=== PATIENT | female | born 1985 | race Caucasian/White ===

== ENCOUNTER 2021-10-18 08:49 | Outpatient (CLI) | payer BC, SELFPAY ==
[2021-10-19 08:12] LABS: SARS PCR* Negative SARS-CoV-2 (Negative)
== END 2021-10-18 08:50 | disposition home or self-care (01) ==
LOC: FBOREF 08:49
PROVIDERS: PCP Family Medicine; Visit Provider Family Medicine
DX: Z20.822 Contact with and (suspected) exposure to COVID-19 (principal); R05.9 Cough, unspecified; R52 Pain, unspecified; R53.83 Other fatigue
CPT/HCPCS: 87635

== ENCOUNTER 2021-11-28 08:32 | Emergency (ER) | payer BC, SELFPAY ==
[2021-11-28 08:37] VITALS: BP 116/76; PULSE 97; RESP 18; TEMP 36.8; O2SAT 10; BMI 20.6
--- NOTE | 2021-11-28 08:40 | CRLHL7_ITS ---
For Patients: As a result of the Century Cures Act, medical imaging exams and procedure reports are released immediately into your electronic medical record. You may view this report before your referring provider. If you have questions, please contact your health care provider. Indication: Bleeding in the setting of a first-trimester Technique: Sonography was performed. The study was performed transabdominally. Comparison: None Findings: There is a single live intrauterine gestation. Based on a crown-rump length measurement of 7 millimeters, the mean gestational age is 6 weeks and 4 days. Estimated date of delivery is 07/20/2022. heart rate is 120 beats per minute which is normal for this gestational age. A yolk sac is noted measuring 2.6 millimeters. The gestational sac size is 2 centimeters average. There are 2 subchorionic hemorrhages. One measures 2.1 x 0.7 x 2.4 centimeters and another measures 1.0 x 0.7 x 1.8 centimeters. The right ovary measures 4.7 x 2.6 x 2.7 centimeters. The left ovary measures 4.2 x 3.2 x 3.1 centimeters per there is a corpus luteum cyst of in the right ovary measuring 2.4 x 2.7 x 2.6 centimeters. Impression: 1. There is a single living intrauterine at 6 weeks and 4 days with an ultrasound estimated date of delivery of 07/20/2022. 2. There are 2 subchorionic hemorrhages/implantation bleeds. One measures 2.1 x 0.7 x 2.4 centimeters and another measures 1.0 x 0.7 x 1.8 centimeters. 3. Corpus luteum cyst of in the right ovary measuring 2.4 x 2.7 x 2.6 centimeters Dictated by Tay Duke MD @ 11/28/2021 10:04:18 AM (Electronically Signed)
--- NOTE | 2021-11-28 08:43 | ED.GENADULT ---
HPI - General Adult General Time Seen by Provider: 08:44 Date Seen: 11/28/21 Chief complaint: Vaginal Bleeding Stated complaint: 7 Weeks /bleeding Time Seen by Provider: 11/28/21 08:39 Source: patient Mode of arrival: ambulatory Limitations: no limitations History of Present Illness HPI narrative: 36-year-old at 7+3 weeks by last menstrual period of October 07, 2021 who presents today with vaginal bleeding. Positive test 2 weeks ago, 1st visit scheduled for next week, no confirmed intrauterine at this point. Started having bleeding last night, less than a period and described as spotting, with more blood and clots when she sits. Some lower abdominal cramping as well. She also describes upper abdominal pain which is been going on for 2 weeks. This is been fairly constant, worse with eating and drinking. She has taken Tums and Pepto for this with no improvement. No fever chills, no vomiting, no vaginal discharge other than her bleeding, urinary symptoms. Related Data Home Medications Medication Instructions Recorded Confirmed adapalene 0.3 % topical gel with 1 applic topical QPM 09/20/21 11/28/21 pump (Differin) tizanidine 4 mg capsule 4 mg PO .QHS PRN 09/20/21 11/28/21 tramadol 50 mg tablet 50 mg PO Q6H PRN 09/20/21 11/28/21 tretinoin 0.025 % topical gel 1 applic topical .Bedtime 09/30/21 11/28/21 clindamycin phosphate 1 % topical 1 applic topical 10/18/21 11/16/21 solution vitamin 1 tab PO QDAY 10/18/21 11/28/21 no.76-iron,carbonyl 29 mg iron-folic acid 1 mg tablet (Prenatabs Rx) gabapentin 600 mg tablet 1,200 mg PO TID 11/16/21 11/28/21 Previous Rx's Medication Instructions Recorded bupropion HCl 150 mg 24 hr tablet, 150 mg PO QAM #30 tabs 10/18/21 extended release (Wellbutrin XL) bupropion HCl 300 mg 24 hr tablet, 300 mg PO QAM #30 tabs 10/18/21 extended release dextroamphetamine-amphetamine 15 15 mg PO QDAY #30 tabs 10/18/21 mg tablet (Adderall) duloxetine 60 mg capsule,delayed 60 mg PO QDAY #30 caps 10/18/21 release (Cymbalta) lisdexamfetamine 70 mg capsule 70 mg PO QAM #30 caps 10/18/21 (Vyvanse) lorazepam 1 mg tablet 1 mg PO BID PRN anxiety #60 tabs 10/18/21 folic acid 1 mg tablet 4 mg PO QDAY #120 tabs 11/16/21 sucralfate 1 gram tablet (Carafate) 1 g PO QID #60 tabs 11/28/21 Allergies Allergy/AdvReac Type Severity Reaction Status Date / Time morphine Allergy Unknown Verified 11/28/21 08:42 Review of Systems Status of ROS: Reports: 10 or more systems reviewed and unremarkable except as noted in History and below [employer] [facility] Medical History (Updated 11/28/21 @ 10:25 by James Gomez MD) ADHD, predominantly inattentive type Borderline personality disorder Chronic low back pain Generalized anxiety disorder (06/25/15) History of abnormal cervical Papanicolaou smear (2009) History of alcohol dependence 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) Rosacea Suicide attempt by multiple drug overdose (07/22/15) Surgical History (Updated 09/30/21 @ 13:00 by Gretta Sampson) History of 2 sections History of dilation and curettage (2003) History of lumbar discectomy (01/07/18) History of lumbar fusion (12/18/18) Status post epidural steroid injection Status post lumbar spinal fusion Family History (Updated 09/30/21 @ 13:03 by Gretta Sampson) Mother Breast cancer Type 2 diabetes mellitus Family/Other Colon cancer Other Clotting disorder Factor V deficiency Social History (Updated 10/18/21 @ 19:55 by Luis A Lewis MD) Narrative: Single, 2 kids, senior living, non-smoker, sober, former alcoholic Smoking Status: Never smoker Do you use any of these nicotine containing products: None Second hand tobacco smoke exposure: No How often do you have a drink containing alcohol: never How often do you have six or more drinks on one occasion: Never AUDIT-C Alcohol total score: 0 Non-prescribed substance use: denies use Little interest or pleasure in doing things: nearly every day Feeling down, depressed, or hopeless: more than half the days service: No Exam Narrative: Exam Narrative: General: Well-developed and well-nourished, no acute distress Head: Atraumatic and normocephalic Eyes: Pupils are equal reactive, extraocular motions intact, conjunctiva clear ENT: External nose and ears are normal, posterior pharynx without erythema or exudate Neck: No midline cervical tenderness, full spontaneous range of motion the neck, trachea midline, no adenopathy Heart: Regular rate and rhythm no murmurs or thrills Lungs: Clear to auscultation bilaterally without wheezes or crackles Abdomen: Epigastric and right upper quadrant tenderness, no pelvic or lower abdominal tenderness Musculoskeletal: No tenderness, deformity, or edema Neurologic: Awake, alert, and oriented x3, no gross focal neurologic deficits, cranial nerves intact as tested Psych: Mood and affect are appropriate Skin: No rashes Const: Vital Signs, click to edit/add: Vital Signs - 24 hr 11/28/21 08:37 11/28/21 09:17 Temperature 98.3 F Pulse Rate [Right Pulse Oximeter] 97 87 Respiratory Rate 18 Blood Pressure [Ri ght Upper Arm] 116/76 120/78 Pulse Oximetry 10 L 100 Oxygen Delivery Me thod Room Air Room Air Course Course Hospital Course: Patient seen and examined, prior records are reviewed. Differential diagnosis includes but not limited gastritis, cholelithiasis, cholecystitis, biliary colic, pancreatitis, miscarriage, subchorionic hemorrhage. Meds with 2 weeks of upper abdominal pain, worse with eating, and found to have epigastric and right upper quadrant tenderness on exam. This could represent gastritis, gastric ulcer, or biliary source. Labs and ultrasound ordered. Additionally, abdominal cramping and bleeding trimester. Patient is vitally stable with no lightheadedness or dyspnea to suggest severe anemia. Description of bleeding is spotting with passing of clots on the toilet. Labs and OB US ordered. Reevaluation(s) Reevaluation #1: Quantitative hCG is pending, CBCs reassuring. Per food science technician, intrauterine with cardiac motion, to areas of subchorionic hemorrhage noted. Right upper quadrant ultrasound is normal. Lipase and hepatic panel are normal. Patient will be discharged with expectant management instructions for threatened miscarriage, also be started on Carafate for GI complaints, follow-up with OB provider in 48 hours. Time: 09:49 Reevaluation #2: Spoke with blood bank, patient's blood type is A negative. Discussed care with Dr. Carreon advanced research programs director who agrees with plan for RhoGAM. Patient has a follow-up appointment in 1 week and she should keep that. Discussed risk of miscarriage, ongoing bleeding, and return to emergency department instructions. Patient is stable for discharge. Time: 10:18 Vital Signs Vital signs: Initial Vital Signs Temperature 98.3 F 11/28/21 08:37 Temperature Source Temporal Artery Scan 11/28/21 08:37 Pulse Rate 97 11/28/21 08:37 Respiratory Rate 18 11/28/21 08:37 Blood Pressure 116/76 11/28/21 08:37 Blood Pressure Mean 89 11/28/21 08:37 Blood Pressure Position Sitting 11/28/21 08:37 Pulse Oximetry 10 L 11/28/21 08:37 Oxygen Delivery Method 11/28/21 08:37 Vital Signs Temperature 98.3 F 11/28/21 08:37 Pulse Rate 97 11/28/21 08:37 Respiratory Rate 18 11/28/21 08:37 Blood Pressure 116/76 11/28/21 08:37 Pulse Oximetry 10 L 11/28/21 08:37 Oxygen Delivery Method 11/28/21 08:37 Temperature 98.3 F 11/28/21 08:37 Pulse Rate 87 11/28/21 09:17 Respiratory Rate 18 11/28/21 08:37 Blood Pressure 120/78 11/28/21 09:17 Pulse Oximetry 100 11/28/21 09:17 Oxygen Delivery Method 11/28/21 09:17 Medical Decision Making Medical Records Medical records reviewed: Yes I reviewed the patient's medical records Lab Data Lab results reviewed: Yes I reviewed the patient's lab results Labs: Lab Results 11/28/21 11/28/21 11/28/21 Range/Units 08:57 08:57 08:57 WBC 8.31 (4.50-11.00) K/uL RBC 4.21 (4.00-5.20) m/uL Hgb 12.6 (12.0-16.0) gm/dL Hct 36.7 (33.0-51.0) % MCV 87 (80-100) fL MCH 30 (26-34) pg MCHC 34 (32-36) gm/dL RDW Coeff of Tien 12.1 (11.5-15.5) % Plt Count 252 (140-440) K/uL Neut % (Auto) 74.1 H (42.0-72.0) % Lymph % (Auto) 19.4 L (20-44) % [place] % (Auto) 5.3 (0.0-11.0) % Eos % (Auto) 0.7 (0.0-7.0) % Baso % (Auto) 0.4 (0.0-3.0) % Neut # (Auto) 6.20 (1.7-7.0) K/uL Lymph # (Auto) 1.60 (0.90-2.90) K/uL [place] # (Auto) 0.40 (0.00-0.90) K/UL Eos # (Auto) 0.06 (0.00-0.50) K/uL Baso # (Auto) 0.03 (0.00-0.30) K/uL Abs Immat Gran (auto) 0.01 (0.00-0.30) K/uL Total Bilirubin (0.1-1.5) mg/dL Direct Bilirubin (0.0-0.5) mg/dL AST (12-35) U/L ALT (4-35) U/L Alkaline Phosphatase (40-150) U/L Total Protein (6.0-8.3) g/dL Albumin (3.3-5.0) g/dL Lipase (23-300) U/L HCG, Quant 12011.00 mIU/mL Blood Type A Negative 11/28/21 Range/Units 08:57 WBC (4.50-11.00) K/uL RBC (4.00-5.20) m/uL Hgb (12.0-16.0) gm/dL Hct (33.0-51.0) % MCV (80-100) fL MCH (26-34) pg MCHC (32-36) gm/dL RDW Coeff of Tien (11.5-15.5) % Plt Count (140-440) K/uL Neut % (Auto) (42.0-72.0) % Lymph % (Auto) (20-44) % [place] % (Auto) (0.0-11.0) % Eos % (Auto) (0.0-7.0) % Baso % (Auto) (0.0-3.0) % Neut # (Auto) (1.7-7.0) K/uL Lymph # (Auto) (0.90-2.90) K/uL [place] # (Auto) (0.00-0.90) K/UL Eos # (Auto) (0.00-0.50) K/uL Baso # (Auto) (0.00-0.30) K/uL Abs Immat Gran (auto) (0.00-0.30) K/uL Total Bilirubin 0.3 (0.1-1.5) mg/dL Direct Bilirubin 0.0 (0.0-0.5) mg/dL AST 21 (12-35) U/L ALT 15 (4-35) U/L Alkaline Phosphatase 46 (40-150) U/L Total Protein 7.1 (6.0-8.3) g/dL Albumin 4.6 (3.3-5.0) g/dL Lipase 42 (23-300) U/L HCG, Quant mIU/mL Blood Type Imaging Data US OB: Attestation: I have reviewed the pertinent imaging results. My impression: Intrauterine Radiologist's impression: 1. There is a single living intrauterine at 6 weeks and 4 days with an ultrasound estimated date of delivery of 07/20/2022. 2. There are 2 subchorionic hemorrhages/implantation bleeds. One measures 2.1 x 0.7 x 2.4 centimeters and another measures 1.0 x 0.7 x 1.8 centimeters. 3. Corpus luteum cyst of in the right ovary measuring 2.4 x 2.7 x 2.6 centimeters US - abdomen: Attestation: I have reviewed the pertinent imaging results. Radiologist's impression: Impression: Normal examination Discharge Plan Discharge Clinical Impression: Grand multiparity, Intrauterine , Subchorionic hematoma in first trimester, Gastritis Patient Disposition: Home, Self-Care Condition: Stable Instructions: Gastritis (DC), Subchorionic Hemorrhage (ED), at 7 to 10 Weeks (ED) Additional Instructions: Warm packs the abdomen as needed for discomfort. You are likely to continue have some bleeding. Keep your appointment on December 05 for follow-up. Activity Level: No Restrictions Discharge Diet: Regular Prescriptions: New sucralfate [Carafate] 1 gram tablet 1 g PO QID Qty: 60 0RF No Action Prenatabs Rx 29 mg iron- 1 mg tablet 1 tab PO QDAY clindamycin phosphate 1 % solution 1 applic topical lorazepam 1 mg tablet 1 mg PO BID PRN (Reason: anxiety) Qty: 60 0RF bupropion HCl 300 mg tablet extended release 24 hr 300 mg PO QAM Qty: 30 5RF Rx Instructions: Total dose 450 mg daily bupropion HCl [Wellbutrin XL] 150 mg tablet extended release 24 hr 150 mg PO QAM Qty: 30 5RF Rx Instructions: Total dose 450 mg daily Vyvanse 70 mg capsule 70 mg PO QAM Qty: 30 0RF dextroamphetamine-amphetamine [Adderall] 15 mg tablet 15 mg PO QDAY Qty: 30 0RF Rx Instructions: Take at 1 pm duloxetine [Cymbalta] 60 mg capsule,delayed release(DR/EC) 60 mg PO QDAY Qty: 30 5RF tretinoin 0.025 % gel 1 applic topical .Bedtime folic acid 1 mg tablet 4 mg PO QDAY Qty: 120 3RF adapalene [Differin] 0.3 % gel with pump 1 applic topical QPM tramadol 50 mg tablet 50 mg PO Q6H PRN Hold Instructions: PG tizanidine 4 mg capsule 4 mg PO .QHS PRN gabapentin 600 mg tablet 1,200 mg PO TID Rx Instructions: One in the AM, One every PM and One at bedtime Follow Up/Referrals: Luis A Lewis MD [Primary Care Provider] - Stand Alone Forms: [facility] Info Inst[facility]
--- NOTE | 2021-11-28 08:54 | CRLHL7_ITS ---
For Patients: As a result of the Century Cures Act, medical imaging exams and procedure reports are released immediately into your electronic medical record. You may view this report before your referring provider. If you have questions, please contact your health care provider. Indication: Epigastric pain Technique: Sonography of the abdomen was performed limited to the structures discussed below Comparison: No prior studies of this area available for comparison Findings: The liver is normal in size and echogenicity without focal mass. No biliary ductal dilatation. No perihepatic ascites. The gallbladder is normal in appearance. Wall thickness is 1 millimeter. No sonographic Caicedo`s sign. No pericholecystic fluid. No sludge or calculi. The common duct measures 2 millimeters which is normal The pancreas as visualized appears normal. The right kidney was normal in size and appearance measuring 0.6 x 4.2 x 4.9 centimeters. The proximal aorta appears normal Impression: Normal examination Dictated by Tay Duke MD @ 11/28/2021 10:06:17 AM (Electronically Signed)
[2021-11-28 09:02] LABS: Basophils Absolute Auto 0.03 K/uL (0.00-0.30); Basophils Percent Auto 0.4 % (0.0-3.0); Eosinophils Absolute Auto 0.06 K/uL (0.00-0.50); Eosinophils Percent Auto 0.7 % (0.0-7.0); Hematocrit 36.7 % (33.0-51.0); Hemoglobin* 12.6 gm/dL (12.0-16.0); Immature Granulocytes Abs Auto 0.01 K/uL (0.00-0.30); Lymphocytes Percent Auto 19.4 % (20-44); Mean Corpuscular HGB Conc 34 gm/dL (32-36); Mean Corpuscular Hemoglobin 30 pg (26-34); Mean Corpuscular Volume 87 fL (80-100); Monocytes Percent Auto 5.3 % (0.0-11.0); Neutrophils Percent Auto 74.1 % (42.0-72.0); Platelet Count* 252 K/uL (140-440); RDW Coefficient of Variation % 12.1 % (11.5-15.5); Red Blood Count 4.21 m/uL (4.00-5.20); White Blood Count* 8.31 K/uL (4.50-11.00)
[2021-11-28 09:04] LABS: Slide Review Reflex No
[2021-11-28] MEDS: LACTATED RINGERS 1000 ML 1,000 ML IV (09:12)
--- OUTSIDE RECORDS SUMMARY | 2021-11-28 09:13 | XMS_ITS | Encounter Summary ---
:[address] [facility] Address [address] [place] [address] Care Team Providers Name Role Phone Jana Granda M.D. Primary Care Provider Encounter Details Date Type Department Care Team Description 04/26/2020 Patient Self-Triage [facility] Symptom Width Stripper, Provider Social History Tobacco Use Types Packs/Day Years Used Date Smoking Tobacco: Never Smokeless Tobacco: Never Alcohol Use Standard Drinks/Week Comments Not Currently 3 (1 standard drink = 0.6 oz pure alcoho l) Last use several months ago Alcohol Habits Answer Date Recorded How often do you have a drink containing alcohol? Not asked 01/31/2019 How many drinks containing alcohol do you have on a typical Not asked 01/31/2019 day when you are drinking? How often do you have six or more drinks on one occasion? Ne aurelio 07/19/2018 Social Isolation Answer Date Recorded In a typical week, how many times do you talk on Once a week 11/27/2019 the phone with family, friends, or neighbors? How often do you get together with friends or Once a week 11/27/2019 relatives? How often do you attend sikhism or sikhism Never 01/31/2019 services? Do you belong to any clubs or organizations such as No 01/31/2019 sikhism groups, unions, fraternal or athletic groups, or school groups? How often do you attend meetings of the clubs or Never 01/31/2019 organizations you belong to? Are you now , , , , Living wi th partner 11/27/2019 never or living with a partner? Physical Activity Answer Date Recorded On average, how many days per week do you engage in moderate to 1 day 11/27/2019 strenuous exercise (like walking fast, running, jogging, dancing, swimming, biking, or other activities that cause a light or heavy sweat)? On average, how many minutes do you engage in exercise at th is 10 min 11/27/2019 level? Stress Answer Date Recorded Do you feel stress - tense, restless, nervous, or To some ex tent 11/27/2019 anxious, or unable to sleep at night because your mind is troubled all the time - these days? Financial Resource Strain Answer Date Recorded How hard is it for you to pay for the very basics like Somew hat hard 11/27/2019 food, housing, medical care, and heating? Intimate Partner Violence Answer Date Recorded Within the last year, have you been afraid of your partner o r No 11/27/2019 ex-partner? Within the last year, have you been humiliated or emotionall y No 11/27/2019 abused in other ways by your partner or ex-partner? Within the last year, have you been kicked, hit, slapped, or No 07/19/2018 otherwise physically hurt by your partner or ex-partner? Within the last year, have you been raped or forced to have any No 07/19/2018 kind of sexual activity by your partner or ex-partner? Food Insecurity Answer Date Recorded Within the past 12 months, you worried that your food would Never true 11/27/2019 run out before you got money to buy more. Within the past 12 months, the food you bought just didn't N ever true 11/27/2019 last and you didn't have money to get more. Transportation Needs Answer Date Recorded In the past 12 months, has lack of transportation kept you f rom No 11/27/2019 medical appointments or from getting medications? In the past 12 months, has lack of transportation kept you f rom No 11/27/2019 meetings, work, or getting things needed for daily living? Education Answer Date Recorded What is the highest level of school you have Some college, n o degree 07/19/2018 completed or the highest degree you have received? 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 PCP - General 03/25/[address] [place], [place] [address] [phone] documented as of this encounter
--- OUTSIDE RECORDS SUMMARY | 2021-11-28 09:13 | XMS_ITS | Encounter Summary ---
:1985 Author Organization [facility] Address [address] [place] [address] Care Team Providers Name Role Phone Marisel Ferrer M.D. Primary Care Provider [phone] Reason for Visit Reason Onset Date Comments Outpatient COVID-19 Testing 01/10/2020 Encounter Details Date Type Department Care Team Description 01/10/2020 External Outreach Department of Cor[facility] Mason Infect ion [facility] Internal Medicine in J, D.O. Respiratory (Primary [place], [place] [address] Dx) [address] [place] [phone] Social History Tobacco Use Types Packs/Day Years [...] 11/27/2019 relatives? How often do you attend congregational or oriental orthodox Never 01/31/2019 services? Do you belong to any clubs or organizations such as No 01/31/2019 congregational groups, unions, fraternal or athletic groups, or [...] to pay for the very basics like Ensight[place] hat hard 11/27/2019 food, housing, medical care, [...] at Date Recorded Female 01/11/2018 2:20 PM BRICK [facility] documented as of this encounter Progress Notes Maria R Sorenson R.N. - 01/10/2020 11:59 AM CST Encounter created for the drive-through COVID-19 testing. K [facility] documented in this encounter Plan of Treatment Not on filedocumented as of this encounter Procedures Procedure Name Priority Date/Time Associated Diagnosis Comme nts SARS CORONAVIRUS-2 Routine 01/10/2020 1:08 PM Infection Upper Results for this RNA, V [facility] Respiratory procedure are i n the results section. documented in this encounter Results SARS Coronavirus-2 RNA, V Symptomatic (01/10/2020 1:08 PM BRICK [facility]) [facility] gist Method Time Signature SARS-CoV-2 Swab, 01/11/2020 [facility] Specimen Nasopharynx 4:26 PM BR[facility] Source SARS CoV-2 Undetected Undetected 01/11/2020 [facility]TO RNA, TMA 4:26 PM [facility] Comment: SARS-CoV-2 RNA absent. This result does not rule out COVID-19 in the patient, as the sensitivity of the test depends o n the timing of the specimen collection and the quality of the specim en. Result should be correlated with patient's history and clinical presentat ion. ----ADDITIONAL INFORMATION---- This test is performed using the Aptima SARS-CoV-2 assay ([employer] which has received Emergency Use Authori zation (EUA) by the U.S. Food and Drug Administration. Fact sheets for this Emergency Use Autho rization (EUA) assay can be found at the following links: For Healthcare Providers: https://www.fd a.gov/media/352698/download For Patients: https://www.fda.gov/media/ 051320/download Specimen Anatomical Collection Method Collection Time Receive d Time (Source) Location / / Volume Laterality Varies 01/10/2020 1:08 PM 0 8:37 (Nasopharynx) [facility] AM BR[facility] Mason D.O. LAB MICROBIOLOGY - GENERAL O RDERABLES Performing Organization Address City/State/ZIP Code Phon e Number [facility] [address] [place] [id number] [place] [address] [address] documented in this encounter Visit Diagnoses Diagnosis Infection Upper Respiratory - Primary documented in this encounter Additional Health Concerns Infection Onset Date Last Indicated Resolved Time COVID19 Pending 01/10/2020 01/10/2020 01/11/2020 4:27 PM BRICK [facility] Assessment Noted Time PHQ-9 Depression Total Score: 16 12/09/2019 10:25 AM C DT documented as of this encounter Care Teams Clinical Education Coordinator Relationship Specialty Start Date End Date Marisel Ferrer M.D. PCP - General Family Medicine 07/11/18 03/24/[address] [id number] documented as of this encounter
--- OUTSIDE RECORDS SUMMARY | 2021-11-28 09:13 | XMS_ITS | Encounter Summary ---
:1985 Author Organization [facility] Address [address] [place] [address] Care Team Providers Name Role Phone Jana Granda M.D. Primary Care Provider Reason for Visit Reason Comments Med Refill Encounter Details Date Type Department Care Team Description 01/23/2021 Refill Department of Obstetrics and Joy Lee, Med Refill Gynecology in [place] [address] [address] [place] [address] [phone] Social History Tobacco Use Types Packs/Day Years [...] 11/27/2019 relatives? How often do you attend orthodox or anabaptist Never 01/31/2019 services? Do you belong to any clubs or organizations such as No 01/31/2019 orthodox groups, unions, fraternal or athletic groups, or school groups? How often do you attend meetings of the clubs or Never 01/31/2019 organizations you belong to? Are you now , , , , Living wi partner 11/27/2019 never or living with a partner? Physical Activity Answer Date Recorded On average, how many days per week do you engage in moderate to 1 day 11/27/2019 strenuous exercise (like walking fast, running, jogging, dancing, swimming, biking, or other activities that cause a light or heavy sweat)? On average, how many minutes do you engage in exercise at is 10 min 11/27/2019 level? Stress Answer Date Recorded Do you feel stress - tense, restless, nervous, or To some ex tent 11/27/2019 anxious, or unable to sleep at night because your mind is troubled all the time - these days? 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 PCP - General 03/25/[address] [place] [address] [place] [phone] documented as of this encounter
--- OUTSIDE RECORDS SUMMARY | 2021-11-28 09:13 | XMS_ITS | Clinical Summary ---
:1985 Author Organization [facility] Address [address] [place] [address] Care Team Providers Name Role Phone Jana Granda M.D. Primary Care Provider Source Comments Patient records contain information from all sites at [facility]. For routine questions regarding patient records, call [phone] during business hours, M-F 8:00 AM - 5:00 PM Central Time. Record requests for emergency care only can be directed to [phone] at any time.[facility] Allergies Active Allergy Reactions Severity Noted Date Comments Morphine Other (see comments), 04/17/2013 Facial swelling and Edema reddness Medications Medication Sig Dispensed Refills Start Date End Date Status FLUoxetine (PROzac) Take 1 capsule by 0 06/18/2017 Active 20 mg capsule mouth every AM after solid food gabapentin Take as directed if 90 capsule 1 01/16/2018 Active (NEURONTIN) 300 mg needed for nerve capsule pain. Start with 1 cap daily in evening. Each 3 days may increase dose if needed: to twice daily (noon and evening), then after 3 days to 3 times daily. Decrease dose, if needed, gradually every 3 days in the same manner. tiZANidine 1 tab up to three 0 03/20/2017 Active (ZANAFLEX) 2 mg times daily, use tablet mostly at night for muscle relaxer. May make you drowsy. traMADol (ULTRAM) 50 Take 50 mg by mouth 1 9 Active mg tablet every 6 (six) hours as needed. for pain Vyvanse 40 mg Take 40 mg by mouth 0 01/03/2019 Active capsule every morning. Take 1 tablet by 0 Act roseline vitamin-iron mouth daily. fumarate-FA 28 mg iron- 800 mcg per tablet gabapentin 1,800 mg 3 (three) 0 01/28/2019 Active (NEURONTIN) 300 mg times a day. capsule buPROPion XL 0 02/22/2019 Active (WELLBUTRIN XL) 300 mg 24 hr tablet clindamycin-benzoyl Apply topically 2 50 g 11 03/06/2019 Active peroxide (BENZACLIN) (two) times a day. 1-5 % gel Additional Information Patient not taking. Reported on 12/09/2019 Trinate 28 mg iron- 1 mg Take 1 tablet by mouth 90 tablet 3 Active tablet once daily Active Problems Patient Care Coordination Note Formatting of this note might be differe nt from the original. ALFREDO on file for: Spouse Abdias Villa ra Cell #: Problem Noted Date Examination Other Normal Second Tri jacquieter 12/09/2019 Overview: 1st trimester OB education via phone in the near future with the OB educator. Second and 3rd trimester education at 28 week visit. Gonorrhea and chlamydia and CBC already checked and normal. She will return for labs if COVID testing is negative. Nests supplies provided. She will need a Doppler at her 20 week visit. Infection Upper Respiratory 12/09/2019 Overview: Nasal congestion and postnasal drainage as well as sinus headache. Likely related to swelling of the mucous membranes due to or possible seasonal allergies. No cough, shortness of breath, feve r or sore throat. Will send for COVID te sting as we have seen cases of COVID positivity with only nasal/sinus symptoms. Threatened 11/27/2019 Unspecified Blood Type Rhesus Negative 02/25/2019 Overview: S/p rhogam early in . Plan RhoG AM at 28 weeks and in the period if the baby is Rh positive. Threatened 02/14/2019 Overview: No bleeding yesterday or today. US today shows a viable with appropriate growth. She is Rh negative and has received 2 doses of rhogam already with this . Pain Foot Left 01/31/2019 Overview: Was on Tramadol and Tizanidine until 01/2019 for this. Also stopped Neurontin. This is stable and unchanged. Attention Deficit With Hyperactivity Disorder 02/01/20 19 Overview: Was on Vyvanse and stopped that with the . Has noticed a difference. If she would like to get back on medication, I recommend Adderall if treatment is needed in . She will discuss this with her provider at [facility]. Insomnia 01/31/2019 Overview: She continues to struggle with sleep in . She has night sweats but wakes up very cold. Encouraged to discuss sleeping issues with her mental health provider. Nausea And Vomiting 01/31/2019 Overview: Started yesterday, manageable. Depression Major 05/07/2017 Overview: On Wellbutrin 300 mg SR daily. She stopp ed Prozac 20 mg daily. She has had no thoughts of harming herself or anyone else. She participated in DBT through [facility] in [place], but that stop ped with onset of COVID. She has a provi daren that she sees regularly through [facility]. She is scheduled to follow with her every other month, and she is able to adjust her meds. PHQ-9 score elevated at 16 today. Last Assessment & Plan: Considering this missed , we kam l follow her mood symptoms closely as she is at risk of exacerbation. Anxiety Generalized Disorder 06/25/2015 Overview: Wellbutrin 300 mg SR daily. She stopped prozac 20 mg daily. PHQ-9 score 16 and KEL 7 score 16 today. Plan close follow up of this with the provider she sees through [facility]. Pain Low Back Chronic 12/24/2014 Overview: S/p spinal fusion in December 2018. Back pain improved post surgery, but it has been worse during . She was seeing the physical therapist, symptoms had improved until , and they have w orsened since then. She stopped neuronin . Referral to [facility] sent. 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 ~ March 2016: S1 TF epidural steroid injection by Dr. Jacobsen. Borderline Personality Disorder 12/05/2011 Encounters Date Type Specialty Care Team Description 09/13/2021 Orders Only Jnaa Granda M.D. Screen ing Lipid from Last 3 Months Immunizations Name Administration Dates Next Due 4vHPV (discontinued) 06/21/2009, 12/23/2008, 09/05/2007 DT, Pediatric 03/29/2006 HepB Adult 12/18/2016 HepB, Unspecified 07/27/2006, 02/26/2006, 02/26/2006 Influenza, Seasonal, Injectable 10/27/2011, 01/30/2011, 01/12, 03/15/2007 Influenza, Unspecified 03/15/2007 MMR 05/25/1997 PPD Test 08/23/2020 Rho (D) Immune Globulin (IM only) 01/26/2012, 03/18/2010 Td (Adult), adsorbed 05/25/1997 Tdap 06/30/2011 Tuberculin Skin Test, Unspecified 07/24/2011 Family History Medical History Relation Name Comments Alcoholism NOS Father COPD Father Colon cancer Maternal Grandfather Tank Arthritis Maternal Grandmother Kasandra Heart disease Maternal Grandmother Kasandra Osteoporosis Maternal Grandmother Kasandra Psychiatric disorder Maternal Grandmother Kasandra Asthma Mother Selena Breast cancer Mother Selena Depression Mother Selena Diabetes Mother Selena Hyperlipidemia Mother Selena Hypertension Mother Selena Renal failure Mother Selena Seizures Mother Selena Healthy adult Sister Relation Name Status Comments Father Maternal Grandfather Tank Maternal Grandmother Kasandra Mother Selena Alive Sister Social History Tobacco Use Types Packs/Day Years [...] 11/27/2019 relatives? How often do you attend scientology or voodoo Never 01/31/2019 services? 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 Last Filed Vital Signs Vital Sign Reading Time Taken Comments Blood Pressure 100/60 12/09/2019 10:17 AM CDT Pulse 80 12/09/2019 10:17 AM CDT Temperature 37.1 ??C (98.8 ??F) 11/27/2019 9:34 AM CDT Respiratory Rate 20 12/09/2019 10:17 AM CDT Oxygen Saturation 98% 04/17/2018 1:25 PM LICENSED CLINICAL PSYCHOLOGIST Inhaled Oxygen Concentration - - Weight 55.4 kg (122 lb 3.9 oz) 01/14/2020 11:02 AM LICENSED CLINICAL PSYCHOLOGIST Height 162 cm (5' 3.78) 12/09/2019 10:17 AM CDT Body Mass Index 21.13 12/09/2019 10:17 AM CDT Plan of Treatment Health Maintenance Due Date Last Done Comments Hepatitis C Screening 1985 Lipid (Cholesterol) 12/26/2019 12/25/2014 Screening COVID-19 Vaccine (2 - 01/06/2021 12/16/2020 Pfizer series) Depression Screening 02/12/2021 (Annual PHQ-2) DTaP,Tdap,and Td Vaccines 06/29/2021 06/30/2011, 03/29/2006 , (4 - Td or Tdap) 05/25/1997 Influenza Vaccine (#1) 2021 10/27/2011, 01/30/2011, 01/24/2010, Additional history exists Cervical Cancer Screening 06/29/2022 06/29/2017, 12/24/2014 , 08/25/2009 HIV Screening Completed 08/14/2013 Hepatitis B Vaccines Completed 12/18/2016, 07/27/2006, 02/26/2006, Additional history exists Pneumococcal vaccine (0-64 Aged Out No lo nger eligible years) based on patient 's age to complete this topic Insurance Payer Benefit Plan Subscriber ID Effective Dates Phone Address Type / Group [facility] [id number] 2021-Presen [phone] [address] Medicaid HMO t 5 [place] [address] Care Teams Associate Professor Of Library Media Relationship Specialty Start Date End Date Jana Granda M.D. PCP - General 03/25/[address] [place], [place] [address], [place] [address]
--- OUTSIDE RECORDS SUMMARY | 2021-11-28 09:13 | XMS_ITS | Encounter Summary ---
:1985 Author Organization [facility] Address [address] [place] [address] Care Team Providers Name Role Phone Jana Granda M.D. Primary Care Provider Reason for Visit Reason Comments Med Refill Encounter Details Date Type Department Care Team Description 01/11/2021 Refill Department of Obstetrics and Joy Lee, Med Refill Gynecology in [place] [address] [address] [facility] [place] [address] [phone] Social History Tobacco Use Types Packs/Day Years [...] 11/27/2019 relatives? How often do you attend alevism or restoration Never 01/31/2019 services? 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 - 01/13/2021 10:57 AM ORDER BUILDER Patient has not been seen recently and likely does not still need to be on iron. We can reassess herblood count and iron levels if she feels like this is something that needs, but her anemia was related to and delivery. R BUILDER documented in this encounter Plan of Treatment Not on filedocumented as of this encounter Visit Diagnoses Not on filedocumented in this encounter Additional Health Concerns Assessment Noted Time PHQ-9 Depression Total Score: 16 12/09/2019 10:25 AM C DT documented as of this encounter Care Teams Retail Attendant Relationship Specialty Start Date End Date Jana Granda M.D. PCP - General 03/25/[address] [place] [address] [place] [phone] documented as of this encounter
--- OUTSIDE RECORDS SUMMARY | 2021-11-28 09:13 | XMS_ITS | Encounter Summary ---
:[address] [facility] Address [address] [place] [address] Care Team Providers Name Role Phone Jana Granda M.D. Primary Care Provider Reason for Visit Reason Onset Date Comments Testing For Upper Respiratory Virus Symptoms 11/12/2020 Encounter Details Date Type Department Care Team Description 11/12/2020 External Outreach Department of [facility] Corbin Mason Contact With And Medicine, Juan Alberto Julian D.O. (Suspected) Exposure Building, in [address] To COVID-19 (Primary [place], [place] Dx) [address] [facility] [address] [place], [place] [phone] [address] (Work) [phone] Social History Tobacco Use Types Packs/Day Years [...] 11/27/2019 relatives? How often do you attend confucianist or yazdanism Never 01/31/2019 services? 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 - 11/12/2020 3:12 PM CDT Encounter created for symptomatic infectious disease screening with possible COVID, Influenza, RSV, and/or Group A Strep testing. documented in this encounter Plan of Treatment Not on filedocumented as of this encounter Procedures Procedure Name Priority Date/Time Associated Diagnosis Comme nts SARS CORONAVIRUS-2 Routine 11/13/2020 12:25 PM Contact With An d Results for this RNA, V CDT (Suspected) Exposure procedu re are in To COVID-19 the results section. documented in this encounter Results SARS Coronavirus-2 RNA, V Symptomatic (11/13/2020 12:25 PM CDT) [facility] Method Time Signature SARS-CoV-2 Swab, 11/14/2020 [facility] Specimen Nasopharynx 8:49 AM CDT Source SARS CoV-2 Undetected Undetected 11/14/2020 MKTO RNA, TMA 8:49 AM CDT Comment: SARS-CoV-2 RNA absent. This result does not rule out COVID-19 in the patient, as the sensitivity of the test depends o n the timing of the specimen collection and the quality of the specim en. Result should be correlated with patient's history and clinical presentat ion. ----ADDITIONAL INFORMATION---- This molecular amplification test was pe rformed using the Aptima SARS-CoV-2 assay ([employer] on the Soapetss tem under emergency use authorization (EUA) by the U.S. Food and Drug Administ ration. Fact sheets for this EUA assay can be fo und at the following links: For Healthcare Providers: https://www.fd a.gov/media/556325/download For Patients: https://www.fda.gov/media/ 840155/download Specimen Anatomical Collection Method Collection Time Receive d Time (Source) Location / / Volume Laterality Varies 11/13/2020 12:25 11/14/2020 (Nasopharynx) PM CDT 12:04 AM CDT Corbni Mason D.O. LAB MICROBIOLOGY - GENERAL O ZAHIRA Performing Organization Address City/State/[facility] Code Phon e Number [facility]- [address] [place] [address] [facility] [place] [address] System in [address] documented in this encounter Visit Diagnoses Diagnosis Contact With And (Suspected) Exposure To COVID-19 - Primary documented in this encounter Additional Health Concerns Infection Onset Date Last Indicated Resolved Time COVID19 Pending 11/12/2020 11/13/2020 11/14/2020 8:49 AM CDT Assessment Noted Time PHQ-9 Depression Total Score: 16 12/09/2019 10:25 AM C DT documented as of this encounter Care Teams Sr. Director Product Management Relationship Specialty Start Date End Date Jana Granda M.D. PCP - General 03/25/[address] [place] [address] [place] [phone] documented as of this encounter
--- OUTSIDE RECORDS SUMMARY | 2021-11-28 09:13 | XMS_ITS | Encounter Summary ---
:1985 Author Organization [facility] Address [address] [place] [address] Care Team Providers Name Role Phone Jana Granda M.D. Primary Care Provider Encounter Details Date Type Department Care Team Description 11/13/2020 Admin Visit Department of Family Medicine, [address] [address] [facility] [phone] Social History Tobacco Use Types Packs/Day Years [...] 11/27/2019 relatives? How often do you attend religion or baptism Never 01/31/2019 services? 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 PCP - General 03/25/[address] [place] [address] [place] [phone] documented as of this encounter
--- OUTSIDE RECORDS SUMMARY | 2021-11-28 09:13 | XMS_ITS | Encounter Summary ---
:1985 Author Organization [facility] Address [address] [place] [address] Care Team Providers Name Role Phone Marisel Ferrer M.D. Primary Care Provider [phone] Reason for Visit Appointment Request (Routine) - Closed Specialty Diagnoses / Procedures Referred By Contact Refer red To Contact Obstetrics and Gynecology Referral ID Status Reason Start Date Expiration Date Visits Requ ested Visits Authorized [id number] Closed 01/14/2020 01/13/2021 1 1 Encounter Details Date Type Department Care Team Description 01/14/2020 Office Visit Department of Gurmeet Casiano T hreatened Obstetrics and [place] (Primary Dx) Gynecology in [address] [place], [place] [address] [facility] [place] [address] [place], [place] [phone] [address] (Work) [phone] Social History Tobacco Use Types Packs/Day Years [...] 11/27/2019 relatives? How often do you attend judaism or evangelical Never 01/31/2019 services? Do you belong to any clubs or organizations such as No 01/31/2019 judaism groups, unions, fraternal or athletic groups, or [...] at Date Recorded Female 01/11/2018 2:20 PM VICE PRESIDENT PRECISION MARKET INSIGHTS documented as of this encounter Progress Notes Gurmeet Casiano Jr., M.D. - 01/14/2020 11:00 AM CST SUBJECTIVE CHIEF COMPLAINT/REASON FOR VISIT OB check. HISTORY OF PRESENT ILLNESS Wendi Odonnell is a 34 y.o. female at 14w0d gestation by LMP of 10/08/2019 who presents to the clinic for an OB check. She is concerned because she has not really felt over the last 2 weeks, our RN visit today they were unable to hear heart tones. No bleeding but she is having some cramping. No fevers. There are no further concerns at this time. CURRENT MEDICATIONS Current Outpatient Medications Medication Sig Dispense Refill ??? buPROPion XL (WELLBUTRIN XL) 300 mg 24 hr tablet ??? clindamycin-benzoyl peroxide (BENZACLIN) 1-5 % gel Apply topically 2 (two) times a day. (Patientnot taking: Reported on 12/09/2019 ) 50 g 11 ??? FLUoxetine (PROzac) 20 mg capsule Take 1 capsule by mouth every AM after solid food ??? folic acid 1 mg tablet Take 4 tablets (4 mg total) by mouth daily. 90 tablet 3 ??? gabapentin (NEURONTIN) 300 mg capsule Take as directed if needed for nerve pain. Start with 1 cap daily in evening. Each 3 days may increase dose if needed: to twice daily (noon and evening), then after 3 days to 3 times daily. Decrease dose, if needed, gradually every 3 days in the same manner. 90 capsule 1 ??? gabapentin (NEURONTIN) 300 mg capsule 1,800 mg 3 (three) times a day. ??? vit27,calcium/iron/FA (multivitamin/mineral-) tablet Take 1 tablet by mouth daily. 90 tablet 3 ??? vitamin-iron fumarate-FA 28 mg iron- 800 mcg per tablet Take 1 tablet by mouth daily. ??? tiZANidine (ZANAFLEX) 2 mg tablet 1 tab up to three times daily, use mostly at night for muscle relaxer. May make you drowsy. ??? traMADol (ULTRAM) 50 mg tablet Take 50 mg by mouth every 6 (six) hours as needed. for pain 1 ??? Vyvanse 40 mg capsule Take 40 mg by mouth every morning. 0 No current facility-administered medications for this visit. ALLERGIES/CONTRAINDICATIONS Allergies Allergen Reactions ??? Morphine Other (see comments) and Edema Facial swelling and reddness REVIEW OF SYSTEMS Positive for above All other pertinent OB systems reviewed and negative except per HPI. OBJECTIVE VITAL SIGNS LMP 10/08/2019 PHYSICAL EXAMINATION General: Patient appears well groomed and well nourished. No acute distress. Oriented times three. Abdomen: Soft, nontender, gravid. Fundal height is 12 cm. heart tones are absent. Extremities: No lower extremity edema. DIAGNOSTICS Transabdominal ultrasound shows composite age of 12 weeks and 0 days. She should be 14 weeks. There is no heartbeat noted. Color Doppler confirms this. There is still normal fluid on the baby. There appears to be an anterior placenta with a possibly pretty significant clot behind it. ASSESSMENT / PLAN 1. Threatened Now inevitable. Offered patient consideration for surgical intervention. She would like to try induction with Cytotec. She did that last time but was a couple weeks earlier. She has already received RhoGAM with this . We discussed with her primary provider and probably bring her in early nextweek. She does a develops a fever or increasing bleeding she should report that to the clinic or to the come to the emergency room immediate. - US OB Limited PRESIDENT PRECISION MARKET INSIGHTS documented in this encounter Plan of Treatment Not on filedocumented as of this encounter Procedures Procedure Name Priority Date/Time Associated Comments Diagnosis US OB LIMITED RAD - Routine 01/14/2020 11:03 Results f or this (most inpatients AM VICE PRESIDENT PRECISION MARKET INSIGHTS Threatened procedure a re in and all the results outpatients) section. documented in this encounter Results US OB Limited (01/14/2020 11:03 AM VICE PRESIDENT PRECISION MARKET INSIGHTS) P athologist Signature CRL 16.9 mm Anatomical Region Laterality Modality Ultrasound OB RST LOS, Ultrasound ARZ LOS, Ultrasound FLA LO S, N/A Ultrasound Ultrasound ARZ LOS Specimen (Source) Anatomical Location Collection Method / Collectio n Time Received Time / Laterality Volume Narrative 01/14/2020 11:03 AM VICE PRESIDENT PRECISION MARKET INSIGHTS For ultrasound ??details see imbedded report in Q-reads. Size consistent with ??2 weeks less than dates, normal f luid. There is no cardiac activity, confirmed with color doppler. Gurmeet Casiano Jr., M.D. IMG OB US PROCEDURES documented in this encounter Visit Diagnoses Diagnosis Threatened (HCC) - Pr imary documented in this encounter Additional Health Concerns Assessment Noted Time PHQ-9 Depression Total Score: 16 12/09/2019 10:25 AM C DT documented as of this encounter Care Teams Extrusion Die Repairer Relationship Specialty Start Date End Date Marisel Ferrer M.D. PCP - General Family Medicine 07/11/18 03/24/20 [address] [place] [address] documented as of this encounter
--- OUTSIDE RECORDS SUMMARY | 2021-11-28 09:13 | XMS_ITS | Encounter Summary ---
:1985 Author Organization [facility] Address [address] [place] [address] Care Team Providers Name Role Phone Marisel Ferrer M.D. Primary Care Provider [phone] Encounter Details Date Type Department Care Team Description 01/14/2020 Silent Schedule Department of Obstetrics Jef Casiano Jr., and Gynecology in [place], [place] [address] [facility] [place] [address] [phone] (Wo rk) Social History Tobacco Use Types Packs/Day Years [...] 11/27/2019 relatives? How often do you attend evangelical or catholic Never 01/31/2019 services? Do you belong to any clubs or organizations such as No 01/31/2019 evangelical groups, unions, fraternal or athletic groups, or [...] at Date Recorded Female 01/11/2018 2:20 PM COMMUNITY ORGANIZATION WORKER documented as of this encounter Plan of Treatment Not on filedocumented as of this encounter Procedures Procedure Name Priority Date/Time Associated Comments Diagnosis US OB LIMITED RAD - Routine 01/14/2020 11:03 Results f or this (most inpatients AM COMMUNITY ORGANIZATION WORKER Threatened procedure a re in and all the results outpatients) section. documented in this encounter Results US OB Limited (01/14/2020 11:03 AM COMMUNITY ORGANIZATION WORKER) P athologist Signature CRL 16.9 mm Anatomical Region Laterality Modality Ultrasound OB RST LOS, Ultrasound ARZ LOS, Ultrasound FLA LO S, N/A Ultrasound Ultrasound ARZ LOS Specimen (Source) Anatomical Location Collection Method / Collectio n Time Received Time / Laterality Volume Narrative 01/14/2020 11:03 AM COMMUNITY ORGANIZATION WORKER For ultrasound ??details see imbedded report in Q-reads. Size consistent with ??2 weeks less than dates, normal f luid. There is no cardiac activity, confirmed with color doppler. Gurmeet Casiano Jr., M.D. IMG OB US PROCEDURES documented in this encounter Visit Diagnoses Not on filedocumented in this encounter Additional Health Concerns Assessment Noted Time PHQ-9 Depression Total Score: 16 12/09/2019 10:25 AM C DT documented as of this encounter Care Teams Iuss Analyst Relationship Specialty Start Date End Date Marisel Ferrer M.D. PCP - General Family Medicine 07/11/18 03/24/20 [address], [place] [address] documented as of this encounter
--- OUTSIDE RECORDS SUMMARY | 2021-11-28 09:13 | XMS_ITS | Encounter Summary ---
:1985 Author Organization [facility] Address [address] [place] [address] Care Team Providers Name Role Phone Jana Granda M.D. Primary Care Provider Encounter Details Date Type Department Care Team Description 11/13/2020 Hospital Encounter Department of Laboratory Chino Mason, Medicine, [facility], in [place], [address] [place], [place] [address] [facility] [address] [place] [address] [phone] Social History Tobacco Use Types Packs/Day Years [...] 11/27/2019 relatives? How often do you attend islam or buddhist Never 01/31/2019 services? Do you belong to any clubs or organizations such as No 01/31/2019 islam groups, unions, fraternal or athletic groups, or [...] at Date Recorded Female 01/11/2018 2:20 PM CASINO SHIFT MANAGER documented as of this encounter Medications at Time of Discharge Medication Sig Dispensed Refills Start Date End Date buPROPion XL 0 02/22/2019 (WELLBUTRIN XL) 300 mg 24 hr tablet clindamycin-benzoyl Apply topically 2 50 g 11 0 peroxide (BENZACLIN) (two) times a day. 1-5 % gel FLUoxetine (PROzac) 20 Take 1 capsule by 0 2017 mg capsule mouth every AM after solid food gabapentin (NEURONTIN) 1,800 mg 3 (three) 0 01/28 300 mg capsule times a day. vitamin-iron Take 1 tablet by mouth 0 fumarate-FA 28 mg iron- daily. 800 mcg per tablet tiZANidine (ZANAFLEX) 2 1 tab up to three 0 03/20 mg tablet times daily, use mostly at night for muscle relaxer. May make you drowsy. traMADol (ULTRAM) 50 mg Take 50 mg by mouth 1 01/2019 tablet every 6 (six) hours as needed. for pain Vyvanse 40 mg capsule Take 40 mg by mouth 0 01/03 every morning. Take 1 tablet by mouth 90 tablet 3 01/14/2020 vit27,calcium/iron/FA daily. (multivitamin/mineral-p renatal) tablet documented as of this encounter Plan of Treatment Not on filedocumented as of this encounter Visit Diagnoses Not on filedocumented in this encounter Additional Health Concerns Infection Onset Date Last Indicated Resolved Time COVID19 Pending 11/12/2020 11/13/2020 11/14/2020 8:49 AM CDT Assessment Noted Time PHQ-9 Depression Total Score: 16 12/09/2019 10:25 AM C DT documented as of this encounter Care Teams Safety Relief Valve Technician Relationship Specialty Start Date End Date Jana Granda M.D. PCP - General 03/25/[address] [place] [address] ANNY Garcia [phone] documented as of this encounter
--- OUTSIDE RECORDS SUMMARY | 2021-11-28 09:13 | XMS_ITS | Encounter Summary ---
:1985 Author Organization [facility] Address [address] [place] [address] Care Team Providers Name Role Phone Jana Granda M.D. Primary Care Provider Reason for Visit Reason Comments COVID Inquiry Encounter Details Date Type Department Care Team Description 11/12/2020 Clinical Communication Department of Jeniffer Cano COVID Inquiry [facility], [facility], [address] [address] [place], [place] [phone] [address] (Work) [phone] Social History Tobacco Use Types Packs/Day Years [...] 11/27/2019 relatives? How often do you attend synagogue or spiritism Never 01/31/2019 services? Do you belong to any clubs or organizations such as No 01/31/2019 synagogue groups, unions, fraternal or athletic groups, or [...] to pay for the very basics like [employer] hat hard 11/27/2019 food, housing, medical care, [...] at Date Recorded Female 01/11/2018 2:20 PM CELERY STRIPPER documented as of this encounter Miscellaneous Notes Telephone Encounter - Janel Alberto - 11/12/2020 12:16 PM CDT What is the purpose of the call?: Symptomatic (Calling PCP Office) Calling [place] PCP Office What region is the patient calling from? : [place] Have you tested positive for COVID-19 in the last 20 days? : No In the past 14 days are any of the following symptoms new to you and not related to an existing health condition?: New cough, New sore throat, New nausea, New chills, New headache, New myalgias (muscleaches) Because of symptoms, transfer patient to: : [place] COVID Nurse Line (End Screening) Symptom Onset Date of symptom onset: 11/09/20 Testing Recommendation Endpoint Is testing recommended? : Transferred to nursing call line Plan: Endpoint recommendation: Transferred to Nursing/COVID Line/Care Team *Reminder if sending patient for testing in [facility] or [facility], route encounter to the correct testing pool. documented in this encounter Plan of Treatment Not on filedocumented as of this encounter Visit Diagnoses Not on filedocumented in this encounter Additional Health Concerns Assessment Noted Time PHQ-9 Depression Total Score: 16 12/09/2019 10:25 AM C DT documented as of this encounter Care Teams Allergist/Pediatric Pulmonologist Relationship Specialty Start Date End Date Jana Granda M.D. PCP - General 03/25/[address] [place] [address] ANNY Garcia [phone] documented as of this encounter
--- OUTSIDE RECORDS SUMMARY | 2021-11-28 09:13 | XMS_ITS | Encounter Summary ---
:1985 Author Organization [facility] Address [address] [place] [address] Care Team Providers Name Role Phone Jana Granda M.D. Primary Care Provider Encounter Details Date Type Department Care Team Description 12/14/2020 Orders Only [facility] Anastasiya Pierce M.D. Screening Lipid [address] [facility] [address] (Wo rk) Social History Tobacco Use Types [...] 11/27/2019 relatives? How often do you attend zoroastrian or congregation Never 01/31/2019 services? Do you belong to any clubs or organizations such as No 01/31/2019 zoroastrian groups, unions, fraternal or athletic groups, or [...] at Date Recorded Female 01/11/2018 2:20 PM FACILITY MANAGER HISTOLOGY documented as of this encounter Plan of Treatment Not on filedocumented as of this encounter Visit Diagnoses Diagnosis Screening Lipid documented in this encounter Additional Health Concerns Assessment Noted Time PHQ-9 Depression Total Score: 16 12/09/2019 10:25 AM C DT documented as of this encounter Care Teams Sample Checker Relationship Specialty Start Date End Date Jana Granda M.D. PCP - General 03/25/[address] [place] [address] [place] [address] documented as of this encounter
--- OUTSIDE RECORDS SUMMARY | 2021-11-28 09:13 | XMS_ITS | Encounter Summary ---
:1985 Author Organization [facility] Address [address] [place] [address] Care Team Providers Name Role Phone Marisel Ferrer M.D. Primary Care Provider [phone] Reason for Visit Reason Comments Nurse Visit OB EDU Encounter Details Date Type Department Care Team Description 01/14/2020 Virtual Visit Department of Shayne Lee M.D. [address], [place] [address] Examination Obstetrics and Marylou Urena RTyler [address] [place] [address] Other Normal Gynecology in [address] [address] Social History Tobacco Use Types Packs/Day Years [...] 11/27/2019 relatives? How often do you attend yazidi or bahai Never 01/31/2019 services? Do you belong to any clubs or organizations such as No 01/31/2019 yazidi groups, unions, fraternal or athletic groups, or [...] at Date Recorded Female 01/11/2018 2:20 PM APPRAISAL TECHNICIAN documented as of this encounter Last Filed Vital Signs Vital Sign Reading Time Taken Comments Blood Pressure - - Pulse - - Temperature - - Respiratory Rate - - Oxygen Saturation - - Inhaled Oxygen Concentration - - Weight 55.4 kg (122 lb 3.9 oz) 01/14/2020 11:02 AM APPRAISAL TECHNICIAN Height - - Body Mass Index 21.13 12/09/2019 10:17 AM CDT documented in this encounter Progress Notes Marylou Urena R.N. - 01/14/2020 9:30 AM CST S: Patient states she is feeling well. She has had cramping, has not had nausea, has not had vomiting, has not had any vaginal bleeding. Her cramping has been consistent but tolerable at this time. Shealso stated that she does not feel anymore. She has no other concerns today. REVIEW OF SYSTEMS: General: No fever, chills, fatigue, unintentional weight loss, or weight gain HEENT: No sore throat, nasal congestion, changes in vision or changes in hearing Cardiovascular: No chest pain, irregular heartbeat or racing heart Respiratory: No shortness of breath, cough, or wheezing Gastrointestinal: No nausea, vomiting, diarrhea, constipation or abdominal pain Genitourinary: No leaking urine, pain with urination, burning with urination, irregular vaginal bleeding, heavy periods, painful periods, abnormal vaginal discharge or leaking gas or stool Skin: No rashes or skin lesions Breasts: No masses or lumps, positive for discharge from the nipples Neuro: No difficulty with memory, numbness, tingling, or falls Psych: No anxiety, depression or difficulty sleeping Endocrine: No excessive thirst, hair loss, intolerance of heat or cold A/P: 34 y.o. at 14w0d who was contacted via telephone for OB follow up and first trimester OB education. 1.) New OB labs were ordered today. We will contact her with results. 2.) Anticipated course of care, including indications for ultrasounds, were all discussed in detail. OB Nest schedule was reviewed in detail. 3.) Nutrition counseling was discussed in detail, including dietary precautions and caffeine intake.Recommended weight gain is 25-35 lbs. 4.) Sexual activity, exercise recommendations, dental care, travel precautions, seat belt use, and signs and symptoms of labor were all discussed in detail. 5.) MD identification of lead exposure was completed and no risks were identified. 6.) Depression screening was completed on 12/08 and her PHQ-9 score was 16. Good communication encouraged. She is following [facility] at this time. No mood concerns today. 7.) She reports that she does not feel anymore for the past week. She was offered to come in to see RN for heart tones for reassurance. She presented and heart tones could not be found via abdominal doppler. Please see encounter from Dr. Casiano today for additional details. 8.) multivitamins were sent to pharmacy today per patient request and per RN protocol. 1st Trimester education provided today using the ACOG list of recommended antepartum education topics and in accordance with [facility] guidelines. Patient states understanding to all topics presented. All questions answered during appointment. Written information regarding topics presented provided for patient to take home. Please see education tab for further details about topics addressed. AISAL TECHNICIAN documented in this encounter Plan of Treatment Not on filedocumented as of this encounter Visit Diagnoses Diagnosis Examination Other Normal Pregna ncy First Trimester (HCC) documented in this encounter Additional Health Concerns Assessment Noted Time PHQ-9 Depression Total Score: 16 12/09/2019 10:25 AM C DT documented as of this encounter Care Teams Coal Digger Relationship Specialty Start Date End Date Marisel Ferrer M.D. PCP - General Family Medicine 07/11/18 03/24/20 [address] [place] [phone] documented as of this encounter
--- OUTSIDE RECORDS SUMMARY | 2021-11-28 09:13 | XMS_ITS | Encounter Summary ---
:1985 Author Organization [facility] Address [address] [place] [address] Care Team Providers Name Role Phone Marisel Ferrer M.D. Primary Care Provider [phone] Reason for Visit Reason Comments COVID Inquiry Encounter Details Date Type Department Care Team Description 01/10/2020 Clinical Communication Central Appointment Line, Covid COVID Inquiry Office in [facility] [address] [place] [address] Social History Tobacco Use Types Packs/Day Years [...] 11/27/2019 relatives? How often do you attend shinto or rastafarian Never 01/31/2019 services? Do you belong to any clubs or organizations such as No 01/31/2019 shinto groups, unions, fraternal or athletic groups, or [...] at Date Recorded Female 01/11/2018 2:20 PM 1ST GRADE TEACHER documented as of this encounter Miscellaneous Notes Telephone Encounter - Polina Peralta - 01/10/2020 12:01 PM CST COVID DOS/PASS Screening What is the patient requesting?: COVID-19 Testing Only (End screening - follow local process) Plan: Endpoint recommendation: Testing indicated, sent patient to [facility] located at [address] [place] [address]. The entrance is on the north side of the building. You must call [phone] for an appointment time.Testing hours are Daily 9 am to 7 pm.When you arrive at the testing site: Remain in your vehicle and check-in by phone using the same appointment line number. and Please avoid using public transportationper CDC recommendation. If you do not have personal transportation please self-quarantine until a personal transportation option is available. *Reminder if sending patient for testing in T or [facility], an email notification is required. 1ST GRADE TEACHER documented in this encounter Plan of Treatment Not on filedocumented as of this encounter Visit Diagnoses Not on filedocumented in this encounter Additional Health Concerns Infection Onset Date Last Indicated Resolved Time COVID19 Pending 01/10/2020 01/10/2020 01/11/2020 4:27 PM 1ST GRADE TEACHER Assessment Noted Time PHQ-9 Depression Total Score: 16 12/09/2019 10:25 AM C DT documented as of this encounter Care Teams Special Education Tutor Relationship Specialty Start Date End Date Marisel Ferrer M.D. PCP - General Family Medicine 07/11/18 03/24/[address] [place] [phone] documented as of this encounter
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
--- OUTSIDE RECORDS SUMMARY | 2021-11-28 09:13 | XMS_ITS | Encounter Summary ---
:1985 Author Organization [facility] Address [address] [place] [address] Care Team Providers Name Role Phone Jana Granda M.D. Primary Care Provider Reason for Visit Reason Onset Date Comments Testing For Upper Respiratory Virus Symptoms 04/27/2020 Encounter Details Date Type Department Care Team Description 04/27/2020 External Outreach Department of [facility] Corbin Mason Contact With And Medicine, Juan Alberto Julian D.O. (Suspected) Exposure Building, in [address] [facility] (Primary [place], [place] Dx) [address] [facility] [address] [place], [place] [phone] (Work) [phone] Social History Tobacco Use Types Packs/Day Years [...] 11/27/2019 relatives? How often do you attend nondenominational or confucianism Never 01/31/2019 services? Do you belong to any clubs or organizations such as No 01/31/2019 nondenominational groups, unions, fraternal or athletic groups, or [...] to pay for the very basics like PenBoutiquew hat hard 11/27/2019 food, housing, medical care, [...] at Date Recorded Female 01/11/2018 2:20 PM GEOSCIENCE TECHNICIAN documented as of this encounter Progress Notes eJssica Diaz R.N. - 04/27/2020 8:20 AM CDT Encounter created for symptomatic infectious disease screening with possible COVID, Influenza, RSV, and/or Group A Strep testing. documented in this encounter Miscellaneous Notes Addendum Note - Don Everett R.N. - 04/27/2020 8:20 AM CDT Addended by: DON EVERETT on: 04/28/2020 07:45 AM Modules accepted: Orders documented in this encounter Plan of Treatment Not on filedocumented as of this encounter Visit Diagnoses Diagnosis Contact With And (Suspected) Exposure To COVID-19 - Primary documented in this encounter Additional Health Concerns Infection Onset Date Last Indicated Resolved Time COVID19 Pending 04/27/2020 04/27/2020 04/28/2020 7:45 AM CDT Assessment Noted Time PHQ-9 Depression Total Score: 16 12/09/2019 10:25 AM C DT documented as of this encounter Care Teams Nylon Winder Relationship Specialty Start Date End Date Jana Granda M.D. PCP - General 03/25/[address] [place] [address] [place] [phone] documented as of this encounter
--- OUTSIDE RECORDS SUMMARY | 2021-11-28 09:13 | XMS_ITS | Encounter Summary ---
:1985 Author Organization [facility] Address [address] [place] [address] Care Team Providers Name Role Phone Jana Granda M.D. Primary Care Provider Reason for Visit Reason Comments PPD Placement To be read at [place] Encounter Details Date Type Department Care Team Description 08/23/2020 Clinical Support [facility] Test Skin Occupational Meghann Higgins, Tuberculosis Medicine in L.P.N. (Primary Dx) [place], [place] [address] [place] [phone] Social History Tobacco Use Types Packs/Day Years [...] or more drinks on one occasion? Ne aurleio 07/19/2018 Social Isolation Answer Date Recorded In a typical week, how many times do you talk on Once a week 11/27/2019 the phone with family, friends, or neighbors? How often do you get together with friends or Once a week 11/27/2019 relatives? How often do you attend methodist or scientologist Never 01/31/2019 services? Do you belong to any clubs or organizations such as No 01/31/2019 methodist groups, unions, fraternal or athletic groups, or [...] to pay for the very basics like [employer] hat hard 11/27/2019 food, housing, medical care, [...] at Date Recorded Female 01/11/2018 2:20 PM CAPTAIN ASSISTANT documented as of this encounter Plan of Treatment Not on filedocumented as of this encounter Visit Diagnoses Diagnosis Test Skin Tuberculosis - Primary documented in this encounter Additional Health Concerns Assessment Noted Time PHQ-9 Depression Total Score: 16 12/09/2019 10:25 AM C DT documented as of this encounter Care Teams Call Person Relationship Specialty Start Date End Date Jana Granda M.D. PCP - General 03/25/[address] [place] [address] [place] [phone] documented as of this encounter
--- OUTSIDE RECORDS SUMMARY | 2021-11-28 09:13 | XMS_ITS | Encounter Summary ---
:1985 Author Organization [facility] Address [address] [place] [address] Care Team Providers Name Role Phone Jana Granda M.D. Primary Care Provider Encounter Details Date Type Department Care Team Description 09/13/2021 Orders Only [facility] Anastasiya Pierce M.D. Screening Lipid [address] [facility] [place] [address] (Wo rk) Social History Tobacco Use [...] 11/27/2019 relatives? How often do you attend yazidism or buddhism Never 01/31/2019 services? Do you belong to any clubs or organizations such as No 01/31/2019 yazidism groups, unions, fraternal or athletic groups, or [...] at Date Recorded Female 01/11/2018 2:20 PM SUPERVISOR SANDING documented as of this encounter Plan of Treatment Scheduled Orders Name Type Priority Associated Diagnoses Order S chedule Lipid Panel Lab Routine Screening Lipid Expected: , Expires: 03/12/2022 documented as of this encounter Visit Diagnoses Diagnosis Screening Lipid documented in this encounter Additional Health Concerns Assessment Noted Time PHQ-9 Depression Total Score: 16 12/09/2019 10:25 AM C DT documented as of this encounter Care Teams Pin Feather Machine Operator Relationship Specialty Start Date End Date Jana Granda M.D. PCP - General 03/25/[address] [place] [phone] documented as of this encounter
--- OUTSIDE RECORDS SUMMARY | 2021-11-28 09:13 | XMS_ITS | Encounter Summary ---
:1985 Author Organization [facility] Address [address] [place] [address] Care Team Providers Name Role Phone Jana Granda M.D. Primary Care Provider Reason for Visit Reason Comments COVGERMAN Nurse Line Encounter Details Date Type Department Care Team Description 11/12/2020 Clinical Communication Division of [facility] Nurse [facility] Internal Celeste Aguirre R.N., Medicine, [facility], in [address] [place] [phone] [place] [address] [place], [place] (Work) [phone] Social History Tobacco Use Types Packs/Day Years [...] 11/27/2019 relatives? How often do you attend mu-ism or roman catholic Never 01/31/2019 services? 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 WELDER documented as of this encounter Miscellaneous Notes Telephone Encounter - TenorioCeleste R.N., CCRN-K - 11/12/2020 12:25 PM CDT COVID-19 Nurse Line Screening ASSESSMENT Region Select appropriate region: : [place] Age Pathway Select approprite pathway: : Adult Have you had close contact* with a person who has a LABORATORY CONFIRMED case of COVID-19 in the past 14 days?: No (Continue Screening) In the last 48 hours, have you had a fever* OR symptoms that are unrelated to a preexisting illness?: New cough, New headache, New shortness of breath, New sore throat, New nausea, New muscle aches, New chills, New loss of smell Have you received a COVID-19 vaccine in the last 72 hours? : No vaccine received (Continue Screening) Do you have any of the following urgent symptoms?: No urgent symptoms noted (Continue Screening) Have you tested positive for COVID-19 in the last 45 days?: No (Continue Screening) Are ALL the following criteria met: age between 18 to 75 yrs, main symptom is a sore throat with duration of 24 hrs to 7 days, onset of sore throat not associated with new upper respiratory symptoms*? : No, COVID testing is recommended (End Screening) Symptom Onset Date of symptom onset: 11/09/20 Testing Recommendation Endpoint Is testing recommended? : Recommended to test PLAN Endpoint recommendation: Symptomatic testing indicated, advised to be swabbed for COVID-19 Only , sent to [facility] located at [address] [place] [address] ([facility]). An appointment is required for testing, please call [phone] Sunday-Sunday 7am to 6pm and Sunday & Sunday 9am to 4pm to schedule an appointment. Testing hours are 8am - 4:30pm daily. You can also schedule via your Patient Online Services account. and Please avoid using public transportation per CDC recommendation. If you donot have personal transportation please self-quarantine until a personal transportation option is available. Standard Care Points -Get a COVID -19 vaccine as soon as you can if not fully vaccinated. -Wash hands frequently with soap and water, use hand candy cutter hand if soap and water aren't available. -Wear a mask over your nose and mouth to help protect yourself and others if not fully vaccinated and having no symptoms -Stay 6 feet between yourself and others who don't live with you. -Avoid crowds and poorly ventilated indoor spaces. -Seek emergent care if any of the following occur Trouble breathing Bluish lips or face Persistent pain or pressure in the chest New confusion or inability to rouse. -Notify your regular care provider of any new or worsening symptoms. Symptomatic Carepoints: Stay home and separate yourself from others and stay in a specific sick room if able. Avoid sharing personal or household items. Rest. Hydrate. Take Acetaminophen/Ibuprofen asneeded to control fever and muscles aches. Use over the counter medications as needed for other symptoms. Gargle with 8 ounces of warm salt water several times a day for throat discomfort (1/4 tsp regular salt to 8 ounces or 1 cup warm water). Do not swallow the salt water. Throat lozenges will help keep the throat lubricated. Hard candy, lollipops, and throat lozenges are equally effective. Use a humidifier. If you have received a negative COVID-19 test result and continue to have new or worsening symptoms after 72 hours please call the COVID Nurse Line to assess if you need repeat testing or reach out to your Primary Care Provider for guidance. Education: Patient/caregiver able to teach back Patient agreeable to plan of care: Yes The following references were used: [facility] novel coronavirus (COVID- 19) resources Nursing judgement documented in this encounter Plan of Treatment Not on filedocumented as of this encounter Visit Diagnoses Not on filedocumented in this encounter Additional Health Concerns Assessment Noted Time PHQ-9 Depression Total Score: 16 12/09/2019 10:25 AM C DT documented as of this encounter Care Teams Stem Lead Former Relationship Specialty Start Date End Date Jana Granda M.D. PCP - General 03/25/[address] [place] [phone] documented as of this encounter
--- OUTSIDE RECORDS SUMMARY | 2021-11-28 09:13 | XMS_ITS | Encounter Summary ---
:1985 Author Organization [facility] Address [address] [place] [address] Care Team Providers Name Role Phone Jana Granda M.D. Primary Care Provider Reason for Referral Outpatient (Routine) - Closed Specialty Diagnoses / Procedures Referred By Contact Refer red To Contact Diagnoses Occupational Health Examination Ermelinda Garcia P.A.-Liliam [facility] Procedures OCC Drug screening [address] [place] [address] Referral ID Status Reason Start Date Expiration Date Visits Requ ested Visits Authorized [id number] Closed 08/23/2020 08/23/2021 1 1 Reason for Visit Reason Comments Drug Screen Appointment Request (Routine) - Closed Specialty Diagnoses / Procedures Referred By Contact Refer red To Contact Occupational Medicine Referral ID Status Reason Start Date Expiration Date Visits Requ ested Visits Authorized [id number] Closed 08/20/2020 08/20/2021 1 1 Encounter Details Date Type Department Care Team Description 08/23/2020 Clinical Support Department of [facility], Occupation al Health Occupational David Lara (Pr imary Medicine in L.P.N. Dx) [place], [place] [address] [place] [phone] Social History Tobacco Use Types Packs/Day Years [...] 11/27/2019 relatives? How often do you attend protestant or gnosticist Never 01/31/2019 services? Do you belong to any clubs or organizations such as No 01/31/2019 protestant groups, unions, fraternal or athletic groups, or [...] at Date Recorded Female 01/11/2018 2:20 PM PLANT ASSOCIATE documented as of this encounter Plan of Treatment Scheduled Orders Name Type Priority Associated Diagnoses Order S chedule OCC Drug screening Procedures Routine Occupational Health Or dered: 08/23/2020 Examination documented as of this encounter Visit Diagnoses Diagnosis Occupational Health Examination - Primar y documented in this encounter Additional Health Concerns Assessment Noted Time PHQ-9 Depression Total Score: 16 12/09/2019 10:25 AM C DT documented as of this encounter Care Teams Satellite Tv Technician Relationship Specialty Start Date End Date Jana Granda M.D. PCP - General 03/25/[address] [place] [address] [place] [phone] documented as of this encounter
--- OUTSIDE RECORDS SUMMARY | 2021-11-28 09:13 | XMS_ITS | Encounter Summary ---
:1985 Author Organization [facility] Address [address] [place] [address] Care Team Providers Name Role Phone Marisel Ferrer M.D. Primary Care Provider [phone] Encounter Details Date Type Department Care Team Description 12/10/2019 Admin Visit Department of Family Medicine, [address] [address] [facility] [phone] Social History Tobacco Use Types Packs/Day Years [...] 11/27/2019 relatives? How often do you attend restorationism or islam Never 01/31/2019 services? Do you belong to any clubs or organizations such as No 01/31/2019 restorationism groups, unions, fraternal or athletic groups, or [...] at Date Recorded Female 01/11/2018 2:20 PM FORTUNE TELLER documented as of this encounter Plan of Treatment Not on filedocumented as of this encounter Visit Diagnoses Not on filedocumented in this encounter Additional Health Concerns Infection Onset Date Last Indicated Resolved Time COVID19 Pending 12/10/2019 12/10/2019 12/11/2019 3:42 PM CDT Assessment Noted Time PHQ-9 Depression Total Score: 16 12/09/2019 10:25 AM C DT documented as of this encounter Care Teams Superintendent Building Relationship Specialty Start Date End Date Marisel Ferrer M.D. PCP - General Family Medicine 07/11/18 03/24/[address] [phone] documented as of this encounter
--- OUTSIDE RECORDS SUMMARY | 2021-11-28 09:13 | XMS_ITS | Encounter Summary ---
:1985 [facility] Address [address] [place] [address] Care Team Providers Name Role Phone Jana Granda M.D. Primary Care Provider Encounter Details Date Type Department Care Team Description 05/14/2020 Orders Only [facility] PCP [facility] ANNYT Jarvis Laguerre Jr., M.D. [address] [place] [address] Dr Solis MD [phone] (Wo rk) Social History Tobacco Use Types [...] 11/27/2019 relatives? How often do you attend sikh or restoration Never 01/31/2019 services? Do you belong to any clubs or organizations such as No 01/31/2019 sikh groups, unions, fraternal or athletic groups, or [...] at Date Recorded Female 01/11/2018 2:20 PM BUSINESS OFFICE SPECIALIST documented as of this encounter Plan of Treatment Not on filedocumented as of this encounter Visit Diagnoses Not on filedocumented in this encounter Additional Health Concerns Assessment Noted Time PHQ-9 Depression Total Score: 16 12/09/2019 10:25 AM C DT documented as of this encounter Care Teams Plant Manager Relationship Specialty Start Date End Date Jana Granda M.D. PCP - General 03/25/[address] [place] [address] [place] ANNY Evans [address] documented as of this encounter
--- OUTSIDE RECORDS SUMMARY | 2021-11-28 09:13 | XMS_ITS | Encounter Summary ---
:1985 Author Organization [facility] Address [address] [place] [address] Care Team Providers Name Role Phone Marisel Ferrer M.D. Primary Care Provider [phone] Encounter Details Date Type Department Care Team Description 01/10/2020 Admin Visit Department of Family Medicine, [address] [address] [facility] [phone] Social History Tobacco Use Types Packs/Day Years [...] 11/27/2019 relatives? How often do you attend quaker or orthodoxy Never 01/31/2019 services? Do you belong to any clubs or organizations such as No 01/31/2019 quaker groups, unions, fraternal or athletic groups, or [...] at Date Recorded Female 01/11/2018 2:20 PM MINERAL MIXER documented as of this encounter Plan of Treatment Not on filedocumented as of this encounter Visit Diagnoses Not on filedocumented in this encounter Additional Health Concerns Infection Onset Date Last Indicated Resolved Time COVID19 Pending 01/10/2020 01/10/2020 01/11/2020 4:27 PM MINERAL MIXER Assessment Noted Time PHQ-9 Depression Total Score: 16 12/09/2019 10:25 AM C DT documented as of this encounter Care Teams Steel Wheel Engraver Relationship Specialty Start Date End Date Marisel Ferrer M.D. PCP - General Family Medicine 07/11/18 03/24/[address] [address] documented as of this encounter
--- OUTSIDE RECORDS SUMMARY | 2021-11-28 09:13 | XMS_ITS | Encounter Summary ---
:1985 Author Organization [facility] Address [address] [place] [address] Care Team Providers Name Role Phone Marisel Ferrer M.D. Primary Care Provider [phone] Reason for Visit Reason Onset Date Comments Outpatient COVID-19 Testing 12/10/2019 Encounter Details Date Type Department Care Team Description 12/10/2019 External Outreach Department of Corbin Mason Infect ion [facility] Internal Medicine in J, D.O. Respiratory (Primary [place], [place] [address] Dx) [address] [place] [address] Social History Tobacco Use Types Packs/Day [...] How often do you attend protestant or sikh Never 01/31/2019 services? 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 - 12/10/2019 10:48 AM CDT Encounter created for the drive-through COVID-19 testing. Encounter created for the drive-through COVID-19 testing. documented in this encounter Plan of Treatment Not on filedocumented as of this encounter Procedures Procedure Name Priority Date/Time Associated Diagnosis Comme nts SARS CORONAVIRUS-2 Routine 12/10/2019 11:41 AM Infection Upper Results for this RNA, V CDT Respiratory procedure are i n the results section. documented in this encounter Results SARS Coronavirus-2 RNA, V Symptomatic (12/10/2019 11:41 AM CDT) [facility] Method Time Signature SARS-CoV-2 Swab, 12/11/2019 MKTO Specimen Nasopharynx 3:42 PM CDT Source SARS CoV-2 Undetected Undetected 12/11/2019 MKTO RNA, TMA 3:42 PM CDT Comment: SARS-CoV-2 RNA absent. This result does not rule out COVID-19 in the patient, as the sensitivity of the test depends o n the timing of the specimen collection and the quality of the specim en. Result should be correlated with patient's history and clinical presentat ion. ----ADDITIONAL INFORMATION---- This test is performed using the Aptima SARS-CoV-2 assay ([employer] which has received Emergency Use Authori zation (EUA) by the U.S. Food and Drug Administration. Fact sheets for this Emergency Use Autho rization (EUA) assay can be found at the following links: For Healthcare Providers: https://www.fd a.gov/media/122566/download For Patients: https://www.fda.gov/media/ 286520/download Specimen Anatomical Collection Method Collection Time Receive d Time (Source) Location / / Volume Laterality Varies 12/10/2019 11:41 12/10/2019 7:35 (Nasopharynx) AM CDT PM CDT Corbin Mason D.O. LAB MICROBIOLOGY - GENERAL O RDERABLES Performing Organization Address City/State/ZIP Code Phon e Number [facility]- [address] [place] [address] [place] [address] System [address] documented in this encounter Visit Diagnoses Diagnosis Infection Upper Respiratory - Primary documented in this encounter Additional Health Concerns Infection Onset Date Last Indicated Resolved Time COVID19 Pending 12/09/2019 12/09/2019 12/10/2019 10:54 AM CDT COVID19 Pending 12/10/2019 12/10/2019 12/11/2019 3:42 PM CDT Assessment Noted Time PHQ-9 Depression Total Score: 16 12/09/2019 10:25 AM C DT documented as of this encounter Care Teams Plate And Frame Filter Operator Relationship Specialty Start Date End Date Marisel Ferrer M.D. PCP - General Family Medicine 07/11/18 03/24/[address] [address] documented as of this encounter
[2021-11-28 09:14] LABS: Albumin* 4.6 g/dL (3.3-5.0)
--- OUTSIDE RECORDS SUMMARY | 2021-11-28 09:14 | XMS_ITS | Encounter Summary ---
:1985 Author Organization [facility] Address [address] [place] [address] Care Team Providers Name Role Phone Marisel Ferrer M.D. Primary Care Provider [phone] Reason for Visit Reason Comments Routine Visit 9 weeks Outpatient (Routine) - Closed Specialty Diagnoses / Procedures Referred By Contact Refer red To Contact Obstetrics and Diagnoses Examination Other Normal First Trimester (HCC) QIANA Lee [facility] Gynecology [place] [address] [place] [address] Referral ID Status Reason Start Date Expiration Date Visits Requ ested Visits Authorized [id number] Closed 01/31/2019 01/31/2020 1 1 Encounter Details Date Type Department Care Team Description 02/14/2019 Routine Department of Aravind Lee Other Normal First Trimester (Primary Dx); Obstetrics and [place] Depression Major; Gynecology in [address] Anxiety Genera lized Disorder; [place], [place] St Pain Foot Left; [address] [place], [place] Pain Low Back Chronic; [place] [address] Attention Deficit With Hyperactivity Dis order; [address] Insomnia; Nausea And Vomiting; [phone] Threat ened (Fax) Social History Tobacco Use Types Packs/Day Years [...] 11/27/2019 relatives? How often do you attend anabaptist or anglican Never 01/31/2019 services? Do you belong to any clubs or organizations such as No 01/31/2019 anabaptist groups, unions, fraternal or athletic groups, or [...] at Date Recorded Female 01/11/2018 2:20 PM DIRECTOR REGULATORY AGENCY documented as of this encounter Last Filed Vital Signs Vital Sign Reading Time Taken Comments Blood Pressure 118/66 02/14/2019 11:19 AM DIRECTOR REGULATORY AGENCY Pulse - - Temperature - - Respiratory Rate - - Oxygen Saturation - - Inhaled Oxygen Concentration - - Weight 52.2 kg (115 lb 1.3 oz) 02/14/2019 11:19 AM DIRECTOR REGULATORY AGENCY Height - - Body Mass Index 19.89 02/14/2019 10:39 AM DIRECTOR REGULATORY AGENCY documented in this encounter Progress Notes Joy Lee M.D. - 02/14/2019 11:45 AM CST SUBJECTIVE SYSTEMS REVIEW Constitutional: Positive for fatigue. Negative for fever, weight gain of more than 10 pounds and weight loss of more than 10 pounds. Skin: Negative for skin rash, change in mole or skin spot, breast lump and nipple discharge. Eyes: Negative for visual problems. ENT: Negative for difficulty hearing and sinus congestion. Respiratory: Negative for coughing up mucus (phlegm), dry cough, dyspnea and wheezing. Cardiovascular: Negative for chest pain, pressure or tightness and rapid or fluttering heart beat. Gastrointestinal: Positive for abdominal (belly) pain or cramping, nausea and vomiting. Negative forconstipation, diarrhea and heartburn. Genitourinary: Positive for abnormal vaginal bleeding. Negative for incontinence, difficulty urinating, pain with urination and menses change or abnormal. Musculoskeletal: Negative for arthralgias, back pain and pain or stiffness in the joints. Neurological: Positive for numbness or shooting pain in hands, arms, legs, or feet, headaches and weakness in arms or legs. Negative for loss of balance or tendency to fall easily. Psychiatric/Behavioral: Positive for little interest or pleasure in doing things over past two weeksand feeling nervous, anxious, or on edge in past two weeks. Negative for sleep disturbance and feeling down, depressed, or hopeless over past two weeks. The following systems were negative: Skin, Eyes, ENT, CV, Respiratory, Hematologic, Musculoskeletal OBJECTIVE Vitals: 02/14/19 1119 BP: 118/66 Weight: 52.2 kg PHYSICAL EXAM GEN: NAD Lower Extremities: NT, no edema ASSESSMENT / PLAN IMPRESSION/PLAN Wendi Odonnell is a 33 y.o. female at 9w0d by last menstrual period consistent with 5+6 weekultrasound who presents for OBFU. #1 Examination Other Normal First Trimester Assessment & Plan: New OB labs today. Plan OB education in 2 weeks. Orders: - Obstetrics and Gynecology office visit (clinic) - US OB Limited #2 Depression Major Overview: On Wellbutrin 300 mg SR daily. She stopped Prozac 20 mg daily. We will consider restarting this if her mood symptoms are not well managed with this. Her EPDS score was 22 two weeks ago, and is improveda little to 16 today. She has had no thoughts of harming herself or anyone else. Risks and benefits of SSRIs discussed for , risks of unmanaged mood symptoms in discussed.. She recently started DBT through [facility] in [place], and she believes that will help with her mood symptoms. She has had some situational things that she believes are contributing to mood symptoms. She has been in contact with her psychiatrist at [facility] in [place] who recommended against restarting the prozac. She has an appointment there on 02/24/2019. #3 Anxiety Generalized Disorder Overview: Wellbutrin 300 mg SR daily. Will consider restarting prozac 20 mg daily if symptoms not adequately managed with Wellbutrin alone. EPDS score 22 at last visit, improved to 16 today. KEL 7 score 16 at last visit, indicating mood symptoms that were not well managed. Plan close follow up of this, and she has an appointment with her psychiatrist scheduled on February 24. #4 Pain Foot Left Overview: Was on Tramadol and Tizanidine until 01/23/2019 for this. Currently on Neurontin 600 mg tid for thisand her pain has improved since she increased from 300 mg tid. Was on 1800 mg of Neurontin daily prior to . She is on folic acid supplementation, 4 mg daily. #5 Pain Low Back Chronic Overview: S/p spinal fusion in December. Back pain improved post surgery, foot pain worse. #6 Attention Deficit With Hyperactivity Disorder Overview: Was on Vyvanse and stopped that with the . Has noticed a difference. Would like to get backon medication. I recommend Adderall if treatment is needed in . She will discuss this with her Psychiatrist. #7 Insomnia Overview: Recommended Unisom as needed, and that is not helping. She reports that her sleep has actually been worse. Has been taking melatonin occasionally. Advised to avoid that in . #8 Nausea And Vomiting Overview: This is unchanged. Recommended Sea Bands and Nicole Capsules as needed but those did not help. She reports that this is manageable. #9 Threatened Overview: Viable fetus with appropriate growth. Likely retroplacental hematoma noted on US that is responsiblefor bleeding. Advised to contact us with increased bleeding. Advised to continue pelvic rest. Followup: 2 weeks for OB ed and in 1 month for New OB visit. CTOR REGULATORY AGENCY documented in this encounter Miscellaneous Notes Assessment & Plan Note - Joy Lee M.D. - 02/14/2019 12:56 PM DIRECTOR REGULATORY AGENCY Associated Problem(s): Examination Other Normal First Trimester (HCC) (Deleted) New OB labs today. Plan OB education in 2 weeks. CTOR REGULATORY AGENCY documented in this encounter Plan of Treatment Not on filedocumented as of this encounter Procedures Procedure Name Priority Date/Time Associated Comments Diagnosis US OB LIMITED RAD - Routine 02/14/2019 1:32 Examination Results fo r this (most inpatients PM DIRECTOR REGULATORY AGENCY Other procedure are in and all Normal the results outpatients) First Trimester section. documented in this encounter Results US OB Limited (02/14/2019 1:32 PM DIRECTOR REGULATORY AGENCY) P athologist Signature FHR 172 bpm CRL 19.5 mm Anatomical Region Laterality Modality Ultrasound OB RST LOS, Ultrasound ARZ LOS, Ultrasound FLA LO S, N/A Ultrasound Ultrasound ARZ LOS Specimen (Source) Anatomical Location Collection Method / Collectio n Time Received Time / Laterality Volume Narrative 02/14/2019 1:32 PM DIRECTOR REGULATORY AGENCY Single, living intrauterine with crown-rump length of 1.95 cm corresponding to an 8+4 weeks gestationa l age. ??Cardiac activity is present 172 beats per minute. ??Gestatio nal sac is fundal. ??Yolk sac is visualized. ??Underlying the placenta, t here is a heterogeneous area that is likely consistent with a retroplacent al hematoma. The report for this exam was documented during the exam and is located with the images in Qreads. Joy Lee M.D. IMG OB US PROCEDURES documented in this encounter Visit Diagnoses Diagnosis Examination Other Normal Pregna ncy First Trimester (HCC) - Primary Depression Major Anxiety Generalized Disorder Pain Foot Left Pain Low Back Chronic Attention Deficit With Hyperactivity Dis order Insomnia Nausea And Vomiting Threatened (HCC) documented in this encounter Additional Health Concerns Assessment Noted Time PHQ-9 Depression Total Score: 15 09/28/2017 3:51 PM CD T documented as of this encounter Care Teams Truck Dispatcher Relationship Specialty Start Date End Date Marisel Ferrer M.D. PCP - General Family Medicine 07/11/18 03/24/20 [address] [place] [address] documented as of this encounter
--- OUTSIDE RECORDS SUMMARY | 2021-11-28 09:14 | XMS_ITS | Encounter Summary ---
:1985 Author Organization [facility] Address [address] [place] [address] Care Team Providers Name Role Phone Marisel Ferrer M.D. Primary Care Provider [phone] Reason for Visit Reason Comments Med Refill Encounter Details Date Type Department Care Team Description 03/06/2019 Refill Department of Dermatology in Elsi Resendiz APRN, Med Refill [place], [place] C.N.P., M.S.N. [address] [place] [address] [place] [address] (Wo rk) Social History Tobacco Use Types [...] 11/27/2019 relatives? How often do you attend lutheran or anabaptist Never 01/31/2019 services? Do you belong to any clubs or organizations such as No 01/31/2019 lutheran groups, unions, fraternal or athletic groups, or [...] to pay for the very basics like [employer] hat hard 11/27/2019 food, housing, medical care, [...] at Date Recorded Female 01/11/2018 2:20 PM LEAK DETECTOR documented as of this encounter Miscellaneous Notes Telephone Encounter - Sol Barber R.N. - 03/06/2019 2:16 PM CST Please review DETECTOR Telephone Encounter - Laverne Malave - 03/06/2019 9:04 AM CST Med list states patient is using differently. DETECTOR documented in this encounter Plan of Treatment Not on filedocumented as of this encounter Visit Diagnoses Not on filedocumented in this encounter Additional Health Concerns Assessment Noted Time PHQ-9 Depression Total Score: 15 09/28/2017 3:51 PM CD T documented as of this encounter Care Teams Tool Crib Lead Relationship Specialty Start Date End Date Marisel Ferrer M.D. PCP - General Family Medicine 07/11/18 03/24/[address] [phone] documented as of this encounter
--- OUTSIDE RECORDS SUMMARY | 2021-11-28 09:14 | XMS_ITS | Encounter Summary ---
:1985 Author Organization [facility] Address [address] [place] [address] Care Team Providers Name Role Phone Marisel Ferrer M.D. Primary Care Provider [phone] Encounter Details Date Type Department Care Team Description 02/14/2019 Silent Schedule Department of Obstetrics [place], and Gynecology in [place], [place] [address] [phone] (Wo rk) Social History Tobacco Use Types [...] 11/27/2019 relatives? How often do you attend latter day or yarsani Never 01/31/2019 services? Do you belong to any clubs or organizations such as No 01/31/2019 latter day groups, unions, fraternal or athletic groups, or [...] at Date Recorded Female 01/11/2018 2:20 PM BEDSPRING ASSEMBLER documented as of this encounter Plan of Treatment Not on filedocumented as of this encounter Procedures Procedure Name Priority Date/Time Associated Comments Diagnosis US OB LIMITED RAD - Routine 02/14/2019 1:32 Examination Results fo r this (most inpatients PM BEDSPRING ASSEMBLER Other procedure are in and all Normal the results outpatients) First Trimester section. documented in this encounter Results US OB Limited (02/14/2019 1:32 PM BEDSPRING ASSEMBLER) P athologist Signature FHR 172 bpm CRL 19.5 mm Anatomical Region Laterality Modality Ultrasound OB RST LOS, Ultrasound ARZ LOS, Ultrasound FLA LO S, N/A Ultrasound Ultrasound ARZ LOS Specimen (Source) Anatomical Location Collection Method / Collectio n Time Received Time / Laterality Volume Narrative 02/14/2019 1:32 PM BEDSPRING ASSEMBLER Single, living intrauterine with crown-rump length of [...] the images in Qreads. Joy Lee M.D. IMBela OB US PROCEDURES documented in this encounter Visit Diagnoses Not on filedocumented in this encounter Additional Health Concerns Assessment Noted Time PHQ-9 Depression Total Score: 15 09/28/2017 3:51 PM CD T documented as of this encounter Care Teams Crutch Maker Relationship Specialty Start Date End Date Marisel Ferrer M.D. PCP - General Family Medicine 07/11/18 03/24/20 [address] [address] documented as of this encounter
--- OUTSIDE RECORDS SUMMARY | 2021-11-28 09:14 | XMS_ITS | Encounter Summary ---
:1985 Author Organization [facility] Address [address] [place] [address] Care Team Providers Name Role Phone Marisel Ferrer M.D. Primary Care Provider [phone] Encounter Details Date Type Department Care Team Description 11/14/2019 Hospital Encounter Department of [place], Pregnanc y Examination Laboratory Medicine [place] Test With Positive in [facility] [address] [place] [phone] Social History Tobacco Use Types Packs/Day Years [...] 11/27/2019 relatives? How often do you attend catholic or pentecostal Never 01/31/2019 services? Do you belong to any clubs or organizations such as No 01/31/2019 catholic groups, unions, fraternal or athletic groups, or [...] to pay for the very basics like [employer] hat hard 11/27/2019 food, housing, medical care, [...] at Date Recorded Female 01/11/2018 2:20 PM COMPUTER ASSISTANT documented as of this encounter Medications at Time of Discharge Medication Sig Dispensed Refills Start Date End Date buPROPion XL (WELLBUTRIN 0 02/22/2019 XL) 300 mg 24 hr tablet clindamycin-benzoyl Apply topically 2 50 g 11 0 peroxide (BENZACLIN) 1-5 (two) times a day. % gel FLUoxetine (PROzac) 20 mg Take 1 capsule by 0 08/2017 capsule mouth every AM after solid food gabapentin (NEURONTIN) 1,800 mg 3 (three) 0 01/28 300 mg capsule times a day. vitamin-iron Take 1 tablet by 0 fumarate-FA 28 mg iron- mouth daily. 800 mcg per tablet tiZANidine (ZANAFLEX) 2 1 tab up to three 0 03/20 mg tablet times daily, use mostly at night for muscle relaxer. May make you drowsy. traMADol (ULTRAM) 50 mg Take 50 mg by mouth 1 01/2019 tablet every 6 (six) hours as needed. for pain Vyvanse 40 mg capsule Take 40 mg by mouth 0 01/03 every morning. folic acid 1 mg Take 4 tablets (4 mg 90 tablet 3 01/31/2019 01/31/2020 tabletIndications: Pain total) by mouth Foot Left daily. acetaminophen (TYLENOL) Take 2 tablets 0 01/08/20 18 12/09/2019 500 mg tablet (1,000 mg total) by mouth 4 (four) times a day. buPROPion (WELLBUTRIN SR) Take 1 tablet by 0 05/0 08/201712/09/2019 200 mg 12 hr tablet mouth every AM documented as of this encounter Plan of Treatment Not on filedocumented as of this encounter Procedures Procedure Name Priority Date/Time Associated Diagnosis Comme nts HUMAN CHORIONIC Routine 11/14/2019 2:20 PM Result s for this GONADOTROPIN (HCG), CDT Examination Test proc edure are in NAS, With Positive Result the res ults section. documented in this encounter Results (ABNORMAL) hCG (Human Chorionic Gonadotropin), Quantitative, (11/14/2019 2:20 PM CDT) Analysis Performed At Patho logist Time Signature HCG, [address] (H) <5 IU/L 11/14/2019 [facility] Quantitative, 5:06 PM CDT , P Comment: Biotin has been identified by the madeline wheatley as a potential interfering substance. ??Higher concentr ations of biotin may be found in multivitamins, hair/nail supple ments, and workout supplements. ??If the result does not ma [facility] clinical observations, repeat testing after patient refrains fr om the use of supplements for at least 12 hours. Specimen Anatomical Collection Method Collection Time Receive d Time (Source) Location / / Volume Laterality Blood (Blood, 11/14/2019 2:20 PM 11/14/19 3:32 Venous) CDT PM CDT Joy Lee M.D. LAB BLOOD ADD-ON Performing Organization Address City/State/ZIP Code Phon e Number [facility] [address] [place] [address] [place] [address] System in [place] [address] [facility] documented in this encounter Visit Diagnoses Diagnosis Examination Test With Positive Result (HCC) documented in this encounter Additional Health Concerns Assessment Noted Time PHQ-9 Depression Total Score: 15 09/28/2017 3:51 PM CD T documented as of this encounter Care Teams Gas Station Clerk Relationship Specialty Start Date End Date Marisel Ferrer M.D. PCP - General Family Medicine 07/11/18 03/24/200 [place] [address] documented as of this encounter
--- OUTSIDE RECORDS SUMMARY | 2021-11-28 09:14 | XMS_ITS | Encounter Summary ---
:1985 Author Organization [facility] Address [address] [place] [address] Care Team Providers Name Role Phone Marisel Ferrer M.D. Primary Care Provider [phone] Reason for Referral Outpatient (Routine) - Closed Specialty Diagnoses / Procedures Referred By Contact Refer red To Contact Obstetrics and [facility] Gynecology [place] [address] [place] [phone] Referral ID Status Reason Start Date Expiration Date Visits Requ ested Visits Authorized [id number] Closed 11/11/2019 11/10/2020 1 1 Encounter Details Date Type Department Care Team Description 11/11/2019 Clinical Communication Department of Aurelia Lee and [place] Gynecology in [address] [place] [address] [address] [facility] [address] [address] [place], [place] [phone] (Work) [phone] Social History Tobacco Use Types Packs/Day Years [...] 11/27/2019 relatives? How often do you attend advent or latter day Never 01/31/2019 services? 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 - 11/13/2019 8:44 AM CDT Patient portal message sent with message from Dr. Lee. Telephone Encounter - Virgen [place] R.N. - 11/12/2019 8:34 AM CDT Left message to call back Telephone Encounter - Joy Lee M.D. - 11/12/2019 8:27 AM CDT She can continue the gabapentin at this point for management of her back pain. We will discuss continuing use when she comes in for confirmation. Please let her know. Telephone Encounter - Virgen [place] R.N. - 11/12/2019 8:20 AM CDT PLAN The following information was provided: Dr. Lee's message. Lab appointment scheduled. Dr. Lee: Wendi is taking the Gabapentin as she had back surgery on 01/07/2019/ She states that she has noticed an increased in her back pain with positive test Information/Education: patient/caller able to teach back The following references were used: provider Dr Lee Telephone Encounter - Virgen [place] R.N. - 11/12/2019 8:07 AM CDT Left message to call back Telephone Encounter - Joy Lee M.D. - 11/11/2019 7:13 PM CDT I would like her to come in for hormone levels tomorrow and again on Sunday. These have been ordered. I agree with recommendations provided for cramping and don't have any additional treatment recommendations for that. Please find out why she is on the gabapentin. It would be best not to use it in , but if she needs it for a certain reason, we could consider continuing it. I agree with her stopping the Vyvanse. She can continue the other medications that she is on and we will discuss continuation of use during the when I see her for her confirmation visit. Addendum Note - Adams Harmon R.N. - 11/11/2019 12:02 PM CDT Addended by: ADAMS HARMON on: 11/11/2019 12:02 PM Modules accepted: Orders Telephone Encounter - Adams Harmon R.N. - 11/11/2019 11:48 AM CDT SUBJECTIVE Wendi Odonnell is a 34 y.o. , Patient of Dr. Lee. Patient states that she took a positive test and our congratulations were given. CHIEF COMPLAINT/ REASON FOR CALL Positive test- Establish care ASSESSMENT Ask how feeling, symptoms or concerns- Last 3 days, feels like severe period cramping along with lower back pain. She was unable to walk much yesterday. Denies any VB. The cramping comes and goes 4 times a day and lasts about 5 minutes and is midline. Advised to try OTC Tylenol, warm bath, increase water intake and advised. LMP- 10/08/2019, 4+6 weeks today. Estimated date of delivery- 07/14/2020 vitamins- Yes, OTC Current medications- Gabapentin 600 mg PO BID, Vyvanse 40 mg PO daily (stopped 3 days ago), Prozac 20 mg PO daily, Wellbutrin 300 mg PO daily, Folic Acid 1 mg PO daily OK TO CONTINUE? What type of prior delivery- x 2 H/O / labor complications- Arrest of dilation with first, elective repeat for 2nd H/O miscarriages or abortions- 3 SAB Chronic health conditions (HTN, diabetes, thyroid, clotting)- Pain low back chronic, Depression and Anxiety, Have you or your partner traveled outside on [place] 6 months prior to this ?- Denies If so, where specifically have you or your partner traveled? Country? State?- NA PLAN New obstetrics packet mailed New obstetrics appointments made for confirmation for next available. Patient will contact us during business hours or present to ED if any bleeding/ cramping before scheduled appt. The following information was provided: Information/ Education: patient/caller able to teach back The following references were used: nursing clinical judgement Telephone Encounter - Natalia Sanchez - 11/11/2019 11:42 AM CDT Patient states she took 2 positive tests and has been having cramping. She wants to schedule an appt to see Dr. Lee. Please call her back at [phone] to advise. documented in this encounter Plan of Treatment Scheduled Referrals Name Type Priority Associated Order Schedule Diagnoses Obstetrics and Outpatient Referral Routine Expect ed: Gynecology office 11/11/2019 visit (clinic) (Approximate) , Expires: 11/10/2022 documented as of this encounter Visit Diagnoses Not on filedocumented in this encounter Additional Health Concerns Assessment Noted Time PHQ-9 Depression Total Score: 15 09/28/2017 3:51 PM CD T documented as of this encounter Care Teams Repair Operator Relationship Specialty Start Date End Date Marisel Ferrer M.D. PCP - General Family Medicine 07/11/18 03/24/[address] [address] documented as of this encounter
--- OUTSIDE RECORDS SUMMARY | 2021-11-28 09:14 | XMS_ITS | Encounter Summary ---
:1985 Author Organization [facility] Address [address] [place] [address] Care Team Providers Name Role Phone Marisel Ferrer M.D. Primary Care Provider [phone] Encounter Details Date Type Department Care Team Description 03/21/2019 Hospital Encounter Department of [place], Missed (HCC) Laboratory Medicine [place] in [address] [phone] Social History Tobacco Use Types Packs/Day Years [...] How often do you attend evangelical or jain Never 01/31/2019 services? 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 documented in this encounter Results (ABNORMAL) hCG (Human Chorionic Gonadotropin), Quantitative, (03/21/2019 11:47 AM PROCESS CHEESE COOKER) P athologist Signature HCG, 647 (H) <5 IU/L 03/21/2019 [place] Quantitative, 1:42 PM PROCESS CHEESE COOKER , P Comment: Biotin has been identified by the madeline wheatley as a potential interfering substance. ??Higher concentr ations of biotin may be found in multivitamins, hair/nail supple ments, and workout supplements. ??If the result does not ma tch clinical observations, repeat testing after patient refrains fr om the use of supplements for at least 12 hours. Specimen Anatomical Collection Method Collection Time Receive d Time (Source) Location / / Volume Laterality Blood (Blood, 03/21/2019 11:47 03/21/2019 1:04 Venous) AM PROCESS CHEESE COOKER PM PROCESS CHEESE COOKER Joy Lee M.D. LAB BLOOD ADD-ON Performing Organization Address City/State/ZIP Code Phon e Number [facility] [address] [place] [address] [place] [address] System in [place] [address] documented in this encounter Visit Diagnoses Diagnosis Missed (HCC) documented in this encounter Additional Health Concerns Assessment Noted Time PHQ-9 Depression Total Score: 15 09/28/2017 3:51 PM CD T documented as of this encounter Care Teams Centrifugal Spinner Relationship Specialty Start Date End Date Marisel Ferrer M.D. PCP - General Family Medicine 07/11/18 03/24/[address] [place] [address] documented as of this encounter
--- OUTSIDE RECORDS SUMMARY | 2021-11-28 09:14 | XMS_ITS | Encounter Summary ---
:1985 Author Organization [facility] Address [address] [place] [address] Care Team Providers Name Role Phone Marisel Ferrer M.D. Primary Care Provider [phone] Reason for Visit Appointment Request (Routine) - Closed Specialty Diagnoses / Procedures Referred By Contact Refer red To Contact Obstetrics and Gynecology Referral ID Status Reason Start Date Expiration Date Visits Requ ested Visits Authorized [id number] Closed 11/24/2019 11/23/2020 1 1 Encounter Details Date Type Department Care Team Description 11/27/2019 Office Visit Department of Gurmeet Casiano Other Normal First Trimester (Primary Dx); Obstetrics and [place] Vaginitis Vulvovaginitis; Gynecology in [address] Threat[address] [place], [place] [address] [facility] [address] [place], [place] [phone] [address] (Work) [phone] Social History Tobacco Use Types Packs/Day Years [...] 11/27/2019 relatives? How often do you attend baptist or zoroastrian Never 01/31/2019 services? Do you belong to any clubs or organizations such as No 01/31/2019 baptist groups, unions, fraternal or athletic groups, or [...] at Date Recorded Female 01/11/2018 2:20 PM END TRIMMER documented as of this encounter Last Filed Vital Signs Vital Sign Reading Time Taken Comments Blood Pressure 100/60 11/27/2019 9:34 AM CDT Pulse - - Temperature 37.1 ??C (98.8 ??F) 11/27/2019 9:34 AM CDT Respiratory Rate - - Oxygen Saturation - - Inhaled Oxygen Concentration - - Weight 51.9 kg (114 lb 6.7 oz) 11/27/2019 9:34 AM CDT Height - - Body Mass Index 19.78 02/14/2019 10:39 AM END TRIMMER documented in this encounter Progress Notes Gurmeet Casiano Jr., M.D. - 11/27/2019 9:45 AM CDT SUBJECTIVE CHIEF COMPLAINT/REASON FOR VISIT OB check. HISTORY OF PRESENT ILLNESS Wendi Odonnell is a 34 y.o. female at 7w1d gestation by LMP of 10/08/2019 who presents to theclinic for an OB check. She is seen in the urgent care yesterday had an ultrasound which was consistent with 7+ 3 days and a small corpus luteum on the left. She also had clue cells noted and was givenFlagyl but she has not taken any of that yet. However otherwise laboratory evaluation was normal shedid receive RhoGAM yesterday according to patient. Last night she did pass a clot and then her bleeding became stringy it is quite it down this morning. She is not sure whether she is still ornot. There are no further concerns at this time. CURRENT MEDICATIONS Current Outpatient Medications Medication Sig Dispense Refill ??? acetaminophen (TYLENOL) 500 mg tablet Take 2 tablets (1,000 mg total) by mouth 4 (four) times a day. ??? buPROPion (WELLBUTRIN SR) 200 mg 12 hr tablet Take 1 tablet by mouth every AM ??? buPROPion XL (WELLBUTRIN XL) 300 mg 24 hr tablet ??? clindamycin (CLEOCIN) 2 % vaginal cream Insert 1 applicator into the vagina at bedtime for 7 days. 40 g 0 ??? clindamycin-benzoyl peroxide (BENZACLIN) 1-5 % gel Apply topically 2 (two) times a day. 50 g 11 ??? FLUoxetine (PROzac) 20 [...] mg 3 (three) times a day. ??? vitamin-iron fumarate-FA 28 mg iron- 800 [...] and reddness REVIEW OF SYSTEMS Positive for some lower abdominal pain vaginal discharge and nausea. All other pertinent OB systems reviewed and negative except per HPI. OBJECTIVE VITAL SIGNS BP 100/60 Temp 37.1 ??C Wt 51.9 kg LMP 10/08/2019 BMI 19.78 kg/m?? PHYSICAL EXAMINATION General: Patient appears well groomed and well nourished. No acute distress. Oriented times three. Abdomen: Soft, nontender, DIAGNOSTICS Limited abdominal ultrasound shows a 7 and half week with positive cardiac activity. ASSESSMENT / PLAN 1. Examination Other Normal First Trimester Early warnings given she is on vitamins, has had a recent CBC TSH and vitamin-D. Will needfurther labs if she stays at her next visit. She is are scheduled for a follow-up ultrasound in [address] henrik butler - US OB Limited 2. Vaginitis Vulvovaginitis Will switch her to clindamycin vaginal cream. 3. Threatened No intercourse otherwise normal activities are fine. Prep miscarriage warnings given. - US OB Limited documented in this encounter Plan of Treatment Not on filedocumented as of this encounter Procedures Procedure Name Priority Date/Time Associated Comments Diagnosis US OB LIMITED RAD - Routine 11/27/2019 10:09 Examination Results f or this (most inpatients AM CDT Other procedure are in and all Normal the results outpatients) First Trimester section. Threatened documented in this encounter Results US OB Limited (11/27/2019 10:09 AM CDT) P athologist Signature CRL 13.5 mm Anatomical Region Laterality Modality Ultrasound OB RST LOS, Ultrasound ARZ LOS, Ultrasound FLA LO S, N/A Ultrasound Ultrasound ARZ LOS Specimen (Source) Anatomical Location Collection Method / Collectio n Time Received Time / Laterality Volume Narrative 11/27/2019 10:09 AM CDT For ultrasound ??details see imbedded report in Q-reads. Size consistent with dates, 7+ 5 days. ??Positive cardiac activity noted. Gurmeet Casiano Jr., M.D. IMG OB US PROCEDURES documented in this encounter Visit Diagnoses Diagnosis Examination Other Normal Pregna ncy First Trimester (HCC) - Primary Vaginitis Vulvovaginitis Threatened (HCC) documented in this encounter Additional Health Concerns Assessment Noted Time PHQ-9 Depression Total Score: 15 09/28/2017 3:51 PM CD T documented as of this encounter Care Teams Manager Video Games Relationship Specialty Start Date End Date Marisel Ferrer M.D. PCP - General Family Medicine 07/11/18 03/[address] [address] documented as of this encounter
--- OUTSIDE RECORDS SUMMARY | 2021-11-28 09:14 | XMS_ITS | Encounter Summary ---
:1985 Author Organization [facility] Address [address] [place] [address] Care Team Providers Name Role Phone Marisel Ferrer M.D. Primary Care Provider [phone] Encounter Details Date Type Department Care Team Description 03/06/2019 Ancillary Procedure Department of Obstetrics Andrea aldana, and Gynecology in [place], [place] [address] [phone] Social History Tobacco Use Types Packs/Day Years [...] How often do you attend zoroastrian or islam Never 01/31/2019 services? 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/2018 2:20 PM ADVERTISING REP documented as of this encounter Plan of Treatment Not on filedocumented as of this encounter Procedures Procedure Name Priority Date/Time Associated Comments Diagnosis US PELVIS RAD - Routine 03/06/2019 3:08 Missed Results for this TRANSVAGINAL (most inpatients PM ADVERTISING REP (HCC) procedure a re in and all the results outpatients) section. documented in this encounter Results US Pelvis Transvaginal (03/06/2019 3:08 PM ADVERTISING REP) Anatomical Region Laterality Modality Pelvis, Ultrasound RST LOS, Ultrasound ARZ LOS, Ultrasound F LA N/A Ultrasound LOS Specimen (Source) Anatomical Location Collection Method / Collectio n Time Received Time / Laterality Volume Narrative 03/06/2019 3:08 PM ADVERTISING REP Single, intrauterine with crown-rump length of 30.2 mm corresponding to 10+ 0 weeks gestational age. ??Cardiac activity is not visualized. ??Yolk sac is visualized. ?? The gestational sac is fundal. ?? Findings are consistent with missed abor tion. The report for this exam was documented during the exam and is located with the images in Qreads. Joy MEHAT US PROCEDURES documented in this encounter Visit Diagnoses Not on filedocumented in this encounter Additional Health Concerns Assessment Noted Time PHQ-9 Depression Total Score: 15 09/28/2017 3:51 PM CD T documented as of this encounter Care Teams [place] Relationship Specialty Start Date End Date Marisel Ferrer M.D. PCP - General Family Medicine 07/11/18 03/24/[address] [address] documented as of this encounter
--- OUTSIDE RECORDS SUMMARY | 2021-11-28 09:14 | XMS_ITS | Encounter Summary ---
:1985 Author Organization [facility] Address [address] [place] [address] Care Team Providers Name Role Phone Marisel Ferrer M.D. Primary Care Provider [phone] Encounter Details Date Type Department Care Team Description 11/14/2019 Clinical Communication Department of Jesus Obstetrics and [place] [place] Gynecology in [address] [address] [place] [address] Social History Tobacco Use Types Packs/Day Years [...] How often do you attend protestant or jain Never 01/31/2019 services? 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 Is the patient requesting a COVID test only or other appointments? Other Appointments 2. Have you tested positive for COVID-19 in the last 30 days or do you have a pending COVID-19 test because you had symptoms? no 3. In the last 14 days have you had close contact with a lab confirmed positive case of COVID-19 (close contact is defined as a household case of COVID or being within 6 feet of a COVID-19 patient for more than 5 minutes or having direct contact with infectious secretions, e.g., being coughed on)? no 4. In the past 14 days, are any of the following symptoms new to you and not related to an existing health condition? a. Fever greater than or equal to 37.8 C (100.0 F)? no b. New symptoms (Specifically: headache, cough, shortness of breath, respiratory distress, sore throat, diarrhea, nausea, vomiting, chills and repeated shaking with chills, myalgia's (muscle aches), loss of smell, or change or loss of taste sensation)? no 5. Are you having NEW trouble breathing, worsening breathing, or feeling as though you're going to collapse when you stand or sit up? no 6. Have you tested positive for COVID in the last 90 days? no Route reply to: Scheduling Contact Number: [phone] documented in this encounter Plan of Treatment Not on filedocumented as of this encounter Visit Diagnoses Not on filedocumented in this encounter Additional Health Concerns Assessment Noted Time PHQ-9 Depression Total Score: 15 09/28/2017 3:51 PM CD T documented as of this encounter Care Teams Furniture Servicer Relationship Specialty Start Date End Date Marisel Ferrer M.D. PCP - General Family Medicine 07/11/18 03/24/[address] [address] documented as of this encounter
--- OUTSIDE RECORDS SUMMARY | 2021-11-28 09:14 | XMS_ITS | Encounter Summary ---
:1985 Author Organization [facility] Address [address] [place] [address] Care Team Providers Name Role Phone Marisel Ferrer M.D. Primary Care Provider [phone] Encounter Details Date Type Department Care Team Description 11/27/2019 Silent Schedule Department of Obstetrics Jef Casiano Jr., and Gynecology in [place], [place] [address] [facility] [phone] (Wo rk) Social History Tobacco Use Types [...] 11/27/2019 relatives? How often do you attend rastafarian or orthodox Never 01/31/2019 services? Do you belong to any clubs or organizations such as No 01/31/2019 rastafarian groups, unions, fraternal or athletic groups, or [...] at Date Recorded Female 01/11/2018 2:20 PM DUMP OPERATOR documented as of this encounter Plan [...] documented as of this encounter Care Teams Data Center Manager Relationship Specialty Start Date End Date Marisel Ferrer M.D. PCP - General Family Medicine 07/11/18 03/24/20 [address] [place] [address] documented as of this encounter
--- OUTSIDE RECORDS SUMMARY | 2021-11-28 09:14 | XMS_ITS | Encounter Summary ---
:1985 Author Organization [facility] Address [address] [place] [address] Care Team Providers Name Role Phone Marisel Ferrer M.D. Primary Care Provider [phone] Reason for Visit Reason Onset Date Comments Outpatient COVID-19 Testing 12/09/2019 Encounter Details Date Type Department Care Team Description 12/09/2019 External Outreach Department of Corbin Mason Infect ion [facility] Internal Medicine in [place], D.O. Respiratory (Primary [place], [place] [address] Dx) [address] [place] [phone] Social History Tobacco Use Types Packs/Day [...] How often do you attend advent or scientologist Never 01/31/2019 services? Do you [...] to pay for the very basics like [employer] hat hard 11/27/2019 food, housing, medical care, [...] at Date Recorded Female 01/11/2018 2:20 PM DATA CENTER SOLUTIONS ARCHITECT documented as of this encounter Progress Notes Cynthia Pickering R.N. - 12/09/2019 12:17 PM CDT Encounter created for the drive-through COVID-19 testing. documented in this encounter Plan of Treatment Not on filedocumented as of this encounter Visit Diagnoses Diagnosis Infection Upper Respiratory - Primary documented in this encounter Additional Health Concerns Infection Onset Date Last Indicated Resolved Time COVID19 Pending 12/09/2019 12/09/2019 12/10/2019 10:54 AM CDT Assessment Noted Time PHQ-9 Depression Total Score: 16 12/09/2019 10:25 AM C DT documented as of this encounter Care Teams Production Hardener Relationship Specialty Start Date End Date Mraisel Ferrer M.D. PCP - General Family Medicine 07/11/18 03/24/20 [address] [address] documented as of this encounter
--- OUTSIDE RECORDS SUMMARY | 2021-11-28 09:14 | XMS_ITS | Encounter Summary ---
:1985 Author Organization [facility] Address [address] [place] [address] Care Team Providers Name Role Phone Marisel Ferrer M.D. Primary Care Provider [phone] Reason for Referral Specialty Diagnoses / Procedures Referred By Contact Refer red To Contact Joy Lee M.D. [facility] [address] [place] [address] Referral ID Status Reason Start Date Expiration Date Visits Requ ested Visits Authorized Scheduling Instructions Schedule for 1 hour - phone visit Reason for Visit Reason Comments Initial Visit confirmation of Outpatient (Routine) - Closed Specialty Diagnoses / Procedures Referred By Contact Refer july To Contact Obstetrics and QIANA Lee [facility] Regio n Gynecology [facility] [place] [address] [place] [address] Referral ID Status Reason Start Date Expiration Date Visits Requ ested Visits Authorized [id number] Closed 11/11/2019 11/10/2020 1 1 Encounter Details Date Type Department Care Team Description 12/09/2019 Routine Department of Aravind Lee Other Normal First Trimester (Primary Dx); Obstetrics and [place]lu [place] Depression Major; Gynecology in [address] Anxiety Genera lized Disorder; [place], [place] [address] Pain Foot Left; [address] [place] Pain Low Back Chronic; [facility] [place] [address] Attention Deficit With Hyperactivity Dis order; [address] Insomnia; Nausea And Vomiting; [phone] Threat ened ; (Fax) Unspecified Blo od Type Rhesus Negative; Infection Upper Respiratory Social History Tobacco Use Types Packs/Day Years [...] 11/27/2019 relatives? How often do you attend caodaism or anabaptism Never 01/31/2019 services? 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 - 12/09/2019 10:30 AM CDT SUBJECTIVE REASON FOR VISIT/CHIEF COMPLAINT New OB visit HISTORY OF PRESENT ILLNESS Wendi is a 34 y.o. at 8w6d by last menstrual period consistent with 6+0 week ultrasound who presents for new OB visit today. She had vaginal bleeding early in , but has had no bleedingyesterday or today. She continues to have some cramping. This comes and goes. She also has low back pain. She has known spine issues that contribute to this. She was seeing a physical therapist prior to [facility] and her symptoms had improved. She has not been seen in physical therapy since then, and her symptoms have worsened with the . The patient's allergies and current medications were reviewed and updated as appropriate. REVIEW OF SYSTEMS: Constitutional: Negative for fatigue, fever, weight gain of more than 10 [...] Gastrointestinal: Positive for abdominal (belly) pain or cramping. Negative for constipation, diarrhea, heartburn, nausea and vomiting. Genitourinary: Positive for abnormal vaginal bleeding. Negative for incontinence, difficulty urinating, pain with urination and menses change or abnormal. Musculoskeletal: Positive for back pain. Negative for arthralgias and pain or stiffness in the joints. Neurological: Negative for numbness or shooting pain in hands, arms, legs, or feet, loss of balance or tendency to fall easily and headaches. Psychiatric/Behavioral: Positive for feeling down, depressed, or hopeless over past two weeks and feeling nervous, anxious, or on edge in past two weeks. Negative for sleep disturbance. The following systems were negative: Constitutional, Skin, Eyes, ENT, CV, Respiratory, Hematologic The patient's Past Medical History, Past Surgical History, and Social History were reviewed and updated as appropriate. OB History Para Term AB Living 6 2 2 3 2 SAB TAB Ectopic Molar Multiple Live Births 3 2 # Outcome Date GA Lbr Stephen/2nd Weight Sex Delivery Anes PTL Lv 6 Current 5 2014 SA 4 Term 03/26/12 39w0d 3.005 kg M CS-LTranv [place] 3 2009 SA 2 Term 07/26/07 41w0d M CS-LTranv [place] 1 2004 Family History Problem Relation Age of Onset ??? Diabetes Mother ??? Hyperlipidemia Mother ??? Asthma Mother ??? Hypertension Mother ??? Depression Mother ??? Seizures Mother ??? Breast cancer Mother ??? Renal failure Mother ??? COPD Father ??? Alcoholism NOS Father ??? Healthy adult Sister ??? Colon cancer Maternal Grandfather ??? Arthritis Maternal Grandmother ??? Heart disease Maternal Grandmother ??? Osteoporosis Maternal Grandmother ??? Psychiatric disorder Maternal Grandmother She does not have a family history of congenital anomalies. The father of the baby does not have a family history of congenital anomalies. OBJECTIVE Vitals: 12/09/19 1017 BP: 100/60 Pulse: 80 Resp: 20 Height: 162 cm Weight: 54 kg GENERAL: Well nourished female in no acute distress. SKIN: No rashes or lesions HEAD: Normocephalic, atraumatic. EYES: Sclerae without injection or icterus. ENT: Tympanic membranes pearly white bilaterally with positive light reflex, but calcification and scaring noted bilaterally. Nasal turbinates are mildly erythematous and edematous. Posterior oropharynx with mild erythema, no exudates. Good dentition. LYMPH NODES: Neck supple. No cervical, supraclavicular or axillary lymphadenopathy. THYROID: No thyromegaly. BREASTS: Symmetric bilaterally. No lesions or dimpling of the skin noted. No dominant masses palpable. Nipples without inversion or drainage. HEART: Regular rate and rhythm. No murmurs, rubs or gallops. LUNGS: Breathing nonlabored. Chest clear to auscultation bilaterally. No wheezes or rales. ABDOMEN: Soft, nontender. Nondistended. Normoactive bowel sounds. No masses palpable. Fundus not palpable. RECTUM: No external hemorrhoids noted. GENITALIA: External genitalia without lesions or abnormalities. Normal pubic hair distribution. Urethral meatus normal in location and appearance without masses. Vaginal mucosa is pink and moist with asmall amount of thin clear discharge present. The cervix is nulliparous and without gross lesions or abnormalities. On bimanual examination, the uterus is enlarged and 8 weeks size, nontender, there are no adnexal masses or tenderness noted. SPINE: No spinal, paraspinal or CVA tenderness. EXTREMITIES: Lower extremities nontender. No edema. GAIT: Normal. MENTAL: Alert and oriented times three. Affect pleasant. Mood happy. NEUROLOGIC: Cranial nerves II through XII grossly intact. Reflexes 2+ at patellas. ASSESSMENT / PLAN 34 y.o. at 8w6d by last menstrual period consistent with 6+0 week ultrasound who presents for new OB visit today. care: #1 Examination Other Normal First Trimester Overview: 1st trimester OB education via phone in the near future with the OB educator. Second and 3rd trimester education at 28 week visit. Gonorrhea and chlamydia and CBC already checked and normal. She will return for labs if COVID testing is negative. Nests supplies provided. She will need a Doppler at her 20 week visit. Orders: - Obstetrics and Gynecology office visit (clinic) - US OB Limited - Antibody Screen, RBC (with reflex Antibody ID) - ABORh, RBC - Hepatitis B Surface Antigen - HIV-1/-2 Ag and Ab Scrn, Plasma - Rubella Antibodies, IgG - Syphilis Total Ab w/ Reflex, Serum - Bacterial Culture, Aerobic + Susc, Urine - 25-Hydroxyvitamin D2 and D3 - Obstetrics and Gynecology - OB education visit (clinic); Future; Expected date: 12/09/2019 - Obstetrics and Gynecology office visit (clinic); Standing - Obstetrics and Gynecology office visit (clinic); Future; Expected date: 02/17/2020 - OB Anatomy [place]; Future; Expected date: 02/17/2020 - DME Blood pressure monitor; A&D [id number] FAC upper arm blood pressure monitor - DME Medical Justification: Blood pressure monitor #2 Depression Major Overview: On Wellbutrin 300 mg SR daily. She stopped Prozac 20 mg daily. She has had no thoughts of harming herself or anyone else. She participated in DBT through [facility] in [place], but that stopped with onset of COVID. She has a provider that she sees regularly through [facility]. She is scheduledto follow with her every other month, and she is able to adjust her meds. PHQ-9 score elevated at 16today. #3 Anxiety Generalized Disorder Overview: Wellbutrin 300 mg SR daily. She stopped prozac 20 mg daily. PHQ-9 score 16 and KEL 7 score 16 today.Plan close follow up of this with the provider she sees through [facility]. #4 Pain Foot Left Overview: Was on Tramadol and Tizanidine until 01/23/2019 for this. Also stopped Neurontin. This is stable andunchanged. #5 Pain Low Back Chronic Overview: S/p spinal fusion in December 2018. Back pain improved post surgery, but it has been worse during . She was seeing the physical therapist, symptoms had improved until , and they have worsened since then. She stopped neuronin. Referral to [facility] sent. #6 Attention Deficit With Hyperactivity Disorder Overview: Was on Vyvanse and stopped that with the . Has noticed a difference. If she would like to get back on medication, I recommend Adderall if treatment is needed in . She will discuss this with her provider at [facility]. #7 Insomnia Overview: She continues to struggle with sleep in . She has night sweats but wakes up very cold. Encouraged to discuss sleeping issues with her mental health provider. #8 Nausea And Vomiting Overview: Started yesterday, manageable. #9 Threatened Overview: No bleeding yesterday or today. US today shows a viable with appropriate growth. She is Rhnegative and has received 2 doses of rhogam already with this . #10 Unspecified Blood Type Rhesus Negative Overview: S/p rhogam early in . Plan RhoGAM at 28 weeks and in the period if the baby is Rh positive. #11 Infection Upper Respiratory Overview: Nasal congestion and postnasal drainage as well as sinus headache. Likely related to swelling of themucous membranes due to or possible seasonal allergies. No cough, shortness of breath, fever or sore throat. Will send for COVID testing as we have seen cases of COVID positivity with only nasal/sinus symptoms. Follow-up: In the near future for OB ed and in 10 weeks for OBFU and Anatomy US. documented in this encounter Plan of Treatment Scheduled Referrals Name Type Priority Associated Diagnoses Order S chedule Obstetrics and Outpatient Referral Routine Examination Prenata l Expected: Gynecology - OB Other Normal 12/09/2019 education visit First (Approxim ate), (clinic) Trimester Expires: 12/08/2022 documented as of this encounter Procedures Procedure Name Priority Date/Time Associated Comments Diagnosis US OB LIMITED RAD - Routine 12/09/2019 1:41 Examination Results fo r this (most inpatients PM CDT Other procedure are in and all Normal the results outpatients) First Trimester section. documented in this encounter Results US OB Limited (12/09/2019 1:41 PM CDT) P athologist Signature FHR 184 bpm CRL 28.3 mm Anatomical Region Laterality Modality Ultrasound OB RST LOS, Ultrasound ARZ LOS, Ultrasound FLA LO S, N/A Ultrasound Ultrasound ARZ LOS Specimen (Source) Anatomical Location Collection Method / Collectio n Time Received Time / Laterality Volume Narrative 12/09/2019 1:41 PM CDT Single, living intrauterine with crown-rump length of 2.8 cm corresponding to 9+ 4 weeks gestational age. ??Yolk sac is visualized. ?? Gestational sac is fundal. ??Cardiac act ivity is present at 184 beats per minute. The report for this exam was documented during the exam and is located with the images in [employer]reads. Joy MEHTA OB US PROCEDURES documented in this encounter Visit Diagnoses Diagnosis Examination Other Normal Pregna ncy First Trimester (HCC) - Primary Depression Major Anxiety Generalized Disorder Pain Foot Left Pain Low Back Chronic Attention Deficit With Hyperactivity Dis order Insomnia Nausea And Vomiting Threatened (HCC) Unspecified Blood Type Rhesus Negative Infection Upper Respiratory documented in this encounter Additional Health Concerns Assessment Noted Time PHQ-9 Depression Total Score: 16 12/09/2019 10:25 AM C DT documented as of this encounter Care Teams Job Training Specialist Relationship Specialty Start Date End Date Marisel Ferrer M.D. PCP - General Family Medicine 07/11/18 03/24/20 [address] [place] [address] documented as of this encounter
--- OUTSIDE RECORDS SUMMARY | 2021-11-28 09:14 | XMS_ITS | Encounter Summary ---
:1985 Author Organization [facility] Address [address] [place] [address] Care Team Providers Name Role Phone Marisel Ferrer M.D. Primary Care Provider [phone] Encounter Details Date Type Department Care Team Description 11/11/2019 Orders Only Department of Madelineardebbie, Exam ination Obstetrics and Olu [place] Test With Positive Gynecology in 2199 Result (Primary Dx) [place], [place] [address] [address] [place], [place] [phone] [address] (Work) [phone] Social History Tobacco Use Types Packs/Day Years [...] 11/27/2019 relatives? How often do you attend sabianist or restoration Never 01/31/2019 services? 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 ??Higher concentr ations of biotin may be found in multivitamins, hair/nail supple ments, and workout supplements. ??If the result does not ma tc clinical observations, repeat testing after patient refrains fr om the use of supplements for at least 12 hours. Specimen Anatomical Collection Method Collection Time Receive d Time (Source) Location / / Volume Laterality Blood (Blood, 11/14/2019 2:20 PM 11/14/19 20 3:32 Venous) CDT PM CDT Joy Lee M.D. LAB BLOOD ADD-ON Performing Organization Address City/State/ZIP Code Phon e Number [facility]- [address] [place] [address] [place] [address] System in [place] [address] (ABNORMAL) hCG (Human Chorionic Gonadotropin), Quantitative, (11/12/2019 3:59 PM CDT) P athologist Signature HCG, 6269 (H) <5 IU/L 11/12/2019 [place] Quantitative, 6:50 PM CDT , P Comment: Biotin has been identified by the madeline wheatley as a potential interfering substance. ??Higher concentr ations of biotin may be found in multivitamins, hair/nail supple ments, and workout supplements. ??If the result does not ma tc clinical observations, repeat testing after patient refrains fr om the use of supplements for at least 12 hours. Specimen Anatomical Collection Method Collection Time Receive d Time (Source) Location / / Volume Laterality Blood (Blood, 11/12/2019 3:59 PM 11/12/19 20 6:13 Venous) CDT PM CDT Joy Lee M.D. LAB BLOOD ADD-ON Performing Organization Address City/State/ZIP Code Phon e Number [facility] [address] [place] [address] [place] [address] System in [place] [address] documented in this encounter Visit Diagnoses Diagnosis Examination Test With Positive Result (HCC) - Primary documented in this encounter Additional Health Concerns Assessment Noted Time PHQ-9 Depression Total Score: 15 09/28/2017 3:51 PM CD T documented as of this encounter Care Teams Track Repair Worker Relationship Specialty Start Date End Date Marisel Ferrer M.D. PCP - General Family Medicine 07/11/18 03/24/[address] [place] [address] documented as of this encounter
--- OUTSIDE RECORDS SUMMARY | 2021-11-28 09:14 | XMS_ITS | Encounter Summary ---
:1985 Author Organization [facility] Address [address] [place] [address] Care Team Providers Name Role Phone Marisel Ferrer M.D. Primary Care Provider [phone] Encounter Details Date Type Department Care Team Description 11/12/2019 Hospital Encounter Department of [place], Pregnanc y Examination Laboratory Medicine [place] Test With Positive in [facility] [address] [place] [id number] [phone] Social History Tobacco Use Types Packs/Day Years [...] 11/27/2019 relatives? How often do you attend anglican or judaism Never 01/31/2019 services? 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 documented in this encounter Results (ABNORMAL) hCG (Human Chorionic Gonadotropin), Quantitative, (11/12/2019 3:59 PM CDT) P athologist Signature HCG, 6269 (H) <5 IU/L 11/12/2019 [place] Quantitative, 6:50 PM CDT , P Comment: Biotin has been identified by the madeline wheatley as a potential interfering substance. ??Higher concentr ations of biotin may be found in multivitamins, hair/nail supple ments, and workout supplements. ??If the result does not ma [facility] clinical observations, repeat testing after patient refrains fr om the use of supplements for at least 12 hours. Specimen Anatomical Collection Method Collection Time Receive d Time (Source) Location / / Volume Laterality Blood (Blood, 11/12/2019 3:59 PM 11/12/19 20 6:13 Venous) CDT PM CDT Joy Lee M.D. LAB BLOOD ADD-ON Performing Organization Address City/State/ZIP Code Phon e Number [facility]- [address] [address] [place] [address] System in [place] [address] [facility] documented in this encounter Visit Diagnoses Diagnosis Examination Test With Positive Result (HCC) documented in this encounter Additional Health Concerns Assessment Noted Time PHQ-9 Depression Total Score: 15 09/28/2017 3:51 PM CD T documented as of this encounter Care Teams Corn Chip Maker Relationship Specialty Start Date End Date Marisel Ferrer M.D. PCP - General Family Medicine 07/11/18 03/24/[address], [place] [address] documented as of this encounter
--- OUTSIDE RECORDS SUMMARY | 2021-11-28 09:14 | XMS_ITS | Encounter Summary ---
:1985 Author Organization [facility] Address [address] [place] [address] Care Team Providers Name Role Phone Marisel Ferrer M.D. Primary Care Provider [phone] Encounter Details Date Type Department Care Team Description 02/03/2019 Clinical Communication Department of Jesus Obstetrics and [place] [place] Gynecology in [address] [address] [place] [address] Social History Tobacco Use Types Packs/Day [...] How often do you attend confucianist or mandaeism Never 01/31/2019 services? 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 - 02/04/2019 1:03 PM CST No, the lab places the order for antibody identification. PEEL OPERATOR Telephone Encounter - Joy Lee M.D. - 02/04/2019 12:55 PM LYE PEEL OPERATOR Noted. I agree with plan. Do I need to place the order? PEEL OPERATOR Telephone Encounter - Chika Napier - 02/03/2019 1:50 PM CST The order will be in for additional testing and will need to be completed after her 02/14/[address] Lee. PEEL OPERATOR Telephone Encounter - Alessandra De Anda - 02/03/2019 12:52 PM CST Reason for Communication: Scooter from [facility] [place] calling, is needing an additional antibody screen added and patient has upcoming appt on 02/14, wondering if it can be done at that time Current Can Nursing/Provider leave a detailed message: yes Did the patient refuse triage through Nurse line? (for symptom based concerns): Action Needed: Name of Medication (if relevant): PEEL OPERATOR documented in this encounter Plan of Treatment Not on filedocumented as of this encounter Visit Diagnoses Not on filedocumented in this encounter Additional Health Concerns Assessment Noted Time PHQ-9 Depression Total Score: 15 09/28/2017 3:51 PM CD T documented as of this encounter Care Teams Excelsior Machine Feeder Relationship Specialty Start Date End Date Marisel Ferrer M.D. PCP - General Family Medicine 07/11/18 03/24/[address] [phone] documented as of this encounter
--- OUTSIDE RECORDS SUMMARY | 2021-11-28 09:14 | XMS_ITS | Encounter Summary ---
:1985 Author Organization [facility] Address [address] [place] [address] Care Team Providers Name Role Phone Marisel Ferrer M.D. Primary Care Provider [phone] Reason for Referral Outpatient (Routine) - Closed Specialty Diagnoses / Procedures Referred By Contact Refer red To Contact Obstetrics and Diagnoses Missed (HCC) QIANA [facility] Gynecology [place] [address] [place] [address] Referral ID Status Reason Start Date Expiration Date Visits Requ ested Visits Authorized [id number] Closed 02/25/2019 02/25/2020 1 1 Scheduling Instructions Schedule 15 minute visit ARCHITECT Reason for Visit Reason Comments Routine Visit 10+4 weeks Patient Education OB ED Miscarriage Missed AB Encounter Details Date Type Department Care Team Description 02/25/2019 Routine Department of Aravind Lee Other Normal First Trimester (Primary Dx); Obstetrics and [place] Missed (HCC); Gynecology in [address] Unspecified Blood Type Rhesus Negative; [place], [place] Depression Major; [address] [id number] Anxiety Generalized Disorder [place], [place] [phone] (Work) [phone] Social History Tobacco Use Types Packs/Day Years [...] 11/27/2019 relatives? How often do you attend pentecostal or baptist Never 01/31/2019 services? Do you belong to any clubs or organizations such as No 01/31/2019 pentecostal groups, unions, fraternal or athletic groups, or [...] at Date Recorded Female 01/11/2018 2:20 PM AIX ARCHITECT documented as of this encounter Last Filed Vital Signs Vital Sign Reading Time Taken Comments Blood Pressure 126/70 02/25/2019 1:29 PM AIX ARCHITECT Pulse - - Temperature - - Respiratory Rate - - Oxygen Saturation - - Inhaled Oxygen Concentration - - Weight 53.9 kg (118 lb 15 oz) 02/25/2019 1:29 PM AIX ARCHITECT Height - - Body Mass Index 20.56 02/14/2019 10:39 AM AIX ARCHITECT documented in this encounter Progress Joy Cosme M.D. - 02/25/2019 1:00 PM CST SUBJECTIVE SYSTEMS REVIEW Constitutional: Negative for fatigue, fever, weight gain [...] tendency to fall easily and headaches. Psychiatric/Behavioral: Negative for sleep disturbance, feeling down, depressed, or hopeless over past two weeks and feeling nervous, anxious, or on edge in past two weeks. OBJECTIVE Vitals: 02/25/19 1329 BP: 126/70 Weight: 53.9 kg PHYSICAL EXAM GEN: NAD Abd: Soft, NT, ND Lower Extremities: NT, no edema ASSESSMENT / PLAN IMPRESSION/PLAN Wendi Odonnell is a 33 y.o. female at 10w4d by last menstrual period consistent with 5+6 week ultrasound who presents for OBFU and has US findings consistent with missed . #1 Examination Other Normal First Trimester - Obstetrics and Gynecology - OB education visit (clinic) #2 Missed (HCC) Overview: Likely retroplacental hematoma noted on US at the time of the last visit that was responsible for bleeding. Bleeding has increased and US today showed intrauterine with pole consistent with 10+ 1 weeks gestational age but no cardiac activity noted. These findings are consistent with missed . Options for management have been discussed including observation, medical management with Cytotec, and dilation and curettage. Risks and benefits of each have been discussed. She would like to proceed with observation. She is Rh negative and received RhoGAM in the ER. She will return in 1 week for follow- up. Bleeding precautions discussed. Since this is her 4th miscarriage, she will collect the products of conception we will send them for pathology and genetic testing. Orders: - US OB Limited - Obstetrics and Gynecology office visit (clinic); Future; Expected date: 03/04/2019 #3 Unspecified Blood Type Rhesus Negative Overview: S/p rhogam in the ED. #4 Depression Major Overview: On Wellbutrin 300 mg SR daily. She stopped Prozac 20 mg daily. We will consider restarting this if her mood symptoms are not well managed with this. Her EPDS score was 22 two weeks ago, and was improved a little to 16 on last check. She has had no thoughts of harming herself or anyone else. She recently started DBT through [facility] in [place], and she believes that will help with her mood symptoms. She has had some situational things that she believes are contributing to mood symptoms.She has been in contact with her psychiatrist at [facility] who recommended against restarting the prozac. She has an appointment there on 02/24/2019. Assessment & Plan: Considering this missed , we will follow her mood symptoms closely as she is at risk of exacerbation. #5 Anxiety Generalized Disorder Overview: Wellbutrin 300 mg SR daily. Will consider restarting prozac 20 mg daily if symptoms not adequately managed with Wellbutrin alone. EPDS score 22 earlier in , improved to 16 on last check. KEL 7score 16 on last check, indicating mood symptoms that were not well managed. Plan close follow up ofthis, and she has an appointment with her psychiatrist scheduled on February 24. Followup: 1 week. ARCHITECT documented in this encounter Miscellaneous Notes Assessment & Plan Note - Joy Lee M.D. - 02/25/2019 2:28 PM AIX ARCHITECT Associated Problem(s): Depression Major Considering this missed , we will follow her mood symptoms closely as she is at risk of exacerbation. ARCHITECT documented in this encounter Plan of Treatment Scheduled Referrals Name Type Priority Associated Order Schedule Diagnoses Obstetrics and Outpatient Referral Routine Missed Exp ected: Gynecology office ([facility]) 03/04/2019 visit (clinic) (Approximate) , Expires: 02/25/2022 documented as of this encounter Procedures Procedure Name Priority Date/Time Associated Comments Diagnosis US OB LIMITED RAD - Routine 02/25/2019 2:31 Missed Results for this (most inpatients PM AIX ARCHITECT ([facility]) procedure a re in and all the results outpatients) section. documented in this encounter Results US OB Limited (02/25/2019 2:31 PM AIX ARCHITECT) P athologist Signature CRL 32.3 mm Anatomical Region Laterality Modality Ultrasound OB RST LOS, Ultrasound ARZ LOS, Ultrasound FLA LO S, N/A Ultrasound Ultrasound ARZ LOS Specimen (Source) Anatomical Location Collection Method / Collectio n Time Received Time / Laterality Volume Narrative 02/25/2019 2:31 PM AIX ARCHITECT Nonviable intrauterine noted with crown-rump length of 3.23 cm corresponding to 10+1 weeks gestational age. ??No cardiac activity noted. ?? Yolk sac is visible. ??Gestational sac i s fundal. The report for this exam was documented during the exam and is located with the images in [employer]reads. Joy Lee M.D. IMBela OB US PROCEDURES documented in this encounter Visit Diagnoses Diagnosis Examination Other Normal Pregna ncy First Trimester (HCC) - Primary Missed (HCC) Unspecified Blood Type Rhesus Negative Depression Major Anxiety Generalized Disorder documented in this encounter Additional Health Concerns Assessment Noted Time PHQ-9 Depression Total Score: 15 09/28/2017 3:51 PM CD T documented as of this encounter Care Teams Fishery Biologist Relationship Specialty Start Date End Date Marisel Ferrer M.D. PCP - General Family Medicine 07/11/18 [address] [phone] documented as of this encounter
--- OUTSIDE RECORDS SUMMARY | 2021-11-28 09:14 | XMS_ITS | Encounter Summary ---
:1985 Author Organization [facility] Address [address] [place] [address] Care Team Providers Name Role Phone Marisel Ferrer M.D. Primary Care Provider [phone] Encounter Details Date Type Department Care Team Description 2019 E-Visit Express [facility] Online Emilee Lundberg RE : E-Visit Submission: Services in [place] rajinder Canela R.N. COVID-19 (Coronavirus) [address] [facility] [facility] [address] [facility] [place] [phone] Social History Tobacco Use Types Packs/Day Years [...] 11/27/2019 relatives? How often do you attend denominational or jainism Never 01/31/2019 services? Do you belong to any clubs or organizations such as No 01/31/2019 denominational groups, unions, fraternal or athletic groups, or [...] at Date Recorded Female 01/11/2018 2:20 PM ACREAGE REPORTER documented as of this encounter Plan of Treatment Not on filedocumented as of this encounter Visit Diagnoses Diagnosis Infection Upper Respiratory Viral - Prim joanna documented in this encounter Additional Health Concerns Assessment Noted Time PHQ-9 Depression Total Score: 15 09/28/2017 3:51 PM CD T documented as of this encounter Care Teams Tile Professional Relationship Specialty Start Date End Date Marisel Ferrer M.D. PCP - General Family Medicine 07/11/18 03/24/[address] [phone] documented as of this encounter
--- OUTSIDE RECORDS SUMMARY | 2021-11-28 09:14 | XMS_ITS | Encounter Summary ---
:1985 Author Organization [facility] Address [address] [place] [address] Care Team Providers Name Role Phone Marisel Ferrer M.D. Primary Care Provider Reason for Visit Reason Comments ADHD Outpatient (Routine) - Closed Specialty Diagnoses / Procedures Referred By Contact Refer red To Contact Family Medicine Diagnoses Attention Deficit With Hyperactivity Disorder Joy Lee [facility] ANNY Vo M.D. [address] [phone] Referral ID Status Reason Start Date Expiration Date Visits Requ ested Visits Authorized [id number] Closed 01/31/2019 01/31/2020 1 1 Encounter Details Date Type Department Care Team Description 02/14/2019 Office Visit Department of [facility] Anusha pierce Deficit With Medicine, Marisel Moreau, Hyperac tivity Disorder Clinic, in [place] [address] [place] [address] [place] [phone] Social History Tobacco Use Types Packs/Day Years [...] How often do you attend caodaism or congregation Never 01/31/2019 services? 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/2018 2:20 PM WAISTLINE JOINER LOCKSTITCH documented as of this encounter Last Filed Vital Signs Vital Sign Reading Time Taken Comments Blood Pressure 110/64 02/14/2019 10:39 AM WAISTLINE JOINER LOCKSTITCH Pulse 60 02/14/2019 10:39 AM WAISTLINE JOINER LOCKSTITCH Temperature 36.9 ??C (98.4 ??F) 02/14/2019 10:39 AM WAISTLINE JOINER LOCKSTITCH Respiratory Rate 18 02/14/2019 10:39 AM WAISTLINE JOINER LOCKSTITCH Oxygen Saturation - - Inhaled Oxygen Concentration - - Weight 52.2 kg (115 lb 1.3 02/14/2019 10:39 AM oz) WAISTLINE JOINER LOCKSTITCH Height 162 cm (5' 3.78) 02/14/2019 10:39 AM without sh oes WAISTLINE JOINER LOCKSTITCH Body Mass Index 19.89 02/14/2019 10:39 AM WAISTLINE JOINER LOCKSTITCH documented in this encounter Progress Notes Marisel Ferrer M.D. - 02/14/2019 10:45 AM CST SUBJECTIVE Chief Complaint Patient presents with ??? ADHD HISTORY OF PRESENT ILLNESS Wendi Odonnell is a 33 y.o. female In her first trimester of who presents to the clinic today for ADHD. She has a history of ADHD and was previously on Vyvanse. She has stopped this since becoming . She discussed this with Dr. Lee and Dr. Lee recommended that she consult her primary provider with the recommendation of using Adderall if treatment was deemed necessary. Wendi does have a psychiatrist, Marianna Escamilla, who was prescribing her Vyvanse. The patient denies any additional questions or concerns at this time. REVIEW OF SYSTEMS Please see HPI for pertinent positives, otherwise rest of ROS negative. CURRENT MEDICATIONS Current Outpatient Medications Medication Sig Dispense Refill ??? acetaminophen (TYLENOL) 500 mg tablet Take 2 tablets (1,000 mg total) by mouth 4 (four) times a day. ??? buPROPion (WELLBUTRIN SR) 200 mg 12 hr tablet Take 1 tablet by mouth every AM ??? clindamycin-benzoyl peroxide (BENZACLIN) 1-5 % gel Apply 1 application topically every morning. (Patient taking differently: Apply 1 application topically daily as needed. ) 50 g 3 ??? folic acid 1 mg tablet Take 4 tablets (4 mg total) by mouth daily. 90 tablet 3 ??? vitamin-iron fumarate-FA 28 mg iron- 800 mcg per tablet Take 1 tablet by mouth daily. ??? FLUoxetine (PROzac) 20 mg capsule Take 1 capsule by mouth every AM after solid food ??? gabapentin (NEURONTIN) 300 mg capsule Take [...] 1 ??? gabapentin (NEURONTIN) 300 mg capsule TAKE 2 CAPSULES BY MOUTH THREE TIMES DAILY NEEDED FOR PAIN ??? tiZANidine (ZANAFLEX) 2 mg tablet 1 [...] No current facility-administered medications for this visit. ALLERGIES / CONTRAINDICATIONS Allergies Allergen Reactions ??? Morphine Other (see comments) and Edema Facial swelling and reddness MEDICAL HISTORY Past Medical History: Diagnosis Date ??? Alcoholism Personal History ([facility]) [phone] ??? Borderline Personality Disorder ([facility]) 12/05/2011 ??? 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 Depression Major Recurrent Without Psychotic Features (HCC) ??? Generalized anxiety disorder 06/25/2015 ??? 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 ~ March 2016: S1 TF epidural steroid injection by Dr. Jacobsen. ??? Pain Low Back Chronic 12/24/2014 ??? Suicide Attempt Personal History overdose SURGICAL HISTORY Past Surgical History: Procedure Laterality Date ??? SECTION ??? SECTION 07/26/07 ??? DECOMPRESSION SPINE - POSTERIOR LUMBAR N/A 01/07/2018 Procedure: L5-S1 microdiskectomy nerve root decompression.; Surgeon: Matthias Mtz M.D.; Location: [facility] ??? DILATION AND CURETTAGE OF UTERUS N/A 07/28/2003 D&C - Dilatation and curettage ??? SPINAL FUSION 12/18/2018 L5 PREVENTIVE SERVICES: SOCIAL HISTORY Social History Tobacco Use ??? Smoking status: Never Smoker ??? Smokeless tobacco: Never Used Substance Use Topics ??? Alcohol use: Not Currently Alcohol/week: 3.0 standard drinks Types: 3 Glasses of wine per week Binge frequency: Never Comment: Last use several months ago ??? Drug use: Never OBJECTIVE VITAL SIGNS BP 110/64 Pulse 60 Temp 36.9 ??C (Temporal) Resp 18 Ht 162 cm Comment: without shoes Wt 52.2 kg LMP 12/13/2018 BMI 19.89 kg/m?? PHYSICAL EXAMINATION General: Patient is alert and oriented times three, in no acute distress, good hygiene and is dressed appropriately. ASSESSMENT / PLAN #1 Attention Deficit With Hyperactivity Disorder PLAN: She will schedule an appointment with Marianna Escamilla to discuss medication management and initiation of a different stimulant. #2 Follow up PLAN: The patient will contact the clinic with any new or worsening symptoms. This document serves as a record of services personally performed by Dr. Marisel Ferrer.It was created on their behalf by Suzy Coleman, a trained medical billing clerk. The creation of this record is based on the scribe's personal observations and the provider's statements to them. This documenthas been checked and approved by the attending provider. TLINE JOINER LOCKSTITCH documented in this encounter Plan of Treatment Not on filedocumented as of this encounter Visit Diagnoses Diagnosis Attention Deficit With Hyperactivity Dis order documented in this encounter Additional Health Concerns Assessment Noted Time PHQ-9 Depression Total Score: 15 09/28/2017 3:51 PM CD T documented as of this encounter Care Teams General Warehouse Worker Relationship Specialty Start Date End Date Marisel Ferrer M.D. PCP - General Family Medicine 07/11/18 03/24/[address] [phone] documented as of this encounter
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
--- OUTSIDE RECORDS SUMMARY | 2021-11-28 09:14 | XMS_ITS | Encounter Summary ---
:1985 Author Organization [facility] Address [address] [place] [address] Care Team Providers Name Role Phone Marisel Ferrer M.D. Primary Care Provider [phone] Encounter Details Date Type Department Care Team Description 01/31/2019 Hospital Encounter Department of Alona Lee Laboratory Medicine [place] Other Normal in [place], [address] Tr[address] [place], [place] [phone] Social History Tobacco Use Types Packs/Day Years [...] 11/27/2019 relatives? How often do you attend holiness or adventism Never 01/31/2019 services? Do you belong to any clubs or organizations such as No 01/31/2019 holiness groups, unions, fraternal or athletic groups, or [...] to pay for the very basics like [employer] hat hard 11/27/2019 food, housing, medical care, [...] at Date Recorded Female 01/11/2018 2:20 PM FATS AND OILS LOADER documented as of this encounter Medications at Time of Discharge Medication Sig Dispensed Refills Start Date End Date FLUoxetine (PROzac) 20 Take 1 capsule by [...] Left daily. acetaminophen (TYLENOL) Take 2 tablets (1,000 0 1 03/09/2017 12/09/2019 500 mg tablet mg total) by mouth 4 (four) times a day. buPROPion (WELLBUTRIN Take 1 tablet by 0 06/19/19 18 12/09/2019 SR) 200 mg 12 hr tablet mouth every AM clindamycin-benzoyl Apply 1 application 50 g 3 019 03/06/2019 peroxide (BENZACLIN) 1-5 topically every % gel morning. documented as of this encounter Plan of Treatment Not on filedocumented as of this encounter Procedures Procedure Name Priority Date/Time Associated Diagnosis Comme nts BACTERIAL CULTURE, Routine 01/31/2019 10:15 AM Examination Pre louise Results for this AEROBIC + SUSC, FATS AND OILS LOADER Other Normal procedure ar e in URINE First the results Trimester section. documented in this encounter Results (ABNORMAL) Bacterial Culture, Aerobic + Susc, Urine (01/31/2019 10:15 AM FATS AND OILS LOADER) Analysis Performed At Patho logist Time Signature Urine Culture Mixed 02/01/2019 MKTO sumeet. (A) 4:15 PM FATS AND OILS LOADER Specimen Anatomical Collection Method Collection Time Receive d Time (Source) Location / / Volume Laterality Urine (Urine, 01/31/2019 10:15 01/31/2019 7:01 Midstream) AM FATS AND OILS LOADER PM FATS AND OILS LOADER Comment: Specimen Source Site: Urine Joy Lee M.D. LAB MICROBIOLOGY - GENERAL O RDERABLES Performing Organization Address City/State/ZIP Code Phon e Number [facility]- [address] [place] [id number] [place] [address] [place] [address] System in [address] documented in this encounter Visit Diagnoses Diagnosis Examination Other Normal Pregna ncy First Trimester (HCC) documented in this encounter Additional Health Concerns Assessment Noted Time PHQ-9 Depression Total Score: 15 09/28/2017 3:51 PM CD T documented as of this encounter Care Teams Program Consultant Relationship Specialty Start Date End Date Marisel Ferrer M.D. PCP - General Family Medicine 07/11/18 03/24/[address] [place] [phone] documented as of this encounter
--- OUTSIDE RECORDS SUMMARY | 2021-11-28 09:14 | XMS_ITS | Encounter Summary ---
:1985 Author Organization [facility] Address [address] [place] [address] Care Team Providers Name Role Phone Marisel Ferrer M.D. Primary Care Provider [phone] Encounter Details Date Type Department Care Team Description 04/04/2019 Clinical Communication Department of Jesus Obstetrics and [place] Gynecology in [address] [place], [place] [address] [facility] [address] [place], [place] [phone] (Work) [phone] Social History Tobacco Use Types Packs/Day Years [...] 11/27/2019 relatives? How often do you attend moravian or mormon Never 01/31/2019 services? Do you belong to any clubs or organizations such as No 01/31/2019 moravian groups, unions, fraternal or athletic groups, or [...] at Date Recorded Female 01/11/2018 2:20 PM DOCUMENT REVIEW ATTORNEY documented as of this encounter Miscellaneous Notes Telephone Encounter - Virgen Harris R.N. - 04/07/2019 8:20 AM CST Name of person contacted: Patient Relationship to patient: Not applicable Call back number: n/a Process Description Writer: Not applicable Information provided: results/recommendations. Does not wish to schedule any further consults at this time. Advised to call back if she desires in the future military personnel specialist/patient received and understood education/information provided: Yes military personnel specialist/patient agreed to the Plan of Care: Yes MENT REVIEW ATTORNEY Telephone Encounter - Joy Lee M.D. - 04/04/2019 6:07 PM DOCUMENT REVIEW ATTORNEY Please let Wendi know that the genetic studies returned normal on the products of the . 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 If she would like to discuss the recurrent losses further, she should schedule an appointment MENT REVIEW ATTORNEY documented in this encounter Plan of Treatment Not on filedocumented as of this encounter Visit Diagnoses Not on filedocumented in this encounter Additional Health Concerns Assessment Noted Time PHQ-9 Depression Total Score: 15 09/28/2017 3:51 PM CD T documented as of this encounter Care Teams Distribution Operations Manager Relationship Specialty Start Date End Date Marisel Ferrer M.D. PCP - General Family Medicine 07/11/18 03/24/20 [address], [place] [address] documented as of this encounter
--- OUTSIDE RECORDS SUMMARY | 2021-11-28 09:14 | XMS_ITS | Encounter Summary ---
:1985 Author Organization [facility] Address [address] [place] [address] Care Team Providers Name Role Phone Marisel Ferrer M.D. Primary Care Provider [phone] Encounter Details Date Type Department Care Team Description 02/25/2019 Silent Schedule Department of Obstetrics [place], and Gynecology in [place], [place] [address] [phone] (Wo rk) Social History Tobacco Use Types [...] How often do you attend confucianist or jainism Never 01/31/2019 services? 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/2018 2:20 PM BLADDER CLEANER documented as of this encounter Plan of Treatment Not on filedocumented as of this encounter Procedures Procedure Name Priority Date/Time Associated Comments Diagnosis US OB LIMITED RAD - Routine 02/25/2019 2:31 Missed Results for this (most inpatients PM BLADDER CLEANER (HCC) procedure a re in and all the results outpatients) section. documented in this encounter Results US OB Limited (02/25/2019 2:31 PM BLADDER CLEANER) P athologist Signature CRL 32.3 mm Anatomical Region Laterality Modality Ultrasound OB RST LOS, Ultrasound ARZ LOS, Ultrasound FLA LO S, N/A Ultrasound Ultrasound ARZ LOS Specimen (Source) Anatomical Location Collection Method / Collectio n Time Received Time / Laterality Volume Narrative 02/25/2019 2:31 PM BLADDER CLEANER Nonviable intrauterine noted with crown-rump length of [...] documented as of this encounter Care Teams Blood Bank Assistant Relationship Specialty Start Date End Date Marisel Ferrer M.D. PCP - General Family Medicine 07/11/18 03/24/20 [address] [place] [phone] documented as of this encounter
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
--- OUTSIDE RECORDS SUMMARY | 2021-11-28 09:14 | XMS_ITS | Encounter Summary ---
:1985 Author Organization [facility] Address [address] [place] [address] Care Team Providers Name Role Phone Marisel Ferrer M.D. Primary Care Provider [phone] Reason for Visit Reason Onset Date Comments PA 03/06/2019 Encounter Details Date Type Department Care Team Description 03/06/2019 Clinical Communication Department of Marylou Urena PA Obstetrics and R.N. Gynecology in [address] [place], [place] [address] [facility] [address] [address] [place], [place] [phone] (Work) [phone] Social History Tobacco Use Types Packs/Day Years [...] 11/27/2019 relatives? How often do you attend scientologist or alevism Never 01/31/2019 services? Do you belong to any clubs or organizations such as No 01/31/2019 scientologist groups, unions, fraternal or athletic groups, or [...] at Date Recorded Female 01/11/2018 2:20 PM PUBLISHING DIRECTOR documented as of this encounter Miscellaneous Notes Telephone Encounter - Sofia Parada - 03/06/2019 3:17 PM CST PA for Suction dilation and curettage with Jesus at [facility] on 03/20/19 has been sent. ISHING DIRECTOR Telephone Encounter - Marylou Urena R.N. - 03/06/2019 1:53 PM CST [facility] Surgery Clinic Checklist Patient Contact Number: [phone] Surgeon: Dr. Lee Surgical Service: (_) Orthopedics (_) General surgery (_) Ophthalmology (_) Podiatry (_) ENT (_) Urology (X) OB / Gynecology (_) Other Date of Surgery: 03/20/2019 Place of Surgery: [facility] Procedure (as written on Consent): Suction dilation and curettage Right, Left, Bilateral, N/A: N/A Diagnosis (reason for surgery): Missed ICD-10: 71206 CPT:O02.1 Case Type: (_) Outpatient (_) AM Admit (_) Inpatient (X) One day surgery Pre-op MD: Dr. Lee Post-Op Appt:(time frame when to return): 2 weeks Surgery Brochure Given: (X) Yes (_) No (_) Mailed to Patient ISHING DIRECTOR documented in this encounter Plan of Treatment Not on filedocumented as of this encounter Visit Diagnoses Not on filedocumented in this encounter Additional Health Concerns Assessment Noted Time PHQ-9 Depression Total Score: 15 09/28/2017 3:51 PM CD T documented as of this encounter Care Teams Reading Tutor Relationship Specialty Start Date End Date Marisel Ferrer M.D. PCP - General Family Medicine 07/11/18 03/24/[address] [phone] documented as of this encounter
--- OUTSIDE RECORDS SUMMARY | 2021-11-28 09:14 | XMS_ITS | Encounter Summary ---
:1985 Author Organization [facility] Address [address] [place] [address] Care Team Providers Name Role Phone Marisel Ferrer M.D. Primary Care Provider [phone] Encounter Details Date Type Department Care Team Description 12/09/2019 Silent Schedule Department of Obstetrics [place], and Gynecology in [place], [place] [address] [phone] (Wo rk) Social History Tobacco Use Types [...] How often do you attend protestant or methodist Never 01/31/2019 services? Do you belong to [...] at Date Recorded Female 01/11/2018 2:20 PM SOCIAL WORKER MASTERS documented as of this encounter Plan of [...] documented as of this encounter Care Teams Cocoa Mill Operator Relationship Specialty Start Date End Date Marisel Ferrer M.D. PCP - General Family Medicine 07/11/18 03/24/20 [address], [place] [address] documented as of this encounter
--- OUTSIDE RECORDS SUMMARY | 2021-11-28 09:15 | XMS_ITS | Encounter Summary ---
:1985 Author Organization [facility] Address [address] [place] [address] Care Team Providers Name Role Phone Kandi Alberts APRN C.N.PGordon Primary Care Provider [phone] Reason for Referral Outpatient (Routine) - Closed Specialty Diagnoses / Procedures Referred By Contact Refer july To Contact Pain Medicine Diagnoses [facility] FL Lumbar Spine Transforaminal Epidural Injection Left ND INJ ANES FORAMEN EPI LUMB SNGL HC INJ ANES FORAMEN EPI LUMB SNGL ND INJ ANES FORAMEN EPI LUMB SNGL M.D. [address] [place] [phone] Referral ID Status Reason Start Date Expiration Date Visits Requ ested Visits Authorized [id number] Closed 03/27/2018 03/27/2019 1 1 ET TEST FIRE WORKER Reason for Visit Outpatient (Routine) - Closed Specialty Diagnoses / Procedures Referred By Contact Refer july To Contact Orthopedic Surgery Bridger Caldwell M .D. [facility] [address] [place] [address] Referral ID Status Reason Start Date Expiration Date Visits Requ ested Visits Authorized [id number] Closed 01/07/2018 01/07/2019 1 1 Encounter Details Date Type Department Care Team Description 03/27/2018 Office Visit Department of Bri Mtz Radijacksonlopat hy Lumbar Orthopedic Surgery fazal Higgins M.D. (Primary Dx) [place], [place] [address] [place] [address] [place] [phone] Social History Tobacco Use Types Packs/Day Years Used Date Smoking Tobacco: Never Smokeless Tobacco: Never Alcohol Use Standard Drinks/Week Comments Yes 3 (1 standard drink = 0.6 oz pure alcoho l) Alcohol Habits Answer Date Recorded How often [...] How often do you attend scientology or yarsani Never 01/31/2019 services? Do you belong to any clubs or organizations such as 01/31/2019 scientology groups, unions, fraternal or athletic [...] or getting things needed for daily living? Sex Assigned at Date Recorded Female 01/11/2018 2:20 PM ROCKET TEST FIRE WORKER documented as of this encounter Progress Notes Bri Mtz M.D. - 03/27/2018 2:30 PM CST SUBJECTIVE PATIENT: Wendi Odonnell DATE OF : 1985 SUBJECTIVE: Wendi Odonnell is a 32 y.o. female status post: L5-S1 Microdiskectomy on 01/07/18 Current status: Ms Odonnell returns. She is a challenging case. She had an ossified left L5-S1 disc protrusion producing significant left S1 neurologic compression, worse than was expected on preop MRI. Weperformed the posterior decompression/diskectomy on 07 January 2018. She had an excellent immediate response to surgery. She was quite happy. Unfortunately, shortly thereafter she began developing progressive and recurrent symptoms in her LLE. We have seen her now a couple times. The symptoms are notimproving on their own. For this reason we ordered labs today. They were normal. She has absolutely no evidence of infection. We also ordered MRI. The MRI shows no evidence of recurrent disc herniationor recurrent stenosis. Unfortunately, what is seen is that there is epidural fibrosis encasing the left S1 nerve root. At this point in time I am referring her to the pain management service. I am asking that they start with a left L5/S1 TF RITA. Hopefully this will arrest the scarring process. Hopefully this will also improve her symptoms. If we are unable to get relief with injection alone, she may be a candidate for spinal cord stimulator. There is no further spine surgical options for this case. She understands that this was a challenging situation. She knew that there was a chance that we wouldnot obtain a lasting benefit or even a benefit at all given the pattern of her disease and the chronicity. However, given the fact she had such an excellent early outcome, my hope is that if we are able to control the scar we may get the ship righted and her back to doing well. If were not able to do this, then a spinal cord stimulator with or without the assistance of PRC will be our best option. She is good with this plan. Level of satisfaction with her current outcome: She did well and now has recurrences. She appreciates the care, but we are both dissappointed in the outcome at this point. Preoperatively, her symptoms included: Back and left leg pain ?? Symptom Distribution: Back: 50% Le% Left leg 100% Postoperative Symptom Change: She reports that her: Back pain symptoms have stayed the same. Left lower extremity symptoms have stayed the same. She denies new radicular or neurological symptoms. Spine ROS: Symptom location and intensity: Back-NRS: Severe Impact: Severe. LLE-NRS: Severe Impact: Severe. Neurological Deficits: None reported. Denies weakness, altered sensation or problems with bowel/bladder/balance/manual dexterity. OBJECTIVE PHYSICAL EXAMINATION: Constitutional: Alert and Oriented x 3 Abdomen: Soft, Nontender Skin: Incision (Posterior Midline): clean, dry and intact. Well healed. No evidence of infection. Distal extremities are warm and well perfused. Motor: No new myotomal deficits noted compared to preoperative state. Lower Extremity: Left Right Iliopsoas: 5/5 5/5 Quadriceps: 5/5 5/5 Tibialis Ant: 5/ 5/5 EHL: / 5/5 Gastrocs: Give Way /5 Hamstrings: / 5/5 Sense: No new dermatomal deficits noted compared to preoperative state. EXCEPT her left S1 paresthesia has become more of a dysthesia. We have discussed desensitization therapy which she should start. Reflexes: Pat Ach RIGHT 2-3 1 LEFT 2-3 0 Straight Leg Raise: Right: No Left: No Gait: Ambulating without assistance. Antalgic with short stride on left. Assistive Device: None. IMAGING: XR LSP: 03/27/18 and MRI c Christiano LSP. X-rays unremarkable. There is no instability. MRI demonstrates that there is no clear recurrent disc herniation. There is a generous dorsal decompression that remainspatent. The left S1 nerve root moved into this decompressed area. The area directly ventral to the nerve root, has gadolinium enhancement consistent with scar at the protrusion/discectomy site. There is some encasement of the left S1 nerve root from this. ASSESSMENT / PLAN ASSESSMENT: 1. S/p: L5-S1 Microdiskectomy on 01/07/18 2. Epidural fibrosis - Left S1 PLAN: Referred for Left L5/1 TF-RITA and general pain management consult, as she may need SCS in the futureand/or PRC. Next Follow-up: 9 months post-op I personally spent over half of a total of at least 10 minutes face to face with the patient in counseling and discussion and/or coordination of care as described above. ET TEST FIRE WORKER documented in this encounter Plan of Treatment Not on filedocumented as of this encounter Results FL LUMBAR SPINE TRANSFORAMINAL EPIDURAL INJECTION LEFT (04/17/2018 1:22 PM ROCKET TEST FIRE WORKER) Specimen (Source) Anatomical Location Collection Method / Collectio n Time Received Time / Laterality Volume Narrative Donavan Pisano M.D. - 04/17/2018 1:10 PM ROCKET TEST FIRE WORKER Donavan Pisano M.D. ? 04/17/2018 ??1:30 PM FL Lumbar Spine Transforaminal Epidural Injection Left (L5-S1) Date/Time: 04/17/2018 1:10 PM Performed by: DONAVAN PISANO Authorized by: BRI MTZ Care team members present: ??Kirk Harding M.D. 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 Left L5 ??Needle or RF cannula: ??Spinal ??Needle size: ??22 G ??Needle length: ??5 in ??Patient position: prone ??Fluoroscopic guidance: Yes ?? Medication administered: ??Total volume of injectate (mL): ??2 ??Total steroid in injectate (mg): ??10 ??5 mL lidocaine 10 mg/mL (1 %) (Local) ??1 mL lidocaine 20 mg/mL (Injectate) ??10 mg dexamethasone 10 mg/mL (Injecta te) ??1 mL iohexol 300 mg iodine/mL Anesthetic/Sedation Details: ??Anesthesia method: ??Local infiltrati on ??Lidocaine 1%: 5 mL Procedure details: ??Transforaminal epidural injection - l umbar: After identifying the appropriate pedicle fluoroscopically wit h an oblique view. A spinal needle was then advanced under fluoroscopic cherelle dance to the posterior aspect of the neural foramen. Appropriate foramina l depth was determined with a lateral fluoroscopic view, and AP visual ization confirmed needle positioning at approximately the 6 o'rachna ck position relative to the pedicle. After negative aspiration, cont rast was injected using live fluoroscopy and digital subtraction aryan ography, confirming appropriate transforaminal spread without evidence o f intravascular or intrathecal uptake. A local anesthetic test dose con sisting of 1 mL of 2% lidocaine was injected through the needle. ??After an appropriate period of observation, a directed neurological exa m was performed which revealed no new neurologic deficits. Next, the injec flower was injected slowly and incrementally into the epidural space. ? ?Following the injection the needle was withdrawn flushed with lidocaine as it was fully extracted. The patient tolerated the procedure well and there were no apparent complications. After appropriate observa tion, the patient was dismissed in good condition under their own power. ? Comments: ?? Clear epidural and perineural spread . Patient reports no change in pain. Consent: ??Consent obtained: ??Written ??The benefits, risks and alternatives to the procedure and the potential need for sedation or anesthesia as well as the names, roles, and responsibilities of healthcare team memb ers performing significant interventional tasks were discussed with the patient and/or decision maker.: yes ?The benefits, risks and alternatives to the possible need for blood products were discussed with the patient and/or decision maker.: ??Consent for transfusion was obtained [place] protocol: ??All relevant documentation and testin g were reviewed and available. All required blood products, implants, devic es and/or special equipment were made available as applicable. The pre-pr ocedure verification was conducted, the correct site was marked i f required, and the procedural time out was conducted prior to performi ng the procedure and confirmed in a procedural pause.: yes ?? Pre-procedure details: ??Procedure purpose: ??Therapeutic ?Appropriate hand hygiene, gown, cap, mask, protective eyewear, sterile gloves, skin preparation, sterile drape, and strict aseptic technique were utilized as applicable for the procedure : yes ?Site preparation: ??Chlorhexidine Bri MEHTA FLUOROSCOPY PROCEDURES documented in this encounter Visit Diagnoses Diagnosis Radiculopathy Lumbar - Primary Radiculopathy Lumbar documented in this encounter Additional Health Concerns Assessment Noted Time PHQ-9 Depression Total Score: 15 09/28/2017 3:51 PM CD T documented as of this encounter Care Teams Mold Shop Supervisor Relationship Specialty Start Date End Date Kandi Alberts, TATY, C.N.P. PCP - General 07/27/16 07/10/[address] [phone] documented as of this encounter
--- OUTSIDE RECORDS SUMMARY | 2021-11-28 09:15 | XMS_ITS | Encounter Summary ---
:1985 Author Organization [facility] Address [address] [place] [address] Care Team Providers Name Role Phone Kandi Alberts APRN C.N.P. Primary Care Provider [phone] Encounter Details Date Type Department Care Team Description 03/01/2018 Orders Only Department of Aster Correa Abnormal La boratory Orthopedic Surgery in DAVID POSEY, M.S. Results (Primary Dx) [place], [place] [address] [facility] [address] [place] [phone] Social History Tobacco Use Types Packs/Day Years [...] 11/27/2019 relatives? How often do you attend jainism or congregation Never 01/31/2019 services? Do you belong to any clubs or organizations such as No 01/31/2019 jainism groups, unions, fraternal or athletic groups, or [...] at Date Recorded Female 01/11/2018 2:20 PM SQL PROGRAMMER documented as of this encounter Plan of Treatment Not on filedocumented as of this encounter Results CRP (C-Reactive Protein) (03/27/2018 1:16 PM SQL PROGRAMMER) P athologist Signature C-Reactive <3.0 <=8.0 mg/L 03/27/2018 [facility] Protein (CRP), 2:23 PM SQL PROGRAMMER LABORATORIES - [facility] Specimen Anatomical Collection Method Collection Time Receive d Time (Source) Location / / Volume Laterality Blood (Blood, 03/27/2018 1:16 PM 03/27/19 19 1:38 Venous) SQL PROGRAMMER PM SQL PROGRAMMER DAVID Joseph APRN, M.S. LAB BLOOD ADD-ON Performing Organization Address City/[facility] Code Phon e Number [facility] LABORATORIES - [address] [address] 05 [facility] Sedimentation Rate (03/27/2018 1:16 PM SQL PROGRAMMER) [employer] Method Time Signature Sedimentation 5 0 - 29 03/27/2018 [facility] Rate, B mm/1 h 3:59 PM SQL PROGRAMMER LABORATORIES - [facility] Specimen Anatomical Collection Method Collection Time Receive d Time (Source) Location / / Volume Laterality Blood (Blood, 03/27/2018 1:16 PM 03/27/19 19 1:37 Venous) SQL PROGRAMMER PM SQL PROGRAMMER DAVID Joseph APRN, M.S. LAB BLOOD ADD-ON Performing Organization Address City/State/[facility] Phon e Number [facility] LABORATORIES - [address] [address] 05 [facility] (ABNORMAL) CBC with Differential, Blood (03/27/2018 1:16 PM SQL PROGRAMMER) [facility] gist Method Time Signature Hemoglobin 12.8 11.6 - 03/27/2018 [facility] 15.0 g/dL 1:46 PM SQL PROGRAMMER LABORATORIES - [facility] Hematocrit 38.6 35.5 - 03/27/2018 [facility] 44.9 % 1:46 PM SQL PROGRAMMER LABORATORIES - [facility] Erythrocytes 4.45 3.92 - 03/27/2018 [facility] 5.13 1:46 PM SQL PROGRAMMER LABORATORIES - x10(12)/L [facility] MCV 86.7 78.2 - 03/27/2018 [facility] 97.9 fL 1:46 PM SQL PROGRAMMER LABORATORIES - [facility] RBC Distrib 12.1 (L) 12.2 - 03/27/2018 [facility] Width 16.1 % 1:46 PM SQL PROGRAMMER LABORATORIES - [facility] Platelet Count 222 157 - 371 03/27/2018 [facility] x10(9)/L 1:46 PM SQL PROGRAMMER LABORATORIES - [facility] Leukocytes 6.6 3.4 - 9.6 03/27/2018 [facility] x10(9)/L 1:46 PM SQL PROGRAMMER LABORATORIES - [facility] Neutrophils 4.16 1.56 - 03/27/2018 [facility] 6.45 1:46 PM SQL PROGRAMMER LABORATORIES - x10(9)/L [facility] Lymphocytes 1.92 0.95 - 03/27/2018 [facility] 3.07 1:46 PM SQL PROGRAMMER LABORATORIES - x10(9)/L [facility] Monocytes 0.39 0.26 - 03/27/2018 [facility] 0.81 1:46 PM SQL PROGRAMMER LABORATORIES - x10(9)/L [facility] Eosinophils 0.08 0.03 - 03/27/2018 [facility] 0.48 1:46 PM SQL PROGRAMMER LABORATORIES - x10(9)/L [facility] Basophils 0.03 0.01 - 03/27/2018 [facility] 0.08 1:46 PM SQL PROGRAMMER LABORATORIES - x10(9)/L [facility] Specimen Anatomical Collection Method Collection Time Receive d Time (Source) Location / / Volume Laterality Blood (Blood, 03/27/2018 1:16 PM 03/27/19 19 1:37 Venous) SQL PROGRAMMER PM SQL PROGRAMMER Aster Correa APRN, STORES CLERK, M.S. LAB BLOOD ADD-ON Performing Organization Address City/State/ZIP Code Phon e Number [facility] LABORATORIES - [address] [place], [place] [address] [facility] documented in this encounter Visit Diagnoses Diagnosis Abnormal Laboratory Results - Primary documented in this encounter Additional Health Concerns Assessment Noted Time PHQ-9 Depression Total Score: 15 09/28/2017 3:51 PM CD T documented as of this encounter Care Teams Airborne Electronics Analyst Relationship Specialty Start Date End Date Kandi Alberts APRN, C.N.P. PCP - General 07/27/16 07/10/[address] [phone] documented as of this encounter
--- OUTSIDE RECORDS SUMMARY | 2021-11-28 09:15 | XMS_ITS | Encounter Summary ---
:1985 Author Organization [facility] Address [address] [place] [address] Care Team Providers Name Role Phone Marisel Ferrer M.D. Primary Care Provider [phone] Encounter Details Date Type Department Care Team Description 01/31/2019 Silent Schedule Department of Obstetrics [place], and Gynecology in [place], [place] [address] [phone] (Wo rk) Social History Tobacco Use Types [...] 11/27/2019 relatives? How often do you attend jew or restorationist Never 01/31/2019 services? Do you belong to any clubs or organizations such as No 01/31/2019 jew groups, unions, fraternal or athletic groups, or [...] at Date Recorded Female 01/11/2018 2:20 PM AIDS NURSE documented as of this encounter Plan of Treatment Not on filedocumented as of this encounter Procedures Procedure Name Priority Date/Time Associated Comments Diagnosis US OB LIMITED RAD - Routine 01/31/2019 5:42 Examination Results fo r this (most inpatients PM AIDS NURSE Other procedure are in and all Normal the results outpatients) First Trimester section. documented in this encounter Results US OB Limited (01/31/2019 5:42 PM AIDS NURSE) P athologist Signature FHR 126 bpm CRL 7.1 mm Anatomical Region Laterality Modality Ultrasound OB RST LOS, Ultrasound ARZ LOS, Ultrasound FLA LO S, N/A Ultrasound Ultrasound ARZ LOS Specimen (Source) Anatomical Location Collection Method / Collectio n Time Received Time / Laterality Volume Narrative 01/31/2019 5:42 PM AIDS NURSE Single, living intrauterine with crown-rump length of 7.1 mm corresponding to 6+5 weeks gestational a ge. ??Cardiac activity is present 126 beats per minute. ??Gestational sac is fundal. ??The yolk sac is not visualized. ??Appropriate interval growt h since the last ultrasound. Joy Lee M.D. IMBela OB US PROCEDURES documented in this encounter Visit Diagnoses Not on filedocumented in this encounter Additional Health Concerns Assessment Noted Time PHQ-9 Depression Total Score: 15 09/28/2017 3:51 PM CD T documented as of this encounter Care Teams Principal Technical Writer Relationship Specialty Start Date End Date Marisel Ferrer M.D. PCP - General Family Medicine 07/11/18 03/24/20 [address] [place] [phone] documented as of this encounter
--- OUTSIDE RECORDS SUMMARY | 2021-11-28 09:15 | XMS_ITS | Encounter Summary ---
:1985 Author Organization [facility] Address [address] [place] [address] Care Team Providers Name Role Phone Marisel Ferrer M.D. Primary Care Provider [phone] Reason for Visit Reason Comments Other Would like STD. While on vac ation had a lot of burning when she was urinating. Now that gone. Skin flap on abdomen is red and has a odor. Concerns about body odor. Uses deorderants and n othing helps. Appointment Request (Routine) - Closed Specialty Diagnoses / Procedures Referred By Contact Refer red To Contact Family Medicine Referral ID Status Reason Start Date Expiration Date Visits Requ ested Visits Authorized [id number] Closed 07/25/2018 07/25/2019 1 1 Encounter Details Date Type Department Care Team Description 07/26/2018 Office Visit Department of Family Huang lambert For Venereal Medicine, Marisel Mcgregor, Disease (Primary Dx) Clinic, in [place] [address] [place] [phone] [phone] Social History Tobacco Use Types Packs/Day Years [...] 11/27/2019 relatives? How often do you attend druze or zoroastrian Never 01/31/2019 services? Do you belong to any clubs or organizations such as No 01/31/2019 druze groups, unions, fraternal or athletic groups, or [...] at Date Recorded Female 01/11/2018 2:20 PM HOSTAGE NEGOTIATOR documented as of this encounter Last Filed Vital Signs Vital Sign Reading Time Taken Comments Blood Pressure 113/69 07/26/2018 2:47 PM CDT Pulse 80 07/26/2018 2:47 PM CDT Temperature 36.6 ??C (97.9 ??F) 07/26/2018 2:47 PM CDT Respiratory Rate 16 07/26/2018 2:47 PM CDT Oxygen Saturation - - Inhaled Oxygen Concentration - - Weight 57.1 kg (125 lb 14.1 oz) 07/26/2018 2:47 PM CDT Height - - Body Mass Index 20.23 01/07/2018 6:00 AM HOSTAGE NEGOTIATOR documented in this encounter Progress Notes Marisel Ferrer M.D. - 07/26/2018 3:00 PM CDT Patient left without being seen. documented in this encounter Plan of Treatment Not on filedocumented as of this encounter Visit Diagnoses Diagnosis Screening For Venereal Disease - Primary documented in this encounter Additional Health Concerns Assessment Noted Time PHQ-9 Depression Total Score: 15 09/28/2017 3:51 PM CD T documented as of this encounter Care Teams Decorator Street And Building Relationship Specialty Start Date End Date Marisel Ferrer M.D. PCP - General Family Medicine 07/11/18 03/24/[address] [place] [address] documented as of this encounter
--- OUTSIDE RECORDS SUMMARY | 2021-11-28 09:15 | XMS_ITS | Encounter Summary ---
:1985 Author Organization [facility] Address [address] [place] [address] Care Team Providers Name Role Phone Marisel Ferrer M.D. Primary Care Provider [phone] Reason for Visit Reason Comments Initial Visit Outpatient (Routine) - Canceled Specialty Diagnoses / Procedures Referred By Contact Refer red To Contact Obstetrics and David Allison M.D. [facility] Gynecology [address] [place] [address] Referral ID Status Reason Start Date Expiration Date Visits V isits Requested Authorized [id number] Canceled 01/27/2019 01/27/2020 1 1 Encounter Details Date Type Department Care Team Description 01/29/2019 Routine Department of Gertrudis Carr Obstetrics jayda Mueller M.D. Examination T est Gynecology in With Positive Result [place], (Primary Dx) [address] [phone] Social History Tobacco Use Types Packs/Day Years [...] 11/27/2019 relatives? How often do you attend temple or mu-ism Never 01/31/2019 services? Do you belong to any clubs or organizations such as No 01/31/2019 temple groups, unions, fraternal or athletic groups, or [...] at Date Recorded Female 01/11/2018 2:20 PM HIV NURSE documented as of this encounter Last Filed Vital Signs Vital Sign Reading Time Taken Comments Blood Pressure 104/66 01/29/2019 8:42 AM HIV NURSE Pulse 72 01/29/2019 8:42 AM HIV NURSE Temperature - - Respiratory Rate 16 01/29/2019 8:42 AM HIV NURSE Oxygen Saturation - - Inhaled Oxygen Concentration - - Weight 53.4 kg (117 lb 13.4 oz) 01/29/2019 8:42 AM HIV NURSE Height 161.3 cm (5' 3.5) 01/29/2019 8:49 AM HIV NURSE Body Mass Index 20.55 01/29/2019 8:42 AM HIV NURSE documented in this encounter Progress Notes Gertrudis Carr M.D. - 01/29/2019 9:15 AM CST Did not see patient, she left office prior to being seen, advised to reschedule by staff. NURSE documented in this encounter Plan of Treatment Not on filedocumented as of this encounter Visit Diagnoses Diagnosis Examination Test With Positive Result (HCC) - Primary documented in this encounter Additional Health Concerns Assessment Noted Time PHQ-9 Depression Total Score: 15 09/28/2017 3:51 PM CD T documented as of this encounter Care Teams Debridging Machine Operator Relationship Specialty Start Date End Date Marisel Ferrer M.D. PCP - General Family Medicine 07/11/18 03/24/20 [address], [place] [address] documented as of this encounter
--- OUTSIDE RECORDS SUMMARY | 2021-11-28 09:15 | XMS_ITS | Encounter Summary ---
:1985 Author Organization [facility] Address [address] [place] [address] Care Team Providers Name Role Phone Marisel Ferrer M.D. Primary Care Provider [phone] Encounter Details Date Type Department Care Team Description 01/31/2019 Hospital Encounter Department of Alona Lee Laboratory Medicine [place] Other Normal in [place], [address] Trimester [address] [place], [place] [phone] [phone] Social History Tobacco Use Types Packs/Day Years [...] 11/27/2019 relatives? How often do you attend amish or zoroastrian Never 01/31/2019 services? Do you belong to any clubs or organizations such as No 01/31/2019 amish groups, unions, fraternal or athletic groups, or [...] to pay for the very basics like edo hat hard 11/27/2019 food, housing, medical care, [...] at Date Recorded Female 01/11/2018 2:20 PM WEB WEAVER documented as of this encounter Medications at [...] Name Priority Date/Time Associated Diagnosis Comme nts SYPHILIS TOTAL AB Routine 01/31/2019 10:19 AM Examination Pren atal Results for this W/ REFLEX S WEB WEAVER Other Normal procedure are i n First the results Trimester section. ABORH, RBC Routine 01/31/2019 10:19 AM Examination Results for this WEB WEAVER Other Normal procedure are i n First the results Trimester section. 25-HYDROXYVITAMIN Routine 01/31/2019 10:19 AM Examination Pren atal Results for this D2 AND D3, S WEB WEAVER Other Normal procedure are i n First the results Trimester section. RUBELLA ANTIBODIES, Routine 01/31/2019 10:19 AM Examination Pr enatal Results for this IGG WEB WEAVER Other Normal procedure are i n First the results Trimester section. HEPATITIS B SURFACE Routine 01/31/2019 10:19 AM Examination Pr enatal Results for this ANTIGEN WEB WEAVER Other Normal procedure are i n First the results Trimester section. CBC WITH Routine 01/31/2019 10:19 AM Examination Results for this DIFFERENTIAL, B WEB WEAVER Other Normal procedure ar e in First the results Trimester section. ANTIBODY SCREEN, B Routine 01/31/2019 10:19 AM Examination Pre louise Results for this WEB WEAVER Other Normal procedure are i n First the results Trimester section. documented in this encounter Results 25-Hydroxyvitamin D2 and D3 (01/31/2019 10:19 AM WEB WEAVER) athologist Signature 25-Hydroxy D2 <4.0 ng/mL 02/06/2019 SDSC 1:50 AM WEB WEAVER 25-Hydroxy D3 32 ng/mL 02/06/2019 SDSC 1:50 AM WEB WEAVER 25-Hydroxy D 32 ng/mL 02/06/2019 SDS Total 1:50 AM WEB WEAVER Comment: ----REFERENCE VALUE---- 25-HYDROXY D TOTAL (D2+D3) Optimum level s in the healthy population are 20-50, patients with bone disease may benefit from higher levels within this r hoa. ----ADDITIONAL INFORMATION---- This test was developed and its performa nce characteristics determined by [facility] in a manner consistent with CLIA requirements. This test has not been cleared or approved by the [place] L[place] d and Drug Administration. Specimen Anatomical Collection Method Collection Time Receive d Time (Source) Location / / Volume Laterality Blood (Blood, 01/31/2019 10:19 02/03/2019 7:56 Venous) AM WEB WEAVER AM WEB WEAVER Joy Lee M.D. LAB BLOOD ADD-ON Performing Organization Address City/State/ZIP Code Phon e Number [facility] [address] [place] [address] [facility] [place] [address] Laboratory Medicine and Pathology [address] [place] Syphilis Total Ab w/ Reflex, Serum (01/31/2019 10:19 AM WEB WEAVER) Patholo gist Method Time Signature Syphilis Nonreactive Nonreactive 02/02/2019 [facility] Total Ab w/ 12:03 PM WEB WEAVER Reflex Comment: No serologic evidence of infection with T. pallidum (syphilis). ??Repeat testing may be cons idered in patients with suspected acute or primary syphilis in 2-4 weeks. For additional information on interpreta tion of the syphilis reverse algorithm and resul ts, see: [email or web address] Specimen Anatomical Collection Method Collection Time Receive d Time (Source) Location / / Volume Laterality Blood (Blood, 01/31/2019 10:19 02/01/2019 2:44 Venous) AM WEB WEAVER PM WEB WEAVER Joy Lee M.D. LAB BLOOD ADD-ON Performing Organization Address [facility] Phon e Number [address] [phone] [facility] [place] [address] System in [address] Rubella Antibodies, IgG (01/31/2019 10:19 AM WEB WEAVER) P athologist Signature Rubella Ab, Positive 02/02/2019 [facility] IgG, S 12:03 PM WEB WEAVER Comment: Results suggest response to immunization or prior exposure to the virus. ----REFERENCE VALUE---- Vaccinated: Positive (>=1.0 AI) Unvaccinated: Negative (<=0.7 AI) Rubella IgG Antibody Index 2.7 02/02/2019 12 :03 PM WEB WEAVER [facility] Specimen Anatomical Collection Method Collection Time Receive d Time (Source) Location / / Volume Laterality Blood (Blood, 01/31/2019 10:19 02/01/2019 2:44 Venous) AM WEB WEAVER PM WEB WEAVER Joy Lee M.D. LAB MICROBIOLOGY - BLOOD ORD ERABLES Performing Organization Address City/[facility] Phon e Number [address] [phone] [place] [address] System in [address] Hepatitis B Surface Antigen (01/31/2019 10:19 AM WEB WEAVER) [facility] Squidbid Method Time Signature HBs Antigen, Nonreactive Nonreactive 01/31/2019 AUST S 4:48 PM WEB WEAVER Comment: Biotin has been identified by the madeline wheatley as a potential interfering substance. ??Higher concentr ations of biotin may be found in multivitamins, hair/nail supple ments, and workout supplements. ??If the result does not [facility] clinical observations, repeat testing after patient refrains fr om the use of supplements for at least 12 hours. Specimen Anatomical Collection Method Collection Time Receive d Time (Source) Location / / Volume Laterality Blood (Blood, 01/31/2019 10:19 01/31/2019 3:43 Venous) AM WEB WEAVER PM WEB WEAVER Joy Lee M.D. LAB MICROBIOLOGY - BLOOD ORD ERABLES Performing Organization Address City/State/ZIP Code Phon e Number [facility]- [address] [place], [place] [phone] [place] [address] LAB AUST [facility] [place], [place] [id number] [place] [address] (ABNORMAL) CBC with Differential, Blood (01/31/2019 10:19 AM WEB WEAVER) [facility] Squidbid Method Time Signature Hemoglobin 12.4 11.6 - 01/31/2019 FB60 15.0 g/dL 10:34 AM WEB WEAVER Hematocrit 38.4 35.5 - 01/31/2019 FB60 44.9 % 10:34 AM WEB WEAVER Erythrocytes 4.28 3.92 - 01/31/2019 FB60 5.13 10:34 AM WEB WEAVER x10(12)/L MCV 89.7 78.2 - 01/31/2019 FB60 97.9 fL 10:34 AM WEB WEAVER RBC Distrib Width 13.0 12.2 - 01/31/2019 FB60 16.1 % 10:34 AM WEB WEAVER Platelet Count 299 157 - 371 01/31/2019 FB60 x10(9)/L 10:34 AM WEB WEAVER Leukocytes 11.3 (H) 3.4 - 9.6 01/31/2019 FB60 x10(9)/L 10:34 AM WEB WEAVER Neutrophils 8.92 (H) 1.56 - 01/31/2019 FB60 6.45 10:34 AM WEB WEAVER x10(9)/L Lymphocytes 1.67 0.95 - 01/31/2019 FB60 3.07 10:34 AM WEB WEAVER x10(9)/L Monocytes 0.63 0.26 - 01/31/2019 FB60 0.81 10:34 AM WEB WEAVER x10(9)/L Eosinophils 0.07 0.03 - 01/31/2019 FB60 0.48 10:34 AM WEB WEAVER x10(9)/L Basophils 0.01 0.01 - 01/31/2019 FB60 0.08 10:34 AM WEB WEAVER x10(9)/L Specimen Anatomical Collection Method Collection Time Receive d Time (Source) Location / / Volume Laterality Blood (Blood, 01/31/2019 10:19 01/31/2019 Venous) AM WEB WEAVER 10:19 AM WEB WEAVER Joy Lee M.D. LAB BLOOD ADD-ON Performing Organization Address City/State/ZIP Code Phon e Number [address] [place] [address] [facility] [address] [place] [address] System in [address] ABORh, RBC (01/31/2019 10:19 AM WEB WEAVER) P athologist Signature ABO Group A 02/01/2019 10:45 AUST AM WEB WEAVER Rh Type NEG 02/01/2019 10:45 AUST AM WEB WEAVER Specimen Anatomical Collection Method Collection Time Receive d Time (Source) Location / / Volume Laterality Blood (Blood, 01/31/2019 10:19 01/31/2019 3:42 Venous) AM WEB WEAVER PM WEB WEAVER Joy Lee M.D. LAB BLOOD BANK TEST ORDERABL ES Performing Organization Address City/State/ZIP Code Phon e Number [facility]- [address] [place] [address] [facility] A[facility] [place], [place] [id number] [place] [address] (ABNORMAL) Antibody Screen, RBC (with reflex Antibody ID) (01/31/2019 10:19 AM WEB WEAVER) P athologist Signature Antibody POS (A) 02/01/2019 AUST Screen 10:45 AM WEB WEAVER Specimen Anatomical Collection Method Collection Time Receive d Time (Source) Location / / Volume Laterality Blood (Blood, 01/31/2019 10:19 01/31/2019 3:42 Venous) AM WEB WEAVER PM WEB WEAVER Joy Lee M.D. LAB BLOOD BANK TEST ORDERABL ES Performing Organization Address City/State/ZIP Code Phon e Number [facility]- [address] [place] [address] [place] [facility] [place] [address] [facility] [address] documented in this encounter Visit Diagnoses Diagnosis Examination Other Normal Pregna ncy First Trimester (HCC) documented in this encounter Additional Health Concerns Assessment Noted Time PHQ-9 Depression Total Score: 15 09/28/2017 3:51 PM CD T documented as of this encounter Care Teams Gas Pumping Station Operator Relationship Specialty Start Date End Date Marisel Ferrer M.D. PCP - General Family Medicine 07/11/18 [address], [place] [phone] documented as of this encounter
--- OUTSIDE RECORDS SUMMARY | 2021-11-28 09:15 | XMS_ITS | Encounter Summary ---
:1985 Author Organization [facility] Address [address] [place] [address] Care Team Providers Name Role Phone Kandi Alberts APRN C.N.P. Primary Care Provider [phone] Reason for Referral Outpatient (Routine) - Closed Specialty Diagnoses / Procedures Referred By Contact Refer red To Contact Pain Medicine Diagnoses [facility] [place] [facility]ine Transforaminal Epidural Injection Left NV INJ ANES FORAMEN EPI LUMB SNGL HC INJ ANES FORAMEN EPI LUMB SNGL NV INJ ANES FORAMEN EPI LUMB SNGL M.D. [address] [place] [address] Referral ID Status Reason Start Date Expiration Date Visits Requ ested Visits Authorized [id number] Closed 03/27/2018 03/27/2019 1 1 OMER SERVICE OFFICER Reason for Visit Outpatient (Routine) - Closed Specialty Diagnoses / Procedures Referred By Contact Refer red To Contact Pain Medicine Diagnoses Radiculopathy Lumbar Matthias [facility] Procedures FL Lumbar Spine Transforaminal Epidural Injection Left NV INJ ANES FORAMEN EPI LUMB SNGL HC INJ ANES FORAMEN EPI LUMB SNGL NV INJ ANES FORAMEN EPI LUMB SNGL M.D. [address] [place] [address] Referral ID Status Reason Start Date Expiration Date Visits Requ ested Visits Authorized [id number] Closed 03/27/2018 03/27/2019 1 1 Encounter Details Date Type Department Care Team Description 04/17/2018 Hospital Encounter Division of Pain [place], [place] ulopathy Lumbar Medicine in Matthias Hgigins M.D. [place], [place] [address] [facility] [address] [place] [phone] Social History Tobacco Use Types Packs/Day Years [...] 11/27/2019 relatives? How often do you attend voodoo or mandaen Never 01/31/2019 services? Do you belong to any clubs or organizations such as No 01/31/2019 voodoo groups, unions, fraternal or athletic groups, or [...] at Date Recorded Female 01/11/2018 2:20 PM CUSTOMER SERVICE OFFICER documented as of this encounter Last Filed Vital Signs Vital Sign Reading Time Taken Comments Blood Pressure 118/94 04/17/2018 1:25 PM CUSTOMER SERVICE OFFICER Pulse 100 04/17/2018 1:25 PM CUSTOMER SERVICE OFFICER Temperature 36.9 ??C (98.4 ??F) 04/17/2018 12:42 PM CUSTOMER SERVICE OFFICER Respiratory Rate - - Oxygen Saturation 98% 04/17/2018 1:25 PM CUSTOMER SERVICE OFFICER Inhaled Oxygen Concentration - - Weight - - Height - - Body Mass Index - - documented in this encounter Medications at Time of Discharge Medication Sig Dispensed Refills Start Date End Date FLUoxetine (PROzac) 20 Take 1 capsule by 0 2017 mg capsule mouth every AM after solid food gabapentin (NEURONTIN) Take as directed if 90 capsule 1 06/2017 300 mg capsule needed for nerve pain. Start with 1 cap daily in evening. Each 3 days may increase dose if needed: to twice daily (noon and evening), then after 3 days to 3 times daily. Decrease dose, if needed, gradually every 3 days in the same manner. tiZANidine (ZANAFLEX) 2 1 tab up to three 0 03/20 mg tablet times daily, use mostly at night for muscle relaxer. May make you drowsy. acetaminophen (TYLENOL) Take 2 tablets 0 01/08/20 18 12/09/2019 500 mg tablet (1,000 mg total) by mouth 4 (four) times a day. buPROPion (WELLBUTRIN Take 1 tablet by 0 06/19/19 18 12/09/2019 SR) 200 mg 12 hr tablet mouth every AM documented as of this encounter Procedure Notes Darwin Pisano M.D. - 04/17/2018 1:10 PM CSTAssociated Order(s): [place] LUMBAR SPINE TRANSFORAMINAL EPIDURAL INJECTION LEFT Pre-Procedure Diagnose(s): Radiculopathy Lumbar Post-Procedure Diagnose(s): Radiculopathy Lumbar FL Lumbar Spine Transforaminal Epidural Injection Left (L5-S1) Date/Time: 04/17/2018 1:10 PM Performed by: DARWIN PISANO Authorized by: MATTHIAS MTZ Care team members present: Kirk Harding M.D. 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 Procedure details: Pre-procedural pain: 9/10 Post-procedural pain: 9/10 Lumbar: Transforaminal epidural injection Transforaminal epidural injection: Left L5 Needle or RF cannula: Spinal Needle size: 22 G Needle length: 5 in Patient position: prone Fluoroscopic guidance: Yes Medication administered: Total volume of injectate (mL): 2 Total steroid in injectate (mg): 10 5 mL lidocaine 10 mg/mL (1 %) (Local) 1 mL lidocaine 20 mg/mL (Injectate) 10 mg dexamethasone 10 mg/mL (Injectate) 1 mL iohexol 300 mg iodine/mL Anesthetic/Sedation Details: Anesthesia method: Local infiltration Lidocaine 1%: 5 mL Procedure details: Transforaminal epidural injection - lumbar: After identifying the appropriate pedicle fluoroscopically with an oblique view. A spinal needle was then advanced under fluoroscopic guidance to the posterior aspect of the neural foramen. Appropriate foraminal depth was determined with a lateral fluoroscopic view, and AP visualization confirmed needle positioning at approximately the 6 o'clock position relative to the pedicle. After negative aspiration, contrast was injected using live fluoroscopy and digital subtraction angiography, confirming appropriate transforaminal spread without evidence of intravascular or intrathecal uptake. A local anesthetic test dose consisting of 1 mL of 2% lidocaine was injected through the needle. After an appropriate period of observation, a directed neurological examwas performed which revealed no new neurologic deficits. Next, the injectate was injected slowly andincrementally into the epidural space. Following the injection the needle was withdrawn flushed withlidocaine as it was fully extracted. The patient tolerated the procedure well and there were no apparent complications. After appropriate observation, the patient was dismissed in good condition under their own power. Comments: Clear epidural and perineural spread. Patient reports no change in pain. Consent: Consent obtained: Written The benefits, risks and alternatives to the procedure and the potential need for sedation or anesthesia as well as the names, roles, and responsibilities of healthcare team members performing significant interventional tasks were discussed with the patient and/or decision maker.: yes The benefits, risks and alternatives to the possible need for blood products were discussed with the patient and/or decision maker.: Consent for transfusion was obtained [place] protocol: All relevant documentation and testing were reviewed and available. All required blood products, implants, devices and/or special equipment were made available as applicable. The pre-procedure verification was conducted, the correct site was marked if required, and the procedural time out was conducted prior to performing the procedure and confirmed in a procedural pause.: yes Pre-procedure details: Procedure purpose: Therapeutic Appropriate hand hygiene, gown, cap, mask, protective eyewear, sterile gloves, skin preparation, sterile drape, and strict aseptic technique were utilized as applicable for the procedure: yes Site preparation: Chlorhexidine OMER SERVICE OFFICER documented in this encounter Plan of Treatment Not on filedocumented as of this encounter Procedures Procedure Name Priority Date/Time Associated Comments Diagnosis FL LUMBAR SPINE RAD - Routine 04/17/2018 1:22 Radiculopathy Results for TRANSFORAMINAL (most inpatients PM CUSTOMER SERVICE OFFICER Lumbar this proc edure EPIDURAL INJECTION and all are in th e LEFT outpatients) results section. documented in this encounter Results FL LUMBAR SPINE TRANSFORAMINAL EPIDURAL INJECTION LEFT (04/17/2018 1:22 PM CUSTOMER SERVICE OFFICER) Specimen (Source) Anatomical Location Collection Method / Collectio n Time Received Time / Laterality Volume Narrative Darwin Pisano M.D. - 04/17/2018 1:10 PM CUSTOMER SERVICE OFFICER Darwin Pisano M.D. ? 04/17/2018 ??1:30 PM FL Lumbar Spine Transforaminal Epidural Injection Left (L5-S1) Date/Time: 04/17/2018 1:10 PM Performed by: DARWIN PISANO Authorized by: MATTHIAS MTZ Care team members present: ??Kirk Harding [...] decision maker.: ??Consent for transfusion was obtained [place] protocol: ??All relevant documentation and testin g [...] the procedure : yes ?Site preparation: ??Chlorhexidine Matthias MEHTA FLUOROSCOPY PROCEDURES documented in this encounter Visit Diagnoses Diagnosis Radiculopathy Lumbar documented in this encounter Administered Medications Inactive Administered Medications - up to 3 most recent administrations Medication Order MAR Action Action Date Dose Rate Site dexamethasone injection 10 mg Given 04/17/2018 1:10 PM CUSTOMER SERVICE OFFICER 10 mg (DECADRON) 10 mg, injection, One-Time Injection, Starting on Sun04/17/18 at 1310, For 1 dose iohexol 300 mg iodine/mL solution 1 mL Given 04/17/2018 1:10 PM CUSTOMER SERVICE OFFICER 1 mL (OMNIPAQUE) 1 mL, injection, One-Time Injection, Starting on Sun04/17/18 at 1310, For 1 dose lidocaine 10 mg/mL (1 %) injection 5 mL Given 04/17/2018 1:10 PM CUSTOMER SERVICE OFFICER 5 mL (XYLOCAINE) 5 mL, injection, One-Time Injection, Starting on Sun04/17/18 at 1310, For 1 dose lidocaine 20 mg/mL injection 1 mL (XYLOC NEL) Given 04/17/2018 1:10 PM CUSTOMER SERVICE OFFICER 1 mL 1 mL, injection, One-Time Injection, Starting on Sun04/17/18 at 1310, For 1 dose documented in this encounter Additional Health Concerns Assessment Noted Time PHQ-9 Depression Total Score: 15 09/28/2017 3:51 PM CD T documented as of this encounter Care Teams Supervisor Real Estate Office Relationship Specialty Start Date End Date Kandi Alberts, TATY, C.N.P. PCP - General 07/27/16 07/10/18 [address], [place] [address] documented as of this encounter
--- OUTSIDE RECORDS SUMMARY | 2021-11-28 09:15 | XMS_ITS | Encounter Summary ---
:1985 Author Organization [facility] Address [address] [place] [address] Care Team Providers Name Role Phone Marisel Ferrer M.D. Primary Care Provider [phone] Encounter Details Date Type Department Care Team Description 09/11/2018 Orders Only [facility] Pharmacy - Anneliese Ferrer, [address] [facility] [address] [place] [address] [phone] [place] [address] (Wo rk) Social History Tobacco Use Types [...] 11/27/2019 relatives? How often do you attend jewish or sabianist Never 01/31/2019 services? Do you belong to any clubs or organizations such as No 01/31/2019 jewish groups, unions, fraternal or athletic groups, or [...] to pay for the very basics like [email or web address] hat hard 11/27/2019 food, housing, medical care, [...] at Date Recorded Female 01/11/2018 2:20 PM BAND SPLITTER documented as of this encounter Plan of Treatment Not on filedocumented as of this encounter Visit Diagnoses Not on filedocumented in this encounter Additional Health Concerns Assessment Noted Time PHQ-9 Depression Total Score: 15 09/28/2017 3:51 PM CD T documented as of this encounter Care Teams Energy Consultant Relationship Specialty Start Date End Date Marisel Ferrer M.D. PCP - General Family Medicine 07/11/18 03/24/[address] [address] documented as of this encounter
--- OUTSIDE RECORDS SUMMARY | 2021-11-28 09:15 | XMS_ITS | Encounter Summary ---
:1985 Author Organization [facility] Address [address] [place] [address] Care Team Providers Name Role Phone Kandi Alberts APRN C.N.PGordon Primary Care Provider [phone] Encounter Details Date Type Department Care Team Description 01/29/2018 Clinical Communication Hospital Outpatient Rola Diaz cruzito Procedure Center in Sonya Julian, CRR [address] [place], [place] [address] [place] [address] [address] [place] [address] [phone] Social History Tobacco Use Types Packs/Day Years [...] 11/27/2019 relatives? How often do you attend faith or rastafarian Never 01/31/2019 services? Do you belong to any clubs or organizations such as No 01/31/2019 faith groups, unions, fraternal or athletic groups, or [...] at Date Recorded Female 01/11/2018 2:20 PM PLASTIC INSTALLER documented as of this encounter Plan of Treatment Not on filedocumented as of this encounter Visit Diagnoses Not on filedocumented in this encounter Additional Health Concerns Assessment Noted Time PHQ-9 Depression Total Score: 15 09/28/2017 3:51 PM CD T documented as of this encounter Care Teams Pump House Technician Relationship Specialty Start Date End Date Kandi Alberts, TATY, C.N.P. PCP - General 07/27/16 07/10/[address] [address] documented as of this encounter
--- OUTSIDE RECORDS SUMMARY | 2021-11-28 09:15 | XMS_ITS | Encounter Summary ---
:1985 Author Organization [facility] Address [address] [place] [address] Care Team Providers Name Role Phone Marisel Ferrer M.D. Primary Care Provider Reason for Visit Reason Onset Date Comments Post Hospital Follow-up 12/20/2018 Encounter Details Date Type Department Care Team Description 12/20/2018 Clinical Communication Department of [facility] Follow[facility]up [place] Marisel Cabrera M.D. in [address] [place] [phone] Social History Tobacco Use Types Packs/Day Years [...] How often do you attend confucianist or shinto Never 01/31/2019 services? Do you belong to [...] to pay for the very basics like [employer] hat hard 11/27/2019 food, housing, medical care, [...] at Date Recorded Female 01/11/2018 2:20 PM ASSISTANT PROFESSOR OF ARCHAEOLOGY documented as of this encounter Miscellaneous Notes Telephone Encounter - Poornima Bennett R.N. - 12/20/2018 10:44 AM CST Noted. STANT PROFESSOR OF ARCHAEOLOGY Telephone Encounter - Smitha Monet - 12/20/2018 10:33 AM ASSISTANT PROFESSOR OF ARCHAEOLOGY Called and spoke with the patient. She lives an hour away and does not plan to follow up here. She has other follow up appointments scheduled already. STANT PROFESSOR OF ARCHAEOLOGY Telephone Encounter - Janel Alberto - 12/20/2018 8:36 AM CST Hospital: Gen Diagnosis: spine surgery Discharge date: 12/20/2018 When to be seen: Gen would like the patient seen on Sunday12/23/[address] for her [address] Dr Brush is out of the office. Comments: Please call the patient back to set up an appt STANT PROFESSOR OF ARCHAEOLOGY documented in this encounter Plan of Treatment Not on filedocumented as of this encounter Visit Diagnoses Not on filedocumented in this encounter Additional Health Concerns Assessment Noted Time PHQ-9 Depression Total Score: 15 09/28/2017 3:51 PM CD T documented as of this encounter Care Teams Field Artillery Operations Specialist Relationship Specialty Start Date End Date Marisel Ferrer M.D. PCP - General Family Medicine 07/11/18 03/24/[address] [address] documented as of this encounter
--- OUTSIDE RECORDS SUMMARY | 2021-11-28 09:15 | XMS_ITS | Encounter Summary ---
:1985 Author Organization [facility] Address [address] [place] [address] Care Team Providers Name Role Phone Kandi Alberts APRN C.N.P. Primary Care Provider [phone] Encounter Details Date Type Department Care Team Description 02/26/2018 Orders Only Hospital Outpatient Ginger Diaz, Procedure Center in [place], [place] [address] [facility] [address] [place] [address] [phone] (Wo rk) Social History Tobacco Use Types [...] How often do you attend moravian or nondenominational Never 01/31/2019 services? Do you belong to [...] at Date Recorded Female 01/11/2018 2:20 PM SAND MOLDER documented as of this encounter Plan of Treatment Not on filedocumented as of this encounter Visit Diagnoses Not on filedocumented in this encounter Additional Health Concerns Assessment Noted Time PHQ-9 Depression Total Score: 15 09/28/2017 3:51 PM CD T documented as of this encounter Care Teams Photolithographic Stripper Relationship Specialty Start Date End Date Kandi Alberts, TATY, C.N.P. PCP - General 07/27/16 07/10/[address] [address] documented as of this encounter
--- OUTSIDE RECORDS SUMMARY | 2021-11-28 09:15 | XMS_ITS | Encounter Summary ---
:1985 Author Organization [facility] Address [address] [place] [address] Care Team Providers Name Role Phone Kandi Alberts APRN C.N.PGordon Primary Care Provider [phone] Encounter Details Date Type Department Care Team Description 02/01/2018 Orders Only Hospital Outpatient Ginger Diaz Infect ion Postoperative Procedure Center in Sonya Julian, CRR N Subsequent (Primary Dx) [place], [place] [address] [facility] [address] [place] [address] [phone] Social History Tobacco Use Types Packs/Day Years [...] How often do you attend mu-ism or worship Never 01/31/2019 services? Do you belong to [...] at Date Recorded Female 01/11/2018 2:20 PM INTELLIGENT SYSTEMS ENGINEER documented as of this encounter Plan of Treatment Not on filedocumented as of this encounter Visit Diagnoses Diagnosis Infection Postoperative Subsequent - Rere melba documented in this encounter Additional Health Concerns Assessment Noted Time PHQ-9 Depression Total Score: 15 09/28/2017 3:51 PM CD T documented as of this encounter Care Teams Cardiology Consultants Relationship Specialty Start Date End Date Kandi Alberts, TATY, C.N.P. PCP - General 07/27/16 07/10/[address] [address] documented as of this encounter
--- OUTSIDE RECORDS SUMMARY | 2021-11-28 09:15 | XMS_ITS | Encounter Summary ---
:1985 Author Organization [facility] Address [address] [place] [address] Care Team Providers Name Role Phone Marisel Ferrer M.D. Primary Care Provider Reason for Visit Reason Onset Date Comments NOB 01/29/2019 Encounter Details Date Type Department Care Team Description 01/29/2019 Clinical Communication Department of [facility] Obstetrics and [place] [place] Gynecology in [address] [place], [place] [address] [facility] [place] [address] [place], [place] [phone] [address] (Work) [phone] Social History Tobacco Use Types Packs/Day Years [...] 11/27/2019 relatives? How often do you attend presybeterian or voodoo Never 01/31/2019 services? Do you belong to any clubs or organizations such as No 01/31/2019 presybeterian groups, unions, fraternal or athletic groups, or [...] to pay for the very basics like [employer] hat hard 11/27/2019 food, housing, medical care, [...] at Date Recorded Female 01/11/2018 2:20 PM ENGINEERING ADMINISTRATOR documented as of this encounter Miscellaneous Notes Telephone Encounter - Janel Alberto - 01/29/2019 1:20 PM CST Reason for Communication: patient called. She was in the ER with a threatened miscarriage. They saidthere was still a heartbeat. She is having cramping. She hasn't had a NOB consult or anything as of yet. She states that she had 2 positive home tests and that the 1st day of her last menstrual period was 12/13/18. She is wanting Dr Lee for her OB care. Current Can Nursing/Provider leave a detailed message: Did the patient refuse triage through Nurse line? (for symptom based concerns): Action Needed: wants call back Name of Medication (if relevant): na NEERING ADMINISTRATOR documented in this encounter Plan of Treatment Not on filedocumented as of this encounter Visit Diagnoses Not on filedocumented in this encounter Additional Health Concerns Assessment Noted Time PHQ-9 Depression Total Score: 15 09/28/2017 3:51 PM CD T documented as of this encounter Care Teams Screw Eye Assembler Relationship Specialty Start Date End Date Marisel Ferrer M.D. PCP - General Family Medicine 07/11/18 03/24/[address] [phone] documented as of this encounter
--- OUTSIDE RECORDS SUMMARY | 2021-11-28 09:15 | XMS_ITS | Encounter Summary ---
:1985 Author Organization [facility] Address [address] [place] [address] Care Team Providers Name Role Phone Kandi Alberts APRN, C.N.P. Primary Care Provider [phone] Encounter Details Date Type Department Care Team Description 03/27/2018 Hospital Encounter Department of [facility] Laboratory Laboratory Medicine TATY Romano, CHECK OUT CLERK, Results and Pathology, [facility] in [address] [place] [address] [place] [address] [place], [place] [phone] (Work) [phone] Social History Tobacco Use Types Packs/Day Years [...] 11/27/2019 relatives? How often do you attend spiritism or buddhist Never 01/31/2019 services? Do you belong to any clubs or organizations such as No 01/31/2019 spiritism groups, unions, fraternal or athletic groups, or [...] at Date Recorded Female 01/11/2018 2:20 PM SENIOR MEDICAL TRANSCRIPTIONIST documented as of this encounter Medications at [...] mg 12 hr tablet mouth every AM gabapentin (NEURONTIN) Take 300 mg by mouth 0 12/201604/17/2018 300 mg capsule at bedtime. norgestimate-ethinyl Take 1 tablet by 0 7 04/17/2018 estradiol (ORTHO-CYCLEN) mouth daily. 0.25- mg-35 mcg per tablet oxyCODONE (ROXICODONE) 5 Take 1 tablet (5 mg 25 tablet 0 04/17/2018 mg immediate release total) by mouth tabletIndications: every 4 (four) hours Prolonged Acute as needed for Pain/Traumatic Injury moderate pain or score 4-6 of 10 or severe pain or score 7-10 of 10 (if other analgesics fail) Indication: Prolonged Acute Pain/Traumatic Injury. You may take 2 tablets (10mg) for severe pain refractory to 5mg dose. sennosides-docusate Take 1 tablet by 0 01/07/2018 04/17/2018 sodium (SENOKOT-S) mouth 2 (two) times 8.6-50 mg per tablet a day. tiZANidine (ZANAFLEX) 2 1 tab up to three 0 03/2004/17/2018 mg tablet times daily, use mostly at night for muscle relaxer. May make you drowsy. documented as of this encounter Plan of Treatment Not on filedocumented as of this encounter Procedures Procedure Name Priority Date/Time Associated Comments Diagnosis SEDIMENTATION RATE, B Routine 03/27/2018 1:16 PM Abnormal Labo ratory Results for this SENIOR MEDICAL TRANSCRIPTIONIST Results procedure are i n the results section. CBC WITH DIFFERENTIAL, Routine 03/27/2018 1:16 PM Abnormal Lab oratory Results for this B SENIOR MEDICAL TRANSCRIPTIONIST Results procedure are i n the results section. C-REACTIVE PROTEIN Routine 03/27/2018 1:16 PM Abnormal Laborat ory Results for this (CRP), S/P SENIOR MEDICAL TRANSCRIPTIONIST Results procedure are i n the results section. documented in this encounter Results CRP (C-Reactive Protein) (03/27/2018 1:16 PM SENIOR MEDICAL TRANSCRIPTIONIST) P athologist Signature C-Reactive <3.0 <=8.0 mg/L 03/27/2018 [facility] Protein (CRP), 2:23 PM SENIOR MEDICAL TRANSCRIPTIONIST LABORATORIES - [facility] Specimen Anatomical Collection Method Collection Time Receive d Time (Source) Location / / Volume Laterality Blood (Blood, 03/27/2018 1:16 PM 03/27/19 19 1:38 Venous) SENIOR MEDICAL TRANSCRIPTIONIST PM SENIOR MEDICAL TRANSCRIPTIONIST DAVID Joseph APRN, M.S. LAB BLOOD ADD-ON Performing Organization Address City/[facility] Code Phon e Number [facility] LABORATORIES - [address] Sedimentation Rate (03/27/2018 1:16 PM SENIOR MEDICAL TRANSCRIPTIONIST) [facility] gist Method Time Signature Sedimentation 5 0 - 29 03/27/2018 [facility] Rate, B mm/1 h 3:59 PM SENIOR MEDICAL TRANSCRIPTIONIST LABORATORIES - [facility] Specimen Anatomical Collection Method Collection Time Receive d Time (Source) Location / / Volume Laterality Blood (Blood, 03/27/2018 1:16 PM 03/27/19 19 1:37 Venous) SENIOR MEDICAL TRANSCRIPTIONIST PM SENIOR MEDICAL TRANSCRIPTIONIST DAVID Joseph APRN, M.S. LAB BLOOD ADD-ON Performing Organization Address City/[facility] Phon e Number [facility] LABORATORIES - [address] [place] [id number] 05 [facility] (ABNORMAL) CBC with Differential, Blood (03/27/2018 1:16 PM SENIOR MEDICAL TRANSCRIPTIONIST) [facility] gist Method Time Signature Hemoglobin 12.8 11.6 - 03/27/2018 [facility] 15.0 g/dL 1:46 PM SENIOR MEDICAL TRANSCRIPTIONIST LABORATORIES - [facility] Hematocrit 38.6 35.5 - 03/27/2018 [facility] 44.9 % 1:46 PM SENIOR MEDICAL TRANSCRIPTIONIST LABORATORIES - [facility] Erythrocytes 4.45 3.92 - 03/27/2018 [facility] 5.13 1:46 PM SENIOR MEDICAL TRANSCRIPTIONIST LABORATORIES - x10(12)/L [facility] MCV 86.7 78.2 - 03/27/2018 [facility] 97.9 fL 1:46 PM SENIOR MEDICAL TRANSCRIPTIONIST LABORATORIES - [facility] RBC Distrib 12.1 (L) 12.2 - 03/27/2018 [facility] Width 16.1 % 1:46 PM SENIOR MEDICAL TRANSCRIPTIONIST LABORATORIES - [facility] Platelet Count 222 157 - 371 03/27/2018 [facility] x10(9)/L 1:46 PM SENIOR MEDICAL TRANSCRIPTIONIST LABORATORIES - [facility] Leukocytes 6.6 3.4 - 9.6 03/27/2018 [facility] x10(9)/L 1:46 PM SENIOR MEDICAL TRANSCRIPTIONIST LABORATORIES - [facility] Neutrophils 4.16 1.56 - 03/27/2018 [facility] 6.45 1:46 PM SENIOR MEDICAL TRANSCRIPTIONIST LABORATORIES - x10(9)/L [facility] Lymphocytes 1.92 0.95 - 03/27/2018 [facility] 3.07 1:46 PM SENIOR MEDICAL TRANSCRIPTIONIST LABORATORIES - x10(9)/L [facility] Monocytes 0.39 0.26 - 03/27/2018 [facility] 0.81 1:46 PM SENIOR MEDICAL TRANSCRIPTIONIST LABORATORIES - x10(9)/L [facility] Eosinophils 0.08 0.03 - 03/27/2018 [facility] 0.48 1:46 PM SENIOR MEDICAL TRANSCRIPTIONIST LABORATORIES - x10(9)/L [facility] Basophils 0.03 0.01 - 03/27/2018 [facility] 0.08 1:46 PM SENIOR MEDICAL TRANSCRIPTIONIST LABORATORIES - x10(9)/L [facility] Specimen Anatomical Collection Method Collection Time Receive d Time (Source) Location / / Volume Laterality Blood (Blood, 03/27/2018 1:16 PM 03/27/19 19 1:37 Venous) SENIOR MEDICAL TRANSCRIPTIONIST PM SENIOR MEDICAL TRANSCRIPTIONIST Aster Correa APRN, CHECK OUT CLERK, M.S. LAB BLOOD ADD-ON Performing Organization Address City/State/ZIP Code Phon e Number [facility] LABORATORIES - [address] [place] [id number] 05 [facility] documented in this encounter Visit Diagnoses Diagnosis Abnormal Laboratory Results documented in this encounter Additional Health Concerns Assessment Noted Time PHQ-9 Depression Total Score: 15 09/28/2017 3:51 PM CD T documented as of this encounter Care Teams Oxygen Plant Operator Relationship Specialty Start Date End Date Kandi Alberts APRN, C.N.P. PCP - General 07/27/16 07/10/[address] [address] documented as of this encounter
--- OUTSIDE RECORDS SUMMARY | 2021-11-28 09:15 | XMS_ITS | Encounter Summary ---
:1985 Author Organization [facility] Address [address] [place] [address] Care Team Providers Name Role Phone Kandi Alberts APRN C.NGordonPGordon Primary Care Provider [phone] Reason for Referral MRI/CAT/PET Scan (Routine) - Closed Specialty Diagnoses / Procedures Referred By Contact Refer red To Contact Radiology Diagnoses Radiculopathy Lumbar Matthias Mtz M.D. [place] [facility] Procedures MR Lumbar Spine without and with IV Contrast ID MRI LUMB SPINE WO/W CNTRST HC MRI LUMB SPINE WO/W CNTRST ID MRI LUMB SPINE WO/W CNTRST [address] [place] [address] Referral ID Status Reason Start Date Expiration Date Visits Requ ested Visits Authorized [id number] Closed 01/16/2018 01/16/2019 1 1 RENAL Reason for Visit MRI/CAT/PET Scan (Routine) - Closed Specialty Diagnoses / Procedures Referred By Contact Refer red To Contact Radiology Diagnoses Radiculopathy Lumbar Matthias Mtz M.D. [place] [facility] Procedures MR Lumbar Spine without and with IV Contrast ID MRI LUMB SPINE WO/W CNTRST HC MRI LUMB SPINE WO/W CNTRST ID MRI LUMB SPINE WO/W CNTRST [address] [place], [place] [address] Referral ID Status Reason Start Date Expiration Date Visits Requ ested Visits Authorized [id number] Closed 01/16/2018 01/16/2019 1 1 Encounter Details Date Type Department Care Team Description 01/23/2018 Hospital Encounter Department of Katy Mtzculo blanca Lumbar Radiology, Teresa Pillai, in [place], [facility] [address] [place], [place] [address] [facility] [address] [place], [place] [phone] (Work) [phone] Social History Tobacco Use Types Packs/Day Years [...] 11/27/2019 relatives? How often do you attend hindu or restoration Never 01/31/2019 services? Do you belong to any clubs or organizations such as No 01/31/2019 hindu groups, unions, fraternal or athletic groups, or [...] at Date Recorded Female 01/11/2018 2:20 PM RN RENAL documented as of this encounter Medications at [...] Name Priority Date/Time Associated Diagnosis Comme nts MR LUMBAR SPINE RAD - Routine 01/23/2018 2:59 Radiculopathy Lumbar Results for this WITHOUT AND WITH (most inpatients PM RN RENAL procedu re are in IV CONTRAST and all the results outpatients) section. documented in this encounter Results MR Lumbar Spine without and with IV Contrast (01/23/2018 2:59 PM RN RENAL) Anatomical Region Laterality Modality Lumbar Spine, Neuroradiology RST LOS, Neuroradiology N/A Magnetic Resonance ARZ LOS, Neuroradiology FLA LOS Specimen (Source) Anatomical Collection Method Collection Time Re ceived Time Location / / Volume Laterality 01/23/2018 5:46 PM RN RENAL Impressions 01/23/2018 6:00 PM RN RENAL IMPRESSION: 1. Interval left L5-S1 laminotomy. Enhan cing postoperative changes at least partially encase the traversing left S1 nerve root. Small amount of nonenhancing material in the ventral epidural space w hich is contiguous with the disc space could represent postoperative changes in the early postoperative setting or possibly a small amount of recurrent or residual disc material. 2. Stable small midline disc protrusion at L4-5. Narrative 01/23/2018 6:00 PM RN RENAL EXAM: MR LUMBAR SPINE WITHOUT AND WITH IV CONTRAST COMPARISON: 11/22/2017 MRI FINDINGS: 5 lumbar vertebrae. Normal lum bar alignment. Normal vertebral body heights. The conus is normal with tip at the L1 vertebral body level. The marrow signal is within normal limits. No mauricio cassidy masses. The aorta is normal in caliber. T11-12 through L3-4: Unremarkable. L4-L5: Mild disc degeneration. Small bro ad-based posterior midline disc protrusion and associated annular tear w ith mild effacement of the ventral thecal sac. Mild facet arthropathy. Mini mal central canal narrowing. Both foramen patent. No change. L5-S1: Moderate disc degeneration. Inter jeanine postop changes left laminotomy with partially enhancing postoperative change s along the left lateral and ventral lateral epidural space, partially encasi ng the traversing left S1 nerve root. There is a small amount of nonenhancing tissue in the ventral epidural space on the left contiguous with the disc space which is relatively hyperintense on the T2-weighted sequence, and in the early p ostoperative setting may represent postop changes or possibly a small amoun t of recurrent or residual disc material. Mild facet arthropathy. Centra l canal and foramen patent. Procedure Note Sawyer Moy M.D. - 01/23/2018Form atting of this note might be different from the original. EXAM: MR LUMBAR SPINE WITHOUT AND WITH I V CONTRAST COMPARISON: 11/22/2017 MRI FINDINGS: 5 lumbar vertebrae. Normal lum bar alignment. Normal vertebral body heights. The conus is normal with tip at the L1 vertebral body level. The marrow signal is within normal limits. No mauricio cassidy masses. The aorta is normal in caliber. T11-12 through L3-4: Unremarkable. L4-L5: Mild disc degeneration. Small bro ad-based posterior midline disc protrusion and associated annular tear w ith mild effacement of the ventral thecal sac. Mild facet arthropathy. Mini mal central canal narrowing. Both foramen patent. No change. L5-S1: Moderate disc degeneration. Inter jeanine postop changes left laminotomy with partially enhancing postoperative change s along the left lateral and ventral lateral epidural space, partially encasi ng the traversing left S1 nerve root. There is a small amount of nonenhancing tissue in the ventral epidural space on the left contiguous with the disc space which is relatively hyperintense on the T2-weighted sequence, and in the early p ostoperative setting may represent postop changes or possibly a small amoun t of recurrent or residual disc material. Mild facet arthropathy. Centra l canal and foramen patent. IMPRESSION: 1. Interval left L5-S1 laminotomy. Enhan cing postoperative changes at least partially encase the traversing left S1 nerve root. Small amount of nonenhancing material in the ventral epidural space w hich is contiguous with the disc space could represent postoperative changes in the early postoperative setting or possibly a small amount of recurrent or residual disc material. 2. Stable small midline disc protrusion at L4-5. Matthias MEHTA MRI PROCEDURES documented in this encounter Visit Diagnoses Diagnosis Radiculopathy Lumbar documented in this encounter Administered Medications Inactive Administered Medications - up to 3 most recent administrations Medication Order MAR Action Action Date Dose Rate Site gadobutrol injection 0.5-15 mL Given 01/23/2018 2:49 PM RN RENAL 6 mL (GADAVIST) 0.5-15 mL, intravenous, Once in imaging, contrast, Starting on Sun01/23/18 at 1318, For 1 dose, Imaging Protocol Orders, Dose per Radiant Medication Guidelines documented in this encounter Additional Health Concerns Assessment Noted Time PHQ-9 Depression Total Score: 15 09/28/2017 3:51 PM CD T documented as of this encounter Care Teams Residence Counselor Relationship Specialty Start Date End Date Kandi Alberts, TATY, C.N.P. PCP - General 07/27/16 07/10/[address] [address] documented as of this encounter
--- OUTSIDE RECORDS SUMMARY | 2021-11-28 09:15 | XMS_ITS | Encounter Summary ---
:1985 Author Organization [facility] Address [address] [place] [address] Care Team Providers Name Role Phone Kandi Alberts APRN C.NGordonPGordon Primary Care Provider [phone] Encounter Details Date Type Department Care Team Description 04/17/2018 Comprehensive Visit Division of Pain Rachel Yao Ra diculopathy Lumbar (Primary Dx); Medicine in J, PGordonARuizC., Pain Low Back C [facility] [address] [facility] [address] [place] [phone] Social History Tobacco Use Types Packs/Day Years [...] 11/27/2019 relatives? How often do you attend hoahaoism or methodist Never 01/31/2019 services? Do you belong to any clubs or organizations such as No 01/31/2019 hoahaoism groups, unions, fraternal or athletic groups, or [...] at Date Recorded Female 01/11/2018 2:20 PM DIVING BOARD ASSEMBLER documented as of this encounter Last Filed Vital Signs Vital Sign Reading Time Taken Comments Blood Pressure 128/81 04/17/2018 11:21 AM DIVING BOARD ASSEMBLER Pulse 102 04/17/2018 11:21 AM DIVING BOARD ASSEMBLER Temperature - - Respiratory Rate - - Oxygen Saturation - - Inhaled Oxygen Concentration - - Weight - - Height - - Body Mass Index - - documented in this encounter Progress Notes Rachel Yao P.A.-C., M.S. - 04/17/2018 11:30 AM CST SUBJECTIVE CHIEF COMPLAINT / REASON FOR VISIT Wendi Odonnell is a 32 y.o. female who was referred to Pain Medicine by Dr. Mtz for left lower extremity pain. Preprocedure evaluation only HISTORY OF PRESENT ILLNESS Ms. Odonnell is a pleasant 32-year-old female from [facility] presents today with her boyfriend. She has been referred by Dr. Mtz for consideration of an L5-S1 transforaminal epidural steroid injection. Ms. Odonnell localizes pain to the left lower back region. This pain radiates into the left posterior lateral thigh calf to lateral and bottom of the left foot. She describes his pain as a constant burningelectric pain. She also describes a ???hard?? pain affecting the left foot. This pain is worse withprolonged sitting and prolonged standing. Nothing improves his pain. He admits to numbness and tingling in the painful region. Ms. Odonnell admits to weakness affecting the left lower extremity. Patient denies any changes to bowel or bladder function. Patient denies any recent fevers, chills, infections or antibiotic use. Patient has no allergies to local anesthetic or to contrast. Patient does not take any blood thinning medications. She denies any chance of . She rates pain today as a 8/10. Current Outpatient Prescriptions Medication Sig Dispense Refill ??? acetaminophen (TYLENOL) 500 mg tablet Take 2 tablets (1,000 mg total) by mouth 4 (four) times a day. ??? buPROPion (WELLBUTRIN SR) 200 mg 12 hr tablet Take 1 tablet by mouth every AM ??? FLUoxetine (PROzac) 20 mg capsule Take 1 capsule by mouth every AM after solid food ??? gabapentin (NEURONTIN) 300 mg capsule Take 300 mg by mouth at bedtime. ??? gabapentin (NEURONTIN) 300 mg capsule Take as directed if needed for nerve pain. Start with 1 cap daily in evening. Each 3 days may increase dose if needed: to twice daily (noon and evening), then after 3 days to 3 times daily. Decrease dose, if needed, gradually every 3 days in the same manner. 90 capsule 1 No current facility-administered medications for this visit. Allergies: Morphine @SOCHXMED@ History Drug use: Unknown The following portions of the patient's history were reviewed and updated as appropriate: allergies,current medications, family history, medical history, social history, surgical history and problem list. All systems were reviewed and found to be negative except as noted. REVIEW OF SYSTEMS REVIEW OF SYSTEMS OBJECTIVE PHYSICAL EXAM Physical Exam General: Pleasant 32 year old female seated comfortably in exam room chair in no acute distress Skin: Skin is dry and intact across low back with no rashes, lesions, or erythema. Midline scar thatis well healed Eyes: Pupils are 3 mm bilateral Lungs: Nonlabored respiration Musculoskeletal: Palpation: Tenderness with palpation in the lumbar paraspinal musculature starting slightly below the level the iliac crest into the bilateral sacral region. No tenderness over the lumbar spinous processes. Range of motion: Lumbar flexion is moderately diminished to pain. Lumbar extension is intact. Gait: Slightly antalgic Neuro: Strength: Strength is normal symmetric in lower extremity muscle groups Mental: Oriented to person, place, and time. Appropriate mood and affect. Recent and remote memory are intact. ASSESSMENT / PLAN ASSESSMENT / PLAN #1 Radiculopathy Lumbar #2 Pain Low Back Chronic PLAN 1. Intervention: Ms. Odonnell is being referred today for consideration of a left L5-S1 transforaminal epidural steroid injection. She has no contraindications undergoing this procedure today. Risks and benefits were reviewed. She stated understanding and her questions and concerns were answered. She was instructed to allow 2 weeks for full benefit of the steroid medication. 2. Follow-up: Ms. Odonnell will follow up with Dr. Mtz following this procedure. PATIENT EDUCATION Ready to learn, no apparent learning barriers were identified; learning preferences included listening. Explained diagnosis and treatment plan; patient expressed understanding of the content. NG BOARD ASSEMBLER documented in this encounter Plan of Treatment Not on filedocumented as of this encounter Visit Diagnoses Diagnosis Radiculopathy Lumbar - Primary Pain Low Back Chronic documented in this encounter Additional Health Concerns Assessment Noted Time PHQ-9 Depression Total Score: 15 09/28/2017 3:51 PM CD T documented as of this encounter Care Teams Fiction And Nonfiction Writer Prose Relationship Specialty Start Date End Date Kandi Alberts, TATY, C.N.P. PCP - General 07/27/16 07/10/[address] [phone] documented as of this encounter
--- OUTSIDE RECORDS SUMMARY | 2021-11-28 09:15 | XMS_ITS | Encounter Summary ---
:[address] [facility] Address [address] [place] [address] Care Team Providers Name Role Phone Kandi Alberts APRN, C.N.P. Primary Care Provider [phone] Reason for Visit Reason Comments Lesion bumps under both eyes and ge tting worse Appointment Request (Routine) - Closed Specialty Diagnoses / Procedures Referred By Contact Refer red To Contact Family Medicine Referral ID Status Reason Start Date Expiration Date Visits Requ ested Visits Authorized [id number] Closed 05/16/2018 05/16/2019 1 Encounter Details Date Type Department Care Team Description 05/31/2018 Comprehensive Visit Department of Elsi Resendiz, [place] aged Skin (Primary Dx); Dermatology in [place], Rosacea; [place], [place] M.S.N. Acne [address] [place], [place] [address] [address] [place], [place] [phone] Social History Tobacco Use Types Packs/Day [...] 11/27/2019 relatives? How often do you attend taoism or oriental orthodox Never 01/31/2019 services? Do you belong to any clubs or organizations such as No 01/31/2019 taoism groups, unions, fraternal or athletic groups, or [...] at Date Recorded Female 01/11/2018 2:20 PM CLINICAL SYSTEMS ANALYST documented as of this encounter Progress Notes Elsi Resendiz APRN, C.N.P., M.S.N. - 05/31/2018 11:00 AM CDT SUBJECTIVE CHIEF COMPLAINT / REASON FOR VISIT Lesion (bumps under both eyes and getting worse). HISTORY OF PRESENT ILLNESS Wendi Odonnell is a 33 y.o. female who presents for evaluation of bumps on the lower eyelids and dilated pores on her face. She has a history of acne for many years, her symptoms recently improved after she started using chlorhexidine soap every other day. She has had the bumps on the lower eyelids for many years but these seem to be more prominent. She denies any itching or discomfort to the areas. Per nursing notes: Lesion Wendi Odonnell comes today for evaluation of a skin lesion/growth. She has a lesion on her bumps under eyes Wendi not had prior treatment. The following portions of the patient's history were reviewed and updated as appropriate: allergies,current medications, medical history and social history. REVIEW OF SYSTEMS Constitutional, integumentary, and allergic/immunologic review of systems is negative except as otherwise remarked above or below. OBJECTIVE PHYSICAL EXAM General: Well-appearing female in no acute distress. Well groomed and dressed and answers appropriately to questions. Skin: I have examined the face there is mild comedonal acne with minimal inflammatory papules over the cheeks and jawline. There is mild acne scarring over the bilateral cheeks. On the bilateral lower eyelids there are discrete white subdermal 1 mm papules with evidence of mild to moderate sun damagedskin. There is mild flushing of the bilateral cheeks with fine telangiectasias bilaterally. ASSESSMENT / PLAN #1 Sun Damaged Skin #2 Rosacea We discussed the importance of extensive photo protection to avoid worsening photo damage. We explained that the appearance of white bumps were related to thinning of the skin related as a result of progressive sun damage. Discussed sensitive skin care and avoidance of triggers. Due to chronic sun damage in order to reduce risk of skin cancer and flare of photo-sensitive dermatoses, we recommend use of broad-spectrum UVA/UVB 50 SPF or higher sunscreen daily to the skin and reapply when going outdoors at least every 2 hours. #3 Acne Patient's acne has already improved chlorhexidine, however advised that she discontinue the Hibiclens soap and use BenzaClin gel in the morning and tretinoin gel at bedtime. The tretinoin may graduallyhelp with some of the photo damage with continued use. Patient will follow up in 3 months for re-evaluation. PATIENT EDUCATION Ready to learn, no apparent learning barriers were identified; learning preferences include listening. Explained diagnosis and treatment plan; patient expressed understanding of the content. Total timespent patient 25 min of which approximately 15 min was spent in counseling. documented in this encounter Plan of Treatment Not on filedocumented as of this encounter Visit Diagnoses Diagnosis Sun [place]aged Skin - Primary Rosacea Acne documented in this encounter Additional Health Concerns Assessment Noted Time PHQ-9 Depression Total Score: 15 09/28/2017 3:51 PM CD T documented as of this encounter Care Teams Sheet Metal Installer Relationship Specialty Start Date End Date Kandi Alberts APRN, C.N.P. PCP - General 07/27/16 07/10/[address] [id number] documented as of this encounter
--- OUTSIDE RECORDS SUMMARY | 2021-11-28 09:15 | XMS_ITS | Encounter Summary ---
:1985 Author Organization [facility] Address [address] [place] [address] Care Team Providers Name Role Phone Kandi Alberts APRN C.N.P. Primary Care Provider [phone] Encounter Details Date Type Department Care Team Description 01/30/2018 Orders Only Hospital Outpatient Ginger Diaz, Procedure Center in [place], [place] [address] [facility] [address] [place] [phone] (Wo rk) Social History Tobacco Use Types [...] How often do you attend restorationism or church Never 01/31/2019 services? Do you belong to [...] at Date Recorded Female 01/11/2018 2:20 PM IMPORT EXPORT AGENT documented as of this encounter Plan of Treatment Not on filedocumented as of this encounter Visit Diagnoses Not on filedocumented in this encounter Additional Health Concerns Assessment Noted Time PHQ-9 Depression Total Score: 15 09/28/2017 3:51 PM CD T documented as of this encounter Care Teams Front Desk Auxiliary Relationship Specialty Start Date End Date Kandi Alberts, [place], C.N.P. PCP - General 07/27/16 07/10/[address] [id number] documented as of this encounter
--- OUTSIDE RECORDS SUMMARY | 2021-11-28 09:15 | XMS_ITS | Encounter Summary ---
:1985 Author Organization [facility] Address [address] [place] [address] Care Team Providers Name Role Phone Marisel Ferrer M.D. Primary Care Provider [phone] Reason for Referral Outpatient (Routine) - Closed Specialty Diagnoses / Procedures Referred By Contact Refer red To Contact Obstetrics and Diagnoses Examination Other Normal First Trimester (HCC) QIANA Lee [facility] Gynecology [place] [place] [address] [place] [address] Referral ID Status Reason Start Date Expiration Date Visits Requ ested Visits Authorized [id number] Closed 01/31/2019 01/31/2020 1 1 T ASSOCIATE Specialty Diagnoses / Procedures Referred By Contact Adamaris mcdowell To Contact Joy Lee M.D. [facility] [place] [facility] [address] [place] [address] Referral ID Status Reason Start Date Expiration Date Visits Requ ested Visits Authorized Scheduling Instructions Schedule for 1 hour T ASSOCIATE Outpatient (Routine) - Closed Specialty Diagnoses / Procedures Referred By Contact Adamaris mcdowell To Contact Family Medicine Diagnoses Attention Deficit With Hyperactivity Disorder Joy Lee [facility] [place] [facility] M.D. [address] [place] [address] Referral ID Status Reason Start Date Expiration Date Visits Requ ested Visits Authorized [id number] Closed 01/31/2019 01/31/2020 1 1 Scheduling Instructions Trudi T ASSOCIATE Reason for Visit Reason Comments Initial Visit Bad cramping Appointment Request (Routine) - Closed Specialty Diagnoses / Procedures Referred By Contact Refer red To Contact Obstetrics and Gynecology Referral ID Status Reason Start Date Expiration Date Visits Requ ested Visits Authorized [id number] Closed 01/30/2019 01/30/2020 Encounter Details Date Type Department Care Team Description 01/31/2019 Initial Department of Obstetrics DARREL Lee: 7w0d and Gynecology in [place], [place] [address] [phone] (Wo rk) Social History Tobacco Use Types [...] 11/27/2019 relatives? How often do you attend cheondoism or holiness Never 01/31/2019 services? Do you belong to any clubs or organizations such as No 01/31/2019 cheondoism groups, unions, fraternal or athletic groups, or [...] at Date Recorded Female 01/11/2018 2:20 PM GUEST ASSOCIATE documented as of this encounter Last Filed Vital Signs Vital Sign Reading Time Taken Comments Blood Pressure 110/62 01/31/2019 8:43 AM GUEST ASSOCIATE Pulse - - Temperature - - Respiratory Rate - - Oxygen Saturation - - Inhaled Oxygen Concentration - - Weight 53.3 kg (117 lb 8.1 oz) 01/31/2019 8:43 AM GUEST ASSOCIATE Height - - Body Mass Index 20.49 01/29/2019 8:49 AM GUEST ASSOCIATE documented in this encounter Progress Notes Joy Lee M.D. - 01/31/2019 8:45 AM CST SUBJECTIVE REASON FOR VISIT/CHIEF COMPLAINT confirmation HISTORY OF PRESENT ILLNESS LMP: 12/13/2018, was not on time, it was 1 week early, was normal amount and duration. She has had VBsince her LMP. She had a small amount 6 days ago and then another time since then. She had not had intercourse prior to the bleeding. Menses are predictable, approximately every 30 days. She has had varicella or the vaccination, has no history of TB, has no history of blood transfusions, has a history of herpes - cold sores, and has no history of complications from anesthesia. She has nausea, but no vomiting. She is having reflux symptoms. She is also having fairly painful cramping in her low abdomen on a daily basis. At first it was right in the middle, now she is feeling it more on the right. She is drinking OK at this time. She is struggling a little to eat normally, so she has been eating mostly crackers and cereal. The patient's allergies and current medications were [...] withurination and menses change or abnormal. Musculoskeletal: Negative for arthralgias, back pain and pain or stiffness in the joints. Neurological: Positive for numbness or shooting pain in hands, arms, legs, or feet and weakness in arms or legs. Negative for loss of balance or tendency to fall easily and headaches. Psychiatric/Behavioral: Positive for sleep disturbance, little interest or pleasure in doing things over past two weeks, feeling down, depressed, or hopeless over past two weeks and feeling nervous, anxious, or on edge in past two weeks. The following systems were negative: Constitutional, Skin, Eyes, ENT, CV, Respiratory, , Hematologic, Musculoskeletal The patient's Past Medical History, Past Surgical History, Social History, and Family History were reviewed and updated as appropriate. OBJECTIVE Vitals: 01/31/19 0843 BP: 110/62 Weight: 53.3 kg General: Well-nourished female in no acute distress Head: Normocephalic, atraumatic ENT: Vision and hearing grossly intact Chest: Breathing nonlabored Abdomen: Soft, nondistended, nontender Lower extremities: Nontender, no edema Neuro: Alert and oriented x3, normal gait Skin: No rashes or lesions ASSESSMENT / PLAN IMPRESSION/PLAN 33 y.o. at 7w0d by last menstrual period consistent with 5+6 week ultrasound who presents for confirmation today. care: The patient will return in 1 month for an OB visit with our OB educator and for her 1st trimester OB education. New OB labs were drawn today. Dating/viability: Ultrasound on 01/25/2019 showed a single living intrauterine at 6+0 weeks gestation which is consistent with dates by her last menstrual period. Therefore her BROWN will be 09/19/2019. US today shows a viable with appropriate growth of the pole. Patient was reassured regarding this. #1 Examination Other Normal First Trimester Assessment & Plan: New OB labs today. Plan OB education in 1 month. Orders: - US OB Limited - Antibody Screen, RBC (with reflex Antibody ID); Future; Expected date: 01/31/2019 - ABORh, RBC; Future; Expected date: 01/31/2019 - CBC with Differential, Blood; Future; Expected date: 01/31/2019 - Hepatitis B Surface Antigen; Future; Expected date: 01/31/2019 - Rubella Antibodies, IgG; Future; Expected date: 01/31/2019 - Syphilis Total Ab w/ Reflex, Serum; Future; Expected date: 01/31/2019 - Bacterial Culture, Aerobic + Susc, Urine; Future; Expected date: 01/31/2019 - 25-Hydroxyvitamin D2 and D3; Future; Expected date: 01/31/2019 - Obstetrics and Gynecology - OB education visit (clinic); Future; Expected date: 02/21/2019 - Obstetrics and Gynecology office visit (clinic); Future; Expected date: 03/14/2019 - Obstetrics and Gynecology office visit (clinic); Standing - Obstetrics and Gynecology office visit (clinic); Future; Expected date: 02/14/2019 #2 Depression Major Overview: On Wellbutrin 300 mg SR daily. She stopped Prozac 20 mg daily, and we will restart that today. Her EPDS score is 22 today. She has had no thoughts of harming herself or anyone else. Risks and benefits of SSRIs discussed for , risks of unmanaged mood symptoms in discussed today. She r ecently started DBT through [facility] in [place], and she believes that will help with her mood symptoms. #3 Anxiety Generalized Disorder Overview: Wellbutrin 300 mg SR daily. Will restart prozac 20 mg daily. EPDS score 22 today. KEL 7 score 16 today, indicating mood symptoms that are not well managed. Plan close follow up of this. #4 Pain Foot Left Overview: Was on Tramadol and Tizanidine until 01/23/2019 for this. Currently on Neurontin 300 mg tid for this. Was on 1800 mg of Neurontin daily prior to . Her pain is not well managed on the 300 mg tid, so we will increase to 600 mg tid and start folic acid supplementation, 4 mg daily. Orders: - folic acid 1 mg tablet; Take 4 tablets (4 mg total) by mouth daily., Starting Sun01/31/2019, Until Sun01/31/2020, Normal #5 Pain Low Back Chronic Overview: S/p spinal fusion in December. Back pain improved post surgery, foot pain worse. #6 Attention Deficit With Hyperactivity Disorder Overview: Was on Vyvanse and stopped that with the . Has noticed a difference. Would like to get backon medication. I recommend Adderall of treatment is needed in . She will see Dr. Mckeon discuss starting this. Orders: - Family Medicine - General (clinic); Future; Expected date: 01/31/2019 #7 Insomnia Overview: Recommended Unisom as needed. Has been taking melatonin occasionally. Advised to avoid that in . #8 Nausea And Vomiting Overview: Recommended Sea Bands and Nicole Capsules as needed. Follow-up: In 2 weeks for follow up in early and mood check, in 1 month with the OB educator and in 6 weeks with me for new OB visit. T ASSOCIATE documented in this encounter Miscellaneous Notes Assessment & Plan Note - Joy Lee M.D. - 01/31/2019 5:36 PM GUEST ASSOCIATE Associated Problem(s): Examination Other Normal First Trimester (HCC) (Deleted) New OB labs today. Plan OB education in 1 month. T ASSOCIATE documented in this encounter Plan of Treatment Scheduled Referrals Name Type Priority Associated Diagnoses Order S [facility] Family Medicine - Outpatient Referral Routine Attention Defici t With Expected: General (clinic) Hyperactivity Disorder 1 04/03/2018 (Approximate), Expires: 01/31/2022 Obstetrics and Outpatient Referral Routine Examination Prenata l Expected: Gynecology - OB Other Normal education visit First Trimester (Approxim ate), (clinic) Expires: 01/31/2022 Obstetrics and Outpatient Referral Routine Examination Prenata l Expected: Gynecology office Other Normal 02/14/2019 visit (clinic) First Trimester (Approxima te), Expires: 01/31/2022 documented as of this encounter Procedures Procedure Name Priority Date/Time Associated Comments Diagnosis US OB LIMITED RAD - Routine 01/31/2019 5:42 Examination Results fo r this (most inpatients PM GUEST ASSOCIATE Other procedure are in and all Normal the results outpatients) First Trimester section. documented in this encounter Results US OB Limited (01/31/2019 5:42 PM GUEST ASSOCIATE) athologist Signature FHR 126 bpm CRL 7.1 mm Anatomical Region Laterality Modality Ultrasound OB RST LOS, Ultrasound ARZ LOS, Ultrasound FLA LO S, N/A Ultrasound Ultrasound ARZ LOS Specimen (Source) Anatomical Location Collection Method / Collectio n Time Received Time / Laterality Volume Narrative 01/31/2019 5:42 PM GUEST ASSOCIATE Single, living intrauterine with crown-rump length of 7.1 mm corresponding to 6+5 weeks gestational a ge. ??Cardiac activity is present 126 beats per minute. ??Gestational sac is fundal. ??The yolk sac is not visualized. ??Appropriate interval growt h since the last ultrasound. Joy Lee M.D. IMG OB US PROCEDURES 25-Hydroxyvitamin D2 and D3 (01/31/2019 10:19 AM GUEST ASSOCIATE) athologist Signature 25-Hydroxy D2 <4.0 ng/mL 02/06/2019 SDSC 1:50 AM GUEST ASSOCIATE 25-Hydroxy D3 32 ng/mL 02/06/2019 SDSC 1:50 AM GUEST ASSOCIATE 25-Hydroxy D 32 ng/mL 02/06/2019 [facility] Total 1:50 AM GUEST ASSOCIATE Comment: ----REFERENCE VALUE---- 25-HYDROXY D TOTAL (D2+D3) Optimum level s in the healthy population are 20-50, patients with bone disease may benefit from higher levels within this r hoa. ----ADDITIONAL INFORMATION---- This test was developed and its performa nce characteristics determined by [facility] in a manner consistent with CLIA requirements. This test has not been cleared or approved by the [place] d and Drug Administration. Specimen Anatomical Collection Method Collection Time Receive d Time (Source) Location / / Volume Laterality Blood (Blood, 01/31/2019 10:19 02/03/2019 7:56 Venous) AM GUEST ASSOCIATE AM GUEST ASSOCIATE Joy Lee M.D. LAB BLOOD ADD-ON Performing Organization Address City/State/ZIP Code Phon e Number [facility] [address] [place] [address] [place] [address] CENTER [facility] [place] [address] Laboratory Medicine and Pathology [address] [place] Syphilis Total Ab w/ Reflex, Serum (01/31/2019 10:19 AM GUEST ASSOCIATE) Patholo gist Method Time Signature Syphilis Nonreactive Nonreactive 02/02/2019 [facility] Total Ab w/ 12:03 PM GUEST ASSOCIATE Reflex Comment: No serologic evidence of infection with T. pallidum (syphilis). ??Repeat testing may be cons idered in patients with suspected acute or primary syphilis in 2-4 weeks. For additional information on interpreta tion of the syphilis reverse algorithm and resul ts, see: [email or web address] df Specimen Anatomical Collection Method Collection Time Receive d Time (Source) Location / / Volume Laterality Blood (Blood, 01/31/2019 10:19 02/01/2019 2:44 Venous) AM GUEST ASSOCIATE PM GUEST ASSOCIATE Joy Lee M.D. LAB BLOOD ADD-ON Performing Organization Address [facility] Phon e Number [phone] [facility] [place] [address] System in [address] Rubella Antibodies, IgG (01/31/2019 10:19 AM GUEST ASSOCIATE) P athologist Signature Rubella Ab, Positive 02/02/2019 [facility] IgG, S 12:03 PM GUEST ASSOCIATE Comment: Results suggest response to immunization or prior exposure to the virus. ----REFERENCE VALUE---- Vaccinated: Positive (>=1.0 AI) Unvaccinated: Negative (<=0.7 AI) Rubella IgG Antibody Index 2.7 02/02/2019 12 :03 PM GUEST ASSOCIATE [facility] Specimen Anatomical Collection Method Collection Time Receive d Time (Source) Location / / Volume Laterality Blood (Blood, 01/31/2019 10:19 02/01/2019 2:44 Venous) AM GUEST ASSOCIATE PM GUEST ASSOCIATE Joy Lee M.D. LAB MICROBIOLOGY - BLOOD ORD ERABLES Performing Organization Address City/[facility] Phon e Number [phone] [place] [address] [address] Hepatitis B Surface Antigen (01/31/2019 10:19 AM GUEST ASSOCIATE) [facility] [employer] Method Time Signature HBs Antigen, Nonreactive Nonreactive 01/31/2019 AUST S 4:48 PM GUEST ASSOCIATE Comment: Biotin has been identified by the madeline wheatley as a potential interfering substance. ??Higher concentr ations of biotin may be found in multivitamins, hair/nail supple ments, and workout supplements. ??If the result does not ma [facility] clinical observations, repeat testing after patient refrains fr om the use of supplements for at least 12 hours. Specimen Anatomical Collection Method Collection Time Receive d Time (Source) Location / / Volume Laterality Blood (Blood, 01/31/2019 10:19 01/31/2019 3:43 Venous) AM GUEST ASSOCIATE PM GUEST ASSOCIATE Joy Lee M.D. LAB MICROBIOLOGY - BLOOD ORD ERABLES Performing Organization Address City/State/ZIP Code Phon e Number [facility]- [address] LAB AUST [facility] - [address] (ABNORMAL) CBC with Differential, Blood (01/31/2019 10:19 AM GUEST ASSOCIATE) [facility] Method Time Signature Hemoglobin 12.4 11.6 - 01/31/2019 FB60 15.0 g/dL 10:34 AM GUEST ASSOCIATE Hematocrit 38.4 35.5 - 01/31/2019 FB60 44.9 % 10:34 AM GUEST ASSOCIATE Erythrocytes 4.28 3.92 - 01/31/2019 FB60 5.13 10:34 AM GUEST ASSOCIATE x10(12)/L MCV 89.7 78.2 - 01/31/2019 FB60 97.9 fL 10:34 AM GUEST ASSOCIATE RBC Distrib Width 13.0 12.2 - 01/31/2019 FB60 16.1 % 10:34 AM GUEST ASSOCIATE Platelet Count 299 157 - 371 01/31/2019 FB60 x10(9)/L 10:34 AM GUEST ASSOCIATE Leukocytes 11.3 (H) 3.4 - 9.6 01/31/2019 FB60 x10(9)/L 10:34 AM GUEST ASSOCIATE Neutrophils 8.92 (H) 1.56 - 01/31/2019 FB60 6.45 10:34 AM GUEST ASSOCIATE x10(9)/L Lymphocytes 1.67 0.95 - 01/31/2019 FB60 3.07 10:34 AM GUEST ASSOCIATE x10(9)/L Monocytes 0.63 0.26 - 01/31/2019 FB60 0.81 10:34 AM GUEST ASSOCIATE x10(9)/L Eosinophils 0.07 0.03 - 01/31/2019 FB60 0.48 10:34 AM GUEST ASSOCIATE x10(9)/L Basophils 0.01 0.01 - 01/31/2019 FB60 0.08 10:34 AM GUEST ASSOCIATE x10(9)/L Specimen Anatomical Collection Method Collection Time Receive d Time (Source) Location / / Volume Laterality Blood (Blood, 01/31/2019 10:19 01/31/2019 Venous) AM GUEST ASSOCIATE 10:19 AM GUEST ASSOCIATE Joy Lee M.D. LAB BLOOD ADD-ON Performing Organization Address City/State/ZIP Code Phon e Number [address] [place] [address] [facility] [address] [place] [address] [address] ABORh, RBC (01/31/2019 10:19 AM GUEST ASSOCIATE) P athologist Signature ABO Group A 02/01/2019 10:45 AUST AM GUEST ASSOCIATE Rh Type NEG 02/01/2019 10:45 AUST AM GUEST ASSOCIATE Specimen Anatomical Collection Method Collection Time Receive d Time (Source) Location / / Volume Laterality Blood (Blood, 01/31/2019 10:19 01/31/2019 3:42 Venous) AM GUEST ASSOCIATE PM GUEST ASSOCIATE Joy Lee M.D. LAB BLOOD BANK TEST ORDERABL ES Performing Organization Address City/State/ZIP Code Phon e Number [facility]- [address] [place] [address] [facility] [place], [place] [address] [place] [address] (ABNORMAL) Antibody Screen, RBC (with reflex Antibody ID) (01/31/2019 10:19 AM GUEST ASSOCIATE) P athologist Signature Antibody POS (A) 02/01/2019 AUST Screen 10:45 AM GUEST ASSOCIATE Specimen Anatomical Collection Method Collection Time Receive d Time (Source) Location / / Volume Laterality Blood (Blood, 01/31/2019 10:19 01/31/2019 3:42 Venous) AM GUEST ASSOCIATE PM GUEST ASSOCIATE Joy Lee M.D. LAB BLOOD BANK TEST ORDERABL ES Performing Organization Address City/State/ZIP Code Phon e Number [facility]- [address] [place] [address] [facility] [place] [place] [address] [facility] [address] (ABNORMAL) Bacterial Culture, Aerobic + Susc, Urine (01/31/2019 10:15 AM GUEST ASSOCIATE) Analysis Performed At Patho logist Time Signature Urine Culture Mixed 02/01/2019 MKTO sumeet. (A) 4:15 PM GUEST ASSOCIATE Specimen Anatomical Collection Method Collection Time Receive d Time (Source) Location / / Volume Laterality Urine (Urine, 01/31/2019 10:15 01/31/2019 7:01 Midstream) AM GUEST ASSOCIATE PM GUEST ASSOCIATE Comment: Specimen Source Site: Urine Joy Lee M.D. LAB MICROBIOLOGY - GENERAL O RDERABLES Performing Organization Address City/[facility]/ZIP Code Phon e Number [facility]- [address] [place] [phone] [place] [address] [place] [address] [address] documented in this encounter Visit Diagnoses Diagnosis Examination Other Normal Pregna ncy First Trimester (HCC) - Primary Depression Major Anxiety Generalized Disorder Pain Foot Left Pain Low Back Chronic Attention Deficit With Hyperactivity Dis order Insomnia Nausea And Vomiting documented in this encounter Additional Health Concerns Assessment Noted Time PHQ-9 Depression Total Score: 15 09/28/2017 3:51 PM CD T documented as of this encounter Care Teams [employer] Supervisor Relationship Specialty Start Date End Date Marisle Ferrer M.D. PCP - General Family Medicine 07/11/18 03/24/20 [address] [place] [phone] documented as of this encounter
--- OUTSIDE RECORDS SUMMARY | 2021-11-28 09:15 | XMS_ITS | Encounter Summary ---
:1985 Author Organization [facility] Address [address] [place] [address] Care Team Providers Name Role Phone Kandi Alberts APRN C.N.PGordon Primary Care Provider [phone] Encounter Details Date Type Department Care Team Description 01/16/2018 Hospital Encounter Department of [place], Radiculo blanca Lumbar Laboratory Medicine Matthias Higgins M.D . and Pathology, [address] [place] [address] in [place], [place] [address] [place] [address] [place], [place] (Work) [phone] Social History Tobacco Use Types Packs/Day Years [...] How often do you attend holiness or muslim Never 01/31/2019 services? Do you belong to [...] at Date Recorded Female 01/11/2018 2:20 PM RUG HOOKER HAND documented as of this encounter Medications at [...] Name Priority Date/Time Associated Diagnosis Comme nts CBC WITH Routine 01/16/2018 1:27 Radiculopathy Lumbar Resu lts for this DIFFERENTIAL, B PM RUG HOOKER HAND procedure ar e in the results section. C-REACTIVE PROTEIN Routine 01/16/2018 1:27 Radiculopathy Lumba r Results for this (CRP), S/P PM RUG HOOKER HAND procedure are i n the results section. SEDIMENTATION RATE, B Routine 01/16/2018 1:26 Radiculopathy Kristin mbar Results for this PM RUG HOOKER HAND procedure are i n the results section. documented in this encounter Results CRP (C-Reactive Protein) (01/16/2018 1:27 PM RUG HOOKER HAND) P athologist Signature C-Reactive <3.0 <=8.0 mg/L 01/16/2018 [facility] Protein (CRP), 2:40 PM RUG HOOKER HAND [facility] - S [facility] Specimen Anatomical Collection Method Collection Time Receive d Time (Source) Location / / Volume Laterality Blood (Blood, 01/16/2018 1:27 PM 01/17/20 18 1:49 Venous) RUG HOOKER HAND PM RUG HOOKER HAND Matthias Mtz M.D. LAB BLOOD ADD-ON Performing Organization Address City/State/ZIP Code Phon e Number [facility] - 200 [place], [place] [address] [facility] (ABNORMAL) CBC with Differential, Blood (01/16/2018 1:27 PM RUG HOOKER HAND) [facility] gist Method Time Signature Hemoglobin 13.9 11.6 - 01/16/2018 [facility] 15.0 g/dL 1:57 PM RUG HOOKER HAND [facility] - [facility] Hematocrit 42.8 35.5 - 01/16/2018 [facility] 44.9 % 1:57 PM RUG [facility]OOK[facility] - [facility] Erythrocytes 4.84 3.92 - 01/16/2018 [facility] 5.13 1:57 PM [facility] - x10(12)/L [facility] MCV 88.4 78.2 - 01/16/2018 [facility] 97.9 fL 1:57 PM RUG [facility]OOK[facility] - [facility] RBC Distrib 11.8 (L) 12.2 - 01/16/2018 [facility] Width 16.1 % 1:57 PM RUG [facility]OOK[facility] - [facility] Platelet Count 308 157 - 371 01/16/2018 [facility] x10(9)/L 1:57 PM RUG [facility]OOK[facility] - [facility] Leukocytes 11.7 (H) 3.4 - 9.6 01/16/2018 [facility] x10(9)/L 1:57 PM RUG [facility]OOK[facility] - [facility] Neutrophils 7.59 (H) 1.56 - 01/16/2018 [facility] 6.45 1:57 PM [facility] - x10(9)/L [facility] Lymphocytes 3.08 (H) 0.95 - 01/16/2018 [facility] 3.07 1:57 PM [facility] - x10(9)/L [facility] Monocytes 0.81 0.26 - 01/16/2018 [facility] 0.81 1:57 PM [facility] - x10(9)/L [facility] Eosinophils 0.12 0.03 - 01/16/2018 [facility] 0.48 1:57 PM [facility] - x10(9)/L [facility] Basophils 0.05 0.01 - 01/16/2018 [facility] 0.08 1:57 PM [facility] - x10(9)/L [facility] Specimen Anatomical Collection Method Collection Time Receive d Time (Source) Location / / Volume Laterality Blood (Blood, 01/16/2018 1:27 PM 01/17/20 18 1:49 Venous) RUG HOOKER HAND PM RUG HOOKER HAND Matthias Mtz M.D. LAB BLOOD ADD-ON Performing Organization Address City/[facility]/ZIP Code Phon e Number [facility] - 200 [place], [place] [address] [facility] Sedimentation Rate (01/16/2018 1:26 PM RUG HOOKER HAND) [facility] gist Method Time Signature Sedimentation 6 0 - 29 01/16/2018 [facility] Rate, B mm/1 h 3:48 PM RUG [facility]OOKER [facility] - [facility] Specimen Anatomical Collection Method Collection Time Receive d Time (Source) Location / / Volume Laterality Blood (Blood, 01/16/2018 1:26 PM 01/17/20 18 1:49 Venous) RUG HOOKER HAND PM RUG HOOKER HAND Matthias Mtz M.D. LAB BLOOD ADD-ON Performing Organization Address City/[facility] Code Phon e Number [facility] - [address] [place], [place] [address] [facility] documented in this encounter Visit Diagnoses Diagnosis Radiculopathy Lumbar documented in this encounter Additional Health Concerns Assessment Noted Time PHQ-9 Depression Total Score: 15 09/28/2017 3:51 PM CD T documented as of this encounter Care Teams Print Project Manager Relationship Specialty Start Date End Date Kandi Alberts, TATY, C.N.P. PCP - General 07/27/16 07/10/[address] [address] documented as of this encounter
--- OUTSIDE RECORDS SUMMARY | 2021-11-28 09:15 | XMS_ITS | Encounter Summary ---
:1985 Author Organization [facility] Address [address] [place] [address] Care Team Providers Name Role Phone Kandi Alberts APRN C.NGordonPGordon Primary Care Provider [phone] Encounter Details Date Type Department Care Team Description 01/25/2018 Documentation Department of Orthopedic Matthias Mtz, [facility] [place] [address] [address] [facility] [address] [place] [address] [phone] (Wo rk) Social History Tobacco Use Types [...] How often do you attend hindu or adventist Never 01/31/2019 services? Do you belong to [...] at Date Recorded Female 01/11/2018 2:20 PM CONDUCTOR PULLMAN documented as of this encounter Progress Notes Matthias Mtz M.D. - 01/25/2018 8:35 AM CST Ms. Odonnell went ahead and completed a postoperative MRI with gadolinium LSP on 01/23. The MRI shows some appropriate postoperative changes. There is clear decompression of the left S1 nerve root as result of surgery. This decompression is both ventral and dorsal. There is still residual protrusion, as is expected in a global failure of the disc. There is some subtle suggestion of potentially recurrent disc material directly ventral and medial to the left S1 nerve root. The there is no corresponding dorsal compressive material, due to the generous posterior decompression. If this is in fact a recurrent disc herniation, which should allow time and potentially injection to lead to a predictable good out come. She had a excellent outcome immediately after surgery, I suspect when these changes come down will return to this. We will discuss this by phone and proceed forward with an injection if she is still having significant symptoms. All other changes in her spine are stable, for instance the annular tear at L4- 5. I see no new left-sided neurologic stenosis. I also see no signs of postoperative infection or diskitis. Assessment: 1. Relatively unremarkable early postoperative MRI LSP, with adequate decompression left S1 nerve root, and potentially some recurrent disc herniation 2. Recurrent left sciatica Plan: 1. Follow up with patient by telephone, determine current clinical state 2. Time, rest and normal nonoperative care for an acute radiculitis/sciatica 3. Consider left S1 TF-RITA UCTOR PULLMAN documented in this encounter Plan of Treatment Not on filedocumented as of this encounter Visit Diagnoses Not on filedocumented in this encounter Additional Health Concerns Assessment Noted Time PHQ-9 Depression Total Score: 15 09/28/2017 3:51 PM CD T documented as of this encounter Care Teams Upstairs Maid Relationship Specialty Start Date End Date Kandi Alberts, TATY, C.N.P. PCP - General 07/27/16 07/10/18 [address], [place] [address] documented as of this encounter
--- OUTSIDE RECORDS SUMMARY | 2021-11-28 09:15 | XMS_ITS | Encounter Summary ---
:1985 Author Organization [facility] Address [address] [place] [address] Care Team Providers Name Role Phone Kandi Alberts APRN, C.N.P. Primary Care Provider [phone] Reason for Referral Physical Therapy (Routine) - Closed Specialty Diagnoses / Procedures Referred By Contact Refer red To Contact Diagnoses Pain Leg Pain Low Back Chronic Iliotibial Band Syndrome Left Gurmeet Moreno D.O., M.P.H. [address] [place] [address] Referral ID Status Reason Start Date Expiration Visits Visits Date Requested Authorized [id number] Closed Patient 06/03/2018 06/03/2019 1 1 Preference Reason for Visit Outpatient (Routine) - Closed Specialty Diagnoses / Procedures Referred By Contact Refer red To Contact Pain Medicine Diagnoses Pain Leg Aster Correa APRN, [facility], [facility] [address] [place], [place] [address] Referral ID Status Reason Start Date Expiration Date Visits V isits Requested Authorized [id number] Closed Specialty 2018 2019 1 1 Services Required Encounter Details Date Type Department Care Team Description 06/03/2018 Comprehensive Visit Division of Pain Tiffanie, Pain Low Back Chronic (Primary Dx); Medicine in Gurmeet Hickman, Pain Leg; Jami Tatum, M.P.H. Postlaminectomy Syndrome; [place] [address] Iliotibial Band Syndrome Left [address] [place] [address] [phone] Social History Tobacco Use Types Packs/Day Years [...] 11/27/2019 relatives? How often do you attend christianity or sikh Never 01/31/2019 services? 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 - 06/03/2018 1:00 PM CDT PAIN MEDICINE CLINIC CONSULTATION NOTE Chief Complaint/Indication For Visit Left lower extremity pain in the setting of prior back surgery History of Presenting Illness Ms. Odonnell is a 33-year-old female who is accompanied by her mother today in the office. I refer the interested reader to the nicely outlined notes my colleagues in Orthopedic Spine surgery, primary carefor full details regarding her history. In brief summary, the patient underwent a left L5-S1 foraminotomy with disc decompression for a radicular syndrome last fall. Her pain has been persistent about the low back and left leg since this time. She has additional compensatory left gluteal, greater trochanteric region as well as iliotibial band symptoms. Pain is described as constant in nature. It has neuropathic qualities including that of burning, tingling as well as paresthesias. Pain is typically provoked with any type of movement or prolonged periods of sitting/standing. Pain is typically alleviated with topical modalities as well as the use of gabapentin. Numerous different domains of her life for affected by her pain. She has trialed conservative therapies including physical therapy, acupuncture, client care specialist, as well as a recent L5 transforaminal epidural steroid injection which provided for a minimal benefit. Pain is graded anywhere from an 8-10/10. She denies current tobacco or illicit substance use. She is a recovering from alcohol addiction for the past 7 months. Denies other long tract signs. Stable bowel bladder function. Absent red flag features. Medications Current Outpatient Prescriptions: ??? acetaminophen (TYLENOL) 500 mg tablet, Take 2 tablets (1,000 mg total) by mouth 4 (four) times aday., Disp: , Rfl: ??? buPROPion (WELLBUTRIN SR) 200 mg 12 hr tablet, Take 1 tablet by mouth every AM, Disp: , Rfl: ??? clindamycin-benzoyl peroxide (BENZACLIN) 1-5 % gel, Apply 1 application topically every morning., Disp: 50 g, Rfl: 3 ??? FLUoxetine (PROzac) 20 mg capsule, Take 1 capsule by mouth every AM after solid food, Disp: , Rfl: ??? gabapentin (NEURONTIN) 300 mg capsule, Take as directed if needed for nerve pain. Start with 1 cap daily in evening. Each 3 days may increase dose if needed: to twice daily (noon and evening), thenafter 3 days to 3 times daily. Decrease dose, if needed, gradually every 3 days in the same manner.,Disp: 90 capsule, Rfl: 1 ??? tretinoin (RETIN-A) 0.025 % gel, Apply 1 application topically at bedtime., Disp: 45 g, Rfl: 3 Allergies Allergies Allergen Reactions ??? Morphine Edema and Other (see comments) Other reaction(s): Other - Describe In Comment Field Facial swelling and reddness Facial swelling and reddness Social History Social History Social History ??? Marital status: Single Spouse name: N/A ??? Number of children: N/A ??? Years of education: N/A Occupational History ??? Not on file. Social History Main Topics ??? Smoking status: Never Smoker ??? Smokeless tobacco: Never Used ??? Alcohol use 1.8 oz/week 3 Glasses of wine per week ??? Drug use: No ??? Sexual activity: Yes Partners: Male control/ protection: None Other Topics Concern ??? Not on file Social History Narrative ??? No narrative on file Personal/Family History History Drug Use No History Alcohol Use ??? 1.8 oz/week ??? 3 Glasses of wine per week History Smoking Status ??? Never Smoker Smokeless Tobacco ??? Never Used Family History Problem Relation Age of Onset ??? Diabetes Mother ??? Hyperlipidemia Mother ??? Asthma Mother ??? Hypertension Mother ??? Depression Mother ??? Seizures Mother ??? COPD Father ??? Alcoholism NOS Father ??? Healthy adult Sister ??? Colon cancer Maternal Grandfather ??? Arthritis Maternal Grandmother ??? Heart disease Maternal Grandmother ??? Osteoporosis Maternal Grandmother ??? Psychiatric disorder Maternal Grandmother Past Medical/Surgical History Past Surgical History: Procedure Laterality Date ??? SECTION ??? SECTION 07/26/07 ??? DECOMPRESSION SPINE - POSTERIOR LUMBAR N/A 01/07/2018 Procedure: L5-S1 microdiskectomy nerve root decompression.; Surgeon: Matthias Mtz M.D.; Location: [facility] OR ??? DILATION AND CURETTAGE OF UTERUS N/A 07/28/2003 D&C - Dilatation and curettage Past Medical History: Diagnosis Date ??? Alcoholism Personal History ([facility]) [id number] ??? Dependence Alcohol ([facility]) ??? Depression Major Recurrent Without Psychotic Features ([facility]) ??? Suicide Attempt Personal History overdose Review of Systems All 14 systems were reviewed and found to be negative except as noted. Physical Exam GENERAL/CONSTITUTIONAL: Well-developed, well-nourished individual in no acute distress. MENTAL STATUS/PSYCHIATRIC: Appropriate mood and affect. Grossly oriented with coherent speech and thought processing. NEUROLOGIC: Cranial nerves: Cranial nerve function grossly intact bilaterally. Coordination: Coordination is appropriate in upper and lower extremities. Reflexes: Bilateral upper and lower extremity muscle stretch reflexes are physiologic and symmetric.Plantar responses downgoing bilaterally. Sensation: Appropriate light touch sensation throughout upper and lower extremities, with slight differences in the L5 distribution on the left around the foot. SLR: Straight leg raise is negative for radicular pain or paresthesias bilaterally. MUSCULOSKELETAL: Gait: Gait reveals normal manolo and stride. Toe- and heel-walking are normal. Strength: All major muscle groups of the bilateral upper and lower extremities have normal and symmetric muscle strength, bulk, and tone, with the exception of give-way weakness of the left EHL and ankle dorsiflexion, graded -1. Spine: No gross axial skeletal deformities. Lumbar flexion -1, extension -1. Palpation: Inspection and palpation of the spine and extremities are unremarkable, with the exception of greater trochanteric tenderness over the left extending into the iliotibial band. Joint ROM: Joint range of motion is full and pain free without obvious instability or laxity in the major joints of all four extremities. No gross appendicular deformities. Provocative maneuvers: Lumbar: Negative lumbar quadrant tests bilaterally. No radiating pain with lumbar extension. Hip: Negative NITA and Stinchfield???s tests. SKIN: Skin inspection grossly negative for erythema, breakdown, or concerning lesions in affected area. LYMPHATIC: No lymphadenopathy is appreciated in the involved extremity. CARDIOVASCULAR: Pedal pulses intact. No lower extremity edema. RESPIRATORY: Breathing is comfortable and regular. No dyspnea noted during examination. GI/ABDOMINAL: Soft, non-distedned appearing without abdominal tenderness. EYES: Pupils 4 mm and symmetric bilaterally. No redness appreciated. Data and Imaging Review We independently reviewed the patient's most recent postsurgical MRI from January 2018 which did show interval left L5-S1 laminotomy with some postsurgical changes potentially affecting the left S1 nerve root. Otherwise, well-preserved disc spacing without neural foraminal or central canal stenosis. 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 Recommendations: 1. Therapy: Physical therapy prescription provided for low back pain, lumbar radiculopathy, as well as hip area myofascial pain. Discussed the importance of maintaining a fitness/activity program 2. Medications: She is on a stable regimen of mood medications. She is tolerating the gabapentin at low doses, but does have some cognitive defects. She is reluctant to increase this medication, but this certainly could be titrated upwards to 1200 mg 3 times a day. Recommend avoiding opioid medications . 3. Injections: I would consider repeating the left L5 transforaminal epidural steroid injection as well as possibly considering ultrasound-guided left greater trochanteric region corticosteroid injection. Patient does not wish to pursue injections at this time, but certainly could be considered in thefuture. 4. Advanced interventions: Wellness assessment consultation. Discussed core components of a neuromodulation Program particular in the setting of her primary diagnosis of failed back surgery syndrome. Ithink she would have great success with this, and I would be happy to pursue evaluation with our pain psychiatrist as well as nurse education should she decide to go down this road in the future. Provided an opportunity to ask questions, and questions were answered to the best of my ability. They were provided with my contact information and told to call with any questions or concerns Ready to learn, no apparent learning barriers were identified; learning preferences include listening. Explained diagnosis and treatment plan; patient expressed understanding of the content. Approximately 50 minutes of time was spent with the patient, with greater than 50% of the time spentin counseling and coordination of care. documented in this encounter Plan of Treatment Not on filedocumented as of this encounter Visit Diagnoses Diagnosis Pain Low Back Chronic - Primary Pain Leg Postlaminectomy Syndrome Iliotibial Band Syndrome Left documented in this encounter Additional Health Concerns Assessment Noted Time PHQ-9 Depression Total Score: 15 09/28/2017 3:51 PM CD T documented as of this encounter Care Teams Charge Operator Relationship Specialty Start Date End Date Kandi Alberts, TATY, C.N.P. PCP - General 07/27/16 07/10/[address] [address] documented as of this encounter
--- OUTSIDE RECORDS SUMMARY | 2021-11-28 09:15 | XMS_ITS | Encounter Summary ---
:1985 Author Organization [facility] Address [address] [place] [address] Care Team Providers Name Role Phone Kandi Alberts APRN C.N.PGordon Primary Care Provider [phone] Encounter Details Date Type Department Care Team Description 03/27/2018 Hospital Encounter Department of Javi, Pain Low Back Chronic; Radiology, Olu Doll on Disc Lumbar; Building, in Other Intervert ebral Disc Displacement Lumbar Region [place], [place] [address] [place] [address] Social History Tobacco Use Types Packs/Day Years [...] How often do you attend cheondoism or presybeterian Never 01/31/2019 services? Do you belong to [...] at Date Recorded Female 01/11/2018 2:20 PM SCIENTIFIC ILLUSTRATOR documented as of this encounter Medications at [...] Name Priority Date/Time Associated Diagnosis Comme nts DX LUMBAR SPINE RAD - Routine 03/27/2018 1:40 Pain Low Back Ch ronic Results for 2-3 VIEWS (most inpatients PM SCIENTIFIC ILLUSTRATOR Degeneration Disc this p rocedure and all Lumbar are in the outpatients) Other Intervertebral results Disc Displacement section. Lumbar Region documented in this encounter Results DX Lumbar Spine 2-3 Views (03/27/2018 1:40 PM SCIENTIFIC ILLUSTRATOR) Anatomical Region Laterality Modality Lumbar Spine, Musculoskeletal RST LOS, Neuroradiology N/A Digital Radiography ARZ LOS, Muskuloskeletal FLA LOS Specimen (Source) Anatomical Collection Method Collection Time Re ceived Time Location / / Volume Laterality 03/27/2018 1:46 PM SCIENTIFIC ILLUSTRATOR Impressions 03/27/2018 1:48 PM SCIENTIFIC ILLUSTRATOR IMPRESSION: ??Partial L5-S1 laminectomy on the left. Narrowed lumbosacral interspace with facet arthritis. Mild de generative change left hip with some prominence at the femoral head/neck offs et. Narrative 03/27/2018 1:48 PM SCIENTIFIC ILLUSTRATOR EXAM: ??DX LUMBAR SPINE 2-3 VIEWS Procedure Note Candido Car M.D. - 03/27/2018Formatt ing of this note might be different from the original. EXAM: DX LUMBAR SPINE 2-3 VIEWS IMPRESSION: Partial L5-S1 laminectomy on the left. Narrowed lumbosacral interspace with facet arthritis. Mild de generative change left hip with some prominence at the femoral head/neck offs et. [facility] LIZ documented in this encounter Visit Diagnoses Diagnosis Pain Low Back Chronic Degeneration Disc Lumbar Other Intervertebral Disc Displacement L umbar Region documented in this encounter Additional Health Concerns Assessment Noted Time PHQ-9 Depression Total Score: 15 09/28/2017 3:51 PM CD T documented as of this encounter Care Teams E Business Consultant Relationship Specialty Start Date End Date Kandi Alberts, TATY, C.N.P. PCP - General 07/27/16 07/10/18 [address] [place] [address] documented as of this encounter
--- OUTSIDE RECORDS SUMMARY | 2021-11-28 09:16 | XMS_ITS | Encounter Summary ---
:1985 Author Organization [facility] Address [address] [place] [address] Care Team Providers Name Role Phone Kandi Alberts APRN, C.N.P. Primary Care Provider [phone] Reason for Visit Reason Comments Abdominal Cramping cramping in lower right abdo min along with breast discomfort x 1 month Appointment Request (Routine) - Closed Specialty Diagnoses / Procedures Referred By Contact Refer red To Contact Family Medicine Referral ID Status Reason Start Date Expiration Date Visits Requ ested Visits Authorized [id number] Closed 09/25/2017 09/25/2018 1 Encounter Details Date Type Department Care Team Description 09/28/2017 Office Visit Department of Family [facility] Pel naima And Perineal Medicine, Marisel Mcgregor, Pain (Pr imary Dx) Clinic, in [place] [address] [place] [address] [id number] Social History Tobacco Use Types Packs/Day Years [...] 11/27/2019 relatives? How often do you attend buddhist or orthodox Never 01/31/2019 services? Do you belong to any clubs or organizations such as No 01/31/2019 buddhist groups, unions, fraternal or athletic groups, or [...] at Date Recorded Female 01/11/2018 2:20 PM JAVA SOFTWARE ARCHITECT documented as of this encounter Last Filed Vital Signs Vital Sign Reading Time Taken Comments Blood Pressure 112/72 09/28/2017 3:47 PM CDT Pulse 80 09/28/2017 3:47 PM CDT Temperature 37.1 ??C (98.8 ??F) 09/28/2017 3:47 PM CDT Respiratory Rate 16 09/28/2017 3:47 PM CDT Oxygen Saturation - - Inhaled Oxygen Concentration - - Weight 59 kg (130 lb 1.1 oz) 09/28/2017 3:47 PM CDT Height 162 cm (5' 3.78) 09/28/2017 3:47 PM CDT Body Mass Index 22.48 09/28/2017 3:47 PM CDT documented in this encounter Progress Notes Marisel Ferrer M.D. - 09/28/2017 3:00 PM CDT SUBJECTIVE CHIEF COMPLAINT / REASON FOR VISIT Bennie Odonnell is a 32 y.o. female who presents for evaluation of Abdominal Cramping (cramping in lower right abdomin along with breast discomfort x 1 month). HISTORY OF PRESENT ILLNESS For the last 3 weeks bennie has felt and anxious and crampy feeling in her lower abdomen. She has nothad much of a vaginal discharge but recalls feeling similarly when she had a Gardnerella infection earlier this year. She is somewhat concerned about . 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 She has also had some breast tenderness for the past 3 to 4 weeks. OBJECTIVE BP 112/72 Pulse 80 Temp 37.1 ??C (Temporal) Resp 16 Ht 162 cm Wt 59 kg LMP 09/14/2017 (Exact Date) ? No BMI 22.48 kg/m?? PHYSICAL EXAM GENERAL: Patient is alert and oriented, well groomed and appropriately dressed. ABDOMEN: Normal bowel sounds. No mass or tenderness. GENITALIA: New lesion is noted on the external genitalia. Vaginal mucosa appears normal. There is nounusual discharge. Sample was taken for vaginitis panel, gonorrhea, and Chlamydia. EXTREMITIES: Normal without edema. SKIN: No rashes or unusual lesions on exposed skin. ASSESSMENT / PLAN #1 Pelvic And Perineal Pain Following labs are obtained. She is informed of negative test prior to leaving today. - Vaginitis Panel - [facility] - Chlamydia / gonorrhoeae Amplified RNA - Test, POCT, Urine (lab) - [facility] Marisel Ferrer M.D. - 09/28/2017 3:00 PM CDT I called patient to let her know about the positive Gardnerella test and about a prescription at [facility]. documented in this encounter Plan of Treatment Not on filedocumented as of this encounter Procedures Procedure Name Priority Date/Time Associated Diagnosis Comme nts TEST, Routine 09/28/2017 4:43 PM Pelvic And Perineal Results for this POCT, U (LAB) CDT Pain procedure are in the results section. VAGINITIS PANEL Routine 09/28/2017 4:30 PM Pelvic And Perineal Results for this CDT Pain procedure are i n the results section. CHLAMYDIA/GONORRHOE Routine 09/28/2017 4:30 PM Pelvic And Knadice supa Results for this AE AMPLIFIED RNA CDT Pain procedure a re in the results section. documented in this encounter Results Test, POCT, Urine (lab) - [facility] (09/28/2017 4:43 PM CDT) P athologist Signature Negative 09/28/2017 [facility] Test, POCT, U 4:51 PM CDT [facility] Specimen Anatomical Collection Method Collection Time Receive d Time (Source) Location / / Volume Laterality Urine (Urine, 09/28/2017 4:43 PM 09/29/19 18 4:43 Clean Catch) CDT PM CDT Marisel Ferrer M.D. LAB POCT ORDERABLES - DEVICE Performing Organization Address City/[facility]/ZIP Code Phon e Number [facility]- [address] [place] [address] [place] [address] [place] [facility]- [address] [place] [address] [place], [place] [address] [place] [facility] Chlamydia / gonorrhoeae Amplified RNA (09/28/2017 4:30 PM CDT) PathVindi gist Method Time Signature Source VAGINA 10/01/2017 [facility] 1:38 PM CDT [facility] Chlamydia Negative Negative 10/01/2017 [facility] trachomatis 1:38 PM CDT [facility] Comment: ----ADDITIONAL INFORMATION---- This report is intended for use in clini kehinde monitoring and management of patients. It is not in tended for use in medical-legal applications. Source vagina 10/01/2017 1:38 PM CDT [facility] Neisseria gonorrhoeae Negative Negative 10/01/2017 1:3 8 PM CDT [facility] amplified [facility] Comment: ----ADDITIONAL INFORMATION---- This report is intended for use in clini kehinde monitoring and management of patients. It is not in tended for use in medical-legal applications. Specimen Anatomical Collection Method Collection Time Receive d Time (Source) Location / / Volume Laterality Varies 09/28/2017 4:30 PM 8 (Cervix/Endocerv CDT 11:32 PM CD T ix) Marisel Ferrer M.D. LAB MICROBIOLOGY - GEN ERAL ORDERABLES Performing Organization Address City/[facility]/ZIP Code Phon e Number [facility] [address] [place] [address] LAB (ABNORMAL) Vaginitis Panel - [facility] (09/28/2017 4:30 PM CDT) [employer] Method Time Signature Nichol Negative Negative 09/28/2017 [facility] species, DNA 5:36 PM CDT [facility] [place] [facility] Gardnerella Positive (A) Negative 09/28/2017 [facility] vaginalis, DNA 5:36 PM CDT [facility] [place] [facility] Trichomonas Negative Negative 09/28/2017 [facility] vaginalis, DNA 5:36 PM CDT [facility] [place] [facility] Specimen Anatomical Collection Method Collection Time Receive d Time (Source) Location / / Volume Laterality Swab (Vagina) 09/28/2017 4:30 PM 09/29/19 18 4:46 CDT PM CDT Marisel Ferrer M.D. LAB MICROBIOLOGY - GEN ERAL ORDERABLES Performing Organization Address City/State/ZIP Code Phon e Number [facility] [address] [place] [address] [place] [facility]- [address] [place] [address] [place] [address] [place] [facility] documented in this encounter Visit Diagnoses Diagnosis Pelvic And Perineal Pain - Primary documented in this encounter Additional Health Concerns Assessment Noted Time PHQ-9 Depression Total Score: 15 09/28/2017 3:51 PM CD T documented as of this encounter Care Teams Supervisor Porcelain Department Relationship Specialty Start Date End Date Kandi Alberts, TATY, C.N.P. PCP - General 07/27/16 07/10/18 [address] [place] [phone] documented as of this encounter
--- OUTSIDE RECORDS SUMMARY | 2021-11-28 09:16 | XMS_ITS | Encounter Summary ---
:1985 Author Organization [facility] Address [address] [place] [address] Care Team Providers Name Role Phone Kandi Alberts APRN C.N.P. Primary Care Provider [phone] Reason for Visit Reason Onset Date Comments Pre-visit Testing Orders 07/05/2017 Encounter Details Date Type Department Care Team Description 07/05/2017 Clinical Department of Prescheduling, Pre-visit Te sting Communication Spine in Provider Orders [place], [place] [address] [place] [phone] Social History Tobacco Use Types Packs/Day Years [...] How often do you attend alevism or lutheran Never 01/31/2019 services? 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 PCP - General 07/27/16 07/10/18 [address] [place] [phone] documented as of this encounter
--- OUTSIDE RECORDS SUMMARY | 2021-11-28 09:16 | XMS_ITS | Encounter Summary ---
:1985 Author Organization [facility] Address [address] [place] [address] Care Team Providers Name Role Phone Kandi Alberts APRN C.N.P. Primary Care Provider [phone] Reason for Visit Auth/Cert Specialty Diagnoses / Procedures Referred By Contact Refer red To Contact Diagnoses Extruded Disc Lumbar Procedures FL LMNOTOMY W DCMPRN 1 SPACE LUMB Decompression Spine - Posterior Lumbar Referral ID Status Reason Start Date Expiration Date Visits Requ ested Visits Authorized [id number] 1 1 Encounter Details Date Type Department Care Team Description 01/07/2018 Anesthesia Event RST ROMB MAIN OR Denzel Richter, [address] [facility] [place] [address] [address] [facility] [phone] [place] [phone] (Wo rk) Anesthesia Record Procedure Summary Procedure Name Responsible Anesthesia Start Anesthesia Stop Anesthesiologist Time Time L5-S1 microdiskectomy Denzel Richter M.D. 01/07/18 1204 1 03/09/17 1434 nerve root decompression. Events Date Time Event Comment 01/07/2018 0807 1204 An Start Machine/Equipmen t Checked Infection Precautions Foll owed Procedure/Site Verified NPO Sta tus Verified Supine Standard ASA Mon itors Applied 1205 In Room 1210 An Induction 1215 An Intubation 1216 Turnover to Proceduralist 1245 Proc Start 1412 Proc Fin 1420 Turnover to ANE Staff 1424 Airway Removal Criteria Met 1424 Extubation/Airway Removed 1425 Out of Room 1426 an stop data 1434 An End I completed my h andoff to the receiving staff during whi ch we 1. Identified the patient 2. Ident ified the responsible provider 3. Revi ewed the pertinent medical history 4. Discussed the surgical course 5. Review ed intra-op anesthesia management and i ssues during anesthesia 6. Set expectati ons for post-procedure period 7. Allowe d opportunity for questions and ac knowledgement of understanding. Name Total fentanyl injection 50 mcg/mL 150 mcg lidocaine 2% (mg) injection 60 mg propofol 10 mg/mL 200 mg succinylcholine 20 mg/mL injection 60 mg ondansetron 4 mg/2 mL injection 4 mg phenylephrine 100 mcg/mL injection 450 mcg sugammadex 100 mg/mL injection 116 mg ceFAZolin injection 2,000 mg (ANCEF) 2 g propofol 10 mg/mL infusion 329.15 mg dexamethasone 4 mg/mL injection 4 mg tranexamic acid 600 mg in NaCl 0.9% IVPB 660 mg tranexamic acid 8 mg/mL in NaCl 0.9% 250 mL infusion ( CYKLOKAPRON) 226.97 mg rocuronium 10 mg/mL injection 50 mg phenylephrine 20 mg/250 mL infusion 1.7 mg droperidol 2.5 mg/mL injection 0.625 mg acetaminophen 10 mg/mL injection 1,000 mg ketorolac 30 mg injection 15 mg Lactated Ringers Free Drip 1,000 mL Agents No agents on file. Blood No blood administrations on file. Lines, Drains, and Airways Type Details Placement Removal Peripheral IV Placement Date: 01/07/18; 01/07/18 0631 by 01/08 0831 by Placement Time: 06; Shira Dove Sarah May, Catheter Size: 22 G; R.N., RN-BC Orientation: Left; Location: Hand; Site Prep: Chlorhexidine (Preferred); Insertion Attempts: 1; Removal Date: 01/08/18; Removal Time: 0831 ETT Placement Date: 01/07/18; 01/07/18 1215 by 01/07 1424 by Placement Time: 1215 Fransisco Wright, Manny Wright, (created via procedure CLINICAL STUDIES SPECIALIST, ZAK, D.N.P. CLINICAL STUDIES SPECIALIST, HOP PICKER, D.N.P. documentation); Mask Ventilation: Easy mask; Type: Standard ETT; Single Lumen Tube Size: 7 mm; Cuffed: Yes; Blade Size: De Anda 2; Location: Oral; Removal Date: 01/07/18; Removal Time: 1424 (RETIRED) Incision 01/07/18; 1215; Back; 01/07/18 1215 by 1418 by Posterior; STRP STRS Jahaira Tan, [facility] SKNCLSR NWVN 1/4X4 (x1), R.N. d, [place] DRSG GZ 16 PLY 4X4 (x1), Automat ed Batch Job DRSG TGDRM 4.75X4 (x1); 11/02/20 (Removed by background completion utility); 1418 (Removed by background completion utility) documented in this encounter Social History Tobacco Use Types Packs/Day Years [...] 11/27/2019 relatives? How often do you attend uatsdin or rastafarian Never 01/31/2019 services? Do you belong to any clubs or organizations such as No 01/31/2019 uatsdin groups, unions, fraternal or athletic groups, or [...] at Date Recorded Female 01/11/2018 2:20 PM SHINGLE TRIMMER documented as of this encounter OR Notes Anesthesia Postprocedure Evaluation - Fransisco Wright APRN, HOP PICKER, D.N.P. - 01/07/2018 2:37 PM CST Patient: Wendi Odonnell Procedure Summary Date: 01/07/18 Room / Location: [address] / [facility] in [place], [place] Anesthesia Start: 1204 Anesthesia Stop: 1434 Procedure: L5-S1 microdiskectomy nerve root decompression. (N/A ) Diagnosis: Stenosis Spinal Lumbar With Neurogenic Claudication (Stenosis Spinal Lumbar, Neurogenic Claudication [M48.062].) Provider: Matthias Mtz M.D. Responsible Provider: Denzel Richter M.D. Anesthesia Type: general ASA Status: 2 Anesthesia Type: general Last vitals BP Temp 36.8 ??C (01/07/18 1430) Pulse Resp SpO2 Anesthesia Post Evaluation Patient Disposition: general care unit Cardiovascular status: hemodynamics (HR & BP) acceptable Respiratory status: patent airway with spontaneous effort Temperature: normothermic Oxygen requirements: room air Level of consciousness: awake Pain score: pain adequately controlled and/or at baseline Post Op nausea/vomiting: none Hydration status: euvolemic GLE TRIMMER Anesthesia Procedure Notes - Fransisco Wright APRN, CRNA, D.N.P. - 01/07/2018 12:36 PM CSTAssociated Order(s): AIRWAY MANAGEMENT Airway Date/Time: 01/07/2018 12:15 PM Patient location during procedure: OR / Procedure Area Performed by: FRANSISCO WRIGHT Authorized by: DENZEL RICHTER Pre procedure details Pre evaluation for airway management: procedure Urgency: elective Preop assessment of probable difficulty: no difficulty anticipated Sedation level: anesthetized Preoxygenation: bag valve mask Procedure details Mask difficulty assessment: easy mask Final airway type: direct laryngoscopy, intubation Laryngeal Manipulation: no Final airway difficulty of direct laryngoscopy (DL): 0-easy Final best view of glottic structures - Cormack/Lehane Score: grade 1 ETT location: oral Adult blade type: De Anda 2 Adult tube size: 7 Adult ETT distance at teeth/gum: 21 Oral tube type: standard ETT Cuffed: yes Number of attempt to successful placement: 1 Airway confirmation: bilateral breath sounds, positive ETCO2 and bilateral chest rise Other previous techniques attempted: none Post procedure details Procedure outcome: successful Airway event: no complications GLE TRIMMER Anesthesia Preprocedure Evaluation - Denzel Richter M.D. - 01/07/2018 5:34 AM CST Anesthesia Pre-Evaluation Pertinent components of the patient's history including current problem list, medical history, surgical history, family history, social history, medications and allergies were reviewed and updated as appropriate. The patient was examined and the Pre-op diagnosis, planned procedure, and H&P were reviewed and remain unchanged. PROBLEM LIST Relevant Problems Other (+) Borderline Personality Disorder (HCC) (+) Degeneration Disc Lumbar (+) Generalized anxiety disorder (+) Pain Low Back Chronic OBJECTIVE PHYSICAL EXAMINATION Airway (HEENT) Mallampati: I TM Distance: >3 FB Neck ROM: Full Mouth Opening: >3 cm Cardiovascular Rhythm: Regular Rate: Normal Cardiovascular Assessment: cardiovascular normal Functional Capacity: >4 METS Pulmonary Pulmonary Assessment: Clear Neurological Normal Dental Normal General / Constitutional Normal ASSESSMENT / PLAN ANESTHESIA PLAN ASA: 2 Anesthesia Plan: general Case will be delayed until at least 11 am due to patient eating string cheese at 11 am. Patient seen and allergies reviewed; anesthesia plan and risks discussed directly with patient / legal guardian, or through an weight guesser; patient evaluated and approved for anesthesia / sedation. Use of blood products discussed with patient who consented to blood products. GLE TRIMMER documented in this encounter Plan of Treatment Not on filedocumented as of this encounter Procedures Procedure Name Priority Date/Time Associated Comments Diagnosis LDA ANE ENDOTRACHEAL Routine 01/07/2018 12:36 Res ults for this AIRWAY PM SHINGLE TRIMMER procedure are i n the results section. documented in this encounter Results LDA ANE ENDOTRACHEAL AIRWAY (01/07/2018 12:36 PM SHINGLE TRIMMER) Narrative Fransisco Wright APRN, CRNA, D.N.P. - 12:36 PM SHINGLE TRIMMER Fransisco Wright APRN, CRNA, D.N.P. ? 01/07/2018 12:37 PM Airway Date/Time: 01/07/2018 12:15 PM Patient location during procedure: OR / Procedure Area Performed by: FRANSISCO WRIGHT Authorized by: DENZEL RICHTER Pre procedure details ?? Pre evaluation for airway management : procedure ?? Urgency: elective ?? Preop assessment of probable difficu lty: no difficulty anticipated ?? Sedation level: anesthetized ?? Preoxygenation: bag valve mask Procedure details ??Mask difficulty assessment: easy mask ?? Final airway type: direct laryngosco py, intubation Laryngeal Manipulation: no ? Final airway difficulty of direct la ryngoscopy (DL): 0-easy ?? Final best view of glottic structure s - Cormack/Lehane Score: grade 1 ?? ETT location: oral ?? Adult blade type: De Anda 2 ?? Adult tube size: 7 ?? Adult ETT distance at teeth/gum: 21 ?? Oral tube type: standard ETT ?? Cuffed: yes ?? Number of attempt to successful plac ement: 1 ?? Airway confirmation: bilateral breat h sounds, positive ETCO2 and bilateral chest rise ?? Other previous techniques attempted: none Post procedure details ?? Procedure outcome: successful ? Airway event: no complications Procedure Note Fransisco Wright, TATY, HOP PICKER, D.N.P. - 12:36 PM CST Airway Date/Time: 01/07/2018 12:15 PM Patient location during procedure: OR / Procedure Area Performed by: FRANSISCO WRIGHT Authorized by: DENZEL RICHTER Pre procedure details Pre evaluation for airway management: p rocedure Urgency: elective Preop assessment of probable difficulty : no difficulty anticipated Sedation level: anesthetized Preoxygenation: bag valve mask Procedure details Mask difficulty assessment: easy mask Final airway type: direct laryngoscopy, intubation Laryngeal Manipulation: no Final airway difficulty of direct laryn goscopy (DL): 0-easy Final best view of glottic structures - Cormack/Lehane Score: grade 1 ETT location: oral Adult blade type: De Anda 2 Adult tube size: 7 Adult ETT distance at teeth/gum: 21 Oral tube type: standard ETT Cuffed: yes Number of attempt to successful placeme nt: 1 Airway confirmation: bilateral breath s ounds, positive ETCO2 and bilateral chest rise Other previous techniques attempted: no ne Post procedure details Procedure outcome: successful Airway event: no complications Denzel Richter M.D. ANESTHESIA ORDERABLES documented in this encounter Visit Diagnoses Not on filedocumented in this encounter Administered Medications Inactive Administered Medications - up to 3 most recent administrations Medication Order MAR Action Action Date Dose Rate Site acetaminophen injection Given 01/07/2018 2:05 PM SHINGLE TRIMMER 1,000 mg (OFIRMEV) Administer over 15 Minutes, As needed, Starting on Sun01/07/18 at 1405, Anesthesia Intra-op ceFAZolin injection 2,000 mg (ANCEF) Given 01/07/2018 12:30 PM SHINGLE TRIMMER 2 g 2,000 mg (rounded from 1,450 mg = 25 mg/ kg ? 58 kg Dosing weight), intravenous, Once, On Sun01/07/18 at 0745, For 1 dose, Intra-Op, Preoperatively within 1 hour prior to surgical incision [place] IV push over 3 minutes. Add 5 mL NS to 1 gram vial for a final concentration of 200 mg/mL., Drug Monitoring Program: Pharmacist to adjust medication dosing based on indication and drug clearance factors., Indications: Prophylaxis, surgical dexamethasone injection (DECADRON) Given 01/07/2018 12:25 PM SHINGLE TRIMMER 4 mg As needed, Starting on Sun01/07/18 at 1225, Anesthesia Intra-op droperidol injection (INAPSINE) Given 01/07/2018 2:08 PM SHINGLE TRIMMER 0.625 mg intravenous, As needed, nausea, vomiting, Starting on Sun01/07/18 at 1408, Anesthesia Intra-op fentaNYL injection (SUBLIMAZE) Given 01/07/2018 1:59 PM SHINGLE TRIMMER 50 mcg intravenous, As needed, severe pain or score 7-10 of 10, Starting on Sun01/07/18 at 1212, Anesthesia Intra-op Given 01/07/2018 12:12 PM SHINGLE TRIMMER 100 mcg ketorolac injection (TORADOL) Given 01/07/2018 2:12 PM SHINGLE TRIMMER 15 mg As needed, moderate pain or score 4-6 of 10, Starting on Sun01/07/18 at 1412, Anesthesia Intra-op lactated ringers New Bag 01/07/2018 2:08 PM SHINGLE TRIMMER intravenous, Continuous Infusion: Per Instructions PRN, Starting on Sun01/07/18 at 1208, Anesthesia Intra-op New Bag 01/07/2018 12:08 PM SHINGLE TRIMMER lidocaine (PF) (cardiac) injection Given 01/07/2018 12:12 PM SHINGLE TRIMMER 60 mg intravenous, As needed, Starting on Sun01/07/18 at 1212, Anesthesia Intra-op ondansetron (PF) injection (ZOFRAN) Given 01/07/2018 2:08 PM SHINGLE TRIMMER 4 mg intravenous, As needed, nausea, vomiting, Starting on Sun01/07/18 at 1408, Anesthesia Intra-op phenylephrine 80 mcg/mL in Rate/Dose 01/07/2018 1:01 0.4 mcg/kg/min 17.4 mL/hr NaCl 0.9% 250 mL infusion Change PM SHINGLE TRIMMER Continuous Infusion: Per Instructions PRN, Starting on Sun01/07/18 at 1258, Anesthesia Intra-op New Bag 01/07/2018 12:58 PM SHINGLE TRIMMER 0.3 mcg/kg/min 13.1 mL/hr phenylephrine injection Given 01/07/2018 12:52 PM SHINGLE TRIMMER 100 mcg intravenous, As needed, Starting on Sun01/07/18 at 1224, Anesthesia Intra-op Given 01/07/2018 12:34 PM SHINGLE TRIMMER 150 mcg Given 01/07/2018 12:25 PM SHINGLE TRIMMER 100 mcg propofol 10 mg/mL infusion Rate/Dose 01/07/2018 2:05 25 mcg/kg/min 8 .7 mL/hr (DIPRIVAN) Change PM SHINGLE TRIMMER Continuous Infusion: Per Instructions PRN, Starting on Sun01/07/18 at 1215, Anesthesia Intra-op New Bag 01/07/2018 12:15 PM SHINGLE TRIMMER 50 mcg/kg/min 17.4 mL/hr propofol injection (DIPRIVAN) Given 01/07/2018 12:13 PM SHINGLE TRIMMER 200 mg intravenous, As needed, Starting on Sun01/07/18 at 1213, Anesthesia Intra-op rocuronium injection (ZEMURON) Given 01/07/2018 12:35 PM SHINGLE TRIMMER 50 mg As needed, Starting on Sun01/07/18 at 1235, Anesthesia Intra-op succinylcholine-0.9% NaCl (PF) injection Given 01/07/2018 12:14 PM SHINGLE TRIMMER 60 mg (ANECTINE) intravenous, As needed, Starting on Sun01/07/18 at 1214, Anesthesia Intra-op sugammadex injection (BRIDION) Given 01/07/2018 2:13 PM SHINGLE TRIMMER 116 mg As needed, Starting on Sun01/07/18 at 1413, Anesthesia Intra-op tranexamic acid 600 mg in NaCl 0.9% IVPB New Bag 01/07/2018 12:23 PM SHINGLE TRIMMER 660 mg 600 mg (rounded from 587 mg = 10 mg/kg ? 58.7 kg Order-specific weight), intravenous, at 168 mL/hr, Administer over 20 Minutes, Once in surgery, OR use only, Starting on Sun01/07/18 at 0739, For 1 dose, Intra-Op tranexamic acid 8 mg/mL in New Bag 01/07/2018 12:38 PM SHINGLE TRIMMER 2 m g/kg/hr 14.7 mL/hr NaCl 0.9% 250 mL infusion (CYKLOKAPRON) 2 mg/kg/hr ? 58.7 kg Order-specific weight (14.675 mL/hr, rounded to 14.7 mL/hr), intravenous, Continuous, Starting on Sun01/07/18 at 0745, Intra-Op, In OR until skin closure. Pharmacy to adjust infusion dose for renal function. premix bag documented in this encounter Additional Health Concerns Assessment Noted Time PHQ-9 Depression Total Score: 15 09/28/2017 3:51 PM CD T documented as of this encounter Care Teams Revenue Agent Relationship Specialty Start Date End Date Kandi Alberts, TATY, C.N.P. PCP - General 07/27/16 07/10/[address] [address] documented as of this encounter
--- OUTSIDE RECORDS SUMMARY | 2021-11-28 09:16 | XMS_ITS | Encounter Summary ---
:1985 Author Organization [facility] Address [address] [place] [address] Care Team Providers Name Role Phone Kandi Alberts APRN, C.N.P. Primary Care Provider [phone] Encounter Details Date Type Department Care Team Description 10/30/2017 Abstract DATA ABSTRACTION Provider, Historical Social History Tobacco Use Types Packs/Day Years [...] How often do you attend jew or gnosticism Never 01/31/2019 services? 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 PCP - General 07/27/16 07/10/[address], [place] [address] documented as of this encounter
--- OUTSIDE RECORDS SUMMARY | 2021-11-28 09:16 | XMS_ITS | Encounter Summary ---
:[address] [facility] Address [address] [place] [address] Care Team Providers Name Role Phone Kandi Alberts APRN C.NGordonPGordon Primary Care Provider [phone] Encounter Details Date Type Department Care Team Description 11/28/2017 Hospital Encounter Department of Matthias Mtz Pain Back Lumbar Laboratory Medicine [facility] Pathology, [place] [address] [place] [address] in [place], [place] [address] [place] [address] [place], [place] (Work) [phone] Social History Tobacco Use Types Packs/Day Years [...] How often do you attend moravian or anabaptism Never 01/31/2019 services? 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 May make you drowsy. acetaminophen (TYLENOL) Take 2 tablets (1,000 0 1 03/09/2017 12/09/2019 500 mg tablet mg total) by mouth 4 (four) times a day. buPROPion (WELLBUTRIN Take 1 tablet by 0 06/19/19 18 12/09/2019 SR) 200 mg 12 hr tablet mouth every AM gabapentin (NEURONTIN) Take 300 mg by mouth 0 12/201604/17/2018 300 mg capsule at bedtime. HYDROcodone-acetaminophe Take 1 tablet by 10 tablet 0 11/2801/08/2018 n (NORCO) 5-325 mg per mouth every 6 (six) tabletIndications: Acute hours as needed for Pain pain Indication: Acute Pain. norgestimate-ethinyl Take 1 tablet by 0 7 04/17/2018 estradiol (ORTHO-CYCLEN) mouth daily. 0.25- mg-35 mcg per tablet oxyCODONE (ROXICODONE) 5 Take 1 tablet (5 mg 25 tablet 0 04/17/2018 mg immediate release total) by mouth every tabletIndications: 4 (four) hours as Prolonged Acute needed for moderate Pain/Traumatic Injury pain or score 4-6 of 10 or severe pain or score 7-10 of 10 (if other analgesics fail) Indication: Prolonged Acute Pain/Traumatic Injury. You may take 2 tablets (10mg) for severe pain refractory to 5mg dose. sennosides-docusate Take 1 tablet by 0 01/07/2018 04/17/2018 sodium (SENOKOT-S) mouth 2 (two) times a 8.6-50 mg per tablet day. tiZANidine (ZANAFLEX) 2 1 tab up to three 0 03/2004/17/2018 mg tablet times daily, use mostly at night for muscle relaxer. May make you drowsy. UNABLE TO FIND Take by mouth daily. 0 01/08/2018 Med Name: Herbal Life Supplement documented as of this encounter Plan of Treatment Not on filedocumented as of this encounter Procedures Procedure Name Priority Date/Time Associated Comments Diagnosis STAPHYLOCOCCUS AUREUS, Routine 11/28/2017 11:28 Pain Back Lumb ar Results for this PCR AM CDT procedure are i n the results section. MRSA CULTURE Routine 11/28/2017 11:26 Results for this AM CDT procedure are i n the results section. documented in this encounter Results (ABNORMAL) Staphylococcus aureus PCR (11/28/2017 11:28 AM CDT) [facility] Satiety Method Time Signature Staphylococcus NARES 11/29/[address] [facility] aureus PCR BILATERAL 12:11 PM LABORATORIES - Specimen Source SWAB CDT [facility] Result Positive Not 11/29/[address] [facility] (A) Applicable 12:11 PM LABORATORIES - CDT [facility] Comment: ----ADDITIONAL INFORMATION---- This test was developed and its performa nce characteristics determined by [facility] in a manner consistent with CLIA requirements. This test has not been cleared or approved by the [place] d and Drug Administration. Specimen Anatomical Collection Method Collection Time Receive d Time (Source) Location / / Volume Laterality Varies (Nares) 11/28/2017 11:28 8 AM CDT 12:08 PM CDT Matthias Mtz M.D. LAB MICROBIOLOGY - GENERAL O RDERAAGUILA Performing Organization Address City/[facility] Code Phon e Number [facility]ORATORIES - [address] [id number] 05 [facility] MRSA Culture (11/28/2017 11:26 AM CDT) [facility] Satiety Method Time Signature MRSA Culture No growth 11/30/[address] [facility] of MRSA 2:29 PM CDT LABORATORIES - [facility] Specimen Anatomical Collection Method Collection Time Receive d Time (Source) Location / / Volume Laterality Nares 11/28/2017 11:26 11/29/2017 AM CDT 12:22 PM CDT Comment: Specimen Source Site: SWAB Matthias Mtz M.D. LAB MICROBIOLOGY - GENERAL O RDERAAGUILA Performing Organization Address City/[facility] Phon e Number [facility] - [address] documented in this encounter Visit Diagnoses Diagnosis Pain Back Lumbar documented in this encounter Additional Health Concerns Assessment Noted Time PHQ-9 Depression Total Score: 15 09/28/2017 3:51 PM CD T documented as of this encounter Care Teams Campus Administrator Relationship Specialty Start Date End Date Kandi Alberts, TATY, C.N.P. PCP - General 07/27/16 07/10/[address] [address] documented as of this encounter
--- OUTSIDE RECORDS SUMMARY | 2021-11-28 09:16 | XMS_ITS | Encounter Summary ---
:1985 Author Organization [facility] Address [address] [place] [address] Care Team Providers Name Role Phone Kandi Alberts APRN CGordonNGordonPGordon Primary Care Provider [phone] Encounter Details Date Type Department Care Team Description 09/28/2017 Orders Only Department of [facility] Carito coronado [facility] in [facility] rotary dryer operator [address] [place] [address] [facility] [place] [phone] (Wo rk) Social History Tobacco Use Types [...] How often do you attend episcopalian or rastafarian Never 01/31/2019 services? Do you [...] Date Recorded Female 01/11/2018 2:20 PM SQL SSRS DEVELOPER documented as of this encounter Plan of Treatment Not on filedocumented as of this encounter Visit Diagnoses Not on filedocumented in this encounter Additional Health Concerns Assessment Noted Time PHQ-9 Depression Total Score: 15 09/28/2017 3:51 PM CD T documented as of this encounter Care Teams Medical Billing Representative Relationship Specialty Start Date End Date Kandi Alberts, DIGITAL STRATEGIST SENIOR MANAGER, C.N.P. PCP - General 07/27/16 07/10/[address] [address] documented as of this encounter
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
--- OUTSIDE RECORDS SUMMARY | 2021-11-28 09:16 | XMS_ITS | Encounter Summary ---
:1985 Author Organization [facility] Address [address] [place] [address] Care Team Providers Name Role Phone Kandi Alberts APRN C.N.P. Primary Care Provider [phone] Encounter Details Date Type Department Care Team Description 01/15/2018 Documentation Department of Orthopedic Ginger Diaz, Surgery in [facility], [place] [address] [address] [facility] [address] [place] [phone] (Wo rk) Social History Tobacco Use Types [...] How often do you attend uatsdin or cheondoism Never 01/31/2019 services? Do you belong to [...] at Date Recorded Female 01/11/2018 2:20 PM [employer] JOINTER documented as of this encounter Progress Notes Ginger Mendoza R.N. - 01/15/2018 9:49 AM CST Ms Odonnell sent a portal message yesterday stating what sounds like new left foot numbness since her L5-S1 decompression on 01/07/18. I responded to her message that numbness may occur post-operatively asa result of nerve irritation from the surgical procedure. Her symptoms will need ot be monitored butwill also discuss at her follow-up visit tomorrow, 01/16/18, with Dr. Mtz. E [employer] JOINTER documented in this encounter Plan of Treatment Not on filedocumented as of this encounter Visit Diagnoses Not on filedocumented in this encounter Additional Health Concerns Assessment Noted Time PHQ-9 Depression Total Score: 15 09/28/2017 3:51 PM CD T documented as of this encounter Care Teams Electronic Wirer Relationship Specialty Start Date End Date Kandi Alberts, TATY, C.N.P. PCP - General 07/27/16 07/10/18 [address] [address] documented as of this encounter
--- OUTSIDE RECORDS SUMMARY | 2021-11-28 09:16 | XMS_ITS | Encounter Summary ---
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 years ago. She has had chronic low back pain ever since. We have clearly discussed that there is absolutely no expectation that any of her chronic low back pain will improve with our planned surgery.She feels that the left lower extremity symptom is equally debilitating at this time, and therefore this is our surgical target. This will be the sole focus of our surgical intervention. Perhaps some of the increased low back pain she is experiencing since her disc herniation may improve if it is related to nerve compression. Obviously her LBP will acutely flare as a result of surgery. She is thin and the exposure will be limited. This should resolve within 4-6wks. The left sciatica quality symptomshave developed insidiously over the last 2-3 years. There was not a specific inciting event. She hashad some degeneration of the lower two disc of her lumbar spine dating back to 2014, but in the mostrecent study she has a more focal protrusion at the left L5-S1 which produces the significant left lateral recess stenosis. This will be the anatomic target of our surgery. She has undergone exhaustive nonoperative therapy to include two rounds of injections, both of which exacerbated her symptoms. Atthis point in time our last anatomic approach to her sustained left sciatica will be our surgical plan today. We will generously decompress the area of the left S1 nerve root. We will insure that the S1 nerve root has ample room to function appropriately. We will hope that this restores her baseline functionality and eliminate the radiating lower extremity symptom. Any symptoms that persist beyond this surgery, that rise to a disabling level, will need to be addressed through a nonoperative approach. We have discussed this also at length. This will be through the [facility] program. After this surgery we can feel confident that we have exhausted anatomic approaches to her disease, and therefore must relyon a more holistic approach to any residual chronic pain syndrome. She has a complicated prior mental health history. For this reason we sought psychiatric clearance. She was seen on 12/18/17 by her local mental health provider and cleared for surgery. The discussion in that note echoes the point we laid out in our visit. We will continue her current medical management perioperatively and she is expected to follow-up. ?? The patient has been fully counseled on the risks, benefits, and alternatives. All questions have been answered to the patient's satisfaction. At this point in time, we are ready to proceed with the planned surgery. Description of procedure After informed consent was obtained, the patient was taken to the preoperative holding area where the correct side of surgery was identified in accordance with the [facility] protocol. The patient wasthen taken to the operative suite where the Anesthesia Team instilled a general endotracheal anesthetic. We then flipped the patient into the prone position onto a Aden spine table with a Yordy frame..We used a face pillow to support the head and made sure that there was no pressure on the eyes.. We placed arms in the 90/90 position. We placed knees into jelly donuts and bent them up to 45 degrees with pillows. When I was happy with the overall positioning, we brought the C-arm in and marked on theskin a midline incision centered over the surgical level. . We then prepped and draped in usual sterile fashion. A [facility] pause was called. Procedural pause conducted to verify: correct patient identity, procedure to be performed, and as applicable, correct side and site, correct patient position, and availability of implants, special equipment, or special requirements. We also confirmed that perioperative a ntibiotic was in and the SCDs were on and working. We then infiltrated the planned incision using Marcaine and epinephrine. Exposure An incision was made through the skin, dissecting down through subcutaneous fat to the level of the deep dorsal fascia, which was opened in line with the incision only on the left. We preserved the midline ligamentous structures. We then subperiosteally dissected along the spinous process to the lamina and then out to the facet joint, preserving the capsule. I placed a [place] under the targeted facet joint. I obtained a lateral image with retractors in position and confirmed our level (5/1). This was our radiographic time-out. Under direct visualization we permanently marked the area. We then completed the exposure and proceeded to the decompression. Posterior Decompression After completing the exposure, the posterior elements felt to be contributing to neurological stenosis were identified and isolated. The operative microscope was used to facilitate identification of the critical structures during the performance of the decompressive portions of this case. Partial decompressive laminectomy at L5 and S1 was performed using the bur and kerrisons to resect the leading edge of the caudal lamina and the inferior aspect of the cephalad lamina. We then resected the ligamentum flavum and medial facet capsule to expose the underlying dural tube and neural elements. We proceeded until the neural elements were fully decompressed to the level of the medial wall of the pedicle.Following partial decompressive laminectomy and medial facetetomy, we performed a limited microdisectomy at Left L5/1. We achieved a good ventral decompression. We irrigated the disc space to insure all loose fragments were removed. Cottonoid patties were used to protect the dura during the decompres moiz. We obtained hemostasis with a bipolar and gel-foam hemostatic. When the decompression was complete, we confirmed adequacy with a ball probe. Final Timeout: Prior to closure, we verified that all needles, sponges and surgical instruments were accounted for.We did repeat this step following closure. Close At the end of the case, we irrigated copiously irrigated. We also filled the wound with dilute povidone solution. This was left in the wound for three minutes and then removed and we irrigated further using normal saline. We placed vancomycin powder in the depth of the wound after obtaining good hemostasis. We did not place a drain. We placed about 1cc of depomedrol over the decompressed nerve to reduce postoperative inflammation/irritation. We then closed the wound in layers after removing the retractors. We then used 0 and No. 1 Vicryl to close down the deep dorsal fascia, 2-0 Vicryl to close down the deep dermal layer, 3-0 running Monocryl to close the subcuticular layer. We placed Steri-stripes and a sterile dressing. At the end of the case, the patient was then flipped into the supine position. The patient was turned over to the anesthesia team, extubated and taken to the recovery area in stable condition. Wound Class - Type 1 Specimens * No specimens in log * Drains * No drains in log * Estimated Blood Loss 20 mL Implants * No implants in log * Matthias Mtz M.D. 'S SWIM COACH Brief Op Note - Kavin Bailey M.D. - 01/07/2018 12:45 PM CST BRIEF OP NOTE Procedure(s): L5-S1 microdiskectomy nerve root decompression. Surgeon(s): Matthias Mtz M.D. Khezri, Navid, M.D. 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 Brief Operative Note Details Specimens * No specimens in log * Drains * No drains in log * Estimated Blood Loss No blood loss documented. Implants * No implants in log * Kavin Bailey M.D. 'S SWIM COACH documented in this encounter Miscellaneous Notes Hospital Course - Billy Mercado M.D. - 01/07/2018 3:43 PM CST Status post lumbar posterior decompression, L5-S1 After informed consent was obtained, the patient was brought to the operating room and underwent theabove-stated procedure performed by Dr. Mtz. For further details, please see Dr. Mtz's operative note. The patient was taken to the post anesthesia care unit postoperatively for recovery. Thepatient was subsequently transferred to the general floor where care was uncomplicated. The patient worked with nursing staff and therapy as needed and progressed their mobility. When the patient's pain was well-controlled, diet was tolerated, bowel function had returned, ambulation was safe, and all discharge criteria was met, the patient was discharged from the hospital. 'S SWIM COACH documented in this encounter Plan of Treatment Scheduled Referrals Name Type Priority Associated Diagnoses Order S chedule Ortho Surg / Outpatient Referral Routine Expected : Podiatry estab pt 04/09/2018 visit (clinic) (Approximate) , Expires: 01/07/2021 Ortho Surg postop Outpatient Referral Routine Pain Low B ack Chronic Expected: return (clinic) Degeneration Disc 018, Lumbar Expires: Other Intervertebral 021 Disc Displacement Lumbar Region documented as of this encounter Procedures Procedure Name Priority Date/Time Associated Comments Diagnosis SEDIMENTATION RATE, Routine 01/08/2018 3:14 Resul ts for B AM [facility] this procedure are in the results section. CBC WITHOUT Routine 01/08/2018 3:14 Results for DIFFERENTIAL, B AM [facility]S [facility] this procedu re are in the results section. C-REACTIVE PROTEIN Routine 01/08/2018 3:14 Result s for (CRP), S/P AM M[facility]S [facility] CO[facility] this procedure are in the results section. ADULT OXYGEN THERAPY Routine 01/07/2018 2:30 PM [facility]S [facility] [place] FLUORO LESS THAN RAD - Routine 01/07/2018 2:15 Resu lts for 1 HOUR (most inpatients PM MEN'S SWIM COACH this proced ure and all are in the outpatients) results section. DECOMPRESSION SPINE 01/07/2018 Stenosis Spinal - POSTERIOR LUMBAR 11:40 AM [facility]S SW[facility] Lumbar With Neurogenic Claudication documented in this encounter Results DX Lumbar Spine 2-3 Views (03/27/2018 1:40 PM MEN'S SWIM COACH) Anatomical Region Laterality Modality Lumbar Spine, Musculoskeletal RST LOS, Neuroradiology N/A Digital Radiography ARZ LOS, Muskuloskeletal FLA LOS Specimen (Source) Anatomical Collection Method Collection Time Re ceived Time Location / / Volume Laterality 03/27/2018 1:46 PM MEN'S [facility] CO[facility] Impressions 03/27/2018 1:48 PM MEN'S SWIM COACH IMPRESSION: ??Partial L5-S1 laminectomy on the left. Narrowed lumbosacral interspace with facet arthritis. Mild de generative change left hip with some prominence at the femoral head/neck offs et. Narrative 03/27/2018 1:48 PM MEN[facility]S SW[facility] COACH EXAM: ??DX LUMBAR SPINE 2-3 VIEWS Procedure Note Candido Car M.D. - 03/27/2018Formatt ing of this note might be different from the original. EXAM: DX LUMBAR SPINE 2-3 VIEWS IMPRESSION: Partial L5-S1 laminectomy on the left. Narrowed lumbosacral interspace with facet arthritis. Mild de generative change left hip with some prominence at the femoral head/neck offs et. Bridger Caldwell M.D. IMG DIAGNOSTIC IMAGING PROCE LIZ CRP (C-Reactive Protein) (01/08/2018 3:14 AM MEN[facility]S SWIM COACH) P athologist Signature C-Reactive 4.5 <=8.0 mg/L 01/08/2018 [facility] Protein (CRP), 4:44 AM [facility] - [facility] Specimen Anatomical Collection Method Collection Time Receive d Time (Source) Location / / Volume Laterality Blood (Blood, 01/08/2018 3:14 AM 01/09/20 18 4:08 Venous) MEN'S SWIM COACH AM [facility] Billy Mercado M.D. LAB BLOOD ADD-ON Performing Organization Address City/State/ZIP Code Phon e Number [facility] - [address], [place] [address] [facility] Sedimentation Rate (01/08/2018 3:14 AM M[facility]S [facility]) Patholo gist Method Time Signature Sedimentation 7 0 - 29 01/08/2018 [facility] Rate, B mm/1 h 5:14 AM [facility] Specimen Anatomical Collection Method Collection Time Receive d Time (Source) Location / / Volume Laterality Blood (Blood, 01/08/2018 3:14 AM 01/09/20 18 4:04 Venous) MEN'S SWIM COACH AM [facility] Billy Mercado M.D. LAB BLOOD ADD-ON Performing Organization Address [facility] Phon e Number [facility] - [address] [place] [phone] [facility] (ABNORMAL) CBC without Differential (01/08/2018 3:14 AM MEN'S SWIM COACH) [facility] gist Method Time Signature Hemoglobin 11.8 11.6 - 01/08/2018 [facility] 15.0 g/dL 4:16 AM [facility] Hematocrit 35.7 35.5 - 01/08/2018 [facility] 44.9 % 4:16 AM [facility] Erythrocytes 4.07 3.92 - 01/08/2018 [facility] 5.13 4:16 AM [facility] LABORATORIES - x10(12)/L [facility] MCV 87.7 78.2 - 01/08/2018 [facility] 97.9 fL 4:16 AM [facility] RBC Distrib 11.6 (L) 12.2 - 01/08/2018 [facility] Width 16.1 % 4:16 AM [facility] Platelet Count 226 157 - 371 01/08/2018 [facility] x10(9)/L 4:16 AM [facility] Leukocytes 14.6 (H) 3.4 - 9.6 01/08/2018 [facility] x10(9)/L 4:16 AM [facility] Specimen Anatomical Collection Method Collection Time Receive d Time (Source) Location / / Volume Laterality Blood (Blood, 01/08/2018 3:14 AM 01/09/20 18 4:08 Venous) MEN'S SWIM COACH AM [facility] Billy Mercado M.D. LAB BLOOD ADD-ON Performing Organization Address City/[facility] Code Phon e Number [facility] - [address] [phone] [facility] [place] Fluoro Less Than 1 Hour (01/07/2018 2:15 PM MEN[facility]S SWIM COACH) Specimen (Source) Anatomical Location Collection Method / Collectio n Time Received Time / Laterality Volume Narrative 152 HOS LOS RST - 01/07/2018 2:15 PM MEN'S SWIM COACH This exam does not require a radiologist review or interpretation. Please refer to the patient's medical record on this date for clinical details. Billy Mercado M.D. IMG FLUOROSCOPY PROCEDURES Performing Organization Address City/[facility] Phon e Number 152 HOS LOS RST documented in this encounter Visit Diagnoses Diagnosis Pain Low Back Chronic - Primary Degeneration Disc Lumbar Other Intervertebral Disc Displacement L umbar Region Stenosis Spinal Lumbar With Neurogenic C laudication Pain Low Back Chronic Degeneration Disc Lumbar Other Intervertebral Disc Displacement L umbar Region documented in this encounter Administered Medications Inactive Administered Medications - up to 3 most recent administrations Medication Order MAR Action Action Date Dose Rate Site acetaminophen tablet 1,000 mg Given 01/07/2018 7:14 AM [facility]S [facility] 1,000 mg (TYLENOL) 1,000 mg, oral, Once, On Sun01/07/18 at 0615, For 1 dose, Pre-Op, In PreOp holding (PWA) acetaminophen tablet 1,000 mg (TYLENOL) Given 01/08/2018 8:06 AM [facility]S SW[facility] COACH 1,000 mg 1,000 mg, oral, 4 times daily, First dose on Sun01/07/18 at 1700, Not to exceed 4 grams in 24 hours. Given 01/07/2018 8:04 PM M[facility]S SWIM COACH 1,000 mg Given 01/07/2018 5:42 PM [facility]S SW[facility] COACH 1,000 mg bupivacaine liposome (PF) 266 mg/20 mL Given 01/07/2018 2:04 PM [facility]S SW[facility] COACH 20 mL Back (13.3 mg/mL) injection 20 mL (EXPAREL) 20 mL, infiltration, Once in surgery, OR use only, Starting on Sun01/07/18 at 0739, For 1 dose, Intra-Op buPROPion 12 hr tablet 200 mg (WELLBUTRI N SR) Given 01/08/2018 8:05 AM [facility]S SW[facility] COACH 200 mg 200 mg, oral, Daily, First dose on Sun01/08/18 at 0900, Swallow whole. Do NOT crush, chew, or split tablet. ceFAZolin in dextrose (iso-os) IVPB 2 New Bag 01/08/2018 4:58 AM M[facility]S SW[facility] COACH 2 g 200 mL/hr g (ANCEF) 2 g, intravenous, at 200 mL/hr, Administer over 30 Minutes, Every 8 hours, First dose on Sun01/07/18 at 2000, For 2 doses, Start within 8 hours of last IV dose. premix, Drug Monitoring Program: Pharmacist to adjust medication dosing based on indication and drug clearance factors., Indications: Prophylaxis, surgical New Bag 01/07/2018 7:34 PM M[facility]S SW[employer] COACH 2 g 200 mL/hr fentaNYL injection 25 mcg (SUBLIMAZE) Given 01/07/2018 2:34 PM M[facility]S SW[facility] COACH 25 mcg 25 mcg, intravenous, Every 2 min PRN, For pain 4 or greater (maximum 100 mcg). If max dose of Fentanyl is reached and if pain is greater than 4, discontinue Fentanyl: give Hydromorphone, Starting on Sun01/07/18 at 1429, PACU (only) gabapentin capsule 300 mg (NEURONTIN) Given 01/07/2018 7:14 AM M[facility]S SW[employer] COACH 300 mg 300 mg, oral, Once, On Sun01/07/18 at 0615, For 1 dose, Pre-Op, preprocedure on unit with sips, Drug Monitoring Program: Pharmacist to adjust medication dosing based on indication and drug clearance factors. gabapentin capsule 300 mg (NEURONTIN) Given 01/07/2018 8:04 PM M[facility]S SW[employer] COACH 300 mg 300 mg, oral, Daily at bedtime, First dose on Sun01/07/18 at 2100 gelatin absorbable powder (GELFOAM) Given 01/07/2018 1:35 PM MEN'S SWIM COACH 1 g Back As needed, Starting on Sun01/07/18 at 1335, Intra-Op ibuprofen tablet 600 mg (ADVIL,MOTRIN) 600 mg, oral, Every 6 hours, First dose on Sun 8 at 1600, Start 6 hours after last ketorolac dose administered ketorolac injection 15 mg (TORADOL) Given 01/08/2018 4:58 AM M[facility]S SW[facility] COACH 15 mg 15 mg, intravenous, Every 6 hours, First dose on Sun01/07/18 at 1600, For 4 doses, Start no sooner than 6 hours after last intra-operative dose Adult IV push rate: Over 15 seconds. Peds IV push rate: Over 1 minute. 60 mg dose only for IM, not recommended for IV. Given 01/07/2018 10:47 PM MEN'S SWIM COACH 15 mg Given 01/07/2018 3:57 PM M[facility]'S SWIM COACH 15 mg lactated ringers New Bag 01/07/2018 3:34 PM M[facility]S SWIM COACH 100 mL/hr 100 mL/hr 100 mL/hr, intravenous, Continuous, Starting on Sun01/07/18 at 1415, PACU & Post-Op methylPREDNISolone acetate injection Given 01/07/2018 1:55 PM CS T 40 mg Back (DEPO-Medrol) As needed, Starting on Sun01/07/18 at 1355, Intra-Op oxyCODONE IR tablet 10 mg (ROXICODONE) Given 01/08/2018 12:22 AM [facility]S [facility] COACH 10 mg 10 mg, oral, Every 4 hours PRN, severe pain or score 7-10 of 10, or pain greater than comfort goal if other analgesics fail, Starting on Sun01/07/18 at 1532, Maximum dose of 10 mg in 4 hours. Given 01/07/2018 8:04 PM M[facility]S SW[employer] COACH 10 mg oxyCODONE IR tablet 5 mg (ROXICODONE) Given 01/08/2018 8:06 AM M[facility]S SW[facility] COACH 5 mg 5 mg, oral, Every 4 hours PRN, moderate pain or score 4-6 of 10, if other analgesics fail, Starting on Sun01/07/18 at 1532, Maximum dose of 10 mg in 4 hours povidone iodine 0.25% in NaCl 0.9% Given 01/07/2018 1:47 PM MEN'S SWIM COACH 1,000 mL Back irrigation solution 1,000 mL 1,000 mL, irrigation, Once in surgery, OR use only, Starting on Sun01/07/18 at 0739, For 1 dose, Intra-Op sennosides-docusate sodium 8.6-50 mg per Given 01/07/2018 8:03 P M MEN'S SWIM COACH 1 tablet tablet 1 tablet (SENOKOT-S) 1 tablet, oral, 2 times daily, First dose on Sun01/07/18 at 2100, for constipation vancomycin powder 1 g Given 01/07/2018 1:55 PM MEN'S SW[facility] COACH 1 vial Back 1 g (1 vial), topical, Once in surgery, OR use only, Starting on Sun01/07/18 at 0739, For 1 dose, Intra-Op, Do not reconstitute documented in this encounter Active and Recently Administered Medications Times are shown in MEN[facility]S SWIM COACH. Scheduled Medication Order 01/06/2018 01/07/2018 01/08/2018 acetaminophen tablet 1,000 mg (TYLENOL) (COMPLETED) 0714 (Given - Provider: Bridgette Sandoval RTyler) 1,000 mg, oral, Once, On Sun01/07/18 at 0615, For 1 dose, Pre-Op, In PreOp holding (PWA) acetaminophen tablet 1,000 mg (TYLENOL) 1742 (Given - Provider: Salina Mercado RSilva.)2004 (Given - Provider: Haile Augustine R.N.) 0806 (Given - Provider: Jahaira Rodriguez R.N., RN-BC) 1,000 mg, oral, 4 times daily, First dos e on Sun01/07/18 at 1700, Not to exceed 4 grams in 24 hours. buPROPion 12 hr tablet 150 mg (WELLBUTRIN SR) 08 (Due) 150 mg, oral, Once, Sun01/07/18 at 0815 , For 1 dose, Swallow whole. Do NOT crush, chew, or split tablet. buPROPion 12 hr tablet 200 mg (WELLBUTRIN SR) 08 (Given - Provider: Jahaira Rodriguez R.N., RN-BC) 200 mg, oral, Daily, First dose on Sun03/10/17 at 0900, Swallow whole. Do NOT crush, chew, or split tablet. ceFAZolin in dextrose (iso-os) IVPB 2 g (ANCEF) (COMPLETED) 1933 (New Bag - Provider: Haile Augustine R.N.)2009 (Stopped - Provider: Haile Augustine R.N.) 0458 (New Bag - Provider: Haile cherry R.NGordon) 2 g, intravenous, at 200 mL/hr, Administ er over 30 Minutes, Every 8 hours, First dose on Sun01/07/18 at 2000, For 2 doses, Start within 8 hours of last IV dose. premix, Drug Monitoring Program: Pharmac ist to adjust medication dosing based on indication and drug clearance factors., Indications: Prophylaxis, surgical ceFAZolin injection 2,000 mg (ANCEF) (COMPLETED) 1230 (Given - Provider: Fransisco Wright APRN, SPEECH THERAPIST EARLY INTERVENTION, D.N.P.) 2,000 mg (rounded from 1,450 mg = 25 mg/ kg ? 58 kg Dosing weight), intravenous, Once, On Sun01/07/18 at 0745, For 1 dose, Intra-Op, Preoperatively within 1 hour prior to surgical incision [place] IV push over 3 minutes. Add 5 mL NS to 1 g celina vial for a final concentration of 200 mg/mL., Drug Monitoring Program: Pharmacist to adjust medication dosing based on indication and drug clearance factors., Indications: Prophylaxis, surgical FLUoxetine capsule 20 mg (PROzac) 08 (Not Given - Provider: Jahaira Rodriguez R.N., SINCERE-BC - Reason: Patient/family refused) 20 mg, oral, Daily, First dose on Sun at 0900, FLUoxetine orderable was interchanged for FLUoxetine tablet/capsule gabapentin capsule 300 mg (NEURONTIN) (COMPLETED) 07 (Given - Provider: Bridgette Sandoval R.N.) 300 mg, oral, Once, On Sun01/07/18 at 0 615, For 1 dose, Pre-Op, preprocedure on unit with sips, Drug Monitoring Program: Pharmacist to adjust medication dosing based on indication and drug clearance factors. gabapentin capsule 300 mg (NEURONTIN) 20 04 (Given - Provider: Haile Augustine R.N.) 300 mg, oral, Daily at bedtime, First dose on Sun01/07/18 at 21 00 ibuprofen tablet 600 mg (ADVIL,MOTRIN)(Linked Group 1) 600 mg, oral, Every 6 hours, First dose on Sun01/08/18 at 1600, Start 6 hours after last ketorolac dose administered ketorolac injection 15 mg (TORADOL)(Linked Group 1) 1557 (Given - Provider: Salina Mercado R.N.)2247 (Given - Provider: Haile Augustine RTyler) 0458 (Given - Provider: Haile Augustine RTyler) 15 mg, intravenous, Every 6 hours, First dose on Sun01/07/18 at 1600, For 4 doses, Start no sooner than 6 hours after last intra-operative dose Adult IV push rate: Over 15 seconds. Peds IV push rate: O aurelio 1 minute. 60 mg dose only for IM, not recommended for IV. sennosides-docusate sodium 8.6-50 mg per tablet 1 tablet (SE NOKOT-S) 2002 (Given - Provider: Haile Augustine R.N.) 0807 (Not Given - Provider: Jahaira Rodriguez R.N., SINCERE-YESSICA - Reason: Patient/family refused) 1 tablet, oral, 2 times daily, First dos e on Sun01/07/18 at 2100, for constipation Continuous Medication Order 01/06/2018 01/07/2018 01/08/2018 lactated ringers 1534 (New Bag - Provider: Nahid Palma Sonya) 100 mL/hr, intravenous, Continuous, Star ting on Sun01/07/18 at 1415, PACU & Post-Op tranexamic acid 8 mg/mL in NaCl 0.9% 250 mL infusion (CYKLOK APRON) (CANCELED) 1238 (New Bag - Provider: Fransisco Wright APRN, SPEECH THERAPIST EARLY INTERVENTION, D.N.P.) 2 mg/kg/hr ? 58.7 kg Order-specific weight (14.675 mL/hr, rounded to 14.7 mL/hr), intravenous, Continuous, Starting on Sun01/07/18 at 0745, Intra-Op, In OR until skin closure. Pharmacy to adjust infusion dose for renal function. premix bag PRN Medication Order 01/06/2018 01/07/2018 01/08/2018 benzocaine-menthol 15-3.6 mg per lozenge 1 lozenge (CEPACOL) 1 lozenge, oral, As needed, sore throat, Starting Sun01/07/18 a t 1532 bisacodyl suppository 10 mg (DULCOLAX) 10 mg, rectal, Daily PRN, constipation, Starting Sun01/07/18 at 1532, Ordered sequence of administration: polyethylene glycol, then bisacodyl until BM achieved. bupivacaine liposome (PF) 266 mg/20 mL ( 13.3 mg/mL) injection 20 mL (EXPAREL) (COMPLETED) 1404 (Given - Provider: Matthias Mtz M.D.) 20 mL, infiltration, Once in surgery, OR use only, Starting on Sun01/07/18 at 0739, For 1 dose, Intra-Op calcium carbonate chewable tablet 400 mg of calcium (TUMS) 400 mg of calcium, oral, 4 times daily P RN, heartburn, indigestion, Starting Sun01/07/18 at 1532, Doses listed are in mg of elemental calcium. Take with food. 500 mg calcium carbonate contains 200 mg of elemental calcium. dexamethasone injection 4 mg (DECADRON) 4 mg, intravenous, Once as needed, nause a, vomiting, Starting Sun01/07/18 at 1532, For 1 dose, Give only if NOT given during the pre or intraoperative period. If ondansetron ordered, give dexamethasone with first dose of ondansetron. fentaNYL injection 25 mcg (SUBLIMAZE) (CANCELED) 1434 (Given - Provider: Francoise Hoover RGordonNGordon) 25 mcg, intravenous, Every 2 min PRN, Fo r pain 4 or greater (maximum 100 mcg). If max dose of Fentanyl is reached and if pain is greater than 4, discontinue Fentanyl: give Hydromorphone, Starting on Sun01/07/18 at 1429, PACU (only) gelatin absorbable powder (GELFOAM) (CANCELED) 1335 (Given - Provider: Matthias Mtz M.D. - Comment: mixed with 10,000 units of Thrombin) As needed, Starting on Sun01/07/18 at 1335, Intra-Op magnesium hydroxide suspension 30 mL (MILK OF MAGNESIA) 30 mL, oral, Daily PRN, constipation, St arting Sun01/07/18 at 1532, Give if no bowel movement by post-operative day 3. methylPREDNISolone acetate injection (DEPO-Medrol) (CANCELED ) 1355 (Given - Provider: Matthias Mtz M.D.) As needed, Starting on Sun01/07/18 at 1355, Intra-Op naloxone injection 0.2 mg (NARCAN) 0.2 mg, intravenous, As needed, respirat ory depression, Starting Sun01/07/18 at 1532, For respiratory rate less than 8 breaths per minute or RASS score of -3, -4, -5. Apply oxygen to keep oxygen saturations greater than 90% and notify service. oxyCODONE IR tablet 10 mg (ROXICODONE) 2 004 (Given - Provider: Haile Augustine RGordonN.) 0022 (Given - Provider: Haile Augustine R.N.) 10 mg, oral, Every 4 hours PRN, severe p ain or score 7-10 of 10, or pain greater than comfort goal if other analgesics fail, Starting on Sun01/07/18 at 1532, Maximum dose of 10 mg in 4 hours. oxyCODONE IR tablet 5 mg (ROXICODONE) 0806 (Given - Provider: Jahaira Rodriguez R.N., RN-BC) 5 mg, oral, Every 4 hours PRN, moderate pain or score 4-6 of 10, if other analgesics fail, Starting on Sun01/07/18 at 1532, Maximum dose of 10 mg in 4 hours polyethylene glycol powder packet 1 packet (MIRALAX) 1 packet, oral, Daily PRN, constipation, Starting Sun01/07/18 at 1532, Ordered sequence of administration: polyethylene glycol, then bisacodyl until BM achieved. Avoid mixing with starch-based thickened liquids., Indications: constipation povidone iodine 0.25% in NaCl 0.9% irrigation solution 1,000 mL (COMPLETED) 1347 (Given - Provider: Matthias Mtz M.D.) 1,000 mL, irrigation, Once in surgery, O R use only, Starting on Sun01/07/18 at 0739, For 1 dose, Intra-Op tiZANidine tablet 2 mg (ZANAFLEX) 2 mg, oral, Every 8 hours PRN, muscle spasms, Starting 01/07 at 1601 tranexamic acid 600 mg in NaCl 0.9% IVPB (COMPLETED) 1223 (New Bag - Provider: Fransisco Wright APRN, SPEECH THERAPIST EARLY INTERVENTION, D.N.P.) 600 mg (rounded from 587 mg = 10 mg/kg ? 58.7 kg Order-specific weight), intravenous, at 168 mL/hr, Administer over 20 Minutes, Once in surgery, OR use only, Starting on Sun01/07/18 at 0739, For 1 d ose, Intra-Op vancomycin powder 1 g (COMPLETED) 1355 ( Given - Provider: Matthias Mtz M.D.) 1 g (1 vial), topical, Once in surgery, OR use only, Starting on Sun01/07/18 at 0739, For 1 dose, Intra-Op, Do not reconstitute Linked Groups Order Group 1: ketorolac injection 15 mg (TORADOL)Jump to med 15 mg, intravenous, Every 6 hours, First dose on Sun01/07/18 at 1600, For 4 doses
Start no sooner than 6 hours after last intra-operative dose Adult IV push rate: Over 15 seconds.&amp ;nbsp;Peds IV push rate: Over 1 minute.& nbsp;60 mg dose only for IM, not recommended for IV.
Followed by ibuprofen tablet 600 mg (ADVIL,MOTRIN)Jump to med 600 mg, oral, Every 6 hours, First dose on Sun01/08/18 at 1600
Start 6 hours after last ketorolac dose administered
documented in this encounter Additional Health Concerns Assessment Noted Time PHQ-9 Depression Total Score: 09/28/2017 3:51 PM CD T documented as of this encounter Care Teams Social Services Director Relationship Specialty Start Date End Date Kandi Alberts, TATY, C.N.P. PCP - General 07/27/16 07/10/[address] [id number] documented as of this encounter
--- OUTSIDE RECORDS SUMMARY | 2021-11-28 09:16 | XMS_ITS | Encounter Summary ---
:1985 Author Organization [facility] Address [address] [place] [address] Care Team Providers Name Role Phone Kandi Alberts APRN CGordonNGordonPGordon Primary Care Provider [phone] Encounter Details Date Type Department Care Team Description 07/06/2017 Orders Only Department of Benny, Radiculopathy Neurologic Surgery in Marisa Chan P.A.-C. Lumbosacral (Primary [place], [place] [address] [facility] Dx) [address] [place] [id number] [phone] Social History Tobacco Use Types Packs/Day Years [...] How often do you attend advent or druze Never 01/31/2019 services? Do you belong to [...] at Date Recorded Female 01/11/2018 2:20 PM CONTEMPORARY OR MODERN DANCER documented as of this encounter Plan of Treatment Not on filedocumented as of this encounter Results DX Lumbar Spine 2-3 Views (11/21/2017 10:12 AM CDT) Anatomical Region Laterality Modality Lumbar Spine, Musculoskeletal RST LOS, Neuroradiology N/A Digital Radiography ARZ LOS, Muskuloskeletal FLA LOS Specimen (Source) Anatomical Collection Method Collection Time Re ceived Time Location / / Volume Laterality 11/21/2017 10:26 AM CDT Impressions 11/21/2017 10:29 AM CDT IMPRESSION: ??Lumbar curvature. Mild disk space narrowing at L4 and L5. Spinal canal narrowing of the lower lumbar spin e. Narrative 11/21/2017 10:29 AM CDT EXAM: ??DX LUMBAR SPINE 2-3 VIEWS Procedure Note Izaiah Valente M.D. - 11/21/2017Forma tting of this note might be different from the original. EXAM: DX LUMBAR SPINE 2-3 VIEWS IMPRESSION: Lumbar curvature. Mild disk space narrowing at L4 and L5. Spinal canal narrowing of the lower lumbar spin e. Marisa Zapata P.A.-C. IMG DIAGNOSTIC IMAGING LA OCEDURES documented in this encounter Visit Diagnoses Diagnosis Radiculopathy Lumbosacral - Primary Radiculopathy Lumbosacral documented in this encounter Additional Health Concerns Assessment Noted Time PHQ-9 Depression Total Score: 9 06/29/2017 11:57 AM CD T documented as of this encounter Care Teams Youth Worker Relationship Specialty Start Date End Date Kandi Alberts, TATY, C.N.P. PCP - General 07/27/16 07/10/18 [address] [place] [phone] documented as of this encounter
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
--- OUTSIDE RECORDS SUMMARY | 2021-11-28 09:16 | XMS_ITS | Encounter Summary ---
:1985 Author Organization [facility] Address [address] [place] [address] Care Team Providers Name Role Phone Kandi Alberts APRN CGordonNGordonPGordon Primary Care Provider [phone] Reason for Referral Outpatient (Routine) - Closed Specialty Diagnoses / Procedures Referred By Contact Refer red To Contact Diagnoses Radiculopathy Lumbar Weakness Leg Left Marisa Zapata, [facility] Procedures EMG P.A.-C. [address] [place], [place] [address] Referral ID Status Reason Start Date Expiration Date Visits Requ ested Visits Authorized [id number] Closed 11/21/2017 11/21/2018 1 1 Reason for Visit Outpatient (Routine) - Closed Specialty Diagnoses / Procedures Referred By Contact Refer red To Contact Diagnoses Radiculopathy Lumbar Weakness Leg Left Marisa Zapata, [facility] Procedures EMG P.A.-C. [address] [place], [place] [address] Referral ID Status Reason Start Date Expiration Date Visits Requ ested Visits Authorized [id number] Closed 11/21/2017 11/21/2018 1 1 Encounter Details Date Type Department Care Team Description 11/28/2017 Hospital Encounter Department of Zapata, Radiculo blanca Lumbar; Neurology in Marisa Chan Weakness Leg Le ft Sweetie Tatum [place] [address] [facility] 200 [place] [phone] [phone] Social History Tobacco Use Types Packs/Day Years [...] 11/27/2019 relatives? How often do you attend jehovah's witness or judaism Never 01/31/2019 services? 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 documented in this encounter Results EMG (11/28/2017 1:12 PM CDT) Specimen (Source) Anatomical Collection Method Collection Time Re ceived Time Location / / Volume Laterality 11/28/2017 1:15 PM CDT Narrative [facility] - 11/28/2017 3:27 PM CDT 28-Nov-2017 ? Electromyography ? Final Report Study Number: 1 EMG Ground Water Pump Installer: Benson Drew . 127 o r [phone] Referred by: MARISA AMATO (127 or ( [phone]) Referred for: low back and left leg pain Referral Code: ?012 ??022 RX: [id number] SUMMARY: Prior to starting the procedure , the patient's identity was verified, pertinent available records were reviewed, the nature of the procedure was explained, the appropriate sites of the exam were confirmed directly with the pa tient, and a pre-procedure pause was performed for [...] the interpretation. Liliam Jeffery/Mana Drew (127 or [phone])/ [facility] NERVE CONDUCTIONS ?Temperat ure: 30.2 ? ??C [...] Final Repor t Study Number: 1 EMG Ground Water Pump Installer: Benson Drew . 127 o r [phone] Referred by: MARISA AMATO (127 or ( [phone]) Referred for: low back and left leg [...] the interpretation. Liliam Jeffery/Mana Drew (127 or [phone])/ [facility] NERVE CONDUCTIONS Temperature: 30.2 ? ??C Record [...] and normal This interpretation has been electron val signed: Benson Drew MD at 11/28/2017 3:26:41 PM CDT Marisa Zapata P.A.-C. NEUROLOGY ORDERABLES Performing Organization Address City/State/ZIP Code Phon e Number [facility] documented in this encounter Visit Diagnoses Diagnosis Radiculopathy Lumbar Weakness Leg Left documented in this encounter Additional Health Concerns Assessment Noted Time PHQ-9 Depression Total Score: 09/28/2017 3:51 PM CD T documented as of this encounter Care Teams Network Strategist Relationship Specialty Start Date End Date Kandi Alberts APRN, C.N.P. PCP - General 07/27/16 07/10/[address] [phone] documented as of this encounter
--- OUTSIDE RECORDS SUMMARY | 2021-11-28 09:16 | XMS_ITS | Encounter Summary ---
:[address] [facility] Address [address] [place] [address] Care Team Providers Name Role Phone Kandi Alberts APRN CGordonNGordonPGordon Primary Care Provider Encounter Details Date Type Department Care Team Description 11/21/2017 Hospital Encounter Department of Helen aZpata Radiology, [place], in P.A.-C. [place], [address] [place], [place] [address] [facility] [address] [place], [place] [phone] (Work) [phone] Social History Tobacco Use Types Packs/Day Years [...] How often do you attend scientologist or caodaism Never 01/31/2019 services? 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 documented in this encounter Results DX Lumbar [...] lower lumbar spin e. Marisa Zapata P.A.-C. [facility] [place] [facility] documented in this encounter Visit Diagnoses Diagnosis Radiculopathy Lumbosacral documented in this encounter Additional Health Concerns Assessment Noted Time PHQ-9 Depression Total Score: 15 09/28/2017 3:51 PM CD T documented as of this encounter Care Teams Editing Intern Relationship Specialty Start Date End Date Kandi Alberts, TATY, C.N.P. PCP - General 07/27/16 07/10/[address] [phone] documented as of this encounter
--- OUTSIDE RECORDS SUMMARY | 2021-11-28 09:16 | XMS_ITS | Encounter Summary ---
:1985 Author Organization [facility] Address [address] [place] [address] Care Team Providers Name Role Phone Kandi Alberts APRN C.N.PGordon Primary Care Provider [phone] Reason for Referral MRI/CAT/PET Scan (Routine) - Closed Specialty Diagnoses / Procedures Referred By Contact Refer red To Contact Radiology Diagnoses Radiculopathy Lumbar Matthias Mtz M.D. 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 Degeneration Disc Lumbar; [place], [place] [address] Other Intervertebral Disc Displacement L umbar Region; [address] [place], [place] [phone] [phone] Social History Tobacco Use Types Packs/Day Years [...] How often do you attend mosque or jew Never 01/31/2019 services? 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 - 01/16/2018 12:15 PM CST SUBJECTIVE PATIENT: Wendi Odonnell DATE OF : 1985 SUBJECTIVE: Wendi Odonnell is a 32 y.o. female status post: L5-S1 microdiskectomy nerve root decompression on 01/07/18. Current status: Ms Odonnell returns today for her post-opertive wound check and evaluation of recurrent left foot numbness and left S1 dysesthesia. Level of satisfaction with her current outcome: Too early to tell. She was here for wound check. Shedid fantastic for the first two days, then she had some recurrent left lower extremity symptoms. There rather significant now. She does have some dysesthesias in the left S1 distribution as well as some tension phenomena. For this reason, we discussed the concept the postoperative radiculitis versus recurrent disc herniation. If this is radiculitis, this should be self-limited. It is getting better somewhat. We will continue to observe. If this persists, we can get a MRI of the lumbar spine. If the MRI occurs, all review that separately an and tape my recommendations. At the current time we have noplans for further surgery. There is no evidence of infection. There is no evidence of other ominous explanation for her recurrent symptoms. I suspect that these will slowly improve with time. In the absence of a recurrent disc herniation, I am uncertain as to why her excellent first 48 hr would not besomething that lasts as we get through the other side of the postoperative inflammatory stage. We discussed this. Preoperatively, her symptoms included: Back and left leg pain ?? Symptom Distribution: Back: 50% Le% Left leg 100% Postoperative Symptom Change: She reports that her: Back pain symptoms have improved. Left lower extremity symptoms have worsened. She denies new radicular or neurological symptoms. Spine ROS: Symptom location and intensity: Back-NRS: Moderate Impact: Moderate. LLE-NRS: 10 Impact: Severe. Neurological Deficits: Motor: None Sensory: Yes - New since surgery. Left hip, lateral thigh and calf pain. Numbness left foot.. Bladder: None Bowel: None Balance: Intermittent unsteadiness Other Details: Complications: Postoperative left S1 radiculitis OBJECTIVE PHYSICAL EXAMINATION: Constitutional: Alert and Oriented x 3 Abdomen: Soft, Nontender Skin: Incision (Posterior Midline): clean, dry and intact. Well healed. No evidence of infection. Distal extremities are warm and well perfused. Motor: No new myotomal deficits noted compared to preoperative state. Lower Extremity: There is some give-way quality to her examination, but no focal deficits. Sense: No new dermatomal deficits noted compared to preoperative state. Straight Leg Raise: Right: No Left: Yes - but only to the proximal distribution. Gait: Ambulating without assistance. Assistive Device: None. IMAGING: Not indicated. MRI with gadolinium can be obtained if symptoms persist. ASSESSMENT / PLAN ASSESSMENT: 1. S/p: L5-S1 microdiskectomy nerve root decompression on 01/07/18 PLAN: Reviewed current clinical outcome. Encouraged patient to lead a spine healthy lifestyle. All questions were answered to her satisfaction. 1. Improved treatment regimen. Encouraged her that this should improve with time. Ordered MRI just in case. We will follow up on the MRI if this occurs. If she has persistent symptoms beyond the next couple weeks, we could trial a left L5-S1 TF-RITA. Therapy: Rx for PT given to patient. LSP Stabilization, to be started at 6wks postop. Return to work: Not able at this time, due to left S1 symptoms. I suspect she will not be ready to return to work until at least three months postop. Next Follow-up: Postop 3-4mo MRI sooner, if symptoms persist. We can follow up result by telephone. I personally spent over half of a total of at least 10 minutes face to face with the patient in counseling and discussion and/or coordination of care as described above. [place] PHARMACIST documented in this encounter Plan of Treatment Not on filedocumented as of this encounter Results MR Lumbar Spine without and with IV Contrast (01/23/2018 2:59 PM RETAIL PHARMACIST) Anatomical Region Laterality Modality Lumbar Spine, Neuroradiology RST [facility], Neuroradiology N/A Magnetic Resonance ARZ [facility], Neuroradiology FLA [facility] Specimen (Source) Anatomical Collection Method Collection Time Re ceived Time Location / / Volume Laterality 01/23/2018 5:46 PM RETAIL PHARMACIST Impressions 01/23/2018 6:00 PM RETAIL PHARMACIST IMPRESSION: 1. Interval left L5-S1 laminotomy. Enhan [...] protrusion at L4-5. Narrative 01/23/2018 6:00 PM RETAIL PHARMACIST EXAM: MR LUMBAR SPINE WITHOUT AND WITH [...] small midline disc protrusion at L4-5. Matthias Mtz M.D. IMG MRI PROCEDURES CRP (C-Reactive Protein) (01/16/2018 1:27 PM RETAIL PHARMACIST) P athologist Signature C-Reactive <3.0 <=8.0 mg/L 01/16/2018 [facility] Protein (CRP), 2:40 PM RETAIL PHARMACIST LABORATORIES - S [facility] Specimen Anatomical Collection Method Collection Time Receive d Time (Source) Location / / Volume Laterality Blood (Blood, 01/16/2018 1:27 PM 01/17/20 18 1:49 Venous) RETAIL PHARMACIST PM RETAIL PHARMACIST Matthias Mtz M.D. LAB BLOOD ADD-ON Performing Organization Address City/State/ZIP Code Phon e Number [facility] LABORATORIES - [address] [facility] [facility] [address] [place], [place] [address] [facility] (ABNORMAL) CBC with Differential, Blood (01/16/2018 1:27 PM RETAIL PHARMACIST) Patholo gist Method Time Signature Hemoglobin 13.9 11.6 - 01/16/2018 [facility] 15.0 g/dL 1:57 PM RETAIL PHARMACIST LABORATORIES - [facility] Hematocrit 42.8 35.5 - 01/16/2018 [facility] 44.9 % 1:57 PM RETAIL PHARMACIST LABORATORIES - [facility] Erythrocytes 4.84 3.92 - 01/16/2018 [facility] 5.13 1:57 PM RETAIL PHARMACIST LABORATORIES - x10(12)/L [facility] MCV 88.4 78.2 - 01/16/2018 [facility] 97.9 fL 1:57 PM RETAIL PHARMACIST LABORATORIES [facility] RBC Distrib 11.8 (L) 12.2 - 01/16/2018 [facility] Width 16.1 % 1:57 PM RETAIL PHARMACIST LABORATORIES - [facility] Platelet Count 308 157 - 371 01/16/2018 [facility] x10(9)/L 1:57 PM RETAIL PHARMACIST LABORATORIES [facility] Leukocytes 11.7 (H) 3.4 - 9.6 01/16/2018 [facility] x10(9)/L 1:57 PM RETAIL PHARMACIST LABORATORIES - [facility] Neutrophils 7.59 (H) 1.56 - 01/16/2018 [facility] 6.45 1:57 PM RETAIL PHARMACIST LABORATORIES - x10(9)/L [facility] Lymphocytes 3.08 (H) 0.95 - 01/16/2018 [facility] 3.07 1:57 PM RETAIL PHARMACIST LABORATORIES - x10(9)/L [facility] Monocytes 0.81 0.26 - 01/16/2018 [facility] 0.81 1:57 PM RETAIL PHARMACIST LABORATORIES - x10(9)/L [facility] Eosinophils 0.12 0.03 - 01/16/2018 [facility] 0.48 1:57 PM RETAIL PHARMACIST LABORATORIES - x10(9)/L [facility] Basophils 0.05 0.01 - 01/16/2018 [facility] 0.08 1:57 PM RETAIL PHARMACIST LABORATORIES - x10(9)/L [facility] Specimen Anatomical Collection Method Collection Time Receive d Time (Source) Location / / Volume Laterality Blood (Blood, 01/16/2018 1:27 PM 01/17/20 18 1:49 Venous) RETAIL PHARMACIST PM RETAIL PHARMACIST Matthias Mtz M.D. LAB BLOOD ADD-ON Performing Organization Address City/[facility]/ZIP Code Phon e Number [facility] LABORATORIES - [address] [place], [place] [address] [facility] Sedimentation Rate (01/16/2018 1:26 PM RETAIL PHARMACIST) [facility] gist Method Time Signature Sedimentation 6 0 - 29 01/16/2018 [facility] Rate, B mm/1 h 3:48 PM RETAIL PHARMACIST LABORATORIES - [facility] Specimen Anatomical Collection Method Collection Time Receive d Time (Source) Location / / Volume Laterality Blood (Blood, 01/16/2018 1:26 PM 01/17/20 18 1:49 Venous) RETAIL PHARMACIST PM RETAIL PHARMACIST Matthias Mtz M.D. 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 PCP - General 07/27/16 07/10/[address] [phone] documented as of this encounter
--- OUTSIDE RECORDS SUMMARY | 2021-11-28 09:16 | XMS_ITS | Encounter Summary ---
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 [address] [place] [phone] Referral ID Status Reason Start Date Expiration Date Visits Requ ested Visits Authorized [id number] Closed 01/07/2018 01/07/2019 1 1 ITY ASSEMBLER Outpatient (Routine) - Closed Specialty Diagnoses / Procedures Referred By Contact Refer red To Contact Orthopedic Surgery Bridger Caldwell M .D. [address] [address] Referral ID Status Reason Start Date Expiration Date Visits Requ ested Visits Authorized [id number] Closed 01/07/2018 01/07/2019 1 1 ITY ASSEMBLER Reason for Visit Auth/Cert Specialty Diagnoses / Procedures Referred By Contact Refer red To Contact Diagnoses Extruded Disc Lumbar Procedures TX LMNOTOMY W DCMPRN 1 SPACE LUMB Decompression Spine - Posterior Lumbar Referral ID Status Reason Start Date Expiration Date Visits Requ ested Visits Authorized [id number] 1 1 Encounter Details Date Type Department Care Team Description 01/07/2018 - Hospital Encounter [facility] Bibi, Pain Low Back Chronic (Primary Dx); 01/08/2018 [facility] M.D. Degeneration Disc Lumbar; [facility], [place] [address] Other Intervertebral Disc Displacement L umbar Region [facility], [place], [place] Eighth Floor [id number] [phone] [place], [place] (Work) [phone] Social History Tobacco Use Types Packs/Day Years [...] 11/27/2019 relatives? How often do you attend buddhism or baptist Never 01/31/2019 services? Do you belong to any clubs or organizations such as No 01/31/2019 buddhism groups, unions, fraternal or athletic groups, or [...] at Date Recorded Female 01/11/2018 2:20 PM UTILITY ASSEMBLER documented as of this encounter Last Filed Vital Signs Vital Sign Reading Time Taken Comments Blood Pressure 132/87 01/08/2018 8:00 AM UTILITY ASSEMBLER Pulse 72 01/08/2018 8:36 AM UTILITY ASSEMBLER Temperature 36.9 ??C (98.42 ??F) 01/08/2018 8:00 AM UTILITY ASSEMBLER Respiratory Rate 16 01/08/2018 4:35 AM UTILITY ASSEMBLER Oxygen Saturation 96% 01/08/2018 8:36 AM UTILITY ASSEMBLER Inhaled Oxygen Concentration - - Weight 58 kg (127 lb 13.9 oz) 01/07/2018 6:00 AM UTILITY ASSEMBLER Height 168 cm (5' 6.14) 01/07/2018 6:00 AM UTILITY ASSEMBLER Body Mass Index 20.55 01/07/2018 6:00 AM UTILITY ASSEMBLER documented in this encounter Discharge Summaries Billy Mercado M.D. - 01/07/2018 3:41 PM CST DISCHARGE SUMMARY BRIEF OVERVIEW Discharge Provider: Matthias Mtz M.D. Primary Care Providers: Kandi Alberts, TATY, C.N.PGordon (General) [address] [facility] [phone] Primary Care Provider Primary Care Provider Other [...] Case IDs Date Procedure Surgeon Location Status [id number] 01/07/18 L5-S1 microdiskectomy nerve root decompression. Matthias [...] were provided to the patient and caregiver(s). ITY ASSEMBLER documented in this encounter Medications at Time [...] II-XII grossly intact. ? LE: R?L IP: ??5/ ?/ Q: ??/ ?5/5 H: ??06/16 ?5/ Hip Abd: 06/16 ?06/16 Hip Add: 06/16 ?/ TA: 06/16 ?06/16 EHL: 06/16 ?5/ P: ?5/5 ?5/5 ?? Sensation to light [...] today with routine follow-up, patient is from [facility] and would like tofollow up for her wound check in [place] Activity: as tolerated, up with assistance Labs: [...] contact the service of Dr. Mtz at [phone] with any questions or concerns regarding management of this patient. ITY ASSEMBLER Matthias Mtz M.D. - 01/07/2018 8:21 AM [...] at length. This will be through the [facility] program. After this surgery we can [...] she has been moved to second case. ITY ASSEMBLER documented in this encounter H&P Notes Kavin Bailey M.D. - 01/07/2018 2:20 PM CST Post-op: No complication, Awake, not fully alert, Exam as preop with weakness in Left EHL ITY ASSEMBLER Bridger Caldwell M.D. - 01/07/2018 7:55 AM [...] to proceed with surgery. All questions answered. ITY ASSEMBLER documented in this encounter Consult Notes Roshni Mcfarland P.T., D.P.T. - 01/08/2018 8:28 AM CST Physical Therapy Inpatient Evaluation/Treatment By co-signing this note, the provider certifies the therapy being provided to this patient is reasonable and necessary for the diagnosis or treatment of this patient. SUBJECTIVE Patient's Name: Wendi Odonnell Referring/Attending Provider: Matthias Mtz M.D. Medical Diagnosis: unk Reason for Referral: PT Evaluate and Treat ortho - spine Onset Date: 01/07/18 Payor: [facility] / Plan: [facility] / Product Type: Medicaid HMO / [...] root decompression.; Surgeon: Matthias Mtz M.D.; Location: [facility] OR ??? 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 Outcome Measures -[facility] Inpatient Short Form: AM-[facility] Mobility: How much difficulty does the patient [...] Standardized Score: 61.14 Interpretation: Clinicians answer the -[facility] Inpatient Short Form based on observed patient [...] G-code Worksheet Functional Assessment Tool Used: PT [facility] Functional Limitation: Mobility: Walking and moving around [...] Score: 0 % Basic Mobility CMS Modifier: CH Lisa Mcfarland P.T., [place]ima.PKeyona. ITY ASSEMBLER documented in this encounter Nursing Notes Jahaira Rodriguez R.N., RN-BC - 01/08/2018 8:00 AM CST Problem: PAIN [...] be discharge today. Will continue to monitor. ITY ASSEMBLER Salina Mercado R.N. - 01/07/2018 6:20 PM [...] Will continue to monitor as activity increases. ITY ASSEMBLER documented in this encounter OR Notes Op [...] generous decompression. We tried to use a [place] 4 to push through the outer margin [...] at length. This will be through the [facility] program. After this surgery we can [...] identified in accordance with the [facility] protocol. The patient wasthen taken to [...] in usual sterile fashion. A [facility] pause was called. Procedural pause conducted [...] joint, preserving the capsule. I placed a Kismet under the targeted facet joint. I obtained [...] implants in log * Matthias Mtz M.D. ITY ASSEMBLER Brief Op Note - Kavin Bailey M.D. [...] implants in log * Kavin Bailey M.D. ITY ASSEMBLER documented in this encounter Miscellaneous Notes Hospital [...] the patient was discharged from the hospital. ITY ASSEMBLER documented in this encounter Plan of [...] 01/08/2018 3:14 Resul ts for B AM UTILITY ASSEMBLER this procedure are in the results section. CBC WITHOUT Routine 01/08/2018 3:14 Results for DIFFERENTIAL, B AM UTILITY ASSEMBLER this procedu re are in the results section. C-REACTIVE PROTEIN Routine 01/08/2018 3:14 Result s for (CRP), S/P AM UTILITY ASSEMBLER this procedure are in the results section. ADULT OXYGEN THERAPY Routine 01/07/2018 2:30 PM UTILITY ASSEMBLER [place] FLUORO LESS THAN RAD - Routine 01/07/2018 2:15 Resu lts for 1 HOUR (most inpatients PM UTILITY ASSEMBLER this proced ure and all are in the outpatients) results section. DECOMPRESSION SPINE 01/07/2018 Stenosis Spinal - POSTERIOR LUMBAR 11:40 AM UTILITY ASSEMBLER Lumbar With Neurogenic Claudication documented in this encounter Results DX Lumbar Spine 2-3 Views (03/27/2018 1:40 PM UTILITY ASSEMBLER) Anatomical Region Laterality Modality Lumbar Spine, Musculoskeletal RST LOS, Neuroradiology N/A Digital Radiography ARZ LOS, Muskuloskeletal FLA LOS Specimen (Source) Anatomical Collection Method Collection Time Re ceived Time Location / / Volume Laterality 03/27/2018 1:46 PM UTILITY ASSEMBLER Impressions 03/27/2018 1:48 PM UTILITY ASSEMBLER IMPRESSION: ??Partial L5-S1 laminectomy on the left. Narrowed lumbosacral interspace with facet arthritis. Mild de generative change left hip with some prominence at the femoral head/neck offs et. Narrative 03/27/2018 1:48 PM UTILITY ASSEMBLER EXAM: ??DX LUMBAR SPINE 2-3 VIEWS Procedure [...] Bridger Caldwell M.D. IMG DIAGNOSTIC IMAGING PROCE DURES CRP (C-Reactive Protein) (01/08/2018 3:14 AM UTILITY ASSEMBLER) P athologist Signature C-Reactive 4.5 <=8.0 mg/L 01/08/2018 [facility] Protein (CRP), 4:44 AM UTILITY ASSEMBLER [facility] - [facility] Specimen Anatomical Collection Method Collection Time Receive d Time (Source) Location / / Volume Laterality Blood (Blood, 01/08/2018 3:14 AM 01/09/20 18 4:08 Venous) UTILITY ASSEMBLER AM UTILITY ASSEMBLER Billy Mercado M.D. LAB BLOOD ADD-ON Performing Organization Address City/[facility] Phon e Number [facility] - [address] [phone] [address] [facility] Sedimentation Rate (01/08/2018 3:14 AM UTILITY ASSEMBLER) [facility] Method Time Signature Sedimentation 7 0 - 29 01/08/2018 [facility] Rate, B mm/1 h 5:14 AM UTILITY ASSEMBLER [facility] - [facility] Specimen Anatomical Collection Method Collection Time Receive d Time (Source) Location / / Volume Laterality Blood (Blood, 01/08/2018 3:14 AM 01/09/20 18 4:04 Venous) UTILITY ASSEMBLER AM UTILITY ASSEMBLER Billy Mercado M.D. LAB BLOOD ADD-ON Performing Organization Address City/State/[facility] Phon e Number [facility] - [address] [address] [facility] (ABNORMAL) CBC without Differential (01/08/2018 3:14 AM UTILITY ASSEMBLER) [facility] Method Time Signature Hemoglobin 11.8 11.6 - 01/08/2018 [facility] 15.0 g/dL 4:16 AM UTILITY ASSEMBLER [facility] Hematocrit 35.7 35.5 - 01/08/2018 [facility] 44.9 % 4:16 AM UTILITY ASSEMBLER [facility] Erythrocytes 4.07 3.92 - 01/08/2018 [facility] 5.13 4:16 AM UTILITY ASSEMBLER LABORATORIES - x10(12)/L [facility] MCV 87.7 78.2 - 01/08/2018 [facility] 97.9 fL 4:16 AM UTILITY ASSEMBLER [facility] RBC Distrib 11.6 (L) 12.2 - 01/08/2018 [facility] Width 16.1 % 4:16 AM UTILITY ASSEMBLER [facility] Platelet Count 226 157 - 371 01/08/2018 [facility] x10(9)/L 4:16 AM UTILITY ASSEMBLER [facility] Leukocytes 14.6 (H) 3.4 - 9.6 01/08/2018 [facility] x10(9)/L 4:16 AM UTILITY ASSEMBLER [facility] - [facility] Specimen Anatomical Collection Method Collection Time Receive d Time (Source) Location / / Volume Laterality Blood (Blood, 01/08/2018 3:14 AM 01/09/20 18 4:08 Venous) UTILITY ASSEMBLER AM UTILITY ASSEMBLER Billy Mercado M.D. LAB BLOOD ADD-ON Performing Organization Address City/State/ZIP Code Phon e Number [facility] - [address] [place], [place] [address] [facility] [place] Fluoro Less Than 1 Hour (01/07/2018 2:15 PM UTILITY ASSEMBLER) Specimen (Source) Anatomical Location Collection Method / Collectio n Time Received Time / Laterality Volume Narrative 152 HOS LOS RST - 01/07/2018 2:15 PM UTILITY ASSEMBLER This exam does not require a radiologist review or interpretation. Please refer to the patient's medical record on this date for clinical details. Billy Mercado M.D. IMG FLUOROSCOPY PROCEDURES Performing Organization Address City/State/ZIP Code Phon e Number 152 HOS LOS RST documented in this encounter Visit Diagnoses Diagnosis Pain Low Back Chronic - Primary Degeneration Disc Lumbar Other Intervertebral Disc Displacement L umbar Region Pain Low Back Chronic Degeneration Disc Lumbar Other Intervertebral Disc Displacement L umbar Region documented in this encounter Administered Medications Inactive Administered Medications - up to 3 most recent administrations Medication Order MAR Action Action Date Dose Rate Site acetaminophen tablet 1,000 mg Given 01/07/2018 7:14 AM UTILITY ASSEMBLER 1,000 mg (TYLENOL) 1,000 mg, oral, Once, On Sun01/07/18 at 0615, For 1 dose, Pre-Op, In PreOp holding (PWA) acetaminophen tablet 1,000 mg (TYLENOL) Given 01/08/2018 8:06 AM UTILITY ASSEMBLER 1,000 mg 1,000 mg, oral, 4 times daily, First dose on Sun01/07/18 at 1700, Not to exceed 4 grams in 24 hours. Given 01/07/2018 8:04 PM UTILITY ASSEMBLER 1,000 mg Given 01/07/2018 5:42 PM UTILITY ASSEMBLER 1,000 mg buPROPion 12 hr tablet 200 mg (WELLBUTRI N SR) Given 01/08/2018 8:05 AM UTILITY ASSEMBLER 200 mg 200 mg, oral, Daily, First dose on Sun01/08/18 at 0900, Swallow whole. Do NOT crush, chew, or split tablet. ceFAZolin in dextrose (iso-os) IVPB 2 New Bag 01/08/2018 4:58 AM UTILITY ASSEMBLER 2 g 200 mL/hr g (ANCEF) 2 g, intravenous, at 200 mL/hr, Administer over 30 Minutes, Every 8 hours, First dose on Sun01/07/18 at 2000, For 2 doses, Start within 8 hours of last IV dose. premix, Drug Monitoring Program: Pharmacist to adjust medication dosing based on indication and drug clearance factors., Indications: Prophylaxis, surgical New Bag 01/07/2018 7:34 PM UTILITY ASSEMBLER 2 g 200 mL/hr fentaNYL injection 25 mcg (SUBLIMAZE) Given 01/07/2018 2:34 PM UTILITY ASSEMBLER 25 mcg 25 mcg, intravenous, Every 2 min PRN, For pain 4 or greater (maximum 100 mcg). If max dose of Fentanyl is reached and if pain is greater than 4, discontinue Fentanyl: give Hydromorphone, Starting on Sun01/07/18 at 1429, PACU (only) gabapentin capsule 300 mg (NEURONTIN) Given 01/07/2018 7:14 AM UTILITY ASSEMBLER 300 mg 300 mg, oral, Once, On Sun01/07/18 at 0615, For 1 dose, Pre-Op, preprocedure on unit with sips, Drug Monitoring Program: Pharmacist to adjust medication dosing based on indication and drug clearance factors. gabapentin capsule 300 mg (NEURONTIN) Given 01/07/2018 8:04 PM UTILITY ASSEMBLER 300 mg 300 mg, oral, Daily at bedtime, First dose on Sun01/07/18 at 2100 ibuprofen tablet 600 mg (ADVIL,MOTRIN) 600 mg, oral, Every 6 hours, First dose on Sun 8 at 1600, Start 6 hours after last ketorolac dose administered ketorolac injection 15 mg (TORADOL) Given 01/08/2018 4:58 AM UTILITY ASSEMBLER 15 mg 15 mg, intravenous, Every 6 hours, First dose on Sun01/07/18 at 1600, For 4 doses, Start no sooner than 6 hours after last intra-operative dose Adult IV push rate: Over 15 seconds. Peds IV push rate: Over 1 minute. 60 mg dose only for IM, not recommended for IV. Given 01/07/2018 10:47 PM UTILITY ASSEMBLER 15 mg Given 01/07/2018 3:57 PM UTILITY ASSEMBLER 15 mg lactated ringers New Bag 01/07/2018 3:34 PM UTILITY ASSEMBLER 100 mL/hr 100 mL/hr 100 mL/hr, intravenous, Continuous, Starting on Sun01/07/18 at 1415, PACU & Post-Op oxyCODONE IR tablet 10 mg (ROXICODONE) Given 01/08/2018 12:22 AM UTILITY ASSEMBLER 10 mg 10 mg, oral, Every 4 hours PRN, severe pain or score 7-10 of 10, or pain greater than comfort goal if other analgesics fail, Starting on Sun01/07/18 at 1532, Maximum dose of 10 mg in 4 hours. Given 01/07/2018 8:04 PM UTILITY ASSEMBLER 10 mg oxyCODONE IR tablet 5 mg (ROXICODONE) Given 01/08/2018 8:06 AM UTILITY ASSEMBLER 5 mg 5 mg, oral, Every 4 hours PRN, moderate pain or score 4-6 of 10, if other analgesics fail, Starting on Sun01/07/18 at 1532, Maximum dose of 10 mg in 4 hours sennosides-docusate sodium 8.6-50 mg per Given 01/07/2018 8:03 P M UTILITY ASSEMBLER 1 tablet tablet 1 tablet (SENOKOT-S) 1 tablet, oral, 2 times daily, First dose on Sun01/07/18 at 2100, for constipation documented in this encounter Active and Recently Administered Medications Times are shown in UTILITY ASSEMBLER. Scheduled Medication Order 01/06/2018 01/07/2018 01/08/2018 acetaminophen tablet 1,000 mg (TYLENOL) (COMPLETED) 0714 (Given - Provider: Bridgette Sandoval RTyler) 1,000 mg, oral, Once, On Sun01/07/18 at 0615, For 1 dose, Pre-Op, In PreOp holding (PWA) acetaminophen tablet 1,000 mg (TYLENOL) 1742 (Given - Provider: Salina Mercado R.N.)2004 (Given - Provider: Haile Augustine RGordonN.) 0806 (Given - Provider: Jahaira Rodriguez R.N., RN-BC) 1,000 mg, oral, 4 times daily, First dos e on Sun01/07/18 at 1700, Not to exceed 4 grams in 24 hours. buPROPion 12 hr tablet 150 mg (WELLBUTRIN SR) 08 15 (Due) 150 mg, oral, Once, Sun01/07/18 at [...] R.N.)2009 (Stopped - Provider: Haile Augustine R.N.) 457 (New Bag - Provider: Haile cherry R.N.) 2 g, intravenous, at 200 mL/hr, Administ [...] 1230 (Given - Provider: Fransisco Wright APRN, ERISA ATTORNEY, D.N.P.) 2,000 mg (rounded from 1,450 mg = 25 mg/ kg ? 58 kg Dosing weight), intravenous, Once, Sun01/07/18 at 0745, For 1 dose, Intra-Op, Preoperatively within 1 hour prior to surgical incision [place] IV pu sh over 3 minutes. Add 5 mL NS to 1 gram vial for a final concentration of 200 mg/mL., Drug Monitoring Program: Pharmacist to adjust medication dosing based on indication and drug clearance factors., Indications: Prophylaxis, surgical FLUoxetine capsule 20 mg (PROzac) 08 (Not Given - Provider: Jahaira oRdriguez R.N., RN-BC - Reason: Patient/family refused) 20 mg, oral, Daily, First dose on Sun at 0900, FLUoxetine orderable was interchanged for FLUoxetine tablet/capsule gabapentin capsule 300 mg (NEURONTIN) (COMPLETED) 713 (Given - Provider: Bridgette Sandoval RGordonNGordon) 300 mg, oral, Once, On Sun01/07/18 at 0 615, For 1 dose, Pre-Op, preprocedure on unit with sips, Drug Monitoring Program: Pharmacist to adjust medication dosing based on indication and drug clearance factors. gabapentin capsule 300 mg (NEURONTIN) 20 04 (Given - Provider: Haile Augustine RGordonNGordon) 300 mg, oral, Daily at bedtime, First dose on Sun01/07/18 at 21 00 ibuprofen tablet 600 mg (ADVIL,MOTRIN)(Linked Group 1) 600 mg, oral, Every 6 hours, First dose on Sun01/08/18 at 1600, Start 6 hours after last ketorolac dose administered ketorolac injection 15 mg (TORADOL)(Linked Group 1) 1557 (Given - Provider: Salina Mercado RTyler)2247 (Given - Provider: Haile Augustine RTyler) 0458 (Given - Provider: Haile Augustine RGordonNGordon) 15 mg, intravenous, Every 6 hours, First [...] NOKOT-S) 2002 (Given - Provider: Haile Augustine RTyler) 0807 (Not Given - Provider: Jahaira Rodriguez R.N., RN- - Reason: Patient/family refused) 1 tablet, oral, 2 times daily, First dos e on Sun01/07/18 at 2100, for constipation Continuous Medication Order 01/06/2018 01/07/2018 01/08/2018 lactated ringers 1534 (New Bag - Provider: Nahid Palma RGordonNGordon) 100 mL/hr, intravenous, Continuous, Star ting on Sun01/07/18 at 1415, PACU & Post-Op tranexamic acid 8 mg/mL in NaCl 0.9% 250 mL infusion (CYKLOK APRON) (CANCELED) 1238 (New Bag - Provider: Fransisco Wright APRN, ZAK, D.N.P.) 2 mg/kg/hr ? 58.7 kg Order-specific weight (14.675 mL/hr, rounded to 14.7 mL/hr), intravenous, at 14.7 mL/hr, Continuous, Starting 01/07/18 at 0745, Intra-Op, In OR until skin [...] Once in surgery, OR use only, Starting Sun01/07/18 at 0739, For 1 dose, Intra-Op [...] (CANCELED) 1434 (Given - Provider: Francoise Hoover RTyler) 25 mcg, intravenous, Every 2 min PRN, [...] 10,000 units of Thrombin) As needed, Starting Sun01/07/18 at 1335, Intra-Op magnesium hydroxide suspension 30 mL (MILK OF MAGNESIA) 30 mL, oral, Daily PRN, constipation, St arting Sun01/07/18 at 1532, Give if no bowel movement by post-operative day 3. methylPREDNISolone acetate injection (DEPO-Medrol) (CANCELED ) 1355 (Given - Provider: Matthias Mtz M.D.) As needed, Starting Sun01/07/18 at 1355, Intra-Op naloxone injection 0.2 mg (NARCAN) 0.2 mg, intravenous, As needed, respirat ory depression, Starting Sun01/07/18 at 1532, For respiratory rate less than 8 breaths per minute or RASS score of -3, -4, -5. Apply oxygen to keep oxygen saturations greater than 90% and notify service. oxyCODONE IR tablet 10 mg (ROXICODONE) 2 004 (Given - Provider: Haile Augustine RTyler) 0022 (Given - Provider: Haile Augustine R.N.) [...] in surgery, O R use only, Starting Sun01/07/18 at 0739, For 1 dose, Intra-Op tiZANidine tablet 2 mg (ZANAFLEX) 2 mg, oral, Every 8 hours PRN, muscle spasms, Starting 01/07 at 1601 tranexamic acid 600 mg in NaCl 0.9% IVPB (COMPLETED) 1223 (New Bag - Provider: Fransisco Wright APRN, ERISA ATTORNEY, D.N.P.) 600 mg (rounded from 587 mg = 10 mg/kg ? 58.7 kg Order-specific weight), intravenous, at 168 mL/hr, Administer over 20 Minutes, Once in surgery, OR use only, Starting Sun01/07/18 at 0739, For 1 dose , Intra-Op vancomycin powder 1 g (COMPLETED) 1355 ( Given - Provider: Matthias Mtz M.D.) 1 g (1 vial), topical, Once in surgery, OR use only, Starting Sun01/07/18 at 0739, For 1 dose, Intra-Op, [...] documented as of this encounter Care Teams Coupon And Bond Collection Clerk Relationship Specialty Start Date End Date Kandi Alberts, TATY, C.N.P. PCP - General 07/27/16 07/10/[address] [phone] documented as of this encounter
--- OUTSIDE RECORDS SUMMARY | 2021-11-28 09:16 | XMS_ITS | Encounter Summary ---
:[address] [facility] Address [address] [place] [address] Care Team Providers Name Role Phone Kandi Alberts APRN C.N.P. Primary Care Provider [phone] Reason for Visit Reason Onset Date Comments Move appt on 11-28 to afternoon? 11/21/2017 Encounter Details Date Type Department Care Team Description 11/21/2017 Clinical Communication Department of Zeina Mtzt on 11-28 Orthopedic Surgery Matthias Higgins M.D. to afternoon? in [place], [address] [place] [address] [address] [facility] [address] [place], [place] [phone] (Work) [phone] Social History Tobacco Use Types Packs/Day Years [...] 11/27/2019 relatives? How often do you attend episcopal or anglican Never 01/31/2019 services? Do you belong to any clubs or organizations such as No 01/31/2019 episcopal groups, unions, fraternal or athletic groups, or [...] to pay for the very basics like [employer] hat hard 11/27/2019 food, housing, medical care, [...] at Date Recorded Female 01/11/2018 2:20 PM TRANSITIONAL STUDIES INSTRUCTOR documented as of this encounter Miscellaneous Notes Telephone Encounter - Aster Correa APRN, DAVID, M.S. - 11/21/2017 4:23 PM CDT Bibi has to leave at 2pm, so we cannot see later. OK to see before EMG completed. Telephone Encounter - Adela Allison - 11/21/2017 2:49 PM CDT Yessi from [facility] calls stating the first available EMG is not until 11-28 at 1:15pm (90min appt), and she is stating Dr. Mtz is going to want the result the MRI and EMG before he sees on 11-28. The patient is currently scheduled at 10am for consult with Dr. Mtz, so they are wondering if Dr. Mtz would be willing to see this patient in the afternoon of 11-28 after her EMG at 1:15pm? Please review his afternoon schedule on 11-28 and if it that would be okay, or if it would be okay to leave it as is with the EMG after Dr. Mtz sees? Thank-you, documented in this encounter Plan of Treatment Not on filedocumented as of this encounter Visit Diagnoses Not on filedocumented in this encounter Additional Health Concerns Assessment Noted Time PHQ-9 Depression Total Score: 15 09/28/2017 3:51 PM CD T documented as of this encounter Care Teams Laundry Operator Finishing Relationship Specialty Start Date End Date Kandi Alberts, TATY, C.N.P. PCP - General 07/27/16 07/10/18 [address] [place] [address] documented as of this encounter
--- OUTSIDE RECORDS SUMMARY | 2021-11-28 09:16 | XMS_ITS | Encounter Summary ---
:1985 Author Organization [facility] Address [address] [place] [address] Care Team Providers Name Role Phone Kandi Alberts APRN CGordonNGordonPGordon Primary Care Provider [phone] Reason for Referral MRI/CAT/PET Scan (Routine) - Closed Specialty Diagnoses / Procedures Referred By Contact Refer red To Contact Radiology Diagnoses Radiculopathy Lum[facility] Lumbar Spine without IV Contrast [place] MRI LUMB SPINE [facility] MRI LUMB SPINE [facility] [address] [place] [address] Referral ID Status Reason Start Date Expiration Date Visits Requ ested Visits Authorized [id number] Closed 11/21/2017 11/21/2018 1 1 Reason for Visit MRI/CAT/PET Scan (Routine) - Closed Specialty Diagnoses / Procedures Referred By Contact Refer red To Contact Radiology Diagnoses Radiculopathy Lumbar [facility]enny [facility] Procedures MR Lumbar Spine without IV Contrast [place] MRI LUMB SPINE [facility] MRI LUMB SPINE WO [facility] [address] [place] [address] Referral ID Status Reason Start Date Expiration Date Visits Requ ested Visits Authorized [id number] Closed 11/21/2017 11/21/2018 1 1 Encounter Details Date Type Department Care Team Description 11/22/2017 Hospital Encounter Department of Helen Zapata Lumbar Radiology, Anthony Bill, in [facility] [place], [address] [place], [place] 200 [facility] [[email or web address] [id number] [place], [place] [phone] (Work) [phone] Social History Tobacco Use Types Packs/Day Years [...] How often do you attend faith or alevism Never 01/31/2019 services? 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/2018 2:20 PM QUALITY IMPROVEMENT COORDINATOR documented as of this encounter Medications at [...] nts MR LUMBAR SPINE RAD - Routine 11/22/2017 2:05 Radiculopathy Lumbar Results for this WITHOUT IV (most inpatients PM CDT procedure a re in CONTRAST and all the results outpatients) section. documented in this encounter Results MR Lumbar Spine without IV Contrast (11/22/2017 [...] spine 03/01/2016. FINDINGS: Allowing for differences in electrocardiograph technician nique and patient position, no significant [...] spine 03/01/2016. FINDINGS: Allowing for differences in electrocardiograph technician nique and patient position, no significant [...] documented as of this encounter Care Teams [place] Relationship Specialty Start Date End Date Kandi Alberts, TATY, C.N.P. PCP - General 07/27/16 07/10/[address] [address] documented as of this encounter
[2021-11-28 09:17] VITALS: BP 120/78; PULSE 87; O2SAT 100
[2021-11-28 09:17] LABS: Aspartate Amino Transferase* 21 U/L (12-35); Bilirubin Total* 0.3 mg/dL (0.1-1.5); Total Protein* 7.1 g/dL (6.0-8.3)
--- OUTSIDE RECORDS SUMMARY | 2021-11-28 09:17 | XMS_ITS | Encounter Summary ---
:1985 Author Organization [facility] Address [address] [place] [address] Care Team Providers Name Role Phone Unavailable Primary Care Provider Unavailable Encounter Details Date Type Department Care Team Description 01/20/2015 Hospital Encounter HX [facility] Michelle Alberts, TATY, C.N.P. [address] [place] [address] (Wo rk) Social History Tobacco Use Types Packs/Day Years Used Date Smoking Tobacco: Never Assessed Alcohol Habits Answer Date Recorded How often [...] 11/27/2019 relatives? How often do you attend yarsani or zoroastrian Never 01/31/2019 services? Do you belong to any clubs or organizations such as No 01/31/2019 yarsani groups, unions, fraternal or athletic groups, or [...] at Date Recorded Female 01/11/2018 2:20 PM MINER OPERATOR documented as of this encounter Last Filed Vital Signs Vital Sign Reading Time Taken Comments Blood Pressure 112/74 01/20/2015 2:27 PM MINER OPERATOR Pulse 68 01/20/2015 2:27 PM MINER OPERATOR Temperature - - Respiratory Rate 20 01/20/2015 2:27 PM MINER OPERATOR Oxygen Saturation - - Inhaled Oxygen Concentration - - Weight 64.5 kg (142 lb 3.2 oz) 01/20/2015 2:27 PM MINER OPERATOR Height 162 cm (5' 3.78) 01/20/2015 2:27 PM MINER OPERATOR Body Mass Index 24.58 01/20/2015 2:27 PM MINER OPERATOR documented in this encounter Progress Notes Michael Alberts, TATY, CGordonNGordonP. - 01/20/2015 2:40 PM CST Clinic Full Note CHIEF COMPLAINT/REASON FOR VISIT follow up lab results. Declined flu shot. Having lower back pain. HISTORY OF PRESENT ILLNESS Wendi is here for depression recheck. She started Effexor XR 75 mg daily. She states she made an appointment to see a mental health therapist and overslept and missed the appointment. She has not rescheduled. Her PHQ-9 score today was 19. We discussed increasing her Effexor to 150 mg daily. Also stressed the importance of rescheduling the mental health therapy appointment. Advised to schedule in theafternoon so no chance of missing it again. She has chronic low back pain. She is on gabapentin. Shemissed her last physical therapy appointment. She plans to reschedule. The gabapentin has helped with her discomfort. MEDICATIONS Anaprox-DS 550 mg oral tablet, 550 mg, 1 tab(s), PO, 3xDay, PRN, 2 refills gabapentin 300 mg oral capsule, 300 mg, 1 cap(s), PO, Daily venlafaxine 75 mg oral capsule, extended release, 75 mg, 1 cap(s), PO, Daily, 11 refills ALLERGIES morphine (Swelling Face) PAST MEDICAL HISTORY Chronic Depressive psychosis, recurrent episodes Pain Low Back (LBP) Chronic state, other Historical Abnormal Pap smear of cervix with low-grade squamous intraepithelial lesion Previous Section, Antepartum Condition or Complication PROCEDURES/SURGICAL HISTORY Colposcopy (01/28/2009), Culture, chlamydia, any source.. (12/23/2008), Cytopathology, cervical or vaginal (any reporting system), collected in preservative fluid, automated thin layer preparation; manual screening under physician supervision.. (12/23/2008), Lipid panel This panel must include the following: Cholesterol, serum, total (69703) Lipoprotein, direct measurement, high density cholesterol (HDL cholesterol) (53421) Triglycerides (97513). (09/05/2007), section - at term (2007), D&C - Dilatation and curettage (07/28/2003). SOCIAL HISTORY Date Time: 01/20/2015 14:27 Tobacco: Smoking Status: Never smoker Exposure: Other: Never Alcohol: Use: No Results Found Recreational Drugs: Use: No Results Found Type: No Results Found FAMILY HISTORY Mother:Positive: Diabetes mellitus; Hyperlipidemia Father:Positive: COPD Sister:Positive: Healthy adult HEALTH MAINTENANCE Flu shot declined. SYSTEMS REVIEW Positive for that mentioned in the History of Present Illness and Past Medical History. All other systems were reviewed and were negative. VITAL SIGNS T: 36.8 ??C (Core) HR: 68 RR: 20 BP: 112 / 74 HT: 162 cm WT: 64.5 kg BMI: 24.58 PHYSICAL EXAMINATION GENERAL: Well-developed, well-nourished, in no acute distress. SKIN: Warm and dry. HEENT: TMs clear. Throat clear. NECK: Supple. No lymphadenopathy or thyromegaly. HEART: Regular rate and rhythm. S1, S2. No murmur. LUNGS: Clear to auscultation. No wheezes or rales. ABDOMEN: Soft, nontender. No hepatosplenomegaly. EXTREMITIES: Warm, dry. No peripheral edema. SPINE: Normal range of motion of the lumbar spine. Tenderness over the lumbosacral paraspinal musculature bilaterally. Straight leg raising negative bilaterally. Normal sensation in the toes. Heel-toewalk normal. MENTAL STATUS: Eye contact normal. Speech clear and fluent. Normal rate and volume. Affect expressive. Insight and judgement intact. No suicidality. IMPRESSION/REPORT/PLAN Depressive psychosis, recurrent episodes Increase Effexor XR to 150 mg daily. Attend mental health therapy appointment. Recheck in 2 months,sooner if symptoms are worsening. Ordered: OV Est Pt Level 4 - 74101 - 25 min Pain Low Back (LBP) Chronic Stable on gabapentin. Continue PT. Ordered: OV Est Pt Level 4 - 13789 - 25 min Orders: venlafaxine, 150 mg = 1 cap(s), PO, Daily, do not crush or chew with food, # 30 cap(s), 11 Refill(s), Maintenance, Pharmacy: [id number], Does not need refill today. Return Visit [facility] 30 Min Electronically Signed By: MICHAEL ALBERTS CNP On: 01/20/2015 02:48 PM Source: [facility] Opti-LogicCHART Document Id: [id number] R OPERATOR documented in this encounter Nursing Notes Michael Alberts APRN C.N.P. - 01/20/2015 2:36 PM CST Ambulatory Patient Education The following Patient Education Materials have been given to the patient: Patient Education Materials: Mental Health Using Antidepressants Mental Health Using Antidepressants Depression is a mood disorder that affects the way you think and feel. The most common symptom is a feeling of deep sadness. This feeling does not go away or improve on its own. But most types of depression can be helped with therapy and antidepressant medications. (Note: This covers antidepressant use in adults only.) What Do Antidepressants Do? Antidepressants restore the balance of certain chemicals in your brain to help ease your depression.You will likely feel better in 4-6 weeks. But you may continue taking antidepressants for a year or more to keep your symptoms from coming back. Some people with depression need to take antidepressantsfor life. There are several types of antidepressants. The main types are described below. Selective Serotonin Reuptake Inhibitors (SSRIs) SSRIs are the most effective medications for the treatment of depression. They tend to have fewer side effects than other antidepressants. Possible side effects include anxiety, trouble sleeping, nausea, diarrhea, and headaches. In rare cases, they may make you more depressed. SSRIs shouldnt be mixed with certain other medications. Talk with your healthcare provider about all the medications, herbs, and supplements you are taking. Tricyclic Antidepressants Tricyclics help severe or long-term depression. They have been used for many years with good results. Possible side effects include blurred vision, dry mouth, and constipation. Monoamine Oxidase Inhibitors (MAOIs) If you do not respond to tricyclics or SSRIs, your healthcare provider may prescribe MAOIs. These medications can be very effective. But persons taking MAOIs must avoid certain foods and medications. Your doctor can tell you more. [employer] If you have bipolar disorder, you may take a medication called lithium. This medication helps even out your mood. Possible side effects are weight gain, trembling, and nausea. If You Are Taking MAOIs, Avoid: Beans Aged cheese Chocolate Red wine Most cold medications Certain medications (ask your doctor) To Reduce the Risk of [employer] Poisoning: Take only the prescribed amount of lithium. Drink plenty offluids other than coffee, tea, and soda. Limit salt in your diet. If You Have Side Effects The side effects of antidepressants are usually mild. But if you have troubling side effects, call your doctor. Changing the dosage or type of medication may help. Never stop taking medications on yourown. ?? [phone] [facility], [address] [place] [address], [place] [address]. All rights reserved. This information is not intended as a substitute for professional medical care. Always follow your healthcare professional's instructions. This document has images extracted. Please consider using Doodle Mobile for all your patient education needs. Source: [facility] POWERCHART Document Id: [id number] R OPERATOR documented in this encounter Miscellaneous Notes Miscellaneous - Thais Yi L.P.N. - 01/20/2015 2:44 PM CST PHQ-9 PHQ-9 Entered On: 01/20/2015 14:44 MINER OPERATOR Performed On: 01/20/2015 14:44 MINER OPERATOR by THAIS YI LPN PHQ-9 Little interest or pleasure in doing things : Nearly every day Feeling down, depressed, or hopeless : Several days Trouble falling or staying asleep, or sleeping too much : Nearly every day Feeling tired or having little energy : Nearly every day Poor appetite or overeating : Nearly every day Feeling bad about yourself or that you are a failure : Several days Trouble concentrating on things : Nearly every day Moving or speaking slowly; restless or fidgety : More than half the days Thoughts that you would be better off /hurting self : Not at all PHQ-9 Calculated Score : 19 Problems make work, home, or dealing with others : Extremely difficult THAIS YI LPN - 01/20/2015 14:44 MINER OPERATOR Source: [facility] POWERCHART Document Id: [id number] MINER OPERATOR!13 R OPERATOR Miscellaneous - Michael Alberts APRN, C.N.P. - 01/20/2015 2:36 PM CST Ambulatory Patient Summary [address] [place], [place] [id number] Visit Information Name: WENDI ALEXANDER [facility] Number: [id number] Current Date: 01/20/2015 14:36:08 Physicians Attending Provider: MICHAEL ALBERTS CNP Primary Care Provider: MICHAEL ALBERTS CNP WENDI ALEXANDER has been given the following list of follow-up instructions, medication list, and patient education materials: Follow-up Instructions Your Medications Here is a list of your medications. It is important to take your medications as directed. Use a pillbox or chart to help remind you to take your medications. Please let your doctor or nurse know if you have problems taking your medications. Medication/Strength How to Take Indications/Special Instructions/Comments/Notes for Patient Medication Changes/Routing gabapentin (gabapentin 300 mg oral capsule) 1 cap, Oral, once a day naproxen (Anaprox-DS 550 mg oral tablet) 1 Tablet(s), Oral, three times a day as needed for pain venlafaxine (venlafaxine 150 mg oral capsule, extended release) 1 cap, Oral, once a day do not crushor chew with food This is a CHANGE Routed to [address] [address] Stop Taking the Following Medications: Medication list as of 01-20-15 14:36 Attention: If you have any medications at home that are not on this list, DO NOT take them until youcontact your provider for clarification. Give a copy of your medication list to your primary care provider. Update your medication list any time medications or doses are changed and carry your medication list at all times in case of emergency. Electronically Signed By: MICHAEL ALBERTS CNP Signed On:20-JAN-2015 14:35:37 Your Allergies & Intolerances Substance Reaction Symptoms Category Comments morphine Swelling Face Drug Your Problem List Problem Status Onset Comments Depressive psychosis, recurrent episodes Active Pain Low Back (LBP) Chronic Active Your Upcoming Appointments Date Time Location Provider No Appointments found Attention: Contact your local Clinic if further appointment detail needed. Using Antidepressants Depression is a mood disorder that affects the way you think and feel. The most common symptom is a feeling of deep sadness. This feeling does not go away or improve on its own. But most types of depression can be helped with therapy and antidepressant medications. (Note: This covers antidepressant use in adults only.) What Do Antidepressants Do? Antidepressants restore the balance of certain chemicals in your brain to help ease your depression.You will likely feel better in 4--6 weeks. But you may continue taking antidepressants for a year ormore to keep your symptoms from coming back. Some people with depression need to take antidepressants for life. There are several types of antidepressants. The main types are described below. Selective Serotonin Reuptake Inhibitors (SSRIs) SSRIs are the most effective medications for the treatment of depression. They tend to have fewer side effects than other antidepressants. Possible side effects include anxiety, trouble sleeping, nausea, diarrhea, and headaches. In rare cases, they may make you more depressed. SSRIs shouldnt be mixed with certain other medications. Talk with your healthcare provider about all the medications, herbs, and supplements you are taking. Tricyclic Antidepressants Tricyclics help severe or long-term depression. They have been used for many years with good results. Possible side effects include blurred vision, dry mouth, and constipation. Monoamine Oxidase Inhibitors (MAOIs) If you do not respond to tricyclics or SSRIs, your healthcare provider may prescribe MAOIs. These medications can be very effective. But persons taking MAOIs must avoid certain foods and medications. Your doctor can tell you more. [employer] If you have bipolar disorder, you may take a medication called lithium. This medication helps even out your mood. Possible side effects are weight gain, trembling, and nausea. If You Are Taking MAOIs, Avoid: Beans Aged cheese Chocolate Red wine Most cold medications Certain medications (ask your doctor) To Reduce the Risk of [employer] Poisoning: Take only the prescribed amount of lithium. Drink plenty offluids other than coffee, tea, and soda. Limit salt in your diet. If You Have Side Effects The side effects of antidepressants are usually mild. But if you have troubling side effects, call your doctor. Changing the dosage or type of medication may help. Never stop taking medications on yourown. ?? [phone] [facility], [address] [place] [address]. All rights reserved. This information is not intended as a substitute for professional medical care. Always follow your healthcare professional's instructions. Consider Using Patient Online Services Patient Online Services is a secure online and Mobile application that lets you: ?? View lab and test results ?? View portions of your medical record including clinical notes, immunizations and discharge summaries ?? Request an appointment or medication refill ?? Review your appointment schedule ?? Send secure messages to your care team Its easy to create an account if you dont have one. Go to [facility] [employer]/onlineservices and click on Create Your Account. Then, follow the directions to complete the online form. Youll be asked for your [facility] number which you can find at the top of this document. Your Goals/Additional instructions: This document has images extracted. Please consider using Doodle Mobile for all your patient education needs. Source: [facility] POWERCHART Document Id: [id number] R OPERATOR Miscellaneous - Michael Alberts APRN, C.N.P. - 01/20/2015 2:36 PM CST Ambulatory Discharge Medication List [address] [id number] Visit Information Name: CATHERINEWENDI [facility] Number: [id number] Visit Date: 01/20/2015 14:36:07 Attending Provider: MICHAEL ALBERTS CNP Primary Care Provider: MICHAEL ALBERTS CNP WENDI ALEXANDER has been given the following list of medications: Your Medications It is important to take your medications as directed. Use a pill box or chart to help remind you to take your medications. Please let your doctor or nurse know if you have problems taking your medications. Medication/Strength How to Take Indications/Special Instructions/Comments/Notes for Patient Medication Changes/Routing gabapentin (gabapentin 300 mg oral capsule) 1 cap, Oral, once a day naproxen (Anaprox-DS 550 mg oral tablet) 1 Tablet(s), Oral, three times a day as needed for pain venlafaxine (venlafaxine 150 mg oral capsule, extended release) 1 cap, Oral, once a day do not crushor chew with food This is [place] [address] Stop Taking the Following Medications: Medication list as of 01-20-15 14:36 Attention: If you have any medications at home that are not on this list, DO NOT take them until youcontact your provider for clarification. Give a copy of your medication list to your primary care provider. Update your medication list any time medications or doses are changed and carry your medication list at all times in case of emergency. Electronically Signed By: MICHAEL ALBERTS SENIOR SOFTWARE ENGINEERING MANAGER Signed On:20-JAN-2015 14:35:37 Additional Information: Source: [facility] POWERCHART Document Id: [id number] R OPERATOR Miscellaneous - Thais Yi L.PGordonN. - 01/20/2015 2:27 PM CST Adult Sous Chef Intake/History Adult Sous Chef Intake/History Entered On: 01/20/2015 14:29 MINER OPERATOR Performed On: 01/20/2015 14:27 MINER OPERATOR by THAIS YI LPN Intake Chief Complaint : follow up lab results. Declined flu shot. Having lower back pain. Temperature Core : 36.8 DegC(Converted to: 98.2 DegF) Peripheral Pulse Rate : 68 /min Respiratory Rate : 20 /min Heart Rhythm : Regular Systolic Blood Pressure : 112 mmHg Diastolic Blood Pressure : 74 mmHg NIBP Mean : 87 mmHg BP Location : Right upper extremity Blood Pressure Cuff Size : Regular Height : 162 cm(Converted to: 5 ft 4 inch(es), 64 inch(es)) Actual Weight : 64.5 kg(Converted to: 142 lb 3 oz) Weight Source : Standing scale Dosing Weight Clinic : 64.5 kg Clinic BSA : 1.7 Body Mass Index : 24.58 kg/m2 CALETHAIS Ortega MICK - 01/20/2015 14:27 MINER OPERATOR General Info Information Given By : Patient Preferred Communication Mode : Verbal Languages : Greenlandic Is Patient Female and 13-50 no hysterectomy : Yes Status : Patient denies Are you ? : No KDTHAIS MICK - 01/20/2015 14:27 MINER OPERATOR Subjective Pain Symptoms : Yes KDELDONTHAIS ANGELA LPN - 01/20/2015 14:27 MINER OPERATOR Pain Scale Pain Scale Verbal 0-10 : Open THAIS YI MICK - 01/20/2015 14:27 MINER OPERATOR Pain Pain Assessment Grid Pain 1 Location : Lower back Intensity : 10 Time Pattern : Constant LAMINEMAXIMINOTHAIS Ortega ANGELA BARTON - 01/20/2015 14:27 MINER OPERATOR Dependent Habits Exposure to Tobacco Smoke : Other: Never Smoking Status : Never smoker Tobacco 2A : No KDELDONTHAISBERNARDINO MILLER LPN - 01/20/2015 14:27 MINER OPERATOR Caffeine Use Grid Caffeine Use : Current Type : Energy drinks Frequency : Weekly Amount : 1 ELDON YIBERNARDINO MILLER LPN - 01/20/2015 14:27 MINER OPERATOR Source: [employer] Document Id: [id number] MINER OPERATOR!45 R OPERATOR documented in this encounter Plan of Treatment Not on filedocumented as of this encounter Visit Diagnoses Not on filedocumented in this encounter Additional Health Concerns Assessment Noted Time PHQ-9 Depression Total Score: 19 01/20/2015 2:44 PM CS T documented as of this encounter
--- OUTSIDE RECORDS SUMMARY | 2021-11-28 09:17 | XMS_ITS | Encounter Summary ---
:1985 Author Organization [facility] Address [address] [place] [address] Care Team Providers Name Role Phone Unavailable Primary Care Provider Unavailable Encounter Details Date Type Department Care Team Description 03/26/2012 Hospital Encounter HX NO MAPPING Jef Casiano Jr., M.D. [address] [place], [place] [phone] (Wo rk) Social History Tobacco Use Types [...] How often do you attend islam or church Never 01/31/2019 services? 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/2018 2:20 PM CASTER OPERATOR documented as of this encounter Plan of Treatment Not on filedocumented as of this encounter Visit Diagnoses Not on filedocumented in this encounter Additional Health Concerns Assessment Noted Time PHQ-9 Depression Total Score: 18 06/21/2009 11:24 AM C DT documented as of this encounter
--- OUTSIDE RECORDS SUMMARY | 2021-11-28 09:17 | XMS_ITS | Encounter Summary ---
:1985 Author Organization [facility] Address [address] [place] [address] Care Team Providers Name Role Phone Unavailable Primary Care Provider Unavailable Encounter Details Date Type Department Care Team Description 12/25/2014 Hospital Encounter [facility]X [facility] Michael Alberts A PRN, C.N.P. [address] [place], [place] [phone] (Wo rk) Social History [...] 11/27/2019 relatives? How often do you attend gnosticism or quaker Never 01/31/2019 services? 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 - 12/28/2014 8:08 AM CST Normal Results Letter 28 December 2014 WENDI ALEXANDER [id number] [facility] [place] [id number] Dear WENDI ALEXANDER, I am pleased to report that your results from the following diagnostic test(s) are stablel. Please follow up with us as we discussed during your visit or sooner if you have any concerns. If you have questions or concerns, please do not hesitate to call our office. Result Name Current Result Previous Result Normal Range Sodium Lvl (mmol/L) 142 12/25/2014 135 - 145 Potassium Lvl (mmol/L) 4.3 12/25/2014 3.6 - 5.2 Chloride (mmol/L) 102 12/25/2014 98 - 107 CO2 (mmol/L) 27 12/25/2014 22 - 29 Alkaline Phosphatase (unit/L) 61 12/25/2014 37 - 98 Glucose Fasting (mg/dL) (H) 109 12/25/2014 70 - 99 Creatinine (mg/dL) 0.6 12/25/2014 0.6 - 1.1 EGFR (MDRD) (mL/min/1.73m2) >60 12/25/2014 >=60 - EGFR (MDRD) (mL/min/1.73m2) >60 12/25/2014 >=60 - BUN (mg/dL) 10 12/25/2014 6 - 21 Calcium Lvl (mg/dL) 9.5 12/25/2014 8.0 - 10.3 Protein Total (G/DL) 7.4 12/25/2014 6.3 - 7.9 Albumin Lvl (G/DL) 4.8 12/25/2014 3.2 - 5.2 AST (unit/L) 20 12/25/2014 8 - 43 ALT (unit/L) 22 12/25/2014 7 - 45 Bili Total (mg/dL) 0.2 12/25/2014 0.1 - 1.0 Cholesterol (mg/dL) (H) 202 12/25/2014 - <=199 3Trig (mg/dL) (H) 169 12/25/2014 - <=149 HDL (mg/dL) (L) 49 12/25/2014 >=50 - LDL Calculated (mg/dL) 119 12/25/2014 - <=129 Chol/HDL Ratio 4.12 12/25/2014 LDL/HDL 2 12/25/2014 TSH (mIU/L) 1.58 12/25/2014 0.27 - 4.20 Hgb (g/dL) 13.3 12/25/2014 13.2 08/14/2013 12.0 - 15.5 Hct (%) 39.7 12/25/2014 39.3 08/14/2013 34.9 - 44.5 WBC (x10(9)/L) 4.6 12/25/2014 8.2 08/14/2013 3.4 - 10.5 RBC (x10(12)/L) 4.52 12/25/2014 4.50 08/14/2013 3.90 - 5.03 MCV (fL) 87.8 12/25/2014 87.3 08/14/2013 82.0 - 98.0 RDW (%) 12.3 12/25/2014 12.6 08/14/2013 11.9 - 15.5 Platelet (x10(9)/L) 222 12/25/2014 225 08/14/2013 150 - 450 Sincerely, MICHAEL ALBERTS [address] [place] [address] Electronic Signature Electronically Signed By: MICHAEL ALBERTS [facility] On: 28 December 2014 This document has images extracted. Source: [facility] POWERCHART Document Id: [id number] Electronically signed by [facility]omal [facility] Maintenance Department Technician [id number] at 07/10/2016 7:24 AM CDT documented in this encounter Plan of Treatment Not on filedocumented as of this encounter Procedures Procedure Name Priority Date/Time Associated Diagnosis Comme nts LIPID PANEL, S Routine 12/25/2014 10:12 AM Result s for this METER READER INSPECTOR procedure are i n the results section. CBC WITHOUT Routine 12/25/2014 10:12 AM Results for this DIFFERENTIAL, B METER READER INSPECTOR procedure ar e in the results section. THYROID-STIMULATING Routine 12/25/2014 10:12 AM R esults for this HORMONE-SENSITIVE METER READER INSPECTOR procedure are in (S-TSH) the results section. documented in this encounter Results CBC without Differential (12/25/2014 10:12 AM METER READER INSPECTOR) athologist Signature Leukocytes 4.6 3.4 - 10.5 POWERCHART X109L Erythrocytes 4.52 3.90 - 5.03 POWERCHART [id number] Hemoglobin 13.3 12.0 - 15.5 POWERCHART GDL Hematocrit 39.7 34.9 - 44.5 POWERCHART MCV 87.8 82.0 - 98.0 POWERCHART FL Platelet Count 222 150 - 450 POWERCHART X109L HX RDW 12.3 11.9 - 15.5 POWERCHART Specimen (Source) Anatomical Collection Method Collection Time Re ceived Time Location / / Volume Laterality Blood 12/25/2014 10:12 AM METER READER INSPECTOR Michael Alberts APRN, C.N.P. LAB BLOOD ADD-ON Performing Organization Address City/State/ZIP Code Phon e Number POWERCHART Thyroid-Stimulating Hormone-Sensitive (s-TSH) (12/25/2014 10:12 AM METER READER INSPECTOR) athologist Signature TSH 1.58 0.27 - 4.20 POWERCHART (Thyrotropin) MIUL Specimen (Source) Anatomical Collection Method Collection Time Re ceived Time Location / / Volume Laterality Blood 12/25/2014 10:12 AM METER READER INSPECTOR Michael Alberts APRN, C.N.P. LAB BLOOD ADD-ON Performing Organization Address City/State/ZIP Code Phon e Number POWERCHART (ABNORMAL) Lipid Panel (12/25/2014 10:12 AM METER READER INSPECTOR) athologist Signature Calculated LDL 119 <=129 MGDL POWERCHART Comment: 2014 National Lipid Association recommen dations for LDL-C in adults ages 18 and up: Desirable <100 mg/dL Above desirable 100-129 mg/dL Borderline high 130-159 mg/dL High 160-189 mg/dL Very High 190 mg/dL 2014 National Lipid Association recommen dations for LDL-C in children ages 2 to 17. Acceptable <110 mg/dL Borderline High 110-129mg/dL High 130 mg/dL LDL-C >190mg/dL: The markedly elevated LDL level is suggestive of a genetic condition such as familial hypercholesterolemia(FH) or familial defective apolipoprotein B-100 (FDB). Molecular genetic t esting for FH and FDB is available lisbeth ramirez [facility]: FH/ADH Genetic Reflex Kaur el (test ADHP). Acquired (non-genetic) causes of markedly increased LDL cholesterol include cholestatic liver disease due to the presence of LpX. If a genetic form of hypercholesterolemia is suspected, family studies including biochemical testing fo r lipids (total cholesterol,triglycerides, LDL cholesterol and HDL cholesterol) are recommended. ??Please contact the laboratory at or the on-line test catalog at [facility] for information about how to order these artur ts or to speak with a genetic counselor. Further interpretation would require clinical information. Total Cholesterol/HDL Ratio 4.12 PO WERCHART Cholesterol, Total 202 (H) <=199 MGDL POWERCHART Comment: 2014 National Lipid Association recommen dations for Total Cholesterol in adults ages 18 and up: Desirable <200 mg/dL Borderline high 200-239 mg/dL High 240 mg/dL 2014 National Lipid Association recommen dations for Total Cholesterol in children ages 2 to 17. Acceptable <170 mg/dL Borderline High 170-199 mg/dL High 200 mg/dL HX HDL 49 (L) >=50 MGDL POWERCHART Comment: 2014 National Lipid Association recommen dations for HDL-C in adults ages 18 and up: Low <40 mg/dL (Men) Low <50 mg/dL (Women) 2014 National Lipid Association recommen dations for HDL-C in children ages 2 to 17. Low <40 mg/dL Borderline Low 40-45 mg/dL Acceptable >45 mg/dL Triglycerides 169 (H) <=149 MGDL POWERCHART Comment: 2014 National Lipid Association recommen dations for Triglycerides in adults ages 18 and up: Normal <150 mg/dL Borderline High 150-199 mg/dL High 200-499 mg/dL Very High 500 mg/dL 2014 National Lipid Association recommen dations for Triglycerides in children ages 2 to 9. Acceptable <75 mg/dL Borderline High 75-99 mg/dL High 100 mg/dL 2014 National Lipid Association recommen dations for Triglycerides in children ages 10 to 17. Acceptable <90 mg/dL Borderline High 90-129 mg/dL High 130 mg/dL Trigs >400mg/dL: Triglycerides >400 mg/ dL. Calculated LDL cholesterol is not valid. Non-HDL cholesterol may be used for risk assessment when triglycerides are >400mg/dL. HXLDL/HDL 2 POWERCHART Specimen (Source) Anatomical Collection Method Collection Time Re ceived Time Location / / Volume Laterality Blood 12/25/2014 10:12 AM METER READER INSPECTOR Michael Alberts APRN, C.N.P. LAB BLOOD ADD-ON Performing Organization Address City/State/ZIP Code Phon e Number POWERCHART documented in this encounter Visit Diagnoses Not on filedocumented in this encounter Additional Health Concerns Assessment Noted Time PHQ-9 Depression Total Score: 18 12/24/2014 2:32 PM CS T documented as of this encounter
--- OUTSIDE RECORDS SUMMARY | 2021-11-28 09:17 | XMS_ITS | Encounter Summary ---
:1985 Author Organization [facility] Address [address] [place] [address] Care Team Providers Name Role Phone Kandi Alberts APRN C.[email or web address] Primary Care Provider [phone] Reason for Visit Reason Onset Date Comments Results 07/02/2017 Encounter Details Date Type Department Care Team Description 07/02/2017 Clinical Communication Department of [facility] Trudi [facility] Medicine, [facility], in [place] [address] [place] [id number] Social History Tobacco Use Types Packs/Day Years [...] 11/27/2019 relatives? How often do you attend muslim or restorationism Never 01/31/2019 services? 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 - 07/04/2017 8:43 AM CDT Patient given results and advisement from dr hedrick with copy of advismentmailed to patient per her request Telephone Encounter - Marisel Ferrer M.D. - 07/03/2017 4:56 PM CDT The test for chlamydia came back positive. The azithromycin that was previously prescribed is the correct treatment for this. Her partner needs to be tested and treated. The [facility] will be contacting her just to follow-up and make sure this loop gets closed. She will need another test in 6 weeks. Telephone Encounter - Herminia Godoy L.P.N. - 07/03/2017 10:37 AM CDT Patient calling for rest of test results. Stated she got results for one of her test. Wanted to let you know she started bleeding yesterday . More today - changing panty liner every couple of hours. Telephone Encounter - Herminia Godoy L.P.N. - 07/03/2017 9:47 AM CDT Attempted to contact patient. Message left to return my call. Telephone Encounter - Ale Morris - 07/02/2017 2:58 PM CDT Patient was seen Sunday wondering what results are she also wanted to give Dr. Hedrick an update,call her [phone]. documented in this encounter Plan of Treatment Not on filedocumented as of this encounter Visit Diagnoses Not on filedocumented in this encounter Additional Health Concerns Assessment Noted Time PHQ-9 Depression Total Score: 9 06/29/2017 11:57 AM CD T documented as of this encounter Care Teams [employer] Mason Relationship Specialty Start Date End Date Kandi Alberts, TATY, C.N.P. PCP - General 07/27/16 07/10/[address] [phone] documented as of this encounter
--- OUTSIDE RECORDS SUMMARY | 2021-11-28 09:17 | XMS_ITS | Encounter Summary ---
:1985 Author Organization [facility] Address [address] [place] [address] Care Team Providers Name Role Phone Unavailable Primary Care Provider Unavailable Encounter Details Date Type Department Care Team Description 12/25/2014 Hospital Encounter HX [facility] Kandi Alberts A PRN, C.N.P. [address] [place], [place] [phone] (Wo rk) Social History [...] How often do you attend cheondoism or scientologist Never 01/31/2019 services? 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/2018 2:20 PM RESEARCH CONSULTANT documented as of this encounter Last Filed Vital Signs Vital Sign Reading Time Taken Comments Blood Pressure - - Pulse - - Temperature - - Respiratory Rate - - Oxygen Saturation - - Inhaled Oxygen Concentration - - Weight - - Height 162 cm (5' 3.78) 12/25/2014 9:22 AM RESEARCH CONSULTANT Body Mass Index - - documented in this encounter Plan of Treatment Not on filedocumented as of this encounter Procedures Procedure Name Priority Date/Time Associated Comments Diagnosis COMPREHENSIVE Routine 12/25/2014 10:12 Results fo r this METABOLIC PANEL, S/P AM RESEARCH CONSULTANT procedu re are in the results section. documented in this encounter Results (ABNORMAL) CMP (Comprehensive Metabolic Panel) (12/25/2014 10:12 AM RESEARCH CONSULTANT) [facility] gist Method Time Signature Alkaline 61 37 - 98 POWERCHART Phosphatase, S UNITL Alanine 22 7 - 45 POWERCHART Amniotransferase, LD UNITL Aspartate 20 8 - 43 POWERCHART Aminotransferase UNITL (AST), S Bilirubin, Total, S 0.2 0.1 - 1.0 POWERCHART MGDL BUN (Blood Urea 10 6 - 21 POWERCHART Nitrogen), S MGDL Chloride, S 102 98 - 107 POWERCHART MMOLL CO2 Total 27 22 - 29 POWERCHART MMOLL Creatinine 0.6 0.6 - 1.1 POWERCHART MGDL Glucose, Fasting, S 109 (H) 70 - 99 POWERCHART MGDL Total Protein, S 7.4 6.3 - 7.9 POWERCHART GDL Calcium, Total, S 9.5 8.0 - POWERCHART 10.3 MGDL Sodium, S 142 135 - 145 POWERCHART MMOLL Potassium, S 4.3 3.6 - 5.2 POWERCHART MMOLL Albumin, S 4.8 3.2 - 5.2 POWERCHART GDL HXeGFR (MDRD) >60 >=60 POWERCHART [id number] 2 eGFR Black/ >60 >=60 POWERCHART [place] [id number] Specimen (Source) Anatomical Collection Method Collection Time Re ceived Time Location / / Volume Laterality Blood 12/25/2014 10:12 AM RESEARCH CONSULTANT Kandi Alberts APRN, C.N.P. LAB BLOOD ADD-ON Performing Organization Address City/State/ZIP Code Phon e Number POWERCHART documented in this encounter Visit Diagnoses Not on filedocumented in this encounter Additional Health Concerns Assessment Noted Time PHQ-9 Depression Total Score: 18 12/24/2014 2:32 PM CS T documented as of this encounter
--- OUTSIDE RECORDS SUMMARY | 2021-11-28 09:17 | XMS_ITS | Encounter Summary ---
:1985 Author Organization [facility] Address [address] [place] [address] Care Team Providers Name Role Phone Unavailable Primary Care Provider Unavailable Encounter Details Date Type Department Care Team Description 12/24/2014 Hospital Encounter HX NO MAPPING Kandi Alberts, TATY, C.N.P. 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 However, the narrative phrase printed from the coding software may appear abbreviated, or result in slightly different terminology. Coded By: LIBBY JOAQUIN Date Saved: 01/07/2015 05:21 pm Source: [facility] Document Id: [id number] documented in this encounter Plan of Treatment Not on filedocumented as of this encounter Visit Diagnoses Not on filedocumented in this encounter Additional Health Concerns Assessment Noted Time PHQ-9 Depression Total Score: 18 12/24/2014 2:32 PM CS T documented as of this encounter
--- OUTSIDE RECORDS SUMMARY | 2021-11-28 09:17 | XMS_ITS | Encounter Summary ---
:1985 Author Organization [facility] Address [address] [place] [address] Care Team Providers Name Role Phone Unavailable Primary Care Provider Unavailable Encounter Details Date Type Department Care Team Description 08/14/2013 Hospital Encounter HX [facility] Emily Robertson Jr., M.D. [address], [place] [phone] (Wo rk) Social History [...] How often do you attend scientologist or taoism Never 01/31/2019 services? 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 - 08/14/2013 10:13 AM CDT [id number] CHIEF COMPLAINT/REASON FOR VISIT OB transfer of care, per Liseth Perry CNP. HISTORY OF PRESENT ILLNESS Wendi is 28-year-old 6, para 2-0-3-2 female at unknown gestational age who presents to the clinic for OB transfer of care, per Liseth Perry CNP. She had confirmation at [facility] on 07/24/2013 and they estimated that she was 6.5 weeks gestation at that time, which would make her 7.5 weeks today. I previously saw her for management of miscarriage in April 2013, and she did not have a menstrual period following this before she became . Wendi's is complicated by a history of LT section x2 with two layer uterine closure and Rh negative status. She was also previously seen at [facility] approximately 2 weeks ago for heavy vaginal bleeding and clotting. She did have RhoGAM administered at that time. Bleeding has since resolved, but she is still having some abdominal cramping. Wendi believes that she has had routine labs done at [facility], but she has not had any previous ultrasounds with this . MEDICATIONS Zoloft, 50 mg 1 tab PO daily. vitamin 1 tablet by mouth daily. ALLERGIES Morphine. SYSTEMS REVIEW Please see HPI, otherwise all systems are reviewed and are negative. PAST MEDICAL/SURGICAL HISTORY Remarkable for history of depression. SURGICAL HISTORY: section x2 in 2007 and 2012. D&C for treatment of incomplete miscarriage. OBSTETRICAL HISTORY: Low transverse section due to arrest of labor at 6 cm dilation in 2007. Repeat LT section in 2012. SAB x3, with one requiring treatment with D&C. VITAL SIGNS WEIGHT: 61.2 kg. PULSE: 80/min. BLOOD PRESSURE: 118/68. PHYSICAL EXAMINATION GENERAL: Patient appears well groomed and well nourished. No acute distress. Oriented times three. PELVIS: Transvaginal ultrasound is performed today: Gestational sac and yolk sac are seen, but no cardiac activity is observed, please see separate report for details. DIAGNOSTIC: CBC, Vitamin D, LCR, HIV, profile, TSH, and quantitative hCG are ordered today. IMPRESSION/REPORT/PLAN [age] year old 6, para 2-0-3-2 female at approximately 7.5 weeks gestation with vaginal bleeding and cramping during . PLAN: 1. care: CBC, Vitamin D, LCR, HIV, panel, TSH, and quantitative hCG are done today. 2. Vaginal bleeding and cramping during : Patient had a previous episode of heavy vaginal bleeding with passage of clots, which has resolved. She also is having cramping today. Transvaginal ultrasound today indicates likely nonviable and no cardiac activity is observed. Patient is counseled that it may be possible that her is too early to indicate cardiac activity, so we will recheck by ultrasound in 3 days. Miscarriage warning signs are given, and patient will contact the clinic if she experiences heavy bleeding or fever. She did receive RhoGAM at [facility] 2 weeks ago. The possibility of management with D&C is discussed today, and risks with this, including bleeding, infection, and damage to internal organs are discussed today. The patient understands that there is nothing that could be done to change the outcome of this . 3. Follow up: Patient will follow up in 3 days for repeat ultrasound and follow up visit. This document serves as a record of services personally performed by Emily Gomez MD. It was created on their behalf by Latanya Murray, a trained medical office asst. The creation of this record is based on the scribe's personal observations and the provider's statements to them. This document has been ch ecked and approved by the attending provider. Emily Gomez M.D./dilip Electronically Signed By: EMILY GOMEZ MD On: 08/14/2013 02:21 PM Source: [facility] [email or web address] Document Id: [id number] documented in this encounter Miscellaneous Notes Miscellaneous - Emily Gomez Jr., M.D. - 08/14/2013 11:20 AM CDT Ambulatory Patient Summary [address] [id number] Visit Information Name: WENDI ODONNELL [facility] Number: [id number] Current Date: 08/14/2013 11:20:02 Physicians Attending Provider: EMILY GOMEZ MD Primary Care Provider: PCP, ELSEWHERE WENDI ODONNELL has been given the following list of [...] Take Indications/Special Instructions/Comments/Notes for Patient Medication Changes/Routing *fluoxetine (FLUoxetine 60 mg oral tablet) 1 Tablet(s), Oral, once a day (in the morning) multivitamin, ( Multivitamins with Vitamin B Complex, Vitamin C, Minerals and L-Methylfolate oral capsule) 1 cap, Oral, once a day *norgestrel-ethinyl estradiol (Low-Ogestrel 0.3 mg-30 mcg oral tablet) 1 Tablet(s), Oral, once a day sertraline (Zoloft) Oral, once a day *venlafaxine (Effexor 37.5 mg oral tablet) 1 Tablet(s), Oral, two times a day * You have let us know that you are not taking this medication as listed. Please talk with your primary care provider or the health care provider who prescribed the medication as soon as possible. Stop Taking the Following Medications: Medication list as of 08-14-13 11:20 Attention: If you have any medications at home that are not on this list, DO NOT take them until youcontact your provider for clarification. Give a copy of your medication list to your primary care provider. Update your medication list any time medications or doses are changed and carry your medication list at all times in case of emergency. 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 Your Goals/Additional instructions: Source: [facility] POWERCHART Document Id: [id number] Miscellaneous - Emily Gomez Jr., M.D. - 08/14/2013 11:20 AM CDT Ambulatory Discharge Medication List [address] [id number] Visit Information Name: WENDI ODONNELL [facility] Number: [id number] Visit Date: 08/14/2013 11:20:00 Attending Provider: EMILY GOMEZ MD Primary Care Provider: PCP, ELSEWHERE WENDI ODONNELL has been given the following list of medications: Your Medications It is important to take your medications as directed. Use a pill box or chart to help remind you to take your medications. Please let your doctor or nurse know if you have problems taking your medications. Medication/Strength How to Take Indications/Special Instructions/Comments/Notes for Patient Medication Changes/Routing *fluoxetine (FLUoxetine 60 mg oral tablet) 1 Tablet(s), Oral, once a day (in the morning) multivitamin, ( Multivitamins with Vitamin B Complex, Vitamin C, Minerals and L-Methylfolate oral capsule) 1 cap, Oral, once a day *norgestrel-ethinyl estradiol (Low-Ogestrel 0.3 mg-30 mcg oral tablet) 1 Tablet(s), Oral, once a day sertraline (Zoloft) Oral, once a day *venlafaxine (Effexor 37.5 mg oral tablet) 1 Tablet(s), Oral, two times a day * You have let us know that you are not taking this medication as listed. Please talk with your primary care provider or the health care provider who prescribed the medication as soon as possible. Stop Taking the Following Medications: Medication list as of 08-14-13 11:20 Attention: If you have any medications at home that are not on this list, DO NOT take them until youcontact your provider for clarification. Give a copy of your medication list to your primary care provider. Update your medication list any time medications or doses are changed and carry your medication list at all times in case of emergency. Electronically Signed By: EMILY GOMEZ MD Signed On:14-AUG-2013 11:19:38 Additional Information: Source: [facility] POWERCHART Document Id: [id number] Miscellaneous - Adán Ward L.P.N. 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 Marketing Administrator Intake/History Adult Sales And Marketing Administrator Intake/History Entered On: 08/14/2013 10:53 CDT Performed On: 08/14/2013 10:51 CDT by ADÁN WARD LPN Intake Chief Complaint : new ob, paul referal Peripheral Pulse Rate : 80 /min Systolic Blood Pressure : 118 mmHg Diastolic Blood Pressure : 68 mmHg NIBP Mean : 85 mmHg BP Location : Left upper extremity Blood Pressure Cuff Size : Regular Height : 162 cm(Converted to: 5 ft 4 inch(es), 64 inch(es)) Actual Weight : 61.2 kg(Converted to: 134 lb 15 oz) Weight Source : Standing scale Dosing Weight Clinic : 61.2 kg Clinic BSA : 1.66 Body Mass Index : 23.32 kg/m2 ADÁN WARD LPN - 08/14/2013 10:51 CDT General Info Information Given By : Patient Preferred Communication Mode : Verbal Languages : Mauritanian ADÁN WARD LPN - 08/14/2013 10:51 CDT Subjective Pain Symptoms : Yes ADÁN WARD LPN - 08/14/2013 10:51 CDT Pain Pain Assessment Grid Pain 1 Location : Abdomen (Comment: cramps [ADÁN WARD LPN - 08/14/2013 10:51 CDT] ) Laterality : Bilateral ADÁN WARD LPN - 08/14/2013 10:51 CDT Dependent Habits Tobacco Use/Currently Using : No Smoking Status : Never smoker ADÁN WARD Eliel ENGINEERING AND 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 N GONOR AMP DNA Routine 08/14/2013 11:30 Results for this AM CDT procedure are i n the results section. C TRACH AMP SRC Routine 08/14/2013 11:30 Results for this AM CDT procedure are i n the results section. C TRACH AMP RNA Routine 08/14/2013 11:30 Results for this AM CDT procedure are i n the results section. ABO GROUPING, B Routine 08/14/2013 11:30 Results for this AM CDT procedure are i n the results section. PROFILE II Routine 08/14/2013 11:30 Resu lts for this WITHOUT CBC, B/SERUM AM CDT procedu re are in the results section. HIV-1/-2 AG AND AB Routine 08/14/2013 11:30 Resul ts for this SCREEN AM CDT procedure are i n the results section. AUTOMATED DIFFERENTIAL, Routine 08/14/2013 11:30 Results for this B AM CDT procedure are i n the results section. BHCG (BETA-HUMAN Routine 08/14/2013 11:30 Results for this CHORIONIC AM CDT procedure are i n GONADOTROPIN), Azra LOVELL the r esults section. ANTIBODY IDENTIFICATION Routine 08/14/2013 11:30 Results for this AM CDT procedure are i n the results section. 25-HYDROXYVITAMIN D2 Routine 08/14/2013 11:30 Res ults for this AND D3, S AM CDT procedure are i n the results section. CBC WITH DIFFERENTIAL, Routine 08/14/2013 11:30 R esults for this B AM CDT procedure are i n the results section. ANTIBODY SCREEN, B Routine 08/14/2013 11:30 Resul ts for this AM CDT procedure are i n the results section. THYROID-STIMULATING Routine 08/14/2013 11:30 Resu lts for this HORMONE-SENSITIVE AM CDT procedure are in (S-TSH) the results section. documented in this encounter Results HX-N gonor Amp DNA (08/14/2013 11:30 AM CDT) athologist Signature HXN gonor Amp Negative POWERCHART DNA-[place] Specimen (Source) Anatomical Collection Method Collection Time Re ceived Time Location / / Volume Laterality 08/14/2013 11:30 AM CDT Narrative POWERCHART - 08/16/2013 8:35 PM CDT Test Performed by: [place] [address] Site Superintendent: Delano bella, IIIOlu Emily Gomez Jr., M.D. LAB HISTORICAL ORDERS Performing Organization Address City/State/ZIP Code Phon e Number POWERCHART HX-N gonor Amp Src (08/14/2013 11:30 AM CDT) athologist Signature HXN gonor Amp Urine POWERCHART Src-[place] Specimen (Source) Anatomical Collection Method Collection Time Re ceived Time Location / / Volume Laterality 08/14/2013 11:30 AM CDT Emily Gomez Jr., M.D. LAB HISTORICAL ORDERS Performing Organization Address City/State/ZIP Code Phon e Number POWERCHART HX-C trach Amp RNA (08/14/2013 11:30 AM CDT) [facility] gist Method Time [facility] Chlamydia Negative POWERCHART trachomatis amplified RNA Specimen (Source) Anatomical Collection Method Collection Time Re ceived Time Location / / Volume Laterality 08/14/2013 11:30 AM CDT Emily Gomez Jr., M.D. LAB HISTORICAL ORDERS Performing Organization Address City/State/ZIP Code Phon e Number POWERCHART HX-C trach Amp Src (08/14/2013 11:30 AM CDT) athologist Signature HXC trach Amp Urine POWERCHART Src-[place] Specimen (Source) Anatomical Collection Method Collection Time Re ceived Time Location / / Volume Laterality 08/14/2013 11:30 AM CDT Emily Gomez Jr., M.D. LAB HISTORICAL ORDERS Performing Organization Address City/State/ZIP Code Phon e Number POWERCHART Antibody Screen (08/14/2013 11:30 AM CDT) athologist Signature Antibody Positive POWERCHART Screen Specimen (Source) Anatomical Collection Method Collection Time Re ceived Time Location / / Volume Laterality 08/14/2013 11:30 AM CDT Emily Gomez Jr., M.D. LAB BLOOD BANK TEST ORDERABL ES Performing Organization Address City/[facility]/ZIP Code Phon e Number POWERCHART Grouping and Rh-[place] FLIP, see #[id number] (08/14/2013 11:30 AM CDT) [facility] gist Method Time Signature HX Grouping A Negative POWERCHART and Rh Specimen (Source) Anatomical Collection Method Collection Time Re ceived Time Location / / Volume Laterality 08/14/2013 11:30 AM CDT Emily Gomez Jr., M.D. LAB BLOOD BANK TEST ORDERABL ES Performing Organization Address City/[facility]/ZIP Code Phon e Number POWERCHART Automated Differential (08/14/2013 11:30 AM CDT) athologist Signature Absolute 6.53 1.70 - POWERCHART Neutrophils 7.00 109L Lymphocytes 1.06 0.90 - POWERCHART 2.90 X109L Monocytes 0.51 0.30 - POWERCHART 0.90 X109L Eosinophils 0.08 0.05 - POWERCHART 0.50 X109L Absolute 0.02 0.00 - POWERCHART Basophil 0.30 X109L Specimen Anatomical Collection Method Collection Time Receive d Time (Source) Location / / Volume Laterality Blood 08/14/2013 11:30 08/14/2013 AM CDT 11:30 AM CDT Emily Gomez Jr., M.D. LAB BLOOD ADD-ON Performing Organization Address City/State/ZIP Code Phon e Number POWERCHART CBC with Differential (08/14/2013 11:30 AM CDT) athologist Signature Leukocytes 8.2 3.4 - 10.5 POWERCHART X109L Erythrocytes 4.50 3.90 - POWERCHART 5.03 J1324S Hemoglobin 13.2 12.0 - POWERCHART 15.5 GDL Hematocrit 39.3 34.9 - POWERCHART 44.5 MCV 87.3 82.0 - POWERCHART 98.0 FL Platelet Count 225 150 - 450 POWERCHART X109L HX RDW 12.6 11.9 - POWERCHART 15.5 HXDifferential? Auto POWERCHART Specimen (Source) Anatomical Collection Method Collection Time Re ceived Time Location / / Volume Laterality Blood 08/14/2013 11:30 AM CDT Emily Gomez Jr., M.D. LAB BLOOD ADD-ON Performing Organization Address City/State/ZIP Code Phon e Number POWERCHART Antibody identification (08/14/2013 11:30 AM CDT) athologist Signature Antibody ID Anti-D Negative POWERCHART Comment: Immune status unknown. Consider Rh Immune Globulin administrati on as a possible source. Test Performed by: [place] [address] Site Superintendent: Delano bella III, M.D. Specimen Anatomical Collection Method Collection Time Receive d Time (Source) Location / / Volume Laterality Blood 08/14/2013 11:30 08/15/2013 AM CDT 10:06 AM CDT Historical Provider LAB BLOOD BANK TEST ORDERABL ES Performing Organization Address City/[facility]/ZIP Code Phon e Number POWERCHART bHCG (Beta-Human Chorionic Gonadotropin), Quantitative (08/14/2013 11:30 AM CDT) [facility] gist Method Time Signature Beta-HCG, Separate POWERCHART Quantitative, Report S Specimen (Source) Anatomical Collection Method Collection Time Re ceived Time Location / / Volume Laterality Blood 08/14/2013 11:30 AM CDT Emily Gomez Jr., M.D. LAB BLOOD ADD-ON Performing Organization Address City/[facility]/ZIP Code Phon e Number POWERCHART Profile II without CBC/Serum (08/14/2013 11:30 AM CDT) athologist Signature HX Rubella Positive POWERCHART IgG-[place] Comment: Results suggest response to immunization or prior exposure to the virus. -- REFERENCE VALUE -- Vaccinated: Positive (>=1.0 AI) Unvaccinated: Negative (<=0.7 AI) Rubella IgG Antibody Index 2.7 POW ERCHART Syphilis IgG Ab, S Negative Negative POWERCHART Comment: No serologic evidence of exposu re to syphilis. HBs Antigen, S Negative Negative POWERCHART Comment: Test Performed by: [facility] [address] [place] [address] Site Superintendent: Delano bella III, M.D. Specimen (Source) Anatomical Collection Method Collection Time Re ceived Time Location / / Volume Laterality Blood 08/14/2013 11:30 AM CDT Emily Gomez Jr., M.D. LAB BLOOD NON ADD-ON Performing Organization Address City/State/ZIP Code Phon e Number POWERCHART Thyroid-Stimulating Hormone-Sensitive (s-TSH) (08/14/2013 11:30 AM CDT) P athologist Signature TSH, Sensitive 1.2 0.3 - 5.0 POWERCHART MIUL Comment: Test Performed by: [facility] [address] [place] [address] Site Superintendent: Delano bella III, M.D. Specimen (Source) Anatomical Collection Method Collection Time Re ceived Time Location / / Volume Laterality Blood 08/14/2013 11:30 AM CDT Emily Gomez Jr., M.D. LAB BLOOD ADD-ON Performing Organization Address City/State/ZIP Code Phon e Number POWERCHART HIV-1/-2 Ag and Ab Screen (08/14/2013 11:30 AM CDT) P athologist Signature HIV-1/-2 Negative Negative POWERCHART Antibody Comment: Negative result does not rule out HIV in fection. If acute HIV infection is suspected in a hi gh-risk individual, submit plasma specimen for H IV-1 RNA quantification test (HIVQU) and/or HIV-2 DNA/RNA test (FHV2Q). Test Performed by: [facility] [address] [place] [address] Site Superintendent: Delano bella III, M.D. Specimen (Source) Anatomical Collection Method Collection Time Re ceived Time Location / / Volume Laterality Blood 08/14/2013 11:30 AM CDT Emily Gomez Jr., M.D. LAB MICROBIOLOGY - BLOOD ORD ERABLES Performing Organization Address City/[facility] Code Phon e Number POWERCHART 25-Hydroxyvitamin D2 and D3 (08/14/2013 11:30 AM CDT) P athologist Signature HX25 HYDROXY D2 <4.0 NGML POWERCHART 25-Hydroxy D3 46 NGML POWERCHART Vitamin D, S 46 NGML POWERCHART Comment: -- REFERENCE VALUE -- 25-HYDROXY D TOTAL (D2+D3) Optimum level s in the healthy population are 20-50, patients with bone disease may benefit from higher levels within this r hoa. Test Performed by: [place] [id number] Site Superintendent: Delano bella III, M.D. Specimen (Source) Anatomical Collection Method Collection Time Re ceived Time Location / / Volume Laterality Blood 08/14/2013 11:30 AM CDT Emily Gomez Jr., M.D. LAB BLOOD ADD-ON Performing Organization Address City/State/[facility] Code Phon e Number POWERCHART documented in this encounter Visit Diagnoses Not on filedocumented in this encounter Additional Health Concerns Assessment Noted Time PHQ-9 Depression Total Score: 18 06/21/2009 11:24 AM C DT documented as of this encounter
--- OUTSIDE RECORDS SUMMARY | 2021-11-28 09:17 | XMS_ITS | Encounter Summary ---
:1985 Author Organization [facility] Address [address] [place] [address] Care Team Providers Name Role Phone Unavailable Primary Care Provider Unavailable Encounter Details Date Type Department Care Team Description 07/14/2015 Hospital Encounter HX NO MAPPING Kandi Alberts, TATY, C.N.P. [address] [place], [place] [phone] (Wo rk) Social History [...] 11/27/2019 relatives? How often do you attend congregation or restoration Never 01/31/2019 services? 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 However, the narrative phrase printed from the coding software may appear abbreviated, or result in slightly different terminology. Coded By: AKSHAT HILTON Date Saved: 07/27/2015 04:23 pm Source: [facility] Document Id: [id number] documented in this encounter Plan of Treatment Not on filedocumented as of this encounter Visit Diagnoses Not on filedocumented in this encounter Additional Health Concerns Assessment Noted Time PHQ-9 Depression Total Score: 19 01/20/2015 2:44 PM CS T documented as of this encounter
--- OUTSIDE RECORDS SUMMARY | 2021-11-28 09:17 | XMS_ITS | Encounter Summary ---
:1985 Author Organization [facility] Address [address] [place] [address] Care Team Providers Name Role Phone Unavailable Primary Care Provider Unavailable Encounter Details Date Type Department Care Team Description 12/24/2014 Hospital Encounter HX [facility]ILY[facility] Michelle Hankins, TATY, C.N.P. [address] [place] [address] (Wo rk) Social History Tobacco [...] How often do you attend episcopal or mu-ism Never 01/31/2019 services? 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/2018 2:20 PM SCRIBING MACHINE OPERATOR documented as of this encounter Last Filed Vital Signs Vital Sign Reading Time Taken Comments Blood Pressure 114/74 12/24/2014 2:12 PM SCRIBING MACHINE OPERATOR Pulse 80 12/24/2014 2:12 PM SCRIBING MACHINE OPERATOR Temperature - - Respiratory Rate 16 12/24/2014 2:12 PM SCRIBING MACHINE OPERATOR Oxygen Saturation - - Inhaled Oxygen Concentration - - Weight 63.5 kg (139 lb 15.9 oz) 12/24/2014 2:12 PM SCRIBING MACHINE OPERATOR Height 162 cm (5' 3.78) 12/24/2014 2:12 PM SCRIBING MACHINE OPERATOR Body Mass Index 24.2 12/24/2014 2:12 PM SCRIBING MACHINE OPERATOR documented in this encounter Progress Notes Michael Hankins, TATY, Leti. - 12/24/2014 1:53 PM CST [id number] CHIEF COMPLAINT/REASON FOR VISIT 1. Depression. 2. Fatigue. HISTORY OF PRESENT ILLNESS This is Wendi's 1st visit back at [facility] in [place] in over a year. She has been getting care at [facility] in [place]. She states she has depression, she feels extremely tired, she does not want to get out of bed, she is overeating, she has little interest or pleasure in doing things. She is having difficult time concentrating. She just started a new job at the [employer], she is working nights, yesterday was her first day. She denies any desire to harm herselfor others. She is currently on Effexor 37.5 mg 1 daily. She does not feel it is helping. She has chronic low back pain. She sees Dr. Jacobsen in [place]. She takes naproxen and gabapentin for her back pain. She does not think she has had labs in quite a while. She is also due for a Pap smear. MEDICATIONS See depart summary from today. ALLERGIES Morphine. SYSTEMS REVIEW Positive for that mentioned in the history of present illness and noted in the past medical history in the EMR. All other systems were reviewed and were negative. PAST MEDICAL/SURGICAL HISTORY PAST MEDICAL HISTORY: Depression and low back pain. PAST SURGICAL HISTORY: and D and C and colposcopy. PREVENTIVE Pap smear was done today. She declines flu shot. She will return for fasting labs. SOCIAL HISTORY She does not smoke. FAMILY HISTORY Reviewed from todays family history tab in the EMR. VITAL SIGNS Reviewed from todays evaluation under the vitals tab in the EMR. PHYSICAL EXAMINATION GENERAL: Well-developed, well-nourished female, in no acute distress. SKIN: Warm and dry. ENT: TMs clear. Throat clear. NECK: Supple. No lymphadenopathy or thyromegaly. HEART: Regular rate and rhythm. S1, S2. No murmur. LUNGS: Clear to auscultation. ABDOMEN: Soft, nontender. No hepatosplenomegaly. GENITOURINARY: Bartholin's, urethral and [place]'s, vagina and cervix are without lesion. ThinPrep Papsmear done with plastic spatula and cytobrush. Bimanual examination reveals uterus is midline, mobile and nontender. No adnexal masses. EXTREMITIES: Warm, dry. No peripheral edema. MENTAL STATUS: Eye contact normal. Speech clear and fluent. Normal rate and volume. Affect expressive. Insight and judgment intact. No suicidality. IMPRESSION/REPORT/PLAN 1. Depression. Does not appear to be on therapeutic level of Effexor. I am going to have her discontinue the 37.5 mg tabs and start Effexor XR 75 mg 1 daily. Plan to check her back in a week or so onceshe has fasting labs. 2. Extreme fatigue. I am going to check CBC, CMP and TSH and lipids. She is going to sign up for thepatient portal and so she can contact me with questions or concerns and I will contact her through the portal with Pap smear results. Total time spent with the patient 35 minutes, 25 minutes of it counseling and coordinating care including discussing antidepressant medication and therapeutic dosing. Michael Hankins CNP/heather Electronically Signed By: MICHAEL HANKINS CNP On: 12/28/2014 07:47 AM Source: [facility] [email or web address] Document Id: [id number] BING MACHINE OPERATOR documented in this encounter Nursing Notes Michael Hankins APRN, C.N.P. - 12/24/2014 2:27 PM CST Ambulatory Patient Education The following [...] medications. Your doctor can tell you more. [place] If you have bipolar disorder, you may take a medication called lithium. This medication helps even out your mood. Possible side effects are weight gain, trembling, and nausea. If You Are Taking MAOIs, Avoid: Beans Aged cheese Chocolate Red wine Most cold medications Certain medications (ask your doctor) To Reduce the Risk of [place] Poisoning: Take only the prescribed amount of lithium. Drink plenty offluids other than coffee, tea, and soda. Limit salt in your diet. If You Have Side Effects The side effects of antidepressants are usually mild. But if you have troubling side effects, call your doctor. Changing the dosage or type of medication may help. Never stop taking medications on yourown. ?? [id number] Kyle Kenny, [address] [place] [address], [place] [address]. All rights reserved. This information is not intended as a substitute for professional medical care. Always follow your healthcare professional's instructions. This document has images extracted. Please consider using PaperShare for all your patient education needs. Source: [facility] [email or web address] Document Id: [id number] BING MACHINE OPERATOR documented in this encounter Miscellaneous Notes Miscellaneous - Michael Hankins APRN, C.N.P. - 01/04/2015 1:55 PM CST Custom Result Letter 04 January 2015 WENDI ALEXANDER [address] [facility] [id number] Dear WENDI ALEXANDER, I am happy to inform you that your recent Pap smear has been read as normal or negative. This is very reassuring. I would recommend following up with your next Pap smear in three years. Result Name Current Result ACCT EXEC Cytology. 12/24/2014 Sincerely, MICHAEL HANKINS [address] [place] [address] Electronic Signature Electronically Signed By: MICHAEL HANKINS CNP On: 04 January 2015 This document has images extracted. Source: [facility] Cream.HR Document Id: [id number] Electronically signed by Komal, [facility] Varnishing Unit Operator [id number] at 07/10/2016 7:24 AM CDT Miscellaneous - Thais Yi L.P.N. - 12/24/2014 2:35 PM CST Health Assessment Health Assessment Entered On: 12/24/2014 14:38 SCRIBING MACHINE OPERATOR Performed On: 12/24/2014 14:35 SCRIBING MACHINE OPERATOR by THAIS YI LPN Health Assessment Complete Health Assessment Complete or Modified : Annual Health Assessment Annual Health Assessment Completed : Yes THAIS YI LPN - 12/24/2014 14:35 SCRIBING MACHINE OPERATOR Nutrition Nutrition Risk Factors by History Adult : None THAIS YI LPN - 12/24/2014 14:35 SCRIBING MACHINE OPERATOR Functional Current Daily Living Assistance : None THAIS YI LPN - 12/24/2014 14:35 SCRIBING MACHINE OPERATOR Dependent Habits Tobacco Use/Currently Using : No Tobacco Use/Last 12 months : No Exposure to Tobacco Smoke : Other: Never Smoking Status : Never smoker Alcohol Use : Yes THAIS YI LPN - 12/24/2014 14:35 SCRIBING MACHINE OPERATOR Caffeine Use Grid Caffeine Use : Current Type : Energy drinks Frequency : Weekly Amount : 1 THAIS YI LPN - 12/24/2014 14:35 SCRIBING MACHINE OPERATOR AUDIT Tool How Often Do You Have A Drink : Monthly or less How Many Drinks in a Day When Drinking : 5 or 6 Six or More Drinks On One Occassion : Monthly Audit Phase 1 Score : 5 Not Able To Stop Drinking Once Started : Never Failed To Do What Is Normally Expected : Never Needed A First Drink In The Morning : Never Feeling of Guilt/Remorse After Drinking : Less than monthly Unable to Remember What Happened : Never Has Your Drinking Caused Injury : Yes, but not in the last year Anyone Concerned About Your Drinking : No AUDIT Phase 2 Score : 3 AUDIT Score : 8 THAIS YI LPN - 12/24/2014 14:35 SCRIBING MACHINE OPERATOR Psychosocial Domestic Abuse Concerns : None Behavioral Health Screen/Safety Assmt : No Lutheran Preference : No qualifying data available. THAIS YI LPN - 12/24/2014 14:35 SCRIBING MACHINE OPERATOR Advance Directive Advanced Directives : No Advance Directive Additional Information : No THAIS YI LPN - 12/24/2014 14:35 SCRIBING MACHINE OPERATOR Educ Needs Learning Style Preference Adult Grid Patient : Printed materials, Verbal explanation Family : Verbal explanation, Printed materials THAIS YI LPN - 12/24/2014 14:35 SCRIBING MACHINE OPERATOR Source: [facility] POWERCHART Document Id: [id number] SCRIBING MACHINE OPERATOR!45 BING MACHINE OPERATOR Miscellaneous - Thais Yi, L.P.N. - 12/24/2014 2:32 PM CST PHQ-9 PHQ-9 Entered On: 12/24/2014 14:33 SCRIBING MACHINE OPERATOR Performed On: 12/24/2014 14:32 SCRIBING MACHINE OPERATOR by THAIS YI LPN PHQ-9 Little interest or pleasure in doing things : More than half the days Feeling down, depressed, or hopeless : More than half the days Trouble falling or staying asleep, or sleeping too much : Nearly every day Feeling tired or having little energy : Nearly every day Poor appetite or overeating : Nearly every day Feeling bad about yourself or that you are a failure : Several days Trouble concentrating on things : More than half the days Moving or speaking slowly; restless or fidgety : More than half the days Thoughts that you would be better off /hurting self : Not at all PHQ-9 Calculated Score : 18 Problems make work, home, or dealing with others : Very difficult THAIS YI LPN - 12/24/2014 14:32 SCRIBING MACHINE OPERATOR Source: [facility] Cream.HR Document Id: [id number] SCRIBING MACHINE OPERATOR!13 BING MACHINE OPERATOR Miscellaneous - Michael Hankins APRN, C.N.P. - 12/24/2014 2:27 PM CST Ambulatory Patient Summary [address] [id number] Visit Information Name: CATHERINE WENDI LUIS [facility] Number: [id number] Current Date: 12/24/2014 14:27:56 Physicians Attending Provider: MICHAEL HANKINS CNP Primary Care Provider: MICHAEL HANKINS CNP CATHERINE WENDI SMITH has been given the following list of [...] day as needed for pain venlafaxine (venlafaxine 75 mg oral capsule, extended release) 1 cap, Oral, once a day This is a CHANGE Routed to [address] [address] Stop Taking the Following Medications: Medication list as of 12-24-14 14:27 Attention: If you have any medications at home that are not on this list, DO NOT take them until youcontact your provider for clarification. Give a copy of your medication list to your primary care provider. Update your medication list any time medications or doses are changed and carry your medication list at all times in case of emergency. Electronically Signed By: MICHAEL HANKINS CNP Signed On:24-DEC-2014 14:27:37 Your Allergies & Intolerances Substance Reaction Symptoms [...] medications. Your doctor can tell you more. [place] If you have bipolar disorder, you may take a medication called lithium. This medication helps even out your mood. Possible side effects are weight gain, trembling, and nausea. If You Are Taking MAOIs, Avoid: Beans Aged cheese Chocolate Red wine Most cold medications Certain medications (ask your doctor) To Reduce the Risk of [place] Poisoning: Take only the prescribed amount of lithium. Drink plenty offluids other than coffee, tea, and soda. Limit salt in your diet. If You Have Side Effects The side effects of antidepressants are usually mild. But if you have troubling side effects, call your doctor. Changing the dosage or type of medication may help. Never stop taking medications on yourown. ?? [id number] [facility], [address] [place] [address], [place] [address]. All rights reserved. This information is not [...] if you dont have one. Go to [email or web address] and click on Create Your Account. Then, follow the directions to complete the online form. Youll be asked for your [facility] number which you can find at the top of this document. Your Goals/Additional instructions: This document has images extracted. Please consider using PaperShare for all your patient education needs. Source: [facility] POWERCHART Document Id: [id number] BING MACHINE OPERATOR Miscellaneous - Michael Hankins APRN, C.N.P. - 12/24/2014 2:27 PM CST Ambulatory Discharge Medication List [address] [id number] Visit Information Name: WENDI ALEXANDER [facility] Number: [id number] Visit Date: 12/24/2014 14:27:55 Attending Provider: MICHAEL HANKINS CNP Primary Care Provider: MICHAEL HANKINS CNP CATHERINEWENDI has been given the following list of [...] day as needed for pain venlafaxine (venlafaxine 75 mg oral capsule, extended release) 1 cap, Oral, once a day This [place] [address] Stop Taking the Following Medications: Medication list as of 12-24-14 14:27 Attention: If you have any medications at home that are not on this list, DO NOT take them until youcontact your provider for clarification. Give a copy of your medication list to your primary care provider. Update your medication list any time medications or doses are changed and carry your medication list at all times in case of emergency. Electronically Signed By: MICHAEL HANKINS CNP Signed On:24-DEC-2014 14:27:37 Additional Information: Source: [facility] POWERCHART Document Id: [id number] BING MACHINE OPERATOR Miscellaneous - Thais Yi L.P.N. - 12/24/2014 2:12 PM CST Adult Fuselage Framer Intake/History Adult Fuselage Framer Intake/History Entered On: 12/24/2014 14:15 SCRIBING MACHINE OPERATOR Performed On: 12/24/2014 14:12 SCRIBING MACHINE OPERATOR by THAIS YI LPN Intake Chief Complaint : Getting upper abdomen pain. Started a couple of months ago. Comes and goes. Gets really dizzy and headache and whole body get warm. Needs refills of effexor but does not think it works. Very tired and sleepy. Temperature Core : 36.7 DegC(Converted to: 98.1 DegF) Peripheral Pulse Rate : 80 /min Respiratory Rate : 16 /min Heart Rhythm : Regular Systolic Blood Pressure : 114 mmHg Diastolic Blood Pressure : 74 mmHg NIBP Mean : 87 mmHg BP Location : Left upper extremity Blood Pressure Cuff Size : Regular Height : 162 cm(Converted to: 5 ft 4 inch(es), 64 inch(es)) Actual Weight : 63.5 kg(Converted to: 140 lb 0 oz) Weight Source : Standing scale Dosing Weight Clinic : 63.5 kg Clinic BSA : 1.69 Body Mass Index : 24.2 kg/m2 THAIS YI LPN - 12/24/2014 14:12 SCRIBING MACHINE OPERATOR General Info Information Given By : Patient Preferred Communication Mode : Verbal Languages : Polish Is Patient Female and 13-50 no hysterectomy : Yes Status : Patient denies Are you ? : No THAIS YI LPN - 12/24/2014 14:12 SCRIBING MACHINE OPERATOR Subjective Pain Symptoms : No THAIS YI LPN - 12/24/2014 14:12 SCRIBING MACHINE OPERATOR Dependent Habits Tobacco Use/Currently Using : No Tobacco Use/Last 12 months : No Exposure to Tobacco Smoke : Other: Never Smoking Status : Never smoker THAIS YI LPN - 12/24/2014 14:12 SCRIBING MACHINE OPERATOR Caffeine Use Grid Caffeine Use : Current Type : Energy drinks Frequency : Weekly Amount : 1 THAIS YI LPN - 12/24/2014 14:12 SCRIBING MACHINE OPERATOR Source: [facility] POWERCHART Document Id: [id number] SCRIBING MACHINE OPERATOR!38 BING MACHINE OPERATOR documented in this encounter Plan of Treatment Not on filedocumented as of this encounter Procedures Procedure Name Priority Date/Time Associated Diagnosis Comme nts PATHOLOGY ACCT EXEC Routine 12/24/2014 12:00 AM Results for this CYTOLOGY SCRIBING MACHINE OPERATOR procedure are i n the results section. documented in this encounter Results Pathology ACCT EXEC Cytology (12/24/2014 12:00 AM SCRIBING MACHINE OPERATOR) Specimen (Source) Anatomical Location Collection Method / Collectio n Time Received Time / Laterality Volume 12/24/2014 Narrative [facility] - 01/04/2015 1:36 PM SCRIBING MACHINE OPERATOR [facility] [place] [address] [place], [place] ??[address] Patient Name: WENDI ALEXANDER Patient ID #: [id number] Collected: 12/24/2014 Address: [facility]/State/Zip: [address] [place], [place] ??[id number] Received: Reported: 12/28/2014 01/04/2015 Soc. Sec. #: ?/Age/Sex 1985 (Age: 29) ??F Physician(s): BECKY HANKINS CNP Copy To: ? [facility] ??[phone] [facility], ??[place] ??[address] CYTOPATHOLOGY ACCT EXEC REPORT FINAL CYTOLOGIC DIAGNOSIS Pap Smear - ThinPrep: NEGATIVE FOR INTRAEPITHELIAL LESION OR MALIGNANCY ENDOCERVICAL CELLS/COMPONENT PRESENT. PREDOMINANCE OF COCCOBACILLI CONSISTENT WITH SHIFT IN VAGINAL ROSE (POSSIBLE BACTERIAL VAGINOSIS -- CLINICAL CORRELATION SUGGESTED). SATISFACTORY SPECIMEN FOR EVALUATION. Electronically Signed Out By dls/01/04/2015 JANES [facility] CT(ASCP) The Pap test is a screening procedure an d, as such, is subject to both false positive and false negative results as evidenced by published data. ??It is not a diagnostic test and results should be inter preted in the context of the patient's h istory and other clinical findings. ??Obtaining per iodic Pap tests may help to minimize the consequences of any false negatives that may occur. SPECIMEN(S) RECEIVED: Pap Smear - ThinPrep CLINICAL HISTORY: Date of Last Menstrual Period: 12-12-14 Hormonal History: No hormonal therapy Other Clinical Conditions: HPV TYPING REQUESTED: IF ASCUS Michael Hankins APRN, C.N.P. LAB PAP COPATH ORDERABLES Performing Organization Address City/State/ZIP Code Phon e Number [facility] documented in this encounter Visit Diagnoses Not on filedocumented in this encounter Additional Health Concerns Assessment Noted Time PHQ-9 Depression Total Score: 18 12/24/2014 2:32 PM CS T documented as of this encounter
--- OUTSIDE RECORDS SUMMARY | 2021-11-28 09:17 | XMS_ITS | Encounter Summary ---
:1985 Author Organization [facility] Address [address] [place] [address] Care Team Providers Name Role Phone Unavailable Primary Care Provider Unavailable Encounter Details Date Type Department Care Team Description 03/22/2012 Hospital Encounter HX [facility] Shayne Woody M.D. [address], [place] [phone] (Wo rk) Social History [...] How often do you attend temple or druze Never 01/31/2019 services? 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/2018 2:20 PM HEMATOLOGY NURSE EDUCATOR documented as of this encounter Last Filed Vital Signs Vital Sign Reading Time Taken Comments Blood Pressure 120/78 03/22/2012 4:55 PM HEMATOLOGY NURSE EDUCATOR Pulse - - Temperature - - Respiratory Rate - - Oxygen Saturation - - Inhaled Oxygen Concentration - - Weight 62.8 kg (138 lb 7.2 oz) 03/22/2012 4:55 PM HEMATOLOGY NURSE EDUCATOR Height - - Body Mass Index 25.16 02/12/2012 1:41 PM HEMATOLOGY NURSE EDUCATOR documented in this encounter Progress Notes Emmy Shannon M.D. - 03/22/2012 4:43 PM CST [id number] Non stress test Patient name :Wendi Odonnell Date of service: 03/22/12 Gestational age: 38 and 6 weeks Diagnosis: Decreased movement Indication for test: Decreased movement Non stress test shows heart rate baseline of 150bpm, moderate variability, no decelerations. Interpretation is reactive / reassuring with good variability and accelerations Follow up in 1 week for OB check Emmy Shannon M.D./yasemin DOCID: [id number] Electronically Signed By: EMMY SHANNON MD On: 03/22/2012 05:51 PM Source: [facility] [id number] Document Id: [id number] TOLOGY NURSE EDUCATOR documented in this encounter Consult Notes Emmy Shannon M.D. - 03/22/2012 4:43 PM CST [id number] CHIEF COMPLAINT/REASON FOR VISIT OB followup HISTORY OF PRESENT ILLNESS Wendi is a 26-year-old 5, para 1-0-3-1 female at 38 +6 weeks by last menstrual period consistent with 6 +1 week ultrasound who presents for OB followup today. She states that her pain behind her eyes and headache has improved significantly. She also continues to have many of her vague complaints that have been related to as well as congestion complaints. She states that she had a large mucous like discharge. Due to external factors the patient and her partner have been irritable inthe last couple of days. Positive movement. No vaginal bleeding or leakage of fluid. Positive occasional contractions. She states that it is uncomfortable for her to walk with the amount of discomfort in the pelvic area. She reports decreased movement during the day for the past 2 weeks. The patient denies any additional complaints or questions at this time. CURRENT MEDICATIONS 1. vitamin 1 tablet by mouth daily 2. Fluoxetine 40 mg by mouth daily ALLERGIES No known drug allergies SYSTEMS REVIEW GENERAL: No fevers, chills, fatigue, unintentional weight loss or weight gain. HEENT: No changes in vision or hearing, no sore throat or nasal congestion. CARDIOVASCULAR: No chest pain, irregular heartbeat or racing heart. RESPIRATORY: No shortness of breath, cough or wheeze. GASTROINTESTINAL: No nausea, vomiting, diarrhea, constipation or abdominal pain. GENITOURINARY: No pain or burning with urination, no irregular vaginal bleeding, heavy periods, painful periods, abnormal vaginal discharge, leaking urine, leaking stool or gas. SKIN: No rashes or skin lesions. BREASTS: No masses or lumps, no discharge from the nipples. NEURO: No difficulty with memory, numbness, tingling, falls. PSYCHE: No anxiety, depression, or difficulty sleeping. ENDOCRINE: No heat intolerance, cold intolerance, excessive thirst or hair loss. COMPLICATIONS OF 1. History of depression, anxiety and suicide attempt early in 2. Rh negative status post RhoGAM on 01/26/2012. 3. Borderline personality disorder. 4. History of section which was a primary low transverse section with two-layer uterine closure. 5. Acute sinusitis. VITAL SIGNS WEIGHT 62.8 kg BLOOD PRESSURE: 120mmHg / 78mmHg PHYSICAL EXAM GENERAL: Well nourished female in no acute distress. ABDOMEN: Gravid, fundal height 38 cm, heart tones 150's. LOWER EXTREMITIES: Nontender, trace edema bilateral lower extremities. GENITALIA: Cervix: 1cm Fingertip/50%/-2 station IMPRESSION/REPORT/PLAN Wendi is a 26-year old 5, para 1-0-3-1 female at 38 +6 weeks by last menstrual period consistent with 6 +1 week ultrasound who presents for OB followup today. 1. care: movement counts discussed. Once a day the baby should move 10 times in two hours. If the baby does not move, come in to the clinic for monitoring. Labor warnings given. 2. Sinusitis: Her headache and the pain behind her eyes have improved. Her congestion has remained constant and it is likely related to . 3. Decreased movement: NST reactive today. 4. Depression/anxiety: The patient has been restarted on fluoxetine and her symptoms are stable withthis. 5. Rh negative: Patient is status post RhoGAM on 01/26/2012 and will need RhoGAM in the period. 6. Followup: The patient will return in 1 week for OB followup. If she has any questions or concernsprior to that time she will call the clinic. This document serves as a record of services personally performed by Emmy Shannon MD. It was created on their behalf by Gricel Ron, a trained medical professionals. The creation of this record is based on the scribe's personal observations and the provider's statements to them. This document has been checked and approved by the attending provider. Emmy Shannon M.D./yasemin DOCID: [id number] Electronically Signed By: EMMY SHANNON MD On: 03/22/2012 05:51 PM Source: [facility] [email or web address] Document Id: [id number] TOLOGY NURSE EDUCATOR documented in this encounter Miscellaneous Notes Miscellaneous - Emmy Shannon M.D. - 03/22/2012 5:50 PM CST [place] [address] Visit Information Name: WENDI ODONNELL [facility] Number: [id number] Visit Date: 03/22/2012 17:50:21 Attending Provider: EMMY SHANNON MD Primary Care Provider: PIPO JUAREZ AMBER LEE has been given the following list of medications: Your Medications It is important to take your medications as directed. Use a pill box or chart to help remind you to take your medications. Please let your doctor or nurse know if you have problems taking your medications. Medication/Strength Dose Route Frequency Indications/Special Instructions/Comments fluoxetine (fluoxetine 40 mg oral capsule) 40 mg Oral once a day multivitamin, ( Multivitamins oral tablet) 1 tab(s) Oral once a day Attention: If you have any medications at home that are not on this list, DO NOT take them until youcontact your provider for clarification. Additional Information: Source: [facility] POWERCHART Document Id: [id number] TOLOGY NURSE EDUCATOR Miscellaneous - Emmy Shannon M.D. - 03/22/2012 5:50 PM CST Amb[place] [address] Visit Information Name: WENDI ODONNELL [facility] Number: [id number] Visit Date: 03/22/2012 17:50:21 Attending Provider: EMMY SHANNON MD Primary Care Provider: PIPO JUAREZ AMBER LEE has been given the following list of medications: Your Medications It is important to take your medications as directed. Use a pill box or chart to help remind you to take your medications. Please let your doctor or nurse know if you have problems taking your medications. Medication/Strength Dose Route Frequency Indications/Special Instructions/Comments fluoxetine (fluoxetine 40 mg oral capsule) 40 mg Oral once a day multivitamin, ( Multivitamins oral tablet) 1 tab(s) Oral once a day Attention: If you have any medications at home that are not on this list, DO NOT take them until youcontact your provider for clarification. Additional Information: Source: [facility] POWERCHART Document Id: [id number] TOLOGY NURSE EDUCATOR Miscellaneous - Conversion, Historical Provider Ser - 03/22/2012 4:55 PM HEMATOLOGY NURSE EDUCATOR Adult Director Mba Intake/History Adult Director Mba Intake/History Entered On: 03/22/2012 16:56 HEMATOLOGY NURSE EDUCATOR Performed On: 03/22/2012 16:55 HEMATOLOGY NURSE EDUCATOR by ZURDO GONZALEZ Intake Chief Complaint : ob visit 38+6 LMP Date : 06-24-11 Systolic Blood Pressure : 120mmHg Diastolic Blood Pressure : 78mmHg NIBP Mean : 92mmHg BP Location : Right upper extremity Blood Pressure Cuff Size : Regular Actual Weight : 62.8kg(Converted to: 138lb 7oz) Dosing Weight Clinic : 62.80kg ZURDO GONZALEZ 03/22/2012 16:55 HEMATOLOGY NURSE EDUCATOR General Info Information Given By : Patient Languages : Danish ZURDO GONZALEZ 03/22/2012 16:55 HEMATOLOGY NURSE EDUCATOR Subjective Pain Symptoms : No ZURDO GONZALEZ 03/22/2012 16:55 HEMATOLOGY NURSE EDUCATOR Dependent Habits Tobacco Use/Currently Using : No Tobacco Use/Last 12 months : No Smoking Status : Never smoker ZURDO GONZALEZ 03/22/2012 16:55 HEMATOLOGY NURSE EDUCATOR Caffeine Use Grid Caffeine Use : Current Type : Energy drinks Frequency : Weekly Amount : 1 ZURDO GONZALEZ 03/22/2012 16:55 HEMATOLOGY NURSE EDUCATOR Allergy Allergies (Active) NKA Estimated Onset Date: Unspecified ; Created By: SOTERO COLEMAN LPN; Reaction Status: Active ; Category: Drug ; Substance: NKA ; Type: Allergy ; Updated By: SOTERO COLEMAN LPN; Source: Family ; Reviewed Date: 03/04/2012 10:18 HEMATOLOGY NURSE EDUCATOR Source: [facility] POWERCHART Document Id: [id number] documented in this encounter Plan of Treatment Not on filedocumented as of this encounter Visit Diagnoses Not on filedocumented in this encounter Additional Health Concerns Assessment Noted Time PHQ-9 Depression Total Score: 18 06/21/2009 11:24 AM C DT documented as of this encounter
--- OUTSIDE RECORDS SUMMARY | 2021-11-28 09:17 | XMS_ITS | Encounter Summary ---
:1985 Author Organization [facility] Address [address] [place] [address] Care Team Providers Name Role Phone Kandi Alberts APRN C.NGordonPGordon Primary Care Provider [phone] Reason for Visit Reason Comments Abdominal Pain with nausea x 2 weeks Back Pain chronic getting worse Encounter Details Date Type Department Care Team Description 06/29/2017 Office Visit Department of Family [facility] Pap Smear Examination (Primary Dx); Medicine, Marisel Mcgregor, [facility], in [place] [address] [place] [id number] Social History Tobacco Use Types Packs/Day [...] How often do you attend taoism or uatsdin Never 01/31/2019 services? 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 - 06/29/2017 11:15 AM CDT Please inform Wendi that she has a vaginal infection, not necessarily sexually transmitted. Other tests are pending. She needs an antibiotic twice daily for one week. She still needs to update me on Sunday. Radha Delacruzah Ervin - 06/29/2017 11:15 AM CDT CHIEF COMPLAINT/ REASON FOR VISIT Lower abdominal pain. HISTORY OF PRESENT ILLNESS Wendi Odonnell is a 32 y.o. female who presents to the clinic today for lower abdominal pain. About two weeks ago Wendi had the sudden onset of pain across her lower abdomen; this is intermittent and squeezing in nature. It is associated with nausea warmth and sweatiness. It seems to be worsened by eating which also precipitates the nausea. She does not have diarrhea or constipation. Has had no bloodin her stools. She has been on control pill now for several months and doesn???t believe that she could be . Her last menstrual period was 06/14. She has had no unusual vaginal discharge orodor. She has had possible STD exposure. The patient denies any additional questions or concerns at this time. SYSTEMS REVIEW Please see HPI for pertinent positives, otherwise rest of ROS negative. MEDICATIONS Current Outpatient Prescriptions Medication Sig Dispense Refill ??? buPROPion (WELLBUTRIN SR) 200 mg 12 hr tablet Take 1 tablet by mouth every AM ??? FLUoxetine (PROzac) 20 mg capsule Take 1 capsule by mouth every AM after solid food ??? gabapentin (NEURONTIN) 300 mg capsule Take 300 mg by mouth. ??? norgestimate-ethinyl estradiol (ORTHO-CYCLEN) 0.25- mg-35 mcg per tablet Take 1 tablet by mouth. ??? tiZANidine (ZANAFLEX) 2 mg tablet 1 tab up to three times daily, use mostly at night for muscle relaxer. May make you drowsy. ??? azithromycin (ZITHROMAX) 250 mg tablet Take 4 tablets all at once one time. 6 tablet 0 ??? metroNIDAZOLE (FLAGYL) 500 mg tablet Take 1 tablet (500 mg total) by mouth 2 (two) times a day for 7 days. 14 tablet 0 No current facility-administered medications for this visit. ALLERGIES Allergies Allergen Reactions ??? Benzodiazepines Other (see comments) Alcohol abuse or dependence; impulsive suicide attempts AVOID these and narcotics when possible. ??? Morphine Edema and Other (see comments) Facial swelling and reddness PAST MEDICAL / SURGICAL HISTORY Past Medical History: Diagnosis Date ??? Dependence Alcohol (HCC) ??? Depression Major Recurrent Without Psychotic Features (HCC) Past Surgical History: Procedure Laterality Date ??? DILATION AND CURETTAGE OF UTERUS N/A 07/28/2003 D&C - Dilatation and curettage PREVENTIVE SERVICES Social History Substance Use Topics ??? Smoking status: Never Smoker ??? Smokeless tobacco: Never Used ??? Alcohol use 1.8 oz/week 3 Glasses of wine per week VITAL SIGNS Vitals: 06/29/17 1150 BP: 120/70 Pulse: 92 Temp: 36.4 ??C Resp: 20 Height: 162 cm Weight: 57.3 kg TempSrc: Temporal Body mass index is 21.83 kg/m??. PHYSICAL EXAMINATION General: Patient is alert and oriented times three, in no acute distress, good hygiene and is dressed appropriately. Genitalia: External genitalia without lesions. She has quite a bit of discomfort with manipulation of the speculum. There is a physiologic appearing discharge; samples taken for Pap smear with HPV, vaginitis panel and Chlamydia/gonorrhea screening. On bimanual exam there significant cervical motion tenderness. I am not able to definitively palpate either the left or right ovary but she has a great deal of tenderness in these areas especially the right. DIAGNOSTICS LABORATORY: Pap smear with HPV results: pending. Vaginitis panel and chlamydia/gonorrhea screening results: pending. UA with culture results: pending. Urine test results: negative. CBC with diff results: pending. ASSESSMENT / PLAN #1 Pelvic pain in the setting of possible STD exposure With the cervical motion tenderness we elect to treat presumptively with Rocephin and Azithromycin. Other test results are pending, will treat if positive. She will update me on 07/02. If she continues to have symptoms will consider pelvic ultrasound vs CT scan. Follow up The patient will contact the clinic with any new or worsening symptoms. This document serves as a record of services personally performed by Marisel Brush MD. It was created on their behalf by Jahaira Delacruz, a trained medical research associate. The creation of this record is based on the scribe's personal observations and the provider's statements to them. This document has been josselin cked and approved by the attending provider. documented in this encounter Plan of Treatment Not on filedocumented as of this encounter Procedures Procedure Name Priority Date/Time Associated Diagnosis Comme nts URINALYSIS WITH Routine 06/29/2017 1:16 PM Pain Pelvic Female Results for this MICROSCOPIC IF CDT procedure are in INDICATED, U the results section. BACTERIAL CULTURE, Routine 06/29/2017 1:16 PM Pain Pelvic Fema le Results for this AEROBIC + SUSC, CDT procedure ar e in URINE the results section. TEST, Routine 06/29/2017 1:16 PM Pain Pelvic Female Results for this POCT, U (LAB) CDT procedure are in the results section. VAGINITIS PANEL Routine 06/29/2017 1:15 PM Pain Pelvic Female Results for this CDT procedure are i n the results section. CHLAMYDIA/GONORRHOEA Routine 06/29/2017 1:15 PM Pain Pelvic Fe male Results for this E AMPLIFIED RNA CDT procedure ar e in the results section. THINPREP SCREEN HPV Routine 06/29/2017 1:13 PM Pap Smear Re sults for this REFLEX CDT Examination procedure are i n the results section. CBC WITH Routine 06/29/2017 1:11 PM Results f or this DIFFERENTIAL, B CDT procedure ar e in the results section. documented in this encounter Results Test, POCT, Urine (lab) (06/29/2017 1:16 PM CDT) athologist Signature Negative 06/29/2017 [facility] Test, POCT, U 1:[address] [facility] Specimen Anatomical Collection Method Collection Time Receive d Time (Source) Location / / Volume Laterality Urine (Urine, 06/29/2017 1:16 PM 06/30/19 18 1:16 Clean Catch) CDT PM CDT Marisel Ferrer M.D. LAB POCT ORDERABLES - DEVICE Performing Organization Address City/State/[facility] Code Phon e Number [facility]- [address] [place] [address] [facility]- [address] [place] [address] [place] [facility] Urinalysis with Microscopic if Indicated (06/29/2017 1:16 PM CDT) athologist Signature Source Midstream 06/29/2017 [facility] 1:[address] [facility] LAB Clarity Clear Clear 06/29/2017 [facility] 1:[address] [facility] Spot [facility] LAB Color Yellow 06/29/2017 [facility] 1:20 PM CDT [facility] Comment: ----REFERENCE VALUE---- Colorless Yellow Wendi Blood Negative Negative 06/29/2017 1:20 PM CDT [facility] B Nitrite Negative Negative 06/29/2017 1:20 PM CDT [facility] [place] [facility] Leukocyte Esterase Negative Negative 06/29/2017 1:20 PM CD T [facility] [place] B Protein Negative mg/dL 06/29/2017 1:20 PM CDT [facility] [place] [facility] Comment: ----REFERENCE VALUE---- Negative Trace Glucose Negative Negative mg/dL 06/29/2017 1:20 PM [facility] CDT SYSTEM- [place] [facility] Ketones, QI(U) Negative Negative mg/dL 06/29/2017 1:20 PM [facility] [place] [facility] Bilirubin Negative Negative 06/29/2017 1:20 PM [facility] pH 6.5 5.0 - 8.0 06/29/2017 1:20 PM [facility] Specific [place] 1.015 1.001 - 1.035 06/29/2017 1:20 PM [facility] Urobilinogen 0.2 0.2 - 1.0 mg/dL 06/29/2017 1:20 PM [facility] [place] [facility] Specimen Anatomical Collection Method Collection Time Receive d Time (Source) Location / / Volume Laterality Urine (Urine, 06/29/2017 1:16 PM 06/30/19 1:16 Clean Catch) CDT PM CDT Marisel Ferrer M.D. LAB URINE ORDERABLES Performing Organization Address City/[facility]/ZIP Code Phon e Number [facility]- [address] [place] [id number] [place] [facility]- [address] [place] [address] 21[facility] Bacterial Culture, Aerobic + Susc, Urine (06/29/2017 1:16 PM CDT) [facility] gist Method Time Signature Bacterial No growth 06/30/2017 [facility] Culture, after 1 day 4:22 PM CDT [facility] Aerobic, Urine of SYSTEM- [facility] LAB Specimen Anatomical Collection Method Collection Time Receive d Time (Source) Location / / Volume Laterality Urine (Urine) 06/29/2017 1:16 PM 06/30/19 CDT 11:56 PM CDT Comment: Specimen Source Site: Urine Marisel Ferrer M.D. LAB MICROBIOLOGY - GEN ERAL ORDERABLES Performing Organization Address City/State/ZIP Code Phon e Number [facility] [address] [place] [address] LAB (ABNORMAL) Vaginitis Panel - [facility] (06/29/2017 1:15 PM CDT) [employer] Method Time Signature Nichol Negative Negative 06/29/2017 [facility] species, DNA 2:[address] [facility] Gardnerella Positive (A) Negative 06/29/2017 [facility] vaginalis, DNA 2:41 PM CDT [facility] Trichomonas Negative Negative 06/29/2017 [facility] vaginalis, DNA 2:41 PM CDT [facility] Specimen Anatomical Collection Method Collection Time Receive d Time (Source) Location / / Volume Laterality Swab (Vagina) 06/29/2017 1:15 PM 06/30/19 18 1:28 CDT PM CDT Marisel Ferrer M.D. LAB MICROBIOLOGY - GEN ERAL ORDERABLES Performing Organization Address City/State/ZIP Code Phon e Number [facility]- [address] [place] [address] [address] [address] LAB [facility]- [address] [place] [address] [facility] LAB (ABNORMAL) Chlamydia / gonorrhoeae Amplified RNA (06/29/2017 1:15 PM CDT) [employer] Method Time Signature Source vaginal 07/02/2017 [facility] 11:18 AM CDT [facility] Chlamydia Positive (A) Negative 07/02/2017 [facility] trachomatis 11:18 AM CDT [employer] RNA [facility] Comment: ----ADDITIONAL INFORMATION---- This report is intended for use in clini kehinde monitoring and management of patients. It is not in tended for use in medical-legal applications. Source VAGINA 07/02/2017 11:18 AM [place] the grafterI C [employer] CDT [facility] Neisseria gonorrhoeae Negative Negative 07/02/2017 11:18 A M [facility] [employer] amplified RNA CDT [facility] Comment: ----ADDITIONAL INFORMATION---- This report is intended for use in clini kehinde monitoring and management of patients. It is not in tended for use in medical-legal applications. Semi-Urgent This is a semi-urgent result ([place]) [facility] LAB Specimen Anatomical Collection Method Collection Time Receive d Time (Source) Location / / Volume Laterality Varies 06/29/2017 1:15 PM 8 (Cervix/Endocerv CDT 11:55 PM CD T ix) Marisel Ferrer M.D. LAB MICROBIOLOGY - GEN ERAL ORDERABLES Performing Organization Address City/State/ZIP Code Phon e Number [facility] [address] [place] [address] LAB ThinPrep Screen HPV Reflex (06/29/2017 1:13 PM CDT) Component Value Ref Test Analysis Performed Pathologis t Range Method Time At Signature 07/10/2017 [facility] 1:00 PM HEALTH CDT [facility] CYTOLOGY Report Tae Owusu MD 07/10/2017 [facility] electronically I verify that I have examined all relevant slides/ma terials 1:00 PM HEALTH signed by for the specimen(s) and rendered or confirmed the diagnosi s. CDT SYSTEM- [facility] CYTOLOGY Gross Description Received specimen 07/10/2017 [facility] in a ThinPrep 1:00 PM HEALTH vial. CDT SYSTEM- [facility] CYTOLOGY Pap Test Source Cervical/Endocervi 07/10/2017 [facility] kehinde 1:00 PM HEALTH CDT SYSTEM- BLUE CYTOLOGY Clinical History having periods 07/10/2017 [facility] 1:00 PM HEALTH CDT SYSTEM- BLUE CYTOLOGY Menstrual lmp 06/17/2017 07/10/2017 [facility] Status(LMP, PM, 1:00 PM HEALTH ) CDT SYSTEM- BLUE CYTOLOGY Hormone control 07/10/2017 [facility] Therapy/Contracep 1:00 PM HEALTH tives CDT SYSTEM- BLUE CYTOLOGY Interpretation Cervical/Endocervical ??(ThinPrep): 07/10/2017 [facility] Satisfactory for Evaluation 1:00 PM HE ALTH Negative for Intraepithelial Lesion or Malignancy CDT SYSTEM- Reactive cellular changes associated with: [place] ? Reparative or inflammatory changes CYTOLOGY Shift in sumeet suggestive of bacterial vaginosis Specimen Anatomical Collection Method Collection Time Receive d Time (Source) Location / / Volume Laterality Varies 06/29/2017 1:13 PM 8 8:17 (Cervix/Endocerv CDT AM CDT ix) Narrative This result has an attachment that is no t available. Marisel Ferrer M.D. LAB PAP PATHDX ORDERAB LES Performing Organization Address City/State/ZIP Code Phon e Number [facility] [address] [place] [address] CYTOLOGY (ABNORMAL) CBC with Differential, Blood (06/29/2017 1:11 PM CDT) [facility] Method Time Signature Hemoglobin 11.7 11.6 - 06/29/2017 [facility] 15.0 g/dL 3:48 PM CDT [facility] [place] [facility] Hematocrit 35.3 (L) 35.5 - 06/29/2017 [facility] 44.9 % 3:[address] [facility] [place] [facility] Erythrocytes 3.99 3.92 - 06/29/2017 [facility] 5.13 3:48 PM CDT HEALTH x10(12)/L [facility]- [place] [facility] MCV 88.5 78.2 - 06/29/2017 [facility] 97.9 fL 3:[address] [facility] [place] [facility] RBC Distrib Width 13.0 12.2 - 06/29/2017 [facility] 16.1 % 3:48 PM CDT [facility] [place] [facility] Platelet Count 175 157 - 371 06/29/2017 [facility] x10(9)/L 3:[address] [facility] [place] [facility] Leukocytes 5.5 3.4 - 9.6 06/29/2017 [facility] x10(9)/L 3:[address] [facility] [place] [facility] Neutrophils 2.93 1.56 - 06/29/2017 [facility] 6.45 3:53 PM CDT HEALTH x10(9)/L SYSTEM- [place] [facility] Lymphocytes 1.98 0.95 - 06/29/2017 [facility] 3.07 3:53 PM CDT HEALTH x10(9)/L [facility]- [place] [facility] Monocytes 0.51 0.26 - 06/29/2017 [facility] 0.81 3:53 PM CDT HEALTH x10(9)/L [facility]- [place] [facility] Eosinophils 0.01 (L) 0.03 - 06/29/2017 [facility] 0.48 3:53 PM CDT HEALTH x10(9)/L [facility]- [place] [facility] Basophils 0.08 0.01 - 06/29/2017 [facility] 0.08 3:53 PM CDT HEALTH x10(9)/L [facility]- [place] [facility] Specimen Anatomical Collection Method Collection Time Receive d Time (Source) Location / / Volume Laterality Blood 06/29/2017 1:11 PM 8 3:45 CDT PM CDT Marisel Ferrer M.D. LAB BLOOD ADD-ON Performing Organization Address City/State/ZIP Code Phon e Number [facility] [address] [place] [address] LAB documented in this encounter Visit Diagnoses Diagnosis Pap Smear Examination - Primary Pain Pelvic Female documented in this encounter Administered Medications Inactive Administered Medications - up to 3 most recent administrations Medication Order MAR Action Action Date Dose Rate Site cefTRIAXone injection 250 Given 06/29/2017 1:07 PM 250 mg Right Upper Arm mg (ROCEPHIN) CDT 250 mg, intravenous, Once, On Sun06/29/17 at 1315, For 1 dose, Drug Monitoring Program: Pharmacist to adjust medication order based on comorbities and indication., Indications: Sexually transmitted infection documented in this encounter Additional Health Concerns Assessment Noted Time PHQ-9 Depression Total Score: 9 06/29/2017 11:57 AM CD T documented as of this encounter Care Teams Medical Economics Consultant Relationship Specialty Start Date End Date Kandi Alberts, TATY, C.N.P. PCP - General 07/27/16 07/10/[address] [place] [address] documented as of this encounter
--- OUTSIDE RECORDS SUMMARY | 2021-11-28 09:17 | XMS_ITS | Encounter Summary ---
:1985 Author Organization [facility] Address [address] [place] [address] Care Team Providers Name Role Phone Kandi Alberts APRN, C.N.P. Primary Care Provider [phone] Encounter Details Date Type Department Care Team Description 07/03/2017 Clinical Communication Department of [facility] Ni Alberts, Medicine, [place] TATY, C.N.P. [facility], [place] [address] [place], [place] [address] [address] [place], [place] [phone] [address] (Work) [phone] Social History Tobacco Use Types Packs/Day Years [...] 11/27/2019 relatives? How often do you attend rastafari or restorationism Never 01/31/2019 services? 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 PCP - General 07/27/16 07/10/18 [address], [place] [address] documented as of this encounter
--- OUTSIDE RECORDS SUMMARY | 2021-11-28 09:17 | XMS_ITS | Encounter Summary ---
:1985 Author Organization [facility] Address [address] [place] [address] Care Team Providers Name Role Phone Kandi Alberts APRN C.N.PGordon Primary Care Provider [phone] Encounter Details Date Type Department Care Team Description 07/03/2017 Clinical Communication Department of [facility] Jone Ellison, Medicine, [facility]GordonPGordonNGordon [facility], [facility] [address] [place] [address] [place], [place] [phone] [address] (Work) [phone] Social History Tobacco Use Types Packs/Day Years [...] How often do you attend evangelical or jew Never 01/31/2019 services? 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 Copy of advisement from dr hedrick mailed to patient per her request Telephone Encounter - Kourtney Ellison L.P.N. - 07/03/2017 4:59 PM CDT Voicemail left for patient to return call to clinic for test results documented in this encounter Plan of Treatment Not on filedocumented as of this encounter Visit Diagnoses Not on filedocumented in this encounter Additional Health Concerns Assessment Noted Time PHQ-9 Depression Total Score: 9 06/29/2017 11:57 AM CD T documented as of this encounter Care Teams Box Stapler Relationship Specialty Start Date End Date Kandi Alberts, INSTITUTE DIRECTOR, C.N.P. PCP - General 07/27/16 07/10/[address] [id number] documented as of this encounter
--- OUTSIDE RECORDS SUMMARY | 2021-11-28 09:17 | XMS_ITS | Encounter Summary ---
:1985 Author Organization [facility] Address [address] [place] [address] Care Team Providers Name Role Phone Unavailable Primary Care Provider Unavailable Encounter Details Date Type Department Care Team Description 05/21/2012 Hospital Encounter HX [facility] Shayne Woody M.D. [address] [place], [place] [phone] (Wo rk) Social History [...] 11/27/2019 relatives? How often do you attend adventism or jew Never 01/31/2019 services? 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 - 05/21/2012 3:15 PM CDT [id number] CHIEF COMPLAINT/REASON FOR VISIT Nausea and abdominal pain. HISTORY OF PRESENT ILLNESS Wendi is 27-year-old para 2-0-3-2 female who is 8 weeks postop status post repeat section who presents today with complaints of nausea and abdominal pain for the last three days. She states that she thinks she has a gastroenteritis that is likely infectious and will resolve on its own, but she needed to come in because her work is requiring her to have a doctor's note. She states that these symptoms started three days ago. In general, she describes that she does not feel well. She has a headache and generalized fatigue and malaise. She also states that she has stomach pains that seem to beworse in the morning and she feels this in the center of her abdomen toward the upper abdomen. She describes this as achy and sharp. It seems worse in the mornings, seems to get better during the middle of the day and then gets worse in the evenings again. She also has associated diarrhea. She has nausea with this but has had no vomiting. She is not able to eat without worsening of her symptoms but she is able to tolerate liquids just fine. She states that her son seems to be coming down with something similar. She denies any fevers but she has had chills associated with this. The patient has not yet been in for her visit but states that she has some yellowish discharge that is occasionally pinkish tinged. She wonders whether this is normal following her . CURRENT MEDICATIONS 1. Fluoxetine 60 mg by mouth daily. 2. vitamin 1 tablet by mouth daily. ALLERGIES No known drug allergies. SYSTEMS REVIEW GENERAL: No fevers, unintentional weight loss or weight gain. Positive for chills and fatigue related to this illness. HEENT: No changes in vision or hearing, no sore throat or nasal congestion. CARDIOVASCULAR: No chest pain, irregular heartbeat or racing heart. RESPIRATORY: No shortness of breath, cough or wheeze. GASTROINTESTINAL: No vomiting or constipation. Positive for nausea, diarrhea and abdominal pain - see HPI. GENITOURINARY: No pain or burning with urination, no irregular vaginal bleeding, heavy periods, painful periods, leaking stool or gas. Positive for abnormal vaginal discharge - see HPI, and occasional leaking urine. SKIN: No rashes or skin lesions. BREASTS: No masses or lumps, no discharge from the nipples. NEURO: No difficulty with memory, numbness, tingling, falls. PSYCHE: Positive for history of anxiety, depression and difficulty sleeping. ENDOCRINE: Positive for heat intolerance, cold intolerance and excessive thirst related to this recent illness and hair loss . VITAL SIGNS WEIGHT: 55.7 kg PULSE: 72 BLOOD PRESSURE: 118/60 TEMPERATURE: 37.0 PHYSICAL EXAM GENERAL: Well nourished female in no acute distress. HEENT: Vision and hearing grossly intact. HEART: Regular rate rhythm. No murmurs, rubs or gallops. CHEST: Clear to auscultation bilaterally, no wheezes or rales. ABDOMEN: Soft, nondistended, normoactive bowel sounds, tenderness to palpation, greatest in the epigastric area and extending slightly inferiorly toward the umbilicus but nontender otherwise, no rebound or guarding, no masses palpable EXTREMITIES: Lower extremities: Nontender, no edema. IMPRESSION/REPORT/PLAN 27-year-old para 2-0-3-1 female 8 weeks postop status post repeat low transverse section with likely viral gastroenteritis. 1. Viral gastroenteritis: Based on the patient's description of symptoms including headache, fatigue, malaise, abdominal pain with diarrhea and nausea, this is likely a viral gastroenteritis. She is afebrile today and is able to tolerate liquids without a lot of difficulty. I have given her a work excuse through May 23. She was informed that if her symptoms are not improving by she needs to come back and see me again. Otherwise, she should be able to return to work by Sunday. She was encouraged to continue her good intake of liquids and to return to the clinic or emergency department if she has significant worsening of her abdominal pain, fever greater than 100.4 or stops passing flatus or bowel movements. The patient was tender in the epigastric area and so I am going to prescribe omeprazole 20 mg by mouth daily to treat a possible gastritis. 2. Follow up: The patient will return in the near future for visit. If she has any questions or concerns prior to that time she should call the clinic. Emmy Shannon M.D./laurie Electronically Signed By: EMMY SHANNON MD On: 05/23/2012 01:35 PM Modified by and Electronically Signed by: EMMY SHANNON MD On: 05/23/2012 01:35 PM Source: [facility] MHSDOLBEYNONRADSYS Document Id: [id number] documented in this encounter Miscellaneous Notes Miscellaneous - Conversion, Historical Provider Ser - 08/05/2012 9:13 AM CDT Medication Refill Msg Document Contains Addenda Addendum by TERESA SHEFFIELD on 05 August 2012 11:06:35 CDT Patient informed. Addendum by TERESA SHEFFIELD on 05 August 2012 11:05:13 CDT Done. Addendum by EMILY GOMEZ MD on 05 August 2012 10:03:12 CDT From: EMILY GOMEZ MD To: TERESA SHEFFIELD; Sent: 08/05/2012 10:03:12 CDT Subject: RE: Medication Refill Msg call in please Addendum by EMILY GOMEZ MD on 05 August 2012 10:03:00 CDT Submitted: Order:hydrocodone-acetaminophen (Peters[place] 5 mg-325 mg oral tablet) 1 tab(s) PO q4hr Qty: 30 tab(s) Refills: 1 Substitutions Allowed PRN Pain Don't Print - called to pharmacy (Rx) No more than 4,000mg acetaminophen/24hrs Signed by EMILY GOMEZ MD From: TERESA SHEFFIELD To: EMILY GOMEZ MD; Sent: 08/05/2012 09:13:40 CDT Subject: Medication Refill Msg Caller is: ( ) Patient ( ) Mother ( ) Father ( ) Spouse ( ) Daughter ( ) Son ( ) Pharmacy ( ) Other: Provider: [facility]: [facility] fax# [phone] # [phone] Name of Medications Needing Refill: Petersburg 5/325mg tab - called patient, states she has been working a lot of overtime and having incisional pain from lifting at work. 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 - 05/21/2012 4:21 PM CDT Ambulatory [place] [address] Visit Information Name: WENDI ODONNELL [facility] Number: [id number] Visit Date: 05/21/2012 16:21:15 Attending Provider: EMMY SHANNON MD Primary Care [...] medications. Medication/Strength Dose Route Frequency Indications/Special Instructions/Comments omeprazole (omeprazole 20 mg oral delayed release capsule) 20 mg Oral once a day fluoxetine (FLUoxetine 60 mg oral tablet) 60 mg Oral once a day (in the morning) multivitamin, ( Multivitamins oral tablet) 1 tab(s) Oral once a day Attention: If you have any medications at home that are not on this list, DO NOT take them until youcontact your provider for clarification. Additional Information: Source: [facility] POWERCHART Document Id: [id number] Ori - Emmy Shannon M.D. - 05/21/2012 4:21 PM CDT Ambulatory [place] [address] Visit Information Name: WENDI ODONNELL [facility] Number: [id number] Visit Date: 05/21/2012 16:21:15 Attending Provider: EMMY SHANNON MD Primary Care [...] medications. Medication/Strength Dose Route Frequency Indications/Special Instructions/Comments omeprazole (omeprazole 20 mg oral delayed release capsule) 20 mg Oral once a day fluoxetine (FLUoxetine 60 mg oral tablet) 60 mg Oral once a day (in the morning) multivitamin, ( Multivitamins oral tablet) 1 tab(s) Oral once a day Attention: If you have any medications at home that are not on this list, DO NOT take them until youcontact your provider for clarification. Additional Information: Source: [facility] POWERCHART Document Id: [id number] Ori - Emmy Shannon M.D. - 05/21/2012 3:52 PM CDT School or Work Excuse School or Work Excuse Entered On: 05/21/2012 15:54 CDT Performed On: 05/21/2012 15:52 CDT by EMMY SHANNON MD School or Work Excuse Date Patient Seen : 05/21/2012 CDT Date of Return to School/Work Without Restrictions : 05/24/2012 CDT Comment : Wendi has been ill since 05/19/12 and was seen in my office for evaluation of her illness today. She should be able to return to work on 05/24/12. Please excuse her from work until then. EMMY SHANNON MD - 05/21/2012 15:52 CDT Source: [employer] 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 Entered On: 05/21/2012 15:24 CDT Performed On: 05/21/2012 15:23 CDT by CHIKA LEUNG Intake Chief Complaint : nausea and abd pain Peripheral Pulse Rate : 72 /min Systolic Blood Pressure : 118 mmHg Diastolic Blood Pressure : 68 mmHg NIBP Mean : 85 mmHg BP Location : Right upper extremity Blood Pressure Cuff Size : Regular Actual Weight : 55.7 kg(Converted to: 122 lb 13 oz) Dosing Weight Clinic : 55.7 kg CHIKA LEUNG - 05/21/2012 15:23 CDT General Info Languages : Kazakh CHIKA LEUNG - 05/21/2012 15:23 CDT Subjective Pain Symptoms : No CHIKA LEUNG - 05/21/2012 15:23 CDT Dependent Habits Tobacco Use/Currently Using : No Smoking Status : Unknown if ever smoke CHIKA LEUNG - 05/21/2012 15:23 CDT Caffeine Use Grid Caffeine Use : Current Type : Energy drinks Frequency : Weekly Amount : 1 CHIKA LEUNG - 05/21/2012 15:23 CDT Source: [employer] Document Id: [id number] CDT!24 documented in this encounter Plan of Treatment Not on filedocumented as of this encounter Visit Diagnoses Not on filedocumented in this encounter Additional Health Concerns Assessment Noted Time PHQ-9 Depression Total Score: 18 06/21/2009 11:24 AM C DT documented as of this encounter
--- OUTSIDE RECORDS SUMMARY | 2021-11-28 09:17 | XMS_ITS | Encounter Summary ---
:1985 Author Organization [facility] Address [address] [place] [address] Care Team Providers Name Role Phone Unavailable Primary Care Provider Unavailable Encounter Details Date Type Department Care Team Description 08/19/2013 Hospital Encounter HX NO MAPPING Nathen Sauceda M. D. Social History Tobacco Use Types Packs/Day Years [...] 11/27/2019 relatives? How often do you attend orthodoxy or sabianist Never 01/31/2019 services? 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
--- OUTSIDE RECORDS SUMMARY | 2021-11-28 09:17 | XMS_ITS | Encounter Summary ---
:1985 Author Organization [facility] Address [address] [place] [address] Care Team Providers Name Role Phone Unavailable Primary Care Provider Unavailable Encounter Details Date Type Department Care Team Description 08/18/2013 Hospital Encounter HX [facility] Gurmeet Robertson Jr., M.D. [address], [place] [phone] (Wo rk) Social History [...] 11/27/2019 relatives? How often do you attend gnosticist or quaker Never 01/31/2019 services? 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 - 08/18/2013 11:13 AM CDT [id number] CHIEF COMPLAINT/REASON FOR VISIT Follow up for vaginal bleeding during . HISTORY OF PRESENT ILLNESS Wendi is 28-year-old 6, para 2-0-3-2 female at unknown gestational age who presents to the clinic for follow up for vaginal bleeding during . Wendi was seen at [facility] ED for heavy vaginalbleeding and cramping approximately 2.5 weeks ago. Vaginal bleeding did stop after this visit, but follow up ultrasound with me on 08/14/2013 indicated no cardiac activity. Wendi states that she started to have vaginal bleeding again today, which started this morning. She has also had some diarrhea, and she has continued to have abdominal cramping. 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 Her last miscarriage was 04/2012, and this did not require any surgical manag ement. Wendi is currently on Zoloft 50 mg 1 tab PO daily for management of depression. She states that this is not working well for her, and she has done better previously on Effexor and fluoxetine. MEDICATIONS Zoloft, 50 mg 1 tab PO daily. Discontinued today. vitamin 1 tablet by mouth daily. Ortho Cyclen 0.25 mg-35 mcg 1 tab PO daily. Prescribed today. Anaprox-DS 550 mg 1 tab PO tid PRN cramping. Prescribed today. Methergine 0.2 mg 1 tab PO tid starting at 6 pm on 08/19/2013. Prescribed today. Effexor 37.5 mg 1 tab PO bid. Prescribed today. ALLERGIES Morphine causes rash, itching, and swelling. SYSTEMS REVIEW Please see HPI, otherwise all [...] x3, with one requiring treatment with D&C. SOCIAL HISTORY No tobacco use. VITAL SIGNS WEIGHT: 61.2 kg. PULSE: 80/min. BLOOD PRESSURE: 118/68. PHYSICAL EXAMINATION GENERAL: Patient appears well groomed and well nourished. No acute distress. Oriented times three. HEENT: Vision and hearing are grossly normal. THYROID: No thyromegaly. Normal in contour. LUNGS: Clear to auscultation with good inspiratory effort. No wheeze. HEART: Regular rate and rhythm with no murmurs, rubs or gallops. No evidence of any vascular disease. ABDOMEN: Soft, nontender. No hepatosplenomegaly. No groin hernias. PELVIS: Vagina appears normal with a small amount of blood present in posterior vaginal fornix. Cervix is closed, uterus palpates about 8 weeks size. Transvaginal ultrasound performed today: gestational sac is seen, no cardiac activity is visualized, growth is unchanged from ultrasound 4 days ago, please see separate report for details. IMPRESSION/REPORT/PLAN [age] year old 6, para 2-0-4-2 female with spontaneous miscarriage. PLAN: 1. Spontaneous miscarriage: Patient is currently experiencing vaginal bleeding and cramping, and ultrasound today indicates nonviable with no cardiac activity no growth since ultrasound performed 4 days ago. Patient is Rh negative and she did receive RhoGAM at [facility] ED 2.5 weeks ago. Possible management options, including waiting to see if miscarriage resolves without interventionand treatment with D&C are discussed today. Risks for D&C, including bleeding, infection, and damage to internal organs are reviewed today. Patient agrees to proceed with hysteroscopic D&C,and this is scheduled for 08/19/2013. Surgical consent form is signed today. Anaprox-DS 550 mg 1 tab PO tid PRN is prescribed today for cramping. Methergine 0.2 mg 1 tab PO tid is also prescribed today, and patient will take this starting at 6 pm on 08/19/2013. She knows to be NPO 6 hours prior to procedure. Since patient has had two sequential miscarriages, possible options for evaluation, including labs are discussed today. These can be done after patients miscarriage has resolved. The patient understands that her miscarriage is not her fault, and there is nothing that could be done to change the outcome of this . A Return to Work Status note was given today. 2. Contraception: Ortho Cyclen 0.25 mg-35 mcg 1 tab PO daily is prescribed today, and patient will start this after her miscarriage resolves. She is encouraged to avoid conception for 2 months following miscarriage. She doesnt immediately want to pursue another . 3. Depression: Patient is currently on Zoloft 50 mg 1 tab PO daily, but this is not sufficiently managing her symptoms and is discontinued today. She has previously taken Effexor with good results. Patient is not planning on trying to conceive in the near future and would like to switch back to Effexor. Effexor 37.5 mg 1 tab PO bid is prescribed today. Patient will follow up with her psychiatrist forfurther medication management. 3. Follow up: Patient will present to [facility] for hysteroscopy with D&C on 08/19/2013. She will returnto the clinic for follow up in 3 weeks. This document serves as a record of services personally performed by Gurmeet Gomez MD. It was created on their behalf by Latanya Murray, a trained medical review specialist. The creation of this record is based on the scribe's personal observations and the provider's statements to them. This document has been ch ecked and approved by the attending provider. Gurmeet Gomez M.D./dilip Electronically Signed By: GURMEET GOMEZ MD On: 08/18/2013 04:03 PM Source: [facility] [id number] Document Id: [id number] documented in this encounter Miscellaneous Notes Miscellaneous - Gurmeet Gomez Jr., M.D. - 08/18/2013 12:01 PM CDT Return to Work Status Return to Work Status Entered On: 08/18/2013 12:01 CDT Performed On: 08/18/2013 12:01 CDT by GURMEET GOMEZ MD Return to Work Status Date/Time of Injury : 08/18/2013 12:01 CDT Work Injury : No Work Status : Return to work no restrictions Return to Work Start Date : 08/20/2013 CDT GURMEET GOMEZ MD - 08/18/2013 12:01 CDT Source: [facility] [employer] Document Id: [id number] CDT!6 Miscellaneous - Gurmeet Gomez Jr., M.D. - 08/18/2013 12:00 PM CDT Ambulatory Patient Summary [address] [id number] Visit Information Name: WENDI ODONNELL [facility] Number: [id number] Current Date: 08/18/2013 12:00:49 Physicians Attending Provider: GURMEET GOMEZ MD Primary Care Provider: PCP, ELSEWHERE [...] Take Indications/Special Instructions/Comments/Notes for Patient Medication Changes/Routing methylergonovine (Methergine 0.2 mg oral tablet) 1 Tablet(s), Oral, three times a day srtart at 6 pmon 08/19/13 New Routed to [address] [address] multivitamin, ( Multivitamins with Vitamin B Complex, Vitamin C, Minerals and L-Methylfolate oral capsule) 1 cap, Oral, once a day naproxen (Anaprox-DS 550 mg oral tablet) 1 Tablet(s), Oral, three times a day as needed for pain NewRouted to [address] [address] norgestimate-ethinyl estradiol (Ortho-Cyclen 0.25 mg-35 mcg oral tablet) 1 Tablet(s), Oral, once a day start on 08/20/2013 New Routed to [address] [address] venlafaxine (Effexor 37.5 mg oral tablet) 1 Tablet(s), Oral, two times a day Routed to [address] [address] Stop Taking the Following Medications: fluoxetine (FLUoxetine 60 mg oral tablet) sertraline (Zoloft) Medication list as of 08-18-13 12:00 Attention: If you have any medications at home that are not on this list, DO NOT take them until youcontact your provider for clarification. Give a copy of your medication list to your primary care provider. Update your medication list any time medications or doses are changed and carry your medication list at all times in case of emergency. Electronically Signed By: GURMEET GOMEZ MD Signed On:18-AUG-2013 12:00:44 Your Allergies & Intolerances Substance Reaction Symptoms [...] appointment detail needed. Your Goals/Additional instructions: Source: [facility] POWERCHART Document Id: [id number] Miscellaneous - Gurmeet Gomez Jr., M.D. - 08/18/2013 12:00 PM CDT Ambulatory Discharge Medication List [address] [id number] Visit Information Name: WENDI ODONNELL [facility] Number: [id number] Visit Date: 08/18/2013 12:00:47 Attending Provider: GURMEET GOMEZ MD Primary Care Provider: PCP, ELSEWHERE [...] Take Indications/Special Instructions/Comments/Notes for Patient Medication Changes/Routing methylergonovine (Methergine 0.2 mg oral tablet) 1 Tablet(s), Oral, three times a day srtart at 6 pmon 08/19/13 New Routed to [place] [id number] multivitamin, ( Multivitamins with Vitamin B Complex, Vitamin C, Minerals and L-Methylfolate oral capsule) 1 cap, Oral, once a day naproxen (Anaprox-DS 550 mg oral tablet) 1 Tablet(s), Oral, three times a day as needed for pain NewRouted to [address] [address] norgestimate-ethinyl estradiol (Ortho-Cyclen 0.25 mg-35 mcg oral tablet) 1 Tablet(s), Oral, once a day start on 08/20/2013 New Routed to [address] [address] venlafaxine (Effexor 37.5 mg oral tablet) 1 Tablet(s), Oral, two times a day Routed to [address] [address] Stop Taking the Following Medications: fluoxetine (FLUoxetine 60 mg oral tablet) sertraline (Zoloft) Medication list as of 08-18-13 12:00 Attention: If you have any medications at home that are not on this list, DO NOT take them until youcontact your provider for clarification. Give a copy of your medication list to your primary care provider. Update your medication list any time medications or doses are changed and carry your medication list at all times in case of emergency. Electronically Signed By: GURMEET GOMEZ MD Signed On:18-AUG-2013 12:00:44 Additional Information: Source: [facility] POWERCHART Document Id: [id number] Miscellaneous - Chika Napier, RGordonN. 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 Intake/History Adult Environmental Engineering Assistant Intake/History Entered On: 08/18/2013 11:30 CDT Performed On: 08/18/2013 11:29 CDT by CHIKA LEUNG Intake Chief Complaint : follow up ultrasound 6 5/7 weeks Systolic Blood Pressure : 130 mmHg Diastolic Blood Pressure : 60 mmHg NIBP Mean : 83 mmHg BP Location : Left upper extremity Blood Pressure Cuff Size : Regular Height : 162 cm(Converted to: 5 ft 4 inch(es), 64 inch(es)) Actual Weight : 61.4 kg(Converted to: 135 lb 6 oz) Dosing Weight Clinic : 61.4 kg Clinic BSA : 1.66 Body Mass Index : 23.4 kg/m2 CHIKA LEUNG - 08/18/2013 11:29 CDT General Info Languages : Tajik CHIKA LEUNG - 08/18/2013 11:29 CDT Subjective Pain Symptoms : No CHIKA LEUNG - 08/18/2013 11:29 CDT Dependent Habits Tobacco Use/Currently Using : No Smoking Status : Unknown if ever smoke CHIKA LEUNG - 08/18/2013 11:29 CDT Caffeine Use Grid Caffeine Use : Current Type : Energy drinks Frequency : Weekly Amount : 1 CHIKA LEUNG - 08/18/2013 11:29 CDT Source: [employer] Document Id: [id number] CDT!26 documented in this encounter Plan of Treatment Not on filedocumented as of this encounter Procedures Procedure Name Priority Date/Time Associated Diagnosis Comme nts SURGICAL PATHOLOGY Routine 08/19/2013 12:00 AM Re sults for this CDT procedure are i n the results section. documented in this encounter Results Pathology Surgical Pathology (08/19/2013 12:00 AM CDT) Specimen (Source) Anatomical Location Collection Method / Collectio n Time Received Time / Laterality Volume 08/19/[address] [facility] - 08/24/19 14 9:56 PM CDT PATIENT IMAGES Choose the Image button to view related documents. Historical Provider LAB SURG PATH ORDERABLES Performing Organization Address City/State/ZIP Code Phon e Number [facility] documented in this encounter Visit Diagnoses Not on filedocumented in this encounter Additional Health Concerns Assessment Noted Time PHQ-9 Depression Total Score: 18 06/21/2009 11:24 AM C DT documented as of this encounter
--- OUTSIDE RECORDS SUMMARY | 2021-11-28 09:17 | XMS_ITS | Encounter Summary ---
:1985 Author Organization [facility] Address [address] [place] [address] Care Team Providers Name Role Phone Kandi Alberts APRN, C.N.P. Primary Care Provider [phone] Encounter Details Date Type Department Care Team Description 06/29/2017 Clinical Communication Department of [facility] Ni Alberts, Medicine, [place] TATY, C.N.P. [facility], [place] [address] [place], [place] [address] [address] [place], [place] [phone] [address] (Work) [phone] Social History Tobacco Use Types Packs/Day Years [...] How often do you attend jewish or anglican Never 01/31/2019 services? 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 - 06/29/2017 2:47 PM [address]T Spoke with Dr. Brush and rx is to take 4 tablets at once. Contacted [facility] pharmacy and spoke to pharmacistAzul. Telephone Encounter - Brittney Bird - 06/29/2017 1:10 PM CDT Richard from [facility] in [place] calls to clarify instructions for Zithromax. documented in this encounter Plan of Treatment Not on filedocumented as of this encounter Visit Diagnoses Not on filedocumented in this encounter Additional Health Concerns Assessment Noted Time PHQ-9 Depression Total Score: 9 06/29/2017 11:57 AM CD T documented as of this encounter Care Teams Comb Tender Relationship Specialty Start Date End Date Kandi Alberts, UNISHEAR OPERATOR, C.N.P. PCP - General 07/27/16 07/10/18 [address] [phone] documented as of this encounter
--- OUTSIDE RECORDS SUMMARY | 2021-11-28 09:17 | XMS_ITS | Encounter Summary ---
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 the basement in which she missed epidural injection for her back appointment. She admittend to [facility] last night and ingested multiple medications for over the past couple of days. Patient came to the unit at approximately 2015, via ambulance accompanied by 2 EMS and a securityguard. She is wearing a paper scrubs. She is cooperative, polite, calm, and has a good eye contact. She looks disheveled and depressed. During interview, she states that she gained 20 lbs in the last month. She is living with her 2 kids, ages 3 and 7 years old, and a boyfriend - now ex- boyfriend. She states that her ex-boyfriend and her mom had a fight and when she came home her boyfriend packed and left the house. She then became very depressed. She had taken multiple medications over the course ofjun and including Lorazepam 6mg, hydrocodone 40mg, Acetaminophen 2,600mg, Methocarbam 10,000mg, Prednisone 1,600mg, Cephalexin 15,000mg, and 1/2 bottle of whiskey. Patient states that she drinks occasionally, specifically in the weekends or social events. She states she drinks 12 beers the most. Patient states that she doesn't get along with her mom. She states that her mom is a bitch and doesn't want to hear me whining. She reports that this is her second attempt to kill herself to overdose. Her first attempt was in 2011 with the same attempt in which she was admitted to [facility] in [place] for 3 days. Patient states that she is supposed to be starting to work tomorrow. Patient is seeing Marianna Escamilla at [facility]. She sees her once a month. Her PCP is Michael Schuster([facility]). Paitent states that she was taking Prozac 40 mg but made her drive a car to a tree. She states that Prozac was reduced to 20 mg and started a week ago. Per patient, she takes 0.5 mg of Lorazepam, PO, PRN, 2x/day, 20 mg of Prozac, PO, daily, and Cephalexin 500 mg 3x/day for staff infection - right butt checks rash. Per patient, she has been taking Cephalexin for 3 days now. Patient denies SI/HI at this time. She feels safe here. She contracts for safety. No hallucinations.She denies any pain. Denies any physical complaints. Patient reports that she has dislocated disc, RA on back, ulcers, and lumbar hernia. A: Provide emotional support. Encourage verbalization of feelings. Reassure patient that staff is available for safety. R: Pateint is in 72 hour hold. Explain BH folder including safety checks, unit expectations/policies, groups. Bills of Rights provided. She signed ALFREDO for Marianna Escamilla of [facility] (need to be faxed if needed). Patient didn't have lists of medicatios with her. Nurse called the [facility]- no records of medications found. Dr. Win is aware and ordered to hold off Cephalexin. Patient needs a tour on unit. Electronically Signed By: PRICE DEE RN On: 07/22/2015 11:19 PM Modified by and Electronically Signed by: PRICE DEE RN On: 07/22/2015 11:19 PM Source: [facility] POWERCHART Document Id: [id number] documented in this encounter Miscellaneous Notes Miscellaneous - Nya Rollins R.N. - 07/26/2015 1:15 PM CDT Valuables/Belongings Valuables/Belongings Entered On: 07/26/2015 13:39 CDT Performed On: 07/26/2015 13:15 CDT by NYA ROLLINS RN Valuables/Belongings Valuables/Belongings Grid Valuables at Bedside Valuables Sent to Secured Storage Clothes, Patient Valuables : Pants, Shirt, Undergarments, Other: 1 sweatshirt, sandals, toothpaste, deoderant, 3 tank tops, 2 shirts, 2 bras, 2 undergarments, 1 pair socks, 3 pants Shoes, Other: 1 pairof shorts with strings Electronic Devices : Cell phone NYA ROLLINS RN - 07/26/2015 13:39 CDT NYA ROLLINS RN - 07/26/2015 13:39 CDT Belongings Sent Home With : Patient and pt's father Home Medication Disposition : None brought in with patient NYA ROLLINS RN - 07/26/2015 13:39 CDT Source: [facility] Document Id: [id number] CDT!10 Miscellaneous - Conversion, Historical Provider Ser - 07/26/2015 1:15 PM CDT Coding Summary-Paper Based CODING DATE: 08/06/2015 FINAL [facility] STATUS: * Discharged to Home or Self Care PAYOR: Medicaid Grouper: 885 MS-DRG Psychoses ADMIT DX: F33.2 Major depressive disorder, recurrent severe without psychotic features REASON FOR VISIT DX: FINAL DX: PRINCIPAL: F33.2 Y Major depressive disorder, recurrent severe without psychotic features SECONDARY: F10.20 Y Alcohol dependence, uncomplicated K25.9 Y Gastric ulcer, unspecified as acute or chronic, without hemorrhage or perforation M06.9 Y Rheumatoid arthritis, unspecified M54.9 Y Dorsalgia, unspecified T42.4X2AY Poisoning by benzodiazepines, intentional self-harm, initial encounter T40.2X2AY Poisoning by other opioids, intentional self-harm, initial encounter T39.1X2AY Poisoning by 4-Aminophenol derivatives, intentional self-harm, initial encounter T42.8X2AY Poisoning by antiparkinsonism drugs and other central muscle-tone depressants, intentional self-harm, initial encounter T38.0X2AY Poisoning by glucocorticoids and synthetic analogues, intentional self-harm, initial encounter PROCEDURES DOCTOR NAME DATE NOTE: The code number assigned matches the documented diagnosis and / or procedure in the patient's chart. However, the narrative phrase printed from the coding software may appear abbreviated, or result in slightly different terminology. Revised Coded By: MARGARITA PETERS Revised Date Saved: 08/05/2015 07:46 am [facility] Document Id: [id number] Ori - Grayson Mejia - 07/26/2015 10:30 AM CDT Hospital Patient Education The following Patient Education Materials have been given to the patient: Patient Education Materials: Source: [facility] TextMaster Document Id: [id number] Ori - Nya Rollins R.N. - 07/26/2015 10:25 AM CDT Adult Ongoing Assessment Adult Ongoing Assessment Entered On: 07/26/2015 10:30 CDT Performed On: 07/26/2015 10:25 CDT by NYA ROLLINS RN Respiratory Respiratory Patient Stated Symptoms : None Respirations : Unlabored Distress : None Respiratory Pattern : Regular Cough : None NYA ROLLINS RN - 07/26/2015 10:25 CDT Cardiovascular CV Patient Stated Symptoms : None Antiembolism Device Yes/No : No Skin Color : Normal for ethnicity NYA ROLLINS RN - 07/26/2015 10:25 CDT Neurological Neuro Patient Stated Symptoms : None Orientation : Oriented x 3, Appropriate for age Level of Consciousness : Alert Gait : Steady Swallowing Difficulty/Aspiration Risk : None NYA ROLLINS RN - 07/26/2015 10:25 CDT Psycho/Emotional Affect/Behavior : Calm, Cooperative, Appropriate Pain Symptoms : No Feels Rested : Yes NYA ROLLINS RN - 07/26/2015 10:25 CDT Coping Grid Identifies effective strategies : Yes Uses effective strategies : Yes Reports increase in psychological comfort : Yes Indicates sense of control : Yes Stressors perceived within control : Yes Stable mood with appropriate affect : Yes Behaviors indicate use of coping mechanism : Yes Family supportive and involved in care : Yes Values/Beliefs incorporated appropriately : Yes NYA ROLLINS RN - 07/26/2015 10:25 CDT Safety Grid Vision, Hearing, Mobility Adequate to Meet Safety Needs : Yes NYA ROLLINS RN - 07/26/2015 10:25 CDT Psycho/Emotional Detailed Assessment : Yes SERGENYA LOMELI RN - 07/26/2015 10:25 CDT Psycho/Emotional Detailed Hallucinations Present : None Orientation : Oriented x 3, Appropriate for age Participates in Age-specific Activities : Yes Cognition : Adequate concentration, Judgement appropriate, Motivated for treatment, Cooperative with1:1 Behavior & General Appearance : Appropriate for situation, Social with peers and staff, interacts appropriately, ADLs self-initiated, No change in sleep, interest, energy level, appetite Behavior/Interaction with Peers/Staff Appropriate : Yes NYA ROLLINS RN - 07/26/2015 10:25 CDT Suicide Risk Re-Assessment Ongoing Behaviors/Threats of Harm to Self : No Behaviors/Threats of Harm to Others : No Do you have a plan for suicide? : No NYA ROLLINS RN - 07/26/2015 10:25 CDT Gastrointestinal GI Patient Stated Symptoms : None Bowel Movement Last Date : 07/24/2015 CDT NYA ROLLINS RN - 07/26/2015 10:25 CDT Genitourinary Patient Stated Symptoms : None NYA ROLLINS RN - 07/26/2015 10:25 CDT Integumentary Integumentary Patient Stated Symptoms : None SERGENYA LOMELI RN - 07/26/2015 10:25 CDT Skin Abnormality/Location Grid Location : Buttock Laterality : Right Abnormality : Rash NYA ROLLINS RN - 07/26/2015 10:25 CDT Ulices Sensory Perception Ulices : No impairment Moisture Ulices : Rarely moist Activity Ulices : Walks frequently Mobility Ulices : No limitations Nutrition Ulices : Excellent Friction and Shear Ulices : No apparent problem Ulices Score : 23 NYA ROLLINS RN - 07/26/2015 10:25 CDT Musculoskeletal Musculoskeletal Patient Stated Symptoms : None Activity Tolerance : Without distress NYA ROLLINS RN - 07/26/2015 10:25 CDT Hendrich II Fall Risk Confusion/Disorientation Hendrich : No Depression Fall Risk Hendrich : No Altered Elimination Fall Risk Hendrich : No Dizziness/Vertigo Fall Risk Hendrich : No Gender, Male Fall Risk Hendrich : No Prescribed Antiepileptics Hendrich : No Prescribed Benzodiazepines Hendrich : No Rising From Chair Fall Risk Hendrich : Able to rise in a single movement, no loss of balance with steps Fall Risk Score Hendrich II : 0 NYA ROLLINS RN - 07/26/2015 10:25 CDT Safe Patient Handling Safe Pt Handling Independent : Yes - No equipment needed Safe Pt Handling Equipment Rec : No Equipment Needed Repositioning Device Recommended : No NYA ROLLINS RN - 07/26/2015 10:25 CDT Education General Patient Education Powergrid Topics : Community resources, Discharge instructions/Medication list, Importance of follow-up visits, Plan of care Individuals Taught : Patient Barriers to Learning : None evident Teaching Method : Explanation Teaching Evaluation : Verbalizes understanding NYA ROLLINS RN - 07/26/2015 10:25 CDT Source: [facility] TechnologyCHART Document Id: [id number] CDT!90 Miscellaneous - Nya Rollins R.N. - 07/26/2015 10:24 AM CDT Adult Activities of Daily Living Adult Activities of Daily Living Entered On: 07/26/2015 10:24 CDT Performed On: 07/26/2015 10:24 CDT by NYA ROLLINS RN ADLs I Activity Status ADL : Up ad argenis Activity Assistance : Independent Assistive Device : None Ambulation Patient Effort : Good NYA ROLLINS RN - 07/26/2015 10:24 CDT ADLs II Elimination Assistance Offered Q2H : Independent Bowel Movement Last Date : 07/24/2015 CDT Standard Safety : Bed in low position, ID band check, Non-Slip footwear, Wheels locked, Other: 15 minute safety checks; camera monitoring NYA ROLLINS RN - 07/26/2015 10:24 CDT ADLs Adult Nutrition Lunch : 100 % BOXOCHILT WEISSH - 07/26/2015 13:00 CDT Diet Type : Diet -- 07/22/15 20:57:00 CDT, General (Regular) Feeding Assistance : Independent Breakfast : 0 % NYA ROLLINS RN - 07/26/2015 10:24 CDT Source: [facility] TextMaster Document Id: [id number] CDT!15 Ori - Nya Rollins R.N. - 07/26/2015 9:54 AM CDT Team Meeting Notes Team Meeting Notes Entered On: 07/26/2015 9:55 CDT Performed On: 07/26/2015 9:54 CDT by NYA ROLLINS RN Team Notes Team Meeting Grid Discipline : Behavioral Health Nurse, Other: Psychiatric provider, psychologist, ED Swage Tender, Popeye, Discharge planning nurse Topics : Plan of care, Other: Discharge planning NYA ROLLINS RN - 07/26/2015 9:54 CDT Source: [facility] TextMaster Document Id: [id number] CDT!6 Ori - Alessandra Masterson R.N. - 07/26/2015 1:48 AM CDT Adult Ongoing Assessment Adult Ongoing Assessment Entered On: 07/26/2015 1:54 CDT Performed On: 07/26/2015 1:48 CDT by ALESSANDRA MASTERSON RN Respiratory Respiratory Patient Stated Symptoms : None Respirations : Unlabored Distress : None Respiratory Pattern : Regular Cough : None Sputum Amount : None Suction : None Airway : Patent ALESSANDRA MASTERSON RN - 07/26/2015 1:48 CDT Cardiovascular CV Patient Stated Symptoms : None Antiembolism Device Yes/No : No Skin Color : Normal for ethnicity Activity Tolerance : Without distress ALESSANDRA MASTERSON RN - 07/26/2015 1:48 CDT Neurological Neuro Patient Stated Symptoms : None ALESSANDRA MASTERSON RN - 07/26/2015 1:48 CDT Psycho/Emotional Affect/Behavior : Calm, Cooperative, Appropriate Pain Symptoms : No ALESSANDRA MASTERSON Gisela - 07/26/2015 1:48 CDT Coping Grid Values/Beliefs incorporated appropriately : Yes BRETT MASTERSONJone Higgins 07/26/2015 1:48 CDT Safety Grid Vision, Hearing, Mobility Adequate to Meet Safety Needs : Yes ALESSANDRA MASTERSON Gisela 07/26/2015 1:48 CDT Psycho/Emotional Detailed Assessment : Yes BRETT MASTERSONJone Higgins 07/26/2015 1:48 CDT Psycho/Emotional Detailed Participates in Age-specific Activities : Yes Behavior & General Appearance : Appropriate for situation ALESSANDRA MASTERSON Gisela - 07/26/2015 1:48 CDT Suicide Risk Re-Assessment Ongoing Behaviors/Threats of Harm to Self : Pt. sleeping Behaviors/Threats of Harm to Others : Pt. sleeping Do you have a plan for suicide? : Pt. sleeping BRETT MASTERSONJone Higgins - 07/26/2015 1:48 CDT Gastrointestinal GI Patient Stated Symptoms : None Bowel Movement Last Date : 07/24/2015 CDT JacksonEDMUNDO ALESSANDRA A 07/26/2015 1:48 CDT Genitourinary Patient Stated Symptoms : None BRETT MASTERSONJone Higgins - 07/26/2015 1:48 CDT Integumentary Integumentary Patient Stated Symptoms : None BRETT MASTERSONJone Higgins - 07/26/2015 1:48 CDT Skin Abnormality/Location Grid Location : Buttock Laterality : Right Abnormality : Rash BRETT MASTERSONJone Higgins - 07/26/2015 1:48 CDT Skin Color : Normal for ethnicity BRETT MASTERSONJone Higgins - 07/26/2015 1:48 CDT Musculoskeletal Musculoskeletal Patient Stated Symptoms : None Activity Tolerance : Without distress ALESSANDRA MASTERSON Gisela - 07/26/2015 1:48 CDT Hendrich II Fall Risk Confusion/Disorientation Hendrich : No Depression Fall Risk Hendrich : No Altered Elimination Fall Risk Hendrich : No Dizziness/Vertigo Fall Risk Hendrich : No Gender, Male Fall Risk Hendrich : No Prescribed Antiepileptics Hendrich : No Prescribed Benzodiazepines Hendrich : No Rising From Chair Fall Risk Hendrich : Able to rise in a single movement, no loss of balance with steps Fall Risk Score Hendrich II : 0 BRETT MASTERSONJone Higgins 07/26/2015 1:48 CDT Safe Patient Handling Safe Pt Handling Independent : Yes - No equipment needed Safe Pt Handling Equipment Rec : No Equipment Needed ALESSANDRA MASTERSON RN - 07/26/2015 1:48 CDT Source: [facility] Document Id: [id number] CDT!61 Miscellaneous - Alessandra Masterson RGordonN. - 07/26/2015 1:47 AM CDT Adult Activities of Daily Living Adult Activities of Daily Living Entered On: 07/26/2015 1:47 CDT Performed On: 07/26/2015 1:47 CDT by ALESSANDRA MASTERSON RN ADLs I Activity Status ADL : Up ad argenis Activity Assistance : Independent Assistive Device : None ALESSANDRA MASTERSON RN - 07/26/2015 1:47 CDT ADLs II Elimination Assistance Offered Q2H : Independent Bowel Movement Last Date : 07/24/2015 CDT Standard Safety : Bed in low position, Wheels locked, Other: 15 min. safety checks ALESSANDRA MASTERSON RN - 07/26/2015 1:47 CDT Source: [facility] Document Id: [id number] CDT!9 Miscellfelicita - Jahaira Frost RGordonNGordon - 07/25/2015 5:59 PM CDT Adult Ongoing Assessment Adult Ongoing Assessment Entered On: 07/25/2015 18:02 CDT Performed On: 07/25/2015 17:59 CDT by JAHAIRA FROST RN Respiratory Respiratory Patient Stated Symptoms : None Respirations : Unlabored Distress : None Respiratory Pattern : Regular Cough : None Sputum Amount : None JAHAIRA FROST RN - 07/25/2015 17:59 CDT Cardiovascular CV Patient Stated Symptoms : None Antiembolism Device Yes/No : No Skin Color : Normal for ethnicity JAHAIRA FROST RN - 07/25/2015 17:59 CDT Neurological Neuro Patient Stated Symptoms : None Orientation : Oriented x 3 Level of Consciousness : Alert Gait : Steady Swallowing Difficulty/Aspiration Risk : None LISETTE FROSTAH Eliel POST - 07/25/2015 17:59 CDT Psycho/Emotional Affect/Behavior : Calm, Cooperative, Appropriate Pain Symptoms : No Feels Rested : Yes LISETTE FROSTAH Eliel POST - 07/25/2015 17:59 CDT Coping Grid Identifies effective strategies : Yes Uses effective strategies : Yes Reports increase in psychological comfort : Yes Indicates sense of control : Yes Stressors perceived within control : Yes Stable mood with appropriate affect : Yes Behaviors indicate use of coping mechanism : Yes Family supportive and involved in care : Yes Values/Beliefs incorporated appropriately : Yes JAHAIRA FROST RN - 07/25/2015 17:59 CDT Safety Grid Vision, Hearing, Mobility Adequate to Meet Safety Needs : Yes JAHAIRA FROST RN - 07/25/2015 17:59 CDT Psycho/Emotional Detailed Assessment : Yes JAHAIRA FROST RN - 07/25/2015 17:59 CDT Psycho/Emotional Detailed Hallucinations Present : None Orientation : Oriented x 3 Cognition : Adequate concentration, Judgement appropriate, Motivated for treatment, Cooperative with1:1 Behavior & General Appearance : Appropriate for situation Behavior/Interaction with Peers/Staff Appropriate : Yes Thought Process Intact : Yes JAHAIRA FROST RN - 07/25/2015 17:59 CDT Suicide Risk Re-Assessment Ongoing Behaviors/Threats of Harm to Self : No (Comment: patient denies all [JAHAIRA FROST RN - 07/25/2015 18:02 CDT] ) Behaviors/Threats of Harm to Others : No Do you have a plan for suicide? : No JAHAIRA FROST RN - 07/25/2015 17:59 CDT Gastrointestinal GI Patient Stated Symptoms : None Bowel Movement Last Date : 07/24/2015 CDT JAHAIRA FROST RN - 07/25/2015 17:59 CDT Nutrition Appetite : Good Eating Difficulties : None Feeding Ability : Complete independence JAHAIRA FROST RN - 07/25/2015 17:59 CDT Genitourinary Patient Stated Symptoms : None Urinary Elimination : Voiding, no difficulties JAHAIRA FROST RN - 07/25/2015 17:59 CDT Integumentary Integumentary Patient Stated Symptoms : None JAHAIRA FROST RN - 07/25/2015 17:59 CDT Skin Abnormality/Location Grid Location : Buttock Laterality : Right Abnormality : Rash JAHAIRA FROST RN - 07/25/2015 17:59 CDT Skin Color : Normal for ethnicity JAHAIRA FROST RN - 07/25/2015 17:59 CDT Ulices Sensory Perception Ulices : No impairment Moisture Ulices : Rarely moist Activity Ulices : Walks frequently Mobility Ulices : No limitations Nutrition Ulices : Excellent Friction and Shear Ulices : No apparent problem Ulices Score : 23 JAHAIRA FROST RN - 07/25/2015 17:59 CDT Musculoskeletal Musculoskeletal Patient Stated Symptoms : None Activity Tolerance : Without distress JAHAIRA FROST RN - 07/25/2015 17:59 CDT Hendrich II Fall Risk Confusion/Disorientation Hendrich : No Depression Fall Risk Hendrich : No Altered Elimination Fall Risk Hendrich : No Dizziness/Vertigo Fall Risk Hendrich : No Gender, Male Fall Risk Hendrich : No Prescribed Antiepileptics Hendrich : No Prescribed Benzodiazepines Hendrich : No Rising From Chair Fall Risk Hendrich : Able to rise in a single movement, no loss of balance with steps Fall Risk Score Hendrich II : 0 JAHAIRA FROST RN - 07/25/2015 17:59 CDT Safe Patient Handling Safe Pt Handling Independent : Yes - No equipment needed Safe Pt Handling Equipment Rec : No Equipment Needed JAHAIRA FROST RN - 07/25/2015 17:59 CDT Education General Patient Education Powergrid Topics : Medication dosage, route, scheduling, Plan of care, Printed materials (Comment: Crisis center info given. [JAHAIRA FROST RN - 07/25/2015 18:02 CDT] ) Individuals Taught : Patient Barriers to Learning : None evident Teaching Method : Explanation, Printed materials Teaching Evaluation : Verbalizes understanding JAHAIRA FROST RN - 07/25/2015 17:59 CDT Source: [employer] Document Id: [id number] CDT!96 Miscellaneous - Jahaira Frost R.N. - 07/25/2015 4:31 PM CDT Adult Activities of Daily Living Adult Activities of Daily Living Entered On: 07/25/2015 16:32 CDT Performed On: 07/25/2015 16:31 CDT by TIFFANIE WIN ADLs I Activity Status ADL : Ambulating in la, Ambulating in room Activity Assistance : Independent Assistive Device : None Ambulation Patient Effort : Good JAHAIRA FROST RN - 07/25/2015 17:56 CDT ADLs II Elimination Assistance Offered Q2H : Independent Standard Safety : Bed in low position, ID band check, Non-Slip footwear, Wheels locked, Other: q15 minute safety checks JAHAIRA FROST RN - 07/25/2015 17:56 CDT JAHAIRA FROST RN - 07/25/2015 17:56 CDT Hygiene Assistance Grid Foot Care : Independent Hair Care : Independent Kandice Care : Independent Shower : Independent Upper Body Dressing(Clothing) : Independent Lower Body Dressing(Clothing) : Independent TIFFANIE WIN - 07/25/2015 16:31 CDT Bowel Movement Last Date : 07/24/2015 CDT TIFFANIE WIN - 07/25/2015 16:31 CDT ADLs Adult Nutrition Feeding Assistance : Independent JAHAIRA FROST RN - 07/25/2015 17:56 CDT Dinner : 75 % TIFFANIE WIN - 07/25/2015 17:44 CDT Diet Type : Diet -- 07/22/15 20:57:00 CDT, General (Regular) TIFFANIE WIN - 07/25/2015 16:31 CDT Source: [facility] POWERCHART Document Id: [id number] CDT!21 Miscellaneous - Jahaira Frost R.N. - 07/25/2015 9:47 AM CDT Team Meeting Notes Document Has Been Updated Team Meeting Notes Entered On: 07/25/2015 9:47 CDT Performed On: 07/25/2015 9:47 CDT by JAHAIRA FROST RN Team Notes Team Meeting Grid Discipline : Behavioral Health Nurse, Physician Topics : Medication, Plan of care JAHAIRA FROST RN - 07/25/2015 9:49 CDT JAHAIRA FROST RN - 07/25/2015 9:47 CDT Source: [facility] Driver[employer]CHART Document Id: [id number] CDT!5 Miscellaneous - Jahaira Frost R.N. - 07/25/2015 9:04 AM CDT Adult Ongoing Assessment Adult Ongoing Assessment Entered On: 07/25/2015 9:11 CDT Performed On: 07/25/2015 9:04 CDT by JAHAIRA FROST RN Respiratory Respiratory Patient Stated Symptoms : None Respirations : Unlabored Distress : None Respiratory Pattern : Regular Cough : None Sputum Amount : None JAHAIRA FROST RN - 07/25/2015 9:04 CDT Cardiovascular CV Patient Stated Symptoms : None Antiembolism Device Yes/No : No Skin Color : Normal for ethnicity Skin Description : Normal Skin Temperature : Warm Activity Tolerance : Minimal distress (Comment: chronic back pain [JAHAIRA FROST RN - 07/25/2015 9:12 CDT] ) JAHAIRA FROST RN - 07/25/2015 9:04 CDT Neurological Neuro Patient Stated Symptoms : None Orientation : Oriented x 3 Level of Consciousness : Alert Gait : Steady JAHAIRA FROST RN - 07/25/2015 9:04 CDT Psycho/Emotional Affect/Behavior : Calm, Cooperative, Appropriate, Appears depressed Pain Symptoms : Yes Feels Rested : No JAHAIRA FROST RN - 07/25/2015 9:04 CDT Coping Grid Identifies effective strategies : Yes Uses effective strategies : Yes Reports increase in psychological comfort : Yes Indicates sense of control : Yes Stressors perceived within control : No Stable mood with appropriate affect : Yes Behaviors indicate use of coping mechanism : Yes Family supportive and involved in care : Yes Values/Beliefs incorporated appropriately : Yes JAHAIRA FROST RN - 07/25/2015 9:04 CDT Safety Grid Vision, Hearing, Mobility Adequate to Meet Safety Needs : Yes JAHAIRA FROST RN - 07/25/2015 9:04 CDT Psycho/Emotional Detailed Assessment : Yes JAHAIRA FROST RN - 07/25/2015 9:04 CDT Psycho/Emotional Detailed Hallucinations Present : None Orientation : Oriented x 3 Cognition : Adequate concentration, Judgement appropriate, Motivated for treatment, Cooperative with1:1 Behavior & General Appearance : Appropriate for situation, Social with peers and staff, interacts appropriately, ADLs self-initiated Behavior/Interaction with Peers/Staff Appropriate : Yes Thought Process Intact : Yes CAESARJAHAIRA TRIPATHI Eliel POST - 07/25/2015 9:04 CDT Suicide Risk Re-Assessment Ongoing Behaviors/Threats of Harm to Self : No (Comment: patient denies all [JAHAIRA FROST RN - 07/25/2015 9:12 CDT] ) Behaviors/Threats of Harm to Others : No Do you have a plan for suicide? : No JAHAIRA FROST RN - 07/25/2015 9:04 CDT Pain Scale Pain Scale Verbal 0-10 : Open JAHAIRA FROST RN - 07/25/2015 9:04 CDT Pain Pain Assessment Grid Pain 1 Location : Lower back Laterality : Bilateral Intensity : 9 JAHAIRA FROST RN - 07/25/2015 9:04 CDT Gastrointestinal GI Patient Stated Symptoms : None Bowel Movement Last Date : 07/24/2015 CDT LISETTE FROSTAH Eliel POST - 07/25/2015 9:04 CDT Nutrition Appetite : Fair Eating Difficulties : None Feeding Ability : Complete independence JAHAIRA FROST RN - 07/25/2015 9:04 CDT Genitourinary Patient Stated Symptoms : None Urinary Elimination : Voiding, no difficulties LISETTE FROSTAH Eliel POST - 07/25/2015 9:04 CDT Integumentary Integumentary Patient Stated Symptoms : None Skin Integrity : Intact JAHAIRA FROST RN - 07/25/2015 9:04 CDT Skin Abnormality/Location Grid Location : Buttock Laterality : Right Abnormality : Rash JENNYFER JAHAIRA Julian RN - 07/25/2015 9:04 CDT Skin Color : Normal for ethnicity Skin Description : Normal Skin Temperature : Warm JAHAIRA FROST RN - 07/25/2015 9:04 CDT Ulices Sensory Perception Ulices : No impairment Moisture Ulices : Rarely moist Activity Ulices : Walks occasionally Mobility Ulices : Slightly limited Nutrition Ulices : Adequate Friction and Shear Ulices : No apparent problem Ulices Score : 20 JAHARIA FROST RN - 07/25/2015 9:04 CDT Musculoskeletal Musculoskeletal Patient Stated Symptoms : None Activity Tolerance : Minimal distress JAHAIRA FROST RN - 07/25/2015 9:04 CDT Hendrich II Fall Risk Confusion/Disorientation Hendrich : No Depression Fall Risk Hendrich : Yes Altered Elimination Fall Risk Hendrich : No Dizziness/Vertigo Fall Risk Hendrich : No Gender, Male Fall Risk Hendrich : No Prescribed Antiepileptics Hendrich : No Prescribed Benzodiazepines Hendrich : No Rising From Chair Fall Risk Hendrich : Able to rise in a single movement, no loss of balance with steps Fall Risk Score Hendrich II : 2 JAHAIRA FROST RN - 07/25/2015 9:04 CDT Safe Patient Handling Safe Pt Handling Independent : Yes - No equipment needed Safe Pt Handling Equipment Rec : No Equipment Needed JAHAIRA FROST RN - 07/25/2015 9:04 CDT Education General Patient Education Power[employer] Topics : Activity limitations/expectations, Exercise, Medication dosage, route, scheduling, Plan of care, Printed materials (Comment: Patient is going to work on discharge planning, medication discussion for pain, and exercises to help with chronic pain. [JAHAIRA FROST RN - 07/25/2015 9:12 CDT] ) Individuals Taught : Patient Barriers to Learning : None evident Teaching Method : Explanation JAHAIRA FROST RN - 07/25/2015 9:04 CDT Source: [facility] Document Id: [id number] CDT!108 Miscellaneous - Jorge Escobar V - 07/25/2015 9:03 AM CDT Adult Activities of Daily Living Adult Activities of Daily Living Entered On: 07/25/2015 9:04 CDT Performed On: 07/25/2015 9:03 CDT by JAHAIRA FROST RN ADLs I Activity Status ADL : Ambulating in la, Ambulating in room Activity Assistance : Independent Assistive Device : None Ambulation Patient Effort : Good Range of Motion LUE : Active Range of Motion RUE : Active Range of Motion LLE : Active Range of Motion RLE : Active JAHAIRA FROST RN - 07/25/2015 9:03 CDT ADLs II Hygiene Assistance Grid Upper Body Dressing(Clothing) : Independent Lower Body Dressing(Clothing) : Independent JAHIARA FROST RN - 07/25/2015 9:03 CDT Elimination Assistance Offered Q2H : Independent Bowel Movement Last Date : 07/24/2015 CDT Standard Safety : Bed in low position, ID band check, Non-Slip footwear, Wheels locked, Other: q15 minute safety checks JAHAIRA FROST RN - 07/25/2015 9:03 CDT ADLs Adult Nutrition Lunch : 100 % JORGE ESCOBAR V - 07/25/2015 12:31 CDT Diet Type : Diet -- 07/22/15 20:57:00 CDT, General (Regular) Feeding Assistance : Independent JAHAIRA FROST RN - 07/25/2015 9:03 CDT Source: [facility] Document Id: [id number] CDT!21 Emilee Bacon R.N. - 07/25/2015 2:00 AM CDT Adult Activities of Daily Living Adult Activities of Daily Living Entered On: 07/25/2015 2:03 CDT Performed On: 07/25/2015 2:00 CDT by EMILEE OLIVER RN ADLs I Activity Status ADL : Up ad argenis Activity Assistance : Independent Assistive Device : None EMILEE OLIVER RN - 07/25/2015 2:00 CDT ADLs II Elimination Assistance Offered Q2H : Independent Standard Safety : Bed in low position, Night light, Non-Slip footwear, Wheels locked, Other: camera monitoring and 15 minute safety checks EMILEE OLIVER RN - 07/25/2015 2:00 CDT Source: [facility] Document Id: [id number] CDT!8 Emilee Bacon R.N. - 07/25/2015 1:57 AM CDT Adult Ongoing Assessment Adult Ongoing Assessment Entered On: 07/25/2015 1:58 CDT Performed On: 07/25/2015 1:57 CDT by EMILEE OLIVER RN Respiratory Respiratory Patient Stated Symptoms : None Respirations : Unlabored Distress : None Respiratory Pattern : Regular EMILEE OLIVER RN - 07/25/2015 1:57 CDT Cardiovascular CV Patient Stated Symptoms : None Antiembolism Device Yes/No : No EMILEE OLIVER RN - 07/25/2015 1:57 CDT Neurological Neuro Patient Stated Symptoms : None Orientation : Oriented x 3, Appropriate for age Level of Consciousness : Alert EMILEE OLIVER RN - 07/25/2015 1:57 CDT Psycho/Emotional Affect/Behavior : Calm, Cooperative, Appropriate Pain Symptoms : No EMILEE OLIVER RN - 07/25/2015 1:57 CDT Coping Grid Values/Beliefs incorporated appropriately : Yes EMILEE OLIVER RN - 07/25/2015 1:57 CDT Safety Grid Vision, Hearing, Mobility Adequate to Meet Safety Needs : Yes EMILEE OLIVER RN - 07/25/2015 1:57 CDT Psycho/Emotional Detailed Assessment : Yes EMILEE OLIVER RN - 07/25/2015 1:57 CDT Psycho/Emotional Detailed Hallucinations Present : None Orientation : Oriented x 3, Appropriate for age EMILEE OLIVER RN - 07/25/2015 1:57 CDT Gastrointestinal GI Patient Stated Symptoms : None EMILEE OLIVER RN - 07/25/2015 1:57 CDT Genitourinary Patient Stated Symptoms : None Urinary Elimination : Voiding, no difficulties EMILEE OLIVER RN - 07/25/2015 1:57 CDT Integumentary Integumentary Patient Stated Symptoms : None EMILEE OLIVER RN - 07/25/2015 1:57 CDT Skin Abnormality/Location Grid Location : Buttock Laterality : Right Abnormality : Rash EMILEE OLIVER RN - 07/25/2015 1:57 CDT Musculoskeletal Musculoskeletal Patient Stated Symptoms : None EMILEE OLIVER RN - 07/25/2015 1:57 CDT Hendrich II Fall Risk Prescribed Antiepileptics Hendrich : No Prescribed Benzodiazepines Hendrich : No Fall Risk Score Hendrich II : 0 EMILEE OLIVER RN - 07/25/2015 1:58 CDT Confusion/Disorientation Hendrich : No Depression Fall Risk Hendrich : No Altered Elimination Fall Risk Hendrich : No Dizziness/Vertigo Fall Risk Hendrich : No Gender, Male Fall Risk Hendrich : No Rising From Chair Fall Risk Hendrich : Able to rise in a single movement, no loss of balance with steps JAMES, EMILEE De Leon RN - 07/25/2015 1:57 CDT Safe Patient Handling Safe Pt Handling Independent : Yes - No equipment needed Safe Pt Handling Equipment Rec : No Equipment Needed Repositioning Device Recommended : No EMILEE OLIVER RN - 07/25/2015 1:58 CDT Source: [facility] Document Id: [id number] CDT!52 Ori - Tiffanie Win R.N. - 07/24/2015 6:05 PM CDT Basic Admission Information Basic Admission Information Entered On: 07/24/2015 18:06 CDT Performed On: 07/24/2015 18:05 CDT by TIFFANIE WIN Valuables/Belongings Valuables/Belongings Grid Valuables at Bedside Valuables Sent to [employer] Clothes, Patient Valuables : Pants, Shirt, Undergarments, Other: 1 sweatshirt, sandals, toothpaste, deoderant, 3 tank tops, 2 shirts, 2 bras, 2 undergarments, 1 pair socks, 3 pants Shoes, Other: 1 pairof shorts with strings Electronic Devices : Cell phone TIFFANIE WIN - 07/24/2015 18:05 CDT TIFFANIE WIN - 07/24/2015 18:05 CDT Source: [facility] Document Id: [id number] CDT!8 Maria R Parks R.N. - 07/24/2015 4:54 PM CDT Adult Ongoing Assessment Adult Ongoing Assessment Entered On: 07/24/2015 17:00 CDT Performed On: 07/24/2015 16:54 CDT by MARIA R PETERS RN Respiratory Respiratory Patient Stated Symptoms : None Distress : None Cough : None Sputum Amount : None Suction : None Airway : Patent MARIA R PETERS RN - 07/24/2015 16:54 CDT Cardiovascular CV Patient Stated Symptoms : None Antiembolism Device Yes/No : No Edema Assessment : No Skin Color : Normal for ethnicity Skin Description : Dry Skin Temperature : Warm Activity Tolerance : Without distress MARIA R PETERS RN - 07/24/2015 16:54 CDT Neurological Neuro Patient Stated Symptoms : None Orientation : Oriented x 3 Level of Consciousness : Alert Gait : Steady Swallowing Difficulty/Aspiration Risk : None MARIA R PETERS RN - 07/24/2015 16:54 CDT [place] Coma Eye Opening Response [place] : Spontaneously Best Verbal Response Laura : Oriented Best Motor Response [place] : Obeys simple commands Laura Coma Score : 15 MARIA R PETERS RN - 07/24/2015 16:54 CDT Psycho/Emotional Affect/Behavior : Appropriate, Other: withdrawn Pain Symptoms : Yes MARIA R PETERS RN - 07/24/2015 16:54 CDT Pain Scale Pain Scale Verbal 0-10 : Open MARIA R PETERS RN - 07/24/2015 16:54 CDT Pain Pain Assessment Grid Pain 1 Location : Lower back Laterality : Bilateral Time Pattern : Chronic Quality : Aching, Sharp, Throbbing Pain Radiation : Yes Radiation Characteristics : to right leg Aggravating Factors : Movement Alleviating Factors : Medication, Rest Associated Symptoms : None Interventions : Medications, Rest MARIA R PETERS RN - 07/24/2015 16:54 CDT Gastrointestinal GI Patient Stated Symptoms : None MARIA R PETERS RN - 07/24/2015 16:54 CDT Nutrition Eating Difficulties : None Feeding Ability : Complete independence MARIA R PETERS RN - 07/24/2015 16:54 CDT Genitourinary Patient Stated Symptoms : None Urinary Elimination : Voiding, no difficulties MARIA R PETERS RN - 07/24/2015 16:54 CDT Integumentary Integumentary Patient Stated Symptoms : None Skin Integrity : Intact MARIA R PETERS RN - 07/24/2015 16:54 CDT Skin Abnormality/Location Grid Location : Buttock Laterality : Right Abnormality : Rash MARIA R PETERS RN - 07/24/2015 16:54 CDT Skin Color : Normal for ethnicity Skin Description : Dry Skin Temperature : Warm MARIA R PETERS RN - 07/24/2015 16:54 CDT Ulices Sensory Perception Ulices : No impairment Moisture Ulices : Rarely moist Activity Ulices : Walks occasionally Mobility Ulices : No limitations Nutrition Ulices : Adequate Friction and Shear Ulices : No apparent problem Ulices Score : 21 MARIA R PETERS RN - 07/24/2015 16:54 CDT Musculoskeletal Musculoskeletal Patient Stated Symptoms : None Activity Tolerance : Without distress MARIA R PETERS RN - 07/24/2015 16:54 CDT Hendrich II Fall Risk Confusion/Disorientation Hendrich : No Depression Fall Risk Hendrich : Yes Altered Elimination Fall Risk Hendrich : No Dizziness/Vertigo Fall Risk Hendrich : No Gender, Male Fall Risk Hendrich : No Prescribed Antiepileptics Hendrich : No Prescribed Benzodiazepines Hendrich : No Rising From Chair Fall Risk Hendrich : Pushes up, successful in one attempt Fall Risk Score Hendrich II : 3 MARIA R PETERS RN - 07/24/2015 16:54 CDT Safe Patient Handling Safe Pt Handling Independent : Yes - No equipment needed Safe Pt Handling Equipment Rec : No Equipment Needed Repositioning Device Recommended : No MARIA R PETERS RN - 07/24/2015 16:54 CDT Education General Patient Education Powergrid Topics : Plan of care Individuals Taught : Patient Barriers to Learning : Emotional state Teaching Method : Explanation Teaching Evaluation : Needs reinforcement MARIA R PETERS RN - 07/24/2015 16:54 CDT [facility] [employer] Document Id: [id number] CDT!97 Miscellaneous - Maria R Peters R.N. - 07/24/2015 4:24 PM CDT Adult Activities of Daily Living Adult Activities of Daily Living Entered On: 07/24/2015 16:25 CDT Performed On: 07/24/2015 16:24 CDT by MARIA R PETERS RN ADLs I Activity Status ADL : Up ad argenis Activity Assistance : Independent Assistive Device : None Ambulation Patient Effort : Good MARIA R PETERS RN - 07/24/2015 16:24 CDT ADLs II Elimination Assistance Offered Q2H : Independent Standard Safety : Bed in low position, ID band check, Non-Slip footwear, Wheels locked, Other: 15 minute safety checks MARIA R PETERS RN - 07/24/2015 16:24 CDT ADLs Adult Nutrition Dinner : 95 % TIFFANIE WIN - 07/24/2015 18:52 CDT Diet Type : Diet -- 07/22/15 20:57:00 CDT, General (Regular) Feeding Assistance : Independent MARIA R PETERS RN - 07/24/2015 16:24 CDT Source: [facility] Document Id: [id number] CDT!3 Miscellaneous - Maria R Peters R.N. - 07/24/2015 4:00 PM CDT Adult Pain Assessment Adult Pain Assessment Entered On: 07/24/2015 16:23 CDT Performed On: 07/24/2015 16:00 CDT by MARIA R PETERS RN Pain Scale Pain Scale Verbal 0-10 : Open MARIA R PETERS RN - 07/24/2015 16:22 CDT Pain Pain Assessment Grid Pain 1 Location : Lower back Laterality : Bilateral Intensity : 7 Time Pattern : Chronic Quality : Aching, Sharp, Throbbing Pain Radiation : Yes Radiation Characteristics : to right leg Aggravating Factors : Movement Alleviating Factors : Medication, Rest Associated Symptoms : None Interventions : Medications, Rest MARIA R PETERS RN - 07/24/2015 16:22 CDT Source: [facility] Document Id: [id number] CDT!17 Miscellaneous - Nilda Arteaga R.N. - 07/24/2015 2:05 PM CDT Adult Activities of Daily Living Adult Activities of Daily Living Entered On: 07/24/2015 14:07 CDT Performed On: 07/24/2015 14:05 CDT by NILDA ARTEAGA RN ADLs I Activity Status ADL : Ambulating in la, Ambulating in room, Up ad argenis Activity Assistance : Independent Assistive Device : None Ambulation Patient Effort : Good NILDA ARTEAGA RN - 07/24/2015 14:05 CDT ADLs II Hygiene Assistance Grid Hair Care : Independent Oral Care : Independent Shower : Independent Upper Body Dressing(Clothing) : Independent Lower Body Dressing(Clothing) : Independent NILDA ARTEAGA RN - 07/24/2015 14:05 CDT Elimination Assistance Offered Q2H : Independent Standard Safety : Bed in low position, ID band check, Wheels locked, Other: every 15 minute safety checks NILDA ARTEAGA RN - 07/24/2015 14:05 CDT ADLs Adult Nutrition Breakfast : 100 % NILDA ARTEAGA RN - 07/24/2015 14:38 CDT Diet Type : Diet -- 07/22/15 20:57:00 CDT, General (Regular) Feeding Assistance : Independent Lunch : 30 % NILDA ARTEAGA RN - 07/24/2015 14:05 CDT Source: [facility] Document Id: [id number] CDT!20 Miscellaneous - Nilda Arteaga R.N. - 07/24/2015 8:55 AM CDT Adult Ongoing Assessment Document Has Been Updated Adult Ongoing Assessment Entered On: 07/24/2015 9:01 CDT Performed On: 07/24/2015 8:55 CDT by NILDA ARTEAGA RN Respiratory Respiratory Patient Stated Symptoms : None Respirations : Unlabored Distress : None Respiratory Pattern : Regular Cough : None Sputum Amount : None NILDA ARTEAGA RN - 07/24/2015 8:55 CDT Cardiovascular CV Patient Stated Symptoms : None Antiembolism Device Yes/No : No Edema Assessment : No Skin Color : Normal for ethnicity Skin Description : Normal Skin Temperature : Warm Activity Tolerance : Without distress NILDA ARTEAGA RN - 07/24/2015 8:55 CDT Neurological Neuro Patient Stated Symptoms : None Orientation : Oriented x 3 Level of Consciousness : Alert Gait : Steady Swallowing Difficulty/Aspiration Risk : None NILDA ARTEAGA RN - 07/24/2015 8:55 CDT Psycho/Emotional Pain Symptoms : Yes Feels Rested : No NILDA ARTEAGA RN - 07/24/2015 8:55 CDT Coping Grid Identifies effective strategies : No Uses effective strategies : No Reports increase in psychological comfort : Yes Indicates sense of control : Yes Stressors perceived within control : No Stable mood with appropriate affect : Yes Behaviors indicate use of coping mechanism : No Family supportive and involved in care : Yes (Comment: patient signed alfredo allowing staff to talk to her father but not her mother [NILDA ARTEAGA RN - 07/24/2015 14:07 CDT] ) Values/Beliefs incorporated appropriately : Yes NILDA ARTEAGA RN - 07/24/2015 8:55 CDT Safety Grid Vision, Hearing, Mobility Adequate to Meet Safety Needs : Yes NILDA ARTEAGA RN - 07/24/2015 8:55 CDT Psycho/Emotional Detailed Assessment : Yes NILDA ARTEAGA RN - 07/24/2015 8:55 CDT Psycho/Emotional Detailed Hallucinations Present : None Orientation : Oriented x 3 Participates in Age-specific Activities : No Cognition : Cooperative with 1:1 Behavior/Interaction with Peers/Staff Appropriate : Yes (Comment: is cooperative with talking to assigned Nurse, but is withdrawn to her room amd declined to attend any groups yesterday [NILDA ARTEAGA RN - 07/24/2015 14:07 CDT] ) NILDA ARTEAGA RN - 07/24/2015 8:55 CDT Suicide Risk Re-Assessment Ongoing Behaviors/Threats of Harm to Self : No Behaviors/Threats of Harm to Others : No Do you have a plan for suicide? : No NILDA ARTEAGA RN - 07/24/2015 8:55 CDT Pain Scale Effects of Pain Grid Appetite : None Concentration : None Daily Life : Mild Emotions : None Relationships : None Sleep : Mild NILDA ARTEAGA RN - 07/24/2015 14:07 CDT Pain Scale Verbal 0-10 : Open NILDA ARTEAGA RN - 07/24/2015 8:55 CDT Pain Pain Assessment Grid Pain 1 Location : Other: back Laterality : Bilateral Intensity : 8 Acceptable Intensity : 4 Time Pattern : Chronic Onset : Gradual Quality : Aching Pain Radiation : No Aggravating Factors : Movement Alleviating Factors : Medication, Repositioning, Rest Associated Symptoms : None Interventions : Medications, Repositioning, Rest NILDA ARTEAGA RN - 07/24/2015 14:07 CDT Gastrointestinal GI Patient Stated Symptoms : None NILDA ARTEAGA RN - 07/24/2015 8:55 CDT Nutrition Appetite : Fair NILDA ARTEAGA RN - 07/24/2015 8:55 CDT Genitourinary Patient Stated Symptoms : None NILDA ARTEAGA RN - 07/24/2015 8:55 CDT Integumentary Skin Abnormality/Location Grid Location : Buttock Laterality : Right Abnormality : Rash NILDA ARTEAGA RN - 07/24/2015 8:55 CDT Skin Color : Normal for ethnicity Skin Temperature : Warm NILDA ARTEAGA RN - 07/24/2015 8:55 CDT Ulices Sensory Perception Ulices : No impairment Moisture Ulices : Rarely moist Activity Ulices : Walks frequently Mobility Ulices : No limitations Nutrition Ulices : Probably inadequate Friction and Shear Ulices : No apparent problem Ulices Score : 21 NILDA ARTEAGA RN - 07/24/2015 8:55 CDT Musculoskeletal Musculoskeletal Patient Stated Symptoms : Other: chronic back pain Activity Tolerance : Without distress ARTEAGANILDA SOTO RN - 07/24/2015 8:55 CDT Hendrich II Fall Risk Confusion/Disorientation Hendrich : No Depression Fall Risk Hendrich : Yes Altered Elimination Fall Risk Hendrich : No Dizziness/Vertigo Fall Risk Hendrich : No Gender, Male Fall Risk Hendrich : No Prescribed Antiepileptics Hendrich : No Prescribed Benzodiazepines Hendrich : No Rising From Chair Fall Risk Hendrich : Able to rise in a single movement, no loss of balance with steps Fall Risk Score Hendrich II : 2 NILDA ARTEAGA RN - 07/24/2015 14:07 CDT Safe Patient Handling Safe Pt Handling Independent : Yes - No equipment needed Safe Pt Handling Equipment Rec : No Equipment Needed Repositioning Device Recommended : No ARTEAGANILDA SOTO RN - 07/24/2015 14:07 CDT Education General Patient Education Power[employer] Topics : Activity limitations/expectations, Bathing/Hygiene, Importance of follow-up visits, Medication dosage, route, scheduling, Patient rights and responsibilities, Plan of care, Safety, medication,Unit procedures, Other: maintaining hygiene, the need for outpatient follow-up psychiatric care, cont racting for safety, attending groups, taking medications as prescribed, zoloft Individuals Taught : Patient Barriers to Learning : Desire/Motivation Teaching Method : Explanation, Printed materials NILDA ARTEAGA RN - 07/24/2015 14:54 CDT (Comment:literature about zoloft, booklet about depression,stress management, and problem solving [NILDA ARTEAGA RN - 07/24/2015 14:54 CDT] ) Teaching Evaluation : Needs reinforcement, Verbalizes understanding Comments (Comment: Patient denies having suicidal ideations at this time. Patient has been withdrawnto her room most of this shift. Patient needed encouragement to take a shower this shift. [NILDA ARTEAGA RN - 07/24/2015 14:07 CDT] ) NILDA ARTEAGA RN - 07/24/2015 14:07 CDT Source: [facility] Document Id: [id number] CDT!5 Emilee Bacon R.N. - 07/24/2015 12:41 AM CDT Adult Activities of Daily Living Adult Activities of Daily Living Entered On: 07/24/2015 0:42 CDT Performed On: 07/24/2015 0:41 CDT by EMILEE OLIVER RN ADLs I Activity Status ADL : Up ad argenis Activity Assistance : Independent Assistive Device : None EMILEE OLIVER RN - 07/24/2015 0:41 CDT ADLs II Elimination Assistance Offered Q2H : Independent Standard Safety : Bed in low position, Night light, Non-Slip footwear, Wheels locked, Other: camera monitoring and 15 minute safety checks EMILEE OLIVER RN - 07/24/2015 0:41 CDT Source: [facility] Document Id: [id number] CDT!8 Emilee Bacon R.N. - 07/24/2015 12:38 AM CDT Adult Ongoing Assessment Adult Ongoing Assessment Entered On: 07/24/2015 0:39 CDT Performed On: 07/24/2015 0:38 CDT by JAMES, EMILEE L RN Respiratory Respiratory Patient Stated Symptoms : None Respirations : Unlabored Distress : None Respiratory Pattern : Regular EMILEE OLIVER RN - 07/24/2015 0:38 CDT Cardiovascular CV Patient Stated Symptoms : None Antiembolism Device Yes/No : No EMILEE OLIVER RN - 07/24/2015 0:38 CDT Neurological Neuro Patient Stated Symptoms : None Orientation : Oriented x 3, Appropriate for age Level of Consciousness : Alert EMILEE OLIVER RN - 07/24/2015 0:38 CDT Psycho/Emotional Affect/Behavior : Calm, Cooperative, Appropriate Pain Symptoms : No EMILEE OLIVER RN - 07/24/2015 0:38 CDT Safety Grid Vision, Hearing, Mobility Adequate to Meet Safety Needs : Yes EMILEE OLIVER RN - 07/24/2015 0:38 CDT Psycho/Emotional Detailed Assessment : Yes EMILEE OLIVER RN - 07/24/2015 0:38 CDT Psycho/Emotional Detailed Hallucinations Present : None Orientation : Oriented x 3, Appropriate for age EMILEE OLIVER RN - 07/24/2015 0:38 CDT Gastrointestinal GI Patient Stated Symptoms : None EMILEE OLIVER RN - 07/24/2015 0:38 CDT Genitourinary Urinary Elimination : Voiding, no difficulties EMILEE OLIVER RN - 07/24/2015 0:38 CDT Integumentary Integumentary Patient Stated Symptoms : None EMILEE OLIVER RN - 07/24/2015 0:38 CDT Skin Abnormality/Location Grid Location : Buttock Laterality : Right Abnormality : Rash EMILEE OLIVER RN - 07/24/2015 0:38 CDT Musculoskeletal Musculoskeletal Patient Stated Symptoms : None EMILEE OLIVER RN - 07/24/2015 0:38 CDT Hendrich II Fall Risk Prescribed Antiepileptics Hendrich : No Prescribed Benzodiazepines Hendrich : No Fall Risk Score Hendrich II : 0 EMILEE OLIVER RN - 07/24/2015 0:41 CDT Confusion/Disorientation Hendrich : No Depression Fall Risk Hendrich : No Altered Elimination Fall Risk Hendrich : No Dizziness/Vertigo Fall Risk Hendrich : No Gender, Male Fall Risk Hendrich : No Rising From Chair Fall Risk Hendrich : Able to rise in a single movement, no loss of balance with steps EMILEE OLIVER RN - 07/24/2015 0:38 CDT Safe Patient Handling Safe Pt Handling Independent : Yes - No equipment needed Safe Pt Handling Equipment Rec : No Equipment Needed Repositioning Device Recommended : No EMILEE OLIVER RN - 07/24/2015 0:38 CDT Source: [facility] POWERCHART Document Id: [id number] CDT!49 Miscellaneous - Isiah Clement R.N. - 07/23/2015 6:25 PM CDT Adult Ongoing Assessment Adult Ongoing Assessment Entered On: 07/23/2015 18:26 CDT Performed On: 07/23/2015 18:25 CDT by ISIAH CLEMENT RN Respiratory Respiratory Patient Stated Symptoms : None ISIAH CLEMENT RN - 07/23/2015 18:25 CDT Cardiovascular CV Patient Stated Symptoms : None Antiembolism Device Yes/No : No Skin Color : Normal for ethnicity ISIAH CLEMENT RN - 07/23/2015 18:29 CDT Neurological Neuro Patient Stated Symptoms : None Orientation : Oriented x 3 Level of Consciousness : Alert Gait : Unable to assess ISIAH CLEMENT RN - 07/23/2015 18:29 CDT Laura Coma Eye Opening Response [place] : Spontaneously Best Verbal Response [place] : Oriented Best Motor Response Laura : Obeys simple commands Laura Coma Score : 15 ISIAH CLEMENT RN - 07/23/2015 18:29 CDT Psycho/Emotional Affect/Behavior : Calm, Anxious, Other: appears depressed Pain Symptoms : Yes ISIAH CLEMENT RN - 07/23/2015 18:29 CDT Coping Grid Identifies effective strategies : No Uses effective strategies : No Reports increase in psychological comfort : Yes Indicates sense of control : Yes Stressors perceived within control : No Stable mood with appropriate affect : No Behaviors indicate use of coping mechanism : No Family supportive and involved in care : Yes (Comment: grandmother [ISIAH CLEMENT RN - 07/23/2015 18:29 CDT] ) Values/Beliefs incorporated appropriately : Yes ISIAH CLEMENT RN - 07/23/2015 18:29 CDT Safety Grid Vision, Hearing, Mobility Adequate to Meet Safety Needs : Yes ISIAH CLEMENT - 07/23/2015 18:29 CDT Psycho/Emotional Detailed Assessment : Yes ISIAH CLEMENT - 07/23/2015 18:29 CDT Psycho/Emotional Detailed Hallucinations Present : None Orientation : Oriented x 3 Participates in Age-specific Activities : No Cognition : Cooperative with 1:1 ISIAH CLEMENT - 07/23/2015 18:29 CDT Suicide Risk Re-Assessment Ongoing Behaviors/Threats of Harm to Self : No Behaviors/Threats of Harm to Others : No Do you have a plan for suicide? : No ISIAH CLEMENT - 07/23/2015 18:29 CDT Pain Scale Pain Scale Verbal 0-10 : Open ISIAH CLEMENT - 07/23/2015 18:29 CDT Pain Pain Assessment Grid Pain 1 Location : Other: back pain/spasms Intensity : 8 Quality : Unable to describe Pain Radiation : Yes Aggravating Factors : Movement, Other: everything Alleviating Factors : Medication Interventions : MD notified ISIAH CLEMENT - 07/23/2015 18:29 CDT Gastrointestinal GI Patient Stated Symptoms : None ISIAH CLEMENT - 07/23/2015 18:29 CDT Nutrition Appetite : Fair ISIAH CLEMENT - 07/23/2015 18:29 CDT Genitourinary Patient Stated Symptoms : None ISIAH CLEMENT - 07/23/2015 18:29 CDT Integumentary Integumentary Patient Stated Symptoms : None ISIAH CLEMENT - 07/23/2015 18:29 CDT Skin Abnormality/Location Grid Location : Buttock Laterality : Right Abnormality : Rash ISIAH CLEMENT - 07/23/2015 18:29 CDT Ulices Sensory Perception Ulices : No impairment Moisture Ulices : Rarely moist Activity Ulices : Walks occasionally Mobility Ulices : No limitations Nutrition Ulices : Adequate Friction and Shear Ulices : No apparent problem Ulices Score : 21 ISIAH CLEMENT - 07/23/2015 18:29 CDT Musculoskeletal Musculoskeletal Patient Stated Symptoms : None ISIAH CLEMENT - 07/23/2015 18:29 CDT Hendrich II Fall Risk Confusion/Disorientation Hendrich : No Depression Fall Risk Hendrich : Yes Altered Elimination Fall Risk Hendrich : No Dizziness/Vertigo Fall Risk Hendrich : No Gender, Male Fall Risk Hendrich : No Prescribed Antiepileptics Hendrich : No Prescribed Benzodiazepines Hendrich : No Rising From Chair Fall Risk Hendrich : Able to rise in a single movement, no loss of balance with steps Fall Risk Score Hendrich II : 2 ISIAH CLEMENT RN - 07/23/2015 18:29 CDT Safe Patient Handling Safe Pt Handling Independent : Yes - No equipment needed Safe Pt Handling Equipment Rec : No Equipment Needed ISIAH CLEMENT RN - 07/23/2015 18:29 CDT Education General Patient Education Powergrid Topics : Plan of care Individuals Taught : Patient Barriers to Learning : Desire/Motivation, Emotional state Teaching Method : Explanation Teaching Evaluation : Verbalizes understanding ISIAH CLEMENT RN - 07/23/2015 18:29 CDT [facility] Document Id: [id number] CDT!98 Miscellaneous - Mraia R Peters R.N. - 07/23/2015 5:40 PM CDT Adult Activities of Daily Living Adult Activities of Daily Living Entered On: 07/23/2015 17:40 CDT Performed On: 07/23/2015 17:40 CDT by TIFFANIE WIN ADLs I Activity Assistance : Independent Assistive Device : None MARIA R PETERS RN - 07/23/2015 22:00 CDT Activity Status ADL : Up ad argenis ISIAH CLEMENT RN - 07/23/2015 18:08 CDT ADLs II Elimination Assistance Offered Q2H : Independent MARIA R PETERS RN - 07/23/2015 22:00 CDT Standard Safety : Bed in low position, ID band check, Non-Slip footwear, Other: 15-minute safety checks ISIAH CLEMENT RN - 07/23/2015 18:08 CDT ADLs Adult Nutrition Feeding Assistance : MARIA R Campuzano RN - 07/23/2015 22:00 CDT Diet Type : Diet -- 07/22/15 20:57:00 CDT, General (Regular) Dinner : 70 % TIFFANIE WIN - 07/23/2015 17:40 CDT Source: [facility] [employer]Master Document Id: [id number] CDT!12 Ori - Aileen Lamb L.G.S.W. - 07/23/2015 2:25 PM CDT Hospital Patient Education The following Patient Education Materials have been given to the patient: Patient Education Materials: [facility] Document Id: [id number] Ori - Aileen Lamb L.G.S.W. - 07/23/2015 2:24 PM CDT Hospital Patient Education The following Patient Education Materials have been given to the patient: Patient Education Materials: [facility] Document Id: [id number] Ori - Rajendra Servin R.N. - 07/23/2015 2:04 PM CDT Adult Ongoing Assessment Adult Ongoing Assessment Entered On: 07/23/2015 14:08 CDT Performed On: 07/23/2015 14:04 CDT by RAJENDRA SERVIN Respiratory Respiratory Patient Stated Symptoms : None Respirations : Unlabored Distress : None Respiratory Pattern : Regular RAJENDRA SERVIN - 07/23/2015 14:04 CDT Cardiovascular CV Patient Stated Symptoms : None Antiembolism Device Yes/No : No RAJENDRA SERVIN - 07/23/2015 14:11 CDT Neurological Neuro Patient Stated Symptoms : None Orientation : Oriented x 3 Level of Consciousness : Alert Gait : Steady RAJENDRA SERVIN - 07/23/2015 14:11 CDT Psycho/Emotional Affect/Behavior : Calm, Cooperative, Appropriate, Appears depressed Pain Symptoms : No RAJENDRA SERVIN - 07/23/2015 14:11 CDT Coping Grid Identifies effective strategies : No Uses effective strategies : No Reports increase in psychological comfort : No Indicates sense of control : No Stressors perceived within control : No Stable mood with appropriate affect : No Behaviors indicate use of coping mechanism : No Family supportive and involved in care : Yes Values/Beliefs incorporated appropriately : Yes RAJENDRA SERVIN 07/23/2015 14:11 CDT Safety Grid Vision, Hearing, Mobility Adequate to Meet Safety Needs : Yes RAJENDRA SERVIN 07/23/2015 14:11 CDT Psycho/Emotional Detailed Assessment : Yes RAJENDRA SERVIN 07/23/2015 14:11 CDT Psycho/Emotional Detailed Hallucinations Present : None Orientation : Oriented x 3 Cognition : Adequate concentration, Judgement appropriate, Cooperative with 1:1 Behavior & General Appearance : Appropriate for situation RAJENDRA SERVIN 07/23/2015 14:11 CDT Suicide Risk Re-Assessment Ongoing Behaviors/Threats of Harm to Self : No Behaviors/Threats of Harm to Others : No Do you have a plan for suicide? : No RAJENDRA SERVIN 07/23/2015 14:11 CDT Gastrointestinal GI Patient Stated Symptoms : None RAJENDRA SERVIN 07/23/2015 14:11 CDT Nutrition Appetite : Fair Eating Difficulties : None Feeding Ability : Complete independence RAJENDRA SERVIN 07/23/2015 14:17 CDT Genitourinary Patient Stated Symptoms : None Urinary Elimination : Voiding, no difficulties RAEJNDRA SERVIN 07/23/2015 14:17 CDT Integumentary Skin Abnormality/Location Grid Location : Buttock Laterality : Right Abnormality : Rash RAJENDRA SERVIN 07/23/2015 14:17 CDT Ulices Sensory Perception Ulices : No impairment Moisture Ulices : Rarely moist Activity Ulices : Walks frequently Mobility Ulices : No limitations Nutrition Ulices : Probably inadequate Friction and Shear Ulices : No apparent problem Ulices Score : 21 RAJENDRA SERVIN 07/23/2015 14:17 CDT Musculoskeletal Musculoskeletal Patient Stated Symptoms : None RAJENDRA SERVIN 07/23/2015 14:17 CDT Hendrich II Fall Risk Confusion/Disorientation Hendrich : No Depression Fall Risk Hendrich : No Altered Elimination Fall Risk Hendrich : No Dizziness/Vertigo Fall Risk Hendrich : No Gender, Male Fall Risk Hendrich : No Prescribed Antiepileptics Hendrich : No Prescribed Benzodiazepines Hendrich : No Rising From Chair Fall Risk Hendrich : Able to rise in a single movement, no loss of balance with steps Fall Risk Score Janak II : 0 RAJENDRA SERVIN - 07/23/2015 14:17 CDT Safe Patient Handling Safe Pt Handling Independent : Yes - No equipment needed Safe Pt Handling Equipment Rec : No Equipment Needed RAJENDRA SERVIN - 07/23/2015 14:17 CDT Education General Patient Education Powergrid Topics : Plan of care Individuals Taught : Patient Barriers to Learning : None evident Teaching Method : Explanation Teaching Evaluation : Verbalizes understanding RAJENDRA SERVIN - 07/23/2015 14:17 CDT Source: [facility] Document Id: [id number] CDT!85 Ori - Grayson Mejia - 07/23/2015 2:01 PM CDT [facility] Patient Education The following Patient Education Materials have been given to the patient: Patient Education Materials: Source: [facility] Document Id: [id number] Ori - Aileen Lamb L.G.S.W. - 07/23/2015 1:36 PM CDT [facility] Patient Education The following Patient Education Materials have been given to the patient: Patient Education Materials: Source: [facility] Document Id: [id number] Ori - Rajendra Servin, RGordonNGordon - 07/23/2015 12:22 PM CDT Team Meeting Notes Team Meeting Notes Entered On: 07/23/2015 12:22 CDT Performed On: 07/23/2015 12:22 CDT by RAJENDRA SERVIN Team Notes Team Meeting Grid Discipline : Behavioral Health Nurse, Physician, Swage Tender, Other: Psychologist Topics : Plan of care MALATHI RAJENDRA Becerril - 07/23/2015 12:22 CDT Source: [facility] TextMaster Document Id: [id number] CDT!6 Ori - Rajendra Servin RGordonNGordon - 07/23/2015 9:42 AM CDT Adult Activities of Daily Living Adult Activities of Daily Living Entered On: 07/23/2015 9:42 CDT Performed On: 07/23/2015 9:42 CDT by NILDA ARTEAGA RN ADLs I Activity Status ADL : Up ad argenis Activity Assistance : Independent Assistive Device : None RAJENDRA SERVIN - 07/23/2015 14:36 CDT ADLs II Hygiene Assistance Grid Upper Body Dressing(Clothing) : Independent Lower Body Dressing(Clothing) : Independent RAJENDRA SERVIN - 07/23/2015 14:36 CDT Standard Safety : Bed in low position, ID band check, Night light, Non-Slip footwear, Wheels locked,Other: safety check q15min RAJENDRA SERVIN - 07/23/2015 14:36 CDT ADLs Adult Nutrition Lunch : 0 % MAGEDLINAANJALI Rola - 07/23/2015 14:03 CDT Diet Type : Diet -- 07/22/15 20:57:00 CDT, General (Regular) Feeding Assistance : Independent Breakfast : 40 % NILDA ARTEAGA RN - 07/23/2015 9:42 CDT [facility] Document Id: [id number] CDT!15 Ori - Alessandra Masterson RGordonNGordon - 07/23/2015 1:07 AM CDT Adult Activities of Daily Living Adult Activities of Daily Living Entered On: 07/23/2015 1:07 CDT Performed On: 07/23/2015 1:07 CDT by ALESSANDRA MASTERSON RN ADLs I Activity Status ADL : Up ad argenis Activity Assistance : Independent Assistive Device : None ALESSANDRA MASTERSON RN - 07/23/2015 1:07 CDT ADLs II Elimination Assistance Offered Q2H : Independent Standard Safety : Bed in low position, Wheels locked, Other: 15 min. safety checks ALESSANDRA MASTERSON RN - 07/23/2015 1:07 CDT [facility] [employer] Document Id: [id number] CDT!8 Miscellaneous - Alessandra Masterson R.N. - 07/23/2015 1:07 AM CDT Adult Ongoing Assessment Adult Ongoing Assessment Entered On: 07/23/2015 1:08 CDT Performed On: 07/23/2015 1:07 CDT by ALESSANDRA MASTERSON RN Respiratory Respiratory Patient Stated Symptoms : None Respirations : Unlabored Distress : None Respiratory Pattern : Regular Cough : None Suction : None Airway : Patent ALESSANDRA MASTERSON RN - 07/23/2015 1:07 CDT Cardiovascular CV Patient Stated Symptoms : None Antiembolism Device Yes/No : No ALESSANDRA MASTERSON RN - 07/23/2015 1:07 CDT Neurological Neuro Patient Stated Symptoms : None ALESSANDRA MASTERSON RN - 07/23/2015 1:07 CDT Psycho/Emotional Affect/Behavior : Calm, Cooperative, Appropriate Pain Symptoms : No ALESSANDRA MASTERSON RN - 07/23/2015 1:07 CDT Coping Grid Values/Beliefs incorporated appropriately : Yes ALESSANDRA MASTERSON RN - 07/23/2015 1:07 CDT Safety Grid Vision, Hearing, Mobility Adequate to Meet Safety Needs : Yes ALESSANDRA MASTERSON RN - 07/23/2015 1:07 CDT Psycho/Emotional Detailed Assessment : Yes ALESSANDRA MASTERSON RN - 07/23/2015 1:07 CDT Psycho/Emotional Detailed Participates in Age-specific Activities : Yes Behavior & General Appearance : Appropriate for situation ALESSANDRA MASTERSON RN - 07/23/2015 1:07 CDT Suicide Risk Re-Assessment Ongoing Behaviors/Threats of Harm to Self : Pt. sleeping Behaviors/Threats of Harm to Others : Pt. sleeping Do you have a plan for suicide? : Pt. sleeping ALESSANDRA MASTERSON RN - 07/23/2015 1:07 CDT Gastrointestinal GI Patient Stated Symptoms : None ALESSANDRA MASTERSON RN - 07/23/2015 1:07 CDT Genitourinary Patient Stated Symptoms : None ALESSANDRA MASTERSON RN - 07/23/2015 1:07 CDT Integumentary Integumentary Patient Stated Symptoms : None ALESSANDRA MASTERSON RN - 07/23/2015 1:07 CDT Skin Abnormality/Location Grid Location : Buttock Laterality : Right Abnormality : Rash ALESSANDRA MASTERSON RN - 07/23/2015 1:07 CDT Musculoskeletal Musculoskeletal Patient Stated Symptoms : None ALESSANDRA MASTERSON RN - 07/23/2015 1:07 CDT Hendrich II Fall Risk Confusion/Disorientation Hendrich : No Depression Fall Risk Hendrich : No Altered Elimination Fall Risk Hendrich : No Dizziness/Vertigo Fall Risk Hendrich : No Gender, Male Fall Risk Hendrich : No Prescribed Antiepileptics Hendrich : No Prescribed Benzodiazepines Hendrich : Yes Rising From Chair Fall Risk Hendrich : Able to rise in a single movement, no loss of balance with steps Fall Risk Score Hendrich II : 1 ALESSANDRA MASTERSON RN - 07/23/2015 1:07 CDT Safe Patient Handling Safe Pt Handling Independent : Yes - No equipment needed Safe Pt Handling Equipment Rec : No Equipment Needed ALESSANDRA MASTERSON RN - 07/23/2015 1:07 CDT [facility] Document Id: [id number] CDT!55 Miscellaneous - Price Dee R.N. - 07/22/2015 9:28 PM CDT Adult Activities of Daily Living Adult Activities of Daily Living Entered On: 07/22/2015 21:28 CDT Performed On: 07/22/2015 21:28 CDT by PRICE DEE RN ADLs I Activity Status ADL : Up ad argenis Activity Assistance : Independent Assistive Device : None PRICE DEE RN - 07/22/2015 21:28 CDT ADLs II Elimination Assistance Offered Q2H : Independent Standard Safety : Bed in low position, ID band check, Night light, Non-Slip footwear, Wheels locked,Other: Every 15 minute safety checks PRICE DEE RN - 07/22/2015 21:28 CDT ADLs Adult Nutrition Diet Type : Diet -- 07/22/15 20:57:00 CDT, General (Regular) Feeding Assistance : Independent PRICE DEE RN - 07/22/2015 21:28 CDT Source: [facility] Document Id: [id number] CDT!11 Miscellaneous - Price Dee RGordonNGordon - 07/22/2015 9:21 PM CDT Adult Admission Assessment Adult Admission Assessment Entered On: 07/22/2015 21:27 CDT Performed On: 07/22/2015 21:21 CDT by PRICE DEE RN Respiratory Respiratory Patient Stated Symptoms : None Respirations : Unlabored Distress : None Respiratory Pattern : Regular Cough : None Sputum Amount : None Suction : None Airway : Patent PRICE DEE RN - 07/22/2015 21:21 CDT Cardiovascular CV Patient Stated Symptoms : None Antiembolism Device Yes/No : No Skin Color : Normal for ethnicity Skin Description : Rash PRICE DEE RN - 07/22/2015 21:21 CDT Neurological Neuro Patient Stated Symptoms : None Orientation : Oriented x 3 Level of Consciousness : Alert Gait : Steady Swallowing Difficulty/Aspiration Risk : None PRICE DEE RN - 07/22/2015 21:21 CDT Psycho/Emotional Pain Symptoms : No Affect/Behavior : Calm, Cooperative, Appropriate Feels Rested : No PRICE DEE RN - 07/22/2015 21:21 CDT Safety Grid Vision, Hearing, Mobility Adequate to Meet Safety Needs : Yes PRICE DEE RN - 07/22/2015 21:21 CDT Psycho/Emotional Detailed Assessment : Yes PRICE DEE RN - 07/22/2015 21:21 CDT Psycho/Emotional Detailed Hallucinations Present : None Orientation : Oriented x 3 PRICE DEE RN - 07/22/2015 21:21 CDT Gastrointestinal GI Patient Stated Symptoms : None PRICE DEE RN - 07/22/2015 21:21 CDT Genitourinary Patient Stated Symptoms : None Urinary Elimination : Voiding, no difficulties PRICE DEE RN - 07/22/2015 21:21 CDT Integumentary Integumentary Patient Stated Symptoms : Rash PRICE DEE RN - 07/22/2015 21:21 CDT Skin Abnormality/Location Grid Location : Buttock Laterality : Right Abnormality : Rash Treatment : Other: Cephalexin PRICE DEE RN - 07/22/2015 21:21 CDT Skin Color : Normal for ethnicity PRICE DEE RN - 07/22/2015 21:21 CDT Ulices Sensory Perception Ulices : No impairment Moisture Ulices : Rarely moist Activity Ulices : Walks occasionally Mobility Ulices : No limitations Nutrition Ulices : Adequate Friction and Shear Ulices : No apparent problem Ulices Score : 21 PRICE DEE RN - 07/22/2015 21:21 CDT Musculoskeletal Musculoskeletal Patient Stated Symptoms : None PRICE DEE RN - 07/22/2015 21:21 CDT Hendrich II Fall Risk Confusion/Disorientation Hendrich : No Depression Fall Risk Hendrich : Yes Altered Elimination Fall Risk Hendrich : No Dizziness/Vertigo Fall Risk Hendrich : No Gender, Male Fall Risk Hendrich : No Prescribed Antiepileptics Hendrich : No Prescribed Benzodiazepines Hendrich : No Rising From Chair Fall Risk Hendrich : Able to rise in a single movement, no loss of balance with steps Fall Risk Score Hendrich II : 2 PRICE DEE RN - 07/22/2015 21:21 CDT Safe Patient Handling Safe Pt Handling Independent : Yes - No equipment needed Safe Pt Handling Equipment Rec : No Equipment Needed Repositioning Device Recommended : No PRICE DEE RN - 07/22/2015 21:21 CDT Education General Patient Education Powergrid Topics : Activity limitations/expectations, Plan of care, Use of pain scale(s), Other: Provide Patient's Bills of Rights, explains every 15 minute safety checks, groups. Individuals Taught : Patient Barriers to Learning : None evident Teaching Method : Explanation Teaching Evaluation : Verbalizes understanding PRICE DEE RN - 07/22/2015 21:21 CDT Source: [facility] [employer] Document Id: [id number] CDT!77 Miscellaneous - Tiffanie Win R.N. - 07/22/2015 8:06 PM CDT Basic Admission Information Basic Admission Information Entered On: 07/22/2015 20:52 CDT Performed On: 07/22/2015 20:06 CDT by TIFFANIE WIN Vital Signs Temperature Core : 36.7 DegC(Converted to: 98.1 DegF) Peripheral Pulse Rate : 105 /min (HI) Respiratory Rate : 18 /min Systolic Blood Pressure : 105 mmHg Diastolic Blood Pressure : 71 mmHg NIBP Mean : 82 mmHg BP Location : Left upper extremity SpO2 : 100 % Oxygen Therapy : Room air Height : 163 cm(Converted to: 5 ft 4 inch(es)) Actual Weight : 66.1 kg Actual Weight Conversion to Pounds : 145.42 lb Weight Source : Standing scale Body Mass Index : 24.88 kg/m2 TIFFANIE WIN - 07/22/2015 20:49 CDT Valuables/Belongings Valuables/Belongings Grid Valuables at Bedside Valuables Sent to Secured Storage Clothes, Patient Valuables : Undergarments, Other: 1 sweatshirt, 1 pair of shorts Shoes Electronic Devices : Cell phone TIFFANIE WIN - 07/22/2015 20:49 CDT TIFFANIE WIN - 07/22/2015 20:49 CDT Source: [facility] [employer] Document Id: [id number] CDT!23 documented in this encounter Plan of Treatment Not on filedocumented as of this encounter Procedures Procedure Name Priority Date/Time Associated Diagnosis Comme nts ECG Routine 07/23/2015 12:41 PM Results for this CDT procedure are i n the results section . documented in this encounter Results ECG 12 Lead (07/23/2015 12:41 PM CDT) Specimen (Source) Anatomical Collection Method Collection Time Re ceived Time Location / / Volume Laterality 07/23/2015 12:41 PM CDT [facility] - 07/23/2015 12:41 PM CDT Test Reason : EKG Blood Pressure : / mmHG Vent. Rate : 104 BPM ? Atrial Rate : 104 BPM ?? P-R Int : 132 ms ?QRS D ur : 072 ms ?QT Int : 334 ms ? P-R-T Axe s : 071 068 038 degrees ?? QTc Int : 439 ms Sinus tachycardia Nonspecific T wave abnormality No previous ECGs available Referred By: ANJELICA WIN ? Confirmed By:TOMI DE ANDA MD Procedure Note Provider, Olu Hammer - 06/29/2016F ormatting of this note might be different from the original. Test Reason : EKG Blood Pressure : / mmHG Vent. Rate : 104 BPM Atrial Rate : 104 B PM P-R Int : 132 ms QRS Dur : 072 ms QT Int : 334 ms P-R-T Axes : 071 068 03 8 degrees QTc Int : 439 ms Sinus tachycardia Nonspecific T wave abnormality No previous ECGs available Referred By: ANJELICA WIN Confirmed By:GOLD DE ANDA MD Tomi De Anda M.D., Ph.D. ECG ORDERABLES Performing Organization Address City/State/ZIP Code Phon e Number [facility] [address] [place] [address] documented in this encounter Visit Diagnoses Not on filedocumented in this encounter Additional Health Concerns Assessment Noted Time PHQ-9 Depression Total Score: 19 01/20/2015 2:44 PM CS T documented as of this encounter
--- OUTSIDE RECORDS SUMMARY | 2021-11-28 09:17 | XMS_ITS | Encounter Summary ---
:[address] [facility] Address [address] [place] [address] Care Team Providers Name Role Phone Kandi Alberts APRN C.N.P. Primary Care Provider [phone] Encounter Details Date Type Department Care Team Description 07/02/2017 Orders Only Department of Family [facility] Pel[facility] [place] [facility] [place], in [place] [address] [place] [phone] Social History Tobacco Use Types Packs/Day Years [...] How often do you attend mu-ism or amish Never 01/31/2019 services? 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 PCP - General 07/27/16 07/10/18 [address] [address] documented as of this encounter
--- OUTSIDE RECORDS SUMMARY | 2021-11-28 09:17 | XMS_ITS | Encounter Summary ---
:1985 Author Organization [facility] Address [address] [place] [address] Care Team Providers Name Role Phone Kandi Alberts APRN, C.N.P. Primary Care Provider [phone] Encounter Details Date Type Department Care Team Description 06/27/2017 Nurse Triage Department of [facility] Pushpa Bragg, Medicine, [facility], R.N. in [place], [place] [address] [place] [address] Social History Tobacco Use Types Packs/Day Years Used Date Smoking Tobacco: Never Alcohol Habits Answer Date Recorded How often [...] 11/27/2019 relatives? How often do you attend oriental orthodox or hoahaoism Never 01/31/2019 services? 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 PCP - General 07/27/16 07/10/18 [address], [place] [id number] documented as of this encounter
--- OUTSIDE RECORDS SUMMARY | 2021-11-28 09:17 | XMS_ITS | Encounter Summary ---
:1985 Author Organization [facility] Address [address] [place] [address] Care Team Providers Name Role Phone Kandi Alberts APRN C.NGordonPGordon Primary Care Provider [phone] Encounter Details Date Type Department Care Team Description 06/29/2017 Orders Only Department of [facility] Carito coronado Medicine, [facility] doreen [address] [place] [address] [facility] [place] [phone] (Wo rk) Social History Tobacco Use Types [...] often do you attend oriental orthodox or gnosticism Never 01/31/2019 services? 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 PCP - General 07/27/16 07/10/[address] [phone] documented as of this encounter
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
--- OUTSIDE RECORDS SUMMARY | 2021-11-28 09:17 | XMS_ITS | Encounter Summary ---
:1985 Author Organization [facility] Address [address] [place] [address] Care Team Providers Name Role Phone Unavailable Primary Care Provider Unavailable Encounter Details Date Type Department Care Team Description 08/19/2013 Hospital Encounter HX NO MAPPING Jef Casiano Jr., M.D. [address] [place], [place] [phone] (Wo rk) Social History [...] How often do you attend episcopal or latter-day Never 01/31/2019 services? 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
[2021-11-28 09:18] LABS: Alanine Aminotransferase* 15 U/L (4-35); Alkaline Phosphatase* 46 U/L (40-150); Lipase* 42 U/L (23-300)
--- OUTSIDE RECORDS SUMMARY | 2021-11-28 09:18 | XMS_ITS | Encounter Summary ---
:1985 Author Organization [facility] Address [address] [place] [address] Care Team Providers Name Role Phone Unavailable Primary Care Provider Unavailable Encounter Details Date Type Department Care Team Description 09/14/2009 Hospital Encounter HX [facility] Navi Major M.D. [address], [place] [address] (Wo rk) Social History Tobacco Use Types [...] How often do you attend [employer] or [facility] Never 01/31/2019 services? 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/2018 2:20 PM BRIDGE ATTACHER documented as of this encounter Progress Notes Uche Barakat M.D. - 09/14/2009 12:00 AM CDT [id number] IMPRESSION/REPORT/PLAN We will have her back in 6 weeks for a repeat Pap. I am also going to call in some Diflucan 150 every other day for 3 doses for her itching and slight discharge. CHIEF COMPLAINT/REASON FOR VISIT Wendi comes in today for colposcopy. 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 She had colposcopy done 6-8 months ago came back showing low grade PENELOPE. PHYSICAL EXAM AREA EXAM TEXT GENITALIA Colposcopy done here today. Entire T-zone is seen. I see now lesions whatsoever. BDB/mgd Signed Uche Barakat M.D. Obstetrics & Gynecology Electronically Signed By:UCHE BARAKAT MD On 09/27/2009 01:19 PM Source: [facility] MHSDOLBEYNONRADSYS Document Id: [id number] documented in this encounter Miscellaneous Notes Miscellaneous - Uche Barakat M.D. - 09/14/2009 2:06 PM CDT Ambulatory [place] [address] Visit Information Name: WILBERTHimaWENDI Current Date: 09/14/2009 14:06:58 Primary Care Provider: MICHAEL HANKINS [facility] [phone] WENDI ALEXANDER has been given the following list of medications: Your Medications It is important to take your medications as directed. Use a pill box or chart to help remind you to take your medications. Please let your doctor or nurse know if you have problems taking your medications. Medication/Strength Dose Route Frequency Indications/Special Instructions/Comments ethinyl estradiol-norgestimate (Ortho Tri-Cyclen) 1 Oral once a day Additional Information: Yes - Current list of reconciled medications is provided and explained to the patient and/or family, guardian/caregiver. Source: [facility] POWERCHART Document Id: [id number] Electronically signed by [facility] Manufacturers Agent [id number] at 07/17/2016 1:30 AM CDT Miscellaneous - Annabelle Godoy L.P.N. - 09/14/2009 2:00 PM CDT Reminder Msg Document Contains Addenda Addendum by ANNABELLE GODOY LPN on 13 January 2010 13:40:13 BRIDGE ATTACHER card sent From: ANNABELLE GODOY LPN To: ANNABELLE GODOY LPN; Sent: 09/14/2009 14:00:35 CDT Show up: 01/12/2010 14:00:00 BRIDGE ATTACHER Subject: Reminder Msg Due Date/Time: 02/25/2010 14:00:00 BRIDGE ATTACHER Please Remember to: send card to remind pt. to come in for 6 month recheck -pap PATIENT: last pap was 08/25/2009 ( ) Call Patient ( ) Ask Patient to ( ) ( ) Call Relative ( ) Schedule Patient ( ) ( ) Call for Meat Selector ( ) Follow up on Results ( ) Other: PROVIDER: ( ) Call Physician ( ) Call Pharmacist ( ) Call Lab ( ) Other: Special Instructions: Comments: Source: [facility] POWERCHART Document Id: [id number] Electronically signed by Komal [facility] Manufacturers Agent [id number] at 07/17/2016 1:30 AM CDT Miscellaneous - Annabelle Godoy L.P.N. - 09/14/2009 1:28 PM CDT Adult Automatic Car Wash Attendant Intake/History Adult Automatic Car Wash Attendant Intake/History Entered On: 09/14/2009 13:29 CDT Performed On: 09/14/2009 13:28 CDT by ANNABELLE GODOY LPN Intake Chief Complaint: colpo Peripheral Pulse Rate: 88bpm Systolic Blood Pressure: 90mmHg (LOW) Diastolic Blood Pressure: 54mmHg NIBP Mean: 66mmHg BP Location: Left upper extremity Actual Weight: 52.500kg(Converted to: 115.743lb) Dosing Weight Clinic: 52.50kg ANNABELLE GODOY LPN - 09/14/2009 13:28 CDT Subjective Pain Symptoms: No ANNABELLE GODOY LPN - 09/14/2009 13:28 CDT Dependent Habits Tobacco Use/Currently Using: No ANNABELLE GODOY LPN - 09/14/2009 13:28 CDT Caffeine Use Grid Caffeine Use: Current Type: Energy drinks Frequency: Weekly Amount: 1 ANNABELLE GODOY LPN - 09/14/2009 13:28 CDT Allergies Allergies (Active) NKA Estimated Onset Date: Unspecified ; Created By: SOTERO COLEMAN LPN; Reaction Status: Active ; Category: Drug ; Substance: NKA ; Type: Allergy ; Updated By: SOTERO COLEMAN LPN; Source: Family ; Reviewed Date: 08/25/2009 9:32 CDT Source: [facility] [employer] Document Id: [id number] documented in this encounter Plan of Treatment Not on filedocumented as of this encounter Visit Diagnoses Not on filedocumented in this encounter Additional Health Concerns Assessment Noted Time PHQ-9 Depression Total Score: 18 06/21/2009 11:24 AM C DT documented as of this encounter
--- OUTSIDE RECORDS SUMMARY | 2021-11-28 09:18 | XMS_ITS | Encounter Summary ---
:1985 Author Organization [facility] Address [address] [place] [address] Care Team Providers Name Role Phone Unavailable Primary Care Provider Unavailable Encounter Details Date Type Department Care Team Description 03/18/2012 Hospital Encounter HX [facility] Shayne Woody M.D. [address], [place] [phone] (Wo rk) Social History [...] How often do you attend jewish or sikh Never 01/31/2019 services? 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/2018 2:20 PM MANAGER LOCATION documented as of this encounter Last Filed Vital Signs Vital Sign Reading Time Taken Comments Blood Pressure 112/62 03/18/2012 2:51 PM MANAGER LOCATION Pulse - - Temperature - - Respiratory Rate - - Oxygen Saturation - - Inhaled Oxygen Concentration - - Weight 62.7 kg (138 lb 3.7 oz) 03/18/2012 2:51 PM MANAGER LOCATION Height - - Body Mass Index 25.12 02/12/2012 1:41 PM MANAGER LOCATION documented in this encounter Progress Notes Joy Shannon M.D. - 03/18/2012 2:47 PM CST [id number] CHIEF COMPLAINT/REASON FOR VISIT OB followup HISTORY OF PRESENT ILLNESS Wendi is a 26-year-old 5, para 1-0-3-1 female at 38 +2 weeks by last menstrual period consistent with 6 +1 week ultrasound who presents for OB followup today. I saw Wendi last week with complaints of a severe headache and started her on amoxicillin for acute sinusitis. She states that she still has pain behind her eyes but the headache has improved significantly. She also continues to have many of her vague complaints that have been related to as well as upper respiratory infectioncomplaints. Positive movement. No vaginal bleeding or leakage of fluid. Positive occasional con tractions. CURRENT MEDICATIONS 1. vitamin 1 tablet by mouth daily 2. Fluoxetine 40 mg by mouth daily ALLERGIES No known drug allergies SYSTEMS REVIEW GENERAL: Positive for chills and fatigue related to upper respiratory infection in . No fevers, unintentional weight loss or weight gain. HEENT: Positive for nasal congestion related to sinusitis. No changes in vision or hearing, no sore throat. CARDIOVASCULAR: No chest pain, irregular heartbeat or racing heart. RESPIRATORY: Positive for shortness of breath and cough related to upper respiratory infection. No wheeze. GASTROINTESTINAL: Positive for nausea and vomiting related to . No diarrhea, constipation or abdominal pain. GENITOURINARY: Positive for leaking stool and gas due to . No pain or burning with urination, no irregular vaginal bleeding, heavy periods, painful periods, abnormal vaginal discharge, leakingurine. SKIN: Positive for rash. No skin lesions. BREASTS: Positive for discharge from the nipples due to . No masses or lumps. NEURO: Positive for difficulty with memory due to . No numbness, tingling, falls. PSYCHE: Positive for history of anxiety and difficulty sleeping. No depression. ENDOCRINE: Positive for heat intolerance and excessive thirst related to . No cold intolerance or hair loss. COMPLICATIONS OF 1. History of depression, anxiety and suicide attempt early in 2. Rh negative status post RhoGAM on 01/26/2012. 3. Borderline personality disorder. 4. History of section which was a primary low transverse section with two-layer uterine closure. 5. Acute sinusitis. VITAL SIGNS WEIGHT 62.7 kg BLOOD PRESSURE: 112/62 PHYSICAL EXAM GENERAL: Well nourished female in no acute distress. ABDOMEN: Gravid, fundal height 37 cm, heart tones 150's LOWER EXTREMITIES: Nontender, trace edema bilateral lower extremities. GENITALIA: Cervix: Fingertip/50%/-2 station IMPRESSION/REPORT/PLAN Wendi is a 26-year old 5, para 1-0-3-1 female at 38 +2 weeks by last menstrual period consistent with 6 +1 week ultrasound who presents for OB followup today. 1. care: issues discussed today include review of TOLAC issues and education. 2. Sinusitis: The patient states that her symptoms are worse with the Neti Pot so she was advised not to use it. She will complete her course of antibiotics. Her symptoms are gradually improving. 3. Depression/anxiety: The patient has been restarted on fluoxetine and her symptoms are stable withthis. 4. Rh negative: Patient is status post RhoGAM on 01/26/2012 and will need RhoGAM in the period. 5. Followup: The patient will return in 1 week for OB followup. If she has any questions or concernsprior to that time she will call the clinic. Joy Shannon M.D./sofie Electronically Signed By: JOY SHANNON MD On: 03/19/2012 03:28 PM Source: [facility] MHSDOLBEYNONRADSYS Document Id: [id number] GER LOCATION documented in this encounter Procedure Notes Conversion, Historical Provider Ser - 03/18/2012 2:56 PM CST Urine Dipstick Urine Dipstick Entered On: 03/18/2012 14:56 MANAGER LOCATION Performed On: 03/18/2012 14:56 MANAGER LOCATION by LISA, ZURDO A Urine Dipstick UA Color POC : Yellow UA Appear POC : Clear UA Protein POC : Trace UA Glucose POC : Negative ZURDO GONZALEZ - 03/18/2012 14:56 MANAGER LOCATION Source: [facility] POWERCHART Document Id: [id number] Joy Shannon M.D. - 03/18/2012 12:00 AM CST 1RPT CHIEF COMPLAINT/REASON FOR VISIT This is an OB ultrasound procedure note HISTORY OF PRESENT ILLNESS INDICATIONS 26-year-old 5, para 1-0-3-1 female at 38 +2 weeks by last menstrual period consistent with 6+1 week ultrasound whose fundal height has measured 37 cm for the last 3 visits. Based on this ultrasound was recommended to assess growth. I was also concerned based on Shan's that the EFW was small. PROCEDURE: Transabdominal ultrasonography was performed and based on multiple biometric measurements growth is at the 22nd percentile with EFW of 2753 g. The head measurements are less than 2nd percentile for both BPD and head circumference. Otherwise amniotic fluid appears normal and the fetus is vertex presentation. IMPRESSION/REPORT/PLAN Normal overall growth. Will continue to monitor fundal height. Joy Shannon M.D./sofie Electronically Signed By: JOY SHANNON MD On: 03/19/2012 03:27 PM Source: [facility] MHSDOLBEYNONRADSYS Document Id: [id number] GER LOCATION documented in this encounter Miscellaneous Notes Miscellaneous - Gertrudis Baltazar R.N. - 03/21/2012 8:39 AM CST Medication Refill Msg Document Contains Addenda Addendum by GERTRUDIS ELLISON on 21 March 2012 10:15:29 MANAGER LOCATION Called and informed the patient, thanks. Addendum by JOY SHANNON MD on 21 March 2012 09:58:36 MANAGER LOCATION From: JOY SHANNON MD To: GERTRUDIS ELLISON; Sent: 03/21/2012 09:58:36 MANAGER LOCATION Subject: RE: Medication Refill Msg She should have 2 more refills of that on the original rx. Addendum by GERTRUDIS ELLISON on 21 March 2012 09:49:53 MANAGER LOCATION From: GERTRUDIS ELLISON To: JOY SHANNON MD; Sent: 03/21/2012 09:49:53 MANAGER LOCATION Subject: RE: Medication Refill Msg Pt. stated that she requested the Amoxicillin by accident and she actually meant to request a refillof Vitamins (not on our protocol to fill). Please advise, thank you. Addendum by JOY SHANNON MD on 21 March 2012 09:43:08 MANAGER LOCATION From: JOY SHANNON MD To: GERTRUDIS ELLISON; Sent: 03/21/2012 09:43:08 MANAGER LOCATION Subject: RE: Medication Refill Msg I will not refill this rx. The patient's sinusitis should be adequately treated with a 7 day course of antibiotics, which the patient has already had. If her symptoms are still present, she needs to see me. Please inform the patient. 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 - 03/18/2012 5:22 PM CST Amb[place] [address] Visit Information Name: WENDI ODONNELL [facility] Number: [id number] Visit Date: 03/18/2012 17:22:08 Attending Provider: JOY SHANNON MD Primary Care Provider: PIPO JUAREZ AMBER LEE has been given the following list of medications: Your Medications It is important to take your medications as directed. Use a pill box or chart to help remind you to take your medications. Please let your doctor or nurse know if you have problems taking your medications. Medication/Strength Dose Route Frequency Indications/Special Instructions/Comments amoxicillin (amoxicillin 875 mg oral tablet) 875 mg Oral two times a day for 7 Days fluoxetine (fluoxetine 40 mg oral capsule) 40 mg Oral once a day multivitamin, ( Multivitamins oral tablet) 1 tab(s) Oral once a day Attention: If you have any medications at home that are not on this list, DO NOT take them until youcontact your provider for clarification. Additional Information: Source: [facility] POWERCHART Document Id: [id number] GER LOCATION Joy Sapp M.D. - 03/18/2012 5:22 PM CST Ambulatory [place] [address] Visit Information Name: WENDI ODONNELL [facility] Number: [id number] Visit Date: 03/18/2012 17:22:09 Attending Provider: JOY SHANNON MD Primary Care Provider: PIPO JUAREZWENDI has been given the following list of medications: Your Medications It is important to take your medications as directed. Use a pill box or chart to help remind you to take your medications. Please let your doctor or nurse know if you have problems taking your medications. Medication/Strength Dose Route Frequency Indications/Special Instructions/Comments amoxicillin (amoxicillin 875 mg oral tablet) 875 mg Oral two times a day for 7 Days fluoxetine (fluoxetine 40 mg oral capsule) 40 mg Oral once a day multivitamin, ( Multivitamins oral tablet) 1 tab(s) Oral once a day Attention: If you have any medications at home that are not on this list, DO NOT take them until youcontact your provider for clarification. Additional Information: Source: [facility] POWERCHART Document Id: [id number] GER LOCATION Miscellaneous - Conversion, Historical Provider Ser - 03/18/2012 2:51 PM MANAGER LOCATION Adult Fax Machine Operator Intake/History Adult Fax Machine Operator Intake/History Entered On: 03/18/2012 14:52 MANAGER LOCATION Performed On: 03/18/2012 14:51 MANAGER LOCATION by ZURDO GONZALEZ Intake Chief Complaint : ob visit 38+2 Systolic Blood Pressure : 112mmHg Diastolic Blood Pressure : 62mmHg NIBP Mean : 79mmHg BP Location : Left upper extremity Blood Pressure Cuff Size : Regular Actual Weight : 62.7kg(Converted to: 138lb 4oz) Dosing Weight Clinic : 62.70kg ZURDO GONZALEZ - 03/18/2012 14:51 MANAGER LOCATION Subjective Pain Symptoms : No ZURDO GONZALEZ - 03/18/2012 14:51 MANAGER LOCATION Dependent Habits Tobacco Use/Currently Using : No Tobacco Use/Last 12 months : No Smoking Status : Never smoker ZURDO GONZALEZ - 03/18/2012 14:51 MANAGER LOCATION Caffeine Use Grid Caffeine Use : Current Type : Energy drinks Frequency : Weekly Amount : 1 ZURDO GONZALEZ - 03/18/2012 14:51 MANAGER LOCATION Allergy Allergies (Active) NKA Estimated Onset Date: Unspecified ; Created By: SOTERO COLEMAN LPN; Reaction Status: Active ; Category: Drug ; Substance: NKA ; Type: Allergy ; Updated By: SOTERO COLEMAN LPN; Source: Family ; Reviewed Date: 03/04/2012 10:18 MANAGER LOCATION Source: [facility] POWERCHART Document Id: [id number] documented in this encounter Plan of Treatment Not on filedocumented as of this encounter Procedures Procedure Name Priority Date/Time Associated Diagnosis Comme nts HX UA GLUCOSE POC Routine 03/18/2012 2:56 PM Resu lts for this MANAGER LOCATION procedure are i n the results section. HX UA APPEAR POC Routine 03/18/2012 2:56 PM Resul ts for this MANAGER LOCATION procedure are i n the results section. DIPSTICK, POCT, U Routine 03/18/2012 2:56 PM Resu lts for this (DIPC1) MANAGER LOCATION procedure are i n the results section. DIPSTICK, POCT, U Routine 03/18/2012 2:56 PM Resu lts for this (DIPC1) MANAGER LOCATION procedure are i n the results section. documented in this encounter Results HX UA GLUCOSE POC (03/18/2012 2:56 PM MANAGER LOCATION) P athologist Signature Glucose, POCT, Negative POWERCHART U Specimen (Source) Anatomical Collection Method Collection Time Re ceived Time Location / / Volume Laterality 03/18/2012 2:56 PM MANAGER LOCATION Historical Provider LAB HISTORICAL ORDERS Performing Organization Address City/State/ZIP Code Phon e Number POWERCHART Dipstick, POCT, Urine (lab) (03/18/2012 2:56 PM MANAGER LOCATION) P athologist Signature Protein, POCT, Trace POWERCHART U Specimen (Source) Anatomical Collection Method Collection Time Re ceived Time Location / / Volume Laterality 03/18/2012 2:56 PM MANAGER LOCATION Historical Provider LAB POCT ORDERABLES - DEVICE Performing Organization Address City/State/ZIP Code Phon e Number POWERCHART HX UA APPEAR POC (03/18/2012 2:56 PM MANAGER LOCATION) P athologist Signature Appearance Clear POWERCHART Specimen (Source) Anatomical Collection Method Collection Time Re ceived Time Location / / Volume Laterality 03/18/2012 2:56 PM MANAGER LOCATION Historical Provider LAB HISTORICAL ORDERS Performing Organization Address City/[facility]/ZIP Code Phon e Number POWERCHART Dipstick, POCT, Urine (lab) (03/18/2012 2:56 PM MANAGER LOCATION) P athologist Signature Color Yellow POWERCHART Specimen (Source) Anatomical Collection Method Collection Time Re ceived Time Location / / Volume Laterality 03/18/2012 2:56 PM MANAGER LOCATION Historical Provider LAB POCT ORDERABLES - DEVICE Performing Organization Address [facility] Phon e Number POWERCHART documented in this encounter Visit Diagnoses Not on filedocumented in this encounter Additional Health Concerns Assessment Noted Time PHQ-9 Depression Total Score: 18 06/21/2009 11:24 AM C DT documented as of this encounter
--- OUTSIDE RECORDS SUMMARY | 2021-11-28 09:18 | XMS_ITS | Encounter Summary ---
:1985 Author Organization [facility] Address [address] [place] [address] Care Team Providers Name Role Phone Unavailable Primary Care Provider Unavailable Encounter Details Date Type Department Care Team Description 08/25/2009 Hospital Encounter HX [facility] Navi Major M.D. [address], [place] [address] (Wo rk) Social History Tobacco [...] How often do you attend alevism or nondenominational Never 01/31/2019 services? 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 - 08/25/2009 12:00 AM CDT [id number] IMPRESSION/REPORT/PLAN ThinPrep is obtained. We will see her back as needed. CHIEF COMPLAINT/REASON FOR VISIT The patient comes in today for repeat Pap. HISTORY OF PRESENT ILLNESS Back in December she had colposcopy, which showed GISSEL 1. She otherwise is doing well. She is on control. BDB/mgd Signed Uche Barakat M.D. Obstetrics & Gynecology Electronically Signed By:UCHE BARAKAT MD On 08/26/2009 02:40 PM Source: [facility] MHSDOLBEYNONRADSYS Document Id: [id number] documented in this encounter Miscellaneous Notes Miscellaneous - Komal, Historical Provider Ser - 09/06/2009 11:00 AM CDT Reminder Msg Document Contains Addenda Addendum by ZURDO GONZALEZ on 01 August 2011 10:16:43 CDT done From: MADISON MOSLEY LPN To: MADISON MOSLEY LPN; Sent: 09/06/2009 11:00:13 CDT Show up: 07/28/2011 10:59:00 CDT Subject: Reminder Msg Due Date/Time: 08/28/2011 11:00:00 CDT Please Remember to: Send patient pap reminder PATIENT: ( x ) Call Patient ( ) Ask Patient to ( ) ( ) Call Relative ( ) Schedule Patient ( ) ( ) Call for Clinical Microbiologist ( ) Follow up on Results ( x ) Other: send letter PROVIDER: ( ) Call Physician ( ) Call Pharmacist ( ) Call Lab ( ) Other: Special Instructions: Comments: Source: [facility] POWERCHART Document Id: [id number] Miscellaneous - Uche Barakat M.D. - 08/31/2009 12:00 AM CDT [id number] August 31, 2009 Wendi Belle [address] [place], [place] [id number] Dear Wendi, I just want to touch base with you concerning your most recent Pap smear. Unfortunately, your Pap smear came back slightly abnormal once again. To be completely safe I think it is important that you make an appointment at your earliest convenience to repeat the colposcopy that we did back 6-7 months ago. Please call our office at your earliest convenience at [phone]. Sincerely, Uche Barakat M.D. 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 Intake/History Entered On: 08/25/2009 9:34 CDT Performed On: 08/25/2009 9:33 CDT by MADISON MOSLEY LPN Intake Chief Complaint: recheck colpo done last nov Ambulatory Intake Additional Information: medications reviewed Peripheral Pulse Rate: 84bpm Heart Rhythm: Regular Systolic Blood Pressure: 104mmHg Diastolic Blood Pressure: 62mmHg NIBP Mean: 76mmHg BP Location: Right upper extremity Actual Weight: 51.000kg(Converted to: 112.436lb) Dosing Weight Clinic: 51.00kg MADISON MOSLEY LPN - 08/25/2009 9:33 CDT Subjective Pain Symptoms: No MADISON MOSLEY LPN - 08/25/2009 9:33 CDT Dependent Habits Tobacco Use/Currently Using: No MADISON MOSLEY LPN - 08/25/2009 9:33 CDT Caffeine Use Grid Caffeine Use: Current Type: Energy drinks Frequency: Weekly Amount: 1 MADISON MOSLEY LPN - 08/25/2009 9:33 CDT Allergies Allergies (Active) NKA Estimated Onset Date: Unspecified ; Created By: SOTERO COLEMAN LPN; Reaction Status: Active ; Category: Drug ; Substance: NKA ; Type: Allergy ; Updated By: SOTERO COLEMAN LPN; Source: Family ; Reviewed Date: 08/25/2009 9:32 CDT Source: [facility] POWERCHART Document Id: [id number] documented in this encounter Plan of Treatment Not on filedocumented as of this encounter Procedures Procedure Name Priority Date/Time Associated Diagnosis Comme nts HXPHYS INTERP OF Routine 08/25/2009 9:43 AM Resul ts for this THIN PREP, PAP CDT procedure are in the results section. THINPREP SCREEN HPV Routine 08/25/2009 9:43 AM Re sults for this REFLEX CDT procedure are i n the results section. documented in this encounter Results HX Hx phys Interp of Thin Prep, Pap (08/25/2009 9:43 AM CDT) [facility] Scratch Hard Method Time Signature Interpretation Performed POWERCHART Comment: Test Performed by: [facility] Dpt of Lab Med and Pathology [address] [place], [place] [id number] Sales Enablement Consultant: Delano bella III, M.D. Specimen Anatomical Collection Method Collection Time Receive d Time (Source) Location / / Volume Laterality Cervix/Endocervi 08/25/2009 9:43 AM 08/25 6:45 x CDT PM CDT Historical Provider LAB HISTORICAL ORDERS Performing Organization Address City/State/ZIP Code Phon e Number POWERCHART ThinPrep Screen HPV Reflex (08/25/2009 9:43 AM CDT) [facility] Scratch Hard Method Time Signature Interpretation [id number] POWERCHART HXThPrep Scrn See Comment POWERCHART [facility] Comment: A. ??ThinPrep Pap Test Screen (Cervical/ Endocervical HPV Reflex): Satisfactory for evaluation. Squamous epithelial cell abnormality Low grade squamous intraepithelial lesio n. 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 Screened at [facility] Cytology Analysi s Office [address] [place] [id number] [facility] See Comment BERNABE KEYEST Comment: RESULT: MASSIMO Arreola(ASC P) HXThPrep Scrn [facility] See Comment BERNABE RCKRIST Comment: RESULT: 08/31/2009 13:30 Interpreted by: Nancy Arroyo M.D. Report electronically signed by Nancy Arroyo M.D. Transcribed by: [facility] ??08/31/2009 12:28:27 HX Spec Desc-[place] See Comment POWERCHART Comment: A. ??ThinPrep Pap Test Screen (Cervical/ Endocervical HPV Reflex): Received blood tinged specimen in ThinPr ep vial. Test Performed by: [facility] Dpt of Lab Med and Pathology [address] [place] [address] Sales Enablement Consultant: Delano bella III, M.D. Specimen (Source) Anatomical Collection Method Collection Time Re ceived Time Location / / Volume Laterality Cervix/Endocervix 08/25/2009 9:43 AM CDT Uche Barakat M.D. LAB PAP PATHDX ORDERABLES Performing Organization Address City/State/ZIP Code Phon e Number POWERCHART documented in this encounter Visit Diagnoses Not on filedocumented in this encounter Additional Health Concerns Assessment Noted Time PHQ-9 Depression Total Score: 18 06/21/2009 11:24 AM C DT documented as of this encounter
--- OUTSIDE RECORDS SUMMARY | 2021-11-28 09:18 | XMS_ITS | Encounter Summary ---
:1985 Author Organization [facility] Address [address] [place] [address] Care Team Providers Name Role Phone Unavailable Primary Care Provider Unavailable Encounter Details Date Type Department Care Team Description 03/04/2012 Hospital Encounter HX [facility] Shayne Woody M.D. [address] [place], [place] [phone] (Wo rk) Social History [...] How often do you attend gnosticist or confucianist Never 01/31/2019 services? 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 - 03/04/2012 10:11 AM CST [id number] CHIEF COMPLAINT/REASON FOR VISIT OB followup HISTORY OF PRESENT ILLNESS Wendi is a 26-year-old para 1-0-3-1 female at 36 +2 weeks by last menstrual period consistent with 6+1 week ultrasound who presents for OB followup today. I initially saw her 3 weeks ago in consultation for prior section. She desires . At that time she was having significant issues with depression and anxiety during the and had actually had an attempt at suicide early in the . She had been on Fluoxetine but stopped it. She was restarted on the Fluoxetine at the last visit and states that her symptoms have been much improved since that time. Otherwise she complains of sharp shooting pain in the midline for pubic symphysis extending toward the vagina. This lasts about 10 seconds and is quite intense but then it resolve. Sometimes she has it as often as once every half an hour but other times she has it only a couple of times a day. Positive movement. No vaginal bleeding or leakage of fluid. Possible occasional contractions. CURRENT MEDICATIONS 1. vitamin 1 tablet by mouth daily 2. Fluoxetine 40 mg by mouth daily ALLERGIES No known drug allergies SYSTEMS REVIEW GENERAL: Fatigue related to . No fevers, chills, unintentional weight loss or weight gain. HEENT: Positive for nasal congestion and the patient believes she might be getting an upper respiration infection. No changes in vision or hearing, no sore throat. CARDIOVASCULAR: No chest pain, irregular heartbeat or racing heart. RESPIRATORY: Positive for shortness of breath and cough, again possibly related to an upper respiratory infection. No wheeze. GASTROINTESTINAL: Positive for nausea related to . No vomiting, diarrhea, constipation or abdominal pain. GENITOURINARY: Positive for leaking urine related to . No pain or burning with urination, no irregular vaginal bleeding, heavy periods, painful periods, abnormal vaginal discharge, leaking stool or gas. SKIN: No rashes or skin lesions. BREASTS: Positive for discharge from the nipples related to . No masses or lumps. NEURO: No difficulty with memory, numbness, tingling, falls. PSYCHE: Positive for anxiety, depression, and difficulty sleeping and these symptoms have all improved recently with the Fluoxetine. ENDOCRINE: Positive for heat intolerance and excessive thirst related to . No cold intolerance, or hair loss. COMPLICATIONS OF 1. History of depression and anxiety with suicide attempt early in the 2. Rh negative status post RhoGAM on 01/26/2012 3. Borderline personality disorder 4. History of section which was a primary low transverse section with two-layer uterine closure. VITAL SIGNS WEIGHT 60.8 kg BLOOD PRESSURE: 102/58 PHYSICAL EXAM GENERAL: Well nourished female in no acute distress. ABDOMEN: Gravid, fundal height 36 cm, heart tones 140's, fetus vertex by Shan's. PELVIS: Cervix: Closed/long/high LOWER EXTREMITIES: Nontender, trace edema bilateral lower extremities. IMPRESSION/REPORT/PLAN 26-year-old 5, para 1-0-3-1 female at 36 +2 weeks by last menstrual period consistent with 6+3 week ultrasound who presents for OB followup today. 1. care: issues discussed today include anesthesia plans in labor and I have encouraged an epidural due to the . The patient is in agreement with this. movement monitoring was discussed, labor signs were discussed and circumcision was discussed and they would like a male circumcised. 2. Prior section: Based on the operative report the patient underwent a primary low transverse section with two-layer uterine closure. Therefore, the patient is a candidate and the consent form was signed at the last visit. She does report a history of arrest of labor at 6 cm and this was confirmed with the operative report. We discussed at the last visit that this does decrease her chance somewhat for successful . However, at this point after discussing risks and benefits of scheduled repeat section versus TOLAC the patient would like to proceed with TOLAC. We have discussed the need to make sure labor is progressing adequately and other steps we could take ifshe requires section to improve bonding between her and the infant. 3. Depression, anxiety with suicide attempt in early : Patient states that her symptoms have improved significantly with the Fluoxetine. Her PHQ9 score was 19 at the last visit and we will repeat this when the patient returns. We will continue to monitor this throughout the in particularly in the period. 4. Rh negative: Patient received RhoGAM on 01/26/2012. She will need RhoGAM again in the postpartumperiod. 5. Pubic symphysis pain: This is likely musculoskeletal and is elicited when I palpate her pubic symphysis. She was counseled that this is not dangerous but will likely continue until she delivers thebaby. She should minimize activities that make this pain worse. 6. Followup: Patient will return in 1 week for OB followup. If she has any questions or concerns prior to that time she will call the clinic. Emmy Shannon M.D./sofie Electronically Signed By: EMMY SHANNON MD On: 03/05/2012 06:28 PM Source: [facility] MHSDOLBEYNONRADSYS Document Id: [id number] TENDER documented in this encounter Procedure Notes Conversion, Historical Provider Ser - 03/04/2012 10:24 AM CST Urine Dipstick Urine Dipstick Entered On: 03/04/2012 10:24 DRUM TENDER Performed On: 03/04/2012 10:24 DRUM TENDER by MARKUS FREDERICK LPN Urine Dipstick UA Protein POC : Trace UA Glucose POC : Negative MARKUS FREDERICK LPN - 03/04/2012 10:24 DRUM TENDER Source: [facility] POWERCHART Document Id: [id number] documented in this encounter Miscellaneous Notes Miscellaneous - Emmy Shannon M.D. - 03/08/2012 12:17 PM CST Results Notification Document Contains Addenda Addendum by ZURDO GONZALEZ on 08 March 2012 17:06:22 DRUM TENDER added to chart From: EMMY SHANNON MD To: ZURDO GONZALEZ Sent: 03/08/2012 12:17:30 DRUM TENDER ! Show up: 03/08/2012 18:17:30 [facility] Subject: Results Notification Actions: Note to Nurse Source: [facility] POWERCHART Document Id: [id number] Electronically signed by Komal [facility] Supervisor Waterproofing [id number] at 07/12/2016 8:47 PM CDT Emmy Sapp M.D. - 03/04/2012 1:23 PM CST Ambulatory Patient Summary [address] [address] Visit Information Name: WENDI ODONNELL [facility] Number: [id number] Visit Date: 03/04/2012 13:23:51 Attending Provider: EMMY SHANNON MD Primary Care [...] your provider for clarification. Additional Information: Source: [facility] POWERCHART Document Id: [id number] TENDER Emmy Sapp M.D. - 03/04/2012 1:23 PM CST Ambulatory Depart Summary [address] [address] Visit Information Name: WENDI ODONNELL [facility] Number: [id number] Visit Date: 03/04/2012 13:23:50 Attending Provider: EMMY SHANNON MD Primary Care Provider: PIPO JUAREZWENDI [...] your provider for clarification. Additional Information: Source: 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 Onset of Symptoms : LMP 5-12-12 Systolic Blood Pressure : 102mmHg Diastolic Blood Pressure : 58mmHg NIBP Mean : 73mmHg BP Location : Left upper extremity Blood Pressure Cuff Size : Regular Actual Weight : 60.8kg(Converted to: 134lb 1oz) Weight Source : Standing scale Dosing Weight Clinic : 60.80kg MARKUS FREDERICK LPN - 03/04/2012 10:18 DRUM TENDER Subjective Pain Symptoms : No MARKUS FREDERICK LPN - 03/04/2012 10:18 DRUM TENDER Dependent Habits Tobacco Use/Currently Using : No Smoking Status : Unknown if ever smoke MARKUS FREDERICK LPN - 03/04/2012 10:18 DRUM TENDER Caffeine Use Grid Caffeine Use : Current Type : Energy drinks Frequency : Weekly Amount : 1 MARKUS FREDERICK MICK - 03/04/2012 10:18 DRUM TENDER Allergy Allergies (Active) NKA Estimated Onset Date: Unspecified ; Created By: SOTERO COLEMAN LPN; Reaction Status: Active ; Category: Drug ; Substance: NKA ; Type: Allergy ; Updated By: SOTERO COLEMAN LPN; Source: Family ; Reviewed Date: 03/04/2012 10:18 DRUM TENDER Source: [facility] POWERCHART Document Id: [id number] documented in this encounter Plan of Treatment Not on filedocumented as of this encounter Procedures Procedure Name Priority Date/Time Associated Diagnosis Comme nts GRP B STREP (S. Routine 03/04/2012 10:50 AM Resul ts for this AGALACTIAE) CULTURE DRUM TENDER procedur e are in the results section. BACTERIAL CULTURE, Routine 03/04/2012 10:50 AM Re sults for this AEROBIC, URINE DRUM TENDER procedure are in the results section. HX UA GLUCOSE POC Routine 03/04/2012 10:24 AM Res ults for this DRUM TENDER procedure are i n the results section. HX UA GLUCOSE POC Routine 03/04/2012 10:24 AM Res ults for this DRUM TENDER procedure are i n the results section. DIPSTICK, POCT, U Routine 03/04/2012 10:24 AM Res ults for this (DIPC1) DRUM TENDER procedure are i n the results section. DIPSTICK, POCT, U Routine 03/04/2012 10:24 AM Res ults for this (DIPC1) DRUM TENDER procedure are i n the results section. documented in this encounter Results Bacterial Culture, Aerobic, Urine (03/04/2012 10:50 AM DRUM TENDER) [facility] gist Method Time Signature Bacterial POWERCHART Culture, Aerobic, Urine HXFinal See POWERCHART scanned/paper report. Test performed at [facility]. Specimen (Source) Anatomical Collection Method Collection Time Re ceived Time Location / / Volume Laterality Urine, Clean 03/04/2012 10:50 Catch AM DRUM TENDER Emmy Shannon M.D. LAB MICROBIOLOGY - GENERAL O RDERABLES Performing Organization Address City/State/ZIP Code Phon e Number POWERCHART Grp B Strep (S. Agalactiae) Culture (03/04/2012 10:50 AM DRUM TENDER) Patholo gist Method Time Signature Grp B Strep POWERCHART (S. agalactiae) Culture HXFinal See POWERCHART scanned/paper report. Test performed at [facility]. Specimen (Source) Anatomical Collection Method Collection Time Re ceived Time Location / / Volume Laterality Vaginal/Rectum 03/04/2012 10:50 AM DRUM TENDER Emmy Shannon M.D. LAB MICROBIOLOGY - GENERAL O RDERABLES Performing Organization Address City/State/ZIP Code Phon e Number POWERCHART HX UA GLUCOSE POC (03/04/2012 10:24 AM DRUM TENDER) P athologist Signature Glucose, POCT, Negative POWERCHART U Specimen (Source) Anatomical Collection Method Collection Time Re ceived Time Location / / Volume Laterality 03/04/2012 10:24 AM DRUM TENDER Historical Provider LAB HISTORICAL ORDERS Performing Organization Address [facility] Code Phon e Number POWERCHART Dipstick, POCT, Urine (lab) (03/04/2012 10:24 AM DRUM TENDER) P athologist Signature Protein, POCT, Trace POWERCHART U Specimen (Source) Anatomical Collection Method Collection Time Re ceived Time Location / / Volume Laterality 03/04/2012 10:24 AM DRUM TENDER Historical Provider LAB POCT ORDERABLES - DEVICE Performing Organization Address [facility] Code Phon e Number POWERCHART HX UA GLUCOSE POC (03/04/2012 10:24 AM DRUM TENDER) P athologist Signature Glucose, POCT, Negative POWERCHART U Specimen (Source) Anatomical Collection Method Collection Time Re ceived Time Location / / Volume Laterality 03/04/2012 10:24 AM DRUM TENDER Historical Provider LAB HISTORICAL ORDERS Performing Organization Address City/State/ZIP Code Phon e Number POWERCHART Dipstick, POCT, Urine (lab) (03/04/2012 10:24 AM DRUM TENDER) P athologist Signature Protein, POCT, Trace POWERCHART U Specimen (Source) Anatomical Collection Method Collection Time Re ceived Time Location / / Volume Laterality 03/04/2012 10:24 AM DRUM TENDER Historical Provider LAB POCT ORDERABLES - DEVICE Performing Organization Address City/State/ZIP Code Phon e Number POWERCHART documented in this encounter Visit Diagnoses Not on filedocumented in this encounter Additional Health Concerns Assessment Noted Time PHQ-9 Depression Total Score: 18 06/21/2009 11:24 AM C DT documented as of this encounter
--- OUTSIDE RECORDS SUMMARY | 2021-11-28 09:18 | XMS_ITS | Encounter Summary ---
:1985 Author Organization [facility] Address [address] [place] [address] Care Team Providers Name Role Phone Unavailable Primary Care Provider Unavailable Encounter Details Date Type Department Care Team Description 10/02/2011 Hospital Encounter HX NO MAPPING Kyler Pantoja III, M.D. (Skip), M.P.H. [address] [place], [place] [address] (Wo rk) Social History Tobacco Use Types [...] How often do you attend holiness or uatsdin Never 01/31/2019 services? 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
--- OUTSIDE RECORDS SUMMARY | 2021-11-28 09:18 | XMS_ITS | Encounter Summary ---
:1985 Author Organization [facility] Address [address] [place] [address] Care Team Providers Name Role Phone Unavailable Primary Care Provider Unavailable Encounter Details Date Type Department Care Team Description 06/21/2009 Hospital Encounter HX [facility] Michelle Hankins, TATY, C.N.P. [address] [place] [address] (Wo rk) Social History Tobacco [...] How often do you attend shinto or shinto Never 01/31/2019 services? 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/2018 2:20 PM [employer] documented as of this encounter Progress Notes Michael Hankins, TATY, C.N.P. - 06/21/2009 12:00 AM CDT [id number] IMPRESSION/REPORT/PLAN 1. Depression. Strongly encouraged her to schedule for counseling along with Citalopram. We will recheck again in 1 month. 2. She was given Gardasil #3 today. CHIEF COMPLAINT/REASON FOR VISIT Depression HISTORY OF PRESENT ILLNESS Wendi is here for recheck on depression. She is on Citalopram 20 mg daily. She states she has very little energy. She does get up and go to work. At her last visit I strongly encouraged her to schedule for counseling. She actually made two appointments but never kept either one. I took a long time discussing again with her the importance of counseling along with medication for best efficacy. She states she will schedule another appointment. She is due for her third Gardasil immunization. CURRENT MEDICATIONS See Depart Summary from today ALLERGIES See EMR PREVENTIVE SERVICES See EMR VITAL SIGNS See EMR PHYSICAL EXAM AREA EXAM TEXT GENERAL Well developed well nourished female in no acute distress. SKIN Warm and dry. HEAD HEENT unremarkable. HEART Heart regular rate and rhythm. LUNGS Lungs clear to auscultation. MENTAL Eye contact normal. Speech clear and fluent, normal rate and volume. Affect expressive. Insight and judgment intact. No suicidality. SJM/clf Signed Michael Hankins, MSN, PILLOW FILLER, CDE Family Nurse Practitioner Electronically Signed By:MICHAEL HANKINS CNP On 06/22/2009 03:42 PM Source: [facility] MHSDOLBEYNONRADSYS Document Id: [id number] documented in this encounter Miscellaneous Notes Miscellaneous - Michael Hankins APRN, C.N.P. - 06/21/2009 11:53 AM CDT Ambulatory Depart Summary [address] [address] Visit Information Name: WENDI ALEXANDER Current Date: 06/21/2009 11:53:15 Primary Care Provider: WENDI ALEXANDER has been given the following [...] (Ortho Tri-Cyclen) 1 Oral once a day citalopram (citalopram 20 mg oral tablet) 1 tab(s) Oral once a day Additional Information: Yes - Current list of reconciled medications is provided and explained to the patient and/or family, guardian/caregiver. Source: [facility] [employer]Bank Document Id: [id number] Electronically signed by [facility] Cleaning Manager [id number] at 07/17/2016 6:50 AM CDT Miscellaneous - Michael Hankins APRN, C.N.P. - 06/21/2009 11:24 AM CDT PHQ-9 PHQ-9 Entered On: 06/21/2009 11:26 CDT Performed On: 06/21/2009 11:24 CDT by MICHAEL HANKINS PILLOW FILLER PHQ-9 Little interest or pleasure in doing things: Nearly every day Feeling down, depressed, or hopeless: More than half the days Trouble falling or staying asleep, or sleeping too much: Nearly every day Feeling tired or having little energy: Nearly every day Poor appetite or overeating: More than half the days Feeling bad about yourself or that you are a failure: More than half the days Trouble concentrating on things: Several days Moving or speaking slowly; restless or fidgety: Several days Thoughts that you would be better off /hurting self: Several days PHQ-9 Calculated Score: 18 PHQ-9 Date Completed: 06/21/2009 CDT Problems make work, home, or dealing with others: Very difficult MICHAEL HANKINS PILLOW FILLER - 06/21/2009 11:24 CDT Source: [facility] [employer] Document Id: [id number] CDT!14 Miscellaneous - Jauqelin Sauceda Provider Ser - 06/21/2009 11:06 AM CDT Adult [place] Intake/History Document Has Been Updated Adult [place] Intake/History Entered On: 06/21/2009 11:07 CDT Performed On: 06/21/2009 11:06 CDT by SOTERO COLEMAN LPN Intake Temperature Oral: 37.0DegC(Converted to: 98.6DegF) Chief Complaint: recheck MICHAEL HANKINS PILLOW FILLER - 06/21/2009 11:13 CDT Peripheral Pulse Rate: 80bpm Systolic Blood Pressure: 106mmHg Diastolic Blood Pressure: 60mmHg NIBP Mean: 75mmHg BP Location: Left upper extremity Actual Weight: 50.500kg(Converted to: 111.333lb) Dosing Weight Clinic: 50.50kg SOTERO COLEMAN LPN - 06/21/2009 11:06 CDT Subjective Pain Symptoms: No SOTERO COLEMAN LPN - 06/21/2009 11:06 CDT Dependent Habits Alcohol Use: Yes MICHAEL HANKINS PILLOW FILLER - 06/21/2009 11:13 CDT Caffeine Use Grid Caffeine Use: Current Type: Energy drinks Frequency: Weekly Amount: 1 MICHAEL HANKINS Eliel MEDINA - 06/21/2009 11:13 CDT Tobacco Use/Currently Using: No SOTERO COLEMAN LPN - 06/21/2009 11:06 CDT Allergies Allergies (Active) NKA Estimated Onset Date: Unspecified ; Created By: SOTERO COLEMAN LPN; Reaction Status: Active ; Category: Drug ; Substance: NKA ; Type: Allergy ; Updated By: SOTERO COLEMAN LPN; Source: Family ; Reviewed Date: 06/21/2009 11:10 CDT Health History I Cardiovascular Past Medical History Grid High Blood Pressure: Mother, Grandparents MICHAEL HANKINS PILLOW FILLER - 06/21/2009 11:13 CDT Health History II Endocrine/Metabolic Past Med Hx Grid Diabetes: Mother, Grandparents MICHAEL HANKINS [facility] - 06/21/2009 11:13 CDT Psychiatric Past Medical History Grid Depression: Self, Mother, Sibling MICHAEL HANKINS [facility] - 06/21/2009 11:13 CDT Oncologic Past Medical History Grid Prostate Cancer: Grandparents MICHAEL HANKINS [facility] - 06/21/2009 11:13 CDT Source: [facility] POWERCHART Document Id: [id number] CDT!22 documented in this encounter Plan of Treatment Not on filedocumented as of this encounter Visit Diagnoses Not on filedocumented in this encounter Additional Health Concerns Assessment Noted Time PHQ-9 Depression Total Score: 18 06/21/2009 11:24 AM C DT documented as of this encounter
--- OUTSIDE RECORDS SUMMARY | 2021-11-28 09:18 | XMS_ITS | Encounter Summary ---
:1985 Author Organization [facility] Address [address] [place] [address] Care Team Providers Name Role Phone Unavailable Primary Care Provider Unavailable Encounter Details Date Type Department Care Team Description 02/12/2012 Hospital Encounter HX [facility] Shayne Woody M.D. [address] [place], [place] [phone] (Wo rk) Social History [...] How often do you attend episcopal or mormon Never 01/31/2019 services? 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/2018 2:20 PM HAND SCRAPER documented as of this encounter Last Filed Vital Signs Vital Sign Reading Time Taken Comments Blood Pressure 98/62 02/12/2012 1:41 PM HAND SCRAPER Pulse 100 02/12/2012 1:41 PM HAND SCRAPER Temperature - - Respiratory Rate 16 02/12/2012 1:41 PM HAND SCRAPER Oxygen Saturation - - Inhaled Oxygen Concentration - - Weight 59.6 kg (131 lb 6.3 oz) 02/12/2012 1:41 PM HAND SCRAPER Height 158 cm (5' 2.21) 02/12/2012 1:41 PM HAND SCRAPER Body Mass Index 23.87 02/12/2012 1:41 PM HAND SCRAPER documented in this encounter H&P Notes Joy Shannon M.D. - 02/12/2012 1:36 PM CST [id number] CHIEF COMPLAINT/REASON FOR VISIT Patient was seen in consultation at the request of her primary provider Maria R De La Rosa MD for history of a section. HISTORY OF PRESENT ILLNESS Wendi is a 26-year-old 5, para 1031 female at 33 + 3 weeks by last menstrual period consistent with 6 + 1 week ultrasound who presents in consultation due to history of a prior section. Wendi states that she has had some significant issues with depression and anxiety during this pregna ncy. She had been on Fluoxetine but stopped this. She states that she had a suicide attempt early inthe , at approximately 4 weeks' gestation, in which she overdosed on Fluoxetine. She statesthat her symptoms are much better managed on the Fluoxetine and would like to be back on it of it isnot dangerous for the . Patient also has multiple other complaints today including a cough for the last month that was productive several days ago but is no longer productive and has been a little worse the last couple of days. She has no other associated symptoms. She also notices tingling behind her knees. She has multiple other vague symptoms related to . Positive movement.No contractions, vaginal bleeding, or leakage of fluid. She also expresses her desire for . She states that she was induced with her last and had arrest of dilation at 6 cm. She states that she is very hesitant to undergo a repeat section because she felt that she was not able to patterson well with her baby with her last experience. Therefore, she would really prefer is possible and safe. CURRENT MEDICATIONS vitamin 1 tablet by mouth daily. ALLERGIES No known drug allergies. SYSTEMS REVIEW GENERAL: No fevers, chills, unintentional weight loss or weight gain. Positive for fatigue related to . HEENT: No changes in vision or hearing, no sore throat. Positive for nasal congestion related to . CARDIOVASCULAR: Positive for occasional chest pain in the upper sternal area with inspiration, this is stable and not worsening. No irregular heartbeat or racing heart. RESPIRATORY: Positive for shortness of breath related to and positive cough - see HPI. GASTROINTESTINAL: No vomiting, diarrhea, or constipation. Positive for nausea related to and diffuse occasional abdominal pain. GENITOURINARY: Positive for vaginal discharge that is increased with and is white. She denies any associated burning or itching and she also has leakage of urine related to . SKIN: No rashes or skin lesions. BREASTS: No masses or lumps. Positive for discharge from the nipples related to . NEURO: No numbness, falls. Positive for occasional difficulty with memory related to and tingling behind her knees - see HPI. PSYCHE: Positive for anxiety, depression, difficulty sleeping - see HPI. ENDOCRINE: No cold intolerance or hair loss. Positive for heat intolerance and excessive thirst related to . PAST MEDICAL/SURGICAL HISTORY 1. Depression/anxiety with suicide attempt in early . 2. Borderline personality disorder. PAST SURGICAL HISTORY 1. section in 2007 2. 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 The patient also has a history of 3 miscarriages, 1 requiring D&C. She has a history of an abnormal Pap smear in 2008 that required colposcopy but states that her Pap smears since that time have been normal. She denies any history of sexually transmitted diseases. SOCIAL HISTORY No tobacco, alcohol, or drug use and the patient gets less than 1 serving of caffeine per day. She denies any concerns about abuse and works at a [employer] She states that there are some issues with the paternity of this baby. She believed it was her boyfriend Christopher and based on her period and ultrasound he would be the father. However, she was with a different gentleman in July of 2011 valerie paternity test revealed that this other man was the father of the baby. FAMILY HISTORY Maternal grandmother and mother with diabetes, mother with breast cancer and paternal grandfather with colon cancer. No uterine or ovarian cancer in the family, no history of defects. VITAL SIGNS WEIGHT: 59.6 kg BLOOD PRESSURE: 98/62 HEIGHT: 158 cm PULSE: 100 RESPIRATORY RATE: 16 PHYSICAL EXAMINATION GENERAL: Well-nourished female in no acute distress. HEENT: Vision and hearing grossly intact. ABDOMEN: Gravid, nontender, fetus vertex by Shan's, fundal height 33 cm, heart tones 140s. LOWER EXTREMITIES: Nontender, trace edema bilateral lower extremities. IMPRESSION/REPORT/PLAN 26-year-old 5, para 1031 female at 33 + 3 weeks by last menstrual period consistent with 6 +3 week ultrasound who presents for transfer of care/consultation for OB care due to history of priorcesarean section. 1. care: issues discussed today include TOLAC counseling and the patient plans to breast feed. Screening for domestic violence was also performed and the patient has no concerns aboutthis today. 2. Prior section: I will obtain the operative report from [facility] to confirm that this was indeed a low transverse section. If that was the case, then the patient is a candidate. However, she reported a history of arrest of labor at 6 cm. We discussed at length that this does decrease her chance for successful , though the majority women who attempt TOLAC withthis history still do deliver vaginally successfully. We discussed that her baby was likely very large for her pelvis. This baby does not feel large at this point in gestation. We discussed the risks of TOLAC including risk of uterine rupture that is less than 1%. However we discussed that there is a r isk of permanent brain injury, or other morbidities for the fetus if uterine rupture occurs. We discussed that scheduled section is safer than section that is performed emergently or in labor. We also discussed risks and benefits of section. At this point, after discuss ing risks and benefits of section, scheduled versus TOLAC, the patient would like to go ahead with TOLAC. The [facility] consent form was signed today. We will discuss this throughout the patient's and she was informed that she can change her mind at any time. One ofher biggest concerns is a feeling of lack of ability to patterson with the baby at the time of her last section. We have discussed steps that we have taken at [facility] to allow for improved bonding of babies with moms who have sections and that we could make arrangements particularly if the section were scheduled to allow an improved bonding experience if the healthof mother and baby allow with a repeat section. All of the patient's questions were answered regarding this. 2. Depression and anxiety with suicide attempt in early : The patient states that she stopped Fluoxetine due to concern about issues with the baby. We discussed today the risks of uncontrolleddepression in including intrauterine growth restriction, PPROM and labor. We discussed that we know there are significant risks to uncontrolled depression in , particularly to the baby. We did discuss that there may be risks to Fluoxetine but this is one of the most well studied medications and if there are risks they appear to be minimal would include non life-threatening issues such as withdrawal in the period. Therefore, the patient would like to go back on her Fluoxetine and she was given a prescription for this today. PHQ-9 was also administered today and revealed a score of 19 indicating moderately severe depression. The patient has no thoughts of hurting herself or anyone else at this time. 3. Rh negative: I do not have records of when the patient's RhoGAM was administered during this . My nurse Zurdo will be in contact with the [facility] to confirm this dose of RhoGAM. 4. Follow up: The patient will return in 2 weeks and weekly thereafter for follow up visits. If she has any questions or concerns prior to that time, she will call the clinic. ADMINISTRATIVE BILLING Greater than 50% of this 60 minute consultation was spent in counseling the patient both on TOLAC aswell as depression in and treatment options. Joy Shannon M.D./dilip cc: [facility] Maria R De La Rosa M.D. [address] [place] [phone] Electronically Signed By: JOY SHANNON MD On: 02/15/2012 05:38 PM Modified by and Electronically Signed by: JOY SHANNON MD On: 02/15/2012 05:38 PM Source: [facility] MHSDOLBEYNONRADSYS Document Id: [id number] SCRAPER documented in this encounter Procedure Notes Conversion, Historical Provider Ser - 02/12/2012 2:52 PM CST Urine Dipstick Urine Dipstick Entered On: 02/12/2012 14:52 HAND SCRAPER Performed On: 02/12/2012 14:52 HAND SCRAPER by ZURDO GONZALEZ Urine Dipstick UA Color POC : Yellow UA Appear POC : Clear UA Protein POC : Trace UA Glucose POC : Negative ZURDO GONZALEZ - 02/12/2012 14:52 HAND SCRAPER Source: [facility] [employer] Document Id: [id number] documented in this encounter Miscellaneous Notes Telephone Encounter - Conversion, Historical Provider Ser - 02/12/2012 4:59 PM CST Prescription routing temporarily unavailable Entered by TERESA SHEFFIELD on 12 February 2012 16:59:44 HAND SCRAPER Resent The system is currently not able to route this prescription to the pharmacy. Please use another means to communicate this prescription to the intended pharmacy. Failure Comments: Failure Source: [facility] [employer] Document Id: [id number] Miscellaneous - Joy Shannon M.D. - 02/12/2012 3:51 PM CST Ambulatory Depart Summary [facility] [address] [place] [address] Visit Information Name: WENDI ODONNELL [facility] Number: [id number] Visit Date: 02/12/2012 15:51:10 Attending Provider: JOY SHANNON MD Primary Care Provider: MARIA R DE LA ROSA AMBER LEE has been given the following [...] your provider for clarification. Additional Information: Source: [facility] POWERCHART Document Id: [id number] IN Rehman - Joy Shannon M.D. - 02/12/2012 3:51 PM CST [place] [address] Visit Information Name: WENDI ODONNELL [facility] Number: [id number] Visit Date: 02/12/2012 15:51:11 Attending Provider: JOY SHANNON MD Primary Care Provider: MARIA R DE LA ROSA AMBER LEE has been given the following [...] your provider for clarification. Additional Information: Source: [facility] POWERCHART Document Id: [id number] Joy Bassett M.D. - 02/12/2012 3:15 PM CST General Message Document Contains Addenda Addendum by ZURDO GONZALEZ on 14 February 2012 08:40:51 HAND SCRAPER Records requested From: JOY SHANNON MD To: ZURDO GONZALEZ; Sent: 02/12/2012 15:15:32 HAND SCRAPER Subject: General Message Can you call [facility] and find out when this patient had her rhogam? Also, please request the operative report from her in 2007 at [facility]. Thank you. Source: [facility] [employer] Document Id: [id number] Electronically signed by Conversion, [facility] Duplicator Punch Operator [id number] at 07/15/2016 4:03 PM CDT Miscellaneous - Conversion, Historical Provider Ser - 02/12/2012 2:00 PM HAND SCRAPER PHQ-9 PHQ-9 Entered On: 02/14/2012 8:30 HAND SCRAPER Performed On: 02/12/2012 14:00 HAND SCRAPER by ZURDO GONZALEZ PHQ-9 Little interest or pleasure in doing things : More than half the days Feeling down, depressed, or hopeless : More than half the days Trouble falling or staying asleep, or sleeping too much : Nearly every day Feeling tired or having little energy : Nearly every day Poor appetite or overeating : Several days Feeling bad about yourself or that you are a failure : More than half the days Trouble concentrating on things : Nearly every day Moving or speaking slowly; restless or fidgety : Nearly every day Thoughts that you would be better off /hurting self : Not at all PHQ-9 Calculated Score : 19 ZURDO GONZALEZ - 02/14/2012 8:30 HAND SCRAPER [facility] Document Id: [id number] Miscellaneous - Conversion, Historical Provider Ser - 02/12/2012 1:41 PM HAND SCRAPER Adult Rent Collector Intake/History Adult Rent Collector Intake/History Entered On: 02/12/2012 13:44 HAND SCRAPER Performed On: 02/12/2012 13:41 HAND SCRAPER by ZURDO GONZALEZ Intake Chief Complaint : ob visit, consult for LMP Date : 06-24-11 Peripheral Pulse Rate : 100/min Respiratory Rate : 16/min Systolic Blood Pressure : 98mmHg Diastolic Blood Pressure : 62mmHg NIBP Mean : 74mmHg BP Location : Right upper extremity Blood Pressure Cuff Size : Regular Height : 158.00cm(Converted to: 5ft 2inch(es), 62.20inch(es)) Actual Weight : 59.6kg(Converted to: 131lb 6oz) Dosing Weight Clinic : 59.60kg Clinic BSA : 1.62 Body Mass Index : 23.87kg/m2 ZURDO GONZALEZ - 02/12/2012 13:41 HAND SCRAPER Subjective Pain Symptoms : No ZURDO GONZALEZ - 02/12/2012 13:41 HAND SCRAPER Dependent Habits Tobacco Use/Currently Using : No Tobacco Use/Last 12 months : No Smoking Status : Never smoker ZURDO GONZALEZ - 02/12/2012 13:41 HAND SCRAPER Caffeine Use Grid Caffeine Use : Current Type : Energy drinks Frequency : Weekly Amount : 1 ZURDO GONZALEZ - 02/12/2012 13:41 HAND SCRAPER Allergy Allergies (Active) NKA Estimated Onset Date: Unspecified ; Created By: SOTERO COLEMAN LPN; Reaction Status: Active ; Category: Drug ; Substance: NKA ; Type: Allergy ; Updated By: SOTERO COLEMAN LPN; Source: Family ; Reviewed Date: 02/12/2012 13:41 HAND SCRAPER Source: [facility] [employer] Document Id: [id number] Miscellaneous - Conversion, Historical Provider Ser - 02/12/2012 1:41 PM HAND SCRAPER Health Assessment Health Assessment Entered On: 02/12/2012 13:45 HAND SCRAPER Performed On: 02/12/2012 13:41 HAND SCRAPER by ZURDO GONZALEZ Health Assessment Complete Health Assessment Complete or Modified : Annual Health Assessment Annual Health Assessment Completed : Yes ZURDO GONZALEZ - 02/12/2012 13:41 HAND SCRAPER Nutrition Nutrition Risk Factors by History Adult : None ZURDO GONZALEZ - 02/12/2012 13:41 HAND SCRAPER Functional Current Daily Living Assistance : None ZURDO GONZALEZ 02/12/2012 13:41 HAND SCRAPER Dependent Habits Tobacco Use/Currently Using : No Tobacco Use/Last 12 months : No Smoking Status : Never smoker ZURDO GONZALEZ 02/12/2012 13:41 HAND SCRAPER Caffeine Use Grid Caffeine Use : Current Type : Energy drinks Frequency : Weekly Amount : 1 ZURDO GONZALEZ - 02/12/2012 13:41 HAND SCRAPER Psychosocial Domestic Abuse Concerns : None ZURDO GONZALEZ - 02/12/2012 13:41 HAND SCRAPER Advance Directive Advanced Directives : No ZURDO GONZALEZ - 02/12/2012 13:41 HAND SCRAPER Educ Needs Learning Style Preference Adult Grid Patient : None Family : None ZURDO GONZALEZ - 02/12/2012 13:41 HAND SCRAPER Source: [facility] [employer] Document Id: [id number] documented in this encounter Plan of Treatment Not on filedocumented as of this encounter Procedures Procedure Name Priority Date/Time Associated Diagnosis Comme nts HX UA GLUCOSE POC Routine 02/12/2012 2:52 PM Resu lts for this HAND SCRAPER procedure are i n the results section. HX UA APPEAR POC Routine 02/12/2012 2:52 PM Resul ts for this HAND SCRAPER procedure are i n the results section. DIPSTICK, POCT, U Routine 02/12/2012 2:52 PM Resu lts for this (DIPC1) HAND SCRAPER procedure are i n the results section. DIPSTICK, POCT, U Routine 02/12/2012 2:52 PM Resu lts for this (DIPC1) HAND SCRAPER procedure are i n the results section. documented in this encounter Results HX UA GLUCOSE POC (02/12/2012 2:52 PM HAND SCRAPER) P athologist Signature Glucose, POCT, Negative POWERCHART U Specimen (Source) Anatomical Collection Method Collection Time Re ceived Time Location / / Volume Laterality 02/12/2012 2:52 PM HAND SCRAPER Historical Provider LAB HISTORICAL ORDERS Performing Organization Address City/State/ZIP Code Phon e Number POWERCHART Dipstick, POCT, Urine (lab) (02/12/2012 2:52 PM HAND SCRAPER) P athologist Signature Protein, POCT, Trace POWERCHART U Specimen (Source) Anatomical Collection Method Collection Time Re ceived Time Location / / Volume Laterality 02/12/2012 2:52 PM HAND SCRAPER Historical Provider LAB POCT ORDERABLES - DEVICE Performing Organization Address City/[facility]/ZIP Code Phon e Number POWERCHART HX UA APPEAR POC (02/12/2012 2:52 PM HAND SCRAPER) P athologist Signature Appearance Clear POWERCHART Specimen (Source) Anatomical Collection Method Collection Time Re ceived Time Location / / Volume Laterality 02/12/2012 2:52 PM HAND SCRAPER Historical Provider LAB HISTORICAL ORDERS Performing Organization Address City/State/ZIP Code Phon e Number POWERCHART Dipstick, POCT, Urine (lab) (02/12/2012 2:52 PM HAND SCRAPER) P athologist Signature Color Yellow POWERCHART Specimen (Source) Anatomical Collection Method Collection Time Re ceived Time Location / / Volume Laterality 02/12/2012 2:52 PM HAND SCRAPER Historical Provider LAB POCT ORDERABLES - DEVICE Performing Organization Address City/State/ZIP Code Phon e Number POWERCHART documented in this encounter Visit Diagnoses Not on filedocumented in this encounter Additional Health Concerns Assessment Noted Time PHQ-9 Depression Total Score: 18 06/21/2009 11:24 AM C DT documented as of this encounter
--- OUTSIDE RECORDS SUMMARY | 2021-11-28 09:18 | XMS_ITS | Encounter Summary ---
:1985 Author Organization [facility] Address [address] [place] [address] Care Team Providers Name Role Phone Unavailable Primary Care Provider Unavailable Encounter Details Date Type Department Care Team Description 03/14/2012 Hospital Encounter HX [facility] Shayne Woody M.D. [address], [place] [phone] (Wo rk) Social History [...] How often do you attend presybeterian or jew Never 01/31/2019 services? Do you [...] Date Recorded Female 01/11/2018 2:20 PM SUPERVISOR CONTINGENTS documented as of this encounter Last Filed Vital Signs Vital Sign Reading Time Taken Comments Blood Pressure 124/68 03/14/2012 5:26 PM SUPERVISOR CONTINGENTS Pulse - - Temperature - - Respiratory Rate - - Oxygen Saturation - - Inhaled Oxygen Concentration - - Weight 62.4 kg (137 lb 9.1 oz) 03/14/2012 5:26 PM SUPERVISOR CONTINGENTS Height - - Body Mass Index 25 02/12/2012 1:41 PM SUPERVISOR CONTINGENTS documented in this encounter Progress Notes Emmy Shannon M.D. - 03/14/2012 5:23 PM CST [id number] CHIEF COMPLAINT/REASON FOR VISIT Severe headache in HISTORY OF PRESENT ILLNESS Wendi is a 26-year old 5 para 1-0-3-1 female at 37 +5 weeks by last menstrual period consistent with 6 +1 week ultrasound who presents with complaints of severe headache today. She has significant history of depression with suicide attempt early in but was restarted on her Fluoxetine several weeks ago. Her symptoms have been much improved since that time. She reports that since her last visit she has had a few severe headaches that have been the worst the last 2 days. The headachescame on suddenly. Her bilateral vision has become blurry. The headache on the right side of her headradiates to behind the right eye and then to the whole head when lying down. She states that lying down makes the headaches worse. She reports that Tylenol has not improved her situation. Yesterday shehad some abdominal pain which has since resolved. She denies any right upper quadrant pain. She had pain on her left side yesterday. She has a cough and her nasal congestion that has worsened as of late . At night her sinuses feel very full. She admits that she has bilateral ear pain which began yesterday. She has had mild nausea and vomiting since two days ago. She denies any known fevers. She has some burning in her nose when she breathes in and some blood in her mucous when she blows her noise. The baby's movement has decreased. Her contractions have increased. No vaginal bleeding or leakage of fluid. The patient denies any additional complaints and questions at this time. CURRENT MEDICATIONS 1. vitamin 1 tablet by mouth daily 2. Fluoxetine 40 mg by mouth daily ALLERGIES No known drug allergies SYSTEMS REVIEW GENERAL: Has fatigue. No fevers, chills, unintentional weight loss or weight gain. HEENT: Has changes in vision and nasal congestion. No changes in hearing, or sore throat. CARDIOVASCULAR: No chest pain, irregular heartbeat or racing heart. RESPIRATORY: Positive for shortness of breath, cough or wheeze. GASTROINTESTINAL: Positive for nausea and vomiting for the last 2 days. No diarrhea, constipation orabdominal pain. GENITOURINARY: Has leaking urine. No pain or burning with urination, no irregular vaginal bleeding, heavy periods, painful periods, abnormal vaginal discharge, leaking stool or gas. SKIN: Has rashes. No skin lesions. BREASTS: Has discharge from nipples. No masses or lumps. NEURO: Has difficulty with memory, tingling and falls. No numbness. PSYCHE: Has anxiety and difficulty sleeping. No depression. ENDOCRINE: Has heat intolerance and excessive thirst. No cold intolerance or hair loss. COMPLICATIONS OF 1. History of depression, anxiety with suicide attempt early in 2. Rh negative status post RhoGAM on 01/26/2012 3. Borderline personality disorder 4. History of section which was a primary low transverse section with two-layer uterine closure. 5. Acute sinusitis. VITAL SIGNS WEIGHT 62.4 kg BLOOD PRESSURE: 124mmHg/68mmHg PHYSICAL EXAM GENERAL: Well nourished female in no acute distress. SKIN: No rashes or lesions. HEAD: Normocephalic, atraumatic, maxillary sinuses tender to palpation bilaterally, frontal sinuses nontender. EYES: Sclerae without injection or icterus. ENT: Tympanic membranes pearly white bilaterally but light reflex absent on the right tympanic membrane, no erythema or other evidence of infection. Nasal turbinates are moderately erythematous and edematous greater on the left than the right with clear drainage present. Posterior oropharynx without erythema or exudates. Good dentition. LYMPH NODES: Neck supple. No cervical lymphadenopathy. HEART: Regular rate and rhythm. No murmurs, rubs or gallops. LUNGS: Breathing nonlabored. Chest clear to auscultation bilaterally. No wheezes or rales. ABDOMEN: Soft, nontender. Nondistended. Normoactive bowel sounds. Gravid, fundal height at umbilicus. heart tones 140s. IMPRESSION/REPORT/PLAN Wendi is a 26-year old 5 para 1-0-3-1 female at 37 +5 weeks by last menstrual period consistent with 6 +1 week ultrasound who presents for OB followup and complaints of severe headache today, likely associated with acute sinusitis. 1. care: Continue with routine care. 2. Sinusitis: Purchase a Neti pot and start using twice daily. Amoxicillin 875mg for 7 days prescribed today, follow the directions on the label. If symptoms worsen the patient should call the clinic. 3. Decreased movement: NST was preformed today and was reactive. Patient was encouraged to maintain adequate PO hydration. 4. Followup: Patient will return in 4 days for OB followup. If she has any questions or concerns prior to that time she will call the clinic. This document serves as a record of services personally performed by Emmy Shannon MD. It was created on their behalf by Gricel Ron, a trained medical charge entry specialist. The creation of this record is based on the scribe's personal observations and the provider's statements to them. This document has been checked and approved by the attending provider. Emmy Shannon M.D./yasemin Electronically Signed By: EMMY SHANNON MD On: 03/15/2012 08:58 AM Modified by and Electronically Signed by: EMMY SHANNON MD On: 03/15/2012 08:58 AM Source: [facility] MHSDOLBEYNONRADSYS Document Id: [id number] RVISOR CONTINGENTS documented in this encounter Procedure Notes Conversion, Historical Provider Ser - 03/14/2012 5:36 PM CST Urine Dipstick Urine Dipstick Entered On: 03/14/2012 17:36 SUPERVISOR CONTINGENTS Performed On: 03/14/2012 17:36 SUPERVISOR CONTINGENTS by ZURDO GONZALEZ Urine Dipstick UA Color POC : Yellow UA Appear POC : Clear UA Protein POC : Trace UA Glucose POC : Negative ZURDO GONZALEZ - 03/14/2012 17:36 SUPERVISOR CONTINGENTS Source: [facility] POWERCHART Document Id: [id number] Emmy Shannon M.D. - 03/14/2012 12:00 AM CST 1RPT CHIEF COMPLAINT/REASON FOR VISIT This is an NST procedure note HISTORY OF PRESENT ILLNESS INDICATIONS 26-year-old 5, para 1-0-3-1 female at 37 +5 weeks by last menstrual period consistent with 6+1 week ultrasound who complained of decreased movement during visit today. Therefore, NST was recommended to evaluate this. PROCEDURE: heart tones: Baseline 145, moderate variability, reactive, no decelerations. Tocometer: Four contractions in 30 minutes on the monitor. IMPRESSION/REPORT/PLAN Reactive NST. Emmy Shannon M.D./sofie Electronically Signed By: EMMY SHANNON MD On: 03/15/2012 08:52 AM Source: [facility] MHSDOLBEYNONRADSYS Document Id: [id number] RVISOR CONTINGENTS documented in this encounter Miscellaneous Notes Miscellaneous - Emmy Shannon M.D. - 03/14/2012 7:03 PM CST Ambulatory Patient Summary [facility] [address] [place] [address] Visit Information Name: WENDI ODONNELL [facility] Number: [id number] Visit Date: 03/14/2012 19:03:12 Attending Provider: EMMY SHANNON MD Primary Care [...] your provider for clarification. Additional Information: Source: [facility] POWERCHART Document Id: [id number] RVISOR CONTINGENTS Miscellaneous - Emmy Shannon M.D. - 03/14/2012 7:03 PM CST Ambulatory [place] [address] Visit Information Name: CATHERINE WENDI LUIS [facility] Number: [id number] Visit Date: 03/14/2012 19:03:11 Attending Provider: EMMY SHANNON MD Primary Care [...] your provider for clarification. Additional Information: Source: [facility] POWERCHART Document Id: [id number] RVISOR CONTINGENTS Miscellaneous - Conversion, Historical Provider Ser - 03/14/2012 5:26 PM SUPERVISOR CONTINGENTS Adult Shake Maker Intake/History Adult Shake Maker Intake/History Entered On: 03/14/2012 17:28 SUPERVISOR CONTINGENTS Performed On: 03/14/2012 17:26 SUPERVISOR CONTINGENTS by ZURDO GONZALEZ Chief Complaint : ob visit 37+5 LMP Date : 06-24-11 Systolic Blood Pressure : 124mmHg Diastolic Blood Pressure : 68mmHg NIBP Mean : 87mmHg BP Location : Right upper extremity Blood Pressure Cuff Size : Regular Actual Weight : 62.4kg(Converted to: 137lb 9oz) Dosing Weight Clinic : 62.40kg ZURDO GONZALEZ - 03/14/2012 17:26 SUPERVISOR CONTINGENTS Subjective Pain Symptoms : No ZURDO GONZALEZ - 03/14/2012 17:26 SUPERVISOR CONTINGENTS Dependent Habits Tobacco Use/Currently Using : No Tobacco Use/Last 12 months : No Smoking Status : Never smoker ZURDO GONZALEZ - 03/14/2012 17:26 SUPERVISOR CONTINGENTS Caffeine Use Grid Caffeine Use : Current Type : Energy drinks Frequency : Weekly Amount : 1 ZURDO GONZALEZ - 03/14/2012 17:26 SUPERVISOR CONTINGENTS Allergy Allergies (Active) NKA Estimated Onset Date: Unspecified ; Created By: SOTERO COLEMAN LPN; Reaction Status: Active ; Category: Drug ; Substance: NKA ; Type: Allergy ; Updated By: SOTERO COLEMAN LPN; Source: Family ; Reviewed Date: 03/04/2012 10:18 SUPERVISOR CONTINGENTS Source: [facility] POWERCHART Document Id: [id number] documented in this encounter Plan of Treatment Not on filedocumented as of this encounter Procedures Procedure Name Priority Date/Time Associated Diagnosis Comme nts HX UA GLUCOSE POC Routine 03/14/2012 5:36 PM Resu lts for this SUPERVISOR CONTINGENTS procedure are i n the results section. HX UA APPEAR POC Routine 03/14/2012 5:36 PM Resul ts for this SUPERVISOR CONTINGENTS procedure are i n the results section. DIPSTICK, POCT, U Routine 03/14/2012 5:36 PM Resu lts for this (DIPC1) SUPERVISOR CONTINGENTS procedure are i n the results section. DIPSTICK, POCT, U Routine 03/14/2012 5:36 PM Resu lts for this (DIPC1) SUPERVISOR CONTINGENTS procedure are i n the results section. documented in this encounter Results HX UA GLUCOSE POC (03/14/2012 5:36 PM SUPERVISOR CONTINGENTS) P athologist Signature Glucose, POCT, Negative POWERCHART U Specimen (Source) Anatomical Collection Method Collection Time Re ceived Time Location / / Volume Laterality 03/14/2012 5:36 PM SUPERVISOR CONTINGENTS Historical Provider LAB HISTORICAL ORDERS Performing Organization Address City/[facility]/ZIP Code Phon e Number POWERCHART Dipstick, POCT, Urine (lab) (03/14/2012 5:36 PM SUPERVISOR CONTINGENTS) P athologist Signature Protein, POCT, Trace POWERCHART U Specimen (Source) Anatomical Collection Method Collection Time Re ceived Time Location / / Volume Laterality 03/14/2012 5:36 PM SUPERVISOR CONTINGENTS Historical Provider LAB POCT ORDERABLES - DEVICE Performing Organization Address [facility] Phon e Number POWERCHART HX UA APPEAR POC (03/14/2012 5:36 PM SUPERVISOR CONTINGENTS) P athologist Signature Appearance Clear POWERCHART Specimen (Source) Anatomical Collection Method Collection Time Re ceived Time Location / / Volume Laterality 03/14/2012 5:36 PM SUPERVISOR CONTINGENTS Historical Provider LAB HISTORICAL ORDERS Performing Organization Address [facility] Phon e Number POWERCHART Dipstick, POCT, Urine (lab) (03/14/2012 5:36 PM SUPERVISOR CONTINGENTS) P athologist Signature Color Yellow POWERCHART Specimen (Source) Anatomical Collection Method Collection Time Re ceived Time Location / / Volume Laterality 03/14/2012 5:36 PM SUPERVISOR CONTINGENTS Historical Provider LAB POCT ORDERABLES - DEVICE Performing Organization Address [facility] Phon e Number POWERCHART documented in this encounter Visit Diagnoses Not on filedocumented in this encounter Additional Health Concerns Assessment Noted Time PHQ-9 Depression Total Score: 18 06/21/2009 11:24 AM C DT documented as of this encounter
--- OUTSIDE RECORDS SUMMARY | 2021-11-28 09:18 | XMS_ITS | Encounter Summary ---
:1985 Author Organization [facility] Address [address] [place] [address] Care Team Providers Name Role Phone Unavailable Primary Care Provider Unavailable Encounter Details Date Type Department Care Team Description 10/02/2011 Hospital Encounter HX NO MAPPING Lucy Jay M.D. [address] [place], [place] [address] (Wo rk) Social History [...] How often do you attend synagogue or samaritan Never 01/31/2019 services? Do you [...] Date Recorded Female 01/11/2018 2:20 PM DIRECTOR INSTRUCTIONAL MATERIAL documented as of this encounter Plan of Treatment Not on filedocumented as of this encounter Visit Diagnoses Not on filedocumented in this encounter Additional Health Concerns Assessment Noted Time PHQ-9 Depression Total Score: 18 06/21/2009 11:24 AM C DT documented as of this encounter
--- OUTSIDE RECORDS SUMMARY | 2021-11-28 09:18 | XMS_ITS | Encounter Summary ---
:1985 Author Organization [facility] Address [address] [place] [address] Care Team Providers Name Role Phone Unavailable Primary Care Provider Unavailable Encounter Details Date Type Department Care Team Description 10/02/2011 Hospital Encounter HX NO MAPPING Kyler Pantoja III, M.D. (Skip), M.P.H[facility] [address] [place], [place] [address] (Wo rk) Social History [...] How often do you attend religion or advent Never 01/31/2019 services? Do you belong to [...] at Date Recorded Female 01/11/2018 2:20 PM PROMOTIONS OFFICER documented as of this encounter Plan of Treatment Not on filedocumented as of this encounter Visit Diagnoses Not on filedocumented in this encounter Additional Health Concerns Assessment Noted Time PHQ-9 Depression Total Score: 18 06/21/2009 11:24 AM C DT documented as of this encounter
--- OUTSIDE RECORDS SUMMARY | 2021-11-28 09:18 | XMS_ITS | Encounter Summary ---
:1985 Author Organization [facility] Address [address] [place] [address] Care Team Providers Name Role Phone Unavailable Primary Care Provider Unavailable Encounter Details Date Type Department Care Team Description 03/11/2012 Hospital Encounter HX [facility] Shayne Woody M.D. [address] [place], [place] [phone] (Wo rk) Social History [...] 11/27/2019 relatives? How often do you attend sabianism or religion Never 01/31/2019 services? Do you belong to any clubs or organizations such as No 01/31/2019 sabianism groups, unions, fraternal or athletic groups, or [...] at Date Recorded Female 01/11/2018 2:20 PM MAT CUTTER documented as of this encounter Last Filed Vital Signs Vital Sign Reading Time Taken Comments Blood Pressure 118/64 03/11/2012 3:45 PM MAT CUTTER Pulse - - Temperature - - Respiratory Rate - - Oxygen Saturation - - Inhaled Oxygen Concentration - - Weight 62.2 kg (137 lb 2 oz) 03/11/2012 3:45 PM MAT CUTTER Height - - Body Mass Index 24.92 02/12/2012 1:41 PM MAT CUTTER documented in this encounter Progress Notes Emmy Shannon M.D. - 03/11/2012 3:39 PM CST [id number] CHIEF COMPLAINT/REASON FOR VISIT OB followup HISTORY OF PRESENT ILLNESS Wendi is a 26-year old 5 para 1-0-3-1 female at 37 +2 weeks by last menstrual period consistent with 6 +1 week ultrasound who presents for OB followup today. Wendi is doing well at this time. She has significant history of depression with suicide attempt early in but was restarted onher Fluoxetine several weeks ago. Her symptoms have been much improved since that time. Positive movement. Occasional contractions. No vaginal bleeding or leakage of fluid. CURRENT MEDICATIONS 1. vitamin 1 tablet by [...] with two-layer uterine closure. VITAL SIGNS WEIGHT 62.2 kg BLOOD PRESSURE: 118/64 PHYSICAL EXAM GENERAL: Well nourished female in no acute distress. ABDOMEN: Gravid, fundal height 37 cm, heart tones 140's, fetus vertex by Shan's LOWER EXTREMITIES: Nontender, 1+ edema bilateral lower extremities. IMPRESSION/REPORT/PLAN 26-year old 5, para 1-0-3-1 female at 37 +2 weeks by last menstrual period consistent with 6+3 week ultrasound who presents for OB followup today. 1. care: issues discussed today include post-term counseling, signs and symptoms of preeclampsia, depression and family medical leave/disability forms. 2. Prior section: Based on the operative report the patient underwent a primary low transverse section with two-layer uterine closure and is therefore a TOLAC candidate. The [facility] consent form has been signed. She does report a history of arrest of labor at 6 cm and this was confirmed with the operative report. We have discussed that this does decrease her chance somewhat for successful . However, at this point after discussing risks and benefits of scheduled repeat section versus TOLAC the patient would like to proceed with TOLAC. 3. Depression, anxiety with suicide attempt early in : Patient's Fluoxetine has been restarted. Her symptoms have improved significantly on this. I will repeat the PHQ9 score when the patientreturns for her next visit. 4. Rh negative: Patient received RhoGAM on 01/26/2012. She will need RhoGAM again in the postpartumperiod. 5. Symphysis pubis pain: This is stable at this time. 6. Followup: Patient will return in 1 week for OB followup. If she has any questions or concerns prior to that time she will call the clinic. Emmy Shannon M.D./mgd Electronically Signed By: EMMY SHANNON MD On: 03/12/2012 04:33 PM Source: [facility] MHSDOLBEYNONRADSYS Document Id: [id number] CUTTER documented in this encounter Procedure Notes Conversion, Historical Provider Ser - 03/11/2012 5:00 PM CST Urine Dipstick Urine Dipstick Entered On: 03/11/2012 17:00 MAT CUTTER Performed On: 03/11/2012 17:00 MAT CUTTER by ZURDO GONZALEZ Urine Dipstick UA Color POC : Yellow UA Appear POC : Clear UA Protein POC : Negative UA Glucose POC : Negative ZURDO GONZALEZ - 03/11/2012 17:00 MAT CUTTER Source: [facility] [employer] Document Id: [id number] documented in this encounter Miscellaneous Notes Ori - Emmy Shannon M.D. - 03/11/2012 4:25 PM CST Ambulatory Patient Summary [address] [address] Visit Information Name: WENDI ODONNELL [facility] Number: [id number] Visit Date: 03/11/2012 16:25:21 Attending Provider: EMMY SHANNON MD Primary Care [...] your provider for clarification. Additional Information: Source: [facility] LaunchupsCHART Document Id: [id number] CUTTER Ori - Emmy Shannon M.D. - 03/11/2012 4:25 PM CST Ambulatory Depart Summary [address] [id number] Visit Information Name: WENDI ODONNELL [facility] Number: [id number] Visit Date: 03/11/2012 16:25:20 Attending Provider: EMMY SHANNON MD Primary Care [...] your provider for clarification. Additional Information: Source: [facility] POWERCHART Document Id: [id number] CUTTER Miscellaneous - Conversion, Historical Provider Ser - 03/11/2012 3:45 PM MAT CUTTER Adult Health Care Attorney Intake/History Adult Health Care Attorney Intake/History Entered On: 03/11/2012 15:46 MAT CUTTER Performed On: 03/11/2012 15:45 MAT CUTTER by ZURDO GONZALEZ Intake Chief Complaint : ob visit 37+2 LMP Date : 06-24-11 Systolic Blood Pressure : 118mmHg Diastolic Blood Pressure : 64mmHg NIBP Mean : 82mmHg BP Location : Left upper extremity Blood Pressure Cuff Size : Regular Actual Weight : 62.2kg(Converted to: 137lb 2oz) Weight Source : Standing scale Dosing Weight Clinic : 62.20kg ZURDO GONZALEZ - 03/11/2012 15:45 MAT CUTTER Subjective Pain Symptoms : No ZURDO GONZALEZ - 03/11/2012 15:45 MAT CUTTER Dependent Habits Tobacco Use/Currently Using : No Tobacco Use/Last 12 months : No Smoking Status : Never smoker ZURDO GONZALEZ - 03/11/2012 15:45 MAT CUTTER Caffeine Use Grid Caffeine Use : Current Type : Energy drinks Frequency : Weekly Amount : 1 ZURDO GONZALEZ - 03/11/2012 15:45 MAT CUTTER Allergy Allergies (Active) NKA Estimated Onset Date: Unspecified ; Created By: SOTERO COLEMAN LPN; Reaction Status: Active ; Category: Drug ; Substance: NKA ; Type: Allergy ; Updated By: SOTERO COLEMAN LPN; Source: Family ; Reviewed Date: 03/04/2012 10:18 MAT CUTTER Source: [facility] POWERCHART Document Id: [id number] documented in this encounter Plan of Treatment Not on filedocumented as of this encounter Procedures Procedure Name Priority Date/Time Associated Diagnosis Comme nts HX UA GLUCOSE POC Routine 03/11/2012 5:00 PM Resu lts for this MAT CUTTER procedure are i n the results section. HX UA APPEAR POC Routine 03/11/2012 5:00 PM Resul ts for this MAT CUTTER procedure are i n the results section. DIPSTICK, POCT, U Routine 03/11/2012 5:00 PM Resu lts for this (DIPC1) MAT CUTTER procedure are i n the results section. DIPSTICK, POCT, U Routine 03/11/2012 5:00 PM Resu lts for this (DIPC1) MAT CUTTER procedure are i n the results section. documented in this encounter Results HX UA GLUCOSE POC (03/11/2012 5:00 PM MAT CUTTER) P athologist Signature Glucose, POCT, Negative POWERCHART U Specimen (Source) Anatomical Collection Method Collection Time Re ceived Time Location / / Volume Laterality 03/11/2012 5:00 PM MAT CUTTER Historical Provider LAB HISTORICAL ORDERS Performing Organization Address City/State/ZIP Code Phon e Number POWERCHART Dipstick, POCT, Urine (lab) (03/11/2012 5:00 PM MAT CUTTER) P athologist Signature Protein, POCT, Negative POWERCHART U Specimen (Source) Anatomical Collection Method Collection Time Re ceived Time Location / / Volume Laterality 03/11/2012 5:00 PM MAT CUTTER Historical Provider LAB POCT ORDERABLES - DEVICE Performing Organization Address City/State/ZIP Code Phon e Number POWERCHART HX UA APPEAR POC (03/11/2012 5:00 PM MAT CUTTER) P athologist Signature Appearance Clear POWERCHART Specimen (Source) Anatomical Collection Method Collection Time Re ceived Time Location / / Volume Laterality 03/11/2012 5:00 PM MAT CUTTER Historical Provider LAB HISTORICAL ORDERS Performing Organization Address City/State/ZIP Code Phon e Number POWERCHART Dipstick, POCT, Urine (lab) (03/11/2012 5:00 PM MAT CUTTER) P athologist Signature Color Yellow POWERCHART Specimen (Source) Anatomical Collection Method Collection Time Re ceived Time Location / / Volume Laterality 03/11/2012 5:00 PM MAT CUTTER Historical Provider LAB POCT ORDERABLES - DEVICE Performing Organization Address [facility] Phon e Number POWERCHART documented in this encounter Visit Diagnoses Not on filedocumented in this encounter Additional Health Concerns Assessment Noted Time PHQ-9 Depression Total Score: 18 06/21/2009 11:24 AM C DT documented as of this encounter
[2021-11-28 10:59] VITALS: BP 120/78; PULSE 87; RESP 16; TEMP 36.6
--- NOTE | 2021-11-28 11:02 | ED.NURSE ---
rvg rhogam was given
== END 2021-11-28 11:10 | disposition home or self-care (01) ==
PROVIDERS: Emergency Provider Family Medicine; PCP Family Medicine
DX: O46.90 Antepartum hemorrhage, unspecified, unspecified trimester (principal); N83.291 Other ovarian cyst, right side; Z3A.01 Less than 8 weeks gestation of pregnancy; K29.70 Gastritis, unspecified, without bleeding; O09.41 Supervision of pregnancy with grand multiparity, first trimester
CPT/HCPCS: 36415; 36430; 76705; 76801; 80076; 83690; 84702; 85025; 85461; 86900; 86901; 96360; 99284; J2791; J7120

== ENCOUNTER 2021-12-08 16:50 | Outpatient (CLI) | payer BC, SELFPAY ==
--- OUTSIDE RECORDS SUMMARY | 2021-12-08 16:53 | XMS_ITS | Encounter Summary ---
:1985 Author Organization [facility] Address [address] [place] [address] Care Team Providers Name Role Phone Marisel Ferrer M.D. Primary Care Provider [phone] Encounter Details Date Type Department Care Team Description 01/10/2020 Admin Visit Department of Family Medicine, [address] [address] [facility] [place] [facility] [place] [phone] Social History Tobacco Use Types Packs/Day Years [...] 11/27/2019 relatives? How often do you attend baptism or gnosticist Never 01/31/2019 services? Do you belong to any clubs or organizations such as No 01/31/2019 baptism groups, unions, fraternal or athletic groups, or [...] at Date Recorded Female 01/11/2018 2:20 PM ACROBATIC DANCER documented as of this encounter Plan of Treatment Not on filedocumented as of this encounter Visit Diagnoses Not on filedocumented in this encounter Additional Health Concerns Infection Onset Date Last Indicated Resolved Time COVID19 Pending 01/10/2020 01/10/2020 01/11/2020 4:27 PM ACROBATIC DANCER Assessment Noted Time PHQ-9 Depression Total Score: 16 12/09/2019 10:25 AM C DT documented as of this encounter Care Teams Superintendent Oil Well Services Relationship Specialty Start Date End Date Marisel Ferrer M.D. PCP - General Family Medicine 07/11/18 03/24/[address] [address] documented as of this encounter
--- OUTSIDE RECORDS SUMMARY | 2021-12-08 16:53 | XMS_ITS | Encounter Summary ---
:1985 Author Organization [facility] Address [address] [place] [address] Care Team Providers Name Role Phone Jana Granda M.D. Primary Care Provider Reason for Visit Reason Comments COVID Inquiry Encounter Details Date Type Department Care Team Description 11/12/2020 Clinical Communication Department of Jeniffer Cano COVID Inquiry [facility], Nathan Raines [facility], [address] [address] [place], [place] [phone] [address] (Work) [phone] Social History Tobacco Use Types Packs/Day Years [...] How often do you attend gnosticism or yarsani Never 01/31/2019 services? Do you [...] to pay for the very basics like [employer] hat hard 11/27/2019 food, housing, medical care, [...] Recorded Female 01/11/2018 2:20 PM DIRECTOR OF CARDIAC CATH LAB documented as of this encounter Miscellaneous Notes Telephone Encounter - Janel Alberto - 11/12/2020 12:16 PM CDT What is the purpose of the call?: Symptomatic (Calling PCP Office) Calling [facility] What region is the patient calling from? : [place] Have you tested positive for COVID-19 in the last 20 days? : No In the past 14 days are any of the following symptoms new to you and not related to an existing health condition?: New cough, New sore throat, New nausea, New chills, New headache, New myalgias (muscleaches) Because of symptoms, transfer patient to: : [place] COVID Nurse Line (End Screening) Symptom Onset Date of symptom onset: 11/09/20 Testing Recommendation Endpoint Is testing recommended? : Transferred to nursing call line Plan: Endpoint recommendation: Transferred to Nursing/COVID Line/Care Team *Reminder if sending patient for testing in [facility], route encounter to the correct testing pool. documented in this encounter Plan of Treatment Not on filedocumented as of this encounter Visit Diagnoses Not on filedocumented in this encounter Additional Health Concerns Assessment Noted Time PHQ-9 Depression Total Score: 16 12/09/2019 10:25 AM C DT documented as of this encounter Care Teams Charge Attendant Relationship Specialty Start Date End Date Jana Granda M.D. PCP - General 03/25/[address] [place] [address] [place] Garcia [address] documented as of this encounter
--- OUTSIDE RECORDS SUMMARY | 2021-12-08 16:53 | XMS_ITS | Encounter Summary ---
:1985 Author Organization [facility] Address [address] [place] [address] Care Team Providers Name Role Phone Jana Granda M.D. Primary Care Provider Encounter Details Date Type Department Care Team Description 11/13/2020 Admin Visit Department of Family Medicine, [address] [address] [facility] [phone] Social History Tobacco Use Types Packs/Day Years [...] 11/27/2019 relatives? How often do you attend samaritan or hindu Never 01/31/2019 services? Do you belong to any clubs or organizations such as No 01/31/2019 samaritan groups, unions, fraternal or athletic groups, or [...] at Date Recorded Female 01/11/2018 2:20 PM SKI TECHNICIAN documented as of this encounter Plan of Treatment Not on filedocumented as of this encounter Visit Diagnoses Not on filedocumented in this encounter Additional Health Concerns Infection Onset Date Last Indicated Resolved Time COVID19 Pending 11/12/2020 11/13/2020 11/14/2020 8:49 AM CDT Assessment Noted Time PHQ-9 Depression Total Score: 16 12/09/2019 10:25 AM C DT documented as of this encounter Care Teams Senior Data Integration Developer Relationship Specialty Start Date End Date Jana Granda M.D. PCP - General 03/25/[address] [place] [address] [place] Evans [address] documented as of this encounter
--- OUTSIDE RECORDS SUMMARY | 2021-12-08 16:53 | XMS_ITS | Encounter Summary ---
:1985 Author Organization [facility] Address [address] [place] [address] Care Team Providers Name Role Phone Jana Granda M.D. Primary Care Provider Reason for Visit Reason Onset Date Comments Testing For Upper Respiratory Virus Symptoms 04/27/2020 Encounter Details Date Type Department Care Team Description 04/27/2020 External Outreach Department of [facility] Corbin Mason Contact With And Medicine, Juan Alberto Julian D.O. (Suspected) Exposure Building, in [address] [facility] (Primary [employer], [place] Dx) [address] [facility] [address] [place], [place] [phone] [address] (Work) [phone] Social History Tobacco Use Types Packs/Day Years [...] How often do you attend faith or yarsani Never 01/31/2019 services? Do you [...] to pay for the very basics like [employer] hat hard 11/27/2019 food, housing, medical care, [...] at Date Recorded Female 01/11/2018 2:20 PM AUTO BODY SERVICE MECHANIC documented as of this encounter Progress Notes Jessica Diaz R.N. - 04/27/2020 8:20 AM CDT [...] as of this encounter Care Teams Field Ironworker Relationship Specialty Start Date End Date Jana Granda M.D. PCP - General 03/25/[address] [place] [address] [place] Garcia [phone] documented as of this encounter
--- OUTSIDE RECORDS SUMMARY | 2021-12-08 16:53 | XMS_ITS | Encounter Summary ---
:1985 Author Organization [facility] Address [address] [place] [address] Care Team Providers Name Role Phone Marisel Ferrer M.D. Primary Care Provider [phone] Reason for Referral Specialty Diagnoses / Procedures Referred By Contact Refer red To Contact Joy Lee M.D. [facility] [address] [place] [address] Referral ID Status Reason Start Date Expiration Date Visits Requ ested Visits Authorized Scheduling Instructions Schedule for 1 hour - phone visit Reason for Visit Reason Comments Initial Visit confirmation of Outpatient (Routine) - Closed Specialty Diagnoses / Procedures Referred By Contact Refer july To Contact Obstetrics and QIANA Lee [facility] Regio n Gynecology Olu [place] [address] [place] [address] Referral ID Status Reason Start Date Expiration Date Visits Requ ested Visits Authorized [id number] Closed 11/11/2019 11/10/2020 1 1 Encounter Details Date Type Department Care Team Description 12/09/2019 Routine Department of Aravind Lee Other Normal First Trimester (Primary Dx); Obstetrics and Olu Hamilton Depression Major; Gynecology in [address] Anxiety Genera lized Disorder; [place], [place] St Pain Foot Left; [address] [place] Pain Low Back Chronic; [facility] [place] [address] Attention Deficit With Hyperactivity Dis order; [address] Insomnia; Nausea And Vomiting; [phone] Threat ened ; (Fax) Unspecified Blo od [...] 11/27/2019 relatives? How often do you attend zoroastrianism or anabaptist Never 01/31/2019 services? Do you belong to any clubs or organizations such as No 01/31/2019 zoroastrianism groups, unions, fraternal or athletic groups, or [...] at Date Recorded Female 01/11/2018 2:20 PM SKIING TEACHER documented as of this encounter Last Filed [...] was seeing a physical therapist prior to [facility] and her symptoms had improved. She [...] anyone else. She participated in DBT through [facility] in [place], but that stopped with onset of COVID. She has a provider that she sees regularly through [facility]. She is scheduledto follow with her every other month, and she is able to adjust her meds. PHQ-9 score elevated at 16today. #3 Anxiety Generalized Disorder Overview: Wellbutrin 300 mg SR daily. She stopped prozac 20 mg daily. PHQ-9 score 16 and KEL 7 score 16 today.Plan close follow up of this with the provider she sees through [facility]. #4 Pain Foot Left Overview: Was on [...] will discuss this with her provider at [facility]. #7 Insomnia Overview: She continues to struggle [...] documented as of this encounter Care Teams Long Term Care Pharmacist Relationship Specialty Start Date End Date Marisel Ferrer M.D. PCP - General Family Medicine 07/11/18 03/24/[address] [place] [address] documented as of this encounter
--- OUTSIDE RECORDS SUMMARY | 2021-12-08 16:53 | XMS_ITS | Encounter Summary ---
:1985 Author Organization [facility] Address [address] [place] [address] Care Team Providers Name Role Phone Marisel Ferrer M.D. Primary Care Provider [phone] Reason for Visit Appointment Request (Routine) - Closed Specialty Diagnoses / Procedures Referred By Contact Refer red To Contact Obstetrics and Gynecology Referral ID Status Reason Start Date Expiration Date Visits Requ ested Visits Authorized [id number] Closed 01/14/2020 01/13/2021 1 1 Encounter Details Date Type Department Care Team Description 01/14/2020 Office Visit Department of Gurmeet Casiano T hreatened Obstetrics and Olu Santiago (Primary Dx) Gynecology in [address] [place], [place] 200 [facility] [place] [place] [address] [place], [place] [phone] [address] (Work) [phone] Social History Tobacco Use Types Packs/Day Years [...] 11/27/2019 relatives? How often do you attend religious or holiness Never 01/31/2019 services? Do you belong to any clubs or organizations such as No 01/31/2019 religious groups, unions, fraternal or athletic groups, or [...] at Date Recorded Female 01/11/2018 2:20 PM HEAD OF OPERATION AND LOGISTICS documented as of this encounter Progress Notes [...] emergency room immediate. - US OB Limited OF OPERATION AND LOGISTICS documented in this encounter Plan of Treatment Not on filedocumented as of this encounter Procedures Procedure Name Priority Date/Time Associated Comments Diagnosis US OB LIMITED RAD - Routine 01/14/2020 11:03 Results f or this (most inpatients AM HEAD OF OPERATION AND LOGISTICS Threatened procedure a re in and all the results outpatients) section. documented in this encounter Results US OB Limited (01/14/2020 11:03 AM HEAD OF OPERATION AND LOGISTICS) P athologist Signature CRL 16.9 mm Anatomical Region Laterality Modality Ultrasound OB RST LOS, Ultrasound ARZ LOS, Ultrasound FLA LO S, N/A Ultrasound Ultrasound ARZ LOS Specimen (Source) Anatomical Location Collection Method / Collectio n Time Received Time / Laterality Volume Narrative 01/14/2020 11:03 AM HEAD OF OPERATION AND LOGISTICS For ultrasound ??details see imbedded report in [...] documented as of this encounter Care Teams Repairer Welding Systems And Equipment Relationship Specialty Start Date End Date Marisel Ferrer M.D. PCP - General Family Medicine 07/11/18 03/24/[address] [place] [address] documented as of this encounter
--- OUTSIDE RECORDS SUMMARY | 2021-12-08 16:53 | XMS_ITS | Encounter Summary ---
:1985 Author Organization [facility] Address [address] [place] [address] Care Team Providers Name Role Phone Marisel Ferrer M.D. Primary Care Provider [phone] Encounter Details Date Type Department Care Team Description 11/14/2019 Hospital Encounter Department of [place], Pregnanc y Examination Laboratory Medicine Juana Hamilton Test With Positive in [facility] [address] [place] [address] [phone] Social History Tobacco Use Types Packs/Day Years [...] How often do you attend jewish or congregation Never 01/31/2019 services? Do you [...] to pay for the very basics like [employer] hat hard 11/27/2019 food, housing, medical care, [...] at Date Recorded Female 01/11/2018 2:20 PM BRAKE ASSEMBLER documented as of this encounter Medications at Time of Discharge Medication Sig Dispensed Refills Start Date End Date buPROPion XL (WELLBUTRIN 0 02/22/2019 XL) 300 mg 24 hr tablet vitamin-iron Take 1 tablet by 0 fumarate-FA 28 mg iron- mouth daily. 800 mcg per tablet clindamycin-benzoyl Apply topically 2 50 g 11 0 peroxide (BENZACLIN) 1-5 (two) times a day. % gel FLUoxetine (PROzac) 20 mg Take 1 capsule by 0 08/2017 capsule mouth every AM after solid food gabapentin (NEURONTIN) 1,800 mg 3 (three) 0 01/28 300 mg capsule times a day. tiZANidine (ZANAFLEX) 2 1 tab [...] Performed At Patho logist Time Signature HCG, [address] (H) <5 IU/L 11/14/2019 [place] Quantitative, 5:06 PM CDT , P Comment: Biotin has been identified by the madeline wheatley as a potential interfering substance. ??Higher concentr ations of biotin may be found in multivitamins, hair/nail supple ments, and workout supplements. ??If the result does not [facility] clinical observations, repeat testing after patient refrains fr om the use of supplements for at least 12 hours. Specimen Anatomical Collection Method Collection Time Receive d Time (Source) Location / / Volume Laterality Blood (Blood, 11/14/2019 2:20 PM 11/14/19 3:32 Venous) CDT PM CDT Joy eLe M.D. LAB BLOOD ADD-ON Performing Organization Address City/State/ZIP Code Phon e Number [facility] [address] [place] [address] [place] [address] System in [place] [address] [facility] documented in this encounter Visit Diagnoses Diagnosis Examination Test With Positive Result (HCC) documented in this encounter Additional Health Concerns Assessment Noted Time PHQ-9 Depression Total Score: 15 09/28/2017 3:51 PM CD T documented as of this encounter Care Teams Marble Installer Supervisor Relationship Specialty Start Date End Date Marisel Ferrer M.D. PCP - General Family Medicine 07/11/18 03/24/200 [place] [address] documented as of this encounter
--- OUTSIDE RECORDS SUMMARY | 2021-12-08 16:53 | XMS_ITS | Encounter Summary ---
:1985 Author Organization [facility] Address [address] [place] [address] Care Team Providers Name Role Phone Jana Granda M.D. Primary Care Provider Reason for Visit Reason Comments Med Refill Encounter Details Date Type Department Care Team Description 01/23/2021 Refill Department of Obstetrics and Joy Lee, Med Refill Gynecology in [place]lu [place] [address] [address] [facility] [place] [address] [phone] Social History Tobacco Use Types Packs/Day Years [...] 11/27/2019 relatives? How often do you attend pentecostalism or adventism Never 01/31/2019 services? Do you belong to any clubs or organizations such as No 01/31/2019 pentecostalism groups, unions, fraternal or athletic groups, or [...] to pay for the very basics like [employer] hat hard 11/27/2019 food, housing, medical care, [...] at Date Recorded Female 01/11/2018 2:20 PM CERTIFIED ETHICAL HACKER documented as of this encounter Plan of Treatment Not on filedocumented as of this encounter Visit Diagnoses Not on filedocumented in this encounter Additional Health Concerns Assessment Noted Time PHQ-9 Depression Total Score: 16 12/09/2019 10:25 AM C DT documented as of this encounter Care Teams Plant Pathology Teacher Relationship Specialty Start Date End Date Jana Granda M.D. PCP - General 03/25/[address] [place] [address] [place] [address] documented as of this encounter
--- OUTSIDE RECORDS SUMMARY | 2021-12-08 16:53 | XMS_ITS | Encounter Summary ---
:1985 Author Organization [facility] Address [address] [place] [address] Care Team Providers Name Role Phone Marisel Ferrer M.D. Primary Care Provider [phone] Encounter Details Date Type Department Care Team Description 12/09/2019 Silent Schedule Department of Obstetrics [place], and Gynecology in Olu Hamilton [place], [place] [address] [phone] (Wo rk) Social History Tobacco Use Types [...] How often do you attend confucianist or islam Never 01/31/2019 services? 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/2018 2:20 PM MEDICAL APPLIANCE MAKER documented as of this encounter Plan of [...] documented as of this encounter Care Teams Munitions Handler Relationship Specialty Start Date End Date Marisel Ferrer M.D. PCP - General Family Medicine 07/11/18 03/24/20 [address], [place] [address] documented as of this encounter
--- OUTSIDE RECORDS SUMMARY | 2021-12-08 16:53 | XMS_ITS | Encounter Summary ---
:1985 Author Organization [facility] Address [address] [place] [address] Care Team Providers Name Role Phone Marisel Ferrer M.D. Primary Care Provider [phone] Reason for Visit Reason Onset Date Comments Outpatient COVID-19 Testing 12/09/2019 Encounter Details Date Type Department Care Team Description 12/09/2019 External Outreach Department of Corbin Mason Infect ion [facility] Internal Medicine in J, D.O. Respiratory (Primary [place], [place] [address] Dx) [address] [place] [address] Social History Tobacco Use Types Packs/Day [...] How often do you attend alevism or latter day Never 01/31/2019 services? Do [...] to pay for the very basics like [employer] hat hard 11/27/2019 food, housing, medical care, [...] at Date Recorded Female 01/11/2018 2:20 PM AGRICULTURAL RESEARCH ENGINEER documented as of this encounter Progress Notes [...] documented as of this encounter Care Teams Gis Software Developer Relationship Specialty Start Date End Date Marisel Ferrer M.D. PCP - General Family Medicine 07/11/18 03/24/20 [address], [place] [address] documented as of this encounter
--- OUTSIDE RECORDS SUMMARY | 2021-12-08 16:53 | XMS_ITS | Encounter Summary ---
:1985 Author Organization [facility] Address [address] [place] [address] Care Team Providers Name Role Phone Jana Granda M.D. Primary Care Provider Reason for Visit Reason Comments PPD Placement To be read at [place] Encounter Details Date Type Department Care Team Description 08/23/2020 Clinical Support Department of [facility], Test Skin Occupational Meghann Higgins, Tuberculosis Medicine in [place] (Primary Dx) [place], [place] [address] [place] [phone] Social History Tobacco Use Types Packs/Day Years [...] How often do you attend catholic or rastafari Never 01/31/2019 services? Do you belong to [...] to pay for the very basics like [employer] hat hard 11/27/2019 food, housing, medical care, [...] at Date Recorded Female 01/11/2018 2:20 PM HYDRAMATIC MECHANIC documented as of this encounter Plan of Treatment Not on filedocumented as of this encounter Visit Diagnoses Diagnosis Test Skin Tuberculosis - Primary documented in this encounter Additional Health Concerns Assessment Noted Time PHQ-9 Depression Total Score: 16 12/09/2019 10:25 AM C DT documented as of this encounter Care Teams Vinyl Dipper Relationship Specialty Start Date End Date Jana Granda M.D. PCP - General 03/25/[address] [place] [address] AN[place] Garcia [phone] documented as of this encounter
--- OUTSIDE RECORDS SUMMARY | 2021-12-08 16:53 | XMS_ITS | Encounter Summary ---
:1985 Author Organization [facility] Address [address] [place] [address] Care Team Providers Name Role Phone Marisel Ferrer M.D. Primary Care Provider [phone] Reason for Visit Reason Comments COVID Inquiry Encounter Details Date Type Department Care Team Description 01/10/2020 Clinical Communication Central Appointment Line, Covid COVID Inquiry Office in [facility] [address] [place] [address] Social History Tobacco Use Types [...] How often do you attend jew or christian Never 01/31/2019 services? Do you belong to [...] at Date Recorded Female 01/11/2018 2:20 PM CONTACT ASSEMBLER documented as of this encounter Miscellaneous Notes Telephone Encounter - Polina Peralta - 01/10/2020 12:01 PM CST COVID DOS/PASS Screening What is the patient requesting?: COVID-19 Testing Only (End screening - follow local process) Plan: Endpoint recommendation: Testing indicated, sent patient to [facility] located at [address] [place] [address]. The entrance is on the north side of the building. You must call [phone] for an appointment time.Testing hours are Daily [...] sending patient for testing in T or [facility], an email notification is required. ACT ASSEMBLER documented in this encounter Plan of Treatment Not on filedocumented as of this encounter Visit Diagnoses Not on filedocumented in this encounter Additional Health Concerns Infection Onset Date Last Indicated Resolved Time COVID19 Pending 01/10/2020 01/10/2020 01/11/2020 4:27 PM CONTACT ASSEMBLER Assessment Noted Time PHQ-9 Depression Total Score: 16 12/09/2019 10:25 AM C DT documented as of this encounter Care Teams Gas Line Installer Supervisor Relationship Specialty Start Date End Date Marisel Ferrer M.D. PCP - General Family Medicine 07/11/18 03/24/200 [place] [phone] documented as of this encounter
--- OUTSIDE RECORDS SUMMARY | 2021-12-08 16:53 | XMS_ITS | Encounter Summary ---
:[address] [facility] Address [address] [place] [address] Care Team Providers Name Role Phone Marisel Ferrer M.D. Primary Care Provider [phone] Encounter Details Date Type Department Care Team Description 12/10/2019 Admin Visit Department of Family Medicine, [address] [address] [facility] [phone] Social History Tobacco Use Types Packs/Day Years [...] How often do you attend presybeterian or moravian Never 01/31/2019 services? Do you belong to [...] at Date Recorded Female 01/11/2018 2:20 PM LEAD SHIPPER documented as of this encounter Plan of Treatment Not on filedocumented as of this encounter Visit Diagnoses Not on filedocumented in this encounter Additional Health Concerns Infection Onset Date Last Indicated Resolved Time COVID19 Pending 12/10/2019 12/10/2019 12/11/2019 3:42 PM CDT Assessment Noted Time PHQ-9 Depression Total Score: 16 12/09/2019 10:25 AM C DT documented as of this encounter Care Teams Scientific Editor Relationship Specialty Start Date End Date Marisel Ferrer M.D. PCP - General Family Medicine 07/11/18 03/24/[address] [address] documented as of this encounter
--- OUTSIDE RECORDS SUMMARY | 2021-12-08 16:53 | XMS_ITS | Encounter Summary ---
:1985 Author Organization [facility] Address [address] [place] [address] Care Team Providers Name Role Phone Marisel Ferrer M.D. Primary Care Provider [phone] Reason for Visit Reason Comments Nurse Visit OB EDU Encounter Details Date Type Department Care Team Description 01/14/2020 Virtual Visit Department of Shayne Lee M.D. [address], [place] [address] Examination Obstetrics and Marylou Urena RTyler [address] [place] [phone] Other Normal Gynecology in [address] [address] Social History Tobacco Use Types [...] How often do you attend catholic or sikh Never 01/31/2019 services? Do you [...] AIDS NURSE documented as of this encounter Last Filed Vital Signs Vital Sign Reading Time Taken Comments Blood Pressure - - Pulse - - Temperature - - Respiratory Rate - - Oxygen Saturation - - Inhaled Oxygen Concentration - - Weight 55.4 kg (122 lb 3.9 oz) 01/14/2020 11:02 AM AIDS NURSE Height - - Body Mass Index 21.13 [...] antepartum education topics and in accordance with [facility] guidelines. Patient states understanding to all topics presented. All questions answered during appointment. Written information regarding topics presented provided for patient to take home. Please see education tab for further details about topics addressed. NURSE documented in this encounter Plan of Treatment Not on filedocumented as of this encounter Visit Diagnoses Diagnosis Examination Other Normal Pregna ncy First Trimester (HCC) documented in this encounter Additional Health Concerns Assessment Noted Time PHQ-9 Depression Total Score: 16 12/09/2019 10:25 AM C DT documented as of this encounter Care Teams Seniour Insight Manager Relationship Specialty Start Date End Date Marisel Ferrer M.D. PCP - General Family Medicine 07/11/18 03/24/[address] [place] [phone] documented as of this encounter
--- OUTSIDE RECORDS SUMMARY | 2021-12-08 16:53 | XMS_ITS | Encounter Summary ---
:1985 Author Organization [facility] Address [address] [place] [address] Care Team Providers Name Role Phone Jana Granda M.D. Primary Care Provider Encounter Details Date Type Department Care Team Description 11/13/2020 Hospital Encounter Department of Laboratory Chino Mason, Medicine, [facility], in [place], [address] [place], [place] 1025 [facility] [address] [place] [address] [phone] Social History Tobacco Use Types Packs/Day Years [...] 11/27/2019 relatives? How often do you attend hinduism or zoroastrian Never 01/31/2019 services? Do you belong to any clubs or organizations such as No 01/31/2019 hinduism groups, unions, fraternal or athletic groups, or [...] at Date Recorded Female 01/11/2018 2:20 PM LOGGING CREW SUPERVISOR documented as of this encounter Medications at Time of Discharge Medication Sig Dispensed Refills Start Date End Date buPROPion XL 0 02/22/2019 (WELLBUTRIN XL) 300 mg 24 hr tablet vitamin-iron Take 1 tablet by mouth 0 fumarate-FA 28 mg iron- daily. 800 mcg per tablet clindamycin-benzoyl Apply [...] documented as of this encounter Care Teams Opal Miner Relationship Specialty Start Date End Date Jana Granda M.D. PCP - General 03/25/[address] [place] [address] ANNY Garcia [phone] documented as of this encounter
--- OUTSIDE RECORDS SUMMARY | 2021-12-08 16:53 | XMS_ITS | Encounter Summary ---
:1985 Author Organization [facility] Address [address] [place] [address] Care Team Providers Name Role Phone Jana Granda M.D. Primary Care Provider Reason for Visit Reason Onset Date Comments Testing For Upper Respiratory Virus Symptoms 11/12/2020 Encounter Details Date Type Department Care Team Description 11/12/2020 External Outreach Department of [facility] Corbin Mason Contact With And Medicine, Juan Alberto Julian D.O. (Suspected) Exposure Building, in [address] To COVID-19 (Primary [place], [place] Dx) [address] [facility] [address] [place], [place] [phone] [address] (Work) [phone] Social History Tobacco Use Types Packs/Day Years [...] How often do you attend druze or tenriism Never 01/31/2019 services? Do you belong to [...] to pay for the very basics like [employer] hat hard 11/27/2019 food, housing, medical care, [...] at Date Recorded Female 01/11/2018 2:20 PM HOT WORT SETTLER documented as of this encounter Progress Notes [...] RNA, V Symptomatic (11/13/2020 12:25 PM CDT) [facility] Method Time Signature SARS-CoV-2 Swab, 11/14/2020 MKTO [...] pe rformed using the Aptima SARS-CoV-2 assay ([employer] on the [employer] tem under emergency use authorization (EUA) by the U.S. Food and Drug Administ ration. Fact sheets for this EUA assay can be fo und at the following links: For Healthcare Providers: https://www.fd a.gov/media/573784/download For Patients: https://www.fda.gov/media/ 949479/download Specimen Anatomical Collection Method Collection Time Receive d Time (Source) Location / / Volume Laterality Varies 11/13/2020 12:25 11/14/2020 (Nasopharynx) PM CDT 12:04 AM CDT Corbin Mason D.O. LAB MICROBIOLOGY - GENERAL O ZAHIRA Performing Organization Address City/State/[facility] Code Phon e Number [facility]- [address] [place] [address] [place] [address] [address] documented in this encounter Visit Diagnoses Diagnosis Contact With And (Suspected) Exposure To COVID-19 - Primary documented in this encounter Additional Health Concerns Infection Onset Date Last Indicated Resolved Time COVID19 Pending 11/12/2020 11/13/2020 11/14/2020 8:49 AM CDT Assessment Noted Time PHQ-9 Depression Total Score: 16 12/09/2019 10:25 AM C DT documented as of this encounter Care Teams Deliverer Food Relationship Specialty Start Date End Date Jana Granda M.D. PCP - General 03/25/[address] [place] [address] [place] [phone] documented as of this encounter
--- OUTSIDE RECORDS SUMMARY | 2021-12-08 16:53 | XMS_ITS | Encounter Summary ---
:1985 Author Organization [facility] Address [address] [place] [address] Care Team Providers Name Role Phone Jana Granda M.D. Primary Care Provider Encounter Details Date Type Department Care Team Description 09/13/2021 Orders Only [facility] Anastasiya Pierce M.D. Screening Lipid [address] [place] [address] (Wo rk) Social History Tobacco Use [...] How often do you attend faith or pentecostal Never 01/31/2019 services? 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/2018 2:20 PM TOASTER OPERATOR documented as of this encounter Plan [...] documented as of this encounter Care Teams Maintenance Analyst Relationship Specialty Start Date End Date Jana Granda M.D. PCP - General 03/25/[address] [place] [address] documented as of this encounter
--- OUTSIDE RECORDS SUMMARY | 2021-12-08 16:53 | XMS_ITS | Encounter Summary ---
:1985 Author Organization [facility] Address [address] [place] [address] Care Team Providers Name Role Phone Marisel Ferrer M.D. Primary Care Provider [phone] Encounter Details Date Type Department Care Team Description 11/27/2019 Silent Schedule Department of Obstetrics Jef Casiano Jr., and Gynecology in [place], [place] [address] [facility] [place] [phone] (Wo rk) Social History Tobacco Use Types [...] How often do you attend advent or yazidi Never 01/31/2019 services? 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/2018 2:20 PM THEATER EDUCATION TEACHER documented as of this encounter Plan of [...] documented as of this encounter Care Teams Wax Cutter Relationship Specialty Start Date End Date Marisel eFrrer M.D. PCP - General Family Medicine 07/11/18 03/24/20 [address] [place] [phone] documented as of this encounter
--- OUTSIDE RECORDS SUMMARY | 2021-12-08 16:53 | XMS_ITS | Encounter Summary ---
:1985 Author Organization [facility] Address [address] [place] [address] Care Team Providers Name Role Phone Jana Granda M.D. Primary Care Provider Reason for Visit Reason Comments COVGERMAN Nurse Line Encounter Details Date Type Department Care Team Description 11/12/2020 Clinical Communication Division of GUILLERMO Tenorio Nurse [facility], [facility] Internal Celeste Aguirre R.N., Medicine, [facility], in [address] [place] [phone] [place] [address] [place], [place] (Work) [phone] Social History Tobacco Use Types Packs/Day Years [...] 11/27/2019 relatives? How often do you attend restorationist or methodist Never 01/31/2019 services? Do you belong to any clubs or organizations such as No 01/31/2019 restorationist groups, unions, fraternal or athletic groups, or [...] at Date Recorded Female 01/11/2018 2:20 PM RADIO PROGRAM CHECKER documented as of this encounter Miscellaneous Notes Telephone Encounter - TenorioCeleste R.N., CCRN-K - 11/12/2020 12:25 PM CDT COVID-19 Nurse Line Screening ASSESSMENT Region Select appropriate region: : [place] Age Pathway Select approprite pathway: : Adult [...] swabbed for COVID-19 Only , sent to [place] located at [address] [place] [address] ([facility]). An appointment is required for testing, please call [phone] Sunday-Sunday 7am to 6pm and Sunday & [...] frequently with soap and water, use hand customer relations advisor if soap and water aren't available. -Wear [...] care: Yes The following references were used: [facility] novel coronavirus (COVID- 19) resources Nursing judgement documented in this encounter Plan of Treatment Not on filedocumented as of this encounter Visit Diagnoses Not on filedocumented in this encounter Additional Health Concerns Assessment Noted Time PHQ-9 Depression Total Score: 16 12/09/2019 10:25 AM C DT documented as of this encounter Care Teams Rack Loader Relationship Specialty Start Date End Date Jana Granda M.D. PCP - General 03/25/[address] [place] [phone] documented as of this encounter
--- OUTSIDE RECORDS SUMMARY | 2021-12-08 16:53 | XMS_ITS | Encounter Summary ---
:1985 Author Organization [facility] Address [address] [place] [address] Care Team Providers Name Role Phone Jana Granda M.D. Primary Care Provider Encounter Details Date Type Department Care Team Description 12/14/2020 Orders Only [facility] Anastasiya Pierce M.D. Screening Lipid [address] [facility] [place] [address] (Wo rk) Social History Tobacco Use [...] How often do you attend advent or hoahaoism Never 01/31/2019 services? 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/2018 2:20 PM ARCHITECTURAL DESIGN LECTURER documented as of this encounter Plan of Treatment Not on filedocumented as of this encounter Visit Diagnoses Diagnosis Screening Lipid documented in this encounter Additional Health Concerns Assessment Noted Time PHQ-9 Depression Total Score: 16 12/09/2019 10:25 AM C DT documented as of this encounter Care Teams Aligning Checker Relationship Specialty Start Date End Date Jana Granda M.D. PCP - General 03/25/[address] [place] [address] [place] [address] documented as of this encounter
--- OUTSIDE RECORDS SUMMARY | 2021-12-08 16:53 | XMS_ITS | Encounter Summary ---
:1985 Author Organization [facility] Address [address] [place] [address] Care Team Providers Name Role Phone Jana Granda M.D. Primary Care Provider Encounter Details Date Type Department Care Team Description 04/26/2020 Patient Self-Triage CONNECTED CARE Symptom Lumber Sticker, Provider Social History Tobacco Use Types Packs/Day [...] How often do you attend jainism or alevism Never 01/31/2019 services? 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/2018 2:20 PM OIL FIELD OPERATOR documented as of this encounter Plan of Treatment Not on filedocumented as of this encounter Visit Diagnoses Not on filedocumented in this encounter Additional Health Concerns Assessment Noted Time PHQ-9 Depression Total Score: 16 12/09/2019 10:25 AM C DT documented as of this encounter Care Teams Matrix Worker Relationship Specialty Start Date End Date Jana Granda M.D. PCP - General 03/25/[address] [place], [place] [address] [address] documented as of this encounter
--- OUTSIDE RECORDS SUMMARY | 2021-12-08 16:53 | XMS_ITS | Encounter Summary ---
:[address] [facility] Address [address] [place] [address] Care Team Providers Name Role Phone Marisel Ferrer M.D. Primary Care Provider [phone] Reason for Visit Reason Onset Date Comments Outpatient COVID-19 Testing 01/10/2020 Encounter Details Date Type Department Care Team Description 01/10/2020 External Outreach Department of Corbin Mason Infect ion [facility] Internal Medicine in J, D.O. Respiratory (Primary [place], [place] [address] Dx) [address] [place] [address] Social History Tobacco Use Types Packs/Day [...] 11/27/2019 relatives? How often do you attend roman catholic or mu-ism Never 01/31/2019 services? Do you belong to any clubs or organizations such as No 01/31/2019 roman catholic groups, unions, fraternal or athletic groups, [...] to pay for the very basics like [employer] hat hard 11/27/2019 food, housing, medical care, [...] at Date Recorded Female 01/11/2018 2:20 PM PERINATAL BREASTFEEDING ASSISTANT documented as of this encounter Progress Notes Maria R Sorenson R.N. - 01/10/2020 11:59 AM CST Encounter created for the drive-through COVID-19 testing. NATAL BREASTFEEDING ASSISTANT documented in this encounter Plan of Treatment Not on filedocumented as of this encounter Procedures Procedure Name Priority Date/Time Associated Diagnosis Comme nts SARS CORONAVIRUS-2 Routine 01/10/2020 1:08 PM Infection Upper Results for this RNA, V PERINATAL BREASTFEEDING ASSISTANT Respiratory procedure are i n the results section. documented in this encounter Results SARS Coronavirus-2 RNA, V Symptomatic (01/10/2020 1:08 PM PERINATAL BREASTFEEDING ASSISTANT) [facility] gist Method Time Signature SARS-CoV-2 Swab, 01/11/2020 MKTO Specimen Nasopharynx 4:26 PM PERINATAL BREASTFEEDING ASSISTANT Source SARS CoV-2 Undetected Undetected 01/11/2020 MKTO RNA, TMA 4:26 PM PERINATAL BREASTFEEDING ASSISTANT Comment: SARS-CoV-2 RNA absent. This result does not rule out COVID-19 in the patient, as the sensitivity of the test depends o n the timing of the specimen collection and the quality of the specim en. Result should be correlated with patient's history and clinical presentat ion. ----ADDITIONAL INFORMATION---- This test is performed using the Aptima SARS-CoV-2 assay ([employer] which has received Emergency Use Authori zation (EUA) by the U.S. Food and Drug Administration. Fact sheets for this Emergency Use Autho rization (EUA) assay can be found at the following links: For Healthcare Providers: https://www.fd a.gov/media/906870/download For Patients: https://www.fda.gov/media/ 259399/download Specimen Anatomical Collection Method Collection Time Receive d Time (Source) Location / / Volume Laterality Varies 01/10/2020 1:08 PM 0 8:37 (Nasopharynx) PERINATAL BREASTFEEDING ASSISTANT AM PERINATAL BREASTFEEDING ASSISTANT Corbin Mason D.O. LAB MICROBIOLOGY - GENERAL O RDERABLES Performing Organization Address City/State/ZIP Code Phon e Number [facility]- [address] [place] [address] [place] [address] System in [address] documented in this encounter Visit Diagnoses Diagnosis Infection Upper Respiratory - Primary documented in this encounter Additional Health Concerns Infection Onset Date Last Indicated Resolved Time COVID19 Pending 01/10/2020 01/10/2020 01/11/2020 4:27 PM PERINATAL BREASTFEEDING ASSISTANT Assessment Noted Time PHQ-9 Depression Total Score: 16 12/09/2019 10:25 AM C DT documented as of this encounter Care Teams Nremt Relationship Specialty Start Date End Date Marisel Ferrer M.D. PCP - General Family Medicine 07/11/18 03/24/[address] [phone] documented as of this encounter
--- OUTSIDE RECORDS SUMMARY | 2021-12-08 16:53 | XMS_ITS | Encounter Summary ---
:1985 Author Organization [facility] Address [address] [place] [address] Care Team Providers Name Role Phone Jana Granda M.D. Primary Care Provider Reason for Referral Outpatient (Routine) - Closed Specialty Diagnoses / Procedures Referred By Contact Refer red To Contact Diagnoses Occupational Health Examination Ermelinda Garcia P.A.-Liliam [facility] Procedures OCC Drug screening [address] [place] [address] Referral ID Status Reason Start Date Expiration Date Visits Requ ested Visits Authorized [id number] Closed 08/23/2020 08/23/2021 1 1 Reason for Visit Reason Comments Drug Screen Appointment Request (Routine) - Closed Specialty Diagnoses / Procedures Referred By Contact Refer red To Contact Occupational Medicine Referral ID Status Reason Start Date Expiration Date Visits Requ ested Visits Authorized [id number] Closed 08/20/2020 08/20/2021 1 1 Encounter Details Date Type Department Care Team Description 08/23/2020 Clinical Support Department of [facility], Occupation al Health Occupational David Lara (Pr imary Medicine in L.P.N. Dx) [place], [place] [address] [place] [phone] Social History Tobacco Use Types Packs/Day Years [...] often do you attend oriental orthodox or anglican Never 01/31/2019 services? 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/2018 2:20 PM TYPE CASTER documented as of this encounter Plan of [...] documented as of this encounter Care Teams Side Laster Tack Relationship Specialty Start Date End Date Jana Granda M.D. PCP - General 03/25/[address] [place] [address] ANNY Garcia [phone] documented as of this encounter
--- OUTSIDE RECORDS SUMMARY | 2021-12-08 16:53 | XMS_ITS | Encounter Summary ---
:1985 Author Organization [facility] Address [address] [place] [address] Care Team Providers Name Role Phone Marisel Ferrer M.D. Primary Care Provider [phone] Encounter Details Date Type Department Care Team Description 11/14/2019 Clinical Communication Department of [facility] Obstetrics and [place] Gynecology in [address] [address] [place] [address] Social History Tobacco Use Types Packs/Day [...] How often do you attend holiness or gnosticism Never 01/31/2019 services? Do you [...] to pay for the very basics like Dust[employer] hat hard 11/27/2019 food, housing, medical care, [...] at Date Recorded Female 01/11/2018 2:20 PM CASSANDRA ARCHITECT documented as of this encounter Miscellaneous Notes [...] no Route reply to: Scheduling Contact Number: [phone] documented in this encounter Plan of Treatment Not on filedocumented as of this encounter Visit Diagnoses Not on filedocumented in this encounter Additional Health Concerns Assessment Noted Time PHQ-9 Depression Total Score: 15 09/28/2017 3:51 PM CD T documented as of this encounter Care Teams Flask Carrier Relationship Specialty Start Date End Date Marisel Ferrer M.D. PCP - General Family Medicine 07/11/18 03/24/[address] [phone] documented as of this encounter
--- OUTSIDE RECORDS SUMMARY | 2021-12-08 16:53 | XMS_ITS | Encounter Summary ---
:1985 Author Organization [facility] Address [address] [place] [address] Care Team Providers Name Role Phone Marisel Ferrer M.D. Primary Care Provider [phone] Encounter Details Date Type Department Care Team Description 01/14/2020 Silent Schedule Department of Obstetrics Jef Casiano Jr., and Gynecology in [place], [place] [address] [facility] [place] [phone] (Wo rk) Social History Tobacco Use Types [...] How often do you attend sabianist or mormon Never 01/31/2019 services? 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/2018 2:20 PM CLIENT SERVICES DIRECTOR documented as of this encounter Plan of Treatment Not on filedocumented as of this encounter Procedures Procedure Name Priority Date/Time Associated Comments Diagnosis US OB LIMITED RAD - Routine 01/14/2020 11:03 Results f or this (most inpatients AM CLIENT SERVICES DIRECTOR Threatened procedure a re in and all the results outpatients) section. documented in this encounter Results US OB Limited (01/14/2020 11:03 AM CLIENT SERVICES DIRECTOR) P athologist Signature CRL 16.9 mm Anatomical Region Laterality Modality Ultrasound OB RST LOS, Ultrasound ARZ LOS, Ultrasound FLA LO S, N/A Ultrasound Ultrasound ARZ LOS Specimen (Source) Anatomical Location Collection Method / Collectio n Time Received Time / Laterality Volume Narrative 01/14/2020 11:03 AM CLIENT SERVICES DIRECTOR For ultrasound ??details see imbedded report in [...] documented as of this encounter Care Teams Internet And E Business Project Manager Relationship Specialty Start Date End Date Marisel Ferrer M.D. PCP - General Family Medicine 07/11/18 03/24/20 [address], [place] [address] documented as of this encounter
--- OUTSIDE RECORDS SUMMARY | 2021-12-08 16:53 | XMS_ITS | Clinical Summary ---
:1985 Author Organization [facility] Address [address] [place] [address] Care Team Providers Name Role Phone Jana Granda M.D. Primary Care Provider Source Comments Patient records contain information from all sites at [facility]. For routine questions regarding patient records, call [phone] during business hours, M-F 8:00 AM - 5:00 PM Central Time. Record requests for emergency care only can be directed to [phone] at any time.[facility] Allergies Active Allergy Reactions Severity Noted Date [...] participated in DBT through [facility] in [place], but that stop ped with onset of [...] Specialty Care Team Description 09/13/2021 Orders Only Jana Granda M.D. Screen ing Lipid from Last [...] How often do you attend gnosticist or voodoo Never 01/31/2019 services? 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/2018 2:20 PM REIMBURSEMENT ANALYST Last Filed Vital Signs Vital Sign Reading Time Taken Comments Blood Pressure 100/60 12/09/2019 10:17 AM CDT Pulse 80 12/09/2019 10:17 AM CDT Temperature 37.1 ??C (98.8 ??F) 11/27/2019 9:34 AM CDT Respiratory Rate 20 12/09/2019 10:17 AM CDT Oxygen Saturation 98% 04/17/2018 1:25 PM REIMBURSEMENT ANALYST Inhaled Oxygen Concentration - - Weight 55.4 kg (122 lb 3.9 oz) 01/14/2020 11:02 AM REIMBURSEMENT ANALYST Height 162 cm (5' 3.78) 12/09/2019 10:17 [...] Dates Phone Address Type / Group [facility] [id number] 2021-Presen [phone] [address] Medicaid HMO t 5 [place] [address] Care Teams End Frazer Relationship Specialty Start Date End Date Jana Granda M.D. PCP - General 03/25/[address] [place], [place] [address] [address]
--- OUTSIDE RECORDS SUMMARY | 2021-12-08 16:54 | XMS_ITS | Encounter Summary ---
:1985 Author Organization [facility] Address [address] [place] [address] Care Team Providers Name Role Phone Marisel Ferrer M.D. Primary Care Provider [phone] Encounter Details Date Type Department Care Team Description 11/12/2019 Hospital Encounter Department of [place], Pregnanc y Examination Laboratory Medicine [place] Test With Positive in [facility] [address] [place] [phone] [phone] Social History Tobacco Use Types Packs/Day Years [...] to pay for the very basics like [employer] hat hard 11/27/2019 food, housing, medical care, [...] at Date Recorded Female 01/11/2018 2:20 PM LIVESTOCK EXHIBITOR documented as of this encounter Medications at [...] supplements. ??If the result does not ma [facility] clinical observations, repeat testing after patient refrains fr om the use of supplements for at least 12 hours. Specimen Anatomical Collection Method Collection Time Receive d Time (Source) Location / / Volume Laterality Blood (Blood, 11/12/2019 3:59 PM 11/12/19 20 6:13 Venous) CDT PM CDT Joy Lee M.D. LAB BLOOD ADD-ON Performing Organization Address City/State/ZIP Code Phon e Number [facility]- [address], [place] [address] [place] [address] System in [place] [address] [facility] documented in this encounter Visit Diagnoses Diagnosis Examination Test With Positive Result (HCC) documented in this encounter Additional Health Concerns Assessment Noted Time PHQ-9 Depression Total Score: 15 09/28/2017 3:51 PM CD T documented as of this encounter Care Teams Mount Loader Relationship Specialty Start Date End Date Marisel Ferrer M.D. PCP - General Family Medicine 07/11/18 03/24/200 [address], [place] [address] documented as of this encounter
--- OUTSIDE RECORDS SUMMARY | 2021-12-08 16:54 | XMS_ITS | Encounter Summary ---
:1985 Author Organization [facility] Address [address] [place] [address] Care Team Providers Name Role Phone Marisel Ferrer M.D. Primary Care Provider [phone] Reason for Visit Reason Onset Date Comments PA 03/06/2019 Encounter Details Date Type Department Care Team Description 03/06/2019 Clinical Communication Department of Marylou Urena PA Obstetrics and R.N. Gynecology in [address] [place], [place] [address] [facility] [place] [place] [address] [place], [place] [phone] (Work) [phone] Social History Tobacco Use Types Packs/Day Years [...] How often do you attend advent or zoroastrian Never 01/31/2019 services? Do you [...] Date Recorded Female 01/11/2018 2:20 PM MANAGER FRONT OFFICE documented as of this encounter Miscellaneous Notes Telephone Encounter - Sofia Parada - 03/06/2019 3:17 PM CST PA for Suction dilation and curettage with Jesus at [facility] on 03/20/19 has been sent. GER FRONT OFFICE Telephone Encounter - Marylou Urena R.N. - 03/06/2019 1:53 PM CST [facility] Surgery Clinic Checklist Patient Contact Number: [phone] Surgeon: Dr. Lee Surgical Service: (_) Orthopedics (_) General surgery (_) Ophthalmology (_) Podiatry (_) ENT (_) Urology (X) OB / Gynecology (_) Other Date of Surgery: 03/20/2019 Place of Surgery: [facility] Procedure (as written on Consent): Suction dilation and curettage Right, Left, Bilateral, N/A: N/A Diagnosis (reason for surgery): Missed ICD-10: 00735 CPT:O02.1 Case Type: (_) Outpatient (_) AM Admit (_) Inpatient (X) One day surgery Pre-op MD: Dr. Lee Post-Op Appt:(time frame when to return): 2 weeks Surgery Brochure Given: (X) Yes (_) No (_) Mailed to Patient GER FRONT OFFICE documented in this encounter Plan of Treatment Not on filedocumented as of this encounter Visit Diagnoses Not on filedocumented in this encounter Additional Health Concerns Assessment Noted Time PHQ-9 Depression Total Score: 15 09/28/2017 3:51 PM CD T documented as of this encounter Care Teams Peoplesoft Consultant Relationship Specialty Start Date End Date Marisel Ferrer M.D. PCP - General Family Medicine 07/11/18 03/24/[address] [address] documented as of this encounter
--- OUTSIDE RECORDS SUMMARY | 2021-12-08 16:54 | XMS_ITS | Encounter Summary ---
:1985 Author Organization [facility] Address [address] [place] [address] Care Team Providers Name Role Phone Marisel Ferrer M.D. Primary Care Provider [phone] Encounter Details Date Type Department Care Team Description 02/25/2019 Silent Schedule Department of Obstetrics [place], and Gynecology in [place], [place] [address] [phone] (Wo rk) Social History Tobacco Use Types [...] 11/27/2019 relatives? How often do you attend anabaptism or druze Never 01/31/2019 services? Do you belong to any clubs or organizations such as No 01/31/2019 anabaptism groups, unions, fraternal or athletic groups, or [...] at Date Recorded Female 01/11/2018 2:20 PM LICENSING WORKER documented as of this encounter Plan of Treatment Not on filedocumented as of this encounter Procedures Procedure Name Priority Date/Time Associated Comments Diagnosis US OB LIMITED RAD - Routine 02/25/2019 2:31 Missed Results for this (most inpatients PM LICENSING WORKER (HCC) procedure a re in and all the results outpatients) section. documented in this encounter Results US OB Limited (02/25/2019 2:31 PM LICENSING WORKER) P athologist Signature CRL 32.3 mm Anatomical Region Laterality Modality Ultrasound OB RST LOS, Ultrasound ARZ LOS, Ultrasound FLA LO S, N/A Ultrasound Ultrasound ARZ LOS Specimen (Source) Anatomical Location Collection Method / Collectio n Time Received Time / Laterality Volume Narrative 02/25/2019 2:31 PM LICENSING WORKER Nonviable intrauterine noted with crown-rump length of [...] documented as of this encounter Care Teams Street Superintendent Relationship Specialty Start Date End Date Marisel Ferrer M.D. PCP - General Family Medicine 07/11/18 03/24/20 [address] [place] [phone] documented as of this encounter
--- OUTSIDE RECORDS SUMMARY | 2021-12-08 16:54 | XMS_ITS | Encounter Summary ---
:1985 Author Organization [facility] Address [address] [place] [address] Care Team Providers Name Role Phone Marisel Ferrer M.D. Primary Care Provider [phone] Encounter Details Date Type Department Care Team Description 02/03/2019 Clinical Communication Department of Jesus Obstetrics and [place] Gynecology in [address] [phone] [place] [phone] Social History Tobacco Use Types Packs/Day [...] How often do you attend pentecostal or quaker Never 01/31/2019 services? Do you [...] to pay for the very basics like [employer] hat hard 11/27/2019 food, housing, medical care, [...] Date Recorded Female 01/11/2018 2:20 PM ASSISTANT BOYS TRACK COACH documented as of this encounter Miscellaneous Notes Telephone Encounter - Marylou Urena R.N. - 02/04/2019 1:03 PM CST No, the lab places the order for antibody identification. STANT BOYS TRACK COACH Telephone Encounter - Joy Lee M.D. - 02/04/2019 12:55 PM ASSISTANT BOYS TRACK COACH Noted. I agree with plan. Do I need to place the order? STANT BOYS TRACK COACH Telephone Encounter - Chika Napier - 02/03/2019 1:50 PM CST The order will be in for additional testing and will need to be completed after her 02/14/[address] Lee. STANT BOYS TRACK COACH Telephone Encounter - Alessandra De Anda - 02/03/2019 12:52 PM CST Reason for Communication: Scooter from [facility] [place] calling, is needing an additional antibody screen added and patient has upcoming appt on 02/14, wondering if it can be done at that time Current Can Nursing/Provider leave a detailed message: yes Did the patient refuse triage through Nurse line? (for symptom based concerns): Action Needed: Name of Medication (if relevant): STANT BOYS TRACK COACH documented in this encounter Plan of Treatment Not on filedocumented as of this encounter Visit Diagnoses Not on filedocumented in this encounter Additional Health Concerns Assessment Noted Time PHQ-9 Depression Total Score: 15 09/28/2017 3:51 PM CD T documented as of this encounter Care Teams Cement Grinding Mill Operator Relationship Specialty Start Date End Date Marisel Ferrer M.D. PCP - General Family Medicine 07/11/18 03/24/[address] [phone] documented as of this encounter
--- OUTSIDE RECORDS SUMMARY | 2021-12-08 16:54 | XMS_ITS | Encounter Summary ---
:1985 Author Organization [facility] Address [address] [place] [address] Care Team Providers Name Role Phone Marisel Ferrer M.D. Primary Care Provider [phone] Reason for Referral Outpatient (Routine) - Closed Specialty Diagnoses / Procedures Referred By Contact Refer red To Contact Obstetrics and Diagnoses Examination Other Normal First Trimester (HCC) QIANA Lee [facility] Gynecology [place] [address] [place] [address] Referral ID Status Reason Start Date Expiration Date Visits Requ ested Visits Authorized [id number] Closed 01/31/2019 01/31/2020 1 1 CLER Specialty Diagnoses / Procedures Referred By Contact Adamaris mcdowell To Contact Joy Lee M.D. [facility] [address] [place] [address] Referral ID Status Reason Start Date Expiration Date Visits Requ ested Visits Authorized Scheduling Instructions Schedule for 1 hour CLER Outpatient (Routine) - Closed Specialty Diagnoses / Procedures Referred By Contact Adamaris mcdowell To Contact Family Medicine Diagnoses Attention Deficit With Hyperactivity Disorder Joy Lee [facility] [place] [facility] M.D. [address] [place] [address] Referral ID Status Reason Start Date Expiration Date Visits Requ ested Visits Authorized [id number] Closed 01/31/2019 01/31/2020 1 1 Scheduling Instructions Trudi CLER Reason for Visit Reason Comments Initial Visit Bad cramping Appointment Request (Routine) - Closed Specialty Diagnoses / Procedures Referred By Contact Refer red To Contact Obstetrics and Gynecology Referral ID Status Reason Start Date Expiration Date Visits Requ ested Visits Authorized [id number] Closed 01/30/2019 01/30/2020 Encounter Details Date Type Department Care Team Description 01/31/2019 Initial Department of Obstetrics DARREL Lee: 7w0d and Gynecology in [place], [place] [address] [phone] (Wo rk) Social History Tobacco Use Types [...] How often do you attend moravian or holiness Never 01/31/2019 services? 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/2018 2:20 PM RECYCLER documented as of this encounter Last Filed Vital Signs Vital Sign Reading Time Taken Comments Blood Pressure 110/62 01/31/2019 8:43 AM RECYCLER Pulse - - Temperature - - Respiratory Rate - - Oxygen Saturation - - Inhaled Oxygen Concentration - - Weight 53.3 kg (117 lb 8.1 oz) 01/31/2019 8:43 AM RECYCLER Height - - Body Mass Index 20.49 01/29/2019 8:49 AM RECYCLER documented in this encounter Progress Notes Joy [...] today. She r ecently started DBT through [facility] in [place], and she believes that will help with [...] weeks with me for new OB visit. CLER documented in this encounter Miscellaneous Notes Assessment & Plan Note - Joy Lee M.D. - 01/31/2019 5:36 PM RECYCLER Associated Problem(s): Examination Other Normal First Trimester (HCC) (Deleted) New OB labs today. Plan OB education in 1 month. CLER documented in this encounter Plan of Treatment Scheduled Referrals Name Type Priority Associated Diagnoses Order S [facility] Family Medicine - Outpatient Referral Routine [...] Results fo r this (most inpatients PM RECYCLER Other procedure are in and all Normal the results outpatients) First Trimester section. documented in this encounter Results US OB Limited (01/31/2019 5:42 PM RECYCLER) athologist Signature FHR 126 bpm CRL 7.1 mm Anatomical Region Laterality Modality Ultrasound OB RST LOS, Ultrasound ARZ LOS, Ultrasound FLA LO S, N/A Ultrasound Ultrasound ARZ LOS Specimen (Source) Anatomical Location Collection Method / Collectio n Time Received Time / Laterality Volume Narrative 01/31/2019 5:42 PM RECYCLER Single, living intrauterine with crown-rump length of 7.1 mm corresponding to 6+5 weeks gestational a ge. ??Cardiac activity is present 126 beats per minute. ??Gestational sac is fundal. ??The yolk sac is not visualized. ??Appropriate interval growt h since the last ultrasound. Joy Lee M.D. IMG OB US PROCEDURES 25-Hydroxyvitamin D2 and D3 (01/31/2019 10:19 AM RECYCLER) athologist Signature 25-Hydroxy D2 <4.0 ng/mL 02/06/2019 SDSC 1:50 AM RECYCLER 25-Hydroxy D3 32 ng/mL 02/06/2019 SDSC 1:50 AM RECYCLER 25-Hydroxy D 32 ng/mL 02/06/2019 [facility] Total 1:50 AM RECYCLER Comment: ----REFERENCE VALUE---- 25-HYDROXY D TOTAL (D2+D3) Optimum level s in the healthy population are 20-50, patients with bone disease may benefit from higher levels within this r hoa. ----ADDITIONAL INFORMATION---- This test was developed and its performa nce characteristics determined by [facility] in a manner consistent with CLIA requirements. This test has not been cleared or approved by the [place] d and Drug Administration. Specimen Anatomical Collection Method Collection Time Receive d Time (Source) Location / / Volume Laterality Blood (Blood, 01/31/2019 10:19 02/03/2019 7:56 Venous) AM RECYCLER AM RECYCLER Joy Lee M.D. LAB BLOOD ADD-ON Performing Organization Address City/State/ZIP Code Phon e Number [facility] [address] [place] [address] [place] [address] [facility] [place] [address] Laboratory Medicine and Pathology [address] [place] Syphilis Total Ab w/ Reflex, Serum (01/31/2019 10:19 AM RECYCLER) Patholo gist Method Time Signature Syphilis Nonreactive Nonreactive 02/02/2019 [facility] Total Ab w/ 12:03 PM RECYCLER Reflex Comment: No serologic evidence of infection with T. pallidum (syphilis). ??Repeat testing may be cons idered in patients with suspected acute or primary syphilis in 2-4 weeks. For additional information on interpreta tion of the syphilis reverse algorithm and resul ts, see: [email or web address] it-[email or web address]_Algorithm.p df Specimen Anatomical Collection Method Collection Time Receive d Time (Source) Location / / Volume Laterality Blood (Blood, 01/31/2019 10:19 02/01/2019 2:44 Venous) AM RECYCLER PM RECYCLER Joy Lee M.D. LAB BLOOD ADD-ON Performing Organization Address [facility] Phon e Number [address] [phone] [facility] [place] [address] System [address] Rubella Antibodies, IgG (01/31/2019 10:19 AM RECYCLER) P athologist Signature Rubella Ab, Positive 02/02/2019 [facility] IgG, S 12:03 PM RECYCLER Comment: Results suggest response to immunization or prior exposure to the virus. ----REFERENCE VALUE---- Vaccinated: Positive (>=1.0 AI) Unvaccinated: Negative (<=0.7 AI) Rubella IgG Antibody Index 2.7 02/02/2019 12 :03 PM RECYCLER [facility] Specimen Anatomical Collection Method Collection Time Receive d Time (Source) Location / / Volume Laterality Blood (Blood, 01/31/2019 10:19 02/01/2019 2:44 Venous) AM RECYCLER PM RECYCLER Joy Lee M.D. LAB MICROBIOLOGY - BLOOD ORD ERABLES Performing Organization Address City/[facility] Phon e Number [address] [phone] [place] [address] System in [address] Hepatitis B Surface Antigen (01/31/2019 10:19 AM RECYCLER) [facility] LemonCrate Method Time Signature HBs Antigen, Nonreactive Nonreactive 01/31/2019 AUST S 4:48 PM RECYCLER Comment: Biotin has been identified by the madeline wheatley as a potential interfering substance. ??Higher concentr ations of biotin may be found in multivitamins, hair/nail supple ments, and workout supplements. ??If the result does not ma [facility] clinical observations, repeat testing after patient refrains fr om the use of supplements for at least 12 hours. Specimen Anatomical Collection Method Collection Time Receive d Time (Source) Location / / Volume Laterality Blood (Blood, 01/31/2019 10:19 01/31/2019 3:43 Venous) AM RECYCLER PM RECYCLER Joy Lee M.D. LAB MICROBIOLOGY - BLOOD ORD ERABLES Performing Organization Address City/State/ZIP Code Phon e Number [facility]- [address] LAB AUST [place] [facility] - [address] (ABNORMAL) CBC with Differential, Blood (01/31/2019 10:19 AM RECYCLER) [facility] Method Time Signature Hemoglobin 12.4 11.6 - 01/31/2019 FB60 15.0 g/dL 10:34 AM RECYCLER Hematocrit 38.4 35.5 - 01/31/2019 FB60 44.9 % 10:34 AM RECYCLER Erythrocytes 4.28 3.92 - 01/31/2019 FB60 5.13 10:34 AM RECYCLER x10(12)/L MCV 89.7 78.2 - 01/31/2019 FB60 97.9 fL 10:34 AM RECYCLER RBC Distrib Width 13.0 12.2 - 01/31/2019 FB60 16.1 % 10:34 AM RECYCLER Platelet Count 299 157 - 371 01/31/2019 FB60 x10(9)/L 10:34 AM RECYCLER Leukocytes 11.3 (H) 3.4 - 9.6 01/31/2019 FB60 x10(9)/L 10:34 AM RECYCLER Neutrophils 8.92 (H) 1.56 - 01/31/2019 FB60 6.45 10:34 AM RECYCLER x10(9)/L Lymphocytes 1.67 0.95 - 01/31/2019 FB60 3.07 10:34 AM RECYCLER x10(9)/L Monocytes 0.63 0.26 - 01/31/2019 FB60 0.81 10:34 AM RECYCLER x10(9)/L Eosinophils 0.07 0.03 - 01/31/2019 FB60 0.48 10:34 AM RECYCLER x10(9)/L Basophils 0.01 0.01 - 01/31/2019 FB60 0.08 10:34 AM RECYCLER x10(9)/L Specimen Anatomical Collection Method Collection Time Receive d Time (Source) Location / / Volume Laterality Blood (Blood, 01/31/2019 10:19 01/31/2019 Venous) AM RECYCLER 10:19 AM RECYCLER Joy Lee M.D. LAB BLOOD ADD-ON Performing Organization Address City/State/ZIP Code Phon e Number [address] [place] [address] [facility] [address] [place] [address] System [address] ABORh, RBC (01/31/2019 10:19 AM RECYCLER) P athologist Signature ABO Group A 02/01/2019 10:45 AUST AM RECYCLER Rh Type NEG 02/01/2019 10:45 AUST AM RECYCLER Specimen Anatomical Collection Method Collection Time Receive d Time (Source) Location / / Volume Laterality Blood (Blood, 01/31/2019 10:19 01/31/2019 3:42 Venous) AM RECYCLER PM RECYCLER Joy Lee M.D. LAB BLOOD BANK TEST ORDERABL ES Performing Organization Address City/State/ZIP Code Phon e Number [facility]- [address] [place] [address] [facility] [place], [place] [address] [place] [address] (ABNORMAL) Antibody Screen, RBC (with reflex Antibody ID) (01/31/2019 10:19 AM RECYCLER) P athologist Signature Antibody POS (A) 02/01/2019 AUST Screen 10:45 AM RECYCLER Specimen Anatomical Collection Method Collection Time Receive d Time (Source) Location / / Volume Laterality Blood (Blood, 01/31/2019 10:19 01/31/2019 3:42 Venous) AM RECYCLER PM RECYCLER Joy Lee M.D. LAB BLOOD BANK TEST ORDERABL ES Performing Organization Address City/State/ZIP Code Phon e Number [facility]- [address] [place] [address] [facility] [place] [address] [facility] [address] (ABNORMAL) Bacterial Culture, Aerobic + Susc, Urine (01/31/2019 10:15 AM RECYCLER) Analysis Performed At Patho logist Time Signature Urine Culture Mixed 02/01/2019 MKTO sumeet. (A) 4:15 PM RECYCLER Specimen Anatomical Collection Method Collection Time Receive d Time (Source) Location / / Volume Laterality Urine (Urine, 01/31/2019 10:15 01/31/2019 7:01 Midstream) AM RECYCLER PM RECYCLER Comment: Specimen Source Site: Urine Joy Lee M.D. LAB MICROBIOLOGY - GENERAL O RDERABLES Performing Organization Address City/[facility]/ZIP Code Phon e Number [facility]- [address] [place] [phone] [place] [address] [place] [address] [address] documented in this encounter Visit Diagnoses [...] documented as of this encounter Care Teams Last Marker Relationship Specialty Start Date End Date Marisel Ferrer M.D. PCP - General Family Medicine 07/11/18 03/24/20 [address] [place] [phone] documented as of this encounter
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
--- OUTSIDE RECORDS SUMMARY | 2021-12-08 16:54 | XMS_ITS | Encounter Summary ---
:1985 Author Organization [facility] Address [address] [place] [address] Care Team Providers Name Role Phone Marisel Ferrer M.D. Primary Care Provider [phone] Encounter Details Date Type Department Care Team Description 01/31/2019 Silent Schedule Department of Obstetrics [place], and Gynecology in [place], [place] [address] [phone] (Wo rk) Social History Tobacco Use Types [...] 11/27/2019 relatives? How often do you attend taoist or restorationism Never 01/31/2019 services? Do you belong to any clubs or organizations such as No 01/31/2019 taoist groups, unions, fraternal or athletic groups, or [...] at Date Recorded Female 01/11/2018 2:20 PM ALTERATION WORKROOM SUPERVISOR documented as of this encounter Plan of Treatment Not on filedocumented as of this encounter Procedures Procedure Name Priority Date/Time Associated Comments Diagnosis US OB LIMITED RAD - Routine 01/31/2019 5:42 Examination Results fo r this (most inpatients PM ALTERATION WORKROOM SUPERVISOR Other procedure are in and all Normal the results outpatients) First Trimester section. documented in this encounter Results US OB Limited (01/31/2019 5:42 PM ALTERATION WORKROOM SUPERVISOR) P athologist Signature FHR 126 bpm CRL 7.1 mm Anatomical Region Laterality Modality Ultrasound OB RST LOS, Ultrasound ARZ LOS, Ultrasound FLA LO S, N/A Ultrasound Ultrasound ARZ LOS Specimen (Source) Anatomical Location Collection Method / Collectio n Time Received Time / Laterality Volume Narrative 01/31/2019 5:42 PM ALTERATION WORKROOM SUPERVISOR Single, living intrauterine with crown-rump length of [...] documented as of this encounter Care Teams Solidworks Mechanical Designer Relationship Specialty Start Date End Date Marisel Ferrer M.D. PCP - General Family Medicine 07/11/18 03/24/20 [address] [place] [phone] documented as of this encounter
--- OUTSIDE RECORDS SUMMARY | 2021-12-08 16:54 | XMS_ITS | Encounter Summary ---
:1985 Author Organization [facility] Address [address] [place] [address] Care Team Providers Name Role Phone Marisel Ferrer M.D. Primary Care Provider [phone] Encounter Details Date Type Department Care Team Description 03/06/2019 Ancillary Procedure Department of Obstetrics Andrea aldana, and Gynecology in [place], [place] [address] [phone] Social History Tobacco Use Types Packs/Day Years [...] 11/27/2019 relatives? How often do you attend adventist or mandaeism Never 01/31/2019 services? Do you belong to any clubs or organizations such as No 01/31/2019 adventist groups, unions, fraternal or athletic groups, or [...] at Date Recorded Female 01/11/2018 2:20 PM CUTTER DOWN documented as of this encounter Plan of Treatment Not on filedocumented as of this encounter Procedures Procedure Name Priority Date/Time Associated Comments Diagnosis US PELVIS RAD - Routine 03/06/2019 3:08 Missed Results for this TRANSVAGINAL (most inpatients PM CUTTER DOWN (HCC) procedure a re in and all the results outpatients) section. documented in this encounter Results US Pelvis Transvaginal (03/06/2019 3:08 PM CUTTER DOWN) Anatomical Region Laterality Modality Pelvis, Ultrasound RST LOS, Ultrasound ARZ LOS, Ultrasound F LA N/A Ultrasound LOS Specimen (Source) Anatomical Location Collection Method / Collectio n Time Received Time / Laterality Volume Narrative 03/06/2019 3:08 PM CUTTER DOWN Single, intrauterine with crown-rump length of 30.2 mm corresponding to 10+ 0 weeks gestational age. ??Cardiac activity is not visualized. ??Yolk sac is visualized. ?? The gestational sac is fundal. ?? Findings are consistent with missed abor tion. The report for this exam was documented during the exam and is located with the images in Qreads. Joy MEHTA US PROCEDURES documented in this encounter Visit Diagnoses Not on filedocumented in this encounter Additional Health Concerns Assessment Noted Time PHQ-9 Depression Total Score: 15 09/28/2017 3:51 PM CD T documented as of this encounter Care Teams College Scouting Coordinator Relationship Specialty Start Date End Date Marisel Ferrer M.D. PCP - General Family Medicine 07/11/18 03/24/[address] [address] documented as of this encounter
--- OUTSIDE RECORDS SUMMARY | 2021-12-08 16:54 | XMS_ITS | Encounter Summary ---
:1985 Author Organization [facility] Address [address] [place] [address] Care Team Providers Name Role Phone Marisel Ferrer M.D. Primary Care Provider [phone] Encounter Details Date Type Department Care Team Description 04/04/2019 Clinical Communication Department of Jesus Obstetrics and [place] Gynecology in [address] [place], [place] [address] [facility] [address] [place], [place] [phone] [address] (Work) [phone] Social History Tobacco Use Types Packs/Day Years [...] How often do you attend faith or scientologist Never 01/31/2019 services? 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/2018 2:20 PM PASTA MAKER documented as of this encounter Miscellaneous Notes Telephone Encounter - Virgen Harris R.N. - 04/07/2019 8:20 AM CST Name of person contacted: Patient Relationship to patient: Not applicable Call back number: n/a Moving Picture Producer: Not applicable Information provided: results/recommendations. Does not wish to schedule any further consults at this time. Advised to call back if she desires in the future personal lines advisor/patient received and understood education/information provided: Yes personal lines advisor/patient agreed to the Plan of Care: Yes A MAKER Telephone Encounter - Joy Lee M.D. - 04/04/2019 6:07 PM PASTA MAKER Please let Wendi know that the genetic studies returned normal on the products of the . 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 If she would like to discuss the recurrent losses further, she should schedule an appointment A MAKER documented in this encounter Plan of Treatment Not on filedocumented as of this encounter Visit Diagnoses Not on filedocumented in this encounter Additional Health Concerns Assessment Noted Time PHQ-9 Depression Total Score: 15 09/28/2017 3:51 PM CD T documented as of this encounter Care Teams System Development Engineer Relationship Specialty Start Date End Date Marisel Ferrer M.D. PCP - General Family Medicine 07/11/18 03/24/20 [address] [address] documented as of this encounter
--- OUTSIDE RECORDS SUMMARY | 2021-12-08 16:54 | XMS_ITS | Encounter Summary ---
:1985 Author Organization [facility] Address [address] [place] [address] Care Team Providers Name Role Phone Marisel Ferrer M.D. Primary Care Provider [phone] Reason for Visit Reason Comments Routine Visit 9 weeks Outpatient (Routine) - Closed Specialty Diagnoses / Procedures Referred By Contact Refer red To Contact Obstetrics and Diagnoses Examination Other Normal First Trimester (HCC) QIANA Lee [facility] Gynecology [place] [address] [place] [address] Referral ID Status Reason Start Date Expiration Date Visits Requ ested Visits Authorized [id number] Closed 01/31/2019 01/31/2020 1 1 Encounter Details Date Type Department Care Team Description 02/14/2019 Routine Department of Aravind Lee Other Normal First Trimester (Primary Dx); Obstetrics and [place] Depression Major; Gynecology in [address] Anxiety Genera lized Disorder; [place], [place] St Pain Foot Left; [address] [place], [place] Pain Low Back Chronic; [place] [address] Attention Deficit With Hyperactivity Dis order; [phone] Insomnia; Nausea And Vomiting; [phone] Threat ened (Fax) Social History Tobacco Use [...] How often do you attend mu-ism or latter-day Never 01/31/2019 services? 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/2018 2:20 PM TOUR NARRATOR documented as of this encounter Last Filed Vital Signs Vital Sign Reading Time Taken Comments Blood Pressure 118/66 02/14/2019 11:19 AM TOUR NARRATOR Pulse - - Temperature - - Respiratory Rate - - Oxygen Saturation - - Inhaled Oxygen Concentration - - Weight 52.2 kg (115 lb 1.3 oz) 02/14/2019 11:19 AM TOUR NARRATOR Height - - Body Mass Index 19.89 02/14/2019 10:39 AM TOUR NARRATOR documented in this encounter Progress Notes Joy [...] in discussed.. She recently started D[facility] through [facility] in [place], and she believes that will help with her mood symptoms. She has had some situational things that she believes are contributing to mood symptoms. She has been in contact with her psychiatrist at [facility] in [place] who recommended against restarting the prozac. She [...] in 1 month for New OB visit. NARRATOR documented in this encounter Miscellaneous Notes Assessment & Plan Note - Joy Lee M.D. - 02/14/2019 12:56 PM TOUR NARRATOR Associated Problem(s): Examination Other Normal First Trimester (HCC) (Deleted) New OB labs today. Plan OB education in 2 weeks. NARRATOR documented in this encounter Plan of Treatment Not on filedocumented as of this encounter Procedures Procedure Name Priority Date/Time Associated Comments Diagnosis US OB LIMITED RAD - Routine 02/14/2019 1:32 Examination Results fo r this (most inpatients PM TOUR NARRATOR Other procedure are in and all Normal the results outpatients) First Trimester section. documented in this encounter Results US OB Limited (02/14/2019 1:32 PM TOUR NARRATOR) P athologist Signature FHR 172 bpm CRL 19.5 mm Anatomical Region Laterality Modality Ultrasound OB RST LOS, Ultrasound ARZ LOS, Ultrasound FLA LO S, N/A Ultrasound Ultrasound ARZ LOS Specimen (Source) Anatomical Location Collection Method / Collectio n Time Received Time / Laterality Volume Narrative 02/14/2019 1:32 PM TOUR NARRATOR Single, living intrauterine with crown-rump length of [...] documented as of this encounter Care Teams Drill Runner Helper Relationship Specialty Start Date End Date Marisel Ferrer M.D. PCP - General Family Medicine 07/11/18 03/24/20 [address] [place] [phone] documented as of this encounter
--- OUTSIDE RECORDS SUMMARY | 2021-12-08 16:54 | XMS_ITS | Encounter Summary ---
:[address] [facility] Address [address] [place] [address] Care Team Providers Name Role Phone Marisel Ferrer M.D. Primary Care Provider [phone] Reason for Visit Reason Comments Initial Visit Outpatient (Routine) - Canceled Specialty Diagnoses / Procedures Referred By Contact Refer red To Contact Obstetrics and David Allison M.D. [facility]ne[facility] [address] [place] [address] Referral ID Status Reason Start Date Expiration Date Visits V isits Requested Authorized [id number] Canceled 01/27/2019 01/27/2020 1 1 Encounter Details Date Type Department Care Team Description 01/29/2019 Routine Department of Gertrudis Carr Obstetrics jayda Mueller M.D. Examination T est Gynecology in With Positive Result [place], (Primary Dx) [address] [phone] Social History Tobacco Use Types Packs/Day Years [...] 11/27/2019 relatives? How often do you attend mormon or mandaen Never 01/31/2019 services? Do you belong to any clubs or organizations such as No 01/31/2019 mormon groups, unions, fraternal or athletic groups, or [...] at Date Recorded Female 01/11/2018 2:20 PM MUSEUM GUIDE documented as of this encounter Last Filed Vital Signs Vital Sign Reading Time Taken Comments Blood Pressure 104/66 01/29/2019 8:42 AM MUSEUM GUIDE Pulse 72 01/29/2019 8:42 AM MUSEUM GUIDE Temperature - - Respiratory Rate 16 01/29/2019 8:42 AM MUSEUM GUIDE Oxygen Saturation - - Inhaled Oxygen Concentration - - Weight 53.4 kg (117 lb 13.4 oz) 01/29/2019 8:42 AM MUSEUM GUIDE Height 161.3 cm (5' 3.5) 01/29/2019 8:49 AM MUSEUM GUIDE Body Mass Index 20.55 01/29/2019 8:42 AM MUSEUM GUIDE documented in this encounter Progress Notes Gertrudis Carr M.D. - 01/29/2019 9:15 AM CST Did not see patient, she left office prior to being seen, advised to reschedule by staff. UM GUIDE documented in this encounter Plan of Treatment Not on filedocumented as of this encounter Visit Diagnoses Diagnosis Examination Test With Positive Result (HCC) - Primary documented in this encounter Additional Health Concerns Assessment Noted Time PHQ-9 Depression Total Score: 15 09/28/2017 3:51 PM CD T documented as of this encounter Care Teams Ferryboat Captain Relationship Specialty Start Date End Date Marisel Ferrer M.D. PCP - General Family Medicine 07/11/18 03/24/20 [address], [place] [address] documented as of this encounter
--- OUTSIDE RECORDS SUMMARY | 2021-12-08 16:54 | XMS_ITS | Encounter Summary ---
:1985 Author Organization [facility] Address [address] [place] [address] Care Team Providers Name Role Phone Marisel Ferrer M.D. Primary Care Provider [phone] Encounter Details Date Type Department Care Team Description 02/14/2019 Silent Schedule Department of Obstetrics [place], and Gynecology in [place], [place] [address] [phone] (Wo rk) Social History Tobacco Use Types [...] How often do you attend pentecostalism or scientology Never 01/31/2019 services? Do you belong to [...] Date Recorded Female 01/11/2018 2:20 PM MANAGER MUSIC documented as of this encounter Plan of Treatment Not on filedocumented as of this encounter Procedures Procedure Name Priority Date/Time Associated Comments Diagnosis US OB LIMITED RAD - Routine 02/14/2019 1:32 Examination Results fo r this (most inpatients PM MANAGER MUSIC Other procedure are in and all Normal the results outpatients) First Trimester section. documented in this encounter Results US OB Limited (02/14/2019 1:32 PM MANAGER MUSIC) P athologist Signature FHR 172 bpm CRL 19.5 mm Anatomical Region Laterality Modality Ultrasound OB RST LOS, Ultrasound ARZ LOS, Ultrasound FLA LO S, N/A Ultrasound Ultrasound ARZ LOS Specimen (Source) Anatomical Location Collection Method / Collectio n Time Received Time / Laterality Volume Narrative 02/14/2019 1:32 PM MANAGER MUSIC Single, living intrauterine with crown-rump length of [...] documented as of this encounter Care Teams Motion Picture Set Up Worker Relationship Specialty Start Date End Date Marisel Ferrer M.D. PCP - General Family Medicine 07/11/18 03/24/20 [address], [place] [address] documented as of this encounter
--- OUTSIDE RECORDS SUMMARY | 2021-12-08 16:54 | XMS_ITS | Encounter Summary ---
:1985 Author Organization [facility] Address [address] [place] [address] Care Team Providers Name Role Phone Marisel Ferrer M.D. Primary Care Provider [phone] Reason for Visit Reason Onset Date Comments NOB 01/29/2019 Encounter Details Date Type Department Care Team Description 01/29/2019 Clinical Communication Department of NICOLE Lee Obstetrics and [place] Gynecology in [address] [place], [place] 200 [facility] [place] [place] [address] [place], [place] [phone] [address] (Work) [phone] Social History Tobacco Use Types Packs/Day Years [...] How often do you attend sabianist or judaism Never 01/31/2019 services? Do you [...] to pay for the very basics like [employer] hat hard 11/27/2019 food, housing, medical care, [...] at Date Recorded Female 01/11/2018 2:20 PM SALESPERSON FLORIST SUPPLIES documented as of this encounter Miscellaneous Notes [...] back Name of Medication (if relevant): na SPERSON FLORIST SUPPLIES documented in this encounter Plan of Treatment Not on filedocumented as of this encounter Visit Diagnoses Not on filedocumented in this encounter Additional Health Concerns Assessment Noted Time PHQ-9 Depression Total Score: 15 09/28/2017 3:51 PM CD T documented as of this encounter Care Teams Principal Java Developer Relationship Specialty Start Date End Date Marisel Ferrer M.D. PCP - General Family Medicine 07/11/18 03/24/[address] [phone] documented as of this encounter
--- OUTSIDE RECORDS SUMMARY | 2021-12-08 16:54 | XMS_ITS | Encounter Summary ---
:1985 Author Organization [facility] Address [address] [place] [address] Care Team Providers Name Role Phone Marisel Ferrer M.D. Primary Care Provider [phone] Reason for Visit Reason Comments Med Refill Encounter Details Date Type Department Care Team Description 03/06/2019 Refill Department of Dermatology in Elsi Resendiz APRN, Med Refill [place], [place] C.N.P., M.S.N. [address] [place] [address] [place] [phone] (Wo rk) Social History Tobacco Use Types [...] How often do you attend advent or holiness Never 01/31/2019 services? Do you [...] to pay for the very basics like Uguruw hat hard 11/27/2019 food, housing, medical care, [...] Date Recorded Female 01/11/2018 2:20 PM MEDICAL PRACTICE MANAGER documented as of this encounter Miscellaneous Notes Telephone Encounter - Sol Barber R.N. - 03/06/2019 2:16 PM CST Please review CAL PRACTICE MANAGER Telephone Encounter - Laverne Malave - 03/06/2019 9:04 AM CST Med list states patient is using differently. CAL PRACTICE MANAGER documented in this encounter Plan of Treatment Not on filedocumented as of this encounter Visit Diagnoses Not on filedocumented in this encounter Additional Health Concerns Assessment Noted Time PHQ-9 Depression Total Score: 15 09/28/2017 3:51 PM CD T documented as of this encounter Care Teams Nephrologist Relationship Specialty Start Date End Date Marisel Ferrer M.D. PCP - General Family Medicine 07/11/18 03/24/[address] [phone] documented as of this encounter
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
--- OUTSIDE RECORDS SUMMARY | 2021-12-08 16:54 | XMS_ITS | Encounter Summary ---
:1985 Author Organization [facility] Address [address] [place] [address] Care Team Providers Name Role Phone Marisel Ferrer M.D. Primary Care Provider [phone] Encounter Details Date Type Department Care Team Description 11/11/2019 Orders Only Department of Madelinenjdebbie, Exam ination Obstetrics and [place]lu [place] Test With Positive Gynecology in 2199 Result (Primary Dx) [place], [place] [address] [address] [place], [place] [phone] (Work) [phone] Social History Tobacco Use Types Packs/Day Years [...] 11/27/2019 relatives? How often do you attend yazdanism or adventism Never 01/31/2019 services? Do you belong to any clubs or organizations such as No 01/31/2019 yazdanism groups, unions, fraternal or athletic groups, or [...] to pay for the very basics like F[employer] hat hard 11/27/2019 food, housing, medical care, [...] at Date Recorded Female 01/11/2018 2:20 PM NATIONAL SALES ASSOCIATE documented as of this encounter Plan of Treatment Not on filedocumented as of this encounter Results (ABNORMAL) hCG (Human Chorionic Gonadotropin), Quantitative, (11/14/2019 2:20 PM CDT) Analysis Performed At Patho logist Time [place]CG, [address] (H) <5 IU/L 11/14/2019 OWAT Quantitative, 5:06 [...] Organization Address City/State/ZIP Code Phon e Number [facility]- [address] [place] [address] [place] [address] System in [place] [address] (ABNORMAL) hCG (Human [...] Organization Address City/State/ZIP Code Phon e Number [facility]- [address] [place] [address] [place] [address] System in [place] [address] documented in this encounter Visit Diagnoses Diagnosis Examination Test With Positive Result (HCC) - Primary documented in this encounter Additional Health Concerns Assessment Noted Time PHQ-9 Depression Total Score: 15 09/28/2017 3:51 PM CD T documented as of this encounter Care Teams Cardiac Cath Technician Relationship Specialty Start Date End Date Marisel Ferrer M.D. PCP - General Family Medicine 07/11/18 03/24/202199 [place] [address] documented as of this encounter
--- OUTSIDE RECORDS SUMMARY | 2021-12-08 16:54 | XMS_ITS | Encounter Summary ---
:1985 Author Organization [facility] Address [address] [place] [address] Care Team Providers Name Role Phone Marisel Ferrer M.D. Primary Care Provider Reason for Visit Reason Onset Date Comments Post Hospital Follow-up 12/20/2018 Encounter Details Date Type Department Care Team Description 12/20/2018 Clinical Communication [facility] of [facility], Follow-up [place] Marisel Cabrera M.D. in [address] [place] [phone] Social History Tobacco Use Types Packs/Day Years [...] 11/27/2019 relatives? How often do you attend latter-day or samaritan Never 01/31/2019 services? Do you belong to any clubs or organizations such as No 01/31/2019 latter-day groups, unions, fraternal or athletic groups, or [...] to pay for the very basics like Zo[employer] hat hard 11/27/2019 food, housing, medical care, [...] at Date Recorded Female 01/11/2018 2:20 PM EDUCATION NURSE documented as of this encounter Miscellaneous Notes Telephone Encounter - Poonrima Bennett R.N. - 12/20/2018 10:44 AM CST Noted. ATION NURSE Telephone Encounter - Smitha Monet - 12/20/2018 10:33 AM EDUCATION NURSE Called and spoke with the patient. She lives an hour away and does not plan to follow up here. She has other follow up appointments scheduled already. ATION NURSE Telephone Encounter - Janel Alberto - 12/20/2018 8:36 AM CST Hospital: Gen Diagnosis: spine surgery Discharge date: 12/20/2018 When to be seen: Gen would like the patient seen on Sunday12/23/18 for her [address] Dr Brush is out of the office. Comments: Please call the patient back to set up an appt ATION NURSE documented in this encounter Plan of Treatment Not on filedocumented as of this encounter Visit Diagnoses Not on filedocumented in this encounter Additional Health Concerns Assessment Noted Time PHQ-9 Depression Total Score: 15 09/28/2017 3:51 PM CD T documented as of this encounter Care Teams Theatre Program Director Relationship Specialty Start Date End Date Marisel Ferrer M.D. PCP - General Family Medicine 07/11/18 03/24/[address] [phone] documented as of this encounter
--- OUTSIDE RECORDS SUMMARY | 2021-12-08 16:54 | XMS_ITS | Encounter Summary ---
:1985 Author Organization [facility] Address [address] [place] [address] Care Team Providers Name Role Phone Marisel Ferrer M.D. Primary Care Provider [phone] Encounter Details Date Type Department Care Team Description 01/31/2019 Hospital Encounter Department of Alona Lee Laboratory Medicine Juana Hamilton Other Normal in [place], [address] Tr[address] [place], [place] [address] [phone] Social History Tobacco Use Types Packs/Day Years [...] How often do you attend taoism or tenriism Never 01/31/2019 services? Do you [...] to pay for the very basics like [employer] hat hard 11/27/2019 food, housing, medical care, [...] at Date Recorded Female 01/11/2018 2:20 PM MICROFILM TECHNICIAN documented as of this encounter Medications at [...] louise Results for this AEROBIC + SUSC, MICROFILM TECHNICIAN Other Normal procedure ar e in URINE First the results Trimester section. documented in this encounter Results (ABNORMAL) Bacterial Culture, Aerobic + Susc, Urine (01/31/2019 10:15 AM MICROFILM TECHNICIAN) Analysis Performed At Patho logist Time Signature Urine Culture Mixed 02/01/2019 MKTO sumeet. (A) 4:15 PM MICROFILM TECHNICIAN Specimen Anatomical Collection Method Collection Time Receive d Time (Source) Location / / Volume Laterality Urine (Urine, 01/31/2019 10:15 01/31/2019 7:01 Midstream) AM MICROFILM TECHNICIAN PM MICROFILM TECHNICIAN Comment: Specimen Source Site: Urine Joy Lee M.D. LAB MICROBIOLOGY - GENERAL O RDERABLES Performing Organization Address City/State/ZIP Code Phon e Number [facility]- [address] [place] [id number] [place] [address] [place] [address] [address] documented in this encounter Visit Diagnoses Diagnosis Examination Other Normal Pregna ncy First Trimester (HCC) documented in this encounter Additional Health Concerns Assessment Noted Time PHQ-9 Depression Total Score: 15 09/28/2017 3:51 PM CD T documented as of this encounter Care Teams Case Assistant Relationship Specialty Start Date End Date Marisel Ferrer M.D. PCP - General Family Medicine 07/11/18 03/24/20 [address] [place] [phone] documented as of this encounter
--- OUTSIDE RECORDS SUMMARY | 2021-12-08 16:54 | XMS_ITS | Encounter Summary ---
:1985 Author Organization [facility] Address [address] [place] [address] Care Team Providers Name Role Phone Marisel Ferrer M.D. Primary Care Provider [phone] Reason for Visit Reason Comments Other Would [...] Expiration Date Visits Requ ested Visits Authorized [id number] Closed 07/25/2018 07/25/2019 1 1 Encounter Details Date Type Department Care Team Description 07/26/2018 Office Visit Department of Family Huang [facility]bert For Venereal Medicine, Marisel Mcgregor, Disease (Primary Dx) Clinic, in [place] [address] [place] [phone] Social History Tobacco Use Types Packs/Day Years [...] 11/27/2019 relatives? How often do you attend bahai or shinto Never 01/31/2019 services? Do you belong to any clubs or organizations such as No 01/31/2019 bahai groups, unions, fraternal or athletic groups, or [...] at Date Recorded Female 01/11/2018 2:20 PM APARTMENT COORDINATOR documented as of this encounter Last Filed [...] Body Mass Index 20.23 01/07/2018 6:00 AM APARTMENT COORDINATOR documented in this encounter Progress Notes Marisel [...] documented as of this encounter Care Teams Devulcanizer Tender Relationship Specialty Start Date End Date Marisel Ferrer M.D. PCP - General Family Medicine 07/11/18 03/24/[address] [place] [address] documented as of this encounter
--- OUTSIDE RECORDS SUMMARY | 2021-12-08 16:54 | XMS_ITS | Encounter Summary ---
:1985 Author Organization [facility] Address [address] [place] [address] Care Team Providers Name Role Phone Marisel Ferrer M.D. Primary Care Provider Reason for Visit Reason Comments ADHD Outpatient (Routine) - Closed Specialty Diagnoses / Procedures Referred By Contact Refer red To Contact Family Medicine Diagnoses Attention Deficit With Hyperactivity Disorder Joy Lee [facility] ANNY Vo M.D. [address] [address] Referral ID Status Reason Start Date Expiration Date Visits Requ ested Visits Authorized [id number] Closed 01/31/2019 01/31/2020 1 1 Encounter Details Date Type Department Care Team Description 02/14/2019 Office Visit Department of [facility] Anusha pierce Deficit With Medicine, Marisel Moreau, Hyperac tivity Disorder Clinic, in [place] [address] [place] [address] [place] [phone] Social History Tobacco Use Types Packs/Day Years [...] How often do you attend amish or confucianist Never 01/31/2019 services? 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/2018 2:20 PM CIGAR PACKER documented as of this encounter Last Filed Vital Signs Vital Sign Reading Time Taken Comments Blood Pressure 110/64 02/14/2019 10:39 AM CIGAR PACKER Pulse 60 02/14/2019 10:39 AM CIGAR PACKER Temperature 36.9 ??C (98.4 ??F) 02/14/2019 10:39 AM CIGAR PACKER Respiratory Rate 18 02/14/2019 10:39 AM CIGAR PACKER Oxygen Saturation - - Inhaled Oxygen Concentration - - Weight 52.2 kg (115 lb 1.3 02/14/2019 10:39 AM oz) CIGAR PACKER Height 162 cm (5' 3.78) 02/14/2019 10:39 AM without sh oes CIGAR PACKER Body Mass Index 19.89 02/14/2019 10:39 AM CIGAR PACKER documented in this encounter Progress Notes Marisel [...] History: Diagnosis Date ??? Alcoholism Personal History ([facility]) [phone] ??? Borderline Personality Disorder ([facility]) 12/05/2011 ??? 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 The creation of this record is based on the scribe's personal observations and the provider's statements to them. This documenthas been checked and approved by the attending provider. R PACKER documented in this encounter Plan of Treatment Not on filedocumented as of this encounter Visit Diagnoses Diagnosis Attention Deficit With Hyperactivity Dis order documented in this encounter Additional Health Concerns Assessment Noted Time PHQ-9 Depression Total Score: 15 09/28/2017 3:51 PM CD T documented as of this encounter Care Teams Rail Operations Controller Relationship Specialty Start Date End Date Marisel Ferrer M.D. PCP - General Family Medicine 07/11/18 03/24/[address] [phone] documented as of this encounter
--- OUTSIDE RECORDS SUMMARY | 2021-12-08 16:54 | XMS_ITS | Encounter Summary ---
:1985 Author Organization [facility] Address [address] [place] [address] Care Team Providers Name Role Phone Marisel Ferrer M.D. Primary Care Provider [phone] Reason for Referral Outpatient (Routine) - Closed Specialty Diagnoses / Procedures Referred By Contact Refer red To Contact Obstetrics and Diagnoses Missed (HCC) QIANA Lee [facility] Gynecology [place] Hamilton [address] [place] [address] Referral ID Status Reason Start Date Expiration Date Visits Requ ested Visits Authorized [id number] Closed 02/25/2019 02/25/2020 1 1 Scheduling Instructions Schedule 15 minute visit BRIDGE OPERATOR Reason for Visit Reason Comments Routine Visit 10+4 weeks Patient Education OB ED Miscarriage Missed AB Encounter Details Date Type Department Care Team Description 02/25/2019 Routine Department of Aravind Lee Other Normal First Trimester (Primary Dx); Obstetrics and Olu Hamilton Missed (HCC); Gynecology in 2199 Unspecified Blood Type Rhesus Negative; [place], [place] Depression Major; [address] [address] Anxiety Generalized Disorder [place], [place] [phone] (Work) [phone] Social History Tobacco Use Types Packs/Day Years [...] How often do you attend caodaism or caodaism Never 01/31/2019 services? 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/2018 2:20 PM DRAWBRIDGE OPERATOR documented as of this encounter Last Filed Vital Signs Vital Sign Reading Time Taken Comments Blood Pressure 126/70 02/25/2019 1:29 PM DRAWBRIDGE OPERATOR Pulse - - Temperature - - Respiratory Rate - - Oxygen Saturation - - Inhaled Oxygen Concentration - - Weight 53.9 kg (118 lb 15 oz) 02/25/2019 1:29 PM DRAWBRIDGE OPERATOR Height - - Body Mass Index 20.56 02/14/2019 10:39 AM DRAWBRIDGE OPERATOR documented in this encounter Progress Joy Cosme [...] recently started DBT through [facility] in [place], and she believes that will help with her mood symptoms. She has had some situational things that she believes are contributing to mood symptoms.She has been in contact with her psychiatrist at [facility] who recommended against restarting the prozac. She [...] scheduled on February 24. Followup: 1 week. BRIDGE OPERATOR documented in this encounter Miscellaneous Notes Assessment & Plan Note - Joy Lee M.D. - 02/25/2019 2:28 PM DRAWBRIDGE OPERATOR Associated Problem(s): Depression Major Considering this missed , we will follow her mood symptoms closely as she is at risk of exacerbation. BRIDGE OPERATOR documented in this encounter Plan of Treatment Scheduled Referrals Name Type Priority Associated Order Schedule Diagnoses Obstetrics and Outpatient Referral Routine Missed Exp ected: Gynecology office ([facility]) 03/04/2019 visit (clinic) (Approximate) , Expires: 02/25/2022 documented as of this encounter Procedures Procedure Name Priority Date/Time Associated Comments Diagnosis US OB LIMITED RAD - Routine 02/25/2019 2:31 Missed Results for this (most inpatients PM DRAWBRIDGE OPERATOR ([facility]) procedure a re in and all the results outpatients) section. documented in this encounter Results US OB Limited (02/25/2019 2:31 PM DRAWBRIDGE OPERATOR) P athologist Signature CRL 32.3 mm Anatomical Region Laterality Modality Ultrasound OB RST LOS, Ultrasound ARZ LOS, Ultrasound FLA LO S, N/A Ultrasound Ultrasound ARZ LOS Specimen (Source) Anatomical Location Collection Method / Collectio n Time Received Time / Laterality Volume Narrative 02/25/2019 2:31 PM DRAWBRIDGE OPERATOR Nonviable intrauterine noted with crown-rump length of [...] documented as of this encounter Care Teams Bail Bondsman Relationship Specialty Start Date End Date Marisel Ferrer M.D. PCP - General Family Medicine 07/11/18 [address] [phone] documented as of this encounter
--- OUTSIDE RECORDS SUMMARY | 2021-12-08 16:54 | XMS_ITS | Encounter Summary ---
:1985 Author Organization [facility] Address [address] [place] [address] Care Team Providers Name Role Phone Marisel Ferrer M.D. Primary Care Provider [phone] Encounter Details Date Type Department Care Team Description 01/31/2019 Hospital Encounter Department of Alona Lee Laboratory Medicine Juana Hamilton Other Normal in [place], [address] Trimester [address] [place], [place] [address] [phone] Social History Tobacco Use Types Packs/Day Years [...] How often do you attend restorationism or bahai Never 01/31/2019 services? Do you [...] to pay for the very basics like [employer] hat hard 11/27/2019 food, housing, medical care, [...] at Date Recorded Female 01/11/2018 2:20 PM ATMOSPHERIC PHYSICIST documented as of this encounter Medications at [...] atal Results for this W/ REFLEX S ATMOSPHERIC PHYSICIST Other Normal procedure are i n First the results Trimester section. ABORH, RBC Routine 01/31/2019 10:19 AM Examination Results for this ATMOSPHERIC PHYSICIST Other Normal procedure are i n First the results Trimester section. 25-HYDROXYVITAMIN Routine 01/31/2019 10:19 AM Examination Pren atal Results for this D2 AND D3, S ATMOSPHERIC PHYSICIST Other Normal procedure are i n First the results Trimester section. RUBELLA ANTIBODIES, Routine 01/31/2019 10:19 AM Examination Pr enatal Results for this IGG ATMOSPHERIC PHYSICIST Other Normal procedure are i n First the results Trimester section. HEPATITIS B SURFACE Routine 01/31/2019 10:19 AM Examination Pr enatal Results for this ANTIGEN ATMOSPHERIC PHYSICIST Other Normal procedure are i n First the results Trimester section. CBC WITH Routine 01/31/2019 10:19 AM Examination Results for this DIFFERENTIAL, B ATMOSPHERIC PHYSICIST Other Normal procedure ar e in First the results Trimester section. ANTIBODY SCREEN, B Routine 01/31/2019 10:19 AM Examination Pre louise Results for this ATMOSPHERIC PHYSICIST Other Normal procedure are i n First the results Trimester section. documented in this encounter Results 25-Hydroxyvitamin D2 and D3 (01/31/2019 10:19 AM ATMOSPHERIC PHYSICIST) athologist Signature 25-Hydroxy D2 <4.0 ng/mL 02/06/2019 [facility]SC 1:50 AM ATMOSPHERIC PHYSICIST 25-Hydroxy D3 32 ng/mL 02/06/2019 [facility]SC 1:50 AM ATMOSPHERIC PHYSICIST 25-Hydroxy D 32 ng/mL 02/06/2019 SDS Total 1:50 AM ATMOSPHERIC PHYSICIST Comment: ----REFERENCE VALUE---- 25-HYDROXY D TOTAL (D2+D3) Optimum level s in the healthy population are 20-50, patients with bone disease may benefit from higher levels within this r hoa. ----ADDITIONAL INFORMATION---- This test was developed and its performa nce characteristics determined by [facility] in a manner consistent with CLIA requirements. This test has not been cleared or approved by the U.[place]. [place] d and Drug Administration. Specimen Anatomical Collection Method Collection Time Receive d Time (Source) Location / / Volume Laterality Blood (Blood, 01/31/2019 10:19 02/03/2019 7:56 Venous) AM ATMOSPHERIC PHYSICIST AM ATMOSPHERIC PHYSICIST Joy Lee M.D. LAB BLOOD ADD-ON Performing Organization Address City/State/ZIP Code Phon e Number [facility] [address] [place] [address] [facility] [place] [address] Laboratory Medicine and Pathology [address] [place] Syphilis Total Ab w/ Reflex, Serum (01/31/2019 10:19 AM ATMOSPHERIC PHYSICIST) Patholo gist Method Time Signature Syphilis Nonreactive Nonreactive 02/02/2019 [facility] Total Ab w/ 12:03 PM ATMOSPHERIC PHYSICIST Reflex Comment: No serologic evidence of infection with T. pallidum (syphilis). ??Repeat testing may be cons idered in patients with suspected acute or primary syphilis in 2-4 weeks. For additional information on interpreta tion of the syphilis reverse algorithm and resul ts, see: [email or web address] Specimen Anatomical Collection Method Collection Time Receive d Time (Source) Location / / Volume Laterality Blood (Blood, 01/31/2019 10:19 02/01/2019 2:44 Venous) AM ATMOSPHERIC PHYSICIST PM ATMOSPHERIC PHYSICIST Joy Lee M.D. LAB BLOOD ADD-ON Performing Organization Address [facility] Phon e Number [phone] [place] [address] System in [address] Rubella Antibodies, IgG (01/31/2019 10:19 AM ATMOSPHERIC PHYSICIST) P athologist Signature Rubella Ab, Positive 02/02/2019 [facility] IgG, S 12:03 PM ATMOSPHERIC PHYSICIST Comment: Results suggest response to immunization or prior exposure to the virus. ----REFERENCE VALUE---- Vaccinated: Positive (>=1.0 AI) Unvaccinated: Negative (<=0.7 AI) Rubella IgG Antibody Index 2.7 02/02/2019 12 :03 PM ATMOSPHERIC PHYSICIST [facility] Specimen Anatomical Collection Method Collection Time Receive d Time (Source) Location / / Volume Laterality Blood (Blood, 01/31/2019 10:19 02/01/2019 2:44 Venous) AM ATMOSPHERIC PHYSICIST PM ATMOSPHERIC PHYSICIST Joy Lee M.D. LAB MICROBIOLOGY - BLOOD ORD ERABLES Performing Organization Address City/[facility] Phon e Number [phone] [place] [address] System in [address] Hepatitis B Surface Antigen (01/31/2019 10:19 AM ATMOSPHERIC PHYSICIST) [facility] [employer] Method Time Signature HBs Antigen, Nonreactive Nonreactive 01/31/2019 AUST S 4:48 PM ATMOSPHERIC PHYSICIST Comment: Biotin has been identified by the madeline wheatley as a potential interfering substance. ??Higher concentr ations of biotin may be found in multivitamins, hair/nail supple ments, and workout supplements. ??If the result does not [facility] clinical observations, repeat testing after patient refrains fr om the use of supplements for at least 12 hours. Specimen Anatomical Collection Method Collection Time Receive d Time (Source) Location / / Volume Laterality Blood (Blood, 01/31/2019 10:19 01/31/2019 3:43 Venous) AM ATMOSPHERIC PHYSICIST PM ATMOSPHERIC PHYSICIST Joy Lee M.D. LAB MICROBIOLOGY - BLOOD ORD ERABLES Performing Organization Address City/State/ZIP Code Phon e Number [facility]- [address] [place], [place] [phone] [place] [address] LAB AUST [facility] [place], [place] [phone] [place] [address] (ABNORMAL) CBC with Differential, Blood (01/31/2019 10:19 AM ATMOSPHERIC PHYSICIST) [facility] [employer] Method Time Signature Hemoglobin 12.4 11.6 - 01/31/2019 FB60 15.0 g/dL 10:34 AM ATMOSPHERIC PHYSICIST Hematocrit 38.4 35.5 - 01/31/2019 FB60 44.9 % 10:34 AM ATMOSPHERIC PHYSICIST Erythrocytes 4.28 3.92 - 01/31/2019 FB60 5.13 10:34 AM ATMOSPHERIC PHYSICIST x10(12)/L MCV 89.7 78.2 - 01/31/2019 FB60 97.9 fL 10:34 AM ATMOSPHERIC PHYSICIST RBC Distrib Width 13.0 12.2 - 01/31/2019 FB60 16.1 % 10:34 AM ATMOSPHERIC PHYSICIST Platelet Count 299 157 - 371 01/31/2019 FB60 x10(9)/L 10:34 AM ATMOSPHERIC PHYSICIST Leukocytes 11.3 (H) 3.4 - 9.6 01/31/2019 FB60 x10(9)/L 10:34 AM ATMOSPHERIC PHYSICIST Neutrophils 8.92 (H) 1.56 - 01/31/2019 FB60 6.45 10:34 AM ATMOSPHERIC PHYSICIST x10(9)/L Lymphocytes 1.67 0.95 - 01/31/2019 FB60 3.07 10:34 AM ATMOSPHERIC PHYSICIST x10(9)/L Monocytes 0.63 0.26 - 01/31/2019 FB60 0.81 10:34 AM ATMOSPHERIC PHYSICIST x10(9)/L Eosinophils 0.07 0.03 - 01/31/2019 FB60 0.48 10:34 AM ATMOSPHERIC PHYSICIST x10(9)/L Basophils 0.01 0.01 - 01/31/2019 FB60 0.08 10:34 AM ATMOSPHERIC PHYSICIST x10(9)/L Specimen Anatomical Collection Method Collection Time Receive d Time (Source) Location / / Volume Laterality Blood (Blood, 01/31/2019 10:19 01/31/2019 Venous) AM ATMOSPHERIC PHYSICIST 10:19 AM ATMOSPHERIC PHYSICIST Joy Lee M.D. LAB BLOOD ADD-ON Performing Organization Address City/State/ZIP Code Phon e Number [address] [place] [address] [place] [facility] [address] [place] [address] System in [address] ABORh, RBC (01/31/2019 10:19 AM ATMOSPHERIC PHYSICIST) P athologist Signature ABO Group A 02/01/2019 10:45 AUST AM ATMOSPHERIC PHYSICIST Rh Type NEG 02/01/2019 10:45 AUST AM ATMOSPHERIC PHYSICIST Specimen Anatomical Collection Method Collection Time Receive d Time (Source) Location / / Volume Laterality Blood (Blood, 01/31/2019 10:19 01/31/2019 3:42 Venous) AM ATMOSPHERIC PHYSICIST PM ATMOSPHERIC PHYSICIST Joy Lee M.D. LAB BLOOD BANK TEST ORDERABL ES Performing Organization Address City/State/ZIP Code Phon e Number [facility]- [address] [place] [address] [place] [facility] AUST [facility] [place], [place] [phone] [place] [address] (ABNORMAL) Antibody Screen, RBC (with reflex Antibody ID) (01/31/2019 10:19 AM ATMOSPHERIC PHYSICIST) P athologist Signature Antibody POS (A) 02/01/2019 AUST Screen 10:45 AM ATMOSPHERIC PHYSICIST Specimen Anatomical Collection Method Collection Time Receive d Time (Source) Location / / Volume Laterality Blood (Blood, 01/31/2019 10:19 01/31/2019 3:42 Venous) AM ATMOSPHERIC PHYSICIST PM ATMOSPHERIC PHYSICIST Joy Lee M.D. LAB BLOOD BANK TEST ORDERABL ES Performing Organization Address City/State/ZIP Code Phon e Number [facility]- [address] [place] [address] [place] [facility] [place] [address] [facility] [address] documented in this encounter Visit Diagnoses Diagnosis Examination Other Normal Pregna ncy First Trimester (HCC) documented in this encounter Additional Health Concerns Assessment Noted Time PHQ-9 Depression Total Score: 15 09/28/2017 3:51 PM CD T documented as of this encounter Care Teams Sandblasting Supervisor Relationship Specialty Start Date End Date Marisel Ferrer M.D. PCP - General Family Medicine 07/11/18 [address] [phone] documented as of this encounter
--- OUTSIDE RECORDS SUMMARY | 2021-12-08 16:54 | XMS_ITS | Encounter Summary ---
:1985 Author Organization [facility] Address [address] [place] [address] Care Team Providers Name Role Phone Marisel Ferrer M.D. Primary Care Provider [phone] Encounter Details Date Type Department Care Team Description 2019 E-Visit Express Care Online Emilee Lundberg RE : E-Visit Submission: Services in [place] rajinder Canela R.N. COVID-19 (Coronavirus) [address] [facility] 200 [facility] [place] [address] [phone] Social History Tobacco Use Types Packs/Day Years [...] often do you attend jehovah's witness or tenriism Never 01/31/2019 services? 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/2018 2:20 PM GREASE MAKER HEAD documented as of this encounter Plan of Treatment Not on filedocumented as of this encounter Visit Diagnoses Diagnosis Infection Upper Respiratory Viral - Prim joanna documented in this encounter Additional Health Concerns Assessment Noted Time PHQ-9 Depression Total Score: 15 09/28/2017 3:51 PM CD T documented as of this encounter Care Teams Mucker Operator Relationship Specialty Start Date End Date Marisel Ferrer M.D. PCP - General Family Medicine 07/11/18 03/24/[address] [address] documented as of this encounter
--- OUTSIDE RECORDS SUMMARY | 2021-12-08 16:55 | XMS_ITS | Encounter Summary ---
:1985 Author Organization [facility] Address [address] [place] [address] Care Team Providers Name Role Phone Kandi Alberts APRN C.N.P. Primary Care Provider [phone] Reason for Referral Outpatient (Routine) - Closed Specialty Diagnoses / Procedures Referred By Contact Refer red To Contact Pain Medicine Diagnoses [facility] FL Lumbar Spine Transforaminal Epidural Injection Left NV INJ ANES FORAMEN EPI LUMB SNGL HC INJ ANES FORAMEN EPI LUMB SNGL NV INJ ANES FORAMEN EPI LUMB SNGL M.D. [address] [place] [address] Referral ID Status Reason Start Date Expiration Date Visits Requ ested Visits Authorized [id number] Closed 03/27/2018 03/27/2019 1 1 ICIAN INTERVENTIONAL CARDIOLOGIST Reason for Visit Outpatient (Routine) - Closed Specialty Diagnoses / Procedures Referred By Contact Refer red To Contact Pain Medicine Diagnoses Radiculopathy Lumbar [facility] Procedures FL Lumbar Spine Transforaminal Epidural Injection Left NV INJ ANES FORAMEN EPI LUMB SNGL HC INJ ANES FORAMEN EPI LUMB SNGL NV INJ ANES FORAMEN EPI LUMB SNGL M.D. [address] [place] [address] Referral ID Status Reason Start Date Expiration Date Visits Requ ested Visits Authorized [id number] Closed 03/27/2018 03/27/2019 1 1 Encounter Details Date Type Department Care Team Description 04/17/2018 Hospital Encounter Division of Pain Bibi, [place] ulopathy Lumbar Medicine in Matthias Higgins M.D. [place], [place] [address] [facility] [address] [place] [phone] Social History Tobacco Use Types Packs/Day Years [...] How often do you attend amish or sikhism Never 01/31/2019 services? 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/2018 2:20 PM PHYSICIAN INTERVENTIONAL CARDIOLOGIST documented as of this encounter Last Filed Vital Signs Vital Sign Reading Time Taken Comments Blood Pressure 118/94 04/17/2018 1:25 PM PHYSICIAN INTERVENTIONAL CARDIOLOGIST Pulse 100 04/17/2018 1:25 PM PHYSICIAN INTERVENTIONAL CARDIOLOGIST Temperature 36.9 ??C (98.4 ??F) 04/17/2018 12:42 PM PHYSICIAN INTERVENTIONAL CARDIOLOGIST Respiratory Rate - - Oxygen Saturation 98% 04/17/2018 1:25 PM PHYSICIAN INTERVENTIONAL CARDIOLOGIST Inhaled Oxygen Concentration - - Weight - [...] decision maker.: Consent for transfusion was obtained Snover protocol: All relevant documentation and testing were [...] for the procedure: yes Site preparation: Chlorhexidine ICIAN INTERVENTIONAL CARDIOLOGIST documented in this encounter Plan of Treatment Not on filedocumented as of this encounter Procedures Procedure Name Priority Date/Time Associated Comments Diagnosis FL LUMBAR SPINE RAD - Routine 04/17/2018 1:22 Radiculopathy Results for TRANSFORAMINAL (most inpatients PM PHYSICIAN INTERVENTIONAL CARDIOLOGIST Lumbar this proc edure EPIDURAL INJECTION and all are in th e LEFT outpatients) results section. documented in this encounter Results FL LUMBAR SPINE TRANSFORAMINAL EPIDURAL INJECTION LEFT (04/17/2018 1:22 PM PHYSICIAN INTERVENTIONAL CARDIOLOGIST) Specimen (Source) Anatomical Location Collection Method / Collectio n Time Received Time / Laterality Volume Narrative Darwin Pisano M.D. - 04/17/2018 1:10 PM PHYSICIAN INTERVENTIONAL CARDIOLOGIST Darwin Pisano M.D. ? 04/17/2018 ??1:30 PM [...] decision maker.: ??Consent for transfusion was obtained Snover protocol: ??All relevant documentation and testin g [...] injection 10 mg Given 04/17/2018 1:10 PM PHYSICIAN INTERVENTIONAL CARDIOLOGIST 10 mg (DECADRON) 10 mg, injection, One-Time Injection, Starting on Sun04/17/18 at 1310, For 1 dose iohexol 300 mg iodine/mL solution 1 mL Given 04/17/2018 1:10 PM PHYSICIAN INTERVENTIONAL CARDIOLOGIST 1 mL (OMNIPAQUE) 1 mL, injection, One-Time Injection, Starting on Sun04/17/18 at 1310, For 1 dose lidocaine 10 mg/mL (1 %) injection 5 mL Given 04/17/2018 1:10 PM PHYSICIAN INTERVENTIONAL CARDIOLOGIST 5 mL (XYLOCAINE) 5 mL, injection, One-Time Injection, Starting on Sun04/17/18 at 1310, For 1 dose lidocaine 20 mg/mL injection 1 mL (XYLOC NEL) Given 04/17/2018 1:10 PM PHYSICIAN INTERVENTIONAL CARDIOLOGIST 1 mL 1 mL, injection, One-Time Injection, Starting on Sun04/17/18 at 1310, For 1 dose documented in this encounter Additional Health Concerns Assessment Noted Time PHQ-9 Depression Total Score: 15 09/28/2017 3:51 PM CD T documented as of this encounter Care Teams Cancer Program Coordinator Relationship Specialty Start Date End Date Kandi Alberts, TATY, C.N.P. PCP - General 07/27/16 07/10/18 [address] [address] documented as of this encounter
--- OUTSIDE RECORDS SUMMARY | 2021-12-08 16:55 | XMS_ITS | Encounter Summary ---
:1985 Author Organization [facility] Address [address] [place] [address] Care Team Providers Name Role Phone Kandi Alberts APRN C.NGordonPGordon Primary Care Provider [phone] Encounter Details Date Type Department Care Team Description 04/17/2018 Comprehensive Visit Division of Pain Rachel Yao Ra diculopathy Lumbar (Primary Dx); Medicine in J, PGordonARuizC., Pain Low Back C [facility] [address] [facility] [address] [place] [phone] [phone] Social History Tobacco Use Types Packs/Day Years [...] How often do you attend sabianism or yazdanism Never 01/31/2019 services? 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/2018 2:20 PM PLANNING CONSULTANT documented as of this encounter Last Filed Vital Signs Vital Sign Reading Time Taken Comments Blood Pressure 128/81 04/17/2018 11:21 AM PLANNING CONSULTANT Pulse 102 04/17/2018 11:21 AM PLANNING CONSULTANT Temperature - - Respiratory Rate - - [...] Low Back Chronic PLAN 1. Intervention: Ms. Odnonell is being referred today for consideration of [...] plan; patient expressed understanding of the content. NING CONSULTANT documented in this encounter Plan of Treatment Not on filedocumented as of this encounter Visit Diagnoses Diagnosis Radiculopathy Lumbar - Primary Pain Low Back Chronic documented in this encounter Additional Health Concerns Assessment Noted Time PHQ-9 Depression Total Score: 15 09/28/2017 3:51 PM CD T documented as of this encounter Care Teams Helpdesk Technician Relationship Specialty Start Date End Date Kandi Alberts, TATY, C.N.P. PCP - General 07/27/16 07/10/[address] [phone] documented as of this encounter
--- OUTSIDE RECORDS SUMMARY | 2021-12-08 16:55 | XMS_ITS | Encounter Summary ---
:1985 Author Organization [facility] Address [address] [place] [address] Care Team Providers Name Role Phone Kandi Alberts APRN, C.N.P. Primary Care Provider [phone] Encounter Details Date Type Department Care Team Description 03/27/2018 Hospital Encounter Department of Aster [facility]rea Laboratory Laboratory Medicine TATY Romano, COLD HEADER OPERATOR, Results and Pathology, [facility] in [address] [place] [address] [place] [address] [place], [place] [phone] (Work) [phone] Social History Tobacco Use Types Packs/Day Years [...] How often do you attend evangelical or mormon Never 01/31/2019 services? Do you [...] Recorded Female 01/11/2018 2:20 PM CLIENT SERVICES COORDINATOR documented as of this encounter Medications [...] PM Abnormal Labo ratory Results for this CLIENT SERVICES COORDINATOR Results procedure are i n the results section. CBC WITH DIFFERENTIAL, Routine 03/27/2018 1:16 PM Abnormal Lab oratory Results for this B CLIENT SERVICES COORDINATOR Results procedure are i n the results section. C-REACTIVE PROTEIN Routine 03/27/2018 1:16 PM Abnormal Laborat ory Results for this (CRP), S/P CLIENT SERVICES COORDINATOR Results procedure are i n the results section. documented in this encounter Results CRP (C-Reactive Protein) (03/27/2018 1:16 PM CLIENT SERVICES COORDINATOR) P athologist Signature C-Reactive <3.0 <=8.0 mg/L 03/27/2018 [facility] Protein (CRP), 2:23 PM CLIENT SERVICES COORDINATOR LABORATORIES - [facility] Specimen Anatomical Collection Method Collection Time Receive d Time (Source) Location / / Volume Laterality Blood (Blood, 03/27/2018 1:16 PM 03/27/19 19 1:38 Venous) CLIENT SERVICES COORDINATOR PM CLIENT SERVICES COORDINATOR DAVID Joseph APRN, M.S. LAB BLOOD ADD-ON Performing Organization Address City/[facility] Code Phon e Number [facility] LABORATORIES - [address] Sedimentation Rate (03/27/2018 1:16 PM CLIENT SERVICES COORDINATOR) [facility] Method Time Signature Sedimentation 5 0 - 29 03/27/2018 [facility] Rate, B mm/1 h 3:59 PM CLIENT SERVICES COORDINATOR LABORATORIES - [facility] Specimen Anatomical Collection Method Collection Time Receive d Time (Source) Location / / Volume Laterality Blood (Blood, 03/27/2018 1:16 PM 03/27/19 19 1:37 Venous) CLIENT SERVICES COORDINATOR PM CLIENT SERVICES COORDINATOR DAVID Joseph APRN, M.S. LAB BLOOD ADD-ON Performing Organization Address City/[facility] Phon e Number [facility] - [address] [place] [phone] 05 [facility] (ABNORMAL) CBC with Differential, Blood (03/27/2018 1:16 PM CLIENT SERVICES COORDINATOR) [facility] Method Time Signature Hemoglobin 12.8 11.6 - 03/27/2018 [facility] 15.0 g/dL 1:46 PM CLIENT SERVICES COORDINATOR LABORATORIES - [facility] Hematocrit 38.6 35.5 - 03/27/2018 [facility] 44.9 % 1:46 PM CLIENT SERVICES COORDINATOR LABORATORIES - [facility] Erythrocytes 4.45 3.92 - 03/27/2018 [facility] 5.13 1:46 PM CLIENT SERVICES COORDINATOR LABORATORIES - x10(12)/L [facility] MCV 86.7 78.2 - 03/27/2018 [facility] 97.9 fL 1:46 PM CLIENT SERVICES COORDINATOR LABORATORIES - [facility] RBC Distrib 12.1 (L) 12.2 - 03/27/2018 [facility] Width 16.1 % 1:46 PM CLIENT SERVICES COORDINATOR LAB[facility]ATORIES - [facility] Platelet Count 222 157 - 371 03/27/2018 [facility] x10(9)/L 1:46 PM CLIENT SERVICES COORDINATOR LABORATORIES - [facility] Leukocytes 6.6 3.4 - 9.6 03/27/2018 [facility] x10(9)/L 1:46 PM CLIENT SERVICES COORDINATOR LABORATORIES - [facility] Neutrophils 4.16 1.56 - 03/27/2018 [facility] 6.45 1:46 PM CLIENT SERVICES COORDINATOR LABORATORIES - x10(9)/L [facility] Lymphocytes 1.92 0.95 - 03/27/2018 [facility] 3.07 1:46 PM CLIENT SERVICES COORDINATOR LABORATORIES - x10(9)/L [facility] Monocytes 0.39 0.26 - 03/27/2018 [facility] 0.81 1:46 PM CLIENT SERVICES COORDINATOR LABORATORIES - x10(9)/L [facility] Eosinophils 0.08 0.03 - 03/27/2018 [facility] 0.48 1:46 PM CLIENT SERVICES COORDINATOR LABORATORIES - x10(9)/L [facility] Basophils 0.03 0.01 - 03/27/2018 [facility] 0.08 1:46 PM CLIENT SERVICES COORDINATOR LABORATORIES - x10(9)/L [facility] Specimen Anatomical Collection Method Collection Time Receive d Time (Source) Location / / Volume Laterality Blood (Blood, 03/27/2018 1:16 PM 03/27/19 19 1:37 Venous) CLIENT SERVICES COORDINATOR PM CLIENT SERVICES COORDINATOR Aster Correa APRN, COLD HEADER OPERATOR, M.S. LAB BLOOD ADD-ON Performing Organization Address City/State/ZIP Code Phon e Number [facility] - [address] [place] [address] [facility] documented in this encounter Visit Diagnoses Diagnosis Abnormal Laboratory Results documented in this encounter Additional Health Concerns Assessment Noted Time PHQ-9 Depression Total Score: 15 09/28/2017 3:51 PM CD T documented as of this encounter Care Teams Business Process Specialist Relationship Specialty Start Date End Date Kandi Alberts APRN, C.N.P. PCP - General 07/27/16 07/10/[address] [phone] documented as of this encounter
--- OUTSIDE RECORDS SUMMARY | 2021-12-08 16:55 | XMS_ITS | Encounter Summary ---
:1985 Author Organization [facility] Address [address] [place] [address] Care Team Providers Name Role Phone Kandi Alberts APRN, C.N.P. Primary Care Provider [phone] Reason for Visit Reason Comments Lesion bumps under both eyes and ge tting worse Appointment Request (Routine) - Closed Specialty Diagnoses / Procedures Referred By Contact Refer red To Contact Family Medicine Referral ID Status Reason Start Date Expiration Date Visits Requ ested Visits Authorized [id number] Closed 05/16/2018 05/16/2019 1 Encounter Details Date Type Department Care Team Description 05/31/2018 Comprehensive Visit Department of Elsi Resendiz, [place] aged Skin (Primary Dx); Dermatology in [place] C.N.PGordon, Rosacea; [place], [place] M.S.N. Acne [address] [place], [place] [address] [place], [place] [phone] [address] Social History Tobacco Use Types Packs/Day [...] often do you attend oriental orthodox or buddhist Never 01/31/2019 services? 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/2018 2:20 PM CHIEF RADIOLOGIC TECHNOLOGIST documented as of this encounter Progress Notes [...] documented as of this encounter Care Teams Heel Sander Rubber Relationship Specialty Start Date End Date Kandi Alberts APRN, C.N.P. PCP - General 07/27/16 07/10/[address] [address] documented as of this encounter
--- OUTSIDE RECORDS SUMMARY | 2021-12-08 16:55 | XMS_ITS | Encounter Summary ---
:1985 Author Organization [facility] Address [address] [place] [address] Care Team Providers Name Role Phone Kandi Alberts APRN C.NGordonPGordon Primary Care Provider Encounter Details Date Type Department Care Team Description 01/25/2018 Documentation Department of Orthopedic Matthias Mtz, [facility] [place] [address] [address] [facility] [address] [place] [address] [phone] (Wo rk) Social History Tobacco Use Types [...] How often do you attend gnosticism or church Never 01/31/2019 services? 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/2018 2:20 PM DIGITAL SALES MANAGER documented as of this encounter Progress [...] acute radiculitis/sciatica 3. Consider left S1 TF-RITA TAL SALES MANAGER documented in this encounter Plan of Treatment Not on filedocumented as of this encounter Visit Diagnoses Not on filedocumented in this encounter Additional Health Concerns Assessment Noted Time PHQ-9 Depression Total Score: 15 09/28/2017 3:51 PM CD T documented as of this encounter Care Teams Party Plan Sales Host/Hostess Relationship Specialty Start Date End Date Kandi Alberts, TATY, C.N.P. PCP - General 07/27/16 07/10/18 [address], [place] [address] documented as of this encounter
--- OUTSIDE RECORDS SUMMARY | 2021-12-08 16:55 | XMS_ITS | Encounter Summary ---
:1985 Author Organization [facility] Address [address] [place] [address] Care Team Providers Name Role Phone Kandi Alberts APRN, C.N.P. Primary Care Provider [phone] Reason for Referral Physical Therapy (Routine) - Closed Specialty Diagnoses / Procedures Referred By Contact Refer red To Contact Diagnoses Pain Leg Pain Low Back Chronic Iliotibial Band Syndrome Left Gurmeet Moreno D.O., M.P.H. [address] [place] [address] Referral ID Status Reason Start Date Expiration Visits Visits Date Requested Authorized [id number] Closed Patient 06/03/2018 06/03/2019 1 1 Preference Reason for Visit Outpatient (Routine) - Closed Specialty Diagnoses / Procedures Referred By Contact Refer red To Contact Pain Medicine Diagnoses Pain Leg Aster Correa APRN, [facility], [facility] [address] [place], [place] [address] Referral ID Status Reason Start Date Expiration Date Visits V isits Requested Authorized [id number] Closed Specialty 2018 2019 1 1 Services Required Encounter Details Date Type Department Care Team Description 06/03/2018 Comprehensive Visit Division of Pain Tiffanie, Pain Low Back Chronic (Primary Dx); Medicine in Gurmeet Hickman, Pain Leg; Jami Tatum, M.P.H. Postlaminectomy Syndrome; [place] [address] Iliotibial Band Syndrome Left [address] [place] [address] [phone] Social History Tobacco Use Types Packs/Day Years [...] 11/27/2019 relatives? How often do you attend yarsanism or latter-day Never 01/31/2019 services? Do you belong to any clubs or organizations such as No 01/31/2019 yarsanism groups, unions, fraternal or athletic groups, or [...] at Date Recorded Female 01/11/2018 2:20 PM RECONSTRUCTIVE DENTIST documented as of this encounter Consult Notes [...] trialed conservative therapies including physical therapy, acupuncture, janitor caretaker, as well as a recent L5 transforaminal [...] History: Diagnosis Date ??? Alcoholism Personal History ([facility]) [id number] ??? Dependence Alcohol ([facility]) ??? 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 Suicide Attempt Personal History overdose Review [...] documented as of this encounter Care Teams Aml Analyst Relationship Specialty Start Date End Date Kandi Alberts, TATY, C.N.P. PCP - General 07/27/16 07/10/[address] [address] documented as of this encounter
--- OUTSIDE RECORDS SUMMARY | 2021-12-08 16:55 | XMS_ITS | Encounter Summary ---
:1985 Author Organization [facility] Address [address] [place] [address] Care Team Providers Name Role Phone Kandi Alberts APRN C.N.PGordon Primary Care Provider [phone] Encounter Details Date Type Department Care Team Description 03/27/2018 Hospital Encounter Department of Javi, Pain Low Back Chronic; Radiology, Olu Doll on Disc Lumbar; Building, in Other Intervert ebral Disc Displacement Lumbar Region [place], [place] [address] [place] [address] Social History Tobacco Use Types Packs/Day Years [...] How often do you attend restorationist or hoahaoism Never 01/31/2019 services? 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/2018 2:20 PM PRINCIPAL ARCHAEOLOGIST documented as of this encounter Medications at [...] Results for 2-3 VIEWS (most inpatients PM PRINCIPAL ARCHAEOLOGIST Degeneration Disc this p rocedure and all Lumbar are in the outpatients) Other Intervertebral results Disc Displacement section. Lumbar Region documented in this encounter Results DX Lumbar Spine 2-3 Views (03/27/2018 1:40 PM PRINCIPAL ARCHAEOLOGIST) Anatomical Region Laterality Modality Lumbar Spine, Musculoskeletal RST LOS, Neuroradiology N/A Digital Radiography ARZ LOS, Muskuloskeletal FLA LOS Specimen (Source) Anatomical Collection Method Collection Time Re ceived Time Location / / Volume Laterality 03/27/2018 1:46 PM PRINCIPAL ARCHAEOLOGIST Impressions 03/27/2018 1:48 PM PRINCIPAL ARCHAEOLOGIST IMPRESSION: ??Partial L5-S1 laminectomy on the left. Narrowed lumbosacral interspace with facet arthritis. Mild de generative change left hip with some prominence at the femoral head/neck offs et. Narrative 03/27/2018 1:48 PM PRINCIPAL ARCHAEOLOGIST EXAM: ??DX LUMBAR SPINE 2-3 VIEWS Procedure [...] documented as of this encounter Care Teams Pbx Manager Relationship Specialty Start Date End Date Kandi Alberts, TATY, C.N.P. PCP - General 07/27/16 07/10/18 [address] [place] [address] documented as of this encounter
--- OUTSIDE RECORDS SUMMARY | 2021-12-08 16:55 | XMS_ITS | Encounter Summary ---
:1985 Author Organization [facility] Address [address] [place] [address] Care Team Providers Name Role Phone Kandi Alberts APRN C.N.P. Primary Care Provider [phone] Encounter Details Date Type Department Care Team Description 03/01/2018 Orders Only Department of Aster Correa Abnormal La boratory Orthopedic Surgery in DAVID POSEY, M.S. Results (Primary Dx) [place], [place] [address] [facility] [address] [place] [address] [phone] Social History Tobacco Use Types Packs/Day Years [...] How often do you attend scientologist or nondenominational Never 01/31/2019 services? 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/2018 2:20 PM SENSITIZER documented as of this encounter Plan of Treatment Not on filedocumented as of this encounter Results CRP (C-Reactive Protein) (03/27/2018 1:16 PM SENSITIZER) P athologist Signature C-Reactive <3.0 <=8.0 mg/L 03/27/2018 [facility] Protein (CRP), 2:23 PM SENSITIZER LABORATORIES - S [facility] Specimen Anatomical Collection Method Collection Time Receive d Time (Source) Location / / Volume Laterality Blood (Blood, 03/27/2018 1:16 PM 03/27/19 19 1:38 Venous) SENSITIZER PM SENSITIZER DAVID Joseph APRN, M.S. LAB BLOOD ADD-ON Performing Organization Address City/[facility] Code Phon e Number [facility] LABORATORIES - [address] [place] [address] 05 [facility] Sedimentation Rate (03/27/2018 1:16 PM SENSITIZER) [facility] Method Time Signature Sedimentation 5 0 - 29 03/27/2018 [facility] Rate, B mm/1 h 3:59 PM SENSITIZER LABORATORIES - [facility] Specimen Anatomical Collection Method Collection Time Receive d Time (Source) Location / / Volume Laterality Blood (Blood, 03/27/2018 1:16 PM 03/27/19 19 1:37 Venous) SENSITIZER PM SENSITIZER DAVID Joseph APRN, M.S. LAB BLOOD ADD-ON Performing Organization Address City/State/[facility] Phon e Number [facility] LABORATORIES - [address] [place] [address] [facility] (ABNORMAL) CBC with Differential, Blood (03/27/2018 1:16 PM SENSITIZER) [facility] gist Method Time Signature Hemoglobin 12.8 11.6 - 03/27/2018 [facility] 15.0 g/dL 1:46 PM SENSITIZER LAB[facility]ATORIES - [facility] Hematocrit 38.6 35.5 - 03/27/2018 [facility] 44.9 % 1:46 PM SENSITIZER LABORATORIES - [facility] Erythrocytes 4.45 3.92 - 03/27/2018 [facility] 5.13 1:46 PM SENSITIZER LABORATORIES - x10(12)/L [facility] MCV 86.7 78.2 - 03/27/2018 [facility] 97.9 fL 1:46 PM SENS[facility]IZER [facility] - [facility] RBC Distrib 12.1 (L) 12.2 - 03/27/2018 [facility] Width 16.1 % 1:46 PM SENSITIZER LAB[facility] - [facility] Platelet Count 222 157 - 371 03/27/2018 [facility] x10(9)/L 1:46 PM SENSITIZER LAB[facility]ATORIES - [facility] Leukocytes 6.6 3.4 - 9.6 03/27/2018 [facility] x10(9)/L 1:46 PM SENSITIZ[facility] - [facility] Neutrophils 4.16 1.56 - 03/27/2018 [facility] 6.45 1:46 PM SENSITIZER LABORATORIES - x10(9)/L [facility] Lymphocytes 1.92 0.95 - 03/27/2018 [facility] 3.07 1:46 PM SENSITIZER LABORATORIES - x10(9)/L [facility] Monocytes 0.39 0.26 - 03/27/2018 [facility] 0.81 1:46 PM SENSITIZER LABORATORIES - x10(9)/L [facility] Eosinophils 0.08 0.03 - 03/27/2018 [facility] 0.48 1:46 PM SENSITIZER LABORATORIES - x10(9)/L [facility] Basophils 0.03 0.01 - 03/27/2018 [facility] 0.08 1:46 PM SENSITIZER LABORATORIES - x10(9)/L [facility] Specimen Anatomical Collection Method Collection Time Receive d Time (Source) Location / / Volume Laterality Blood (Blood, 03/27/2018 1:16 PM 03/27/19 19 1:37 Venous) SENSITIZER PM SENSITIZER Aster Correa APRN, CHARGE ACCOUNT AUTHORIZER, M.S. LAB BLOOD ADD-ON Performing Organization Address City/State/ZIP Code Phon e Number [facility] LABORATORIES - [address] [place], [place] [address] [facility] documented in this encounter Visit Diagnoses Diagnosis Abnormal Laboratory Results - Primary documented in this encounter Additional Health Concerns Assessment Noted Time PHQ-9 Depression Total Score: 15 09/28/2017 3:51 PM CD T documented as of this encounter Care Teams Vehicle Refinisher Relationship Specialty Start Date End Date Kandi Alberts APRN, C.N.P. PCP - General 07/27/16 07/10/[address] [address] documented as of this encounter
--- OUTSIDE RECORDS SUMMARY | 2021-12-08 16:55 | XMS_ITS | Encounter Summary ---
:1985 Author Organization [facility] Address [address] [place] [address] Care Team Providers Name Role Phone Kandi Alberts APRN C.N.P. Primary Care Provider [phone] Encounter Details Date Type Department Care Team Description 02/26/2018 Orders Only Hospital Outpatient Ginger Diaz, Procedure Center in [place], [place] [address] [facility] [address] [place] [phone] (Wo rk) Social History Tobacco Use Types [...] How often do you attend buddhist or restorationist Never 01/31/2019 services? Do you [...] Date Recorded Female 01/11/2018 2:20 PM MANAGER ACCESS documented as of this encounter Plan of Treatment Not on filedocumented as of this encounter Visit Diagnoses Not on filedocumented in this encounter Additional Health Concerns Assessment Noted Time PHQ-9 Depression Total Score: 15 09/28/2017 3:51 PM CD T documented as of this encounter Care Teams Safety Lamp Keeper Relationship Specialty Start Date End Date Kandi Alberts, TATY, C.N.P. PCP - General 07/27/16 07/10/[address] [address] documented as of this encounter
--- OUTSIDE RECORDS SUMMARY | 2021-12-08 16:55 | XMS_ITS | Encounter Summary ---
:1985 Author Organization [facility] Address [address] [place] [address] Care Team Providers Name Role Phone Kandi Alberts APRN C.N.PGordon Primary Care Provider [phone] Reason for Referral Outpatient (Routine) - Closed Specialty Diagnoses / Procedures Referred By Contact Refer july To Contact Pain Medicine Diagnoses [facility] Procedures FL Lumbar Spine Transforaminal Epidural Injection Left [place] INJ ANES FORAMEN EPI LUMB SNGL HC INJ ANES FORAMEN EPI LUMB SNGL [place] INJ ANES FORAMEN EPI LUMB SNGL M.D. [address] [place] [address] Referral ID Status Reason Start Date Expiration Date Visits Requ ested Visits Authorized [id number] Closed 03/27/2018 03/27/2019 1 1 VIORAL HEALTH CARE COORDINATOR Reason for Visit Outpatient (Routine) - Closed Specialty Diagnoses / Procedures Referred By Contact Refer july To Contact Orthopedic Surgery Bridger Caldwell M .D. [facility] [address] [place] [address] Referral ID Status Reason Start Date Expiration Date Visits Requ ested Visits Authorized [id number] Closed 01/07/2018 01/07/2019 1 1 Encounter Details Date Type Department Care Team Description 03/27/2018 Office Visit Department of Bri Mtz Radijacksonlopat hy Lumbar Orthopedic Surgery fazal Higgins M.D. (Primary Dx) [place], [place] [address] [place] [address] [place] [address] [phone] Social History Tobacco Use Types Packs/Day Years [...] How often do you attend uatsdin or moravian Never 01/31/2019 services? Do you belong to any clubs or organizations such as 01/31/2019 uatsdin groups, unions, fraternal or athletic [...] at Date Recorded Female 01/11/2018 2:20 PM BEHAVIORAL HEALTH CARE COORDINATOR documented as of this encounter Progress Notes [...] IMAGING: XR LSP: 03/27/18 and MRI c Chritsiano LSP. X-rays unremarkable. There is no instability. [...] and/or coordination of care as described above. VIORAL HEALTH CARE COORDINATOR documented in this encounter Plan of Treatment Not on filedocumented as of this encounter Results FL LUMBAR SPINE TRANSFORAMINAL EPIDURAL INJECTION LEFT (04/17/2018 1:22 PM BEHAVIORAL HEALTH CARE COORDINATOR) Specimen (Source) Anatomical Location Collection Method / Collectio n Time Received Time / Laterality Volume Narrative Donavan Pisano M.D. - 04/17/2018 1:10 PM BEHAVIORAL HEALTH CARE COORDINATOR Donavan Pisano M.D. ? 04/17/2018 ??1:30 PM [...] decision maker.: ??Consent for transfusion was obtained Glade protocol: ??All relevant documentation and testin g [...] as of this encounter Care Teams Network Firewall Engineer Relationship Specialty Start Date End Date Kandi Alberts, TATY, C.N.P. PCP - General 07/27/16 07/10/[address] [address] documented as of this encounter
--- OUTSIDE RECORDS SUMMARY | 2021-12-08 16:55 | XMS_ITS | Encounter Summary ---
:1985 Author Organization [facility] Address [address] [place] [address] Care Team Providers Name Role Phone Kandi Alberts APRN C.N.P. Primary Care Provider [phone] Encounter Details Date Type Department Care Team Description 01/30/2018 Orders Only Hospital Outpatient Ginger Diaz, Procedure Center in [place], [place] [address] [facility] [address] [place] [address] [phone] (Wo rk) Social History Tobacco Use Types [...] 11/27/2019 relatives? How often do you attend jain or latter day Never 01/31/2019 services? Do you belong to any clubs or organizations such as No 01/31/2019 jain groups, unions, fraternal or athletic groups, or [...] at Date Recorded Female 01/11/2018 2:20 PM TUBE FORMER OPERATOR documented as of this encounter Plan of Treatment Not on filedocumented as of this encounter Visit Diagnoses Not on filedocumented in this encounter Additional Health Concerns Assessment Noted Time PHQ-9 Depression Total Score: 15 09/28/2017 3:51 PM CD T documented as of this encounter Care Teams Branch Manager Trainee Relationship Specialty Start Date End Date Kandi Alberts, TATY, C.N.P. PCP - General 07/27/16 07/10/[address] [address] documented as of this encounter
--- OUTSIDE RECORDS SUMMARY | 2021-12-08 16:55 | XMS_ITS | Encounter Summary ---
:1985 Author Organization [facility] Address [address] [place] [address] Care Team Providers Name Role Phone Kandi Alberts APRN C.NGordonPGordon Primary Care Provider [phone] Reason for Referral MRI/CAT/PET Scan (Routine) - Closed Specialty Diagnoses / Procedures Referred By Contact Refer red To Contact Radiology Diagnoses Radiculopathy Lumbar Matthias Mtz M.D. [place] Procedures MR Lumbar Spine without and with IV Contrast NV MRI LUMB SPINE WO/W CNTRST HC MRI LUMB SPINE WO/W CNTRST NV MRI LUMB SPINE WO/W CNTRST [address] [place] [address] Referral ID Status Reason Start Date Expiration Date Visits Requ ested Visits Authorized [id number] Closed 01/16/2018 01/16/2019 1 1 ONAL FITNESS TRAINER Reason for Visit MRI/CAT/PET Scan (Routine) - Closed Specialty Diagnoses / Procedures Referred By Contact Refer red To Contact Radiology Diagnoses Radiculopathy Lumbar Matthias Mtz M.D. [place] Procedures MR Lumbar Spine without and with IV Contrast NV MRI LUMB SPINE WO/W CNTRST HC MRI LUMB SPINE WO/W CNTRST NV MRI LUMB SPINE WO/W CNTRST [address] [place], [place] [address] Referral ID Status Reason Start Date Expiration Date Visits Requ ested Visits Authorized [id number] Closed 01/16/2018 01/16/2019 1 1 Encounter Details Date Type Department Care Team Description 01/23/2018 Hospital Encounter Department of Katy Mtzculo blanca Lumbar Radiology, Teresa Pillai, in [place], [facility] [address] [place], [place] [address] [facility] [address] [place], [place] [phone] [address] (Work) [phone] Social History Tobacco Use Types Packs/Day Years [...] How often do you attend druze or adventism Never 01/31/2019 services? 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/2018 2:20 PM PERSONAL FITNESS TRAINER documented as of this encounter Medications at [...] this WITHOUT AND WITH (most inpatients PM PERSONAL FITNESS TRAINER procedu re are in IV CONTRAST and all the results outpatients) section. documented in this encounter Results MR Lumbar Spine without and with IV Contrast (01/23/2018 2:59 PM PERSONAL FITNESS TRAINER) Anatomical Region Laterality Modality Lumbar Spine, Neuroradiology RST LOS, Neuroradiology N/A Magnetic Resonance ARZ LOS, Neuroradiology FLA LOS Specimen (Source) Anatomical Collection Method Collection Time Re ceived Time Location / / Volume Laterality 01/23/2018 5:46 PM PERSONAL FITNESS TRAINER Impressions 01/23/2018 6:00 PM PERSONAL FITNESS TRAINER IMPRESSION: 1. Interval left L5-S1 laminotomy. Enhan [...] protrusion at L4-5. Narrative 01/23/2018 6:00 PM PERSONAL FITNESS TRAINER EXAM: MR LUMBAR SPINE WITHOUT AND WITH [...] injection 0.5-15 mL Given 01/23/2018 2:49 PM PERSONAL FITNESS TRAINER 6 mL (GADAVIST) 0.5-15 mL, intravenous, Once in imaging, contrast, Starting on Sun01/23/18 at 1318, For 1 dose, Imaging Protocol Orders, Dose per Radiant Medication Guidelines documented in this encounter Additional Health Concerns Assessment Noted Time PHQ-9 Depression Total Score: 15 09/28/2017 3:51 PM CD T documented as of this encounter Care Teams Supervisor Doping Relationship Specialty Start Date End Date Kandi Alberts, TATY, C.N.P. PCP - General 07/27/16 07/10/[address] [address] documented as of this encounter
--- OUTSIDE RECORDS SUMMARY | 2021-12-08 16:56 | XMS_ITS | Encounter Summary ---
:1985 Author Organization [facility] Address [address] [place] [address] Care Team Providers Name Role Phone Kandi Alberts APRN, C.NGordonPGordon Primary Care Provider [phone] Reason for Referral Outpatient (Routine) - Closed Specialty Diagnoses / Procedures Referred By Contact Refer red To Contact Diagnoses Radiculopathy Lumbar Weakness Leg [facility] Procedures EMG P.A[facility]C. [address] [place], [place] [address] Referral ID Status Reason Start Date Expiration Date Visits Requ ested Visits Authorized [id number] Closed 11/21/2017 11/21/2018 1 1 MRI/CAT/PET Scan (Routine) - Closed Specialty Diagnoses / Procedures Referred By Contact Refer red To Contact Radiology Diagnoses Radiculopathy Lumbar [facility] Procedures MR Lumbar Spine without IV Contrast DE MRI LUMB SPINE WO CNTRST HC MRI LUMB SPINE WO CNTRST P.A.-C. [address] [place], [place] [address] Referral ID Status Reason Start Date Expiration Date Visits Requ ested Visits Authorized [id number] Closed 11/21/2017 11/21/2018 1 1 Reason for Visit Appointment Request (Routine) - Closed Specialty Diagnoses / Procedures Referred By Contact Refer red To Contact Spine Sarthak Anguiano M.D . [address] [place] [address] Referral ID Status Reason Start Date Expiration Date Visits Requ ested Visits Authorized [id number] Closed 07/05/2017 07/05/2018 2 1 Encounter Details Date Type Department Care Team Description 11/21/2017 Comprehensive Visit Department of Benny Radicul opathy Lumbar (Primary Dx); Neurologic Surgery Marisa Chan, [facility] [address] [place] [phone] Social History Tobacco Use Types Packs/Day Years [...] How often do you attend orthodox or hinduism Never 01/31/2019 services? Do you belong to [...] at Date Recorded Female 01/11/2018 2:20 PM RESPIRATORY COORDINATOR documented as of this encounter Last [...] PM CDT Referring Provider: Sarthak Anguiano M.D. [facility], [address] [place] [address] Chief Complaint: back and left leg pain History of Present Illness: Ms. Odonnell is a pleasant 32 y.o. female from [place], [place] who is seen in consultation regarding [...] warm baths. 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 She has also with a chiropractor. [...] ? Final Report Study Number: 1 EMG Pick Up And Delivery Driver: Benson Drew . 127 o r [phone] Referred by: MARISA AMATO (127 or ( [phone]) Referred for: low back and left leg [...] the interpretation. Liliam Jeffery/Mana Drew (127 or [phone])/ [facility] NERVE CONDUCTIONS ?Temperat ure: 30.2 ? ??C [...] Final Repor t Study Number: 1 EMG Pick Up And Delivery Driver: Benson Drew . 127 o r [phone] Referred by: MARISA AMATO (127 or ( [phone]) Referred for: low back and left leg [...] the interpretation. Liliam Jeffery/Mana Drew (127 or [phone])/ [facility] NERVE CONDUCTIONS Temperature: 30.2 ? ??C Record [...] RST LOS, Neuroradiology N/A Magnetic Resonance [facility], Neuroradiology F[facility] Specimen (Source) Anatomical Collection Method Collection [...] spine 03/01/2016. FINDINGS: Allowing for differences in industrial hygiene technician nique and patient position, no significant [...] spine 03/01/2016. FINDINGS: Allowing for differences in industrial hygiene technician nique and patient position, no significant [...] documented as of this encounter Care Teams Child Care Centre Director Relationship Specialty Start Date End Date Kandi Alberts, TATY, C.N.P. PCP - General 07/27/16 07/10/[address] [address] documented as of this encounter
--- OUTSIDE RECORDS SUMMARY | 2021-12-08 16:56 | XMS_ITS | Encounter Summary ---
:1985 Author Organization [facility] Address [address] [place] [address] Care Team Providers Name Role Phone Kandi Alberts APRN CGordonNGordonPGordon Primary Care Provider [phone] Encounter Details Date Type Department Care Team Description 07/06/2017 Orders Only Department of Benny, Radiculopathy Neurologic Surgery in Marisa Chan P.A.-C. Lumbosacral (Primary [place], [place] [address] [facility] Dx) [address] [place] [address] [phone] Social History Tobacco Use Types Packs/Day Years [...] How often do you attend denominational or tenriism Never 01/31/2019 services? 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/2018 2:20 PM ISOTOPE TECHNICIAN documented as of this encounter Plan [...] e. Marisa Zapata P.A.-C. IMG DIAGNOSTIC IMAGING [place] OCEDURES documented in this encounter Visit Diagnoses Diagnosis Radiculopathy Lumbosacral - Primary Radiculopathy Lumbosacral documented in this encounter Additional Health Concerns Assessment Noted Time PHQ-9 Depression Total Score: 9 06/29/2017 11:57 AM CD T documented as of this encounter Care Teams Rag Room Supervisor Relationship Specialty Start Date End Date Kandi Alberts, TATY, C.N.P. PCP - General 07/27/16 07/10/18 [address] [place] [phone] documented as of this encounter
--- OUTSIDE RECORDS SUMMARY | 2021-12-08 16:56 | XMS_ITS | Encounter Summary ---
:1985 Author Organization [facility] Address [address] [place] [address] Care Team Providers Name Role Phone Kandi Alberts APRN CGordonNGordonPGordon Primary Care Provider [phone] Reason for Referral Outpatient (Routine) - Closed Specialty Diagnoses / Procedures Referred By Contact Refer red To Contact Diagnoses Radiculopathy Lumbar Weakness Leg Left Marisa Zapata, [facility] Procedures EMG P.A.-C. [address] [place], [place] [address] Referral ID Status Reason Start Date Expiration Date Visits Requ ested Visits Authorized [id number] Closed 11/21/2017 11/21/2018 1 1 Reason for Visit Outpatient (Routine) - Closed Specialty Diagnoses / Procedures Referred By Contact Refer red To Contact Diagnoses Radiculopathy Lumbar Weakness Leg Left Marisa Zapata, [facility] Procedures EMG P.A.-C. [address] [place], [place] [address] Referral ID Status Reason Start Date Expiration Date Visits Requ ested Visits Authorized [id number] Closed 11/21/2017 11/21/2018 1 1 Encounter Details Date Type Department Care Team Description 11/28/2017 Hospital Encounter Department of Zapata, Radiculo blanca Lumbar; Neurology in Marisa Chan Weakness Leg Le ft Sweetie Tatum [place] [address] [facility] [address] [place] [phone] Social History Tobacco Use Types Packs/Day Years [...] How often do you attend taoism or episcopal Never 01/31/2019 services? Do you belong to [...] at Date Recorded Female 01/11/2018 2:20 PM CATTLE ALLEY WORKER documented as of this encounter Medications at [...] ? Final Report Study Number: 1 EMG Business Writer: Benson Drew . 127 o r [phone] Referred by: MARISA AMATO (127 or ( [phone]) Referred for: low back and left leg [...] the interpretation. Liliam Jeffery/Mana Drew (127 or [phone])/ [facility] NERVE CONDUCTIONS ?Temperat ure: 30.2 ? [...] Final Repor t Study Number: 1 EMG Business Writer: Benson Drew . 127 o r [phone] Referred by: MARISA AMATO (127 or ( [phone]) Referred for: low back and left leg [...] the interpretation. Liliam Jeffery/Mana Drew (127 or [phone])/ [facility] NERVE CONDUCTIONS Temperature: 30.2 ? ??C [...] documented as of this encounter Care Teams Rod Placer Relationship Specialty Start Date End Date Kandi Alberts APRN, C.N.P. PCP - General 07/27/16 07/10/[address] [address] documented as of this encounter
--- OUTSIDE RECORDS SUMMARY | 2021-12-08 16:56 | XMS_ITS | Encounter Summary ---
:1985 Author Organization [facility] Address [address] [place] [address] Care Team Providers Name Role Phone Kandi Alberts APRN C.N.P. Primary Care Provider [phone] Reason for Visit Auth/Cert Specialty Diagnoses / Procedures Referred By Contact Refer red To Contact Diagnoses Extruded Disc Lumbar Procedures [place] LMNOTOMY W DCMPRN 1 SPACE LUMB Decompression Spine - Posterior Lumbar Referral ID Status Reason Start Date Expiration Date Visits Requ ested Visits Authorized [id number] 1 1 Encounter Details Date Type Department Care Team Description 01/07/2018 Anesthesia Event RST ROMB MAIN OR Denzel Richter, [address] [facility] [place] [address] [address] [facility] [phone] [place] [phone] (Wo rk) Anesthesia Record Procedure Summary Procedure [...] Fransisco Wright, Manny Wright, (created via procedure DEVOPS CONSULTANT, ZAK, D.N.P. DEVOPS CONSULTANT, ENERGY TRADER, D.N.P. documentation); Mask Ventilation: Easy mask; Type: Standard ETT; Single Lumen Tube Size: 7 mm; Cuffed: Yes; Blade Size: De Anda 2; Location: Oral; Removal Date: 01/07/18; Removal Time: 1424 (RETIRED) Incision 01/07/18; 1215; Back; 01/07/18 1215 by 1418 by Posterior; STRP STRS Jahaira Tan, [facility] ic-Backgroun SKNCLSR NWVN 1/4X4 (x1), R.N. d, [...] How often do you attend faith or anglican Never 01/31/2019 services? 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/2018 2:20 PM TELECOMMUNICATOR documented as of this encounter OR Notes Anesthesia Postprocedure Evaluation - Fransisco Wright APRN, ENERGY TRADER, D.N.P. - 01/07/2018 2:37 PM CST Patient: Wendi Odonnell Procedure Summary Date: 01/07/18 Room / Location: [address] / [facility] in [place], [place] Anesthesia Start: 1204 Anesthesia Stop: 1434 [...] Post Op nausea/vomiting: none Hydration status: euvolemic COMMUNICATOR Anesthesia Procedure Notes - Fransisco Wright APRN, [...] Procedure outcome: successful Airway event: no complications COMMUNICATOR Anesthesia Preprocedure Evaluation - Denzel Richter M.D. [...] patient / legal guardian, or through an language interpreter; patient evaluated and approved for anesthesia / sedation. Use of blood products discussed with patient who consented to blood products. COMMUNICATOR documented in this encounter Plan of Treatment Not on filedocumented as of this encounter Procedures Procedure Name Priority Date/Time Associated Comments Diagnosis LDA ANE ENDOTRACHEAL Routine 01/07/2018 12:36 Res ults for this AIRWAY PM TELECOMMUNICATOR procedure are i n the results section. documented in this encounter Results LDA ANE ENDOTRACHEAL AIRWAY (01/07/2018 12:36 PM TELECOMMUNICATOR) Narrative Fransisco Wright APRN, CRNA, D.N.P. - 12:36 PM TELECOMMUNICATOR Fransisco Wright APRN, CRNA, D.N.P. ? 01/07/2018 [...] no complications Procedure Note Fransisco Wright, TATY, ENERGY TRADER, D.N.P. - 12:36 PM CST Airway Date/Time: [...] Site acetaminophen injection Given 01/07/2018 2:05 PM TELECOMMUNICATOR 1,000 mg (OFIRMEV) Administer over 15 Minutes, As needed, Starting on Sun01/07/18 at 1405, Anesthesia Intra-op ceFAZolin injection 2,000 mg (ANCEF) Given 01/07/2018 12:30 PM TELECOMMUNICATOR 2 g 2,000 mg (rounded from 1,450 [...] dexamethasone injection (DECADRON) Given 01/07/2018 12:25 PM TELECOMMUNICATOR 4 mg As needed, Starting on Sun01/07/18 at 1225, Anesthesia Intra-op droperidol injection (INAPSINE) Given 01/07/2018 2:08 PM TELECOMMUNICATOR 0.625 mg intravenous, As needed, nausea, vomiting, Starting on Sun01/07/18 at 1408, Anesthesia Intra-op fentaNYL injection (SUBLIMAZE) Given 01/07/2018 1:59 PM TELECOMMUNICATOR 50 mcg intravenous, As needed, severe pain or score 7-10 of 10, Starting on Sun01/07/18 at 1212, Anesthesia Intra-op Given 01/07/2018 12:12 PM TELECOMMUNICATOR 100 mcg ketorolac injection (TORADOL) Given 01/07/2018 2:12 PM TELECOMMUNICATOR 15 mg As needed, moderate pain or score 4-6 of 10, Starting on Sun01/07/18 at 1412, Anesthesia Intra-op lactated ringers New Bag 01/07/2018 2:08 PM TELECOMMUNICATOR intravenous, Continuous Infusion: Per Instructions PRN, Starting on Sun01/07/18 at 1208, Anesthesia Intra-op New Bag 01/07/2018 12:08 PM TELECOMMUNICATOR lidocaine (PF) (cardiac) injection Given 01/07/2018 12:12 PM TELECOMMUNICATOR 60 mg intravenous, As needed, Starting on Sun01/07/18 at 1212, Anesthesia Intra-op ondansetron (PF) injection (ZOFRAN) Given 01/07/2018 2:08 PM TELECOMMUNICATOR 4 mg intravenous, As needed, nausea, vomiting, Starting on Sun01/07/18 at 1408, Anesthesia Intra-op phenylephrine 80 mcg/mL in Rate/Dose 01/07/2018 1:01 0.4 mcg/kg/min 17.4 mL/hr NaCl 0.9% 250 mL infusion Change PM TELECOMMUNICATOR Continuous Infusion: Per Instructions PRN, Starting on Sun01/07/18 at 1258, Anesthesia Intra-op New Bag 01/07/2018 12:58 PM TELECOMMUNICATOR 0.3 mcg/kg/min 13.1 mL/hr phenylephrine injection Given 01/07/2018 12:52 PM TELECOMMUNICATOR 100 mcg intravenous, As needed, Starting on Sun01/07/18 at 1224, Anesthesia Intra-op Given 01/07/2018 12:34 PM TELECOMMUNICATOR 150 mcg Given 01/07/2018 12:25 PM TELECOMMUNICATOR 100 mcg propofol 10 mg/mL infusion Rate/Dose 01/07/2018 2:05 25 mcg/kg/min 8 .7 mL/hr (DIPRIVAN) Change PM TELECOMMUNICATOR Continuous Infusion: Per Instructions PRN, Starting on Sun01/07/18 at 1215, Anesthesia Intra-op New Bag 01/07/2018 12:15 PM TELECOMMUNICATOR 50 mcg/kg/min 17.4 mL/hr propofol injection (DIPRIVAN) Given 01/07/2018 12:13 PM TELECOMMUNICATOR 200 mg intravenous, As needed, Starting on Sun01/07/18 at 1213, Anesthesia Intra-op rocuronium injection (ZEMURON) Given 01/07/2018 12:35 PM TELECOMMUNICATOR 50 mg As needed, Starting on Sun01/07/18 at 1235, Anesthesia Intra-op succinylcholine-0.9% NaCl (PF) injection Given 01/07/2018 12:14 PM TELECOMMUNICATOR 60 mg (ANECTINE) intravenous, As needed, Starting on Sun01/07/18 at 1214, Anesthesia Intra-op sugammadex injection (BRIDION) Given 01/07/2018 2:13 PM TELECOMMUNICATOR 116 mg As needed, Starting on Sun01/07/18 at 1413, Anesthesia Intra-op tranexamic acid 600 mg in NaCl 0.9% IVPB New Bag 01/07/2018 12:23 PM TELECOMMUNICATOR 660 mg 600 mg (rounded from 587 mg = 10 mg/kg ? 58.7 kg Order-specific weight), intravenous, at 168 mL/hr, Administer over 20 Minutes, Once in surgery, OR use only, Starting on Sun01/07/18 at 0739, For 1 dose, Intra-Op tranexamic acid 8 mg/mL in New Bag 01/07/2018 12:38 PM TELECOMMUNICATOR 2 m g/kg/hr 14.7 mL/hr NaCl 0.9% [...] documented as of this encounter Care Teams Coding Coordinator Relationship Specialty Start Date End Date Kandi Alberts, TATY, C.N.P. PCP - General 07/27/16 07/10/[address] [phone] documented as of this encounter
--- OUTSIDE RECORDS SUMMARY | 2021-12-08 16:56 | XMS_ITS | Encounter Summary ---
:1985 Author Organization [facility] Address [address] [place] [address] Care Team Providers Name Role Phone Kandi Alberts APRN C.N.P. Primary Care Provider [phone] Reason for Visit Reason Onset Date Comments Move appt on 11-28 to afternoon? 11/21/2017 Encounter Details Date Type Department Care Team Description 11/21/2017 Clinical Communication Department of Zeina Mtzt on 11-28 Orthopedic Surgery Matthias Higgins M.D. to afternoon? in [place], [address] [place] [address] [address] [facility] [address] [place], [place] [phone] (Work) [phone] Social History Tobacco Use Types Packs/Day Years [...] How often do you attend jain or baptist Never 01/31/2019 services? Do you [...] to pay for the very basics like [employer] hat hard 11/27/2019 food, housing, medical care, [...] at Date Recorded Female 01/11/2018 2:20 PM SPEECH AND HEARING DIRECTOR documented as of this encounter Miscellaneous [...] documented as of this encounter Care Teams Private Branch Exchange Repairer Relationship Specialty Start Date End Date Kandi Alberts, TATY, C.N.P. PCP - General 07/27/16 07/10/18 [address] [place] [address] documented as of this encounter
--- OUTSIDE RECORDS SUMMARY | 2021-12-08 16:56 | XMS_ITS | Encounter Summary ---
:1985 Author Organization [facility] Address [address] [place] [address] Care Team Providers Name Role Phone Kandi Alberts APRN C.N.PGordon Primary Care Provider [phone] Reason for Referral MRI/CAT/PET Scan (Routine) - Closed Specialty Diagnoses / Procedures Referred By Contact Refer red To Contact Radiology Diagnoses Radiculopathy Lumbar Matthias Mtz M.D. 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 Degeneration Disc Lumbar; [place], [place] [address] Other Intervertebral Disc Displacement L umbar Region; [address] [place], [place] [address] [phone] Social History Tobacco Use Types Packs/Day Years [...] How often do you attend jainism or pentecostal Never 01/31/2019 services? Do you [...] Date Recorded Female 01/11/2018 2:20 PM MEDICAL DIRECTOR OF HOSPICE documented as of this encounter Progress Notes [...] and/or coordination of care as described above. CAL DIRECTOR OF HOSPICE documented in this encounter Plan of Treatment Not on filedocumented as of this encounter Results MR Lumbar Spine without and with IV Contrast (01/23/2018 2:59 PM MEDICAL DIRECTOR OF HOSPICE) Anatomical Region Laterality Modality Lumbar Spine, Neuroradiology RST [facility], Neuroradiology N/A Magnetic Resonance [facility]Z [facility], Neuroradiology FLA [facility] Specimen (Source) Anatomical Collection Method Collection Time Re ceived Time Location / / Volume Laterality 01/23/2018 5:46 PM MEDICAL DIRECTOR OF HOSPICE Impressions 01/23/2018 6:00 PM MEDICAL DIRECTOR OF HOSPICE IMPRESSION: 1. Interval left L5-S1 laminotomy. Enhan [...] protrusion at L4-5. Narrative 01/23/2018 6:00 PM MEDICAL DIRECTOR OF HOSPICE EXAM: MR LUMBAR SPINE WITHOUT AND WITH [...] PROCEDURES CRP (C-Reactive Protein) (01/16/2018 1:27 PM MEDICAL DIRECTOR OF HOSPICE) P athologist Signature C-Reactive <3.0 <=8.0 mg/L 01/16/2018 [facility] Protein (CRP), 2:40 PM MEDICAL DIRECTOR OF HOSPICE LABORATORIES - S [facility] Specimen Anatomical Collection Method Collection Time Receive d Time (Source) Location / / Volume Laterality Blood (Blood, 01/16/2018 1:27 PM 01/17/20 18 1:49 Venous) MEDICAL DIRECTOR OF HOSPICE PM MEDICAL DIRECTOR OF HOSPICE Matthias Mtz M.D. LAB BLOOD ADD-ON Performing Organization Address City/State/ZIP Code Phon e Number [facility]IES - [address] [place], [place] [address] [facility] (ABNORMAL) CBC with Differential, Blood (01/16/2018 1:27 PM MEDICAL DIRECTOR OF HOSPICE) Patholo gist Method Time Signature Hemoglobin 13.9 11.6 - 01/16/2018 [facility] 15.0 g/dL 1:57 PM MEDICAL DIRECTOR OF HOSPICE LABORATORIES - [facility] Hematocrit 42.8 35.5 - 01/16/2018 [facility] 44.9 % 1:57 PM MEDICAL DIRECTOR OF HOSPICE LABORATORIES - [facility] Erythrocytes 4.84 3.92 - 01/16/2018 [facility] 5.13 1:57 PM MEDICAL DIRECTOR OF HOSPICE LABORATORIES - x10(12)/L [facility] MCV 88.4 78.2 - 01/16/2018 [facility] 97.9 fL 1:57 PM MEDICAL DIRECTOR OF HOSPICE LABORATORIES [facility] RBC Distrib 11.8 (L) 12.2 - 01/16/2018 [facility] Width 16.1 % 1:57 PM MEDICAL DIRECTOR OF HOSPICE LABORATORIES - [facility] Platelet Count 308 157 - 371 01/16/2018 [facility] x10(9)/L 1:57 PM MEDICAL DIRECTOR OF HOSPICE LABORATORIES [facility] Leukocytes 11.7 (H) 3.4 - 9.6 01/16/2018 [facility] x10(9)/L 1:57 PM MEDICAL DIRECTOR OF HOSPICE LABORATORIES - [facility] Neutrophils 7.59 (H) 1.56 - 01/16/2018 [facility] 6.45 1:57 PM MEDICAL DIRECTOR OF HOSPICE LABORATORIES - x10(9)/L [facility] Lymphocytes 3.08 (H) 0.95 - 01/16/2018 [facility] 3.07 1:57 PM MEDICAL DIRECTOR OF HOSPICE LABORATORIES - x10(9)/L [facility] Monocytes 0.81 0.26 - 01/16/2018 [facility] 0.81 1:57 PM MEDICAL DIRECTOR OF HOSPICE LABORATORIES - x10(9)/L [facility] Eosinophils 0.12 0.03 - 01/16/2018 [facility] 0.48 1:57 PM MEDICAL DIRECTOR OF HOSPICE LABORATORIES - x10(9)/L [facility] Basophils 0.05 0.01 - 01/16/2018 [facility] 0.08 1:57 PM MEDICAL DIRECTOR OF HOSPICE LABORATORIES - x10(9)/L [facility] Specimen Anatomical Collection Method Collection Time Receive d Time (Source) Location / / Volume Laterality Blood (Blood, 01/16/2018 1:27 PM 01/17/20 18 1:49 Venous) MEDICAL DIRECTOR OF HOSPICE PM MEDICAL DIRECTOR OF HOSPICE Matthias Mtz M.D. LAB BLOOD ADD-ON Performing Organization Address City/[facility]/ZIP Code Phon e Number [facility] - 200 [place], [place] [address] [facility] Sedimentation Rate (01/16/2018 1:26 PM MEDICAL DIRECTOR OF HOSPICE) [facility] gist Method Time Signature Sedimentation 6 0 - 29 01/16/2018 [facility] Rate, B mm/1 h 3:48 PM MEDICAL DIRECTOR OF HOSPICE LABORATORIES - [facility] Specimen Anatomical Collection Method Collection Time Receive d Time (Source) Location / / Volume Laterality Blood (Blood, 01/16/2018 1:26 PM 01/17/20 18 1:49 Venous) MEDICAL DIRECTOR OF HOSPICE PM MEDICAL DIRECTOR OF HOSPICE Matthias Mtz M.D. LAB BLOOD ADD-ON Performing Organization Address City/[facility] Phon e Number [facility] - [address] [place] [phone] 05 [facility] documented in this encounter Visit Diagnoses Diagnosis Pain Low Back Chronic Degeneration Disc Lumbar Other Intervertebral Disc Displacement L umbar Region Radiculopathy Lumbar Radiculopathy Lumbar documented in this encounter Additional Health Concerns Assessment Noted Time PHQ-9 Depression Total Score: 15 09/28/2017 3:51 PM CD T documented as of this encounter Care Teams Tube Balancer Relationship Specialty Start Date End Date Kandi Alberts, SUPERVISOR CLEANING AND ANNEALING, C.N.P. PCP - General 07/27/16 07/10/[address] [phone] documented as of this encounter
--- OUTSIDE RECORDS SUMMARY | 2021-12-08 16:56 | XMS_ITS | Encounter Summary ---
:1985 Author Organization [facility] Address [address] [place] [id number] Care Team Providers Name Role Phone Kandi Alberts APRN C.N.PGordon Primary Care Provider Encounter Details Date Type Department Care Team Description 01/16/2018 Hospital Encounter Department of [place], Radiculo blanca Lumbar Laboratory Medicine Matthias Higgins M.D . and Pathology, [address] [place] [address] in [place], [place] [phone] [place] [address] [place], [place] (Work) [phone] Social History Tobacco Use Types Packs/Day Years [...] How often do you attend pentecostalism or voodoo Never 01/31/2019 services? 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/2018 2:20 PM WARP SPINNER documented as of this encounter Medications at [...] Resu lts for this DIFFERENTIAL, B PM WARP SPINNER procedure ar e in the results section. C-REACTIVE PROTEIN Routine 01/16/2018 1:27 Radiculopathy Lumba r Results for this (CRP), S/P PM WARP SPINNER procedure are i n the results section. SEDIMENTATION RATE, B Routine 01/16/2018 1:26 Radiculopathy Kristin mbar Results for this PM WARP SPINNER procedure are i n the results section. documented in this encounter Results CRP (C-Reactive Protein) (01/16/2018 1:27 PM WARP SPINNER) P athologist Signature C-Reactive <3.0 <=8.0 mg/L 01/16/2018 [facility] Protein (CRP), 2:40 PM WARP SPINNER [facility]ORATORIES - S [facility] Specimen Anatomical Collection Method Collection Time Receive d Time (Source) Location / / Volume Laterality Blood (Blood, 01/16/2018 1:27 PM 01/17/20 18 1:49 Venous) WARP SPINNER PM WARP SPINNER Matthias Mtz M.D. LAB BLOOD ADD-ON Performing Organization Address City/State/ZIP Code Phon e Number [facility]IES - 200 [place], [place] [address] [facility] (ABNORMAL) CBC with Differential, Blood (01/16/2018 1:27 PM WARP SPINNER) [facility] gist Method Time Signature Hemoglobin 13.9 11.6 - 01/16/2018 [facility] 15.0 g/dL 1:57 PM WARP SPINNER [facility] - [facility] Hematocrit 42.8 35.5 - 01/16/2018 [facility] 44.9 % 1:57 PM WARP SPINNER [facility] - [facility] Erythrocytes 4.84 3.92 - 01/16/2018 [facility] 5.13 1:57 PM WARP SPINNER LABORATORIES - x10(12)/L [facility] MCV 88.4 78.2 - 01/16/2018 [facility] 97.9 fL 1:57 PM WARP SPINNER [facility] - [facility] RBC Distrib 11.8 (L) 12.2 - 01/16/2018 [facility] Width 16.1 % 1:57 PM WARP SPINNER [facility] - [facility] Platelet Count 308 157 - 371 01/16/2018 [facility] x10(9)/L 1:57 PM WARP SPINNER [facility] - [facility] Leukocytes 11.7 (H) 3.4 - 9.6 01/16/2018 [facility] x10(9)/L 1:57 PM WARP SPINNER [facility] - [facility] Neutrophils 7.59 (H) 1.56 - 01/16/2018 [facility] 6.45 1:57 PM WARP SPINNER [facility]IES - x10(9)/L [facility] Lymphocytes 3.08 (H) 0.95 - 01/16/2018 [facility] 3.07 1:57 PM [facility] SPINNER [facility] - x10(9)/L [facility] Monocytes 0.81 0.26 - 01/16/2018 [facility] 0.81 1:57 PM WARP SPINNER [facility] - x10(9)/L [facility] Eosinophils 0.12 0.03 - 01/16/2018 [facility] 0.48 1:57 PM WARP SPINNER [facility] - x10(9)/L [facility] Basophils 0.05 0.01 - 01/16/2018 [facility] 0.08 1:57 PM WARP SPINNER [facility]IES - x10(9)/L [facility] Specimen Anatomical Collection Method Collection Time Receive d Time (Source) Location / / Volume Laterality Blood (Blood, 01/16/2018 1:27 PM 01/17/20 18 1:49 Venous) WARP SPINNER PM WARP SPINNER Matthias tMz M.D. LAB BLOOD ADD-ON Performing Organization Address City/[facility]/ZIP Code Phon e Number [facility] - 200 [place], [place] [address] [facility] Sedimentation Rate (01/16/2018 1:26 PM WARP SPINNER) [facility] gist Method Time Signature Sedimentation 6 0 - 29 01/16/2018 [facility] Rate, B mm/1 h 3:48 PM WARP SPINNER [facility] - [facility] Specimen Anatomical Collection Method Collection Time Receive d Time (Source) Location / / Volume Laterality Blood (Blood, 01/16/2018 1:26 PM 01/17/20 18 1:49 Venous) WARP SPINNER PM WARP SPINNER Matthias Mtz M.D. LAB BLOOD ADD-ON Performing Organization Address City/[facility] Code Phon e Number [facility]IES - [address] [place], [place] [address] [facility] documented in this encounter Visit Diagnoses Diagnosis Radiculopathy Lumbar documented in this encounter Additional Health Concerns Assessment Noted Time PHQ-9 Depression Total Score: 15 09/28/2017 3:51 PM CD T documented as of this encounter Care Teams Education Officer Relationship Specialty Start Date End Date Kandi Alberts, TATY, C.N.P. PCP - General 07/27/16 07/10/[address] [phone] documented as of this encounter
--- OUTSIDE RECORDS SUMMARY | 2021-12-08 16:56 | XMS_ITS | Encounter Summary ---
:1985 Author Organization [facility] Address [address] [place] [address] Care Team Providers Name Role Phone Kandi Alberts APRN C.N.PGordon Primary Care Provider [phone] Reason for Referral Outpatient (Routine) - Closed Specialty Diagnoses / Procedures Referred By Contact Refer red To Contact Orthopedic Surgery Diagnoses Pain Low Back Chronic Degeneration Disc Lumbar Other Intervertebral Disc Displacement Lumbar Region Bridger Caldwell [place] [facility] M.D. [address] [place] [phone] Referral ID Status Reason Start Date Expiration Date Visits Requ ested Visits Authorized [id number] Closed 01/07/2018 01/07/2019 1 1 E JUMPER Outpatient (Routine) - Closed Specialty Diagnoses / Procedures Referred By Contact Refer red To Contact Orthopedic Surgery Bridger Caldwell M .D. [address] [address] Referral ID Status Reason Start Date Expiration Date Visits Requ ested Visits Authorized [id number] Closed 01/07/2018 01/07/2019 1 1 E JUMPER Reason for Visit Auth/Cert Specialty Diagnoses / Procedures Referred By Contact Refer red To Contact Diagnoses Extruded Disc Lumbar Procedures CO LMNOTOMY W DCMPRN 1 SPACE LUMB Decompression Spine - Posterior Lumbar Referral ID Status Reason Start Date Expiration Date Visits Requ ested Visits Authorized [id number] 1 1 Encounter Details Date Type Department Care Team Description 01/07/2018 - Hospital Encounter [facility] Bibi, Pain Low Back Chronic (Primary Dx); 01/08/2018 [facility] M.D. Degeneration Disc Lumbar; [facility], Jessica [address] Other Intervertebral Disc Displacement L umbar Region [facility], [place], [place] Eighth Floor [phone] [phone] [place], [place] (Work) [phone] Social History Tobacco Use [...] How often do you attend adventist or yarsani Never 01/31/2019 services? 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/2018 2:20 PM SMOKE JUMPER documented as of this encounter Last Filed Vital Signs Vital Sign Reading Time Taken Comments Blood Pressure 132/87 01/08/2018 8:00 AM SMOKE JUMPER Pulse 72 01/08/2018 8:36 AM SMOKE JUMPER Temperature 36.9 ??C (98.42 ??F) 01/08/2018 8:00 AM SMOKE JUMPER Respiratory Rate 16 01/08/2018 4:35 AM SMOKE JUMPER Oxygen Saturation 96% 01/08/2018 8:36 AM SMOKE JUMPER Inhaled Oxygen Concentration - - Weight 58 kg (127 lb 13.9 oz) 01/07/2018 6:00 AM SMOKE JUMPER Height 168 cm (5' 6.14) 01/07/2018 6:00 AM SMOKE JUMPER Body Mass Index 20.55 01/07/2018 6:00 AM SMOKE JUMPER documented in this encounter Discharge Summaries Billy Mercado M.D. - 01/07/2018 3:41 PM CST DISCHARGE SUMMARY BRIEF OVERVIEW Discharge Provider: Matthias Mtz M.D. Primary Care Providers: Kandi Alberts, TATY, C.N.PGordon (General) [address] [facility] [phone] Primary Care Provider Primary Care Provider Other [...] Case IDs Date Procedure Surgeon Location Status [id number] 01/07/18 L5-S1 microdiskectomy nerve root decompression. Matthias [...] were provided to the patient and caregiver(s). E JUMPER documented in this encounter Medications at Time [...] today with routine follow-up, patient is from [facility] and would like tofollow up for her wound check in [place] Activity: as tolerated, up with assistance Labs: [...] contact the service of Dr. Mtz at [phone] with any questions or concerns regarding management of this patient. E JUMPER Matthias Mtz M.D. - 01/07/2018 8:21 AM [...] at length. This will be through the [facility] program. After this surgery we can feel [...] she has been moved to second case. E JUMPER documented in this encounter H&P Notes Kavin Bailey M.D. - 01/07/2018 2:20 PM CST Post-op: No complication, Awake, not fully alert, Exam as preop with weakness in Left EHL E JUMPER Bridger Caldwell M.D. - 01/07/2018 7:55 AM [...] to proceed with surgery. All questions answered. E JUMPER documented in this encounter Consult Notes Roshni [...] ortho - spine Onset Date: 01/07/18 Payor: [facility] / Plan: [facility] / Product Type: Medicaid HMO / [...] root decompression.; Surgeon: Matthias Mtz M.D.; Location: [facility] OR ??? DILATION AND CURETTAGE OF UTERUS N/A 07/28/2003 D&C - Dilatation and curettage History of Present Illness: microsdiskectomy Prior Function / Occupational Profile Level of [place]: Independent with ADLs and functional transfers, Independent [...] needs met and questions answered. Outcome Measures -[facility] Inpatient Short Form: AM-[facility] Mobility: How much difficulty does the patient [...] Standardized Score: 61.14 Interpretation: Clinicians answer the -[facility] Inpatient Short Form based on observed patient [...] G-code Worksheet Functional Assessment Tool Used: PT [facility] Functional Limitation: Mobility: Walking and moving [...] CMS Modifier: CH Lisa Mcfarland P.T., [employer].PKeyona. E JUMPER documented in this encounter Nursing Notes Jahaira [...] be discharge today. Will continue to monitor. E JUMPER Salina Mercado R.N. - 01/07/2018 6:20 PM [...] Will continue to monitor as activity increases. E JUMPER documented in this encounter OR Notes Op [...] generous decompression. We tried to use a [place] 4 to push through the outer margin [...] at length. This will be through the [facility] program. After this surgery we can feel [...] surgery was identified in accordance with the [facility] protocol. The patient wasthen taken to the [...] and draped in usual sterile fashion. A [facility] pause was called. Procedural pause conducted to [...] joint, preserving the capsule. I placed a [place] under the targeted facet joint. I obtained [...] implants in log * Matthias Mtz M.D. E JUMPER Brief Op Note - Kavin Bailey M.D. [...] implants in log * Kavin Bailey M.D. E JUMPER documented in this encounter Miscellaneous Notes Hospital [...] the patient was discharged from the hospital. E JUMPER documented in this encounter Plan of Treatment [...] 01/08/2018 3:14 Resul ts for B AM SMOKE JUMPER this procedure are in the results section. CBC WITHOUT Routine 01/08/2018 3:14 Results for DIFFERENTIAL, B AM SMOKE JUMPER this procedu re are in the results section. C-REACTIVE PROTEIN Routine 01/08/2018 3:14 Result s for (CRP), S/P AM SMOKE JUMPER this procedure are in the results section. ADULT OXYGEN THERAPY Routine 01/07/2018 2:30 PM SMOKE JUMPER FL FLUORO LESS THAN RAD - Routine 01/07/2018 2:15 Resu lts for 1 HOUR (most inpatients PM SMOKE JUMPER this proced ure and all are in the outpatients) results section. DECOMPRESSION SPINE 01/07/2018 Stenosis Spinal - POSTERIOR LUMBAR 11:40 AM SMOKE JUMPER Lumbar With Neurogenic Claudication documented in this encounter Results DX Lumbar Spine 2-3 Views (03/27/2018 1:40 PM SMOKE JUMPER) Anatomical Region Laterality Modality Lumbar Spine, Musculoskeletal RST LOS, Neuroradiology N/A Digital Radiography ARZ LOS, Muskuloskeletal FLA LOS Specimen (Source) Anatomical Collection Method Collection Time Re ceived Time Location / / Volume Laterality 03/27/2018 1:46 PM SMOKE JUMPER Impressions 03/27/2018 1:48 PM SMOKE JUMPER IMPRESSION: ??Partial L5-S1 laminectomy on the left. Narrowed lumbosacral interspace with facet arthritis. Mild de generative change left hip with some prominence at the femoral head/neck offs et. Narrative 03/27/2018 1:48 PM SMOKE JUMPER EXAM: ??DX LUMBAR SPINE 2-3 VIEWS Procedure [...] DURES CRP (C-Reactive Protein) (01/08/2018 3:14 AM SMOKE JUMPER) P athologist Signature C-Reactive 4.5 <=8.0 mg/L 01/08/2018 [facility] Protein (CRP), 4:44 AM SMOKE JUMPER LAB[facility]ATORIES - S [facility] Specimen Anatomical Collection Method Collection Time Receive d Time (Source) Location / / Volume Laterality Blood (Blood, 01/08/2018 3:14 AM 01/09/20 18 4:08 Venous) SMOKE JUMPER AM SMOKE JUMPER Billy Mercado M.D. LAB BLOOD ADD-ON Performing Organization Address City/[facility] Phon e Number [facility]ATORIES - [address] [place] [address] [facility] Sedimentation Rate (01/08/2018 3:14 AM SMOKE JUMPER) [facility] Method Time Signature Sedimentation 7 0 - 29 01/08/2018 [facility] Rate, B mm/1 h 5:14 AM SMOKE JUMPER [facility] - [facility] Specimen Anatomical Collection Method Collection Time Receive d Time (Source) Location / / Volume Laterality Blood (Blood, 01/08/2018 3:14 AM 01/09/20 18 4:04 Venous) SMOKE JUMPER AM SMOKE JUMPER Billy Mercado M.D. LAB BLOOD ADD-ON Performing Organization Address City/State/[facility] Phon e Number [facility]IES - [address] [place] [address] [facility] (ABNORMAL) CBC without Differential (01/08/2018 3:14 AM SMOKE JUMPER) [facility] Method Time Signature Hemoglobin 11.8 11.6 - 01/08/2018 [facility] 15.0 g/dL 4:16 AM SMOKE JUMPER LABORATORIES [facility] Hematocrit 35.7 35.5 - 01/08/2018 [facility] 44.9 % 4:16 AM SMOKE JUMPER LABORATORIES [facility] Erythrocytes 4.07 3.92 - 01/08/2018 [facility] 5.13 4:16 AM SMOKE JUMPER LABORATORIES - x10(12)/L [facility] MCV 87.7 78.2 - 01/08/2018 [facility] 97.9 fL 4:16 AM SMOKE JUMPER LABORATORIES [facility] RBC Distrib 11.6 (L) 12.2 - 01/08/2018 [facility] Width 16.1 % 4:16 AM SMOKE JUMPER LABORATORIES [facility] Platelet Count 226 157 - 371 01/08/2018 [facility] x10(9)/L 4:16 AM SMOKE JUMPER LABORATORIES [facility] Leukocytes 14.6 (H) 3.4 - 9.6 01/08/2018 [facility] x10(9)/L 4:16 AM SMOKE JUMPER [facility] - [facility] Specimen Anatomical Collection Method Collection Time Receive d Time (Source) Location / / Volume Laterality Blood (Blood, 01/08/2018 3:14 AM 01/09/20 18 4:08 Venous) SMOKE JUMPER AM SMOKE JUMPER Billy Mercado M.D. LAB BLOOD ADD-ON Performing Organization Address City/State/ZIP Code Phon e Number [facility] - [address] [place], [place] [address] [facility] [place] Fluoro Less Than 1 Hour (01/07/2018 2:15 PM SMOKE JUMPER) Specimen (Source) Anatomical Location Collection Method / Collectio n Time Received Time / Laterality Volume Narrative 152 HOS LOS RST - 01/07/2018 2:15 PM SMOKE JUMPER This exam does not require a radiologist [...] tablet 1,000 mg Given 01/07/2018 7:14 AM SMOKE JUMPER 1,000 mg (TYLENOL) 1,000 mg, oral, Once, On Sun01/07/18 at 0615, For 1 dose, Pre-Op, In PreOp holding (PWA) acetaminophen tablet 1,000 mg (TYLENOL) Given 01/08/2018 8:06 AM SMOKE JUMPER 1,000 mg 1,000 mg, oral, 4 times daily, First dose on Sun01/07/18 at 1700, Not to exceed 4 grams in 24 hours. Given 01/07/2018 8:04 PM SMOKE JUMPER 1,000 mg Given 01/07/2018 5:42 PM SMOKE JUMPER 1,000 mg buPROPion 12 hr tablet 200 mg (WELLBUTRI N SR) Given 01/08/2018 8:05 AM SMOKE JUMPER 200 mg 200 mg, oral, Daily, First dose on Sun01/08/18 at 0900, Swallow whole. Do NOT crush, chew, or split tablet. ceFAZolin in dextrose (iso-os) IVPB 2 New Bag 01/08/2018 4:58 AM SMOKE JUMPER 2 g 200 mL/hr g (ANCEF) 2 g, intravenous, at 200 mL/hr, Administer over 30 Minutes, Every 8 hours, First dose on Sun01/07/18 at 2000, For 2 doses, Start within 8 hours of last IV dose. premix, Drug Monitoring Program: Pharmacist to adjust medication dosing based on indication and drug clearance factors., Indications: Prophylaxis, surgical New Bag 01/07/2018 7:34 PM SMOKE JUMPER 2 g 200 mL/hr fentaNYL injection 25 mcg (SUBLIMAZE) Given 01/07/2018 2:34 PM SMOKE JUMPER 25 mcg 25 mcg, intravenous, Every 2 min PRN, For pain 4 or greater (maximum 100 mcg). If max dose of Fentanyl is reached and if pain is greater than 4, discontinue Fentanyl: give Hydromorphone, Starting on Sun01/07/18 at 1429, PACU (only) gabapentin capsule 300 mg (NEURONTIN) Given 01/07/2018 7:14 AM SMOKE JUMPER 300 mg 300 mg, oral, Once, On Sun01/07/18 at 0615, For 1 dose, Pre-Op, preprocedure on unit with sips, Drug Monitoring Program: Pharmacist to adjust medication dosing based on indication and drug clearance factors. gabapentin capsule 300 mg (NEURONTIN) Given 01/07/2018 8:04 PM SMOKE JUMPER 300 mg 300 mg, oral, Daily at bedtime, First dose on Sun01/07/18 at 2100 ibuprofen tablet 600 mg (ADVIL,MOTRIN) 600 mg, oral, Every 6 hours, First dose on Sun 8 at 1600, Start 6 hours after last ketorolac dose administered ketorolac injection 15 mg (TORADOL) Given 01/08/2018 4:58 AM SMOKE JUMPER 15 mg 15 mg, intravenous, Every 6 hours, First dose on Sun01/07/18 at 1600, For 4 doses, Start no sooner than 6 hours after last intra-operative dose Adult IV push rate: Over 15 seconds. Peds IV push rate: Over 1 minute. 60 mg dose only for IM, not recommended for IV. Given 01/07/2018 10:47 PM SMOKE JUMPER 15 mg Given 01/07/2018 3:57 PM SMOKE JUMPER 15 mg lactated ringers New Bag 01/07/2018 3:34 PM SMOKE JUMPER 100 mL/hr 100 mL/hr 100 mL/hr, intravenous, Continuous, Starting on Sun01/07/18 at 1415, PACU & Post-Op oxyCODONE IR tablet 10 mg (ROXICODONE) Given 01/08/2018 12:22 AM SMOKE JUMPER 10 mg 10 mg, oral, Every 4 hours PRN, severe pain or score 7-10 of 10, or pain greater than comfort goal if other analgesics fail, Starting on Sun01/07/18 at 1532, Maximum dose of 10 mg in 4 hours. Given 01/07/2018 8:04 PM SMOKE JUMPER 10 mg oxyCODONE IR tablet 5 mg (ROXICODONE) Given 01/08/2018 8:06 AM SMOKE JUMPER 5 mg 5 mg, oral, Every 4 hours PRN, moderate pain or score 4-6 of 10, if other analgesics fail, Starting on Sun01/07/18 at 1532, Maximum dose of 10 mg in 4 hours sennosides-docusate sodium 8.6-50 mg per Given 01/07/2018 8:03 P M SMOKE JUMPER 1 tablet tablet 1 tablet (SENOKOT-S) 1 tablet, oral, 2 times daily, First dose on Sun01/07/18 at 2100, for constipation documented in this encounter Active and Recently Administered Medications Times are shown in SMOKE JUMPER. Scheduled Medication Order 01/06/2018 01/07/2018 01/08/2018 acetaminophen [...] 1230 (Given - Provider: Fransisco Wright APRN, POWER SYSTEMS ENGINEER, D.N.P.) 2,000 mg (rounded from 1,450 mg [...] (Not Given - Provider: Jahaira Rodriguez R.N., RN-BC - Reason: Patient/family refused) 20 [...] 1) 1557 (Given - Provider: Salina Mercado RGordonNGordon)2247 (Given - Provider: Haile Augustine RTyler) 0458 [...] ondansetron. fentaNYL injection 25 mcg (SUBLIMAZE) (CANCELED) 7824 (Given - Provider: Francoise Hoover, RGordonNGordon) 25 mcg, intravenous, Every 2 min [...] RTyler) 0022 (Given - Provider: Haile Augustine RGordonN.) 10 mg, oral, Every 4 hours PRN, [...] (New Bag - Provider: Fransisco Wright APRN, POWER SYSTEMS ENGINEER, D.N.P.) 600 mg (rounded from 587 mg [...] documented as of this encounter Care Teams Ocean Freight Forwarder Relationship Specialty Start Date End Date Kandi Alberts, TATY, C.N.P. PCP - General 07/27/16 07/10/[address] [phone] documented as of this encounter
--- OUTSIDE RECORDS SUMMARY | 2021-12-08 16:56 | XMS_ITS | Encounter Summary ---
:1985 Author Organization [facility] Address [address] [place] [address] Care Team Providers Name Role Phone Kandi Alberts APRN C.N.PGordon Primary Care Provider [phone] Reason for Visit Reason Comments Pain Appointment Request (Routine) - Closed Specialty Diagnoses / Procedures Referred By Contact Refer red To Contact Spine Sarthak Anguiano M.D . [address] [place] [address] Referral ID Status Reason Start Date Expiration Date Visits Requ ested Visits Authorized [id number] Closed 07/05/2017 07/05/2018 2 1 Encounter Details Date Type Department Care Team Description 11/28/2017 Comprehensive Visit Department of Robyn Mtz Ba Lumbar Orthopedic Surgery Matthias Higgins M.D. (Primary Dx) in [address] [place] [address] [place], [place] [phone] (Work) [phone] Social History Tobacco Use Types Packs/Day Years [...] How often do you attend advent or episcopalian Never 01/31/2019 services? Do you belong to [...] at Date Recorded Female 01/11/2018 2:20 PM E TAILER documented as of this encounter Consult Notes [...] At this point in time, her left S8rjilold radiating symptoms represent 50% of her overall [...] 2014, so this rupture event times to 3663-8707. This HNP???s mass effect has been stable since 2017. 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 The left S1 nerve root is contacted as it a traverses this area. This is not the largest herniation, nor the greatest degree of stenosis that I have seen. However, the patient has trialed a rather exhaustive nonoperative approach to therapy, to include career development consultant, physical therapy, personal training, diet, oral medication [...] of Systems obtained and recorded in the [facility] Medical Record have been reviewed. Spine Surgical Pertinent History: Body Habitus: There is no height or weight on file to calculate BMI. Normal (BMI 18.5 to <25) Bone Health: Unsure H/o Cancer: Denies. Mental Health Disease: Yes, Depression Anticoagulation use: None Past Medical History: Diagnosis Date ??? Alcoholism Personal History ([facility]) 4751-7696 ??? Dependence Alcohol (HCC) ??? 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 All of her questions were answered to her satisfaction and she is comfortable with the plan. She knows to contact the clinic if any questions should arise. I personally spent over half of a total of at least 30 minutes face to face with the patient in counseling and discussion and/or coordination of care as described above. Matthias Mtz MD Photographic Process Worker Spine Surgery Department of Orthopedic Surgery [facility] Assisted by: Ginger Mendoza Kindly CC the following care team colleagues: PCP: Kandi Alberts APRN, C.N.P. documented in this encounter Plan of Treatment Not on filedocumented as of this encounter Results (ABNORMAL) Staphylococcus aureus PCR (11/28/2017 11:28 AM CDT) [facility] gist Method Time Signature Staphylococcus NARES 11/29/2017 [facility] aureus PCR BILATERAL 12:11 PM LABORATORIES - Specimen Source SWAB CDT [facility] Result Positive Not 11/29/2017 [facility] (A) Applicable 12:11 PM LABORATORIES - CDT [facility] Comment: ----ADDITIONAL INFORMATION---- This test was developed and its performa nce characteristics determined by [facility] in a manner consistent with CLIA requirements. [...] Organization Address City/State/ZIP Code Phon e Number [facility] LABORATORIES - 200 [place], [place] [address] [facility] documented in this encounter Visit Diagnoses Diagnosis Pain Back Lumbar - Primary documented in this encounter Additional Health Concerns Assessment Noted Time PHQ-9 Depression Total Score: 15 09/28/2017 3:51 PM CD T documented as of this encounter Care Teams Self Pay Representative Relationship Specialty Start Date End Date Kandi Alberts, TATY, C.N.P. PCP - General 07/27/16 07/10/18 [address], [place] [address] documented as of this encounter
--- OUTSIDE RECORDS SUMMARY | 2021-12-08 16:56 | XMS_ITS | Encounter Summary ---
:1985 Author Organization [facility] Address [address] [place] [address] Care Team Providers Name Role Phone Kandi Alberts APRN CGordonNGordonPGordon Primary Care Provider [phone] Encounter Details Date Type Department Care Team Description 11/21/2017 Hospital Encounter Department of Helen Zapata Radiology, [place], in P.A.-C. [place], [address] [place], [place] [address] [facility] [address] [place], [place] [phone] (Work) [phone] Social History Tobacco Use Types Packs/Day Years [...] How often do you attend alevism or druze Never 01/31/2019 services? 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 - 11/21/2017Forma tting of this note might be different from the original. EXAM: DX LUMBAR SPINE 2-3 VIEWS IMPRESSION: Lumbar curvature. Mild disk space narrowing at L4 and L5. Spinal canal narrowing of the lower lumbar spin e. Marisa Zapata P.A.-C. [facility] [place] OCEDURES documented in this encounter Visit Diagnoses Diagnosis Radiculopathy Lumbosacral documented in this encounter Additional Health Concerns Assessment Noted Time PHQ-9 Depression Total Score: 15 09/28/2017 3:51 PM CD T documented as of this encounter Care Teams Universal Branch Consultant Relationship Specialty Start Date End Date Kandi lAberts, TATY, C.N.P. PCP - General 07/27/16 07/10/[address] [phone] documented as of this encounter
--- OUTSIDE RECORDS SUMMARY | 2021-12-08 16:56 | XMS_ITS | Encounter Summary ---
:1985 Author Organization [facility] Address [address] [place] [address] Care Team Providers Name Role Phone Kandi Alberts APRN CGordonNGordonPGordon Primary Care Provider [phone] Reason for Referral MRI/CAT/PET Scan (Routine) - Closed Specialty Diagnoses / Procedures Referred By Contact Refer red To Contact Radiology Diagnoses Radiculopathy Lumbar [facility] Procedures MR Lumbar Spine without IV Contrast [place] MRI LUMB SPINE WO CNTRST [facility] MRI LUMB SPINE WO CNTRST P.A.-C. 200 [place] [address] Referral ID Status Reason Start Date Expiration Date Visits Requ ested Visits Authorized [id number] Closed 11/21/2017 11/21/2018 1 1 Reason for Visit MRI/CAT/PET Scan (Routine) - Closed Specialty Diagnoses / Procedures Referred By Contact Refer red To Contact Radiology Diagnoses Radiculopathy Lumbar Benny [facility] Procedures MR Lumbar Spine without IV Contrast [place] MRI LUMB SPINE WO CNTRST [facility] MRI LUMB SPINE WO CNTRST P.A.-C. [address] [place] [address] Referral ID Status Reason Start Date Expiration Date Visits Requ ested Visits Authorized [id number] Closed 11/21/2017 11/21/2018 1 1 Encounter Details Date Type Department Care Team Description 11/22/2017 Hospital Encounter Department of Helen Zapata Lumbar Radiology, Anthony Bill, in P.A.-C. [place], [address] [place], [place] 200 [facility] [address] [place], [place] [phone] (Work) [phone] Social History Tobacco Use Types Packs/Day Years [...] How often do you attend religion or taoism Never 01/31/2019 services? 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/2018 2:20 PM HEALTHCARE ADVISORY SERVICES MANAGER documented as of this encounter Medications [...] spine 03/01/2016. FINDINGS: Allowing for differences in sprinkler repair technician nique and patient position, no significant [...] spine 03/01/2016. FINDINGS: Allowing for differences in sprinkler repair technician nique and patient position, no significant [...] documented as of this encounter Care Teams Bill Poster Installer Relationship Specialty Start Date End Date Kandi Alberts, TATY, C.N.P. PCP - General 07/27/16 07/10/[address] [address] documented as of this encounter
--- OUTSIDE RECORDS SUMMARY | 2021-12-08 16:56 | XMS_ITS | Encounter Summary ---
:1985 Author Organization [facility] Address [address] [place] [address] Care Team Providers Name Role Phone Kandi Alberts APRN C.N.P. Primary Care Provider Encounter Details Date Type Department Care Team Description 07/02/2017 Orders Only Department of Family Colt bruon Pelvic Female Medicine, [place] villareal, (Primary Dx) Clinic, in [place] [address] [place] [phone] Social History Tobacco Use Types Packs/Day Years [...] How often do you attend sikhism or latter-day Never 01/31/2019 services? Do you [...] to pay for the very basics like Pressglue hat hard 11/27/2019 food, housing, medical care, [...] at Date Recorded Female 01/11/2018 2:20 PM FILM LOADER documented as of this encounter Plan of Treatment Not on filedocumented as of this encounter Visit Diagnoses Diagnosis Pain Pelvic Female - Primary documented in this encounter Additional Health Concerns Assessment Noted Time PHQ-9 Depression Total Score: 9 06/29/2017 11:57 AM CD T documented as of this encounter Care Teams Explosive Ordnance Disposal Manager Relationship Specialty Start Date End Date Kandi Alberts, EXCHANGE FLOOR MANAGER, C.N.P. PCP - General 07/27/16 07/10/18 [address], [place] [address] documented as of this encounter
--- OUTSIDE RECORDS SUMMARY | 2021-12-08 16:56 | XMS_ITS | Encounter Summary ---
:1985 Author Organization [facility] Address [address] [place] [address] Care Team Providers Name Role Phone Kandi Alberts APRN CGordonNGordonPGordon Primary Care Provider [phone] Encounter Details Date Type Department Care Team Description 09/28/2017 Orders Only Department of [facility] Carito coronado Medicine, [facility] in [facility] geodetic advisor [address] [place] [address] [facility] [place] [phone] (Wo rk) Social History Tobacco Use Types [...] How often do you attend zoroastrian or mandaen Never 01/31/2019 services? 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 PCP - General 07/27/16 07/10/[address] [phone] documented as of this encounter
--- OUTSIDE RECORDS SUMMARY | 2021-12-08 16:56 | XMS_ITS | Encounter Summary ---
:1985 Author Organization [facility] Address [address] [place] [address] Care Team Providers Name Role Phone Kandi Alberts APRN C.NGordonPGordon Primary Care Provider [phone] Encounter Details Date Type Department Care Team Description 11/28/2017 Hospital Encounter Department of Matthias Mtz Pain Back Lumbar Laboratory Medicine Olu Higgins and Pathology, [place] [address] [place] [address] in [place], [place] [address] [place] [address] [place], [place] (Work) [phone] [phone] Social History Tobacco Use Types Packs/Day Years [...] How often do you attend buddhist or islam Never 01/31/2019 services? 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 documented as of this encounter Medications [...] Staphylococcus aureus PCR (11/28/2017 11:28 AM CDT) [facility] [employer] Method Time Signature Staphylococcus NARES 11/29/2017 [facility] aureus PCR BILATERAL 12:11 PM LABORATORIES - Specimen Source SWAB CDT [facility] Result Positive Not 11/29/2017 [facility] (A) Applicable 12:11 PM LABORATORIES - CDT [facility] Comment: ----ADDITIONAL INFORMATION---- This test was developed and its performa nce characteristics determined by [facility] in a manner consistent with CLIA requirements. This test has not been cleared or approved by the [place] d and Drug Administration. Specimen Anatomical Collection Method Collection Time Receive d Time (Source) Location / / Volume Laterality Varies (Nares) 11/28/2017 11:28 8 AM CDT 12:08 PM CDT Matthias Mtz M.D. LAB MICROBIOLOGY - GENERAL O RDERAAGUILA Performing Organization Address City/[facility] Code Phon e Number [facility] LABORATORIES - 200 [place] [address] [facility] MRSA Culture (11/28/2017 11:26 AM CDT) [facility] [employer] Method Time Signature MRSA Culture No growth 11/30/2017 [facility] of MRSA 2:29 PM CDT LABORATORIES - [facility] Specimen Anatomical Collection Method Collection Time Receive d Time (Source) Location / / Volume Laterality Nares 11/28/2017 11:26 11/29/2017 AM CDT 12:22 PM CDT Comment: Specimen Source Site: SWAB Matthias Mtz M.D. LAB MICROBIOLOGY - GENERAL O RDERAAGUILA Performing Organization Address City/[facility] Phon e Number [facility] LABORATORIES - [address] documented in this encounter Visit Diagnoses Diagnosis Pain Back Lumbar documented in this encounter Additional Health Concerns Assessment Noted Time PHQ-9 Depression Total Score: 15 09/28/2017 3:51 PM CD T documented as of this encounter Care Teams Party Plan Sales Director Relationship Specialty Start Date End Date Kandi Alberts, TATY, C.N.P. PCP - General 07/27/16 07/10/[address] [phone] documented as of this encounter
--- OUTSIDE RECORDS SUMMARY | 2021-12-08 16:56 | XMS_ITS | Encounter Summary ---
:1985 Author Organization [facility] Address [address] [place] [address] Care Team Providers Name Role Phone Kandi Alberts APRN, C.N.P. Primary Care Provider [phone] Encounter Details Date Type Department Care Team Description 07/03/2017 Clinical Communication Department of [facility] Ni Alberts, Medicine, [place] TATY, C.N.P. [facility], [place] [address] [address] [place], [place] [address] [address] [place], [place] [phone] (Work) [phone] Social History Tobacco Use Types Packs/Day Years [...] How often do you attend baptist or pentecostal Never 01/31/2019 services? 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 PCP - General 07/27/16 07/10/18 [address], [place] [address] documented as of this encounter
--- OUTSIDE RECORDS SUMMARY | 2021-12-08 16:56 | XMS_ITS | Encounter Summary ---
:1985 Author Organization [facility] Address [address] [place] [address] Care Team Providers Name Role Phone Kandi Alberts APRN C.N.P. Primary Care Provider [phone] Reason for Visit Reason Onset Date Comments Pre-visit Testing Orders 07/05/2017 Encounter Details Date Type Department Care Team Description 07/05/2017 Clinical Department of Prescheduling, Pre-visit Te sting Communication Spine in Provider Orders [place], [place] [address] [place] [address] Social History Tobacco Use Types Packs/Day Years [...] How often do you attend confucianist or tenriism Never 01/31/2019 services? 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 PCP - General 07/27/16 07/10/18 [address] [place] [phone] documented as of this encounter
--- OUTSIDE RECORDS SUMMARY | 2021-12-08 16:56 | XMS_ITS | Encounter Summary ---
:1985 Author Organization [facility] Address [address] [place] [address] Care Team Providers Name Role Phone Kandi Alberts APRN C.NGordonPGordon Primary Care Provider [phone] Reason for Visit Reason Onset Date Comments Results 07/02/2017 Encounter Details Date Type Department Care Team Description 07/02/2017 Clinical Communication Department of [facility] Trudi Asya [facility] Medicine, [place], Clinic, in [place] [address] [place] [phone] Social History Tobacco Use Types Packs/Day Years [...] How often do you attend orthodoxy or jew Never 01/31/2019 services? 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 [facility] will be contacting her just to follow-up [...] to give Dr. Hedrick an update,call her [phone]. documented in this encounter Plan of Treatment Not on filedocumented as of this encounter Visit Diagnoses Not on filedocumented in this encounter Additional Health Concerns Assessment Noted Time PHQ-9 Depression Total Score: 9 06/29/2017 11:57 AM CD T documented as of this encounter Care Teams Associate Software Application Engineer Relationship Specialty Start Date End Date Kandi Alberts, TATY, C.N.P. PCP - General 07/27/16 07/10/[address] [phone] documented as of this encounter
--- OUTSIDE RECORDS SUMMARY | 2021-12-08 16:56 | XMS_ITS | Encounter Summary ---
:1985 Author Organization [facility] Address [address] [place] [address] Care Team Providers Name Role Phone Kandi Alberts APRN, C.N.P. Primary Care Provider [phone] Reason for Visit Reason Comments Abdominal Cramping cramping in lower right abdo min along with breast discomfort x 1 month Appointment Request (Routine) - Closed Specialty Diagnoses / Procedures Referred By Contact Refer red To Contact Family Medicine Referral ID Status Reason Start Date Expiration Date Visits Requ ested Visits Authorized [id number] Closed 09/25/2017 09/25/2018 1 Encounter Details Date Type Department Care Team Description 09/28/2017 Office Visit Department of Family Huang Pel naima And Perineal Medicine, Marisel Mcgregor, Pain (Pr imary Dx) Clinic, in [place] [address] [place] [phone] Social History Tobacco Use Types Packs/Day Years [...] How often do you attend episcopal or amish Never 01/31/2019 services? 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 She has also had some [...] Gardnerella [facility] documented in this encounter Plan of Treatment [...] CHLAMYDIA/GONORRHOE Routine 09/28/2017 4:30 PM Pelvic And Kandice supa Results for this AE AMPLIFIED RNA CDT Pain procedure a re in the results section. documented in this encounter Results Test, POCT, Urine (lab) - [facility] (09/28/2017 4:43 PM CDT) P athologist Signature Negative 09/28/2017 [facility] Test, POCT, U 4:51 PM CDT [facility] Specimen Anatomical Collection Method Collection Time Receive d Time (Source) Location / / Volume Laterality Urine (Urine, 09/28/2017 4:43 PM 09/29/19 18 4:43 Clean Catch) CDT PM CDT Marisel Ferrer M.D. LAB POCT ORDERABLES - DEVICE Performing Organization Address City/[facility]/ZIP Code Phon e Number [facility]- [address] [place] [address] [place] [address] [facility]- [address] [place] [address] [place], [place] [address] Chlamydia / gonorrhoeae Amplified RNA (09/28/2017 4:30 PM CDT) PathTattva gist Method Time Signature Source VAGINA 10/01/2017 [facility] 1:38 PM CDT [facility] Chlamydia Negative Negative 10/01/2017 [facility] trachomatis 1:38 PM CDT [facility] Comment: ----ADDITIONAL INFORMATION---- This report is intended for use in clini kehinde monitoring and management of patients. It is not in tended for use in medical-legal applications. Source vagina 10/01/2017 1:38 PM CDT [facility] Neisseria gonorrhoeae Negative Negative 10/01/2017 1:3 8 PM CDT [facility] amplified [facility] Comment: ----ADDITIONAL INFORMATION---- This report [...] - GEN ERAL ORDERABLES Performing Organization Address City/[facility]/ZIP Code Phon e Number [facility] [address] [place] [address] LAB (ABNORMAL) Vaginitis Panel - [facility] (09/28/2017 4:30 PM CDT) [employer] Method Time Signature Nichol Negative Negative 09/28/2017 [facility] species, DNA 5:36 PM CDT [facility] [place] [facility] Gardnerella Positive (A) Negative 09/28/2017 [facility] vaginalis, DNA 5:36 PM CDT [facility] [place] [facility] Trichomonas Negative Negative 09/28/2017 [facility] vaginalis, DNA 5:[address] [facility] Specimen Anatomical Collection Method Collection Time Receive d Time (Source) Location / / Volume Laterality Swab (Vagina) 09/28/2017 4:30 PM 09/29/19 18 4:46 CDT PM CDT Marisel Ferrer M.D. LAB MICROBIOLOGY - GEN ERAL ORDERABLES Performing Organization Address City/State/ZIP Code Phon e Number [facility]- [address] [place] [address] [facility]- [address] [place] [address] [place] [address] documented in this encounter Visit Diagnoses Diagnosis Pelvic And Perineal Pain - Primary documented in this encounter Additional Health Concerns Assessment Noted Time PHQ-9 Depression Total Score: 15 09/28/2017 3:51 PM CD T documented as of this encounter Care Teams Show Jumping Instructor Relationship Specialty Start Date End Date Kandi Alberts, TATY, C.N.P. PCP - General 07/27/16 07/10/18 [address] [place] [phone] documented as of this encounter
--- OUTSIDE RECORDS SUMMARY | 2021-12-08 16:56 | XMS_ITS | Encounter Summary ---
:1985 [address] Organization [facility] Address [address] [place] [address] Care Team Providers Name Role Phone Kandi Alberts APRN C.N.P. Primary Care Provider [phone] Reason for Visit Auth/Cert Specialty Diagnoses / Procedures Referred By Contact Refer red To Contact Diagnoses Extruded Disc Lumbar Procedures NH LMNOTOMY W DCMPRN 1 SPACE LUMB Decompression Spine - Posterior Lumbar Referral ID Status Reason Start Date Expiration Date Visits Requ ested Visits Authorized [id number] 1 1 Encounter Details Date Type Department Care Team Description 01/07/2018 Surgery RST ROMB MAIN OR Matthias Mtz L5-S1 microdiskectomy nerve [address] [facility] Olu Higgins root decompression. [place], [place] [address] [facility] [address] [place], [place] [phone] Social History Tobacco Use Types Packs/Day Years [...] How often do you attend sikhism or roman catholic Never 01/31/2019 services? Do [...] at Date Recorded Female 01/11/2018 2:20 PM TURBO GENERATOR OILER documented as of this encounter Last Filed Vital Signs Vital Sign Reading Time Taken Comments Blood Pressure 97/55 01/07/2018 5:00 PM TURBO GENERATOR OILER Pulse 74 01/07/2018 5:30 PM TURBO GENERATOR OILER Temperature 36.6 ??C (97.88 ??F) 01/07/2018 3:30 PM TURBO GENERATOR OILER Respiratory Rate 14 01/07/2018 3:30 PM TURBO GENERATOR OILER Oxygen Saturation 98% 01/07/2018 5:30 PM TURBO GENERATOR OILER Inhaled Oxygen Concentration - - Weight 58 kg (127 lb 13.9 oz) 01/07/2018 6:00 AM TURBO GENERATOR OILER Height 168 cm (5' 6.14) 01/07/2018 6:00 AM TURBO GENERATOR OILER Body Mass Index 20.55 01/07/2018 6:00 AM TURBO GENERATOR OILER documented in this encounter Discharge Summaries Billy Mercado M.D. - 01/07/2018 3:41 PM CST DISCHARGE SUMMARY BRIEF OVERVIEW Discharge Provider: Matthias Mtz M.D. Primary Care Providers: Kandi Alberts, TATY, C.N.P. (General) [address] [address] Primary Care Provider Primary Care Provider Other [...] Case IDs Date Procedure Surgeon Location Status [id number] 01/07/18 L5-S1 microdiskectomy nerve root decompression. Matthias [...] were provided to the patient and caregiver(s). O GENERATOR OILER documented in this encounter Medications at Time [...] today with routine follow-up, patient is from [facility] and would like tofollow up for her wound check in [place] Activity: as tolerated, up with assistance Labs: [...] contact the service of Dr. Mtz at [phone] with any questions or concerns regarding management of this patient. O GENERATOR OILER Matthias Mtz M.D. - 01/07/2018 8:21 AM [...] at length. This will be through the [facility] program. After this surgery we can [...] she has been moved to second case. O GENERATOR OILER documented in this encounter H&P Notes Kavin Bailey M.D. - 01/07/2018 2:20 PM CST Post-op: No complication, Awake, not fully alert, Exam as preop with weakness in Left EHL O GENERATOR OILER Bridger Caldwell M.D. - 01/07/2018 7:55 AM [...] to proceed with surgery. All questions answered. O GENERATOR OILER documented in this encounter Consult Notes Roshni [...] ortho - spine Onset Date: 01/07/18 Payor: [facility] / Plan: [employer] [place] [facility] / Product Type: Medicaid HMO / [...] root decompression.; Surgeon: Matthias Mtz M.D.; Location: [facility] [place] OR ??? 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 O GENERATOR OILER documented in this encounter Nursing Notes Jahaira [...] be discharge today. Will continue to monitor. O GENERATOR OILER Salina Mercado R.N. - 01/07/2018 6:20 PM [...] Will continue to monitor as activity increases. O GENERATOR OILER documented in this encounter OR Notes Op [...] generous decompression. We tried to use a [place] 4 to push through the outer margin [...] at length. This will be through the [facility] program. After this surgery we can [...] surgery was identified in accordance with the [facility] protocol. The patient wasthen taken to [...] and draped in usual sterile fashion. A [facility] pause was called. Procedural pause conducted [...] joint, preserving the capsule. I placed a [place] under the targeted facet joint. I obtained [...] implants in log * Matthias Mtz M.D. O GENERATOR OILER Brief Op Note - Kavin Bailey M.D. [...] implants in log * Kavin Bailey M.D. O GENERATOR OILER documented in this encounter Miscellaneous Notes Hospital [...] the patient was discharged from the hospital. O GENERATOR OILER documented in this encounter Plan of Treatment [...] 01/08/2018 3:14 Resul ts for B AM TURBO GENERATOR OILER this procedure are in the results section. CBC WITHOUT Routine 01/08/2018 3:14 Results for DIFFERENTIAL, B AM TURBO GENERATOR OILER this procedu re are in the results section. C-REACTIVE PROTEIN Routine 01/08/2018 3:14 Result s for (CRP), S/P AM TURBO GENERATOR OILER this procedure are in the results section. ADULT OXYGEN THERAPY Routine 01/07/2018 2:30 PM TURBO GENERATOR OILER FL FLUORO LESS THAN RAD - Routine 01/07/2018 2:15 Resu lts for 1 HOUR (most inpatients PM TURBO GENERATOR OILER this proced ure and all are in the outpatients) results section. DECOMPRESSION SPINE 01/07/2018 Stenosis Spinal - POSTERIOR LUMBAR 11:40 AM TURBO GENERATOR OILER Lumbar With Neurogenic Claudication documented in this encounter Results DX Lumbar Spine 2-3 Views (03/27/2018 1:40 PM TURBO GENERATOR OILER) Anatomical Region Laterality Modality Lumbar Spine, Musculoskeletal RST LOS, Neuroradiology N/A Digital Radiography ARZ LOS, Muskuloskeletal FLA LOS Specimen (Source) Anatomical Collection Method Collection Time Re ceived Time Location / / Volume Laterality 03/27/2018 1:46 PM TURBO GENERATOR OILER Impressions 03/27/2018 1:48 PM TURBO GENERATOR OILER IMPRESSION: ??Partial L5-S1 laminectomy on the left. Narrowed lumbosacral interspace with facet arthritis. Mild de generative change left hip with some prominence at the femoral head/neck offs et. Narrative 03/27/2018 1:48 PM TURBO GENERATOR OILER EXAM: ??DX LUMBAR SPINE 2-3 VIEWS Procedure [...] LIZ CRP (C-Reactive Protein) (01/08/2018 3:14 AM TURBO GENERATOR OILER) P athologist Signature C-Reactive 4.5 <=8.0 mg/L 01/08/2018 [facility] Protein (CRP), 4:44 AM TURBO GENERATOR OILER LABORATORIES - [facility] Specimen Anatomical Collection Method Collection Time Receive d Time (Source) Location / / Volume Laterality Blood (Blood, 01/08/2018 3:14 AM 01/09/20 18 4:08 Venous) TURBO GENERATOR OILER AM TURBO GENERATOR OILER Billy Mercado M.D. LAB BLOOD ADD-ON Performing Organization Address City/State/ZIP Code Phon e Number [facility] LABORATORIES - [address] [place], [place] [address] [facility] Sedimentation Rate (01/08/2018 3:14 AM TURBO GENERATOR OILER) Patholo gist Method Time Signature Sedimentation 7 0 - 29 01/08/2018 [facility] Rate, B mm/1 h 5:14 AM TURBO GENERATOR OILER LABORATORIES - [facility] Specimen Anatomical Collection Method Collection Time Receive d Time (Source) Location / / Volume Laterality Blood (Blood, 01/08/2018 3:14 AM 01/09/20 18 4:04 Venous) TURBO GENERATOR OILER AM TURBO GENERATOR OILER Billy Mercado M.D. LAB BLOOD ADD-ON Performing Organization Address [facility] Phon e Number [facility] LABORATORIES - [address] [place] [phone] [facility] (ABNORMAL) CBC without Differential (01/08/2018 3:14 AM TURBO GENERATOR OILER) [facility] gist Method Time Signature Hemoglobin 11.8 11.6 - 01/08/2018 [facility] 15.0 g/dL 4:16 AM [facility] Hematocrit 35.7 35.5 - 01/08/2018 [facility] 44.9 % 4:16 AM [facility] Erythrocytes 4.07 3.92 - 01/08/2018 [facility] 5.13 4:16 AM TURBO GENERATOR OILER LABORATORIES - x10(12)/L [facility] MCV 87.7 78.2 - 01/08/2018 [facility] 97.9 fL 4:16 AM [facility] RBC Distrib 11.6 (L) 12.2 - 01/08/2018 [facility] Width 16.1 % 4:16 AM [facility] Platelet Count 226 157 - 371 01/08/2018 [facility] x10(9)/L 4:16 AM [facility] Leukocytes 14.6 (H) 3.4 - 9.6 01/08/2018 [facility] x10(9)/L 4:16 AM [facility] Specimen Anatomical Collection Method Collection Time Receive d Time (Source) Location / / Volume Laterality Blood (Blood, 01/08/2018 3:14 AM 01/09/20 18 4:08 Venous) TURBO GENERATOR OILER AM TURBO GENERATOR OILER Billy Mercado M.D. LAB BLOOD ADD-ON Performing Organization Address City/[facility] Code Phon e Number [facility]IES - [address] [place] [phone] [facility] [place] Fluoro Less Than 1 Hour (01/07/2018 2:15 PM TURBO GENERATOR OILER) Specimen (Source) Anatomical Location Collection Method / Collectio n Time Received Time / Laterality Volume Narrative 152 HOS LOS RST - 01/07/2018 2:15 PM TURBO GENERATOR OILER This exam does not require a radiologist review or interpretation. Please refer to the patient's medical record on this date for clinical details. Billy Mercado M.D. IMG FLUOROSCOPY PROCEDURES Performing Organization Address City/[facility] Phon e Number 152 HOS LOS RST [...] tablet 1,000 mg Given 01/07/2018 7:14 AM TURBO GENERATOR OILER 1,000 mg (TYLENOL) 1,000 mg, oral, Once, On Sun01/07/18 at 0615, For 1 dose, Pre-Op, In PreOp holding (PWA) acetaminophen tablet 1,000 mg (TYLENOL) Given 01/08/2018 8:06 AM TURBO GENERATOR OILER 1,000 mg 1,000 mg, oral, 4 times daily, First dose on Sun01/07/18 at 1700, Not to exceed 4 grams in 24 hours. Given 01/07/2018 8:04 PM TURBO GENERATOR OILER 1,000 mg Given 01/07/2018 5:42 PM TURBO GENERATOR OILER 1,000 mg bupivacaine liposome (PF) 266 mg/20 mL Given 01/07/2018 2:04 PM TURBO GENERATOR OILER 20 mL Back (13.3 mg/mL) injection 20 mL (EXPAREL) 20 mL, infiltration, Once in surgery, OR use only, Starting on Sun01/07/18 at 0739, For 1 dose, Intra-Op buPROPion 12 hr tablet 200 mg (WELLBUTRI N SR) Given 01/08/2018 8:05 AM TURBO GENERATOR OILER 200 mg 200 mg, oral, Daily, First dose on Sun01/08/18 at 0900, Swallow whole. Do NOT crush, chew, or split tablet. ceFAZolin in dextrose (iso-os) IVPB 2 New Bag 01/08/2018 4:58 AM TURBO GENERATOR OILER 2 g 200 mL/hr g (ANCEF) 2 g, intravenous, at 200 mL/hr, Administer over 30 Minutes, Every 8 hours, First dose on Sun01/07/18 at 2000, For 2 doses, Start within 8 hours of last IV dose. premix, Drug Monitoring Program: Pharmacist to adjust medication dosing based on indication and drug clearance factors., Indications: Prophylaxis, surgical New Bag 01/07/2018 7:34 PM TURBO GENERATOR OILER 2 g 200 mL/hr fentaNYL injection 25 mcg (SUBLIMAZE) Given 01/07/2018 2:34 PM TURBO GENERATOR OILER 25 mcg 25 mcg, intravenous, Every 2 min PRN, For pain 4 or greater (maximum 100 mcg). If max dose of Fentanyl is reached and if pain is greater than 4, discontinue Fentanyl: give Hydromorphone, Starting on Sun01/07/18 at 1429, PACU (only) gabapentin capsule 300 mg (NEURONTIN) Given 01/07/2018 7:14 AM TURBO GENERATOR OILER 300 mg 300 mg, oral, Once, On Sun01/07/18 at 0615, For 1 dose, Pre-Op, preprocedure on unit with sips, Drug Monitoring Program: Pharmacist to adjust medication dosing based on indication and drug clearance factors. gabapentin capsule 300 mg (NEURONTIN) Given 01/07/2018 8:04 PM TURBO GENERATOR OILER 300 mg 300 mg, oral, Daily at bedtime, First dose on Sun01/07/18 at 2100 gelatin absorbable powder (GELFOAM) Given 01/07/2018 1:35 PM TURBO GENERATOR OILER 1 g Back As needed, Starting on Sun01/07/18 at 1335, Intra-Op ibuprofen tablet 600 mg (ADVIL,MOTRIN) 600 mg, oral, Every 6 hours, First dose on Sun 8 at 1600, Start 6 hours after last ketorolac dose administered ketorolac injection 15 mg (TORADOL) Given 01/08/2018 4:58 AM TURBO GENERATOR OILER 15 mg 15 mg, intravenous, Every 6 hours, First dose on Sun01/07/18 at 1600, For 4 doses, Start no sooner than 6 hours after last intra-operative dose Adult IV push rate: Over 15 seconds. Peds IV push rate: Over 1 minute. 60 mg dose only for IM, not recommended for IV. Given 01/07/2018 10:47 PM TURBO GENERATOR OILER 15 mg Given 01/07/2018 3:57 PM TURBO GENERATOR OILER 15 mg lactated ringers New Bag 01/07/2018 3:34 PM TURBO GENERATOR OILER 100 mL/hr 100 mL/hr 100 mL/hr, intravenous, Continuous, Starting on Sun01/07/18 at 1415, PACU & Post-Op methylPREDNISolone acetate injection Given 01/07/2018 1:55 PM CS T 40 mg Back (DEPO-Medrol) As needed, Starting on Sun01/07/18 at 1355, Intra-Op oxyCODONE IR tablet 10 mg (ROXICODONE) Given 01/08/2018 12:22 AM TURBO GENERATOR OILER 10 mg 10 mg, oral, Every 4 hours PRN, severe pain or score 7-10 of 10, or pain greater than comfort goal if other analgesics fail, Starting on Sun01/07/18 at 1532, Maximum dose of 10 mg in 4 hours. Given 01/07/2018 8:04 PM TURBO GENERATOR OILER 10 mg oxyCODONE IR tablet 5 mg (ROXICODONE) Given 01/08/2018 8:06 AM TURBO GENERATOR OILER 5 mg 5 mg, oral, Every 4 hours PRN, moderate pain or score 4-6 of 10, if other analgesics fail, Starting on Sun01/07/18 at 1532, Maximum dose of 10 mg in 4 hours povidone iodine 0.25% in NaCl 0.9% Given 01/07/2018 1:47 PM TURBO GENERATOR OILER 1,000 mL Back irrigation solution 1,000 mL 1,000 mL, irrigation, Once in surgery, OR use only, Starting on Sun01/07/18 at 0739, For 1 dose, Intra-Op sennosides-docusate sodium 8.6-50 mg per Given 01/07/2018 8:03 P M TURBO GENERATOR OILER 1 tablet tablet 1 tablet (SENOKOT-S) 1 tablet, oral, 2 times daily, First dose on Sun01/07/18 at 2100, for constipation vancomycin powder 1 g Given 01/07/2018 1:55 PM TURBO GENERATOR OILER 1 vial Back 1 g (1 vial), topical, Once in surgery, OR use only, Starting on Sun01/07/18 at 0739, For 1 dose, Intra-Op, Do not reconstitute documented in this encounter Active and Recently Administered Medications Times are shown in TURBO GENERATOR OILER. Scheduled Medication Order 01/06/2018 01/07/2018 01/08/2018 acetaminophen [...] 1230 (Given - Provider: Fransisco Wright APRN, PARALEGAL LEGAL SECRETARY, D.N.P.) 2,000 mg (rounded from 1,450 mg [...] (New Bag - Provider: Fransisco Wright APRN, PARALEGAL LEGAL SECRETARY, D.N.P.) 2 mg/kg/hr ? 58.7 kg Order-specific [...] (New Bag - Provider: Fransisco Wright APRN, PARALEGAL LEGAL SECRETARY, D.N.P.) 600 mg (rounded from 587 mg [...] documented as of this encounter Care Teams Battery Filler Relationship Specialty Start Date End Date Kandi Alberts, TATY, C.N.P. PCP - General 07/27/16 07/10/[address] [address] documented as of this encounter
--- OUTSIDE RECORDS SUMMARY | 2021-12-08 16:56 | XMS_ITS | Encounter Summary ---
:1985 Author Organization [facility] Address [address] [place] [address] Care Team Providers Name Role Phone Kandi Alberts APRN, C.N.P. Primary Care Provider [phone] Encounter Details Date Type Department Care Team [...] How often do you attend protestant or hinduism Never 01/31/2019 services? 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/2018 2:20 PM POULTRY CLEANER documented as of this encounter Plan of Treatment Not on filedocumented as of this encounter Visit Diagnoses Not on filedocumented in this encounter Additional Health Concerns Assessment Noted Time PHQ-9 Depression Total Score: 15 09/28/2017 3:51 PM CD T documented as of this encounter Care Teams Certified Fire Investigator Relationship Specialty Start Date End Date Kandi Alberts, TATY, C.N.P. PCP - General 07/27/16 07/10/18 [address] [address] documented as of this encounter
--- OUTSIDE RECORDS SUMMARY | 2021-12-08 16:56 | XMS_ITS | Encounter Summary ---
:1985 Author Organization [facility] Address [address] [place] [address] Care Team Providers Name Role Phone Kandi Alberts APRN C.N.P. Primary Care Provider [phone] Encounter Details Date Type Department Care Team Description 01/15/2018 Documentation Department of Orthopedic Ginger Diaz, Surgery in [facility], [place] [address] [address] [facility] [address] [place] [address] [phone] (Wo rk) Social History Tobacco Use Types [...] How often do you attend jew or latter-day Never 01/31/2019 services? Do you [...] Date Recorded Female 01/11/2018 2:20 PM QUALITY TESTER documented as of this encounter Progress Notes [...] follow-up visit tomorrow, 01/16/18, with Dr. Mtz. ITY TESTER documented in this encounter Plan of Treatment Not on filedocumented as of this encounter Visit Diagnoses Not on filedocumented in this encounter Additional Health Concerns Assessment Noted Time PHQ-9 Depression Total Score: 15 09/28/2017 3:51 PM CD T documented as of this encounter Care Teams Securities Teller Relationship Specialty Start Date End Date Kandi Alberts, TATY, C.N.P. PCP - General 07/27/16 07/10/18 [address], [place] [address] documented as of this encounter
--- OUTSIDE RECORDS SUMMARY | 2021-12-08 16:57 | XMS_ITS | Encounter Summary ---
:1985 Author Organization [facility] Address [address] [place] [address] Care Team Providers Name Role Phone Unavailable Primary Care Provider Unavailable Encounter Details Date Type Department Care Team Description 12/25/2014 Hospital Encounter HX [facility] Kandi Alberts A PRN, C.N.P. [address] [place], [place] [address] (Wo rk) Social History [...] How often do you attend baptist or lutheran Never 01/31/2019 services? Do you [...] Date Recorded Female 01/11/2018 2:20 PM MANAGER ORDER documented as of this encounter Last Filed Vital Signs Vital Sign Reading Time Taken Comments Blood Pressure - - Pulse - - Temperature - - Respiratory Rate - - Oxygen Saturation - - Inhaled Oxygen Concentration - - Weight - - Height 162 cm (5' 3.78) 12/25/2014 9:22 AM MANAGER ORDER Body Mass Index - - documented in this encounter Plan of Treatment Not on filedocumented as of this encounter Procedures Procedure Name Priority Date/Time Associated Comments Diagnosis COMPREHENSIVE Routine 12/25/2014 10:12 Results fo r this METABOLIC PANEL, S/P AM MANAGER ORDER procedu re are in the results section. documented in this encounter Results (ABNORMAL) CMP (Comprehensive Metabolic Panel) (12/25/2014 10:12 AM MANAGER ORDER) [facility] gist Method Time Signature Alkaline 61 [...] POWERCHART GDL HXeGFR (MDRD) >60 >=60 POWERCHART [id number] 2 eGFR Black/ >60 >=60 POWERCHART [place] [id number] 2 Specimen (Source) Anatomical Collection Method Collection Time Re ceived Time Location / / Volume Laterality Blood 12/25/2014 10:12 AM MANAGER ORDER Kandi Alberts APRN, C.N.P. LAB BLOOD ADD-ON Performing Organization Address City/State/ZIP Code Phon e Number POWERCHART documented in this encounter Visit Diagnoses Not on filedocumented in this encounter Additional Health Concerns Assessment Noted Time PHQ-9 Depression Total Score: 18 12/24/2014 2:32 PM CS T documented as of this encounter
--- OUTSIDE RECORDS SUMMARY | 2021-12-08 16:57 | XMS_ITS | Encounter Summary ---
:1985 Author Organization [facility] Address [address] [place] [address] Care Team Providers Name Role Phone Unavailable Primary Care Provider Unavailable Encounter Details Date Type Department Care Team Description 12/25/2014 Hospital Encounter [facility]X [facility] Michael Alberts A PRN, C.N.P. [address] [place], [place] [phone] (Wo rk) Social History [...] How often do you attend shinto or mormonism Never 01/31/2019 services? Do you belong to [...] Recorded Female 01/11/2018 2:20 PM METER READER documented as of this encounter Last Filed Vital Signs Vital Sign Reading Time Taken Comments Blood Pressure - - Pulse - - Temperature - - Respiratory Rate - - Oxygen Saturation - - Inhaled Oxygen Concentration - - Weight - - Height 162 cm (5' 3.78) 12/25/2014 9:22 AM METER READER Body Mass Index - - documented in this encounter Miscellaneous Notes Miscellaneous - Michael Alberts, TATY, C.N.P. - 12/28/2014 8:08 AM CST Normal Results Letter 28 December 2014 WENDI ALEXANDER [id number] [facility] [place] [phone] Dear WENDI ALEXANDER, I am pleased to [...] 150 - 450 Sincerely, MICHAEL ALBERTS [address] [place] [address] Electronic Signature Electronically Signed By: MICHAEL ALBERTS [facility] On: 28 December 2014 This document has images extracted. Source: [facility] POWERCHART Document Id: [id number] Electronically signed by Komal [facility] Mica Sizer [id number] at 07/10/2016 7:24 AM CDT documented in this encounter Plan of Treatment Not on filedocumented as of this encounter Procedures Procedure Name Priority Date/Time Associated Diagnosis Comme nts LIPID PANEL, S Routine 12/25/2014 10:12 AM Result s for this METER READER procedure are i n the results section. CBC WITHOUT Routine 12/25/2014 10:12 AM Results for this DIFFERENTIAL, B METER READER procedure ar e in the results section. THYROID-STIMULATING Routine 12/25/2014 10:12 AM R esults for this HORMONE-SENSITIVE METER READER procedure are in (S-TSH) the results section. documented in this encounter Results CBC without Differential (12/25/2014 10:12 AM METER READER) athologist Signature Leukocytes 4.6 3.4 - 10.5 POWERCHART X109L Erythrocytes 4.52 3.90 - 5.03 POWERCHART [id number] Hemoglobin 13.3 12.0 - 15.5 POWERCHART GDL Hematocrit 39.7 34.9 - 44.5 POWERCHART MCV 87.8 82.0 - 98.0 POWERCHART FL Platelet Count 222 150 - 450 POWERCHART X109L HX RDW 12.3 11.9 - 15.5 POWERCHART Specimen (Source) Anatomical Collection Method Collection Time Re ceived Time Location / / Volume Laterality Blood 12/25/2014 10:12 AM METER READER Michael Alberts APRN, C.N.P. LAB BLOOD ADD-ON Performing Organization Address City/State/ZIP Code Phon e Number POWERCHART Thyroid-Stimulating Hormone-Sensitive (s-TSH) (12/25/2014 10:12 AM METER READER) athologist Signature TSH 1.58 0.27 - 4.20 POWERCHART (Thyrotropin) MIUL Specimen (Source) Anatomical Collection Method Collection Time Re ceived Time Location / / Volume Laterality Blood 12/25/2014 10:12 AM METER READER Michael Alberts APRN, C.N.P. LAB BLOOD ADD-ON Performing Organization Address City/State/ZIP Code Phon e Number POWERCHART (ABNORMAL) Lipid Panel (12/25/2014 10:12 AM METER READER) athologist Signature Calculated LDL 119 <=129 MGDL [...] FH and FDB is available lisbeth ramirez [facility]: FH/ADH Genetic Reflex Kaur el (test ADHP). Acquired (non-genetic) causes of markedly increased LDL cholesterol include cholestatic liver disease due to the presence of LpX. If a genetic form of hypercholesterolemia is suspected, family studies including biochemical testing fo r lipids (total cholesterol,triglycerides, LDL cholesterol and HDL cholesterol) are recommended. ??Please contact the laboratory at or the on-line test catalog at [employer] for information about how to order these [...] Laterality Blood 12/25/2014 10:12 AM METER READER Michael Alberts APRN, C.N.P. LAB BLOOD ADD-ON Performing Organization Address City/State/ZIP Code Phon e Number POWERCHART documented in this encounter Visit Diagnoses Not on filedocumented in this encounter Additional Health Concerns Assessment Noted Time PHQ-9 Depression Total Score: 18 12/24/2014 2:32 PM CS T documented as of this encounter
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
--- OUTSIDE RECORDS SUMMARY | 2021-12-08 16:57 | XMS_ITS | Encounter Summary ---
:[address] [facility] Address [address] [place] [address] Care Team Providers Name Role Phone Unavailable Primary Care Provider Unavailable Encounter Details Date Type Department Care Team Description 08/14/2013 Hospital Encounter [facility]X [facility] Emily Robertson Jr., M.D. [address], [place] [phone] (Wo rk) Social History [...] often do you attend jehovah's witness or roman catholic Never 01/31/2019 services? Do [...] Date Recorded Female 01/11/2018 2:20 PM CLINICAL RESEARCH MANAGEMENT ASSOCIATE documented as of this encounter Last [...] Jr., M.D. - 08/14/2013 10:13 AM CDT [id number] CHIEF COMPLAINT/REASON FOR VISIT OB transfer of care, per Liseth Perry CNP. HISTORY OF PRESENT ILLNESS Wendi is 28-year-old 6, para 2-0-3-2 female at unknown gestational age who presents to the clinic for OB transfer of care, per Liseth Perry CNP. She had confirmation at [facility] on 07/24/2013 and they estimated that she [...] status. She was also previously seen at [facility] approximately 2 weeks ago for heavy vaginal bleeding and clotting. She did have RhoGAM administered at that time. Bleeding has since resolved, but she is still having some abdominal cramping. Wendi believes that she has had routine labs done at [facility], but she has not had any previous [...] or fever. She did receive RhoGAM at [facility] 2 weeks ago. The possibility [...] their behalf by Latanya Murray, a trained director medical affairs. The creation of this record is based on the scribe's personal observations and the provider's statements to them. This document has been ch ecked and approved by the attending provider. Emily Gomez M.D./dilip Electronically Signed By: EMILY GOMEZ MD On: 08/14/2013 02:21 PM Source: [facility] MHSDOLBEYNONRADSYS Document Id: [id number] documented in this encounter Miscellaneous Notes Miscellaneous - Emily Gomez Jr., M.D. - 08/14/2013 11:20 AM CDT Ambulatory Patient Summary [address] [id number] Visit Information Name: WENDI ODONNELL [facility] Number: [id number] Current Date: 08/14/2013 11:20:02 [...] appointment detail needed. Your Goals/Additional instructions: Source: [facility] POWERCHART Document Id: [id number] Miscellaneous - Emily Gomez Jr., M.D. - 08/14/2013 11:20 AM CDT Ambulatory Discharge Medication List [address] [id number] Visit Information Name: WENDI ODONNELL [facility] Number: [id number] Visit Date: 08/14/2013 11:20:00 [...] MD Signed On:14-AUG-2013 11:19:38 Additional Information: Source: [facility] POWERCHART Document Id: [id number] Miscellaneous - Adán Ward L.P.N. - 08/14/2013 10:51 AM CDT Adult Hook Tender Intake/History Adult Hook Tender Intake/History Entered On: 08/14/2013 10:53 CDT Performed [...] Preferred Communication Mode : Verbal Languages : Luxembourger ADÁN WARD LPN - 08/14/2013 10:51 CDT Subjective Pain Symptoms : Yes ADÁN WARD LPN - 08/14/2013 10:51 CDT Pain Pain Assessment Grid Pain 1 Location : Abdomen (Comment: cramps [ADÁN WARD LPN - 08/14/2013 10:51 CDT] ) Laterality : Bilateral ADÁN WARD LPN - 08/14/2013 10:51 CDT Dependent Habits Tobacco Use/Currently Using : No Smoking Status : Never smoker ADÁN WARD Eliel JUNIOR DATA ANALYST - 08/14/2013 10:51 CDT Caffeine Use Grid Caffeine Use : Current Type : Energy drinks Frequency : Weekly Amount : 1 ADÁN WARD Eliel BARTON - 08/14/2013 10:51 CDT [facility] Document Id: [id number] CDT!35 documented in this encounter Plan of [...] athologist Signature HXN gonor Amp Negative POWERCHART DNA-[place] Specimen (Source) Anatomical Collection Method Collection Time Re ceived Time Location / / Volume Laterality 08/14/2013 11:30 AM CDT Narrative POWERCHART - 08/16/2013 8:35 PM CDT Test Performed by: [place] [address] Heavy Equipment Supervisor: Delano bella, IIIOlu Emily Gomez Jr., M.D. LAB HISTORICAL ORDERS Performing Organization Address City/State/ZIP Code Phon e Number POWERCHART HX-N gonor Amp Src (08/14/2013 11:30 AM CDT) athologist Signature HXN gonor Amp Urine POWERCHART Src-[place] Specimen (Source) Anatomical Collection Method Collection Time Re ceived Time Location / / Volume Laterality 08/14/2013 11:30 AM CDT Emily Gomez Jr., M.D. LAB HISTORICAL ORDERS Performing Organization Address City/State/ZIP Code Phon e Number POWERCHART HX-C trach Amp RNA (08/14/2013 11:30 AM CDT) [facility] gist Method Time [facility] Chlamydia Negative POWERCHART trachomatis amplified RNA Specimen [...] BANK TEST ORDERABL ES Performing Organization Address City/[facility]/ZIP Code Phon e Number POWERCHART Grouping and Rh-[place] FLIP, see #[id number] (08/14/2013 11:30 AM CDT) [facility] gist Method Time Signature HX Grouping A Negative POWERCHART and Rh Specimen (Source) Anatomical Collection Method Collection Time Re ceived Time Location / / Volume Laterality 08/14/2013 11:30 AM CDT Emily Gomez Jr., M.D. LAB BLOOD BANK TEST ORDERABL ES Performing Organization Address City/[facility]/ZIP Code Phon e Number POWERCHART Automated Differential [...] X109L Erythrocytes 4.50 3.90 - POWERCHART 5.03 [id number] Hemoglobin 13.2 12.0 - POWERCHART 15.5 GDL [...] as a possible source. Test Performed by: [place] [address] Heavy Equipment Supervisor: Delano bella III, M.D. Specimen Anatomical Collection Method Collection Time Receive d Time (Source) Location / / Volume Laterality Blood 08/14/2013 11:30 08/15/2013 AM CDT 10:06 AM CDT Historical Provider LAB BLOOD BANK TEST ORDERABL ES Performing Organization Address City/[facility]/ZIP Code Phon e Number POWERCHART bHCG (Beta-Human Chorionic Gonadotropin), Quantitative (08/14/2013 11:30 AM CDT) [facility] gist Method Time Signature Beta-HCG, Separate POWERCHART Quantitative, Report S Specimen (Source) Anatomical Collection Method Collection Time Re ceived Time Location / / Volume Laterality Blood 08/14/2013 11:30 AM CDT Emily Gomez Jr., M.D. LAB BLOOD ADD-ON Performing Organization Address City/[facility]/ZIP Code Phon e Number POWERCHART Profile II without CBC/Serum (08/14/2013 11:30 AM CDT) athologist Signature HX Rubella Positive POWERCHART IgG-[place] Comment: Results suggest response to immunization or prior exposure to the virus. -- REFERENCE VALUE -- Vaccinated: Positive (>=1.0 AI) Unvaccinated: Negative (<=0.7 AI) Rubella IgG Antibody Index 2.7 POW ERCHART Syphilis IgG Ab, S Negative Negative POWERCHART Comment: No serologic evidence of exposu re to syphilis. HBs Antigen, S Negative Negative POWERCHART Comment: Test Performed by: [facility] [address] [place] [address] Heavy Equipment Supervisor: Delano bella III, M.D. Specimen (Source) Anatomical Collection Method Collection Time Re ceived Time Location / / Volume Laterality Blood 08/14/2013 11:30 AM CDT Emily Gomez Jr., M.D. LAB BLOOD NON ADD-ON Performing Organization Address City/State/ZIP Code Phon e Number POWERCHART Thyroid-Stimulating Hormone-Sensitive (s-TSH) (08/14/2013 11:30 AM CDT) P athologist Signature TSH, Sensitive 1.2 0.3 - 5.0 POWERCHART MIUL Comment: Test Performed by: [facility] [address] [place] [address] Heavy Equipment Supervisor: Delano bella III, M.D. Specimen (Source) Anatomical [...] HIV-2 DNA/RNA test (FHV2Q). Test Performed by: [facility] [address] [place] [address] Heavy Equipment Supervisor: Delano bella III, M.D. Specimen (Source) Anatomical Collection Method Collection Time Re ceived Time Location / / Volume Laterality Blood 08/14/2013 11:30 AM CDT Emily Gomez Jr., M.D. LAB MICROBIOLOGY - BLOOD ORD ERABLES Performing Organization Address City/[facility] Code Phon e Number POWERCHART [...] within this r hoa. Test Performed by: [place] [id number] Heavy Equipment Supervisor: Delano bella III, M.D. Specimen (Source) Anatomical Collection Method Collection Time Re ceived Time Location / / Volume Laterality Blood 08/14/2013 11:30 AM CDT Emily Gomez Jr., M.D. LAB BLOOD ADD-ON Performing Organization Address City/State/[facility] Code Phon e Number POWERCHART documented in this encounter Visit Diagnoses Not on filedocumented in this encounter Additional Health Concerns Assessment Noted Time PHQ-9 Depression Total Score: 18 06/21/2009 11:24 AM C DT documented as of this encounter
--- OUTSIDE RECORDS SUMMARY | 2021-12-08 16:57 | XMS_ITS | Encounter Summary ---
:1985 Author Organization [facility] Address [address] [place] [address] Care Team Providers Name Role Phone Unavailable Primary Care Provider Unavailable Encounter Details Date Type Department Care Team Description 12/24/2014 Hospital Encounter HX NO MAPPING Kandi Alberts, TATY, C.N.P. [address] [place], [place] [phone] (Wo rk) Social History [...] How often do you attend sikhism or muslim Never 01/31/2019 services? 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/2018 2:20 PM SPUD GRADER documented as of this encounter Miscellaneous Notes Miscellaneous - Conversion, Historical Provider Ser - 12/24/2014 11:59 PM SPUD GRADER Coding Summary-Paper Based CODING DATE: 01/07/2015 FINAL [facility] STATUS: * Discharged to Home [...] JOAQUIN Date Saved: 01/07/2015 05:21 pm Source: Jaco Solarsi Document Id: [id number] documented in this encounter Plan of Treatment Not on filedocumented as of this encounter Visit Diagnoses Not on filedocumented in this encounter Additional Health Concerns Assessment Noted Time PHQ-9 Depression Total Score: 18 12/24/2014 2:32 PM CS T documented as of this encounter
--- OUTSIDE RECORDS SUMMARY | 2021-12-08 16:57 | XMS_ITS | Encounter Summary ---
:1985 Author Organization [facility] Address [address] [place] [address] Care Team Providers Name Role Phone Unavailable Primary Care Provider Unavailable Encounter Details Date Type Department Care Team Description 07/14/2015 Hospital Encounter HX NO MAPPING Kandi Alberts, TATY, C.N.P. [address] [place], [place] [phone] (Wo rk) Social History [...] 11/27/2019 relatives? How often do you attend worship or uatsdin Never 01/31/2019 services? 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 documented as of this encounter Miscellaneous Notes Miscellaneous - Conversion, Historical Provider Ser - 07/14/2015 11:59 PM CDT Coding Summary-Paper Based CODING DATE: 07/27/2015 FINAL [facility] STATUS: * Discharged to Home or Self [...] HILTON Date Saved: 07/27/2015 04:23 pm Source: [facility] Document Id: [id number] documented in this encounter Plan of Treatment Not on filedocumented as of this encounter Visit Diagnoses Not on filedocumented in this encounter Additional Health Concerns Assessment Noted Time PHQ-9 Depression Total Score: 19 01/20/2015 2:44 PM CS T documented as of this encounter
--- OUTSIDE RECORDS SUMMARY | 2021-12-08 16:57 | XMS_ITS | Encounter Summary ---
:1985 Author Organization [facility] Address [address] [place] [address] Care Team Providers Name Role Phone Unavailable Primary Care Provider Unavailable Encounter Details Date Type Department Care Team Description 03/18/2012 Hospital Encounter HX [facility] Shayne Woody M.D. [address], [place] [phone] (Wo rk) Social History [...] How often do you attend anabaptist or baptist Never 01/31/2019 services? 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/2018 2:20 PM DEAN OF GIRLS documented as of this encounter Last Filed Vital Signs Vital Sign Reading Time Taken Comments Blood Pressure 112/62 03/18/2012 2:51 PM DEAN OF GIRLS Pulse - - Temperature - - Respiratory Rate - - Oxygen Saturation - - Inhaled Oxygen Concentration - - Weight 62.7 kg (138 lb 3.7 oz) 03/18/2012 2:51 PM DEAN OF GIRLS Height - - Body Mass Index 25.12 02/12/2012 1:41 PM DEAN OF GIRLS documented in this encounter Progress Notes Joy Shannon M.D. - 03/18/2012 2:47 PM CST [id number] CHIEF COMPLAINT/REASON FOR VISIT OB followup HISTORY [...] SHANNON MD On: 03/19/2012 03:28 PM Source: [facility] MHSDOLBEYNONRADSYS Document Id: [id number] OF GIRLS documented in this encounter Procedure Notes Conversion, Historical Provider Ser - 03/18/2012 2:56 PM CST Urine Dipstick Urine Dipstick Entered On: 03/18/2012 14:56 DEAN OF GIRLS Performed On: 03/18/2012 14:56 DEAN OF GIRLS by LISA, ZURDO A Urine Dipstick UA Color POC : Yellow UA Appear POC : Clear UA Protein POC : Trace UA Glucose POC : Negative ZURDO GONZALEZ - 03/18/2012 14:56 DEAN OF GIRLS Source: [facility] POWERCHART Document Id: [id number] Joy Shannon M.D. - 03/18/2012 12:00 AM [...] SHANNON MD On: 03/19/2012 03:27 PM Source: [facility] MHSDOLBEYNONRADSYS Document Id: [id number] OF GIRLS documented in this encounter Miscellaneous Notes Miscellaneous - Gertrudis Baltazar R.N. - 03/21/2012 8:39 AM CST Medication Refill Msg Document Contains Addenda Addendum by GERTRUDIS ELLISON on 21 March 2012 10:15:29 DEAN OF GIRLS Called and informed the patient, thanks. Addendum by JOY SHANNON MD on 21 March 2012 09:58:36 DEAN OF GIRLS From: JOY SHANNON MD To: GERTRUDIS ELLISON; Sent: 03/21/2012 09:58:36 DEAN OF GIRLS Subject: RE: Medication Refill Msg She should have 2 more refills of that on the original rx. Addendum by GERTRUDIS ELLISON on 21 March 2012 09:49:53 DEAN OF GIRLS From: GERTRUDIS ELLISON To: JOY SHANNON MD; Sent: 03/21/2012 09:49:53 DEAN OF GIRLS Subject: RE: Medication Refill Msg Pt. stated that she requested the Amoxicillin by accident and she actually meant to request a refillof Vitamins (not on our protocol to fill). Please advise, thank you. Addendum by JOY SHANNON MD on 21 March 2012 09:43:08 DEAN OF GIRLS From: JOY SHANNON MD To: GERTRUDIS ELLISON; Sent: 03/21/2012 09:43:08 DEAN OF GIRLS Subject: RE: Medication Refill Msg I will not refill this rx. The patient's sinusitis should be adequately treated with a 7 day course of antibiotics, which the patient has already had. If her symptoms are still present, she needs to see me. Please inform the patient. 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 - 03/18/2012 5:22 PM CST [place] [address] Visit Information Name: WENDI ODONNELL [facility] Number: [id number] Visit Date: 03/18/2012 17:22:08 Attending [...] your provider for clarification. Additional Information: Source: [facility] POWERCHART Document Id: [id number] OF GIRLS Joy Sapp M.D. - 03/18/2012 5:22 PM CST [place] [address] Visit Information Name: WENDI ODONNELL [facility] Number: [id number] Visit Date: 03/18/2012 17:22:09 Attending [...] for clarification. 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 Intake/History Entered On: 03/18/2012 14:52 DEAN OF GIRLS Performed On: 03/18/2012 14:51 DEAN OF GIRLS by ZURDO GONZALEZ Intake Chief Complaint : ob visit 38+2 Systolic Blood Pressure : 112mmHg Diastolic Blood Pressure : 62mmHg NIBP Mean : 79mmHg BP Location : Left upper extremity Blood Pressure Cuff Size : Regular Actual Weight : 62.7kg(Converted to: 138lb 4oz) Dosing Weight Clinic : 62.70kg ZURDO GONZALEZ - 03/18/2012 14:51 DEAN OF GIRLS Subjective Pain Symptoms : No ZURDO GONZALEZ - 03/18/2012 14:51 DEAN OF GIRLS Dependent Habits Tobacco Use/Currently Using : No Tobacco Use/Last 12 months : No Smoking Status : Never smoker ZURDO GONZALEZ - 03/18/2012 14:51 DEAN OF GIRLS Caffeine Use Grid Caffeine Use : Current Type : Energy drinks Frequency : Weekly Amount : 1 ZURDO GONZALEZ - 03/18/2012 14:51 DEAN OF GIRLS Allergy Allergies (Active) NKA Estimated Onset Date: Unspecified ; Created By: SOTERO COLEMAN LPN; Reaction Status: Active ; Category: Drug ; Substance: NKA ; Type: Allergy ; Updated By: SOTERO COLEMAN LPN; Source: Family ; Reviewed Date: 03/04/2012 10:18 DEAN OF GIRLS Source: [facility] POWERCHART Document Id: [id number] documented in this encounter Plan of Treatment Not on filedocumented as of this encounter Procedures Procedure Name Priority Date/Time Associated Diagnosis Comme nts HX UA GLUCOSE POC Routine 03/18/2012 2:56 PM Resu lts for this DEAN OF GIRLS procedure are i n the results section. HX UA APPEAR POC Routine 03/18/2012 2:56 PM Resul ts for this DEAN OF GIRLS procedure are i n the results section. DIPSTICK, POCT, U Routine 03/18/2012 2:56 PM Resu lts for this (DIPC1) DEAN OF GIRLS procedure are i n the results section. DIPSTICK, POCT, U Routine 03/18/2012 2:56 PM Resu lts for this (DIPC1) DEAN OF GIRLS procedure are i n the results section. documented in this encounter Results HX UA GLUCOSE POC (03/18/2012 2:56 PM DEAN OF GIRLS) P athologist Signature Glucose, POCT, Negative POWERCHART U Specimen (Source) Anatomical Collection Method Collection Time Re ceived Time Location / / Volume Laterality 03/18/2012 2:56 PM DEAN OF GIRLS Historical Provider LAB HISTORICAL ORDERS Performing Organization Address City/State/ZIP Code Phon e Number POWERCHART Dipstick, POCT, Urine (lab) (03/18/2012 2:56 PM DEAN OF GIRLS) P athologist Signature Protein, POCT, Trace POWERCHART U Specimen (Source) Anatomical Collection Method Collection Time Re ceived Time Location / / Volume Laterality 03/18/2012 2:56 PM DEAN OF GIRLS Historical Provider LAB POCT ORDERABLES - DEVICE Performing Organization Address City/State/ZIP Code Phon e Number POWERCHART HX UA APPEAR POC (03/18/2012 2:56 PM DEAN OF GIRLS) P athologist Signature Appearance Clear POWERCHART Specimen (Source) Anatomical Collection Method Collection Time Re ceived Time Location / / Volume Laterality 03/18/2012 2:56 PM DEAN OF GIRLS Historical Provider LAB HISTORICAL ORDERS Performing Organization Address City/[facility]/ZIP Code Phon e Number POWERCHART Dipstick, POCT, Urine (lab) (03/18/2012 2:56 PM DEAN OF GIRLS) P athologist Signature Color Yellow POWERCHART Specimen (Source) Anatomical Collection Method Collection Time Re ceived Time Location / / Volume Laterality 03/18/2012 2:56 PM DEAN OF GIRLS Historical Provider LAB POCT ORDERABLES - DEVICE Performing Organization Address [facility] Phon e Number POWERCHART documented in this encounter Visit Diagnoses Not on filedocumented in this encounter Additional Health Concerns Assessment Noted Time PHQ-9 Depression Total Score: 18 06/21/2009 11:24 AM C DT documented as of this encounter
--- OUTSIDE RECORDS SUMMARY | 2021-12-08 16:57 | XMS_ITS | Encounter Summary ---
:1985 Author Organization [facility] Address [address] [place] [address] Care Team Providers Name Role Phone Kandi Alberts APRN, C.N.P. Primary Care Provider [phone] Encounter Details Date Type Department Care Team Description 06/27/2017 Nurse Triage Department of [facility] Pushpa Bragg, Medicine, [facility], R.N. in [place], [place] [address] [place] [address] Social History Tobacco Use Types Packs/Day Years [...] How often do you attend denominational or christianity Never 01/31/2019 services? 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 PCP - General 07/27/16 07/10/18 [address], [place] [phone] documented as of this encounter
--- OUTSIDE RECORDS SUMMARY | 2021-12-08 16:57 | XMS_ITS | Encounter Summary ---
:1985 Author Organization [facility] Address [address] [place] [address] Care Team Providers Name Role Phone Unavailable Primary Care Provider Unavailable Encounter Details Date Type Department Care Team Description 03/11/2012 Hospital Encounter HX [facility] Shayne Woody M.D. [address] [place], [place] [phone] (Wo rk) Social History [...] How often do you attend synagogue or mandaeism Never 01/31/2019 services? 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 - 03/11/2012 3:39 PM CST [id number] CHIEF COMPLAINT/REASON FOR VISIT OB followup HISTORY [...] and is therefore a TOLAC candidate. The [facility] consent form has been signed. She does [...] SHANNON MD On: 03/12/2012 04:33 PM Source: [facility] MHSDOLBEYNONRADSYS Document Id: [id number] CIATE PROFESSOR COMPUTER SCIENCE documented in this encounter Procedure Notes Conversion, Historical Provider Ser - 03/11/2012 5:00 PM CST Urine Dipstick Urine Dipstick Entered On: 03/11/2012 17:00 ASSOCIATE PROFESSOR COMPUTER SCIENCE Performed On: 03/11/2012 17:00 ASSOCIATE PROFESSOR COMPUTER SCIENCE by ZURDO GONZALEZ Urine Dipstick UA Color POC : Yellow UA Appear POC : Clear UA Protein POC : Negative UA Glucose POC : Negative ZURDO GONZALEZ - 03/11/2012 17:00 ASSOCIATE PROFESSOR COMPUTER SCIENCE Source: [facility] [employer] Document Id: [id number] documented in this encounter Miscellaneous Notes Ori - Emmy Shannon M.D. - 03/11/2012 4:25 PM CST Ambulatory Patient Summary [address] [address] Visit Information Name: WENDI ODONNELL [facility] Number: [id number] Visit Date: 03/11/2012 16:25:21 [...] your provider for clarification. Additional Information: Source: [facility] [employer] GroupCHART Document Id: [id number] CIATE PROFESSOR COMPUTER SCIENCE Ori - Emmy Shannon M.D. - 03/11/2012 4:25 PM CST Ambulatory Depart Summary [address] [id number] Visit Information Name: WENDI ODONNELL [facility] Number: [id number] Visit Date: 03/11/2012 16:25:20 [...] your provider for clarification. Additional Information: Source: [facility] POWERCHART Document Id: [id number] CIATE PROFESSOR COMPUTER SCIENCE Miscellaneous - Conversion, Historical Provider Ser - 03/11/2012 3:45 PM ASSOCIATE PROFESSOR COMPUTER SCIENCE Adult It Applications Analyst Intake/History Adult It Applications Analyst Intake/History Entered On: 03/11/2012 15:46 ASSOCIATE PROFESSOR COMPUTER SCIENCE Performed On: 03/11/2012 15:45 ASSOCIATE PROFESSOR COMPUTER SCIENCE by ZURDO GONZALEZ Intake Chief Complaint : ob visit 37+2 LMP Date : 06-24-11 Systolic Blood Pressure : 118mmHg Diastolic Blood Pressure : 64mmHg NIBP Mean : 82mmHg BP Location : Left upper extremity Blood Pressure Cuff Size : Regular Actual Weight : 62.2kg(Converted to: 137lb 2oz) Weight Source : Standing scale Dosing Weight Clinic : 62.20kg ZURDO GONZALEZ - 03/11/2012 15:45 ASSOCIATE PROFESSOR COMPUTER SCIENCE Subjective Pain Symptoms : No ZURDO GONZALEZ - 03/11/2012 15:45 ASSOCIATE PROFESSOR COMPUTER SCIENCE Dependent Habits Tobacco Use/Currently Using : No Tobacco Use/Last 12 months : No Smoking Status : Never smoker ZURDO GONZALEZ - 03/11/2012 15:45 ASSOCIATE PROFESSOR COMPUTER SCIENCE Caffeine Use Grid Caffeine Use : Current Type : Energy drinks Frequency : Weekly Amount : 1 ZURDO GONZALEZ - 03/11/2012 15:45 ASSOCIATE PROFESSOR COMPUTER SCIENCE Allergy Allergies (Active) NKA Estimated Onset Date: Unspecified ; Created By: SOTERO COLEMAN LPN; Reaction Status: Active ; Category: Drug ; Substance: NKA ; Type: Allergy ; Updated By: SOTERO COLEMAN LPN; Source: Family ; Reviewed Date: 03/04/2012 10:18 ASSOCIATE PROFESSOR COMPUTER SCIENCE Source: [facility] POWERCHART Document Id: [id number] documented in this encounter Plan of Treatment Not on filedocumented as of this encounter Procedures Procedure Name Priority Date/Time Associated Diagnosis Comme nts HX UA GLUCOSE POC Routine 03/11/2012 5:00 PM Resu lts for this ASSOCIATE PROFESSOR COMPUTER SCIENCE procedure are i n the results section. HX UA APPEAR POC Routine 03/11/2012 5:00 PM Resul ts for this ASSOCIATE PROFESSOR COMPUTER SCIENCE procedure are i n the results section. DIPSTICK, POCT, U Routine 03/11/2012 5:00 PM Resu lts for this (DIPC1) ASSOCIATE PROFESSOR COMPUTER SCIENCE procedure are i n the results section. DIPSTICK, POCT, U Routine 03/11/2012 5:00 PM Resu lts for this (DIPC1) ASSOCIATE PROFESSOR COMPUTER SCIENCE procedure are i n the results section. documented in this encounter Results HX UA GLUCOSE POC (03/11/2012 5:00 PM ASSOCIATE PROFESSOR COMPUTER SCIENCE) P athologist Signature Glucose, POCT, Negative POWERCHART U Specimen (Source) Anatomical Collection Method Collection Time Re ceived Time Location / / Volume Laterality 03/11/2012 5:00 PM ASSOCIATE PROFESSOR COMPUTER SCIENCE Historical Provider LAB HISTORICAL ORDERS Performing Organization Address City/State/ZIP Code Phon e Number POWERCHART Dipstick, POCT, Urine (lab) (03/11/2012 5:00 PM ASSOCIATE PROFESSOR COMPUTER SCIENCE) P athologist Signature Protein, POCT, Negative POWERCHART U Specimen (Source) Anatomical Collection Method Collection Time Re ceived Time Location / / Volume Laterality 03/11/2012 5:00 PM ASSOCIATE PROFESSOR COMPUTER SCIENCE Historical Provider LAB POCT ORDERABLES - DEVICE Performing Organization Address City/State/ZIP Code Phon e Number POWERCHART HX UA APPEAR POC (03/11/2012 5:00 PM ASSOCIATE PROFESSOR COMPUTER SCIENCE) P athologist Signature Appearance Clear POWERCHART Specimen (Source) Anatomical Collection Method Collection Time Re ceived Time Location / / Volume Laterality 03/11/2012 5:00 PM ASSOCIATE PROFESSOR COMPUTER SCIENCE Historical Provider LAB HISTORICAL ORDERS Performing Organization Address City/State/ZIP Code Phon e Number POWERCHART Dipstick, POCT, Urine (lab) (03/11/2012 5:00 PM ASSOCIATE PROFESSOR COMPUTER SCIENCE) P athologist Signature Color Yellow POWERCHART Specimen (Source) Anatomical Collection Method Collection Time Re ceived Time Location / / Volume Laterality 03/11/2012 5:00 PM ASSOCIATE PROFESSOR COMPUTER SCIENCE Historical Provider LAB POCT ORDERABLES - DEVICE Performing Organization Address [facility] Phon e Number POWERCHART documented in this encounter Visit Diagnoses Not on filedocumented in this encounter Additional Health Concerns Assessment Noted Time PHQ-9 Depression Total Score: 18 06/21/2009 11:24 AM C DT documented as of this encounter
--- OUTSIDE RECORDS SUMMARY | 2021-12-08 16:57 | XMS_ITS | Encounter Summary ---
:1985 Author Organization [facility] Address [address] [place] [address] Care Team Providers Name Role Phone Kandi Alberts APRN, C.N.P. Primary Care Provider [phone] Encounter Details Date Type Department Care Team Description 06/29/2017 Clinical Communication Department of [facility] Ni Alberts, Medicine, [place] TATY, C.N.P. [facility], [place] [address] [place], [place] [address] [address] [place], [place] [phone] [address] (Work) [phone] Social History Tobacco Use Types Packs/Day Years [...] How often do you attend amish or voodoo Never 01/31/2019 services? Do you [...] to pay for the very basics like [place] hat hard 11/27/2019 food, housing, medical care, [...] at Date Recorded Female 01/11/2018 2:20 PM SEAM RUBBER documented as of this encounter Miscellaneous Notes Telephone Encounter - Noemy Chang RGordonN. - 06/29/2017 2:47 PM CDT Spoke with Dr. Brush and rx is to take 4 tablets at once. Contacted [facility] pharmacy and spoke to pharmacistAzul. Telephone Encounter - Brittney Bird - 06/29/2017 1:10 PM CDT Richard from [facility] in [place] calls to clarify instructions for Zithromax. documented in this encounter Plan of Treatment Not on filedocumented as of this encounter Visit Diagnoses Not on filedocumented in this encounter Additional Health Concerns Assessment Noted Time PHQ-9 Depression Total Score: 9 06/29/2017 11:57 AM CD T documented as of this encounter Care Teams Purchase Request Editor Relationship Specialty Start Date End Date Kandi Alberts, QUALITY ASSURANCE TEST PROGRAM MANAGER, C.N.P. PCP - General 07/27/16 07/10/18 [address] [phone] documented as of this encounter
--- OUTSIDE RECORDS SUMMARY | 2021-12-08 16:57 | XMS_ITS | Encounter Summary ---
:1985 Author Organization [facility] Address [address] [place] [address] Care Team Providers Name Role Phone Unavailable Primary Care Provider Unavailable Encounter Details Date Type Department Care Team Description 03/26/2012 Hospital Encounter HX NO MAPPING Jef Casiano Jr., M.D. [address] [place], [place] [phone] (Wo rk) Social History [...] How often do you attend adventism or church Never 01/31/2019 services? 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
--- OUTSIDE RECORDS SUMMARY | 2021-12-08 16:57 | XMS_ITS | Encounter Summary ---
:1985 Author Organization [facility] Address [address] [place] [address] Care Team Providers Name Role Phone Unavailable [...] How often do you attend caodaism or congregational Never 01/31/2019 services? 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
--- OUTSIDE RECORDS SUMMARY | 2021-12-08 16:57 | XMS_ITS | Encounter Summary ---
:1985 Author Organization [facility] Address [address] [place] [address] Care Team Providers Name Role Phone Unavailable Primary Care Provider Unavailable Encounter Details Date Type Department Care Team Description 08/18/2013 Hospital Encounter [facility]X [facility] Gurmeet Robertson Jr., M.D. [address], [place] [phone] (Wo rk) Social History [...] How often do you attend moravian or latter day Never 01/31/2019 services? 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 - 08/18/2013 11:13 AM CDT [id number] CHIEF COMPLAINT/REASON FOR VISIT Follow up for vaginal bleeding during . HISTORY OF PRESENT ILLNESS Wendi is 28-year-old 6, para 2-0-3-2 female at unknown gestational age who presents to the clinic for follow up for vaginal bleeding during . Wendi was seen at [facility] ED for heavy vaginalbleeding and cramping approximately [...] negative and she did receive RhoGAM at [facility] ED 2.5 weeks ago. Possible management options, [...] 3. Follow up: Patient will present to [facility] for hysteroscopy with D&C on 08/19/2013. She will returnto the clinic for follow up in 3 weeks. This document serves as a record of services personally performed by Gurmeet Gomez MD. It was created on their behalf by Latanya Murray, a trained medical office supervisor. The creation of this record is based on the scribe's personal observations and the provider's statements to them. This document has been ch ecked and approved by the attending provider. Gurmeet Gomez M.D./dilip Electronically Signed By: GURMEET GOMEZ MD On: 08/18/2013 04:03 PM Source: [facility] MHSDOLBEYNONRADSYS Document Id: [id number] documented in this encounter Miscellaneous Notes Miscellaneous [...] GOMEZ MD - 08/18/2013 12:01 CDT Source: [facility] [employer] Document Id: [id number] CDT!6 Miscellaneous - Gurmeet Gomez Jr., M.D. - 08/18/2013 12:00 PM CDT Ambulatory Patient Summary [address] [id number] Visit Information Name: WENDI ODONNELL [facility] Number: [id number] Current Date: 08/18/2013 12:00:49 Physicians [...] at 6 pmon 08/19/13 New Routed to [address] [address] multivitamin, ( Multivitamins with Vitamin B Complex, Vitamin C, Minerals and L-Methylfolate oral capsule) 1 cap, Oral, once a day naproxen (Anaprox-DS 550 mg oral tablet) 1 Tablet(s), Oral, three times a day as needed for pain NewRouted to [address] [address] norgestimate-ethinyl estradiol (Ortho-Cyclen 0.25 mg-35 mcg oral tablet) 1 Tablet(s), Oral, once a day start on 08/20/2013 New Routed to [address] [address] venlafaxine (Effexor 37.5 mg oral tablet) 1 Tablet(s), Oral, two times a day Routed to [address] [address] Stop Taking the Following Medications: fluoxetine (FLUoxetine [...] appointment detail needed. Your Goals/Additional instructions: Source: [facility] POWERCHART Document Id: [id number] Miscellaneous - Gurmeet Gomez Jr., M.D. - 08/18/2013 12:00 PM CDT Ambulatory Discharge Medication List [address] [id number] Visit Information Name: WENDI ODONNELL [facility] Number: [id number] Visit Date: 08/18/2013 12:00:47 Attending [...] at 6 pmon 08/19/13 New Routed to [place] [id number] multivitamin, ( Multivitamins with Vitamin B Complex, Vitamin C, Minerals and L-Methylfolate oral capsule) 1 cap, Oral, once a day naproxen (Anaprox-DS 550 mg oral tablet) 1 Tablet(s), Oral, three times a day as needed for pain NewRouted to [address] [address] norgestimate-ethinyl estradiol (Ortho-Cyclen 0.25 mg-35 mcg oral tablet) 1 Tablet(s), Oral, once a day start on 08/20/2013 New Routed to [address] [address] venlafaxine (Effexor 37.5 mg oral tablet) 1 Tablet(s), Oral, two times a day Routed to [address] [address] Stop Taking the Following Medications: [...] MD Signed On:18-AUG-2013 12:00:44 Additional Information: Source: [facility] POWERCHART Document Id: [id number] Miscellaneous - Chika Napier, RGordonN. - 08/18/2013 11:29 AM CDT Adult Hr Operations Advisor Intake/History Adult Hr Operations Advisor Intake/History Entered On: 08/18/2013 11:30 CDT Performed [...] 08/18/2013 11:29 CDT General Info Languages : Khmer CHIKA LEUNG - 08/18/2013 11:29 CDT Subjective Pain Symptoms : No CHIKA LEUNG - 08/18/2013 11:29 CDT Dependent Habits Tobacco Use/Currently Using : No Smoking Status : Unknown if ever smoke CHIKA LEUNG - 08/18/2013 11:29 CDT Caffeine Use Grid Caffeine Use : Current Type : Energy drinks Frequency : Weekly Amount : 1 CHIKA LEUNG - 08/18/2013 11:29 CDT Source: [employer] Document Id: [id number] CDT!26 documented in this encounter Plan of [...] Received Time / Laterality Volume 08/19/2013 Narrative [facility] - 08/24/19 14 9:56 PM CDT PATIENT IMAGES Choose the Image button to view related documents. Historical Provider LAB SURG PATH ORDERABLES Performing Organization Address City/State/ZIP Code Phon e Number [facility] documented in this encounter Visit Diagnoses Not on filedocumented in this encounter Additional Health Concerns Assessment Noted Time PHQ-9 Depression Total Score: 18 06/21/2009 11:24 AM C DT documented as of this encounter
--- OUTSIDE RECORDS SUMMARY | 2021-12-08 16:57 | XMS_ITS | Encounter Summary ---
:1985 Author Organization [facility] Address [address] [place] [address] Care Team Providers Name Role Phone Unavailable Primary Care Provider Unavailable Encounter Details Date Type Department Care Team Description 03/14/2012 Hospital Encounter HX [facility] Shayne Woody M.D. [address], [place] [phone] (Wo rk) Social History [...] How often do you attend evangelical or roman catholic Never 01/31/2019 services? 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 - 03/14/2012 5:23 PM CST [id number] CHIEF COMPLAINT/REASON FOR VISIT Severe headache in [...] their behalf by Gricel Ron, a trained biomedical equipment technician. The creation of this record is based on the scribe's personal observations and the provider's statements to them. This document has been checked and approved by the attending provider. Emmy Shannon M.D./yasemin Electronically Signed By: EMMY SHANNON MD On: 03/15/2012 08:58 AM Modified by and Electronically Signed by: EMMY SHANNON MD On: 03/15/2012 08:58 AM Source: [facility] MHSDOLBEYNONRADSYS Document Id: [id number] ARCH LABORATORY MANAGER documented in this encounter Procedure Notes Conversion, Historical Provider Ser - 03/14/2012 5:36 PM CST Urine Dipstick Urine Dipstick Entered On: 03/14/2012 17:36 RESEARCH LABORATORY MANAGER Performed On: 03/14/2012 17:36 RESEARCH LABORATORY MANAGER by ZURDO GONZALEZ Urine Dipstick UA Color POC : Yellow UA Appear POC : Clear UA Protein POC : Trace UA Glucose POC : Negative ZURDO GONZALEZ - 03/14/2012 17:36 RESEARCH LABORATORY MANAGER Source: [facility] POWERCHART Document Id: [id number] Emmy Shannon M.D. - 03/14/2012 12:00 AM [...] SHANNON MD On: 03/15/2012 08:52 AM Source: [facility] MHSDOLBEYNONRADSYS Document Id: [id number] ARCH LABORATORY MANAGER documented in this encounter Miscellaneous Notes Miscellaneous - Emmy Shannon M.D. - 03/14/2012 7:03 PM CST Ambulatory Patient Summary [facility] [address] [place] [address] Visit Information Name: WENDI ODONNELL [facility] Number: [id number] Visit Date: 03/14/2012 19:03:12 Attending [...] your provider for clarification. Additional Information: Source: [facility] POWERCHART Document Id: [id number] ARCH LABORATORY MANAGER Miscellaneous - Emmy Shannon M.D. - 03/14/2012 7:03 PM CST [place] [address] Visit Information Name: CATHERINE WENDI LUIS [facility] Number: [id number] Visit Date: 03/14/2012 19:03:11 Attending [...] your provider for clarification. Additional Information: Source: [facility] POWERCHART Document Id: [id number] ARCH LABORATORY MANAGER Miscellaneous - Conversion, Historical Provider Ser - 03/14/2012 5:26 PM RESEARCH LABORATORY MANAGER Adult Truck Leasing Manager Intake/History Adult Truck Leasing Manager Intake/History Entered On: 03/14/2012 17:28 RESEARCH LABORATORY MANAGER Performed On: 03/14/2012 17:26 RESEARCH LABORATORY MANAGER by ZURDO GONZALEZ Chief Complaint : ob visit 37+5 LMP Date : 06-24-11 Systolic Blood Pressure : 124mmHg Diastolic Blood Pressure : 68mmHg NIBP Mean : 87mmHg BP Location : Right upper extremity Blood Pressure Cuff Size : Regular Actual Weight : 62.4kg(Converted to: 137lb 9oz) Dosing Weight Clinic : 62.40kg ZURDO GONZALEZ - 03/14/2012 17:26 RESEARCH LABORATORY MANAGER Subjective Pain Symptoms : No ZURDO GONZALEZ - 03/14/2012 17:26 RESEARCH LABORATORY MANAGER Dependent Habits Tobacco Use/Currently Using : No Tobacco Use/Last 12 months : No Smoking Status : Never smoker ZURDO GONZALEZ - 03/14/2012 17:26 RESEARCH LABORATORY MANAGER Caffeine Use Grid Caffeine Use : Current Type : Energy drinks Frequency : Weekly Amount : 1 ZURDO GONZALEZ - 03/14/2012 17:26 RESEARCH LABORATORY MANAGER Allergy Allergies (Active) NKA Estimated Onset Date: Unspecified ; Created By: SOTERO COLEMAN LPN; Reaction Status: Active ; Category: Drug ; Substance: NKA ; Type: Allergy ; Updated By: SOTERO COLEMAN LPN; Source: Family ; Reviewed Date: 03/04/2012 10:18 RESEARCH LABORATORY MANAGER Source: [employer] POWERCHART Document Id: [id number] documented in this encounter Plan of Treatment Not on filedocumented as of this encounter Procedures Procedure Name Priority Date/Time Associated Diagnosis Comme nts HX UA GLUCOSE POC Routine 03/14/2012 5:36 PM Resu lts for this RESEARCH LABORATORY MANAGER procedure are i n the results section. HX UA APPEAR POC Routine 03/14/2012 5:36 PM Resul ts for this RESEARCH LABORATORY MANAGER procedure are i n the results section. DIPSTICK, POCT, U Routine 03/14/2012 5:36 PM Resu lts for this (DIPC1) RESEARCH LABORATORY MANAGER procedure are i n the results section. DIPSTICK, POCT, U Routine 03/14/2012 5:36 PM Resu lts for this (DIPC1) RESEARCH LABORATORY MANAGER procedure are i n the results section. documented in this encounter Results HX UA GLUCOSE POC (03/14/2012 5:36 PM RESEARCH LABORATORY MANAGER) P athologist Signature Glucose, POCT, Negative POWERCHART U Specimen (Source) Anatomical Collection Method Collection Time Re ceived Time Location / / Volume Laterality 03/14/2012 5:36 PM RESEARCH LABORATORY MANAGER Historical Provider LAB HISTORICAL ORDERS Performing Organization Address City/[facility]/ZIP Code Phon e Number POWERCHART Dipstick, POCT, Urine (lab) (03/14/2012 5:36 PM RESEARCH LABORATORY MANAGER) P athologist Signature Protein, POCT, Trace POWERCHART U Specimen (Source) Anatomical Collection Method Collection Time Re ceived Time Location / / Volume Laterality 03/14/2012 5:36 PM RESEARCH LABORATORY MANAGER Historical Provider LAB POCT ORDERABLES - DEVICE Performing Organization Address [facility] Phon e Number POWERCHART HX UA APPEAR POC (03/14/2012 5:36 PM RESEARCH LABORATORY MANAGER) P athologist Signature Appearance Clear POWERCHART Specimen (Source) Anatomical Collection Method Collection Time Re ceived Time Location / / Volume Laterality 03/14/2012 5:36 PM RESEARCH LABORATORY MANAGER Historical Provider LAB HISTORICAL ORDERS Performing Organization Address [facility] Phon e Number POWERCHART Dipstick, POCT, Urine (lab) (03/14/2012 5:36 PM RESEARCH LABORATORY MANAGER) P athologist Signature Color Yellow POWERCHART Specimen (Source) Anatomical Collection Method Collection Time Re ceived Time Location / / Volume Laterality 03/14/2012 5:36 PM RESEARCH LABORATORY MANAGER Historical Provider LAB POCT ORDERABLES - DEVICE Performing Organization Address [facility] Phon e Number POWERCHART documented in this encounter Visit Diagnoses Not on filedocumented in this encounter Additional Health Concerns Assessment Noted Time PHQ-9 Depression Total Score: 18 06/21/2009 11:24 AM C DT documented as of this encounter
--- OUTSIDE RECORDS SUMMARY | 2021-12-08 16:57 | XMS_ITS | Encounter Summary ---
:1985 Author Organization [facility] Address [address] [place] [address] Care Team Providers Name Role Phone Unavailable Primary Care Provider Unavailable Encounter Details Date Type Department Care Team Description 05/21/2012 Hospital Encounter HX [facility] Shayne Woody M.D. [address] [place], [place] [phone] (Wo rk) Social History [...] How often do you attend episcopalian or holiness Never 01/31/2019 services? 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 - 05/21/2012 3:15 PM CDT [id number] CHIEF COMPLAINT/REASON FOR VISIT Nausea and abdominal [...] SHANNON MD On: 05/23/2012 01:35 PM Source: [facility] MHSDOLBEYNONRADSYS Document Id: [id number] documented in this encounter Miscellaneous Notes Miscellaneous [...] 05 August 2012 10:03:00 CDT Submitted: Order:hydrocodone-acetaminophen ([place] 5 mg-325 mg oral tablet) 1 tab(s) [...] ) Other: Provider: [facility] fax# [phone] Name of Medications Needing Refill: [place] 5/325mg tab - called patient, states she has been working a lot of overtime and having incisional pain from lifting at work. 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 POWERCHART Document Id: [id number] Miscellaneous - Emmy Shannon M.D. - 05/21/2012 4:21 PM CDT [place] [address] Visit Information Name: WENDI ODONNELL [facility] Number: [id number] Visit Date: 05/21/2012 16:21:15 Attending [...] your provider for clarification. Additional Information: Source: [facility] POWERCHART Document Id: [id number] Ori - Emmy Shannon M.D. - 05/21/2012 4:21 PM CDT [place] [address] Visit Information Name: WENDI ODONNELL [facility] Number: [id number] Visit Date: 05/21/2012 16:21:15 Attending [...] your provider for clarification. Additional Information: Source: [facility] POWERCHART Document Id: [id number] Ori - Emmy Shannon M.D. - 05/21/2012 [...] SHANNON MD - 05/21/2012 15:52 CDT Source: [employer] Document Id: [id number] CDT!5 Miscellaneous - Chika Napier RTyler - 05/21/2012 3:23 PM CDT Adult Fundraising Director Intake/History Adult Fundraising Director Intake/History Entered On: 05/21/2012 15:24 CDT Performed [...] 05/21/2012 15:23 CDT General Info Languages : Cuban CHIKA LEUNG - 05/21/2012 15:23 CDT Subjective Pain Symptoms : No CHIKA LEUNG - 05/21/2012 15:23 CDT Dependent Habits Tobacco Use/Currently Using : No Smoking Status : Unknown if ever smoke CHIKA LEUNG - 05/21/2012 15:23 CDT Caffeine Use Grid Caffeine Use : Current Type : Energy drinks Frequency : Weekly Amount : 1 CHIKA LEUNG - 05/21/2012 15:23 CDT Source: [employer] Document Id: [id number] CDT!24 documented in this encounter Plan of Treatment Not on filedocumented as of this encounter Visit Diagnoses Not on filedocumented in this encounter Additional Health Concerns Assessment Noted Time PHQ-9 Depression Total Score: 18 06/21/2009 11:24 AM C DT documented as of this encounter
--- OUTSIDE RECORDS SUMMARY | 2021-12-08 16:57 | XMS_ITS | Encounter Summary ---
:1985 Author Organization [facility] Address [address] [place] [address] Care Team Providers Name Role Phone Unavailable Primary Care Provider Unavailable Encounter Details Date Type Department Care Team Description 03/22/2012 Hospital Encounter HX [facility] Shayne Woody M.D. [address], [place] [phone] (Wo rk) Social History [...] How often do you attend hinduism or advent Never 01/31/2019 services? 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/2018 2:20 PM SALVAGE GRINDER documented as of this encounter Last Filed Vital Signs Vital Sign Reading Time Taken Comments Blood Pressure 120/78 03/22/2012 4:55 PM SALVAGE GRINDER Pulse - - Temperature - - Respiratory Rate - - Oxygen Saturation - - Inhaled Oxygen Concentration - - Weight 62.8 kg (138 lb 7.2 oz) 03/22/2012 4:55 PM SALVAGE GRINDER Height - - Body Mass Index 25.16 02/12/2012 1:41 PM SALVAGE GRINDER documented in this encounter Progress Notes Emmy Shannon M.D. - 03/22/2012 4:43 PM CST [id number] Non stress test Patient name :Wendi Odonnell Date of service: 03/22/12 Gestational age: 38 and 6 weeks Diagnosis: Decreased movement Indication for test: Decreased movement Non stress test shows heart rate baseline of 150bpm, moderate variability, no decelerations. Interpretation is reactive / reassuring with good variability and accelerations Follow up in 1 week for OB check Emmy Shannon M.D./yasemin DOCID: [id number] Electronically Signed By: EMMY SHANNON MD On: 03/22/2012 05:51 PM Source: [facility] MHSDOLBEYNONRADSYS Document Id: [id number] AGE GRINDER documented in this encounter Consult Notes Emmy Shannon M.D. - 03/22/2012 4:43 PM CST [id number] CHIEF COMPLAINT/REASON FOR VISIT OB followup HISTORY [...] their behalf by Gricel Ron, a trained clinical specialist medical device. The creation of this record is based on the scribe's personal observations and the provider's statements to them. This document has been checked and approved by the attending provider. Emmy Shannon M.D./yasemin DOCID: [id number] Electronically Signed By: EMMY SHANNON MD On: 03/22/2012 05:51 PM Source: [facility] MHSDOLBEYNONRADSYS Document Id: [id number] AGE GRINDER documented in this encounter Miscellaneous Notes Miscellaneous - Emmy Shannon M.D. - 03/22/2012 5:50 PM CST [place] [address] Visit Information Name: WENDI ODONNELL [facility] Number: [id number] Visit Date: 03/22/2012 17:50:21 Attending [...] your provider for clarification. Additional Information: Source: [facility] POWERCHART Document Id: [id number] AGE GRINDER Miscellaneous - Emmy Shannon M.D. - 03/22/2012 5:50 PM CST [place] [address] Visit Information Name: WENDI ODONNELL [facility] Number: [id number] Visit Date: 03/22/2012 17:50:21 Attending [...] your provider for clarification. Additional Information: Source: [facility] POWERCHART Document Id: [id number] AGE GRINDER Miscellaneous - Conversion, Historical Provider Ser - 03/22/2012 4:55 PM SALVAGE GRINDER Adult Stonework Supervisor Intake/History Adult Stonework Supervisor Intake/History Entered On: 03/22/2012 16:56 SALVAGE GRINDER Performed On: 03/22/2012 16:55 SALVAGE GRINDER by ZURDO GONZALEZ Intake Chief Complaint : ob visit 38+6 LMP Date : 06-24-11 Systolic Blood Pressure : 120mmHg Diastolic Blood Pressure : 78mmHg NIBP Mean : 92mmHg BP Location : Right upper extremity Blood Pressure Cuff Size : Regular Actual Weight : 62.8kg(Converted to: 138lb 7oz) Dosing Weight Clinic : 62.80kg ZURDO GONZALEZ 03/22/2012 16:55 SALVAGE GRINDER General Info Information Given By : Patient Languages : Urdu ZURDO GONZALEZ 03/22/2012 16:55 SALVAGE GRINDER Subjective Pain Symptoms : No ZURDO GONZALEZ 03/22/2012 16:55 SALVAGE GRINDER Dependent Habits Tobacco Use/Currently Using : No Tobacco Use/Last 12 months : No Smoking Status : Never smoker ZURDO GONZALEZ 03/22/2012 16:55 SALVAGE GRINDER Caffeine Use Grid Caffeine Use : Current Type : Energy drinks Frequency : Weekly Amount : 1 ZURDO GONZALEZ 03/22/2012 16:55 SALVAGE GRINDER Allergy Allergies (Active) NKA Estimated Onset Date: Unspecified ; Created By: SOTERO COLEMAN LPN; Reaction Status: Active ; Category: Drug ; Substance: NKA ; Type: Allergy ; Updated By: SOTERO COLEMAN LPN; Source: Family ; Reviewed Date: 03/04/2012 10:18 SALVAGE GRINDER Source: [facility] POWERCHART Document Id: [id number] documented in this encounter Plan of Treatment Not on filedocumented as of this encounter Visit Diagnoses Not on filedocumented in this encounter Additional Health Concerns Assessment Noted Time PHQ-9 Depression Total Score: 18 06/21/2009 11:24 AM C DT documented as of this encounter
--- OUTSIDE RECORDS SUMMARY | 2021-12-08 16:57 | XMS_ITS | Encounter Summary ---
:1985 Author Organization [facility] Address [address] [place] [address] Care Team Providers Name Role Phone Unavailable Primary Care Provider Unavailable Encounter Details Date Type Department Care Team Description 07/14/2015 Hospital Encounter HX [facility] FAMILYPRA Michelle Hankins, TATY, C.N.P. [address] [place] [address] (Wo rk) Social History Tobacco [...] How often do you attend mu-ism or rastafari Never 01/31/2019 services? 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 She follows with Dr. Soto in [place]. She was on gabapentin and Naproxen. Naproxen was discontinued due to an ulcer. She has been using Tylenol butit hasn't been helping. She plans to schedule a follow up appointment with Dr. Soto. She sees Marianna Escamilla, Psychiatric Nurse Practitioner at [facility] in [place]. She was recently switched from Effexor to [...] must include the following: Cholesterol, serum, total (57216) Lipoprotein, direct measurement, high density cholesterol (HDL cholesterol) (58391) Triglycerides (36233). (09/05/2007), section - at term (2007), D&C [...] Urine OV Est Pt Level 4 - 91385 - 25 min Depressive psychosis, recurrent episodes Follows with Marianna Escamilla, Psychiatric Nurse Practitioner at [facility]. Has call in for advice regarding recent change in antidepressant medication. Ordered: OV Est Pt Level 4 - 83531 - 25 min Infection Staphylococcus (Staph) Aureus Keflex 500 mg, one 3 times daily for 10 days. I will call with culture result. Ordered: Culture Aerobic OV Est Pt Level 4 - 44036 - 25 min Pain Low Back (LBP) Chronic Worsening, schedule appointment with Dr. Soto. Continue Tylenol as needed. Ice and rest. Ordered: OV Est Pt Level 4 - 82971 - 25 min Orders: cephalexin, 500 mg = 1 cap(s), PO, 3xDay, x 10 day(s), # 30 cap(s), 0 Refill(s), Acute, Pharmacy: [id number] Electronically Signed By: MICHAEL HANKINS APRN, CNP On: 07/14/2015 04:45 PM Source: [employer] Document Id: [id number] documented in this encounter Nursing Notes Michael [...] direct contact with an infected person through vjev-eh-cvxu contact. It also spreads through contact with [...] of staph bacteria that are resistant, or oklu-kx-ften. This means the bacteria cannot be treated [...] even if youre f eeling better. ?? 5420-9013 Kyle Kenny, [address] [place] [address], [place] [address]. All rights reserved. This information is not intended as a substitute for professional medical care. Always follow your healthcare professional's instructions. This document has images extracted. Please consider using [employer] for all your patient education needs. Source: [facility] POWERCHART Document Id: [id number] documented in this encounter Miscellaneous Notes Miscellaneous - Michael Hankins APRN, C.N.P. - 07/14/2015 4:18 PM CDT Ambulatory Patient Summary [address] [id number] Visit Information Name: CATHERINEWENDI [facility] Number: [id number] Current Date: 07/14/2015 16:18:11 [...] times a day x 10 day(s) New [address] [id number] FLUoxetine (PROzac 40 mg oral capsule) 1 [...] direct contact with an infected person through vbrm-xw-kpou contact. It also spreads through contact with [...] of staph bacteria that are resistant, or nzye-fj-jtwf. This means the bacteria cannot be treated [...] finished, even if youre feeling better. ?? 1109-0200 [facility], [address] [place] [address]. All rights reserved. This information is not [...] if you dont have one. Go to [email or web address] and click on Create Your Account. Then, follow the directions to complete the online form. Youll be asked for your [facility] number which you can find at the top of this document. Your Goals/Additional instructions: This document has images extracted. Please consider using [employer] for all your patient education needs. Source: [facility] POWERCHART Document Id: [id number] Miscellaneous - Michael Hankins APRN, C.N.P. - 07/14/2015 4:18 PM CDT Ambulatory Discharge Medication List [address] [id number] Visit Information Name: WENDI ALEXANDER [facility] Number: [id number] Visit Date: 07/14/2015 16:18:11 Attending Provider: MICHAEL HANKINS APRN, CNP Primary Care Provider: MICHAEL HANKINS APRN [facility] WENDI ALEXANDER has been given the [...] times a day x 10 day(s) New [address] [address] FLUoxetine (PROzac 40 mg oral [...] CNP Signed On:14-JUL-2015 16:18:00 Additional Information: Source: [facility] POWERCHART Document Id: [id number] Miscellaneous - Thais Yi L.P.N. - 07/14/2015 4:02 PM CDT Adult Recruiter Specialist Intake/History Adult Recruiter Specialist Intake/History Entered On: 07/14/2015 16:09 CDT Performed [...] Preferred Communication Mode : Verbal Languages : Malaysian Is Patient Female and 13-50 no hysterectomy [...] MICK - 07/14/2015 16:02 CDT LAMINEMAXIMINOTHAIS Ortega KILN PLACER - 07/14/2015 16:02 CDT Dependent Habits Exposure [...] YI MICK - 07/14/2015 16:02 CDT Source: [employer] Document Id: [id number] documented in this encounter Plan of [...] Bacterial Culture, Aerobic (07/14/2015 4:28 PM CDT) [facility] Method Time Signature Organism POWERCHART Refer for [...] Test, Qualitative, Urine (07/14/2015 4:26 PM CDT) [facility] Method Time Signature HXBeta-hCG Negative POWERCHART Qualitative Urine Specimen (Source) Anatomical Collection Method Collection Time Re ceived Time Location / / Volume Laterality Urine 07/14/2015 4:26 PM CDT Michael Hankins APRN, C.N.P. LAB URINE ORDERABLES Performing Organization Address City/[facility]/ZIP Code Phon e Number POWERCHART documented in this encounter Visit Diagnoses Not on filedocumented in this encounter Additional Health Concerns Assessment Noted Time PHQ-9 Depression Total Score: 19 01/20/2015 2:44 PM CS T documented as of this encounter
--- OUTSIDE RECORDS SUMMARY | 2021-12-08 16:57 | XMS_ITS | Encounter Summary ---
:1985 Author Organization [facility] Address [address] [place] [address] Care Team Providers Name Role Phone Kandi Alberts APRN C.NGordonPGordon Primary Care Provider [phone] Reason for Visit Reason Comments Abdominal Pain with nausea x 2 weeks Back Pain chronic getting worse Encounter Details Date Type Department Care Team Description 06/29/2017 Office Visit Department of Family Huang Pap Smear Examination (Primary Dx); Medicine, Marisel Mcgregor, [facility], in [place] [address] [place] [address] Social History Tobacco Use Types Packs/Day [...] How often do you attend yazidi or restorationist Never 01/31/2019 services? 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 The creation of this record is [...] 1:16 PM CDT) athologist Signature Negative 06/29/2017 [facility] Test, POCT, U 1:24 PM CDT [facility] Specimen Anatomical Collection Method Collection Time Receive d Time (Source) Location / / Volume Laterality Urine (Urine, 06/29/2017 1:16 PM 06/30/19 18 1:16 Clean Catch) CDT PM CDT Marisel Ferrer M.D. LAB POCT ORDERABLES - DEVICE Performing Organization Address City/State/[facility] Code Phon e Number [facility]- [address] [place] [address] [facility]- [address] [place] [address] [place] [facility] Urinalysis with Microscopic if Indicated (06/29/2017 1:16 PM CDT) athologist Signature Source Midstream 06/29/2017 [facility] 1:20 PM CDT [facility] Clarity Clear Clear 06/29/2017 [facility] 1:20 PM CDT [facility]- [facility] LAB Color Yellow 06/29/2017 [facility] 1:[address] [facility] Comment: ----REFERENCE VALUE---- Colorless Yellow Wendi Blood Negative Negative 06/29/2017 1:20 PM CDT [facility] [place] [facility] Nitrite Negative Negative 06/29/2017 1:20 PM CDT [facility] [place] [facility] Leukocyte Esterase Negative Negative 06/29/2017 1:20 PM CD T [facility] B Protein Negative mg/dL 06/29/2017 1:20 PM CDT [facility] [place] B Comment: ----REFERENCE VALUE---- Negative Trace Glucose Negative Negative mg/dL 06/29/2017 1:20 PM [employer] CDT SYSTEM- [place] [facility] Ketones, QI(U) Negative Negative mg/dL 06/29/2017 1:20 PM [facility] [place] [facility] Bilirubin Negative Negative 06/29/2017 1:20 PM [facility] pH 6.5 5.0 - 8.0 06/29/2017 1:20 PM [facility] Specific [place] 1.015 1.001 - 1.035 06/29/2017 1:20 PM [facility] Urobilinogen 0.2 0.2 - 1.0 mg/dL 06/29/2017 1:20 PM [facility] [place] [facility] Specimen Anatomical Collection Method Collection Time Receive d Time (Source) Location / / Volume Laterality Urine (Urine, 06/29/2017 1:16 PM 06/30/19 1:16 Clean Catch) CDT PM CDT Marisel Ferrer M.D. LAB URINE ORDERABLES Performing Organization Address City/[facility]/ZIP Code Phon e Number [facility]- [address] [place] [id number] [place] [facility]- [address] [place] [address] [facility] Bacterial Culture, Aerobic + Susc, Urine (06/29/2017 1:16 PM CDT) [facility] gist Method Time Signature Bacterial No growth 06/30/2017 [facility] Culture, after 1 day 4:22 PM CDT [facility] Aerobic, Urine of SYSTEM- [facility] LAB Specimen Anatomical Collection Method Collection Time Receive d Time (Source) Location / / Volume Laterality Urine (Urine) 06/29/2017 1:16 PM 06/30/19 CDT 11:56 PM CDT Comment: Specimen Source Site: Urine Marisel Ferrer M.D. LAB MICROBIOLOGY - GEN ERAL ORDERABLES Performing Organization Address City/State/ZIP Code Phon e Number [facility] [address] [place] [address] LAB (ABNORMAL) Vaginitis Panel - [facility] (06/29/2017 1:15 PM CDT) [facility] Method Time Signature Nichol Negative Negative 06/29/2017 [facility] species, DNA 2:41 PM CDT [facility] Gardnerella Positive (A) Negative 06/29/2017 [facility] vaginalis, DNA 2:41 PM CDT [facility] Trichomonas Negative Negative 06/29/2017 [facility] vaginalis, DNA 2:41 PM CDT [facility]- [facility] Specimen Anatomical Collection Method Collection Time Receive d Time (Source) Location / / Volume Laterality Swab (Vagina) 06/29/2017 1:15 PM 06/30/19 18 1:28 CDT PM CDT Marisel Ferrer M.D. LAB MICROBIOLOGY - GEN ERAL ORDERABLES Performing Organization Address City/State/ZIP Code Phon e Number [facility]- [address] [place] [address] [facility]- [address] [place] [address] [facility] LAB (ABNORMAL) Chlamydia / gonorrhoeae Amplified RNA (06/29/2017 1:15 PM CDT) [facility] Method Time Signature Source vaginal 07/02/2017 [facility] 11:18 AM CDT [facility] Chlamydia Positive (A) Negative 07/02/2017 [facility] trachomatis 11:18 AM CDT [email or web address] RNA [facility] Comment: ----ADDITIONAL INFORMATION---- This report is intended for use in clini kehinde monitoring and management of patients. It is not in tended for use in medical-legal applications. Source VAGINA 07/02/2017 11:18 AM BROOTEN [employer] CDT [facility] Neisseria gonorrhoeae Negative Negative 07/02/2017 11:18 A M [facility] [employer] amplified RNA CDT [facility] Comment: ----ADDITIONAL INFORMATION---- This report is intended for use in clini kehinde monitoring and management of patients. It is not in tended for use in medical-legal applications. Semi-Urgent This is a semi-urgent result ([place]) [facility] LAB Specimen Anatomical Collection Method Collection Time Receive d Time (Source) Location / / Volume Laterality Varies 06/29/2017 1:15 PM 8 (Cervix/Endocerv CDT 11:55 PM CD T ix) Marisel Ferrer M.D. LAB MICROBIOLOGY - GEN ERAL ORDERABLES Performing Organization Address City/State/ZIP Code Phon e Number [facility] [address] [place] [address] LAB ThinPrep Screen HPV Reflex (06/29/2017 1:13 PM CDT) Component Value Ref Test Analysis Performed Pathologis t Range Method Time At Signature 07/10/2017 [facility] 1:00 PM HEALTH CDT [facility] Report Tae Owusu MD 07/10/2017 [facility] electronically I verify that I have examined all relevant slides/ma terials 1:00 PM HEALTH signed by for the specimen(s) and rendered or confirmed the diagnosi s. CDT [facility] Gross Description Received specimen 07/10/2017 [facility] in a ThinPrep 1:00 PM HEALTH vial. CDT [facility] Pap Test Source Cervical/Endocervi 07/10/2017 [facility] kehinde 1:00 PM HEALTH CDT [facility] Clinical History having periods 07/10/2017 [facility] INIC 1:00 PM HEALTH CDT [facility] Menstrual lmp 06/17/2017 07/10/2017 [facility] Status(LMP, PM, 1:00 PM HEALTH ) CDT [facility] Hormone control 07/10/2017 [facility] Therapy/Contracep 1:00 PM HEALTH tives CDT [facility] Interpretation Cervical/Endocervical ??(ThinPrep): 07/10/2017 [facility] Satisfactory for Evaluation 1:00 PM HE ALTH [...] Organization Address City/State/ZIP Code Phon e Number [facility] [address] [place] [address] CYTOLOGY (ABNORMAL) CBC with Differential, Blood (06/29/2017 1:11 PM CDT) [facility] Method Time Signature Hemoglobin 11.7 11.6 - 06/29/2017 [facility] 15.0 g/dL 3:48 PM CDT [facility] [place] [facility] Hematocrit 35.3 (L) 35.5 - 06/29/2017 [facility] 44.9 % 3:48 PM CDT [facility] [place] [facility] Erythrocytes 3.99 3.92 - 06/29/2017 [facility] 5.13 3:48 PM CDT HEALTH x10(12)/L [facility] [place] [facility] MCV 88.5 78.2 - 06/29/2017 [facility] 97.9 fL 3:48 PM CDT [facility] [place] [facility] RBC Distrib Width 13.0 12.2 - 06/29/2017 [facility] 16.1 % 3:48 PM CDT [facility] [place] [facility] Platelet Count 175 157 - 371 06/29/2017 [facility] x10(9)/L 3:48 PM CDT [facility] [place] [facility] Leukocytes 5.5 3.4 - 9.6 06/29/2017 [facility] x10(9)/L 3:48 PM CDT [facility] [place] [facility] Neutrophils 2.93 1.56 - 06/29/2017 [facility] 6.45 3:53 PM CDT HEALTH x10(9)/L [facility]- [place] LAB Lymphocytes 1.98 0.95 - 06/29/2017 [facility] 3.07 3:53 PM CDT HEALTH x10(9)/L [facility] [place] [facility] Monocytes 0.51 0.26 - 06/29/2017 [facility] 0.81 3:53 PM CDT HEALTH x10(9)/L [facility] [place] [facility] Eosinophils 0.01 (L) 0.03 - 06/29/2017 [facility] 0.48 3:53 PM CDT HEALTH x10(9)/L [facility] [place] [facility] Basophils 0.08 0.01 - 06/29/2017 [facility] 0.08 3:53 PM CDT HEALTH x10(9)/L [facility] [place] [facility] Specimen Anatomical Collection Method Collection Time Receive d Time (Source) Location / / Volume Laterality Blood 06/29/2017 1:11 PM 8 3:45 CDT PM CDT Marisel Ferrer M.D. LAB BLOOD ADD-ON Performing Organization Address City/State/ZIP Code Phon e Number [facility] [address] [place] [address] LAB documented in this encounter Visit Diagnoses [...] documented as of this encounter Care Teams Aerial Tram Operator Relationship Specialty Start Date End Date Kandi Alberts, TATY, C.N.P. PCP - General 07/27/16 07/10/182199 [place] [address] documented as of this encounter
--- OUTSIDE RECORDS SUMMARY | 2021-12-08 16:57 | XMS_ITS | Encounter Summary ---
:1985 Author Organization [facility] Address [address] [place] [address] Care Team Providers Name Role Phone Unavailable Primary Care Provider Unavailable Encounter Details Date Type Department Care Team Description 12/24/2014 Hospital Encounter HX [facility]ILY[facility] Michelle Hankins, TATY, C.N.P. [address] [place] [address] (Wo rk) Social History Tobacco [...] How often do you attend zoroastrian or holiness Never 01/31/2019 services? 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/2018 2:20 PM TELEVISION ANNOUNCER documented as of this encounter Last Filed Vital Signs Vital Sign Reading Time Taken Comments Blood Pressure 114/74 12/24/2014 2:12 PM TELEVISION ANNOUNCER Pulse 80 12/24/2014 2:12 PM TELEVISION ANNOUNCER Temperature - - Respiratory Rate 16 12/24/2014 2:12 PM TELEVISION ANNOUNCER Oxygen Saturation - - Inhaled Oxygen Concentration - - Weight 63.5 kg (139 lb 15.9 oz) 12/24/2014 2:12 PM TELEVISION ANNOUNCER Height 162 cm (5' 3.78) 12/24/2014 2:12 PM TELEVISION ANNOUNCER Body Mass Index 24.2 12/24/2014 2:12 PM TELEVISION ANNOUNCER documented in this encounter Progress Notes Michael Hankins, TATY, Leti. - 12/24/2014 1:53 PM CST [id number] CHIEF COMPLAINT/REASON FOR VISIT 1. Depression. 2. Fatigue. HISTORY OF PRESENT ILLNESS This is Wendi's 1st visit back at [facility] in [place] in over a year. She has been getting care at [facility] in [place]. She states she has depression, she feels extremely tired, she does not want to get out of bed, she is overeating, she has little interest or pleasure in doing things. She is having difficult time concentrating. She just started a new job at the [employer], she is working nights, yesterday was her first day. She denies any desire to harm herselfor others. She is currently on Effexor 37.5 mg 1 daily. She does not feel it is helping. She has chronic low back pain. She sees Dr. Jacobsen in [place]. She takes naproxen and gabapentin for her [...] nontender. No hepatosplenomegaly. GENITOURINARY: Bartholin's, urethral and [place]'s, vagina and cervix are without lesion. ThinPrep [...] HANKINS CNP On: 12/28/2014 07:47 AM Source: [facility] MHSDOLBEYNONRADSYS Document Id: [id number] VISION ANNOUNCER documented in this encounter Nursing Notes Michael [...] medications. Your doctor can tell you more. [place] If you have bipolar disorder, you may take a medication called lithium. This medication helps even out your mood. Possible side effects are weight gain, trembling, and nausea. If You Are Taking MAOIs, Avoid: Beans Aged cheese Chocolate Red wine Most cold medications Certain medications (ask your doctor) To Reduce the Risk of [place] Poisoning: Take only the prescribed amount of lithium. Drink plenty offluids other than coffee, tea, and soda. Limit salt in your diet. If You Have Side Effects The side effects of antidepressants are usually mild. But if you have troubling side effects, call your doctor. Changing the dosage or type of medication may help. Never stop taking medications on yourown. ?? [phone] Kyle Kenny, [address] [place] [address], [place] [address]. All rights reserved. This information is not intended as a substitute for professional medical care. Always follow your healthcare professional's instructions. This document has images extracted. Please consider using SprayCool for all your patient education needs. Source: [facility]110CHART Document Id: [id number] VISION ANNOUNCER documented in this encounter Miscellaneous Notes Miscellaneous - Michael Hankins APRN, C.N.P. - 01/04/2015 1:55 PM CST Custom Result Letter 04 January 2015 WENDI ALEXANDER [id number] [facility] [id number] Dear WENDI ALEXANDER, I am happy to inform you that your recent Pap smear has been read as normal or negative. This is very reassuring. I would recommend following up with your next Pap smear in three years. Result Name Current Result PATROL POLICE SERGEANT Cytology. 12/24/2014 Sincerely, MICHAEL HANKINS [address] [place] [address] Electronic Signature Electronically Signed By: MICHAEL HANKINS CNP On: 04 January 2015 This document has images extracted. Source: [facility] [employer] Document Id: [id number] Electronically signed by Komal, [facility] Circuit Design Engineer [id number] at 07/10/2016 7:24 AM CDT Miscellaneous - Thais Yi L.P.N. - 12/24/2014 2:35 PM CST Health Assessment Health Assessment Entered On: 12/24/2014 14:38 TELEVISION ANNOUNCER Performed On: 12/24/2014 14:35 TELEVISION ANNOUNCER by THAIS YI LPN Health Assessment Complete Health Assessment Complete or Modified : Annual Health Assessment Annual Health Assessment Completed : Yes THAIS YI LPN - 12/24/2014 14:35 TELEVISION ANNOUNCER Nutrition Nutrition Risk Factors by History Adult : None THAIS YI LPN - 12/24/2014 14:35 TELEVISION ANNOUNCER Functional Current Daily Living Assistance : None THAIS YI LPN - 12/24/2014 14:35 TELEVISION ANNOUNCER Dependent Habits Tobacco Use/Currently Using : No Tobacco Use/Last 12 months : No Exposure to Tobacco Smoke : Other: Never Smoking Status : Never smoker Alcohol Use : Yes THAIS YI LPN - 12/24/2014 14:35 TELEVISION ANNOUNCER Caffeine Use Grid Caffeine Use : Current Type : Energy drinks Frequency : Weekly Amount : 1 THAIS YI LPN - 12/24/2014 14:35 TELEVISION ANNOUNCER AUDIT Tool How Often Do You Have [...] 8 THAIS YI LPN - 12/24/2014 14:35 TELEVISION ANNOUNCER Psychosocial Domestic Abuse Concerns : None Behavioral Health Screen/Safety Assmt : No Tenriism Preference : No qualifying data available. THAIS YI LPN - 12/24/2014 14:35 TELEVISION ANNOUNCER Advance Directive Advanced Directives : No Advance Directive Additional Information : No THAIS YI LPN - 12/24/2014 14:35 TELEVISION ANNOUNCER Educ Needs Learning Style Preference Adult Grid Patient : Printed materials, Verbal explanation Family : Verbal explanation, Printed materials THAIS YI LPN - 12/24/2014 14:35 TELEVISION ANNOUNCER Source: [facility] POWERCHART Document Id: [id number] TELEVISION ANNOUNCER!45 VISION ANNOUNCER Miscellaneous - Thais Yi, L.P.N. - 12/24/2014 2:32 PM CST PHQ-9 PHQ-9 Entered On: 12/24/2014 14:33 TELEVISION ANNOUNCER Performed On: 12/24/2014 14:32 TELEVISION ANNOUNCER by THAIS YI LPN PHQ-9 Little interest [...] difficult THAIS YI LPN - 12/24/2014 14:32 TELEVISION ANNOUNCER Source: [facility] [employer] Document Id: [id number] TELEVISION ANNOUNCER!13 VISION ANNOUNCER Miscellaneous - Michael Hankins APRN, C.N.P. - 12/24/2014 2:27 PM CST Ambulatory Patient Summary [address] [id number] Visit Information Name: CATHERINE WENDI LUIS [facility] Number: [id number] Current Date: 12/24/2014 14:27:56 Physicians [...] day This is a CHANGE Routed to [address] [address] Stop Taking the Following Medications: Medication list [...] medications. Your doctor can tell you more. [place] If you have bipolar disorder, you may take a medication called lithium. This medication helps even out your mood. Possible side effects are weight gain, trembling, and nausea. If You Are Taking MAOIs, Avoid: Beans Aged cheese Chocolate Red wine Most cold medications Certain medications (ask your doctor) To Reduce the Risk of [place] Poisoning: Take only the prescribed amount of lithium. Drink plenty offluids other than coffee, tea, and soda. Limit salt in your diet. If You Have Side Effects The side effects of antidepressants are usually mild. But if you have troubling side effects, call your doctor. Changing the dosage or type of medication may help. Never stop taking medications on yourown. ?? [phone] Kyle [facility], [address] [place] [address], [place] [address]. All rights reserved. This information is not [...] if you dont have one. Go to [email or web address] and click on Create Your Account. Then, follow the directions to complete the online form. Youll be asked for your [facility] number which you can find at the top of this document. Your Goals/Additional instructions: This document has images extracted. Please consider using SprayCool for all your patient education needs. Source: [facility] POWERCHART Document Id: [id number] VISION ANNOUNCER Miscellaneous - Michael Hankins APRN, C.N.P. - 12/24/2014 2:27 PM CST Ambulatory Discharge Medication List [address] [id number] Visit Information Name: WENDI ALEXANDER [facility] Number: [id number] Visit Date: 12/24/2014 14:27:55 Attending [...] day This is a [place] [address] Stop Taking the Following Medications: Medication list [...] CNP Signed On:24-DEC-2014 14:27:37 Additional Information: Source: [facility] POWERCHART Document Id: [id number] VISION ANNOUNCER Miscellaneous - Thais Yi L.P.N. - 12/24/2014 2:12 PM CST Adult Automatic Riveting Machine Operator Intake/History Adult Automatic Riveting Machine Operator Intake/History Entered On: 12/24/2014 14:15 TELEVISION ANNOUNCER Performed On: 12/24/2014 14:12 TELEVISION ANNOUNCER by THAIS YI LPN Intake Chief Complaint [...] kg/m2 THAIS YI LPN - 12/24/2014 14:12 TELEVISION ANNOUNCER General Info Information Given By : Patient Preferred Communication Mode : Verbal Languages : Tajik Is Patient Female and 13-50 no hysterectomy : Yes Status : Patient denies Are you ? : No THAIS YI LPN - 12/24/2014 14:12 TELEVISION ANNOUNCER Subjective Pain Symptoms : No THAIS YI LPN - 12/24/2014 14:12 TELEVISION ANNOUNCER Dependent Habits Tobacco Use/Currently Using : No Tobacco Use/Last 12 months : No Exposure to Tobacco Smoke : Other: Never Smoking Status : Never smoker THAIS YI LPN - 12/24/2014 14:12 TELEVISION ANNOUNCER Caffeine Use Grid Caffeine Use : Current Type : Energy drinks Frequency : Weekly Amount : 1 THAIS YI LPN - 12/24/2014 14:12 TELEVISION ANNOUNCER Source: [facility] POWERCHART Document Id: [id number] TELEVISION ANNOUNCER!38 VISION ANNOUNCER documented in this encounter Plan of Treatment Not on filedocumented as of this encounter Procedures Procedure Name Priority Date/Time Associated Diagnosis Comme nts PATHOLOGY PATROL POLICE SERGEANT Routine 12/24/2014 12:00 AM Results for this CYTOLOGY TELEVISION ANNOUNCER procedure are i n the results section. documented in this encounter Results Pathology PATROL POLICE SERGEANT Cytology (12/24/2014 12:00 AM TELEVISION ANNOUNCER) Specimen (Source) Anatomical Location Collection Method / Collectio n Time Received Time / Laterality Volume 12/24/2014 Narrative [facility] LAB - 01/04/2015 1:36 PM TELEVISION ANNOUNCER [facility] [place] [address] [place], [place] ??[address] Patient Name: WENDI ALEXANDER Patient ID #: [id number] Collected: 12/24/2014 Address: [facility]/State/Zip: [address] [place], [place] ??[id number] Received: Reported: 12/28/2014 01/04/2015 Soc. Sec. #: ?/Age/Sex 1985 (Age: 29) ??F Physician(s): BECKY HANKINS CNP Copy To: ? [facility] ??[id number] [address] [facility], ??[place] ??[address] CYTOPATHOLOGY PATROL POLICE SERGEANT REPORT FINAL CYTOLOGIC DIAGNOSIS Pap Smear - ThinPrep: NEGATIVE FOR INTRAEPITHELIAL LESION OR MALIGNANCY ENDOCERVICAL CELLS/COMPONENT PRESENT. PREDOMINANCE OF COCCOBACILLI CONSISTENT WITH SHIFT IN VAGINAL ROSE (POSSIBLE BACTERIAL VAGINOSIS -- CLINICAL CORRELATION SUGGESTED). SATISFACTORY SPECIMEN FOR EVALUATION. Electronically Signed Out By dls/01/04/[address] JAN[address] [facility] [place] [facility](ASCP) The Pap test is a screening [...]
--- OUTSIDE RECORDS SUMMARY | 2021-12-08 16:57 | XMS_ITS | Encounter Summary ---
:[address] [facility] Address [address] [place] [address] Care Team Providers Name Role Phone Unavailable Primary Care Provider Unavailable Encounter Details Date Type Department Care Team Description 01/20/2015 Hospital Encounter HX [facility] FAMILYPRA Michelle Alberts, TATY, C.N.P. [address] [place] [address] (Wo rk) Social History Tobacco [...] How often do you attend samaritan or sikh Never 01/31/2019 services? 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/2018 2:20 PM VOICE PATHOLOGIST documented as of this encounter Last Filed Vital Signs Vital Sign Reading Time Taken Comments Blood Pressure 112/74 01/20/2015 2:27 PM VOICE PATHOLOGIST Pulse 68 01/20/2015 2:27 PM VOICE PATHOLOGIST Temperature - - Respiratory Rate 20 01/20/2015 2:27 PM VOICE PATHOLOGIST Oxygen Saturation - - Inhaled Oxygen Concentration - - Weight 64.5 kg (142 lb 3.2 oz) 01/20/2015 2:27 PM VOICE PATHOLOGIST Height 162 cm (5' 3.78) 01/20/2015 2:27 PM VOICE PATHOLOGIST Body Mass Index 24.58 01/20/2015 2:27 PM VOICE PATHOLOGIST documented in this encounter Progress Notes Michael [...] must include the following: Cholesterol, serum, total (44395) Lipoprotein, direct measurement, high density cholesterol (HDL cholesterol) (21564) Triglycerides (19198). (09/05/2007), section - at term (2007), D&C [...] Ordered: OV Est Pt Level 4 - 36458 - 25 min Pain Low Back (LBP) Chronic Stable on gabapentin. Continue PT. Ordered: OV Est Pt Level 4 - 15715 - 25 min Orders: venlafaxine, 150 mg = 1 cap(s), PO, Daily, do not crush or chew with food, # 30 cap(s), 11 Refill(s), Maintenance, Pharmacy: [id number], Does not need refill today. Return Visit [facility] 30 Min Electronically Signed By: MICHAEL ALBERTS CNP On: 01/20/2015 02:48 PM Source: [facility] [employer] MedicalCHART Document Id: [id number] E PATHOLOGIST documented in this encounter Nursing Notes Michael [...] medications. Your doctor can tell you more. [place] If you have bipolar disorder, you may take a medication called lithium. This medication helps even out your mood. Possible side effects are weight gain, trembling, and nausea. If You Are Taking MAOIs, Avoid: Beans Aged cheese Chocolate Red wine Most cold medications Certain medications (ask your doctor) To Reduce the Risk of [place] Poisoning: Take only the prescribed amount of lithium. Drink plenty offluids other than coffee, tea, and soda. Limit salt in your diet. If You Have Side Effects The side effects of antidepressants are usually mild. But if you have troubling side effects, call your doctor. Changing the dosage or type of medication may help. Never stop taking medications on yourown. ?? [phone] [facility], [address] [place] [address], [place] [address]. All rights reserved. This information is not intended as a substitute for professional medical care. Always follow your healthcare professional's instructions. This document has images extracted. Please consider using [employer] for all your patient education needs. Source: [facility] POWERCHART Document Id: [id number] E PATHOLOGIST documented in this encounter Miscellaneous Notes Miscellaneous - Thais Yi L.P.N. - 01/20/2015 2:44 PM CST PHQ-9 PHQ-9 Entered On: 01/20/2015 14:44 VOICE PATHOLOGIST Performed On: 01/20/2015 14:44 VOICE PATHOLOGIST by THAIS YI LPN PHQ-9 Little interest [...] difficult THAIS YI LPN - 01/20/2015 14:44 VOICE PATHOLOGIST Source: [facility] POWERCHART Document Id: [id number] VOICE PATHOLOGIST!13 E PATHOLOGIST Miscellaneous - Michael Alberts APRN, C.N.P. - 01/20/2015 2:36 PM CST Ambulatory Patient Summary [id number] [place], [place] [id number] Visit Information Name: WENDI ALEXANDER [facility] Number: [id number] Current Date: 01/20/2015 14:36:08 Physicians [...] food This is a CHANGE Routed to [address] [address] Stop Taking the Following Medications: Medication list [...] medications. Your doctor can tell you more. [place] If you have bipolar disorder, you may take a medication called lithium. This medication helps even out your mood. Possible side effects are weight gain, trembling, and nausea. If You Are Taking MAOIs, Avoid: Beans Aged cheese Chocolate Red wine Most cold medications Certain medications (ask your doctor) To Reduce the Risk of [place] Poisoning: Take only the prescribed amount of lithium. Drink plenty offluids other than coffee, tea, and soda. Limit salt in your diet. If You Have Side Effects The side effects of antidepressants are usually mild. But if you have troubling side effects, call your doctor. Changing the dosage or type of medication may help. Never stop taking medications on yourown. ?? [phone] Kyle Kenny, [address] [place] [address]. All rights reserved. This information is not [...] if you dont have one. Go to [email or web address] and click on Create Your Account. Then, follow the directions to complete the online form. Youll be asked for your [facility] number which you can find at the top of this document. Your Goals/Additional instructions: This document has images extracted. Please consider using [employer] for all your patient education needs. Source: [facility] POWERCHART Document Id: [id number] E PATHOLOGIST Miscellaneous - Michael Alberts APRN, C.N.P. - 01/20/2015 2:36 PM CST Ambulatory Discharge Medication List [address] [id number] Visit Information Name: CATHERINEWENDI [facility] Number: [id number] Visit Date: 01/20/2015 14:36:07 Attending [...] food This is a [place] [address] Stop Taking the Following Medications: Medication list [...] of emergency. Electronically Signed By: MICHAEL ALBERTS POCKET BUILDER Signed On:20-JAN-2015 14:35:37 Additional Information: Source: [facility] POWERCHART Document Id: [id number] E PATHOLOGIST Miscellaneous - Thais Yi L.PGordonN. - 01/20/2015 2:27 PM CST Adult Health Specialist Intake/History Adult Health Specialist Intake/History Entered On: 01/20/2015 14:29 VOICE PATHOLOGIST Performed On: 01/20/2015 14:27 VOICE PATHOLOGIST by THAIS YI LPN Intake Chief Complaint [...] kg/m2 CALETHAIS Ortega MICK - 01/20/2015 14:27 VOICE PATHOLOGIST General Info Information Given By : Patient Preferred Communication Mode : Verbal Languages : Bulgarian Is Patient Female and 13-50 no hysterectomy : Yes Status : Patient denies Are you ? : No KDTHAIS MICK - 01/20/2015 14:27 VOICE PATHOLOGIST Subjective Pain Symptoms : Yes KDELDONTHAIS ANGELA LPN - 01/20/2015 14:27 VOICE PATHOLOGIST Pain Scale Pain Scale Verbal 0-10 : Open THAIS YI MICK - 01/20/2015 14:27 VOICE PATHOLOGIST Pain Pain Assessment Grid Pain 1 Location : Lower back Intensity : 10 Time Pattern : Constant LAMINEMAXIMINOTHAIS Ortega ANGELA BARTON - 01/20/2015 14:27 VOICE PATHOLOGIST Dependent Habits Exposure to Tobacco Smoke : Other: Never Smoking Status : Never smoker Tobacco 2A : No KDELDONTHAISBERNARDINO MILLER LPN - 01/20/2015 14:27 VOICE PATHOLOGIST Caffeine Use Grid Caffeine Use : Current Type : Energy drinks Frequency : Weekly Amount : 1 ELDON YIBERNARDINO MILLER LPN - 01/20/2015 14:27 VOICE PATHOLOGIST Source: [employer] Document Id: [id number] VOICE PATHOLOGIST!45 E PATHOLOGIST documented in this encounter Plan of Treatment Not on filedocumented as of this encounter Visit Diagnoses Not on filedocumented in this encounter Additional Health Concerns Assessment Noted Time PHQ-9 Depression Total Score: 19 01/20/2015 2:44 PM CS T documented as of this encounter
--- OUTSIDE RECORDS SUMMARY | 2021-12-08 16:57 | XMS_ITS | Encounter Summary ---
:1985 Author Organization [facility] Address [address] [place] [address] Care Team Providers Name Role Phone Unavailable Primary Care Provider Unavailable Encounter Details Date Type Department Care Team Description 07/22/2015 - Hospital Encounter HX [facility] COLBY WinAnjelica, 07/26/2015 HLT M.B.B.S. [address] [place] [address] Social History Tobacco Use Types Packs/Day Years [...] How often do you attend jew or moravian Never 01/31/2019 services? 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/2018 2:20 PM LOCAL SUPERINTENDENT documented as of this encounter Last Filed [...] ROLLINS RN - 07/26/2015 13:36 CDT Source: [facility] POWERCHART Document Id: [id number] CDT!28 Nya Rollins R.N. - 07/26/2015 11:42 AM CDT Hospital Discharge Instructions [facility] [address] [facility] [address] [place] [address] Patient Discharge Instructions Name: WENDI ODONNELL Current Date: 07/26/2015 11:42:14 : 1985 12:00 AM [facility] Number: [id number] Patient Address: [address] [facility] [phone] Patient Primary Care Provider: Name: MICHAEL HANKINS APRN LEAD BASED PAINT TECHNICIAN Discharge Diagnosis: [facility] in [place] would like to thank you for allowing us to assist you with yourhealthcare needs. The following includes patient education materials and information regarding your injury/illness. Comment: -[facility] Behavioral Health Unit: [phone]; [facility] CrisisTeam: [phone] WENDI ODONNELL has been given the following list of follow-up instructions, medication list and patient education materials: Follow-up Instructions With: Address: When: MICHAEL HANKINS [address] [place] [address] Business (1) 08/02/2015 2:45 PM Comments: This appointment is a hospital follow up With: Address: When: Genia Retort Feeder [employer] [facility] Casket Upholsterer Department, [address] [address] 07/28/2015 11:00 AM Comments: This appointment is for case management intake. With: Address: When: [facility] [address] [place] [address] Within As Directed Comments: This is for Therapy Sharita will call you on sunday (07/25) to set up an intake appointment With: Address: When: WILLEM Larson, [facility], [address], [place], [place] [phone] 07/29/2015 2:45 PM Comments: This is for [...] Appointments Date Time Location Provider 08/02/2015 14:45 [facility] Hank[facility] CNP Consider Using Patient Online [...] if you dont have one. Go to [email or web address] and click on Create Your Account. Then, follow the directions to complete the online form. Youll be asked for your [facility] number which you can find at the top of this document. CATHERINE Velásquez AMBER LEE , have received the attached patient education materials/instructions and have verbalized understanding: Patient Signature Date Time Care Provider Signature Date Time Source: [facility] POWERCHART Document Id: [id number] Nya Rollins R.N. - 07/26/2015 11:42 AM CDT Hospital Discharge Medication List [address] [place] [id number] Discharge Medication List Name: CATHERINEWENDI LUIS Current Date: 07/26/2015 11:42:13 : 1985 12:00 AM [facility] Number: [id number] Patient Address: [address] [place] [id number] Patient Primary Care Provider: Name: MICHAEL HANKINS APRN, CNP Discharge Diagnosis: [facility] in [place] would like to thank you for allowing [...] By: ANJELICA WIN Signed On:26-JUL-2015 09:37:22 Source: [facility] POWERCHART Document Id: [id number] Anjelica Win M.B.B.S. - 07/26/2015 12:00 AM CDT [id number] DATE OF ADMISSION: July 22, 2015 DATE [...] HOSPITAL COURSE: During this brief hospitalization, the teletypewriter operator reached out to her family to gather [...] time of discharge Wendi had allowed the teletypewriter operator to reach out to her mother and [...] of the medications she overdosed on, the teletypewriter operator had deferred starting an antidepressant, but she was started on sertraline, with the dose being optimized to 50 mg daily, which she tolerated reasonably well and certainly was not endorsing any significant side effects from it by the time of discharge. The teletypewriter operator offered psychoeducation on the detrimental effects of alcohol onboard with depression and anxiety, and she was fairly receptive of this information. She was encouraged to consider outpatient chemical dependency treatment, and verbalized understanding and agreement with the importance of maintaining sobriety after discharge. She was also [facility] Prior to discharge she was able to [...] up with Michael Hankins CNP, at [address] [address], [phone], on 08/02/2015 at 2:45 p.m. for primary care followup. 2. Follow up with Genia, director case management, [facility] Casket Upholsterer Department, [address] [place] [address], [address], [place] [address], phone , on 07/28/2015 at 11 a.m. for case management intake. 3. Follow up with [facility] at [address] [place], [place] [address], phone , for psychotherapy. Therapist will call the patient on 07/26/2015, to set up anintake appointment. 4. Follow up with WILLEM Larson, HEEL LINING PASTER, [facility], [address] [place] [address], phone , on 07/28/2015 at 2:45 p.m. [...] ANJELICA WIN On: 08/10/2015 12:51 AM Source: [facility] MHSDOLBEYNONRADSYS Document Id: [id number] documented in this encounter Progress Notes Roberth Lundberg, Ph.D. - 07/26/2015 12:00 AM CDT [id number] INPATIENT BEHAVIORAL HEALTH PROGRESS NOTE TIME SPENT: Forty minutes process group, (9:25 a.m. to 10:05 a.m.). PRESENTING PROBLEM: Ms. Odonnell is a 30-year-old female, who was admitted to the Behavioral Health unit the [facility] [place] in [place], following an incident in which she reportedly [...] PhD, LP On: 08/09/2015 05:36 PM Source: [facility] MHSDOLBEYNONRADSYS Document Id: [id number] Anjelica Win M.B.B.S. - 07/25/2015 12:00 AM CDT [id number] PSYCHIATRY INPATIENT PROGRESS NOTE INTERVAL HISTORY: Wendi [...] ANJELICA WIN On: 08/10/2015 12:51 AM Source: [facility] MHSDOLBEYNONRADSYS Document Id: [id number] Anjelica Win M.B.B.S. - 07/24/2015 12:00 AM CDT [id number] PSYCHIATRY INPATIENT PROGRESS NOTE INTERVAL HISTORY: Wendi [...] seems quite anxious about discharge and the teletypewriter operator explained the 72 hour hold process to her. Discussed that the goal of this hospitalization would be to adjust medications and transitionto outpatient care as soon as possible, but also to do due diligence related to her safety. She requested for the teletypewriter operator to speak with her father, who reported [...] be discharged as soon as possible. The teletypewriter operator explained collateral information from her family, confronted [...] ANJELICA WIN On: 08/05/2015 12:33 PM Source: [facility] MHSDOLBEYNONRADSYS Document Id: [id number] Aileen Lamb L.G.S.W. - 07/23/2015 2:22 PM CDT Phone Communication Phone Communication Referral Treatment Team Caller Information Name: Jose Guadalupe Cormier Case Management Phone:[phone] Description of the Call Lettuce Trimmer called a the request of this pt. to arrange an intake for CM services with Jose Guadalupe Dykes. Time and date are noted on Depart as 07/27 at 11 am. Lettuce Trimmer has also taken steps necessary to assure that this facilitys mandatory reporting requirements have been met. Plan/Follow-up 1. Continue to work with to coordinate patients plan of care. 2. Update treatment team when new information is available. Electronically Signed By: AILEEN LAMB On: 07/23/2015 02:22 PM [facility] Document Id: [id number] Aileen Lamb L.G.S.W. - 07/23/2015 1:25 PM [...] She was transferred from the hospital in [facility] to the behavioral health unit. SYSTEMS [...] a solution to all her problems. This teletypewriter operator educated her on the possibilities of medication and therapy and combination to help her with her depression. PAST MEDICAL / SURGICAL HISTORY MENTAL HEALTH HISTORY Please see PSY-Con for additional details. This patient states having been hospitalized in [place] in 2011. She states as a result of this inpatient hospitalization she was held for 72 hours, and was in contact with the [facility] director case management as a result. She has since lost [...] younger and one older sister living in [facility]. And that her parents are both living in [facility]. MARITAL STATUS / FAMILY Patient [...] does state having a psychiatric provider in [place]. SPIRITUALITY / CHURCH / CULTURE This patient became careful when asked about her spirituality and zoroastrian. She states that she is not atheist, but that she has no strong connection to a moravian organization. LEGAL Pt reports none. HISTORY Patient [...] them alone. It would appear to this teletypewriter operator that since she has attempted in the [...] 2. Education on the role of the social service agency director on the inpatient behavioral health unit 3. [...] the recommendations. Electronically Signed By: AILEEN LAMB [facility] On: 07/23/2015 01:26 PM Source: [facility] Document Id: [id number] documented in this encounter H&P Notes Anjelica Win M.B.B.S. - 07/22/2015 8:01 PM CDT [id number] PSYCHIATRY INPATIENT EVALUATION NOTE. PATIENT IDENTIFICATION/REASON FOR [...] and was apparently in the hospital in [place] at that time. This would be her [...] 2600 [place], [place] [address] mg, prednisone up to 1600 mg and [...] medicat ions from her pharmacy that is [facility] in [facility]. The events leading to hospitalization were summarized [...] hydrocodone, 2600 [place] [address] mg of methocarbamol, 1600 mg of prednisone [...] also prescribed for her and therefore the teletypewriter operator is not immediately restarting antidepressants for her. As noted, her medications need to be confirmed from her pharmacy. She claims that she was feeling hopeless, disconnected did not care if her overdose would turner in to be lethal and does admit that [...] of it. She did not want the teletypewriter operator contacting her mother but did allow the teletypewriter operator to contact her father Thiago providing verbal consent and was willing to sign a written consent. She provided the Dad's name is Thiago and phone #[phone]. When the teletypewriter operator tried calling this number, the teletypewriter operator is informed presumably by her mother that her father was acurrently at work and cannot be contacted. However, the teletypewriter operator did leave a message for her father. [...] she was admitted in the hospital in [place]. She states that her back speciali st is Dr. Soto in [place]. She also sees a psychiatric nurse practitioner, Marianna Escamilla through [facility] in [place]. Dr. Hankins records from July 14, 2015, [...] trying to gether into treatment and the teletypewriter operator suspects that her alcohol use may be [...] 107. Diastolic blood pressure 70. MEDICATIONS: The teletypewriter operator had started cephalexin for her but given that she was only supposed to take it for 10 days and was prescribed the on the first and may have also overdosed on this medication. The teletypewriter operator is discontinuing it until further reconciliation of her medications can be undertaken from her pharmacy and until Medicine has had a chance to evaluate her. She was taking Prozac and apparently having been switched to it recently from Effexor but was not finding it effective from what the teletypewriter operator has gathered. PAST PSYCHIATRIC HISTORY She reports depressed symptoms starting in her childhood in fact reports a strong family history of depression including her mother, grandmother and a sister, however, she did not really start seeking any psychiatric help until the age of 18. There has been at least one past psychiatric hospitalization in at a hospital in [place] but does not recall the name. She states that this was her first and only suicide attempt up until this presentation. As noted above, she is seeing Marianna Escamilla through [facility] in the [place]. She was on Prozac and lorazepam by [...] intoxications, blackouts, detox, or DWI's to the teletypewriter operator. She does not attending AA meetings and [...] that she was born and raised in [place]. 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 She did not complete her college education. [...] 2 days prior to presentation to the [place] Emergency Department. PAST MEDICAL/SURGICAL HISTORY History of [...] was cleared by the emergency department at [place] for admission. The teletypewriter operator will still obtain an EKG given the [...] been compliant with it recently in the teletypewriter operator's u nderstanding. Will also confirm medications from her pharmacy that is a [facility] in [place]. Will defers starting Prozac or another antidepressant [...] ANJELICA WIN On: 08/05/2015 10:48 AM Source: [facility] MHSDOLBEYNONRADSYS Document Id: [id number] documented in this encounter Consult Notes Amadou Ann M.D. - 07/23/2015 12:00 AM CDT [id number] PRIMARY CARE PHYSICIAN: Michael Hankins CNP CONSULTATION [...] denied intoxications, blackouts, detoxification detailed to the teletypewriter operator. She is not on any AA meetings. [...] minutes. Amadou Ann M.D./pos cc: Corie RahmanB.S. [facility] in [address] [address] Electronically Signed By: AMADOU ANN MD On: 07/24/2015 11:22 AM Source: [facility] MHSDOLBEYNONRADSYS Document Id: [id number] documented in this encounter Nursing Notes Nya Rollins R.N. - 07/26/2015 10:31 AM CDT Focus: AM Status Pt has been pleasant and polite during interactions this morning. Pt was noted to be up and readinga book upon teletypewriter operator introducing self this morning. Pt cooperated taking [...] pt requested her prescriptions be faxed to [facility] in [place]; this was completed. Lettuce Trimmer and pt reviewed discharge paperwork, medications, prescriptions, [...] ROLLINS RN On: 07/26/2015 10:36 AM Source: [facility] POWERCHART Document Id: [id number] Alessandra Masterson R.N. - 07/25/2015 11:32 PM [...] MASTERSON RN On: 07/26/2015 02:35 AM Source: [facility] Document Id: [id number] Alessandra Masterson R.N. - 07/25/2015 8:49 PM CDT PRN Response PRN Response Entered On: 07/25/2015 20:49 CDT Performed On: 07/25/2015 20:49 CDT by ALESSANDRA MASTERSON RN Intervention Information: hydrocodone-acetaminophen Performed by ALESSANDRA MASTERSON RN on 07/25/2015 20:02:08 CDT HYDROcodone-acetaminophen,1tab(s) PO,Pain PRN Medication Effectiveness Evaluation PRN Medication Effective : Yes Post Medication Pain Assessment : 5 ALESSANDRA MASTERSON RN - 07/25/2015 20:49 CDT Source: [facility] Document Id: [id number] CDT!4 Jahaira [place] R.N. - 07/25/2015 3:16 PM CDT AM Status D/A: Patient met with teletypewriter operator for 1:1 this shift. She was cooperative [...] FROST RN On: 07/25/2015 06:22 PM Source: [facility] POWERCHART Document Id: [id number] Jahaira [place] R.N. - 07/25/2015 10:30 AM [...] FROST RN - 07/25/2015 10:30 CDT Source: [facility] Document Id: [id number] CDT!3 Maria R Peters R.N. - 07/24/2015 [...] stretches in the exercise group with the NOTCHING MACHINE OPERATOR. Pt said thatshe was going to go [...] PETERS RN On: 07/25/2015 12:33 AM Source: [facility] Document Id: [id number] Maria R Peters R.N. - 07/24/2015 5:04 PM CDT PRN Response PRN Response Entered On: 07/25/2015 0:13 CDT Performed On: 07/24/2015 17:04 CDT by MARIA R PETERS RN Intervention Information: hydrocodone-acetaminophen Performed by MARIA R PETERS RN on 07/24/2015 16:04:24 CDT HYDROcodone-acetaminophen,1tab(s) PO,Pain PRN Medication Effectiveness Evaluation PRN Medication Effective : Yes MARIA R PETERS RN - 07/25/2015 0:12 CDT Source: [facility] Document Id: [id number] CDT!3 Nilda Arteaga R.N. - 07/24/2015 2:05 [...] ARTEAGA RN - 07/24/2015 14:05 CDT Source: [facility] Document Id: [id number] CDT!4 Nilda Arteaga R.N. - 07/24/2015 9:45 [...] ARTEAGA RN On: 07/24/2015 02:38 PM Source: [facility] POWERCHART Document Id: [id number] Isiah Clement R.N. - 07/23/2015 8:10 PM CDT PM Status D: Wendi has been withdrawn to her room since teletypewriter operator arrived at 3:00 pm. Patient reports an [...] hydrocodone- acetaminophen 5-325 mg q6H PRN. This teletypewriter operator approached Wendiin her room to offer medication, however patient appeared to be sleeping and did not respond to abbey de leon prompts. A: The [facility] pharmacy in [place] was contacted and med list by history was confirmed and documented in patient chart. Emotional support and reassurance provided. Plan of care reviewed. R: Patient was pleasant and cooperative with 1:1. Continue with current plan of care. Electronically Signed By: ISIAH CLEMENT RN On: 07/23/2015 08:13 PM Source: [facility] Document Id: [id number] Rajendra Servin R.N. - 07/23/2015 3:10 PM [...] depressed, though patient appears visually depressed to teletypewriter operator. Patient denied any physical complaints. Patient stated [...] RAJENDRA SERVIN On: 07/23/2015 03:18 PM Source: [facility] Document Id: [id number] Price Dee R.N. - 07/22/2015 7:17 PM CDT Focus: Admission Focus: Admission D: Patient is a 30-year-old female from [facility] ED. She was presented to the ED [...] attempt in which she was admitted to [facility] in [place] for 3 days. Patient states that she is supposed to be starting to work tomorrow. Patient is seeing Marianna Escamilla at [facility]. She sees her once a month. Her PCP is Michael Schuster([place] Paitent states that she was taking Prozac [...] She signed ALFREDO for Marianna Escamilla of [facility] (need to be faxed if needed). Patient didn't have lists of medicatios with her. Nurse called the [facility]- no records of medications found. Dr. Win is aware and ordered to hold off Cephalexin. Patient needs a tour on unit. Electronically Signed By: PRICE DEE RN On: 07/22/2015 11:19 PM Modified by and Electronically Signed by: PRICE DEE RN On: 07/22/2015 11:19 PM Source: [facility] POWERCHART Document Id: [id number] documented in this encounter Miscellaneous Notes Miscellaneous [...] ROLLINS RN - 07/26/2015 13:39 CDT Source: [facility] Document Id: [id number] CDT!10 Miscellaneous - Conversion, Historical Provider Ser - 07/26/2015 1:15 PM CDT Coding Summary-Paper Based CODING DATE: 08/06/2015 FINAL [facility] STATUS: * Discharged to Home or Self [...] Revised Date Saved: 08/05/2015 07:46 am Source: [facility] Document Id: [id number] Ori - Grayson Mejia - 07/26/2015 10:30 AM CDT Hospital Patient Education The following Patient Education Materials have been given to the patient: Patient Education Materials: Source: [facility] Glio Document Id: [id number] Ori - Nya Rollins R.N. - 07/26/2015 [...] ROLLINS RN - 07/26/2015 10:25 CDT [facility]: [facility] Document Id: [id number] CDT!90 Miscellaneous - Nya Rollins R.N. - [...] ROLLINS RN - 07/26/2015 10:24 CDT Source: [facility] Document Id: [id number] CDT!15 Ori - Nya Rollins R.N. - 07/26/2015 9:54 AM CDT Team Meeting Notes Team Meeting Notes Entered On: 07/26/2015 9:55 CDT Performed On: 07/26/2015 9:54 CDT by NYA ROLLINS RN Team Notes Team Meeting Grid Discipline : Behavioral Health Nurse, Other: Psychiatric provider, psychologist, ED Mine Technician, Popeye, Discharge planning nurse Topics : Plan of care, Other: Discharge planning NYA ROLLINS RN - 07/26/2015 9:54 CDT Source: [facility]io Document Id: [id number] CDT!6 Ori - Alessandra Masterson R.N. - [...] MASTERSON RN - 07/26/2015 1:48 CDT Source: [facility] Document Id: [id number] CDT!61 Miscellaneous - Alessandra Masterson RGordonN. - [...] MASTERSON RN - 07/26/2015 1:47 CDT Source: [facility] Document Id: [id number] CDT!9 Miscellfelicita - Jahaira [place] RGordonNGordon - [...] FROST RN - 07/25/2015 17:59 CDT Source: [facility] Document Id: [id number] CDT!96 Miscellaneous - Jahaira Frost R.N. - [...] TIFFANIE WIN - 07/25/2015 16:31 CDT Source: [facility] POWERCHART Document Id: [id number] CDT!21 Miscellaneous - Jahaira Frost R.N. - [...] FROST RN - 07/25/2015 9:47 CDT Source: [facility] Medical[facility] Document Id: [id number] CDT!5 Miscellaneous - Jahaira Frost R.N. - [...] No apparent problem Ulices Score : 20 JAHAIRA FROST RN - 07/25/2015 9:04 CDT Musculoskeletal [...] FROST RN - 07/25/2015 9:04 CDT Source: [facility] Document Id: [id number] CDT!108 Miscellaneous - Jorge Escobar V - [...] : Independent Lower Body Dressing(Clothing) : Independent JAHAIRA FROST RN - 07/25/2015 9:03 CDT Elimination [...] FROST RN - 07/25/2015 9:03 CDT Source: [facility] Document Id: [id number] CDT!21 Emilee Bacon R.N. - 07/25/2015 2:00 [...] OLIVER RN - 07/25/2015 2:00 CDT Source: [facility] Document Id: [id number] CDT!8 Emilee Bacon R.N. - 07/25/2015 1:57 [...] OLIVER RN - 07/25/2015 1:58 CDT Source: [facility] Document Id: [id number] CDT!52 Ori - Tiffanie Win R.N. - [...] TIFFANIE WIN - 07/24/2015 18:05 CDT Source: [facility] Document Id: [id number] CDT!8 Maria R Parks R.N. - 07/24/2015 [...] R PETERS RN - 07/24/2015 16:54 CDT Prescott Coma Eye Opening Response Prescott : Spontaneously Best Verbal Response Larua : Oriented Best Motor Response Prescott : Obeys simple commands Laura Coma Score [...] : Right Abnormality : Rash MARIA R EPTERS RN - 07/24/2015 16:54 CDT Skin Color [...] PETERS RN - 07/24/2015 16:54 CDT [facility] POWER[facility] Document Id: [id number] CDT!97 Miscellaneous - Maria R Peters R.N. [...] PETERS RN - 07/24/2015 16:24 CDT Source: [facility] Document Id: [id number] CDT!3 Miscellaneous - Maria R Peters R.N. [...] PETERS RN - 07/24/2015 16:22 CDT Source: [facility] Document Id: [id number] CDT!17 Miscellaneous - Nilda Arteaga R.N. - [...] ARTEAGA RN - 07/24/2015 14:05 CDT Source: [facility] Document Id: [id number] CDT!20 Miscellaneous - Nilda Arteaga R.N. - [...] ARTEAGA RN - 07/24/2015 14:07 CDT Source: [facility] Document Id: [id number] CDT!5 Emilee Bacon R.N. - 07/24/2015 12:41 [...] OLIVER RN - 07/24/2015 0:41 CDT Source: [facility] Document Id: [id number] CDT!8 Emilee Bacon R.N. - 07/24/2015 12:38 [...] OLIVER RN - 07/24/2015 0:38 CDT Source: [facility] POWERCHART Document Id: [id number] CDT!49 Miscellaneous - Isiah Clement R.N. - [...] 18:29 CDT Laura Coma Eye Opening Response [place] : Spontaneously Best Verbal Response Prescott : Oriented Best Motor Response Laura : [...] CLEMENT RN - 07/23/2015 18:29 CDT [facility] Document Id: [id number] CDT!98 Miscellaneous - Maria R Peters R.N. - 07/23/2015 5:40 PM [...] TIFFANIE WIN - 07/23/2015 17:40 CDT Source: [facility] Glio Document Id: [id number] CDT!12 Ori - Aileen Lamb L.G.S.W. - 07/23/2015 2:25 PM CDT Hospital Patient Education The following Patient Education Materials have been given to the patient: Patient Education Materials: [facility] Document Id: [id number] Ori - Aileen Lamb L.G.S.W. - 07/23/2015 2:24 PM CDT Hospital Patient Education The following Patient Education Materials have been given to the patient: Patient Education Materials: [facility] Document Id: [id number] Ori - Rajendra Servin R.N. - 07/23/2015 [...] None Urinary Elimination : Voiding, no difficulties RAJENDRA SERVIN 07/23/2015 14:17 CDT Integumentary Skin Abnormality/Location [...] RAJENDRA SERVIN - 07/23/2015 14:17 CDT Source: [facility] Document Id: [id number] CDT!85 Ori - Grayson Mejia - 07/23/2015 2:01 PM CDT [facility] Patient Education The following Patient Education Materials have been given to the patient: Patient Education Materials: Source: [facility] Document Id: [id number] Ori - Aileen Lamb L.G.S.W. - 07/23/2015 1:36 PM CDT [facility] Patient Education The following Patient Education Materials have been given to the patient: Patient Education Materials: Source: [facility] Document Id: [id number] Ori - Rajendra Servin, RGordonNGordon - 07/23/2015 12:22 PM CDT Team Meeting Notes Team Meeting Notes Entered On: 07/23/2015 12:22 CDT Performed On: 07/23/2015 12:22 CDT by RAJENDRA SERVIN Team Notes Team Meeting Grid Discipline : Behavioral Health Nurse, Physician, Mine Technician, Other: Psychologist Topics : Plan of care MALATHI RAJENDRA Becerril - 07/23/2015 12:22 CDT Source: [facility] Glio Document Id: [id number] CDT!6 Ori - Rajendra Servin RGordonNGordon - [...] ADLs Adult Nutrition Lunch : 0 % MAGEDLIANANJALI Rola - 07/23/2015 14:03 CDT Diet Type : Diet -- 07/22/15 20:57:00 CDT, General (Regular) Feeding Assistance : Independent Breakfast : 40 % NILDA ARTEAGA RN - 07/23/2015 9:42 CDT [facility] Document Id: [id number] CDT!15 Ori - Alessandra Masterson RGordonNGordon - [...] MASTERSON RN - 07/23/2015 1:07 CDT [facility] Document Id: [id number] CDT!8 Miscellaneous - Alessandra Masterson R.N. - [...] Integumentary Integumentary Patient Stated Symptoms : None ALESSANRDA MASTERSON RN - 07/23/2015 1:07 CDT Skin [...] MASTERSON RN - 07/23/2015 1:07 CDT [facility] Document Id: [id number] CDT!55 Miscellaneous - Price Dee R.N. - [...] DEE RN - 07/22/2015 21:28 CDT Source: [facility] Document Id: [id number] CDT!11 Miscellaneous - Price Dee RGordonNGordon - [...] DEE RN - 07/22/2015 21:21 CDT Source: [facility] Glio Document Id: [id number] CDT!77 Miscellaneous - Tiffanie Win R.N. - [...] TIFFANIE WIN - 07/22/2015 20:49 CDT Source: [facility] Glio Document Id: [id number] CDT!23 documented in this encounter Plan of [...] / Volume Laterality 07/23/2015 12:41 PM CDT [facility] - 07/23/2015 12:41 PM CDT [...] Organization Address City/State/ZIP Code Phon e Number [facility] [address] [place] [address] documented in this encounter Visit Diagnoses Not on filedocumented in this encounter Additional Health Concerns Assessment Noted Time PHQ-9 Depression Total Score: 19 01/20/2015 2:44 PM CS T documented as of this encounter
--- OUTSIDE RECORDS SUMMARY | 2021-12-08 16:58 | XMS_ITS | Encounter Summary ---
:[address] [facility] Address [address] [place] [address] Care Team Providers Name Role Phone Unavailable Primary Care Provider Unavailable Encounter Details Date Type Department Care Team Description 10/02/2011 Hospital Encounter HX NO MAPPING Kyler Pantoja III, M.D. (Skip), M.P.H. [address] [place], [place] [address] (Wo rk) Social History [...] How often do you attend methodist or mormon Never 01/31/2019 services? Do you [...] Date Recorded Female 01/11/2018 2:20 PM ROTO GRAVURE PRESS OPERATOR documented as of this encounter Plan of Treatment Not on filedocumented as of this encounter Visit Diagnoses Not on filedocumented in this encounter Additional Health Concerns Assessment Noted Time PHQ-9 Depression Total Score: 18 06/21/2009 11:24 AM C DT documented as of this encounter
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
--- OUTSIDE RECORDS SUMMARY | 2021-12-08 16:58 | XMS_ITS | Encounter Summary ---
:1985 Author Organization [facility] Address [address] [place] [address] Care Team Providers Name Role Phone Unavailable Primary Care Provider Unavailable Encounter Details Date Type Department Care Team Description 08/25/2009 Hospital Encounter HX [facility] Navi Major M.D. [address], [place] [address] (Wo rk) Social History Tobacco [...] often do you attend jehovah's witness or christianity Never 01/31/2019 services? 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 - 08/25/2009 12:00 AM CDT [id number] IMPRESSION/REPORT/PLAN ThinPrep is obtained. We will see [...] BARAKAT MD On 08/26/2009 02:40 PM Source: [facility] MHSDOLBEYNONRADSYS Document Id: [id number] documented in this encounter Miscellaneous Notes Miscellaneous [...] Patient ( ) ( ) Call for Supervisor [place] ( ) Follow up on Results ( x ) Other: send letter PROVIDER: ( ) Call Physician ( ) Call Pharmacist ( ) Call Lab ( ) Other: Special Instructions: Comments: Source: [facility] POWERCHART Document Id: [id number] Miscellaneous - Uche Barakat M.D. - 08/31/2009 12:00 AM CDT [id number] August 31, 2009 Wendi Belle [address] [place], [place] [id number] Dear Wendi, I just want to touch [...] our office at your earliest convenience at [phone]. Sincerely, Uche Barakat M.D. Obstetrics & Gynecology BDB/mgd Source: [facility] MHSDOLBEYNONRADSYS Document Id: [id number] Miscellaneous - Conversion, Historical Provider Ser - 08/25/2009 9:33 AM CDT Adult Blocker Automatic Intake/History Adult Blocker Automatic Intake/History Entered On: 08/25/2009 9:34 CDT Performed [...] ; Reviewed Date: 08/25/2009 9:32 CDT Source: [facility] POWERCHART Document Id: [id number] CDT!22 documented in this encounter Plan of [...] Thin Prep, Pap (08/25/2009 9:43 AM CDT) [facility] Univa Method Time Signature Interpretation Performed POWERCHART Comment: Test Performed by: [facility] Dpt of Lab Med and Pathology [address] [place], [place] [id number] Hospital Personnel Director: Delano bella III, M.D. Specimen Anatomical Collection Method Collection Time Receive d Time (Source) Location / / Volume Laterality Cervix/Endocervi 08/25/2009 9:43 AM 08/25 6:45 x CDT PM CDT Historical Provider LAB HISTORICAL ORDERS Performing Organization Address City/State/ZIP Code Phon e Number POWERCHART ThinPrep Screen HPV Reflex (08/25/2009 9:43 AM CDT) [facility] Univa Method Time Signature Interpretation [id number] POWERCHART HXThPrep Scrn See Comment POWERCHART [facility] Comment: A. ??ThinPrep Pap Test Screen (Cervical/ Endocervical HPV Reflex): Satisfactory for evaluation. Squamous epithelial cell abnormality Low grade squamous intraepithelial lesio n. 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 Screened at [facility] Cytology Analysi s Office [address] [place] [address] HXThPrep Scrn [facility] See Comment BERNABE KEYEST Comment: RESULT: MASSIMO Arreola(ASC P) HXThPrep Scrn [facility] See Comment BERNABE RCKRIST Comment: RESULT: 08/31/2009 13:30 Interpreted by: Nancy Arroyo M.D. Report electronically signed by Nancy Arroyo M.D. Transcribed by: [facility] ??08/31/2009 12:28:27 HX Spec Desc-Baldwin See Comment POWERCHART Comment: A. ??ThinPrep Pap Test Screen (Cervical/ Endocervical HPV Reflex): Received blood tinged specimen in ThinPr ep vial. Test Performed by: [facility] Dpt of Lab Med and Pathology [address] [place] [address] Hospital Personnel Director: Delano bella III, M.D. Specimen (Source) Anatomical [...]
--- OUTSIDE RECORDS SUMMARY | 2021-12-08 16:58 | XMS_ITS | Encounter Summary ---
:1985 Author Organization [facility] Address [address] [place] [address] Care Team Providers Name Role Phone Unavailable Primary Care Provider Unavailable Encounter Details Date Type Department Care Team Description 06/21/2009 Hospital Encounter HX [facility] FBHB FAMILYPRA Michelle Hankins, TATY, C.N.P. [address] [place] [address] (Wo rk) Social History Tobacco [...] How often do you attend bahai or latter-day Never 01/31/2019 services? 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/2018 2:20 PM SKEIN BLEACHER documented as of this encounter Progress Notes Michael Hankins, TATY, C.N.P. - 06/21/2009 12:00 AM CDT [id number] IMPRESSION/REPORT/PLAN 1. Depression. Strongly encouraged her to [...] No suicidality. SJM/clf Signed Michael Hankins, MSN, BOARD LAYER, CDE Family Nurse Practitioner Electronically Signed By:MICHAEL HANKINS CNP On 06/22/2009 03:42 PM Source: [facility] MHSDOLBEYNONRADSYS Document Id: [id number] documented in this encounter Miscellaneous Notes Miscellaneous - Michael Hankins APRN, C.N.P. - 06/21/2009 11:53 AM CDT Ambulatory Depart Summary [address] [address] Visit Information Name: WENDI ALEXANDER Current Date: [...] to the patient and/or family, guardian/caregiver. Source: [facility] Deep Driver Document Id: [id number] Electronically signed by [facility] Signal Officer [id number] at 07/17/2016 6:50 AM CDT Miscellaneous - Michael Hankins APRN, C.N.P. - 06/21/2009 11:24 AM CDT PHQ-9 PHQ-9 Entered On: 06/21/2009 11:26 CDT Performed On: 06/21/2009 11:24 CDT by MICHAEL HANKINS BOARD LAYER PHQ-9 Little interest or pleasure in doing [...] dealing with others: Very difficult MICHAEL HANKINS BOARD LAYER - 06/21/2009 11:24 CDT Source: [facility] Deep Driver Document Id: [id number] CDT!14 Miscellaneous - Jaquelin Sauceda Provider Ser - 06/21/2009 11:06 AM CDT Adult Superintendent Drivers Intake/History Document Has Been Updated Adult Superintendent Drivers Intake/History Entered On: 06/21/2009 11:07 CDT Performed On: 06/21/2009 11:06 CDT by SOTERO COLEMAN LPN Intake Temperature Oral: 37.0DegC(Converted to: 98.6DegF) Chief Complaint: recheck MICHAEL HANKINS BOARD LAYER - 06/21/2009 11:13 CDT Peripheral Pulse Rate: 80bpm Systolic Blood Pressure: 106mmHg Diastolic Blood Pressure: 60mmHg NIBP Mean: 75mmHg BP Location: Left upper extremity Actual Weight: 50.500kg(Converted to: 111.333lb) Dosing Weight Clinic: 50.50kg SOTERO COLEMAN LPN - 06/21/2009 11:06 CDT Subjective Pain Symptoms: No SOTERO COLEMAN LPN - 06/21/2009 11:06 CDT Dependent Habits Alcohol Use: Yes MICHAEL HANKINS BOARD LAYER - 06/21/2009 11:13 CDT Caffeine Use Grid [...] High Blood Pressure: Mother, Grandparents MICHAEL HANKINS BOARD LAYER - 06/21/2009 11:13 CDT Health History II Endocrine/Metabolic Past Med Hx Grid Diabetes: Mother, Grandparents MICHAEL HANKINS [facility] - 06/21/2009 11:13 CDT Psychiatric Past Medical History Grid Depression: Self, Mother, Sibling MICHAEL HANKINS [facility] - 06/21/2009 11:13 CDT Oncologic Past Medical History Grid Prostate Cancer: Grandparents [facility] - 06/21/2009 11:13 CDT Source: [facility] POWERCHART Document Id: [id number] CDT!22 documented in this encounter Plan of Treatment Not on filedocumented as of this encounter Visit Diagnoses Not on filedocumented in this encounter Additional Health Concerns Assessment Noted Time PHQ-9 Depression Total Score: 18 06/21/2009 11:24 AM C DT documented as of this encounter
--- OUTSIDE RECORDS SUMMARY | 2021-12-08 16:58 | XMS_ITS | Encounter Summary ---
:1985 Author Organization [facility] Address [address] [place] [address] Care Team Providers Name Role Phone Unavailable Primary Care Provider Unavailable Encounter Details Date Type Department Care Team Description 10/02/2011 Hospital Encounter HX NO MAPPING Lucy Jay M.D. [address] [place], [place] [address] (Wo rk) Social History [...] How often do you attend protestant or quaker Never 01/31/2019 services? 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/2018 2:20 PM PAINTER ROUGH documented as of this encounter Plan of Treatment Not on filedocumented as of this encounter Visit Diagnoses Not on filedocumented in this encounter Additional Health Concerns Assessment Noted Time PHQ-9 Depression Total Score: 18 06/21/2009 11:24 AM C DT documented as of this encounter
--- OUTSIDE RECORDS SUMMARY | 2021-12-08 16:58 | XMS_ITS | Encounter Summary ---
:1985 [facility] Address [address] [place] [address] Care Team Providers Name Role Phone Unavailable Primary Care Provider Unavailable Encounter Details Date Type Department Care Team Description 09/14/2009 Hospital Encounter HX [facility] Navi Major M.D. [address], [place] [address] (Wo rk) Social History Tobacco [...] How often do you attend amish or oriental orthodox Never 01/31/2019 services? Do [...] at Date Recorded Female 01/11/2018 2:20 PM TANK FARM GAUGER documented as of this encounter Progress Notes Uche Barakat M.D. - 09/14/2009 12:00 AM CDT [id number] IMPRESSION/REPORT/PLAN We will have her back in [...] BARAKAT MD On 09/27/2009 01:19 PM Source: [facility] MHSDOLBEYNONRADSYS Document Id: [id number] documented in this encounter Miscellaneous Notes Miscellaneous - Uche Barakat M.D. - 09/14/2009 2:06 PM CDT [place] [address] Visit Information Name: WILBERTHimaWENDI Current Date: 09/14/2009 14:06:58 Primary Care Provider: [facility] [phone] WENDI ALEXANDER has been given the following [...] to the patient and/or family, guardian/caregiver. Source: [facility] POWERCHART Document Id: [id number] Electronically signed by [facility] Salesperson Shoes [id number] at 07/17/2016 1:30 AM CDT Miscellaneous - Annabelle Godoy L.P.N. - 09/14/2009 2:00 PM CDT Reminder Msg Document Contains Addenda Addendum by ANNABELLE GODOY LPN on 13 January 2010 13:40:13 TANK FARM GAUGER card sent From: ANNABELLE GODOY LPN To: ANNABELLE GODOY LPN; Sent: 09/14/2009 14:00:35 CDT Show up: 01/12/2010 14:00:00 TANK FARM GAUGER Subject: Reminder Msg Due Date/Time: 02/25/2010 14:00:00 TANK FARM GAUGER Please Remember to: send card to remind pt. to come in for 6 month recheck -pap PATIENT: last pap was 08/25/2009 ( ) Call Patient ( ) Ask Patient to ( ) ( ) Call Relative ( ) Schedule Patient ( ) ( ) Call for Manufacturing Engineering Professor ( ) Follow up on Results ( ) Other: PROVIDER: ( ) Call Physician ( ) Call Pharmacist ( ) Call Lab ( ) Other: Special Instructions: Comments: Source: [facility] POWERCHART Document Id: [id number] Miscellaneous - Annabelle Godoy L.P.N. - 09/14/2009 1:28 PM CDT Adult Risk Management Intern Intake/History Adult Risk Management Intern Intake/History Entered On: 09/14/2009 13:29 CDT Performed [...] ; Reviewed Date: 08/25/2009 9:32 CDT Source: [facility] [employer] Document Id: [id number] documented in this encounter Plan of Treatment Not on filedocumented as of this encounter Visit Diagnoses Not on filedocumented in this encounter Additional Health Concerns Assessment Noted Time PHQ-9 Depression Total Score: 18 06/21/2009 11:24 AM C DT documented as of this encounter
--- OUTSIDE RECORDS SUMMARY | 2021-12-08 16:58 | XMS_ITS | Encounter Summary ---
:1985 Author Organization [facility] Address [address] [place] [address] Care Team Providers Name Role Phone Unavailable Primary Care Provider Unavailable Encounter Details Date Type Department Care Team Description 03/04/2012 Hospital Encounter HX [facility] Shayne Woody M.D. [address] [place] [address] (Wo rk) Social History [...] How often do you attend denominational or nondenominational Never 01/31/2019 services? Do you [...] Date Recorded Female 01/11/2018 2:20 PM TESTER FOOD PRODUCTS documented as of this encounter Last Filed Vital Signs Vital Sign Reading Time Taken Comments Blood Pressure 102/58 03/04/2012 10:18 AM TESTER FOOD PRODUCTS Pulse - - Temperature - - Respiratory Rate - - Oxygen Saturation - - Inhaled Oxygen Concentration - - Weight 60.8 kg (134 lb 0.6 oz) 03/04/2012 10:18 AM TE[employer]ODU[employer] Height - - Body Mass Index 24.35 02/12/2012 1:41 PM TESTER FOOD PRODUCTS documented in this encounter Progress Notes Emmy Shannon M.D. - 03/04/2012 10:11 AM CST [id number] CHIEF COMPLAINT/REASON FOR VISIT OB followup HISTORY [...] SHANNON MD On: 03/05/2012 06:28 PM Source: [facility] MHSDOLBEYNONRADSYS Document Id: [id number] ER FOOD PRODUCTS documented in this encounter Procedure Notes Conversion, Historical Provider Ser - 03/04/2012 10:24 AM CST Urine Dipstick Urine Dipstick Entered On: 03/04/2012 10:24 TE[employer] Performed On: 03/04/2012 10:24 [employer] by MARKUS FREDERICK LPN Urine Dipstick UA Protein POC : Trace UA Glucose POC : Negative MARKUS FREDERICK LPN - 03/04/2012 10:24 TESTER [employer]OD [employer]ODUCTS Source: [facility] POWERCHART Document Id: [id number] documented in this encounter Miscellaneous Notes Miscellaneous - Emmy Shannon M.D. - 03/08/2012 12:17 PM CST Results Notification Document Contains Addenda Addendum by ZURDO GONZALEZ on 08 March 2012 17:06:22 [employer]ODU[employer] added to chart From: EMMY SHANNON MD To: ZURDO GONZALEZ Sent: 03/08/2012 12:17:30 [employer] ! Show up: 03/08/2012 18:17:30 [facility] Subject: Results Notification Actions: Note to Nurse Source: [facility] POWERCHART Document Id: [id number] Emmy Sapp M.D. - 03/04/2012 1:23 PM CST Ambulatory Patient Summary [address] [address] Visit Information Name: WENDI ODONNELL [facility] Number: [id number] Visit Date: 03/04/2012 13:23:51 Attending [...] your provider for clarification. Additional Information: Source: [facility] POWERCHART Document Id: [id number] ER [employer] Emmy Sapp M.D. - 03/04/2012 1:23 PM CST Ambulatory Depart Summary [address] [address] Visit Information Name: WENDI ODONNELL [facility] Number: [id number] Visit Date: 03/04/2012 13:23:50 Attending [...] your provider for clarification. 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 Basketball Player Intake/History Entered On: 03/04/2012 10:19 [employer] Performed On: 03/04/2012 10:18 [employer] by MARKUS FREDERICK LPN Intake Chief Complaint [...] 60.80kg MARKUS FREDERICK LPN - 03/04/2012 10:18 TE[employer] Subjective Pain Symptoms : No MARKUS FREDERICK LPN - 03/04/2012 10:18 [employer] Dependent Habits Tobacco Use/Currently Using : No Smoking Status : Unknown if ever smoke MARKUS FREDERICK LPN - 03/04/2012 10:18 [employer] Caffeine Use Grid Caffeine Use : Current Type : Energy drinks Frequency : Weekly Amount : 1 MARKUS FREDERICK MICK - 03/04/2012 10:18 [employer] Allergy Allergies (Active) NKA Estimated Onset Date: Unspecified ; Created By: SOTERO COLEMAN LPN; Reaction Status: Active ; Category: Drug ; Substance: NKA ; Type: Allergy ; Updated By: SOTERO COLEMAN LPN; Source: Family ; Reviewed Date: 03/04/2012 10:18 TESTER [employer]OD [employer]ODU[employer] Source: [facility] POWERCHART Document Id: [id number] documented in this encounter Plan of Treatment Not on filedocumented as of this encounter Procedures Procedure Name Priority Date/Time Associated Diagnosis Comme nts GRP B STREP (S. Routine 03/04/2012 10:50 AM Resul ts for this AGALACTIAE) CULTURE [employer] procedur e are in the results section. BACTERIAL CULTURE, Routine 03/04/2012 10:50 AM Re sults for this AEROBIC, URINE [employer] procedure are in the results section. HX UA GLUCOSE POC Routine 03/04/2012 10:24 AM Res ults for this [employer] procedure are i n the results section. HX UA GLUCOSE POC Routine 03/04/2012 10:24 AM Res ults for this [employer] procedure are i n the results section. DIPSTICK, POCT, U Routine 03/04/2012 10:24 AM Res ults for this (DIPC1) [employer] procedure are i n the results section. DIPSTICK, POCT, U Routine 03/04/2012 10:24 AM Res ults for this (DIPC1) [employer] procedure are i n the results section. documented in this encounter Results Bacterial Culture, Aerobic, Urine (03/04/2012 10:50 AM TE[employer]ODU[employer]) [facility] gist Method Time Signature Bacterial POWERCHART Culture, Aerobic, Urine HXFinal See POWERCHART scanned/paper report. Test performed at [facility]. Specimen (Source) Anatomical Collection Method Collection Time Re ceived Time Location / / Volume Laterality Urine, Clean 03/04/2012 10:50 Catch AM [employer] Emmy Shannon M.D. LAB MICROBIOLOGY - GENERAL O RDERABLES Performing Organization Address City/State/ZIP Code Phon e Number POWERCHART Grp B Strep (S. Agalactiae) Culture (03/04/2012 10:50 AM [employer]) Patholo gist Method Time Signature Grp B Strep POWERCHART (S. agalactiae) Culture HXFinal See POWERCHART scanned/paper report. Test performed at [facility]. Specimen (Source) Anatomical Collection Method Collection Time Re ceived Time Location / / Volume Laterality Vaginal/Rectum 03/04/2012 10:50 AM [employer] Emmy Shannon M.D. LAB MICROBIOLOGY - GENERAL O RDERABLES Performing Organization Address City/State/ZIP Code Phon e Number POWERCHART HX UA GLUCOSE POC (03/04/2012 10:24 AM TE[employer]) P athologist Signature Glucose, POCT, Negative POWERCHART U Specimen (Source) Anatomical Collection Method Collection Time Re ceived Time Location / / Volume Laterality 03/04/2012 10:24 AM TE[employer] Historical Provider LAB HISTORICAL ORDERS Performing Organization Address [facility] Code Phon e Number POWERCHART Dipstick, POCT, Urine (lab) (03/04/2012 10:24 AM TE[employer]) P athologist Signature Protein, POCT, Trace POWERCHART U Specimen (Source) Anatomical Collection Method Collection Time Re ceived Time Location / / Volume Laterality 03/04/2012 10:24 AM TE[employer] Historical Provider LAB POCT ORDERABLES - DEVICE Performing Organization Address [facility] Code Phon e Number POWERCHART HX UA GLUCOSE POC (03/04/2012 10:24 AM TE[employer]) P athologist Signature Glucose, POCT, Negative POWERCHART U Specimen (Source) Anatomical Collection Method Collection Time Re ceived Time Location / / Volume Laterality 03/04/2012 10:24 AM [employer] Historical Provider LAB HISTORICAL ORDERS Performing Organization Address City/State/ZIP Code Phon e Number POWERCHART Dipstick, POCT, Urine (lab) (03/04/2012 10:24 AM [employer]) P athologist Signature Protein, POCT, Trace POWERCHART U Specimen (Source) Anatomical Collection Method Collection Time Re ceived Time Location / / Volume Laterality 03/04/2012 10:24 AM TE[employer] Historical Provider LAB POCT ORDERABLES - DEVICE Performing Organization Address City/State/ZIP Code Phon e Number POWERCHART documented in this encounter Visit Diagnoses Not on filedocumented in this encounter Additional Health Concerns Assessment Noted Time PHQ-9 Depression Total Score: 18 06/21/2009 11:24 AM C DT documented as of this encounter
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
--- NOTE | 2021-12-08 17:00 | CRLHL7_ITS ---
For Patients: As a result of the Century Cures Act, medical imaging exams and procedure reports are released immediately into your electronic medical record. You may view this report before your referring provider. If you have questions, please contact your health care provider. INDICATION: VAGINAL BLEEDING IN EARLY COMPARISON: 11/28/2021 TECHNIQUE: Real-time hurst-scale imaging of the pelvis was performed. FINDINGS: Sonographic imaging demonstrates a single living intrauterine gestation. The embryo demonstrates a regular cardiac rate measuring 165 beats per minute. The embryo`s crown-rump length measurement of 1.6 cm corresponds to a gestational age of 8 weeks 0 days with a sonographic due date of 07/20/2022. There is a normal-appearing yolk sac. There are no gross abnormalities noted within the embryo at this early state of development. The gestational sac has a normal appearance. There is no evidence of a perigestational hemorrhage. The amount of fluid within the sac appears appropriate for gestational age. The cervix is closed. The myometrium appears normal. The ovaries are of normal size. There are no suspicious fluid collections noted in the cul-de-sac. IMPRESSION: Normal first trimester OB ultrasound exam. Gestational age calculated at 8 weeks 0 days with a sonographic due date of 07/20/2022. Interval resolution of previously noted subchorionic hemorrhages. Dictated by Luis A Reeves MD @ 12/08/2021 8:06:07 PM (Electronically Signed)
== END 2021-12-08 16:51 | disposition home or self-care (01) ==
PROVIDERS: PCP Family Medicine; Visit Provider Obstetrics & Gynecology
DX: O20.9 Hemorrhage in early pregnancy, unspecified (principal); Z3A.08 8 weeks gestation of pregnancy
CPT/HCPCS: 76817

== ENCOUNTER 2021-12-09 13:15 | Outpatient (CLI) | payer BC, SELFPAY ==
--- OUTSIDE RECORDS SUMMARY | 2021-12-09 13:20 | XMS_ITS | Encounter Summary ---
:1985 Author Organization [facility] Address [address] [place] [address] Care Team Providers Name Role Phone Jana Granda M.D. Primary Care Provider Reason for Visit Reason Comments Med Refill Encounter Details Date Type Department Care Team Description 01/23/2021 Refill Department of Obstetrics and Joy Lee, Med Refill Gynecology in [place] [address] [address] [place] [address] [phone] Social History Tobacco Use Types Packs/Day Years [...] often do you attend jehovah's witness or zoroastrian Never 01/31/2019 services? Do you [...] to pay for the very basics like [employer] hat hard 11/27/2019 food, housing, medical care, [...] at Date Recorded Female 01/11/2018 2:20 PM FIREMAN documented as of this encounter Plan of Treatment Not on filedocumented as of this encounter Visit Diagnoses Not on filedocumented in this encounter Additional Health Concerns Assessment Noted Time PHQ-9 Depression Total Score: 16 12/09/2019 10:25 AM C DT documented as of this encounter Care Teams Career Development Consultant Relationship Specialty Start Date End Date Jana Granda M.D. PCP - General 03/25/[address] [place] [address] [place] [address] documented as of this encounter
--- OUTSIDE RECORDS SUMMARY | 2021-12-09 13:20 | XMS_ITS | Encounter Summary ---
:1985 Author Organization [facility] Address [address] [place] [address] Care Team Providers Name Role Phone Jana Granda M.D. Primary Care Provider Encounter Details Date Type Department Care Team Description 09/13/2021 Orders Only [facility] PCP [facility] Anastasiya Pierce M.D. Screening Lipid [address] [place] [address] (Wo rk) Social History Tobacco Use [...] 11/27/2019 relatives? How often do you attend tenriism or druze Never 01/31/2019 services? Do you belong to any clubs or organizations such as No 01/31/2019 tenriism groups, unions, fraternal or athletic groups, or [...] at Date Recorded Female 01/11/2018 2:20 PM FRONT SERVICES AGENT documented as of this encounter Plan [...] as of this encounter Care Teams Senior Caregiver Relationship Specialty Start Date End Date Jana Granda M.D. PCP - General 03/25/[address] [place] [address] documented as of this encounter
--- OUTSIDE RECORDS SUMMARY | 2021-12-09 13:20 | XMS_ITS | Clinical Summary ---
:1985 Author Organization [facility] Address [address] [place] [address] Care Team Providers Name Role Phone Jana Granda M.D. Primary Care Provider Source Comments Patient records contain information from all sites at [facility]. For routine questions regarding patient records, call [phone] during business hours, M-F 8:00 AM - 5:00 PM Central Time. Record requests for emergency care only can be directed to [phone] at any time.[facility] Allergies Active Allergy Reactions Severity Noted Date [...] participated in DBT through [facility] in [place], but that stop ped with onset of [...] How often do you attend mosque or religion Never 01/31/2019 services? 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/2018 2:20 PM PICK UP Last Filed Vital Signs Vital Sign Reading Time Taken Comments Blood Pressure 100/60 12/09/2019 10:17 AM CDT Pulse 80 12/09/2019 10:17 AM CDT Temperature 37.1 ??C (98.8 ??F) 11/27/2019 9:34 AM CDT Respiratory Rate 20 12/09/2019 10:17 AM CDT Oxygen Saturation 98% 04/17/2018 1:25 PM PICK UP Inhaled Oxygen Concentration - - Weight 55.4 kg (122 lb 3.9 oz) 01/14/2020 11:02 AM PICK UP Height 162 cm (5' 3.78) 12/09/2019 10:17 [...] Dates Phone Address Type / Group [facility] CARE [id number] 2021-Presen [phone] [address] Medicaid HMO t [address] [place] [address] Supervisor Relationship Specialty Start Date End Date Jana Granda M.D. PCP - General 03/25/[address] [place], [place] [address] [address]
--- OUTSIDE RECORDS SUMMARY | 2021-12-09 13:21 | XMS_ITS | Encounter Summary ---
:1985 Author Organization [facility] Address [address] [place] [address] Care Team Providers Name Role Phone Marisel Ferrer M.D. Primary Care Provider [phone] Reason for Visit Reason Comments Nurse Visit OB EDU Encounter Details Date Type Department Care Team Description 01/14/2020 Virtual Visit Department of Shayne Lee M.D. [address], [place] [address] Examination Obstetrics and Marylou Urena RTyler [address] [place] [address] Other Normal Gynecology in [address] [address] Social History Tobacco Use Types [...] How often do you attend buddhist or jew Never 01/31/2019 services? 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/2018 2:20 PM COSTUME SEAMSTRESS documented as of this encounter Last Filed Vital Signs Vital Sign Reading Time Taken Comments Blood Pressure - - Pulse - - Temperature - - Respiratory Rate - - Oxygen Saturation - - Inhaled Oxygen Concentration - - Weight 55.4 kg (122 lb 3.9 oz) 01/14/2020 11:02 AM COSTUME SEAMSTRESS Height - - Body Mass Index 21.13 [...] antepartum education topics and in accordance with [facility] guidelines. Patient states understanding to all topics presented. All questions answered during appointment. Written information regarding topics presented provided for patient to take home. Please see education tab for further details about topics addressed. UME SEAMSTRESS documented in this encounter Plan of Treatment Not on filedocumented as of this encounter Visit Diagnoses Diagnosis Examination Other Normal Pregna ncy First Trimester (HCC) documented in this encounter Additional Health Concerns Assessment Noted Time PHQ-9 Depression Total Score: 16 12/09/2019 10:25 AM C DT documented as of this encounter Care Teams Crystal Calibrator Relationship Specialty Start Date End Date Marisel Ferrer M.D. PCP - General Family Medicine 07/11/18 03/24/[address] [place] [phone] documented as of this encounter
--- OUTSIDE RECORDS SUMMARY | 2021-12-09 13:21 | XMS_ITS | Encounter Summary ---
:1985 Author Organization [facility] Address [address] [place] [address] Care Team Providers Name Role Phone Jana Granda M.D. Primary Care Provider Encounter Details Date Type Department Care Team Description 05/14/2020 Orders Only [facility] PCP [facility] ANNYT Jarvis Laguerre Jr., M.D. [address] [place] [address] [address] [place] [phone] (Wo rk) Social History Tobacco [...] How often do you attend orthodox or islam Never 01/31/2019 services? 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/2018 2:20 PM LEGAL EXECUTIVE ASSISTANT documented as of this encounter Plan of Treatment Not on filedocumented as of this encounter Visit Diagnoses Not on filedocumented in this encounter Additional Health Concerns Assessment Noted Time PHQ-9 Depression Total Score: 16 12/09/2019 10:25 AM C DT documented as of this encounter Care Teams Family Consumer Scientist Relationship Specialty Start Date End Date Jana Granda M.D. PCP - General 03/25/[address] [place] [address] [place] [address] documented as of this encounter
--- OUTSIDE RECORDS SUMMARY | 2021-12-09 13:21 | XMS_ITS | Encounter Summary ---
:1985 Author Organization [facility] Address [address] [place] [address] Care Team Providers Name Role Phone Jana Granda M.D. Primary Care Provider Encounter Details Date Type Department Care Team Description 12/14/2020 Orders Only [facility] Anastasiya Pierce M.D. Screening Lipid [address] [facility] [place] [address] (Wo rk) Social History Tobacco Use [...] 11/27/2019 relatives? How often do you attend christian or amish Never 01/31/2019 services? Do you belong to any clubs or organizations such as No 01/31/2019 christian groups, unions, fraternal or athletic groups, or [...] at Date Recorded Female 01/11/2018 2:20 PM PROGRAM SERVICES ASSISTANT documented as of this encounter Plan of Treatment Not on filedocumented as of this encounter Visit Diagnoses Diagnosis Screening Lipid documented in this encounter Additional Health Concerns Assessment Noted Time PHQ-9 Depression Total Score: 16 12/09/2019 10:25 AM C DT documented as of this encounter Care Teams Auto Glass Technician Relationship Specialty Start Date End Date Jana Granda M.D. PCP - General 03/25/[address] [place] [address] [place] [address] documented as of this encounter
--- OUTSIDE RECORDS SUMMARY | 2021-12-09 13:21 | XMS_ITS | Encounter Summary ---
:1985 Author Organization [facility] Address [address] [place] [address] Care Team Providers Name Role Phone Jana Granda M.D. Primary Care Provider Reason for Visit Reason Comments Med Refill Encounter Details Date Type Department Care Team Description 01/11/2021 Refill Department of Obstetrics and Joy Lee, Med Refill Gynecology in [place] [address] [address] [address] [phone] Social History Tobacco Use Types Packs/Day Years [...] How often do you attend nondenominational or mu-ism Never 01/31/2019 services? Do you [...] to pay for the very basics like Gigzolo hat hard 11/27/2019 food, housing, medical care, [...] at Date Recorded Female 01/11/2018 2:20 PM PRESS OPERATOR [employer] documented as of this encounter Miscellaneous Notes Telephone Encounter - Joy Lee M.D. - 01/13/2021 10:57 AM PRESS OPERATOR [employer] Patient has not been seen recently and likely does not still need to be on iron. We can reassess herblood count and iron levels if she feels like this is something that needs, but her anemia was related to and delivery. S OPERATOR IN[employer] SHOP documented in this encounter Plan of Treatment Not on filedocumented as of this encounter Visit Diagnoses Not on filedocumented in this encounter Additional Health Concerns Assessment Noted Time PHQ-9 Depression Total Score: 16 12/09/2019 10:25 AM C DT documented as of this encounter Care Teams Dining Room Attendant Relationship Specialty Start Date End Date Jana Granda M.D. PCP - General 03/25/[address] [place] [address] ANNY Garcia [phone] documented as of this encounter
--- OUTSIDE RECORDS SUMMARY | 2021-12-09 13:21 | XMS_ITS | Encounter Summary ---
:1985 Author Organization [facility] Address [address] [place] [address] Care Team Providers Name Role Phone Jana Granda M.D. Primary Care Provider Reason for Visit Reason Onset Date Comments Testing For Upper Respiratory Virus Symptoms 04/27/2020 Encounter Details Date Type Department Care Team Description 04/27/2020 External Outreach Department of [facility] Corbin Mason Contact With And Medicine, Juan Alberto Julian D.O. (Suspected) Exposure Building, in [address] [facility] (Primary [place], [place] Dx) [address] [facility] [address] [place], [place] [phone] [address] (Work) [phone] Social History Tobacco Use Types Packs/Day Years [...] How often do you attend voodoo or mormonism Never 01/31/2019 services? Do you [...] to pay for the very basics like DTVCastw hat hard 11/27/2019 food, housing, medical care, [...] at Date Recorded Female 01/11/2018 2:20 PM HUMAN RESOURCES ANALYST documented as of this encounter Progress [...] documented as of this encounter Care Teams Food Service Attendant Relationship Specialty Start Date End Date Jana Granda M.D. PCP - General 03/25/[address] [place] [address] ANNY Garcia [phone] documented as of this encounter
--- OUTSIDE RECORDS SUMMARY | 2021-12-09 13:21 | XMS_ITS | Encounter Summary ---
:1985 Author Organization [facility] Address [address] [place] [address] Care Team Providers Name Role Phone Marisel Ferrer M.D. Primary Care Provider [phone] Reason for Visit Reason Comments COVID Inquiry Encounter Details Date Type Department Care Team Description 01/10/2020 Clinical Communication Central Appointment Line, Covid COVID Inquiry Office in [facility] [address] [place] [address] Social History Tobacco Use Types [...] How often do you attend adventism or christianity Never 01/31/2019 services? 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/2018 2:20 PM BULLET SWAGING MACHINE OPERATOR documented as of this encounter Miscellaneous Notes Telephone Encounter - Polina Peralta - 01/10/2020 12:01 PM CST COVID DOS/PASS Screening What is the patient requesting?: COVID-19 Testing Only (End screening - follow local process) Plan: Endpoint recommendation: Testing indicated, sent patient to [facility] located at [address] [place] [address]. The entrance is on the north side of the building. You must call [phone] for an appointment time.Testing hours are Daily [...] sending patient for testing in T or [facility], an email notification is required. ET SWAGING MACHINE OPERATOR documented in this encounter Plan of Treatment Not on filedocumented as of this encounter Visit Diagnoses Not on filedocumented in this encounter Additional Health Concerns Infection Onset Date Last Indicated Resolved Time COVID19 Pending 01/10/2020 01/10/2020 01/11/2020 4:27 PM BULLET SWAGING MACHINE OPERATOR Assessment Noted Time PHQ-9 Depression Total Score: 16 12/09/2019 10:25 AM C DT documented as of this encounter Care Teams Global Head Advertiser Solutions Relationship Specialty Start Date End Date Marisel Ferrer M.D. PCP - General Family Medicine 07/11/18 03/24/200 [place] [phone] documented as of this encounter
--- OUTSIDE RECORDS SUMMARY | 2021-12-09 13:21 | XMS_ITS | Encounter Summary ---
:1985 Author Organization [facility] Address [address] [place] [address] Care Team Providers Name Role Phone Marisel Ferrer M.D. Primary Care Provider [phone] Encounter Details Date Type Department Care Team Description 11/12/2019 Hospital Encounter Department of [place], Pregnanc y Examination Laboratory Medicine Juana Hamilton Test With Positive in [facility] [address] [place] [address] [phone] Social History Tobacco Use Types Packs/Day Years [...] How often do you attend jewish or shinto Never 01/31/2019 services? Do you [...] to pay for the very basics like BALALIKEA hat hard 11/27/2019 food, housing, medical care, [...] at Date Recorded Female 01/11/2018 2:20 PM TOLL PATROLMAN documented as of this encounter Medications at [...] supplements. ??If the result does not ma [facility] clinical observations, repeat testing after patient refrains fr om the use of supplements for at least 12 hours. Specimen Anatomical Collection Method Collection Time Receive d Time (Source) Location / / Volume Laterality Blood (Blood, 11/12/2019 3:59 PM 11/12/19 20 6:13 Venous) CDT PM CDT Joy Lee M.D. LAB BLOOD ADD-ON Performing Organization Address City/State/ZIP Code Phon e Number [facility] [place] [address] [place] [address] System in [place] [address] [facility] documented in this encounter Visit Diagnoses Diagnosis Examination Test With Positive Result (HCC) documented in this encounter Additional Health Concerns Assessment Noted Time PHQ-9 Depression Total Score: 15 09/28/2017 3:51 PM CD T documented as of this encounter Care Teams Automatic Presser Relationship Specialty Start Date End Date Marisel Ferrer M.D. PCP - General Family Medicine 07/11/18 03/24/200 [address] [address] documented as of this encounter
--- OUTSIDE RECORDS SUMMARY | 2021-12-09 13:21 | XMS_ITS | Encounter Summary ---
:1985 Author Organization [facility] Address [address] [place] [address] Care Team Providers Name Role Phone Jana Granda M.D. Primary Care Provider Reason for Visit Reason Onset Date Comments Testing For Upper Respiratory Virus Symptoms 11/12/2020 Encounter Details Date Type Department Care Team Description 11/12/2020 External Outreach Department of [facility] Corbin Mason Contact With And Medicine, Juan Alberto Julian D.O. (Suspected) Exposure Building, in [address] To COVID-19 (Primary [place], [place] Dx) [address] [facility] [address] [place], [place] [phone] [address] (Work) [phone] Social History Tobacco Use Types Packs/Day Years [...] How often do you attend taoist or christianity Never 01/31/2019 services? Do you [...] to pay for the very basics like TruLeafw hat hard 11/27/2019 food, housing, medical care, [...] at Date Recorded Female 01/11/2018 2:20 PM AIRCRAFT QUALITY CONTROL INSPECTOR documented as of this encounter Progress Notes [...] RNA, V Symptomatic (11/13/2020 12:25 PM CDT) [facility] Method Time Signature SARS-CoV-2 Swab, 11/14/2020 [...] pe rformed using the Aptima SARS-CoV-2 assay ([employer] on the xkotos tem under emergency use authorization (EUA) by the U.S. Food and Drug Administ ration. Fact sheets for this EUA assay can be fo und at the following links: For Healthcare Providers: https://www.fd a.gov/media/529659/download For Patients: https://www.fda.gov/media/ 977490/download Specimen Anatomical Collection Method Collection Time Receive d Time (Source) Location / / Volume Laterality Varies 11/13/2020 12:25 11/14/2020 (Nasopharynx) PM CDT 12:04 AM CDT Corbin Mason D.O. LAB MICROBIOLOGY - GENERAL O ZAHIRA Performing Organization Address City/State/RUST Code Phon e Number [facility] [address] [place] [address] [place] [address] [address] documented in this encounter Visit Diagnoses Diagnosis Contact With And (Suspected) Exposure To COVID-19 - Primary documented in this encounter Additional Health Concerns Infection Onset Date Last Indicated Resolved Time COVID19 Pending 11/12/2020 11/13/2020 11/14/2020 8:49 AM CDT Assessment Noted Time PHQ-9 Depression Total Score: 16 12/09/2019 10:25 AM C DT documented as of this encounter Care Teams Restorative Coordinator Relationship Specialty Start Date End Date Jana Granda M.D. PCP - General 03/25/[address] [place] [address] [place] [phone] documented as of this encounter
--- OUTSIDE RECORDS SUMMARY | 2021-12-09 13:21 | XMS_ITS | Encounter Summary ---
:1985 Author Organization [facility] Address [address] [place] [address] Care Team Providers Name Role Phone Marisel Ferrer M.D. Primary Care Provider [phone] Encounter Details Date Type Department Care Team Description 01/14/2020 Silent Schedule Department of Obstetrics Jef Casiano Jr., and Gynecology in [place], [place] [address] [facility] [place] [phone] (Wo rk) Social History Tobacco Use Types [...] 11/27/2019 relatives? How often do you attend mormonism or yazdanism Never 01/31/2019 services? Do you belong to any clubs or organizations such as No 01/31/2019 mormonism groups, unions, fraternal or athletic groups, or [...] Date Recorded Female 01/11/2018 2:20 PM HEALTHCARE REPRESENTATIVE documented as of this encounter Plan of Treatment Not on filedocumented as of this encounter Procedures Procedure Name Priority Date/Time Associated Comments Diagnosis US OB LIMITED RAD - Routine 01/14/2020 11:03 Results f or this (most inpatients AM HEALTHCARE REPRESENTATIVE Threatened procedure a re in and all the results outpatients) section. documented in this encounter Results US OB Limited (01/14/2020 11:03 AM HEALTHCARE REPRESENTATIVE) P athologist Signature CRL 16.9 mm Anatomical Region Laterality Modality Ultrasound OB RST LOS, Ultrasound ARZ LOS, Ultrasound FLA LO S, N/A Ultrasound Ultrasound ARZ LOS Specimen (Source) Anatomical Location Collection Method / Collectio n Time Received Time / Laterality Volume Narrative 01/14/2020 11:03 AM HEALTHCARE REPRESENTATIVE For ultrasound ??details see imbedded report in [...] documented as of this encounter Care Teams Studio Potter Relationship Specialty Start Date End Date Marisel Ferrer M.D. PCP - General Family Medicine 07/11/18 03/24/20 [address], [place] [address] documented as of this encounter
--- OUTSIDE RECORDS SUMMARY | 2021-12-09 13:21 | XMS_ITS | Encounter Summary ---
:1985 Author Organization [facility] Address [address] [place] [address] Care Team Providers Name Role Phone Marisel Ferrer M.D. Primary Care Provider [phone] Encounter Details Date Type Department Care Team Description 11/27/2019 Silent Schedule Department of Obstetrics Jef Casiano Jr., and Gynecology in [place], [place] [address] [facility] [place] [phone] (Wo rk) Social History Tobacco Use Types [...] or more drinks on one occasion? Ne aureloi 07/19/2018 Social Isolation Answer Date Recorded In a typical week, how many times do you talk on Once a week 11/27/2019 the phone with family, friends, or neighbors? How often do you get together with friends or Once a week 11/27/2019 relatives? How often do you attend nondenominational or yazidism Never 01/31/2019 services? Do you belong to [...] at Date Recorded Female 01/11/2018 2:20 PM PHOTOGRAPHIC SUPERVISOR documented as of this encounter Plan [...] documented as of this encounter Care Teams Jewel Stripper Relationship Specialty Start Date End Date Marisel Ferrer M.D. PCP - General Family Medicine 07/11/18 03/24/20 [address] [place] [phone] documented as of this encounter
--- OUTSIDE RECORDS SUMMARY | 2021-12-09 13:21 | XMS_ITS | Encounter Summary ---
:[address] [facility] Address [address] [place] [address] Care Team Providers Name Role Phone Marisel Ferrer M.D. Primary Care Provider [phone] Encounter Details Date Type Department Care Team Description 12/09/2019 Silent Schedule Department of Obstetrics Rauenhorst, and Gynecology in [place], [place] [address] [phone] (Wo rk) Social History Tobacco Use Types [...] How often do you attend catholic or jewish Never 01/31/2019 services? Do you belong to [...] at Date Recorded Female 01/11/2018 2:20 PM CHIP MIXING MACHINE OPERATOR documented as of this encounter Plan [...] documented as of this encounter Care Teams Electron Microscopist Relationship Specialty Start Date End Date Marisel Ferrer M.D. PCP - General Family Medicine 07/11/18 03/24/20 [address], [place] [address] documented as of this encounter
--- OUTSIDE RECORDS SUMMARY | 2021-12-09 13:21 | XMS_ITS | Encounter Summary ---
:1985 Author Organization [facility] Address [address] [place] [address] Care Team Providers Name Role Phone Jana Granda M.D. Primary Care Provider Reason for Visit Reason Comments PPD Placement To be read at [facility] Encounter Details Date Type Department Care Team Description 08/23/2020 Clinical Support [facility] Test Skin Occupational Meghann Higgins, Tuberculosis Medicine in [place]N. (Primary Dx) [place], [place] [address] [place] [phone] Social History Tobacco Use Types Packs/Day Years [...] How often do you attend worship or baptism Never 01/31/2019 services? Do you [...] to pay for the very basics like Exploretrip hat hard 11/27/2019 food, housing, medical care, [...] Date Recorded Female 01/11/2018 2:20 PM CUSTOMER SERVICES MANAGER documented as of this encounter Plan of Treatment Not on filedocumented as of this encounter Visit Diagnoses Diagnosis Test Skin Tuberculosis - Primary documented in this encounter Additional Health Concerns Assessment Noted Time PHQ-9 Depression Total Score: 16 12/09/2019 10:25 AM C DT documented as of this encounter Care Teams Continuity Director Relationship Specialty Start Date End Date Jana Granda M.D. PCP - General 03/25/[address] [place] [address] ANNY Garcia [phone] documented as of this encounter
--- OUTSIDE RECORDS SUMMARY | 2021-12-09 13:21 | XMS_ITS | Encounter Summary ---
:1985 Author Organization [facility] Address [address] [place] [address] Care Team Providers Name Role Phone Marisel Ferrer M.D. Primary Care Provider [phone] Encounter Details Date Type Department Care Team Description 11/14/2019 Hospital Encounter Department of [place], Pregnanc y Examination Laboratory Medicine Juana Hamilton Test With Positive in [facility] [address] [place] [phone] [phone] Social History Tobacco Use Types Packs/Day Years [...] How often do you attend taoism or adventism Never 01/31/2019 services? Do you [...] to pay for the very basics like Edutor hat hard 11/27/2019 food, housing, medical care, [...] at Date Recorded Female 01/11/2018 2:20 PM SYSTEMS AUDITOR documented as of this encounter Medications at [...] Performed At Patho logist Time Signature [place]CG, [address] (H) <5 IU/L 11/14/2019 [place] Quantitative, 5:06 PM CDT , P Comment: Biotin has been identified by the madeline wheatley as a potential interfering substance. ??Higher concentr ations of biotin may be found in multivitamins, hair/nail supple ments, and workout supplements. ??If the result does not ma [facility] clinical observations, repeat testing after patient refrains fr om the use of supplements for at least 12 hours. Specimen Anatomical Collection Method Collection Time Receive d Time (Source) Location / / Volume Laterality Blood (Blood, 11/14/2019 2:20 PM 11/14/19 3:32 Venous) CDT PM CDT Joy Lee M.D. LAB BLOOD ADD-ON Performing Organization Address City/State/ZIP Code Phon e Number [facility]- [address] [place] [address] [place] [address] System in [place] [address] [facility] documented in this encounter Visit Diagnoses Diagnosis Examination Test With Positive Result (HCC) documented in this encounter Additional Health Concerns Assessment Noted Time PHQ-9 Depression Total Score: 15 09/28/2017 3:51 PM CD T documented as of this encounter Care Teams Psychopaedic Nurse Relationship Specialty Start Date End Date Marisel Ferrer M.D. PCP - General Family Medicine 07/11/18 03/24/200 [place] [address] documented as of this encounter
--- OUTSIDE RECORDS SUMMARY | 2021-12-09 13:21 | XMS_ITS | Encounter Summary ---
:1985 Author Organization [facility] Address [address] [place] [address] Care Team Providers Name Role Phone Marisel Ferrer M.D. Primary Care Provider [phone] Encounter Details Date Type Department Care Team Description 12/10/2019 Admin Visit Department of Family Medicine, [address] [address] [facility] [phone] Social History Tobacco Use Types Packs/Day Years [...] How often do you attend religion or yarsanism Never 01/31/2019 services? Do you belong to [...] at Date Recorded Female 01/11/2018 2:20 PM THERAPEUTIC DIETITIAN documented as of this encounter Plan of Treatment Not on filedocumented as of this encounter Visit Diagnoses Not on filedocumented in this encounter Additional Health Concerns Infection Onset Date Last Indicated Resolved Time COVID19 Pending 12/10/2019 12/10/2019 12/11/2019 3:42 PM CDT Assessment Noted Time PHQ-9 Depression Total Score: 16 12/09/2019 10:25 AM C DT documented as of this encounter Care Teams Extracorporeal Circulation Specialist Relationship Specialty Start Date End Date Marisel Ferrer M.D. PCP - General Family Medicine 07/11/18 03/24/[address] [phone] documented as of this encounter
--- OUTSIDE RECORDS SUMMARY | 2021-12-09 13:21 | XMS_ITS | Encounter Summary ---
:1985 Author Organization [facility] Address [address] [place] [address] Care Team Providers Name Role Phone Marisel Ferrer M.D. Primary Care Provider [phone] Reason for Referral Outpatient (Routine) - Closed Specialty Diagnoses / Procedures Referred By Contact Refer red To Contact Obstetrics and [facility] n Gynecology [place] [address] [place] [phone] Referral ID Status Reason Start Date Expiration Date Visits Requ ested Visits Authorized [id number] Closed 11/11/2019 11/10/2020 1 1 Encounter Details Date Type Department Care Team Description 11/11/2019 Clinical Communication Department of Aurelia Lee and [place] Gynecology in [address] [place] [address] [address] [facility] [address] [address] [place], [place] [phone] (Work) [phone] Social History Tobacco Use Types Packs/Day Years [...] at Date Recorded Female 01/11/2018 2:20 PM CRUSHING MACHINE OPERATOR documented as of this encounter [...] Dr. Lee. Please call her back at [phone] to advise. documented in this encounter Plan [...] documented as of this encounter Care Teams Flat Sorter Processor Relationship Specialty Start Date End Date Marisel Ferrer M.D. PCP - General Family Medicine 07/11/18 03/24/[address] [phone] documented as of this encounter
--- OUTSIDE RECORDS SUMMARY | 2021-12-09 13:21 | XMS_ITS | Encounter Summary ---
:1985 Author Organization [facility] Address [address] [place] [address] Care Team Providers Name Role Phone Jana Granda M.D. Primary Care Provider Reason for Visit Reason Comments COVGERMAN Nurse Line Encounter Details Date Type Department Care Team Description 11/12/2020 Clinical Communication Division of GUILLERMO Tenorio Nurse [facility] Internal Celeste Aguirre R.N., Medicine, [facility], in [address] [place] [phone] [place] [address] [place], [place] (Work) [phone] Social History Tobacco Use Types Packs/Day Years [...] How often do you attend catholic or yazdanism Never 01/31/2019 services? Do you [...] Date Recorded Female 01/11/2018 2:20 PM LEAD INSPECTOR documented as of this encounter Miscellaneous Notes Telephone Encounter - TenorioCeleste R.N., CCRN-K - 11/12/2020 12:25 PM CDT COVID-19 Nurse Line Screening ASSESSMENT Region Select appropriate region: : [place] Age Pathway Select approprite pathway: : Adult [...] swabbed for COVID-19 Only , sent to [place] located at [address] [place] [address] ([facility]). An appointment is required for testing, please call [phone] Sunday-Sunday 7am to 6pm and Sunday & [...] frequently with soap and water, use hand inspector watch assembly if soap and water aren't available. -Wear [...] care: Yes The following references were used: [facility] novel coronavirus (COVID- 19) resources Nursing judgement documented in this encounter Plan of Treatment Not on filedocumented as of this encounter Visit Diagnoses Not on filedocumented in this encounter Additional Health Concerns Assessment Noted Time PHQ-9 Depression Total Score: 16 12/09/2019 10:25 AM C DT documented as of this encounter Care Teams Clearance Rep Relationship Specialty Start Date End Date Jana Granda M.D. PCP - General 03/25/[address] [place] [phone] documented as of this encounter
--- OUTSIDE RECORDS SUMMARY | 2021-12-09 13:21 | XMS_ITS | Encounter Summary ---
:1985 Author Organization [facility] Address [address] [place] [address] Care Team Providers Name Role Phone Jana Granda M.D. Primary Care Provider Encounter Details Date Type Department Care Team Description 11/13/2020 Admin Visit Department of Family Medicine, [address] [address] [facility] [phone] Social History Tobacco Use Types Packs/Day Years [...] How often do you attend muslim or scientology Never 01/31/2019 services? 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/2018 2:20 PM CAP JEWEL PLATE ASSEMBLER documented as of this encounter Plan of Treatment Not on filedocumented as of this encounter Visit Diagnoses Not on filedocumented in this encounter Additional Health Concerns Infection Onset Date Last Indicated Resolved Time COVID19 Pending 11/12/2020 11/13/2020 11/14/2020 8:49 AM CDT Assessment Noted Time PHQ-9 Depression Total Score: 16 12/09/2019 10:25 AM C DT documented as of this encounter Care Teams Pecan Cleaner Relationship Specialty Start Date End Date Jana Granda M.D. PCP - General 03/25/[address] [place] [address] NANY Evans [address] documented as of this encounter
--- OUTSIDE RECORDS SUMMARY | 2021-12-09 13:21 | XMS_ITS | Encounter Summary ---
:[address] [facility] Address [address] [place] [address] Care Team Providers Name Role Phone Marisel Ferrer M.D. Primary Care Provider [phone] Encounter Details Date Type Department Care Team Description 01/10/2020 Admin Visit Department of Family Medicine, [address] [address] Formerly named [facility] [phone] Social History Tobacco Use Types Packs/Day Years [...] How often do you attend lutheran or buddhism Never 01/31/2019 services? 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/2018 2:20 PM VP COMPLIANCE documented as of this encounter Plan of Treatment Not on filedocumented as of this encounter Visit Diagnoses Not on filedocumented in this encounter Additional Health Concerns Infection Onset Date Last Indicated Resolved Time COVID19 Pending 01/10/2020 01/10/2020 01/11/2020 4:27 PM VP COMPLIANCE Assessment Noted Time PHQ-9 Depression Total Score: 16 12/09/2019 10:25 AM C DT documented as of this encounter Care Teams Jewelry Department Supervisor Relationship Specialty Start Date End Date Marisel Ferrer M.D. PCP - General Family Medicine 07/11/18 03/24/[address] [address] documented as of this encounter
--- OUTSIDE RECORDS SUMMARY | 2021-12-09 13:21 | XMS_ITS | Encounter Summary ---
:1985 Author Organization [facility] Address [address] [place] [address] Care Team Providers Name Role Phone Marisel Ferrer M.D. Primary Care Provider [phone] Encounter Details Date Type Department Care Team Description 11/11/2019 Orders Only Department of Madelineiadebbie, Exam ination Obstetrics and Olu Hamilton Test With Positive Gynecology in [address] Result (Primary Dx) [place], [place] [address] [facility] [address] [address] [place], [place] [phone] [address] (Work) [phone] Social History Tobacco Use Types Packs/Day Years [...] How often do you attend quaker or jew Never 01/31/2019 services? Do you [...] to pay for the very basics like [employer] hat hard 11/27/2019 food, housing, medical care, [...] at Date Recorded Female 01/11/2018 2:20 PM INSIDE CONTRACTOR SALES documented as of this encounter Plan of Treatment Not on filedocumented as of this encounter Results (ABNORMAL) hCG (Human Chorionic Gonadotropin), Quantitative, (11/14/2019 2:20 PM CDT) Analysis Performed At Patho logist [place], [address] (H) <5 IU/L 11/14/2019 OWAT Quantitative, 5:06 [...] Organization Address City/State/ZIP Code Phon e Number [facility]- [address] [place] [address] [place] [address] System in [place] [address] (ABNORMAL) hCG (Human [...] Organization Address City/State/ZIP Code Phon e Number [facility]- [address] [place] [address] [place] [address] System in [place] [address] documented in this encounter Visit Diagnoses Diagnosis Examination Test With Positive Result (HCC) - Primary documented in this encounter Additional Health Concerns Assessment Noted Time PHQ-9 Depression Total Score: 15 09/28/2017 3:51 PM CD T documented as of this encounter Care Teams Gang Plank Workman Relationship Specialty Start Date End Date Marisel Ferrer M.D. PCP - General Family Medicine 07/11/18 03/24/202199 [place] [address] documented as of this encounter
--- OUTSIDE RECORDS SUMMARY | 2021-12-09 13:21 | XMS_ITS | Encounter Summary ---
:1985 Author Organization [facility] Address [address] [place] [address] Care Team Providers Name Role Phone Marisel Ferrer M.D. Primary Care Provider [phone] Reason for Visit Reason Onset Date Comments Outpatient COVID-19 Testing 01/10/2020 Encounter Details Date Type Department Care Team Description 01/10/2020 External Outreach Department of Corbin Mason Infect ion [facility] Internal Medicine in J, D.O. Respiratory (Primary [place], [place] [address] Dx) [address] [place] [address] Social History Tobacco Use Types Packs/Day [...] How often do you attend mormon or bahai Never 01/31/2019 services? Do you [...] to pay for the very basics like [employer] hat hard 11/27/2019 food, housing, medical care, [...] at Date Recorded Female 01/11/2018 2:20 PM ENTRY LEVEL JAVA DEVELOPER documented as of this encounter Progress Notes Maria R Sorenson R.N. - 01/10/2020 11:59 AM CST Encounter created for the drive-through COVID-19 testing. Y LEVEL JAVA DEVELOPER documented in this encounter Plan of Treatment Not on filedocumented as of this encounter Procedures Procedure Name Priority Date/Time Associated Diagnosis Comme nts SARS CORONAVIRUS-2 Routine 01/10/2020 1:08 PM Infection Upper Results for this RNA, V ENTRY LEVEL JAVA DEVELOPER Respiratory procedure are i n the results section. documented in this encounter Results SARS Coronavirus-2 RNA, V Symptomatic (01/10/2020 1:08 PM ENTRY LEVEL JAVA DEVELOPER) [facility] gist Method Time Signature SARS-CoV-2 Swab, 01/11/2020 MKTO Specimen Nasopharynx 4:26 PM ENTRY LEVEL JAVA DEVELOPER Source SARS CoV-2 Undetected Undetected 01/11/2020 MKTO RNA, TMA 4:26 PM ENTRY LEVEL JAVA DEVELOPER Comment: SARS-CoV-2 RNA absent. This result does not rule out COVID-19 in the patient, as the sensitivity of the test depends o n the timing of the specimen collection and the quality of the specim en. Result should be correlated with patient's history and clinical presentat ion. ----ADDITIONAL INFORMATION---- This test is performed using the Aptima SARS-CoV-2 assay ([employer] which has received Emergency Use Authori zation (EUA) by the U.S. Food and Drug Administration. Fact sheets for this Emergency Use Autho rization (EUA) assay can be found at the following links: For Healthcare Providers: https://www.fd a.gov/media/713158/download For Patients: https://www.fda.gov/media/ 090267/download Specimen Anatomical Collection Method Collection Time Receive d Time (Source) Location / / Volume Laterality Varies 01/10/2020 1:08 PM 0 8:37 (Nasopharynx) ENTRY LEVEL JAVA DEVELOPER AM ENTRY LEVEL JAVA DEVELOPER Corbin Mason D.O. LAB MICROBIOLOGY - GENERAL O RDERABLES Performing Organization Address City/State/ZIP Code Phon e Number [facility]- [address] [place] [address] [place] [address] documented in this encounter Visit Diagnoses Diagnosis Infection Upper Respiratory - Primary documented in this encounter Additional Health Concerns Infection Onset Date Last Indicated Resolved Time COVID19 Pending 01/10/2020 01/10/2020 01/11/2020 4:27 PM ENTRY LEVEL JAVA DEVELOPER Assessment Noted Time PHQ-9 Depression Total Score: 16 12/09/2019 10:25 AM C DT documented as of this encounter Care Teams Executive Sous Chef Relationship Specialty Start Date End Date Marisel Ferrer M.D. PCP - General Family Medicine 07/11/18 03/24/[address] [id number] documented as of this encounter
--- OUTSIDE RECORDS SUMMARY | 2021-12-09 13:21 | XMS_ITS | Encounter Summary ---
:1985 Author Organization [facility] Address [address] [place] [address] Care Team Providers Name Role Phone Marisel Ferrer M.D. Primary Care Provider [phone] Reason for Visit Appointment Request (Routine) - Closed Specialty Diagnoses / Procedures Referred By Contact Refer red To Contact Obstetrics and Gynecology Referral ID Status Reason Start Date Expiration Date Visits Requ ested Visits Authorized [id number] Closed 11/24/2019 11/23/2020 1 1 Encounter Details Date Type Department Care Team Description 11/27/2019 Office Visit Department of Gurmeet Casiano Other Normal First Trimester (Primary Dx); Obstetrics and Olu Santiago Vaginitis Vulvovaginitis; Gynecology in [address] Threatened [place], [place] 200 [facility] [address] [place], [place] [phone] [address] (Work) [phone] Social History Tobacco Use Types Packs/Day Years [...] 11/27/2019 relatives? How often do you attend confucianism or sabianism Never 01/31/2019 services? Do you belong to any clubs or organizations such as No 01/31/2019 confucianism groups, unions, fraternal or athletic groups, or [...] Date Recorded Female 01/11/2018 2:20 PM BACK TENDER PULP DRIER documented as of this encounter Last Filed [...] Body Mass Index 19.78 02/14/2019 10:39 AM BACK TENDER PULP DRIER documented in this encounter Progress Notes Gurmeet [...] documented as of this encounter Care Teams Filter Tank Tender Relationship Specialty Start Date End Date Marisel Ferrer M.D. PCP - General Family Medicine 07/11/18 03/24/[address] [place] [address] documented as of this encounter
--- OUTSIDE RECORDS SUMMARY | 2021-12-09 13:21 | XMS_ITS | Encounter Summary ---
:1985 Author Organization [facility] Address [address] [place] [address] Care Team Providers Name Role Phone Jana Granda M.D. Primary Care Provider Reason for Referral Outpatient (Routine) - Closed Specialty Diagnoses / Procedures Referred By Contact Refer red To Contact Diagnoses Occupational Health Examination Ermelinda Garcia P.A[facility] [place] [facility] Procedures OCC Drug screening [address] [place] [address] Referral ID Status Reason Start Date Expiration Date Visits Requ ested Visits Authorized [id number] Closed 08/23/2020 08/23/2021 1 1 Reason for Visit Reason Comments Drug Screen Appointment Request (Routine) - Closed Specialty Diagnoses / Procedures Referred By Contact Refer red To Contact Occupational Medicine Referral ID Status Reason Start Date Expiration Date Visits Requ ested Visits Authorized [id number] Closed 08/20/2020 08/20/2021 1 1 Encounter Details Date Type Department Care Team Description 08/23/2020 Clinical Support Department of [facility], Occupation al Health Occupational David Lara (Pr imary Medicine in L.P.N. Dx) [place], [place] [address] [place] [phone] Social History Tobacco Use Types Packs/Day Years [...] How often do you attend congregation or episcopalian Never 01/31/2019 services? 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/2018 2:20 PM CREATIVE ASSISTANT documented as of this encounter Plan [...] documented as of this encounter Care Teams Copy Center Operator Relationship Specialty Start Date End Date Jana Granda M.D. PCP - General 03/25/[address] [place] [address] ANNY Garcia [address] documented as of this encounter
--- OUTSIDE RECORDS SUMMARY | 2021-12-09 13:21 | XMS_ITS | Encounter Summary ---
:1985 Author Organization [facility] Address [address] [place] [address] Care Team Providers Name Role Phone Marisel Ferrer M.D. Primary Care Provider [phone] Reason for Referral Specialty Diagnoses / Procedures Referred By Contact Refer red To Contact Joy Lee M.D. [facility] [address] [place] [address] Referral ID Status Reason Start Date Expiration Date Visits Requ ested Visits Authorized Scheduling Instructions Schedule for 1 hour - phone visit Reason for Visit Reason Comments Initial Visit confirmation of Outpatient (Routine) - Closed Specialty Diagnoses / Procedures Referred By Contact Refer july To Contact Obstetrics and QIANA Lee [facility] Regio n Gynecology Olu Hamilton [address] [place] [address] Referral ID Status Reason Start Date Expiration Date Visits Requ ested Visits Authorized [id number] Closed 11/11/2019 11/10/2020 1 1 Encounter Details Date Type Department Care Team Description 12/09/2019 Routine Department of Aravind Lee Other Normal First Trimester (Primary Dx); Obstetrics and Olu Hamilton Depression Major; Gynecology in [address] Anxiety Genera lized Disorder; [place], [place] St Pain Foot Left; [address] [place] Pain Low Back Chronic; [facility] [place] [address] Attention Deficit With Hyperactivity Dis order; [phone] Insomnia; Nausea And Vomiting; [phone] Threat ened ; (Fax) Unspecified Blo od [...] How often do you attend buddhist or presybeterian Never 01/31/2019 services? 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/2018 2:20 PM DECKHAND SPONGE BOAT documented as of this encounter Last Filed [...] was seeing a physical therapist prior to [facility] and her symptoms had improved. She has [...] anyone else. She participated in DBT through [facility] in [place], but that stopped with onset of COVID. She has a provider that she sees regularly through [facility]. She is scheduledto follow with her every other month, and she is able to adjust her meds. PHQ-9 score elevated at 16today. #3 Anxiety Generalized Disorder Overview: Wellbutrin 300 mg SR daily. She stopped prozac 20 mg daily. PHQ-9 score 16 and KEL 7 score 16 today.Plan close follow up of this with the provider she sees through [facility]. #4 Pain Foot Left Overview: Was [...] will discuss this with her provider at [facility]. #7 Insomnia Overview: She continues to [...] documented as of this encounter Care Teams Director Hematology Relationship Specialty Start Date End Date Marisel Ferrer M.D. PCP - General Family Medicine 07/11/18 03/24/[address] [place] [address] documented as of this encounter
--- OUTSIDE RECORDS SUMMARY | 2021-12-09 13:21 | XMS_ITS | Encounter Summary ---
:1985 Author Organization [facility] Address [address] [place] [address] Care Team Providers Name Role Phone Marisel Ferrer M.D. Primary Care Provider [phone] Reason for Visit Reason Onset Date Comments Outpatient COVID-19 Testing 12/09/2019 Encounter Details Date Type Department Care Team Description 12/09/2019 External Outreach Department of Corbin Mason Infect ion [facility] [address] Internal Medicine in J, D.O. Respiratory (Primary [place], [place] [address] Dx) [address] [place] [address] Social History Tobacco Use Types Packs/Day [...] How often do you attend presybeterian or temple Never 01/31/2019 services? Do you [...] to pay for the very basics like [email or web address] hat hard 11/27/2019 food, housing, medical care, [...] at Date Recorded Female 01/11/2018 2:20 PM SANITATION TECHNICIAN documented as of this encounter Progress [...] documented as of this encounter Care Teams Can Marker Relationship Specialty Start Date End Date Marisel Ferrer M.D. PCP - General Family Medicine 07/11/18 03/24/20 [address] [address] documented as of this encounter
--- OUTSIDE RECORDS SUMMARY | 2021-12-09 13:21 | XMS_ITS | Encounter Summary ---
:[address] [facility] Address [address] [place] [address] Care Team Providers Name Role Phone Marisel Ferrer M.D. Primary Care Provider [phone] Reason for Visit Appointment Request (Routine) - Closed Specialty Diagnoses / Procedures Referred By Contact Refer red To Contact Obstetrics and Gynecology Referral ID Status Reason Start Date Expiration Date Visits Requ ested Visits Authorized [id number] Closed 01/14/2020 01/13/2021 1 1 Encounter Details Date Type Department Care Team Description 01/14/2020 Office Visit Department of uGrmeet Casiano T hreatened Obstetrics and Olu Santiago (Primary Dx) Gynecology in [address] [place], [place] 200 [facility] [address] [place], [place] [phone] [address] (Work) [phone] Social History Tobacco Use Types Packs/Day Years [...] How often do you attend episcopalian or voodoo Never 01/31/2019 services? 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/2018 2:20 PM NEON LIGHT INSTALLER documented as of this encounter Progress Notes [...] emergency room immediate. - US OB Limited LIGHT INSTALLER documented in this encounter Plan of Treatment Not on filedocumented as of this encounter Procedures Procedure Name Priority Date/Time Associated Comments Diagnosis US OB LIMITED RAD - Routine 01/14/2020 11:03 Results f or this (most inpatients AM NEON LIGHT INSTALLER Threatened procedure a re in and all the results outpatients) section. documented in this encounter Results US OB Limited (01/14/2020 11:03 AM NEON LIGHT INSTALLER) P athologist Signature CRL 16.9 mm Anatomical Region Laterality Modality Ultrasound OB RST LOS, Ultrasound ARZ LOS, Ultrasound FLA LO S, N/A Ultrasound Ultrasound ARZ LOS Specimen (Source) Anatomical Location Collection Method / Collectio n Time Received Time / Laterality Volume Narrative 01/14/2020 11:03 AM NEON LIGHT INSTALLER For ultrasound ??details see imbedded report in [...] documented as of this encounter Care Teams Qa Intern Relationship Specialty Start Date End Date Marisel Ferrer M.D. PCP - General Family Medicine 07/11/18 03/24/[address] [place] [address] documented as of this encounter
--- OUTSIDE RECORDS SUMMARY | 2021-12-09 13:21 | XMS_ITS | Encounter Summary ---
:1985 Author Organization [facility] Address [address] [place] [address] Care Team Providers Name Role Phone Jana Granda M.D. Primary Care Provider Reason for Visit Reason Comments COVID Inquiry Encounter Details Date Type Department Care Team Description 11/12/2020 Clinical Communication Department of Jeniffer Cano COVID Inquiry [facility], Nathan Raines [facility], [address] [address] [place], [place] [phone] [address] (Work) [phone] Social History Tobacco Use Types Packs/Day Years [...] How often do you attend caodaism or presybeterian Never 01/31/2019 services? Do you [...] to pay for the very basics like [employer] hat hard 11/27/2019 food, housing, medical care, [...] Date Recorded Female 01/11/2018 2:20 PM MEDICAL UNDERWRITER documented as of this encounter Miscellaneous Notes Telephone Encounter - Janel Alberto - 11/12/2020 12:16 PM CDT What is the purpose of the call?: Symptomatic (Calling PCP Office) Calling [place] PCP Office What region is the patient calling from? : [place] Have you tested positive for COVID-19 in the last 20 days? : No In the past 14 days are any of the following symptoms new to you and not related to an existing health condition?: New cough, New sore throat, New nausea, New chills, New headache, New myalgias (muscleaches) Because of symptoms, transfer patient to: : [place] COVID Nurse Line (End Screening) Symptom Onset Date of symptom onset: 11/09/20 Testing Recommendation Endpoint Is testing recommended? : Transferred to nursing call line Plan: Endpoint recommendation: Transferred to Nursing/COVID Line/Care Team *Reminder if sending patient for testing in [facility] or [facility], route encounter to the correct testing pool. documented in this encounter Plan of Treatment Not on filedocumented as of this encounter Visit Diagnoses Not on filedocumented in this encounter Additional Health Concerns Assessment Noted Time PHQ-9 Depression Total Score: 16 12/09/2019 10:25 AM C DT documented as of this encounter Care Teams Decorative Engraver Apprentice Relationship Specialty Start Date End Date Jana Granda M.D. PCP - General 03/25/[address] [place] [address] AN[place] Garcia [phone] documented as of this encounter
--- OUTSIDE RECORDS SUMMARY | 2021-12-09 13:21 | XMS_ITS | Encounter Summary ---
:1985 Author Organization [facility] Address [address] [place] [address] Care Team Providers Name Role Phone Marisel Ferrer M.D. Primary Care Provider [phone] Reason for Visit Reason Onset Date Comments Outpatient COVID-19 Testing 12/10/2019 Encounter Details Date Type Department Care Team Description 12/10/2019 External Outreach Department of Corbin Mason Infect ion [facility] Internal Medicine in J, D.O. Respiratory (Primary [place], [place] [address] Dx) [address] [place] [address] Social History Tobacco Use Types Packs/Day [...] How often do you attend hinduism or yarsanism Never 01/31/2019 services? Do you [...] to pay for the very basics like [employer] hat hard 11/27/2019 food, housing, medical care, [...] at Date Recorded Female 01/11/2018 2:20 PM SCHEDULING SPECIALIST documented as of this encounter Progress Notes [...] RNA, V Symptomatic (12/10/2019 11:41 AM CDT) [facility] Method Time Signature SARS-CoV-2 Swab, 12/11/2019 MKTO [...] is performed using the Aptima SARS-CoV-2 assay ([employer] which has received Emergency Use Authori zation (EUA) by the U.S. Food and Drug Administration. Fact sheets for this Emergency Use Autho rization (EUA) assay can be found at the following links: For Healthcare Providers: https://www.fd a.gov/media/963547/download For Patients: https://www.fda.gov/media/ 108208/download Specimen Anatomical Collection Method Collection Time Receive d Time (Source) Location / / Volume Laterality Varies 12/10/2019 11:41 12/10/2019 7:35 (Nasopharynx) AM CDT PM CDT Corbin Mason D.O. LAB MICROBIOLOGY - GENERAL O RDERABLES Performing Organization Address City/State/ZIP Code Phon e Number [facility]- [address] [place] [address] [facility] [place] [address] System [address] documented in this encounter Visit Diagnoses Diagnosis Infection Upper Respiratory - Primary documented in this encounter Additional Health Concerns Infection Onset Date Last Indicated Resolved Time COVID19 Pending 12/09/2019 12/09/2019 12/10/2019 10:54 AM CDT COVID19 Pending 12/10/2019 12/10/2019 12/11/2019 3:42 PM CDT Assessment Noted Time PHQ-9 Depression Total Score: 16 12/09/2019 10:25 AM C DT documented as of this encounter Care Teams Payroll Director Relationship Specialty Start Date End Date Marisel Ferrer M.D. PCP - General Family Medicine 07/11/18 03/24/[address] [address] documented as of this encounter
--- OUTSIDE RECORDS SUMMARY | 2021-12-09 13:21 | XMS_ITS | Encounter Summary ---
:1985 Author Organization [facility] Address [address] [place] [address] Care Team Providers Name Role Phone Marisel Ferrer M.D. Primary Care Provider [phone] Encounter Details Date Type Department Care Team Description 11/14/2019 Clinical Communication Department of [facility] Obstetrics and [place] Gynecology in [address] [address] [place] [address] Social History Tobacco Use Types Packs/Day [...] How often do you attend mormon or restorationism Never 01/31/2019 services? Do you [...] to pay for the very basics like [employer] hat hard 11/27/2019 food, housing, medical care, [...] at Date Recorded Female 01/11/2018 2:20 PM GEOGRAPHIC INFORMATION SYSTEM ANALYST documented as of this encounter Miscellaneous Notes [...] no Route reply to: Scheduling Contact Number: [phone] documented in this encounter Plan of Treatment Not on filedocumented as of this encounter Visit Diagnoses Not on filedocumented in this encounter Additional Health Concerns Assessment Noted Time PHQ-9 Depression Total Score: 15 09/28/2017 3:51 PM CD T documented as of this encounter Care Teams Retail Event Assistant Relationship Specialty Start Date End Date aMrisel Ferrer M.D. PCP - General Family Medicine 07/11/18 03/24/[address] [address] documented as of this encounter
--- OUTSIDE RECORDS SUMMARY | 2021-12-09 13:21 | XMS_ITS | Encounter Summary ---
:1985 Author Organization [facility] Address [address] [place] [address] Care Team Providers Name Role Phone Jana Granda M.D. Primary Care Provider Encounter Details Date Type Department Care Team Description 11/13/2020 Hospital Encounter Department of Laboratory [place], Medicine, [facility], in [place], [address] [place], [place] 1025 [facility] [address] [place] [address] [phone] Social History Tobacco Use Types Packs/Day Years [...] How often do you attend bahai or muslim Never 01/31/2019 services? 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/2018 2:20 PM CUSHION COVER INSPECTOR documented as of this encounter Medications at [...] documented as of this encounter Care Teams Ceramic Products Sales Engineer Relationship Specialty Start Date End Date Jana Granda M.D. PCP - General 03/25/[address] [place] [address] AN[place] Garcia [address] documented as of this encounter
--- OUTSIDE RECORDS SUMMARY | 2021-12-09 13:21 | XMS_ITS | Encounter Summary ---
:1985 Author Organization [facility] Address [address] [place] [address] Care Team Providers Name Role Phone Jana Granda M.D. Primary Care Provider Encounter Details Date Type Department Care Team Description 04/26/2020 Patient Self-Triage CONNECTED CARE Symptom Aircraft Landing Gear Inspector, Provider Social History Tobacco Use Types Packs/Day [...] How often do you attend alevism or catholic Never 01/31/2019 services? Do you [...] Date Recorded Female 01/11/2018 2:20 PM MOLD MECHANIC documented as of this encounter Plan of Treatment Not on filedocumented as of this encounter Visit Diagnoses Not on filedocumented in this encounter Additional Health Concerns Assessment Noted Time PHQ-9 Depression Total Score: 16 12/09/2019 10:25 AM C DT documented as of this encounter Care Teams Fac Engineer Relationship Specialty Start Date End Date Jana Granda M.D. PCP - General 03/25/[address] [place], [place] [address] [address] documented as of this encounter
--- OUTSIDE RECORDS SUMMARY | 2021-12-09 13:22 | XMS_ITS | Encounter Summary ---
:1985 Author Organization [facility] Address [address] [place] [address] Care Team Providers Name Role Phone Marisel Ferrer M.D. Primary Care Provider [phone] Reason for Visit Reason Comments Med Refill Encounter Details Date Type Department Care Team Description 03/06/2019 Refill Department of Dermatology in Elsi Resendiz APRN, Med Refill [place], [place] C.N.P., M.S.N. [address] [place] [address] [place] [address] (Wo rk) Social History Tobacco Use Types [...] How often do you attend worship or yarsani Never 01/31/2019 services? Do you [...] to pay for the very basics like [employer] hat hard 11/27/2019 food, housing, medical care, [...] at Date Recorded Female 01/11/2018 2:20 PM ALLOCATION ANALYST documented as of this encounter Miscellaneous Notes Telephone Encounter - Sol Barber R.N. - 03/06/2019 2:16 PM CST Please review CATION ANALYST Telephone Encounter - Laverne Malave - 03/06/2019 9:04 AM CST Med list states patient is using differently. CATION ANALYST documented in this encounter Plan of Treatment Not on filedocumented as of this encounter Visit Diagnoses Not on filedocumented in this encounter Additional Health Concerns Assessment Noted Time PHQ-9 Depression Total Score: 15 09/28/2017 3:51 PM CD T documented as of this encounter Care Teams Field Crop Ii Farmworker Relationship Specialty Start Date End Date Marisel Ferrer M.D. PCP - General Family Medicine 07/11/18 03/24/[address] [address] documented as of this encounter
--- OUTSIDE RECORDS SUMMARY | 2021-12-09 13:22 | XMS_ITS | Encounter Summary ---
:1985 Author Organization [facility] Address [address] [place] [address] Care Team Providers Name Role Phone Marisel Ferrer M.D. Primary Care Provider Reason for Visit Reason Comments ADHD Outpatient (Routine) - Closed Specialty Diagnoses / Procedures Referred By Contact Refer red To Contact Family Medicine Diagnoses Attention Deficit With Hyperactivity Disorder Joy Lee [facility] ANNY Vo M.D. [address] [address] Referral ID Status Reason Start Date Expiration Date Visits Requ ested Visits Authorized [id number] Closed 01/31/2019 01/31/2020 1 1 Encounter Details Date Type Department Care Team Description 02/14/2019 Office Visit Department of [facility] Anusha pierce Deficit With Medicine, Marisel Moreau, Hyperac tivity Disorder Clinic, in [place] [address] [place] [address] [place] [phone] Social History Tobacco Use Types Packs/Day Years [...] How often do you attend sikhism or gnosticism Never 01/31/2019 services? 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/2018 2:20 PM ALUMINUM CAN COLLECTOR documented as of this encounter Last Filed Vital Signs Vital Sign Reading Time Taken Comments Blood Pressure 110/64 02/14/2019 10:39 AM ALUMINUM CAN COLLECTOR Pulse 60 02/14/2019 10:39 AM ALUMINUM CAN COLLECTOR Temperature 36.9 ??C (98.4 ??F) 02/14/2019 10:39 AM ALUMINUM CAN COLLECTOR Respiratory Rate 18 02/14/2019 10:39 AM ALUMINUM CAN COLLECTOR Oxygen Saturation - - Inhaled Oxygen Concentration - - Weight 52.2 kg (115 lb 1.3 02/14/2019 10:39 AM oz) ALUMINUM CAN COLLECTOR Height 162 cm (5' 3.78) 02/14/2019 10:39 AM without sh oes ALUMINUM CAN COLLECTOR Body Mass Index 19.89 02/14/2019 10:39 AM ALUMINUM CAN COLLECTOR documented in this encounter Progress Notes Marisel [...] History: Diagnosis Date ??? Alcoholism Personal History ([facility]) [id number] ??? Borderline Personality Disorder ([facility]) 12/05/2011 ??? 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 The creation of this record is based on the scribe's personal observations and the provider's statements to them. This documenthas been checked and approved by the attending provider. INUM CAN COLLECTOR documented in this encounter Plan of Treatment Not on filedocumented as of this encounter Visit Diagnoses Diagnosis Attention Deficit With Hyperactivity Dis order documented in this encounter Additional Health Concerns Assessment Noted Time PHQ-9 Depression Total Score: 15 09/28/2017 3:51 PM CD T documented as of this encounter Care Teams Buffing Machine Tender Relationship Specialty Start Date End Date Marisel Ferrer M.D. PCP - General Family Medicine 07/11/18 03/24/[address] [address] documented as of this encounter
--- OUTSIDE RECORDS SUMMARY | 2021-12-09 13:22 | XMS_ITS | Encounter Summary ---
:1985 Author Organization [facility] Address [address] [place] [address] Care Team Providers Name Role Phone Marisel Ferrer M.D. Primary Care Provider [phone] Reason for Visit Reason Comments Other Would [...] Expiration Date Visits Requ ested Visits Authorized [id number] Closed 07/25/2018 07/25/2019 1 1 Encounter Details Date Type Department Care Team Description 07/26/2018 Office Visit Department of Family Huang lambert For Venereal Medicine, Marisel Mcgregor, Disease (Primary Dx) Clinic, in [place] [address] [place] [address] [phone] Social History Tobacco Use Types Packs/Day Years [...] often do you attend oriental orthodox or sabianism Never 01/31/2019 services? Do you [...] Date Recorded Female 01/11/2018 2:20 PM DATA MANAGEMENT MANAGER documented as of this encounter Last [...] Body Mass Index 20.23 01/07/2018 6:00 AM DATA MANAGEMENT MANAGER documented in this encounter Progress Notes Marisel [...] as of this encounter Care Teams Detective Narcotics And Vice Relationship Specialty Start Date End Date Marisel Ferrer M.D. PCP - General Family Medicine 07/11/18 03/24/[address] [place] [address] documented as of this encounter
--- OUTSIDE RECORDS SUMMARY | 2021-12-09 13:22 | XMS_ITS | Encounter Summary ---
:1985 Author Organization [facility] Address [address] [place] [address] Care Team Providers Name Role Phone Marisel Ferrer M.D. Primary Care Provider [phone] Encounter Details Date Type Department Care Team Description 03/21/2019 Hospital Encounter Department of [place], Missed (HCC) Laboratory Medicine [place] in [address] [address] [phone] Social History Tobacco Use Types Packs/Day Years [...] How often do you attend caodaism or muslim Never 01/31/2019 services? 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/2018 2:20 PM RIB MATCHER AND FITTER documented as of this encounter Medications at [...] Resul ts for this GONADOTROPIN (HCG), AM RIB MATCHER AND FITTER ([facility]) procedur e are in NAS, the results section. documented in this encounter Results (ABNORMAL) hCG (Human Chorionic Gonadotropin), Quantitative, (03/21/2019 11:47 AM RIB MATCHER AND FITTER) P athologist Signature HCG, 647 (H) <5 IU/L 03/21/2019 OW[place] Quantitative, 1:42 PM RIB MATCHER AND FITTER , P Comment: Biotin has been identified [...] (Blood, 03/21/2019 11:47 03/21/2019 1:04 Venous) AM RIB MATCHER AND FITTER PM RIB MATCHER AND FITTER Joy Lee M.D. LAB BLOOD ADD-ON Performing Organization Address City/State/ZIP Code Phon e Number [facility]- [address] [place] [address] [place] [address] System in [place] [address] documented in this encounter Visit Diagnoses Diagnosis Missed (HCC) documented in this encounter Additional Health Concerns Assessment Noted Time PHQ-9 Depression Total Score: 15 09/28/2017 3:51 PM CD T documented as of this encounter Care Teams Floor Scrubber Relationship Specialty Start Date End Date Marisel Ferrer M.D. PCP - General Family Medicine 07/11/18 03/24/200 [place] [address] documented as of this encounter
--- OUTSIDE RECORDS SUMMARY | 2021-12-09 13:22 | XMS_ITS | Encounter Summary ---
:1985 Author Organization [facility] Address [address] [place] [address] Care Team Providers Name Role Phone Marisel Ferrer M.D. Primary Care Provider [phone] Encounter Details Date Type Department Care Team Description 01/31/2019 Hospital Encounter Department of Alona Lee Laboratory Medicine [place] Other Normal in [place], [address] [place], [place] [address] [phone] Social History Tobacco Use Types Packs/Day Years [...] How often do you attend protestant or restorationism Never 01/31/2019 services? Do you [...] to pay for the very basics like [employer] hat hard 11/27/2019 food, housing, medical care, [...] at Date Recorded Female 01/11/2018 2:20 PM AUSTRALIAN RULES FOOTBALLER documented as of this encounter Medications at [...] louise Results for this AEROBIC + SUSC, AUSTRALIAN RULES FOOTBALLER Other Normal procedure ar e in URINE First the results Trimester section. documented in this encounter Results (ABNORMAL) Bacterial Culture, Aerobic + Susc, Urine (01/31/2019 10:15 AM AUSTRALIAN RULES FOOTBALLER) Analysis Performed At Patho logist Time Signature Urine Culture Mixed 02/01/2019 MKTO sumeet. (A) 4:15 PM AUSTRALIAN RULES FOOTBALLER Specimen Anatomical Collection Method Collection Time Receive d Time (Source) Location / / Volume Laterality Urine (Urine, 01/31/2019 10:15 01/31/2019 7:01 Midstream) AM AUSTRALIAN RULES FOOTBALLER PM AUSTRALIAN RULES FOOTBALLER Comment: Specimen Source Site: Urine Joy Lee M.D. LAB MICROBIOLOGY - GENERAL O RDERABLES Performing Organization Address City/State/ZIP Code Phon e Number [facility]- [address] [place] [id number] [place] [address] [place] [address] System in [address] documented in this encounter Visit Diagnoses Diagnosis Examination Other Normal Pregna ncy First Trimester (HCC) documented in this encounter Additional Health Concerns Assessment Noted Time PHQ-9 Depression Total Score: 15 09/28/2017 3:51 PM CD T documented as of this encounter Care Teams Community Affairs Manager Relationship Specialty Start Date End Date Marisel Ferrer M.D. PCP - General Family Medicine 07/11/18 03/24/20 [address] [place] [address] documented as of this encounter
--- OUTSIDE RECORDS SUMMARY | 2021-12-09 13:22 | XMS_ITS | Encounter Summary ---
:1985 Author Organization [facility] Address [address] [place] [address] Care Team Providers Name Role Phone Marisel Ferrer M.D. Primary Care Provider [phone] Reason for Referral Outpatient (Routine) - Closed Specialty Diagnoses / Procedures Referred By Contact Refer red To Contact Obstetrics and Diagnoses Missed (HCC) QIANA Lee [facility] Gynecology [place] [address] [place] [address] Referral ID Status Reason Start Date Expiration Date Visits Requ ested Visits Authorized [id number] Closed 02/25/2019 02/25/2020 1 1 Scheduling Instructions Schedule 15 minute visit AND SCIENCES DEAN Reason for Visit Reason Comments Routine Visit 10+4 weeks Patient Education OB ED Miscarriage Missed AB Encounter Details Date Type Department Care Team Description 02/25/2019 Routine Department of Aravind Lee Other Normal First Trimester (Primary Dx); Obstetrics and [place] Missed (HCC); Gynecology in [address] Unspecified Blood Type Rhesus Negative; [place], [place] Depression Major; [address] [address] Anxiety Generalized Disorder [place], [place] [phone] [address] (Work) [phone] Social History Tobacco Use Types Packs/Day Years [...] How often do you attend hindu or druze Never 01/31/2019 services? 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/2018 2:20 PM ARTS AND SCIENCES DEAN documented as of this encounter Last Filed Vital Signs Vital Sign Reading Time Taken Comments Blood Pressure 126/70 02/25/2019 1:29 PM ARTS AND SCIENCES DEAN Pulse - - Temperature - - Respiratory Rate - - Oxygen Saturation - - Inhaled Oxygen Concentration - - Weight 53.9 kg (118 lb 15 oz) 02/25/2019 1:29 PM ARTS AND SCIENCES DEAN Height - - Body Mass Index 20.56 02/14/2019 10:39 AM ARTS AND SCIENCES DEAN documented in this encounter Progress Joy Cosme [...] recently started DBT through [facility] in [place], and she believes that will help with her mood symptoms. She has had some situational things that she believes are contributing to mood symptoms.She has been in contact with her psychiatrist at [facility] who recommended against restarting the prozac. [...] scheduled on February 24. Followup: 1 week. AND SCIENCES DEAN documented in this encounter Miscellaneous Notes Assessment & Plan Note - Joy Lee M.D. - 02/25/2019 2:28 PM ARTS AND SCIENCES DEAN Associated Problem(s): Depression Major Considering this missed , we will follow her mood symptoms closely as she is at risk of exacerbation. AND SCIENCES DEAN documented in this encounter Plan of Treatment Scheduled Referrals Name Type Priority Associated Order Schedule Diagnoses Obstetrics and Outpatient Referral Routine Missed Exp ected: Gynecology office ([facility]) 03/04/2019 visit (clinic) (Approximate) , Expires: 02/25/2022 documented as of this encounter Procedures Procedure Name Priority Date/Time Associated Comments Diagnosis US OB LIMITED RAD - Routine 02/25/2019 2:31 Missed Results for this (most inpatients PM ARTS AND SCIENCES DEAN ([facility]) procedure a re in and all the results outpatients) section. documented in this encounter Results US OB Limited (02/25/2019 2:31 PM ARTS AND SCIENCES DEAN) P athologist Signature CRL 32.3 mm Anatomical Region Laterality Modality Ultrasound OB RST LOS, Ultrasound ARZ LOS, Ultrasound FLA LO S, N/A Ultrasound Ultrasound ARZ LOS Specimen (Source) Anatomical Location Collection Method / Collectio n Time Received Time / Laterality Volume Narrative 02/25/2019 2:31 PM ARTS AND SCIENCES DEAN Nonviable intrauterine noted with crown-rump length of [...] documented as of this encounter Care Teams Fisheries Management Biologist Relationship Specialty Start Date End Date Marisel Ferrer M.D. PCP - General Family Medicine 07/11/18 [address] [phone] documented as of this encounter
--- OUTSIDE RECORDS SUMMARY | 2021-12-09 13:22 | XMS_ITS | Encounter Summary ---
:1985 Author Organization [facility] Address [address] [place] [address] Care Team Providers Name Role Phone Marisel Ferrer M.D. Primary Care Provider [phone] Reason for Visit Reason Onset Date Comments NOB 01/29/2019 Encounter Details Date Type Department Care Team Description 01/29/2019 Clinical Communication Department of NICOLE Lee Obstetrics and [place] Gynecology in [address] [place], [place] 200 [facility] [place] [place] [address] [place], [place] [phone] [address] (Work) [phone] Social History Tobacco Use Types Packs/Day Years [...] often do you attend jehovah's witness or confucianism Never 01/31/2019 services? Do you [...] to pay for the very basics like [employer] hat hard 11/27/2019 food, housing, medical care, [...] Date Recorded Female 01/11/2018 2:20 PM UTILITY ARBORIST documented as of this encounter Miscellaneous Notes [...] back Name of Medication (if relevant): na ITY ARBORIST documented in this encounter Plan of Treatment Not on filedocumented as of this encounter Visit Diagnoses Not on filedocumented in this encounter Additional Health Concerns Assessment Noted Time PHQ-9 Depression Total Score: 15 09/28/2017 3:51 PM CD T documented as of this encounter Care Teams Varnish Melter Helper Relationship Specialty Start Date End Date Marisel Ferrer M.D. PCP - General Family Medicine 07/11/18 03/24/[address] [phone] documented as of this encounter
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
--- OUTSIDE RECORDS SUMMARY | 2021-12-09 13:22 | XMS_ITS | Encounter Summary ---
:1985 Author Organization [facility] Address [address] [place] [address] Care Team Providers Name Role Phone Marisel Ferrer M.D. Primary Care Provider [phone] Reason for Visit Reason Onset Date Comments PA 03/06/2019 Encounter Details Date Type Department Care Team Description 03/06/2019 Clinical Communication Department of Marylou Urena PA Obstetrics and R.N. Gynecology in [address] [place], [place] [address] [facility] [place] [place] [address] [place], [place] [phone] (Work) [phone] Social History Tobacco Use Types Packs/Day Years [...] How often do you attend lutheran or christian Never 01/31/2019 services? 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/2018 2:20 PM FLAT LOCKER documented as of this encounter Miscellaneous Notes Telephone Encounter - Sofia Parada - 03/06/2019 3:17 PM CST PA for Suction dilation and curettage with Jesus at [facility] on 03/20/19 has been sent. LOCKER Telephone Encounter - Marylou Urena R.N. - 03/06/2019 1:53 PM CST [facility] Surgery Clinic Checklist Patient Contact Number: [phone] Surgeon: Dr. Lee Surgical Service: (_) Orthopedics (_) General surgery (_) Ophthalmology (_) Podiatry (_) ENT (_) Urology (X) OB / Gynecology (_) Other Date of Surgery: 03/20/2019 Place of Surgery: [facility] Procedure (as written on Consent): Suction dilation and curettage Right, Left, Bilateral, N/A: N/A Diagnosis (reason for surgery): Missed ICD-10: 13444 CPT:O02.1 Case Type: (_) Outpatient (_) AM Admit (_) Inpatient (X) One day surgery Pre-op MD: Dr. Lee Post-Op Appt:(time frame when to return): 2 weeks Surgery Brochure Given: (X) Yes (_) No (_) Mailed to Patient LOCKER documented in this encounter Plan of Treatment Not on filedocumented as of this encounter Visit Diagnoses Not on filedocumented in this encounter Additional Health Concerns Assessment Noted Time PHQ-9 Depression Total Score: 15 09/28/2017 3:51 PM CD T documented as of this encounter Care Teams Business Ethics Professor Relationship Specialty Start Date End Date Marisel Ferrer M.D. PCP - General Family Medicine 07/11/18 03/24/[address] [address] documented as of this encounter
--- OUTSIDE RECORDS SUMMARY | 2021-12-09 13:22 | XMS_ITS | Encounter Summary ---
:1985 Author Organization [facility] Address [address] [place] [address] Care Team Providers Name Role Phone Marisel Ferrer M.D. Primary Care Provider [phone] Reason for Visit Reason Comments Routine Visit 9 weeks Outpatient (Routine) - Closed Specialty Diagnoses / Procedures Referred By Contact Refer red To Contact Obstetrics and Diagnoses Examination Other Normal First Trimester (HCC) QIANA Lee [facility] Gynecology [place] [address] [place] [address] Referral ID Status Reason Start Date Expiration Date Visits Requ ested Visits Authorized [id number] Closed 01/31/2019 01/31/2020 1 1 Encounter Details Date Type Department Care Team Description 02/14/2019 Routine Department of Aravind Lee Other Normal First Trimester (Primary Dx); Obstetrics and [place] Depression Major; Gynecology in [address] Anxiety Genera lized Disorder; [place], [place] St Pain Foot Left; [address] [place], [place] Pain Low Back Chronic; [place] [address] Attention Deficit With Hyperactivity Dis order; [address] Insomnia; Nausea And Vomiting; [phone] Threat ened (Fax) Social History Tobacco Use [...] How often do you attend samaritan or sabianist Never 01/31/2019 services? 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/2018 2:20 PM CUPOLA TENDER documented as of this encounter Last Filed Vital Signs Vital Sign Reading Time Taken Comments Blood Pressure 118/66 02/14/2019 11:19 AM CUPOLA TENDER Pulse - - Temperature - - Respiratory Rate - - Oxygen Saturation - - Inhaled Oxygen Concentration - - Weight 52.2 kg (115 lb 1.3 oz) 02/14/2019 11:19 AM CUPOLA TENDER Height - - Body Mass Index 19.89 02/14/2019 10:39 AM CUPOLA TENDER documented in this encounter Progress Notes Joy [...] in discussed.. She recently started DBT through [facility] in [place], and she believes that will help with her mood symptoms. She has had some situational things that she believes are contributing to mood symptoms. She has been in contact with her psychiatrist at [facility] in [place] who recommended against restarting the prozac. She [...] in 1 month for New OB visit. LA TENDER documented in this encounter Miscellaneous Notes Assessment & Plan Note - Joy Lee M.D. - 02/14/2019 12:56 PM CUPOLA TENDER Associated Problem(s): Examination Other Normal First Trimester (HCC) (Deleted) New OB labs today. Plan OB education in 2 weeks. LA TENDER documented in this encounter Plan of Treatment Not on filedocumented as of this encounter Procedures Procedure Name Priority Date/Time Associated Comments Diagnosis US OB LIMITED RAD - Routine 02/14/2019 1:32 Examination Results fo r this (most inpatients PM CUPOLA TENDER Other procedure are in and all Normal the results outpatients) First Trimester section. documented in this encounter Results US OB Limited (02/14/2019 1:32 PM CUPOLA TENDER) P athologist Signature FHR 172 bpm CRL 19.5 mm Anatomical Region Laterality Modality Ultrasound OB RST LOS, Ultrasound ARZ LOS, Ultrasound FLA LO S, N/A Ultrasound Ultrasound ARZ LOS Specimen (Source) Anatomical Location Collection Method / Collectio n Time Received Time / Laterality Volume Narrative 02/14/2019 1:32 PM CUPOLA TENDER Single, living intrauterine with crown-rump length of [...] documented as of this encounter Care Teams Waxing Machine Operator Helper Relationship Specialty Start Date End Date Marisel Ferrer M.D. PCP - General Family Medicine 07/11/18 03/24/[address] [place] [address] documented as of this encounter
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
--- OUTSIDE RECORDS SUMMARY | 2021-12-09 13:22 | XMS_ITS | Encounter Summary ---
:1985 Author Organization [facility] Address [address] [place] [address] Care Team Providers Name Role Phone Marisel Ferrer M.D. Primary Care Provider [phone] Encounter Details Date Type Department Care Team Description 03/06/2019 Ancillary Procedure Department of Obstetrics Andrea aldana, and Gynecology in [place], [place] [address] [phone] Social History Tobacco Use Types Packs/Day Years [...] How often do you attend latter-day or judaism Never 01/31/2019 services? 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/2018 2:20 PM RISK DEVELOPER documented as of this encounter Plan of Treatment Not on filedocumented as of this encounter Procedures Procedure Name Priority Date/Time Associated Comments Diagnosis US PELVIS RAD - Routine 03/06/2019 3:08 Missed Results for this TRANSVAGINAL (most inpatients PM RISK DEVELOPER (HCC) procedure a re in and all the results outpatients) section. documented in this encounter Results US Pelvis Transvaginal (03/06/2019 3:08 PM RISK DEVELOPER) Anatomical Region Laterality Modality Pelvis, Ultrasound RST LOS, Ultrasound ARZ LOS, Ultrasound F LA N/A Ultrasound LOS Specimen (Source) Anatomical Location Collection Method / Collectio n Time Received Time / Laterality Volume Narrative 03/06/2019 3:08 PM RISK DEVELOPER Single, intrauterine with crown-rump length of 30.2 [...] as of this encounter Care Teams Distribution System Operator Relationship Specialty Start Date End Date Marisel Ferrer M.D. PCP - General Family Medicine 07/11/18 03/24/[address] [phone] documented as of this encounter
--- OUTSIDE RECORDS SUMMARY | 2021-12-09 13:22 | XMS_ITS | Encounter Summary ---
:1985 Author Organization [facility] Address [address] [place] [address] Care Team Providers Name Role Phone Marisel Ferrer M.D. Primary Care Provider [phone] Reason for Referral Outpatient (Routine) - Closed Specialty Diagnoses / Procedures Referred By Contact Refer red To Contact Obstetrics and Diagnoses Examination Other Normal First Trimester (HCC) QIANA Lee [facility] Gynecology [place] [address] [place] [address] Referral ID Status Reason Start Date Expiration Date Visits Requ ested Visits Authorized [id number] Closed 01/31/2019 01/31/2020 1 1 STOCK JUDGING COACH Specialty Diagnoses / Procedures Referred By Contact Adamaris mcdowell To Contact Joy Lee M.D. [facility] [place] [facility] [address] [place] [address] Referral ID Status Reason Start Date Expiration Date Visits Requ ested Visits Authorized Scheduling Instructions Schedule for 1 hour STOCK JUDGING COACH Outpatient (Routine) - Closed Specialty Diagnoses / Procedures Referred By Contact Adamaris mcdowell To Contact Family Medicine Diagnoses Attention Deficit With Hyperactivity Disorder Joy Lee [facility] [place] [facility] M.D. [address] [place] [address] Referral ID Status Reason Start Date Expiration Date Visits Requ ested Visits Authorized [id number] Closed 01/31/2019 01/31/2020 1 1 Scheduling Instructions Trudi STOCK JUDGING COACH Reason for Visit Reason Comments Initial Visit Bad cramping Appointment Request (Routine) - Closed Specialty Diagnoses / Procedures Referred By Contact Refer red To Contact Obstetrics and Gynecology Referral ID Status Reason Start Date Expiration Date Visits Requ ested Visits Authorized [id number] Closed 01/30/2019 01/30/2020 Encounter Details Date Type Department Care Team Description 01/31/2019 Initial Department of Obstetrics DARREL Lee: 7w0d and Gynecology in [place], [place] [address] [phone] (Wo rk) Social History Tobacco Use Types [...] How often do you attend moravian or moravian Never 01/31/2019 services? Do you [...] Date Recorded Female 01/11/2018 2:20 PM LIVESTOCK JUDGING COACH documented as of this encounter Last Filed Vital Signs Vital Sign Reading Time Taken Comments Blood Pressure 110/62 01/31/2019 8:43 AM LIVESTOCK JUDGING COACH Pulse - - Temperature - - Respiratory Rate - - Oxygen Saturation - - Inhaled Oxygen Concentration - - Weight 53.3 kg (117 lb 8.1 oz) 01/31/2019 8:43 AM LIVESTOCK JUDGING COACH Height - - Body Mass Index 20.49 01/29/2019 8:49 AM LIVESTOCK JUDGING COACH documented in this encounter Progress Notes Joy [...] today. She r ecently started DBT through [facility] in [place], and she believes that will help with [...] weeks with me for new OB visit. STOCK JUDGING COACH documented in this encounter Miscellaneous Notes Assessment & Plan Note - Joy Lee M.D. - 01/31/2019 5:36 PM LIVESTOCK JUDGING COACH Associated Problem(s): Examination Other Normal First Trimester (HCC) (Deleted) New OB labs today. Plan OB education in 1 month. STOCK JUDGING COACH documented in this encounter Plan of Treatment Scheduled Referrals Name Type Priority Associated Diagnoses Order S [facility] Family Medicine - Outpatient Referral Routine Attention [...] Results fo r this (most inpatients PM LIVESTOCK JUDGING COACH Other procedure are in and all Normal the results outpatients) First Trimester section. documented in this encounter Results US OB Limited (01/31/2019 5:42 PM LIVESTOCK JUDGING COACH) athologist Signature FHR 126 bpm CRL 7.1 mm Anatomical Region Laterality Modality Ultrasound OB RST LOS, Ultrasound ARZ LOS, Ultrasound FLA LO S, N/A Ultrasound Ultrasound ARZ LOS Specimen (Source) Anatomical Location Collection Method / Collectio n Time Received Time / Laterality Volume Narrative 01/31/2019 5:42 PM LIVESTOCK JUDGING COACH Single, living intrauterine with crown-rump length of 7.1 mm corresponding to 6+5 weeks gestational a ge. ??Cardiac activity is present 126 beats per minute. ??Gestational sac is fundal. ??The yolk sac is not visualized. ??Appropriate interval growt h since the last ultrasound. Joy Lee M.D. IMG OB US PROCEDURES 25-Hydroxyvitamin D2 and D3 (01/31/2019 10:19 AM LIVESTOCK JUDGING COACH) athologist Signature 25-Hydroxy D2 <4.0 ng/mL 02/06/2019 [facility]SC 1:50 AM LIVESTOCK JUDGING COACH 25-Hydroxy D3 32 ng/mL 02/06/2019 [facility]SC 1:50 AM LIVESTOCK JUDGING COACH 25-Hydroxy D 32 ng/mL 02/06/2019 [facility] Total 1:50 AM LIVESTOCK JUDGING COACH Comment: ----REFERENCE VALUE---- 25-HYDROXY D TOTAL (D2+D3) Optimum level s in the healthy population are 20-50, patients with bone disease may benefit from higher levels within this r hoa. ----ADDITIONAL INFORMATION---- This test was developed and its performa nce characteristics determined by [facility] in a manner consistent with CLIA requirements. This test has not been cleared or approved by the [place] d and Drug Administration. Specimen Anatomical Collection Method Collection Time Receive d Time (Source) Location / / Volume Laterality Blood (Blood, 01/31/2019 10:19 02/03/2019 7:56 Venous) AM LIVESTOCK JUDGING COACH AM LIVESTOCK JUDGING COACH Joy Lee M.D. LAB BLOOD ADD-ON Performing Organization Address City/State/ZIP Code Phon e Number [facility] [address] [place], [place] [address] [place] [address] CENTER [facility] [place] [address] Laboratory Medicine and Pathology [address] [place] Syphilis Total Ab w/ Reflex, Serum (01/31/2019 10:19 AM LIVESTOCK JUDGING COACH) Patholo gist Method Time Signature Syphilis Nonreactive Nonreactive 02/02/2019 [facility] Total Ab w/ 12:03 PM LIVESTOCK JUDGING COACH Reflex Comment: No serologic evidence of infection with T. pallidum (syphilis). ??Repeat testing may be cons idered in patients with suspected acute or primary syphilis in 2-4 weeks. For additional information on interpreta tion of the syphilis reverse algorithm and resul ts, see: [email or web address] df Specimen Anatomical Collection Method Collection Time Receive d Time (Source) Location / / Volume Laterality Blood (Blood, 01/31/2019 10:19 02/01/2019 2:44 Venous) AM LIVESTOCK JUDGING COACH PM LIVESTOCK JUDGING COACH Joy Lee M.D. LAB BLOOD ADD-ON Performing Organization Address [facility] Phon e Number [address] [phone] [facility] [place] [address] System in [address] Rubella Antibodies, IgG (01/31/2019 10:19 AM LIVESTOCK JUDGING COACH) P athologist Signature Rubella Ab, Positive 02/02/2019 [facility] IgG, S 12:03 PM LIVESTOCK JUDGING COACH Comment: Results suggest response to immunization or prior exposure to the virus. ----REFERENCE VALUE---- Vaccinated: Positive (>=1.0 AI) Unvaccinated: Negative (<=0.7 AI) Rubella IgG Antibody Index 2.7 02/02/2019 12 :03 PM LIVESTOCK JUDGING COACH [facility] Specimen Anatomical Collection Method Collection Time Receive d Time (Source) Location / / Volume Laterality Blood (Blood, 01/31/2019 10:19 02/01/2019 2:44 Venous) AM LIVESTOCK JUDGING COACH PM LIVESTOCK JUDGING COACH Joy Lee M.D. LAB MICROBIOLOGY - BLOOD ORD ERABLES Performing Organization Address City/[facility] Phon e Number [address] [phone] [place] [address] System in [address] Hepatitis B Surface Antigen (01/31/2019 10:19 AM LIVESTOCK JUDGING COACH) [facility] [employer] Method Time Signature HBs Antigen, Nonreactive Nonreactive 01/31/2019 AUST S 4:48 PM LIVESTOCK JUDGING COACH Comment: Biotin has been identified by the madeline wheatley as a potential interfering substance. ??Higher concentr ations of biotin may be found in multivitamins, hair/nail supple ments, and workout supplements. ??If the result does not ma [facility] clinical observations, repeat testing after patient refrains fr om the use of supplements for at least 12 hours. Specimen Anatomical Collection Method Collection Time Receive d Time (Source) Location / / Volume Laterality Blood (Blood, 01/31/2019 10:19 01/31/2019 3:43 Venous) AM LIVESTOCK JUDGING COACH PM LIVESTOCK JUDGING COACH Joy Lee M.D. LAB MICROBIOLOGY - BLOOD ORD ERABLES Performing Organization Address City/State/ZIP Code Phon e Number [facility]- [address] LAB [place] [facility] - [address] (ABNORMAL) CBC with Differential, Blood (01/31/2019 10:19 AM LIVESTOCK JUDGING COACH) [facility] Method Time Signature Hemoglobin 12.4 11.6 - 01/31/2019 FB60 15.0 g/dL 10:34 AM LIVESTOCK JUDGING COACH Hematocrit 38.4 35.5 - 01/31/2019 FB60 44.9 % 10:34 AM LIVESTOCK JUDGING COACH Erythrocytes 4.28 3.92 - 01/31/2019 FB60 5.13 10:34 AM LIVESTOCK JUDGING COACH x10(12)/L MCV 89.7 78.2 - 01/31/2019 FB60 97.9 fL 10:34 AM LIVESTOCK JUDGING COACH RBC Distrib Width 13.0 12.2 - 01/31/2019 FB60 16.1 % 10:34 AM LIVESTOCK JUDGING COACH Platelet Count 299 157 - 371 01/31/2019 FB60 x10(9)/L 10:34 AM LIVESTOCK JUDGING COACH Leukocytes 11.3 (H) 3.4 - 9.6 01/31/2019 FB60 x10(9)/L 10:34 AM LIVESTOCK JUDGING COACH Neutrophils 8.92 (H) 1.56 - 01/31/2019 FB60 6.45 10:34 AM LIVESTOCK JUDGING COACH x10(9)/L Lymphocytes 1.67 0.95 - 01/31/2019 FB60 3.07 10:34 AM LIVESTOCK JUDGING COACH x10(9)/L Monocytes 0.63 0.26 - 01/31/2019 FB60 0.81 10:34 AM LIVESTOCK JUDGING COACH x10(9)/L Eosinophils 0.07 0.03 - 01/31/2019 FB60 0.48 10:34 AM LIVESTOCK JUDGING COACH x10(9)/L Basophils 0.01 0.01 - 01/31/2019 FB60 0.08 10:34 AM LIVESTOCK JUDGING COACH x10(9)/L Specimen Anatomical Collection Method Collection Time Receive d Time (Source) Location / / Volume Laterality Blood (Blood, 01/31/2019 10:19 01/31/2019 Venous) AM LIVESTOCK JUDGING COACH 10:19 AM LIVESTOCK JUDGING COACH Joy Lee M.D. LAB BLOOD ADD-ON Performing Organization Address City/State/ZIP Code Phon e Number [address] [place] [address] [facility] [address] [place] [address] System [address] ABORh, RBC (01/31/2019 10:19 AM LIVESTOCK JUDGING COACH) P athologist Signature ABO Group A 02/01/2019 10:45 AUST AM LIVESTOCK JUDGING COACH Rh Type NEG 02/01/2019 10:45 AUST AM LIVESTOCK JUDGING COACH Specimen Anatomical Collection Method Collection Time Receive d Time (Source) Location / / Volume Laterality Blood (Blood, 01/31/2019 10:19 01/31/2019 3:42 Venous) AM LIVESTOCK JUDGING COACH PM LIVESTOCK JUDGING COACH Joy Lee M.D. LAB BLOOD BANK TEST ORDERABL ES Performing Organization Address City/State/ZIP Code Phon e Number [facility]- [address] [place] [address] [facility] [place], [place] [id number] [place] [address] (ABNORMAL) Antibody Screen, RBC (with reflex Antibody ID) (01/31/2019 10:19 AM LIVESTOCK JUDGING COACH) P athologist Signature Antibody POS (A) 02/01/2019 AUST Screen 10:45 AM LIVESTOCK JUDGING COACH Specimen Anatomical Collection Method Collection Time Receive d Time (Source) Location / / Volume Laterality Blood (Blood, 01/31/2019 10:19 01/31/2019 3:42 Venous) AM LIVESTOCK JUDGING COACH PM LIVESTOCK JUDGING COACH Joy Lee M.D. LAB BLOOD BANK TEST ORDERABL ES Performing Organization Address City/State/ZIP Code Phon e Number [facility]- [address] [place] [address] [facility] [place] [place] [address] [facility] [address] (ABNORMAL) Bacterial Culture, Aerobic + Susc, Urine (01/31/2019 10:15 AM LIVESTOCK JUDGING COACH) Analysis Performed At Patho logist Time Signature Urine Culture Mixed 02/01/2019 MKTO sumeet. (A) 4:15 PM LIVESTOCK JUDGING COACH Specimen Anatomical Collection Method Collection Time Receive d Time (Source) Location / / Volume Laterality Urine (Urine, 01/31/2019 10:15 01/31/2019 7:01 Midstream) AM LIVESTOCK JUDGING COACH PM LIVESTOCK JUDGING COACH Comment: Specimen Source Site: Urine Joy Lee M.D. LAB MICROBIOLOGY - GENERAL O RDERABLES Performing Organization Address City/[facility]/ZIP Code Phon e Number [facility]- [address] [place] [phone] [place] [address] [place] [address] System [address] documented in this encounter Visit Diagnoses [...] documented as of this encounter Care Teams Aeronautical Design Engineer Relationship Specialty Start Date End Date Marisel Ferrer M.D. PCP - General Family Medicine 07/11/18 03/24/20 [address] [place] [phone] documented as of this encounter
--- OUTSIDE RECORDS SUMMARY | 2021-12-09 13:22 | XMS_ITS | Encounter Summary ---
:1985 Author Organization [facility] Address [address] [place] [address] Care Team Providers Name Role Phone Marisel Ferrer M.D. Primary Care Provider [phone] Encounter Details Date Type Department Care Team Description 2019 E-Visit Express [facility] Emilee Lundberg RE : E-Visit Submission: Services in [place] rajinder Canela R.N. COVID-19 (Coronavirus) [address] [facility] 200 [facility] [place] [address] [phone] Social History Tobacco Use Types Packs/Day Years [...] How often do you attend jain or mosque Never 01/31/2019 services? 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/2018 2:20 PM CASTING OPERATOR documented as of this encounter Plan of Treatment Not on filedocumented as of this encounter Visit Diagnoses Diagnosis Infection Upper Respiratory Viral - Prim joanna documented in this encounter Additional Health Concerns Assessment Noted Time PHQ-9 Depression Total Score: 15 09/28/2017 3:51 PM CD T documented as of this encounter Care Teams Finishing Trimmer Relationship Specialty Start Date End Date Marisel Ferrer M.D. PCP - General Family Medicine 07/11/18 03/24/[address] [address] documented as of this encounter
--- OUTSIDE RECORDS SUMMARY | 2021-12-09 13:22 | XMS_ITS | Encounter Summary ---
:1985 Author Organization [facility] Address [address] [place] [address] Care Team Providers Name Role Phone Marisel Ferrer M.D. Primary Care Provider [phone] Encounter Details Date Type Department Care Team Description 01/31/2019 Silent Schedule Department of Obstetrics [place], and Gynecology in [place], [place] [address] [phone] (Wo rk) Social History Tobacco Use Types [...] How often do you attend taoism or congregational Never 01/31/2019 services? Do you [...] Date Recorded Female 01/11/2018 2:20 PM BAND TIER documented as of this encounter Plan of Treatment Not on filedocumented as of this encounter Procedures Procedure Name Priority Date/Time Associated Comments Diagnosis US OB LIMITED RAD - Routine 01/31/2019 5:42 Examination Results fo r this (most inpatients PM BAND TIER Other procedure are in and all Normal the results outpatients) First Trimester section. documented in this encounter Results US OB Limited (01/31/2019 5:42 PM BAND TIER) P athologist Signature FHR 126 bpm CRL 7.1 mm Anatomical Region Laterality Modality Ultrasound OB RST LOS, Ultrasound ARZ LOS, Ultrasound FLA LO S, N/A Ultrasound Ultrasound ARZ LOS Specimen (Source) Anatomical Location Collection Method / Collectio n Time Received Time / Laterality Volume Narrative 01/31/2019 5:42 PM BAND TIER Single, living intrauterine with crown-rump length of [...] as of this encounter Care Teams Director Of Events Relationship Specialty Start Date End Date Marisel Ferrer M.D. PCP - General Family Medicine 07/11/18 03/24/20 [address] [place] [phone] documented as of this encounter
--- OUTSIDE RECORDS SUMMARY | 2021-12-09 13:22 | XMS_ITS | Encounter Summary ---
:1985 Author Organization [facility] Address [address] [place] [address] Care Team Providers Name Role Phone Marisel Ferrer M.D. Primary Care Provider [phone] Encounter Details Date Type Department Care Team Description 02/14/2019 Silent Schedule Department of Obstetrics [place], and Gynecology in [place], [place] [address] [phone] (Wo rk) Social History Tobacco Use Types [...] How often do you attend cheondoism or mandaeism Never 01/31/2019 services? 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/2018 2:20 PM PHOTOENGRAVING ETCHER APPRENTICE documented as of this encounter Plan of Treatment Not on filedocumented as of this encounter Procedures Procedure Name Priority Date/Time Associated Comments Diagnosis US OB LIMITED RAD - Routine 02/14/2019 1:32 Examination Results fo r this (most inpatients PM PHOTOENGRAVING ETCHER APPRENTICE Other procedure are in and all Normal the results outpatients) First Trimester section. documented in this encounter Results US OB Limited (02/14/2019 1:32 PM PHOTOENGRAVING ETCHER APPRENTICE) P athologist Signature FHR 172 bpm CRL 19.5 mm Anatomical Region Laterality Modality Ultrasound OB RST LOS, Ultrasound ARZ LOS, Ultrasound FLA LO S, N/A Ultrasound Ultrasound ARZ LOS Specimen (Source) Anatomical Location Collection Method / Collectio n Time Received Time / Laterality Volume Narrative 02/14/2019 1:32 PM PHOTOENGRAVING ETCHER APPRENTICE Single, living intrauterine with crown-rump length of [...] documented as of this encounter Care Teams Photo Cartographer Relationship Specialty Start Date End Date Marisel Ferrer M.D. PCP - General Family Medicine 07/11/18 03/24/20 [address], [place] [address] documented as of this encounter
--- OUTSIDE RECORDS SUMMARY | 2021-12-09 13:22 | XMS_ITS | Encounter Summary ---
:1985 Author Organization [facility] Address [address] [place] [address] Care Team Providers Name Role Phone Marisel Ferrer M.D. Primary Care Provider [phone] Encounter Details Date Type Department Care Team Description 04/04/2019 Clinical Communication Department of [facility] Obstetrics and [place] Gynecology in [address] [place], [place] 200 [facility] [address] [place], [place] [phone] [phone] (Work) [phone] Social History Tobacco Use Types Packs/Day Years [...] How often do you attend islam or episcopalian Never 01/31/2019 services? 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/2018 2:20 PM PHARMACIST IN CHARGE documented as of this encounter Miscellaneous Notes Telephone Encounter - Virgen Harris R.N. - 04/07/2019 8:20 AM CST Name of person contacted: Patient Relationship to patient: Not applicable Call back number: n/a Rigger Chief: Not applicable Information provided: results/recommendations. Does not wish to schedule any further consults at this time. Advised to call back if she desires in the future department store salesperson/patient received and understood education/information provided: Yes department store salesperson/patient agreed to the Plan of Care: Yes MACIST IN CHARGE Telephone Encounter - Joy Lee M.D. - 04/04/2019 6:07 PM PHARMACIST IN CHARGE Please let Wendi know that the genetic studies returned normal on the products of the . 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 If she would like to discuss the recurrent losses further, she should schedule an appointment MACIST IN CHARGE documented in this encounter Plan of Treatment Not on filedocumented as of this encounter Visit Diagnoses Not on filedocumented in this encounter Additional Health Concerns Assessment Noted Time PHQ-9 Depression Total Score: 15 09/28/2017 3:51 PM CD T documented as of this encounter Care Teams Server Support Technician Relationship Specialty Start Date End Date Marisel Ferrer M.D. PCP - General Family Medicine 07/11/18 03/24/20 [address], [place] [address] documented as of this encounter
--- OUTSIDE RECORDS SUMMARY | 2021-12-09 13:22 | XMS_ITS | Encounter Summary ---
:1985 Author Organization [facility] Address [address] [place] [address] Care Team Providers Name Role Phone Kandi Alberts APRN, C.N.P. Primary Care Provider [phone] Reason for Visit Reason Comments Lesion bumps under both eyes and ge tting worse Appointment Request (Routine) - Closed Specialty Diagnoses / Procedures Referred By Contact Refer red To Contact Family Medicine Referral ID Status Reason Start Date Expiration Date Visits Requ ested Visits Authorized [id number] Closed 05/16/2018 05/16/2019 1 Encounter Details Date Type Department Care Team Description 05/31/2018 Comprehensive Visit Department of Elsi Resendiz, [place] aged Skin (Primary Dx); Dermatology in [place] C.N.[place], Rosacea; [place], [place] M.S.N. Acne [address] [place], [place] [address] [address] [place], [place] [phone] Social History Tobacco Use Types Packs/Day [...] How often do you attend adventism or quaker Never 01/31/2019 services? 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/2018 2:20 PM RUBBER MILL TENDER documented as of this encounter Progress Notes [...] documented as of this encounter Care Teams Banquet Kitchen Supervisor Relationship Specialty Start Date End Date Kandi Alberts APRN, C.N.P. PCP - General 07/27/16 07/10/[address] [phone] documented as of this encounter
--- OUTSIDE RECORDS SUMMARY | 2021-12-09 13:22 | XMS_ITS | Encounter Summary ---
:1985 Author Organization [facility] Address [address] [place] [address] Care Team Providers Name Role Phone Marisel Ferrer M.D. Primary Care Provider Encounter Details Date Type Department Care Team Description 09/11/2018 Orders Only [facility] - Anneliese Ferrer, [address] [facility] [address] [place] [address] [phone] [place] [address] (Wo rk) Social History Tobacco [...] How often do you attend episcopalian or pentecostalism Never 01/31/2019 services? Do you belong to [...] to pay for the very basics like [employer] hat hard 11/27/2019 food, housing, medical care, [...] at Date Recorded Female 01/11/2018 2:20 PM PICKLING SOLUTION MAKER documented as of this encounter Plan of Treatment Not on filedocumented as of this encounter Visit Diagnoses Not on filedocumented in this encounter Additional Health Concerns Assessment Noted Time PHQ-9 Depression Total Score: 15 09/28/2017 3:51 PM CD T documented as of this encounter Care Teams Diesel Technician Relationship Specialty Start Date End Date Marisel Ferrer M.D. PCP - General Family Medicine 07/11/18 03/24/[address] [phone] documented as of this encounter
--- OUTSIDE RECORDS SUMMARY | 2021-12-09 13:22 | XMS_ITS | Encounter Summary ---
:1985 Author Organization [facility] Address [address] [place] [address] Care Team Providers Name Role Phone Marisel Ferrer M.D. Primary Care Provider [phone] Encounter Details Date Type Department Care Team Description 02/03/2019 Clinical Communication Department of [facility] and [place] [place] Gyne[facility] in [address] [address] [place] [address] Social History Tobacco Use Types Packs/Day [...] How often do you attend confucianist or restorationist Never 01/31/2019 services? Do you [...] to pay for the very basics like [employer] hat hard 11/27/2019 food, housing, medical care, [...] at Date Recorded Female 01/11/2018 2:20 PM BANK MESSENGER documented as of this encounter Miscellaneous Notes Telephone Encounter - Marylou Urena R.N. - 02/04/2019 1:03 PM CST No, the lab places the order for antibody identification. MESSENGER Telephone Encounter - Joy Lee M.D. - 02/04/2019 12:55 PM BANK MESSENGER Noted. I agree with plan. Do I need to place the order? MESSENGER Telephone Encounter - Chika Napier - 02/03/2019 1:50 PM CST The order will be in for additional testing and will need to be completed after her 02/14/[address] Lee. MESSENGER Telephone Encounter - Alessandra De Anda - 02/03/2019 12:52 PM CST Reason for Communication: Scooter from [facility] [place] calling, is needing an additional antibody screen added and patient has upcoming appt on 02/14, wondering if it can be done at that time Current Can Nursing/Provider leave a detailed message: yes Did the patient refuse triage through Nurse line? (for symptom based concerns): Action Needed: Name of Medication (if relevant): MESSENGER documented in this encounter Plan of Treatment Not on filedocumented as of this encounter Visit Diagnoses Not on filedocumented in this encounter Additional Health Concerns Assessment Noted Time PHQ-9 Depression Total Score: 15 09/28/2017 3:51 PM CD T documented as of this encounter Care Teams Delimber Operator Relationship Specialty Start Date End Date Marisel Ferrer M.D. PCP - General Family Medicine 07/11/18 03/24/[address] [phone] documented as of this encounter
--- OUTSIDE RECORDS SUMMARY | 2021-12-09 13:22 | XMS_ITS | Encounter Summary ---
:[address] [facility] Address [address] [place] [address] Care Team Providers Name Role Phone Marisel Ferrer M.D. Primary Care Provider [phone] Encounter Details Date Type Department Care Team Description 01/31/2019 Hospital Encounter Department of Alona Lee Laboratory Medicine [place] Other Normal in [place], [address] Trimester [address] [place], [place] [address] [phone] Social History Tobacco Use Types Packs/Day Years [...] How often do you attend shinto or jainism Never 01/31/2019 services? Do you [...] to pay for the very basics like [employer] hat hard 11/27/2019 food, housing, medical care, [...] Date Recorded Female 01/11/2018 2:20 PM MANAGER AUDIT documented as of this encounter Medications at [...] atal Results for this W/ REFLEX S MANAGER AUDIT Other Normal procedure are i n First the results Trimester section. ABORH, RBC Routine 01/31/2019 10:19 AM Examination Results for this MANAGER AUDIT Other Normal procedure are i n First the results Trimester section. 25-HYDROXYVITAMIN Routine 01/31/2019 10:19 AM Examination Pren atal Results for this D2 AND D3, S MANAGER AUDIT Other Normal procedure are i n First the results Trimester section. RUBELLA ANTIBODIES, Routine 01/31/2019 10:19 AM Examination Pr enatal Results for this IGG MANAGER AUDIT Other Normal procedure are i n First the results Trimester section. HEPATITIS B SURFACE Routine 01/31/2019 10:19 AM Examination Pr enatal Results for this ANTIGEN MANAGER AUDIT Other Normal procedure are i n First the results Trimester section. CBC WITH Routine 01/31/2019 10:19 AM Examination Results for this DIFFERENTIAL, B MANAGER AUDIT Other Normal procedure ar e in First the results Trimester section. ANTIBODY SCREEN, B Routine 01/31/2019 10:19 AM Examination Pre louise Results for this MANAGER AUDIT Other Normal procedure are i n First the results Trimester section. documented in this encounter Results 25-Hydroxyvitamin D2 and D3 (01/31/2019 10:19 AM MANAGER AUDIT) athologist Signature 25-Hydroxy D2 <4.0 ng/mL 02/06/2019 SDSC 1:50 AM MANAGER AUDIT 25-Hydroxy D3 32 ng/mL 02/06/2019 SDSC 1:50 AM MANAGER AUDIT 25-Hydroxy D 32 ng/mL 02/06/2019 SDS Total 1:50 AM MANAGER AUDIT Comment: ----REFERENCE VALUE---- 25-HYDROXY D TOTAL (D2+D3) Optimum level s in the healthy population are 20-50, patients with bone disease may benefit from higher levels within this r hoa. ----ADDITIONAL INFORMATION---- This test was developed and its performa nce characteristics determined by [facility] in a manner consistent with CLIA requirements. This test has not been cleared or approved by the [place] L[place] d and Drug Administration. Specimen Anatomical Collection Method Collection Time Receive d Time (Source) Location / / Volume Laterality Blood (Blood, 01/31/2019 10:19 02/03/2019 7:56 Venous) AM MANAGER AUDIT AM MANAGER AUDIT Joy Lee M.D. LAB BLOOD ADD-ON Performing Organization Address City/State/ZIP Code Phon e Number [facility] [address] [place] [address] [facility] [facility] [facility] [place] [address] Laboratory Medicine and Pathology [address] [place] Syphilis Total Ab w/ Reflex, Serum (01/31/2019 10:19 AM MANAGER AUDIT) Patholo gist Method Time Signature Syphilis Nonreactive Nonreactive 02/02/2019 [facility] Total Ab w/ 12:03 PM MANAGER AUDIT Reflex Comment: No serologic evidence of infection with T. pallidum (syphilis). ??Repeat testing may be cons idered in patients with suspected acute or primary syphilis in 2-4 weeks. For additional information on interpreta tion of the syphilis reverse algorithm and resul ts, see: [email or web address] memorial health systemsAvrio Solutions Company [email or web address]/ it-[email or web address]_Serology_Algorithm.p df Specimen Anatomical Collection Method Collection Time Receive d Time (Source) Location / / Volume Laterality Blood (Blood, 01/31/2019 10:19 02/01/2019 2:44 Venous) AM MANAGER AUDIT PM MANAGER AUDIT Joy Lee M.D. LAB BLOOD ADD-ON Performing Organization Address [facility] Phon e Number [phone] [facility] [place] [address] System in [address] Rubella Antibodies, IgG (01/31/2019 10:19 AM MANAGER AUDIT) P athologist Signature Rubella Ab, Positive 02/02/2019 [facility] IgG, S 12:03 PM MANAGER AUDIT Comment: Results suggest response to immunization or prior exposure to the virus. ----REFERENCE VALUE---- Vaccinated: Positive (>=1.0 AI) Unvaccinated: Negative (<=0.7 AI) Rubella IgG Antibody Index 2.7 02/02/2019 12 :03 PM MANAGER AUDIT [facility] Specimen Anatomical Collection Method Collection Time Receive d Time (Source) Location / / Volume Laterality Blood (Blood, 01/31/2019 10:19 02/01/2019 2:44 Venous) AM MANAGER AUDIT PM MANAGER AUDIT Joy Lee M.D. LAB MICROBIOLOGY - BLOOD ORD ERABLES Performing Organization Address City/[facility] Phon e Number [address] [phone] [place] [address] System in [address] Hepatitis B Surface Antigen (01/31/2019 10:19 AM MANAGER AUDIT) [facility] ClearGist Method Time Signature HBs Antigen, Nonreactive Nonreactive 01/31/2019 AUST S 4:48 PM MANAGER AUDIT Comment: Biotin has been identified by the [...] (Blood, 01/31/2019 10:19 01/31/2019 3:43 Venous) AM MANAGER AUDIT PM MANAGER AUDIT Joy Lee M.D. LAB MICROBIOLOGY - BLOOD ORD ERABLES Performing Organization Address City/State/ZIP Code Phon e Number [facility]- [address] [place], [place] [phone] [place] [address] LAB AUST [facility] [place], [place] [id number] [place] [address] (ABNORMAL) CBC with Differential, Blood (01/31/2019 10:19 AM MANAGER AUDIT) [facility] ClearGist Method Time Signature Hemoglobin 12.4 11.6 - 01/31/2019 FB60 15.0 g/dL 10:34 AM MANAGER AUDIT Hematocrit 38.4 35.5 - 01/31/2019 FB60 44.9 % 10:34 AM MANAGER AUDIT Erythrocytes 4.28 3.92 - 01/31/2019 FB60 5.13 10:34 AM MANAGER AUDIT x10(12)/L MCV 89.7 78.2 - 01/31/2019 FB60 97.9 fL 10:34 AM MANAGER AUDIT RBC Distrib Width 13.0 12.2 - 01/31/2019 FB60 16.1 % 10:34 AM MANAGER AUDIT Platelet Count 299 157 - 371 01/31/2019 FB60 x10(9)/L 10:34 AM MANAGER AUDIT Leukocytes 11.3 (H) 3.4 - 9.6 01/31/2019 FB60 x10(9)/L 10:34 AM MANAGER AUDIT Neutrophils 8.92 (H) 1.56 - 01/31/2019 FB60 6.45 10:34 AM MANAGER AUDIT x10(9)/L Lymphocytes 1.67 0.95 - 01/31/2019 FB60 3.07 10:34 AM MANAGER AUDIT x10(9)/L Monocytes 0.63 0.26 - 01/31/2019 FB60 0.81 10:34 AM MANAGER AUDIT x10(9)/L Eosinophils 0.07 0.03 - 01/31/2019 FB60 0.48 10:34 AM MANAGER AUDIT x10(9)/L Basophils 0.01 0.01 - 01/31/2019 FB60 0.08 10:34 AM MANAGER AUDIT x10(9)/L Specimen Anatomical Collection Method Collection Time Receive d Time (Source) Location / / Volume Laterality Blood (Blood, 01/31/2019 10:19 01/31/2019 Venous) AM MANAGER AUDIT 10:19 AM MANAGER AUDIT Joy Lee M.D. LAB BLOOD ADD-ON Performing Organization Address City/State/ZIP Code Phon e Number [address] [place] [address] [facility] [address] [place] [address] System [address] ABORh, RBC (01/31/2019 10:19 AM MANAGER AUDIT) P athologist Signature ABO Group A 02/01/2019 10:45 AUST AM MANAGER AUDIT Rh Type NEG 02/01/2019 10:45 AUST AM MANAGER AUDIT Specimen Anatomical Collection Method Collection Time Receive d Time (Source) Location / / Volume Laterality Blood (Blood, 01/31/2019 10:19 01/31/2019 3:42 Venous) AM MANAGER AUDIT PM MANAGER AUDIT Joy Lee M.D. LAB BLOOD BANK TEST ORDERABL ES Performing Organization Address City/State/ZIP Code Phon e Number [facility]- [address] [place] [address] [facility] [place], [place] [phone] [place] [address] (ABNORMAL) Antibody Screen, RBC (with reflex Antibody ID) (01/31/2019 10:19 AM MANAGER AUDIT) P athologist Signature Antibody POS (A) 02/01/2019 AUST Screen 10:45 AM MANAGER AUDIT Specimen Anatomical Collection Method Collection Time Receive d Time (Source) Location / / Volume Laterality Blood (Blood, 01/31/2019 10:19 01/31/2019 3:42 Venous) AM MANAGER AUDIT PM MANAGER AUDIT Joy Lee M.D. LAB BLOOD BANK TEST ORDERABL ES Performing Organization Address City/State/ZIP Code Phon e Number [facility]- [address] [place] [address] [facility] [place] [address] [facility] [address] documented in this encounter Visit Diagnoses Diagnosis Examination Other Normal Pregna ncy First Trimester (HCC) documented in this encounter Additional Health Concerns Assessment Noted Time PHQ-9 Depression Total Score: 15 09/28/2017 3:51 PM CD T documented as of this encounter Care Teams Talent Acquisition Specialist Relationship Specialty Start Date End Date Marisel Ferrer M.D. PCP - General Family Medicine 07/11/18 [address], [place] [phone] documented as of this encounter
--- OUTSIDE RECORDS SUMMARY | 2021-12-09 13:22 | XMS_ITS | Encounter Summary ---
:1985 Author Organization [facility] Address [address] [place] [address] Care Team Providers Name Role Phone Marisel Ferrer M.D. Primary Care Provider [phone] Encounter Details Date Type Department Care Team Description 02/25/2019 Silent Schedule Department of Obstetrics [place], and Gynecology in [place], [place] [address] [phone] (Wo rk) Social History Tobacco Use Types [...] How often do you attend buddhist or yazdanism Never 01/31/2019 services? 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/2018 2:20 PM SCHOOL PSYCHOMETRIST documented as of this encounter Plan of Treatment Not on filedocumented as of this encounter Procedures Procedure Name Priority Date/Time Associated Comments Diagnosis US OB LIMITED RAD - Routine 02/25/2019 2:31 Missed Results for this (most inpatients PM SCHOOL PSYCHOMETRIST (HCC) procedure a re in and all the results outpatients) section. documented in this encounter Results US OB Limited (02/25/2019 2:31 PM SCHOOL PSYCHOMETRIST) P athologist Signature CRL 32.3 mm Anatomical Region Laterality Modality Ultrasound OB RST LOS, Ultrasound ARZ LOS, Ultrasound FLA LO S, N/A Ultrasound Ultrasound ARZ LOS Specimen (Source) Anatomical Location Collection Method / Collectio n Time Received Time / Laterality Volume Narrative 02/25/2019 2:31 PM SCHOOL PSYCHOMETRIST Nonviable intrauterine noted with crown-rump length of [...] documented as of this encounter Care Teams Cupola Melter Helper Relationship Specialty Start Date End Date Marisel Ferrer M.D. PCP - General Family Medicine 07/11/18 03/24/20 [address] [place] [phone] documented as of this encounter
--- OUTSIDE RECORDS SUMMARY | 2021-12-09 13:22 | XMS_ITS | Encounter Summary ---
:1985 Author Organization [facility] Address [address] [place] [address] Care Team Providers Name Role Phone Kandi Alberts APRN, C.N.P. 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 [address] [place] [address] Referral ID Status Reason Start Date Expiration Visits Visits Date Requested Authorized [id number] Closed Patient 06/03/2018 06/03/2019 1 1 Preference Reason for Visit Outpatient (Routine) - Closed Specialty Diagnoses / Procedures Referred By Contact Refer red To Contact Pain Medicine Diagnoses Pain Leg Aster Correa APRN, [facility], [facility] [address] [place], [place] [address] Referral ID Status Reason Start Date Expiration Date Visits V isits Requested Authorized [id number] Closed Specialty 2018 2019 1 1 Services Required Encounter Details Date Type Department Care Team Description 06/03/2018 Comprehensive Visit Division of Pain Tiffanie, Pain Low Back Chronic (Primary Dx); Medicine in Gurmeet Hickman, Pain Leg; Jami Tatum, M.P.H. Postlaminectomy Syndrome; [place] [address] Iliotibial Band Syndrome Left [address] [place] [phone] Social History Tobacco Use Types Packs/Day Years [...] How often do you attend yarsanism or bahai Never 01/31/2019 services? 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/2018 2:20 PM INSOLE STIFFENER documented as of this encounter Consult Notes [...] trialed conservative therapies including physical therapy, acupuncture, child care supervisor, as well as a recent L5 transforaminal [...] History: Diagnosis Date ??? Alcoholism Personal History ([facility]) [phone] ??? Dependence Alcohol ([facility]) ??? 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 Suicide Attempt Personal History overdose Review [...] documented as of this encounter Care Teams Interior Design Program Chair Relationship Specialty Start Date End Date Kandi Alberts, TATY, C.N.P. PCP - General 07/27/16 07/10/[address] [phone] documented as of this encounter
--- OUTSIDE RECORDS SUMMARY | 2021-12-09 13:22 | XMS_ITS | Encounter Summary ---
:1985 Author Organization [facility] Address [address] [place] [address] Care Team Providers Name Role Phone Marisel Ferrer M.D. Primary Care Provider Reason for Visit Reason Onset Date Comments Post Hospital Follow-up 12/20/2018 Encounter Details Date Type Department Care Team Description 12/20/2018 Clinical Communication Department of [facility] Family Medicine, [facility], Follow-up [place] Marisel Cabrera M.D. in [address] [place] [phone] Social History Tobacco Use Types Packs/Day Years [...] How often do you attend rastafarian or shinto Never 01/31/2019 services? Do you [...] to pay for the very basics like MROw hat hard 11/27/2019 food, housing, medical care, [...] Date Recorded Female 01/11/2018 2:20 PM RESEARCH ASSOCIATE MOLECULAR BIOLOGY documented as of this encounter Miscellaneous Notes Telephone Encounter - Poornima Bennett R.N. - 12/20/2018 10:44 AM CST Noted. ARCH ASSOCIATE MOLECULAR BIOLOGY Telephone Encounter - Smitha Monet - 12/20/2018 10:33 AM RESEARCH ASSOCIATE MOLECULAR BIOLOGY Called and spoke with the patient. She lives an hour away and does not plan to follow up here. She has other follow up appointments scheduled already. ARCH ASSOCIATE MOLECULAR BIOLOGY Telephone Encounter - Janel Alberto - 12/20/2018 8:36 AM CST Hospital: Gen Diagnosis: spine surgery Discharge date: 12/20/2018 When to be seen: Gen would like the patient seen on Sunday12/23/[address] her [address] Dr Brush is out of the office. Comments: Please call the patient back to set up an appt ARCH ASSOCIATE MOLECULAR BIOLOGY documented in this encounter Plan of Treatment Not on filedocumented as of this encounter Visit Diagnoses Not on filedocumented in this encounter Additional Health Concerns Assessment Noted Time PHQ-9 Depression Total Score: 15 09/28/2017 3:51 PM CD T documented as of this encounter Care Teams Insecticide Mixer Relationship Specialty Start Date End Date Marisel Ferrer M.D. PCP - General Family Medicine 07/11/18 03/24/[address] [phone] documented as of this encounter
--- OUTSIDE RECORDS SUMMARY | 2021-12-09 13:22 | XMS_ITS | Encounter Summary ---
:1985 Author Organization [facility] Address [address] [place] [address] Care Team Providers Name Role Phone Kandi Alberts APRN C.N.P. Primary Care Provider [phone] Reason for Referral Outpatient (Routine) - Closed Specialty Diagnoses / Procedures Referred By Contact Refer red To Contact Pain Medicine Diagnoses [facility] Procedures FL Lumbar Spine Transforaminal Epidural Injection Left IN INJ ANES FORAMEN EPI LUMB SNGL HC INJ ANES FORAMEN EPI LUMB SNGL IN INJ ANES FORAMEN EPI LUMB SNGL M.D. [address] [place] [address] Referral ID Status Reason Start Date Expiration Date Visits Requ ested Visits Authorized [id number] Closed 03/27/2018 03/27/2019 1 1 PLER Reason for Visit Outpatient (Routine) - Closed Specialty Diagnoses / Procedures Referred By Contact Refer red To Contact Pain Medicine Diagnoses Radiculopathy Lumbar [facility] Procedures FL Lumbar Spine Transforaminal Epidural Injection Left IN INJ ANES FORAMEN EPI LUMB SNGL HC INJ ANES FORAMEN EPI LUMB SNGL IN INJ ANES FORAMEN EPI LUMB SNGL M.D. [address] [place] [address] Referral ID Status Reason Start Date Expiration Date Visits Requ ested Visits Authorized [id number] Closed 03/27/2018 03/27/2019 1 1 Encounter Details Date Type Department Care Team Description 04/17/2018 Hospital Encounter Division of Pain Bibi, Kat[place] ulopathy Lumbar Medicine in Matthias Higgins M.D. [place], [place] [address] [facility] [address] [place] [phone] Social History Tobacco Use Types Packs/Day Years [...] How often do you attend yarsani or quaker Never 01/31/2019 services? 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/2018 2:20 PM GRAPPLER documented as of this encounter Last Filed Vital Signs Vital Sign Reading Time Taken Comments Blood Pressure 118/94 04/17/2018 1:25 PM GRAPPLER Pulse 100 04/17/2018 1:25 PM GRAPPLER Temperature 36.9 ??C (98.4 ??F) 04/17/2018 12:42 PM GRAPPLER Respiratory Rate - - Oxygen Saturation 98% 04/17/2018 1:25 PM GRAPPLER Inhaled Oxygen Concentration - - Weight - [...] decision maker.: Consent for transfusion was obtained [place] protocol: All relevant documentation and testing were [...] for the procedure: yes Site preparation: Chlorhexidine PLER documented in this encounter Plan of Treatment Not on filedocumented as of this encounter Procedures Procedure Name Priority Date/Time Associated Comments Diagnosis FL LUMBAR SPINE RAD - Routine 04/17/2018 1:22 Radiculopathy Results for TRANSFORAMINAL (most inpatients PM GRAPPLER Lumbar this proc edure EPIDURAL INJECTION and all are in th e LEFT outpatients) results section. documented in this encounter Results FL LUMBAR SPINE TRANSFORAMINAL EPIDURAL INJECTION LEFT (04/17/2018 1:22 PM GRAPPLER) Specimen (Source) Anatomical Location Collection Method / Collectio n Time Received Time / Laterality Volume Narrative Darwin Pisano M.D. - 04/17/2018 1:10 PM GRAPPLER Darwin Pisano M.D. ? 04/17/2018 ??1:30 PM [...] decision maker.: ??Consent for transfusion was obtained [place] protocol: ??All relevant documentation and testin g [...] injection 10 mg Given 04/17/2018 1:10 PM GRAPPLER 10 mg (DECADRON) 10 mg, injection, One-Time Injection, Starting on Sun04/17/18 at 1310, For 1 dose iohexol 300 mg iodine/mL solution 1 mL Given 04/17/2018 1:10 PM GRAPPLER 1 mL (OMNIPAQUE) 1 mL, injection, One-Time Injection, Starting on Sun04/17/18 at 1310, For 1 dose lidocaine 10 mg/mL (1 %) injection 5 mL Given 04/17/2018 1:10 PM GRAPPLER 5 mL (XYLOCAINE) 5 mL, injection, One-Time Injection, Starting on Sun04/17/18 at 1310, For 1 dose lidocaine 20 mg/mL injection 1 mL (XYLOC NEL) Given 04/17/2018 1:10 PM GRAPPLER 1 mL 1 mL, injection, One-Time Injection, Starting on Sun04/17/18 at 1310, For 1 dose documented in this encounter Additional Health Concerns Assessment Noted Time PHQ-9 Depression Total Score: 15 09/28/2017 3:51 PM CD T documented as of this encounter Care Teams Psychiatric Aide Relationship Specialty Start Date End Date Kandi Alberts, TATY, C.N.P. PCP - General 07/27/16 07/10/18 [address], [place] [phone] documented as of this encounter
--- OUTSIDE RECORDS SUMMARY | 2021-12-09 13:22 | XMS_ITS | Encounter Summary ---
:1985 Author Organization [facility] Address [address] [place] [address] Care Team Providers Name Role Phone Marisel Ferrer M.D. Primary Care Provider [phone] Reason for Visit Reason Comments Initial Visit Outpatient (Routine) - Canceled Specialty Diagnoses / Procedures Referred By Contact Refer red To Contact Obstetrics and David Allison M.D. [facility] [address] [place] [address] Referral ID Status Reason Start Date Expiration Date Visits V isits Requested Authorized [id number] Canceled 01/27/2019 01/27/2020 1 1 Encounter Details Date Type Department Care Team Description 01/29/2019 Routine Department of Gertrudis Carr Obstetrics jayda Mueller M.D. Examination T est Gynecology in With Positive Result [place], (Primary Dx) [address] [phone] Social History Tobacco Use Types Packs/Day Years [...] How often do you attend christian or advent Never 01/31/2019 services? 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/2018 2:20 PM DOT COMPLIANCE MANAGER documented as of this encounter Last Filed Vital Signs Vital Sign Reading Time Taken Comments Blood Pressure 104/66 01/29/2019 8:42 AM DOT COMPLIANCE MANAGER Pulse 72 01/29/2019 8:42 AM DOT COMPLIANCE MANAGER Temperature - - Respiratory Rate 16 01/29/2019 8:42 AM DOT COMPLIANCE MANAGER Oxygen Saturation - - Inhaled Oxygen Concentration - - Weight 53.4 kg (117 lb 13.4 oz) 01/29/2019 8:42 AM DOT COMPLIANCE MANAGER Height 161.3 cm (5' 3.5) 01/29/2019 8:49 AM DOT COMPLIANCE MANAGER Body Mass Index 20.55 01/29/2019 8:42 AM DOT COMPLIANCE MANAGER documented in this encounter Progress Notes Gertrudis Carr M.D. - 01/29/2019 9:15 AM CST Did not see patient, she left office prior to being seen, advised to reschedule by staff. COMPLIANCE MANAGER documented in this encounter Plan of Treatment Not on filedocumented as of this encounter Visit Diagnoses Diagnosis Examination Test With Positive Result (HCC) - Primary documented in this encounter Additional Health Concerns Assessment Noted Time PHQ-9 Depression Total Score: 15 09/28/2017 3:51 PM CD T documented as of this encounter Care Teams Health Care Facility Administrator Relationship Specialty Start Date End Date Marisel Ferrer M.D. PCP - General Family Medicine 07/11/18 03/24/[address] [address] documented as of this encounter
--- OUTSIDE RECORDS SUMMARY | 2021-12-09 13:23 | XMS_ITS | Encounter Summary ---
:1985 Author Organization [facility] Address [address] [place] [address] Care Team Providers Name Role Phone Kandi Alberts APRN C.N.P. Primary Care Provider [phone] Encounter Details Date Type Department Care Team Description 03/01/2018 Orders Only Department of Aster Correa Abnormal La boratory Orthopedic Surgery in DAVID POSEY, M.S. Results (Primary Dx) [place], [place] [address] [facility] [address] [place] [id number] [phone] Social History Tobacco Use Types Packs/Day Years [...] How often do you attend scientologist or denominational Never 01/31/2019 services? Do you belong to [...] Date Recorded Female 01/11/2018 2:20 PM BACK DIGGER OPERATOR documented as of this encounter Plan of Treatment Not on filedocumented as of this encounter Results CRP (C-Reactive Protein) (03/27/2018 1:16 PM BACK DIGGER OPERATOR) P athologist Signature C-Reactive <3.0 <=8.0 mg/L 03/27/2018 [facility] Protein (CRP), 2:23 PM BACK DIGGER OPERATOR LABORATORIES - S [facility] Specimen Anatomical Collection Method Collection Time Receive d Time (Source) Location / / Volume Laterality Blood (Blood, 03/27/2018 1:16 PM 03/27/19 19 1:38 Venous) BACK DIGGER OPERATOR PM BACK DIGGER OPERATOR DAVID Joseph APRN, M.S. LAB BLOOD ADD-ON Performing Organization Address City/[facility]/RUST Code Phon e Number [facility] LABORATORIES - [address] [phone] 05 [facility] Sedimentation Rate (03/27/2018 1:16 PM BACK DIGGER OPERATOR) [facility] Method Time Signature Sedimentation 5 0 - 29 03/27/2018 [facility] Rate, B mm/1 h 3:59 PM BACK DIGGER OPERATOR LABORATORIES - [facility] Specimen Anatomical Collection Method Collection Time Receive d Time (Source) Location / / Volume Laterality Blood (Blood, 03/27/2018 1:16 PM 03/27/19 19 1:37 Venous) BACK DIGGER OPERATOR PM BACK DIGGER OPERATOR DAVID Joseph APRN, M.S. LAB BLOOD ADD-ON Performing Organization Address City/State/[facility] Phon e Number [facility] LABORATORIES - [address] [address] [facility] (ABNORMAL) CBC with Differential, Blood (03/27/2018 1:16 PM BACK DIGGER OPERATOR) [facility] gist Method Time Signature Hemoglobin 12.8 11.6 - 03/27/2018 [facility] 15.0 g/dL 1:46 PM BACK DIGGER OPERATOR LABORATORIES - [facility] Hematocrit 38.6 35.5 - 03/27/2018 [facility] 44.9 % 1:46 PM BACK DIGGER OPERATOR LABORATORIES - [facility] Erythrocytes 4.45 3.92 - 03/27/2018 [facility] 5.13 1:46 PM BACK DIGGER OPERATOR LABORATORIES - x10(12)/L [facility] MCV 86.7 78.2 - 03/27/2018 [facility] 97.9 fL 1:46 PM BACK DIGGER OPERATOR LABORATORIES - [facility] RBC Distrib 12.1 (L) 12.2 - 03/27/2018 [facility] Width 16.1 % 1:46 PM BACK DIGGER OPERATOR LABORATORIES - [facility] Platelet Count 222 157 - 371 03/27/2018 [facility] x10(9)/L 1:46 PM BACK DIGGER OPERATOR LABORATORIES - [facility] Leukocytes 6.6 3.4 - 9.6 03/27/2018 [facility] x10(9)/L 1:46 PM BACK DIGGER OPERATOR LABORATORIES - [facility] Neutrophils 4.16 1.56 - 03/27/2018 [facility] 6.45 1:46 PM BACK DIGGER OPERATOR LABORATORIES - x10(9)/L [facility] Lymphocytes 1.92 0.95 - 03/27/2018 [facility] 3.07 1:46 PM BACK DIGGER OPERATOR LABORATORIES - x10(9)/L [facility] Monocytes 0.39 0.26 - 03/27/2018 [facility] 0.81 1:46 PM BACK DIGGER OPERATOR LABORATORIES - x10(9)/L [facility] Eosinophils 0.08 0.03 - 03/27/2018 [facility] 0.48 1:46 PM BACK DIGGER OPERATOR LABORATORIES - x10(9)/L [facility] Basophils 0.03 0.01 - 03/27/2018 [facility] 0.08 1:46 PM BACK DIGGER OPERATOR LABORATORIES - x10(9)/L [facility] Specimen Anatomical Collection Method Collection Time Receive d Time (Source) Location / / Volume Laterality Blood (Blood, 03/27/2018 1:16 PM 03/27/19 19 1:37 Venous) BACK DIGGER OPERATOR PM BACK DIGGER OPERATOR Aster Correa APRN, NETWORK RELATIONS CONSULTANT, M.S. LAB BLOOD ADD-ON Performing Organization Address City/State/ZIP Code Phon e Number [facility] LABORATORIES - [address] [place], [place] [address] [facility] documented in this encounter Visit Diagnoses Diagnosis Abnormal Laboratory Results - Primary documented in this encounter Additional Health Concerns Assessment Noted Time PHQ-9 Depression Total Score: 15 09/28/2017 3:51 PM CD T documented as of this encounter Care Teams Chief Strategy Officer Relationship Specialty Start Date End Date Kandi Alberts APRN, C.N.P. PCP - General 07/27/16 07/10/[address] [phone] documented as of this encounter
--- OUTSIDE RECORDS SUMMARY | 2021-12-09 13:23 | XMS_ITS | Encounter Summary ---
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 [address] [place] [phone] Referral ID Status Reason Start Date Expiration Date Visits Requ ested Visits Authorized [id number] Closed 01/07/2018 01/07/2019 1 1 SHAVER HELPER Outpatient (Routine) - Closed Specialty Diagnoses / Procedures Referred By Contact Refer red To Contact Orthopedic Surgery Bridger Caldwell M .D. [address] [address] Referral ID Status Reason Start Date Expiration Date Visits Requ ested Visits Authorized [id number] Closed 01/07/2018 01/07/2019 1 1 SHAVER HELPER Reason for Visit Auth/Cert Specialty Diagnoses / Procedures Referred By Contact Refer red To Contact Diagnoses Extruded Disc Lumbar Procedures NE LMNOTOMY W DCMPRN 1 SPACE LUMB Decompression Spine - Posterior Lumbar Referral ID Status Reason Start Date Expiration Date Visits Requ ested Visits Authorized [id number] 1 1 Encounter Details Date Type Department Care Team Description 01/07/2018 - Hospital Encounter [facility] Bibi, Pain Low Back Chronic (Primary Dx); 01/08/2018 [facility] M.D. Degeneration Disc Lumbar; [facility], [place] [address] Other Intervertebral Disc Displacement L umbar Region [facility] [place] [address] [address] [phone] [place], [place] (Work) [phone] Social History Tobacco Use [...] How often do you attend catholic or hoahaoism Never 01/31/2019 services? 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/2018 2:20 PM POLE SHAVER HELPER documented as of this encounter Last Filed Vital Signs Vital Sign Reading Time Taken Comments Blood Pressure 132/87 01/08/2018 8:00 AM POLE SHAVER HELPER Pulse 72 01/08/2018 8:36 AM POLE SHAVER HELPER Temperature 36.9 ??C (98.42 ??F) 01/08/2018 8:00 AM POLE SHAVER HELPER Respiratory Rate 16 01/08/2018 4:35 AM POLE SHAVER HELPER Oxygen Saturation 96% 01/08/2018 8:36 AM POLE SHAVER HELPER Inhaled Oxygen Concentration - - Weight 58 kg (127 lb 13.9 oz) 01/07/2018 6:00 AM POLE SHAVER HELPER Height 168 cm (5' 6.14) 01/07/2018 6:00 AM POLE SHAVER HELPER Body Mass Index 20.55 01/07/2018 6:00 AM POLE SHAVER HELPER documented in this encounter Discharge Summaries Billy Mercado M.D. - 01/07/2018 3:41 PM CST DISCHARGE SUMMARY BRIEF OVERVIEW Discharge Provider: Matthias Mtz M.D. Primary Care Providers: Kandi Alberts, TATY, C.N.PGordon (General) [address] [facility] [phone] Primary Care Provider Primary Care Provider Other [...] Case IDs Date Procedure Surgeon Location Status [id number] 01/07/18 L5-S1 microdiskectomy nerve root decompression. Matthias [...] were provided to the patient and caregiver(s). SHAVER HELPER documented in this encounter Medications at Time [...] you drowsy. documented as of this encounter Progress Notes [...] today with routine follow-up, patient is from [facility] and would like tofollow up for her wound check in [place] Activity: as tolerated, up with assistance Labs: [...] contact the service of Dr. Mtz at [phone] with any questions or concerns regarding management of this patient. SHAVER HELPER Matthias Mtz M.D. - 01/07/2018 8:21 AM [...] at length. This will be through the [facility] program. After this surgery we can feel [...] she has been moved to second case. SHAVER HELPER documented in this encounter H&P Notes Kavin Bailey M.D. - 01/07/2018 2:20 PM CST Post-op: No complication, Awake, not fully alert, Exam as preop with weakness in Left EHL SHAVER HELPER Bridger Caldwell M.D. - 01/07/2018 7:55 AM [...] to proceed with surgery. All questions answered. SHAVER HELPER documented in this encounter Consult Notes Roshni [...] ortho - spine Onset Date: 01/07/18 Payor: [facility] / Plan: [facility] CARE / Product Type: Medicaid HMO / [...] root decompression.; Surgeon: Matthias Mtz M.D.; Location: [facility] OR ??? 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 Outcome Measures -[facility] Inpatient Short Form: AM-[facility] Mobility: How much difficulty does the patient [...] Standardized Score: 61.14 Interpretation: Clinicians answer the -[facility] Inpatient Short Form based on observed patient [...] G-code Worksheet Functional Assessment Tool Used: PT [facility] Functional Limitation: Mobility: Walking and moving [...] CMS Modifier: CH Lisa Mcfarland P.T., Hima.PKeyona. SHAVER HELPER documented in this encounter Nursing Notes Jahaira [...] be discharge today. Will continue to monitor. SHAVER HELPER Salina Mercado R.N. - 01/07/2018 6:20 PM [...] Will continue to monitor as activity increases. SHAVER HELPER documented in this encounter OR Notes Op [...] generous decompression. We tried to use a Petal 4 to push through the outer margin [...] at length. This will be through the [facility] program. After this surgery we can feel [...] surgery was identified in accordance with the [facility] protocol. The patient wasthen taken to [...] and draped in usual sterile fashion. A [facility] pause was called. Procedural pause conducted [...] joint, preserving the capsule. I placed a Jeffers under the targeted facet joint. I obtained [...] implants in log * Matthias Mtz M.D. SHAVER HELPER Brief Op Note - Kavin Bailey M.D. [...] implants in log * Kavin Bailey M.D. SHAVER HELPER documented in this encounter Miscellaneous Notes Hospital Course - Billy Mercado M.D. - 01/07/2018 3:43 PM CST Status post lumbar posterior decompression, L5-S1 After informed consent was obtained, the patient was brought to the operating room and underwent theabove-stated procedure performed by Dr. Mtz. For further details, please see Dr. tMz's operative note. The patient was taken to [...] the patient was discharged from the hospital. SHAVER HELPER documented in this encounter Plan of Treatment [...] 01/08/2018 3:14 Resul ts for B AM POLE SHAVER HELPER this procedure are in the results section. CBC WITHOUT Routine 01/08/2018 3:14 Results for DIFFERENTIAL, B AM POLE SHAVER HELPER this procedu re are in the results section. C-REACTIVE PROTEIN Routine 01/08/2018 3:14 Result s for (CRP), S/P AM POLE SHAVER HELPER this procedure are in the results section. ADULT OXYGEN THERAPY Routine 01/07/2018 2:30 PM POLE SHAVER HELPER [place] FLUORO LESS THAN RAD - Routine 01/07/2018 2:15 Resu lts for 1 HOUR (most inpatients PM POLE SHAVER HELPER this proced ure and all are in the outpatients) results section. DECOMPRESSION SPINE 01/07/2018 Stenosis Spinal - POSTERIOR LUMBAR 11:40 AM POLE SHAVER HELPER Lumbar With Neurogenic Claudication documented in this encounter Results DX Lumbar Spine 2-3 Views (03/27/2018 1:40 PM POLE SHAVER HELPER) Anatomical Region Laterality Modality Lumbar Spine, Musculoskeletal RST LOS, Neuroradiology N/A Digital Radiography ARZ LOS, Muskuloskeletal FLA LOS Specimen (Source) Anatomical Collection Method Collection Time Re ceived Time Location / / Volume Laterality 03/27/2018 1:46 PM POLE SHAVER HELPER Impressions 03/27/2018 1:48 PM POLE SHAVER HELPER IMPRESSION: ??Partial L5-S1 laminectomy on the left. Narrowed lumbosacral interspace with facet arthritis. Mild de generative change left hip with some prominence at the femoral head/neck offs et. Narrative 03/27/2018 1:48 PM POLE SHAVER HELPER EXAM: ??DX LUMBAR SPINE 2-3 VIEWS Procedure [...] DURES CRP (C-Reactive Protein) (01/08/2018 3:14 AM POLE SHAVER HELPER) P athologist Signature C-Reactive 4.5 <=8.0 mg/L 01/08/2018 [facility] Protein (CRP), 4:44 AM POLE SHAVER HELPER LABORATORIES - S [facility] Specimen Anatomical Collection Method Collection Time Receive d Time (Source) Location / / Volume Laterality Blood (Blood, 01/08/2018 3:14 AM 01/09/20 18 4:08 Venous) POLE SHAVER HELPER AM POLE SHAVER HELPER Billy Mercado M.D. LAB BLOOD ADD-ON Performing Organization Address City/[facility] Phon e Number [facility] LABORATORIES - [address] [address] [facility] Sedimentation Rate (01/08/2018 3:14 AM POLE SHAVER HELPER) [facility] Method Time Signature Sedimentation 7 0 - 29 01/08/2018 [facility] Rate, B mm/1 h 5:14 AM POLE SHAVER HELPER LABORATORIES - [facility] Specimen Anatomical Collection Method Collection Time Receive d Time (Source) Location / / Volume Laterality Blood (Blood, 01/08/2018 3:14 AM 01/09/20 18 4:04 Venous) POLE SHAVER HELPER AM POLE SHAVER HELPER Billy Mercado M.D. LAB BLOOD ADD-ON Performing Organization Address City/State/[facility] Phon e Number [facility] LABORATORIES - [address] [address] [facility] (ABNORMAL) CBC without Differential (01/08/2018 3:14 AM POLE SHAVER HELPER) [facility] Method Time Signature Hemoglobin 11.8 11.6 - 01/08/2018 [facility] 15.0 g/dL 4:16 AM POLE SHAVER HELPER [facility] Hematocrit 35.7 35.5 - 01/08/2018 [facility] 44.9 % 4:16 AM POLE SHAVER HELPER [facility]ATOR[facility] Erythrocytes 4.07 3.92 - 01/08/2018 [facility] 5.13 4:16 AM POLE SHAVER HELPER LABORATORIES - x10(12)/L [facility] MCV 87.7 78.2 - 01/08/2018 [facility] 97.9 fL 4:16 AM POLE SHAVER HELPER LABORATORIES [facility] RBC Distrib 11.6 (L) 12.2 - 01/08/2018 [facility] Width 16.1 % 4:16 AM POLE SHAVER HELPER [facility] Platelet Count 226 157 - 371 01/08/2018 [facility] x10(9)/L 4:16 AM POLE SHAVER HELPER [facility]ATOR[facility] Leukocytes 14.6 (H) 3.4 - 9.6 01/08/2018 [facility] x10(9)/L 4:16 AM POLE SHAVER HELPER LABORATORIES - [facility] Specimen Anatomical Collection Method Collection Time Receive d Time (Source) Location / / Volume Laterality Blood (Blood, 01/08/2018 3:14 AM 01/09/20 18 4:08 Venous) POLE SHAVER HELPER AM POLE SHAVER HELPER Billy Mercado M.D. LAB BLOOD ADD-ON Performing Organization Address City/State/ZIP Code Phon e Number [facility] LABORATORIES - [address] [place], [place] [address] [facility] [place] Fluoro Less Than 1 Hour (01/07/2018 2:15 PM POLE SHAVER HELPER) Specimen (Source) Anatomical Location Collection Method / Collectio n Time Received Time / Laterality Volume Narrative 152 HOS LOS RST - 01/07/2018 2:15 PM POLE SHAVER HELPER This exam does not require a radiologist [...] tablet 1,000 mg Given 01/07/2018 7:14 AM POLE SHAVER HELPER 1,000 mg (TYLENOL) 1,000 mg, oral, Once, On Sun01/07/18 at 0615, For 1 dose, Pre-Op, In PreOp holding (PWA) acetaminophen tablet 1,000 mg (TYLENOL) Given 01/08/2018 8:06 AM POLE SHAVER HELPER 1,000 mg 1,000 mg, oral, 4 times daily, First dose on Sun01/07/18 at 1700, Not to exceed 4 grams in 24 hours. Given 01/07/2018 8:04 PM POLE SHAVER HELPER 1,000 mg Given 01/07/2018 5:42 PM POLE SHAVER HELPER 1,000 mg buPROPion 12 hr tablet 200 mg (WELLBUTRI N SR) Given 01/08/2018 8:05 AM POLE SHAVER HELPER 200 mg 200 mg, oral, Daily, First dose on Sun01/08/18 at 0900, Swallow whole. Do NOT crush, chew, or split tablet. ceFAZolin in dextrose (iso-os) IVPB 2 New Bag 01/08/2018 4:58 AM POLE SHAVER HELPER 2 g 200 mL/hr g (ANCEF) 2 g, intravenous, at 200 mL/hr, Administer over 30 Minutes, Every 8 hours, First dose on Sun01/07/18 at 2000, For 2 doses, Start within 8 hours of last IV dose. premix, Drug Monitoring Program: Pharmacist to adjust medication dosing based on indication and drug clearance factors., Indications: Prophylaxis, surgical New Bag 01/07/2018 7:34 PM POLE SHAVER HELPER 2 g 200 mL/hr fentaNYL injection 25 mcg (SUBLIMAZE) Given 01/07/2018 2:34 PM POLE SHAVER HELPER 25 mcg 25 mcg, intravenous, Every 2 min PRN, For pain 4 or greater (maximum 100 mcg). If max dose of Fentanyl is reached and if pain is greater than 4, discontinue Fentanyl: give Hydromorphone, Starting on Sun01/07/18 at 1429, PACU (only) gabapentin capsule 300 mg (NEURONTIN) Given 01/07/2018 7:14 AM POLE SHAVER HELPER 300 mg 300 mg, oral, Once, On Sun01/07/18 at 0615, For 1 dose, Pre-Op, preprocedure on unit with sips, Drug Monitoring Program: Pharmacist to adjust medication dosing based on indication and drug clearance factors. gabapentin capsule 300 mg (NEURONTIN) Given 01/07/2018 8:04 PM POLE SHAVER HELPER 300 mg 300 mg, oral, Daily at bedtime, First dose on Sun01/07/18 at 2100 ibuprofen tablet 600 mg (ADVIL,MOTRIN) 600 mg, oral, Every 6 hours, First dose on Sun 8 at 1600, Start 6 hours after last ketorolac dose administered ketorolac injection 15 mg (TORADOL) Given 01/08/2018 4:58 AM POLE SHAVER HELPER 15 mg 15 mg, intravenous, Every 6 hours, First dose on Sun01/07/18 at 1600, For 4 doses, Start no sooner than 6 hours after last intra-operative dose Adult IV push rate: Over 15 seconds. Peds IV push rate: Over 1 minute. 60 mg dose only for IM, not recommended for IV. Given 01/07/2018 10:47 PM POLE SHAVER HELPER 15 mg Given 01/07/2018 3:57 PM POLE SHAVER HELPER 15 mg lactated ringers New Bag 01/07/2018 3:34 PM POLE SHAVER HELPER 100 mL/hr 100 mL/hr 100 mL/hr, intravenous, Continuous, Starting on Sun01/07/18 at 1415, PACU & Post-Op oxyCODONE IR tablet 10 mg (ROXICODONE) Given 01/08/2018 12:22 AM POLE SHAVER HELPER 10 mg 10 mg, oral, Every 4 hours PRN, severe pain or score 7-10 of 10, or pain greater than comfort goal if other analgesics fail, Starting on Sun01/07/18 at 1532, Maximum dose of 10 mg in 4 hours. Given 01/07/2018 8:04 PM POLE SHAVER HELPER 10 mg oxyCODONE IR tablet 5 mg (ROXICODONE) Given 01/08/2018 8:06 AM POLE SHAVER HELPER 5 mg 5 mg, oral, Every 4 hours PRN, moderate pain or score 4-6 of 10, if other analgesics fail, Starting on Sun01/07/18 at 1532, Maximum dose of 10 mg in 4 hours sennosides-docusate sodium 8.6-50 mg per Given 01/07/2018 8:03 P M POLE SHAVER HELPER 1 tablet tablet 1 tablet (SENOKOT-S) 1 tablet, oral, 2 times daily, First dose on Sun01/07/18 at 2100, for constipation documented in this encounter Active and Recently Administered Medications Times are shown in POLE SHAVER HELPER. Scheduled Medication Order 01/06/2018 01/07/2018 01/08/2018 acetaminophen [...] 1230 (Given - Provider: Fransisco Wright APRN, PERSONNEL ANALYST, D.N.P.) 2,000 mg (rounded from 1,450 mg [...] ondansetron. fentaNYL injection 25 mcg (SUBLIMAZE) (CANCELED) 6234 (Given - Provider: Francoise Hoover, RGordonNGordon) 25 [...] (New Bag - Provider: Fransisco Wright APRN, PERSONNEL ANALYST, D.N.P.) 600 mg (rounded from 587 mg [...] documented as of this encounter Care Teams Solar Photovoltaic Designer Relationship Specialty Start Date End Date Kandi Alberts, TATY, C.N.P. PCP - General 07/27/16 07/10/[address] [phone] documented as of this encounter
--- OUTSIDE RECORDS SUMMARY | 2021-12-09 13:23 | XMS_ITS | Encounter Summary ---
:1985 Author Organization [facility] Address [address] [place] [address] Care Team Providers Name Role Phone Kandi Alberts APRN C.N.PGordon Primary Care Provider [phone] Reason for Referral MRI/CAT/PET Scan (Routine) - Closed Specialty Diagnoses / Procedures Referred By Contact Refer red To Contact Radiology Diagnoses Radiculopathy Lumbar Matthias Mtz M.D. 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 Degeneration Disc Lumbar; [place], [place] [address] Other Intervertebral Disc Displacement L umbar Region; [address] [place], [place] [address] [phone] Social History Tobacco Use Types Packs/Day Years [...] often do you attend latter day or congregation Never 01/31/2019 services? 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/2018 2:20 PM SPRAY PAINTER HELPER documented as of this encounter Progress Notes [...] and/or coordination of care as described above. Y PAINTER HELPER documented in this encounter Plan of Treatment Not on filedocumented as of this encounter Results MR Lumbar Spine without and with IV Contrast (01/23/2018 2:59 PM SPRAY PAINTER HELPER) Anatomical Region Laterality Modality Lumbar Spine, Neuroradiology RST [facility], Neuroradiology N/A Magnetic Resonance ARZ [facility], Neuroradiology FLA [facility] Specimen (Source) Anatomical Collection Method Collection Time Re ceived Time Location / / Volume Laterality 01/23/2018 5:46 PM SPRAY PAINTER HELPER Impressions 01/23/2018 6:00 PM SPRAY PAINTER HELPER IMPRESSION: 1. Interval left L5-S1 laminotomy. Enhan [...] protrusion at L4-5. Narrative 01/23/2018 6:00 PM SPRAY PAINTER HELPER EXAM: MR LUMBAR SPINE WITHOUT AND WITH [...] PROCEDURES CRP (C-Reactive Protein) (01/16/2018 1:27 PM SPRAY PAINTER HELPER) P athologist Signature C-Reactive <3.0 <=8.0 mg/L 01/16/2018 [facility] Protein (CRP), 2:40 PM SPRAY PAINTER HELPER LABORATORIES - S [facility] Specimen Anatomical Collection Method Collection Time Receive d Time (Source) Location / / Volume Laterality Blood (Blood, 01/16/2018 1:27 PM 01/17/20 18 1:49 Venous) SPRAY PAINTER HELPER PM SPRAY PAINTER HELPER Matthias Mtz M.D. LAB BLOOD ADD-ON Performing Organization Address City/State/ZIP Code Phon e Number [facility] LABORATORIES - [address] [facility] [address] [place], [place] [address] [facility] (ABNORMAL) CBC with Differential, Blood (01/16/2018 1:27 PM SPRAY PAINTER HELPER) Patholo gist Method Time Signature Hemoglobin 13.9 11.6 - 01/16/2018 [facility] 15.0 g/dL 1:57 PM SPRAY PAINTER HELPER LABORATORIES - [facility] Hematocrit 42.8 35.5 - 01/16/2018 [facility] 44.9 % 1:57 PM SPRAY PAINTER HELPER LABORATORIES - [facility] Erythrocytes 4.84 3.92 - 01/16/2018 [facility] 5.13 1:57 PM SPRAY PAINTER HELPER LABORATORIES - x10(12)/L [facility] MCV 88.4 78.2 - 01/16/2018 [facility] 97.9 fL 1:57 PM SPRAY PAINTER HELPER LABORATORIES [facility] RBC Distrib 11.8 (L) 12.2 - 01/16/2018 [facility] Width 16.1 % 1:57 PM SPRAY PAINTER HELPER LABORATORIES - [facility] Platelet Count 308 157 - 371 01/16/2018 [facility] x10(9)/L 1:57 PM SPRAY PAINTER HELPER LABORATORIES [facility] Leukocytes 11.7 (H) 3.4 - 9.6 01/16/2018 [facility] x10(9)/L 1:57 PM SPRAY PAINTER HELPER LABORATORIES - [facility] Neutrophils 7.59 (H) 1.56 - 01/16/2018 [facility] 6.45 1:57 PM SPRAY PAINTER HELPER LABORATORIES - x10(9)/L [facility] Lymphocytes 3.08 (H) 0.95 - 01/16/2018 [facility] 3.07 1:57 PM SPRAY PAINTER HELPER LABORATORIES - x10(9)/L [facility] Monocytes 0.81 0.26 - 01/16/2018 [facility] 0.81 1:57 PM SPRAY PAINTER HELPER LABORATORIES - x10(9)/L [facility] Eosinophils 0.12 0.03 - 01/16/2018 [facility] 0.48 1:57 PM SPRAY PAINTER HELPER LABORATORIES - x10(9)/L [facility] Basophils 0.05 0.01 - 01/16/2018 [facility] 0.08 1:57 PM SPRAY PAINTER HELPER LABORATORIES - x10(9)/L [facility] Specimen Anatomical Collection Method Collection Time Receive d Time (Source) Location / / Volume Laterality Blood (Blood, 01/16/2018 1:27 PM 01/17/20 18 1:49 Venous) SPRAY PAINTER HELPER PM SPRAY PAINTER HELPER Matthias Mtz M.D. LAB BLOOD ADD-ON Performing Organization Address City/[facility]/ZIP Code Phon e Number [facility] LABORATORIES - 200 [place], [place] [address] [facility] Sedimentation Rate (01/16/2018 1:26 PM SPRAY PAINTER HELPER) [facility] gist Method Time Signature Sedimentation 6 0 - 29 01/16/2018 [facility] Rate, B mm/1 h 3:48 PM SPRAY PAINTER HELPER LABORATORIES - [facility] Specimen Anatomical Collection Method Collection Time Receive d Time (Source) Location / / Volume Laterality Blood (Blood, 01/16/2018 1:26 PM 01/17/20 18 1:49 Venous) SPRAY PAINTER HELPER PM SPRAY PAINTER HELPER Matthias Mtz M.D. LAB BLOOD ADD-ON Performing Organization Address City/[facility] Phon e Number [facility] LABORATORIES - 200 [place] [phone] [facility] documented in this encounter Visit Diagnoses Diagnosis Pain Low Back Chronic Degeneration Disc Lumbar Other Intervertebral Disc Displacement L umbar Region Radiculopathy Lumbar Radiculopathy Lumbar documented in this encounter Additional Health Concerns Assessment Noted Time PHQ-9 Depression Total Score: 15 09/28/2017 3:51 PM CD T documented as of this encounter Care Teams Cementer Machine Joiner Relationship Specialty Start Date End Date Kandi Alberts, ENROLLER, C.N.P. PCP - General 07/27/16 07/10/[address] [address] documented as of this encounter
--- OUTSIDE RECORDS SUMMARY | 2021-12-09 13:23 | XMS_ITS | Encounter Summary ---
:1985 Author Organization [facility] Address [address] [place] [address] Care Team Providers Name Role Phone Kandi Alberts APRN C.NGordonPGordon Primary Care Provider Reason for Referral MRI/CAT/PET Scan (Routine) - Closed Specialty Diagnoses / Procedures Referred By Contact Refer red To Contact Radiology Diagnoses Radiculopathy Lumbar Matthias Mtz M.D. [place] [facility] Procedures MR Lumbar Spine without and with IV Contrast [place] MRI LUMB SPINE WO/W CNTRST HC MRI LUMB SPINE WO/W CNTRST [place] MRI LUMB SPINE WO/W CNTRST [address] [place] [address] Referral ID Status Reason Start Date Expiration Date Visits Requ ested Visits Authorized [id number] Closed 01/16/2018 01/16/2019 1 1 ITALITY SPECIALIST Reason for Visit MRI/CAT/PET Scan (Routine) - Closed Specialty Diagnoses / Procedures Referred By Contact Refer red To Contact Radiology Diagnoses Radiculopathy Lumbar Matthias Mtz M.D. [place] [facility] Procedures MR Lumbar Spine without and with IV Contrast [place] MRI LUMB SPINE WO/W CNTRST HC MRI LUMB SPINE WO/W CNTRST [place] MRI LUMB SPINE WO/W CNTRST [address] [place], [place] [address] Referral ID Status Reason Start Date Expiration Date Visits Requ ested Visits Authorized [id number] Closed 01/16/2018 01/16/2019 1 1 Encounter Details Date Type Department Care Team Description 01/23/2018 Hospital Encounter Department of Katy Mtzculo blanca Lumbar Radiology, Teresa Pillai, in [place], [facility] [address] [place], [place] [address] [facility] [address] [place], [place] [phone] [address] (Work) [phone] Social History Tobacco Use Types Packs/Day Years [...] How often do you attend yarsani or christian Never 01/31/2019 services? 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/2018 2:20 PM HOSPITALITY SPECIALIST documented as of this encounter Medications at [...] this WITHOUT AND WITH (most inpatients PM HOSPITALITY SPECIALIST procedu re are in IV CONTRAST and all the results outpatients) section. documented in this encounter Results MR Lumbar Spine without and with IV Contrast (01/23/2018 2:59 PM HOSPITALITY SPECIALIST) Anatomical Region Laterality Modality Lumbar Spine, Neuroradiology RST [facility], Neuroradiology N/A Magnetic Resonance ARZ [facility], Neuroradiology FLA [facility] Specimen (Source) Anatomical Collection Method Collection Time Re ceived Time Location / / Volume Laterality 01/23/2018 5:46 PM HOSPITALITY SPECIALIST Impressions 01/23/2018 6:00 PM HOSPITALITY SPECIALIST IMPRESSION: 1. Interval left L5-S1 laminotomy. Enhan [...] protrusion at L4-5. Narrative 01/23/2018 6:00 PM HOSPITALITY SPECIALIST EXAM: MR LUMBAR SPINE WITHOUT AND WITH [...] injection 0.5-15 mL Given 01/23/2018 2:49 PM HOSPITALITY SPECIALIST 6 mL (GADAVIST) 0.5-15 mL, intravenous, Once in imaging, contrast, Starting on Sun01/23/18 at 1318, For 1 dose, Imaging Protocol Orders, Dose per Radiant Medication Guidelines documented in this encounter Additional Health Concerns Assessment Noted Time PHQ-9 Depression Total Score: 15 09/28/2017 3:51 PM CD T documented as of this encounter Care Teams Manager Call Center Relationship Specialty Start Date End Date Kandi Alberts, TATY, C.N.P. PCP - General 07/27/16 07/10/[address] [address] documented as of this encounter
--- OUTSIDE RECORDS SUMMARY | 2021-12-09 13:23 | XMS_ITS | Encounter Summary ---
:1985 Author Organization [facility] Address [address] [place] [address] Care Team Providers Name Role Phone Kandi Alberts APRN C.N.P. Primary Care Provider [phone] Reason for Visit Auth/Cert Specialty Diagnoses / Procedures Referred By Contact Refer red To Contact Diagnoses Extruded Disc Lumbar Procedures WA LMNOTOMY W DCMPRN 1 SPACE LUMB Decompression Spine - Posterior Lumbar Referral ID Status Reason Start Date Expiration Date Visits Requ ested Visits Authorized [id number] 1 1 Encounter Details Date Type Department Care Team Description 01/07/2018 Anesthesia Event RST ROMB MAIN OR Denzel Richter, [address] [facility] [place] [address] [address] [facility] [phone] [place] [address] (Wo rk) Anesthesia Record Procedure Summary Procedure [...] Fransisco Wright, Manny Wright, (created via procedure JACQUARD CARD LACER, ZAK, D.N.P. JACQUARD CARD LACER, FACILITIES SPECIALIST, D.N.P. documentation); Mask Ventilation: Easy mask; Type: Standard ETT; Single Lumen Tube Size: 7 mm; Cuffed: Yes; Blade Size: De Anda 2; Location: Oral; Removal Date: 01/07/18; Removal Time: 1424 (RETIRED) Incision 01/07/18; 1215; Back; 01/07/18 1215 by 1418 by Posterior; STRP STRS Jahaira Tan, [facility] ic-Backgroun SKNCLSR NWVN 1/4X4 (x1), R.N. d, [...] How often do you attend hoahaoism or bahai Never 01/31/2019 services? Do you [...] Date Recorded Female 01/11/2018 2:20 PM LEAD MATERIAL HANDLER documented as of this encounter OR Notes Anesthesia Postprocedure Evaluation - Fransisco Wright APRN, FACILITIES SPECIALIST, D.N.P. - 01/07/2018 2:37 PM CST Patient: Wendi Odonnell Procedure Summary Date: 01/07/18 Room / Location: [address] / [facility] in [place], [place] Anesthesia Start: 1204 Anesthesia Stop: 1434 [...] Post Op nausea/vomiting: none Hydration status: euvolemic MATERIAL HANDLER Anesthesia Procedure Notes - Fransisco Wright APRN, [...] Procedure outcome: successful Airway event: no complications MATERIAL HANDLER Anesthesia Preprocedure Evaluation - Denzel Richter M.D. [...] patient / legal guardian, or through an court interpreter; patient evaluated and approved for anesthesia / sedation. Use of blood products discussed with patient who consented to blood products. MATERIAL HANDLER documented in this encounter Plan of Treatment Not on filedocumented as of this encounter Procedures Procedure Name Priority Date/Time Associated Comments Diagnosis LDA ANE ENDOTRACHEAL Routine 01/07/2018 12:36 Res ults for this AIRWAY PM LEAD MATERIAL HANDLER procedure are i n the results section. documented in this encounter Results LDA ANE ENDOTRACHEAL AIRWAY (01/07/2018 12:36 PM LEAD MATERIAL HANDLER) Narrative Fransisco Wright APRN, CRNA, D.N.P. - 12:36 PM LEAD MATERIAL HANDLER Fransisco Wright APRN, CRNA, D.N.P. ? 01/07/2018 [...] no complications Procedure Note Fransisco Wright, TATY, FACILITIES SPECIALIST, D.N.P. - 12:36 PM CST Airway Date/Time: [...] Site acetaminophen injection Given 01/07/2018 2:05 PM LEAD MATERIAL HANDLER 1,000 mg (OFIRMEV) Administer over 15 Minutes, As needed, Starting on Sun01/07/18 at 1405, Anesthesia Intra-op ceFAZolin injection 2,000 mg (ANCEF) Given 01/07/2018 12:30 PM LEAD MATERIAL HANDLER 2 g 2,000 mg (rounded from 1,450 [...] dexamethasone injection (DECADRON) Given 01/07/2018 12:25 PM LEAD MATERIAL HANDLER 4 mg As needed, Starting on Sun01/07/18 at 1225, Anesthesia Intra-op droperidol injection (INAPSINE) Given 01/07/2018 2:08 PM LEAD MATERIAL HANDLER 0.625 mg intravenous, As needed, nausea, vomiting, Starting on Sun01/07/18 at 1408, Anesthesia Intra-op fentaNYL injection (SUBLIMAZE) Given 01/07/2018 1:59 PM LEAD MATERIAL HANDLER 50 mcg intravenous, As needed, severe pain or score 7-10 of 10, Starting on Sun01/07/18 at 1212, Anesthesia Intra-op Given 01/07/2018 12:12 PM LEAD MATERIAL HANDLER 100 mcg ketorolac injection (TORADOL) Given 01/07/2018 2:12 PM LEAD MATERIAL HANDLER 15 mg As needed, moderate pain or score 4-6 of 10, Starting on Sun01/07/18 at 1412, Anesthesia Intra-op lactated ringers New Bag 01/07/2018 2:08 PM LEAD MATERIAL HANDLER intravenous, Continuous Infusion: Per Instructions PRN, Starting on Sun01/07/18 at 1208, Anesthesia Intra-op New Bag 01/07/2018 12:08 PM LEAD MATERIAL HANDLER lidocaine (PF) (cardiac) injection Given 01/07/2018 12:12 PM LEAD MATERIAL HANDLER 60 mg intravenous, As needed, Starting on Sun01/07/18 at 1212, Anesthesia Intra-op ondansetron (PF) injection (ZOFRAN) Given 01/07/2018 2:08 PM LEAD MATERIAL HANDLER 4 mg intravenous, As needed, nausea, vomiting, Starting on Sun01/07/18 at 1408, Anesthesia Intra-op phenylephrine 80 mcg/mL in Rate/Dose 01/07/2018 1:01 0.4 mcg/kg/min 17.4 mL/hr NaCl 0.9% 250 mL infusion Change PM LEAD MATERIAL HANDLER Continuous Infusion: Per Instructions PRN, Starting on Sun01/07/18 at 1258, Anesthesia Intra-op New Bag 01/07/2018 12:58 PM LEAD MATERIAL HANDLER 0.3 mcg/kg/min 13.1 mL/hr phenylephrine injection Given 01/07/2018 12:52 PM LEAD MATERIAL HANDLER 100 mcg intravenous, As needed, Starting on Sun01/07/18 at 1224, Anesthesia Intra-op Given 01/07/2018 12:34 PM LEAD MATERIAL HANDLER 150 mcg Given 01/07/2018 12:25 PM LEAD MATERIAL HANDLER 100 mcg propofol 10 mg/mL infusion Rate/Dose 01/07/2018 2:05 25 mcg/kg/min 8 .7 mL/hr (DIPRIVAN) Change PM LEAD MATERIAL HANDLER Continuous Infusion: Per Instructions PRN, Starting on Sun01/07/18 at 1215, Anesthesia Intra-op New Bag 01/07/2018 12:15 PM LEAD MATERIAL HANDLER 50 mcg/kg/min 17.4 mL/hr propofol injection (DIPRIVAN) Given 01/07/2018 12:13 PM LEAD MATERIAL HANDLER 200 mg intravenous, As needed, Starting on Sun01/07/18 at 1213, Anesthesia Intra-op rocuronium injection (ZEMURON) Given 01/07/2018 12:35 PM LEAD MATERIAL HANDLER 50 mg As needed, Starting on Sun01/07/18 at 1235, Anesthesia Intra-op succinylcholine-0.9% NaCl (PF) injection Given 01/07/2018 12:14 PM LEAD MATERIAL HANDLER 60 mg (ANECTINE) intravenous, As needed, Starting on Sun01/07/18 at 1214, Anesthesia Intra-op sugammadex injection (BRIDION) Given 01/07/2018 2:13 PM LEAD MATERIAL HANDLER 116 mg As needed, Starting on Sun01/07/18 at 1413, Anesthesia Intra-op tranexamic acid 600 mg in NaCl 0.9% IVPB New Bag 01/07/2018 12:23 PM LEAD MATERIAL HANDLER 660 mg 600 mg (rounded from 587 mg = 10 mg/kg ? 58.7 kg Order-specific weight), intravenous, at 168 mL/hr, Administer over 20 Minutes, Once in surgery, OR use only, Starting on Sun01/07/18 at 0739, For 1 dose, Intra-Op tranexamic acid 8 mg/mL in New Bag 01/07/2018 12:38 PM LEAD MATERIAL HANDLER 2 m g/kg/hr 14.7 mL/hr NaCl 0.9% [...] documented as of this encounter Care Teams Journalism Internship Relationship Specialty Start Date End Date Kandi Alberts, TATY, C.N.P. PCP - General 07/27/16 07/10/[address] [address] documented as of this encounter
--- OUTSIDE RECORDS SUMMARY | 2021-12-09 13:23 | XMS_ITS | Encounter Summary ---
:1985 Author Organization [facility] Address [address] [place] [address] Care Team Providers Name Role Phone Kandi Alberts APRN C.NGordonPGordon Primary Care Provider Encounter Details Date Type Department Care Team Description 01/25/2018 Documentation Department of Orthopedic Matthias Mtz[facility] [place] [address] [address] [facility] [address] [place] [address] [phone] (Wo rk) Social History Tobacco Use Types [...] How often do you attend druze or evangelical Never 01/31/2019 services? 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/2018 2:20 PM EDGE BLACKER documented as of this encounter Progress Notes [...] acute radiculitis/sciatica 3. Consider left S1 TF-RITA BLACKER documented in this encounter Plan of Treatment Not on filedocumented as of this encounter Visit Diagnoses Not on filedocumented in this encounter Additional Health Concerns Assessment Noted Time PHQ-9 Depression Total Score: 15 09/28/2017 3:51 PM CD T documented as of this encounter Care Teams Welder Shielded Metal Arc Relationship Specialty Start Date End Date Kandi Alberts, TATY, C.N.P. PCP - General 07/27/16 07/10/18 [address] [address] documented as of this encounter
--- OUTSIDE RECORDS SUMMARY | 2021-12-09 13:23 | XMS_ITS | Encounter Summary ---
:1985 Author Organization [facility] Address [address] [place] [address] Care Team Providers Name Role Phone Kandi Alberts APRN C.NGordonPGordon Primary Care Provider [phone] Encounter Details Date Type Department Care Team Description 11/28/2017 Hospital Encounter Department of Matthias Mtz Pain Back Lumbar Laboratory Medicine [facility] Higgins and Pathology, [place] [address] [place] [address] in [place], [place] [address] [place] [address] [place], [place] (Work) [address] [phone] Social History Tobacco Use Types Packs/Day Years [...] How often do you attend catholic or amish Never 01/31/2019 services? Do you [...] Recorded Female 01/11/2018 2:20 PM DIRECTOR OF OUTSIDE SALES documented as of this encounter Medications at [...] Staphylococcus aureus PCR (11/28/2017 11:28 AM CDT) [facility] Edfa3ly Method Time Signature Staphylococcus NARES 11/29/2017 [facility] aureus PCR BILATERAL 12:11 PM LABORATORIES - Specimen Source SWAB CDT [facility] Result Positive Not 11/29/2017 [facility] (A) Applicable 12:11 PM LABORATORIES - CDT [facility] Comment: ----ADDITIONAL INFORMATION---- This test was developed and its performa nce characteristics determined by [facility] in a manner consistent with CLIA requirements. This test has not been cleared or approved by the [place] L[place] d and Drug Administration. Specimen Anatomical Collection Method Collection Time Receive d Time (Source) Location / / Volume Laterality Varies (Nares) 11/28/2017 11:28 8 AM CDT 12:08 PM CDT Matthias Mtz M.D. LAB MICROBIOLOGY - GENERAL O RDERAAGUILA Performing Organization Address City/[facility] Code Phon e Number [facility] LABORATORIES - [address] [place] [address] 05 [facility] MRSA Culture (11/28/2017 11:26 AM CDT) [facility] Edfa3ly Method Time Signature MRSA Culture No growth 11/30/2017 [facility] of MRSA 2:29 PM CDT LABORATORIES - [facility] Specimen Anatomical Collection Method Collection Time Receive d Time (Source) Location / / Volume Laterality Nares 11/28/2017 11:26 11/29/2017 AM CDT 12:22 PM CDT Comment: Specimen Source Site: SWAB Matthias Mtz M.D. LAB MICROBIOLOGY - GENERAL O RDERAAGUILA Performing Organization Address City/[facility] Phon e Number [facility] LABORATORIES - [address] documented in this encounter Visit Diagnoses Diagnosis Pain Back Lumbar documented in this encounter Additional Health Concerns Assessment Noted Time PHQ-9 Depression Total Score: 15 09/28/2017 3:51 PM CD T documented as of this encounter Care Teams Kiln Firer Relationship Specialty Start Date End Date Kandi Alberts, TATY, C.N.P. PCP - General 07/27/16 07/10/[address] [address] documented as of this encounter
--- OUTSIDE RECORDS SUMMARY | 2021-12-09 13:23 | XMS_ITS | Encounter Summary ---
:[address] [facility] Address [address] [place] [address] Care Team Providers Name Role Phone Kandi Alberts APRN C.N.P. Primary Care Provider [phone] Encounter Details Date Type Department Care Team Description 01/15/2018 Documentation Department of Orthopedic Ginger Diaz, Surgery in [facility], [place] [address] [address] [facility] [address] [place] [address] [phone] (Wo rk) Social History Tobacco Use Types [...] How often do you attend baptist or shinto Never 01/31/2019 services? 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/2018 2:20 PM SOUND PERSON documented as of this encounter Progress Notes [...] follow-up visit tomorrow, 01/16/18, with Dr. Mtz. D PERSON documented in this encounter Plan of Treatment Not on filedocumented as of this encounter Visit Diagnoses Not on filedocumented in this encounter Additional Health Concerns Assessment Noted Time PHQ-9 Depression Total Score: 15 09/28/2017 3:51 PM CD T documented as of this encounter Care Teams Supervisor Television Chassis Repair Relationship Specialty Start Date End Date Kandi Alberts, TATY, C.N.P. PCP - General 07/27/16 07/10/18 [address] [address] documented as of this encounter
--- OUTSIDE RECORDS SUMMARY | 2021-12-09 13:23 | XMS_ITS | Encounter Summary ---
:1985 Author Organization [facility] Address [address] [place] [address] Care Team Providers Name Role Phone Kandi Alberts APRN C.N.PGordon Primary Care Provider [phone] Encounter Details Date Type Department Care Team Description 01/29/2018 Clinical Communication Hospital Outpatient Rola Diaz cruzito Procedure Center in Sonya Julian, CRR [place], [place] [address] [place] [address] [address] [place] [phone] Social History Tobacco Use Types Packs/Day Years [...] How often do you attend gnosticism or uatsdin Never 01/31/2019 services? 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 PCP - General 07/27/16 07/10/[address] [address] documented as of this encounter
--- OUTSIDE RECORDS SUMMARY | 2021-12-09 13:23 | XMS_ITS | Encounter Summary ---
:1985 Author Organization [facility] Address [address] [place] [address] Care Team Providers Name Role Phone Kandi Alberts APRN CGordonNGordonPGordon Primary Care Provider Reason for Referral Outpatient (Routine) - Closed Specialty Diagnoses / Procedures Referred By Contact Refer red To Contact Diagnoses Radiculopathy Lumbar Weakness Leg Left Marisa Zapata, [facility] Procedures [facility] P[facility] [address] [place], [place] [phone] Referral ID Status Reason Start Date Expiration Date Visits Requ ested Visits Authorized [id number] Closed 11/21/2017 11/21/2018 1 1 Reason for Visit Outpatient (Routine) - Closed Specialty Diagnoses / Procedures Referred By Contact Refer red To Contact Diagnoses Radiculopathy Lumbar Weakness Leg Left Marisa Zapata, [facility] Procedures [facility]G P.A.-C. [address] [place], [place] [address] Referral ID Status Reason Start Date Expiration Date Visits Requ ested Visits Authorized [id number] Closed 11/21/2017 11/21/2018 1 1 Encounter Details Date Type Department Care Team Description 11/28/2017 Hospital Encounter Department of Zapata, Radiculo blanca Lumbar; Neurology in Marisa Chan Weakness Leg Le ft Sweetie Tatum [place] [address] [facility] 200 [place] [address] [phone] Social History Tobacco Use Types Packs/Day Years [...] How often do you attend nondenominational or cheondoism Never 01/31/2019 services? 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/2018 2:20 PM HADOOP ANALYST documented as of this encounter Medications at [...] ? Final Report Study Number: 1 EMG Prune Washer: Benson Drew . 127 o r [phone] Referred by: MARISA AMATO (127 or [phone]) Referred for: low back and left leg [...] the interpretation. Liliam Jeffery/Mana Drew (127 or [phone])/ [facility] NERVE CONDUCTIONS ?Temperat ure: 30.2 ? [...] Final Repor t Study Number: 1 EMG Prune Washer: Benson Drew . 127 o r [phone] Referred by: MARISA AMATO (127 or [phone]) Referred for: low back and left leg [...] the interpretation. Liliam Jeffery/Mana Drew (127 or [phone])/ [facility] NERVE CONDUCTIONS Temperature: 30.2 ? ??C [...] documented as of this encounter Care Teams Liquid Center Assembler Relationship Specialty Start Date End Date Kandi Alberts APRN, C.N.P. PCP - General 07/27/16 07/10/[address] [address] documented as of this encounter
--- OUTSIDE RECORDS SUMMARY | 2021-12-09 13:23 | XMS_ITS | Encounter Summary ---
:1985 Author Organization [facility] Address [address] [place] [address] Care Team Providers Name Role Phone Kandi Alberts APRN C.N.PGordon Primary Care Provider [phone] Reason for Referral Outpatient (Routine) - Closed Specialty Diagnoses / Procedures Referred By Contact Refer july To Contact Pain Medicine Diagnoses [facility] [place] Lumbar Spine Transforaminal Epidural Injection Left GA INJ ANES FORAMEN EPI LUMB SNGL HC INJ ANES FORAMEN EPI LUMB SNGL GA INJ ANES FORAMEN EPI LUMB SNGL M.D. [address] [place] [phone] Referral ID Status Reason Start Date Expiration Date Visits Requ ested Visits Authorized [id number] Closed 03/27/2018 03/27/2019 1 1 NDARY SET UP MAN Reason for Visit Outpatient (Routine) - Closed Specialty Diagnoses / Procedures Referred By Contact Refer july To Contact Orthopedic Surgery Bridger Caldwell M .D. [facility] [address] [place] [address] Referral ID Status Reason Start Date Expiration Date Visits Requ ested Visits Authorized [id number] Closed 01/07/2018 01/07/2019 1 1 Encounter Details Date Type Department Care Team Description 03/27/2018 Office Visit Department of Bri Mtz Radijacksonlopat hy Lumbar Orthopedic Surgery fazal Higgins M.D. (Primary Dx) [place], [place] [address] [place] [address] [place] [phone] [phone] Social History Tobacco Use Types Packs/Day Years [...] How often do you attend jew or holiness Never 01/31/2019 services? Do you belong to any clubs or organizations such as 01/31/2019 jew groups, unions, fraternal or athletic [...] at Date Recorded Female 01/11/2018 2:20 PM SECONDARY SET UP MAN documented as of this encounter Progress Notes [...] and/or coordination of care as described above. NDARY SET UP MAN documented in this encounter Plan of Treatment Not on filedocumented as of this encounter Results FL LUMBAR SPINE TRANSFORAMINAL EPIDURAL INJECTION LEFT (04/17/2018 1:22 PM SECONDARY SET UP MAN) Specimen (Source) Anatomical Location Collection Method / Collectio n Time Received Time / Laterality Volume Narrative Donavan Pisano M.D. - 04/17/2018 1:10 PM SECONDARY SET UP MAN Donavan Psiano M.D. ? 04/17/2018 ??1:30 PM FL Lumbar [...] decision maker.: ??Consent for transfusion was obtained [place] protocol: ??All relevant documentation and testin g [...] as of this encounter Care Teams Senior Planner Relationship Specialty Start Date End Date Kandi Alberts, TATY, C.N.P. PCP - General 07/27/16 07/10/[address] [phone] documented as of this encounter
--- OUTSIDE RECORDS SUMMARY | 2021-12-09 13:23 | XMS_ITS | Encounter Summary ---
:1985 Author Organization [facility] Address [address] [place] [address] Care Team Providers Name Role Phone Kandi Alberts APRN C.N.P. Primary Care Provider [phone] Reason for Visit Auth/Cert Specialty Diagnoses / Procedures Referred By Contact Refer red To Contact Diagnoses Extruded Disc Lumbar Procedures [place] LMNOTOMY W DCMPRN 1 SPACE LUMB Decompression Spine - Posterior Lumbar Referral ID Status Reason Start Date Expiration Date Visits Requ ested Visits Authorized [id number] 1 1 Encounter Details Date Type Department Care Team Description 01/07/2018 Surgery RST ROMB MAIN OR Matthias Mtz L5-S1 microdiskectomy nerve [address] [facility] Olu Higgins root decompression. [place], [place] [address] [facility] [address] [place], [place] [phone] Social History Tobacco Use Types Packs/Day Years [...] How often do you attend druze or hoahaoism Never 01/31/2019 services? 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/2018 2:20 PM CLEAN OUT DRILLER HELPER documented as of this encounter Last Filed Vital Signs Vital Sign Reading Time Taken Comments Blood Pressure 97/55 01/07/2018 5:00 PM CLEAN OUT DRILLER HELPER Pulse 74 01/07/2018 5:30 PM CLEAN OUT DRILLER HELPER Temperature 36.6 ??C (97.88 ??F) 01/07/2018 3:30 PM CLEAN OUT DRILLER HELPER Respiratory Rate 14 01/07/2018 3:30 PM CLEAN OUT DRILLER HELPER Oxygen Saturation 98% 01/07/2018 5:30 PM CLEAN OUT DRILLER HELPER Inhaled Oxygen Concentration - - Weight 58 kg (127 lb 13.9 oz) 01/07/2018 6:00 AM CLEAN OUT DRILLER HELPER Height 168 cm (5' 6.14) 01/07/2018 6:00 AM CLEAN OUT DRILLER HELPER Body Mass Index 20.55 01/07/2018 6:00 AM CLEAN OUT DRILLER HELPER documented in this encounter Discharge Summaries Billy Mercado M.D. - 01/07/2018 3:41 PM CST DISCHARGE SUMMARY BRIEF OVERVIEW Discharge Provider: Matthias Mtz M.D. Primary Care Providers: Kandi Alberts, TATY, C.N.P. (General) [address] [address] Primary Care Provider Primary Care Provider Other [...] Case IDs Date Procedure Surgeon Location Status [id number] 01/07/18 L5-S1 microdiskectomy nerve root decompression. Matthias [...] were provided to the patient and caregiver(s). N OUT DRILLER HELPER documented in this encounter Medications at [...] today with routine follow-up, patient is from [facility] and would like tofollow up for her wound check in [place] Activity: as tolerated, up with assistance Labs: [...] contact the service of Dr. Mtz at [phone] with any questions or concerns regarding management of this patient. N OUT DRILLER HELPER Matthias Mtz M.D. - 01/07/2018 8:21 [...] at length. This will be through the [facility] program. After this surgery we can [...] she has been moved to second case. N OUT DRILLER HELPER documented in this encounter H&P Notes Kavin Bailey M.D. - 01/07/2018 2:20 PM CST Post-op: No complication, Awake, not fully alert, Exam as preop with weakness in Left EHL N OUT DRILLER HELPER Bridger Caldwell M.D. - 01/07/2018 7:55 [...] to proceed with surgery. All questions answered. 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 N OUT DRILLER HELPER documented in this encounter Nursing Notes [...] be discharge today. Will continue to monitor. N OUT DRILLER HELPER Salina Mercado R.N. - 01/07/2018 6:20 [...] Will continue to monitor as activity increases. N OUT DRILLER HELPER documented in this encounter OR Notes [...] generous decompression. We tried to use a [place] 4 to push through the outer margin [...] at length. This will be through the [facility] program. After this surgery we can [...] surgery was identified in accordance with the [facility] protocol. The patient wasthen taken to the [...] and draped in usual sterile fashion. A [facility] pause was called. Procedural pause conducted to [...] joint, preserving the capsule. I placed a [place]in under the targeted facet joint. I obtained [...] implants in log * Matthias Mtz M.D. N OUT DRILLER HELPER Brief Op Note - Kavin Bailey [...] implants in log * Kavin Bailey M.D. N OUT DRILLER HELPER documented in this encounter Miscellaneous Notes [...] the patient was discharged from the hospital. N OUT DRILLER HELPER documented in this encounter Plan of [...] 01/08/2018 3:14 Resul ts for B AM CLEAN OUT DRILLER HELPER this procedure are in the results section. CBC WITHOUT Routine 01/08/2018 3:14 Results for DIFFERENTIAL, B AM CLEAN OUT DRILLER HELPER this procedu re are in the results section. C-REACTIVE PROTEIN Routine 01/08/2018 3:14 Result s for (CRP), S/P AM CLEAN OUT DRILLER HELPER this procedure are in the results section. ADULT OXYGEN THERAPY Routine 01/07/2018 2:30 PM CLEAN OUT DRILLER HELPER FL FLUORO LESS THAN RAD - Routine 01/07/2018 2:15 Resu lts for 1 HOUR (most inpatients PM CLEAN OUT DRILLER HELPER this proced ure and all are in the outpatients) results section. DECOMPRESSION SPINE 01/07/2018 Stenosis Spinal - POSTERIOR LUMBAR 11:40 AM CLEAN OUT DRILLER HELPER Lumbar With Neurogenic Claudication documented in this encounter Results DX Lumbar Spine 2-3 Views (03/27/2018 1:40 PM CLEAN OUT DRILLER HELPER) Anatomical Region Laterality Modality Lumbar Spine, Musculoskeletal RST LOS, Neuroradiology N/A Digital Radiography ARZ LOS, Muskuloskeletal FLA LOS Specimen (Source) Anatomical Collection Method Collection Time Re ceived Time Location / / Volume Laterality 03/27/2018 1:46 PM CLEAN OUT DRILLER HELPER Impressions 03/27/2018 1:48 PM CLEAN OUT DRILLER HELPER IMPRESSION: ??Partial L5-S1 laminectomy on the left. Narrowed lumbosacral interspace with facet arthritis. Mild de generative change left hip with some prominence at the femoral head/neck offs et. Narrative 03/27/2018 1:48 PM CLEAN OUT DRILLER HELPER EXAM: ??DX LUMBAR SPINE 2-3 VIEWS [...] LIZ CRP (C-Reactive Protein) (01/08/2018 3:14 AM CLEAN OUT DRILLER HELPER) P athologist Signature C-Reactive 4.5 <=8.0 mg/L 01/08/2018 [facility] Protein (CRP), 4:44 AM CLEAN OUT DRILLER HELPER [facility] Specimen Anatomical Collection Method Collection Time Receive d Time (Source) Location / / Volume Laterality Blood (Blood, 01/08/2018 3:14 AM 01/09/20 18 4:08 Venous) CLEAN OUT DRILLER HELPER AM CLEAN OUT DRILLER HELPER Billy Mercado M.D. LAB BLOOD ADD-ON Performing Organization Address City/State/ZIP Code Phon e Number [facility] - [address] [place], [place] [address] [facility] Sedimentation Rate (01/08/2018 3:14 AM CLEAN OUT DRILLER HELPER) Patholo gist Method Time Signature Sedimentation 7 0 - 29 01/08/2018 [facility] Rate, B mm/1 h 5:14 AM CLEAN OUT DRILLER HELPER [facility] Specimen Anatomical Collection Method Collection Time Receive d Time (Source) Location / / Volume Laterality Blood (Blood, 01/08/2018 3:14 AM 01/09/20 18 4:04 Venous) CLEAN OUT DRILLER HELPER AM CLEAN OUT DRILLER HELPER Billy Mercado M.D. LAB BLOOD ADD-ON Performing Organization Address [facility] Phon e Number [facility] - [address] [place] [address] [facility] (ABNORMAL) CBC without Differential (01/08/2018 3:14 AM CLEAN OUT DRILLER HELPER) [facility] gist Method Time Signature Hemoglobin 11.8 11.6 - 01/08/2018 [facility] 15.0 g/dL 4:16 AM [facility] Hematocrit 35.7 35.5 - 01/08/2018 [facility] 44.9 % 4:16 AM [facility] Erythrocytes 4.07 3.92 - 01/08/2018 [facility] 5.13 4:16 AM CLEAN OUT DRILLER HELPER LABORATORIES - x10(12)/L [facility] MCV 87.7 78.2 - 01/08/2018 [facility] 97.9 fL 4:16 AM [facility] RBC Distrib 11.6 (L) 12.2 - 01/08/2018 [facility] Width 16.1 % 4:16 AM [facility] Platelet Count 226 157 - 371 01/08/2018 [facility] x10(9)/L 4:16 AM [facility] Leukocytes 14.6 (H) 3.4 - 9.6 01/08/2018 [facility] x10(9)/L 4:16 AM [facility] Specimen Anatomical Collection Method Collection Time Receive d Time (Source) Location / / Volume Laterality Blood (Blood, 01/08/2018 3:14 AM 01/09/20 18 4:08 Venous) CLEAN OUT DRILLER HELPER AM CLEAN OUT DRILLER HELPER Billy Mercado M.D. LAB BLOOD ADD-ON Performing Organization Address City/[facility] Code Phon e Number [facility] - [address] [place] [address] [facility] [place] Fluoro Less Than 1 Hour (01/07/2018 2:15 PM CLEAN OUT DRILLER HELPER) Specimen (Source) Anatomical Location Collection Method / Collectio n Time Received Time / Laterality Volume Narrative 152 HOS LOS RST - 01/07/2018 2:15 PM CLEAN OUT DRILLER HELPER This exam does not require a radiologist review or interpretation. Please refer to the patient's medical record on this date for clinical details. Billy Mercado M.D. IMG FLUOROSCOPY PROCEDURES Performing Organization Address City/[facility] Phon e Number 152 HOS LOS RST [...] tablet 1,000 mg Given 01/07/2018 7:14 AM CLEAN OUT DRILLER HELPER 1,000 mg (TYLENOL) 1,000 mg, oral, Once, On Sun01/07/18 at 0615, For 1 dose, Pre-Op, In PreOp holding (PWA) acetaminophen tablet 1,000 mg (TYLENOL) Given 01/08/2018 8:06 AM CLEAN OUT DRILLER HELPER 1,000 mg 1,000 mg, oral, 4 times daily, First dose on Sun01/07/18 at 1700, Not to exceed 4 grams in 24 hours. Given 01/07/2018 8:04 PM CLEAN OUT DRILLER HELPER 1,000 mg Given 01/07/2018 5:42 PM CLEAN OUT DRILLER HELPER 1,000 mg bupivacaine liposome (PF) 266 mg/20 mL Given 01/07/2018 2:04 PM CLEAN OUT DRILLER HELPER 20 mL Back (13.3 mg/mL) injection 20 mL (EXPAREL) 20 mL, infiltration, Once in surgery, OR use only, Starting on Sun01/07/18 at 0739, For 1 dose, Intra-Op buPROPion 12 hr tablet 200 mg (WELLBUTRI N SR) Given 01/08/2018 8:05 AM CLEAN OUT DRILLER HELPER 200 mg 200 mg, oral, Daily, First dose on Sun01/08/18 at 0900, Swallow whole. Do NOT crush, chew, or split tablet. ceFAZolin in dextrose (iso-os) IVPB 2 New Bag 01/08/2018 4:58 AM CLEAN OUT DRILLER HELPER 2 g 200 mL/hr g (ANCEF) 2 g, intravenous, at 200 mL/hr, Administer over 30 Minutes, Every 8 hours, First dose on Sun01/07/18 at 2000, For 2 doses, Start within 8 hours of last IV dose. premix, Drug Monitoring Program: Pharmacist to adjust medication dosing based on indication and drug clearance factors., Indications: Prophylaxis, surgical New Bag 01/07/2018 7:34 PM CLEAN OUT DRILLER HELPER 2 g 200 mL/hr fentaNYL injection 25 mcg (SUBLIMAZE) Given 01/07/2018 2:34 PM CLEAN OUT DRILLER HELPER 25 mcg 25 mcg, intravenous, Every 2 min PRN, For pain 4 or greater (maximum 100 mcg). If max dose of Fentanyl is reached and if pain is greater than 4, discontinue Fentanyl: give Hydromorphone, Starting on Sun01/07/18 at 1429, PACU (only) gabapentin capsule 300 mg (NEURONTIN) Given 01/07/2018 7:14 AM CLEAN OUT DRILLER HELPER 300 mg 300 mg, oral, Once, On Sun01/07/18 at 0615, For 1 dose, Pre-Op, preprocedure on unit with sips, Drug Monitoring Program: Pharmacist to adjust medication dosing based on indication and drug clearance factors. gabapentin capsule 300 mg (NEURONTIN) Given 01/07/2018 8:04 PM CLEAN OUT DRILLER HELPER 300 mg 300 mg, oral, Daily at bedtime, First dose on Sun01/07/18 at 2100 gelatin absorbable powder (GELFOAM) Given 01/07/2018 1:35 PM CLEAN OUT DRILLER HELPER 1 g Back As needed, Starting on Sun01/07/18 at 1335, Intra-Op ibuprofen tablet 600 mg (ADVIL,MOTRIN) 600 mg, oral, Every 6 hours, First dose on Sun 8 at 1600, Start 6 hours after last ketorolac dose administered ketorolac injection 15 mg (TORADOL) Given 01/08/2018 4:58 AM CLEAN OUT DRILLER HELPER 15 mg 15 mg, intravenous, Every 6 hours, First dose on Sun01/07/18 at 1600, For 4 doses, Start no sooner than 6 hours after last intra-operative dose Adult IV push rate: Over 15 seconds. Peds IV push rate: Over 1 minute. 60 mg dose only for IM, not recommended for IV. Given 01/07/2018 10:47 PM CLEAN OUT DRILLER HELPER 15 mg Given 01/07/2018 3:57 PM CLEAN OUT DRILLER HELPER 15 mg lactated ringers New Bag 01/07/2018 3:34 PM CLEAN OUT DRILLER HELPER 100 mL/hr 100 mL/hr 100 mL/hr, intravenous, Continuous, Starting on Sun01/07/18 at 1415, PACU & Post-Op methylPREDNISolone acetate injection Given 01/07/2018 1:55 PM CS T 40 mg Back (DEPO-Medrol) As needed, Starting on Sun01/07/18 at 1355, Intra-Op oxyCODONE IR tablet 10 mg (ROXICODONE) Given 01/08/2018 12:22 AM CLEAN OUT DRILLER HELPER 10 mg 10 mg, oral, Every 4 hours PRN, severe pain or score 7-10 of 10, or pain greater than comfort goal if other analgesics fail, Starting on Sun01/07/18 at 1532, Maximum dose of 10 mg in 4 hours. Given 01/07/2018 8:04 PM CLEAN OUT DRILLER HELPER 10 mg oxyCODONE IR tablet 5 mg (ROXICODONE) Given 01/08/2018 8:06 AM CLEAN OUT DRILLER HELPER 5 mg 5 mg, oral, Every 4 hours PRN, moderate pain or score 4-6 of 10, if other analgesics fail, Starting on Sun01/07/18 at 1532, Maximum dose of 10 mg in 4 hours povidone iodine 0.25% in NaCl 0.9% Given 01/07/2018 1:47 PM CLEAN OUT DRILLER HELPER 1,000 mL Back irrigation solution 1,000 mL 1,000 mL, irrigation, Once in surgery, OR use only, Starting on Sun01/07/18 at 0739, For 1 dose, Intra-Op sennosides-docusate sodium 8.6-50 mg per Given 01/07/2018 8:03 P M CLEAN OUT DRILLER HELPER 1 tablet tablet 1 tablet (SENOKOT-S) 1 tablet, oral, 2 times daily, First dose on Sun01/07/18 at 2100, for constipation vancomycin powder 1 g Given 01/07/2018 1:55 PM CLEAN OUT DRILLER HELPER 1 vial Back 1 g (1 vial), topical, Once in surgery, OR use only, Starting on Sun01/07/18 at 0739, For 1 dose, Intra-Op, Do not reconstitute documented in this encounter Active and Recently Administered Medications Times are shown in CLEAN OUT DRILLER HELPER. Scheduled Medication Order 01/06/2018 01/07/2018 01/08/2018 [...] 1230 (Given - Provider: Fransisco Wright APRN, PLATING TANK OPERATOR, D.N.P.) 2,000 mg (rounded from 1,450 mg [...] (New Bag - Provider: Fransisco Wright APRN, PLATING TANK OPERATOR, D.N.P.) 2 mg/kg/hr ? 58.7 kg Order-specific [...] (New Bag - Provider: Fransisco Wright APRN, PLATING TANK OPERATOR, D.N.P.) 600 mg (rounded from 587 mg [...] as of this encounter Care Teams Comb Capper Relationship Specialty Start Date End Date Kandi Alberts, TATY, C.N.P. PCP - General 07/27/16 07/10/[address] [phone] documented as of this encounter
--- OUTSIDE RECORDS SUMMARY | 2021-12-09 13:23 | XMS_ITS | Encounter Summary ---
:1985 Author Organization [facility] Address [address] [place] [address] Care Team Providers Name Role Phone Kandi Alberts APRN C.N.PGordon Primary Care Provider [phone] Encounter Details Date Type Department Care Team Description 01/16/2018 Hospital Encounter Department of [place], Radiculo blanca Lumbar Laboratory Medicine Matthias Higgins M.D . and Pathology, [address] [place] [address] in [place], [place] [address] [place] [address] [place], [place] (Work) [phone] Social History Tobacco Use Types Packs/Day Years [...] How often do you attend caodaism or christian Never 01/31/2019 services? 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/2018 2:20 PM OPERATING SYSTEM PROGRAMMER documented as of this encounter Medications at [...] Resu lts for this DIFFERENTIAL, B PM OPERATING SYSTEM PROGRAMMER procedure ar e in the results section. C-REACTIVE PROTEIN Routine 01/16/2018 1:27 Radiculopathy Lumba r Results for this (CRP), S/P PM OPERATING SYSTEM PROGRAMMER procedure are i n the results section. SEDIMENTATION RATE, B Routine 01/16/2018 1:26 Radiculopathy Kristin mbar Results for this PM OPERATING SYSTEM PROGRAMMER procedure are i n the results section. documented in this encounter Results CRP (C-Reactive Protein) (01/16/2018 1:27 PM OPERATING SYSTEM PROGRAMMER) P athologist Signature C-Reactive <3.0 <=8.0 mg/L 01/16/2018 [facility] Protein (CRP), 2:40 PM OPERATING SYSTEM PROGRAMMER LABORATORIES - S [facility] Specimen Anatomical Collection Method Collection Time Receive d Time (Source) Location / / Volume Laterality Blood (Blood, 01/16/2018 1:27 PM 01/17/20 18 1:49 Venous) OPERATING SYSTEM PROGRAMMER PM OPERATING SYSTEM PROGRAMMER Matthias Mtz M.D. LAB BLOOD ADD-ON Performing Organization Address City/State/ZIP Code Phon e Number [facility] LABORATORIES - 200 [place], [place] [address] [facility] (ABNORMAL) CBC with Differential, Blood (01/16/2018 1:27 PM OPERATING SYSTEM PROGRAMMER) [facility] gist Method Time Signature Hemoglobin 13.9 11.6 - 01/16/2018 [facility] 15.0 g/dL 1:57 PM OPERATING SYSTEM PROGRAMMER LABORATORIES - [facility] Hematocrit 42.8 35.5 - 01/16/2018 [facility] 44.9 % 1:57 PM OPERATING SYSTEM PROGRAMMER LABORATORIES - [facility] Erythrocytes 4.84 3.92 - 01/16/2018 [facility] 5.13 1:57 PM OPERATING SYSTEM PROGRAMMER LABORATORIES - x10(12)/L [facility] MCV 88.4 78.2 - 01/16/2018 [facility] 97.9 fL 1:57 PM OPERATING SYSTEM PROGRAMMER LABORATORIES - [facility] RBC Distrib 11.8 (L) 12.2 - 01/16/2018 [facility] Width 16.1 % 1:57 PM OPERATING SYSTEM PROGRAMMER LABORATORIES - [facility] Platelet Count 308 157 - 371 01/16/2018 [facility] x10(9)/L 1:57 PM OPERATING SYSTEM PROGRAMMER LABORATORIES - [facility] Leukocytes 11.7 (H) 3.4 - 9.6 01/16/2018 [facility] x10(9)/L 1:57 PM OPERATING SYSTEM PROGRAMMER LABORATORIES - [facility] Neutrophils 7.59 (H) 1.56 - 01/16/2018 [facility] 6.45 1:57 PM OPERATING SYSTEM PROGRAMMER LABORATORIES - x10(9)/L [facility] Lymphocytes 3.08 (H) 0.95 - 01/16/2018 [facility] 3.07 1:57 PM OPERATING SYSTEM PROGRAMMER LABORATORIES - x10(9)/L [facility] Monocytes 0.81 0.26 - 01/16/2018 [facility] 0.81 1:57 PM OPERATING SYSTEM PROGRAMMER LABORATORIES - x10(9)/L [facility] Eosinophils 0.12 0.03 - 01/16/2018 [facility] 0.48 1:57 PM OPERATING SYSTEM PROGRAMMER LABORATORIES - x10(9)/L [facility] Basophils 0.05 0.01 - 01/16/2018 [facility] 0.08 1:57 PM OPERATING SYSTEM PROGRAMMER LABORATORIES - x10(9)/L [facility] Specimen Anatomical Collection Method Collection Time Receive d Time (Source) Location / / Volume Laterality Blood (Blood, 01/16/2018 1:27 PM 01/17/20 18 1:49 Venous) OPERATING SYSTEM PROGRAMMER PM OPERATING SYSTEM PROGRAMMER Matthias Mtz M.D. LAB BLOOD ADD-ON Performing Organization Address City/[facility]/ZIP Code Phon e Number [facility] LABORATORIES - 200 [place], [place] [address] [facility] Sedimentation Rate (01/16/2018 1:26 PM OPERATING SYSTEM PROGRAMMER) [facility] gist Method Time Signature Sedimentation 6 0 - 29 01/16/2018 [facility] Rate, B mm/1 h 3:48 PM OPERATING SYSTEM PROGRAMMER LABORATORIES - [facility] Specimen Anatomical Collection Method Collection Time Receive d Time (Source) Location / / Volume Laterality Blood (Blood, 01/16/2018 1:26 PM 01/17/20 18 1:49 Venous) OPERATING SYSTEM PROGRAMMER PM OPERATING SYSTEM PROGRAMMER Matthias Mtz M.D. LAB BLOOD ADD-ON Performing Organization Address City/[facility] Code Phon e Number [facility] LABORATORIES - 200 [place], [place] [address] [facility] documented in this encounter Visit Diagnoses Diagnosis Radiculopathy Lumbar documented in this encounter Additional Health Concerns Assessment Noted Time PHQ-9 Depression Total Score: 15 09/28/2017 3:51 PM CD T documented as of this encounter Care Teams Area Counselor Relationship Specialty Start Date End Date Kandi Alberts, TATY, C.N.P. PCP - General 07/27/16 07/10/[address] [address] documented as of this encounter
--- OUTSIDE RECORDS SUMMARY | 2021-12-09 13:23 | XMS_ITS | Encounter Summary ---
:1985 Author Organization [facility] Address [address] [place] [address] Care Team Providers Name Role Phone Kandi Alberts APRN C.N.P. Primary Care Provider Encounter Details Date Type Department Care Team Description 01/30/2018 Orders Only Hospital Outpatient Ginger Diaz, Procedure Center in [place], [place] [address] [facility] [address] [place] [phone] [phone] (Wo rk) Social History Tobacco Use Types [...] 11/27/2019 relatives? How often do you attend mandaeism or mu-ism Never 01/31/2019 services? Do you belong to any clubs or organizations such as No 01/31/2019 mandaeism groups, unions, fraternal or athletic groups, or [...] at Date Recorded Female 01/11/2018 2:20 PM GREENSMAN documented as of this encounter Plan of Treatment Not on filedocumented as of this encounter Visit Diagnoses Not on filedocumented in this encounter Additional Health Concerns Assessment Noted Time PHQ-9 Depression Total Score: 15 09/28/2017 3:51 PM CD T documented as of this encounter Care Teams Collar Sewer Relationship Specialty Start Date End Date Kandi Alberts, TATY, C.N.P. PCP - General 07/27/16 07/10/[address] [address] documented as of this encounter
--- OUTSIDE RECORDS SUMMARY | 2021-12-09 13:23 | XMS_ITS | Encounter Summary ---
:1985 Author Organization [facility] Address [address] [place] [address] Care Team Providers Name Role Phone Kandi Alberts APRN, C.N.P. Primary Care Provider [phone] Encounter Details Date Type Department Care Team Description 03/27/2018 Hospital Encounter Department of Aster Correa Laboratory Laboratory Medicine TATY Romano, EVENT SALES REPRESENTATIVE, Results and Pathology, [facility] in [address] [place] [address] [place] [address] [place], [place] [phone] [address] (Work) [phone] Social History Tobacco Use Types Packs/Day Years [...] How often do you attend bahai or lutheran Never 01/31/2019 services? 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/2018 2:20 PM OUT AND OUT CIGAR MAKER HAND documented as of this encounter Medications [...] PM Abnormal Labo ratory Results for this OUT AND OUT CIGAR MAKER HAND Results procedure are i n the results section. CBC WITH DIFFERENTIAL, Routine 03/27/2018 1:16 PM Abnormal Lab oratory Results for this B OUT AND OUT CIGAR MAKER HAND Results procedure are i n the results section. C-REACTIVE PROTEIN Routine 03/27/2018 1:16 PM Abnormal Laborat ory Results for this (CRP), S/P OUT AND OUT CIGAR MAKER HAND Results procedure are i n the results section. documented in this encounter Results CRP (C-Reactive Protein) (03/27/2018 1:16 PM OUT AND OUT CIGAR MAKER HAND) P athologist Signature C-Reactive <3.0 <=8.0 mg/L 03/27/2018 [facility] Protein (CRP), 2:23 PM OUT AND OUT CIGAR MAKER HAND LABORATORIES - [facility] Specimen Anatomical Collection Method Collection Time Receive d Time (Source) Location / / Volume Laterality Blood (Blood, 03/27/2018 1:16 PM 03/27/19 19 1:38 Venous) OUT AND OUT CIGAR MAKER HAND PM OUT AND OUT CIGAR MAKER HAND DAVID Joseph APRN, M.S. LAB BLOOD ADD-ON Performing Organization Address City/[facility] Code Phon e Number [facility] LABORATORIES - [address] Sedimentation Rate (03/27/2018 1:16 PM OUT AND OUT CIGAR MAKER HAND) [facility] gist Method Time Signature Sedimentation 5 0 - 29 03/27/2018 [facility] Rate, B mm/1 h 3:59 PM OUT AND OUT CIGAR MAKER HAND LABORATORIES - [facility] Specimen Anatomical Collection Method Collection Time Receive d Time (Source) Location / / Volume Laterality Blood (Blood, 03/27/2018 1:16 PM 03/27/19 19 1:37 Venous) OUT AND OUT CIGAR MAKER HAND PM OUT AND OUT CIGAR MAKER HAND DAVID Joseph APRN, M.S. LAB BLOOD ADD-ON Performing Organization Address City/[facility] Phon e Number [facility]ORATORIES - 200 [place] [address] [facility] (ABNORMAL) CBC with Differential, Blood (03/27/2018 1:16 PM OUT AND OUT CIGAR MAKER HAND) [facility] gist Method Time Signature Hemoglobin 12.8 11.6 - 03/27/2018 [facility] 15.0 g/dL 1:46 PM OUT AND OUT CIGAR MAKER HAND LABORATORIES - [facility] Hematocrit 38.6 35.5 - 03/27/2018 [facility] 44.9 % 1:46 PM OUT AND OUT CIGAR MAKER HAND LABORATORIES - [facility] Erythrocytes 4.45 3.92 - 03/27/2018 [facility] 5.13 1:46 PM OUT AND OUT CIGAR MAKER HAND LABORATORIES - x10(12)/L [facility] MCV 86.7 78.2 - 03/27/2018 [facility] 97.9 fL 1:46 PM OUT AND OUT CIGAR MAKER HAND LABORATORIES - [facility] RBC Distrib 12.1 (L) 12.2 - 03/27/2018 [facility] Width 16.1 % 1:46 PM OUT AND OUT CIGAR MAKER HAND LABORATORIES - [facility] Platelet Count 222 157 - 371 03/27/2018 [facility] x10(9)/L 1:46 PM OUT AND OUT CIGAR MAKER HAND LABORATORIES - [facility] Leukocytes 6.6 3.4 - 9.6 03/27/2018 [facility] x10(9)/L 1:46 PM OUT AND OUT CIGAR MAKER HAND LABORATORIES - [facility] Neutrophils 4.16 1.56 - 03/27/2018 [facility] 6.45 1:46 PM OUT AND OUT CIGAR MAKER HAND LABORATORIES - x10(9)/L [facility] Lymphocytes 1.92 0.95 - 03/27/2018 [facility] 3.07 1:46 PM OUT AND OUT CIGAR MAKER HAND LABORATORIES - x10(9)/L [facility] Monocytes 0.39 0.26 - 03/27/2018 [facility] 0.81 1:46 PM OUT AND OUT CIGAR MAKER HAND LABORATORIES - x10(9)/L [facility] Eosinophils 0.08 0.03 - 03/27/2018 [facility] 0.48 1:46 PM OUT AND OUT CIGAR MAKER HAND LABORATORIES - x10(9)/L [facility] Basophils 0.03 0.01 - 03/27/2018 [facility] 0.08 1:46 PM OUT AND OUT CIGAR MAKER HAND LABORATORIES - x10(9)/L [facility] Specimen Anatomical Collection Method Collection Time Receive d Time (Source) Location / / Volume Laterality Blood (Blood, 03/27/2018 1:16 PM 03/27/19 19 1:37 Venous) OUT AND OUT CIGAR MAKER HAND PM OUT AND OUT CIGAR MAKER HAND Aster Correa APRN, EVENT SALES REPRESENTATIVE, M.S. LAB BLOOD ADD-ON Performing Organization Address City/State/ZIP Code Phon e Number [facility]IES - [address] [place] [phone] [facility] documented in this encounter Visit Diagnoses Diagnosis Abnormal Laboratory Results documented in this encounter Additional Health Concerns Assessment Noted Time PHQ-9 Depression Total Score: 15 09/28/2017 3:51 PM CD T documented as of this encounter Care Teams Urban Renewal Manager Relationship Specialty Start Date End Date Kandi Alberts APRN, C.N.P. PCP - General 07/27/16 07/10/[address] [address] documented as of this encounter
--- OUTSIDE RECORDS SUMMARY | 2021-12-09 13:23 | XMS_ITS | Encounter Summary ---
:1985 Author Organization [facility] Address [address] [place] [address] Care Team Providers Name Role Phone Kandi Alberts APRN C.N.PGordon Primary Care Provider [phone] Encounter Details Date Type Department Care Team Description 02/01/2018 Orders Only Hospital Outpatient Ginger Diaz Infect ion Postoperative Procedure Center in [place] Julian, CRR N Subsequent (Primary Dx) [place], [place] [address] [facility] [address] [place] [address] [phone] Social History Tobacco Use Types Packs/Day Years [...] How often do you attend catholic or episcopal Never 01/31/2019 services? 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/2018 2:20 PM INFERTILITY NURSE documented as of this encounter Plan of Treatment Not on filedocumented as of this encounter Visit Diagnoses Diagnosis Infection Postoperative Subsequent - Rere melba documented in this encounter Additional Health Concerns Assessment Noted Time PHQ-9 Depression Total Score: 15 09/28/2017 3:51 PM CD T documented as of this encounter Care Teams Spray Drier Relationship Specialty Start Date End Date Kandi Alberts, TATY, C.N.P. PCP - General 07/27/16 07/10/[address] [address] documented as of this encounter
--- OUTSIDE RECORDS SUMMARY | 2021-12-09 13:23 | XMS_ITS | Encounter Summary ---
:1985 Author Organization [facility] Address [address] [place] [address] Care Team Providers Name Role Phone Kandi Alberts APRN C.N.PGordon Primary Care Provider [phone] Encounter Details Date Type Department Care Team Description 03/27/2018 Hospital Encounter Department of Javi, Pain Low Back Chronic; Radiology, Olu Doll on Disc Lumbar; Building, in Other Intervert ebral Disc Displacement Lumbar Region [place], [place] [address] [place] [address] Social History Tobacco Use Types Packs/Day Years [...] How often do you attend temple or voodoo Never 01/31/2019 services? 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/2018 2:20 PM GAS DESULFURIZER documented as of this encounter Medications at [...] Results for 2-3 VIEWS (most inpatients PM GAS DESULFURIZER Degeneration Disc this p rocedure and all Lumbar are in the outpatients) Other Intervertebral results Disc Displacement section. Lumbar Region documented in this encounter Results DX Lumbar Spine 2-3 Views (03/27/2018 1:40 PM GAS DESULFURIZER) Anatomical Region Laterality Modality Lumbar Spine, Musculoskeletal RST LOS, Neuroradiology N/A Digital Radiography ARZ LOS, Muskuloskeletal FLA LOS Specimen (Source) Anatomical Collection Method Collection Time Re ceived Time Location / / Volume Laterality 03/27/2018 1:46 PM GAS DESULFURIZER Impressions 03/27/2018 1:48 PM GAS DESULFURIZER IMPRESSION: ??Partial L5-S1 laminectomy on the left. Narrowed lumbosacral interspace with facet arthritis. Mild de generative change left hip with some prominence at the femoral head/neck offs et. Narrative 03/27/2018 1:48 PM GAS DESULFURIZER EXAM: ??DX LUMBAR SPINE 2-3 VIEWS Procedure [...] documented as of this encounter Care Teams Compliance Review Specialist Relationship Specialty Start Date End Date Kandi Alberts, TATY, C.N.P. PCP - General 07/27/16 07/10/18 [address] [place] [address] documented as of this encounter
--- OUTSIDE RECORDS SUMMARY | 2021-12-09 13:23 | XMS_ITS | Encounter Summary ---
:1985 Author Organization [facility] Address [address] [place] [address] Care Team Providers Name Role Phone Kandi Alberts APRN C.NGordonPGordon Primary Care Provider [phone] Encounter Details Date Type Department Care Team Description 04/17/2018 Comprehensive Visit Division of Pain Rachel Yao Ra diculopathy Lumbar (Primary Dx); Medicine in J, PGordonARuizC., Pain Low Back C [facility] [address] [facility] [address] [place] [address] [phone] Social History Tobacco Use Types Packs/Day Years [...] How often do you attend shinto or cheondoism Never 01/31/2019 services? 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/2018 2:20 PM APPLICATION SUPPORT DEVELOPER documented as of this encounter Last Filed Vital Signs Vital Sign Reading Time Taken Comments Blood Pressure 128/81 04/17/2018 11:21 AM APPLICATION SUPPORT DEVELOPER Pulse 102 04/17/2018 11:21 AM APPLICATION SUPPORT DEVELOPER Temperature - - Respiratory Rate - - [...] Odonnell is a pleasant 32-year-old female from [facility] presents today with her boyfriend. She has [...] plan; patient expressed understanding of the content. ICATION SUPPORT DEVELOPER documented in this encounter Plan of Treatment Not on filedocumented as of this encounter Visit Diagnoses Diagnosis Radiculopathy Lumbar - Primary Pain Low Back Chronic documented in this encounter Additional Health Concerns Assessment Noted Time PHQ-9 Depression Total Score: 15 09/28/2017 3:51 PM CD T documented as of this encounter Care Teams Hot Mill Roller Relationship Specialty Start Date End Date Kandi Alberts, TATY, C.N.P. PCP - General 07/27/16 07/10/[address] [address] documented as of this encounter
--- OUTSIDE RECORDS SUMMARY | 2021-12-09 13:23 | XMS_ITS | Encounter Summary ---
:1985 Author Organization [facility] Address [address] [place] [address] Care Team Providers Name Role Phone Kandi Alberts APRN C.N.P. Primary Care Provider [phone] Encounter Details Date Type Department Care Team Description 02/26/2018 Orders Only Hospital Outpatient Ginger Diaz, Procedure Center in [place], [place] [address] [facility] [address] [place] [phone] [phone] (Wo rk) Social History Tobacco Use Types [...] How often do you attend cheondoism or samaritan Never 01/31/2019 services? 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/2018 2:20 PM MACHINE GRINDER documented as of this encounter Plan of Treatment Not on filedocumented as of this encounter Visit Diagnoses Not on filedocumented in this encounter Additional Health Concerns Assessment Noted Time PHQ-9 Depression Total Score: 15 09/28/2017 3:51 PM CD T documented as of this encounter Care Teams Trimmer Loader Relationship Specialty Start Date End Date Kandi Alberts, TATY, C.N.P. PCP - General 07/27/16 07/10/[address] [address] documented as of this encounter
--- OUTSIDE RECORDS SUMMARY | 2021-12-09 13:24 | XMS_ITS | Encounter Summary ---
:1985 Author Organization [facility] Address [address] [place] [address] Care Team Providers Name Role Phone Kandi Alberts APRN, C.N.P. Primary Care Provider [phone] Encounter Details Date Type Department Care Team [...] How often do you attend lutheran or bahai Never 01/31/2019 services? Do you [...] Date Recorded Female 01/11/2018 2:20 PM HOT PLATE PLYWOOD PRESS OPERATOR documented as of this encounter Plan of Treatment Not on filedocumented as of this encounter Visit Diagnoses Not on filedocumented in this encounter Additional Health Concerns Assessment Noted Time PHQ-9 Depression Total Score: 15 09/28/2017 3:51 PM CD T documented as of this encounter Care Teams Physical Therapy Aides Teacher Relationship Specialty Start Date End Date Kandi Alberts, TATY, C.N.P. PCP - General 07/27/16 07/10/18 [address], [place] [address] documented as of this encounter
--- OUTSIDE RECORDS SUMMARY | 2021-12-09 13:24 | XMS_ITS | Encounter Summary ---
:1985 Author Organization [facility] Address [address] [place] [address] Care Team Providers Name Role Phone Unavailable Primary Care Provider Unavailable Encounter Details Date Type Department Care Team Description 01/20/2015 Hospital Encounter HX [facility] Michelle Alberts, TATY, C.N.P. [address] [place] [address] (Wo rk) Social History Tobacco [...] How often do you attend voodoo or sabianist Never 01/31/2019 services? Do you [...] Date Recorded Female 01/11/2018 2:20 PM RETAIL LOSS PREVENTION INVESTIGATOR documented as of this encounter Last Filed Vital Signs Vital Sign Reading Time Taken Comments Blood Pressure 112/74 01/20/2015 2:27 PM RETAIL LOSS PREVENTION INVESTIGATOR Pulse 68 01/20/2015 2:27 PM RETAIL LOSS PREVENTION INVESTIGATOR Temperature - - Respiratory Rate 20 01/20/2015 2:27 PM RETAIL LOSS PREVENTION INVESTIGATOR Oxygen Saturation - - Inhaled Oxygen Concentration - - Weight 64.5 kg (142 lb 3.2 oz) 01/20/2015 2:27 PM RETAIL LOSS PREVENTION INVESTIGATOR Height 162 cm (5' 3.78) 01/20/2015 2:27 PM RETAIL LOSS PREVENTION INVESTIGATOR Body Mass Index 24.58 01/20/2015 2:27 PM RETAIL LOSS PREVENTION INVESTIGATOR documented in this encounter Progress Notes Michael [...] must include the following: Cholesterol, serum, total (25900) Lipoprotein, direct measurement, high density cholesterol (HDL cholesterol) (78011) Triglycerides (39915). (09/05/2007), section - at term (2007), D&C [...] Ordered: OV Est Pt Level 4 - 77049 - 25 min Pain Low Back (LBP) Chronic Stable on gabapentin. Continue PT. Ordered: OV Est Pt Level 4 - 29684 - 25 min Orders: venlafaxine, 150 mg = 1 cap(s), PO, Daily, do not crush or chew with food, # 30 cap(s), 11 Refill(s), Maintenance, Pharmacy: [id number], Does not need refill today. Return Visit [facility] 30 Min Electronically Signed By: MICHAEL ALBERTS CNP On: 01/20/2015 02:48 PM Source: [facility] Advise OnlyCHART Document Id: [id number] [place] LOSS PREVENTION INVESTIGATOR documented in this encounter Nursing Notes Michael [...] medications. Your doctor can tell you more. Mondamin If you have bipolar disorder, you may take a medication called lithium. This medication helps even out your mood. Possible side effects are weight gain, trembling, and nausea. If You Are Taking MAOIs, Avoid: Beans Aged cheese Chocolate Red wine Most cold medications Certain medications (ask your doctor) To Reduce the Risk of Mondamin Poisoning: Take only the prescribed amount of lithium. Drink plenty offluids other than coffee, tea, and soda. Limit salt in your diet. If You Have Side Effects The side effects of antidepressants are usually mild. But if you have troubling side effects, call your doctor. Changing the dosage or type of medication may help. Never stop taking medications on yourown. ?? [phone] [facility], [address] [place] [address], [place] [address]. All rights reserved. This information is not intended as a substitute for professional medical care. Always follow your healthcare professional's instructions. This document has images extracted. Please consider using [employer] for all your patient education needs. Source: [facility] POWERCHART Document Id: [id number] [place] LOSS PREVENTION INVESTIGATOR documented in this encounter Miscellaneous Notes Miscellaneous - Thais Yi L.P.N. - 01/20/2015 2:44 PM CST PHQ-9 PHQ-9 Entered On: 01/20/2015 14:44 RETAIL LOSS PREVENTION INVESTIGATOR Performed On: 01/20/2015 14:44 RETAIL LOSS PREVENTION INVESTIGATOR by THAIS YI LPN PHQ-9 Little interest [...] difficult THAIS YI LPN - 01/20/2015 14:44 RETAIL LOSS PREVENTION INVESTIGATOR Source: [facility] POWERCHART Document Id: [id number] RETAIL LOSS PREVENTION INVESTIGATOR!13 [place] LOSS PREVENTION INVESTIGATOR Miscellaneous - Michael Alberts APRN, C.N.P. - 01/20/2015 2:36 PM CST Ambulatory Patient Summary [address] [place], [place] [id number] Visit Information Name: WENDI ALEXANDER [facility] Number: [id number] Current Date: 01/20/2015 14:36:08 Physicians [...] food This is a CHANGE Routed to [address] [address] Stop Taking the Following Medications: Medication list [...] medications. Your doctor can tell you more. Mondamin If you have bipolar disorder, you may take a medication called lithium. This medication helps even out your mood. Possible side effects are weight gain, trembling, and nausea. If You Are Taking MAOIs, Avoid: Beans Aged cheese Chocolate Red wine Most cold medications Certain medications (ask your doctor) To Reduce the Risk of Mondamin Poisoning: Take only the prescribed amount of lithium. Drink plenty offluids other than coffee, tea, and soda. Limit salt in your diet. If You Have Side Effects The side effects of antidepressants are usually mild. But if you have troubling side effects, call your doctor. Changing the dosage or type of medication may help. Never stop taking medications on yourown. ?? [phone] [facility], [address] [place] [address]. All rights reserved. This information is not [...] if you dont have one. Go to [facility]/onlineservices and click on Create Your Account. Then, follow the directions to complete the online form. Youll be asked for your [facility] number which you can find at the top of this document. Your Goals/Additional instructions: This document has images extracted. Please consider using [employer] for all your patient education needs. Source: [facility] POWERCHART Document Id: [id number] [place] LOSS PREVENTION INVESTIGATOR Miscellaneous - Michael Alberts APRN, C.N.P. - 01/20/2015 2:36 PM CST Ambulatory Discharge Medication List [address] [id number] Visit Information Name: CATHERINEWENDI [facility] Number: [id number] Visit Date: 01/20/2015 14:36:07 Attending [...] food This is a [place] [address] Stop Taking the Following Medications: Medication list [...] of emergency. Electronically Signed By: MICHAEL ALBERTS TAX ECONOMIST Signed On:20-JAN-2015 14:35:37 Additional Information: Source: [facility] POWERCHART Document Id: [id number] [place] LOSS PREVENTION INVESTIGATOR Miscellaneous - Thais Yi L.PGordonN. - 01/20/2015 2:27 PM CST Adult Manager Industrial Intake/History Adult Manager Industrial Intake/History Entered On: 01/20/2015 14:29 RETAIL LOSS PREVENTION INVESTIGATOR Performed On: 01/20/2015 14:27 RETAIL LOSS PREVENTION INVESTIGATOR by THAIS YI LPN Intake Chief Complaint [...] 1.7 Body Mass Index : 24.58 kg/m2 ACLETHAIS Ortega MICK - 01/20/2015 14:27 RETAIL LOSS PREVENTION INVESTIGATOR General Info Information Given By : Patient Preferred Communication Mode : Verbal Languages : Chinese Is Patient Female and 13-50 no hysterectomy : Yes Status : Patient denies Are you ? : No KDTHAIS MICK - 01/20/2015 14:27 RETAIL LOSS PREVENTION INVESTIGATOR Subjective Pain Symptoms : Yes KDELDONTHAIS ANGELA LPN - 01/20/2015 14:27 RETAIL LOSS PREVENTION INVESTIGATOR Pain Scale Pain Scale Verbal 0-10 : Open THAIS YI MICK - 01/20/2015 14:27 RETAIL LOSS PREVENTION INVESTIGATOR Pain Pain Assessment Grid Pain 1 Location : Lower back Intensity : 10 Time Pattern : Constant LAMINEMAXIMINOTHAIS Ortega ANGELA BARTON - 01/20/2015 14:27 RETAIL LOSS PREVENTION INVESTIGATOR Dependent Habits Exposure to Tobacco Smoke : Other: Never Smoking Status : Never smoker Tobacco 2A : No KDELDONTHAISBERNARDINO MILLER LPN - 01/20/2015 14:27 RETAIL LOSS PREVENTION INVESTIGATOR Caffeine Use Grid Caffeine Use : Current Type : Energy drinks Frequency : Weekly Amount : 1 ELDON YIBERNARDINO MILLER LPN - 01/20/2015 14:27 RETAIL LOSS PREVENTION INVESTIGATOR Source: Everlater Document Id: [id number] RETAIL LOSS PREVENTION INVESTIGATOR!45 [place] LOSS PREVENTION INVESTIGATOR documented in this encounter Plan of Treatment Not on filedocumented as of this encounter Visit Diagnoses Not on filedocumented in this encounter Additional Health Concerns Assessment Noted Time PHQ-9 Depression Total Score: 19 01/20/2015 2:44 PM CS T documented as of this encounter
--- OUTSIDE RECORDS SUMMARY | 2021-12-09 13:24 | XMS_ITS | Encounter Summary ---
:1985 Author Organization [facility] Address [address] [place] [address] Care Team Providers Name Role Phone Kandi Alberts APRN C.N.P. Primary Care Provider [phone] Reason for Visit Reason Onset Date Comments Pre-visit Testing Orders 07/05/2017 Encounter Details Date Type Department Care Team Description 07/05/2017 Clinical Department of Prescheduling, Pre-visit Te sting Communication Spine in Provider Orders [place], [place] [address] [place] [address] Social History Tobacco Use Types Packs/Day Years [...] How often do you attend gnosticism or islam Never 01/31/2019 services? 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/2018 2:20 PM ELECTRIC MOTOR TESTER ASSEMBLER documented as of this encounter Miscellaneous [...] documented as of this encounter Care Teams Booky Relationship Specialty Start Date End Date Kandi Alberts, TATY, C.N.P. PCP - General 07/27/16 07/10/18 [address] [place] [address] documented as of this encounter
--- OUTSIDE RECORDS SUMMARY | 2021-12-09 13:24 | XMS_ITS | Encounter Summary ---
:1985 Author Organization [facility] Address [address] [place] [address] Care Team Providers Name Role Phone Unavailable Primary Care Provider Unavailable Encounter Details Date Type Department Care Team Description 12/25/2014 Hospital Encounter HX [facility] LAB Kandi Alberts A PRN, C.N.P. [address] [place], [place] [phone] (Wo rk) Social History [...] How often do you attend uatsdin or orthodoxy Never 01/31/2019 services? Do you [...] Date Recorded Female 01/11/2018 2:20 PM OIL TANKER CAPTAIN documented as of this encounter Last Filed Vital Signs Vital Sign Reading Time Taken Comments Blood Pressure - - Pulse - - Temperature - - Respiratory Rate - - Oxygen Saturation - - Inhaled Oxygen Concentration - - Weight - - Height 162 cm (5' 3.78) 12/25/2014 9:22 AM OIL TANKER CAPTAIN Body Mass Index - - documented in this encounter Plan of Treatment Not on filedocumented as of this encounter Procedures Procedure Name Priority Date/Time Associated Comments Diagnosis COMPREHENSIVE Routine 12/25/2014 10:12 Results fo r this METABOLIC PANEL, S/P AM OIL TANKER CAPTAIN procedu re are in the results section. documented in this encounter Results (ABNORMAL) CMP (Comprehensive Metabolic Panel) (12/25/2014 10:12 AM OIL TANKER CAPTAIN) [facility] gist Method Time Signature Alkaline 61 37 [...] POWERCHART GDL HXeGFR (MDRD) >60 >=60 POWERCHART [id number] 2 eGFR Black/ >60 >=60 POWERCHART Cuban [id number] 2 Specimen (Source) Anatomical Collection Method Collection Time Re ceived Time Location / / Volume Laterality Blood 12/25/2014 10:12 AM OIL TANKER CAPTAIN Kandi Alberts APRN, C.N.P. LAB BLOOD ADD-ON Performing Organization Address City/State/ZIP Code Phon e Number POWERCHART documented in this encounter Visit Diagnoses Not on filedocumented in this encounter Additional Health Concerns Assessment Noted Time PHQ-9 Depression Total Score: 18 12/24/2014 2:32 PM CS T documented as of this encounter
--- OUTSIDE RECORDS SUMMARY | 2021-12-09 13:24 | XMS_ITS | Encounter Summary ---
:1985 Author Organization [facility] Address [address] [place] [address] Care Team Providers Name Role Phone Kandi Alberts APRN C.N.P. Primary Care Provider [phone] Reason for Visit Reason Onset Date Comments Move appt on 11-28 to afternoon? 11/21/2017 Encounter Details Date Type Department Care Team Description 11/21/2017 Clinical Communication Department of Zeina Mtzt on 11-28 Orthopedic Surgery Matthias Higgins M.D. to afternoon? in [place], [address] [place] [address] [address] [facility] [address] [place], [place] [phone] [phone] (Work) [phone] Social History Tobacco Use Types Packs/Day Years [...] How often do you attend protestant or sabianist Never 01/31/2019 services? Do you [...] to pay for the very basics like Bin1 ATE hat hard 11/27/2019 food, housing, medical care, [...] at Date Recorded Female 01/11/2018 2:20 PM APPLICATIONS ARCHITECT documented as of this encounter Miscellaneous [...] documented as of this encounter Care Teams Inspector Scales Relationship Specialty Start Date End Date Kandi Alberts, TATY, C.N.P. PCP - General 07/27/16 07/10/18 [address] [place] [address] documented as of this encounter
--- OUTSIDE RECORDS SUMMARY | 2021-12-09 13:24 | XMS_ITS | Encounter Summary ---
:1985 Author Organization [facility] Address [address] [place] [address] Care Team Providers Name Role Phone Kandi Alberts APRN, C.N.P. Primary Care Provider [phone] Encounter Details Date Type Department Care Team Description 06/29/2017 Clinical Communication Department of [facility] Ni Alberts, Medicine, [place] TATY, C.N.P. [facility], [address] [place], [place] [address] [address] [place], [place] [phone] [address] (Work) [phone] Social History Tobacco Use Types Packs/Day Years [...] How often do you attend jewish or confucianist Never 01/31/2019 services? 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 - 06/29/2017 2:47 PM [address]T Spoke with Dr. Brush and rx is to take 4 tablets at once. Contacted [facility] pharmacy and spoke to pharmacistAzul. Telephone Encounter - Brittney Bird - 06/29/2017 1:10 PM CDT Richard from [facility] in [place] calls to clarify instructions for Zithromax. documented in this encounter Plan of Treatment Not on filedocumented as of this encounter Visit Diagnoses Not on filedocumented in this encounter Additional Health Concerns Assessment Noted Time PHQ-9 Depression Total Score: 9 06/29/2017 11:57 AM CD T documented as of this encounter Care Teams Stoker Erector And Servicer Relationship Specialty Start Date End Date Kandi Alberts, TREASURY ACCOUNTANT, C.N.P. PCP - General 07/27/16 07/10/18 [address], [place] [phone] documented as of this encounter
--- OUTSIDE RECORDS SUMMARY | 2021-12-09 13:24 | XMS_ITS | Encounter Summary ---
:1985 Author Organization [facility] Address [address] [place] [address] Care Team Providers Name Role Phone Kandi Alberts APRN, C.NGordonPGordon Primary Care Provider [phone] Reason for Referral Outpatient (Routine) - Closed Specialty Diagnoses / Procedures Referred By Contact Refer red To Contact Diagnoses [facility]opathy [facility]bar [facility] [address] [place], [place] [address] Referral ID Status Reason Start Date Expiration Date Visits Requ ested Visits Authorized [id number] Closed 11/21/2017 11/21/2018 1 1 MRI/CAT/PET Scan (Routine) - Closed Specialty Diagnoses / Procedures Referred By Contact Refer red To Contact Radiology Diagnoses [facility]bar [facility] MR Lumbar Spine without IV Contrast HI MRI LUMB SPINE WO CNTRST HC MRI LUMB SPINE WO CNTRST P.A.-C. [address] [place], [place] [address] Referral ID Status Reason Start Date Expiration Date Visits Requ ested Visits Authorized [id number] Closed 11/21/2017 11/21/2018 1 1 Reason for Visit Appointment Request (Routine) - Closed Specialty Diagnoses / Procedures Referred By Contact Refer red To Contact Spine Sarthak Anguiano M.D . [address] [place] [address] Referral ID Status Reason Start Date Expiration Date Visits Requ ested Visits Authorized [id number] Closed 07/05/2017 07/05/2018 2 1 Encounter Details Date Type Department Care Team Description 11/21/2017 Comprehensive Visit Department of Benny Radicul opathy Lumbar (Primary Dx); Neurologic Surgery [facility] Chan[facility] [address] [place] [phone] Social History Tobacco Use Types Packs/Day Years [...] How often do you attend yarsani or druze Never 01/31/2019 services? 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 [facility], [address] [place] [address] Chief Complaint: back and left leg pain History of Present Illness: Ms. Odonnell is a pleasant 32 y.o. female from [place], [place] who is seen in consultation regarding [...] warm baths. 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 She has also with a chiropractor. She [...] ? Final Report Study Number: 1 [facility] Residential Appraiser: Benson Drew . 127 o r [phone] Referred by: MARISA AMATO (127 or ( [phone]) Referred for: low back and left leg [...] the interpretation. Liliam Jeffery/Mana Drew (127 or [phone])/ [facility] NERVE CONDUCTIONS ?Temperat ure: 30.2 ? ??C [...] Final Repor t Study Number: 1 [facility] Residential Appraiser: Benson Drew . 127 o r [phone] Referred by: MARISA AMATO (127 or ( [phone]) Referred for: low back and left leg [...] the interpretation. Liliam Jeffery/Mana Drew (127 or [phone])/ [facility] NERVE CONDUCTIONS Temperature: 30.2 ? ??C [...] spine 03/01/2016. FINDINGS: Allowing for differences in survey field technician nique and patient position, no significant [...] spine 03/01/2016. FINDINGS: Allowing for differences in survey field technician nique and patient position, no significant [...] as of this encounter Care Teams Sample Supervisor Relationship Specialty Start Date End Date Kandi Alberts, TATY, C.N.P. PCP - General 07/27/16 07/10/[address] [address] documented as of this encounter
--- OUTSIDE RECORDS SUMMARY | 2021-12-09 13:24 | XMS_ITS | Encounter Summary ---
:1985 Author Organization [facility] Address [address] [place] [address] Care Team Providers Name Role Phone Kandi Alberts APRN C.NGordonPGordon Primary Care Provider [phone] Reason for Visit Reason Comments Abdominal Pain with nausea x 2 weeks Back Pain chronic getting worse Encounter Details Date Type Department Care Team Description 06/29/2017 Office Visit Department of Family Huang Pap Smear Examination (Primary Dx); Medicine, Marisel Mcgregor, Pain Pel naima Female Clinic, in [place] [address] [place] [phone] Social History Tobacco Use Types Packs/Day [...] How often do you attend presybeterian or presybeterian Never 01/31/2019 services? 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 The creation of this record is based on the scribe's personal observations and the provider's statements to them. This document has been josslein cked and approved by the attending provider. [...] 1:16 PM CDT) athologist Signature Negative 06/29/2017 [facility] Test, POCT, U 1:24 PM CDT [facility] LAB Specimen Anatomical Collection Method Collection Time Receive d Time (Source) Location / / Volume Laterality Urine (Urine, 06/29/2017 1:16 PM 06/30/19 18 1:16 Clean Catch) CDT PM CDT Marisel Ferrer M.D. LAB POCT ORDERABLES - DEVICE Performing Organization Address City/State/[facility] Code Phon e Number [facility]- [address] [place] [address] [facility]- [address] [place] [address] [place] [facility] Urinalysis with Microscopic if Indicated (06/29/2017 1:16 PM CDT) athologist Signature Source Midstream 06/29/2017 [facility] 1:20 PM CDT [facility] LAB Clarity Clear Clear 06/29/2017 [facility] 1:20 PM CDT [facility] Color Yellow 06/29/2017 [facility] 1:[address] [facility] LAB Comment: ----REFERENCE VALUE---- Colorless Yellow Wendi Blood Negative Negative 06/29/2017 1:20 PM CDT [facility] LA B Nitrite Negative Negative 06/29/2017 1:20 PM CDT [facility] [place] B Leukocyte Esterase Negative Negative 06/29/2017 1:20 PM CD T [facility] B Protein Negative mg/dL 06/29/2017 1:20 PM CDT [facility] [place] B Comment: ----REFERENCE VALUE---- Negative Trace Glucose Negative Negative mg/dL 06/29/2017 1:20 PM [facility] CDT SYSTEM- [place] LAB Ketones, QI(U) Negative Negative mg/dL 06/29/2017 1:20 PM [facility] [place] [facility] Bilirubin Negative Negative 06/29/2017 1:20 PM [facility] pH 6.5 5.0 - 8.0 06/29/2017 1:20 PM [facility] LAB Specific Bode 1.015 1.001 - 1.035 06/29/2017 1:20 PM [facility] LAB Urobilinogen 0.2 0.2 - 1.0 mg/dL 06/29/2017 1:20 PM [facility] [place] [facility] Specimen Anatomical Collection Method Collection Time Receive d Time (Source) Location / / Volume Laterality Urine (Urine, 06/29/2017 1:16 PM 06/30/19 1:16 Clean Catch) CDT PM CDT Marisel Ferrer M.D. LAB URINE ORDERABLES Performing Organization Address City/[facility]/ZIP Code Phon e Number [facility]- [address] [place] [address] [place] [facility]- [address] [place] [address] LAB Bacterial Culture, Aerobic + Susc, Urine (06/29/2017 1:16 PM CDT) [facility] gist Method Time Signature Bacterial No growth 06/30/2017 [facility] Culture, after 1 day 4:22 PM CDT [facility] Aerobic, Urine of SYSTEM- [facility] LAB Specimen Anatomical Collection Method Collection Time Receive d Time (Source) Location / / Volume Laterality Urine (Urine) 06/29/2017 1:16 PM 06/30/19 CDT 11:56 PM CDT Comment: Specimen Source Site: Urine Marisel Ferrer M.D. LAB MICROBIOLOGY - GEN ERAL ORDERABLES Performing Organization Address City/State/ZIP Code Phon e Number [facility] [address] [place] [address] LAB (ABNORMAL) Vaginitis Panel - [facility] (06/29/2017 1:15 PM CDT) [employer] Method Time Signature Nichol Negative Negative 06/29/2017 [facility] species, DNA 2:41 PM CDT [facility] LAB Gardnerella Positive (A) Negative 06/29/2017 [facility] vaginalis, DNA 2:41 PM CDT [facility] SYSTEM- [facility] LAB Trichomonas Negative Negative 06/29/2017 [facility] vaginalis, DNA 2:41 PM CDT [facility] SYSTEM- [facility] LAB Specimen Anatomical Collection Method Collection Time Receive d Time (Source) Location / / Volume Laterality Swab (Vagina) 06/29/2017 1:15 PM 06/30/19 18 1:28 CDT PM CDT Marisel Ferrer M.D. LAB MICROBIOLOGY - GEN ERAL ORDERABLES Performing Organization Address City/State/ZIP Code Phon e Number [facility]- [address] [place] [address] [facility] LAB [facility]- [address] [place] [address] LAB (ABNORMAL) Chlamydia / gonorrhoeae Amplified RNA (06/29/2017 1:15 PM CDT) [employer] Method Time Signature Source vaginal 07/02/2017 [facility] 11:18 AM CDT [facility] LAB Chlamydia Positive (A) Negative 07/02/2017 [facility] trachomatis 11:18 AM CDT [facility] RNA [facility] Comment: ----ADDITIONAL INFORMATION---- This report is intended for use in clini kehinde monitoring and management of patients. It is not in tended for use in medical-legal applications. Source VAGINA 07/02/2017 11:18 AM [place] [employer] CDT [facility] Neisseria gonorrhoeae Negative Negative 07/02/2017 11:18 A M [facility] [employer] amplified RNA CDT [facility] Comment: ----ADDITIONAL INFORMATION---- This report is intended for use in clini kehinde monitoring and management of patients. It is not in tended for use in medical-legal applications. Semi-Urgent This is a semi-urgent result ([place]) [facility] LAB Specimen Anatomical Collection Method Collection Time Receive d Time (Source) Location / / Volume Laterality Varies 06/29/2017 1:15 PM 8 (Cervix/Endocerv CDT 11:55 PM CD T ix) Marisel Ferrer M.D. LAB MICROBIOLOGY - GEN ERAL ORDERABLES Performing Organization Address City/State/ZIP Code Phon e Number [facility] [address] [place] [address] LAB ThinPrep Screen HPV Reflex (06/29/2017 1:13 PM CDT) Component Value Ref Test Analysis Performed Pathologis t Range Method Time At Signature 07/10/2017 [facility] 1:00 PM HEALTH CDT [facility] CYTOLOGY Report Tae Owusu MD 07/10/2017 [facility] electronically I verify that I have examined all relevant slides/ma terials 1:00 PM HEALTH signed by for the specimen(s) and rendered or confirmed the diagnosi s. CDT [facility] [place] CYTOLOG[facility] Gross Description Received specimen 07/10/2017 [facility] in a ThinPrep 1:00 PM HEALTH vial. CDT [facility] [place] [facility] Pap Test Source Cervical/Endocervi 07/10/2017 [facility] kehinde 1:00 PM HEALTH CDT [facility] [place] [facility] Clinical History having periods 07/10/2017 [facility] 1:00 PM HEALTH CDT [facility] [place] [facility] Menstrual lmp 06/17/2017 07/10/2017 [facility] Status(LMP, PM, 1:00 PM HEALTH ) CDT [facility] [place] [facility] Hormone control 07/10/2017 [facility] Therapy/Contracep 1:00 PM HEALTH tives CDT [facility] [place] [facility] Interpretation Cervical/Endocervical ??(ThinPrep): 07/10/2017 [facility] Satisfactory for Evaluation 1:00 PM HE ALTH [...] e Number [facility] [address] [place] [address] CYTOLOGY (ABNORMAL) CBC with Differential, Blood (06/29/2017 1:11 PM CDT) [facility] Method Time Signature Hemoglobin 11.7 11.6 - 06/29/2017 [facility] 15.0 g/dL 3:48 PM CDT [facility] [place] [facility] Hematocrit 35.3 (L) 35.5 - 06/29/2017 [facility] 44.9 % 3:48 PM CDT [facility] [place] [facility] Erythrocytes 3.99 3.92 - 06/29/2017 [facility] 5.13 3:48 PM CDT HEALTH x10(12)/L [facility] [place] [facility] MCV 88.5 78.2 - 06/29/2017 [facility] 97.9 fL 3:48 PM CDT [facility] [place] [facility] RBC Distrib Width 13.0 12.2 - 06/29/2017 [facility] 16.1 % 3:48 PM CDT [facility]- [place] LAB Platelet Count 175 157 - 371 06/29/2017 [facility] x10(9)/L 3:48 PM CDT [facility] [place] [facility] Leukocytes 5.5 3.4 - 9.6 06/29/2017 [facility] x10(9)/L 3:48 PM CDT [facility] [place] [facility] Neutrophils 2.93 1.56 - 06/29/2017 [facility] 6.45 3:53 PM CDT HEALTH x10(9)/L [facility] [place] [facility] Lymphocytes 1.98 0.95 - 06/29/2017 [facility] 3.07 3:53 PM CDT HEALTH x10(9)/L [facility] [place] [facility] Monocytes 0.51 0.26 - 06/29/2017 [facility] 0.81 3:53 PM CDT HEALTH x10(9)/L [facility]- [place] [facility] Eosinophils 0.01 (L) 0.03 - 06/29/2017 [facility] 0.48 3:53 PM CDT HEALTH x10(9)/L [facility] [place] [facility] Basophils 0.08 0.01 - 06/29/2017 [facility] 0.08 3:53 PM CDT HEALTH x10(9)/L [facility] [place] [facility] Specimen Anatomical Collection Method Collection Time Receive d Time (Source) Location / / Volume Laterality Blood 06/29/2017 1:11 PM 8 3:45 CDT PM CDT Marisel Ferrer M.D. LAB BLOOD ADD-ON Performing Organization Address City/State/ZIP Code Phon e Number [facility] [address] [place] [address] LAB documented in this encounter Visit Diagnoses [...] as of this encounter Care Teams Automatic Drilling Machine Operator Relationship Specialty Start Date End Date Kandi Alberts, TATY, C.N.P. PCP - General 07/27/16 07/10/182199 [place] [address] documented as of this encounter
--- OUTSIDE RECORDS SUMMARY | 2021-12-09 13:24 | XMS_ITS | Encounter Summary ---
:1985 Author Organization [facility] Address [address] [place] [address] Care Team Providers Name Role Phone Kandi Alberts APRN, C.N.P. Primary Care Provider [phone] Reason for Visit Reason Comments Abdominal Cramping cramping in lower right abdo min along with breast discomfort x 1 month Appointment Request (Routine) - Closed Specialty Diagnoses / Procedures Referred By Contact Refer red To Contact Family Medicine Referral ID Status Reason Start Date Expiration Date Visits Requ ested Visits Authorized [id number] Closed 09/25/2017 09/25/2018 1 Encounter Details Date Type Department Care Team Description 09/28/2017 Office Visit Department of Family Huang Pel naima And Perineal Medicine, Marisel Mcgregor, Pain (Pr imary Dx) Clinic, in [place] [address] [place] [phone] Social History Tobacco Use Types Packs/Day Years [...] How often do you attend mosque or taoism Never 01/31/2019 services? 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 She has also had some [...] [facility]rella [facility] documented in this encounter Plan of Treatment [...] PM CDT) P athologist Signature Negative 09/28/2017 ED [facility] Test, POCT, U 4:51 PM CDT [facility] LAB Specimen Anatomical Collection Method Collection Time Receive d Time (Source) Location / / Volume Laterality Urine (Urine, 09/28/2017 4:43 PM 09/29/19 18 4:43 Clean Catch) CDT PM CDT Marisel Ferrer M.D. LAB POCT ORDERABLES - DEVICE Performing Organization Address City/[facility]/ZIP Code Phon e Number [facility] [address] [place] [address] [place] [address] [place] [facility] [address] [place] [address] [place], [place] [address] [place] [facility] Chlamydia / gonorrhoeae Amplified RNA (09/28/2017 4:30 PM CDT) [employer] gist Method Time Signature Source VAGINA 10/01/2017 ED [facility] 1:38 PM CDT [facility] Chlamydia Negative Negative 10/01/2017 ED [facility] trachomatis 1:38 PM CDT [facility] RNA [facility] Comment: ----ADDITIONAL INFORMATION---- This report is intended for use in clini kehinde monitoring and management of patients. It is not in tended for use in medical-legal applications. Source vagina 10/01/2017 1:38 PM CDT [facility] Neisseria gonorrhoeae Negative Negative 10/01/2017 1:3 8 PM CDT [facility] amplified RNA [facility] LAB Comment: ----ADDITIONAL INFORMATION---- This report is [...] - GEN ERAL ORDERABLES Performing Organization Address City/[facility]/ZIP Code Phon e Number [facility] [address] [place] [address] LAB (ABNORMAL) Vaginitis Panel - [facility] (09/28/2017 4:30 PM CDT) [employer] Method Time Signature Nichol Negative Negative 09/28/2017 ED [facility] species, DNA 5:36 PM CDT [facility] [place] [facility] Gardnerella Positive (A) Negative 09/28/2017 ED [facility] vaginalis, DNA 5:36 PM CDT [facility]- [place] [facility] Trichomonas Negative Negative 09/28/2017 ED [facility] vaginalis, DNA 5:36 PM CDT [facility] [place] [facility] Specimen Anatomical Collection Method Collection Time Receive d Time (Source) Location / / Volume Laterality Swab (Vagina) 09/28/2017 4:30 PM 09/29/19 18 4:46 CDT PM CDT Marisel Ferrer M.D. LAB MICROBIOLOGY - GEN ERAL ORDERABLES Performing Organization Address City/State/ZIP Code Phon e Number [facility] [address] [place] [address] [place] [facility] [address] [place] [address] [place] [address] [place] [facility] documented in this encounter Visit Diagnoses Diagnosis Pelvic And Perineal Pain - Primary documented in this encounter Additional Health Concerns Assessment Noted Time PHQ-9 Depression Total Score: 15 09/28/2017 3:51 PM CD T documented as of this encounter Care Teams Sql Programmer Relationship Specialty Start Date End Date Kandi Alberts, TATY, C.N.P. PCP - General 07/27/16 07/10/18 [address] [place] [phone] documented as of this encounter
--- OUTSIDE RECORDS SUMMARY | 2021-12-09 13:24 | XMS_ITS | Encounter Summary ---
:1985 Author Organization [facility] Address [address] [place] [address] Care Team Providers Name Role Phone Kandi Alberts APRN, C.N.P. Primary Care Provider [phone] Encounter Details Date Type Department Care Team Description 06/27/2017 Nurse Triage Department of [facility] Pushpa Bragg, Medicine, [facility], R.N. in [place], [place] [address] [place] [address] Social History Tobacco Use Types Packs/Day Years [...] How often do you attend yazidism or catholic Never 01/31/2019 services? 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 PCP - General 07/27/16 07/10/18 [address], [place] [phone] documented as of this encounter
--- OUTSIDE RECORDS SUMMARY | 2021-12-09 13:24 | XMS_ITS | Encounter Summary ---
:1985 Author Organization [facility] Address [address] [place] [address] Care Team Providers Name Role Phone Kandi Alberts APRN C.NGordonPGordon Primary Care Provider [phone] Reason for Visit Reason Onset Date Comments Results 07/02/2017 Encounter Details Date Type Department Care Team Description 07/02/2017 Clinical Communication Department of [facility] Trudi Asya [facility] Medicine, [place], Clinic, in [place] [address] [place] [phone] Social History Tobacco Use Types Packs/Day Years [...] How often do you attend zoroastrian or hindu Never 01/31/2019 services? 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 [facility] will be [...] to give Dr. Hedrick an update,call her [phone]. documented in this encounter Plan of Treatment Not on filedocumented as of this encounter Visit Diagnoses Not on filedocumented in this encounter Additional Health Concerns Assessment Noted Time PHQ-9 Depression Total Score: 9 06/29/2017 11:57 AM CD T documented as of this encounter Care Teams Hospital Director Relationship Specialty Start Date End Date Kandi Alberts, TATY, C.N.P. PCP - General 07/27/16 07/10/[address] [phone] documented as of this encounter
--- OUTSIDE RECORDS SUMMARY | 2021-12-09 13:24 | XMS_ITS | Encounter Summary ---
:1985 Author Organization [facility] Address [address] [place] [address] Care Team Providers Name Role Phone Kandi Alberts APRN C.N.PGordon Primary Care Provider [phone] Reason for Visit Reason Comments Pain Appointment Request (Routine) - Closed Specialty Diagnoses / Procedures Referred By Contact Refer red To Contact Spine Sarthak Anguiano M.D . [address] [place] [address] Referral ID Status Reason Start Date Expiration Date Visits Requ ested Visits Authorized [id number] Closed 07/05/2017 07/05/2018 2 1 Encounter Details Date Type Department Care Team Description 11/28/2017 Comprehensive Visit Department of [facility] Lumbar Orthopedic Surgery Matthias Higgins M.D. (Primary Dx) in [address] [place] [phone] [place], [place] [phone] (Work) [phone] Social History Tobacco Use Types Packs/Day Years [...] How often do you attend pentecostal or episcopal Never 01/31/2019 services? 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/2018 2:20 PM HELP AID documented as of this encounter Consult Notes [...] At this point in time, her left [id number] radiating symptoms represent 50% of her overall [...] 2014, so this rupture event times to [phone]. This HNP???s mass effect has been stable since 2017. 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 The left S1 nerve root is contacted as it a traverses this area. This is not the largest herniation, nor the greatest degree of stenosis that I have seen. However, the patient has trialed a rather exhaustive nonoperative approach to therapy, to include daycare manager, physical therapy, personal training, diet, oral medication and 2 epidural steroid injections. The second RIAT exacerbated her symptoms, and therefore she is [...] of Systems obtained and recorded in the [facility] Medical Record have been reviewed. Spine Surgical Pertinent History: Body Habitus: There is no height or weight on file to calculate BMI. Normal (BMI 18.5 to <25) Bone Health: Unsure H/o Cancer: Denies. Mental Health Disease: Yes, Depression Anticoagulation use: None Past Medical History: Diagnosis Date ??? Alcoholism Personal History ([facility]) [phone] ??? Dependence Alcohol (HCC) ??? 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 All of her questions were answered to her satisfaction and she is comfortable with the plan. She knows to contact the clinic if any questions should arise. I personally spent over half of a total of at least 30 minutes face to face with the patient in counseling and discussion and/or coordination of care as described above. Matthias Mtz MD Automation Controls Specialist Spine Surgery Department of Orthopedic Surgery [facility] Assisted by: Ginger Mendoza Kindly CC the following care team colleagues: PCP: Kandi Alberts APRN, C.N.P. documented in this encounter Plan of Treatment Not on filedocumented as of this encounter Results (ABNORMAL) Staphylococcus aureus PCR (11/28/2017 11:28 AM CDT) [facility] gist Method Time Signature Staphylococcus NARES 11/29/2017 [facility] aureus PCR BILATERAL 12:11 PM LABORATORIES - Specimen Source SWAB CDT [facility] Result Positive Not 11/29/2017 [facility] (A) Applicable 12:11 PM LABORATORIES - CDT [facility] Comment: ----ADDITIONAL INFORMATION---- This test was developed and its performa nce characteristics determined by [facility] in a manner consistent with CLIA requirements. [...] City/State/ZIP Code Phon e Number [facility] LABORATORIES - [address] [place], [place] [address] [facility] documented in this encounter Visit Diagnoses Diagnosis Pain Back Lumbar - Primary documented in this encounter Additional Health Concerns Assessment Noted Time PHQ-9 Depression Total Score: 15 09/28/2017 3:51 PM CD T documented as of this encounter Care Teams Farm Facility Manager Relationship Specialty Start Date End Date Kandi Alberts, TATY, C.N.P. PCP - General 07/27/16 07/10/18 [address], [place] [address] documented as of this encounter
--- OUTSIDE RECORDS SUMMARY | 2021-12-09 13:24 | XMS_ITS | Encounter Summary ---
:1985 Author Organization [facility] Address [address] [place] [address] Care Team Providers Name Role Phone Kandi Alberts APRN, C.N.P. Primary Care Provider [phone] Encounter Details Date Type Department Care Team Description 07/03/2017 Clinical Communication Department of [facility] Ni Alberts, Medicine, [place] TATY, C.N.P. [facility], [place] [address] [place], [place] [address] [address] [place], [place] [phone] [address] (Work) [phone] Social History Tobacco Use Types Packs/Day Years [...] How often do you attend anglican or hinduism Never 01/31/2019 services? Do you [...] to pay for the very basics like [place] hat hard 11/27/2019 food, housing, medical care, [...] PM TELECOMMUNICATOR documented as of this encounter Plan of Treatment Not on filedocumented as of this encounter Visit Diagnoses Not on filedocumented in this encounter Additional Health Concerns Assessment Noted Time PHQ-9 Depression Total Score: 9 06/29/2017 11:57 AM CD T documented as of this encounter Care Teams Burrer Hand Relationship Specialty Start Date End Date Kandi Alberts, GHOST WRITER, C.N.P. PCP - General 07/27/16 07/10/18 [address], [place] [address] documented as of this encounter
--- OUTSIDE RECORDS SUMMARY | 2021-12-09 13:24 | XMS_ITS | Encounter Summary ---
:1985 Author Organization [facility] Address [address] [place] [address] Care Team Providers Name Role Phone Kandi Alberts APRN C.N.PGordon Primary Care Provider [phone] Encounter Details Date Type Department Care Team Description 07/03/2017 Clinical Communication Department of [facility] Jone Ellison, Medicine, [facility], [facility] [address] [place] [address] [place], [place] [phone] (Work) [phone] Social History Tobacco Use Types Packs/Day Years [...] How often do you attend scientology or bahai Never 01/31/2019 services? 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/2018 2:20 PM WAREHOUSE RECEIVER documented as of this encounter Miscellaneous Notes [...] documented as of this encounter Care Teams Escrow Clerk Relationship Specialty Start Date End Date Kandi Alberts, EXIT BOOTH AGENT, C.N.P. PCP - General 07/27/16 07/10/[address] [phone] documented as of this encounter
--- OUTSIDE RECORDS SUMMARY | 2021-12-09 13:24 | XMS_ITS | Encounter Summary ---
:1985 Author Organization [facility] Address [address] [place] [address] Care Team Providers Name Role Phone Kandi Alberts APRN C.N.P. Primary Care Provider [phone] Encounter Details Date Type Department Care Team Description 07/02/2017 Orders Only Department of [facility] Pelvic Female Medicine, [facility] villareal, (Primary Dx) Clinic, in [place] [address] [place] [phone] Social History Tobacco Use Types Packs/Day Years [...] How often do you attend pentecostal or protestant Never 01/31/2019 services? Do you belong to [...] to pay for the very basics like [employer] hat hard 11/27/2019 food, housing, medical care, [...] at Date Recorded Female 01/11/2018 2:20 PM LICENSE ISSUER documented as of this encounter Plan of Treatment Not on filedocumented as of this encounter Visit Diagnoses Diagnosis Pain Pelvic Female - Primary documented in this encounter Additional Health Concerns Assessment Noted Time PHQ-9 Depression Total Score: 9 06/29/2017 11:57 AM CD T documented as of this encounter Care Teams Farm Instructor Relationship Specialty Start Date End Date Kandi Alberts, MULTI SPINDLE OPERATOR, C.N.P. PCP - General 07/27/16 07/10/18 [address], [place] [address] documented as of this encounter
--- OUTSIDE RECORDS SUMMARY | 2021-12-09 13:24 | XMS_ITS | Encounter Summary ---
:1985 Author Organization [facility] Address [address] [place] [address] Care Team Providers Name Role Phone Kandi Alberts APRN CGordonNGordonPGordon Primary Care Provider [phone] Encounter Details Date Type Department Care Team Description 07/06/2017 Orders Only Department of [place], Radiculopathy Neurologic Surgery in Marisa Chan P.A.-C. Lumbosacral (Primary [place], [place] [address] [facility] Dx) [address] [place] [address] [phone] Social History Tobacco Use Types Packs/Day Years [...] How often do you attend baptist or gnosticist Never 01/31/2019 services? 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/2018 2:20 PM LOCOMOTIVE INSPECTOR documented as of this encounter Plan of [...] e. Marisa Zapata P.A.-C. IMG DIAGNOSTIC IMAGING [place] OCEDURES documented in this encounter Visit Diagnoses Diagnosis Radiculopathy Lumbosacral - Primary Radiculopathy Lumbosacral documented in this encounter Additional Health Concerns Assessment Noted Time PHQ-9 Depression Total Score: 9 06/29/2017 11:57 AM CD T documented as of this encounter Care Teams Media Relations Associate Relationship Specialty Start Date End Date Kandi Alberts, TATY, C.N.P. PCP - General 07/27/16 07/10/18 [address] [place] [phone] documented as of this encounter
--- OUTSIDE RECORDS SUMMARY | 2021-12-09 13:24 | XMS_ITS | Encounter Summary ---
:1985 Author Organization [facility] Address [address] [place] [address] Care Team Providers Name Role Phone Unavailable Primary Care Provider Unavailable Encounter Details Date Type Department Care Team Description 07/14/2015 Hospital Encounter HX NO MAPPING Kandi Alberts, TATY, C.N.P. [address] [place], [place] [phone] (Wo rk) Social History [...] How often do you attend hoahaoism or temple Never 01/31/2019 services? 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/2018 2:20 PM MULTICULTURAL MANAGER documented as of this encounter Miscellaneous Notes Miscellaneous - Conversion, Historical Provider Ser - 07/14/2015 11:59 PM CDT Coding Summary-Paper Based CODING DATE: 07/27/2015 FINAL [facility] STATUS: * Discharged to Home or [...] [place] Date Saved: 07/27/2015 04:23 pm Source: Compliance 360 Document Id: [id number] documented in this encounter Plan of Treatment Not on filedocumented as of this encounter Visit Diagnoses Not on filedocumented in this encounter Additional Health Concerns Assessment Noted Time PHQ-9 Depression Total Score: 19 01/20/2015 2:44 PM CS T documented as of this encounter
--- OUTSIDE RECORDS SUMMARY | 2021-12-09 13:24 | XMS_ITS | Encounter Summary ---
:1985 Author Organization [facility] Address [address] [place] [address] Care Team Providers Name Role Phone Kandi Alberts APRN C.NGordonPGordon Primary Care Provider [phone] Encounter Details Date Type Department Care Team Description 06/29/2017 Orders Only Department of [facility] Carito coronado Medicine, [facility] [address] [place] [address] [facility] [place] [place] [phone] (Wo rk) Social History Tobacco Use Types [...] How often do you attend worship or bahai Never 01/31/2019 services? 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/2018 2:20 PM TILE SORTER documented as of this encounter Plan of Treatment Not on filedocumented as of this encounter Visit Diagnoses Not on filedocumented in this encounter Additional Health Concerns Assessment Noted Time PHQ-9 Depression Total Score: 9 06/29/2017 11:57 AM CD T documented as of this encounter Care Teams Dentist Private Practice Relationship Specialty Start Date End Date Kandi Alberts, MUSIC INTERNSHIP, C.N.P. PCP - General 07/27/16 07/10/[address] [phone] documented as of this encounter
--- OUTSIDE RECORDS SUMMARY | 2021-12-09 13:24 | XMS_ITS | Encounter Summary ---
:1985 Author Organization [facility] Address [address] [place] [address] Care Team Providers Name Role Phone Kandi Alberts APRN CGordonNGordonPGordon Primary Care Provider [phone] Encounter Details Date Type Department Care Team Description 09/28/2017 Orders Only Department of [facility] Carito coronado Medicine, [facility] rotary operator [address] [place] [address] [facility] [place] [phone] (Wo rk) Social History Tobacco Use Types [...] at Date Recorded Female 01/11/2018 2:20 PM SEAWEED HARVESTER documented as of this encounter Plan of Treatment Not on filedocumented as of this encounter Visit Diagnoses Not on filedocumented in this encounter Additional Health Concerns Assessment Noted Time PHQ-9 Depression Total Score: 15 09/28/2017 3:51 PM CD T documented as of this encounter Care Teams Wool Hat Hydraulicker Relationship Specialty Start Date End Date Kandi Alberts, POWER GENERATION TURBINE ROOM OPERATOR, C.N.P. PCP - General 07/27/16 07/10/[address] [phone] documented as of this encounter
--- OUTSIDE RECORDS SUMMARY | 2021-12-09 13:24 | XMS_ITS | Encounter Summary ---
:1985 Author Organization [facility] Address [address] [place] [address] Care Team Providers Name Role Phone Kadni Alberts APRN CGordonNGordonPGordon Primary Care Provider [phone] Encounter Details Date Type Department Care Team Description 11/21/2017 Hospital Encounter Department of Helen Zapata Radiology, Wing[place], in P.A.-C. [place], [address] [place], [place] [address] [facility] [address] [place], [place] [phone] (Work) [phone] Social History Tobacco Use Types Packs/Day Years [...] How often do you attend anabaptism or samaritan Never 01/31/2019 services? 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/2018 2:20 PM SCCM ADMINISTRATOR documented as of this encounter Medications at [...] e. Marisa Zapata P.A.-C. IMBela DIAGNOSTIC IMAGING [place] OCEDURES documented in this encounter Visit Diagnoses Diagnosis Radiculopathy Lumbosacral documented in this encounter Additional Health Concerns Assessment Noted Time PHQ-9 Depression Total Score: 15 09/28/2017 3:51 PM CD T documented as of this encounter Care Teams Inside Upholsterer Relationship Specialty Start Date End Date Kandi Alberts, TATY, C.N.P. PCP - General 07/27/16 07/10/[address] [phone] documented as of this encounter
--- OUTSIDE RECORDS SUMMARY | 2021-12-09 13:24 | XMS_ITS | Encounter Summary ---
:1985 Author Organization [facility] Address [address] [place] [address] Care Team Providers Name Role Phone Unavailable Primary Care Provider Unavailable Encounter Details Date Type Department Care Team Description 07/22/2015 - Hospital Encounter HX [facility] COLBY WinAnjelica, 07/26/2015 [facility] M.B.B.S. [address] [place] [address] Social History Tobacco Use Types Packs/Day Years [...] How often do you attend yazidi or mandaen Never 01/31/2019 services? 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/2018 2:20 PM KNOWLEDGE ANALYST documented as of this encounter Last Filed [...] ROLLINS RN - 07/26/2015 13:36 CDT Source: [facility] POWERCHART Document Id: [id number] CDT!28 Nya Rollins R.N. - 07/26/2015 11:42 AM CDT Hospital Discharge Instructions [facility] [address] [facility] [address] [place] [address] Patient Discharge Instructions Name: WENDI ODONNELL Current Date: 07/26/2015 11:42:14 : 1985 12:00 AM [facility] Number: [id number] Patient Address: [address] [facility] [id number] Patient Primary Care Provider: Name: MICHAEL HANKINS APRN JACQUARD CARD LACER Discharge Diagnosis: [facility] in [place] would like to thank you for allowing us to assist you with yourhealthcare needs. The following includes patient education materials and information regarding your injury/illness. Comment: -[facility] Behavioral Health Unit: [phone]; [facility] CrisisTeam: [phone] WENDI ODONNELL has been given the following list of follow-up instructions, medication list and patient education materials: Follow-up Instructions With: Address: When: MICHAEL HANKINS [address] [place] [address] Business (1) 08/02/2015 2:45 PM Comments: This appointment is a hospital follow up With: Address: When: Genia Correspondence Section Supervisor [facility], [address] [place] [address] 07/28/2015 11:00 AM Comments: This appointment is for case management intake. With: Address: When: [facility] [address] [facility] [place] [address] Within As Directed Comments: This is for Therapy Sharita will call you on sunday (07/25) to set up an intake appointment With: Address: When: WILLEM Larson, [facility], [address], [place], [place] [phone] 07/29/2015 2:45 PM Comments: This is for [...] Appointments Date Time Location Provider 08/02/2015 14:45 [facility] Hankins CNP Consider Using Patient Online [...] if you dont have one. Go to [email or web address] and click on Create Your Account. Then, follow the directions to complete the online form. Youll be asked for your [facility] number which you can find at the top of this document. CATHERINE Velásquez AMBER LEE , have received the attached patient education materials/instructions and have verbalized understanding: Patient Signature Date Time Care Provider Signature Date Time Source: [facility] POWERCHART Document Id: [id number] Nya Rollins R.N. - 07/26/2015 11:42 AM CDT Hospital Discharge Medication List [address] [place] [address] Discharge Medication List Name: CATHERINEWENDI LUIS Current Date: 07/26/2015 11:42:13 : 1985 12:00 AM [facility] Number: [id number] Patient Address: [address] [place] [id number] Patient Primary Care Provider: Name: MICHAEL HANKINS APRN, CNP Discharge Diagnosis: [facility] in [place] would like to thank you for allowing [...] By: ANJELICA WIN Signed On:26-JUL-2015 09:37:22 Source: [facility] POWERCHART Document Id: [id number] Anjelica Win M.B.B.S. - 07/26/2015 12:00 AM CDT [id number] DATE OF ADMISSION: July 22, 2015 DATE [...] HOSPITAL COURSE: During this brief hospitalization, the screen writer reached out to her family to [...] time of discharge Wendi had allowed the screen writer to reach out to her mother [...] of the medications she overdosed on, the screen writer had deferred starting an antidepressant, but she was started on sertraline, with the dose being optimized to 50 mg daily, which she tolerated reasonably well and certainly was not endorsing any significant side effects from it by the time of discharge. The screen writer offered psychoeducation on the detrimental effects [...] up with Michael Hankins CNP, at [address] [address], [phone], on 08/02/2015 at 2:45 p.m. for primary care followup. 2. Follow up with Genia, heel caser, [facility], [address] [place] [address], [address], [place] [address], phone , on 07/28/2015 at 11 a.m. for case management intake. 3. Follow up with [facility] at [address] [place], [place] [address], phone , for psychotherapy. Therapist will call the patient on 07/26/2015, to set up anintake appointment. 4. Follow up with WILLEM Larson, VISUAL BASIC PROGRAMMER, [facility], [address] [place] [address], phone , on 07/28/2015 at 2:45 p.m. [...] ANJELICA WIN On: 08/10/2015 12:51 AM Source: [facility] MHSDOLBEYNONRADSYS Document Id: [id number] documented in this encounter Progress Notes Roberth Lundberg, Ph.D. - 07/26/2015 12:00 AM CDT [id number] INPATIENT BEHAVIORAL HEALTH PROGRESS NOTE TIME SPENT: Forty minutes process group, (9:25 a.m. to 10:05 a.m.). PRESENTING PROBLEM: Ms. Odonnell is a 30-year-old female, who was admitted to the Behavioral Health unit the [facility] in [place], following an incident in which she reportedly [...] PhD, LP On: 08/09/2015 05:36 PM Source: [facility] MHSDOLBEYNONRADSYS Document Id: [id number] Anjelica Win M.B.B.S. - 07/25/2015 12:00 AM CDT [id number] PSYCHIATRY INPATIENT PROGRESS NOTE INTERVAL HISTORY: Wendi [...] ANJELICA WIN On: 08/10/2015 12:51 AM Source: [facility] MHSDOLBEYNONRADSYS Document Id: [id number] Anjelica Win M.B.B.S. - 07/24/2015 12:00 AM CDT [id number] PSYCHIATRY INPATIENT PROGRESS NOTE INTERVAL HISTORY: Wendi [...] seems quite anxious about discharge and the screen writer explained the 72 hour hold process to her. Discussed that the goal of this hospitalization would be to adjust medications and transitionto outpatient care as soon as possible, but also to do due diligence related to her safety. She requested for the screen writer to speak with her father, who [...] be discharged as soon as possible. The screen writer explained collateral information from her family, [...] ANJELICA WIN On: 08/05/2015 12:33 PM Source: [facility] MHSDOLBEYNONRADSYS Document Id: [id number] Aileen Lamb L.G.S.W. - 07/23/2015 2:22 PM CDT Phone Communication Phone Communication Referral Treatment Team Caller Information Name: Jose Guadalupe Cormier Case Management Phone:[phone] Description of the Call Tower Helper called a the request of this pt. to arrange an intake for CM services with Jose Guadalupe Dykes. Time and date are noted on Depart as 07/27 at 11 am. Tower Helper has also taken steps necessary to assure that this facilitys mandatory reporting requirements have been met. Plan/Follow-up 1. Continue to work with to coordinate patients plan of care. 2. Update treatment team when new information is available. Electronically Signed By: AILEEN LAMB On: 07/23/2015 02:22 PM Source: [facility] Document Id: [id number] Aileen Lamb L.G.S.W. - 07/23/2015 1:25 PM [...] She was transferred from the hospital in [facility] to the behavioral health unit. SYSTEMS REVIEW [...] a solution to all her problems. This screen writer educated her on the possibilities of medication and therapy and combination to help her with her depression. PAST MEDICAL / SURGICAL HISTORY MENTAL HEALTH HISTORY Please see PSY-Con for additional details. This patient states having been hospitalized in [place] in 2011. She states as a result of this inpatient hospitalization she was held for 72 hours, and was in contact with the [facility] heel caser as a result. She has since lost [...] younger and one older sister living in [facility]. And that her parents are both living in [facility]. MARITAL STATUS / FAMILY Patient is single [...] does state having a psychiatric provider in [place]. SPIRITUALITY / CONFUCIANISM / CULTURE This patient became careful when asked about her spirituality and judaism. She states that she is not atheist, but that she has no strong connection to a mandaen organization. LEGAL Pt reports none. HISTORY Patient [...] them alone. It would appear to this screen writer that since she has attempted in [...] Education on the role of the social worker school on the inpatient behavioral health unit 3. [...] the recommendations. Electronically Signed By: AILEEN LAMB [facility] On: 07/23/2015 01:26 PM Source: [employer] Document Id: [id number] documented in this encounter H&P Notes Anjelica Win M.B.B.S. - 07/22/2015 8:01 PM CDT [id number] PSYCHIATRY INPATIENT EVALUATION NOTE. PATIENT IDENTIFICATION/REASON FOR [...] and was apparently in the hospital in [place] at that time. This would be her [...] 2600 [place], [place] [address] mg, prednisone up to 1600 mg and [...] medicat ions from her pharmacy that is [facility] in [facility]. The events leading to hospitalization were summarized [...] hydrocodone, 2600 [place] [address] mg of methocarbamol, 1600 mg of prednisone [...] also prescribed for her and therefore the screen writer is not immediately restarting antidepressants for her. As noted, her medications need to be confirmed from her pharmacy. She claims that she was feeling hopeless, disconnected did not care if her overdose would hospitalist nocturnist physician to be lethal and does admit that [...] of it. She did not want the screen writer contacting her mother but did allow the screen writer to contact her father Thiago providing verbal consent and was willing to sign a written consent. She provided the Dad's name is Thiago and phone #[phone]. When the screen writer tried calling this number, the screen writer is informed presumably by her mother that her father was acurrently at work and cannot be contacted. However, the screen writer did leave a message for her [...] she was admitted in the hospital in [place]. She states that her back speciali st is Dr. Soto in [place]. She also sees a psychiatric nurse practitioner, Marianna Escamilla through [facility] in [place]. Dr. Hankins records from July 14, 2015, [...] trying to gether into treatment and the screen writer suspects that her alcohol use may [...] 107. Diastolic blood pressure 70. MEDICATIONS: The screen writer had started cephalexin for her but given that she was only supposed to take it for 10 days and was prescribed the on the first and may have also overdosed on this medication. The screen writer is discontinuing it until further reconciliation of her medications can be undertaken from her pharmacy and until Medicine has had a chance to evaluate her. She was taking Prozac and apparently having been switched to it recently from Effexor but was not finding it effective from what the screen writer has gathered. PAST PSYCHIATRIC HISTORY She reports depressed symptoms starting in her childhood in fact reports a strong family history of depression including her mother, grandmother and a sister, however, she did not really start seeking any psychiatric help until the age of 18. There has been at least one past psychiatric hospitalization in at a hospital in [place] but does not recall the name. She states that this was her first and only suicide attempt up until this presentation. As noted above, she is seeing Marianna Escamilla through [facility] in the [place]. She was on Prozac and lorazepam by [...] intoxications, blackouts, detox, or DWI's to the screen writer. She does not attending AA meetings [...] that she was born and raised in [facility]. 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 She did not complete her college education. [...] 2 days prior to presentation to the [place] Emergency Department. PAST MEDICAL/SURGICAL HISTORY History of [...] was cleared by the emergency department at [place] for admission. The screen writer will still obtain an EKG given [...] been compliant with it recently in the screen writer's u nderstanding. Will also confirm medications from her pharmacy that is a [facility] in [place]. Will defers starting Prozac or another antidepressant [...] ANJELICA WIN On: 08/05/2015 10:48 AM Source: [facility] MHSDOLBEYNONRADSYS Document Id: [id number] documented in this encounter Consult Notes Amadou Ann M.D. - 07/23/2015 12:00 AM CDT [id number] PRIMARY CARE PHYSICIAN: Michael Hankins CNP CONSULTATION [...] denied intoxications, blackouts, detoxification detailed to the screen writer. She is not on any AA [...] minutes. Amadou Ann M.D./pos cc: Corie RahmanB.S. [facility] in [address] [address] Electronically Signed By: AMADOU ANN MD On: 07/24/2015 11:22 AM Source: [facility] MHSDOLBEYNONRADSYS Document Id: [id number] documented in this encounter Nursing Notes Nya Rollins R.N. - 07/26/2015 10:31 AM CDT Focus: AM Status Pt has been pleasant and polite during interactions this morning. Pt was noted to be up and readinga book upon screen writer introducing self this morning. Pt cooperated [...] pt requested her prescriptions be faxed to [facility] in [place]; this was completed. Tower Helper and pt reviewed discharge paperwork, medications, prescriptions, [...] ROLLINS RN On: 07/26/2015 10:36 AM Source: [facility] POWERCHART Document Id: [id number] Alessandra Masterson R.N. - 07/25/2015 11:32 PM [...] MASTERSON RN On: 07/26/2015 02:35 AM Source: [employer] Document Id: [id number] Alessandra Masterson R.N. - 07/25/2015 8:49 PM CDT PRN Response PRN Response Entered On: 07/25/2015 20:49 CDT Performed On: 07/25/2015 20:49 CDT by ALESSANDRA MASTERSON RN Intervention Information: hydrocodone-acetaminophen Performed by ALESSANDRA MASTERSON RN on 07/25/2015 20:02:08 CDT HYDROcodone-acetaminophen,1tab(s) PO,Pain PRN Medication Effectiveness Evaluation PRN Medication Effective : Yes Post Medication Pain Assessment : 5 ALESSANDRA MASTERSON RN - 07/25/2015 20:49 CDT Source: [employer] Document Id: [id number] CDT!4 Jahaira Frost R.N. - 07/25/2015 3:16 PM CDT AM Status D/A: Patient met with screen writer for 1:1 this shift. She was [...] FROST RN On: 07/25/2015 06:22 PM Source: [facility] POWERCHART Document Id: [id number] Jahaira Frost R.N. - 07/25/2015 10:30 AM [...] FROST RN - 07/25/2015 10:30 CDT Source: [employer] Document Id: [id number] CDT!3 Maria R Peters R.N. - 07/24/2015 [...] stretches in the exercise group with the ULTRASOUND TESTER. Pt said thatshe was going to go [...] PETERS RN On: 07/25/2015 12:33 AM Source: [employer] Document Id: [id number] Maria R Peters R.N. - 07/24/2015 5:04 PM CDT PRN Response PRN Response Entered On: 07/25/2015 0:13 CDT Performed On: 07/24/2015 17:04 CDT by MARIA R PETERS RN Intervention Information: hydrocodone-acetaminophen Performed by MARIA R PETERS RN on 07/24/2015 16:04:24 CDT HYDROcodone-acetaminophen,1tab(s) PO,Pain PRN Medication Effectiveness Evaluation PRN Medication Effective : Yes MARIA R PETERS RN - 07/25/2015 0:12 CDT Source: [employer] Document Id: [id number] CDT!3 Nilda Arteaga R.N. - 07/24/2015 2:05 [...] ARTEAGA RN - 07/24/2015 14:05 CDT Source: [employer] Document Id: [id number] CDT!4 Nilda Arteaga R.N. - 07/24/2015 9:45 [...] ARTEAGA RN On: 07/24/2015 02:38 PM Source: [facility] POWERCHART Document Id: [id number] Isiah Clement R.N. - 07/23/2015 8:10 PM CDT PM Status D: Wendi has been withdrawn to her room since screen writer arrived at 3:00 pm. Patient reports [...] hydrocodone- acetaminophen 5-325 mg q6H PRN. This screen writer approached Wendiin her room to offer medication, however patient appeared to be sleeping and did not respond to abbey de leon prompts. A: The [facility] in [place] was contacted and med list by history was confirmed and documented in patient chart. Emotional support and reassurance provided. Plan of care reviewed. R: Patient was pleasant and cooperative with 1:1. Continue with current plan of care. Electronically Signed By: ISIAH CLEMENT RN On: 07/23/2015 08:13 PM Source: [employer] Document Id: [id number] Rajendra Servin R.N. - 07/23/2015 3:10 PM [...] depressed, though patient appears visually depressed to screen writer. Patient denied any physical complaints. Patient [...] RAJENDRA SERVIN On: 07/23/2015 03:18 PM Source: [employer] Document Id: [id number] Price Dee R.N. - 07/22/2015 7:17 PM CDT Focus: Admission Focus: Admission D: Patient is a 30-year-old female from [facility] ED. She was presented to the [...] attempt in which she was admitted to [facility] in [place] for 3 days. Patient states that she is supposed to be starting to work tomorrow. Patient is seeing Marianna Escamilla at [facility]. She sees her once a month. Her PCP is Michael Schuster([facility]). Paitent states that she was taking Prozac [...] She signed ALFREDO for Marianna Escamilla of [facility] (need to be faxed if needed). Patient didn't have lists of medicatios with her. Nurse called the [facility]- no records of medications found. Dr. Win is aware and ordered to hold off Cephalexin. Patient needs a tour on unit. Electronically Signed By: PRICE DEE RN On: 07/22/2015 11:19 PM Modified by and Electronically Signed by: PRICE DEE RN On: 07/22/2015 11:19 PM Source: [facility] POWERCHART Document Id: [id number] documented in this encounter Miscellaneous Notes Miscellaneous [...] ROLLINS RN - 07/26/2015 13:39 CDT Source: [employer] Document Id: [id number] CDT!10 Miscellaneous - Conversion, Historical Provider Ser - 07/26/2015 1:15 PM CDT Coding Summary-Paper Based CODING DATE: 08/06/2015 FINAL [facility] STATUS: * Discharged to Home [...] Revised Date Saved: 08/05/2015 07:46 am Source: [facility] Document Id: [id number] Ori - Grayson Mejia - 07/26/2015 10:30 AM CDT Hospital Patient Education The following Patient Education Materials have been given to the patient: Patient Education Materials: Source: [facility] LOAG Document Id: [id number] Ori - Nya Rollins R.N. - 07/26/2015 [...] ROLLINS RN - 07/26/2015 10:25 CDT Source: [facility]CHART Document Id: [id number] CDT!90 Miscellaneous - Nya Rollins R.N. - [...] ROLLINS RN - 07/26/2015 10:24 CDT Source: [facility] LOAG Document Id: [id number] CDT!15 Ori - Nya Rollins R.N. - 07/26/2015 9:54 AM CDT Team Meeting Notes Team Meeting Notes Entered On: 07/26/2015 9:55 CDT Performed On: 07/26/2015 9:54 CDT by NYA ROLLINS RN Team Notes Team Meeting Grid Discipline : Behavioral Health Nurse, Other: Psychiatric provider, psychologist, ED Library Supervisor, Popeye, Discharge planning nurse Topics : Plan of care, Other: Discharge planning NYA ROLLINS RN - 07/26/2015 9:54 CDT Source: [facility] LOAG Document Id: [id number] CDT!6 Ori - Alessandra Masterson R.N. - [...] Laterality : Right Abnormality : Rash BRETT MASTERSONJnoe Higgins - 07/26/2015 1:48 CDT Skin Color [...] MASTERSON RN - 07/26/2015 1:48 CDT Source: [employer] Document Id: [id number] CDT!61 Miscellaneous - Alessandra Masterson RGordonN. - [...] MASTERSON RN - 07/26/2015 1:47 CDT Source: [employer] Document Id: [id number] CDT!9 Miscellfelicita - Jahaira Frost RGordonNGordon - [...] FROST RN - 07/25/2015 17:59 CDT Source: [employer] Document Id: [id number] CDT!96 Miscellaneous - Jahaira Frost R.N. - [...] Bowel Movement Last Date : 07/24/2015 CDT TFIFANIE WIN - 07/25/2015 16:31 CDT ADLs Adult Nutrition Feeding Assistance : Independent JAHAIRA FROST RN - 07/25/2015 17:56 CDT Dinner : 75 % TIFFANIE WIN - 07/25/2015 17:44 CDT Diet Type : Diet -- 07/22/15 20:57:00 CDT, General (Regular) TIFFANIE WIN - 07/25/2015 16:31 CDT Source: [facility] POWERCHART Document Id: [id number] CDT!21 Miscellaneous - Jahaira Frost R.N. - [...] FROST RN - 07/25/2015 9:47 CDT Source: [facility] [employer] Document Id: [id number] CDT!5 Miscellaneous - Jahaira Frost R.N. - [...] Minimal distress (Comment: chronic back pain [JAHAIRA FROTS RN - 07/25/2015 9:12 CDT] ) JAHAIRA [...] FROST RN - 07/25/2015 9:04 CDT Source: [employer] Document Id: [id number] CDT!108 Miscellaneous - Jorge Escobar V - [...] FROST RN - 07/25/2015 9:03 CDT Source: [employer] Document Id: [id number] CDT!21 Emilee Bacon R.N. - 07/25/2015 2:00 [...] OLIVER RN - 07/25/2015 2:00 CDT Source: [employer] Document Id: [id number] CDT!8 Emilee Bacon R.N. - 07/25/2015 1:57 [...] OLIVER RN - 07/25/2015 1:58 CDT Source: [employer] Document Id: [id number] CDT!52 Ori - Tiffanie Win R.N. - [...] TIFFANIE WIN - 07/24/2015 18:05 CDT Source: [employer] Document Id: [id number] CDT!8 Maria R Parks R.N. - 07/24/2015 [...] R PETERS RN - 07/24/2015 16:54 CDT Doucette Coma Eye Opening Response Doucette : Spontaneously Best Verbal Response Laura : Oriented Best Motor Response Doucette : Obeys simple commands Laura Coma Score [...] PETERS RN - 07/24/2015 16:54 CDT Source: [facility] POWERCHART Document Id: [id number] CDT!97 Miscellaneous - Maria R Peters R.N. [...] PETERS RN - 07/24/2015 16:24 CDT Source: [employer] Document Id: [id number] CDT!3 Miscellaneous - Maria R Peters R.N. [...] PETERS RN - 07/24/2015 16:22 CDT Source: [employer] Document Id: [id number] CDT!17 Miscellaneous - Nilda Arteaga R.N. - [...] ARTEAGA RN - 07/24/2015 14:05 CDT Source: [employer] Document Id: [id number] CDT!20 Miscellaneous - Nilda Arteaga R.N. - [...] ARTEAGA RN - 07/24/2015 14:07 CDT Source: [employer] Document Id: [id number] CDT!5 Emilee Bacon R.N. - 07/24/2015 12:41 [...] OLIVER RN - 07/24/2015 0:41 CDT Source: [employer] Document Id: [id number] CDT!8 Emilee Bacon R.N. - 07/24/2015 12:38 [...] OLIVER RN - 07/24/2015 0:38 CDT Source: [facility] POWERCHART Document Id: [id number] CDT!49 Miscellaneous - Isiah Clement R.N. - [...] 18:29 CDT Laura Coma Eye Opening Response Doucette : Spontaneously Best Verbal Response Doucette : Oriented Best Motor Response Laura : [...] No Cognition : Cooperative with 1:1 ISIAH CLEEMNT - 07/23/2015 18:29 CDT Suicide Risk Re-Assessment [...] CDT Genitourinary Patient Stated Symptoms : None SIIAH CLEMENT - 07/23/2015 18:29 CDT Integumentary Integumentary [...] CLEMENT RN - 07/23/2015 18:29 CDT Source: [facility] Document Id: [id number] CDT!98 Miscellaneous - Maria R Peters R.N. [...] TIFFANIE WIN - 07/23/2015 17:40 CDT Source: [facility] LOAG Document Id: [id number] CDT!12 Ori - Aileen Lamb L.G.S.W. - 07/23/2015 2:25 PM CDT Hospital Patient Education The following Patient Education Materials have been given to the patient: Patient Education Materials: Source: [facility] Document Id: [id number] Ori - Aileen Lamb L.G.S.W. - 07/23/2015 2:24 PM CDT Hospital Patient Education The following Patient Education Materials have been given to the patient: Patient Education Materials: Source: [facility] Document Id: [id number] Ori - Rajendra Servin R.N. - 07/23/2015 [...] RAJENDRA SERVIN - 07/23/2015 14:17 CDT Source: [employer] Document Id: [id number] CDT!85 Ori - Grayson Mejia - 07/23/2015 2:01 PM CDT [facility] Patient Education The following Patient Education Materials have been given to the patient: Patient Education Materials: Source: [employer] Document Id: [id number] Ori - Aileen Lamb L.G.S.W. - 07/23/2015 1:36 PM CDT [facility] Patient Education The following Patient Education Materials have been given to the patient: Patient Education Materials: Source: [employer] Document Id: [id number] Ori - Rajendra Servin, RGordonNGordon - 07/23/2015 12:22 PM CDT Team Meeting Notes Team Meeting Notes Entered On: 07/23/2015 12:22 CDT Performed On: 07/23/2015 12:22 CDT by RAJENDRA SERVIN Team Notes Team Meeting Grid Discipline : Behavioral Health Nurse, Physician, Library Supervisor, Other: Psychologist Topics : Plan of care MALATHI RAJENDRA Becerril - 07/23/2015 12:22 CDT Source: [facility] Document Id: [id number] CDT!6 Ori - Rajendra Servin RGordonNGordon - [...] ARTEAGA RN - 07/23/2015 9:42 CDT Source: [facility] Document Id: [id number] CDT!15 Ori - Alessandra Masterson RGordonNGordon - [...] MASTERSON RN - 07/23/2015 1:07 CDT Source: [facility] Document Id: [id number] CDT!8 Miscellaneous - Alessandra Masterson R.N. - [...] MASTERSON RN - 07/23/2015 1:07 CDT Source: [facility] Document Id: [id number] CDT!55 Miscellaneous - Price Dee R.N. - [...] DEE RN - 07/22/2015 21:28 CDT Source: [employer] Document Id: [id number] CDT!11 Miscellaneous - Price Dee RGordonNGordon - [...] DEE RN - 07/22/2015 21:21 CDT Source: [facility] Document Id: [id number] CDT!77 Miscellaneous - Tiffanie Win R.N. - [...] TIFFANIE WIN - 07/22/2015 20:49 CDT Source: [facility] Document Id: [id number] CDT!23 documented in this encounter Plan of [...] / Volume Laterality 07/23/2015 12:41 PM CDT [facility] - 07/23/2015 12:41 PM CDT [...] Organization Address City/State/ZIP Code Phon e Number [facility] [address] [place] [address] documented in this encounter Visit Diagnoses Not on filedocumented in this encounter Additional Health Concerns Assessment Noted Time PHQ-9 Depression Total Score: 19 01/20/2015 2:44 PM CS T documented as of this encounter
--- OUTSIDE RECORDS SUMMARY | 2021-12-09 13:24 | XMS_ITS | Encounter Summary ---
:1985 Author Organization [facility] Address [address] [place] [address] Care Team Providers Name Role Phone Kandi Alberts APRN CGordonNGordonPGordon Primary Care Provider [phone] Reason for Referral MRI/CAT/PET Scan (Routine) - Closed Specialty Diagnoses / Procedures Referred By Contact Refer red To Contact Radiology Diagnoses Radiculopathy Lumbar [facility] Procedures MR Lumbar Spine without IV Contrast [place] MRI LUMB SPINE WO [facility]TR[facility] HC MRI LUMB SPINE WO CNTRST P.A[facility]C. [address] [place] [address] Referral ID Status Reason Start Date Expiration Date Visits Requ ested Visits Authorized [id number] Closed 11/21/2017 11/21/2018 1 1 Reason for Visit MRI/CAT/PET Scan (Routine) - Closed Specialty Diagnoses / Procedures Referred By Contact Refer red To Contact Radiology Diagnoses Radiculopathy Lumbar Benny [facility] Procedures MR Lumbar Spine without IV Contrast NH MRI LUMB SPINE WO [facility] HC MRI LUMB SPINE WO CNTRST P.A[facility]. [address] [place] [address] Referral ID Status Reason Start Date Expiration Date Visits Requ ested Visits Authorized [id number] Closed 11/21/2017 11/21/2018 1 1 Encounter Details Date Type Department Care Team Description 11/22/2017 Hospital Encounter Department of Helen [facility] Lumbar Radiology, Anthony Bill, in P.A[facility]. [place], [address] [place], [place] [address] [facility] [address] [place], [place] [phone] (Work) [phone] Social History Tobacco Use Types Packs/Day Years [...] How often do you attend worship or hindu Never 01/31/2019 services? 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 FINDINGS: Allowing for differences in imaging technician nique and patient position, no significant [...] spine 03/01/2016. FINDINGS: Allowing for differences in imaging technician nique and patient position, no significant [...] documented as of this encounter Care Teams District Recruiter Relationship Specialty Start Date End Date Kandi Alberts, TATY, C.N.P. PCP - General 07/27/16 07/10/[address] [address] documented as of this encounter
--- OUTSIDE RECORDS SUMMARY | 2021-12-09 13:24 | XMS_ITS | Encounter Summary ---
:1985 Author Organization [facility] Address [address] [place] [address] Care Team Providers Name Role Phone Unavailable Primary Care Provider Unavailable Encounter Details Date Type Department Care Team Description 07/14/2015 Hospital Encounter HX [facility] Michelle Hankins, TATY, C.N.P. [address] [place] [address] (Wo rk) Social History Tobacco [...] How often do you attend adventism or shinto Never 01/31/2019 services? 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 She follows with Dr. Soto in [place]. She was on gabapentin and Naproxen. Naproxen was discontinued due to an ulcer. She has been using Tylenol butit hasn't been helping. She plans to schedule a follow up appointment with Dr. Soto. She sees Marianna Escamilla, Psychiatric Nurse Practitioner at [facility] in [place]. She was recently switched from Effexor to [...] must include the following: Cholesterol, serum, total (81831) Lipoprotein, direct measurement, high density cholesterol (HDL cholesterol) (83638) Triglycerides (25757). (09/05/2007), section - at term (2007), D&C [...] Urine OV Est Pt Level 4 - 13232 - 25 min Depressive psychosis, recurrent episodes Follows with Marianna Escamilla, Psychiatric Nurse Practitioner at [facility]. Has call in for advice regarding recent change in antidepressant medication. Ordered: OV Est Pt Level 4 - 07264 - 25 min Infection Staphylococcus (Staph) Aureus Keflex 500 mg, one 3 times daily for 10 days. I will call with culture result. Ordered: Culture Aerobic OV Est Pt Level 4 - 56830 - 25 min Pain Low Back (LBP) Chronic Worsening, schedule appointment with Dr. Soto. Continue Tylenol as needed. Ice and rest. Ordered: OV Est Pt Level 4 - 32354 - 25 min Orders: cephalexin, 500 mg = 1 cap(s), PO, 3xDay, x 10 day(s), # 30 cap(s), 0 Refill(s), Acute, Pharmacy: [id number] Electronically Signed By: MICHAEL HANKINS APRN, CNP On: 07/14/2015 04:45 PM Source: [employer] Document Id: [id number] documented in this encounter Nursing Notes Michael [...] direct contact with an infected person through zbor-xt-pema contact. It also spreads through contact with [...] of staph bacteria that are resistant, or avdr-yl-gwui. This means the bacteria cannot be treated [...] even if youre f eeling better. ?? [phone] Kyle Kenny, [address] [place] [address], [place] [address]. All rights reserved. This information is not intended as a substitute for professional medical care. Always follow your healthcare professional's instructions. This document has images extracted. Please consider using [employer] for all your patient education needs. Source: [facility] POWERCHART Document Id: [id number] documented in this encounter Miscellaneous Notes Miscellaneous - Michael Hankins APRN, C.N.P. - 07/14/2015 4:18 PM CDT Ambulatory Patient Summary [address] [id number] Visit Information Name: CATHERINEWENDI [facility] Number: [id number] Current Date: 07/14/2015 16:18:11 Physicians [...] times a day x 10 day(s) New [address] [id number] FLUoxetine (PROzac 40 mg oral capsule) 1 [...] direct contact with an infected person through pwwe-rk-yxdb contact. It also spreads through contact with [...] of staph bacteria that are resistant, or bvpn-eg-gkmq. This means the bacteria cannot be treated [...] finished, even if youre feeling better. ?? [phone] [facility], [address] [place] [address]. All rights reserved. This information is not [...] if you dont have one. Go to [email or web address] and click on Create Your Account. Then, follow the directions to complete the online form. Youll be asked for your [facility] number which you can find at the top of this document. Your Goals/Additional instructions: This document has images extracted. Please consider using [employer] for all your patient education needs. Source: [facility] POWERCHART Document Id: [id number] Miscellaneous - Michael Hankins APRN, C.N.P. - 07/14/2015 4:18 PM CDT Ambulatory Discharge Medication List [address] [id number] Visit Information Name: WENDI ALEXANDER [facility] Number: [id number] Visit Date: 07/14/2015 16:18:11 Attending Provider: MICHAEL HANKINS APRN, CNP Primary Care Provider: MICHAEL HANKINS APRN [facility] WENDI ALEXANDER has been given the following [...] times a day x 10 day(s) New [address] [address] FLUoxetine (PROzac 40 mg oral [...] CNP Signed On:14-JUL-2015 16:18:00 Additional Information: Source: [facility] POWERCHART Document Id: [id number] Miscellaneous - Thais Yi L.P.N. - 07/14/2015 4:02 PM CDT Adult Patient Accounts Specialist Intake/History Adult Patient Accounts Specialist Intake/History Entered On: 07/14/2015 16:09 CDT [...] Preferred Communication Mode : Verbal Languages : Swiss Is Patient Female and 13-50 no hysterectomy [...] MICK - 07/14/2015 16:02 CDT LAMINEMAXIMINOTHAIS Ortega MERCHANDISE TEAM MANAGER - 07/14/2015 16:02 CDT Dependent Habits Exposure [...] YI MICK - 07/14/2015 16:02 CDT Source: [employer] Document Id: [id number] CDT!53 documented in this encounter Plan of [...] Bacterial Culture, Aerobic (07/14/2015 4:28 PM CDT) [facility] Method Time Signature Organism POWERCHART Refer [...] Test, Qualitative, Urine (07/14/2015 4:26 PM CDT) [facility] Method Time Signature HXBeta-hCG Negative POWERCHART Qualitative Urine Specimen (Source) Anatomical Collection Method Collection Time Re ceived Time Location / / Volume Laterality Urine 07/14/2015 4:26 PM CDT Michael Hankins APRN, C.N.P. LAB URINE ORDERABLES Performing Organization Address City/[facility]/ZIP Code Phon e Number POWERCHART documented in this encounter Visit Diagnoses Not on filedocumented in this encounter Additional Health Concerns Assessment Noted Time PHQ-9 Depression Total Score: 19 01/20/2015 2:44 PM CS T documented as of this encounter
--- OUTSIDE RECORDS SUMMARY | 2021-12-09 13:25 | XMS_ITS | Encounter Summary ---
:1985 Author Organization [facility] Address [address] [place] [address] Care Team Providers Name Role Phone Unavailable Primary Care Provider Unavailable Encounter Details Date Type Department Care Team Description 12/25/2014 Hospital Encounter HX [facility] Michael Alberts A PRN, C.N.P. [address] [place], [place] [address] (Wo rk) Social History [...] How often do you attend worship or tenriism Never 01/31/2019 services? 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/2018 2:20 PM SCALER documented as of this encounter Last Filed Vital Signs Vital Sign Reading Time Taken Comments Blood Pressure - - Pulse - - Temperature - - Respiratory Rate - - Oxygen Saturation - - Inhaled Oxygen Concentration - - Weight - - Height 162 cm (5' 3.78) 12/25/2014 9:22 AM SCALER Body Mass Index - - documented in this encounter Miscellaneous Notes Miscellaneous - Michael Alberts, TATY, C.N.P. - 12/28/2014 8:08 AM CST Normal Results Letter 28 December 2014 WENDI ALEXANDER [address] [facility] [place] [id number] Dear WENDI ALEXANDER, I am pleased to [...] 150 - 450 Sincerely, MICHAEL ALBERTS [address] [place] [address] Electronic Signature Electronically Signed By: MICHAEL ALBERTS [employer] On: 28 December 2014 This document has images extracted. Source: [facility] POWERCHART Document Id: [id number] Electronically signed by Komal [facility] Survey Methodologist [id number] at 07/10/2016 7:24 AM CDT documented in this encounter Plan of Treatment Not on filedocumented as of this encounter Procedures Procedure Name Priority Date/Time Associated Diagnosis Comme nts LIPID PANEL, S Routine 12/25/2014 10:12 AM Result s for this SCALER procedure are i n the results section. CBC WITHOUT Routine 12/25/2014 10:12 AM Results for this DIFFERENTIAL, B SCALER procedure ar e in the results section. THYROID-STIMULATING Routine 12/25/2014 10:12 AM R esults for this HORMONE-SENSITIVE SCALER procedure are in (S-TSH) the results section. documented in this encounter Results CBC without Differential (12/25/2014 10:12 AM SCALER) athologist Signature Leukocytes 4.6 3.4 - 10.5 POWERCHART X109L Erythrocytes 4.52 3.90 - 5.03 POWERCHART Y0465G Hemoglobin 13.3 12.0 - 15.5 POWERCHART GDL Hematocrit 39.7 34.9 - 44.5 POWERCHART MCV 87.8 82.0 - 98.0 POWERCHART FL Platelet Count 222 150 - 450 POWERCHART X109L HX RDW 12.3 11.9 - 15.5 POWERCHART Specimen (Source) Anatomical Collection Method Collection Time Re ceived Time Location / / Volume Laterality Blood 12/25/2014 10:12 AM SCALER Michael Alebrts APRN, C.N.P. LAB BLOOD ADD-ON Performing Organization Address City/State/ZIP Code Phon e Number POWERCHART Thyroid-Stimulating Hormone-Sensitive (s-TSH) (12/25/2014 10:12 AM SCALER) athologist Signature TSH 1.58 0.27 - 4.20 POWERCHART (Thyrotropin) MIUL Specimen (Source) Anatomical Collection Method Collection Time Re ceived Time Location / / Volume Laterality Blood 12/25/2014 10:12 AM SCALER Michael Alberts APRN, C.N.P. LAB BLOOD ADD-ON Performing Organization Address City/State/ZIP Code Phon e Number POWERCHART (ABNORMAL) Lipid Panel (12/25/2014 10:12 AM SCALER) athologist Signature Calculated LDL 119 <=129 MGDL [...] FH and FDB is available lisbeth ramirez [facility]: FH/ADH Genetic Reflex Kaur el (test ADHP). Acquired (non-genetic) causes of markedly increased LDL cholesterol include cholestatic liver disease due to the presence of LpX. If a genetic form of hypercholesterolemia is suspected, family studies including biochemical testing fo r lipids (total cholesterol,triglycerides, LDL cholesterol and HDL cholesterol) are recommended. ??Please contact the laboratory at or the on-line test catalog at [facility] for information about how to order these [...] / Volume Laterality Blood 12/25/2014 10:12 AM SCALER Michael Alberts APRN, C.N.P. LAB BLOOD ADD-ON Performing Organization Address City/State/ZIP Code Phon e Number POWERCHART documented in this encounter Visit Diagnoses Not on filedocumented in this encounter Additional Health Concerns Assessment Noted Time PHQ-9 Depression Total Score: 18 12/24/2014 2:32 PM CS T documented as of this encounter
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
--- OUTSIDE RECORDS SUMMARY | 2021-12-09 13:25 | XMS_ITS | Encounter Summary ---
:1985 Author Organization [facility] Address [address] [place] [address] Care Team Providers Name Role Phone Unavailable Primary Care Provider Unavailable Encounter Details Date Type Department Care Team Description 10/02/2011 Hospital Encounter HX NO MAPPING Kyler Pantoja III, M.D. (Skip), M.P.H. [address] [place], [place] [address] (Wo rk) Social History [...] How often do you attend denominational or hindu Never 01/31/2019 services? 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
--- OUTSIDE RECORDS SUMMARY | 2021-12-09 13:25 | XMS_ITS | Encounter Summary ---
:1985 Author Organization [facility] Address [address] [place] [address] Care Team Providers Name Role Phone Unavailable Primary Care Provider Unavailable Encounter Details Date Type Department Care Team Description 08/25/2009 Hospital Encounter HX [facility] Navi Major M.D. [address], [place] [address] (Wo rk) Social History Tobacco [...] How often do you attend christianity or voodoo Never 01/31/2019 services? 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 - 08/25/2009 12:00 AM CDT [id number] IMPRESSION/REPORT/PLAN ThinPrep is obtained. We will see [...] BARAKAT MD On 08/26/2009 02:40 PM Source: [facility] MHSDOLBEYNONRADSYS Document Id: [id number] documented in this encounter Miscellaneous Notes Miscellaneous [...] Patient ( ) ( ) Call for Wood Crew Supervisor ( ) Follow up on Results ( x ) Other: send letter PROVIDER: ( ) Call Physician ( ) Call Pharmacist ( ) Call Lab ( ) Other: Special Instructions: Comments: Source: [facility] POWERCHART Document Id: [id number] Miscellaneous - Uche Barakat M.D. - 08/31/2009 12:00 AM CDT [id number] August 31, 2009 Wendi Belle [address] [place], [place] [phone] Dear Wendi, I just want to touch [...] our office at your earliest convenience at [phone]. Sincerely, Uche Barakat M.D. Obstetrics & Gynecology BDB/mgd Source: [facility] MHSDOLBEYNONRADSYS Document Id: [id number] Miscellaneous - Conversion, Historical Provider Ser - 08/25/2009 9:33 AM CDT Adult Pmo Lead Intake/History Adult Pmo Lead Intake/History Entered On: 08/25/2009 9:34 CDT Performed [...] ; Reviewed Date: 08/25/2009 9:32 CDT Source: [facility] POWERCHART Document Id: [id number] documented in this encounter Plan of [...] Thin Prep, Pap (08/25/2009 9:43 AM CDT) [facility] Backchat Method Time Signature Interpretation Performed POWERCHART Comment: Test Performed by: [facility] Dpt of Lab Med and Pathology [address] [place], [place] [id number] Underground Bolting Machine Operator: Delano bella III, M.D. Specimen Anatomical Collection Method Collection Time Receive d Time (Source) Location / / Volume Laterality Cervix/Endocervi 08/25/2009 9:43 AM 08/25 6:45 x CDT PM CDT Historical Provider LAB HISTORICAL ORDERS Performing Organization Address City/State/ZIP Code Phon e Number POWERCHART ThinPrep Screen HPV Reflex (08/25/2009 9:43 AM CDT) [facility] Backchat Method Time Signature Interpretation [id number] POWERCHART HXThPrep Scrn See Comment POWERCHART [facility] Comment: A. ??ThinPrep Pap Test Screen (Cervical/ Endocervical HPV Reflex): Satisfactory for evaluation. Squamous epithelial cell abnormality Low grade squamous intraepithelial lesio n. 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 Screened at [facility]ology [facility]ys[facility] Office [address] [place] [id number] HXThPrep Scrn [facility] See Comment BERNABE KEYEST Comment: RESULT: MASSIMO Arreola(ASC P) HXThPrep Scrn [facility] See Comment BERNABE RCKRIST Comment: RESULT: 08/31/2009 13:30 Interpreted by: Nancy Arroyo M.D. Report electronically signed by Nancy Arroyo M.D. Transcribed by: [facility] ??08/31/2009 12:28:27 HX Spec Desc-Boling See Comment POWERCHART Comment: A. ??ThinPrep Pap Test Screen (Cervical/ Endocervical HPV Reflex): Received blood tinged specimen in ThinPr ep vial. Test Performed by: [facility] Dpt of Lab Med and Pathology [address] [place] [address] Underground Bolting Machine Operator: Delano bella III, M.D. Specimen (Source) Anatomical [...]
--- OUTSIDE RECORDS SUMMARY | 2021-12-09 13:25 | XMS_ITS | Encounter Summary ---
:1985 Author Organization [facility] Address [address] [place] [address] Care Team Providers Name Role Phone Unavailable Primary Care Provider Unavailable Encounter Details Date Type Department Care Team Description 03/26/2012 Hospital Encounter HX NO MAPPING Jef Casiano Jr., M.D. [address] [place], [place] [phone] (Wo rk) Social History [...] How often do you attend catholic or buddhist Never 01/31/2019 services? 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
--- OUTSIDE RECORDS SUMMARY | 2021-12-09 13:25 | XMS_ITS | Encounter Summary ---
:1985 Author Organization [facility] Address [address] [place] [address] Care Team Providers Name Role Phone Unavailable Primary Care Provider Unavailable Encounter Details Date Type Department Care Team Description 12/24/2014 Hospital Encounter HX [facility] Michelle Hankins, TATY, C.N.P. [address] [place] [address] (Wo rk) Social History Tobacco [...] How often do you attend tenriism or restoration Never 01/31/2019 services? Do you [...] Date Recorded Female 01/11/2018 2:20 PM BUSINESS SALES CONSULTANT documented as of this encounter Last Filed Vital Signs Vital Sign Reading Time Taken Comments Blood Pressure 114/74 12/24/2014 2:12 PM BUSINESS SALES CONSULTANT Pulse 80 12/24/2014 2:12 PM BUSINESS SALES CONSULTANT Temperature - - Respiratory Rate 16 12/24/2014 2:12 PM BUSINESS SALES CONSULTANT Oxygen Saturation - - Inhaled Oxygen Concentration - - Weight 63.5 kg (139 lb 15.9 oz) 12/24/2014 2:12 PM BUSINESS SALES CONSULTANT Height 162 cm (5' 3.78) 12/24/2014 2:12 PM BUSINESS SALES CONSULTANT Body Mass Index 24.2 12/24/2014 2:12 PM BUSINESS SALES CONSULTANT documented in this encounter Progress Notes Michael Hankins, TATY, Leti. - 12/24/2014 1:53 PM CST [id number] CHIEF COMPLAINT/REASON FOR VISIT 1. Depression. 2. Fatigue. HISTORY OF PRESENT ILLNESS This is Wendi's 1st visit back at [facility] in [place] in over a year. She has been getting care at [facility] in [place]. She states she has depression, she feels extremely tired, she does not want to get out of bed, she is overeating, she has little interest or pleasure in doing things. She is having difficult time concentrating. She just started a new job at the [employer], she is working nights, yesterday was her first day. She denies any desire to harm herselfor others. She is currently on Effexor 37.5 mg 1 daily. She does not feel it is helping. She has chronic low back pain. She sees Dr. Jacobsen in [place]. She takes naproxen and gabapentin for her [...] nontender. No hepatosplenomegaly. GENITOURINARY: Bartholin's, urethral and [place]'s, vagina and cervix are without lesion. ThinPrep [...] HANKINS CNP On: 12/28/2014 07:47 AM Source: [facility] MHSDOLBEYNONRADSYS Document Id: [id number] NESS SALES CONSULTANT documented in this encounter Nursing Notes Michael [...] medications. Your doctor can tell you more. [place] If you have bipolar disorder, you may take a medication called lithium. This medication helps even out your mood. Possible side effects are weight gain, trembling, and nausea. If You Are Taking MAOIs, Avoid: Beans Aged cheese Chocolate Red wine Most cold medications Certain medications (ask your doctor) To Reduce the Risk of [place] Poisoning: Take only the prescribed amount of lithium. Drink plenty offluids other than coffee, tea, and soda. Limit salt in your diet. If You Have Side Effects The side effects of antidepressants are usually mild. But if you have troubling side effects, call your doctor. Changing the dosage or type of medication may help. Never stop taking medications on yourown. ?? [phone] Kyle Kenny, [address] [place] [address], [place] [address]. All rights reserved. This information is not intended as a substitute for professional medical care. Always follow your healthcare professional's instructions. This document has images extracted. Please consider using [employer] for all your patient education needs. Source: MCHJalbumCHART Document Id: [id number] NESS SALES CONSULTANT documented in this encounter Miscellaneous Notes Miscellaneous - Michael Hankins APRN, C.N.P. - 01/04/2015 1:55 PM CST Custom Result Letter 04 January 2015 WENDI ALEXANDER [id number] [facility] [id number] Dear WENDI ALEXANDER, I am happy to inform you that your recent Pap smear has been read as normal or negative. This is very reassuring. I would recommend following up with your next Pap smear in three years. Result Name Current Result DIRECTOR CHECK Cytology. 12/24/2014 Sincerely, MICHAEL HANKINS [address] [place] [address] Electronic Signature Electronically Signed By: MICHAEL HANKINS CNP On: 04 January 2015 This document has images extracted. Source: [facility] eGood Document Id: [id number] Electronically signed by Komal, [facility] Supervisor [employer]cribing Operators [id number] at 07/10/2016 7:24 AM CDT Miscellaneous - Thais Yi L.P.N. - 12/24/2014 2:35 PM CST Health Assessment Health Assessment Entered On: 12/24/2014 14:38 BUSINESS SALES CONSULTANT Performed On: 12/24/2014 14:35 BUSINESS SALES CONSULTANT by THAIS YI LPN Health Assessment Complete Health Assessment Complete or Modified : Annual Health Assessment Annual Health Assessment Completed : Yes THAIS YI LPN - 12/24/2014 14:35 BUSINESS SALES CONSULTANT Nutrition Nutrition Risk Factors by History Adult : None THAIS YI LPN - 12/24/2014 14:35 BUSINESS SALES CONSULTANT Functional Current Daily Living Assistance : None THAIS YI LPN - 12/24/2014 14:35 BUSINESS SALES CONSULTANT Dependent Habits Tobacco Use/Currently Using : No Tobacco Use/Last 12 months : No Exposure to Tobacco Smoke : Other: Never Smoking Status : Never smoker Alcohol Use : Yes THAIS YI LPN - 12/24/2014 14:35 BUSINESS SALES CONSULTANT Caffeine Use Grid Caffeine Use : Current Type : Energy drinks Frequency : Weekly Amount : 1 THAIS YI LPN - 12/24/2014 14:35 BUSINESS SALES CONSULTANT AUDIT Tool How Often Do You Have [...] 8 THAIS YI LPN - 12/24/2014 14:35 BUSINESS SALES CONSULTANT Psychosocial Domestic Abuse Concerns : None Behavioral Health Screen/Safety Assmt : No Quaker Preference : No qualifying data available. THAIS YI LPN - 12/24/2014 14:35 BUSINESS SALES CONSULTANT Advance Directive Advanced Directives : No Advance Directive Additional Information : No THAIS YI LPN - 12/24/2014 14:35 BUSINESS SALES CONSULTANT Educ Needs Learning Style Preference Adult Grid Patient : Printed materials, Verbal explanation Family : Verbal explanation, Printed materials THAIS YI LPN - 12/24/2014 14:35 BUSINESS SALES CONSULTANT Source: [facility] POWERCHART Document Id: [id number] BUSINESS SALES CONSULTANT!45 NESS SALES CONSULTANT Miscellaneous - Thais Yi, L.P.N. - 12/24/2014 2:32 PM CST PHQ-9 PHQ-9 Entered On: 12/24/2014 14:33 BUSINESS SALES CONSULTANT Performed On: 12/24/2014 14:32 BUSINESS SALES CONSULTANT by THAIS YI LPN PHQ-9 Little interest [...] difficult THAIS YI LPN - 12/24/2014 14:32 BUSINESS SALES CONSULTANT Source: [facility] eGood Document Id: [id number] BUSINESS SALES CONSULTANT!13 NESS SALES CONSULTANT Miscellaneous - Michael Hankins APRN, C.N.P. - 12/24/2014 2:27 PM CST Ambulatory Patient Summary [address] [id number] Visit Information Name: CATHERINE WENDI LUIS [facility] Number: [id number] Current Date: 12/24/2014 14:27:56 Physicians [...] day This is a CHANGE Routed to [address] [address] Stop Taking the Following Medications: Medication list [...] medications. Your doctor can tell you more. [place] If you have bipolar disorder, you may take a medication called lithium. This medication helps even out your mood. Possible side effects are weight gain, trembling, and nausea. If You Are Taking MAOIs, Avoid: Beans Aged cheese Chocolate Red wine Most cold medications Certain medications (ask your doctor) To Reduce the Risk of [place] Poisoning: Take only the prescribed amount of lithium. Drink plenty offluids other than coffee, tea, and soda. Limit salt in your diet. If You Have Side Effects The side effects of antidepressants are usually mild. But if you have troubling side effects, call your doctor. Changing the dosage or type of medication may help. Never stop taking medications on yourown. ?? [phone] Kyle [facility], [address] [place] [address], [place] [address]. All rights reserved. This information is not [...] if you dont have one. Go to [email or web address] and click on Create Your Account. Then, follow the directions to complete the online form. Youll be asked for your [facility] number which you can find at the top of this document. Your Goals/Additional instructions: This document has images extracted. Please consider using [employer] for all your patient education needs. Source: [facility] POWERCHART Document Id: [id number] NESS SALES CONSULTANT Miscellaneous - Michael Hankins APRN, C.N.P. - 12/24/2014 2:27 PM CST Ambulatory Discharge Medication List [address] [id number] Visit Information Name: WENDI ALEXANDER [facility] Number: [id number] Visit Date: 12/24/2014 14:27:55 Attending [...] day This [place] [address] Stop Taking the Following Medications: Medication list [...] CNP Signed On:24-DEC-2014 14:27:37 Additional Information: Source: [facility] POWERCHART Document Id: [id number] NESS SALES CONSULTANT Miscellaneous - Thais Yi L.P.N. - 12/24/2014 2:12 PM CST Adult Handkerchief Sample Clerk Intake/History Adult Handkerchief Sample Clerk Intake/History Entered On: 12/24/2014 14:15 BUSINESS SALES CONSULTANT Performed On: 12/24/2014 14:12 BUSINESS SALES CONSULTANT by THAIS YI LPN Intake Chief Complaint [...] kg/m2 THAIS YI LPN - 12/24/2014 14:12 BUSINESS SALES CONSULTANT General Info Information Given By : Patient Preferred Communication Mode : Verbal Languages : German Is Patient Female and 13-50 no hysterectomy : Yes Status : Patient denies Are you ? : No THAIS YI LPN - 12/24/2014 14:12 BUSINESS SALES CONSULTANT Subjective Pain Symptoms : No THAIS YI LPN - 12/24/2014 14:12 BUSINESS SALES CONSULTANT Dependent Habits Tobacco Use/Currently Using : No Tobacco Use/Last 12 months : No Exposure to Tobacco Smoke : Other: Never Smoking Status : Never smoker THAIS YI LPN - 12/24/2014 14:12 BUSINESS SALES CONSULTANT Caffeine Use Grid Caffeine Use : Current Type : Energy drinks Frequency : Weekly Amount : 1 THAIS YI LPN - 12/24/2014 14:12 BUSINESS SALES CONSULTANT Source: [employer] POWERCHART Document Id: [id number] BUSINESS SALES CONSULTANT!38 NESS SALES CONSULTANT documented in this encounter Plan of Treatment Not on filedocumented as of this encounter Procedures Procedure Name Priority Date/Time Associated Diagnosis Comme nts PATHOLOGY DIRECTOR CHECK Routine 12/24/2014 12:00 AM Results for this CYTOLOGY BUSINESS SALES CONSULTANT procedure are i n the results section. documented in this encounter Results Pathology DIRECTOR CHECK Cytology (12/24/2014 12:00 AM BUSINESS SALES CONSULTANT) Specimen (Source) Anatomical Location Collection Method / Collectio n Time Received Time / Laterality Volume 12/24/2014 Narrative [facility] LAB - 01/04/2015 1:36 PM BUSINESS SALES CONSULTANT [facility] [place] [address] [place], [place] ??[address] Patient Name: WENDI ALEXANDER Patient ID #: [id number] Collected: 12/24/2014 Address: [facility]/State/Zip: [address] [place], [place] ??[id number] Received: Reported: 12/28/2014 01/04/2015 Soc. Sec. #: ?/Age/Sex 1985 (Age: 29) ??F Physician(s): BECKY HANKINS CNP Copy To: ? [facility] ??[id number] [address] [facility], ??[place] ??[address] CYTOPATHOLOGY DIRECTOR CHECK REPORT FINAL CYTOLOGIC DIAGNOSIS Pap Smear - ThinPrep: NEGATIVE FOR INTRAEPITHELIAL LESION OR MALIGNANCY ENDOCERVICAL CELLS/COMPONENT PRESENT. PREDOMINANCE OF COCCOBACILLI CONSISTENT WITH SHIFT IN VAGINAL ROSE (POSSIBLE BACTERIAL VAGINOSIS -- CLINICAL CORRELATION SUGGESTED). SATISFACTORY SPECIMEN FOR EVALUATION. Electronically Signed Out By dls/01/04/2015 JANES [facility] CT(ASCP) The Pap test is a screening [...]
--- OUTSIDE RECORDS SUMMARY | 2021-12-09 13:25 | XMS_ITS | Encounter Summary ---
:1985 Author Organization [facility] Address [address] [place] [address] Care Team Providers Name Role Phone Unavailable Primary Care Provider Unavailable Encounter Details Date Type Department Care Team Description 08/19/2013 Hospital Encounter HX NO MAPPING Jef Casiano Jr., M.D. [address] [place], [place] [address] (Wo rk) Social History [...] How often do you attend taoist or christian Never 01/31/2019 services? 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/2018 2:20 PM CLOTH WASHER BACK TENDER documented as of this encounter Plan of Treatment Not on filedocumented as of this encounter Visit Diagnoses Not on filedocumented in this encounter Additional Health Concerns Assessment Noted Time PHQ-9 Depression Total Score: 18 06/21/2009 11:24 AM C DT documented as of this encounter
--- OUTSIDE RECORDS SUMMARY | 2021-12-09 13:25 | XMS_ITS | Encounter Summary ---
:1985 Author Organization [facility] Address [address] [place] [address] Care Team Providers Name Role Phone Unavailable Primary Care Provider Unavailable Encounter Details Date Type Department Care Team Description 12/30/2012 Hospital Encounter HX [facility] Gurmeet Robertson Jr., M.D. [address], [place] [address] (Wo rk) Social History [...] How often do you attend yazidism or anabaptist Never 01/31/2019 services? 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/2018 2:20 PM PLUM PACKER documented as of this encounter Last Filed Vital Signs Vital Sign Reading Time Taken Comments Blood Pressure 104/62 12/30/2012 3:14 PM PLUM PACKER Pulse 87 12/30/2012 3:14 PM PLUM PACKER Temperature - - Respiratory Rate - - Oxygen Saturation - - Inhaled Oxygen Concentration - - Weight 60.4 kg (133 lb 2.5 oz) 12/30/2012 3:14 PM PLUM PACKER Height - - Body Mass Index 24.19 02/12/2012 1:41 PM PLUM PACKER documented in this encounter Progress Notes Gurmeet Gomez Jr., M.D. - 12/30/2012 3:08 PM CST [id number] CHIEF COMPLAINT/REASON FOR VISIT Back pain and [...] behalf by Latanya Murray, a trained medical service technician. The creation of this record is based on the scribe's personal observations and the provider's statements to them. This document has been ch ecked and approved by the attending provider. Gurmeet Gomez M.D./dilip Electronically Signed By: GURMEET GOMEZ MD On: 01/02/2013 03:16 PM Source: [facility] MHSDOLBEYNONRADSYS Document Id: [id number] PACKER documented in this encounter Miscellaneous Notes Miscellaneous - Gurmeet Gomez Jr., M.D. - 12/30/2012 3:37 PM CST Ambulatory Patient Summary [facility] [address] [place] [address] Visit Information Name: WENDI ODONNELL [facility] Number: [id number] Current Date: 12/30/2012 15:37:39 Physicians [...] appointment detail needed. Your Goals/Additional instructions: Source: [facility] POWERCHART Document Id: [id number] PACKER Miscellaneous - Gurmeet Gomez Jr., M.D. - 12/30/2012 3:37 PM CST [place] [address] Visit Information Name: WENDI ODONNELL [facility] Number: [id number] Visit Date: 12/30/2012 15:37:38 Attending [...] your provider for clarification. Additional Information: Source: [facility] [employer] Document Id: [id number] PACKER Miscellaneous - Chika Napier RGordonNGordon - 12/30/2012 3:14 PM CST Adult Nitro Man Intake/History Adult Nitro Man Intake/History Entered On: 12/30/2012 15:16 PLUM PACKER Performed On: 12/30/2012 15:14 PLUM PACKER by CHIKA ELUNG Intake Chief Complaint : control consult LMP [...] 60.4 kg CHIKA LEUNG - 12/30/2012 15:14 PLUM PACKER General Info Languages : Gabonese CHIKA LEUNG - 12/30/2012 15:14 PLUM PACKER Subjective Pain Symptoms : No CHIKA LEUNG - 12/30/2012 15:14 PLUM PACKER Dependent Habits Tobacco Use/Currently Using : No Smoking Status : Unknown if ever smoke CHIKA LEUNG - 12/30/2012 15:14 PLUM PACKER Caffeine Use Grid Caffeine Use : Current Type : Energy drinks Frequency : Weekly Amount : 1 CHIKA LEUNG - 12/30/2012 15:14 PLUM PACKER [facility] Document Id: [id number] PLUM PACKER!25 PACKER documented in this encounter Plan of Treatment Not on filedocumented as of this encounter Visit Diagnoses Not on filedocumented in this encounter Additional Health Concerns Assessment Noted Time PHQ-9 Depression Total Score: 18 06/21/2009 11:24 AM C DT documented as of this encounter
--- OUTSIDE RECORDS SUMMARY | 2021-12-09 13:25 | XMS_ITS | Encounter Summary ---
:1985 Author Organization [facility] Address [address] [place] [address] Care Team Providers Name Role Phone Unavailable Primary Care Provider Unavailable Encounter Details Date Type Department Care Team Description 08/14/2013 Hospital Encounter HX [facility] Emily Robertson Jr., M.D. [address], [place] [phone] (Wo rk) Social History [...] How often do you attend episcopalian or worship Never 01/31/2019 services? Do you [...] Date Recorded Female 01/11/2018 2:20 PM CLINICAL BUSINESS ANALYST documented as of this encounter Last [...] Jr., M.D. - 08/14/2013 10:13 AM CDT [id number] CHIEF COMPLAINT/REASON FOR VISIT OB transfer of care, per Liseth Perry CNP. HISTORY OF PRESENT ILLNESS Wendi is 28-year-old 6, para 2-0-3-2 female at unknown gestational age who presents to the clinic for OB transfer of care, per Liseth Perry CNP. She had confirmation at [facility] on 07/24/2013 and they estimated that she [...] status. She was also previously seen at [facility] approximately 2 weeks ago for heavy vaginal bleeding and clotting. She did have RhoGAM administered at that time. Bleeding has since resolved, but she is still having some abdominal cramping. Wendi believes that she has had routine labs done at [facility], but she has not had any previous [...] or fever. She did receive RhoGAM at [facility] 2 weeks ago. The possibility of [...] behalf by Latanya Murray, a trained medical orderly. The creation of this record is based on the scribe's personal observations and the provider's statements to them. This document has been ch ecked and approved by the attending provider. Emily Gomez M.D./diilp Electronically Signed By: EMILY GOMEZ MD On: 08/14/2013 02:21 PM Source: [facility] MHSDOLBEYNONRADSYS Document Id: [id number] documented in this encounter Miscellaneous Notes Miscellaneous - Emily Gomez Jr., M.D. - 08/14/2013 11:20 AM CDT Ambulatory Patient Summary [address] [id number] Visit Information Name: WENDI ODONNELL [facility] Number: [id number] Current Date: 08/14/2013 11:20:02 Physicians [...] appointment detail needed. Your Goals/Additional instructions: Source: [facility] POWERCHART Document Id: [id number] Miscellaneous - Emily Gomez Jr., M.D. - 08/14/2013 11:20 AM CDT Ambulatory Discharge Medication List [address] [id number] Visit Information Name: WENDI ODONNELL [facility] Number: [id number] Visit Date: 08/14/2013 11:20:00 Attending [...] case of emergency. Electronically Signed By: EMILY GOEMZ MD Signed On:14-AUG-2013 11:19:38 Additional Information: Source: [facility] POWERCHART Document Id: [id number] Miscellaneous - Adán Ward L.P.N. - 08/14/2013 10:51 AM CDT Adult Bank Teller Machine Mechanic Intake/History Adult Bank Teller Machine Mechanic Intake/History Entered On: 08/14/2013 10:53 CDT Performed [...] Preferred Communication Mode : Verbal Languages : Belarusian ADÁN WARD LPN - 08/14/2013 10:51 CDT Subjective Pain Symptoms : Yes ADÁN WARD LPN - 08/14/2013 10:51 CDT Pain Pain Assessment Grid Pain 1 Location : Abdomen (Comment: cramps [ADÁN WARD LPN - 08/14/2013 10:51 CDT] ) Laterality : Bilateral ADÁN WARD LPN - 08/14/2013 10:51 CDT Dependent Habits Tobacco Use/Currently Using : No Smoking Status : Never smoker ADÁN WARD Eliel MEDICAL FILE CLERK - 08/14/2013 10:51 CDT Caffeine Use Grid Caffeine Use : Current Type : Energy drinks Frequency : Weekly Amount : 1 ADÁN WARD Eliel BARTON - 08/14/2013 10:51 CDT [facility] Document Id: [id number]!35 documented in this encounter Plan of [...] athologist Signature HXN gonor Amp Negative POWERCHART DNA-[place] Specimen (Source) Anatomical Collection Method Collection Time Re ceived Time Location / / Volume Laterality 08/14/2013 11:30 AM CDT Narrative POWERCHART - 08/16/2013 8:35 PM CDT Test Performed by: [place] [address] Open Hearth Furnace Operator: Delano bella, IIIOlu Emily Gomez Jr., M.D. LAB HISTORICAL ORDERS Performing Organization Address City/State/ZIP Code Phon e Number POWERCHART HX-N gonor Amp Src (08/14/2013 11:30 AM CDT) athologist Signature HXN gonor Amp Urine POWERCHART Src-[place] Specimen (Source) Anatomical Collection Method Collection Time Re ceived Time Location / / Volume Laterality 08/14/2013 11:30 AM CDT Emily Gomez Jr., M.D. LAB HISTORICAL ORDERS Performing Organization Address City/State/ZIP Code Phon e Number POWERCHART HX-C trach Amp RNA (08/14/2013 11:30 AM CDT) [facility] gist Method Time [facility] Chlamydia Negative POWERCHART trachomatis amplified RNA Specimen [...] BANK TEST ORDERABL ES Performing Organization Address City/[facility]/ZIP Code Phon e Number POWERCHART Grouping and Rh-[place] FLIP, see #[id number] (08/14/2013 11:30 AM CDT) [facility] gist Method Time Signature HX Grouping A Negative POWERCHART and Rh Specimen (Source) Anatomical Collection Method Collection Time Re ceived Time Location / / Volume Laterality 08/14/2013 11:30 AM CDT Emily Gomez Jr., M.D. LAB BLOOD BANK TEST ORDERABL ES Performing Organization Address City/[facility]/ZIP Code Phon e Number POWERCHART Automated [...] X109L Erythrocytes 4.50 3.90 - POWERCHART 5.03 H5675I Hemoglobin 13.2 12.0 - POWERCHART 15.5 GDL [...] as a possible source. Test Performed by: [place] [address] Open Hearth Furnace Operator: Delano bella III, M.D. Specimen Anatomical Collection Method Collection Time Receive d Time (Source) Location / / Volume Laterality Blood 08/14/2013 11:30 08/15/2013 AM CDT 10:06 AM CDT Historical Provider LAB BLOOD BANK TEST ORDERABL ES Performing Organization Address City/[facility]/ZIP Code Phon e Number POWERCHART bHCG (Beta-Human Chorionic Gonadotropin), Quantitative (08/14/2013 11:30 AM CDT) [facility] gist Method Time Signature Beta-HCG, Separate POWERCHART Quantitative, Report S Specimen (Source) Anatomical Collection Method Collection Time Re ceived Time Location / / Volume Laterality Blood 08/14/2013 11:30 AM CDT Emily Gomez Jr., M.D. LAB BLOOD ADD-ON Performing Organization Address City/[facility]/ZIP Code Phon e Number POWERCHART Profile II without CBC/Serum (08/14/2013 11:30 AM CDT) athologist Signature HX Rubella Positive POWERCHART IgG-[place] Comment: Results suggest response to immunization or prior exposure to the virus. -- REFERENCE VALUE -- Vaccinated: Positive (>=1.0 AI) Unvaccinated: Negative (<=0.7 AI) Rubella IgG Antibody Index 2.7 POW ERCHART Syphilis IgG Ab, S Negative Negative POWERCHART Comment: No serologic evidence of exposu re to syphilis. HBs Antigen, S Negative Negative POWERCHART Comment: Test Performed by: [facility] [address] [place] [address] Open Hearth Furnace Operator: Delano bella III, M.D. Specimen (Source) [...] 5.0 POWERCHART MIUL Comment: Test Performed by: [facility] [address] [place] [address] Open Hearth Furnace Operator: Delano bella III, M.D. Specimen (Source) [...] HIV-2 DNA/RNA test (FHV2Q). Test Performed by: [facility] [address] [place] [address] Open Hearth Furnace Operator: Delano bella III, M.D. Specimen (Source) Anatomical Collection Method Collection Time Re ceived Time Location / / Volume Laterality Blood 08/14/2013 11:30 AM CDT Emily Gomez Jr., M.D. LAB MICROBIOLOGY - BLOOD ORD ERABLES Performing Organization Address City/[facility] Code Phon e Number POWERCHART [...] within this r hoa. Test Performed by: [place] [id number] Open Hearth Furnace Operator: Delano bella III, M.D. Specimen (Source) Anatomical Collection Method Collection Time Re ceived Time Location / / Volume Laterality Blood 08/14/2013 11:30 AM CDT Emily Gomez Jr., M.D. LAB BLOOD ADD-ON Performing Organization Address City/State/[facility] Code Phon e Number POWERCHART documented in this encounter Visit Diagnoses Not on filedocumented in this encounter Additional Health Concerns Assessment Noted Time PHQ-9 Depression Total Score: 18 06/21/2009 11:24 AM C DT documented as of this encounter
--- OUTSIDE RECORDS SUMMARY | 2021-12-09 13:25 | XMS_ITS | Encounter Summary ---
:1985 Author Organization [facility] Address [address] [place] [address] Care Team Providers Name Role Phone Unavailable Primary Care Provider Unavailable Encounter Details Date Type Department Care Team Description 05/21/2012 Hospital Encounter HX [facility] Shayne Woody M.D. [address] [place], [place] [phone] (Wo rk) Social History [...] often do you attend latter day or catholic Never 01/31/2019 services? 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/2018 2:20 PM TUNG NUT GROWER documented as of this encounter Last Filed [...] Body Mass Index 22.31 02/12/2012 1:41 PM TUNG NUT GROWER documented in this encounter Progress Notes Emmy Shannon M.D. - 05/21/2012 3:15 PM CDT [id number] CHIEF COMPLAINT/REASON FOR VISIT Nausea and abdominal [...] SHANNON MD On: 05/23/2012 01:35 PM Source: [facility] MHSDOLBEYNONRADSYS Document Id: [id number] documented in this encounter Miscellaneous Notes Miscellaneous [...] 05 August 2012 10:03:00 CDT Submitted: Order:hydrocodone-acetaminophen (Mun[place] 5 mg-325 mg oral tablet) 1 tab(s) [...] ) Other: Provider: [facility]: [facility] fax# [phone] # [phone] Name of Medications Needing Refill: Munford 5/325mg tab - called patient, states she has been working a lot of overtime and having incisional pain from lifting at work. 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 - 05/21/2012 4:21 PM CDT [place] [address] Visit Information Name: WENDI ODONNELL [facility] Number: [id number] Visit Date: 05/21/2012 16:21:15 Attending [...] your provider for clarification. Additional Information: Source: [facility] POWERCHART Document Id: [id number] Ori - Emmy Shannon M.D. - 05/21/2012 4:21 PM CDT [place] [address] Visit Information Name: WENDI ODONNELL [facility] Number: [id number] Visit Date: 05/21/2012 16:21:15 Attending [...] your provider for clarification. Additional Information: Source: [facility] POWERCHART Document Id: [id number] Ori - Emmy Shannon M.D. - 05/21/2012 [...] SHANNON MD - 05/21/2012 15:52 CDT Source: [facility] Document Id: [id number] CDT!5 Miscellaneous - Chika Napier RTyler - 05/21/2012 3:23 PM CDT Adult Cloth Examiner Intake/History Adult Cloth Examiner Intake/History Entered On: 05/21/2012 15:24 CDT Performed [...] 05/21/2012 15:23 CDT General Info Languages : Welsh CHIKA LEUNG - 05/21/2012 15:23 CDT Subjective Pain Symptoms : No CHIKA LEUNG - 05/21/2012 15:23 CDT Dependent Habits Tobacco Use/Currently Using : No Smoking Status : Unknown if ever smoke CHIKA LEUNG - 05/21/2012 15:23 CDT Caffeine Use Grid Caffeine Use : Current Type : Energy drinks Frequency : Weekly Amount : 1 CHIKA LEUNG - 05/21/2012 15:23 CDT Source: [facility] Document Id: [id number] CDT!24 documented in this encounter Plan of Treatment Not on filedocumented as of this encounter Visit Diagnoses Not on filedocumented in this encounter Additional Health Concerns Assessment Noted Time PHQ-9 Depression Total Score: 18 06/21/2009 11:24 AM C DT documented as of this encounter
--- OUTSIDE RECORDS SUMMARY | 2021-12-09 13:25 | XMS_ITS | Encounter Summary ---
:1985 Author Organization [facility] Address [address] [place] [address] Care Team Providers Name Role Phone Unavailable Primary Care Provider Unavailable Encounter Details Date Type Department Care Team Description 03/14/2012 Hospital Encounter HX [facility] Shayne Woody M.D. [address], [place] [phone] (Wo rk) Social History [...] How often do you attend buddhist or hoahaoism Never 01/31/2019 services? 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/2018 2:20 PM PRODUCT SAFETY TESTER documented as of this encounter Last Filed Vital Signs Vital Sign Reading Time Taken Comments Blood Pressure 124/68 03/14/2012 5:26 PM PRODUCT SAFETY TESTER Pulse - - Temperature - - Respiratory Rate - - Oxygen Saturation - - Inhaled Oxygen Concentration - - Weight 62.4 kg (137 lb 9.1 oz) 03/14/2012 5:26 PM PRODUCT SAFETY TESTER Height - - Body Mass Index 25 02/12/2012 1:41 PM PRODUCT SAFETY TESTER documented in this encounter Progress Notes Emmy Shannon M.D. - 03/14/2012 5:23 PM CST [id number] CHIEF COMPLAINT/REASON FOR VISIT Severe headache in [...] behalf by Gricel Ron, a trained medical lab director. The creation of this record is based on the scribe's personal observations and the provider's statements to them. This document has been checked and approved by the attending provider. Emmy Shannon M.D./yasemin Electronically Signed By: EMMY SHANNON MD On: 03/15/2012 08:58 AM Modified by and Electronically Signed by: EMMY SHANNON MD On: 03/15/2012 08:58 AM Source: [facility] MHSDOLBEYNONRADSYS Document Id: [id number] UCT SAFETY TESTER documented in this encounter Procedure Notes Conversion, Historical Provider Ser - 03/14/2012 5:36 PM CST Urine Dipstick Urine Dipstick Entered On: 03/14/2012 17:36 PRODUCT SAFETY TESTER Performed On: 03/14/2012 17:36 PRODUCT SAFETY TESTER by ZURDO GONZALEZ Urine Dipstick UA Color POC : Yellow UA Appear POC : Clear UA Protein POC : Trace UA Glucose POC : Negative ZURDO GONZALEZ - 03/14/2012 17:36 PRODUCT SAFETY TESTER Source: [facility] POWERCHART Document Id: [id number] Emmy Shannon M.D. - 03/14/2012 12:00 AM [...] SHANNON MD On: 03/15/2012 08:52 AM Source: [facility] MHSDOLBEYNONRADSYS Document Id: [id number] UCT SAFETY TESTER documented in this encounter Miscellaneous Notes Miscellaneous - Emmy Shannon M.D. - 03/14/2012 7:03 PM CST Ambulatory Patient Summary [facility] [address] [place] [address] Visit Information Name: WENDI ODONNELL [facility] Number: [id number] Visit Date: 03/14/2012 19:03:12 Attending [...] your provider for clarification. Additional Information: Source: [facility] POWERCHART Document Id: [id number] UCT SAFETY TESTER Miscellaneous - Emmy Shannon M.D. - 03/14/2012 7:03 PM CST [place] [address] Visit Information Name: CATHERIEN WENDI LUIS [facility] Number: [id number] Visit Date: 03/14/2012 19:03:11 Attending [...] your provider for clarification. Additional Information: Source: [facility] POWERCHART Document Id: [id number] UCT SAFETY TESTER Miscellaneous - Conversion, Historical Provider Ser - 03/14/2012 5:26 PM PRODUCT SAFETY TESTER Adult Assembler Semiconductor Intake/History Adult Assembler Semiconductor Intake/History Entered On: 03/14/2012 17:28 PRODUCT SAFETY TESTER Performed On: 03/14/2012 17:26 PRODUCT SAFETY TESTER by ZURDO GONZALEZ Chief Complaint : ob visit 37+5 LMP Date : 06-24-11 Systolic Blood Pressure : 124mmHg Diastolic Blood Pressure : 68mmHg NIBP Mean : 87mmHg BP Location : Right upper extremity Blood Pressure Cuff Size : Regular Actual Weight : 62.4kg(Converted to: 137lb 9oz) Dosing Weight Clinic : 62.40kg ZURDO GONZALEZ - 03/14/2012 17:26 PRODUCT SAFETY TESTER Subjective Pain Symptoms : No ZURDO GONZALEZ - 03/14/2012 17:26 PRODUCT SAFETY TESTER Dependent Habits Tobacco Use/Currently Using : No Tobacco Use/Last 12 months : No Smoking Status : Never smoker ZURDO GONZALEZ - 03/14/2012 17:26 PRODUCT SAFETY TESTER Caffeine Use Grid Caffeine Use : Current Type : Energy drinks Frequency : Weekly Amount : 1 ZURDO GONZALEZ - 03/14/2012 17:26 PRODUCT SAFETY TESTER Allergy Allergies (Active) NKA Estimated Onset Date: Unspecified ; Created By: SOTERO COLEMAN LPN; Reaction Status: Active ; Category: Drug ; Substance: NKA ; Type: Allergy ; Updated By: SOTERO COLEMAN LPN; Source: Family ; Reviewed Date: 03/04/2012 10:18 PRODUCT SAFETY TESTER Source: [employer] POWERCHART Document Id: [id number] documented in this encounter Plan of Treatment Not on filedocumented as of this encounter Procedures Procedure Name Priority Date/Time Associated Diagnosis Comme nts HX UA GLUCOSE POC Routine 03/14/2012 5:36 PM Resu lts for this PRODUCT SAFETY TESTER procedure are i n the results section. HX UA APPEAR POC Routine 03/14/2012 5:36 PM Resul ts for this PRODUCT SAFETY TESTER procedure are i n the results section. DIPSTICK, POCT, U Routine 03/14/2012 5:36 PM Resu lts for this (DIPC1) PRODUCT SAFETY TESTER procedure are i n the results section. DIPSTICK, POCT, U Routine 03/14/2012 5:36 PM Resu lts for this (DIPC1) PRODUCT SAFETY TESTER procedure are i n the results section. documented in this encounter Results HX UA GLUCOSE POC (03/14/2012 5:36 PM PRODUCT SAFETY TESTER) P athologist Signature Glucose, POCT, Negative POWERCHART U Specimen (Source) Anatomical Collection Method Collection Time Re ceived Time Location / / Volume Laterality 03/14/2012 5:36 PM PRODUCT SAFETY TESTER Historical Provider LAB HISTORICAL ORDERS Performing Organization Address City/[facility]/ZIP Code Phon e Number POWERCHART Dipstick, POCT, Urine (lab) (03/14/2012 5:36 PM PRODUCT SAFETY TESTER) P athologist Signature Protein, POCT, Trace POWERCHART U Specimen (Source) Anatomical Collection Method Collection Time Re ceived Time Location / / Volume Laterality 03/14/2012 5:36 PM PRODUCT SAFETY TESTER Historical Provider LAB POCT ORDERABLES - DEVICE Performing Organization Address [facility] Phon e Number POWERCHART HX UA APPEAR POC (03/14/2012 5:36 PM PRODUCT SAFETY TESTER) P athologist Signature Appearance Clear POWERCHART Specimen (Source) Anatomical Collection Method Collection Time Re ceived Time Location / / Volume Laterality 03/14/2012 5:36 PM PRODUCT SAFETY TESTER Historical Provider LAB HISTORICAL ORDERS Performing Organization Address [facility] Phon e Number POWERCHART Dipstick, POCT, Urine (lab) (03/14/2012 5:36 PM PRODUCT SAFETY TESTER) P athologist Signature Color Yellow POWERCHART Specimen (Source) Anatomical Collection Method Collection Time Re ceived Time Location / / Volume Laterality 03/14/2012 5:36 PM PRODUCT SAFETY TESTER Historical Provider LAB POCT ORDERABLES - DEVICE Performing Organization Address [facility] Phon e Number POWERCHART documented in this encounter Visit Diagnoses Not on filedocumented in this encounter Additional Health Concerns Assessment Noted Time PHQ-9 Depression Total Score: 18 06/21/2009 11:24 AM C DT documented as of this encounter
--- OUTSIDE RECORDS SUMMARY | 2021-12-09 13:25 | XMS_ITS | Encounter Summary ---
:1985 Author Organization [facility] Address [address] [place] [address] Care Team Providers Name Role Phone Unavailable Primary Care Provider Unavailable Encounter Details Date Type Department Care Team Description 03/22/2012 Hospital Encounter [facility]X [facility] Shayne Woody M.D. [address], [place] [phone] (Wo rk) Social History [...] How often do you attend worship or rastafarian Never 01/31/2019 services? 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/2018 2:20 PM MARINE EQUIPMENT ENGINEER documented as of this encounter Last Filed Vital Signs Vital Sign Reading Time Taken Comments Blood Pressure 120/78 03/22/2012 4:55 PM MARINE EQUIPMENT ENGINEER Pulse - - Temperature - - Respiratory Rate - - Oxygen Saturation - - Inhaled Oxygen Concentration - - Weight 62.8 kg (138 lb 7.2 oz) 03/22/2012 4:55 PM MARINE EQUIPMENT ENGINEER Height - - Body Mass Index 25.16 02/12/2012 1:41 PM MARINE EQUIPMENT ENGINEER documented in this encounter Progress Notes Emmy Shannon M.D. - 03/22/2012 4:43 PM CST [id number] Non stress test Patient name :Wendi Odonnell Date of service: 03/22/12 Gestational age: 38 and 6 weeks Diagnosis: Decreased movement Indication for test: Decreased movement Non stress test shows heart rate baseline of 150bpm, moderate variability, no decelerations. Interpretation is reactive / reassuring with good variability and accelerations Follow up in 1 week for OB check Emmy Shannon M.D./yasemin DOCID: [id number] Electronically Signed By: EMMY SHANNON MD On: 03/22/2012 05:51 PM Source: [facility] MHSDOLBEYNONRADSYS Document Id: [id number] NE EQUIPMENT ENGINEER documented in this encounter Consult Notes Emmy Shannon M.D. - 03/22/2012 4:43 PM CST [id number] CHIEF COMPLAINT/REASON FOR VISIT OB followup HISTORY [...] behalf by Gricel Ron, a trained medical dir. The creation of this record is based on the scribe's personal observations and the provider's statements to them. This document has been checked and approved by the attending provider. Emmy Shannon M.D./yasemin DOCID: [id number] Electronically Signed By: EMMY SHANNON MD On: 03/22/2012 05:51 PM Source: [facility] MHSDOLBEYNONRADSYS Document Id: [id number] NE EQUIPMENT ENGINEER documented in this encounter Miscellaneous Notes Miscellaneous - Emmy Shannon M.D. - 03/22/2012 5:50 PM CST [place] [address] Visit Information Name: WENDI ODONNELL [facility] Number: [phone] Visit Date: 03/22/2012 17:50:21 Attending [...] your provider for clarification. Additional Information: Source: [facility] POWERCHART Document Id: [id number] NE EQUIPMENT ENGINEER Miscellaneous - Emmy Shannon M.D. - 03/22/2012 5:50 PM CST [place] [address] Visit Information Name: WENDI ODONNELL [facility] Number: [phone] Visit Date: 03/22/2012 17:50:21 Attending [...] your provider for clarification. Additional Information: Source: [facility] POWERCHART Document Id: [id number] NE EQUIPMENT ENGINEER Miscellaneous - Conversion, Historical Provider Ser - 03/22/2012 4:55 PM MARINE EQUIPMENT ENGINEER Adult Section Crews Activities Clerk Intake/History Adult Section Crews Activities Clerk Intake/History Entered On: 03/22/2012 16:56 MARINE EQUIPMENT ENGINEER Performed On: 03/22/2012 16:55 MARINE EQUIPMENT ENGINEER by ZURDO GONZALEZ Intake Chief Complaint : ob visit 38+6 LMP Date : 06-24-11 Systolic Blood Pressure : 120mmHg Diastolic Blood Pressure : 78mmHg NIBP Mean : 92mmHg BP Location : Right upper extremity Blood Pressure Cuff Size : Regular Actual Weight : 62.8kg(Converted to: 138lb 7oz) Dosing Weight Clinic : 62.80kg ZURDO GONZALEZ 03/22/2012 16:55 MARINE EQUIPMENT ENGINEER General Info Information Given By : Patient Languages : Italian ZURDO GONZALEZ 03/22/2012 16:55 MARINE EQUIPMENT ENGINEER Subjective Pain Symptoms : No ZURDO GONZALEZ 03/22/2012 16:55 MARINE EQUIPMENT ENGINEER Dependent Habits Tobacco Use/Currently Using : No Tobacco Use/Last 12 months : No Smoking Status : Never smoker ZURDO GONZALEZ 03/22/2012 16:55 MARINE EQUIPMENT ENGINEER Caffeine Use Grid Caffeine Use : Current Type : Energy drinks Frequency : Weekly Amount : 1 ZURDO GONZALEZ 03/22/2012 16:55 MARINE EQUIPMENT ENGINEER Allergy Allergies (Active) NKA Estimated Onset Date: Unspecified ; Created By: SOTERO COLEMAN LPN; Reaction Status: Active ; Category: Drug ; Substance: NKA ; Type: Allergy ; Updated By: SOTERO COLEMAN LPN; Source: Family ; Reviewed Date: 03/04/2012 10:18 MARINE EQUIPMENT ENGINEER Source: [facility] POWERCHART Document Id: [id number] documented in this encounter Plan of Treatment Not on filedocumented as of this encounter Visit Diagnoses Not on filedocumented in this encounter Additional Health Concerns Assessment Noted Time PHQ-9 Depression Total Score: 18 06/21/2009 11:24 AM C DT documented as of this encounter
--- OUTSIDE RECORDS SUMMARY | 2021-12-09 13:25 | XMS_ITS | Encounter Summary ---
:1985 Author Organization [facility] Address [address] [place] [address] Care Team Providers Name Role Phone Unavailable Primary Care Provider Unavailable Encounter Details Date Type Department Care Team Description 06/21/2009 Hospital Encounter HX [facility] FAMILYPRA Michelle Hankisn, TATY, C.N.P. [address] [place] [address] (Wo rk) Social History Tobacco [...] How often do you attend restorationism or jain Never 01/31/2019 services? 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 - 06/21/2009 12:00 AM CDT [id number] IMPRESSION/REPORT/PLAN 1. Depression. Strongly encouraged her to [...] No suicidality. SJM/clf Signed Michael Hankins, MSN, CONSTRUCTION PROJECT ASSISTANT, CDE Family Nurse Practitioner Electronically Signed By:MICHAEL HANKINS CNP On 06/22/2009 03:42 PM Source: [facility] MHSDOLBEYNONRADSYS Document Id: [id number] documented in this encounter Miscellaneous Notes Miscellaneous - Michael Hankins APRN, C.N.P. - 06/21/2009 11:53 AM CDT Ambulatory Depart Summary [address] [address] Visit Information Name: WENDI ALEXANDER Current Date: [...] to the patient and/or family, guardian/caregiver. Source: [facility]vee Document Id: [id number] Electronically signed by Komal [facility] Marketing Analyst [id number] at 07/17/2016 6:50 AM CDT Miscellaneous - Michael Hankins APRN, C.N.P. - 06/21/2009 11:24 AM CDT PHQ-9 PHQ-9 Entered On: 06/21/2009 11:26 CDT Performed On: 06/21/2009 11:24 CDT by MICHAEL HANKINS CONSTRUCTION PROJECT ASSISTANT PHQ-9 Little interest or pleasure in doing [...] dealing with others: Very difficult MICHAEL HANKINS CONSTRUCTION PROJECT ASSISTANT - 06/21/2009 11:24 CDT Source: [facility] Document Id: [id number] CDT!14 Miscellaneous - Jaquelin Sauceda Provider Ser - 06/21/2009 11:06 AM CDT Adult Tool Liaison Intake/History Document Has Been Updated Adult Tool Liaison Intake/History Entered On: 06/21/2009 11:07 CDT Performed On: 06/21/2009 11:06 CDT by SOTERO COLEMAN LPN Intake Temperature Oral: 37.0DegC(Converted to: 98.6DegF) Chief Complaint: recheck MICHAEL HANKINS CONSTRUCTION PROJECT ASSISTANT - 06/21/2009 11:13 CDT Peripheral Pulse Rate: 80bpm Systolic Blood Pressure: 106mmHg Diastolic Blood Pressure: 60mmHg NIBP Mean: 75mmHg BP Location: Left upper extremity Actual Weight: 50.500kg(Converted to: 111.333lb) Dosing Weight Clinic: 50.50kg SOTERO COLEMAN LPN - 06/21/2009 11:06 CDT Subjective Pain Symptoms: No SOTERO COLEMAN LPN - 06/21/2009 11:06 CDT Dependent Habits Alcohol Use: Yes MICHAEL HANKINS CONSTRUCTION PROJECT ASSISTANT - 06/21/2009 11:13 CDT Caffeine Use Grid [...] High Blood Pressure: Mother, Grandparents MICHAEL HANKINS CONSTRUCTION PROJECT ASSISTANT - 06/21/2009 11:13 CDT Health History II Endocrine/Metabolic Past Med Hx Grid Diabetes: Mother, Grandparents MICHAEL HANKINS [facility] - 06/21/2009 11:13 CDT Psychiatric Past Medical History Grid Depression: Self, Mother, Sibling MICHAEL HANKINS [facility] - 06/21/2009 11:13 CDT Oncologic Past Medical History Grid Prostate Cancer: Grandparents MICHAEL HANKINS [facility] - 06/21/2009 11:13 CDT Source: [facility] POWERCHART Document Id: [id number] CDT!22 documented in this encounter Plan of Treatment Not on filedocumented as of this encounter Visit Diagnoses Not on filedocumented in this encounter Additional Health Concerns Assessment Noted Time PHQ-9 Depression Total Score: 18 06/21/2009 11:24 AM C DT documented as of this encounter
--- OUTSIDE RECORDS SUMMARY | 2021-12-09 13:25 | XMS_ITS | Encounter Summary ---
:1985 Author Organization [facility] Address [address] [place] [address] Care Team Providers Name Role Phone Unavailable Primary Care Provider Unavailable Encounter Details Date Type Department Care Team Description 10/02/2011 Hospital Encounter HX NO MAPPING Lucy Jay M.D. [address] [place], [place] [address] (Wo rk) Social History [...] How often do you attend bahai or scientologist Never 01/31/2019 services? 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
--- OUTSIDE RECORDS SUMMARY | 2021-12-09 13:25 | XMS_ITS | Encounter Summary ---
:1985 Author Organization [facility] Address [address] [place] [address] Care Team Providers Name Role Phone Unavailable Primary Care Provider Unavailable Encounter Details Date Type Department Care Team Description 12/24/2014 Hospital Encounter HX NO MAPPING Kandi Alberts, TATY, C.N.P. [address] [place], [place] [phone] (Wo rk) Social History [...] How often do you attend sabianist or caodaism Never 01/31/2019 services? 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/2018 2:20 PM ARCH SUPPORT MAKER documented as of this encounter Miscellaneous Notes Miscellaneous - Conversion, Historical Provider Ser - 12/24/2014 11:59 PM ARCH SUPPORT MAKER Coding Summary-Paper Based CODING DATE: 01/07/2015 FINAL [facility] STATUS: * Discharged to Home or [...] JOAQUIN Date Saved: 01/07/2015 05:21 pm Source: [employer] Document Id: [id number] documented in this encounter Plan of Treatment Not on filedocumented as of this encounter Visit Diagnoses Not on filedocumented in this encounter Additional Health Concerns Assessment Noted Time PHQ-9 Depression Total Score: 18 12/24/2014 2:32 PM CS T documented as of this encounter
--- OUTSIDE RECORDS SUMMARY | 2021-12-09 13:25 | XMS_ITS | Encounter Summary ---
:1985 Author Organization [facility] Address [address] [place] [address] Care Team Providers Name Role Phone Unavailable Primary Care Provider Unavailable Encounter Details Date Type Department Care Team Description 08/18/2013 Hospital Encounter HX [facility] Gurmeet Robertson Jr., M.D. [address], [place] [phone] (Wo rk) Social History [...] often do you attend jehovah's witness or mandaeism Never 01/31/2019 services? 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 - 08/18/2013 11:13 AM CDT [id number] CHIEF COMPLAINT/REASON FOR VISIT Follow up for vaginal bleeding during . HISTORY OF PRESENT ILLNESS Wendi is 28-year-old 6, para 2-0-3-2 female at unknown gestational age who presents to the clinic for follow up for vaginal bleeding during . Wendi was seen at [facility] ED for heavy vaginalbleeding and [...] negative and she did receive RhoGAM at [facility] ED 2.5 weeks ago. Possible [...] 3. Follow up: Patient will present to [facility] for hysteroscopy with D&C on 08/19/2013. She will returnto the clinic for follow up in 3 weeks. This document serves as a record of services personally performed by Gurmeet Gomez MD. It was created on their behalf by Latanya Murray, a trained medical scheduler. The creation of this record is based on the scribe's personal observations and the provider's statements to them. This document has been ch ecked and approved by the attending provider. Gurmeet Gomez M.D./dilip Electronically Signed By: GURMEET GOMEZ MD On: 08/18/2013 04:03 PM Source: [facility] MHSDOLBEYNONRADSYS Document Id: [id number] documented in this encounter Miscellaneous Notes Miscellaneous [...] GOMEZ MD - 08/18/2013 12:01 CDT Source: [facility] [employer] Document Id: [id number] CDT!6 Miscellaneous - Gurmeet Gomez Jr., M.D. - 08/18/2013 12:00 PM CDT Ambulatory Patient Summary [address] [id number] Visit Information Name: WENDI ODONNELL [facility] Number: [id number] Current Date: 08/18/2013 12:00:49 Physicians [...] at 6 pmon 08/19/13 New Routed to [address] [address] multivitamin, ( Multivitamins with Vitamin B Complex, Vitamin C, Minerals and L-Methylfolate oral capsule) 1 cap, Oral, once a day naproxen (Anaprox-DS 550 mg oral tablet) 1 Tablet(s), Oral, three times a day as needed for pain NewRouted to [address] [address] norgestimate-ethinyl estradiol (Ortho-Cyclen 0.25 mg-35 mcg oral tablet) 1 Tablet(s), Oral, once a day start on 08/20/2013 New Routed to [address] [address] venlafaxine (Effexor 37.5 mg oral tablet) 1 Tablet(s), Oral, two times a day Routed to [address] [address] Stop Taking the Following Medications: fluoxetine (FLUoxetine [...] appointment detail needed. Your Goals/Additional instructions: Source: [facility] POWERCHART Document Id: [id number] Miscellaneous - Gurmeet Gomez Jr., M.D. - 08/18/2013 12:00 PM CDT Ambulatory Discharge Medication List [address] [id number] Visit Information Name: WENDI ODONNELL [facility] Number: [id number] Visit Date: 08/18/2013 12:00:47 Attending [...] at 6 pmon 08/19/13 New Routed to [place] [id number] multivitamin, ( Multivitamins with Vitamin B Complex, Vitamin C, Minerals and L-Methylfolate oral capsule) 1 cap, Oral, once a day naproxen (Anaprox-DS 550 mg oral tablet) 1 Tablet(s), Oral, three times a day as needed for pain NewRouted to [address] [address] norgestimate-ethinyl estradiol (Ortho-Cyclen 0.25 mg-35 mcg oral tablet) 1 Tablet(s), Oral, once a day start on 08/20/2013 New Routed to [address] [address] venlafaxine (Effexor 37.5 mg oral tablet) 1 Tablet(s), Oral, two times a day Routed to [address] [address] Stop Taking the Following Medications: [...] MD Signed On:18-AUG-2013 12:00:44 Additional Information: Source: [facility] POWERCHART Document Id: [id number] Miscellaneous - Chika Napier, RGordonN. - 08/18/2013 11:29 AM CDT Adult Commercial Green Building Designer Intake/History Adult Commercial Green Building Designer Intake/History Entered On: 08/18/2013 11:30 CDT Performed [...] 08/18/2013 11:29 CDT General Info Languages : Wolof CHIKA LEUNG - 08/18/2013 11:29 CDT Subjective Pain Symptoms : No CHIKA LEUNG - 08/18/2013 11:29 CDT Dependent Habits Tobacco Use/Currently Using : No Smoking Status : Unknown if ever smoke CHIKA LEUNG - 08/18/2013 11:29 CDT Caffeine Use Grid Caffeine Use : Current Type : Energy drinks Frequency : Weekly Amount : 1 CHIKA LEUNG - 08/18/2013 11:29 CDT Source: [employer] Document Id: [id number] CDT!26 documented in this encounter Plan of [...] Received Time / Laterality Volume 08/19/2013 Narrative [facility] - 08/24/19 14 9:56 PM CDT PATIENT IMAGES Choose the Image button to view related documents. Historical Provider LAB SURG PATH ORDERABLES Performing Organization Address City/State/ZIP Code Phon e Number [facility] documented in this encounter Visit Diagnoses Not on filedocumented in this encounter Additional Health Concerns Assessment Noted Time PHQ-9 Depression Total Score: 18 06/21/2009 11:24 AM C DT documented as of this encounter
--- OUTSIDE RECORDS SUMMARY | 2021-12-09 13:25 | XMS_ITS | Encounter Summary ---
:1985 Author Organization [facility] Address [address] [place] [address] Care Team Providers Name Role Phone Unavailable [...] How often do you attend mosque or sikh Never 01/31/2019 services? 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/2018 2:20 PM PIANO MOVER documented as of this encounter Plan of Treatment Not on filedocumented as of this encounter Visit Diagnoses Not on filedocumented in this encounter Additional Health Concerns Assessment Noted Time PHQ-9 Depression Total Score: 18 06/21/2009 11:24 AM C DT documented as of this encounter
--- OUTSIDE RECORDS SUMMARY | 2021-12-09 13:25 | XMS_ITS | Encounter Summary ---
:1985 Author Organization [facility] Address [address] [place] [address] Care Team Providers Name Role Phone Unavailable Primary Care Provider Unavailable Encounter Details Date Type Department Care Team Description 03/18/2012 Hospital Encounter HX [facility] Shayne Woody M.D. [address], [place] [phone] (Wo rk) Social History [...] How often do you attend hindu or quaker Never 01/31/2019 services? 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/2018 2:20 PM ROUTING EQUIPMENT TENDER documented as of this encounter Last Filed Vital Signs Vital Sign Reading Time Taken Comments Blood Pressure 112/62 03/18/2012 2:51 PM ROUTING EQUIPMENT TENDER Pulse - - Temperature - - Respiratory Rate - - Oxygen Saturation - - Inhaled Oxygen Concentration - - Weight 62.7 kg (138 lb 3.7 oz) 03/18/2012 2:51 PM ROUTING EQUIPMENT TENDER Height - - Body Mass Index 25.12 02/12/2012 1:41 PM ROUTING EQUIPMENT TENDER documented in this encounter Progress Notes Joy Shannon M.D. - 03/18/2012 2:47 PM CST [id number] CHIEF COMPLAINT/REASON FOR VISIT OB followup HISTORY [...] SHANNON MD On: 03/19/2012 03:28 PM Source: [facility] MHSDOLBEYNONRADSYS Document Id: [id number] ING EQUIPMENT TENDER documented in this encounter Procedure Notes Conversion, Historical Provider Ser - 03/18/2012 2:56 PM CST Urine Dipstick Urine Dipstick Entered On: 03/18/2012 14:56 ROUTING EQUIPMENT TENDER Performed On: 03/18/2012 14:56 ROUTING EQUIPMENT TENDER by LISA, ZURDO A Urine Dipstick UA Color POC : Yellow UA Appear POC : Clear UA Protein POC : Trace UA Glucose POC : Negative ZURDO GONZALEZ - 03/18/2012 14:56 ROUTING EQUIPMENT TENDER Source: [facility] POWERCHART Document Id: [id number] Joy Shannon M.D. - 03/18/2012 12:00 AM [...] SHANNON MD On: 03/19/2012 03:27 PM Source: [facility] MHSDOLBEYNONRADSYS Document Id: [id number] ING EQUIPMENT TENDER documented in this encounter Miscellaneous Notes Miscellaneous - Gertrudis Baltazar R.N. - 03/21/2012 8:39 AM CST Medication Refill Msg Document Contains Addenda Addendum by GERTRUDIS ELLISON on 21 March 2012 10:15:29 ROUTING EQUIPMENT TENDER Called and informed the patient, thanks. Addendum by JOY SHANNON MD on 21 March 2012 09:58:36 ROUTING EQUIPMENT TENDER From: JOY SHANNON MD To: GERTRUDIS ELLISON; Sent: 03/21/2012 09:58:36 ROUTING EQUIPMENT TENDER Subject: RE: Medication Refill Msg She should have 2 more refills of that on the original rx. Addendum by GERTRUDIS ELLISON on 21 March 2012 09:49:53 ROUTING EQUIPMENT TENDER From: GERTRUDIS ELLISON To: JOY SHANNON MD; Sent: 03/21/2012 09:49:53 ROUTING EQUIPMENT TENDER Subject: RE: Medication Refill Msg Pt. stated that she requested the Amoxicillin by accident and she actually meant to request a refillof Vitamins (not on our protocol to fill). Please advise, thank you. Addendum by JOY SHANNON MD on 21 March 2012 09:43:08 ROUTING EQUIPMENT TENDER From: JOY SHANNON MD To: GERTRUDIS ELLISON; Sent: 03/21/2012 09:43:08 ROUTING EQUIPMENT TENDER Subject: RE: Medication Refill Msg I will not refill this rx. The patient's sinusitis should be adequately treated with a 7 day course of antibiotics, which the patient has already had. If her symptoms are still present, she needs to see me. Please inform the patient. From: GERTRUDIS ELLISON To: JOY SHANNON MD; Sent: 03/21/2012 08:39:56 ROUTING EQUIPMENT TENDER Subject: Medication Refill Msg Caller is: ( [...] Call to Pharmacy ( ) Patient will pharmacy picking technician Script ( ) Mail Rx to Patient Source: [facility] POWERCHART Document Id: [id number] Joy Sapp M.D. - 03/18/2012 5:22 PM CST [place] [address] Visit Information Name: WENDI ODONNELL [facility] Number: [id number] Visit Date: 03/18/2012 17:22:08 [...] your provider for clarification. Additional Information: Source: [facility] POWERCHART Document Id: [id number] ING EQUIPMENT TENDER Joy Sapp M.D. - 03/18/2012 5:22 PM C[place] [address] Visit Information Name: WENDI ODONNELL [facility] Number: [id number] Visit Date: 03/18/2012 17:22:09 [...] provider for clarification. Additional Information: Source: [facility] POWERCHART Document Id: [id number] ING EQUIPMENT TENDER Miscellaneous - Conversion, Historical Provider Ser - 03/18/2012 2:51 PM ROUTING EQUIPMENT TENDER Adult Ecommerce Marketing Manager Intake/History Adult Ecommerce Marketing Manager Intake/History Entered On: 03/18/2012 14:52 ROUTING EQUIPMENT TENDER Performed On: 03/18/2012 14:51 ROUTING EQUIPMENT TENDER by ZURDO GONZALEZ Intake Chief Complaint : ob visit 38+2 Systolic Blood Pressure : 112mmHg Diastolic Blood Pressure : 62mmHg NIBP Mean : 79mmHg BP Location : Left upper extremity Blood Pressure Cuff Size : Regular Actual Weight : 62.7kg(Converted to: 138lb 4oz) Dosing Weight Clinic : 62.70kg ZURDO GONZALEZ - 03/18/2012 14:51 ROUTING EQUIPMENT TENDER Subjective Pain Symptoms : No ZURDO GONZALEZ - 03/18/2012 14:51 ROUTING EQUIPMENT TENDER Dependent Habits Tobacco Use/Currently Using : No Tobacco Use/Last 12 months : No Smoking Status : Never smoker ZURDO GONZALEZ - 03/18/2012 14:51 ROUTING EQUIPMENT TENDER Caffeine Use Grid Caffeine Use : Current Type : Energy drinks Frequency : Weekly Amount : 1 ZURDO GONZALEZ - 03/18/2012 14:51 ROUTING EQUIPMENT TENDER Allergy Allergies (Active) NKA Estimated Onset Date: Unspecified ; Created By: SOTERO COLEMAN LPN; Reaction Status: Active ; Category: Drug ; Substance: NKA ; Type: Allergy ; Updated By: SOTERO COLEMAN LPN; Source: Family ; Reviewed Date: 03/04/2012 10:18 ROUTING EQUIPMENT TENDER Source: [facility] POWERCHART Document Id: [id number] documented in this encounter Plan of Treatment Not on filedocumented as of this encounter Procedures Procedure Name Priority Date/Time Associated Diagnosis Comme nts HX UA GLUCOSE POC Routine 03/18/2012 2:56 PM Resu lts for this ROUTING EQUIPMENT TENDER procedure are i n the results section. HX UA APPEAR POC Routine 03/18/2012 2:56 PM Resul ts for this ROUTING EQUIPMENT TENDER procedure are i n the results section. DIPSTICK, POCT, U Routine 03/18/2012 2:56 PM Resu lts for this (DIPC1) ROUTING EQUIPMENT TENDER procedure are i n the results section. DIPSTICK, POCT, U Routine 03/18/2012 2:56 PM Resu lts for this (DIPC1) ROUTING EQUIPMENT TENDER procedure are i n the results section. documented in this encounter Results HX UA GLUCOSE POC (03/18/2012 2:56 PM ROUTING EQUIPMENT TENDER) P athologist Signature Glucose, POCT, Negative POWERCHART U Specimen (Source) Anatomical Collection Method Collection Time Re ceived Time Location / / Volume Laterality 03/18/2012 2:56 PM ROUTING EQUIPMENT TENDER Historical Provider LAB HISTORICAL ORDERS Performing Organization Address City/State/ZIP Code Phon e Number POWERCHART Dipstick, POCT, Urine (lab) (03/18/2012 2:56 PM ROUTING EQUIPMENT TENDER) P athologist Signature Protein, POCT, Trace POWERCHART U Specimen (Source) Anatomical Collection Method Collection Time Re ceived Time Location / / Volume Laterality 03/18/2012 2:56 PM ROUTING EQUIPMENT TENDER Historical Provider LAB POCT ORDERABLES - DEVICE Performing Organization Address City/State/ZIP Code Phon e Number POWERCHART HX UA APPEAR POC (03/18/2012 2:56 PM ROUTING EQUIPMENT TENDER) P athologist Signature Appearance Clear POWERCHART Specimen (Source) Anatomical Collection Method Collection Time Re ceived Time Location / / Volume Laterality 03/18/2012 2:56 PM ROUTING EQUIPMENT TENDER Historical Provider LAB HISTORICAL ORDERS Performing Organization Address City/[facility]/ZIP Code Phon e Number POWERCHART Dipstick, POCT, Urine (lab) (03/18/2012 2:56 PM ROUTING EQUIPMENT TENDER) P athologist Signature Color Yellow POWERCHART Specimen (Source) Anatomical Collection Method Collection Time Re ceived Time Location / / Volume Laterality 03/18/2012 2:56 PM ROUTING EQUIPMENT TENDER Historical Provider LAB POCT ORDERABLES - DEVICE Performing Organization Address [facility] Phon e Number POWERCHART documented in this encounter Visit Diagnoses Not on filedocumented in this encounter Additional Health Concerns Assessment Noted Time PHQ-9 Depression Total Score: 18 06/21/2009 11:24 AM C DT documented as of this encounter
--- OUTSIDE RECORDS SUMMARY | 2021-12-09 13:25 | XMS_ITS | Encounter Summary ---
:1985 Author Organization [facility] Address [address] [place] [address] Care Team Providers Name Role Phone Unavailable Primary Care Provider Unavailable Encounter Details Date Type Department Care Team Description 03/11/2012 Hospital Encounter HX [facility] Shayne Woody M.D. [address] [place], [place] [phone] (Wo rk) Social History [...] How often do you attend zoroastrianism or jainism Never 01/31/2019 services? 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/2018 2:20 PM PRESSER FIRST documented as of this encounter Last Filed Vital Signs Vital Sign Reading Time Taken Comments Blood Pressure 118/64 03/11/2012 3:45 PM PRESSER FIRST Pulse - - Temperature - - Respiratory Rate - - Oxygen Saturation - - Inhaled Oxygen Concentration - - Weight 62.2 kg (137 lb 2 oz) 03/11/2012 3:45 PM PRESSER FIRST Height - - Body Mass Index 24.92 02/12/2012 1:41 PM PRESSER FIRST documented in this encounter Progress Notes Emmy Shannon M.D. - 03/11/2012 3:39 PM CST [id number] CHIEF COMPLAINT/REASON FOR VISIT OB followup HISTORY [...] and is therefore a TOLAC candidate. The [facility] consent form has been signed. She [...] SHANNON MD On: 03/12/2012 04:33 PM Source: [facility] MHSDOLBEYNONRADSYS Document Id: [id number] SER FIRST documented in this encounter Procedure Notes Conversion, Historical Provider Ser - 03/11/2012 5:00 PM CST Urine Dipstick Urine Dipstick Entered On: 03/11/2012 17:00 PRESSER FIRST Performed On: 03/11/2012 17:00 PRESSER FIRST by ZURDO GONZALEZ Urine Dipstick UA Color POC : Yellow UA Appear POC : Clear UA Protein POC : Negative UA Glucose POC : Negative ZURDO GONZALEZ - 03/11/2012 17:00 PRESSER FIRST Source: [facility] Triggit Document Id: [id number] documented in this encounter Miscellaneous Notes Ori - Emmy Shannon M.D. - 03/11/2012 4:25 PM CST Ambulatory Patient Summary [address] [address] Visit Information Name: WENDI ODONNELL [facility] Number: [id number] Visit Date: 03/11/2012 16:25:21 Attending [...] your provider for clarification. Additional Information: Source: [facility] GetyooCHART Document Id: [id number] SER FIRST Ori - Emmy Shannon M.D. - 03/11/2012 4:25 PM CST Ambulatory Depart Summary [address] [id number] Visit Information Name: WENDI ODONNELL [facility] Number: [id number] Visit Date: 03/11/2012 16:25:20 Attending [...] your provider for clarification. Additional Information: Source: [facility] POWERCHART Document Id: [id number] SER FIRST Miscellaneous - Conversion, Historical Provider Ser - 03/11/2012 3:45 PM PRESSER FIRST Adult Drafter Construction Intake/History Adult Drafter Construction Intake/History Entered On: 03/11/2012 15:46 PRESSER FIRST Performed On: 03/11/2012 15:45 PRESSER FIRST by ZURDO GONZALEZ Intake Chief Complaint : ob visit 37+2 LMP Date : 06-24-11 Systolic Blood Pressure : 118mmHg Diastolic Blood Pressure : 64mmHg NIBP Mean : 82mmHg BP Location : Left upper extremity Blood Pressure Cuff Size : Regular Actual Weight : 62.2kg(Converted to: 137lb 2oz) Weight Source : Standing scale Dosing Weight Clinic : 62.20kg ZURDO GONZALEZ - 03/11/2012 15:45 PRESSER FIRST Subjective Pain Symptoms : No ZURDO GONZALEZ - 03/11/2012 15:45 PRESSER FIRST Dependent Habits Tobacco Use/Currently Using : No Tobacco Use/Last 12 months : No Smoking Status : Never smoker ZURDO GONZALEZ - 03/11/2012 15:45 PRESSER FIRST Caffeine Use Grid Caffeine Use : Current Type : Energy drinks Frequency : Weekly Amount : 1 ZURDO GONZALEZ - 03/11/2012 15:45 PRESSER FIRST Allergy Allergies (Active) NKA Estimated Onset Date: Unspecified ; Created By: SOTERO COLEMAN LPN; Reaction Status: Active ; Category: Drug ; Substance: NKA ; Type: Allergy ; Updated By: SOTERO COLEMAN LPN; Source: Family ; Reviewed Date: 03/04/2012 10:18 PRESSER FIRST Source: [facility] POWERCHART Document Id: [id number] documented in this encounter Plan of Treatment Not on filedocumented as of this encounter Procedures Procedure Name Priority Date/Time Associated Diagnosis Comme nts HX UA GLUCOSE POC Routine 03/11/2012 5:00 PM Resu lts for this PRESSER FIRST procedure are i n the results section. HX UA APPEAR POC Routine 03/11/2012 5:00 PM Resul ts for this PRESSER FIRST procedure are i n the results section. DIPSTICK, POCT, U Routine 03/11/2012 5:00 PM Resu lts for this (DIPC1) PRESSER FIRST procedure are i n the results section. DIPSTICK, POCT, U Routine 03/11/2012 5:00 PM Resu lts for this (DIPC1) PRESSER FIRST procedure are i n the results section. documented in this encounter Results HX UA GLUCOSE POC (03/11/2012 5:00 PM PRESSER FIRST) P athologist Signature Glucose, POCT, Negative POWERCHART U Specimen (Source) Anatomical Collection Method Collection Time Re ceived Time Location / / Volume Laterality 03/11/2012 5:00 PM PRESSER FIRST Historical Provider LAB HISTORICAL ORDERS Performing Organization Address City/State/ZIP Code Phon e Number POWERCHART Dipstick, POCT, Urine (lab) (03/11/2012 5:00 PM PRESSER FIRST) P athologist Signature Protein, POCT, Negative POWERCHART U Specimen (Source) Anatomical Collection Method Collection Time Re ceived Time Location / / Volume Laterality 03/11/2012 5:00 PM PRESSER FIRST Historical Provider LAB POCT ORDERABLES - DEVICE Performing Organization Address City/State/ZIP Code Phon e Number POWERCHART HX UA APPEAR POC (03/11/2012 5:00 PM PRESSER FIRST) P athologist Signature Appearance Clear POWERCHART Specimen (Source) Anatomical Collection Method Collection Time Re ceived Time Location / / Volume Laterality 03/11/2012 5:00 PM PRESSER FIRST Historical Provider LAB HISTORICAL ORDERS Performing Organization Address City/State/ZIP Code Phon e Number POWERCHART Dipstick, POCT, Urine (lab) (03/11/2012 5:00 PM PRESSER FIRST) P athologist Signature Color Yellow POWERCHART Specimen (Source) Anatomical Collection Method Collection Time Re ceived Time Location / / Volume Laterality 03/11/2012 5:00 PM PRESSER FIRST Historical Provider LAB POCT ORDERABLES - DEVICE Performing Organization Address [facility] Phon e Number POWERCHART documented in this encounter Visit Diagnoses Not on filedocumented in this encounter Additional Health Concerns Assessment Noted Time PHQ-9 Depression Total Score: 18 06/21/2009 11:24 AM C DT documented as of this encounter
--- OUTSIDE RECORDS SUMMARY | 2021-12-09 13:25 | XMS_ITS | Encounter Summary ---
:1985 Author Organization [facility] Address [address] [place] [address] Care Team Providers Name Role Phone Unavailable Primary Care Provider Unavailable Encounter Details Date Type Department Care Team Description 10/02/2011 Hospital Encounter HX NO MAPPING Kyler Pantoja III, M.D. (Skip), M.P.H. [address] [place], [place] [address] (Wo rk) Social History [...] at Date Recorded Female 01/11/2018 2:20 PM BI CONSULTANT documented as of this encounter Plan of Treatment Not on filedocumented as of this encounter Visit Diagnoses Not on filedocumented in this encounter Additional Health Concerns Assessment Noted Time PHQ-9 Depression Total Score: 18 06/21/2009 11:24 AM C DT documented as of this encounter
--- OUTSIDE RECORDS SUMMARY | 2021-12-09 13:25 | XMS_ITS | Encounter Summary ---
:1985 Author Organization [facility] Address [address] [place] [address] Care Team Providers Name Role Phone Unavailable Primary Care Provider Unavailable Encounter Details Date Type Department Care Team Description 03/04/2012 Hospital Encounter HX [facility] Shayne Woody M.D. [address] [place], [place] [phone] (Wo rk) Social History [...] How often do you attend scientologist or sabianist Never 01/31/2019 services? Do you [...] Recorded Female 01/11/2018 2:20 PM PROFESSOR OF SOCIAL WORK documented as of this encounter Last Filed Vital Signs Vital Sign Reading Time Taken Comments Blood Pressure 102/58 03/04/2012 10:18 AM PROFESSOR OF SOCIAL WORK Pulse - - Temperature - - Respiratory Rate - - Oxygen Saturation - - Inhaled Oxygen Concentration - - Weight 60.8 kg (134 lb 0.6 oz) 03/04/2012 10:18 AM PROFESSOR OF SOCIAL WORK Height - - Body Mass Index 24.35 02/12/2012 1:41 PM PROFESSOR OF SOCIAL WORK documented in this encounter Progress Notes Emmy Shannon M.D. - 03/04/2012 10:11 AM CST [id number] CHIEF COMPLAINT/REASON FOR VISIT OB followup HISTORY [...] SHANNON MD On: 03/05/2012 06:28 PM Source: [facility] MHSDOLBEYNONRADSYS Document Id: [id number] ESSOR OF SOCIAL WORK documented in this encounter Procedure Notes Conversion, Historical Provider Ser - 03/04/2012 10:24 AM CST Urine Dipstick Urine Dipstick Entered On: 03/04/2012 10:24 PROFESSOR OF SOCIAL WORK Performed On: 03/04/2012 10:24 PROFESSOR OF SOCIAL WORK by MARKUS FREDERICK LPN Urine Dipstick UA Protein POC : Trace UA Glucose POC : Negative MARKUS FREDERICK LPN - 03/04/2012 10:24 PROFESSOR OF SOCIAL WORK Source: [facility] POWERCHART Document Id: [id number] documented in this encounter Miscellaneous Notes Miscellaneous - Emmy Shannon M.D. - 03/08/2012 12:17 PM CST Results Notification Document Contains Addenda Addendum by ZURDO GONZALEZ on 08 March 2012 17:06:22 PROFESSOR OF SOCIAL WORK added to chart From: EMMY SHANNON MD To: ZURDO GONZALEZ Sent: 03/08/2012 12:17:30 PROFESSOR OF SOCIAL WORK ! Show up: 03/08/2012 18:17:30 [facility] Subject: Results Notification Actions: Note to Nurse Source: [facility] POWERCHART Document Id: [id number] Emmy Sapp M.D. - 03/04/2012 1:23 PM CST Ambulatory Patient Summary [address] [address] Visit Information Name: WENDI ODONNELL [facility] Number: [id number] Visit Date: 03/04/2012 13:23:51 Attending [...] your provider for clarification. Additional Information: Source: [facility] POWERCHART Document Id: [id number] ESSOR OF SOCIAL WORK Emmy Sapp M.D. - 03/04/2012 1:23 PM CST Ambulatory Depart Summary [address] [address] Visit Information Name: WENDI ODONNELL [facility] Number: [id number] Visit Date: 03/04/2012 13:23:50 Attending [...] your provider for clarification. Additional Information: Source: [facility] POWERCHART Document Id: [id number] ESSOR OF SOCIAL WORK Miscellaneous - Conversion, Historical Provider Ser - 03/04/2012 10:18 AM PROFESSOR OF SOCIAL WORK Adult Rn Ed Intake/History Adult Rn Ed Intake/History Entered On: 03/04/2012 10:19 PROFESSOR OF SOCIAL WORK Performed On: 03/04/2012 10:18 PROFESSOR OF SOCIAL WORK by MARKUS FREDERICK LPN Intake Chief Complaint [...] 60.80kg MARKUS FREDERICK LPN - 03/04/2012 10:18 PROFESSOR OF SOCIAL WORK Subjective Pain Symptoms : No MARKUS FREDERICK LPN - 03/04/2012 10:18 PROFESSOR OF SOCIAL WORK Dependent Habits Tobacco Use/Currently Using : No Smoking Status : Unknown if ever smoke MARKUS FREDERICK LPN - 03/04/2012 10:18 PROFESSOR OF SOCIAL WORK Caffeine Use Grid Caffeine Use : Current Type : Energy drinks Frequency : Weekly Amount : 1 MARKUS FREDERICK MICK - 03/04/2012 10:18 PROFESSOR OF SOCIAL WORK Allergy Allergies (Active) NKA Estimated Onset Date: Unspecified ; Created By: SOTERO COLEMAN LPN; Reaction Status: Active ; Category: Drug ; Substance: NKA ; Type: Allergy ; Updated By: SOTERO COLEMAN LPN; Source: Family ; Reviewed Date: 03/04/2012 10:18 PROFESSOR OF SOCIAL WORK Source: [facility] POWERCHART Document Id: [id number] documented in this encounter Plan of Treatment Not on filedocumented as of this encounter Procedures Procedure Name Priority Date/Time Associated Diagnosis Comme nts GRP B STREP (S. Routine 03/04/2012 10:50 AM Resul ts for this AGALACTIAE) CULTURE PROFESSOR OF SOCIAL WORK procedur e are in the results section. BACTERIAL CULTURE, Routine 03/04/2012 10:50 AM Re sults for this AEROBIC, URINE PROFESSOR OF SOCIAL WORK procedure are in the results section. HX UA GLUCOSE POC Routine 03/04/2012 10:24 AM Res ults for this PROFESSOR OF SOCIAL WORK procedure are i n the results section. HX UA GLUCOSE POC Routine 03/04/2012 10:24 AM Res ults for this PROFESSOR OF SOCIAL WORK procedure are i n the results section. DIPSTICK, POCT, U Routine 03/04/2012 10:24 AM Res ults for this (DIPC1) PROFESSOR OF SOCIAL WORK procedure are i n the results section. DIPSTICK, POCT, U Routine 03/04/2012 10:24 AM Res ults for this (DIPC1) PROFESSOR OF SOCIAL WORK procedure are i n the results section. documented in this encounter Results Bacterial Culture, Aerobic, Urine (03/04/2012 10:50 AM PROFESSOR OF SOCIAL WORK) [facility] gist Method Time Signature Bacterial POWERCHART Culture, Aerobic, Urine HXFinal See POWERCHART scanned/paper report. Test performed at [facility]. Specimen (Source) Anatomical Collection Method Collection Time Re ceived Time Location / / Volume Laterality Urine, Clean 03/04/2012 10:50 Catch AM PROFESSOR OF SOCIAL WORK Emmy Shannon M.D. LAB MICROBIOLOGY - GENERAL O RDERABLES Performing Organization Address City/State/ZIP Code Phon e Number POWERCHART Grp B Strep (S. Agalactiae) Culture (03/04/2012 10:50 AM PROFESSOR OF SOCIAL WORK) Patholo gist Method Time Signature Grp B Strep POWERCHART (S. agalactiae) Culture HXFinal See POWERCHART scanned/paper report. Test performed at [facility]. Specimen (Source) Anatomical Collection Method Collection Time Re ceived Time Location / / Volume Laterality Vaginal/Rectum 03/04/2012 10:50 AM PROFESSOR OF SOCIAL WORK mEmy Shannon M.D. LAB MICROBIOLOGY - GENERAL O RDERABLES Performing Organization Address City/State/ZIP Code Phon e Number POWERCHART HX UA GLUCOSE POC (03/04/2012 10:24 AM PROFESSOR OF SOCIAL WORK) P athologist Signature Glucose, POCT, Negative POWERCHART U Specimen (Source) Anatomical Collection Method Collection Time Re ceived Time Location / / Volume Laterality 03/04/2012 10:24 AM PROFESSOR OF SOCIAL WORK Historical Provider LAB HISTORICAL ORDERS Performing Organization Address [facility] Code Phon e Number POWERCHART Dipstick, POCT, Urine (lab) (03/04/2012 10:24 AM PROFESSOR OF SOCIAL WORK) P athologist Signature Protein, POCT, Trace POWERCHART U Specimen (Source) Anatomical Collection Method Collection Time Re ceived Time Location / / Volume Laterality 03/04/2012 10:24 AM PROFESSOR OF SOCIAL WORK Historical Provider LAB POCT ORDERABLES - DEVICE Performing Organization Address [facility] Code Phon e Number POWERCHART HX UA GLUCOSE POC (03/04/2012 10:24 AM PROFESSOR OF SOCIAL WORK) P athologist Signature Glucose, POCT, Negative POWERCHART U Specimen (Source) Anatomical Collection Method Collection Time Re ceived Time Location / / Volume Laterality 03/04/2012 10:24 AM PROFESSOR OF SOCIAL WORK Historical Provider LAB HISTORICAL ORDERS Performing Organization Address City/State/ZIP Code Phon e Number POWERCHART Dipstick, POCT, Urine (lab) (03/04/2012 10:24 AM PROFESSOR OF SOCIAL WORK) P athologist Signature Protein, POCT, Trace POWERCHART U Specimen (Source) Anatomical Collection Method Collection Time Re ceived Time Location / / Volume Laterality 03/04/2012 10:24 AM PROFESSOR OF SOCIAL WORK Historical Provider LAB POCT ORDERABLES - DEVICE Performing Organization Address City/State/ZIP Code Phon e Number POWERCHART documented in this encounter Visit Diagnoses Not on filedocumented in this encounter Additional Health Concerns Assessment Noted Time PHQ-9 Depression Total Score: 18 06/21/2009 11:24 AM C DT documented as of this encounter
--- OUTSIDE RECORDS SUMMARY | 2021-12-09 13:25 | XMS_ITS | Encounter Summary ---
:1985 Author Organization [facility] Address [address] [place] [address] Care Team Providers Name Role Phone Unavailable Primary Care Provider Unavailable Encounter Details Date Type Department Care Team Description 09/14/2009 Hospital Encounter HX [facility] Navi Major M.D. [address], [place] [address] (Wo rk) Social History Tobacco [...] How often do you attend yazidi or yazidism Never 01/31/2019 services? 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/2018 2:20 PM LEAF SIZE PICKER documented as of this encounter Progress Notes Uche Barakat M.D. - 09/14/2009 12:00 AM CDT [id number] IMPRESSION/REPORT/PLAN We will have her back in [...] BARAKAT MD On 09/27/2009 01:19 PM Source: [facility] MHSDOLBEYNONRADSYS Document Id: [id number] documented in this encounter Miscellaneous Notes Miscellaneous - Uche Barakat M.D. - 09/14/2009 2:06 PM CD[phone] Visit Information Name: WILBERTHimaWENDI Current Date: 09/14/2009 14:06:58 Primary Care Provider: MICHAEL HANKINS [facility] [id number] WNEDI ALEXANDER has been given the following list [...] to the patient and/or family, guardian/caregiver. Source: [facility] POWERCHART Document Id: [id number] Electronically signed by Komal [facility] Electrodynamicist [id number] at 07/17/2016 1:30 AM CDT Miscellaneous - Annabelle Godoy L.P.N. - 09/14/2009 2:00 PM CDT Reminder Msg Document Contains Addenda Addendum by ANNABELLE GODOY LPN on 13 January 2010 13:40:13 LEAF SIZE PICKER card sent From: ANNABELLE GODOY LPN To: ANNABELLE GODOY LPN; Sent: 09/14/2009 14:00:35 CDT Show up: 01/12/2010 14:00:00 LEAF SIZE PICKER Subject: Reminder Msg Due Date/Time: 02/25/2010 14:00:00 LEAF SIZE PICKER Please Remember to: send card to remind pt. to come in for 6 month recheck -pap PATIENT: last pap was 08/25/2009 ( ) Call Patient ( ) Ask Patient to ( ) ( ) Call Relative ( ) Schedule Patient ( ) ( ) Call for Etl Developer ( ) Follow up on Results ( ) Other: PROVIDER: ( ) Call Physician ( ) Call Pharmacist ( ) Call Lab ( ) Other: Special Instructions: Comments: Source: [facility] POWERCHART Document Id: [id number] Electronically signed by Komal [facility] Electrodynamicist [id number] at 07/17/2016 1:30 AM CDT Miscellaneous - Annabelle Godoy L.P.N. - 09/14/2009 1:28 PM CDT Adult Risk Management Analyst Intake/History Adult Risk Management Analyst Intake/History Entered On: 09/14/2009 13:29 CDT Performed [...] ; Reviewed Date: 08/25/2009 9:32 CDT Source: [facility] FlowPay Document Id: [id number] documented in this encounter Plan of Treatment Not on filedocumented as of this encounter Visit Diagnoses Not on filedocumented in this encounter Additional Health Concerns Assessment Noted Time PHQ-9 Depression Total Score: 18 06/21/2009 11:24 AM C DT documented as of this encounter
--- OUTSIDE RECORDS SUMMARY | 2021-12-09 13:27 | XMS_ITS | Clinical Summary ---
:1985 Author Organization [facility] [place] [address] Care Team Providers Name Role Phone Luis A Lewis MD Primary Care Provider [phone] Ying Harris MD Unavailable Allergies Active [...] Acne. Phenyleph-Shark Apply topically to 0 Active Lne-Ffku-Bkw affected area(s). (HEMORRHOIDAL) crea Apply to face [...] 0.6 oz pure alcoho l) EtOH abuse [id number] Alcohol Habits Answer Date Recorded How often do you have a drink containing alcohol? Not asked How many drinks containing alcohol do you have on Not asked a typical day when you are drinking? How often do you have six or more drinks on one Not asked occasion? Comment: EtOH abuse [phone] 12/05/2011 Sex Assigned at Date Recorded Not [...] Completed 06/30/2011 Medical Devices Implanted Type Area Benzol Still Operator Device Shelf Model / Identifier Expiration Date Ser ial / Lot Tha Lmbr 40x5.5mm Vitality Cvd Titut - [id number] Spine [employer] [id number]# / Implanted: Qty: 2 on 12/18/2018 by Olegario Sweeney MD at [facility] Spine / Results Not on filefrom Last 3 Months Insurance Payer Benefit Plan / Subscriber ID Effective Phone Address T ype Group Dates WC WORKERS WC WORKERS [id number]-Pres [phone] HADDO NSTONE COMP COMP ent [address] [place] [address] [facility] [id number] 2013-Prese [address] [place] [address] MEDICA MA MEDICA CHOICE [id number] 2015-Prese [address] [address] [place] [address] [employer] BLUE ADVANTAGE [id number] 2021-[place] [address] [facility] [place] [address] (Home) [place] [address] Wendi Odonnell Workers Comp Self [address] (Home) [place] [address] Wendi Odonnell Motor Vehicle Self [address] (Home) [place] [address] [employer] Employer 02/[address] [place] [address]/Dheeraj (Home) [place] [address] [place] [address] Vold,Wendi L Workers Comp Self 1985 [id number] [place] (Home) [facility] [place] [id number] Advance Directives Latest Code Status on File Code Status Date Activated Date Inactivated Comments Full Code 01/19/2020 8:08 PM 01/20/2020 8:50 PM Code Status Discussion: Not Discussed Full Code 12/18/2018 7:06 PM 12/20/2018 2:29 PM Full Code 08/19/2013 1:33 PM 08/19/2013 6:50 PM Full Code 10/02/2011 7:19 PM 10/05/2011 3:26 PM Care Teams Machine Welder Relationship Specialty Start Date End Date Luis A Lewis PCP - General Family Practice 03/07/21 MD Andrea [address] [place] [address] Ying Harris MD Referring Provider Obstetrics and Gynecology 11/22/21[address] [place] [address]
[2021-12-09 20:38] LABS: Chlamydia DNA Amplified* NOT DETECTED (No Detected); GC DNA Amplified* NOT DETECTED (No Detected)
== END 2021-12-09 13:16 | disposition home or self-care (01) ==
PROVIDERS: PCP Family Medicine; Visit Provider Obstetrics & Gynecology
DX: Z34.91 Encounter for supervision of normal pregnancy, unspecified, first trimester (principal); Z3A.08 8 weeks gestation of pregnancy
CPT/HCPCS: 87491; 87591

== ENCOUNTER 2022-01-11 09:33 | Outpatient (CLI) | payer BC, SELFPAY ==
--- OUTSIDE RECORDS SUMMARY | 2022-01-11 09:41 | XMS_ITS | Encounter Summary ---
:1985 Author Organization [facility] Address [address] [place] [address] Care Team Providers Name Role Phone Jana Granda M.D. Primary Care Provider Reason for Visit Reason Comments PPD Placement To be read at Iron Encounter Details Date Type Department Care Team Description 08/23/2020 Clinical Support [facility] Test Skin Occupational Meghann Higgins, Tuberculosis Medicine in L.P.N. (Primary Dx) [place], [place] [address] [place] [phone] Social History Tobacco Use Types Packs/Day Years [...] How often do you attend anglican or baptist Never 01/31/2019 services? Do you [...] to pay for the very basics like [employer] hat hard 11/27/2019 food, housing, medical care, [...] at Date Recorded Female 01/11/2018 2:20 PM FIRE CONTROL MECHANIC documented as of this encounter Plan of Treatment Not on filedocumented as of this encounter Visit Diagnoses Diagnosis Test Skin Tuberculosis - Primary documented in this encounter Additional Health Concerns Assessment Noted Time PHQ-9 Depression Total Score: 16 12/09/2019 10:25 AM C DT documented as of this encounter Care Teams Silo Tender Relationship Specialty Start Date End Date Jana Granda M.D. PCP - General 03/25/[address] [place] [address] [place] [phone] documented as of this encounter
--- OUTSIDE RECORDS SUMMARY | 2022-01-11 09:41 | XMS_ITS | Encounter Summary ---
:1985 Author Organization [facility] Address [address] [place] [address] Care Team Providers Name Role Phone Jana Granda M.D. Primary Care Provider Reason for Visit Reason Comments Med Refill Encounter Details Date Type Department Care Team Description 01/11/2021 Refill Department of Obstetrics and Joy Lee, Med Refill Gynecology in [place] [address] [address] [facility] [address] [phone] Social History Tobacco Use Types Packs/Day Years [...] to pay for the very basics like [employer] hat hard 11/27/2019 food, housing, medical care, [...] Date Recorded Female 01/11/2018 2:20 PM ASSOCIATE MERCHANDISE PLANNER documented as of this encounter Miscellaneous Notes Telephone Encounter - Joy Lee M.D. - 01/13/2021 10:57 AM ASSOCIATE MERCHANDISE PLANNER Patient has not been seen recently and likely does not still need to be on iron. We can reassess herblood count and iron levels if she feels like this is something that needs, but her anemia was related to and delivery. CIATE MERCHANDISE PLANNER documented in this encounter Plan of Treatment Not on filedocumented as of this encounter Visit Diagnoses Not on filedocumented in this encounter Additional Health Concerns Assessment Noted Time PHQ-9 Depression Total Score: 16 12/09/2019 10:25 AM C DT documented as of this encounter Care Teams Financial Planner Relationship Specialty Start Date End Date Jana Granda M.D. PCP - General 03/25/[address] [place] [address] [place] [phone] documented as of this encounter
--- OUTSIDE RECORDS SUMMARY | 2022-01-11 09:41 | XMS_ITS | Encounter Summary ---
:1985 Author Organization [facility] Address [address] [place] [address] Care Team Providers Name Role Phone Jana Granda M.D. Primary Care Provider Encounter Details Date Type Department Care Team Description 11/13/2020 Admin Visit Department of Family Medicine, [address] [address] [facility] [phone] Social History Tobacco Use Types Packs/Day Years [...] How often do you attend hinduism or oriental orthodox Never 01/31/2019 services? Do [...] Date Recorded Female 01/11/2018 2:20 PM SENIOR GENETIC COUNSELOR documented as of this encounter Plan of Treatment Not on filedocumented as of this encounter Visit Diagnoses Not on filedocumented in this encounter Additional Health Concerns Infection Onset Date Last Indicated Resolved Time COVID19 Pending 11/12/2020 11/13/2020 11/14/2020 8:49 AM CDT Assessment Noted Time PHQ-9 Depression Total Score: 16 12/09/2019 10:25 AM C DT documented as of this encounter Care Teams Dairy Cattle Farmer Relationship Specialty Start Date End Date Jana Granda M.D. PCP - General 03/25/[address] [place] [address] [place] [phone] documented as of this encounter
--- OUTSIDE RECORDS SUMMARY | 2022-01-11 09:41 | XMS_ITS | Encounter Summary ---
:1985 Author Organization [facility] Address [address] [place] [address] Care Team Providers Name Role Phone Jana Granda M.D. Primary Care Provider Encounter Details Date Type Department Care Team Description 09/13/2021 Orders Only [facility] Anastasiya Pierce M.D. Screening Lipid [address] [facility] [place] [phone] (Wo rk) Social History Tobacco Use [...] How often do you attend mormon or amish Never 01/31/2019 services? 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/2018 2:20 PM VENEER DRIER documented as of this encounter Plan of [...] as of this encounter Care Teams Supervisor Cereal Relationship Specialty Start Date End Date Jana Granda M.D. PCP - General 03/25/[address] [place] [phone] documented as of this encounter
--- OUTSIDE RECORDS SUMMARY | 2022-01-11 09:41 | XMS_ITS | Encounter Summary ---
:1985 Author Organization [facility] Address [address] [place] [address] Care Team Providers Name Role Phone Jana Granda M.D. Primary Care Provider Encounter Details Date Type Department Care Team Description 05/14/2020 Orders Only [facility] PCP [facility] ANNYT Jarvis Laguerre Jr., M.D. [address] [place] [address] [place] [phone] (Wo rk) Social History Tobacco [...] How often do you attend anglican or faith Never 01/31/2019 services? Do you belong to [...] Date Recorded Female 01/11/2018 2:20 PM E COMMERCE MANAGER documented as of this encounter Plan of Treatment Not on filedocumented as of this encounter Visit Diagnoses Not on filedocumented in this encounter Additional Health Concerns Assessment Noted Time PHQ-9 Depression Total Score: 16 12/09/2019 10:25 AM C DT documented as of this encounter Care Teams Store Sales Consultant Relationship Specialty Start Date End Date Jana Granda M.D. PCP - General 03/25/[address] [place] [address] [place] [phone] documented as of this encounter
--- OUTSIDE RECORDS SUMMARY | 2022-01-11 09:41 | XMS_ITS | Encounter Summary ---
:1985 Author Organization [facility] Address [address] [place] [address] Care Team Providers Name Role Phone Jana Granda M.D. Primary Care Provider Encounter Details Date Type Department Care Team Description 11/13/2020 Hospital Encounter Department of Laboratory [place] Mason, Medicine, [facility], in [place], [address] [place], [place] [address] [facility] [address] [place] [address] [phone] Social History Tobacco Use Types Packs/Day Years [...] How often do you attend scientology or sabianist Never 01/31/2019 services? 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/2018 2:20 PM FIELD CROP FARMER documented as of this encounter Medications at [...] documented as of this encounter Care Teams Cart Pusher Relationship Specialty Start Date End Date Jana Granda M.D. PCP - General 03/25/[address] [place] [address] [place] [phone] documented as of this encounter
--- OUTSIDE RECORDS SUMMARY | 2022-01-11 09:41 | XMS_ITS | Encounter Summary ---
:1985 Author Organization [facility] Address [address] [place] [address] Care Team Providers Name Role Phone Jana Granda M.D. Primary Care Provider Reason for Visit Reason Comments COVID Inquiry Encounter Details Date Type Department Care Team Description 11/12/2020 Clinical Communication Department of Jeniffer Cano COVID Inquiry [facility], [facility], [address] [address] [place], [place] [phone] [address] (Work) [phone] Social History Tobacco Use Types Packs/Day Years [...] How often do you attend catholic or caodaism Never 01/31/2019 services? Do you [...] to pay for the very basics like [employer] hat hard 11/27/2019 food, housing, medical care, [...] at Date Recorded Female 01/11/2018 2:20 PM BLOOD BANK CALENDAR CONTROL CLERK documented as of this encounter Miscellaneous Notes Telephone Encounter - Janel Alberto - 11/12/2020 12:16 PM CDT What is the purpose of the call?: Symptomatic (Calling PCP Office) Calling [place] PCP Office What region is the patient calling from? : [place] Have you tested positive for COVID-19 in the last 20 days? : No In the past 14 days are any of the following symptoms new to you and not related to an existing health condition?: New cough, New sore throat, New nausea, New chills, New headache, New myalgias (muscleaches) Because of symptoms, transfer patient to: : [place] COVID Nurse Line (End Screening) Symptom Onset Date of symptom onset: 11/09/20 Testing Recommendation Endpoint Is testing recommended? : Transferred to nursing call line Plan: Endpoint recommendation: Transferred to Nursing/COVID Line/Care Team *Reminder if sending patient for testing in [facility] or [facility], route encounter to the correct testing pool. documented in this encounter Plan of Treatment Not on filedocumented as of this encounter Visit Diagnoses Not on filedocumented in this encounter Additional Health Concerns Assessment Noted Time PHQ-9 Depression Total Score: 16 12/09/2019 10:25 AM C DT documented as of this encounter Care Teams Clock Maker Relationship Specialty Start Date End Date Jana Granda M.D. PCP - General 03/25/[address] [place] [address] [place] [phone] documented as of this encounter
--- OUTSIDE RECORDS SUMMARY | 2022-01-11 09:41 | XMS_ITS | Clinical Summary ---
:1985 Author Organization [facility] Address [address] [place] [address] Care Team Providers Name Role Phone Jana Granda M.D. Primary Care Provider Source Comments Patient records contain information from all sites at [facility]. For routine questions regarding patient records, call [phone] during business hours, M-F 8:00 AM - 5:00 PM Central Time. Record requests for emergency care only can be directed to [phone] at any time.[facility] Allergies Active Allergy Reactions Severity Noted [...] participated in DBT through [facility] in [place], but that stop ped with onset of [...] by Dr. Jacobsen. Borderline Personality Disorder 12/05/2011 Immunizations Name Administration Dates Next Due 4vHPV [...] How often do you attend yarsani or evangelical Never 01/31/2019 services? 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/2018 2:20 PM FINGER BUFFS ASSEMBLER Last Filed Vital Signs Vital Sign Reading Time Taken Comments Blood Pressure 100/60 12/09/2019 10:17 AM CDT Pulse 80 12/09/2019 10:17 AM CDT Temperature 37.1 ??C (98.8 ??F) 11/27/2019 9:34 AM CDT Respiratory Rate 20 12/09/2019 10:17 AM CDT Oxygen Saturation 98% 04/17/2018 1:25 PM FINGER BUFFS ASSEMBLER Inhaled Oxygen Concentration - - Weight 55.4 kg (122 lb 3.9 oz) 01/14/2020 11:02 AM FINGER BUFFS ASSEMBLER Height 162 cm (5' 3.78) 12/09/2019 10:17 [...] Dates Phone Address Type / Group [facility] [id number] 2021-Anthony [phone] [address] Medicaid HMO t 5 [place] [address] Care Teams Mold Cleaning And Storage Supervisor Relationship Specialty Start Date End Date Jana Granda M.D. PCP - General 03/25/[address] [place] [address]
--- OUTSIDE RECORDS SUMMARY | 2022-01-11 09:41 | XMS_ITS | Encounter Summary ---
:1985 Author Organization [facility] Address [address] [place] [address] Care Team Providers Name Role Phone Jana Granda M.D. Primary Care Provider Reason for Visit Reason Onset Date Comments Testing For Upper Respiratory Virus Symptoms 04/27/2020 Encounter Details Date Type Department Care Team Description 04/27/2020 External Outreach Department of [facility] Corbin Mason Contact With And Medicine, Juan Alberto Julian D.O. (Suspected) Exposure Building, in [address] [facility] (Primary [place], [place] Dx) [address] [facility] [address] [place], [place] [phone] [address] (Work) [phone] Social History Tobacco Use Types Packs/Day Years [...] How often do you attend faith or hoahaoism Never 01/31/2019 services? Do you [...] to pay for the very basics like mobiDEOSw hat hard 11/27/2019 food, housing, medical care, [...] Date Recorded Female 01/11/2018 2:20 PM MUSEUM REGISTRAR documented as of this encounter Progress Notes [...] documented as of this encounter Care Teams Parking Cashier Relationship Specialty Start Date End Date Jana Granda M.D. PCP - General 03/25/[address] [place] [address] ANNY Garcia [address] documented as of this encounter
--- OUTSIDE RECORDS SUMMARY | 2022-01-11 09:41 | XMS_ITS | Encounter Summary ---
:1985 Author Organization [facility] Address [address] [place] [address] Care Team Providers Name Role Phone Jana Granda M.D. Primary Care Provider Reason for Visit Reason Onset Date Comments Testing For Upper Respiratory Virus Symptoms 11/12/2020 Encounter Details Date Type Department Care Team Description 11/12/2020 External Outreach Department of [facility] Corbin Mason Contact With And Medicine, Juan Alberto Julian D.O. (Suspected) Exposure Building, in [address] COVID-19 (Primary [place], [place] Dx) [address] [facility] [address] [place], [place] [phone] [address] (Work) [phone] Social History Tobacco Use Types Packs/Day Years [...] How often do you attend yazdanism or caodaism Never 01/31/2019 services? Do you [...] to pay for the very basics like Grinbathw hat hard 11/27/2019 food, housing, medical care, [...] at Date Recorded Female 01/11/2018 2:20 PM NARCOTICS DETECTIVE documented as of this encounter Progress Notes [...] RNA, V Symptomatic (11/13/2020 12:25 PM CDT) [facility] Method Time Signature SARS-CoV-2 Swab, 11/14/2020 [...] pe rformed using the Aptima SARS-CoV-2 assay ([employer] on the [employer] tem under emergency use authorization (EUA) by the U.S. Food and Drug Administ ration. Fact sheets for this EUA assay can be fo und at the following links: For Healthcare Providers: https://www.fd a.gov/media/629455/download For Patients: https://www.fda.gov/media/ 642279/download Specimen Anatomical Collection Method Collection Time Receive d Time (Source) Location / / Volume Laterality Varies 11/13/2020 12:25 11/14/2020 (Nasopharynx) PM CDT 12:04 AM CDT Corbin Mason D.O. LAB MICROBIOLOGY - GENERAL O ZAHIRA Performing Organization Address City/State/[facility] Code Phon e Number [facility]- [address] [place] [address] [place] [address] System [address] documented in this encounter Visit Diagnoses Diagnosis Contact With And (Suspected) Exposure To COVID-19 - Primary documented in this encounter Additional Health Concerns Infection Onset Date Last Indicated Resolved Time COVID19 Pending 11/12/2020 11/13/2020 11/14/2020 8:49 AM CDT Assessment Noted Time PHQ-9 Depression Total Score: 16 12/09/2019 10:25 AM C DT documented as of this encounter Care Teams Mid Teacher Relationship Specialty Start Date End Date Jana Granda M.D. PCP - General 03/25/[address] [place] [address] [place] [phone] documented as of this encounter
--- OUTSIDE RECORDS SUMMARY | 2022-01-11 09:41 | XMS_ITS | Encounter Summary ---
:1985 Author Organization [facility] Address [address] [place] [address] Care Team Providers Name Role Phone Jana Granda M.D. Primary Care Provider Encounter Details Date Type Department Care Team Description 04/26/2020 Patient Self-Triage [facility] Symptom Wool Hat Hydraulicker, Provider Social History Tobacco Use Types Packs/Day [...] often do you attend oriental orthodox or cheondoism Never 01/31/2019 services? Do you [...] Date Recorded Female 01/11/2018 2:20 PM CERTIFIED LOW VISION THERAPIST documented as of this encounter Plan of Treatment Not on filedocumented as of this encounter Visit Diagnoses Not on filedocumented in this encounter Additional Health Concerns Assessment Noted Time PHQ-9 Depression Total Score: 16 12/09/2019 10:25 AM C DT documented as of this encounter Care Teams Supervisor Chlorine Liquefaction Relationship Specialty Start Date End Date Jana Granda M.D. PCP - General 03/25/[address] [place], [place] [address] [address] documented as of this encounter
--- OUTSIDE RECORDS SUMMARY | 2022-01-11 09:41 | XMS_ITS | Encounter Summary ---
:1985 Author Organization [facility] Address [address] [place] [address] Care Team Providers Name Role Phone Jana Granda M.D. Primary Care Provider Reason for Referral Outpatient (Routine) - Closed Specialty Diagnoses / Procedures Referred By Contact Refer red To Contact Diagnoses Occupational Health Examination Ermelinda Garcia P.A.-Liliam [facility] Procedures OCC Drug screening [address] [place] [address] Referral ID Status Reason Start Date Expiration Date Visits Requ ested Visits Authorized [id number] Closed 08/23/2020 08/23/2021 1 1 Reason for Visit Reason Comments Drug Screen Appointment Request (Routine) - Closed Specialty Diagnoses / Procedures Referred By Contact Refer red To Contact Occupational Medicine Referral ID Status Reason Start Date Expiration Date Visits Requ ested Visits Authorized [id number] Closed 08/20/2020 08/20/2021 1 1 Encounter Details Date Type Department Care Team Description 08/23/2020 Clinical Support Department of [facility], Occupation al Health Occupational David Lara (Pr imary Medicine in [place] Dx) [place], [place] [address] [place] [phone] Social History Tobacco Use Types Packs/Day Years [...] How often do you attend synagogue or pentecostalism Never 01/31/2019 services? 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/2018 2:20 PM IT GENERALIST documented as of this encounter Plan of [...] documented as of this encounter Care Teams Meters Superintendent Relationship Specialty Start Date End Date Jana Granda M.D. PCP - General 03/25/[address] [place] [address] ANNY Garcia [phone] documented as of this encounter
--- OUTSIDE RECORDS SUMMARY | 2022-01-11 09:41 | XMS_ITS | Encounter Summary ---
:1985 Author Organization [facility] Address [address] [place] [address] Care Team Providers Name Role Phone Jana Granda M.D. Primary Care Provider Reason for Visit Reason Comments COVGERMAN Nurse Line Encounter Details Date Type Department Care Team Description 11/12/2020 Clinical Communication Division of GUILLERMO Tenorio Nurse Mary [facility] Internal Celeste Aguirre R.N., Medicine, [facility], in [address] [place] [phone] [place] [address] [place], [place] (Work) [phone] Social History Tobacco Use Types Packs/Day Years [...] How often do you attend sikh or gnosticism Never 01/31/2019 services? 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/2018 2:20 PM CREDIT RISK MODELER documented as of this encounter Miscellaneous Notes Telephone Encounter - TenorioCeleste R.N., CCRN-K - 11/12/2020 12:25 PM CDT COVID-19 Nurse Line Screening ASSESSMENT Region Select appropriate region: : [place] Age Pathway Select approprite pathway: : Adult [...] swabbed for COVID-19 Only , sent to [facility] located at [address] [place] [address] ([facility]). An appointment is required for testing, please call [phone] Sunday-Sunday 7am to 6pm and Sunday & [...] frequently with soap and water, use hand analog ic design architect if soap and water aren't available. -Wear [...] care: Yes The following references were used: [facility] novel coronavirus (COVID- 19) resources Nursing judgement documented in this encounter Plan of Treatment Not on filedocumented as of this encounter Visit Diagnoses Not on filedocumented in this encounter Additional Health Concerns Assessment Noted Time PHQ-9 Depression Total Score: 16 12/09/2019 10:25 AM C DT documented as of this encounter Care Teams Stain Maker Relationship Specialty Start Date End Date Jana Granda M.D. PCP - General 03/25/[address] [place] [address] documented as of this encounter
--- OUTSIDE RECORDS SUMMARY | 2022-01-11 09:41 | XMS_ITS | Encounter Summary ---
:1985 Author Organization [facility] Address [address] [place] [address] Care Team Providers Name Role Phone Jana Granda M.D. Primary Care Provider Reason for Visit Reason Comments Med Refill Encounter Details Date Type Department Care Team Description 01/23/2021 Refill Department of Obstetrics and Joy Lee, Med Refill Gynecology in Olu Evans [place] [address] [address] [place] [address] [phone] Social History Tobacco Use Types Packs/Day Years [...] How often do you attend sikhism or caodaism Never 01/31/2019 services? Do you [...] to pay for the very basics like [employer] hat hard 11/27/2019 food, housing, medical care, [...] Date Recorded Female 01/11/2018 2:20 PM CAPTAIN ROOM SERVICE documented as of this encounter Plan of Treatment Not on filedocumented as of this encounter Visit Diagnoses Not on filedocumented in this encounter Additional Health Concerns Assessment Noted Time PHQ-9 Depression Total Score: 16 12/09/2019 10:25 AM C DT documented as of this encounter Care Teams Subscription Crew Leader Relationship Specialty Start Date End Date Jana Granda M.D. PCP - General 03/25/[address] [place] [address] Redd ANNY [place] [address] documented as of this encounter
--- OUTSIDE RECORDS SUMMARY | 2022-01-11 09:41 | XMS_ITS | Encounter Summary ---
:1985 Author Organization [facility] Address [address] [place] [address] Care Team Providers Name Role Phone Jana Granda M.D. Primary Care Provider Encounter Details Date Type Department Care Team Description 12/14/2020 Orders Only [facility] Anastasiya Pierce M.D. Screening Lipid [address] [facility] [place] [address] (Wo rk) Social History Tobacco Use [...] How often do you attend restorationism or rastafari Never 01/31/2019 services? 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/2018 2:20 PM PRODUCTION GRIP documented as of this encounter Plan of Treatment Not on filedocumented as of this encounter Visit Diagnoses Diagnosis Screening Lipid documented in this encounter Additional Health Concerns Assessment Noted Time PHQ-9 Depression Total Score: 16 12/09/2019 10:25 AM C DT documented as of this encounter Care Teams Photostatic Copy Maker Relationship Specialty Start Date End Date Jana Granda M.D. PCP - General 03/25/[address] [place] [address] [place] [address] documented as of this encounter
--- OUTSIDE RECORDS SUMMARY | 2022-01-11 09:42 | XMS_ITS | Encounter Summary ---
:1985 Author Organization [facility] Address [address] [place] [address] Care Team Providers Name Role Phone Marisel Ferrer M.D. Primary Care Provider [phone] Encounter Details Date Type Department Care Team Description 11/12/2019 Hospital Encounter Department of [place], Pregnanc y Examination Laboratory Medicine Juana Hamilton Test With Positive in [facility] [address] [place] [address] [phone] Social History Tobacco Use Types Packs/Day Years [...] How often do you attend baptism or hinduism Never 01/31/2019 services? Do you [...] to pay for the very basics like [employer] hat hard 11/27/2019 food, housing, medical care, [...] at Date Recorded Female 01/11/2018 2:20 PM EX ASSISTANT/PROGRAM DIRECTOR documented as of this encounter Medications at [...] supplements. ??If the result does not [facility] clinical observations, repeat testing after patient refrains fr om the use of supplements for at least 12 hours. Specimen Anatomical Collection Method Collection Time Receive d Time (Source) Location / / Volume Laterality Blood (Blood, 11/12/2019 3:59 PM 11/12/19 20 6:13 Venous) CDT PM CDT Joy Lee M.D. LAB BLOOD ADD-ON Performing Organization Address City/State/ZIP Code Phon e Number [facility] [address], [place] [address] [place] [address] System in [place] [address] [facility] documented in this encounter Visit Diagnoses Diagnosis Examination Test With Positive Result (HCC) documented in this encounter Additional Health Concerns Assessment Noted Time PHQ-9 Depression Total Score: 15 09/28/2017 3:51 PM CD T documented as of this encounter Care Teams Tank Wagon Driver Relationship Specialty Start Date End Date Marisel Ferrer M.D. PCP - General Family Medicine 07/11/18 03/24/[address], [place] [address] documented as of this encounter
--- OUTSIDE RECORDS SUMMARY | 2022-01-11 09:42 | XMS_ITS | Encounter Summary ---
:1985 Author Organization [facility] Address [address] [place] [address] Care Team Providers Name Role Phone Marisel Ferrer M.D. Primary Care Provider [phone] Encounter Details Date Type Department Care Team Description 03/21/2019 Hospital Encounter Department of Rauenhorst, Missed (HCC) Laboratory Medicine Juana Hamilton in [address] [address] [phone] Social History Tobacco Use Types Packs/Day Years [...] How often do you attend pentecostalism or oriental orthodox Never 01/31/2019 services? Do [...] at Date Recorded Female 01/11/2018 2:20 PM AIR CONTROL/ANTI AIR WARFARE OFFICER documented as of this encounter Medications at [...] Resul ts for this GONADOTROPIN (HCG), AM AIR CONTROL/ANTI AIR WARFARE OFFICER ([facility]) procedur e are in NAS, the results section. documented in this encounter Results (ABNORMAL) hCG (Human Chorionic Gonadotropin), Quantitative, (03/21/2019 11:47 AM AIR CONTROL/ANTI AIR WARFARE OFFICER) P athologist Signature HCG, 647 (H) <5 IU/L 03/21/2019 OW[place] Quantitative, 1:42 PM AIR CONTROL/ANTI AIR WARFARE OFFICER , P Comment: Biotin has been identified [...] (Blood, 03/21/2019 11:47 03/21/2019 1:04 Venous) AM AIR CONTROL/ANTI AIR WARFARE OFFICER PM AIR CONTROL/ANTI AIR WARFARE OFFICER Joy Lee M.D. LAB BLOOD ADD-ON Performing Organization Address City/State/ZIP Code Phon e Number [facility]- [address] [place] [address] [place] [address] System in [place] [address] documented in this encounter Visit Diagnoses Diagnosis Missed (HCC) documented in this encounter Additional Health Concerns Assessment Noted Time PHQ-9 Depression Total Score: 15 09/28/2017 3:51 PM CD T documented as of this encounter Care Teams Kier Hand Relationship Specialty Start Date End Date Marisel Ferrer M.D. PCP - General Family Medicine 07/11/18 03/24/200 [place] [address] documented as of this encounter
--- OUTSIDE RECORDS SUMMARY | 2022-01-11 09:42 | XMS_ITS | Encounter Summary ---
:1985 Author Organization [facility] Address [address] [place] [address] Care Team Providers Name Role Phone Marisel Ferrer M.D. Primary Care Provider [phone] Reason for Visit Reason Comments Med Refill Encounter Details Date Type Department Care Team Description 03/06/2019 Refill Department of Dermatology in Elsi Resendiz APRN, Med Refill [place], [place] C.N.P., M.S.N. [address] [place] [address] [place] [address] (Wo rk) Social History Tobacco Use Types [...] How often do you attend latter-day or scientologist Never 01/31/2019 services? Do you [...] to pay for the very basics like [employer] hat hard 11/27/2019 food, housing, medical care, [...] Date Recorded Female 01/11/2018 2:20 PM RN CHEMICAL DEPENDENCY documented as of this encounter Miscellaneous Notes Telephone Encounter - Sol Barber R.N. - 03/06/2019 2:16 PM CST Please review CHEMICAL DEPENDENCY Telephone Encounter - Laverne Malave - 03/06/2019 9:04 AM CST Med list states patient is using differently. CHEMICAL DEPENDENCY documented in this encounter Plan of Treatment Not on filedocumented as of this encounter Visit Diagnoses Not on filedocumented in this encounter Additional Health Concerns Assessment Noted Time PHQ-9 Depression Total Score: 15 09/28/2017 3:51 PM CD T documented as of this encounter Care Teams Meat Boner And Slicer Relationship Specialty Start Date End Date Marisel Ferrer M.D. PCP - General Family Medicine 07/11/18 03/24/[address] [address] documented as of this encounter
--- OUTSIDE RECORDS SUMMARY | 2022-01-11 09:42 | XMS_ITS | Encounter Summary ---
:1985 Author Organization [facility] Address [address] [place] [address] Care Team Providers Name Role Phone Marisel Ferrer M.D. Primary Care Provider [phone] Reason for Referral Specialty Diagnoses / Procedures Referred By Contact Refer red To Contact Joy Lee M.D. [facility] [address] [place] [address] Referral ID Status Reason Start Date Expiration Date Visits Requ ested Visits Authorized Scheduling Instructions Schedule for 1 hour - phone visit Reason for Visit Reason Comments Initial Visit confirmation of Outpatient (Routine) - Closed Specialty Diagnoses / Procedures Referred By Contact Refer july To Contact Obstetrics and QIANA Lee [facility] Regio n Gynecology Olu Hamilton [address] [place] [address] Referral ID Status Reason Start Date Expiration Date Visits Requ ested Visits Authorized [id number] Closed 11/11/2019 11/10/2020 1 1 Encounter Details Date Type Department Care Team Description 12/09/2019 Routine Department of Aravind Lee Other Normal First Trimester (Primary Dx); Obstetrics and Olu Hamilton Depression Major; Gynecology in [address] Anxiety Genera lized Disorder; [place], [place] St Pain Foot Left; [address] [place] Pain Low Back Chronic; [facility] [address] Attention Deficit With Hyperactivity Dis order; [phone] Insomnia; Nausea And Vomiting; [phone] Threat ened ; (Fax) Unspecified Blo od [...] How often do you attend denominational or yazidism Never 01/31/2019 services? 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/2018 2:20 PM COMMUNICATIONS ENGINEERING TECHNICIAN documented as of this encounter Last [...] was seeing a physical therapist prior to [facility] and her symptoms had improved. She [...] anyone else. She participated in DBT through [facility] in [place], but that stopped with onset of COVID. She has a provider that she sees regularly through [facility]. She is scheduledto follow with her every other month, and she is able to adjust her meds. PHQ-9 score elevated at 16today. #3 Anxiety Generalized Disorder Overview: Wellbutrin 300 mg SR daily. She stopped prozac 20 mg daily. PHQ-9 score 16 and KEL 7 score 16 today.Plan close follow up of this with the provider she sees through [facility]. #4 Pain Foot Left Overview: Was on [...] will discuss this with her provider at [facility]. #7 Insomnia Overview: She continues to struggle [...] documented as of this encounter Care Teams Chip Frier Relationship Specialty Start Date End Date Marisel Ferrer M.D. PCP - General Family Medicine 07/11/18 03/24/20 [address] [place] [address] documented as of this encounter
--- OUTSIDE RECORDS SUMMARY | 2022-01-11 09:42 | XMS_ITS | Encounter Summary ---
:1985 Author Organization [facility] Address [address] [place] [address] Care Team Providers Name Role Phone Marisel Ferrer M.D. Primary Care Provider [phone] Encounter Details Date Type Department Care Team Description 12/09/2019 Silent Schedule Department of Obstetrics [place], and Gynecology in Olu Hamilton [place], [place] [address] [phone] (Wo rk) Social History Tobacco Use Types [...] How often do you attend rastafarian or sikhism Never 01/31/2019 services? 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/2018 2:20 PM PATTERNMAKER SAMPLE documented as of this encounter Plan of [...] documented as of this encounter Care Teams Coloring Room Man Relationship Specialty Start Date End Date Marisel Ferrer M.D. PCP - General Family Medicine 07/11/18 03/24/20 [address], [place] [address] documented as of this encounter
--- OUTSIDE RECORDS SUMMARY | 2022-01-11 09:42 | XMS_ITS | Encounter Summary ---
:1985 Author Organization [facility] Address [address] [place] [address] Care Team Providers Name Role Phone Marisel Ferrer M.D. Primary Care Provider [phone] Reason for Visit Reason Onset Date Comments PA 03/06/2019 Encounter Details Date Type Department Care Team Description 03/06/2019 Clinical Communication Department of Marylou Urena PA Obstetrics and R.N. Gynecology in [address] [place], [place] [address] [facility] [place] [address] [place], [place] [phone] [address] (Work) [phone] Social History Tobacco Use Types Packs/Day Years [...] How often do you attend temple or yarsani Never 01/31/2019 services? 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/2018 2:20 PM BLOWING WEASAND documented as of this encounter Miscellaneous Notes Telephone Encounter - Sofia Parada - 03/06/2019 3:17 PM CST PA for Suction dilation and curettage with Jesus at [facility] on 03/20/19 has been sent. ING WEASAND Telephone Encounter - Marylou Urena R.N. - 03/06/2019 1:53 PM CST [facility] Surgery Clinic Checklist Patient Contact Number: [phone] Surgeon: Dr. Lee Surgical Service: (_) Orthopedics (_) General surgery (_) Ophthalmology (_) Podiatry (_) ENT (_) Urology (X) OB / Gynecology (_) Other Date of Surgery: 03/20/2019 Place of Surgery: [facility] Procedure (as written on Consent): Suction dilation and curettage Right, Left, Bilateral, N/A: N/A Diagnosis (reason for surgery): Missed ICD-10: 99169 CPT:O02.1 Case Type: (_) Outpatient (_) AM Admit (_) Inpatient (X) One day surgery Pre-op MD: Dr. Lee Post-Op Appt:(time frame when to return): 2 weeks Surgery Brochure Given: (X) Yes (_) No (_) Mailed to Patient ING WEASAND documented in this encounter Plan of Treatment Not on filedocumented as of this encounter Visit Diagnoses Not on filedocumented in this encounter Additional Health Concerns Assessment Noted Time PHQ-9 Depression Total Score: 15 09/28/2017 3:51 PM CD T documented as of this encounter Care Teams Exhaust Emissions Automotive Technician Relationship Specialty Start Date End Date Marisel Ferrer M.D. PCP - General Family Medicine 07/11/18 03/24/[address] [address] documented as of this encounter
--- OUTSIDE RECORDS SUMMARY | 2022-01-11 09:42 | XMS_ITS | Encounter Summary ---
:1985 Author Organization [facility] Address [address] [place] [address] Care Team Providers Name Role Phone Marisel Ferrer M.D. Primary Care Provider [phone] Reason for Visit Appointment Request (Routine) - Closed Specialty Diagnoses / Procedures Referred By Contact Refer red To Contact Obstetrics and Gynecology Referral ID Status Reason Start Date Expiration Date Visits Requ ested Visits Authorized [id number] Closed 01/14/2020 01/13/2021 1 1 Encounter Details Date Type Department Care Team Description 01/14/2020 Office Visit Department of Gurmeet Casiano T hreatened Obstetrics and [place]lu Santiago (Primary Dx) Gynecology in [address] [place], [place] 200 [facility] [place] [address] [place], [place] [phone] [address] (Work) [phone] Social History Tobacco Use Types Packs/Day Years [...] 11/27/2019 relatives? How often do you attend mandaen or protestant Never 01/31/2019 services? Do you belong to any clubs or organizations such as No 01/31/2019 mandaen groups, unions, fraternal or athletic groups, or [...] at Date Recorded Female 01/11/2018 2:20 PM ENVIRONMENTAL ENGINEERING PROFESSOR documented as of this encounter Progress Notes [...] emergency room immediate. - US OB Limited RONMENTAL ENGINEERING PROFESSOR documented in this encounter Plan of Treatment Not on filedocumented as of this encounter Procedures Procedure Name Priority Date/Time Associated Comments Diagnosis US OB LIMITED RAD - Routine 01/14/2020 11:03 Results f or this (most inpatients AM ENVIRONMENTAL ENGINEERING PROFESSOR Threatened procedure a re in and all the results outpatients) section. documented in this encounter Results US OB Limited (01/14/2020 11:03 AM ENVIRONMENTAL ENGINEERING PROFESSOR) P athologist Signature CRL 16.9 mm Anatomical Region Laterality Modality Ultrasound OB RST LOS, Ultrasound ARZ LOS, Ultrasound FLA LO S, N/A Ultrasound Ultrasound ARZ LOS Specimen (Source) Anatomical Location Collection Method / Collectio n Time Received Time / Laterality Volume Narrative 01/14/2020 11:03 AM ENVIRONMENTAL ENGINEERING PROFESSOR For ultrasound ??details see imbedded report in [...] documented as of this encounter Care Teams Pleater Relationship Specialty Start Date End Date Marisel Ferrer M.D. PCP - General Family Medicine 07/11/18 03/24/[address] [place] [address] documented as of this encounter
--- OUTSIDE RECORDS SUMMARY | 2022-01-11 09:42 | XMS_ITS | Encounter Summary ---
:1985 Author Organization [facility] Address [address] [place] [address] Care Team Providers Name Role Phone Marisel Ferrer M.D. Primary Care Provider [phone] Reason for Visit Reason Comments Nurse Visit OB EDU Encounter Details Date Type Department Care Team Description 01/14/2020 Virtual Visit Department of Shayne Lee M.D. [address], [place] [address] Examination Obstetrics and Marylou Urena RTyler [address] [place] [address] Other Normal Gynecology in [address] [address] Social History Tobacco Use Types [...] How often do you attend episcopalian or denominational Never 01/31/2019 services? 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/2018 2:20 PM TAXICAB COORDINATOR documented as of this encounter Last Filed Vital Signs Vital Sign Reading Time Taken Comments Blood Pressure - - Pulse - - Temperature - - Respiratory Rate - - Oxygen Saturation - - Inhaled Oxygen Concentration - - Weight 55.4 kg (122 lb 3.9 oz) 01/14/2020 11:02 AM TAXICAB COORDINATOR Height - - Body Mass Index 21.13 [...] antepartum education topics and in accordance with [facility] guidelines. Patient states understanding to all topics presented. All questions answered during appointment. Written information regarding topics presented provided for patient to take home. Please see education tab for further details about topics addressed. CAB COORDINATOR documented in this encounter Plan of Treatment Not on filedocumented as of this encounter Visit Diagnoses Diagnosis Examination Other Normal Pregna ncy First Trimester (HCC) documented in this encounter Additional Health Concerns Assessment Noted Time PHQ-9 Depression Total Score: 16 12/09/2019 10:25 AM C DT documented as of this encounter Care Teams Innovations Paraprofessional Relationship Specialty Start Date End Date Marisel Ferrer M.D. PCP - General Family Medicine 07/11/18 03/24/[address] [place] [address] documented as of this encounter
--- OUTSIDE RECORDS SUMMARY | 2022-01-11 09:42 | XMS_ITS | Encounter Summary ---
:[address] [facility] Address [address] [place] [address] Care Team Providers Name Role Phone Marisel Ferrer M.D. Primary Care Provider [phone] Encounter Details Date Type Department Care Team Description 2019 E-Visit Express Care Online Emilee Lundberg RE : E-Visit Submission: Services in [place] rajinder Canela R.N. COVID-19 (Coronavirus) [address] [facility] 200 [facility] [place] [address] [phone] Social History Tobacco Use Types Packs/Day Years [...] How often do you attend episcopalian or sikh Never 01/31/2019 services? 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/2018 2:20 PM COMMISSIONING EDITOR documented as of this encounter Plan of Treatment Not on filedocumented as of this encounter Visit Diagnoses Diagnosis Infection Upper Respiratory Viral - Prim joanna documented in this encounter Additional Health Concerns Assessment Noted Time PHQ-9 Depression Total Score: 15 09/28/2017 3:51 PM CD T documented as of this encounter Care Teams Casing Cooker Relationship Specialty Start Date End Date Marisel Ferrer M.D. PCP - General Family Medicine 07/11/18 03/24/[address] [address] documented as of this encounter
--- OUTSIDE RECORDS SUMMARY | 2022-01-11 09:42 | XMS_ITS | Encounter Summary ---
:1985 Author Organization [facility] Address [address] [place] [address] Care Team Providers Name Role Phone Marisel Ferrer M.D. Primary Care Provider [phone] Encounter Details Date Type Department Care Team Description 11/14/2019 Clinical Communication Department of Jesus Obstetrics and [place] Gynecology in [address] [address] [place] [address] Social History Tobacco Use Types Packs/Day [...] How often do you attend adventist or mormon Never 01/31/2019 services? Do you [...] to pay for the very basics like [employer] hat hard 11/27/2019 food, housing, medical care, [...] at Date Recorded Female 01/11/2018 2:20 PM BEAUTY ADVISOR documented as of this encounter Miscellaneous Notes [...] no Route reply to: Scheduling Contact Number: [phone] documented in this encounter Plan of Treatment Not on filedocumented as of this encounter Visit Diagnoses Not on filedocumented in this encounter Additional Health Concerns Assessment Noted Time PHQ-9 Depression Total Score: 15 09/28/2017 3:51 PM CD T documented as of this encounter Care Teams License And Permit Specialist Relationship Specialty Start Date End Date Marisel Ferrer M.D. PCP - General Family Medicine 07/11/18 03/24/[address] [address] documented as of this encounter
--- OUTSIDE RECORDS SUMMARY | 2022-01-11 09:42 | XMS_ITS | Encounter Summary ---
:1985 Author Organization [facility] Address [address] [place] [address] Care Team Providers Name Role Phone Marisel Ferrer M.D. Primary Care Provider [phone] Encounter Details Date Type Department Care Team Description 11/14/2019 Hospital Encounter Department of [place]st, Pregnanc y Examination Laboratory Medicine [place] Test With Positive in [facility] [address] [place] [address] [phone] Social History Tobacco Use Types Packs/Day Years [...] often do you attend roman catholic or hinduism Never 01/31/2019 services? Do you [...] to pay for the very basics like [employer] hat hard 11/27/2019 food, housing, medical care, [...] at Date Recorded Female 01/11/2018 2:20 PM SHEETMETAL WORKER documented as of this encounter Medications [...] Performed At Patho logist Time Signature HCG, [address] (H) <5 IU/L 11/14/2019 [place] Quantitative, 5:06 [...] Organization Address City/State/ZIP Code Phon e Number [facility]- [address] [place] [address] [place] [address] System in [place] [address] [facility] documented in this encounter Visit Diagnoses Diagnosis Examination Test With Positive Result (HCC) documented in this encounter Additional Health Concerns Assessment Noted Time PHQ-9 Depression Total Score: 15 09/28/2017 3:51 PM CD T documented as of this encounter Care Teams Vault Keeper Relationship Specialty Start Date End Date Marisel Ferrer M.D. PCP - General Family Medicine 07/11/18 03/24/200 [place] [address] documented as of this encounter
--- OUTSIDE RECORDS SUMMARY | 2022-01-11 09:42 | XMS_ITS | Encounter Summary ---
:1985 Author Organization [facility] Address [address] [place] [address] Care Team Providers Name Role Phone Marisel Ferrer M.D. Primary Care Provider [phone] Encounter Details Date Type Department Care Team Description 11/27/2019 Silent Schedule Department of Obstetrics Jef Casiano Jr., and Gynecology in [place], [place] [address] [facility] [place] [address] [phone] (Wo rk) Social History Tobacco Use Types [...] How often do you attend catholic or latter-day Never 01/31/2019 services? Do you [...] Date Recorded Female 01/11/2018 2:20 PM ADVERTISING COORDINATOR documented as of this encounter Plan of [...] documented as of this encounter Care Teams Dry Cleaning Counter Clerk Relationship Specialty Start Date End Date Marisel Ferrer M.D. PCP - General Family Medicine 07/11/18 03/24/20 [address] [place] [address] documented as of this encounter
--- OUTSIDE RECORDS SUMMARY | 2022-01-11 09:42 | XMS_ITS | Encounter Summary ---
:1985 Author Organization [facility] Address [address] [place] [address] Care Team Providers Name Role Phone Marisel Ferrer M.D. Primary Care Provider [phone] Reason for Visit Appointment Request (Routine) - Closed Specialty Diagnoses / Procedures Referred By Contact Refer red To Contact Obstetrics and Gynecology Referral ID Status Reason Start Date Expiration Date Visits Requ ested Visits Authorized [id number] Closed 11/24/2019 11/23/2020 1 1 Encounter Details Date Type Department Care Team Description 11/27/2019 Office Visit Department of Gurmeet Casiano Other Normal First Trimester (Primary Dx); Obstetrics and Olu Santiago Vaginitis Vulvovaginitis; Gynecology in [address] [place], [place] 200 [facility] [address] [place], [place] [phone] [address] (Work) [phone] Social History Tobacco Use Types Packs/Day Years [...] How often do you attend baptism or islam Never 01/31/2019 services? 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/2018 2:20 PM BOATSWAINS MATE documented as of this encounter Last Filed [...] Body Mass Index 19.78 02/14/2019 10:39 AM BOATSWAINS MATE documented in this encounter Progress Notes Gurmeet [...] documented as of this encounter Care Teams Vp Revenue Cycle Relationship Specialty Start Date End Date Marisel Ferrer M.D. PCP - General Family Medicine 07/11/18 03/24/[address] [place] [address] documented as of this encounter
--- OUTSIDE RECORDS SUMMARY | 2022-01-11 09:42 | XMS_ITS | Encounter Summary ---
:1985 Author Organization [facility] Address [address] [place] [address] Care Team Providers Name Role Phone Marisel Ferrer M.D. Primary Care Provider [phone] Reason for Visit Reason Comments COVID Inquiry Encounter Details Date Type Department Care Team Description 01/10/2020 Clinical Communication Central Appointment Line, Covid COVID Inquiry Office in [facility] [address] [place] [address] Social History Tobacco Use Types [...] How often do you attend mandaen or mandaeism Never 01/31/2019 services? Do you [...] Date Recorded Female 01/11/2018 2:20 PM CERTIFIED EMERGENCY VEHICLE TECHNICIAN documented as of this encounter Miscellaneous Notes Telephone Encounter - Polina Peralta - 01/10/2020 12:01 PM CST COVID DOS/PASS Screening What is the patient requesting?: COVID-19 Testing Only (End screening - follow local process) Plan: Endpoint recommendation: Testing indicated, sent patient to [facility] located at [address] [place] [address]. The entrance is on the north side of the building. You must call [phone] for an appointment time.Testing hours are Daily [...] sending patient for testing in T or [facility], an email notification is required. IFIED EMERGENCY VEHICLE TECHNICIAN documented in this encounter Plan of Treatment Not on filedocumented as of this encounter Visit Diagnoses Not on filedocumented in this encounter Additional Health Concerns Infection Onset Date Last Indicated Resolved Time COVID19 Pending 01/10/2020 01/10/2020 01/11/2020 4:27 PM CERTIFIED EMERGENCY VEHICLE TECHNICIAN Assessment Noted Time PHQ-9 Depression Total Score: 16 12/09/2019 10:25 AM C DT documented as of this encounter Care Teams Upholsterer Assembly Line Relationship Specialty Start Date End Date Marisel Ferrer M.D. PCP - General Family Medicine 07/11/18 03/24/200 [place] [address] documented as of this encounter
--- OUTSIDE RECORDS SUMMARY | 2022-01-11 09:42 | XMS_ITS | Encounter Summary ---
:1985 Author Organization [facility] Address [address] [place] [address] Care Team Providers Name Role Phone Marisel Ferrer M.D. Primary Care Provider [phone] Encounter Details Date Type Department Care Team Description 12/10/2019 Admin Visit Department of Family Medicine, [address] [address] [facility] [phone] Social History Tobacco Use Types Packs/Day Years [...] How often do you attend judaism or religion Never 01/31/2019 services? Do you [...] Date Recorded Female 01/11/2018 2:20 PM BANK SALES AND SERVICE MANAGER documented as of this encounter Plan of Treatment Not on filedocumented as of this encounter Visit Diagnoses Not on filedocumented in this encounter Additional Health Concerns Infection Onset Date Last Indicated Resolved Time COVID19 Pending 12/10/2019 12/10/2019 12/11/2019 3:42 PM CDT Assessment Noted Time PHQ-9 Depression Total Score: 16 12/09/2019 10:25 AM C DT documented as of this encounter Care Teams Rug Cleaner Helper Relationship Specialty Start Date End Date Marisel Ferrer M.D. PCP - General Family Medicine 07/11/18 03/24/[address] [address] documented as of this encounter
--- OUTSIDE RECORDS SUMMARY | 2022-01-11 09:42 | XMS_ITS | Encounter Summary ---
:1985 Author Organization [facility] Address [address] [place] [address] Care Team Providers Name Role Phone Marisel Ferrer M.D. Primary Care Provider [phone] Encounter Details Date Type Department Care Team Description 04/04/2019 Clinical Communication Department of Jesus Obstetrics and [place] Gynecology in [address] [place], [place] 200 [facility] [address] [place], [place] [phone] [address] (Work) [phone] Social History Tobacco Use Types Packs/Day Years [...] How often do you attend pentecostalism or congregational Never 01/31/2019 services? Do you [...] Date Recorded Female 01/11/2018 2:20 PM GAS PUMPING STATION SUPERVISOR documented as of this encounter Miscellaneous Notes Telephone Encounter - Virgen Harris R.N. - 04/07/2019 8:20 AM CST Name of person contacted: Patient Relationship to patient: Not applicable Call back number: n/a High School Business Teacher: Not applicable Information provided: results/recommendations. Does not wish to schedule any further consults at this time. Advised to call back if she desires in the future crack off person/patient received and understood education/information provided: Yes crack off person/patient agreed to the Plan of Care: Yes PUMPING STATION SUPERVISOR Telephone Encounter - Joy Lee M.D. - 04/04/2019 6:07 PM GAS PUMPING STATION SUPERVISOR Please let Wendi know that the genetic studies returned normal on the products of the . 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 If she would like to discuss the recurrent losses further, she should schedule an appointment PUMPING STATION SUPERVISOR documented in this encounter Plan of Treatment Not on filedocumented as of this encounter Visit Diagnoses Not on filedocumented in this encounter Additional Health Concerns Assessment Noted Time PHQ-9 Depression Total Score: 15 09/28/2017 3:51 PM CD T documented as of this encounter Care Teams Cathode Washer Relationship Specialty Start Date End Date Marisel Ferrer M.D. PCP - General Family Medicine 07/11/18 03/24/20 [address], [place] [address] documented as of this encounter
--- OUTSIDE RECORDS SUMMARY | 2022-01-11 09:42 | XMS_ITS | Encounter Summary ---
:1985 Author Organization [facility] Address [address] [place] [address] Care Team Providers Name Role Phone Marisel Ferrer M.D. Primary Care Provider [phone] Encounter Details Date Type Department Care Team Description 03/06/2019 Ancillary Procedure Department of Obstetrics Andrea aldana, and Gynecology in [place], [place] [address] [phone] Social History Tobacco Use Types Packs/Day Years [...] How often do you attend hindu or yazidism Never 01/31/2019 services? 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/2018 2:20 PM VASCULAR TECH documented as of this encounter Plan of Treatment Not on filedocumented as of this encounter Procedures Procedure Name Priority Date/Time Associated Comments Diagnosis US PELVIS RAD - Routine 03/06/2019 3:08 Missed Results for this TRANSVAGINAL (most inpatients PM VASCULAR TECH (HCC) procedure a re in and all the results outpatients) section. documented in this encounter Results US Pelvis Transvaginal (03/06/2019 3:08 PM VASCULAR TECH) Anatomical Region Laterality Modality Pelvis, Ultrasound RST LOS, Ultrasound ARZ LOS, Ultrasound F LA N/A Ultrasound LOS Specimen (Source) Anatomical Location Collection Method / Collectio n Time Received Time / Laterality Volume Narrative 03/06/2019 3:08 PM VASCULAR TECH Single, intrauterine with crown-rump length of 30.2 [...] documented as of this encounter Care Teams Player Piano Technician Relationship Specialty Start Date End Date Marisel Ferrer M.D. PCP - General Family Medicine 07/11/18 03/24/[address] [address] documented as of this encounter
--- OUTSIDE RECORDS SUMMARY | 2022-01-11 09:42 | XMS_ITS | Encounter Summary ---
:1985 Author Organization [facility] Address [address] [place] [address] Care Team Providers Name Role Phone Marisel Ferrer M.D. Primary Care Provider [phone] Reason for Visit Reason Onset Date Comments Outpatient COVID-19 Testing 12/10/2019 Encounter Details Date Type Department Care Team Description 12/10/2019 External Outreach Department of Corbin Mason Infect ion [facility] Internal Medicine in J, D.O. Respiratory (Primary [place], [place] [address] Dx) [address] [place] [address] Social History Tobacco Use Types Packs/Day [...] How often do you attend episcopal or pentecostal Never 01/31/2019 services? Do you [...] to pay for the very basics like [employer] hat hard 11/27/2019 food, housing, medical care, [...] Date Recorded Female 01/11/2018 2:20 PM GUEST SERVICES AGENT documented as of this encounter Progress Notes [...] RNA, V Symptomatic (12/10/2019 11:41 AM CDT) [facility] Method Time Signature SARS-CoV-2 Swab, 12/11/2019 [...] is performed using the Aptima SARS-CoV-2 assay ([employer] which has received Emergency Use Authori zation (EUA) by the U.S. Food and Drug Administration. Fact sheets for this Emergency Use Autho rization (EUA) assay can be found at the following links: For Healthcare Providers: https://www.fd a.gov/media/082041/download For Patients: https://www.fda.gov/media/ 981454/download Specimen Anatomical Collection Method Collection Time Receive d Time (Source) Location / / Volume Laterality Varies 12/10/2019 11:41 12/10/2019 7:35 (Nasopharynx) AM CDT PM CDT Corbin Mason D.O. LAB MICROBIOLOGY - GENERAL O RDERABLES Performing Organization Address City/State/ZIP Code Phon e Number [facility]- [address] [place] [address] [place] [address] [address] documented in this encounter Visit Diagnoses Diagnosis Infection Upper Respiratory - Primary documented in this encounter Additional Health Concerns Infection Onset Date Last Indicated Resolved Time COVID19 Pending 12/09/2019 12/09/2019 12/10/2019 10:54 AM CDT COVID19 Pending 12/10/2019 12/10/2019 12/11/2019 3:42 PM CDT Assessment Noted Time PHQ-9 Depression Total Score: 16 12/09/2019 10:25 AM C DT documented as of this encounter Care Teams Drama Director Relationship Specialty Start Date End Date Marisel Ferrer M.D. PCP - General Family Medicine 07/11/18 03/24/[address] [address] documented as of this encounter
--- OUTSIDE RECORDS SUMMARY | 2022-01-11 09:42 | XMS_ITS | Encounter Summary ---
:1985 Author Organization [facility] Address [address] [place] [address] Care Team Providers Name Role Phone Marisel Ferrer M.D. Primary Care Provider [phone] Reason for Referral Outpatient (Routine) - Closed Specialty Diagnoses / Procedures Referred By Contact Refer red To Contact Obstetrics and [facility] Gynecology [place] [address] [place] [address] Referral ID Status Reason Start Date Expiration Date Visits Requ ested Visits Authorized [id number] Closed 11/11/2019 11/10/2020 1 1 Encounter Details Date Type Department Care Team Description 11/11/2019 Clinical Communication Department of Aurelia Lee and [place] Gynecology in [address] [place] [address] [address] [facility] [address] [address] [place], [place] [phone] [address] (Work) [phone] Social History Tobacco Use Types Packs/Day Years [...] How often do you attend yarsani or voodoo Never 01/31/2019 services? Do you [...] Date Recorded Female 01/11/2018 2:20 PM METER AND REGULATOR SHOP SUPERVISOR documented as of this encounter Miscellaneous [...] Dr. Lee. Please call her back at [phone] to advise. documented in this encounter Plan [...] documented as of this encounter Care Teams Carpenter Assistant Installer Relationship Specialty Start Date End Date Marisel Ferrer M.D. PCP - General Family Medicine 07/11/18 03/24/[address] [address] documented as of this encounter
--- OUTSIDE RECORDS SUMMARY | 2022-01-11 09:42 | XMS_ITS | Encounter Summary ---
:1985 Author Organization [facility] Address [address] [place] [address] Care Team Providers Name Role Phone Marisel Ferrer M.D. Primary Care Provider [phone] Encounter Details Date Type Department Care Team Description 01/14/2020 Silent Schedule Department of Obstetrics Jef Casiano Jr., and Gynecology in [place], [place] [address] [facility] [place] [address] [phone] (Wo rk) Social History Tobacco Use Types [...] How often do you attend orthodoxy or confucianism Never 01/31/2019 services? 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/2018 2:20 PM ICER HAND documented as of this encounter Plan of Treatment Not on filedocumented as of this encounter Procedures Procedure Name Priority Date/Time Associated Comments Diagnosis US OB LIMITED RAD - Routine 01/14/2020 11:03 Results f or this (most inpatients AM ICER HAND Threatened procedure a re in and all the results outpatients) section. documented in this encounter Results US OB Limited (01/14/2020 11:03 AM ICER HAND) P athologist Signature CRL 16.9 mm Anatomical Region Laterality Modality Ultrasound OB RST LOS, Ultrasound ARZ LOS, Ultrasound FLA LO S, N/A Ultrasound Ultrasound ARZ LOS Specimen (Source) Anatomical Location Collection Method / Collectio n Time Received Time / Laterality Volume Narrative 01/14/2020 11:03 AM ICER HAND For ultrasound ??details see imbedded report in [...] documented as of this encounter Care Teams Yellow Pages Space Salesperson Relationship Specialty Start Date End Date Marisel Ferrer M.D. PCP - General Family Medicine 07/11/18 03/24/20 [address], [place] [address] documented as of this encounter
--- OUTSIDE RECORDS SUMMARY | 2022-01-11 09:42 | XMS_ITS | Encounter Summary ---
:1985 Author Organization [facility] Address [address] [place] [address] Care Team Providers Name Role Phone Marisel Ferrer M.D. Primary Care Provider [phone] Encounter Details Date Type Department Care Team Description 01/10/2020 Admin Visit Department of Family Medicine, [address] [address] [facility] [phone] Social History Tobacco Use Types Packs/Day Years [...] How often do you attend taoist or caodaism Never 01/31/2019 services? Do you [...] Date Recorded Female 01/11/2018 2:20 PM SOFTWARE CONSULTANT documented as of this encounter Plan of Treatment Not on filedocumented as of this encounter Visit Diagnoses Not on filedocumented in this encounter Additional Health Concerns Infection Onset Date Last Indicated Resolved Time COVID19 Pending 01/10/2020 01/10/2020 01/11/2020 4:27 PM SOFTWARE CONSULTANT Assessment Noted Time PHQ-9 Depression Total Score: 16 12/09/2019 10:25 AM C DT documented as of this encounter Care Teams Host And Hostess Relationship Specialty Start Date End Date Marisel Ferrer M.D. PCP - General Family Medicine 07/11/18 03/24/[address] [address] documented as of this encounter
--- OUTSIDE RECORDS SUMMARY | 2022-01-11 09:42 | XMS_ITS | Encounter Summary ---
:1985 Author Organization [facility] Address [address] [place] [address] Care Team Providers Name Role Phone Marisel Ferrer M.D. Primary Care Provider [phone] Reason for Visit Reason Onset Date Comments Outpatient COVID-19 Testing 12/09/2019 Encounter Details Date Type Department Care Team Description 12/09/2019 External Outreach Department of Corbin Mason Infect ion [facility] Internal Medicine in J, D.O. Respiratory (Primary [place], [place] [address] Dx) [address] [place] [address] Social History Tobacco Use Types Packs/Day [...] How often do you attend taoism or bahai Never 01/31/2019 services? Do you [...] to pay for the very basics like [employer] hat hard 11/27/2019 food, housing, medical care, [...] at Date Recorded Female 01/11/2018 2:20 PM WIRING INSPECTOR documented as of this encounter Progress [...] documented as of this encounter Care Teams Microelectronics Engineer Relationship Specialty Start Date End Date Marisel Ferrer M.D. PCP - General Family Medicine 07/11/18 03/24/20 [address], [place] [address] documented as of this encounter
--- OUTSIDE RECORDS SUMMARY | 2022-01-11 09:42 | XMS_ITS | Encounter Summary ---
:1985 Author Organization [facility] Address [address] [place] [address] Care Team Providers Name Role Phone Marisel Ferrer M.D. Primary Care Provider [phone] Reason for Visit Reason Onset Date Comments Outpatient COVID-19 Testing 01/10/2020 Encounter Details Date Type Department Care Team Description 01/10/2020 External Outreach Department of Corbin Mason Infect ion [facility] Internal Medicine in J, D.O. Respiratory (Primary [place], [place] [address] Dx) [address] [place] [address] Social History Tobacco Use Types Packs/Day [...] How often do you attend druze or amish Never 01/31/2019 services? Do you [...] to pay for the very basics like [employer] hat hard 11/27/2019 food, housing, medical care, [...] Date Recorded Female 01/11/2018 2:20 PM TUBE CUTTER documented as of this encounter Progress Notes Maria R Sorenson R.N. - 01/10/2020 11:59 AM CST Encounter created for the drive-through COVID-19 testing. CUTTER documented in this encounter Plan of Treatment Not on filedocumented as of this encounter Procedures Procedure Name Priority Date/Time Associated Diagnosis Comme nts SARS CORONAVIRUS-2 Routine 01/10/2020 1:08 PM Infection Upper Results for this RNA, V TUBE CUTTER Respiratory procedure are i n the results section. documented in this encounter Results SARS Coronavirus-2 RNA, V Symptomatic (01/10/2020 1:08 PM TUBE CUTTER) [facility] gist Method Time Signature SARS-CoV-2 Swab, 01/11/2020 MKTO Specimen Nasopharynx 4:26 PM TUBE CUTTER Source SARS CoV-2 Undetected Undetected 01/11/2020 MKTO RNA, TMA 4:26 PM TUBE CUTTER Comment: SARS-CoV-2 RNA absent. This result does not rule out COVID-19 in the patient, as the sensitivity of the test depends o n the timing of the specimen collection and the quality of the specim en. Result should be correlated with patient's history and clinical presentat ion. ----ADDITIONAL INFORMATION---- This test is performed using the Aptima SARS-CoV-2 assay ([employer] which has received Emergency Use Authori zation (EUA) by the U.S. Food and Drug Administration. Fact sheets for this Emergency Use Autho rization (EUA) assay can be found at the following links: For Healthcare Providers: https://www.fd a.gov/media/820121/download For Patients: https://www.fda.gov/media/ 763059/download Specimen Anatomical Collection Method Collection Time Receive d Time (Source) Location / / Volume Laterality Varies 01/10/2020 1:08 PM 0 8:37 (Nasopharynx) TUBE CUTTER AM TUBE CUTTER Corbin Mason D.O. LAB MICROBIOLOGY - GENERAL O RDERABLES Performing Organization Address City/State/ZIP Code Phon e Number [facility]- [address] [place] [address] [facility] [place] [address] System in [address] documented in this encounter Visit Diagnoses Diagnosis Infection Upper Respiratory - Primary documented in this encounter Additional Health Concerns Infection Onset Date Last Indicated Resolved Time COVID19 Pending 01/10/2020 01/10/2020 01/11/2020 4:27 PM TUBE CUTTER Assessment Noted Time PHQ-9 Depression Total Score: 16 12/09/2019 10:25 AM C DT documented as of this encounter Care Teams Usps Letter Carrier Relationship Specialty Start Date End Date Marisel Ferrer M.D. PCP - General Family Medicine 07/11/18 03/24/[address] [phone] documented as of this encounter
--- OUTSIDE RECORDS SUMMARY | 2022-01-11 09:42 | XMS_ITS | Encounter Summary ---
:1985 Author Organization [facility] Address [address] [place] [address] Care Team Providers Name Role Phone Marisel Ferrer M.D. Primary Care Provider [phone] Encounter Details Date Type Department Care Team Description 11/11/2019 Orders Only Department of Madelinefldebbie, Exam ination Obstetrics and [place] Test With Positive Gynecology in 2[address] Result (Primary Dx) [place], [place] [address] [address] [place], [place] [phone] [address] (Work) [phone] Social History Tobacco Use Types Packs/Day Years [...] How often do you attend confucianism or druze Never 01/31/2019 services? Do you [...] to pay for the very basics like [employer] hat hard 11/27/2019 food, housing, medical care, [...] at Date Recorded Female 01/11/2018 2:20 PM YOKE SETTER documented as of this encounter Plan of Treatment Not on filedocumented as of this encounter Results (ABNORMAL) hCG (Human Chorionic Gonadotropin), Quantitative, (11/14/2019 2:20 PM CDT) Analysis Performed At Patho logist Time Signature HCG, [address] (H) <5 IU/L 11/14/2019 OWAT Quantitative, 5:06 [...] Organization Address City/State/ZIP Code Phon e Number [facility]- [address] [place] [address] [place] [address] System in [place] [address] (ABNORMAL) hCG (Human [...] Organization Address City/State/ZIP Code Phon e Number [facility]- [address] [place] [address] [place] [address] System in [place] [address] documented in this encounter Visit Diagnoses Diagnosis Examination Test With Positive Result (HCC) - Primary documented in this encounter Additional Health Concerns Assessment Noted Time PHQ-9 Depression Total Score: 15 09/28/2017 3:51 PM CD T documented as of this encounter Care Teams Over Short And Damage Clerk Relationship Specialty Start Date End Date Marisel Ferrer M.D. PCP - General Family Medicine 07/11/18 03/24/202199 [place] [address] documented as of this encounter
--- OUTSIDE RECORDS SUMMARY | 2022-01-11 09:43 | XMS_ITS | Encounter Summary ---
:1985 Author Organization [facility] Address [address] [place] [address] Care Team Providers Name Role Phone Marisel Ferrer M.D. Primary Care Provider Encounter Details Date Type Department Care Team Description 09/11/[address] [facility] Pharmacy - Anneliese Ferrer, [address] [facility] [address] [place] [address] [phone] [place] [address] (Wo rk) Social History Tobacco [...] often do you attend jehovah's witness or methodist Never 01/31/2019 services? Do you [...] to pay for the very basics like [employer] hat hard 11/27/2019 food, housing, medical care, [...] at Date Recorded Female 01/11/2018 2:20 PM DOUGHMAKER documented as of this encounter Plan of Treatment Not on filedocumented as of this encounter Visit Diagnoses Not on filedocumented in this encounter Additional Health Concerns Assessment Noted Time PHQ-9 Depression Total Score: 15 09/28/2017 3:51 PM CD T documented as of this encounter Care Teams Acquisition Analyst Relationship Specialty Start Date End Date Marisel Ferrer M.D. PCP - General Family Medicine 07/11/18 03/24/[address] [address] documented as of this encounter
--- OUTSIDE RECORDS SUMMARY | 2022-01-11 09:43 | XMS_ITS | Encounter Summary ---
:1985 Author Organization [facility] Address [address] [place] [address] Care Team Providers Name Role Phone Marisel Ferrer M.D. Primary Care Provider [phone] Reason for Visit Reason Comments ADHD Outpatient (Routine) - Closed Specialty Diagnoses / Procedures Referred By Contact Refer red To Contact Family Medicine Diagnoses Attention Deficit With Hyperactivity Disorder Joy Lee [facility] ANNY Vo M.D. [address] [address] Referral ID Status Reason Start Date Expiration Date Visits Requ ested Visits Authorized [id number] Closed 01/31/2019 01/31/2020 1 1 Encounter Details Date Type Department Care Team Description 02/14/2019 Office Visit Department of [facility] Anusha pierce Deficit With Medicine, Marisel Moreau, Hyperac tivity Disorder Clinic, in [place] [address] [place] [address] [place] [phone] Social History Tobacco Use Types Packs/Day Years [...] How often do you attend yarsanism or zoroastrianism Never 01/31/2019 services? Do you belong to [...] at Date Recorded Female 01/11/2018 2:20 PM OPHTHALMIC PATHOLOGIST documented as of this encounter Last Filed Vital Signs Vital Sign Reading Time Taken Comments Blood Pressure 110/64 02/14/2019 10:39 AM OPHTHALMIC PATHOLOGIST Pulse 60 02/14/2019 10:39 AM OPHTHALMIC PATHOLOGIST Temperature 36.9 ??C (98.4 ??F) 02/14/2019 10:39 AM OPHTHALMIC PATHOLOGIST Respiratory Rate 18 02/14/2019 10:39 AM OPHTHALMIC PATHOLOGIST Oxygen Saturation - - Inhaled Oxygen Concentration - - Weight 52.2 kg (115 lb 1.3 02/14/2019 10:39 AM oz) OPHTHALMIC PATHOLOGIST Height 162 cm (5' 3.78) 02/14/2019 10:39 AM without sh oes OPHTHALMIC PATHOLOGIST Body Mass Index 19.89 02/14/2019 10:39 AM OPHTHALMIC PATHOLOGIST documented in this encounter Progress Notes Marisel [...] Personal History ([facility]) [phone] ??? Borderline Personality Disorder ([facility] [...] behalf by Suzy Coleman, a trained medical care administrator. The creation of this record is based on the scribe's personal observations and the provider's statements to them. This documenthas been checked and approved by the attending provider. HALMIC PATHOLOGIST documented in this encounter Plan of Treatment Not on filedocumented as of this encounter Visit Diagnoses Diagnosis Attention Deficit With Hyperactivity Dis order documented in this encounter Additional Health Concerns Assessment Noted Time PHQ-9 Depression Total Score: 15 09/28/2017 3:51 PM CD T documented as of this encounter Care Teams Investigations Director Relationship Specialty Start Date End Date Marisel Ferrer M.D. PCP - General Family Medicine 07/11/18 03/24/[address] [address] documented as of this encounter
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
--- OUTSIDE RECORDS SUMMARY | 2022-01-11 09:43 | XMS_ITS | Encounter Summary ---
:1985 Author Organization [facility] Address [address] [place] [address] Care Team Providers Name Role Phone Marisel Ferrer M.D. Primary Care Provider [phone] Reason for Visit Reason Comments Routine Visit 9 weeks Outpatient (Routine) - Closed Specialty Diagnoses / Procedures Referred By Contact Refer red To Contact Obstetrics and Diagnoses Examination Other Normal First Trimester (HCC) QIANA Lee [facility] Gynecology [place] [address] [place] [address] Referral ID Status Reason Start Date Expiration Date Visits Requ ested Visits Authorized [id number] Closed 01/31/2019 01/31/2020 1 1 Encounter Details Date Type Department Care Team Description 02/14/2019 Routine Department of Aravind Lee Other Normal First Trimester (Primary Dx); Obstetrics and [place] Depression Major; Gynecology in [address] Anxiety Genera lized Disorder; [place], [place] St Pain Foot Left; [address] [place], [place] Pain Low Back Chronic; [place] [address] Attention Deficit With Hyperactivity Dis order; [id number] Insomnia; Nausea And Vomiting; [phone] Threat ened (Fax) Social History Tobacco Use [...] How often do you attend confucianist or hindu Never 01/31/2019 services? 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/2018 2:20 PM AIRFRAME AND POWER PLANT MECHANIC documented as of this encounter Last Filed Vital Signs Vital Sign Reading Time Taken Comments Blood Pressure 118/66 02/14/2019 11:19 AM AIRFRAME AND POWER PLANT MECHANIC Pulse - - Temperature - - Respiratory Rate - - Oxygen Saturation - - Inhaled Oxygen Concentration - - Weight 52.2 kg (115 lb 1.3 oz) 02/14/2019 11:19 AM AIRFRAME AND POWER PLANT MECHANIC Height - - Body Mass Index 19.89 02/14/2019 10:39 AM AIRFRAME AND POWER PLANT MECHANIC documented in this encounter Progress Notes Joy [...] in discussed.. She recently started [facility] through [employer] [facility] in [place], and she believes that will help with her mood symptoms. She has had some situational things that she believes are contributing to mood symptoms. She has been in contact with her psychiatrist at [facility] in [place] who recommended against restarting the prozac. She [...] in 1 month for New OB visit. RAME AND POWER PLANT MECHANIC documented in this encounter Miscellaneous Notes Assessment & Plan Note - Joy Lee M.D. - 02/14/2019 12:56 PM AIRFRAME AND POWER PLANT MECHANIC Associated Problem(s): Examination Other Normal First Trimester (HCC) (Deleted) New OB labs today. Plan OB education in 2 weeks. RAME AND POWER PLANT MECHANIC documented in this encounter Plan of Treatment Not on filedocumented as of this encounter Procedures Procedure Name Priority Date/Time Associated Comments Diagnosis US OB LIMITED RAD - Routine 02/14/2019 1:32 Examination Results fo r this (most inpatients PM AIRFRAME AND POWER PLANT MECHANIC Other procedure are in and all Normal the results outpatients) First Trimester section. documented in this encounter Results US OB Limited (02/14/2019 1:32 PM AIRFRAME AND POWER PLANT MECHANIC) P athologist Signature FHR 172 bpm CRL 19.5 mm Anatomical Region Laterality Modality Ultrasound OB RST LOS, Ultrasound ARZ LOS, Ultrasound FLA LO S, N/A Ultrasound Ultrasound ARZ LOS Specimen (Source) Anatomical Location Collection Method / Collectio n Time Received Time / Laterality Volume Narrative 02/14/2019 1:32 PM AIRFRAME AND POWER PLANT MECHANIC Single, living intrauterine with crown-rump length of [...] documented as of this encounter Care Teams Residential Real Estate Appraiser Relationship Specialty Start Date End Date Marisel Ferrer M.D. PCP - General Family Medicine 07/11/18 03/24/20 [address] [place] [phone] documented as of this encounter
--- OUTSIDE RECORDS SUMMARY | 2022-01-11 09:43 | XMS_ITS | Encounter Summary ---
:1985 Author Organization [facility] Address [address] [place] [address] Care Team Providers Name Role Phone Marisel Ferrer M.D. Primary Care Provider [phone] Reason for Referral Outpatient (Routine) - Closed Specialty Diagnoses / Procedures Referred By Contact Refer red To Contact Obstetrics and Diagnoses Missed (HCC) QIANA Lee [facility] Gynecology [place] [address] [place] [address] Referral ID Status Reason Start Date Expiration Date Visits Requ ested Visits Authorized [id number] Closed 02/25/2019 02/25/2020 1 1 Scheduling Instructions Schedule 15 minute visit AL SURGEON Reason for Visit Reason Comments Routine Visit 10+4 weeks Patient Education OB ED Miscarriage Missed AB Encounter Details Date Type Department Care Team Description 02/25/2019 Routine Department of Aravind Lee Other Normal First Trimester (Primary Dx); Obstetrics and [place] Missed (HCC); Gynecology in 2[address] Unspecified Blood Type Rhesus Negative; [place], [place] Depression Major; [address] [address] Anxiety Generalized Disorder [place], [place] [phone] (Work) [phone] Social History Tobacco Use Types Packs/Day Years [...] How often do you attend orthodox or adventism Never 01/31/2019 services? 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/2018 2:20 PM ANIMAL SURGEON documented as of this encounter Last Filed Vital Signs Vital Sign Reading Time Taken Comments Blood Pressure 126/70 02/25/2019 1:29 PM ANIMAL SURGEON Pulse - - Temperature - - Respiratory Rate - - Oxygen Saturation - - Inhaled Oxygen Concentration - - Weight 53.9 kg (118 lb 15 oz) 02/25/2019 1:29 PM ANIMAL SURGEON Height - - Body Mass Index 20.56 02/14/2019 10:39 AM ANIMAL SURGEON documented in this encounter Progress Joy Cosme [...] recently started D[facility] through [facility] in [place], and she believes that will help with her mood symptoms. She has had some situational things that she believes are contributing to mood symptoms.She has been in contact with her psychiatrist at [facility] who recommended against restarting the [...] scheduled on February 24. Followup: 1 week. AL SURGEON documented in this encounter Miscellaneous Notes Assessment & Plan Note - Joy Lee M.D. - 02/25/2019 2:28 PM ANIMAL SURGEON Associated Problem(s): Depression Major Considering this missed , we will follow her mood symptoms closely as she is at risk of exacerbation. AL SURGEON documented in this encounter Plan of Treatment Scheduled Referrals Name Type Priority Associated Order Schedule Diagnoses Obstetrics and Outpatient Referral Routine Missed Exp ected: Gynecology office ([facility]) 03/04/2019 visit (clinic) (Approximate) , Expires: 02/25/2022 documented as of this encounter Procedures Procedure Name Priority Date/Time Associated Comments Diagnosis US OB LIMITED RAD - Routine 02/25/2019 2:31 Missed Results for this (most inpatients PM ANIMAL SURGEON ([facility]) procedure a re in and all the results outpatients) section. documented in this encounter Results US OB Limited (02/25/2019 2:31 PM ANIMAL SURGEON) P athologist Signature CRL 32.3 mm Anatomical Region Laterality Modality Ultrasound OB RST LOS, Ultrasound ARZ LOS, Ultrasound FLA LO S, N/A Ultrasound Ultrasound ARZ LOS Specimen (Source) Anatomical Location Collection Method / Collectio n Time Received Time / Laterality Volume Narrative 02/25/2019 2:31 PM ANIMAL SURGEON Nonviable intrauterine noted with crown-rump length of [...] documented as of this encounter Care Teams Driver/Merchandiser Relationship Specialty Start Date End Date Marisel Ferrer M.D. PCP - General Family Medicine 07/11/18 [address] [phone] documented as of this encounter
--- OUTSIDE RECORDS SUMMARY | 2022-01-11 09:43 | XMS_ITS | Encounter Summary ---
:1985 Author Organization [facility] Address [address] [place] [address] Care Team Providers Name Role Phone Marisel Ferrer M.D. Primary Care Provider [phone] Encounter Details Date Type Department Care Team Description 02/25/2019 Silent Schedule Department of Obstetrics [place], and Gynecology in [place], [place] [address] [phone] (Wo rk) Social History Tobacco Use Types [...] How often do you attend sabianism or orthodox Never 01/31/2019 services? 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/2018 2:20 PM SEWING MACHINE REPAIRER HELPER documented as of this encounter Plan of Treatment Not on filedocumented as of this encounter Procedures Procedure Name Priority Date/Time Associated Comments Diagnosis US OB LIMITED RAD - Routine 02/25/2019 2:31 Missed Results for this (most inpatients PM SEWING MACHINE REPAIRER HELPER (HCC) procedure a re in and all the results outpatients) section. documented in this encounter Results US OB Limited (02/25/2019 2:31 PM SEWING MACHINE REPAIRER HELPER) P athologist Signature CRL 32.3 mm Anatomical Region Laterality Modality Ultrasound OB RST LOS, Ultrasound ARZ LOS, Ultrasound FLA LO S, N/A Ultrasound Ultrasound ARZ LOS Specimen (Source) Anatomical Location Collection Method / Collectio n Time Received Time / Laterality Volume Narrative 02/25/2019 2:31 PM SEWING MACHINE REPAIRER HELPER Nonviable intrauterine noted with crown-rump length of [...] documented as of this encounter Care Teams Shirring Tender Relationship Specialty Start Date End Date Marisel Ferrer M.D. PCP - General Family Medicine 07/11/18 03/24/20 [address] [place] [phone] documented as of this encounter
--- OUTSIDE RECORDS SUMMARY | 2022-01-11 09:43 | XMS_ITS | Encounter Summary ---
:1985 Author Organization [facility] Address [address] [place] [address] Care Team Providers Name Role Phone Kandi Alberts APRN, C.N.P. Primary Care Provider [phone] Reason for Visit Reason Comments Lesion bumps under both eyes and ge tting worse Appointment Request (Routine) - Closed Specialty Diagnoses / Procedures Referred By Contact Refer red To Contact Family Medicine Referral ID Status Reason Start Date Expiration Date Visits Requ ested Visits Authorized [id number] Closed 05/16/2018 05/16/2019 1 Encounter Details Date Type Department Care Team Description 05/31/2018 Comprehensive Visit Department of Elsi Resendiz, [place] aged Skin (Primary Dx); Dermatology in [place] C.N.[place], Rosacea; [place], [place] M.S.N. Acne [address] [place], [place] [address] [address] [place], [place] [phone] Social History Tobacco Use Types Packs/Day [...] How often do you attend moravian or restorationism Never 01/31/2019 services? 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/2018 2:20 PM ARMORED VEHICLE OFFICER documented as of this encounter Progress Notes [...] documented as of this encounter Care Teams Devops Relationship Specialty Start Date End Date Kandi Alberts APRN, C.N.P. PCP - General 07/27/16 07/10/[address] [phone] documented as of this encounter
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
--- OUTSIDE RECORDS SUMMARY | 2022-01-11 09:43 | XMS_ITS | Encounter Summary ---
:1985 Author Organization [facility] Address [address] [place] [address] Care Team Providers Name Role Phone Marisel Ferrer M.D. Primary Care Provider [phone] Reason for Referral Outpatient (Routine) - Closed Specialty Diagnoses / Procedures Referred By Contact Refer red To Contact Obstetrics and Diagnoses Examination Other Normal First Trimester (HCC) QIANA Lee [facility] Gynecology [place] [address] [place] [address] Referral ID Status Reason Start Date Expiration Date Visits Requ ested Visits Authorized [id number] Closed 01/31/2019 01/31/2020 1 1 N WARE CASTER Specialty Diagnoses / Procedures Referred By Contact Adamaris mcdowell To Contact Joy Lee M.D. [facility] [place] [facility] [address] [place] [phone] Referral ID Status Reason Start Date Expiration Date Visits Requ ested Visits Authorized Scheduling Instructions Schedule for 1 hour N WARE CASTER Outpatient (Routine) - Closed Specialty Diagnoses / Procedures Referred By Contact Adamaris mcdowell To Contact Family Medicine Diagnoses Attention Deficit With Hyperactivity Disorder Joy Lee [facility] [place] [facility] M.D. [address] [place] [address] Referral ID Status Reason Start Date Expiration Date Visits Requ ested Visits Authorized [id number] Closed 01/31/2019 01/31/2020 1 1 Scheduling Instructions Trudi N WARE CASTER Reason for Visit Reason Comments Initial Visit Bad cramping Appointment Request (Routine) - Closed Specialty Diagnoses / Procedures Referred By Contact Refer red To Contact Obstetrics and Gynecology Referral ID Status Reason Start Date Expiration Date Visits Requ ested Visits Authorized [id number] Closed 01/30/2019 01/30/2020 Encounter Details Date Type Department Care Team Description 01/31/2019 Initial Department of Obstetrics DARREL Lee: 7w0d and Gynecology in [place], [place] [address] [phone] (Wo rk) Social History Tobacco Use Types [...] at Date Recorded Female 01/11/2018 2:20 PM GREEN WARE CASTER documented as of this encounter Last Filed Vital Signs Vital Sign Reading Time Taken Comments Blood Pressure 110/62 01/31/2019 8:43 AM GREEN WARE CASTER Pulse - - Temperature - - Respiratory Rate - - Oxygen Saturation - - Inhaled Oxygen Concentration - - Weight 53.3 kg (117 lb 8.1 oz) 01/31/2019 8:43 AM GREEN WARE CASTER Height - - Body Mass Index 20.49 01/29/2019 8:49 AM GREEN WARE CASTER documented in this encounter Progress Notes Joy [...] by her last menstrual period. Therefore her BRWON will be 09/19/2019. US today shows a [...] today. She r ecently started D[facility] through [facility] in [place], and she believes that will help with [...] weeks with me for new OB visit. N WARE CASTER documented in this encounter Miscellaneous Notes Assessment & Plan Note - Joy Lee M.D. - 01/31/2019 5:36 PM GREEN WARE CASTER Associated Problem(s): Examination Other Normal First Trimester (HCC) (Deleted) New OB labs today. Plan OB education in 1 month. N WARE CASTER documented in this encounter Plan of Treatment Scheduled Referrals Name Type Priority Associated Diagnoses Order S [facility] Family Medicine - Outpatient Referral Routine [...] Results fo r this (most inpatients PM GREEN WARE CASTER Other procedure are in and all Normal the results outpatients) First Trimester section. documented in this encounter Results US OB Limited (01/31/2019 5:42 PM GREEN WARE CASTER) athologist Signature FHR 126 bpm CRL 7.1 mm Anatomical Region Laterality Modality Ultrasound OB RST LOS, Ultrasound ARZ LOS, Ultrasound FLA LO S, N/A Ultrasound Ultrasound ARZ LOS Specimen (Source) Anatomical Location Collection Method / Collectio n Time Received Time / Laterality Volume Narrative 01/31/2019 5:42 PM GREEN WARE CASTER Single, living intrauterine with crown-rump length of 7.1 mm corresponding to 6+5 weeks gestational a ge. ??Cardiac activity is present 126 beats per minute. ??Gestational sac is fundal. ??The yolk sac is not visualized. ??Appropriate interval growt h since the last ultrasound. Joy Lee M.D. IMG OB US PROCEDURES 25-Hydroxyvitamin D2 and D3 (01/31/2019 10:19 AM GREEN WARE CASTER) athologist Signature 25-Hydroxy D2 <4.0 ng/mL 02/06/2019 [facility] 1:50 AM GREEN WARE CASTER 25-Hydroxy D3 32 ng/mL 02/06/2019 [facility] 1:50 AM GREEN WARE CASTER 25-Hydroxy D 32 ng/mL 02/06/2019 [facility] Total 1:50 AM GREEN WARE CASTER Comment: ----REFERENCE VALUE---- 25-HYDROXY D TOTAL (D2+D3) Optimum level s in the healthy population are 20-50, patients with bone disease may benefit from higher levels within this r hoa. ----ADDITIONAL INFORMATION---- This test was developed and its performa nce characteristics determined by [facility] in a manner consistent with CLIA requirements. This test has not been cleared or approved by the [place] d and Drug Administration. Specimen Anatomical Collection Method Collection Time Receive d Time (Source) Location / / Volume Laterality Blood (Blood, 01/31/2019 10:19 02/03/2019 7:56 Venous) AM GREEN WARE CASTER AM GREEN WARE CASTER Joy Lee M.D. LAB BLOOD ADD-ON Performing Organization Address City/State/ZIP Code Phon e Number [facility] [address] [place] [address] [place] [address] CENTER [facility] [place] [address] Laboratory Medicine and Pathology [address] N[place] Syphilis Total Ab w/ Reflex, Serum (01/31/2019 10:19 AM GREEN WARE CASTER) Patholo gist Method Time Signature Syphilis Nonreactive Nonreactive 02/02/2019 [facility] Total Ab w/ 12:03 PM GREEN WARE CASTER Reflex Comment: No serologic evidence of infection with T. pallidum (syphilis). ??Repeat testing may be cons idered in patients with suspected acute or primary syphilis in 2-4 weeks. For additional information on interpreta tion of the syphilis reverse algorithm and resul ts, see: [email or web address] df Specimen Anatomical Collection Method Collection Time Receive d Time (Source) Location / / Volume Laterality Blood (Blood, 01/31/2019 10:19 02/01/2019 2:44 Venous) AM GREEN WARE CASTER PM GREEN WARE CASTER Joy Lee M.D. LAB BLOOD ADD-ON Performing Organization Address [facility] Phon e Number [address] [phone] [facility] [place] [address] System in [address] Rubella Antibodies, IgG (01/31/2019 10:19 AM GREEN WARE CASTER) P athologist Signature Rubella Ab, Positive 02/02/2019 [facility] IgG, S 12:03 PM GREEN WARE CASTER Comment: Results suggest response to immunization or prior exposure to the virus. ----REFERENCE VALUE---- Vaccinated: Positive (>=1.0 AI) Unvaccinated: Negative (<=0.7 AI) Rubella IgG Antibody Index 2.7 02/02/2019 12 :03 PM GREEN WARE CASTER [facility] Specimen Anatomical Collection Method Collection Time Receive d Time (Source) Location / / Volume Laterality Blood (Blood, 01/31/2019 10:19 02/01/2019 2:44 Venous) AM GREEN WARE CASTER PM GREEN WARE CASTER Joy Lee M.D. LAB MICROBIOLOGY - BLOOD ORD ERABLES Performing Organization Address City/[facility] Phon e Number [address] [phone] [place] [address] System in [address] Hepatitis B Surface Antigen (01/31/2019 10:19 AM GREEN WARE CASTER) [facility] [employer] Method Time Signature HBs Antigen, Nonreactive Nonreactive 01/31/2019 AUST S 4:48 PM GREEN WARE CASTER Comment: Biotin has been identified by the madeline wheatley as a potential interfering substance. ??Higher concentr ations of biotin may be found in multivitamins, hair/nail supple ments, and workout supplements. ??If the result does not [facility] clinical observations, repeat testing after patient refrains fr om the use of supplements for at least 12 hours. Specimen Anatomical Collection Method Collection Time Receive d Time (Source) Location / / Volume Laterality Blood (Blood, 01/31/2019 10:19 01/31/2019 3:43 Venous) AM GREEN WARE CASTER PM GREEN WARE CASTER Joy Lee M.D. LAB MICROBIOLOGY - BLOOD ORD ERABLES Performing Organization Address City/State/ZIP Code Phon e Number [facility]- [address] LAB AUST [place] [facility] - [address] (ABNORMAL) CBC with Differential, Blood (01/31/2019 10:19 AM GREEN WARE CASTER) [facility] Method Time Signature Hemoglobin 12.4 11.6 - 01/31/2019 FB60 15.0 g/dL 10:34 AM GREEN WARE CASTER Hematocrit 38.4 35.5 - 01/31/2019 FB60 44.9 % 10:34 AM GREEN WARE CASTER Erythrocytes 4.28 3.92 - 01/31/2019 FB60 5.13 10:34 AM GREEN WARE CASTER x10(12)/L MCV 89.7 78.2 - 01/31/2019 FB60 97.9 fL 10:34 AM GREEN WARE CASTER RBC Distrib Width 13.0 12.2 - 01/31/2019 FB60 16.1 % 10:34 AM GREEN WARE CASTER Platelet Count 299 157 - 371 01/31/2019 FB60 x10(9)/L 10:34 AM GREEN WARE CASTER Leukocytes 11.3 (H) 3.4 - 9.6 01/31/2019 FB60 x10(9)/L 10:34 AM GREEN WARE CASTER Neutrophils 8.92 (H) 1.56 - 01/31/2019 FB60 6.45 10:34 AM GREEN WARE CASTER x10(9)/L Lymphocytes 1.67 0.95 - 01/31/2019 FB60 3.07 10:34 AM GREEN WARE CASTER x10(9)/L Monocytes 0.63 0.26 - 01/31/2019 FB60 0.81 10:34 AM GREEN WARE CASTER x10(9)/L Eosinophils 0.07 0.03 - 01/31/2019 FB60 0.48 10:34 AM GREEN WARE CASTER x10(9)/L Basophils 0.01 0.01 - 01/31/2019 FB60 0.08 10:34 AM GREEN WARE CASTER x10(9)/L Specimen Anatomical Collection Method Collection Time Receive d Time (Source) Location / / Volume Laterality Blood (Blood, 01/31/2019 10:19 01/31/2019 Venous) AM GREEN WARE CASTER 10:19 AM GREEN WARE CASTER Joy Lee M.D. LAB BLOOD ADD-ON Performing Organization Address City/State/ZIP Code Phon e Number [address] [place] [address] [facility] [address] [place] [address] System [address] ABORh, RBC (01/31/2019 10:19 AM GREEN WARE CASTER) P athologist Signature ABO Group A 02/01/2019 10:45 AUST AM GREEN WARE CASTER Rh Type NEG 02/01/2019 10:45 AUST AM GREEN WARE CASTER Specimen Anatomical Collection Method Collection Time Receive d Time (Source) Location / / Volume Laterality Blood (Blood, 01/31/2019 10:19 01/31/2019 3:42 Venous) AM GREEN WARE CASTER PM GREEN WARE CASTER Joy Lee M.D. LAB BLOOD BANK TEST ORDERABL ES Performing Organization Address City/State/ZIP Code Phon e Number [facility]- [address] [place] [address] [facility] [place], [place] [id number] [place] [address] (ABNORMAL) Antibody Screen, RBC (with reflex Antibody ID) (01/31/2019 10:19 AM GREEN WARE CASTER) P athologist Signature Antibody POS (A) 02/01/2019 AUST Screen 10:45 AM GREEN WARE CASTER Specimen Anatomical Collection Method Collection Time Receive d Time (Source) Location / / Volume Laterality Blood (Blood, 01/31/2019 10:19 01/31/2019 3:42 Venous) AM GREEN WARE CASTER PM GREEN WARE CASTER Joy Lee M.D. LAB BLOOD BANK TEST ORDERABL ES Performing Organization Address City/State/ZIP Code Phon e Number [facility]- [address] [place] [address] [facility] [place] [address] [facility] [place] [facility] [address] (ABNORMAL) Bacterial Culture, Aerobic + Susc, Urine (01/31/2019 10:15 AM GREEN WARE CASTER) Analysis Performed At Patho logist Time Signature Urine Culture Mixed 02/01/2019 MKTO sumeet. (A) 4:15 PM GREEN WARE CASTER Specimen Anatomical Collection Method Collection Time Receive d Time (Source) Location / / Volume Laterality Urine (Urine, 01/31/2019 10:15 01/31/2019 7:01 Midstream) AM GREEN WARE CASTER PM GREEN WARE CASTER Comment: Specimen Source Site: Urine Joy Lee M.D. LAB MICROBIOLOGY - GENERAL O RDERABLES Performing Organization Address City/[facility]/ZIP Code Phon e Number [facility]- [address] [place] [id number] [place] [address] [place] [address] System in [address] documented in this encounter Visit Diagnoses [...] as of this encounter Care Teams Hot Patcher Relationship Specialty Start Date End Date Marisel Ferrer M.D. PCP - General Family Medicine 07/11/18 03/24/20 [address] [place] [phone] documented as of this encounter
--- OUTSIDE RECORDS SUMMARY | 2022-01-11 09:43 | XMS_ITS | Encounter Summary ---
:1985 Author Organization [facility] Address [address] [place] [address] Care Team Providers Name Role Phone Marisel Ferrer M.D. Primary Care Provider [phone] Encounter Details Date Type Department Care Team Description 02/03/2019 Clinical Communication Department of [facility] Obstetrics and [place] Gynecology in [address] [address] [place] [address] Social History Tobacco Use Types Packs/Day [...] How often do you attend congregation or mandaeism Never 01/31/2019 services? Do you [...] to pay for the very basics like [employer] hat hard 11/27/2019 food, housing, medical care, [...] at Date Recorded Female 01/11/2018 2:20 PM AMMUNITION ASSEMBLY I LABORER documented as of this encounter Miscellaneous Notes Telephone Encounter - Marylou Urena R.N. - 02/04/2019 1:03 PM CST No, the lab places the order for antibody identification. NITION ASSEMBLY I LABORER Telephone Encounter - Joy Lee M.D. - 02/04/2019 12:55 PM AMMUNITION ASSEMBLY I LABORER Noted. I agree with plan. Do I need to place the order? NITION ASSEMBLY I LABORER Telephone Encounter - Chika Napier - 02/03/2019 1:50 PM CST The order will be in for additional testing and will need to be completed after her 02/14/[address] Lee. NITION ASSEMBLY I LABORER Telephone Encounter - Alessandra De Anda - 02/03/2019 12:52 PM CST Reason for Communication: Scooter from [facility] [place] calling, is needing an additional antibody screen added and patient has upcoming appt on 02/14, wondering if it can be done at that time Current Can Nursing/Provider leave a detailed message: yes Did the patient refuse triage through Nurse line? (for symptom based concerns): Action Needed: Name of Medication (if relevant): NITION ASSEMBLY I LABORER documented in this encounter Plan of Treatment Not on filedocumented as of this encounter Visit Diagnoses Not on filedocumented in this encounter Additional Health Concerns Assessment Noted Time PHQ-9 Depression Total Score: 15 09/28/2017 3:51 PM CD T documented as of this encounter Care Teams Car Distributor Relationship Specialty Start Date End Date Marisel Ferrer M.D. PCP - General Family Medicine 07/11/18 03/24/[address] [phone] documented as of this encounter
--- OUTSIDE RECORDS SUMMARY | 2022-01-11 09:43 | XMS_ITS | Encounter Summary ---
:1985 Author Organization [facility] Address [address] [place] [address] Care Team Providers Name Role Phone Kandi Alberts APRN C.NGordonPGordon Primary Care Provider [phone] Encounter Details Date Type Department Care Team Description 04/17/2018 Comprehensive Visit Division of Pain Rachel Yao Ra diculopathy Lumbar (Primary Dx); Medicine in J, PGordonARuizC., Pain Low Back C [facility] [address] [facility] [address] [place] [phone] Social History Tobacco Use Types Packs/Day Years [...] How often do you attend anglican or taoism Never 01/31/2019 services? 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/2018 2:20 PM LAWYERS documented as of this encounter Last Filed Vital Signs Vital Sign Reading Time Taken Comments Blood Pressure 128/81 04/17/2018 11:21 AM LAWYERS Pulse 102 04/17/2018 11:21 AM LAWYERS Temperature - - Respiratory Rate - - [...] Odonnell is a pleasant 32-year-old female from [facility] presents today with her boyfriend. She has [...] plan; patient expressed understanding of the content. ERS documented in this encounter Plan of Treatment Not on filedocumented as of this encounter Visit Diagnoses Diagnosis Radiculopathy Lumbar - Primary Pain Low Back Chronic documented in this encounter Additional Health Concerns Assessment Noted Time PHQ-9 Depression Total Score: 15 09/28/2017 3:51 PM CD T documented as of this encounter Care Teams Saloon Keeper Relationship Specialty Start Date End Date Kandi Alberts, TATY, C.N.P. PCP - General 07/27/16 07/10/[address] [phone] documented as of this encounter
--- OUTSIDE RECORDS SUMMARY | 2022-01-11 09:43 | XMS_ITS | Encounter Summary ---
:1985 Author Organization [facility] Address [address] [place] [address] Care Team Providers Name Role Phone Marisel Ferrer M.D. Primary Care Provider [phone] Encounter Details Date Type Department Care Team Description 01/31/2019 Silent Schedule Department of Obstetrics [place], and Gynecology in [place], [place] [address] [phone] (Wo rk) Social History Tobacco Use Types [...] How often do you attend jewish or synagogue Never 01/31/2019 services? Do you belong to [...] Date Recorded Female 01/11/2018 2:20 PM BACK GRAY CLOTH WASHER documented as of this encounter Plan of Treatment Not on filedocumented as of this encounter Procedures Procedure Name Priority Date/Time Associated Comments Diagnosis US OB LIMITED RAD - Routine 01/31/2019 5:42 Examination Results fo r this (most inpatients PM BACK GRAY CLOTH WASHER Other procedure are in and all Normal the results outpatients) First Trimester section. documented in this encounter Results US OB Limited (01/31/2019 5:42 PM BACK GRAY CLOTH WASHER) P athologist Signature FHR 126 bpm CRL 7.1 mm Anatomical Region Laterality Modality Ultrasound OB RST LOS, Ultrasound ARZ LOS, Ultrasound FLA LO S, N/A Ultrasound Ultrasound ARZ LOS Specimen (Source) Anatomical Location Collection Method / Collectio n Time Received Time / Laterality Volume Narrative 01/31/2019 5:42 PM BACK GRAY CLOTH WASHER Single, living intrauterine with crown-rump length of [...] documented as of this encounter Care Teams Peer Counselor Relationship Specialty Start Date End Date Marisel Ferrer M.D. PCP - General Family Medicine 07/11/18 03/24/20 [address] [place] [phone] documented as of this encounter
--- OUTSIDE RECORDS SUMMARY | 2022-01-11 09:43 | XMS_ITS | Encounter Summary ---
:1985 Author Organization [facility] Address [address] [place] [address] Care Team Providers Name Role Phone Marisel Ferrer M.D. Primary Care Provider [phone] Encounter Details Date Type Department Care Team Description 02/14/2019 Silent Schedule Department of Obstetrics [place], and Gynecology in [place], [place] [address] [phone] (Wo rk) Social History Tobacco Use Types [...] How often do you attend yazdanism or methodist Never 01/31/2019 services? 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/2018 2:20 PM BUDGET AND POLICY ANALYST documented as of this encounter Plan of Treatment Not on filedocumented as of this encounter Procedures Procedure Name Priority Date/Time Associated Comments Diagnosis US OB LIMITED RAD - Routine 02/14/2019 1:32 Examination Results fo r this (most inpatients PM BUDGET AND POLICY ANALYST Other procedure are in and all Normal the results outpatients) First Trimester section. documented in this encounter Results US OB Limited (02/14/2019 1:32 PM BUDGET AND POLICY ANALYST) P athologist Signature FHR 172 bpm CRL 19.5 mm Anatomical Region Laterality Modality Ultrasound OB RST LOS, Ultrasound ARZ LOS, Ultrasound FLA LO S, N/A Ultrasound Ultrasound ARZ LOS Specimen (Source) Anatomical Location Collection Method / Collectio n Time Received Time / Laterality Volume Narrative 02/14/2019 1:32 PM BUDGET AND POLICY ANALYST Single, living intrauterine with crown-rump length of [...] as of this encounter Care Teams Car Repairer Apprentice Relationship Specialty Start Date End Date Marisel Ferrer M.D. PCP - General Family Medicine 07/11/18 03/24/20 [address] [address] documented as of this encounter
--- OUTSIDE RECORDS SUMMARY | 2022-01-11 09:43 | XMS_ITS | Encounter Summary ---
:[address] [facility] Address [address] [place] [address] Care Team Providers Name Role Phone Marisel Ferrer M.D. Primary Care Provider [phone] Encounter Details Date Type Department Care Team Description 01/31/2019 Hospital Encounter Department of Alona Lee Laboratory Medicine [place] Other Normal in [place], [address] Trimester [address] [place], [place] [phone] Social History Tobacco Use Types Packs/Day Years [...] How often do you attend jain or buddhism Never 01/31/2019 services? Do you [...] to pay for the very basics like [employer] hat hard 11/27/2019 food, housing, medical care, [...] at Date Recorded Female 01/11/2018 2:20 PM PUMP ERECTOR documented as of this encounter Medications at [...] atal Results for this W/ REFLEX S PUMP ERECTOR Other Normal procedure are i n First the results Trimester section. ABORH, RBC Routine 01/31/2019 10:19 AM Examination Results for this PUMP ERECTOR Other Normal procedure are i n First the results Trimester section. 25-HYDROXYVITAMIN Routine 01/31/2019 10:19 AM Examination Pren atal Results for this D2 AND D3, S PUMP ERECTOR Other Normal procedure are i n First the results Trimester section. RUBELLA ANTIBODIES, Routine 01/31/2019 10:19 AM Examination Pr enatal Results for this IGG PUMP ERECTOR Other Normal procedure are i n First the results Trimester section. HEPATITIS B SURFACE Routine 01/31/2019 10:19 AM Examination Pr enatal Results for this ANTIGEN PUMP ERECTOR Other Normal procedure are i n First the results Trimester section. CBC WITH Routine 01/31/2019 10:19 AM Examination Results for this DIFFERENTIAL, B PUMP ERECTOR Other Normal procedure ar e in First the results Trimester section. ANTIBODY SCREEN, B Routine 01/31/2019 10:19 AM Examination Pre louise Results for this PUMP ERECTOR Other Normal procedure are i n First the results Trimester section. documented in this encounter Results 25-Hydroxyvitamin D2 and D3 (01/31/2019 10:19 AM PUMP ERECTOR) athologist Signature 25-Hydroxy D2 <4.0 ng/mL 02/06/2019 SDSC 1:50 AM PUMP ERECTOR 25-Hydroxy D3 32 ng/mL 02/06/2019 SDSC 1:50 AM PUMP ERECTOR 25-Hydroxy D 32 ng/mL 02/06/2019 SDS Total 1:50 AM PUMP ERECTOR Comment: ----REFERENCE VALUE---- 25-HYDROXY D TOTAL (D2+D3) Optimum level s in the healthy population are 20-50, patients with bone disease may benefit from higher levels within this r hoa. ----ADDITIONAL INFORMATION---- This test was developed and its performa nce characteristics determined by [facility] in a manner consistent with CLIA requirements. This test has not been cleared or approved by the [place] L[place] d and Drug Administration. Specimen Anatomical Collection Method Collection Time Receive d Time (Source) Location / / Volume Laterality Blood (Blood, 01/31/2019 10:19 02/03/2019 7:56 Venous) AM PUMP ERECTOR AM PUMP ERECTOR Joy Lee M.D. LAB BLOOD ADD-ON Performing Organization Address City/State/ZIP Code Phon e Number [facility] [address] [place], [place] [address] [facility] CENTER [facility] [place] [address] Laboratory Medicine and Pathology [address] [place] Syphilis Total Ab w/ Reflex, Serum (01/31/2019 10:19 AM PUMP ERECTOR) Patholo gist Method Time Signature Syphilis Nonreactive Nonreactive 02/02/2019 [facility] Total Ab w/ 12:03 PM PUMP ERECTOR Reflex Comment: No serologic evidence of infection with T. pallidum (syphilis). ??Repeat testing may be cons idered in patients with suspected acute or primary syphilis in 2-4 weeks. For additional information on interpreta tion of the syphilis reverse algorithm and resul ts, see: [email or web address] Specimen Anatomical Collection Method Collection Time Receive d Time (Source) Location / / Volume Laterality Blood (Blood, 01/31/2019 10:19 02/01/2019 2:44 Venous) AM PUMP ERECTOR PM PUMP ERECTOR Joy Lee M.D. LAB BLOOD ADD-ON Performing Organization Address [facility] Phon e Number [address] [phone] [facility] [place] [address] System in [address] Rubella Antibodies, IgG (01/31/2019 10:19 AM PUMP ERECTOR) P athologist Signature Rubella Ab, Positive 02/02/2019 [facility] IgG, S 12:03 PM PUMP ERECTOR Comment: Results suggest response to immunization or prior exposure to the virus. ----REFERENCE VALUE---- Vaccinated: Positive (>=1.0 AI) Unvaccinated: Negative (<=0.7 AI) Rubella IgG Antibody Index 2.7 02/02/2019 12 :03 PM PUMP ERECTOR [facility] Specimen Anatomical Collection Method Collection Time Receive d Time (Source) Location / / Volume Laterality Blood (Blood, 01/31/2019 10:19 02/01/2019 2:44 Venous) AM PUMP ERECTOR PM PUMP ERECTOR Joy Lee M.D. LAB MICROBIOLOGY - BLOOD ORD ERABLES Performing Organization Address City/[facility] Phon e Number [address] [phone] [place] [address] System [address] Hepatitis B Surface Antigen (01/31/2019 10:19 AM PUMP ERECTOR) [facility] VivoText Method Time Signature HBs Antigen, Nonreactive Nonreactive 01/31/2019 AUST S 4:48 PM PUMP ERECTOR Comment: Biotin has been identified by the madeline wheatley as a potential interfering substance. ??Higher concentr ations of biotin may be found in multivitamins, hair/nail supple ments, and workout supplements. ??If the result does not ma [facility] clinical observations, repeat testing after patient refrains fr om the use of supplements for at least 12 hours. Specimen Anatomical Collection Method Collection Time Receive d Time (Source) Location / / Volume Laterality Blood (Blood, 01/31/2019 10:19 01/31/2019 3:43 Venous) AM PUMP ERECTOR PM PUMP ERECTOR Joy Lee M.D. LAB MICROBIOLOGY - BLOOD ORD ERABLES Performing Organization Address City/State/ZIP Code Phon e Number [facility]- [address] [place], [place] [address] [place] [address] LAB AUST [facility] [place], [place] [id number] [place] [address] (ABNORMAL) CBC with Differential, Blood (01/31/2019 10:19 AM PUMP ERECTOR) [facility] VivoText Method Time Signature Hemoglobin 12.4 11.6 - 01/31/2019 FB60 15.0 g/dL 10:34 AM PUMP ERECTOR Hematocrit 38.4 35.5 - 01/31/2019 FB60 44.9 % 10:34 AM PUMP ERECTOR Erythrocytes 4.28 3.92 - 01/31/2019 FB60 5.13 10:34 AM PUMP ERECTOR x10(12)/L MCV 89.7 78.2 - 01/31/2019 FB60 97.9 fL 10:34 AM PUMP ERECTOR RBC Distrib Width 13.0 12.2 - 01/31/2019 FB60 16.1 % 10:34 AM PUMP ERECTOR Platelet Count 299 157 - 371 01/31/2019 FB60 x10(9)/L 10:34 AM PUMP ERECTOR Leukocytes 11.3 (H) 3.4 - 9.6 01/31/2019 FB60 x10(9)/L 10:34 AM PUMP ERECTOR Neutrophils 8.92 (H) 1.56 - 01/31/2019 FB60 6.45 10:34 AM PUMP ERECTOR x10(9)/L Lymphocytes 1.67 0.95 - 01/31/2019 FB60 3.07 10:34 AM PUMP ERECTOR x10(9)/L Monocytes 0.63 0.26 - 01/31/2019 FB60 0.81 10:34 AM PUMP ERECTOR x10(9)/L Eosinophils 0.07 0.03 - 01/31/2019 FB60 0.48 10:34 AM PUMP ERECTOR x10(9)/L Basophils 0.01 0.01 - 01/31/2019 FB60 0.08 10:34 AM PUMP ERECTOR x10(9)/L Specimen Anatomical Collection Method Collection Time Receive d Time (Source) Location / / Volume Laterality Blood (Blood, 01/31/2019 10:19 01/31/2019 Venous) AM PUMP ERECTOR 10:19 AM PUMP ERECTOR Joy Lee M.D. LAB BLOOD ADD-ON Performing Organization Address City/State/ZIP Code Phon e Number [address] [place] [address] [facility] [address] [place] [address] System [address] ABORh, RBC (01/31/2019 10:19 AM PUMP ERECTOR) P athologist Signature ABO Group A 02/01/2019 10:45 AUST AM PUMP ERECTOR Rh Type NEG 02/01/2019 10:45 AUST AM PUMP ERECTOR Specimen Anatomical Collection Method Collection Time Receive d Time (Source) Location / / Volume Laterality Blood (Blood, 01/31/2019 10:19 01/31/2019 3:42 Venous) AM PUMP ERECTOR PM PUMP ERECTOR Joy Lee M.D. LAB BLOOD BANK TEST ORDERABL ES Performing Organization Address City/State/ZIP Code Phon e Number [facility]- [address] [place] [address] [facility] A[facility] [place], [place] [address] [place] [address] (ABNORMAL) Antibody Screen, RBC (with reflex Antibody ID) (01/31/2019 10:19 AM PUMP ERECTOR) P athologist Signature Antibody POS (A) 02/01/2019 AUST Screen 10:45 AM PUMP ERECTOR Specimen Anatomical Collection Method Collection Time Receive d Time (Source) Location / / Volume Laterality Blood (Blood, 01/31/2019 10:19 01/31/2019 3:42 Venous) AM PUMP ERECTOR PM PUMP ERECTOR Joy Lee M.D. LAB BLOOD BANK TEST ORDERABL ES Performing Organization Address City/State/ZIP Code Phon e Number [facility]- [address] [place] [address] [place] [address] [facility] [address] documented in this encounter Visit Diagnoses Diagnosis Examination Other Normal Pregna ncy First Trimester (HCC) documented in this encounter Additional Health Concerns Assessment Noted Time PHQ-9 Depression Total Score: 15 09/28/2017 3:51 PM CD T documented as of this encounter Care Teams Rotary Drill Operator Helper Relationship Specialty Start Date End Date Marisel Ferrer M.D. PCP - General Family Medicine 07/11/18 2 [address], [place] [phone] documented as of this encounter
--- OUTSIDE RECORDS SUMMARY | 2022-01-11 09:43 | XMS_ITS | Encounter Summary ---
:1985 Author Organization [facility] Address [address] [place] [address] Care Team Providers Name Role Phone Marisel Ferrer M.D. Primary Care Provider [phone] Reason for Visit Reason Comments Initial Visit Outpatient (Routine) - Canceled Specialty Diagnoses / Procedures Referred By Contact Refer red To Contact Obstetrics and David Allison M.D. [facility] Gynecology [address] [place] [address] Referral ID Status Reason Start Date Expiration Date Visits V isits Requested Authorized [id number] Canceled 01/27/2019 01/27/2020 1 1 Encounter Details Date Type Department Care Team Description 01/29/2019 Routine Department of Gertrudis Carr Obstetrics jayda Mueller M.D. Examination T est Gynecology in With Positive Result [place], (Primary Dx) [address] [phone] Social History Tobacco Use Types Packs/Day Years [...] How often do you attend congregational or pentecostalism Never 01/31/2019 services? 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/2018 2:20 PM HIGH RAW SUGAR BOILER documented as of this encounter Last Filed Vital Signs Vital Sign Reading Time Taken Comments Blood Pressure 104/66 01/29/2019 8:42 AM HIGH RAW SUGAR BOILER Pulse 72 01/29/2019 8:42 AM HIGH RAW SUGAR BOILER Temperature - - Respiratory Rate 16 01/29/2019 8:42 AM HIGH RAW SUGAR BOILER Oxygen Saturation - - Inhaled Oxygen Concentration - - Weight 53.4 kg (117 lb 13.4 oz) 01/29/2019 8:42 AM HIGH RAW SUGAR BOILER Height 161.3 cm (5' 3.5) 01/29/2019 8:49 AM HIGH RAW SUGAR BOILER Body Mass Index 20.55 01/29/2019 8:42 AM HIGH RAW SUGAR BOILER documented in this encounter Progress Notes Gertrudis Carr M.D. - 01/29/2019 9:15 AM CST Did not see patient, she left office prior to being seen, advised to reschedule by staff. RAW SUGAR BOILER documented in this encounter Plan of Treatment Not on filedocumented as of this encounter Visit Diagnoses Diagnosis Examination Test With Positive Result (HCC) - Primary documented in this encounter Additional Health Concerns Assessment Noted Time PHQ-9 Depression Total Score: 15 09/28/2017 3:51 PM CD T documented as of this encounter Care Teams Credit Associate Relationship Specialty Start Date End Date Marisel Ferrer M.D. PCP - General Family Medicine 07/11/18 03/24/20 [address], [place] [address] documented as of this encounter
--- OUTSIDE RECORDS SUMMARY | 2022-01-11 09:43 | XMS_ITS | Encounter Summary ---
:1985 Author Organization [facility] Address [address] [place] [address] Care Team Providers Name Role Phone Marisel Ferrer M.D. Primary Care Provider Reason for Visit Reason Onset Date Comments NOB 01/29/2019 Encounter Details Date Type Department Care Team Description 01/29/2019 Clinical Communication Department of NICOLE Lee Obstetrics and [place] Gynecology in [address] [place], [place] 200 [facility] [place] [address] [place], [place] [phone] [address] (Work) [phone] Social History Tobacco Use Types Packs/Day Years [...] How often do you attend gnosticist or congregation Never 01/31/2019 services? Do you [...] to pay for the very basics like [employer] hat hard 11/27/2019 food, housing, medical care, [...] Date Recorded Female 01/11/2018 2:20 PM RESEARCH HOME ECONOMIST documented as of this encounter Miscellaneous Notes [...] back Name of Medication (if relevant): na ARCH HOME ECONOMIST documented in this encounter Plan of Treatment Not on filedocumented as of this encounter Visit Diagnoses Not on filedocumented in this encounter Additional Health Concerns Assessment Noted Time PHQ-9 Depression Total Score: 15 09/28/2017 3:51 PM CD T documented as of this encounter Care Teams Motorcycle Mechanic Relationship Specialty Start Date End Date Marisel Ferrer M.D. PCP - General Family Medicine 07/11/18 03/24/[address] [phone] documented as of this encounter
--- OUTSIDE RECORDS SUMMARY | 2022-01-11 09:43 | XMS_ITS | Encounter Summary ---
:1985 Author Organization [facility] Address [address] [place] [address] Care Team Providers Name Role Phone Marisel Ferrer M.D. Primary Care Provider [phone] Reason for Visit Reason Comments Other Would [...] Expiration Date Visits Requ ested Visits Authorized [id number] Closed 07/25/2018 07/25/2019 1 1 Encounter Details Date Type Department Care Team Description 07/26/2018 Office Visit Department of Family [facility], Marisel Mcgregor, Disease (Primary Dx) Clinic, in [place] [address] [place] [phone] Social History Tobacco Use Types Packs/Day Years [...] How often do you attend jewish or gnosticist Never 01/31/2019 services? 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/2018 2:20 PM BURLING AND JOINING SUPERVISOR documented as of this encounter Last Filed [...] Body Mass Index 20.23 01/07/2018 6:00 AM BURLING AND JOINING SUPERVISOR documented in this encounter Progress Notes Marisel [...] documented as of this encounter Care Teams Tree Killer Relationship Specialty Start Date End Date Marisel Ferrer M.D. PCP - General Family Medicine 07/11/18 03/24/[address] [place] [address] documented as of this encounter
--- OUTSIDE RECORDS SUMMARY | 2022-01-11 09:43 | XMS_ITS | Encounter Summary ---
:1985 Author Organization [facility] Address [address] [place] [address] Care Team Providers Name Role Phone Kandi Alberts APRN, C.N.P. Primary Care Provider [phone] Encounter Details Date Type Department Care Team Description 03/27/2018 Hospital Encounter Department of Aster Correa Laboratory Laboratory Medicine TATY Romano, PRODUCT SAFETY TESTER, Results and Pathology, [facility] in [address] [place] [address] [place] [address] [place], [place] [phone] (Work) [phone] Social History Tobacco Use Types Packs/Day Years [...] How often do you attend restorationism or orthodox Never 01/31/2019 services? Do you [...] Date Recorded Female 01/11/2018 2:20 PM SUPERVISOR CARBON PAPER COATING documented as of this encounter Medications at [...] PM Abnormal Labo ratory Results for this SUPERVISOR CARBON PAPER COATING Results procedure are i n the results section. CBC WITH DIFFERENTIAL, Routine 03/27/2018 1:16 PM Abnormal Lab oratory Results for this B SUPERVISOR CARBON PAPER COATING Results procedure are i n the results section. C-REACTIVE PROTEIN Routine 03/27/2018 1:16 PM Abnormal Laborat ory Results for this (CRP), S/P SUPERVISOR CARBON PAPER COATING Results procedure are i n the results section. documented in this encounter Results CRP (C-Reactive Protein) (03/27/2018 1:16 PM SUPERVISOR CARBON PAPER COATING) P athologist Signature C-Reactive <3.0 <=8.0 mg/L 03/27/2018 [facility] Protein (CRP), 2:23 PM SUPERVISOR CARBON PAPER COATING LABORATORIES - [facility] Specimen Anatomical Collection Method Collection Time Receive d Time (Source) Location / / Volume Laterality Blood (Blood, 03/27/2018 1:16 PM 03/27/19 19 1:38 Venous) SUPERVISOR CARBON PAPER COATING PM SUPERVISOR CARBON PAPER COATING DAVID Joseph APRN, M.S. LAB BLOOD ADD-ON Performing Organization Address City/[facility] Code Phon e Number [facility] LABORATORIES - [address] Sedimentation Rate (03/27/2018 1:16 PM SUPERVISOR CARBON PAPER COATING) [facility] gist Method Time Signature Sedimentation 5 0 - 29 03/27/2018 [facility] Rate, B mm/1 h 3:59 PM SUPERVISOR CARBON PAPER COATING LABORATORIES - [facility] Specimen Anatomical Collection Method Collection Time Receive d Time (Source) Location / / Volume Laterality Blood (Blood, 03/27/2018 1:16 PM 03/27/19 19 1:37 Venous) SUPERVISOR CARBON PAPER COATING PM SUPERVISOR CARBON PAPER COATING DAVID Joseph APRN, M.S. LAB BLOOD ADD-ON Performing Organization Address City/[facility] Phon e Number [facility] LABORATORIES - 200 [place] [address] [address] [facility] (ABNORMAL) CBC with Differential, Blood (03/27/2018 1:16 PM SUPERVISOR CARBON PAPER COATING) [facility] gist Method Time Signature Hemoglobin 12.8 11.6 - 03/27/2018 [facility] 15.0 g/dL 1:46 PM SUPERVISOR CARBON PAPER COATING LABORATORIES - [facility] Hematocrit 38.6 35.5 - 03/27/2018 [facility] 44.9 % 1:46 PM SUPERVISOR CARBON PAPER COATING LABORATORIES - [facility] Erythrocytes 4.45 3.92 - 03/27/2018 [facility] 5.13 1:46 PM SUPERVISOR CARBON PAPER COATING LABORATORIES - x10(12)/L [facility] MCV 86.7 78.2 - 03/27/2018 [facility] 97.9 fL 1:46 PM SUPERVISOR CARBON PAPER COATING LABORATORIES - [facility] RBC Distrib 12.1 (L) 12.2 - 03/27/2018 [facility] Width 16.1 % 1:46 PM SUPERVISOR CARBON PAPER COATING LABORATORIES - [facility] Platelet Count 222 157 - 371 03/27/2018 [facility] x10(9)/L 1:46 PM SUPERVISOR CARBON PAPER COATING LABORATORIES - [facility] Leukocytes 6.6 3.4 - 9.6 03/27/2018 [facility] x10(9)/L 1:46 PM SUPERVISOR CARBON PAPER COATING LABORATORIES - [facility] Neutrophils 4.16 1.56 - 03/27/2018 [facility] 6.45 1:46 PM SUPERVISOR CARBON PAPER COATING LABORATORIES - x10(9)/L [facility] Lymphocytes 1.92 0.95 - 03/27/2018 [facility] 3.07 1:46 PM SUPERVISOR CARBON PAPER COATING LABORATORIES - x10(9)/L [facility] Monocytes 0.39 0.26 - 03/27/2018 [facility] 0.81 1:46 PM SUPERVISOR CARBON PAPER COATING LABORATORIES - x10(9)/L [facility] Eosinophils 0.08 0.03 - 03/27/2018 [facility] 0.48 1:46 PM SUPERVISOR CARBON PAPER COATING LABORATORIES - x10(9)/L [facility] Basophils 0.03 0.01 - 03/27/2018 [facility] 0.08 1:46 PM SUPERVISOR CARBON PAPER COATING LABORATORIES - x10(9)/L [facility] Specimen Anatomical Collection Method Collection Time Receive d Time (Source) Location / / Volume Laterality Blood (Blood, 03/27/2018 1:16 PM 03/27/19 19 1:37 Venous) SUPERVISOR CARBON PAPER COATING PM SUPERVISOR CARBON PAPER COATING Aster Correa APRN, PRODUCT SAFETY TESTER, M.S. LAB BLOOD ADD-ON Performing Organization Address City/State/ZIP Code Phon e Number [facility]IES - [address] [place] [address] [facility] documented in this encounter Visit Diagnoses Diagnosis Abnormal Laboratory Results documented in this encounter Additional Health Concerns Assessment Noted Time PHQ-9 Depression Total Score: 15 09/28/2017 3:51 PM CD T documented as of this encounter Care Teams Steam Boiler Fireman Relationship Specialty Start Date End Date Kandi Alberts APRN, C.N.P. PCP - General 07/27/16 07/10/[address] [address] documented as of this encounter
--- OUTSIDE RECORDS SUMMARY | 2022-01-11 09:43 | XMS_ITS | Encounter Summary ---
:1985 Author Organization [facility] Address [address] [place] [address] Care Team Providers Name Role Phone Kandi Alberts APRN C.N.P. Primary Care Provider [phone] Reason for Referral Outpatient (Routine) - Closed Specialty Diagnoses / Procedures Referred By Contact Refer red To Contact Pain Medicine Diagnoses [facility] FL Lumbar Spine Transforaminal Epidural Injection Left TN INJ ANES FORAMEN EPI LUMB SNGL HC INJ ANES FORAMEN EPI LUMB SNGL TN INJ ANES FORAMEN EPI LUMB SNGL M.D. 200 [place] [address] Referral ID Status Reason Start Date Expiration Date Visits Requ ested Visits Authorized [id number] Closed 03/27/2018 03/27/2019 1 1 AU DIRECTOR Reason for Visit Outpatient (Routine) - Closed Specialty Diagnoses / Procedures Referred By Contact Refer red To Contact Pain Medicine Diagnoses Radiculopathy Lumbar Matthias Mtz [facility] Procedures FL Lumbar Spine Transforaminal Epidural Injection Left TN INJ ANES FORAMEN EPI LUMB SNGL HC INJ ANES FORAMEN EPI LUMB SNGL TN INJ ANES FORAMEN EPI LUMB SNGL M.D. [address] [place] [address] Referral ID Status Reason Start Date Expiration Date Visits Requ ested Visits Authorized [id number] Closed 03/27/2018 03/27/2019 1 1 Encounter Details Date Type Department Care Team Description 04/17/2018 Hospital Encounter Division of Pain Bibi, Katyc ulopathy Lumbar Medicine in Matthias iHggins M.D. [place], [place] [address] [facility] [address] [place] [address] Social History Tobacco Use Types Packs/Day Years [...] How often do you attend mormonism or advent Never 01/31/2019 services? 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/2018 2:20 PM BUREAU DIRECTOR documented as of this encounter Last Filed Vital Signs Vital Sign Reading Time Taken Comments Blood Pressure 118/94 04/17/2018 1:25 PM BUREAU DIRECTOR Pulse 100 04/17/2018 1:25 PM BUREAU DIRECTOR Temperature 36.9 ??C (98.4 ??F) 04/17/2018 12:42 PM BUREAU DIRECTOR Respiratory Rate - - Oxygen Saturation 98% 04/17/2018 1:25 PM BUREAU DIRECTOR Inhaled Oxygen Concentration - - Weight - [...] decision maker.: Consent for transfusion was obtained Susan protocol: All relevant documentation and testing were [...] for the procedure: yes Site preparation: Chlorhexidine AU DIRECTOR documented in this encounter Plan of Treatment Not on filedocumented as of this encounter Procedures Procedure Name Priority Date/Time Associated Comments Diagnosis FL LUMBAR SPINE RAD - Routine 04/17/2018 1:22 Radiculopathy Results for TRANSFORAMINAL (most inpatients PM BUREAU DIRECTOR Lumbar this proc edure EPIDURAL INJECTION and all are in th e LEFT outpatients) results section. documented in this encounter Results FL LUMBAR SPINE TRANSFORAMINAL EPIDURAL INJECTION LEFT (04/17/2018 1:22 PM BUREAU DIRECTOR) Specimen (Source) Anatomical Location Collection Method / Collectio n Time Received Time / Laterality Volume Narrative Darwin Pisano M.D. - 04/17/2018 1:10 PM BUREAU DIRECTOR Darwin Pisano M.D. ? 04/17/2018 ??1:30 PM [...] decision maker.: ??Consent for transfusion was obtained Susan protocol: ??All relevant documentation and testin g [...] injection 10 mg Given 04/17/2018 1:10 PM BUREAU DIRECTOR 10 mg (DECADRON) 10 mg, injection, One-Time Injection, Starting on Sun04/17/18 at 1310, For 1 dose iohexol 300 mg iodine/mL solution 1 mL Given 04/17/2018 1:10 PM BUREAU DIRECTOR 1 mL (OMNIPAQUE) 1 mL, injection, One-Time Injection, Starting on Sun04/17/18 at 1310, For 1 dose lidocaine 10 mg/mL (1 %) injection 5 mL Given 04/17/2018 1:10 PM BUREAU DIRECTOR 5 mL (XYLOCAINE) 5 mL, injection, One-Time Injection, Starting on Sun04/17/18 at 1310, For 1 dose lidocaine 20 mg/mL injection 1 mL (XYLOC NEL) Given 04/17/2018 1:10 PM BUREAU DIRECTOR 1 mL 1 mL, injection, One-Time Injection, Starting on Sun04/17/18 at 1310, For 1 dose documented in this encounter Additional Health Concerns Assessment Noted Time PHQ-9 Depression Total Score: 15 09/28/2017 3:51 PM CD T documented as of this encounter Care Teams Mail Technician Relationship Specialty Start Date End Date Kandi Alberts, TATY, C.N.P. PCP - General 07/27/16 07/10/18 [address] [address] documented as of this encounter
--- OUTSIDE RECORDS SUMMARY | 2022-01-11 09:43 | XMS_ITS | Encounter Summary ---
:1985 Author Organization [facility] Address [address] [place] [address] Care Team Providers Name Role Phone Kandi Alberts APRN, C.N.P. Primary Care Provider [phone] Reason for Referral Physical Therapy (Routine) - Closed Specialty Diagnoses / Procedures Referred By Contact Refer red To Contact Diagnoses Pain Leg Pain Low Back Chronic Iliotibial Band Syndrome Left Gurmeet Moreno D.O., M.P.H. 200 [place] [address] Referral ID Status Reason Start Date Expiration Visits Visits Date Requested Authorized [id number] Closed Patient 06/03/2018 06/03/2019 1 1 Preference Reason for Visit Outpatient (Routine) - Closed Specialty Diagnoses / Procedures Referred By Contact Refer red To Contact Pain Medicine Diagnoses Pain Leg Aster Correa APRN, [facility], [facility] [address] [place], [place] [address] Referral ID Status Reason Start Date Expiration Date Visits V isits Requested Authorized [id number] Closed Specialty 2018 2019 1 1 Services Required Encounter Details Date Type Department Care Team Description 06/03/2018 Comprehensive Visit Division of Pain Tiffanie, Pain Low Back Chronic (Primary Dx); Medicine in Gurmeet Hickman, Pain Leg; Jami Tatum, M.P.H. Postlaminectomy Syndrome; [place] [address] Iliotibial Band Syndrome Left [address] [place] [address] [phone] Social History Tobacco Use Types Packs/Day Years [...] at Date Recorded Female 01/11/2018 2:20 PM TEACHER INSTRUMENTAL documented as of this encounter Consult Notes [...] trialed conservative therapies including physical therapy, acupuncture, physician primary care sports medicine, as well as a recent L5 transforaminal [...] ??? Alcoholism Personal History ([facility]) [phone] ??? Dependence Alcohol ([facility]) ??? 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) ??? Suicide Attempt Personal History overdose [...] as of this encounter Care Teams Supervisor Packing Room Relationship Specialty Start Date End Date Kandi Alberts, TATY, C.N.P. PCP - General 07/27/16 07/10/[address] [address] documented as of this encounter
--- OUTSIDE RECORDS SUMMARY | 2022-01-11 09:43 | XMS_ITS | Encounter Summary ---
:1985 Author Organization [facility] Address [address] [place] [address] Care Team Providers Name Role Phone Marisel Ferrer M.D. Primary Care Provider Reason for Visit Reason Onset Date Comments Post Hospital Follow-up 12/20/2018 Encounter Details Date Type Department Care Team Description 12/20/2018 Clinical Communication Department of [facility] Family Medicine, [facility], Follow-up [place] Marisel Cabrera M.D. in [address] [place] [phone] Social History Tobacco Use Types Packs/Day Years [...] How often do you attend amish or jehovah's witness Never 01/31/2019 services? Do you belong to [...] to pay for the very basics like [email or web address] hat hard 11/27/2019 food, housing, medical care, [...] Date Recorded Female 01/11/2018 2:20 PM DOCUMENT IMAGE TECHNICIAN documented as of this encounter Miscellaneous Notes Telephone Encounter - Poorniam Bennett R.N. - 12/20/2018 10:44 AM CST Noted. MENT IMAGE TECHNICIAN Telephone Encounter - Smitha Monet - 12/20/2018 10:33 AM DOCUMENT IMAGE TECHNICIAN Called and spoke with the patient. She lives an hour away and does not plan to follow up here. She has other follow up appointments scheduled already. MENT IMAGE TECHNICIAN Telephone Encounter - Janel Alberto - 12/20/2018 8:36 AM CST Hospital: Gen Diagnosis: spine surgery Discharge date: 12/20/2018 When to be seen: Gen would like the patient seen on Sunday12/23/[address] her [address] Dr Brush is out of the office. Comments: Please call the patient back to set up an appt MENT IMAGE TECHNICIAN documented in this encounter Plan of Treatment Not on filedocumented as of this encounter Visit Diagnoses Not on filedocumented in this encounter Additional Health Concerns Assessment Noted Time PHQ-9 Depression Total Score: 15 09/28/2017 3:51 PM CD T documented as of this encounter Care Teams Clothes Presser Relationship Specialty Start Date End Date Marisel Ferrer M.D. PCP - General Family Medicine 07/11/18 03/24/[address] [address] documented as of this encounter
--- OUTSIDE RECORDS SUMMARY | 2022-01-11 09:43 | XMS_ITS | Encounter Summary ---
:1985 Author Organization [facility] Address [address] [place] [address] Care Team Providers Name Role Phone Marisel Ferrer M.D. Primary Care Provider [phone] Encounter Details Date Type Department Care Team Description 01/31/2019 Hospital Encounter Department of Alona Lee Laboratory Medicine Juana Hamilton Other Normal in [place], [address] Trimester [address] [place], [place] [address] [phone] Social History Tobacco Use Types Packs/Day Years [...] How often do you attend rastafari or orthodox Never 01/31/2019 services? Do you [...] to pay for the very basics like [employer] hat hard 11/27/2019 food, housing, medical care, [...] TEAM LEAD documented as of this encounter Medications at [...] louise Results for this AEROBIC + SUSC, SECURITY TEAM LEAD Other Normal procedure ar e in URINE First the results Trimester section. documented in this encounter Results (ABNORMAL) Bacterial Culture, Aerobic + Susc, Urine (01/31/2019 10:15 AM SECURITY TEAM LEAD) Analysis Performed At Patho logist Time Signature Urine Culture Mixed 02/01/2019 MKTO sumeet. (A) 4:15 PM SECURITY TEAM LEAD Specimen Anatomical Collection Method Collection Time Receive d Time (Source) Location / / Volume Laterality Urine (Urine, 01/31/2019 10:15 01/31/2019 7:01 Midstream) AM SECURITY TEAM LEAD PM SECURITY TEAM LEAD Comment: Specimen Source Site: Urine Joy Lee M.D. LAB MICROBIOLOGY - GENERAL O RDERABLES Performing Organization Address City/State/ZIP Code Phon e Number [facility]- [address] [place] [id number] [place] [address] [place] [address] System in [address] documented in this encounter Visit Diagnoses Diagnosis Examination Other Normal Pregna ncy First Trimester (HCC) documented in this encounter Additional Health Concerns Assessment Noted Time PHQ-9 Depression Total Score: 15 09/28/2017 3:51 PM CD T documented as of this encounter Care Teams Redevelopment Manager Relationship Specialty Start Date End Date Marisel Ferrer M.D. PCP - General Family Medicine 07/11/18 03/24/20 [address] [place] [address] documented as of this encounter
--- OUTSIDE RECORDS SUMMARY | 2022-01-11 09:44 | XMS_ITS | Encounter Summary ---
:1985 Author Organization [facility] Address [address] [place] [address] Care Team Providers Name Role Phone Kandi Alberts APRN C.N.PGordon Primary Care Provider [phone] Encounter Details Date Type Department Care Team Description 02/01/2018 Orders Only Hospital Outpatient Ginger Diaz Infect ion Postoperative Procedure Center in Sonya Julian, CRR N Subsequent (Primary Dx) [place], [place] [address] [facility] [address] [place] [address] [phone] Social History Tobacco Use Types Packs/Day Years [...] How often do you attend taoist or yarsani Never 01/31/2019 services? 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/2018 2:20 PM PMO BUSINESS ANALYST documented as of this encounter Plan of Treatment Not on filedocumented as of this encounter Visit Diagnoses Diagnosis Infection Postoperative Subsequent - Rere melba documented in this encounter Additional Health Concerns Assessment Noted Time PHQ-9 Depression Total Score: 15 09/28/2017 3:51 PM CD T documented as of this encounter Care Teams Mandarin Chinese Teacher Relationship Specialty Start Date End Date Kandi Alberts, TATY, C.N.P. PCP - General 07/27/16 07/10/[address] [address] documented as of this encounter
--- OUTSIDE RECORDS SUMMARY | 2022-01-11 09:44 | XMS_ITS | Encounter Summary ---
:1985 Author Organization [facility] Address [address] [place] [address] Care Team Providers Name Role Phone Kandi Alberts APRN C.NGordonPGordon Primary Care Provider [phone] Encounter Details Date Type Department Care Team Description 11/28/2017 Hospital Encounter Department of Matthias Mtz Pain Back Lumbar Laboratory Medicine Olu Higgins and Pathology, [facility] [address] [place] [address] in [place], [place] [address] [place] [address] [place], [place] (Work) [address] [phone] Social History Tobacco Use Types Packs/Day Years [...] How often do you attend evangelical or anglican Never 01/31/2019 services? 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/2018 2:20 PM DULITE MACHINE BLUER documented as of this encounter Medications at [...] Staphylococcus aureus PCR (11/28/2017 11:28 AM CDT) [facility] [place] 2 Method Time Signature Staphylococcus NARES 11/29/2017 [facility] aureus PCR BILATERAL 12:11 PM LABORATORIES - Specimen Source SWAB CDT [facility] Result Positive Not 11/29/2017 [facility] (A) Applicable 12:11 PM LABORATORIES - CDT [facility] Comment: ----ADDITIONAL INFORMATION---- This test was developed and its performa nce characteristics determined by [facility] in a manner consistent with CLIA requirements. This test has not been cleared or approved by the [place] d and Drug Administration. Specimen Anatomical Collection Method Collection Time Receive d Time (Source) Location / / Volume Laterality Varies (Nares) 11/28/2017 11:28 8 AM CDT 12:08 PM CDT Matthias Mtz M.D. LAB MICROBIOLOGY - GENERAL O RDERAAGUILA Performing Organization Address City/[facility] Code Phon e Number [facility] LABORATORIES - [address] [place] [address] 05 [facility] MRSA Culture (11/28/2017 11:26 AM CDT) [facility] [place] 2 Method Time Signature MRSA Culture No growth 11/30/2017 [facility] of MRSA 2:29 PM CDT LABORATORIES - [facility] Specimen Anatomical Collection Method Collection Time Receive d Time (Source) Location / / Volume Laterality Nares 11/28/2017 11:26 11/29/2017 AM CDT 12:22 PM CDT Comment: Specimen Source Site: SWAB Matthias Mtz M.D. LAB MICROBIOLOGY - GENERAL O RDERAAGUILA Performing Organization Address City/[facility] Phon e Number [facility] - [address] documented in this encounter Visit Diagnoses Diagnosis Pain Back Lumbar documented in this encounter Additional Health Concerns Assessment Noted Time PHQ-9 Depression Total Score: 15 09/28/2017 3:51 PM CD T documented as of this encounter Care Teams Center Medical Director Relationship Specialty Start Date End Date Kandi Alberts, TATY, C.N.P. PCP - General 07/27/16 07/10/[address] [address] documented as of this encounter
--- OUTSIDE RECORDS SUMMARY | 2022-01-11 09:44 | XMS_ITS | Encounter Summary ---
:1985 Author Organization [facility] Address [address] [place] [address] Care Team Providers Name Role Phone Kandi Alberts APRN C.N.PGordon Primary Care Provider [phone] Encounter Details Date Type Department Care Team Description 03/27/2018 Hospital Encounter Department of Javi, Pain Low Back Chronic; Radiology, Olu Doll on Disc Lumbar; Building, in Other Intervert ebral Disc Displacement Lumbar Region [place], [place] [address] [place] [address] Social History Tobacco Use Types Packs/Day Years [...] How often do you attend spiritism or buddhism Never 01/31/2019 services? 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/2018 2:20 PM KETTLE FIRER documented as of this encounter Medications at [...] Results for 2-3 VIEWS (most inpatients PM KETTLE FIRER Degeneration Disc this p rocedure and all Lumbar are in the outpatients) Other Intervertebral results Disc Displacement section. Lumbar Region documented in this encounter Results DX Lumbar Spine 2-3 Views (03/27/2018 1:40 PM KETTLE FIRER) Anatomical Region Laterality Modality Lumbar Spine, Musculoskeletal RST LOS, Neuroradiology N/A Digital Radiography ARZ LOS, Muskuloskeletal FLA LOS Specimen (Source) Anatomical Collection Method Collection Time Re ceived Time Location / / Volume Laterality 03/27/2018 1:46 PM KETTLE FIRER Impressions 03/27/2018 1:48 PM KETTLE FIRER IMPRESSION: ??Partial L5-S1 laminectomy on the left. Narrowed lumbosacral interspace with facet arthritis. Mild de generative change left hip with some prominence at the femoral head/neck offs et. Narrative 03/27/2018 1:48 PM KETTLE FIRER EXAM: ??DX LUMBAR SPINE 2-3 VIEWS Procedure [...] documented as of this encounter Care Teams Rn Internship Relationship Specialty Start Date End Date Kandi Alberts, TATY, C.N.P. PCP - General 07/27/16 07/10/18 [address] [place] [address] documented as of this encounter
--- OUTSIDE RECORDS SUMMARY | 2022-01-11 09:44 | XMS_ITS | Encounter Summary ---
:1985 Author Organization [facility] Address [address] [place] [address] Care Team Providers Name Role Phone Kandi Alberts APRN C.N.PGordon Primary Care Provider [phone] Encounter Details Date Type Department Care Team Description 01/29/2018 Clinical Communication Hospital Outpatient Rola Diaz cruzito Procedure Center in Sonya Julian, CRR N [place], [place] [address] [place] [address] [address] [place] [phone] Social History Tobacco Use Types Packs/Day Years [...] How often do you attend alevism or jain Never 01/31/2019 services? 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/2018 2:20 PM CRAP SHOOTER documented as of this encounter Plan of Treatment Not on filedocumented as of this encounter Visit Diagnoses Not on filedocumented in this encounter Additional Health Concerns Assessment Noted Time PHQ-9 Depression Total Score: 15 09/28/2017 3:51 PM CD T documented as of this encounter Care Teams Protective Services Case Worker Relationship Specialty Start Date End Date Kandi Alberts, TATY, C.N.P. PCP - General 07/27/16 07/10/[address] [address] documented as of this encounter
--- OUTSIDE RECORDS SUMMARY | 2022-01-11 09:44 | XMS_ITS | Encounter Summary ---
:1985 Author Organization [facility] Address [address] [place] [address] Care Team Providers Name Role Phone Kandi Alberts APRN C.N.P. Primary Care Provider [phone] Encounter Details Date Type Department Care Team Description 01/15/2018 Documentation Department of Orthopedic Ginger Diaz, Surgery in [facility], [place] [address] [address] [facility] [address] [place] [address] [phone] (Wo rk) Social History Tobacco Use Types [...] How often do you attend hinduism or jain Never 01/31/2019 services? 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/2018 2:20 PM LEGISLATIVE DIRECTOR documented as of this encounter Progress Notes [...] follow-up visit tomorrow, 01/16/18, with Dr. Mtz. SLATIVE DIRECTOR documented in this encounter Plan of Treatment Not on filedocumented as of this encounter Visit Diagnoses Not on filedocumented in this encounter Additional Health Concerns Assessment Noted Time PHQ-9 Depression Total Score: 15 09/28/2017 3:51 PM CD T documented as of this encounter Care Teams Bulb Packer Relationship Specialty Start Date End Date Kandi Alberts, TATY, C.N.P. PCP - General 07/27/16 07/10/18 [address], [place] [address] documented as of this encounter
--- OUTSIDE RECORDS SUMMARY | 2022-01-11 09:44 | XMS_ITS | Encounter Summary ---
:1985 Author Organization [facility] Address [address] [place] [address] Care Team Providers Name Role Phone Kandi Alberts APRN C.N.P. Primary Care Provider [phone] Encounter Details Date Type Department Care Team Description 02/26/2018 Orders Only Hospital Outpatient Ginger Diaz, Procedure Center in [place], [place] [address] [facility] [address] [place] [phone] (Wo rk) Social History Tobacco Use Types [...] How often do you attend restorationism or methodist Never 01/31/2019 services? 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/2018 2:20 PM TOMBSTONE ERECTOR documented as of this encounter Plan of Treatment Not on filedocumented as of this encounter Visit Diagnoses Not on filedocumented in this encounter Additional Health Concerns Assessment Noted Time PHQ-9 Depression Total Score: 15 09/28/2017 3:51 PM CD T documented as of this encounter Care Teams Burr Machine Operator Relationship Specialty Start Date End Date Kandi Alberts, TATY, C.N.P. PCP - General 07/27/16 07/10/[address] [address] documented as of this encounter
--- OUTSIDE RECORDS SUMMARY | 2022-01-11 09:44 | XMS_ITS | Encounter Summary ---
:1985 Author Organization [facility] Address [address] [place] [address] Care Team Providers Name Role Phone Kandi Alberts APRN C.N.PGordon Primary Care Provider [phone] Reason for Referral MRI/CAT/PET Scan (Routine) - Closed Specialty Diagnoses / Procedures Referred By Contact Refer red To Contact Radiology Diagnoses Radiculopathy Lumbar Matthias Mtz M.D. [facility] Procedures MR Lumbar Spine without and with IV Contrast IN MRI LUMB SPINE WO/W CNTRST HC MRI LUMB SPINE WO/W CNTRST IN MRI LUMB SPINE WO/W CNTRST [address] [place] [address] Referral ID Status Reason Start Date Expiration Date Visits Requ ested Visits Authorized [id number] Closed 01/16/2018 01/16/2019 1 1 WORKER POULTRY Reason for Visit Outpatient (Routine) - Closed Specialty Diagnoses / Procedures Referred By Contact Refer red To Contact Orthopedic Surgery Diagnoses Pain Low Back Chronic Degeneration Disc Lumbar Other Intervertebral Disc Displacement Lumbar Region Bridger [facility] [address] [place] [address] Referral ID Status Reason Start Date Expiration Date Visits Requ ested Visits Authorized [id number] Closed 01/07/2018 01/07/2019 1 1 Encounter Details Date Type Department Care Team Description 01/16/2018 Office Visit Department of Matthias Mtz Pain Low Ba ck Chronic; Orthopedic Surgery fazal Higgins M.D. Degeneration Disc Lumbar; [place], [place] [address] Other Intervertebral Disc Displacement L umbar Region; [address] [place], [place] [address] [phone] Social History Tobacco Use Types Packs/Day Years [...] How often do you attend hindu or anglican Never 01/31/2019 services? 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/2018 2:20 PM FARMWORKER POULTRY documented as of this encounter Progress Notes [...] and/or coordination of care as described above. WORKER POULTRY documented in this encounter Plan of Treatment Not on filedocumented as of this encounter Results MR Lumbar Spine without and with IV Contrast (01/23/2018 2:59 PM FARMWORKER POULTRY) Anatomical Region Laterality Modality Lumbar Spine, Neuroradiology RST [facility], Neuroradiology N/A Magnetic Resonance ARZ [facility], Neuroradiology FLA [facility] Specimen (Source) Anatomical Collection Method Collection Time Re ceived Time Location / / Volume Laterality 01/23/2018 5:46 PM FARMWORKER POULTRY Impressions 01/23/2018 6:00 PM FARMWORKER POULTRY IMPRESSION: 1. Interval left L5-S1 laminotomy. Enhan [...] protrusion at L4-5. Narrative 01/23/2018 6:00 PM FARMWORKER POULTRY EXAM: MR LUMBAR SPINE WITHOUT AND WITH [...] PROCEDURES CRP (C-Reactive Protein) (01/16/2018 1:27 PM FARMWORKER POULTRY) P athologist Signature C-Reactive <3.0 <=8.0 mg/L 01/16/2018 [facility] Protein (CRP), 2:40 PM FARMWORKER POULTRY LABORATORIES - S [facility] Specimen Anatomical Collection Method Collection Time Receive d Time (Source) Location / / Volume Laterality Blood (Blood, 01/16/2018 1:27 PM 01/17/20 18 1:49 Venous) FARMWORKER POULTRY PM FARMWORKER POULTRY Matthias Mtz M.D. LAB BLOOD ADD-ON Performing Organization Address City/State/ZIP Code Phon e Number [facility]ATORIES - [address] [facility] [address] [place], [place] [address] [facility] (ABNORMAL) CBC with Differential, Blood (01/16/2018 1:27 PM FARMWORKER POULTRY) Patholo gist Method Time Signature Hemoglobin 13.9 11.6 - 01/16/2018 [facility] 15.0 g/dL 1:57 PM [employer] LAB[facility]ATORIES - [facility] Hematocrit 42.8 35.5 - 01/16/2018 [facility] 44.9 % 1:57 PM [employer] [facility] - [facility] Erythrocytes 4.84 3.92 - 01/16/2018 [facility] 5.13 1:57 PM [employer] LABORATORIES - x10(12)/L [facility] MCV 88.4 78.2 - 01/16/2018 [facility] 97.9 fL 1:57 PM [facility] RBC Distrib 11.8 (L) 12.2 - 01/16/2018 [facility] Width 16.1 % 1:57 PM [employer] [facility] - [facility] Platelet Count 308 157 - 371 01/16/2018 [facility] x10(9)/L 1:57 PM [facility] Leukocytes 11.7 (H) 3.4 - 9.6 01/16/2018 [facility] x10(9)/L 1:57 PM [employer] [facility] - [facility] Neutrophils 7.59 (H) 1.56 - 01/16/2018 [facility] 6.45 1:57 PM [employer] [facility] - x10(9)/L [facility] Lymphocytes 3.08 (H) 0.95 - 01/16/2018 [facility] 3.07 1:57 PM [employer] [facility]IES - x10(9)/L [facility] Monocytes 0.81 0.26 - 01/16/2018 [facility] 0.81 1:57 PM [employer] LAB[facility]IES - x10(9)/L [facility] Eosinophils 0.12 0.03 - 01/16/2018 [facility] 0.48 1:57 PM [employer] [facility]IES - x10(9)/L [facility] Basophils 0.05 0.01 - 01/16/2018 [facility] 0.08 1:57 PM [employer] LAB[facility]IES - x10(9)/L [facility] Specimen Anatomical Collection Method Collection Time Receive d Time (Source) Location / / Volume Laterality Blood (Blood, 01/16/2018 1:27 PM 01/17/20 18 1:49 Venous) FARMWORKER POULTRY PM FARMWORKER POULTRY Matthias Mtz M.D. LAB BLOOD ADD-ON Performing Organization Address City/[facility]/ZIP Code Phon e Number [facility] - 200 [place], [place] [address] [facility] Sedimentation Rate (01/16/2018 1:26 PM FARMWORKER POULTRY) [facility] gist Method Time Signature Sedimentation 6 0 - 29 01/16/2018 [facility] Rate, B mm/1 h 3:48 PM [employer] [facility] - [facility] Specimen Anatomical Collection Method Collection Time Receive d Time (Source) Location / / Volume Laterality Blood (Blood, 01/16/2018 1:26 PM 01/17/20 18 1:49 Venous) FARMWORKER POULTRY PM FARMWORKER POULTRY Matthias Mtz M.D. LAB BLOOD ADD-ON Performing Organization Address City/[facility] Phon e Number [facility]IES - 200 [place] [address] [facility] documented in this encounter Visit Diagnoses Diagnosis Pain Low Back Chronic Degeneration Disc Lumbar Other Intervertebral Disc Displacement L umbar Region Radiculopathy Lumbar Radiculopathy Lumbar documented in this encounter Additional Health Concerns Assessment Noted Time PHQ-9 Depression Total Score: 15 09/28/2017 3:51 PM CD T documented as of this encounter Care Teams Pharmacy Sales Representative Relationship Specialty Start Date End Date Kandi Alberts, FUEL MANAGEMENT HANDLER, C.N.P. PCP - General 07/27/16 07/10/[address] [address] documented as of this encounter
--- OUTSIDE RECORDS SUMMARY | 2022-01-11 09:44 | XMS_ITS | Encounter Summary ---
:1985 Author Organization [facility] Address [address] [place] [address] Care Team Providers Name Role Phone Kandi Alberts APRN C.NGordonPGordon Primary Care Provider [phone] Reason for Referral MRI/CAT/PET Scan (Routine) - Closed Specialty Diagnoses / Procedures Referred By Contact Refer red To Contact Radiology Diagnoses Radiculopathy Lumbar Matthias Mtz M.D. [place] Procedures MR Lumbar Spine without and with IV Contrast NM MRI LUMB SPINE WO/W CNTRST HC MRI LUMB SPINE WO/W CNTRST NM MRI LUMB SPINE WO/W CNTRST [address] [place] [address] Referral ID Status Reason Start Date Expiration Date Visits Requ ested Visits Authorized [id number] Closed 01/16/2018 01/16/2019 1 1 LE WEBCENTER CONSULTANT Reason for Visit MRI/CAT/PET Scan (Routine) - Closed Specialty Diagnoses / Procedures Referred By Contact Refer red To Contact Radiology Diagnoses Radiculopathy Lumbar Matthias Mtz M.D. [place] [facility] Procedures MR Lumbar Spine without and with IV Contrast NM MRI LUMB SPINE WO/W CNTRST HC MRI LUMB SPINE WO/W CNTRST NM MRI LUMB SPINE WO/W CNTRST [address] [place], [place] [address] Referral ID Status Reason Start Date Expiration Date Visits Requ ested Visits Authorized [id number] Closed 01/16/2018 01/16/2019 1 1 Encounter Details Date Type Department Care Team Description 01/23/2018 Hospital Encounter Department of Katy Mtzculo blanca Lumbar Radiology, Teresa Pillai, in [place], [facility] [address] [place] [employer], [place] [address] [facility] [address] [place], [place] [phone] (Work) [phone] Social History Tobacco Use Types Packs/Day Years [...] How often do you attend moravian or congregational Never 01/31/2019 services? 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/2018 2:20 PM ORACLE WEBCENTER CONSULTANT documented as of this encounter Medications at [...] this WITHOUT AND WITH (most inpatients PM ORACLE WEBCENTER CONSULTANT procedu re are in IV CONTRAST and all the results outpatients) section. documented in this encounter Results MR Lumbar Spine without and with IV Contrast (01/23/2018 2:59 PM ORACLE WEBCENTER CONSULTANT) Anatomical Region Laterality Modality Lumbar Spine, Neuroradiology RST [facility], Neuroradiology N/A Magnetic Resonance ARZ [facility], Neuroradiology FLA [facility] Specimen (Source) Anatomical Collection Method Collection Time Re ceived Time Location / / Volume Laterality 01/23/2018 5:46 PM ORACLE WEBCENTER CONSULTANT Impressions 01/23/2018 6:00 PM ORACLE WEBCENTER CONSULTANT IMPRESSION: 1. Interval left L5-S1 laminotomy. Enhan [...] protrusion at L4-5. Narrative 01/23/2018 6:00 PM ORACLE WEBCENTER CONSULTANT EXAM: MR LUMBAR SPINE WITHOUT AND WITH [...] injection 0.5-15 mL Given 01/23/2018 2:49 PM ORACLE WEBCENTER CONSULTANT 6 mL (GADAVIST) 0.5-15 mL, intravenous, Once in imaging, contrast, Starting on Sun01/23/18 at 1318, For 1 dose, Imaging Protocol Orders, Dose per Radiant Medication Guidelines documented in this encounter Additional Health Concerns Assessment Noted Time PHQ-9 Depression Total Score: 15 09/28/2017 3:51 PM CD T documented as of this encounter Care Teams Trial Paralegal Relationship Specialty Start Date End Date Kandi Alberts, TATY, C.N.P. PCP - General 07/27/16 07/10/[address] [address] documented as of this encounter
--- OUTSIDE RECORDS SUMMARY | 2022-01-11 09:44 | XMS_ITS | Encounter Summary ---
:1985 Author Organization [facility] Address [address] [place] [address] Care Team Providers Name Role Phone Kandi Alberts APRN C.N.P. Primary Care Provider [phone] Reason for Visit Auth/Cert Specialty Diagnoses / Procedures Referred By Contact Refer red To Contact Diagnoses Extruded Disc Lumbar Procedures WI LMNOTOMY W DCMPRN 1 SPACE LUMB Decompression Spine - Posterior Lumbar Referral ID Status Reason Start Date Expiration Date Visits Requ ested Visits Authorized [id number] 1 1 Encounter Details Date Type Department Care Team Description 01/07/2018 Anesthesia Event RST ROMB MAIN OR Denzel Richter, [address] [facility] [place] [address] [address] [facility] [facility] [phone] [place] [phone] (Wo rk) Anesthesia Record Procedure Summary Procedure [...] Fransisco Wright, Manny Wright, (created via procedure CARE ANALYST, ZAK, D.N.P. CARE ANALYST, CORE MAN, D.N.P. documentation); Mask Ventilation: Easy mask; Type: Standard ETT; Single Lumen Tube Size: 7 mm; Cuffed: Yes; Blade Size: De Anda 2; Location: Oral; Removal Date: 01/07/18; Removal Time: 1424 (RETIRED) Incision 01/07/18; 1215; Back; 01/07/18 1215 by 1418 by Posterior; STRP STRS Jahaira Tan, [facility] ic-Backgroun SKNCLSR NWVN 1/4X4 (x1), R.N. d, [...] How often do you attend mormon or scientologist Never 01/31/2019 services? 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/2018 2:20 PM AUDIO TAPE LIBRARIAN documented as of this encounter OR Notes Anesthesia Postprocedure Evaluation - Fransisco Wright APRN, CORE MAN, D.N.P. - 01/07/2018 2:37 PM CST Patient: Wendi Odonnell Procedure Summary Date: 01/07/18 Room / Location: [address] / [facility] in [place], [place] Anesthesia Start: 1204 Anesthesia Stop: 1434 [...] Post Op nausea/vomiting: none Hydration status: euvolemic O TAPE LIBRARIAN Anesthesia Procedure Notes - Fransisco Wright APRN, [...] Procedure outcome: successful Airway event: no complications O TAPE LIBRARIAN Anesthesia Preprocedure Evaluation - Denzel Richter M.D. [...] patient / legal guardian, or through an ell tutor; patient evaluated and approved for anesthesia / sedation. Use of blood products discussed with patient who consented to blood products. O TAPE LIBRARIAN documented in this encounter Plan of Treatment Not on filedocumented as of this encounter Procedures Procedure Name Priority Date/Time Associated Comments Diagnosis LDA ANE ENDOTRACHEAL Routine 01/07/2018 12:36 Res ults for this AIRWAY PM AUDIO TAPE LIBRARIAN procedure are i n the results section. documented in this encounter Results LDA ANE ENDOTRACHEAL AIRWAY (01/07/2018 12:36 PM AUDIO TAPE LIBRARIAN) Narrative Fransisco Wright APRN, CRNA, D.N.P. - 12:36 PM AUDIO TAPE LIBRARIAN Fransisco Wright APRN, CRNA, D.N.P. ? 01/07/2018 [...] no complications Procedure Note Fransisco Wright, TATY, CORE MAN, D.N.P. - 12:36 PM CST Airway Date/Time: [...] Site acetaminophen injection Given 01/07/2018 2:05 PM AUDIO TAPE LIBRARIAN 1,000 mg (OFIRMEV) Administer over 15 Minutes, As needed, Starting on Sun01/07/18 at 1405, Anesthesia Intra-op ceFAZolin injection 2,000 mg (ANCEF) Given 01/07/2018 12:30 PM AUDIO TAPE LIBRARIAN 2 g 2,000 mg (rounded from 1,450 [...] dexamethasone injection (DECADRON) Given 01/07/2018 12:25 PM AUDIO TAPE LIBRARIAN 4 mg As needed, Starting on Sun01/07/18 at 1225, Anesthesia Intra-op droperidol injection (INAPSINE) Given 01/07/2018 2:08 PM AUDIO TAPE LIBRARIAN 0.625 mg intravenous, As needed, nausea, vomiting, Starting on Sun01/07/18 at 1408, Anesthesia Intra-op fentaNYL injection (SUBLIMAZE) Given 01/07/2018 1:59 PM AUDIO TAPE LIBRARIAN 50 mcg intravenous, As needed, severe pain or score 7-10 of 10, Starting on Sun01/07/18 at 1212, Anesthesia Intra-op Given 01/07/2018 12:12 PM AUDIO TAPE LIBRARIAN 100 mcg ketorolac injection (TORADOL) Given 01/07/2018 2:12 PM AUDIO TAPE LIBRARIAN 15 mg As needed, moderate pain or score 4-6 of 10, Starting on Sun01/07/18 at 1412, Anesthesia Intra-op lactated ringers New Bag 01/07/2018 2:08 PM AUDIO TAPE LIBRARIAN intravenous, Continuous Infusion: Per Instructions PRN, Starting on Sun01/07/18 at 1208, Anesthesia Intra-op New Bag 01/07/2018 12:08 PM AUDIO TAPE LIBRARIAN lidocaine (PF) (cardiac) injection Given 01/07/2018 12:12 PM AUDIO TAPE LIBRARIAN 60 mg intravenous, As needed, Starting on Sun01/07/18 at 1212, Anesthesia Intra-op ondansetron (PF) injection (ZOFRAN) Given 01/07/2018 2:08 PM AUDIO TAPE LIBRARIAN 4 mg intravenous, As needed, nausea, vomiting, Starting on Sun01/07/18 at 1408, Anesthesia Intra-op phenylephrine 80 mcg/mL in Rate/Dose 01/07/2018 1:01 0.4 mcg/kg/min 17.4 mL/hr NaCl 0.9% 250 mL infusion Change PM AUDIO TAPE LIBRARIAN Continuous Infusion: Per Instructions PRN, Starting on Sun01/07/18 at 1258, Anesthesia Intra-op New Bag 01/07/2018 12:58 PM AUDIO TAPE LIBRARIAN 0.3 mcg/kg/min 13.1 mL/hr phenylephrine injection Given 01/07/2018 12:52 PM AUDIO TAPE LIBRARIAN 100 mcg intravenous, As needed, Starting on Sun01/07/18 at 1224, Anesthesia Intra-op Given 01/07/2018 12:34 PM AUDIO TAPE LIBRARIAN 150 mcg Given 01/07/2018 12:25 PM AUDIO TAPE LIBRARIAN 100 mcg propofol 10 mg/mL infusion Rate/Dose 01/07/2018 2:05 25 mcg/kg/min 8 .7 mL/hr (DIPRIVAN) Change PM AUDIO TAPE LIBRARIAN Continuous Infusion: Per Instructions PRN, Starting on Sun01/07/18 at 1215, Anesthesia Intra-op New Bag 01/07/2018 12:15 PM AUDIO TAPE LIBRARIAN 50 mcg/kg/min 17.4 mL/hr propofol injection (DIPRIVAN) Given 01/07/2018 12:13 PM AUDIO TAPE LIBRARIAN 200 mg intravenous, As needed, Starting on Sun01/07/18 at 1213, Anesthesia Intra-op rocuronium injection (ZEMURON) Given 01/07/2018 12:35 PM AUDIO TAPE LIBRARIAN 50 mg As needed, Starting on Sun01/07/18 at 1235, Anesthesia Intra-op succinylcholine-0.9% NaCl (PF) injection Given 01/07/2018 12:14 PM AUDIO TAPE LIBRARIAN 60 mg (ANECTINE) intravenous, As needed, Starting on Sun01/07/18 at 1214, Anesthesia Intra-op sugammadex injection (BRIDION) Given 01/07/2018 2:13 PM AUDIO TAPE LIBRARIAN 116 mg As needed, Starting on Sun01/07/18 at 1413, Anesthesia Intra-op tranexamic acid 600 mg in NaCl 0.9% IVPB New Bag 01/07/2018 12:23 PM AUDIO TAPE LIBRARIAN 660 mg 600 mg (rounded from 587 mg = 10 mg/kg ? 58.7 kg Order-specific weight), intravenous, at 168 mL/hr, Administer over 20 Minutes, Once in surgery, OR use only, Starting on Sun01/07/18 at 0739, For 1 dose, Intra-Op tranexamic acid 8 mg/mL in New Bag 01/07/2018 12:38 PM AUDIO TAPE LIBRARIAN 2 m g/kg/hr 14.7 mL/hr NaCl 0.9% [...] documented as of this encounter Care Teams Cycle Counter Relationship Specialty Start Date End Date Kandi Alberts, TATY, C.N.P. PCP - General 07/27/16 07/10/[address] [address] documented as of this encounter
--- OUTSIDE RECORDS SUMMARY | 2022-01-11 09:44 | XMS_ITS | Encounter Summary ---
:1985 Author Organization [facility] Address [address] [place] [address] Care Team Providers Name Role Phone Kandi Alberts APRN C.N.PGordon Primary Care Provider [phone] Reason for Referral Outpatient (Routine) - Closed Specialty Diagnoses / Procedures Referred By Contact Refer july To Contact Pain Medicine Diagnoses [facility] [place] Lumbar Spine Transforaminal Epidural Injection Left GA INJ ANES FORAMEN EPI LUMB SNGL HC INJ ANES FORAMEN EPI LUMB SNGL GA INJ ANES FORAMEN EPI LUMB SNGL M.D. [address] [place] [phone] Referral ID Status Reason Start Date Expiration Date Visits Requ ested Visits Authorized [id number] Closed 03/27/2018 03/27/2019 1 1 ENT SUPPORT SPECIALIST Reason for Visit Outpatient (Routine) - Closed Specialty Diagnoses / Procedures Referred By Contact Refer july To Contact Orthopedic Surgery Bridger Caldwell M .D. [facility] [address] [place] [address] Referral ID Status Reason Start Date Expiration Date Visits Requ ested Visits Authorized [id number] Closed 01/07/2018 01/07/2019 1 1 Encounter Details Date Type Department Care Team Description 03/27/2018 Office Visit Department of Bri Mtz [facility] Lumbar Orthopedic Surgery fazal Higgins M.D. (Primary Dx) [place], [place] [address] [place] [address] [place] [phone] Social History Tobacco Use Types Packs/Day Years [...] How often do you attend sabianism or voodoo Never 01/31/2019 services? Do you belong to any clubs or organizations such as 01/31/2019 sabianism groups, unions, fraternal or athletic [...] Date Recorded Female 01/11/2018 2:20 PM PATIENT SUPPORT SPECIALIST documented as of this encounter Progress [...] and/or coordination of care as described above. ENT SUPPORT SPECIALIST documented in this encounter Plan of Treatment Not on filedocumented as of this encounter Results FL LUMBAR SPINE TRANSFORAMINAL EPIDURAL INJECTION LEFT (04/17/2018 1:22 PM PATIENT SUPPORT SPECIALIST) Specimen (Source) Anatomical Location Collection Method / Collectio n Time Received Time / Laterality Volume Narrative Donavan Pisano M.D. - 04/17/2018 1:10 PM PATIENT SUPPORT SPECIALIST Donavan Pisano M.D. ? 04/17/2018 ??1:30 PM [...] decision maker.: ??Consent for transfusion was obtained [place] protocol: ??All relevant documentation and testin g [...] documented as of this encounter Care Teams Ship Wirer Relationship Specialty Start Date End Date Kandi Alberts, TATY, C.N.P. PCP - General 07/27/16 07/10/[address] [phone] documented as of this encounter
--- OUTSIDE RECORDS SUMMARY | 2022-01-11 09:44 | XMS_ITS | Encounter Summary ---
:1985 Author Organization [facility] Address [address] [place] [address] Care Team Providers Name Role Phone Kandi Alberts APRN C.N.P. Primary Care Provider [phone] Encounter Details Date Type Department Care Team Description 03/01/2018 Orders Only Department of Aster Correa Abnormal La boratory Orthopedic Surgery in DAVID POSEY, M.S. Results (Primary Dx) [place], [place] [address] [facility] [address] [place] [phone] Social History Tobacco Use Types Packs/Day Years [...] How often do you attend buddhist or anabaptist Never 01/31/2019 services? 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/2018 2:20 PM CHOCOLATE MAKER documented as of this encounter Plan of Treatment Not on filedocumented as of this encounter Results CRP (C-Reactive Protein) (03/27/2018 1:16 PM CHOCOLATE MAKER) P athologist Signature C-Reactive <3.0 <=8.0 mg/L 03/27/2018 [facility] Protein (CRP), 2:23 PM CHOCOLATE MAKER [facility] - S [facility] Specimen Anatomical Collection Method Collection Time Receive d Time (Source) Location / / Volume Laterality Blood (Blood, 03/27/2018 1:16 PM 03/27/19 19 1:38 Venous) CHOCOLATE MAKER PM CHOCOLATE MAKER DAVID Joseph APRN, M.S. LAB BLOOD ADD-ON Performing Organization Address City/[facility] Code Phon e Number [facility]IES - [address] [place] [phone] [facility] Sedimentation Rate (03/27/2018 1:16 PM CHOCOLATE MAKER) [facility] Method Time Signature Sedimentation 5 0 - 29 03/27/2018 [facility] Rate, B mm/1 h 3:59 PM [facility]OCOLATE [facility]ER [facility] - [facility] Specimen Anatomical Collection Method Collection Time Receive d Time (Source) Location / / Volume Laterality Blood (Blood, 03/27/2018 1:16 PM 03/27/19 19 1:37 Venous) CHOCOLATE MAKER PM CHOCOLATE MAKER DAVID Joseph APRN, M.S. LAB BLOOD ADD-ON Performing Organization Address City/State/[facility] Phon e Number [facility]IES - [address] [place] [phone] 05 [facility] (ABNORMAL) CBC with Differential, Blood (03/27/2018 1:16 PM CHOCOLATE MAKER) [facility] gist Method Time Signature Hemoglobin 12.8 11.6 - 03/27/2018 [facility] 15.0 g/dL 1:46 PM [facility] - [facility] Hematocrit 38.6 35.5 - 03/27/2018 [facility] 44.9 % 1:46 PM [facility] - [facility] Erythrocytes 4.45 3.92 - 03/27/2018 [facility] 5.13 1:46 PM [facility] - x10(12)/L [facility] MCV 86.7 78.2 - 03/27/2018 [facility] 97.9 fL 1:46 PM [facility] - [facility] RBC Distrib 12.1 (L) 12.2 - 03/27/2018 [facility] Width 16.1 % 1:46 PM [facility] - [facility] Platelet Count 222 157 - 371 03/27/2018 [facility] x10(9)/L 1:46 PM [facility] - [facility] Leukocytes 6.6 3.4 - 9.6 03/27/2018 [facility] x10(9)/L 1:46 PM [facility] - [facility] Neutrophils 4.16 1.56 - 03/27/2018 [facility] 6.45 1:46 PM [facility] - x10(9)/L [facility] Lymphocytes 1.92 0.95 - 03/27/2018 [facility] 3.07 1:46 PM [facility] - x10(9)/L [facility] Monocytes 0.39 0.26 - 03/27/2018 [facility] 0.81 1:46 PM [facility] - x10(9)/L [facility] Eosinophils 0.08 0.03 - 03/27/2018 [facility] 0.48 1:46 PM [facility] - x10(9)/L [facility] Basophils 0.03 0.01 - 03/27/2018 [facility] 0.08 1:46 PM [facility] - x10(9)/L [facility] Specimen Anatomical Collection Method Collection Time Receive d Time (Source) Location / / Volume Laterality Blood (Blood, 03/27/2018 1:16 PM 03/27/19 19 1:37 Venous) CHOCOLATE MAKER PM CHOCOLATE MAKER Aster Correa APRN, DATA ASSISTANT, M.S. LAB BLOOD ADD-ON Performing Organization Address City/State/ZIP Code Phon e Number [facility] - [address] [place], [place] [address] [facility] documented in this encounter Visit Diagnoses Diagnosis Abnormal Laboratory Results - Primary documented in this encounter Additional Health Concerns Assessment Noted Time PHQ-9 Depression Total Score: 15 09/28/2017 3:51 PM CD T documented as of this encounter Care Teams Film Tests Checker Relationship Specialty Start Date End Date Kandi Alberts APRN, C.N.P. PCP - General 07/27/16 07/10/[address] [phone] documented as of this encounter
--- OUTSIDE RECORDS SUMMARY | 2022-01-11 09:44 | XMS_ITS | Encounter Summary ---
:1985 Author Organization [facility] Address [address] [place] [address] Care Team Providers Name Role Phone Kandi Ablerts APRN C.N.P. Primary Care Provider [phone] Encounter Details Date Type Department Care Team Description 01/30/2018 Orders Only Hospital Outpatient Ginger Diaz, Procedure Center in [place], [place] [address] [facility] [address] [place] [phone] (Wo rk) Social History Tobacco Use Types [...] How often do you attend episcopal or roman catholic Never 01/31/2019 services? Do [...] Date Recorded Female 01/11/2018 2:20 PM AUDIO VISUAL AIDE documented as of this encounter Plan of Treatment Not on filedocumented as of this encounter Visit Diagnoses Not on filedocumented in this encounter Additional Health Concerns Assessment Noted Time PHQ-9 Depression Total Score: 15 09/28/2017 3:51 PM CD T documented as of this encounter Care Teams Manufacturing Accountant Relationship Specialty Start Date End Date Kandi Alberts, TATY, C.N.P. PCP - General 07/27/16 07/10/[address] [phone] documented as of this encounter
--- OUTSIDE RECORDS SUMMARY | 2022-01-11 09:44 | XMS_ITS | Encounter Summary ---
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 [address] [place] [phone] Referral ID Status Reason Start Date Expiration Date Visits Requ ested Visits Authorized [id number] Closed 01/07/2018 01/07/2019 1 1 LE HYPERION CONSULTANT Outpatient (Routine) - Closed Specialty Diagnoses / Procedures Referred By Contact Refer red To Contact Orthopedic Surgery Bridger Caldwell M .D. [address] [phone] Referral ID Status Reason Start Date Expiration Date Visits Requ ested Visits Authorized [id number] Closed 01/07/2018 01/07/2019 1 1 LE HYPERION CONSULTANT Reason for Visit Auth/Cert Specialty Diagnoses / Procedures Referred By Contact Refer red To Contact Diagnoses Extruded Disc Lumbar Procedures OR LMNOTOMY W DCMPRN 1 SPACE LUMB Decompression Spine - Posterior Lumbar Referral ID Status Reason Start Date Expiration Date Visits Requ ested Visits Authorized [id number] 1 1 Encounter Details Date Type Department Care Team Description 01/07/2018 - Hospital Encounter [facility] Bibi, Pain Low Back Chronic (Primary Dx); 01/08/2018 [facility] M.D. Degeneration Disc Lumbar; [facility], [place] [address] Other Intervertebral Disc Displacement L umbar Region [facility], [place], [place] Eighth Floor [address] [phone] [place], [place] (Work) [phone] Social History Tobacco Use [...] How often do you attend confucianism or moravian Never 01/31/2019 services? Do you [...] Date Recorded Female 01/11/2018 2:20 PM ORACLE HYPERION CONSULTANT documented as of this encounter Last Filed Vital Signs Vital Sign Reading Time Taken Comments Blood Pressure 132/87 01/08/2018 8:00 AM ORACLE HYPERION CONSULTANT Pulse 72 01/08/2018 8:36 AM ORACLE HYPERION CONSULTANT Temperature 36.9 ??C (98.42 ??F) 01/08/2018 8:00 AM ORACLE HYPERION CONSULTANT Respiratory Rate 16 01/08/2018 4:35 AM ORACLE HYPERION CONSULTANT Oxygen Saturation 96% 01/08/2018 8:36 AM ORACLE HYPERION CONSULTANT Inhaled Oxygen Concentration - - Weight 58 kg (127 lb 13.9 oz) 01/07/2018 6:00 AM ORACLE HYPERION CONSULTANT Height 168 cm (5' 6.14) 01/07/2018 6:00 AM ORACLE HYPERION CONSULTANT Body Mass Index 20.55 01/07/2018 6:00 AM ORACLE HYPERION CONSULTANT documented in this encounter Discharge Summaries Billy Mercado M.D. - 01/07/2018 3:41 PM CST DISCHARGE SUMMARY BRIEF OVERVIEW Discharge Provider: Matthias Mtz M.D. Primary Care Providers: Kandi Alberts, TATY, C.N.PGordon (General) [address] [facility] [address] Primary Care Provider Primary Care Provider Other [...] Case IDs Date Procedure Surgeon Location Status [id number] 01/07/18 L5-S1 microdiskectomy nerve root decompression. Matthias [...] were provided to the patient and caregiver(s). LE HYPERION CONSULTANT documented in this encounter Medications at Time [...] today with routine follow-up, patient is from [facility] and would like tofollow up for her wound check in [place] Activity: as tolerated, up with assistance Labs: [...] contact the service of Dr. Mtz at [phone] with any questions or concerns regarding management of this patient. LE HYPERION CONSULTANT Matthias Mtz M.D. - 01/07/2018 8:21 AM [...] This will be through the [facility] program. After this surgery we can [...] she has been moved to second case. LE HYPERION CONSULTANT documented in this encounter H&P Notes Kavin Bailey M.D. - 01/07/2018 2:20 PM CST Post-op: No complication, Awake, not fully alert, Exam as preop with weakness in Left EHL LE HYPERION CONSULTANT Bridger Caldwell M.D. - 01/07/2018 7:55 AM [...] to proceed with surgery. All questions answered. LE HYPERION CONSULTANT documented in this encounter Consult Notes Roshni [...] ortho - spine Onset Date: 01/07/18 Payor: [facility] / Plan: [facility]ARE / Product Type: Medicaid HMO [...] root decompression.; Surgeon: Matthias Mtz M.D.; Location: [facility] OR ??? DILATION AND CURETTAGE OF UTERUS N/A 07/28/2003 D&C - Dilatation and curettage History of Present Illness: microsdiskectomy Prior Function / Occupational Profile Level of [place]: Independent with ADLs and functional transfers, Independent with homemaking with ambulation Lives With: Spouse Receives Help From: Family ADL Assistance: Independent Homemaking Assistance: Independent Driving: Independent Occupational Role: part time employment Home Living Type of Home: House [...] needs met and questions answered. Outcome Measures -[facility] Inpatient Short Form: AM-[facility] Mobility: How much difficulty does the [...] Standardized Score: 61.14 Interpretation: Clinicians answer the -[facility] Inpatient Short Form based on observed [...] G-code Worksheet Functional Assessment Tool Used: PT [facility] Functional Limitation: Mobility: Walking and [...] CMS Modifier: CH Lisa Mcfarland P.T., [employer]ima.PKeyona. LE HYPERION CONSULTANT documented in this encounter Nursing Notes Jahaira [...] be discharge today. Will continue to monitor. LE HYPERION CONSULTANT Salina Mercado R.N. - 01/07/2018 6:20 PM [...] Will continue to monitor as activity increases. LE HYPERION CONSULTANT documented in this encounter OR Notes Op [...] generous decompression. We tried to use a Center 4 to push through the outer margin [...] This will be through the [facility] program. After this surgery we can [...] surgery was identified in accordance with the [facility] protocol. The patient wasthen taken to the [...] and draped in usual sterile fashion. A [facility] pause was called. Procedural pause conducted to [...] joint, preserving the capsule. I placed a [place] under the targeted facet joint. I obtained [...] implants in log * Matthias Mtz M.D. LE HYPERION CONSULTANT Brief Op Note - Kavin Bailey M.D. [...] implants in log * Kavin Bailey M.D. LE HYPERION CONSULTANT documented in this encounter Miscellaneous Notes Hospital [...] the patient was discharged from the hospital. LE HYPERION CONSULTANT documented in this encounter Plan of [...] 01/08/2018 3:14 Resul ts for B AM ORACLE HYPERION CONSULTANT this procedure are in the results section. CBC WITHOUT Routine 01/08/2018 3:14 Results for DIFFERENTIAL, B AM ORACLE HYPERION CONSULTANT this procedu re are in the results section. C-REACTIVE PROTEIN Routine 01/08/2018 3:14 Result s for (CRP), S/P AM ORACLE HYPERION CONSULTANT this procedure are in the results section. ADULT OXYGEN THERAPY Routine 01/07/2018 2:30 PM ORACLE HYPERION CONSULTANT [place] FLUORO LESS THAN RAD - Routine 01/07/2018 2:15 Resu lts for 1 HOUR (most inpatients PM ORACLE HYPERION CONSULTANT this proced ure and all are in the outpatients) results section. DECOMPRESSION SPINE 01/07/2018 Stenosis Spinal - POSTERIOR LUMBAR 11:40 AM ORACLE HYPERION CONSULTANT Lumbar With Neurogenic Claudication documented in this encounter Results DX Lumbar Spine 2-3 Views (03/27/2018 1:40 PM ORACLE HYPERION CONSULTANT) Anatomical Region Laterality Modality Lumbar Spine, Musculoskeletal RST LOS, Neuroradiology N/A Digital Radiography ARZ LOS, Muskuloskeletal FLA LOS Specimen (Source) Anatomical Collection Method Collection Time Re ceived Time Location / / Volume Laterality 03/27/2018 1:46 PM ORACLE HYPERION CONSULTANT Impressions 03/27/2018 1:48 PM ORACLE HYPERION CONSULTANT IMPRESSION: ??Partial L5-S1 laminectomy on the left. Narrowed lumbosacral interspace with facet arthritis. Mild de generative change left hip with some prominence at the femoral head/neck offs et. Narrative 03/27/2018 1:48 PM ORACLE HYPERION CONSULTANT EXAM: ??DX LUMBAR SPINE 2-3 VIEWS Procedure [...] DURES CRP (C-Reactive Protein) (01/08/2018 3:14 AM ORACLE HYPERION CONSULTANT) P athologist Signature C-Reactive 4.5 <=8.0 mg/L 01/08/2018 [facility] Protein (CRP), 4:44 AM ORACLE HYPERION CONSULTANT LABORATORIES - S [facility] Specimen Anatomical Collection Method Collection Time Receive d Time (Source) Location / / Volume Laterality Blood (Blood, 01/08/2018 3:14 AM 01/09/20 18 4:08 Venous) ORACLE HYPERION CONSULTANT AM ORACLE HYPERION CONSULTANT Billy Mercado M.D. LAB BLOOD ADD-ON Performing Organization Address City/[facility] Phon e Number [facility]ORATORIES - [address] [place] [address] 05 [facility] Sedimentation Rate (01/08/2018 3:14 AM ORACLE HYPERION CONSULTANT) [facility] Method Time Signature Sedimentation 7 0 - 29 01/08/2018 [facility] Rate, B mm/1 h 5:14 AM ORACLE HYPERION CONSULTANT LABORATORIES - [facility] Specimen Anatomical Collection Method Collection Time Receive d Time (Source) Location / / Volume Laterality Blood (Blood, 01/08/2018 3:14 AM 01/09/20 18 4:04 Venous) ORACLE HYPERION CONSULTANT AM ORACLE HYPERION CONSULTANT Billy Mercado M.D. LAB BLOOD ADD-ON Performing Organization Address City/State/[facility] Phon e Number [facility] - [address] [place] [address] [facility] (ABNORMAL) CBC without Differential (01/08/2018 3:14 AM ORACLE HYPERION CONSULTANT) [facility] Method Time Signature Hemoglobin 11.8 11.6 - 01/08/2018 [facility] 15.0 g/dL 4:16 AM ORACLE HYPERION CONSULTANT LABORATORIES [facility] Hematocrit 35.7 35.5 - 01/08/2018 [facility] 44.9 % 4:16 AM ORACLE HYPERION CONSULTANT LABORATORIES [facility] Erythrocytes 4.07 3.92 - 01/08/2018 [facility] 5.13 4:16 AM ORACLE HYPERION CONSULTANT LABORATORIES - x10(12)/L [facility] MCV 87.7 78.2 - 01/08/2018 [facility] 97.9 fL 4:16 AM ORACLE HYPERION CONSULTANT LABORATORIES [facility] RBC Distrib 11.6 (L) 12.2 - 01/08/2018 [facility] Width 16.1 % 4:16 AM ORACLE HYPERION CONSULTANT LABORATORIES [facility] Platelet Count 226 157 - 371 01/08/2018 [facility] x10(9)/L 4:16 AM ORACLE HYPERION CONSULTANT LABORATORIES [facility] Leukocytes 14.6 (H) 3.4 - 9.6 01/08/2018 [facility] x10(9)/L 4:16 AM ORACLE HYPERION CONSULTANT LABORATORIES - [facility] Specimen Anatomical Collection Method Collection Time Receive d Time (Source) Location / / Volume Laterality Blood (Blood, 01/08/2018 3:14 AM 01/09/20 18 4:08 Venous) ORACLE HYPERION CONSULTANT AM ORACLE HYPERION CONSULTANT Billy Mercado M.D. LAB BLOOD ADD-ON Performing Organization Address City/State/ZIP Code Phon e Number [facility] - [address] [place], [place] [address] [facility] [place] Fluoro Less Than 1 Hour (01/07/2018 2:15 PM ORACLE HYPERION CONSULTANT) Specimen (Source) Anatomical Location Collection Method / Collectio n Time Received Time / Laterality Volume Narrative 152 HOS LOS RST - 01/07/2018 2:15 PM ORACLE HYPERION CONSULTANT This exam does not require a radiologist [...] tablet 1,000 mg Given 01/07/2018 7:14 AM ORACLE HYPERION CONSULTANT 1,000 mg (TYLENOL) 1,000 mg, oral, Once, On Sun01/07/18 at 0615, For 1 dose, Pre-Op, In PreOp holding (PWA) acetaminophen tablet 1,000 mg (TYLENOL) Given 01/08/2018 8:06 AM ORACLE HYPERION CONSULTANT 1,000 mg 1,000 mg, oral, 4 times daily, First dose on Sun01/07/18 at 1700, Not to exceed 4 grams in 24 hours. Given 01/07/2018 8:04 PM ORACLE HYPERION CONSULTANT 1,000 mg Given 01/07/2018 5:42 PM ORACLE HYPERION CONSULTANT 1,000 mg buPROPion 12 hr tablet 200 mg (WELLBUTRI N SR) Given 01/08/2018 8:05 AM ORACLE HYPERION CONSULTANT 200 mg 200 mg, oral, Daily, First dose on Sun01/08/18 at 0900, Swallow whole. Do NOT crush, chew, or split tablet. ceFAZolin in dextrose (iso-os) IVPB 2 New Bag 01/08/2018 4:58 AM ORACLE HYPERION CONSULTANT 2 g 200 mL/hr g (ANCEF) 2 g, intravenous, at 200 mL/hr, Administer over 30 Minutes, Every 8 hours, First dose on Sun01/07/18 at 2000, For 2 doses, Start within 8 hours of last IV dose. premix, Drug Monitoring Program: Pharmacist to adjust medication dosing based on indication and drug clearance factors., Indications: Prophylaxis, surgical New Bag 01/07/2018 7:34 PM ORACLE HYPERION CONSULTANT 2 g 200 mL/hr fentaNYL injection 25 mcg (SUBLIMAZE) Given 01/07/2018 2:34 PM ORACLE HYPERION CONSULTANT 25 mcg 25 mcg, intravenous, Every 2 min PRN, For pain 4 or greater (maximum 100 mcg). If max dose of Fentanyl is reached and if pain is greater than 4, discontinue Fentanyl: give Hydromorphone, Starting on Sun01/07/18 at 1429, PACU (only) gabapentin capsule 300 mg (NEURONTIN) Given 01/07/2018 7:14 AM ORACLE HYPERION CONSULTANT 300 mg 300 mg, oral, Once, On Sun01/07/18 at 0615, For 1 dose, Pre-Op, preprocedure on unit with sips, Drug Monitoring Program: Pharmacist to adjust medication dosing based on indication and drug clearance factors. gabapentin capsule 300 mg (NEURONTIN) Given 01/07/2018 8:04 PM ORACLE HYPERION CONSULTANT 300 mg 300 mg, oral, Daily at bedtime, First dose on Sun01/07/18 at 2100 ibuprofen tablet 600 mg (ADVIL,MOTRIN) 600 mg, oral, Every 6 hours, First dose on Sun 8 at 1600, Start 6 hours after last ketorolac dose administered ketorolac injection 15 mg (TORADOL) Given 01/08/2018 4:58 AM ORACLE HYPERION CONSULTANT 15 mg 15 mg, intravenous, Every 6 hours, First dose on Sun01/07/18 at 1600, For 4 doses, Start no sooner than 6 hours after last intra-operative dose Adult IV push rate: Over 15 seconds. Peds IV push rate: Over 1 minute. 60 mg dose only for IM, not recommended for IV. Given 01/07/2018 10:47 PM ORACLE HYPERION CONSULTANT 15 mg Given 01/07/2018 3:57 PM ORACLE HYPERION CONSULTANT 15 mg lactated ringers New Bag 01/07/2018 3:34 PM ORACLE HYPERION CONSULTANT 100 mL/hr 100 mL/hr 100 mL/hr, intravenous, Continuous, Starting on Sun01/07/18 at 1415, PACU & Post-Op oxyCODONE IR tablet 10 mg (ROXICODONE) Given 01/08/2018 12:22 AM ORACLE HYPERION CONSULTANT 10 mg 10 mg, oral, Every 4 hours PRN, severe pain or score 7-10 of 10, or pain greater than comfort goal if other analgesics fail, Starting on Sun01/07/18 at 1532, Maximum dose of 10 mg in 4 hours. Given 01/07/2018 8:04 PM ORACLE HYPERION CONSULTANT 10 mg oxyCODONE IR tablet 5 mg (ROXICODONE) Given 01/08/2018 8:06 AM ORACLE HYPERION CONSULTANT 5 mg 5 mg, oral, Every 4 hours PRN, moderate pain or score 4-6 of 10, if other analgesics fail, Starting on Sun01/07/18 at 1532, Maximum dose of 10 mg in 4 hours sennosides-docusate sodium 8.6-50 mg per Given 01/07/2018 8:03 P M ORACLE HYPERION CONSULTANT 1 tablet tablet 1 tablet (SENOKOT-S) 1 tablet, oral, 2 times daily, First dose on Sun01/07/18 at 2100, for constipation documented in this encounter Active and Recently Administered Medications Times are shown in ORACLE HYPERION CONSULTANT. Scheduled Medication Order 01/06/2018 01/07/2018 01/08/2018 acetaminophen [...] 1230 (Given - Provider: Fransisco Wright APRN, HATCH SUPERVISOR, D.N.P.) 2,000 mg (rounded from 1,450 mg [...] ondansetron. fentaNYL injection 25 mcg (SUBLIMAZE) (CANCELED) 7224 (Given - Provider: Francoise Hoover, RGordonNGordon) 25 [...] (New Bag - Provider: Fransisco Wright APRN, HATCH SUPERVISOR, D.N.P.) 600 mg (rounded from 587 mg [...] documented as of this encounter Care Teams Canal Equipment Maintenance Supervisor Relationship Specialty Start Date End Date Kandi Alberts, TATY, C.N.P. PCP - General 07/27/16 07/10/[address] [phone] documented as of this encounter
--- OUTSIDE RECORDS SUMMARY | 2022-01-11 09:44 | XMS_ITS | Encounter Summary ---
:1985 Author Organization [facility] Address [address] [place] [address] Care Team Providers Name Role Phone Kandi Alberts APRN C.NGordonPGordon Primary Care Provider [phone] Encounter Details Date Type Department Care Team Description 01/25/2018 Documentation Department of Orthopedic Matthias Mtz[facility] [place] [address] [address] [facility] [address] [place] [address] [phone] (Wo rk) Social History Tobacco Use Types [...] How often do you attend anglican or jewish Never 01/31/2019 services? Do you [...] Date Recorded Female 01/11/2018 2:20 PM HEALTH MANAGER documented as of this encounter Progress [...] acute radiculitis/sciatica 3. Consider left S1 TF-RITA TH MANAGER documented in this encounter Plan of Treatment Not on filedocumented as of this encounter Visit Diagnoses Not on filedocumented in this encounter Additional Health Concerns Assessment Noted Time PHQ-9 Depression Total Score: 15 09/28/2017 3:51 PM CD T documented as of this encounter Care Teams Electro Winning Operator Relationship Specialty Start Date End Date Kandi Alberts, TATY, C.N.P. PCP - General 07/27/16 07/10/18 [address], [place] [address] documented as of this encounter
--- OUTSIDE RECORDS SUMMARY | 2022-01-11 09:44 | XMS_ITS | Encounter Summary ---
:[address] [facility] Address [address] [place] [address] Care Team Providers Name Role Phone Kandi Alberts APRN C.N.PGordon Primary Care Provider [phone] Encounter Details Date Type Department Care Team Description 01/16/2018 Hospital Encounter Department of [place], Radiculo blanca Lumbar Laboratory Medicine Matthias Higgins M.D . and Pathology, [address] [place] [address] in [place], [place] [phone] [place] [address] [place], [place] (Work) [phone] Social History Tobacco Use Types Packs/Day Years [...] How often do you attend methodist or yazdanism Never 01/31/2019 services? 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/2018 2:20 PM KINESIOLOGIST documented as of this encounter Medications at [...] Resu lts for this DIFFERENTIAL, B PM KINESIOLOGIST procedure ar e in the results section. C-REACTIVE PROTEIN Routine 01/16/2018 1:27 Radiculopathy Lumba r Results for this (CRP), S/P PM KINESIOLOGIST procedure are i n the results section. SEDIMENTATION RATE, B Routine 01/16/2018 1:26 Radiculopathy Kristin mbar Results for this PM KINESIOLOGIST procedure are i n the results section. documented in this encounter Results CRP (C-Reactive Protein) (01/16/2018 1:27 PM KINESIOLOGIST) P athologist Signature C-Reactive <3.0 <=8.0 mg/L 01/16/2018 [facility] Protein (CRP), 2:40 PM KINESIOLOGIST LABORATORIES - S [facility] Specimen Anatomical Collection Method Collection Time Receive d Time (Source) Location / / Volume Laterality Blood (Blood, 01/16/2018 1:27 PM 01/17/20 18 1:49 Venous) KINESIOLOGIST PM KINESIOLOGIST Matthias Mtz M.D. LAB BLOOD ADD-ON Performing Organization Address City/State/ZIP Code Phon e Number [facility]ORATORIES - [address] [place], [place] [address] [facility] (ABNORMAL) CBC with Differential, Blood (01/16/2018 1:27 PM KINESIOLOGIST) [facility] gist Method Time Signature Hemoglobin 13.9 11.6 - 01/16/2018 [facility] 15.0 g/dL 1:57 PM KINESIOLOGIST LAB[facility] - [facility] Hematocrit 42.8 35.5 - 01/16/2018 [facility] 44.9 % 1:57 PM KINESIOLOGIST LAB[facility]ATORIES - [facility] Erythrocytes 4.84 3.92 - 01/16/2018 [facility] 5.13 1:57 PM KINESIOLOGIST LABORATORIES - x10(12)/L [facility] MCV 88.4 78.2 - 01/16/2018 [facility] 97.9 fL 1:57 PM KINESIOLOGIST LAB[facility]ATORIES - [facility] RBC Distrib 11.8 (L) 12.2 - 01/16/2018 [facility] Width 16.1 % 1:57 PM KINESIOLOGIST [facility] - [facility] Platelet Count 308 157 - 371 01/16/2018 [facility] x10(9)/L 1:57 PM KINESIOLOGIST LAB[facility]IES - [facility] Leukocytes 11.7 (H) 3.4 - 9.6 01/16/2018 [facility] x10(9)/L 1:57 PM KINESIOLOGIST [facility] - [facility] Neutrophils 7.59 (H) 1.56 - 01/16/2018 [facility] 6.45 1:57 PM KINESIOLOGIST LABORATORIES - x10(9)/L [facility] Lymphocytes 3.08 (H) 0.95 - 01/16/2018 [facility] 3.07 1:57 PM KINESIOLOGIST LABORATORIES - x10(9)/L [facility] Monocytes 0.81 0.26 - 01/16/2018 [facility] 0.81 1:57 PM KINESIOLOGIST LABORATORIES - x10(9)/L [facility] Eosinophils 0.12 0.03 - 01/16/2018 [facility] 0.48 1:57 PM KINESIOLOGIST LABORATORIES - x10(9)/L [facility] Basophils 0.05 0.01 - 01/16/2018 [facility] 0.08 1:57 PM KINESIOLOGIST LABORATORIES - x10(9)/L [facility] Specimen Anatomical Collection Method Collection Time Receive d Time (Source) Location / / Volume Laterality Blood (Blood, 01/16/2018 1:27 PM 01/17/20 18 1:49 Venous) KINESIOLOGIST PM KINESIOLOGIST Matthias Mtz M.D. LAB BLOOD ADD-ON Performing Organization Address City/[facility]/ZIP Code Phon e Number [facility]IES - [address] [place], [place] [address] [facility] Sedimentation Rate (01/16/2018 1:26 PM KINESIOLOGIST) [facility] gist Method Time Signature Sedimentation 6 0 - 29 01/16/2018 [facility] Rate, B mm/1 h 3:48 PM KINESIOLOGIST [facility] - [facility] Specimen Anatomical Collection Method Collection Time Receive d Time (Source) Location / / Volume Laterality Blood (Blood, 01/16/2018 1:26 PM 01/17/20 18 1:49 Venous) KINESIOLOGIST PM KINESIOLOGIST Matthias Mtz M.D. LAB BLOOD ADD-ON Performing Organization Address City/[facility] Code Phon e Number [facility]IES - [address] [place], [place] [address] [facility] documented in this encounter Visit Diagnoses Diagnosis Radiculopathy Lumbar documented in this encounter Additional Health Concerns Assessment Noted Time PHQ-9 Depression Total Score: 15 09/28/2017 3:51 PM CD T documented as of this encounter Care Teams Child Development Assistant Relationship Specialty Start Date End Date Kandi Alberts, TATY, C.N.P. PCP - General 07/27/16 07/10/[address] [phone] documented as of this encounter
--- OUTSIDE RECORDS SUMMARY | 2022-01-11 09:44 | XMS_ITS | Encounter Summary ---
:1985 Author Organization [facility] Address [address] [place] [address] Care Team Providers Name Role Phone Kandi Alberts APRN C.N.P. Primary Care Provider [phone] Reason for Visit Auth/Cert Specialty Diagnoses / Procedures Referred By Contact Refer red To Contact Diagnoses Extruded Disc Lumbar Procedures IN LMNOTOMY W DCMPRN 1 SPACE LUMB Decompression Spine - Posterior Lumbar Referral ID Status Reason Start Date Expiration Date Visits Requ ested Visits Authorized [id number] 1 1 Encounter Details Date Type Department Care Team Description 01/07/2018 Surgery RST ROMB MAIN OR Matthias Mtz L5-S1 microdiskectomy nerve [address] [facility] Olu Higgins root decompression. [place], [place] [address] [facility] [place] [address] [place], [place] [phone] [address] Social History Tobacco Use Types Packs/Day Years [...] How often do you attend anglican or bahai Never 01/31/2019 services? 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/2018 2:20 PM SLAG SKIMMER documented as of this encounter Last Filed Vital Signs Vital Sign Reading Time Taken Comments Blood Pressure 97/55 01/07/2018 5:00 PM SLAG SKIMMER Pulse 74 01/07/2018 5:30 PM SLAG SKIMMER Temperature 36.6 ??C (97.88 ??F) 01/07/2018 3:30 PM SLAG SKIMMER Respiratory Rate 14 01/07/2018 3:30 PM SLAG SKIMMER Oxygen Saturation 98% 01/07/2018 5:30 PM SLAG SKIMMER Inhaled Oxygen Concentration - - Weight 58 kg (127 lb 13.9 oz) 01/07/2018 6:00 AM SLAG SKIMMER Height 168 cm (5' 6.14) 01/07/2018 6:00 AM SLAG SKIMMER Body Mass Index 20.55 01/07/2018 6:00 AM SLAG SKIMMER documented in this encounter Discharge Summaries Billy Mercado M.D. - 01/07/2018 3:41 PM CST DISCHARGE SUMMARY BRIEF OVERVIEW Discharge Provider: Matthias Mtz M.D. Primary Care Providers: Kandi Alberts, TATY, C.N.P. (General) [address] [address] Primary Care Provider Primary Care Provider Other [...] Case IDs Date Procedure Surgeon Location Status [id number] 01/07/18 L5-S1 microdiskectomy nerve root decompression. Matthias [...] were provided to the patient and caregiver(s). SKIMMER documented in this encounter Medications at Time [...] today with routine follow-up, patient is from [facility] and would like tofollow up for her wound check in [place] Activity: as tolerated, up with assistance Labs: [...] contact the service of Dr. Mtz at [phone] with any questions or concerns regarding management of this patient. SKIMMER Matthias Mtz M.D. - 01/07/2018 8:21 AM [...] at length. This will be through the [facility] program. After this surgery we can [...] she has been moved to second case. SKIMMER documented in this encounter H&P Notes Kavin Bailey M.D. - 01/07/2018 2:20 PM CST Post-op: No complication, Awake, not fully alert, Exam as preop with weakness in Left EHL SKIMMER Bridger Caldwell M.D. - 01/07/2018 7:55 AM [...] to proceed with surgery. All questions answered. SKIMMER documented in this encounter Consult Notes Roshni [...] spine Onset Date: 01/07/18 Payor: [facility] / Plan: Extended Stay [place] [facility]ARE / Product Type: Medicaid HMO / [...] root decompression.; Surgeon: Matthias Mtz M.D.; Location: [facility] OR ??? 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 SKIMMER documented in this encounter Nursing Notes Jahaira [...] be discharge today. Will continue to monitor. SKIMMER Salina Mercado R.N. - 01/07/2018 6:20 PM [...] Will continue to monitor as activity increases. SKIMMER documented in this encounter OR Notes Op [...] generous decompression. We tried to use a [place] 4 to push through the outer margin [...] at length. This will be through the [facility] program. After this surgery we can [...] surgery was identified in accordance with the [facility] protocol. The patient wasthen taken to the [...] and draped in usual sterile fashion. A [facility] pause was called. Procedural pause conducted to [...] joint, preserving the capsule. I placed a [place] under the targeted facet joint. I obtained [...] implants in log * Matthias Mtz M.D. SKIMMER Brief Op Note - Kavin Bailey M.D. [...] implants in log * Kavin Bailey M.D. SKIMMER documented in this encounter Miscellaneous Notes Hospital [...] the patient was discharged from the hospital. SKIMMER documented in this encounter Plan of Treatment [...] 01/08/2018 3:14 Resul ts for B AM SLAG SKIMMER this procedure are in the results section. CBC WITHOUT Routine 01/08/2018 3:14 Results for DIFFERENTIAL, B AM SLAG SKIMMER this procedu re are in the results section. C-REACTIVE PROTEIN Routine 01/08/2018 3:14 Result s for (CRP), S/P AM SLAG SKIMMER this procedure are in the results section. ADULT OXYGEN THERAPY Routine 01/07/2018 2:30 PM SLAG SKIMMER FL FLUORO LESS THAN RAD - Routine 01/07/2018 2:15 Resu lts for 1 HOUR (most inpatients PM SLAG SKIMMER this proced ure and all are in the outpatients) results section. DECOMPRESSION SPINE 01/07/2018 Stenosis Spinal - POSTERIOR LUMBAR 11:40 AM SLAG SKIMMER Lumbar With Neurogenic Claudication documented in this encounter Results DX Lumbar Spine 2-3 Views (03/27/2018 1:40 PM SLAG SKIMMER) Anatomical Region Laterality Modality Lumbar Spine, Musculoskeletal RST LOS, Neuroradiology N/A Digital Radiography ARZ LOS, Muskuloskeletal FLA LOS Specimen (Source) Anatomical Collection Method Collection Time Re ceived Time Location / / Volume Laterality 03/27/2018 1:46 PM SLAG SKIMMER Impressions 03/27/2018 1:48 PM SLAG SKIMMER IMPRESSION: ??Partial L5-S1 laminectomy on the left. Narrowed lumbosacral interspace with facet arthritis. Mild de generative change left hip with some prominence at the femoral head/neck offs et. Narrative 03/27/2018 1:48 PM SLAG SKIMMER EXAM: ??DX LUMBAR SPINE 2-3 VIEWS Procedure [...] LIZ CRP (C-Reactive Protein) (01/08/2018 3:14 AM SLAG SKIMMER) P athologist Signature C-Reactive 4.5 <=8.0 mg/L 01/08/2018 [facility] Protein (CRP), 4:44 AM SLAG SKIMMER LABORATORIES - [facility] Specimen Anatomical Collection Method Collection Time Receive d Time (Source) Location / / Volume Laterality Blood (Blood, 01/08/2018 3:14 AM 01/09/20 18 4:08 Venous) SLAG SKIMMER AM SLAG SKIMMER Billy Mercado M.D. LAB BLOOD ADD-ON Performing Organization Address City/State/ZIP Code Phon e Number [facility] - [address] [place], [place] [address] [facility] Sedimentation Rate (01/08/2018 3:14 AM SLAG SKIMMER) Patholo gist Method Time Signature Sedimentation 7 0 - 29 01/08/2018 [facility] Rate, B mm/1 h 5:14 AM SLAG SKIMMER LABORATORIES - [facility] Specimen Anatomical Collection Method Collection Time Receive d Time (Source) Location / / Volume Laterality Blood (Blood, 01/08/2018 3:14 AM 01/09/20 18 4:04 Venous) SLAG SKIMMER AM SLAG SKIMMER Billy Mercado M.D. LAB BLOOD ADD-ON Performing Organization Address [facility] Phon e Number [facility] - [address] [place] [address] [facility] (ABNORMAL) CBC without Differential (01/08/2018 3:14 AM SLAG SKIMMER) [facility] gist Method Time Signature Hemoglobin 11.8 11.6 - 01/08/2018 [facility] 15.0 g/dL 4:16 AM [facility] Hematocrit 35.7 35.5 - 01/08/2018 [facility] 44.9 % 4:16 AM [facility] Erythrocytes 4.07 3.92 - 01/08/2018 [facility] 5.13 4:16 AM SLAG SKIMMER LABORATORIES - x10(12)/L [facility] MCV 87.7 78.2 - 01/08/2018 [facility] 97.9 fL 4:16 AM [facility] RBC Distrib 11.6 (L) 12.2 - 01/08/2018 [facility] Width 16.1 % 4:16 AM [facility] Platelet Count 226 157 - 371 01/08/2018 [facility] x10(9)/L 4:16 AM [facility] Leukocytes 14.6 (H) 3.4 - 9.6 01/08/2018 [facility] x10(9)/L 4:16 AM [facility] Specimen Anatomical Collection Method Collection Time Receive d Time (Source) Location / / Volume Laterality Blood (Blood, 01/08/2018 3:14 AM 01/09/20 18 4:08 Venous) SLAG SKIMMER AM SLAG SKIMMER Billy Mercado M.D. LAB BLOOD ADD-ON Performing Organization Address City/[facility] Code Phon e Number [facility] - [address] [place] [address] [facility] FL Fluoro Less Than 1 Hour (01/07/2018 2:15 PM SLAG SKIMMER) Specimen (Source) Anatomical Location Collection Method / Collectio n Time Received Time / Laterality Volume Narrative 152 HOS LOS RST - 01/07/2018 2:15 PM SLAG SKIMMER This exam does not require a radiologist review or interpretation. Please refer to the patient's medical record on this date for clinical details. Billy Mercado M.D. IMG FLUOROSCOPY PROCEDURES Performing Organization Address City/[facility] Phon e Number 152 HOS LOS RST [...] tablet 1,000 mg Given 01/07/2018 7:14 AM SLAG SKIMMER 1,000 mg (TYLENOL) 1,000 mg, oral, Once, On Sun01/07/18 at 0615, For 1 dose, Pre-Op, In PreOp holding (PWA) acetaminophen tablet 1,000 mg (TYLENOL) Given 01/08/2018 8:06 AM SLAG SKIMMER 1,000 mg 1,000 mg, oral, 4 times daily, First dose on Sun01/07/18 at 1700, Not to exceed 4 grams in 24 hours. Given 01/07/2018 8:04 PM SLAG SKIMMER 1,000 mg Given 01/07/2018 5:42 PM SLAG SKIMMER 1,000 mg bupivacaine liposome (PF) 266 mg/20 mL Given 01/07/2018 2:04 PM SLAG SKIMMER 20 mL Back (13.3 mg/mL) injection 20 mL (EXPAREL) 20 mL, infiltration, Once in surgery, OR use only, Starting on Sun01/07/18 at 0739, For 1 dose, Intra-Op buPROPion 12 hr tablet 200 mg (WELLBUTRI N SR) Given 01/08/2018 8:05 AM SLAG SKIMMER 200 mg 200 mg, oral, Daily, First dose on Sun01/08/18 at 0900, Swallow whole. Do NOT crush, chew, or split tablet. ceFAZolin in dextrose (iso-os) IVPB 2 New Bag 01/08/2018 4:58 AM SLAG SKIMMER 2 g 200 mL/hr g (ANCEF) 2 g, intravenous, at 200 mL/hr, Administer over 30 Minutes, Every 8 hours, First dose on Sun01/07/18 at 2000, For 2 doses, Start within 8 hours of last IV dose. premix, Drug Monitoring Program: Pharmacist to adjust medication dosing based on indication and drug clearance factors., Indications: Prophylaxis, surgical New Bag 01/07/2018 7:34 PM SLAG SKIMMER 2 g 200 mL/hr fentaNYL injection 25 mcg (SUBLIMAZE) Given 01/07/2018 2:34 PM SLAG SKIMMER 25 mcg 25 mcg, intravenous, Every 2 min PRN, For pain 4 or greater (maximum 100 mcg). If max dose of Fentanyl is reached and if pain is greater than 4, discontinue Fentanyl: give Hydromorphone, Starting on Sun01/07/18 at 1429, PACU (only) gabapentin capsule 300 mg (NEURONTIN) Given 01/07/2018 7:14 AM SLAG SKIMMER 300 mg 300 mg, oral, Once, On Sun01/07/18 at 0615, For 1 dose, Pre-Op, preprocedure on unit with sips, Drug Monitoring Program: Pharmacist to adjust medication dosing based on indication and drug clearance factors. gabapentin capsule 300 mg (NEURONTIN) Given 01/07/2018 8:04 PM SLAG SKIMMER 300 mg 300 mg, oral, Daily at bedtime, First dose on Sun01/07/18 at 2100 gelatin absorbable powder (GELFOAM) Given 01/07/2018 1:35 PM SLAG SKIMMER 1 g Back As needed, Starting on Sun01/07/18 at 1335, Intra-Op ibuprofen tablet 600 mg (ADVIL,MOTRIN) 600 mg, oral, Every 6 hours, First dose on Sun 8 at 1600, Start 6 hours after last ketorolac dose administered ketorolac injection 15 mg (TORADOL) Given 01/08/2018 4:58 AM SLAG SKIMMER 15 mg 15 mg, intravenous, Every 6 hours, First dose on Sun01/07/18 at 1600, For 4 doses, Start no sooner than 6 hours after last intra-operative dose Adult IV push rate: Over 15 seconds. Peds IV push rate: Over 1 minute. 60 mg dose only for IM, not recommended for IV. Given 01/07/2018 10:47 PM SLAG SKIMMER 15 mg Given 01/07/2018 3:57 PM SLAG SKIMMER 15 mg lactated ringers New Bag 01/07/2018 3:34 PM SLAG SKIMMER 100 mL/hr 100 mL/hr 100 mL/hr, intravenous, Continuous, Starting on Sun01/07/18 at 1415, PACU & Post-Op methylPREDNISolone acetate injection Given 01/07/2018 1:55 PM CS T 40 mg Back (DEPO-Medrol) As needed, Starting on Sun01/07/18 at 1355, Intra-Op oxyCODONE IR tablet 10 mg (ROXICODONE) Given 01/08/2018 12:22 AM SLAG SKIMMER 10 mg 10 mg, oral, Every 4 hours PRN, severe pain or score 7-10 of 10, or pain greater than comfort goal if other analgesics fail, Starting on Sun01/07/18 at 1532, Maximum dose of 10 mg in 4 hours. Given 01/07/2018 8:04 PM SLAG SKIMMER 10 mg oxyCODONE IR tablet 5 mg (ROXICODONE) Given 01/08/2018 8:06 AM SLAG SKIMMER 5 mg 5 mg, oral, Every 4 hours PRN, moderate pain or score 4-6 of 10, if other analgesics fail, Starting on Sun01/07/18 at 1532, Maximum dose of 10 mg in 4 hours povidone iodine 0.25% in NaCl 0.9% Given 01/07/2018 1:47 PM SLAG SKIMMER 1,000 mL Back irrigation solution 1,000 mL 1,000 mL, irrigation, Once in surgery, OR use only, Starting on Sun01/07/18 at 0739, For 1 dose, Intra-Op sennosides-docusate sodium 8.6-50 mg per Given 01/07/2018 8:03 P M SLAG SKIMMER 1 tablet tablet 1 tablet (SENOKOT-S) 1 tablet, oral, 2 times daily, First dose on Sun01/07/18 at 2100, for constipation vancomycin powder 1 g Given 01/07/2018 1:55 PM SLAG SKIMMER 1 vial Back 1 g (1 vial), topical, Once in surgery, OR use only, Starting on Sun01/07/18 at 0739, For 1 dose, Intra-Op, Do not reconstitute documented in this encounter Active and Recently Administered Medications Times are shown in SLAG SKIMMER. Scheduled Medication Order 01/06/2018 01/07/2018 01/08/2018 acetaminophen [...] 1230 (Given - Provider: Fransisco Wright APRN, DIVISION TOLL WIRE CHIEF, D.N.P.) 2,000 mg (rounded from 1,450 mg [...] (New Bag - Provider: Fransisco Wright APRN, DIVISION TOLL WIRE CHIEF, D.N.P.) 2 mg/kg/hr ? 58.7 kg Order-specific [...] (New Bag - Provider: Fransisco Wright APRN, DIVISION TOLL WIRE CHIEF, D.N.P.) 600 mg (rounded from 587 mg [...] as of this encounter Care Teams Can Filling Machine Operator Relationship Specialty Start Date End Date Kandi Alberts, TATY, C.N.P. PCP - General 07/27/16 07/10/[address] [address] documented as of this encounter
--- NOTE | 2022-01-11 09:45 | CRLHL7_ITS ---
For Patients: As a result of the Cures Act, medical imaging exams and procedure reports are released immediately into your electronic medical record. You may view this report before your referring provider. If you have questions, please contact your health care provider. INDICATION: female. Bleeding, spotting, and cramping. Prior miscarriage. TECHNIQUE: Transabdominal obstetrical ultrasound. COMPARISON: December 08, 2021. November 28, 2021. FINDINGS: Single living intrauterine in primarily vertex presentation. Anterior placenta. heart rate 144 beats per minute. [place]-rump length of 6.7 cm corresponding to a 13 week 0 day gestation with a sonographic due date of July 19, 2021. Appropriate growth and maturation compared to the 2 prior ultrasounds. There are 2 foci of subchorionic hemorrhage new when compared to December 08, 2021. The larger is near the mid upper left uterine body measuring 1.9 x 0.9 x 3 cm. There is a 2nd focus of hemorrhage near the lower uterine segment above the cervical region measuring 2.0 x 1.5 x 1.9 cm. Incidental note is made of a nonspecific area of hypervascularity deep to the anteriorly located placenta within the myometrium. This is nonspecific but does not appear to reflect active hemorrhage. The ovaries are unremarkable. IMPRESSION: 1. Single living intrauterine in vertex presentation with a crown-rump length corresponding to a 13 week gestation with a sonographic due date of July 19, 2022. 2. heart rate 144 beats per minute. 3. Two foci of subchorionic hemorrhage new compared to December 08, 2021. 4. Nonspecific hypervascular region of the myometrium deep to the anteriorly located placenta. Dictated by David Arteaga MD @ 01/11/2022 11:01:01 AM (Electronically Signed)
--- OUTSIDE RECORDS SUMMARY | 2022-01-11 09:45 | XMS_ITS | Encounter Summary ---
:1985 Author Organization [facility] Address [address] [place] [id number] Care Team Providers Name Role Phone Kandi Alberts APRN C.N.PGordon Primary Care Provider [phone] Reason for Visit Reason Comments Pain Appointment Request (Routine) - Closed Specialty Diagnoses / Procedures Referred By Contact Refer red To Contact Spine Sarthak Anguiano M.D . [address] [place] [address] Referral ID Status Reason Start Date Expiration Date Visits Requ ested Visits Authorized [id number] Closed 07/05/2017 07/05/2018 2 1 Encounter Details Date Type Department Care Team Description 11/28/2017 Comprehensive Visit Department of Robyn Mtz Ba Lumbar Orthopedic Surgery Matthias Higgins M.D. (Primary Dx) in [address] [place] [address] [place], [place] [phone] (Work) [phone] Social History Tobacco Use Types Packs/Day Years [...] How often do you attend jew or jew Never 01/31/2019 services? 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 This HNP???s mass effect has been stable since 2017. 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 The left S1 nerve root is contacted as it a traverses this area. This is not the largest herniation, nor the greatest degree of stenosis that I have seen. However, the patient has trialed a rather exhaustive nonoperative approach to therapy, to include hospice care transitions coordinator, physical therapy, personal training, diet, oral medication [...] of Systems obtained and recorded in the [facility] Medical Record have been reviewed. Spine Surgical Pertinent History: Body Habitus: There is no height or weight on file to calculate BMI. Normal (BMI 18.5 to <25) Bone Health: Unsure H/o Cancer: Denies. Mental Health Disease: Yes, Depression Anticoagulation use: None Past Medical History: Diagnosis Date ??? Alcoholism Personal History ([facility]) 6024-6614 ??? Dependence Alcohol (HCC) ??? 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 All of her questions were answered to her satisfaction and she is comfortable with the plan. She knows to contact the clinic if any questions should arise. I personally spent over half of a total of at least 30 minutes face to face with the patient in counseling and discussion and/or coordination of care as described above. Matthias Mtz MD Contract Associate Manager Spine Surgery Department of Orthopedic Surgery [facility] Assisted by: Ginger Mendoza Kindly CC the following care team colleagues: PCP: Kandi Alberts APRN, C.N.P. documented in this encounter Plan of Treatment Not on filedocumented as of this encounter Results (ABNORMAL) Staphylococcus aureus PCR (11/28/2017 11:28 AM CDT) [facility] gist Method Time Signature Staphylococcus NARES 11/29/2017 [facility] aureus PCR BILATERAL 12:11 PM LABORATORIES - Specimen Source SWAB CDT [facility] Result Positive Not 11/29/2017 [facility] (A) Applicable 12:11 PM LABORATORIES - CDT [facility] Comment: ----ADDITIONAL INFORMATION---- This test was developed and its performa nce characteristics determined by [facility] in a manner consistent with CLIA [...] Organization Address City/State/ZIP Code Phon e Number [facility] - [address] [place], [place] [address] [facility] documented in this encounter Visit Diagnoses Diagnosis Pain Back Lumbar - Primary documented in this encounter Additional Health Concerns Assessment Noted Time PHQ-9 Depression Total Score: 15 09/28/2017 3:51 PM CD T documented as of this encounter Care Teams Fire Control System Installer Relationship Specialty Start Date End Date Kandi Alberts, TATY, C.N.P. PCP - General 07/27/16 07/10/18 [address], [place] [address] documented as of this encounter
--- OUTSIDE RECORDS SUMMARY | 2022-01-11 09:45 | XMS_ITS | Encounter Summary ---
:1985 Author Organization [facility] Address [address] [place] [address] Care Team Providers Name Role Phone Unavailable Primary Care Provider Unavailable Encounter Details Date Type Department Care Team Description 07/22/2015 - Hospital Encounter HX [facility] COLBY WinAnjelica, 07/26/2015 HLT M.B.B.S. 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 - 07/26/2015 11:42 AM CDT Hospital Discharge Instructions [facility] [address] [place] [address] Patient Discharge Instructions Name: WENDI ODONNELL Current Date: 07/26/2015 11:42:14 : 1985 12:00 AM [facility] Number: [id number] Patient Address: [address] [facility] [phone] Patient Primary Care Provider: Name: MICHAEL HANKINS APRN QA SOFTWARE TEST ENGINEER Discharge Diagnosis: [facility] in [place] would like to thank you for allowing us to assist you with yourhealthcare needs. The following includes patient education materials and information regarding your injury/illness. Comment: -[facility] Behavioral Health Unit: [phone]; [facility] CrisisTeam: [phone] WENDI ODONNELL has been given the following list of follow-up instructions, medication list and patient education materials: Follow-up Instructions With: Address: When: MICHAEL HANKINS [address] [place] [address] Business (1) 08/02/2015 2:45 PM Comments: This appointment is a hospital follow up With: Address: When: Genia Vegetable Washing Machine Operator [facility], [address] [place] [address] 07/28/2015 11:00 AM Comments: This appointment is for case management intake. With: Address: When: [facility] [address] [place] [address] Within As Directed Comments: This is for Therapy Sharita will call you on sunday (07/25) to set up an intake appointment With: Address: When: WILLEM Larson, [facility], [address], [place], [place] [phone] 07/29/2015 2:45 PM Comments: This is for [...] Appointments Date Time Location Provider 08/02/2015 14:45 [facility] Hankins CNP Consider Using Patient Online [...] if you dont have one. Go to [email or web address] and click on Create Your Account. Then, follow the directions to complete the online form. Youll be asked for your [facility] number which you can find at the top of this document. CATHERINE Velásquez AMBER LEE , have received the attached patient education materials/instructions and have verbalized understanding: Patient Signature Date Time Care Provider Signature Date Time Source: [facility] POWERCHART Document Id: [id number] Nya Rollins R.N. - 07/26/2015 11:42 AM CDT Hospital Discharge Medication List [address] [place] [address] Discharge Medication List Name: CATHERINEWEDNI LUIS Current Date: 07/26/2015 11:42:13 : 1985 12:00 AM [facility] Number: [id number] Patient Address: [address] [place] [phone] Patient Primary Care Provider: Name: MICHAEL HANKINS APRN, CNP Discharge Diagnosis: [facility] in [place] would like to thank you for allowing [...] By: ANJELICA WIN Signed On:26-JUL-2015 09:37:22 Source: [facility] POWERCHART Document Id: [id number] Anjelica Win M.B.B.S. - 07/26/2015 12:00 AM CDT [id number] DATE OF ADMISSION: July 22, 2015 DATE [...] HOSPITAL COURSE: During this brief hospitalization, the greeting card writer reached out to her family to [...] time of discharge Wendi had allowed the greeting card writer to reach out to her mother [...] of the medications she overdosed on, the greeting card writer had deferred starting an antidepressant, but she was started on sertraline, with the dose being optimized to 50 mg daily, which she tolerated reasonably well and certainly was not endorsing any significant side effects from it by the time of discharge. The greeting card writer offered psychoeducation on the detrimental effects of alcohol onboard with depression and anxiety, and she was fairly receptive of this information. She was encouraged to consider outpatient chemical dependency treatment, and verbalized understanding and agreement with the importance of maintaining sobriety after discharge. She was also open to considering [facility] Prior to discharge she was able [...] up with Michael Hankins CNP, at [address] [address], [phone], on 08/02/2015 at 2:45 p.m. for primary care followup. 2. Follow up with Genia, case monitor, [facility], [address] [place] [address], [address], [place] [address], phone , on 07/28/2015 at 11 a.m. for case management intake. 3. Follow up with [facility] at [address] [place], [place] [address], phone , for psychotherapy. Therapist will call the patient on 07/26/2015, to set up anintake appointment. 4. Follow up with WILLEM Larson, UTILIZATION REVIEWER, [facility], [address] [place] [address], phone , on 07/28/2015 at 2:45 p.m. [...] ANJELICA WIN On: 08/10/2015 12:51 AM Source: [facility] MHSDOLBEYNONRADSYS Document Id: [id number] documented in this encounter Progress Notes Roberth Lundberg, Ph.D. - 07/26/2015 12:00 AM CDT [id number] INPATIENT BEHAVIORAL HEALTH PROGRESS NOTE TIME SPENT: Forty minutes process group, (9:25 a.m. to 10:05 a.m.). PRESENTING PROBLEM: Ms. Odonnell is a 30-year-old female, who was admitted to the Behavioral Health unit the [facility] in [place], following an incident in which she reportedly [...] PhD, LP On: 08/09/2015 05:36 PM Source: [facility] MHSDOLBEYNONRADSYS Document Id: [id number] Anjelica Win M.B.B.S. - 07/25/2015 12:00 AM CDT [id number] PSYCHIATRY INPATIENT PROGRESS NOTE INTERVAL HISTORY: Wendi [...] ANJELICA WIN On: 08/10/2015 12:51 AM Source: [facility] MHSDOLBEYNONRADSYS Document Id: [id number] Anjelica Win M.B.B.S. - 07/24/2015 12:00 AM CDT [id number] PSYCHIATRY INPATIENT PROGRESS NOTE INTERVAL HISTORY: Wendi [...] seems quite anxious about discharge and the greeting card writer explained the 72 hour hold process to her. Discussed that the goal of this hospitalization would be to adjust medications and transitionto outpatient care as soon as possible, but also to do due diligence related to her safety. She requested for the greeting card writer to speak with her father, who [...] be discharged as soon as possible. The greeting card writer explained collateral information from her family, [...] ANJELICA WIN On: 08/05/2015 12:33 PM Source: [facility] MHSDOLBEYNONRADSYS Document Id: [id number] Aileen Lamb L.G.S.W. - 07/23/2015 2:22 PM CDT Phone Communication Phone Communication Referral Treatment Team Caller Information Name: Jose Guadalupe Cormier Case Management Phone:[phone] Description of the Call Pulp Mill Operator called a the request of this pt. to arrange an intake for CM services with Jose Guadalupe Dykes. Time and date are noted on Depart as 07/27 at 11 am. Pulp Mill Operator has also taken steps necessary to assure that this facilitys mandatory reporting requirements have been met. Plan/Follow-up 1. Continue to work with to coordinate patients plan of care. 2. Update treatment team when new information is available. Electronically Signed By: AILEEN LAMB On: 07/23/2015 02:22 PM [facility] Document Id: [id number] Aileen Lamb L.G.S.W. - 07/23/2015 1:25 PM [...] She was transferred from the hospital in [facility] [place] to the behavioral health unit. SYSTEMS REVIEW [...] a solution to all her problems. This greeting card writer educated her on the possibilities of medication and therapy and combination to help her with her depression. PAST MEDICAL / SURGICAL HISTORY MENTAL HEALTH HISTORY Please see PSY-Con for additional details. This patient states having been hospitalized in [place] in 2011. She states as a result of this inpatient hospitalization she was held for 72 hours, and was in contact with the [facility] case monitor as a result. She has since lost [...] younger and one older sister living in [facility]. And that her parents are both living in [facility]. MARITAL STATUS / FAMILY Patient [...] does state having a psychiatric provider in [place]. SPIRITUALITY / SCIENTOLOGIST / CULTURE This patient became careful when asked about her spirituality and nondenominational. She states that she is not atheist, but that she has no strong connection to a hinduism organization. LEGAL Pt reports none. HISTORY Patient [...] them alone. It would appear to this greeting card writer that since she has attempted in [...] Education on the role of the social media project manager on the inpatient behavioral health unit 3. [...] recommendations. Electronically Signed By: AILEEN LAMB [facility] On: 07/23/2015 01:26 PM Source: [employer] Document Id: [id number] documented in this encounter H&P Notes Anjelica Win M.B.B.S. - 07/22/2015 8:01 PM CDT [id number] PSYCHIATRY INPATIENT EVALUATION NOTE. PATIENT IDENTIFICATION/REASON FOR [...] and was apparently in the hospital in [place] at that time. This would be her [...] 2600 [place], [place] [address] [place], prednisone up to 1600 mg and [...] medicat ions from her [place] that [facility]. The events leading to hospitalization [...] hydrocodone, 26[place], [place] [address] mg of methocarbamol, 1600 mg of prednisone [...] also prescribed for her and therefore the greeting card writer is not immediately restarting antidepressants for her. As noted, her medications need to be confirmed from her pharmacy. She claims that she was feeling hopeless, disconnected did not care if her overdose would bottom turner to be lethal and does admit that [...] of it. She did not want the greeting card writer contacting her mother but did allow the greeting card writer to contact her father Thiago providing verbal consent and was willing to sign a written consent. She provided the Dad's name is Thiago and phone #[phone]. When the greeting card writer tried calling this number, the greeting card writer is informed presumably by her mother that her father was acurrently at work and cannot be contacted. However, the greeting card writer did leave a message for her [...] she was admitted in the hospital in [place]. She states that her back speciali st is Dr. Soto in [place]. She also sees a psychiatric nurse practitioner, Marianna Escamilla through [facility] in [place]. Dr. Hankins records from July 14, 2015, [...] trying to gether into treatment and the greeting card writer suspects that her alcohol use may [...] 107. Diastolic blood pressure 70. MEDICATIONS: The greeting card writer had started cephalexin for her but given that she was only supposed to take it for 10 days and was prescribed the on the first and may have also overdosed on this medication. The greeting card writer is discontinuing it until further reconciliation of her medications can be undertaken from her pharmacy and until Medicine has had a chance to evaluate her. She was taking Prozac and apparently having been switched to it recently from Effexor but was not finding it effective from what the greeting card writer has gathered. PAST PSYCHIATRIC HISTORY She reports depressed symptoms starting in her childhood in fact reports a strong family history of depression including her mother, grandmother and a sister, however, she did not really start seeking any psychiatric help until the age of 18. There has been at least one past psychiatric hospitalization in at a hospital in [place] but does not recall the name. She states that this was her first and only suicide attempt up until this presentation. As noted above, she is seeing Marianna Escamilla through [facility] in the [place]. She was on Prozac and lorazepam by [...] intoxications, blackouts, detox, or DWI's to the greeting card writer. She does not attending AA meetings [...] that she was born and raised in [place]. 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 She did not complete her college education. [...] 2 days prior to presentation to the [place] Emergency Department. PAST MEDICAL/SURGICAL HISTORY History of [...] was cleared by the emergency department at [place] for admission. The greeting card writer will still obtain an EKG given [...] been compliant with it recently in the greeting card writer's u nderstanding. Will also confirm medications from her pharmacy that is a [facility] in [place]. Will defers starting Prozac or another antidepressant [...] ANJELICA WIN On: 08/05/2015 10:48 AM Source: [facility] MHSDOLBEYNONRADSYS Document Id: [id number] documented in this encounter Consult Notes Amadou Ann M.D. - 07/23/2015 12:00 AM CDT [id number] PRIMARY CARE PHYSICIAN: Michael Hankins CNP CONSULTATION [...] denied intoxications, blackouts, detoxification detailed to the greeting card writer. She is not on any AA [...] minutes. Amadou Ann M.D./pos cc: Corie RahmanB.S. [facility] in [address] [address] Electronically Signed By: AMADOU ANN MD On: 07/24/2015 11:22 AM Source: [facility] MHSDOLBEYNONRADSYS Document Id: [id number] documented in this encounter Nursing Notes Nya Rollins R.N. - 07/26/2015 10:31 AM CDT Focus: AM Status Pt has been pleasant and polite during interactions this morning. Pt was noted to be up and readinga book upon greeting card writer introducing self this morning. Pt cooperated [...] pt requested her prescriptions be faxed to [facility] in [place]; this was completed. Pulp Mill Operator and pt reviewed discharge paperwork, medications, prescriptions, [...] ROLLINS RN On: 07/26/2015 10:36 AM Source: [facility] POWERCHART Document Id: [id number] Alessandra Masterson R.N. - 07/25/2015 11:32 PM [...] MASTERSON RN On: 07/26/2015 02:35 AM Source: [employer] Document Id: [id number] Alessandra Masterson R.N. - 07/25/2015 8:49 PM CDT PRN Response PRN Response Entered On: 07/25/2015 20:49 CDT Performed On: 07/25/2015 20:49 CDT by ALESSANDRA MASTERSON RN Intervention Information: hydrocodone-acetaminophen Performed by ALESSANDRA MASTERSON RN on 07/25/2015 20:02:08 CDT HYDROcodone-acetaminophen,1tab(s) PO,Pain PRN Medication Effectiveness Evaluation PRN Medication Effective : Yes Post Medication Pain Assessment : 5 ALESSANDRA MASTERSON RN - 07/25/2015 20:49 CDT Source: [employer] Document Id: [id number] CDT!4 Jahaira Frost R.N. - 07/25/2015 3:16 PM CDT AM Status D/A: Patient met with greeting card writer for 1:1 this shift. She was [...] FROST RN On: 07/25/2015 06:22 PM Source: [facility] POWERCHART Document Id: [id number] Jahaira Frost R.N. - 07/25/2015 10:30 AM [...] FROST RN - 07/25/2015 10:30 CDT Source: [employer] Document Id: [id number] CDT!3 Maria R Peters R.N. - 07/24/2015 [...] stretches in the exercise group with the RE EXAMINER. Pt said thatshe was going to go [...] PETERS RN On: 07/25/2015 12:33 AM Source: [employer] Document Id: [id number] Maria R Peters R.N. - 07/24/2015 5:04 PM CDT PRN Response PRN Response Entered On: 07/25/2015 0:13 CDT Performed On: 07/24/2015 17:04 CDT by MARIA R PETERS RN Intervention Information: hydrocodone-acetaminophen Performed by MARIA R PETERS RN on 07/24/2015 16:04:24 CDT HYDROcodone-acetaminophen,1tab(s) PO,Pain PRN Medication Effectiveness Evaluation PRN Medication Effective : Yes MARIA R PETERS RN - 07/25/2015 0:12 CDT Source: [employer] Document Id: [id number] CDT!3 Nilda Arteaga R.N. - 07/24/2015 2:05 [...] ARTEAGA RN - 07/24/2015 14:05 CDT Source: [employer] Document Id: [id number] CDT!4 Nilda Arteaga R.N. - 07/24/2015 9:45 [...] ARTEAGA RN On: 07/24/2015 02:38 PM Source: [facility] POWERCHART Document Id: [id number] Isiah Clement R.N. - 07/23/2015 8:10 PM CDT PM Status D: Wendi has been withdrawn to her room since greeting card writer arrived at 3:00 pm. Patient reports [...] hydrocodone- acetaminophen 5-325 mg q6H PRN. This greeting card writer approached Wendiin her room to offer medication, however patient appeared to be sleeping and did not respond to abbey de leon prompts. A: The [facility] in [place] was contacted and med list by history was confirmed and documented in patient chart. Emotional support and reassurance provided. Plan of care reviewed. R: Patient was pleasant and cooperative with 1:1. Continue with current plan of care. Electronically Signed By: ISIAH CLEMENT RN On: 07/23/2015 08:13 PM Source: [employer] Document Id: [id number] Rajendra Servin R.N. - 07/23/2015 3:10 PM [...] depressed, though patient appears visually depressed to greeting card writer. Patient denied any physical complaints. Patient [...] RAJENDRA SERVIN On: 07/23/2015 03:18 PM Source: [employer] Document Id: [id number] Price Dee R.N. - 07/22/2015 7:17 PM CDT Focus: Admission Focus: Admission D: Patient is a 30-year-old female from [facility] ED. She was presented to the [...] attempt in which she was admitted to [facility] in [place] for 3 days. Patient states that she is supposed to be starting to work tomorrow. Patient is seeing Marianna Escamilla at [facility]. She sees her once a month. [place] Paitent states that she was taking Prozac [...] She signed ALFREDO for Marianna Escamilla of [facility] (need to be faxed if needed). Patient didn't have lists of medicatios with her. Nurse called the [facility]- no records of medications found. Dr. Win is aware and ordered to hold off Cephalexin. Patient needs a tour on unit. Electronically Signed By: PRICE DEE RN On: 07/22/2015 11:19 PM Modified by and Electronically Signed by: PRICE DEE RN On: 07/22/2015 11:19 PM Source: [facility] POWERCHART Document Id: [id number] documented in this encounter Miscellaneous Notes Miscellaneous [...] ROLLINS RN - 07/26/2015 13:39 CDT Source: [employer] Document Id: [id number] CDT!10 Miscellaneous - Conversion, Historical Provider Ser - 07/26/2015 1:15 PM CDT Coding Summary-Paper Based CODING DATE: 08/06/2015 FINAL [facility] STATUS: * Discharged to Home or Self [...] Revised Date Saved: 08/05/2015 07:46 am Source: [facility] Document Id: [id number] Ori - Grayson Mejia - 07/26/2015 10:30 AM CDT Hospital Patient Education The following Patient Education Materials have been given to the patient: Patient Education Materials: Source: [facility] OpenDrive Document Id: [id number] Ori - Nya Rollins R.N. - 07/26/2015 [...] ROLLINS RN - 07/26/2015 10:25 CDT Source: [facility] Document Id: [id number] CDT!90 Miscellaneous - Nya Rollins R.N. - [...] Other: 15 minute safety checks; camera monitoring NAY ROLLINS RN - 07/26/2015 10:24 CDT ADLs Adult Nutrition Lunch : 100 % BOXOCHILT WEISSH - 07/26/2015 13:00 CDT Diet Type : Diet -- 07/22/15 20:57:00 CDT, General (Regular) Feeding Assistance : Independent Breakfast : 0 % NYA ROLLINS RN - 07/26/2015 10:24 CDT Source: [facility] [employer] Document Id: [id number] CDT!15 Ori - Nya Rollins R.N. - 07/26/2015 9:54 AM CDT Team Meeting Notes Team Meeting Notes Entered On: 07/26/2015 9:55 CDT Performed On: 07/26/2015 9:54 CDT by NYA ROLLINS RN Team Notes Team Meeting Grid Discipline : Behavioral Health Nurse, Other: Psychiatric provider, psychologist, ED Access Registrar, Popeye, Discharge planning nurse Topics : Plan of care, Other: Discharge planning NYA ROLLINS RN - 07/26/2015 9:54 CDT Source: [facility] Open[employer] Document Id: [id number] CDT!6 Ori - Alessandra Masterson R.N. - [...] MASTERSON RN - 07/26/2015 1:48 CDT Source: [employer] Document Id: [id number] CDT!61 Miscellaneous - Alessandra Masterson RGordonN. - [...] MASTERSON RN - 07/26/2015 1:47 CDT Source: [employer] Document Id: [id number] CDT!9 Miscellfelicita - Jahaira Frost RGordonNGordon - [...] FROST RN - 07/25/2015 17:59 CDT Source: [employer] Document Id: [id number] CDT!96 Miscellaneous - Jahaira Frost R.N. - [...] TIFFANIE WIN - 07/25/2015 16:31 CDT Source: [facility] POWERCHART Document Id: [id number] CDT!21 Miscellaneous - Jahaira Frost R.N. - [...] FROST RN - 07/25/2015 9:47 CDT Source: [facility] [employer] PartnersCHART Document Id: [id number] CDT!5 Miscellaneous - Jahaira Frost R.N. - [...] FROST RN - 07/25/2015 9:04 CDT Source: [employer] Document Id: [id number] CDT!108 Miscellaneous - Jorge Escobar V - [...] Wheels locked, Other: q15 minute safety checks JAAHIRA FROST RN - 07/25/2015 9:03 CDT ADLs Adult Nutrition Lunch : 100 % JORGE ESCOBAR V - 07/25/2015 12:31 CDT Diet Type : Diet -- 07/22/15 20:57:00 CDT, General (Regular) Feeding Assistance : Independent JAHAIRA FROST RN - 07/25/2015 9:03 CDT Source: [employer] Document Id: [id number] CDT!21 Emilee Bacon R.N. - 07/25/2015 2:00 [...] OLIVER RN - 07/25/2015 2:00 CDT Source: [employer] Document Id: [id number] CDT!8 Emilee Bacon R.N. - 07/25/2015 1:57 [...] OLIVER RN - 07/25/2015 1:58 CDT Source: [employer] Document Id: [id number] CDT!52 Ori - Tiffanie Win R.N. - [...] TIFFANIE WIN - 07/24/2015 18:05 CDT Source: [employer] Document Id: [id number] CDT!8 Maria R Parks R.N. - 07/24/2015 [...] R PETERS RN - 07/24/2015 16:54 CDT [place] Coma Eye Opening Response [place] : Spontaneously Best Verbal Response Laura : Oriented Best Motor Response [place] : Obeys simple commands Laura Coma Score [...] PETERS RN - 07/24/2015 16:54 CDT Source: [facility] POWERCHART Document Id: [id number] CDT!97 Miscellaneous - Maria R Peters R.N. [...] PETERS RN - 07/24/2015 16:24 CDT Source: [employer] Document Id: [id number] CDT!3 Miscellaneous - Maria R Peters R.N. [...] PETERS RN - 07/24/2015 16:22 CDT Source: [employer] Document Id: [id number] CDT!17 Miscellaneous - Nilda Arteaga R.N. - 07/24/2015 2:05 PM CDT Adult Activities of Daily Living Adult Activities of Daily Living Entered On: 07/24/2015 14:07 CDT Performed On: 07/24/2015 14:05 CDT by NILDA ARTEAGA RN ADLs I Activity Status ADL : Ambulating in la, Ambulating in room, Up ad agrenis Activity Assistance : Independent Assistive Device : [...] ARTEAGA RN - 07/24/2015 14:05 CDT Source: [employer] Document Id: [id number] CDT!20 Miscellaneous - Nilda Arteaga R.N. - [...] frequently Mobility Ulices : No limitations Nutrition Ulcies : Probably inadequate Friction and Shear Ulices [...] ARTEAGA RN - 07/24/2015 14:07 CDT Source: [employer] Document Id: [id number] CDT!5 Emilee Bacon R.N. - 07/24/2015 12:41 [...] OLIVER RN - 07/24/2015 0:41 CDT Source: [employer] Document Id: [id number] CDT!8 Emilee Bacon R.N. - 07/24/2015 12:38 [...] OLIVER RN - 07/24/2015 0:38 CDT Source: [facility] POWERCHART Document Id: [id number] CDT!49 Miscellaneous - Isiah Clement R.N. - [...] 18:29 CDT Laura Coma Eye Opening Response [place] : Spontaneously Best Verbal Response [place] : Oriented Best Motor Response Laura : [...] CLEMENT RN - 07/23/2015 18:29 CDT [facility] Document Id: [id number] CDT!98 Miscellaneous - Maria R Peters R.N. [...] TIFFANIE WIN - 07/23/2015 17:40 CDT Source: [facility] OpenDrive Document Id: [id number] CDT!12 Ori - Aileen Lamb L.G.S.W. - 07/23/2015 2:25 PM CDT Hospital Patient Education The following Patient Education Materials have been given to the patient: Patient Education Materials: [facility] Document Id: [id number] Ori - Aileen Lamb L.G.S.W. - 07/23/2015 2:24 PM CDT Hospital Patient Education The following Patient Education Materials have been given to the patient: Patient Education Materials: [facility] Document Id: [id number] Ori - Rajendra Servin R.N. - 07/23/2015 2:04 PM CDT Adult Ongoing Assessment Adult Ongoing Assessment Entered On: 07/23/2015 14:08 CDT Performed On: 07/23/2015 14:04 CDT by RAJENDRA ESRVIN Respiratory Respiratory Patient Stated Symptoms : None [...] RAJENDRA SERVIN - 07/23/2015 14:17 CDT Source: [employer] Document Id: [id number] CDT!85 Ori - Grayson Mejia - 07/23/2015 2:01 PM CDT [facility] Patient Education The following Patient Education Materials have been given to the patient: Patient Education Materials: Source: [employer] Document Id: [id number] Ori - Aileen Lamb L.G.S.W. - 07/23/2015 1:36 PM CDT [facility] Patient Education The following Patient Education Materials have been given to the patient: Patient Education Materials: Source: [employer] Document Id: [id number] Oir - Rajendra Servin, RGordonNGordon - 07/23/2015 12:22 PM CDT Team Meeting Notes Team Meeting Notes Entered On: 07/23/2015 12:22 CDT Performed On: 07/23/2015 12:22 CDT by RAJENDRA SERVIN Team Notes Team Meeting Grid Discipline : Behavioral Health Nurse, Physician, Access Registrar, Other: Psychologist Topics : Plan of care MALATHI RAJENDRA Becerril - 07/23/2015 12:22 CDT Source: [facility] OpenDrive Document Id: [id number] CDT!6 Ori - Rajendra Servin RGordonNGordon - [...] ARTEAGA RN - 07/23/2015 9:42 CDT [facility] Document Id: [id number] CDT!15 Ori - Alessandra Masterson RGordonNGordon - [...] MASTERSON RN - 07/23/2015 1:07 CDT [facility] [employer] Document Id: [id number] CDT!8 Miscellaneous - Alessandra Masterson R.N. - [...] MASTERSON RN - 07/23/2015 1:07 CDT [facility] Document Id: [id number] CDT!55 Miscellaneous - Price Dee R.N. - 07/22/2015 9:28 PM CDT Adult Activities of Daily Living Adult Activities of Daily Living Entered On: 07/22/2015 21:28 CDT Performed On: 07/22/2015 21:28 CDT by PRCIE DEE RN ADLs I Activity Status ADL [...] DEE RN - 07/22/2015 21:28 CDT Source: [employer] Document Id: [id number] CDT!11 Miscellaneous - Price Dee RGordonNGordon - [...] DEE RN - 07/22/2015 21:21 CDT Source: [facility] [employer] Document Id: [id number] CDT!77 Miscellaneous - Tiffanie Win R.N. - [...] TIFFANIE WIN - 07/22/2015 20:49 CDT Source: [facility] [employer] Document Id: [id number] CDT!23 documented in this encounter Plan of [...] / Volume Laterality 07/23/2015 12:41 PM CDT [facility] - 07/23/2015 12:41 PM CDT [...] Address City/State/ZIP Code Phon e Number [facility] [address] [place] [address] documented in this encounter Visit Diagnoses Not on filedocumented in this encounter Additional Health Concerns Assessment Noted Time PHQ-9 Depression Total Score: 19 01/20/2015 2:44 PM CS T documented as of this encounter
--- OUTSIDE RECORDS SUMMARY | 2022-01-11 09:45 | XMS_ITS | Encounter Summary ---
:1985 Author Organization [facility] Address [address] [place] [address] Care Team Providers Name Role Phone Kandi Alberts APRN CGordonNGordonPGordon Primary Care Provider [phone] Encounter Details Date Type Department Care Team Description 07/06/2017 Orders Only Department of Benny, Radiculopathy Neurologic Surgery in Marisa Chan P.A.-C. Lumbosacral (Primary [place], [place] [address] [facility] Dx) [address] [place] [address] [phone] Social History Tobacco Use Types Packs/Day Years [...] How often do you attend zoroastrian or zoroastrian Never 01/31/2019 services? 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 Marisa Zapata P.A.-C. IMG DIAGNOSTIC IMAGING MD OCEDURES documented in this encounter Visit Diagnoses Diagnosis Radiculopathy Lumbosacral - Primary Radiculopathy Lumbosacral documented in this encounter Additional Health Concerns Assessment Noted Time PHQ-9 Depression Total Score: 9 06/29/2017 11:57 AM CD T documented as of this encounter Care Teams Cigar Making Machine Operator Relationship Specialty Start Date End Date Kandi Alberts, TATY, C.N.P. PCP - General 07/27/16 07/10/18 [address] [place] [phone] documented as of this encounter
--- OUTSIDE RECORDS SUMMARY | 2022-01-11 09:45 | XMS_ITS | Encounter Summary ---
:[address] [facility] Address [address] [place] [address] Care Team Providers Name Role Phone Kandi Alberts APRN C.NGordonPGordon Primary Care Provider [phone] Reason for Visit Reason Onset Date Comments Results 07/02/2017 Encounter Details Date Type Department Care Team Description 07/02/2017 Clinical Communication Department of [facility] Trudi Asya [facility] Medicine, [place], Clinic, in [place] [address] [place] [phone] Social History Tobacco Use Types Packs/Day Years [...] How often do you attend shinto or alevism Never 01/31/2019 services? Do you [...] to pay for the very basics like Audasterw hat hard 11/27/2019 food, housing, medical care, [...] Date Recorded Female 01/11/2018 2:20 PM MEDICAL ENGINEER documented as of this encounter Miscellaneous Notes [...] needs to be tested and treated. [facility] will be contacting her just to [...] to give Dr. Hedrick an update,call her [phone]. documented in this encounter Plan of Treatment Not on filedocumented as of this encounter Visit Diagnoses Not on filedocumented in this encounter Additional Health Concerns Assessment Noted Time PHQ-9 Depression Total Score: 9 06/29/2017 11:57 AM CD T documented as of this encounter Care Teams Bakery Products Checker Relationship Specialty Start Date End Date Kandi Alberts, TATY, C.N.P. PCP - General 07/27/16 07/10/[address] [address] documented as of this encounter
--- OUTSIDE RECORDS SUMMARY | 2022-01-11 09:45 | XMS_ITS | Encounter Summary ---
:1985 Author Organization [facility] Address [address] [place] [address] Care Team Providers Name Role Phone Kandi Alberts APRN C.N.P. Primary Care Provider [phone] Reason for Visit Reason Onset Date Comments Move appt on 11-28 to afternoon? 11/21/2017 Encounter Details Date Type Department Care Team Description 11/21/2017 Clinical Communication Department of Zeina Mtzt on 11-28 Orthopedic Surgery Matthias Higgins M.D. to afternoon? in [place], [address] [place] [address] [address] [facility] [address] [place], [place] [phone] (Work) [phone] Social History Tobacco Use Types Packs/Day Years [...] How often do you attend congregational or episcopal Never 01/31/2019 services? Do you [...] to pay for the very basics like [employer] hat hard 11/27/2019 food, housing, medical care, [...] at Date Recorded Female 01/11/2018 2:20 PM TATTOO IDENTIFIER documented as of this encounter Miscellaneous Notes [...] documented as of this encounter Care Teams Disability Advocate Relationship Specialty Start Date End Date Kandi Alberts, TATY, C.N.P. PCP - General 07/27/16 07/10/18 [address] [place] [address] documented as of this encounter
--- OUTSIDE RECORDS SUMMARY | 2022-01-11 09:45 | XMS_ITS | Encounter Summary ---
:1985 Author Organization [facility] Address [address] [place] [address] Care Team Providers Name Role Phone Kandi Alberts APRN, C.N.P. Primary Care Provider [phone] Encounter Details Date Type Department Care Team Description 06/27/2017 Nurse Triage Department of [facility] Pushpa Bragg, Medicine, [facility], R.N. in [place], [place] [address] [place] [address] Social History Tobacco Use Types Packs/Day Years [...] How often do you attend zoroastrian or baptism Never 01/31/2019 services? 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/2018 2:20 PM DARKLIGHT INSPECTOR documented as of this encounter Plan of Treatment Not on filedocumented as of this encounter Visit Diagnoses Not on filedocumented in this encounter Additional Health Concerns Assessment Noted Time PHQ-9 Depression Total Score: 19 01/20/2015 2:44 PM CS T documented as of this encounter Care Teams Metal Building Assembler Relationship Specialty Start Date End Date Kandi Alberts, TATY, C.N.P. PCP - General 07/27/16 07/10/18 [address], [place] [phone] documented as of this encounter
--- OUTSIDE RECORDS SUMMARY | 2022-01-11 09:45 | XMS_ITS | Encounter Summary ---
:1985 Author Organization [facility] Address [address] [place] [address] Care Team Providers Name Role Phone Kandi Alberts APRN, C.N.P. Primary Care Provider [phone] Reason for Visit Reason Comments Abdominal Cramping cramping in lower right abdo min along with breast discomfort x 1 month Appointment Request (Routine) - Closed Specialty Diagnoses / Procedures Referred By Contact Refer red To Contact Family Medicine Referral ID Status Reason Start Date Expiration Date Visits Requ ested Visits Authorized [id number] Closed 09/25/2017 09/25/2018 1 Encounter Details Date Type Department Care Team Description 09/28/2017 Office Visit Department of Family Huang Pel naima And Perineal Medicine, Marisel Mcgregor, Pain (Pr imary Dx) Clinic, in [place] [address] [place] [phone] Social History Tobacco Use Types Packs/Day Years [...] often do you attend oriental orthodox or alevism Never 01/31/2019 services? 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 She has also had some [...] Gardnerella test and [facility] documented in this encounter Plan of Treatment [...] PM CDT) P athologist Signature Negative 09/28/2017 [facility] Test, POCT, U 4:51 PM CDT [facility] Specimen Anatomical Collection Method Collection Time Receive d Time (Source) Location / / Volume Laterality Urine (Urine, 09/28/2017 4:43 PM 09/29/19 18 4:43 Clean Catch) CDT PM CDT Marisel Ferrer M.D. LAB POCT ORDERABLES - DEVICE Performing Organization Address City/[facility]/ZIP Code Phon e Number [facility]- [address] [place] [address] [place] [address] [place] [facility]- [address] [place] [address] [place], [place] [address] [place] [facility] Chlamydia / gonorrhoeae Amplified RNA (09/28/2017 4:30 PM CDT) PathConnecture gist Method Time Signature Source VAGINA 10/01/2017 [facility] 1:38 PM CDT [facility] Chlamydia Negative Negative 10/01/2017 [facility] trachomatis 1:[address] [facility] Comment: ----ADDITIONAL INFORMATION---- This report is intended for use in clini kehinde monitoring and management of patients. It is not in tended for use in medical-legal applications. Source vagina 10/01/2017 1:38 PM CDT [facility] Neisseria gonorrhoeae Negative Negative 10/01/2017 1:3 8 PM CDT [facility] amplified [facility] Comment: ----ADDITIONAL INFORMATION---- This [...] - GEN ERAL ORDERABLES Performing Organization Address City/[facility]/ZIP Code Phon e Number [facility] [address] [place] [address] LAB (ABNORMAL) Vaginitis Panel - [facility] (09/28/2017 4:30 PM CDT) Unbound Concepts Method Time Signature Nichol Negative Negative 09/28/2017 [facility] species, DNA 5:36 PM CDT [facility] [place] [facility] Gardnerella Positive (A) Negative 09/28/2017 [facility] vaginalis, DNA 5:36 PM CDT [facility] [place] [facility] Trichomonas Negative Negative 09/28/2017 [facility] vaginalis, DNA 5:36 PM CDT [facility] [place] [facility] Specimen Anatomical Collection Method Collection Time Receive d Time (Source) Location / / Volume Laterality Swab (Vagina) 09/28/2017 4:30 PM 09/29/19 18 4:46 CDT PM CDT Marisel Ferrer M.D. LAB MICROBIOLOGY - GEN ERAL ORDERABLES Performing Organization Address City/State/ZIP Code Phon e Number [facility] [address] [place] [address] [place] [address] [place] [address] [place] [id number] documented in this encounter Visit Diagnoses Diagnosis Pelvic And Perineal Pain - Primary documented in this encounter Additional Health Concerns Assessment Noted Time PHQ-9 Depression Total Score: 15 09/28/2017 3:51 PM CD T documented as of this encounter Care Teams Clinical Application Specialist Relationship Specialty Start Date End Date Kandi Alberts, TATY, C.N.P. PCP - General 07/27/16 07/10/18 [address] [place] [phone] documented as of this encounter
--- OUTSIDE RECORDS SUMMARY | 2022-01-11 09:45 | XMS_ITS | Encounter Summary ---
:1985 Author Organization [facility] Address [address] [place] [address] Care Team Providers Name Role Phone Kandi Alberts APRN, C.NGordonPGordon Primary Care Provider [phone] Reason for Referral Outpatient (Routine) - Closed Specialty Diagnoses / Procedures Referred By Contact Refer red To Contact Diagnoses Radiculopathy Lumbar Weakness Leg Left [facility] P.A.-C. [address] [place], [place] [address] Referral ID Status Reason Start Date Expiration Date Visits Requ ested Visits Authorized [id number] Closed 11/21/2017 11/21/2018 1 1 MRI/CAT/PET Scan (Routine) - Closed Specialty Diagnoses / Procedures Referred By Contact Refer red To Contact Radiology Diagnoses Radiculopathy Lumbar [facility] Procedures MR Lumbar Spine without IV Contrast [place] MRI LUMB SPINE WO CNTRST HC MRI LUMB SPINE WO CNTRST P.A.-C. [address] [place], [place] [phone] Referral ID Status Reason Start Date Expiration Date Visits Requ ested Visits Authorized [id number] Closed 11/21/2017 11/21/2018 1 1 Reason for Visit Appointment Request (Routine) - Closed Specialty Diagnoses / Procedures Referred By Contact Refer red To Contact Spine Sarthak Anguiano M.D . [address] [place] [address] Referral ID Status Reason Start Date Expiration Date Visits Requ ested Visits Authorized [id number] Closed 07/05/2017 07/05/2018 2 1 Encounter Details Date Type Department Care Team Description 11/21/2017 Comprehensive Visit Department of Benny Radicul opathy Lumbar (Primary Dx); Neurologic Surgery Marisa Chan, [facility] [address] [place] [phone] Social History Tobacco Use Types Packs/Day Years [...] How often do you attend orthodox or yazdanism Never 01/31/2019 services? 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 [facility], [address] [place] [address] Chief Complaint: back and left leg pain History of Present Illness: Ms. Odonnell is a pleasant 32 y.o. female from [place], [place] who is seen in consultation regarding [...] warm baths. 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 She has worked extensively with physical therapy and has a personal development mentor. She has also with a chiropractor. She [...] ? Final Report Study Number: 1 EMG Trench Digging Machine Operator: Benson Drew . 127 o r [phone] Referred by: MARISA AMATO (127 or ( [phone]) Referred for: low back and left leg [...] the interpretation. Liliam Jeffery/Mana Drew (127 or [phone])/ [facility] NERVE CONDUCTIONS ?Temperat ure: 30.2 [...] Final Repor t Study Number: 1 EMG Trench Digging Machine Operator: Benson Drew . 127 o r [phone] Referred by: MARISA AMATO (127 or ( [phone]) Referred for: low back and left leg [...] the interpretation. Liliam Jeffery/Mana Drew (127 or [phone])/ [facility] NERVE CONDUCTIONS Temperature: 30.2 ? [...] This interpretation has been electron ically signed: Besnon Drew MD at 11/28/2017 3:26:41 PM CDT Marisa Zapata P.A.-C. NEUROLOGY ORDERABLES Performing Organization Address City/State/ZIP Code Phon e Number [facility] MR Lumbar Spine without IV Contrast (11/22/2017 2:05 PM CDT) Anatomical Region Laterality Modality Lumbar Spine, Neuroradiology [facility]ST [facility], Neuroradiology N/A Magnetic Resonance [facility], Neuroradiology [facility] Specimen (Source) Anatomical Collection Method Collection [...] spine 03/01/2016. FINDINGS: Allowing for differences in plating technician nique and patient position, no significant [...] spine 03/01/2016. FINDINGS: Allowing for differences in plating technician nique and patient position, no significant [...] documented as of this encounter Care Teams Electrical Products Sales Engineer Relationship Specialty Start Date End Date Kandi Alberts, TATY, C.N.P. PCP - General 07/27/16 07/10/[address] [phone] documented as of this encounter
--- OUTSIDE RECORDS SUMMARY | 2022-01-11 09:45 | XMS_ITS | Encounter Summary ---
:1985 Author Organization [facility] Address [address] [place] [address] Care Team Providers Name Role Phone Kandi Alberts APRN C.N.P. Primary Care Provider Reason for Visit Reason Onset Date Comments Pre-visit Testing Orders 07/05/2017 Encounter Details Date Type Department Care Team Description 07/05/2017 Clinical Department of Prescheduling, Pre-visit Te sting Communication Spine in Provider Orders [place], [place] [address] [place] [address] Social History Tobacco Use Types Packs/Day Years [...] How often do you attend hoahaoism or islam Never 01/31/2019 services? 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/2018 2:20 PM ERP TECHNICAL LEAD documented as of this encounter Miscellaneous Notes [...] documented as of this encounter Care Teams Serging Machine Operator Relationship Specialty Start Date End Date Kandi Alberts, TATY, C.N.P. PCP - General 07/27/16 07/10/18 [address] [place] [phone] documented as of this encounter
--- OUTSIDE RECORDS SUMMARY | 2022-01-11 09:45 | XMS_ITS | Encounter Summary ---
:1985 Author Organization [facility] Address [address] [place] [address] Care Team Providers Name Role Phone Kandi Alberts APRN C.NGordonPGordon Primary Care Provider [phone] Reason for Visit Reason Comments Abdominal Pain with nausea x 2 weeks Back Pain chronic getting worse Encounter Details Date Type Department Care Team Description 06/29/2017 Office Visit Department of Family Huang Pap Smear Examination (Primary Dx); Medicine, Marisel Mcgregor, Pain Pel [facility], in [place] [address] [place] [address] Social History Tobacco Use Types Packs/Day [...] How often do you attend adventism or uatsdin Never 01/31/2019 services? Do you [...] to pay for the very basics like [employer] hat hard 11/27/2019 food, housing, medical [...] at Date Recorded Female 01/11/2018 2:20 PM TURKEY BONER documented as of this encounter Last Filed [...] behalf by Jahaira Delacruz, a trained medical policy specialist. The creation of this record is [...] 1:16 PM CDT) athologist Signature Negative 06/29/2017 [facility] Test, POCT, U 1:24 PM CDT [facility] Specimen Anatomical Collection Method Collection Time Receive d Time (Source) Location / / Volume Laterality Urine (Urine, 06/29/2017 1:16 PM 06/30/19 18 1:16 Clean Catch) CDT PM CDT Marisel Ferrer M.D. LAB POCT ORDERABLES - DEVICE Performing Organization Address City/State/RUST Code Phon e Number [facility]- [address] [place] [address] [facility]- [address] [place] [address] [place] [facility] Urinalysis with Microscopic if Indicated (06/29/2017 1:16 PM CDT) athologist Signature Source Midstream 06/29/2017 [facility] 1:20 PM CDT [facility] Clarity Clear Clear 06/29/2017 [facility] 1:20 PM CDT [facility] Color Yellow 06/29/2017 [facility] 1:20 PM CDT [facility] Comment: ----REFERENCE VALUE---- Colorless Yellow Wendi Blood Negative Negative 06/29/2017 1:[address] [facility] B Nitrite Negative Negative 06/29/2017 1:[address] [facility] [place] [facility] Leukocyte Esterase Negative Negative 06/29/2017 1:20 PM CD T [facility] Protein Negative mg/dL 06/29/2017 1:20 PM CDT [facility] [place] [facility] Comment: ----REFERENCE VALUE---- Negative Trace Glucose Negative Negative mg/dL 06/29/2017 1:20 PM [facility] CDT SYSTEM- [place] [facility] Ketones, QI(U) Negative Negative mg/dL 06/29/2017 1:[address] [facility] [place] [facility] Bilirubin Negative Negative 06/29/2017 1:20 PM [facility] pH 6.5 5.0 - 8.0 06/29/2017 1:20 PM [facility] Specific [place] 1.015 1.001 - 1.035 06/29/2017 1:20 PM [facility] Urobilinogen 0.2 0.2 - 1.0 mg/dL 06/29/2017 1:20 PM [facility] [place] [facility] Specimen Anatomical Collection Method Collection Time Receive d Time (Source) Location / / Volume Laterality Urine (Urine, 06/29/2017 1:16 PM 06/30/19 1:16 Clean Catch) CDT PM CDT Marisel Ferrer M.D. LAB URINE ORDERABLES Performing Organization Address City/[facility]/ZIP Code Phon e Number [facility]- [address] [place] [id number] [place] [facility]- [address] [place] [address] 21[facility] Bacterial Culture, Aerobic + Susc, Urine (06/29/2017 1:16 PM CDT) [facility] gist Method Time Signature Bacterial No growth 06/30/2017 [facility] Culture, after 1 day 4:22 PM CDT [facility] Aerobic, Urine of SYSTEM- [facility] LAB Specimen Anatomical Collection Method Collection Time Receive d Time (Source) Location / / Volume Laterality Urine (Urine) 06/29/2017 1:16 PM 06/30/19 CDT 11:56 PM CDT Comment: Specimen Source Site: Urine Marisel Ferrer M.D. LAB MICROBIOLOGY - GEN ERAL ORDERABLES Performing Organization Address City/State/ZIP Code Phon e Number [facility] [address] [place] [address] LAB (ABNORMAL) Vaginitis Panel - [facility] (06/29/2017 1:15 PM CDT) [employer] Method Time Signature Nichol Negative Negative 06/29/2017 [facility] species, DNA 2:41 PM CDT [facility] Gardnerella Positive (A) Negative 06/29/2017 [facility] vaginalis, DNA 2:41 PM CDT [facility] Trichomonas Negative Negative 06/29/2017 [facility] vaginalis, DNA 2:41 PM CDT [facility] Specimen Anatomical Collection Method Collection Time Receive d Time (Source) Location / / Volume Laterality Swab (Vagina) 06/29/2017 1:15 PM 06/30/19 18 1:28 CDT PM CDT Mariesl Ferrer M.D. LAB MICROBIOLOGY - GEN ERAL ORDERABLES Performing Organization Address City/State/ZIP Code Phon e Number [facility] [address] [place] [address] [facility] LAB [facility]- [address] [place] [address] [facility] LAB (ABNORMAL) Chlamydia / gonorrhoeae Amplified RNA (06/29/2017 1:15 PM CDT) [employer] Method Time Signature Source vaginal 07/02/2017 [facility] 11:18 AM CDT [facility] Chlamydia Positive (A) Negative 07/02/2017 [facility] trachomatis 11:18 AM CDT [employer] [facility] Comment: ----ADDITIONAL INFORMATION---- This report is intended for use in clini kehinde monitoring and management of patients. It is not in tended for use in medical-legal applications. Source VAGINA 07/02/2017 11:18 AM [place] [employer] CDT [facility] Neisseria gonorrhoeae Negative Negative 07/02/2017 11:18 A M [facility] [employer] amplified RNA CDT [facility] Comment: ----ADDITIONAL INFORMATION---- This report is intended for use in clini kehinde monitoring and management of patients. It is not in tended for use in medical-legal applications. Semi-Urgent This is a semi-urgent result ([place]) [facility] LAB Specimen Anatomical Collection Method Collection Time Receive d Time (Source) Location / / Volume Laterality Varies 06/29/2017 1:15 PM 8 (Cervix/Endocerv CDT 11:55 PM CD T ix) Marisel Ferrer M.D. LAB MICROBIOLOGY - GEN ERAL ORDERABLES Performing Organization Address City/State/ZIP Code Phon e Number [facility] [address] [place] [address] LAB ThinPrep Screen HPV Reflex (06/29/2017 1:13 PM CDT) Component Value Ref Test Analysis Performed Pathologis t Range Method Time At Signature 07/10/2017 [facility] 1:00 PM HEALTH CDT [facility] CYT[facility] Report Tae Owusu MD 07/10/2017 [facility] electronically I verify that I have examined all relevant slides/ma terials 1:00 PM HEALTH signed by for the specimen(s) and rendered or confirmed the diagnosi s. CDT [facility] CYTOLOGY Gross Description Received specimen 07/10/2017 [facility] in a ThinPrep 1:00 PM HEALTH vial. CDT [facility] Pap Test Source Cervical/Endocervi 07/10/2017 [facility] kehinde 1:00 PM HEALTH CDT [facility] Clinical History having periods 07/10/2017 [facility] INIC 1:00 PM HEALTH CDT [facility] Menstrual lmp 06/17/2017 07/10/2017 [facility] Status(LMP, PM, 1:00 PM HEALTH ) CDT [facility] Hormone control 07/10/2017 [facility] Therapy/Contracep 1:00 PM HEALTH tives CDT [facility] Interpretation Cervical/Endocervical ??(ThinPrep): 07/10/2017 [facility] Satisfactory for Evaluation 1:00 PM HE [...] Code Phon e Number [facility] [address] [place] [address] CYTOLOGY (ABNORMAL) CBC with Differential, Blood (06/29/2017 1:11 PM CDT) [facility] Method Time Signature Hemoglobin 11.7 11.6 - 06/29/2017 [facility] 15.0 g/dL 3:48 PM CDT [facility] [place] [facility] Hematocrit 35.3 (L) 35.5 - 06/29/2017 [facility] 44.9 % 3:48 PM CDT [facility] [place] [facility] Erythrocytes 3.99 3.92 - 06/29/2017 [facility] 5.13 3:48 PM CDT HEALTH x10(12)/L [facility] [place] [facility] MCV 88.5 78.2 - 06/29/2017 [facility] 97.9 fL 3:48 PM CDT [facility] [place] [facility] RBC Distrib Width 13.0 12.2 - 06/29/2017 [facility] 16.1 % 3:48 PM CDT [facility] [place] [facility] Platelet Count 175 157 - 371 06/29/2017 [facility] x10(9)/L 3:48 PM CDT [facility] [place] [facility] Leukocytes 5.5 3.4 - 9.6 06/29/2017 [facility] x10(9)/L 3:48 PM CDT [facility] [place] [facility] Neutrophils 2.93 1.56 - 06/29/2017 [facility] 6.45 3:53 PM CDT HEALTH x10(9)/L [facility] [place] [facility] Lymphocytes 1.98 0.95 - 06/29/2017 [facility] 3.07 3:53 PM CDT HEALTH x10(9)/L [facility] [place] [facility] Monocytes 0.51 0.26 - 06/29/2017 [facility] 0.81 3:53 PM CDT HEALTH x10(9)/L [facility] [place] [facility] Eosinophils 0.01 (L) 0.03 - 06/29/2017 [facility] 0.48 3:53 PM CDT HEALTH x10(9)/L [facility] [place] [facility] Basophils 0.08 0.01 - 06/29/2017 [facility] 0.08 3:53 PM CDT HEALTH x10(9)/L [facility] [place] [facility] Specimen Anatomical Collection Method Collection Time Receive d Time (Source) Location / / Volume Laterality Blood 06/29/2017 1:11 PM 8 3:45 CDT PM CDT Marisel Ferrer M.D. LAB BLOOD ADD-ON Performing Organization Address City/State/ZIP Code Phon e Number [facility] [address] [place] [address] LAB documented in this encounter Visit Diagnoses [...] as of this encounter Care Teams Chip Drier Relationship Specialty Start Date End Date Kandi Alberts, TATY, C.N.P. PCP - General 07/27/16 07/10/182199 [place] [address] documented as of this encounter
--- OUTSIDE RECORDS SUMMARY | 2022-01-11 09:45 | XMS_ITS | Encounter Summary ---
:1985 Author Organization [facility] Address [address] [place] [address] Care Team Providers Name Role Phone Kandi Alberts APRN CGordonNGordonPGordon Primary Care Provider [phone] Encounter Details Date Type Department Care Team Description 11/21/2017 Hospital Encounter Department of Helen [facility] Radiology, [place], in P.A.-C. [place], [address] [place], [place] [address] [facility] [address] [place], [place] [phone] (Work) [phone] Social History Tobacco Use Types Packs/Day Years [...] How often do you attend synagogue or muslim Never 01/31/2019 services? 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 Marisa Zapata P.A.-C. IMBela DIAGNOSTIC IMAGING AR OCEDURES documented in this encounter Visit Diagnoses Diagnosis Radiculopathy Lumbosacral documented in this encounter Additional Health Concerns Assessment Noted Time PHQ-9 Depression Total Score: 15 09/28/2017 3:51 PM CD T documented as of this encounter Care Teams Supervisor Machine Setter Relationship Specialty Start Date End Date Kandi Alberts, TATY, C.N.P. PCP - General 07/27/16 07/10/[address] [phone] documented as of this encounter
--- OUTSIDE RECORDS SUMMARY | 2022-01-11 09:45 | XMS_ITS | Encounter Summary ---
:1985 Author Organization [facility] Address [address] [place] [address] Care Team Providers Name Role Phone Kandi Alberts APRN, C.N.P. Primary Care Provider [phone] Encounter Details Date Type Department Care Team Description 06/29/2017 Clinical Communication Department of [facility] Ni Alberts, Medicine, [place] TATY, C.N.P. [facility], [place] [address] [place], [place] [address] [address] [place], [place] [phone] [address] (Work) [phone] Social History Tobacco Use Types Packs/Day Years [...] How often do you attend yazdanism or mu-ism Never 01/31/2019 services? 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 - 06/29/2017 2:47 PM CDT Spoke with Dr. Brush and rx is to take 4 tablets at once. Contacted [facility] pharmacy and spoke to pharmacistAzul. Telephone Encounter - Brittney Bird - 06/29/2017 1:10 PM CDT Richard from [facility] in [place] calls to clarify instructions for Zithromax. documented in this encounter Plan of Treatment Not on filedocumented as of this encounter Visit Diagnoses Not on filedocumented in this encounter Additional Health Concerns Assessment Noted Time PHQ-9 Depression Total Score: 9 06/29/2017 11:57 AM CD T documented as of this encounter Care Teams Media Relations Manager Relationship Specialty Start Date End Date Kandi Alberts, SOLDERING MACHINE OPERATOR HELPER, C.N.P. PCP - General 07/27/16 07/10/18 [address], [place] [phone] documented as of this encounter
--- OUTSIDE RECORDS SUMMARY | 2022-01-11 09:45 | XMS_ITS | Encounter Summary ---
:1985 Author Organization [facility] Address [address] [place] [address] Care Team Providers Name Role Phone Kandi Alberts APRN, C.N.P. Primary Care Provider [phone] Encounter Details Date Type Department Care Team [...] How often do you attend hoahaoism or voodoo Never 01/31/2019 services? Do you [...] Date Recorded Female 01/11/2018 2:20 PM MOLD WORKER documented as of this encounter Plan of Treatment Not on filedocumented as of this encounter Visit Diagnoses Not on filedocumented in this encounter Additional Health Concerns Assessment Noted Time PHQ-9 Depression Total Score: 15 09/28/2017 3:51 PM CD T documented as of this encounter Care Teams Panel Installer Relationship Specialty Start Date End Date Kandi Alberts, TATY, C.N.P. PCP - General 07/27/16 07/10/18 [address] [address] documented as of this encounter
--- OUTSIDE RECORDS SUMMARY | 2022-01-11 09:45 | XMS_ITS | Encounter Summary ---
:1985 Author Organization [facility] Address [address] [place] [address] Care Team Providers Name Role Phone Kandi Alberts APRN CGordonNGordonPGordon Primary Care Provider [phone] Encounter Details Date Type Department Care Team Description 09/28/2017 Orders Only Department of [facility] Carito coronado Medicine, [facility] in [facility] rotary cutter operator [address] [place] [address] [place] [phone] (Wo rk) Social History Tobacco Use Types [...] How often do you attend buddhist or pentecostal Never 01/31/2019 services? 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/2018 2:20 PM CUSTOMS PORT DIRECTOR documented as of this encounter Plan of Treatment Not on filedocumented as of this encounter Visit Diagnoses Not on filedocumented in this encounter Additional Health Concerns Assessment Noted Time PHQ-9 Depression Total Score: 15 09/28/2017 3:51 PM CD T documented as of this encounter Care Teams Auto Striper Relationship Specialty Start Date End Date Kandi Alberts, GAMBLING BOX PERSON, C.N.P. PCP - General 07/27/16 07/10/[address] [address] documented as of this encounter
--- OUTSIDE RECORDS SUMMARY | 2022-01-11 09:45 | XMS_ITS | Encounter Summary ---
:1985 Author Organization [facility] Address [address] [place] [address] Care Team Providers Name Role Phone Kandi Alberts APRN, C.N.P. Primary Care Provider [phone] Encounter Details Date Type Department Care Team Description 07/03/2017 Clinical Communication Department of [facility] Ni Alberts, Medicine, [place] TATY, C.N.P. [facility], [place] [address] [place], [place] [address] [address] [place], [place] [phone] (Work) [phone] Social History Tobacco Use Types Packs/Day Years [...] How often do you attend baptism or religion Never 01/31/2019 services? Do you [...] to pay for the very basics like [employer] hat hard 11/27/2019 food, housing, medical care, [...] at Date Recorded Female 01/11/2018 2:20 PM VENDING MANAGER documented as of this encounter Plan of Treatment Not on filedocumented as of this encounter Visit Diagnoses Not on filedocumented in this encounter Additional Health Concerns Assessment Noted Time PHQ-9 Depression Total Score: 9 06/29/2017 11:57 AM CD T documented as of this encounter Care Teams Balloon Dipper Relationship Specialty Start Date End Date Kandi Alberts, WIND TURBINE ERECTOR, C.N.P. PCP - General 07/27/16 07/10/18 [address], [place] [address] documented as of this encounter
--- OUTSIDE RECORDS SUMMARY | 2022-01-11 09:45 | XMS_ITS | Encounter Summary ---
:1985 Author Organization [facility] Address [address] [place] [address] Care Team Providers Name Role Phone Kandi Alberts APRN CGordonNGordonPoGrdon Primary Care Provider [phone] Reason for Referral Outpatient (Routine) - Closed Specialty Diagnoses / Procedures Referred By Contact Refer red To Contact Diagnoses Radiculopathy Lumbar Weakness Leg Left Marisa Zapata, [facility] Procedures [facility] P.A.-C. [address] [place], [place] [phone] Referral ID Status Reason Start Date Expiration Date Visits Requ ested Visits Authorized [id number] Closed 11/21/2017 11/21/2018 1 1 Reason for Visit Outpatient (Routine) - Closed Specialty Diagnoses / Procedures Referred By Contact Refer red To Contact Diagnoses Radiculopathy Lumbar Weakness Leg Left Marisa Zapata, [facility] Procedures EMG P.A.-C. [address] [place], [place] [address] Referral ID Status Reason Start Date Expiration Date Visits Requ ested Visits Authorized [id number] Closed 11/21/2017 11/21/2018 1 1 Encounter Details Date Type Department Care Team Description 11/28/2017 Hospital Encounter Department of Zapata, Radiculo blanca Lumbar; Neurology in Marisa Chan Weakness Leg Le ft Sweetie [place] [address] [facility] [address] [place] [address] [phone] Social History Tobacco Use Types Packs/Day Years [...] How often do you attend advent or moravian Never 01/31/2019 services? 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/2018 2:20 PM EQUINE INTERN documented as of this encounter Medications at [...] ? Final Report Study Number: 1 EMG Poly Area Supervisor: Benson Drew . 127 o r [phone] Referred by: MARISA AMATO (127 or ( [phone]) Referred for: low back and left leg [...] the interpretation. Liliam Jeffery/Mana Drew (127 or [phone])/ [facility] NERVE CONDUCTIONS ?Temperat ure: 30.2 ? [...] Final Repor t Study Number: 1 EMG Poly Area Supervisor: Benson Drew . 127 o r [phone] Referred by: MARISA AMATO (127 or ( [phone]) Referred for: low back and left leg [...] the interpretation. Liliam Jeffery/Mana Drew (127 or [phone])/ [facility] NERVE CONDUCTIONS Temperature: 30.2 ? ??C [...] as of this encounter Care Teams Inspector Assemblies And Installations Relationship Specialty Start Date End Date Kandi Alberts APRN, C.N.P. PCP - General 07/27/16 07/10/[address] [address] documented as of this encounter
--- OUTSIDE RECORDS SUMMARY | 2022-01-11 09:45 | XMS_ITS | Encounter Summary ---
:1985 Author Organization [facility] Address [address] [place] [address] Care Team Providers Name Role Phone Kandi Alberts APRN C.N.P. Primary Care Provider Encounter Details Date Type Department Care Team Description 07/02/2017 Orders Only Department of Family Colt bruno Pelvic Female Medicine, MalcomMarisel villareal, (Primary Dx) Clinic, in [place] [address] [place] [phone] Social History Tobacco Use Types Packs/Day Years [...] How often do you attend zoroastrianism or anglican Never 01/31/2019 services? Do you [...] to pay for the very basics like [employer] hat hard 11/27/2019 food, housing, medical care, [...] Recorded Female 01/11/2018 2:20 PM DIRECTOR OF UNDERGRADUATE ADMISSIONS documented as of this encounter Plan of Treatment Not on filedocumented as of this encounter Visit Diagnoses Diagnosis Pain Pelvic Female - Primary documented in this encounter Additional Health Concerns Assessment Noted Time PHQ-9 Depression Total Score: 9 06/29/2017 11:57 AM CD T documented as of this encounter Care Teams Assistant Director Of Admissions Relationship Specialty Start Date End Date Kandi Alberts, JOB LITHOGRAPHER, C.N.P. PCP - General 07/27/16 07/10/18 [address], [place] [address] documented as of this encounter
--- OUTSIDE RECORDS SUMMARY | 2022-01-11 09:45 | XMS_ITS | Encounter Summary ---
:1985 Author Organization [facility] Address [address] [place] [address] Care Team Providers Name Role Phone Kandi Alberts APRN CGordonNGordonPGordon Primary Care Provider [phone] Reason for Referral MRI/CAT/PET Scan (Routine) - Closed Specialty Diagnoses / Procedures Referred By Contact Refer red To Contact Radiology Diagnoses [facility]opathy Lumbar [facility] MR Lumbar Spine without IV Contrast SD MRI LUMB SPINE WO CNTRST HC MRI LUMB SPINE WO CNTRST P.A.-C. [address] [place] [address] Referral ID Status Reason Start Date Expiration Date Visits Requ ested Visits Authorized [id number] Closed 11/21/2017 11/21/2018 1 1 Reason for Visit MRI/CAT/PET Scan (Routine) - Closed Specialty Diagnoses / Procedures Referred By Contact Refer red To Contact Radiology Diagnoses Radiculopathy Lumbar Benny Marisa [facility] Procedures MR Lumbar Spine without IV Contrast SD MRI LUMB SPINE WO CNTRST HC MRI LUMB SPINE WO CNTRST P.A.-C. [address] [place] [address] Referral ID Status Reason Start Date Expiration Date Visits Requ ested Visits Authorized [id number] Closed 11/21/2017 11/21/2018 1 1 Encounter Details Date Type Department Care Team Description 11/22/2017 Hospital Encounter Department of Helen Zapata Lumbar Radiology, Anthony Bill, in P.A.-C. 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 FINDINGS: Allowing for differences in appliance repair technician nique and patient position, no [...] spine 03/01/2016. FINDINGS: Allowing for differences in appliance repair technician nique and patient position, no [...] documented as of this encounter Care Teams Research Nurse Relationship Specialty Start Date End Date Kandi Alberts, TATY, C.N.P. PCP - General 07/27/16 07/10/[address] [address] documented as of this encounter
--- OUTSIDE RECORDS SUMMARY | 2022-01-11 09:45 | XMS_ITS | Encounter Summary ---
:1985 Author Organization [facility] Address [address] [place] [address] Care Team Providers Name Role Phone Kandi Alberts APRN C.NGordonPGordon Primary Care Provider [phone] Encounter Details Date Type Department Care Team Description 06/29/2017 Orders Only Department of [facility] Carito coronado [facility], [facility] in [facility] doreen [address] [place] [address] [facility] [place] [phone] (Wo rk) Social History Tobacco Use Types [...] How often do you attend caodaism or moravian Never 01/31/2019 services? 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/2018 2:20 PM EDI COORDINATOR documented as of this encounter Plan of Treatment Not on filedocumented as of this encounter Visit Diagnoses Not on filedocumented in this encounter Additional Health Concerns Assessment Noted Time PHQ-9 Depression Total Score: 9 06/29/2017 11:57 AM CD T documented as of this encounter Care Teams Fire Extinguisher Technician Relationship Specialty Start Date End Date Kandi Alberts, REVIEW APPRAISER, C.N.P. PCP - General 07/27/16 07/10/[address] [address] documented as of this encounter
--- OUTSIDE RECORDS SUMMARY | 2022-01-11 09:46 | XMS_ITS | Encounter Summary ---
:1985 Author Organization [facility] Address [address] [place] [address] Care Team Providers Name Role Phone Unavailable Primary Care Provider Unavailable Encounter Details Date Type Department Care Team Description 08/14/2013 Hospital Encounter HX [facility] Emily Robertson Jr., M.D. [address], [place] [phone] (Wo rk) Social History [...] How often do you attend jewish or sikhism Never 01/31/2019 services? 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 - 08/14/2013 10:13 AM CDT [id number] CHIEF COMPLAINT/REASON FOR VISIT OB transfer of care, per Liseth Perry CNP. HISTORY OF PRESENT ILLNESS Wendi is 28-year-old 6, para 2-0-3-2 female at unknown gestational age who presents to the clinic for OB transfer of care, per Liseth Perry CNP. She had confirmation at [facility] on 07/24/2013 and they estimated that she was 6.5 weeks gestation at that time, which would make her 7.5 weeks today. I previously saw her for management of miscarriage in April 2013, and she did not have a menstrual period following this before she became . Wnedi's is complicated by a history of LT section x2 with two layer uterine closure and Rh negative status. She was also previously seen at [facility] ED approximately 2 weeks ago for heavy vaginal bleeding and clotting. She did have RhoGAM administered at that time. Bleeding has since resolved, but she is still having some abdominal cramping. Wendi believes that she has had routine labs done at [facility], but she has not had any previous [...] or fever. She did receive RhoGAM at [facility] ED 2 weeks ago. The possibility of [...] their behalf by Latanya Murray, a trained nurses medical assistants phlebotomists. The creation of this record is based on the scribe's personal observations and the provider's statements to them. This document has been ch ecked and approved by the attending provider. Emily Gomez M.D./dilip Electronically Signed By: EMILY GOMEZ MD On: 08/14/2013 02:21 PM Source: [facility] MHSDOLBEYNONRADSYS Document Id: [id number] documented in this encounter Miscellaneous Notes Miscellaneous - Emily Gomez Jr., M.D. - 08/14/2013 11:20 AM CDT Ambulatory Patient Summary [address] [id number] Visit Information Name: WENDI ODONNELL [facility] Number: [id number] Current Date: 08/14/2013 11:20:02 [...] appointment detail needed. Your Goals/Additional instructions: Source: [facility] POWERCHART Document Id: [id number] Miscellaneous - Emily Gomez Jr., M.D. - 08/14/2013 11:20 AM CDT Ambulatory Discharge Medication List [address] [id number] Visit Information Name: WENDI ODONNELL [facility] Number: [id number] Visit Date: 08/14/2013 11:20:00 [...] MD Signed On:14-AUG-2013 11:19:38 Additional Information: Source: [facility] POWERCHART Document Id: [id number] Miscellaneous - Adán Ward L.P.N. - 08/14/2013 10:51 AM CDT Adult Repair Operator Intake/History Adult Repair Operator Intake/History Entered On: 08/14/2013 10:53 CDT Performed [...] Preferred Communication Mode : Verbal Languages : Norwegian ADÁN WARD LPN - 08/14/2013 10:51 CDT Subjective Pain Symptoms : Yes ADÁN WARD LPN - 08/14/2013 10:51 CDT Pain Pain Assessment Grid Pain 1 Location : Abdomen (Comment: cramps [ADÁN WARD LPN - 08/14/2013 10:51 CDT] ) Laterality : Bilateral ADÁN WARD LPN - 08/14/2013 10:51 CDT Dependent Habits Tobacco Use/Currently Using : No Smoking Status : Never smoker ADÁN WARD Eliel FIRE INSPECTOR - 08/14/2013 10:51 CDT Caffeine Use Grid Caffeine Use : Current Type : Energy drinks Frequency : Weekly Amount : 1 ADÁN WARD Eliel BARTON - 08/14/2013 10:51 CDT [facility] Document Id: [id number] CDT!35 documented in this encounter Plan of [...] athologist Signature HXN gonor Amp Negative POWERCHART DNA-[place] Specimen (Source) Anatomical Collection Method Collection Time Re ceived Time Location / / Volume Laterality 08/14/2013 11:30 AM CDT Narrative POWERCHART - 08/16/2013 8:35 PM CDT Test Performed by: [place] [address] Feed Research Aide: Delano bella, IIIOlu Emily Gomez Jr., M.D. LAB HISTORICAL ORDERS Performing Organization Address City/State/ZIP Code Phon e Number POWERCHART HX-N gonor Amp Src (08/14/2013 11:30 AM CDT) athologist Signature HXN gonor Amp Urine POWERCHART Src-[place] Specimen (Source) Anatomical Collection Method Collection Time Re ceived Time Location / / Volume Laterality 08/14/2013 11:30 AM CDT Emily Gomez Jr., M.D. LAB HISTORICAL ORDERS Performing Organization Address City/State/ZIP Code Phon e Number POWERCHART HX-C trach Amp RNA (08/14/2013 11:30 AM CDT) [facility] gist Method Time [facility] Chlamydia Negative POWERCHART trachomatis amplified RNA [...] BANK TEST ORDERABL ES Performing Organization Address City/[facility]/ZIP Code Phon e Number POWERCHART Grouping and Rh-[place] FLIP, see #[id number] (08/14/2013 11:30 AM CDT) [facility] gist Method Time Signature HX Grouping A Negative POWERCHART and Rh Specimen (Source) Anatomical Collection Method Collection Time Re ceived Time Location / / Volume Laterality 08/14/2013 11:30 AM CDT Emily Gomez Jr., M.D. LAB BLOOD BANK TEST ORDERABL ES Performing Organization Address City/[facility]/ZIP Code Phon e Number POWERCHART Automated Differential [...] X109L Erythrocytes 4.50 3.90 - POWERCHART 5.03 [id number] Hemoglobin 13.2 12.0 - POWERCHART 15.5 GDL [...] as a possible source. Test Performed by: [place] [address] Feed Research Aide: Delano bella III, M.D. Specimen Anatomical Collection Method Collection Time Receive d Time (Source) Location / / Volume Laterality Blood 08/14/2013 11:30 08/15/2013 AM CDT 10:06 AM CDT Historical Provider LAB BLOOD BANK TEST ORDERABL ES Performing Organization Address City/[facility]/ZIP Code Phon e Number POWERCHART bHCG (Beta-Human Chorionic Gonadotropin), Quantitative (08/14/2013 11:30 AM CDT) [facility] gist Method Time Signature Beta-HCG, Separate POWERCHART Quantitative, Report S Specimen (Source) Anatomical Collection Method Collection Time Re ceived Time Location / / Volume Laterality Blood 08/14/2013 11:30 AM CDT Emily Gomez Jr., M.D. LAB BLOOD ADD-ON Performing Organization Address City/[facility]/ZIP Code Phon e Number POWERCHART Profile II without CBC/Serum (08/14/2013 11:30 AM CDT) athologist Signature HX Rubella Positive POWERCHART IgG-[place] Comment: Results suggest response to immunization or prior exposure to the virus. -- REFERENCE VALUE -- Vaccinated: Positive (>=1.0 AI) Unvaccinated: Negative (<=0.7 AI) Rubella IgG Antibody Index 2.7 POW ERCHART Syphilis IgG Ab, S Negative Negative POWERCHART Comment: No serologic evidence of exposu re to syphilis. HBs Antigen, S Negative Negative POWERCHART Comment: Test Performed by: [facility] [address] [place] [address] Feed Research Aide: Delano bella III, M.D. Specimen (Source) Anatomical Collection Method Collection Time Re ceived Time Location / / Volume Laterality Blood 08/14/2013 11:30 AM CDT Emily Gomez Jr., M.D. LAB BLOOD NON ADD-ON Performing Organization Address City/State/ZIP Code Phon e Number POWERCHART Thyroid-Stimulating Hormone-Sensitive (s-TSH) (08/14/2013 11:30 AM CDT) P athologist Signature TSH, Sensitive 1.2 0.3 - 5.0 POWERCHART MIUL Comment: Test Performed by: [facility] [address] [place] [address] Feed Research Aide: Delano bella III, M.D. Specimen (Source) Anatomical [...] HIV-2 DNA/RNA test (FHV2Q). Test Performed by: [facility] [address] [place] [address] Feed Research Aide: Delano bella III, M.D. Specimen (Source) Anatomical Collection Method Collection Time Re ceived Time Location / / Volume Laterality Blood 08/14/2013 11:30 AM CDT Emily Gomez Jr., M.D. LAB MICROBIOLOGY - BLOOD ORD ERABLES Performing Organization Address City/[facility] Code Phon e Number POWERCHART 25-Hydroxyvitamin D2 [...] within this r hoa. Test Performed by: [place] [id number] Feed Research Aide: Delano bella III, M.D. Specimen (Source) Anatomical Collection Method Collection Time Re ceived Time Location / / Volume Laterality Blood 08/14/2013 11:30 AM CDT Emily Gomez Jr., M.D. LAB BLOOD ADD-ON Performing Organization Address City/State/[facility] Code Phon e Number POWERCHART documented in this encounter Visit Diagnoses Not on filedocumented in this encounter Additional Health Concerns Assessment Noted Time PHQ-9 Depression Total Score: 18 06/21/2009 11:24 AM C DT documented as of this encounter
--- OUTSIDE RECORDS SUMMARY | 2022-01-11 09:46 | XMS_ITS | Encounter Summary ---
:1985 Author Organization [facility] Address [address] [place] [address] Care Team Providers Name Role Phone Unavailable Primary Care Provider Unavailable Encounter Details Date Type Department Care Team Description 10/02/2011 Hospital Encounter HX NO MAPPING Lucy Jay M.D. [address] [place], [place] [address] (Wo rk) Social History [...] How often do you attend islam or baptist Never 01/31/2019 services? 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/2018 2:20 PM CLINIC COORDINATOR documented as of this encounter Plan of Treatment Not on filedocumented as of this encounter Visit Diagnoses Not on filedocumented in this encounter Additional Health Concerns Assessment Noted Time PHQ-9 Depression Total Score: 18 06/21/2009 11:24 AM C DT documented as of this encounter
--- OUTSIDE RECORDS SUMMARY | 2022-01-11 09:46 | XMS_ITS | Encounter Summary ---
:1985 Author Organization [facility] Address [address] [place] [address] Care Team Providers Name Role Phone Unavailable Primary Care Provider Unavailable Encounter Details Date Type Department Care Team Description 07/14/2015 Hospital Encounter HX [facility] FAMILYPRA Michelle Hankins, TATY, C.N.P. [address] [place] [address] (Wo rk) Social History Tobacco [...] at Date Recorded Female 01/11/2018 2:20 PM OVERCASTER documented as of this encounter Last Filed [...] ago. She follows with Dr. Soto in [place]. She was on gabapentin and Naproxen. Naproxen was discontinued due to an ulcer. She has been using Tylenol butit hasn't been helping. She plans to schedule a follow up appointment with Dr. Soto. She sees Marianna Escamilla, Psychiatric Nurse Practitioner at [facility] in [place]. She was recently switched from Effexor to [...] must include the following: Cholesterol, serum, total (01267) Lipoprotein, direct measurement, high density cholesterol (HDL cholesterol) (71737) Triglycerides (41749). (09/05/2007), section - at term (2007), D&C [...] Urine OV Est Pt Level 4 - 04577 - 25 min Depressive psychosis, recurrent episodes Follows with Marianna Escamilla, Psychiatric Nurse Practitioner at [facility]. Has call in for advice regarding recent change in antidepressant medication. Ordered: OV Est Pt Level 4 - 30479 - 25 min Infection Staphylococcus (Staph) Aureus Keflex 500 mg, one 3 times daily for 10 days. I will call with culture result. Ordered: Culture Aerobic OV Est Pt Level 4 - 05149 - 25 min Pain Low Back (LBP) Chronic Worsening, schedule appointment with Dr. Soto. Continue Tylenol as needed. Ice and rest. Ordered: OV Est Pt Level 4 - 33431 - 25 min Orders: cephalexin, 500 mg = 1 cap(s), PO, 3xDay, x 10 day(s), # 30 cap(s), 0 Refill(s), Acute, Pharmacy: [id number] Electronically Signed By: MICHAEL HANKINS APRN, CNP On: 07/14/2015 04:45 PM Source: [employer] Document Id: [id number] documented in this encounter Nursing Notes Michael [...] direct contact with an infected person through qqwc-hb-kafc contact. It also spreads through contact with [...] of staph bacteria that are resistant, or dlft-iw-fccs. This means the bacteria cannot be treated [...] even if youre f eeling better. ?? [phone] Kyle Kenny, [address] [place] [address], [place] [address]. All rights reserved. This information is not intended as a substitute for professional medical care. Always follow your healthcare professional's instructions. This document has images extracted. Please consider using [employer] for all your patient education needs. Source: [facility] POWERCHART Document Id: [id number] documented in this encounter Miscellaneous Notes Miscellaneous - Michael Hankins APRN, C.N.P. - 07/14/2015 4:18 PM CDT Ambulatory Patient Summary [address] [id number] Visit Information Name: CATHERINEWENDI [facility] Number: [id number] Current Date: 07/14/2015 16:18:11 [...] times a day x 10 day(s) New [address] [id number] FLUoxetine (PROzac 40 mg oral capsule) 1 [...] direct contact with an infected person through aabj-gq-hajo contact. It also spreads through contact with [...] of staph bacteria that are resistant, or ecqh-nm-chck. This means the bacteria cannot be treated [...] finished, even if youre feeling better. ?? 7413-1156 [facility], [address] [place] [address]. All rights reserved. This information is not [...] if you dont have one. Go to [email or web address] and click on Create Your Account. Then, follow the directions to complete the online form. Youll be asked for your [facility] number which you can find at the top of this document. Your Goals/Additional instructions: This document has images extracted. Please consider using [employer] for all your patient education needs. Source: [facility] POWERCHART Document Id: [id number] Miscellaneous - Michael Hankins APRN, C.N.P. - 07/14/2015 4:18 PM CDT Ambulatory Discharge Medication List [address] [id number] Visit Information Name: WENDI ALEXANDER [facility] Number: [id number] Visit Date: 07/14/2015 16:18:11 Attending Provider: MICHAEL HANKINS APRN, CNP Primary Care Provider: MICHAEL HANKINS APRN [facility] WENDI ALEXANDER has been given the following [...] times a day x 10 day(s) New [address] [address] FLUoxetine (PROzac 40 mg oral [...] Signed On:14-JUL-2015 16:18:00 Additional Information: Source: [facility] POWERCHART Document Id: [id number] Miscellaneous - Thias Yi L.P.N. - 07/14/2015 4:02 PM CDT Adult Insurance Follow Up Representative Intake/History Adult Insurance Follow Up Representative Intake/History Entered On: 07/14/2015 16:09 CDT Performed [...] Preferred Communication Mode : Verbal Languages : Sammarinese Is Patient Female and 13-50 no hysterectomy [...] MICK - 07/14/2015 16:02 CDT LAMINEMAXIMINOTHAIS Ortega ROOMING HOUSE INSPECTOR - 07/14/2015 16:02 CDT Dependent Habits Exposure [...] YI MICK - 07/14/2015 16:02 CDT Source: [employer] Document Id: [id number]!53 documented in this encounter Plan of [...] Bacterial Culture, Aerobic (07/14/2015 4:28 PM CDT) [facility] Method Time Signature Organism POWERCHART Refer [...] Test, Qualitative, Urine (07/14/2015 4:26 PM CDT) [facility] Method Time Signature HXBeta-hCG Negative POWERCHART Qualitative Urine Specimen (Source) Anatomical Collection Method Collection Time Re ceived Time Location / / Volume Laterality Urine 07/14/2015 4:26 PM CDT Michael Hankins APRN, C.N.P. LAB URINE ORDERABLES Performing Organization Address City/[facility]/ZIP Code Phon e Number POWERCHART documented in this encounter Visit Diagnoses Not on filedocumented in this encounter Additional Health Concerns Assessment Noted Time PHQ-9 Depression Total Score: 19 01/20/2015 2:44 PM CS T documented as of this encounter
--- OUTSIDE RECORDS SUMMARY | 2022-01-11 09:46 | XMS_ITS | Encounter Summary ---
:1985 Author Organization [facility] Address [address] [place] [address] Care Team Providers Name Role Phone Unavailable Primary Care Provider Unavailable Encounter Details Date Type Department Care Team Description 03/11/2012 Hospital Encounter HX [facility] Shayne Woody M.D. [address] [place], [place] [phone] (Wo rk) Social History [...] How often do you attend jainism or amish Never 01/31/2019 services? 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/2018 2:20 PM DIESEL RETROFIT INSTALLER documented as of this encounter Last Filed Vital Signs Vital Sign Reading Time Taken Comments Blood Pressure 118/64 03/11/2012 3:45 PM DIESEL RETROFIT INSTALLER Pulse - - Temperature - - Respiratory Rate - - Oxygen Saturation - - Inhaled Oxygen Concentration - - Weight 62.2 kg (137 lb 2 oz) 03/11/2012 3:45 PM DIESEL RETROFIT INSTALLER Height - - Body Mass Index 24.92 02/12/2012 1:41 PM DIESEL RETROFIT INSTALLER documented in this encounter Progress Notes Emmy Shannon M.D. - 03/11/2012 3:39 PM CST [id number] CHIEF COMPLAINT/REASON FOR VISIT OB followup HISTORY [...] is therefore a TOLAC candidate. [facility] consent form has been signed. [...] SHANNON MD On: 03/12/2012 04:33 PM Source: [facility] MHSDOLBEYNONRADSYS Document Id: [id number] EL RETROFIT INSTALLER documented in this encounter Procedure Notes Conversion, Historical Provider Ser - 03/11/2012 5:00 PM CST Urine Dipstick Urine Dipstick Entered On: 03/11/2012 17:00 DIESEL RETROFIT INSTALLER Performed On: 03/11/2012 17:00 DIESEL RETROFIT INSTALLER by ZURDO GONZALEZ Urine Dipstick UA Color POC : Yellow UA Appear POC : Clear UA Protein POC : Negative UA Glucose POC : Negative ZURDO GONZALEZ - 03/11/2012 17:00 DIESEL RETROFIT INSTALLER Source: [facility] SavySwap Document Id: [id number] documented in this encounter Miscellaneous Notes Ori - Emmy Shannon M.D. - 03/11/2012 4:25 PM CST Ambulatory Patient Summary [address] [id number] Visit Information Name: WENDI ODONNELL [facility] Number: [id number] Visit Date: 03/11/2012 16:25:21 [...] your provider for clarification. Additional Information: Source: [facility] burrp!CHART Document Id: [id number] EL RETROFIT INSTALLER Ori - Emmy Shannon M.D. - 03/11/2012 4:25 PM CST Ambulatory Depart Summary [address] [id number] Visit Information Name: WENDI ODONNELL [facility] Number: [id number] Visit Date: 03/11/2012 16:25:20 [...] your provider for clarification. Additional Information: Source: [facility] POWERCHART Document Id: [id number] EL RETROFIT INSTALLER Miscellaneous - Conversion, Historical Provider Ser - 03/11/2012 3:45 PM DIESEL RETROFIT INSTALLER Adult Scanning Coordinator Intake/History Adult Scanning Coordinator Intake/History Entered On: 03/11/2012 15:46 DIESEL RETROFIT INSTALLER Performed On: 03/11/2012 15:45 DIESEL RETROFIT INSTALLER by ZURDO GONZALEZ Intake Chief Complaint : ob visit 37+2 LMP Date : 06-24-11 Systolic Blood Pressure : 118mmHg Diastolic Blood Pressure : 64mmHg NIBP Mean : 82mmHg BP Location : Left upper extremity Blood Pressure Cuff Size : Regular Actual Weight : 62.2kg(Converted to: 137lb 2oz) Weight Source : Standing scale Dosing Weight Clinic : 62.20kg ZURDO GONZALEZ - 03/11/2012 15:45 DIESEL RETROFIT INSTALLER Subjective Pain Symptoms : No ZURDO GONZALEZ - 03/11/2012 15:45 DIESEL RETROFIT INSTALLER Dependent Habits Tobacco Use/Currently Using : No Tobacco Use/Last 12 months : No Smoking Status : Never smoker ZURDO GONZALEZ - 03/11/2012 15:45 DIESEL RETROFIT INSTALLER Caffeine Use Grid Caffeine Use : Current Type : Energy drinks Frequency : Weekly Amount : 1 ZURDO GONZALEZ - 03/11/2012 15:45 DIESEL RETROFIT INSTALLER Allergy Allergies (Active) NKA Estimated Onset Date: Unspecified ; Created By: SOTERO COLEMAN LPN; Reaction Status: Active ; Category: Drug ; Substance: NKA ; Type: Allergy ; Updated By: SOTERO COLEMAN LPN; Source: Family ; Reviewed Date: 03/04/2012 10:18 DIESEL RETROFIT INSTALLER Source: [facility] POWERCHART Document Id: [id number] documented in this encounter Plan of Treatment Not on filedocumented as of this encounter Procedures Procedure Name Priority Date/Time Associated Diagnosis Comme nts HX UA GLUCOSE POC Routine 03/11/2012 5:00 PM Resu lts for this DIESEL RETROFIT INSTALLER procedure are i n the results section. HX UA APPEAR POC Routine 03/11/2012 5:00 PM Resul ts for this DIESEL RETROFIT INSTALLER procedure are i n the results section. DIPSTICK, POCT, U Routine 03/11/2012 5:00 PM Resu lts for this (DIPC1) DIESEL RETROFIT INSTALLER procedure are i n the results section. DIPSTICK, POCT, U Routine 03/11/2012 5:00 PM Resu lts for this (DIPC1) DIESEL RETROFIT INSTALLER procedure are i n the results section. documented in this encounter Results HX UA GLUCOSE POC (03/11/2012 5:00 PM DIESEL RETROFIT INSTALLER) P athologist Signature Glucose, POCT, Negative POWERCHART U Specimen (Source) Anatomical Collection Method Collection Time Re ceived Time Location / / Volume Laterality 03/11/2012 5:00 PM DIESEL RETROFIT INSTALLER Historical Provider LAB HISTORICAL ORDERS Performing Organization Address City/State/ZIP Code Phon e Number POWERCHART Dipstick, POCT, Urine (lab) (03/11/2012 5:00 PM DIESEL RETROFIT INSTALLER) P athologist Signature Protein, POCT, Negative POWERCHART U Specimen (Source) Anatomical Collection Method Collection Time Re ceived Time Location / / Volume Laterality 03/11/2012 5:00 PM DIESEL RETROFIT INSTALLER Historical Provider LAB POCT ORDERABLES - DEVICE Performing Organization Address City/State/ZIP Code Phon e Number POWERCHART HX UA APPEAR POC (03/11/2012 5:00 PM DIESEL RETROFIT INSTALLER) P athologist Signature Appearance Clear POWERCHART Specimen (Source) Anatomical Collection Method Collection Time Re ceived Time Location / / Volume Laterality 03/11/2012 5:00 PM DIESEL RETROFIT INSTALLER Historical Provider LAB HISTORICAL ORDERS Performing Organization Address City/State/ZIP Code Phon e Number POWERCHART Dipstick, POCT, Urine (lab) (03/11/2012 5:00 PM DIESEL RETROFIT INSTALLER) P athologist Signature Color Yellow POWERCHART Specimen (Source) Anatomical Collection Method Collection Time Re ceived Time Location / / Volume Laterality 03/11/2012 5:00 PM DIESEL RETROFIT INSTALLER Historical Provider LAB POCT ORDERABLES - DEVICE Performing Organization Address [facility] Phon e Number POWERCHART documented in this encounter Visit Diagnoses Not on filedocumented in this encounter Additional Health Concerns Assessment Noted Time PHQ-9 Depression Total Score: 18 06/21/2009 11:24 AM C DT documented as of this encounter
--- OUTSIDE RECORDS SUMMARY | 2022-01-11 09:46 | XMS_ITS | Encounter Summary ---
:1985 Author Organization [facility] Address [address] [place] [address] Care Team Providers Name Role Phone Unavailable Primary Care Provider Unavailable Encounter Details Date Type Department Care Team Description 08/18/2013 Hospital Encounter HX [facility] Gurmeet Robertson Jr., M.D. [address], [place] [phone] (Wo rk) Social History [...] How often do you attend methodist or yarsani Never 01/31/2019 services? Do you [...] Jr., M.D. - 08/18/2013 11:13 AM CDT [id number] CHIEF COMPLAINT/REASON FOR VISIT Follow up for vaginal bleeding during . HISTORY OF PRESENT ILLNESS Wendi is 28-year-old 6, para 2-0-3-2 female at unknown gestational age who presents to the clinic for follow up for vaginal bleeding during . Wendi was seen at [facility] for heavy vaginalbleeding and cramping [...] receive RhoGAM at [facility] 2.5 weeks ago. Possible management [...] will present to [facility] for hysteroscopy with D&C on 08/19/2013. She will returnto the clinic for follow up in 3 weeks. This document serves as a record of services personally performed by Gurmeet Gomez MD. It was created on their behalf by Latanya Murray, a trained medical translator. The creation of this record is based on the scribe's personal observations and the provider's statements to them. This document has been ch ecked and approved by the attending provider. Gurmeet Gomez M.D./dilip Electronically Signed By: GURMEET GOMEZ MD On: 08/18/2013 04:03 PM Source: [facility] MHSDOLBEYNONRADSYS Document Id: [id number] documented in this encounter Miscellaneous Notes Miscellaneous [...] GOMEZ MD - 08/18/2013 12:01 CDT Source: [facility] DVDPlay Document Id: [id number] CDT!6 Miscellaneous - Gurmeet Gomez Jr., M.D. - 08/18/2013 12:00 PM CDT Ambulatory Patient Summary [address] [id number] Visit Information Name: WENDI ODONNELL [facility] Number: [id number] Current Date: 08/18/2013 12:00:49 Physicians [...] at 6 pmon 08/19/13 New Routed to [address] [address] multivitamin, ( Multivitamins with Vitamin B Complex, Vitamin C, Minerals and L-Methylfolate oral capsule) 1 cap, Oral, once a day naproxen (Anaprox-DS 550 mg oral tablet) 1 Tablet(s), Oral, three times a day as needed for pain NewRouted to [address] [address] norgestimate-ethinyl estradiol (Ortho-Cyclen 0.25 mg-35 mcg oral tablet) 1 Tablet(s), Oral, once a day start on 08/20/2013 New Routed to [address] [address] venlafaxine (Effexor 37.5 mg oral tablet) 1 Tablet(s), Oral, two times a day Routed to [address] [address] Stop Taking the Following Medications: fluoxetine (FLUoxetine [...] appointment detail needed. Your Goals/Additional instructions: Source: [facility] POWERCHART Document Id: [id number] Miscellaneous - Gurmeet Gomez Jr., M.D. - 08/18/2013 12:00 PM CDT Ambulatory Discharge Medication List [address] [id number] Visit Information Name: WENDI ODONNELL [facility] Number: [id number] Visit Date: 08/18/2013 12:00:47 Attending [...] at 6 pmon 08/19/13 New Routed to [place] [id number] multivitamin, ( Multivitamins with Vitamin B Complex, Vitamin C, Minerals and L-Methylfolate oral capsule) 1 cap, Oral, once a day naproxen (Anaprox-DS 550 mg oral tablet) 1 Tablet(s), Oral, three times a day as needed for pain NewRouted to [address] [address] norgestimate-ethinyl estradiol (Ortho-Cyclen 0.25 mg-35 mcg oral tablet) 1 Tablet(s), Oral, once a day start on 08/20/2013 New Routed to [address] [address] venlafaxine (Effexor 37.5 mg oral tablet) 1 Tablet(s), Oral, two times a day Routed to [address] [address] Stop Taking the Following Medications: [...] MD Signed On:18-AUG-2013 12:00:44 Additional Information: Source: [facility] POWERCHART Document Id: [id number] Miscellaneous - Chika Napier, RGordonN. - 08/18/2013 11:29 AM CDT Adult Geoscience Specialist Intake/History Adult Geoscience Specialist Intake/History Entered On: 08/18/2013 11:30 CDT Performed [...] 08/18/2013 11:29 CDT General Info Languages : Lao CHIKA LEUNG - 08/18/2013 11:29 CDT Subjective Pain Symptoms : No CHIKA LEUNG - 08/18/2013 11:29 CDT Dependent Habits Tobacco Use/Currently Using : No Smoking Status : Unknown if ever smoke CHIKA LEUNG - 08/18/2013 11:29 CDT Caffeine Use Grid Caffeine Use : Current Type : Energy drinks Frequency : Weekly Amount : 1 CHIKA LEUNG - 08/18/2013 11:29 CDT Source: [facility] Document Id: [id number] CDT!26 documented in this encounter Plan of [...] Received Time / Laterality Volume 08/19/2013 Narrative [facility] - 08/24/19 14 9:56 PM CDT PATIENT IMAGES Choose the Image button to view related documents. Historical Provider LAB SURG PATH ORDERABLES Performing Organization Address City/State/ZIP Code Phon e Number [facility] documented in this encounter Visit Diagnoses Not on filedocumented in this encounter Additional Health Concerns Assessment Noted Time PHQ-9 Depression Total Score: 18 06/21/2009 11:24 AM C DT documented as of this encounter
--- OUTSIDE RECORDS SUMMARY | 2022-01-11 09:46 | XMS_ITS | Encounter Summary ---
:1985 Author Organization [facility] Address [address] [place] [address] Care Team Providers Name Role Phone Unavailable Primary Care Provider Unavailable Encounter Details Date Type Department Care Team Description 03/18/2012 Hospital Encounter HX [facility] Shayne Woody M.D. [address], [place] [phone] (Wo rk) Social History [...] 11/27/2019 relatives? How often do you attend restoration or baptist Never 01/31/2019 services? Do you belong to any clubs or organizations such as No 01/31/2019 restoration groups, unions, fraternal or athletic groups, or [...] at Date Recorded Female 01/11/2018 2:20 PM PARTS PICKER documented as of this encounter Last Filed Vital Signs Vital Sign Reading Time Taken Comments Blood Pressure 112/62 03/18/2012 2:51 PM PARTS PICKER Pulse - - Temperature - - Respiratory Rate - - Oxygen Saturation - - Inhaled Oxygen Concentration - - Weight 62.7 kg (138 lb 3.7 oz) 03/18/2012 2:51 PM PARTS PICKER Height - - Body Mass Index 25.12 02/12/2012 1:41 PM PARTS PICKER documented in this encounter Progress Notes Joy Shannon M.D. - 03/18/2012 2:47 PM CST [id number] CHIEF COMPLAINT/REASON FOR VISIT OB followup HISTORY [...] SHANNON MD On: 03/19/2012 03:28 PM Source: [facility] MHSDOLBEYNONRADSYS Document Id: [id number] S PICKER documented in this encounter Procedure Notes Conversion, Historical Provider Ser - 03/18/2012 2:56 PM CST Urine Dipstick Urine Dipstick Entered On: 03/18/2012 14:56 PARTS PICKER Performed On: 03/18/2012 14:56 PARTS PICKER by LISA, ZURDO A Urine Dipstick UA Color POC : Yellow UA Appear POC : Clear UA Protein POC : Trace UA Glucose POC : Negative ZURDO GONZALEZ - 03/18/2012 14:56 PARTS PICKER Source: [facility] POWERCHART Document Id: [id number] Joy Shannon M.D. - 03/18/2012 12:00 AM [...] SHANNON MD On: 03/19/2012 03:27 PM Source: [facility] MHSDOLBEYNONRADSYS Document Id: [id number] S PICKER documented in this encounter Miscellaneous Notes Miscellaneous - Gertrudis Baltazar R.N. - 03/21/2012 8:39 AM CST Medication Refill Msg Document Contains Addenda Addendum by GERTRUDIS ELLISON on 21 March 2012 10:15:29 PARTS PICKER Called and informed the patient, thanks. Addendum by JOY SHANNON MD on 21 March 2012 09:58:36 PARTS PICKER From: JOY SHANNON MD To: GERTRUDIS ELLISON; Sent: 03/21/2012 09:58:36 PARTS PICKER Subject: RE: Medication Refill Msg She should have 2 more refills of that on the original rx. Addendum by GERTRUDIS ELLISON on 21 March 2012 09:49:53 PARTS PICKER From: GERTRUDIS ELLISON To: JOY SHANNON MD; Sent: 03/21/2012 09:49:53 PARTS PICKER Subject: RE: Medication Refill Msg Pt. stated that she requested the Amoxicillin by accident and she actually meant to request a refillof Vitamins (not on our protocol to fill). Please advise, thank you. Addendum by JOY SHANNON MD on 21 March 2012 09:43:08 PARTS PICKER From: JOY SHANNON MD To: GERTRUDIS ELLISON; Sent: 03/21/2012 09:43:08 PARTS PICKER Subject: RE: Medication Refill Msg I will not refill this rx. The patient's sinusitis should be adequately treated with a 7 day course of antibiotics, which the patient has already had. If her symptoms are still present, she needs to see me. Please inform the patient. From: GERTRUDIS ELLISON To: JOY SHANNON MD; Sent: 03/21/2012 08:39:56 PARTS PICKER Subject: Medication Refill Msg Caller is: ( [...] Call to Pharmacy ( ) Patient will black pickler Script ( ) Mail Rx to Patient Source: [facility] POWERCHART Document Id: [id number] Electronically signed by Komal [facility] Nuclear Medicine Specialist [id number] at 07/12/2016 7:45 PM CDT Joy Sapp M.D. - 03/18/2012 5:22 PM CST Ambulatory [place] [address] Visit Information Name: WENDI ODONNELL [facility] Number: [id number] Visit Date: 03/18/2012 17:22:08 Attending [...] for clarification. Additional Information: Source: [facility] POWERCHART Document Id: [id number] S PICKER Joy Sapp M.D. - 03/18/2012 5:22 PM CST Ambulatory [place] [address] Visit Information Name: WENDI ODONNELL [facility] Number: [id number] Visit Date: 03/18/2012 17:22:09 Attending [...] your provider for clarification. Additional Information: Source: [facility] POWERCHART Document Id: [id number] S PICKER Miscellaneous - Conversion, Historical Provider Ser - 03/18/2012 2:51 PM PARTS PICKER Adult Medical Supply Technician Intake/History Adult Medical Supply Technician Intake/History Entered On: 03/18/2012 14:52 PARTS PICKER Performed On: 03/18/2012 14:51 PARTS PICKER by ZURDO GONZALEZ Intake Chief Complaint : ob visit 38+2 Systolic Blood Pressure : 112mmHg Diastolic Blood Pressure : 62mmHg NIBP Mean : 79mmHg BP Location : Left upper extremity Blood Pressure Cuff Size : Regular Actual Weight : 62.7kg(Converted to: 138lb 4oz) Dosing Weight Clinic : 62.70kg ZURDO GONZALEZ - 03/18/2012 14:51 PARTS PICKER Subjective Pain Symptoms : No ZURDO GONZALEZ - 03/18/2012 14:51 PARTS PICKER Dependent Habits Tobacco Use/Currently Using : No Tobacco Use/Last 12 months : No Smoking Status : Never smoker ZURDO GONZALEZ - 03/18/2012 14:51 PARTS PICKER Caffeine Use Grid Caffeine Use : Current Type : Energy drinks Frequency : Weekly Amount : 1 ZURDO GONZALEZ - 03/18/2012 14:51 PARTS PICKER Allergy Allergies (Active) NKA Estimated Onset Date: Unspecified ; Created By: SOTERO COLEMAN LPN; Reaction Status: Active ; Category: Drug ; Substance: NKA ; Type: Allergy ; Updated By: SOTERO COLEMAN LPN; Source: Family ; Reviewed Date: 03/04/2012 10:18 PARTS PICKER Source: [facility] POWERCHART Document Id: [id number] documented in this encounter Plan of Treatment Not on filedocumented as of this encounter Procedures Procedure Name Priority Date/Time Associated Diagnosis Comme nts HX UA GLUCOSE POC Routine 03/18/2012 2:56 PM Resu lts for this PARTS PICKER procedure are i n the results section. HX UA APPEAR POC Routine 03/18/2012 2:56 PM Resul ts for this PARTS PICKER procedure are i n the results section. DIPSTICK, POCT, U Routine 03/18/2012 2:56 PM Resu lts for this (DIPC1) PARTS PICKER procedure are i n the results section. DIPSTICK, POCT, U Routine 03/18/2012 2:56 PM Resu lts for this (DIPC1) PARTS PICKER procedure are i n the results section. documented in this encounter Results HX UA GLUCOSE POC (03/18/2012 2:56 PM PARTS PICKER) P athologist Signature Glucose, POCT, Negative POWERCHART U Specimen (Source) Anatomical Collection Method Collection Time Re ceived Time Location / / Volume Laterality 03/18/2012 2:56 PM PARTS PICKER Historical Provider LAB HISTORICAL ORDERS Performing Organization Address City/State/ZIP Code Phon e Number POWERCHART Dipstick, POCT, Urine (lab) (03/18/2012 2:56 PM PARTS PICKER) P athologist Signature Protein, POCT, Trace POWERCHART U Specimen (Source) Anatomical Collection Method Collection Time Re ceived Time Location / / Volume Laterality 03/18/2012 2:56 PM PARTS PICKER Historical Provider LAB POCT ORDERABLES - DEVICE Performing Organization Address City/State/ZIP Code Phon e Number POWERCHART HX UA APPEAR POC (03/18/2012 2:56 PM PARTS PICKER) P athologist Signature Appearance Clear POWERCHART Specimen (Source) Anatomical Collection Method Collection Time Re ceived Time Location / / Volume Laterality 03/18/2012 2:56 PM PARTS PICKER Historical Provider LAB HISTORICAL ORDERS Performing Organization Address City/[facility]/ZIP Code Phon e Number POWERCHART Dipstick, POCT, Urine (lab) (03/18/2012 2:56 PM PARTS PICKER) P athologist Signature Color Yellow POWERCHART Specimen (Source) Anatomical Collection Method Collection Time Re ceived Time Location / / Volume Laterality 03/18/2012 2:56 PM PARTS PICKER Historical Provider LAB POCT ORDERABLES - DEVICE Performing Organization Address [facility] Phon e Number POWERCHART documented in this encounter Visit Diagnoses Not on filedocumented in this encounter Additional Health Concerns Assessment Noted Time PHQ-9 Depression Total Score: 18 06/21/2009 11:24 AM C DT documented as of this encounter
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
--- OUTSIDE RECORDS SUMMARY | 2022-01-11 09:46 | XMS_ITS | Encounter Summary ---
:1985 Author Organization [facility] Address [address] [place] [address] Care Team Providers Name Role Phone Unavailable Primary Care Provider Unavailable Encounter Details Date Type Department Care Team Description 12/30/2012 Hospital Encounter HX [facility] Gurmeet Robertson Jr., M.D. [address], [place] [phone] (Wo rk) Social History [...] How often do you attend spiritism or gnosticist Never 01/31/2019 services? 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/2018 2:20 PM FLAVORING OIL FILTERER documented as of this encounter Last Filed Vital Signs Vital Sign Reading Time Taken Comments Blood Pressure 104/62 12/30/2012 3:14 PM FLAVORING OIL FILTERER Pulse 87 12/30/2012 3:14 PM FLAVORING OIL FILTERER Temperature - - Respiratory Rate - - Oxygen Saturation - - Inhaled Oxygen Concentration - - Weight 60.4 kg (133 lb 2.5 oz) 12/30/2012 3:14 PM FLAVORING OIL FILTERER Height - - Body Mass Index 24.19 02/12/2012 1:41 PM FLAVORING OIL FILTERER documented in this encounter Progress Notes Gurmeet Gomez Jr., M.D. - 12/30/2012 3:08 PM CST [id number] CHIEF COMPLAINT/REASON FOR VISIT Back pain and [...] by Latanya Murray, a trained director medical economics. The creation of this record is based on the scribe's personal observations and the provider's statements to them. This document has been ch ecked and approved by the attending provider. Gurmeet Gomez M.D./dilip Electronically Signed By: GURMEET GOMEZ MD On: 01/02/2013 03:16 PM Source: [facility] MHSDOLBEYNONRADSYS Document Id: [id number] ORING OIL FILTERER documented in this encounter Miscellaneous Notes Miscellaneous - Gurmeet Gomez Jr., M.D. - 12/30/2012 3:37 PM CST Ambulatory Patient Summary [facility] [address] [place] [address] Visit Information Name: WENDI ODONNELL [facility] Number: [id number] Current Date: 12/30/2012 15:37:39 [...] appointment detail needed. Your Goals/Additional instructions: Source: [facility] POWERCHART Document Id: [id number] ORING OIL FILTERER Miscellaneous - Gurmeet Gomez Jr., M.D. - 12/30/2012 3:37 PM CST [place] [address] Visit Information Name: WENDI ODONNELL [facility] Number: [id number] Visit Date: 12/30/2012 15:37:38 [...] your provider for clarification. Additional Information: Source: [facility] [employer] Document Id: [id number] ORING OIL FILTERER Miscellaneous - Chika Napier RGordonNGordon - 12/30/2012 3:14 PM CST Adult Ergonomic Specialist Intake/History Adult Ergonomic Specialist Intake/History Entered On: 12/30/2012 15:16 FLAVORING OIL FILTERER Performed On: 12/30/2012 15:14 FLAVORING OIL FILTERER by CHIKA LEUNG Intake Chief Complaint : [...] 60.4 kg CHIKA LEUNG - 12/30/2012 15:14 FLAVORING OIL FILTERER General Info Languages : Swazi CHIKA LEUNG - 12/30/2012 15:14 FLAVORING OIL FILTERER Subjective Pain Symptoms : No CHIKA LEUNG - 12/30/2012 15:14 FLAVORING OIL FILTERER Dependent Habits Tobacco Use/Currently Using : No Smoking Status : Unknown if ever smoke CHIKA LEUNG - 12/30/2012 15:14 FLAVORING OIL FILTERER Caffeine Use Grid Caffeine Use : Current Type : Energy drinks Frequency : Weekly Amount : 1 CHIKA LEUNG - 12/30/2012 15:14 FLAVORING OIL FILTERER [facility] [employer] Document Id: [id number] FLAVORING OIL FILTERER!25 ORING OIL FILTERER documented in this encounter Plan of Treatment Not on filedocumented as of this encounter Visit Diagnoses Not on filedocumented in this encounter Additional Health Concerns Assessment Noted Time PHQ-9 Depression Total Score: 18 06/21/2009 11:24 AM C DT documented as of this encounter
--- OUTSIDE RECORDS SUMMARY | 2022-01-11 09:46 | XMS_ITS | Encounter Summary ---
:1985 Author Organization [facility] Address [address] [place] [address] Care Team Providers Name Role Phone Unavailable Primary Care Provider Unavailable Encounter Details Date Type Department Care Team Description 03/14/2012 Hospital Encounter HX [facility] Shayne Woody M.D. [address], [place] [phone] (Wo rk) Social History [...] How often do you attend samaritan or yazidism Never 01/31/2019 services? 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/2018 2:20 PM PLATER PRODUCTION documented as of this encounter Last Filed Vital Signs Vital Sign Reading Time Taken Comments Blood Pressure 124/68 03/14/2012 5:26 PM PLATER PRODUCTION Pulse - - Temperature - - Respiratory Rate - - Oxygen Saturation - - Inhaled Oxygen Concentration - - Weight 62.4 kg (137 lb 9.1 oz) 03/14/2012 5:26 PM PLATER PRODUCTION Height - - Body Mass Index 25 02/12/2012 1:41 PM PLATER PRODUCTION documented in this encounter Progress Notes Emym Shannon M.D. - 03/14/2012 5:23 PM CST [id number] CHIEF COMPLAINT/REASON FOR VISIT Severe headache in [...] by Gricel Ron, a trained medical lab specialist. The creation of this record is based on the scribe's personal observations and the provider's statements to them. This document has been checked and approved by the attending provider. Emmy Shannon M.D./yasemin Electronically Signed By: EMMY SHANNON MD On: 03/15/2012 08:58 AM Modified by and Electronically Signed by: EMMY SHANNON MD On: 03/15/2012 08:58 AM [facility] MHSDOLBEYNONRADSYS Document Id: [id number] ER PRODUCTION documented in this encounter Procedure Notes Conversion, Historical Provider Ser - 03/14/2012 5:36 PM CST Urine Dipstick Urine Dipstick Entered On: 03/14/2012 17:36 PLATER PRODUCTION Performed On: 03/14/2012 17:36 PLATER PRODUCTION by ZURDO GONZALEZ Urine Dipstick UA Color POC : Yellow UA Appear POC : Clear UA Protein POC : Trace UA Glucose POC : Negative ZURDO GONZALEZ - 03/14/2012 17:36 PLATER PRODUCTION Source: [facility] POWERCHART Document Id: [id number] Emmy Shannon M.D. - 03/14/2012 12:00 AM [...] SHANNON MD On: 03/15/2012 08:52 AM Source: [facility] MHSDOLBEYNONRADSYS Document Id: [id number] ER PRODUCTION documented in this encounter Miscellaneous Notes Miscellaneous - Emmy Shannon M.D. - 03/14/2012 7:03 PM CST Ambulatory Patient Summary [facility] [address] [place] [address] Visit Information Name: WENDI ODONNELL [facility] Number: [id number] Visit Date: 03/14/2012 19:03:12 Attending [...] your provider for clarification. Additional Information: Source: [facility] POWERCHART Document Id: [id number] ER PRODUCTION Miscellaneous - Emmy Shannon M.D. - 03/14/2012 7:03 PM CST [place] [address] Visit Information Name: CATHERINE WENDI LUIS [facility] Number: [id number] Visit Date: 03/14/2012 19:03:11 Attending [...] your provider for clarification. Additional Information: Source: [facility] POWERCHART Document Id: [id number] ER PRODUCTION Miscellaneous - Conversion, Historical Provider Ser - 03/14/2012 5:26 PM PLATER PRODUCTION Adult Telegraph Service Rater Intake/History Adult Telegraph Service Rater Intake/History Entered On: 03/14/2012 17:28 PLATER PRODUCTION Performed On: 03/14/2012 17:26 PLATER PRODUCTION by ZURDO GONZALEZ Chief Complaint : ob visit 37+5 LMP Date : 06-24-11 Systolic Blood Pressure : 124mmHg Diastolic Blood Pressure : 68mmHg NIBP Mean : 87mmHg BP Location : Right upper extremity Blood Pressure Cuff Size : Regular Actual Weight : 62.4kg(Converted to: 137lb 9oz) Dosing Weight Clinic : 62.40kg ZURDO GONZALEZ - 03/14/2012 17:26 PLATER PRODUCTION Subjective Pain Symptoms : No ZURDO GONZALEZ - 03/14/2012 17:26 PLATER PRODUCTION Dependent Habits Tobacco Use/Currently Using : No Tobacco Use/Last 12 months : No Smoking Status : Never smoker ZURDO GONZALEZ - 03/14/2012 17:26 PLATER PRODUCTION Caffeine Use Grid Caffeine Use : Current Type : Energy drinks Frequency : Weekly Amount : 1 ZURDO GONZALEZ - 03/14/2012 17:26 PLATER PRODUCTION Allergy Allergies (Active) NKA Estimated Onset Date: Unspecified ; Created By: SOTERO COLEMAN LPN; Reaction Status: Active ; Category: Drug ; Substance: NKA ; Type: Allergy ; Updated By: SOTERO COLEMAN LPN; Source: Family ; Reviewed Date: 03/04/2012 10:18 PLATER PRODUCTION Source: [employer] POWERCHART Document Id: [id number] documented in this encounter Plan of Treatment Not on filedocumented as of this encounter Procedures Procedure Name Priority Date/Time Associated Diagnosis Comme nts HX UA GLUCOSE POC Routine 03/14/2012 5:36 PM Resu lts for this PLATER PRODUCTION procedure are i n the results section. HX UA APPEAR POC Routine 03/14/2012 5:36 PM Resul ts for this PLATER PRODUCTION procedure are i n the results section. DIPSTICK, POCT, U Routine 03/14/2012 5:36 PM Resu lts for this (DIPC1) PLATER PRODUCTION procedure are i n the results section. DIPSTICK, POCT, U Routine 03/14/2012 5:36 PM Resu lts for this (DIPC1) PLATER PRODUCTION procedure are i n the results section. documented in this encounter Results HX UA GLUCOSE POC (03/14/2012 5:36 PM PLATER PRODUCTION) P athologist Signature Glucose, POCT, Negative POWERCHART U Specimen (Source) Anatomical Collection Method Collection Time Re ceived Time Location / / Volume Laterality 03/14/2012 5:36 PM PLATER PRODUCTION Historical Provider LAB HISTORICAL ORDERS Performing Organization Address City/[facility]/ZIP Code Phon e Number POWERCHART Dipstick, POCT, Urine (lab) (03/14/2012 5:36 PM PLATER PRODUCTION) P athologist Signature Protein, POCT, Trace POWERCHART U Specimen (Source) Anatomical Collection Method Collection Time Re ceived Time Location / / Volume Laterality 03/14/2012 5:36 PM PLATER PRODUCTION Historical Provider LAB POCT ORDERABLES - DEVICE Performing Organization Address [facility] Phon e Number POWERCHART HX UA APPEAR POC (03/14/2012 5:36 PM PLATER PRODUCTION) P athologist Signature Appearance Clear POWERCHART Specimen (Source) Anatomical Collection Method Collection Time Re ceived Time Location / / Volume Laterality 03/14/2012 5:36 PM PLATER PRODUCTION Historical Provider LAB HISTORICAL ORDERS Performing Organization Address [facility] Phon e Number POWERCHART Dipstick, POCT, Urine (lab) (03/14/2012 5:36 PM PLATER PRODUCTION) P athologist Signature Color Yellow POWERCHART Specimen (Source) Anatomical Collection Method Collection Time Re ceived Time Location / / Volume Laterality 03/14/2012 5:36 PM PLATER PRODUCTION Historical Provider LAB POCT ORDERABLES - DEVICE Performing Organization Address [facility] Phon e Number POWERCHART documented in this encounter Visit Diagnoses Not on filedocumented in this encounter Additional Health Concerns Assessment Noted Time PHQ-9 Depression Total Score: 18 06/21/2009 11:24 AM C DT documented as of this encounter
--- OUTSIDE RECORDS SUMMARY | 2022-01-11 09:46 | XMS_ITS | Encounter Summary ---
:1985 Author Organization [facility] Address [address] [place] [address] Care Team Providers Name Role Phone Unavailable Primary Care Provider Unavailable Encounter Details Date Type Department Care Team Description 12/25/2014 Hospital Encounter HX [facility] Michael Alberts A PRN, C.N.P. [address] [place], [place] [phone] (Wo rk) Social History [...] How often do you attend protestant or muslim Never 01/31/2019 services? 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/2018 2:20 PM CONVEYOR MAINTENANCE MECHANIC documented as of this encounter Last Filed Vital Signs Vital Sign Reading Time Taken Comments Blood Pressure - - Pulse - - Temperature - - Respiratory Rate - - Oxygen Saturation - - Inhaled Oxygen Concentration - - Weight - - Height 162 cm (5' 3.78) 12/25/2014 9:22 AM CONVEYOR MAINTENANCE MECHANIC Body Mass Index - - documented in this encounter Miscellaneous Notes Miscellaneous - Michael Alberts, TATY, C.N.P. - 12/28/2014 8:08 AM CST Normal Results Letter 28 December 2014 WENDI ALEXANDER [id number] [facility] [place] [phone] Dear WENDI ALEXANDER, I am pleased to [...] 150 - 450 Sincerely, MICHAEL ALBERTS [address] [place] [address] Electronic Signature Electronically Signed By: MICHAEL ALBERTS [facility] On: 28 December 2014 This document has images extracted. Source: [facility] POWERCHART Document Id: [id number] documented in this encounter Plan of Treatment Not on filedocumented as of this encounter Procedures Procedure Name Priority Date/Time Associated Diagnosis Comme nts LIPID PANEL, S Routine 12/25/2014 10:12 AM Result s for this CONVEYOR MAINTENANCE MECHANIC procedure are i n the results section. CBC WITHOUT Routine 12/25/2014 10:12 AM Results for this DIFFERENTIAL, B CONVEYOR MAINTENANCE MECHANIC procedure ar e in the results section. THYROID-STIMULATING Routine 12/25/2014 10:12 AM R esults for this HORMONE-SENSITIVE CONVEYOR MAINTENANCE MECHANIC procedure are in (S-TSH) the results section. documented in this encounter Results CBC without Differential (12/25/2014 10:12 AM CONVEYOR MAINTENANCE MECHANIC) athologist Signature Leukocytes 4.6 3.4 - 10.5 POWERCHART X109L Erythrocytes 4.52 3.90 - 5.03 POWERCHART J6089C Hemoglobin 13.3 12.0 - 15.5 POWERCHART GDL Hematocrit 39.7 34.9 - 44.5 POWERCHART MCV 87.8 82.0 - 98.0 POWERCHART FL Platelet Count 222 150 - 450 POWERCHART X109L HX RDW 12.3 11.9 - 15.5 POWERCHART Specimen (Source) Anatomical Collection Method Collection Time Re ceived Time Location / / Volume Laterality Blood 12/25/2014 10:12 AM CONVEYOR MAINTENANCE MECHANIC Michael Alberts APRN, C.N.P. LAB BLOOD ADD-ON Performing Organization Address City/State/ZIP Code Phon e Number POWERCHART Thyroid-Stimulating Hormone-Sensitive (s-TSH) (12/25/2014 10:12 AM CONVEYOR MAINTENANCE MECHANIC) athologist Signature TSH 1.58 0.27 - 4.20 POWERCHART (Thyrotropin) MIUL Specimen (Source) Anatomical Collection Method Collection Time Re ceived Time Location / / Volume Laterality Blood 12/25/2014 10:12 AM CONVEYOR MAINTENANCE MECHANIC Michael Alberts APRN, C.N.P. LAB BLOOD ADD-ON Performing Organization Address City/State/ZIP Code Phon e Number POWERCHART (ABNORMAL) Lipid Panel (12/25/2014 10:12 AM CONVEYOR MAINTENANCE MECHANIC) athologist Signature Calculated LDL 119 <=129 MGDL [...] FH and FDB is available lisbeth ramirez [facility]: FH/ADH Genetic Reflex Kaur el (test ADHP). Acquired (non-genetic) causes of markedly increased LDL cholesterol include cholestatic liver disease due to the presence of LpX. If a genetic form of hypercholesterolemia is suspected, family studies including biochemical testing fo r lipids (total cholesterol,triglycerides, LDL cholesterol and HDL cholesterol) are recommended. ??Please contact the laboratory at or the on-line test catalog at [employer] [facility] [employer] [facility] for information about how to order these [...] / Volume Laterality Blood 12/25/2014 10:12 AM CONVEYOR MAINTENANCE MECHANIC Michael Alberts APRN, C.N.P. LAB BLOOD ADD-ON Performing Organization Address City/State/ZIP Code Phon e Number POWERCHART documented in this encounter Visit Diagnoses Not on filedocumented in this encounter Additional Health Concerns Assessment Noted Time PHQ-9 Depression Total Score: 18 12/24/2014 2:32 PM CS T documented as of this encounter
--- OUTSIDE RECORDS SUMMARY | 2022-01-11 09:46 | XMS_ITS | Encounter Summary ---
:1985 Author Organization [facility] Address [address] [place] [address] Care Team Providers Name Role Phone Unavailable Primary Care Provider Unavailable Encounter Details Date Type Department Care Team Description 12/25/2014 Hospital Encounter [facility]X [facility] Kandi Alberts A PRN, C.N.P. [address] [place], [place] [phone] (Wo rk) Social History [...] How often do you attend mandaen or quaker Never 01/31/2019 services? 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/2018 2:20 PM DREDGE CAPTAIN documented as of this encounter Last Filed Vital Signs Vital Sign Reading Time Taken Comments Blood Pressure - - Pulse - - Temperature - - Respiratory Rate - - Oxygen Saturation - - Inhaled Oxygen Concentration - - Weight - - Height 162 cm (5' 3.78) 12/25/2014 9:22 AM DREDGE CAPTAIN Body Mass Index - - documented in this encounter Plan of Treatment Not on filedocumented as of this encounter Procedures Procedure Name Priority Date/Time Associated Comments Diagnosis COMPREHENSIVE Routine 12/25/2014 10:12 Results fo r this METABOLIC PANEL, S/P AM DREDGE CAPTAIN procedu re are in the results section. documented in this encounter Results (ABNORMAL) CMP (Comprehensive Metabolic Panel) (12/25/2014 10:12 AM DREDGE CAPTAIN) [facility] gist Method Time Signature Alkaline 61 [...] POWERCHART GDL HXeGFR (MDRD) >60 >=60 POWERCHART [id number] 2 eGFR Black/ >60 >=60 POWERCHART Polish [id number] Specimen (Source) Anatomical Collection Method Collection Time Re ceived Time Location / / Volume Laterality Blood 12/25/2014 10:12 AM DREDGE CAPTAIN Kandi Alberts APRN, C.N.P. LAB BLOOD ADD-ON Performing Organization Address City/State/ZIP Code Phon e Number POWERCHART documented in this encounter Visit Diagnoses Not on filedocumented in this encounter Additional Health Concerns Assessment Noted Time PHQ-9 Depression Total Score: 18 12/24/2014 2:32 PM CS T documented as of this encounter
--- OUTSIDE RECORDS SUMMARY | 2022-01-11 09:46 | XMS_ITS | Encounter Summary ---
:1985 Author Organization [facility] Address [address] [place] [address] Care Team Providers Name Role Phone Unavailable Primary Care Provider Unavailable Encounter Details Date Type Department Care Team Description 03/22/2012 Hospital Encounter HX [facility] Shayne Woody M.D. [address], [place] [phone] (Wo rk) Social History [...] How often do you attend latter-day or protestant Never 01/31/2019 services? Do you [...] Date Recorded Female 01/11/2018 2:20 PM ASSOCIATE DIRECTOR FINANCIAL AID documented as of this encounter Last Filed Vital Signs Vital Sign Reading Time Taken Comments Blood Pressure 120/78 03/22/2012 4:55 PM ASSOCIATE DIRECTOR FINANCIAL AID Pulse - - Temperature - - Respiratory Rate - - Oxygen Saturation - - Inhaled Oxygen Concentration - - Weight 62.8 kg (138 lb 7.2 oz) 03/22/2012 4:55 PM ASSOCIATE DIRECTOR FINANCIAL AID Height - - Body Mass Index 25.16 02/12/2012 1:41 PM ASSOCIATE DIRECTOR FINANCIAL AID documented in this encounter Progress Notes Emmy Shannon M.D. - 03/22/2012 4:43 PM CST [id number] Non stress test Patient name :Wendi Odonnell Date of service: 03/22/12 Gestational age: 38 and 6 weeks Diagnosis: Decreased movement Indication for test: Decreased movement Non stress test shows heart rate baseline of 150bpm, moderate variability, no decelerations. Interpretation is reactive / reassuring with good variability and accelerations Follow up in 1 week for OB check Emmy Shannon M.D./yasemin DOCID: [id number] Electronically Signed By: EMMY SHANNON MD On: 03/22/2012 05:51 PM Source: [facility] MHSDOLBEYNONRADSYS Document Id: [id number] CIATE DIRECTOR FINANCIAL AID documented in this encounter Consult Notes Emmy Shannon M.D. - 03/22/2012 4:43 PM CST [id number] CHIEF COMPLAINT/REASON FOR VISIT OB followup HISTORY [...] behalf by Gricel Ron, a trained medical records coordinator. The creation of this record is based on the scribe's personal observations and the provider's statements to them. This document has been checked and approved by the attending provider. Emmy Shannon M.D./yasemin DOCID: [id number] Electronically Signed By: EMMY SHANNON MD On: 03/22/2012 05:51 PM Source: [facility] MHSDOLBEYNONRADSYS Document Id: [id number] CIATE DIRECTOR FINANCIAL AID documented in this encounter Miscellaneous Notes Miscellaneous - Emmy Shannon M.D. - 03/22/2012 5:50 PM CST Ambulatory [place] [address] Visit Information Name: WENDI ODONNELL [facility] Number: [id number] Visit Date: 03/22/2012 [...] your provider for clarification. Additional Information: Source: [facility] POWERCHART Document Id: [id number] CIATE DIRECTOR FINANCIAL AID Miscellaneous - Emmy Shannon M.D. - 03/22/2012 5:50 PM CST Ambulatory [place] [address] Visit Information Name: WENDI ODONNELL [facility] Number: [id number] Visit Date: 03/22/2012 [...] your provider for clarification. Additional Information: Source: [facility] POWERCHART Document Id: [id number] CIATE DIRECTOR FINANCIAL AID Miscellaneous - Conversion, Historical Provider Ser - 03/22/2012 4:55 PM ASSOCIATE DIRECTOR FINANCIAL AID Adult Gamma Facilities Operator Intake/History Adult Gamma Facilities Operator Intake/History Entered On: 03/22/2012 16:56 ASSOCIATE DIRECTOR FINANCIAL AID Performed On: 03/22/2012 16:55 ASSOCIATE DIRECTOR FINANCIAL AID by ZURDO GONZALEZ Intake Chief Complaint : ob visit 38+6 LMP Date : 06-24-11 Systolic Blood Pressure : 120mmHg Diastolic Blood Pressure : 78mmHg NIBP Mean : 92mmHg BP Location : Right upper extremity Blood Pressure Cuff Size : Regular Actual Weight : 62.8kg(Converted to: 138lb 7oz) Dosing Weight Clinic : 62.80kg ZURDO GONZALEZ 03/22/2012 16:55 ASSOCIATE DIRECTOR FINANCIAL AID General Info Information Given By : Patient Languages : Spanish ZURDO GONZALEZ 03/22/2012 16:55 ASSOCIATE DIRECTOR FINANCIAL AID Subjective Pain Symptoms : No ZURDO GONZALEZ 03/22/2012 16:55 ASSOCIATE DIRECTOR FINANCIAL AID Dependent Habits Tobacco Use/Currently Using : No Tobacco Use/Last 12 months : No Smoking Status : Never smoker ZURDO GONZALEZ 03/22/2012 16:55 ASSOCIATE DIRECTOR FINANCIAL AID Caffeine Use Grid Caffeine Use : Current Type : Energy drinks Frequency : Weekly Amount : 1 ZURDO GONZALEZ 03/22/2012 16:55 ASSOCIATE DIRECTOR FINANCIAL AID Allergy Allergies (Active) NKA Estimated Onset Date: Unspecified ; Created By: SOTERO COLEMAN LPN; Reaction Status: Active ; Category: Drug ; Substance: NKA ; Type: Allergy ; Updated By: SOTERO COLEMAN LPN; Source: Family ; Reviewed Date: 03/04/2012 10:18 ASSOCIATE DIRECTOR FINANCIAL AID Source: [facility] POWERCHART Document Id: [id number] documented in this encounter Plan of Treatment Not on filedocumented as of this encounter Visit Diagnoses Not on filedocumented in this encounter Additional Health Concerns Assessment Noted Time PHQ-9 Depression Total Score: 18 06/21/2009 11:24 AM C DT documented as of this encounter
--- OUTSIDE RECORDS SUMMARY | 2022-01-11 09:46 | XMS_ITS | Encounter Summary ---
:1985 Author Organization [facility] Address [address] [place] [address] Care Team Providers Name Role Phone Unavailable Primary Care Provider Unavailable Encounter Details Date Type Department Care Team Description 07/14/2015 Hospital Encounter HX NO MAPPING Kandi Alberts, TATY, C.N.P. [address] [place], [place] [phone] (Wo rk) Social History [...] How often do you attend taoist or hinduism Never 01/31/2019 services? 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/2018 2:20 PM SUPPLIER ENGINEER documented as of this encounter Miscellaneous Notes Miscellaneous - Conversion, Historical Provider Ser - 07/14/2015 11:59 PM CDT Coding Summary-Paper Based CODING DATE: 07/27/2015 FINAL [facility] STATUS: * Discharged to Home or [...] [place] Date Saved: 07/27/2015 04:23 pm Source: Megathread Document Id: [id number] documented in this encounter Plan of Treatment Not on filedocumented as of this encounter Visit Diagnoses Not on filedocumented in this encounter Additional Health Concerns Assessment Noted Time PHQ-9 Depression Total Score: 19 01/20/2015 2:44 PM CS T documented as of this encounter
--- OUTSIDE RECORDS SUMMARY | 2022-01-11 09:46 | XMS_ITS | Encounter Summary ---
:1985 Author Organization [facility] Address [address] [place] [address] Care Team Providers Name Role Phone Unavailable Primary Care Provider Unavailable Encounter Details Date Type Department Care Team Description 12/24/2014 Hospital Encounter HX [facility] Michelle Hankins, TATY, C.N.P. [address] [place] [address] (Wo rk) Social History Tobacco [...] How often do you attend judaism or synagogue Never 01/31/2019 services? 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/2018 2:20 PM BLACK TOP MACHINE OPERATOR documented as of this encounter Last Filed Vital Signs Vital Sign Reading Time Taken Comments Blood Pressure 114/74 12/24/2014 2:12 PM BLACK TOP MACHINE OPERATOR Pulse 80 12/24/2014 2:12 PM BLACK TOP MACHINE OPERATOR Temperature - - Respiratory Rate 16 12/24/2014 2:12 PM BLACK TOP MACHINE OPERATOR Oxygen Saturation - - Inhaled Oxygen Concentration - - Weight 63.5 kg (139 lb 15.9 oz) 12/24/2014 2:12 PM BLACK TOP MACHINE OPERATOR Height 162 cm (5' 3.78) 12/24/2014 2:12 PM BLACK TOP MACHINE OPERATOR Body Mass Index 24.2 12/24/2014 2:12 PM BLACK TOP MACHINE OPERATOR documented in this encounter Progress Notes Michael Hankins, TATY, Leti. - 12/24/2014 1:53 PM CST [id number] CHIEF COMPLAINT/REASON FOR VISIT 1. Depression. 2. Fatigue. HISTORY OF PRESENT ILLNESS This is Wendi's 1st visit back at [facility] in [place] in over a year. She has been getting care at [facility] in [place]. She states she has depression, she feels extremely tired, she does not want to get out of bed, she is overeating, she has little interest or pleasure in doing things. She is having difficult time concentrating. She just started a new job at the [employer], she is working nights, yesterday was her first day. She denies any desire to harm herselfor others. She is currently on Effexor 37.5 mg 1 daily. She does not feel it is helping. She has chronic low back pain. She sees Dr. Jacobsen in [place]. She takes naproxen and gabapentin for her [...] nontender. No hepatosplenomegaly. GENITOURINARY: Bartholin's, urethral and [place]'s, vagina and cervix are without lesion. ThinPrep [...] HANKINS CNP On: 12/28/2014 07:47 AM Source: [facility] MHSDOLBEYNONRADSYS Document Id: [id number] K TOP MACHINE OPERATOR documented in this encounter Nursing [...] medications. Your doctor can tell you more. [place] If you have bipolar disorder, you may take a medication called lithium. This medication helps even out your mood. Possible side effects are weight gain, trembling, and nausea. If You Are Taking MAOIs, Avoid: Beans Aged cheese Chocolate Red wine Most cold medications Certain medications (ask your doctor) To Reduce the Risk of [place] Poisoning: Take only the prescribed amount of lithium. Drink plenty offluids other than coffee, tea, and soda. Limit salt in your diet. If You Have Side Effects The side effects of antidepressants are usually mild. But if you have troubling side effects, call your doctor. Changing the dosage or type of medication may help. Never stop taking medications on yourown. ?? [id number] Kyle Kenny, [address] [place] [address], [place] [address]. All rights reserved. This information is not intended as a substitute for professional medical care. Always follow your healthcare professional's instructions. This document has images extracted. Please consider using [employer] for all your patient education needs. Source: [facility] Document Id: [id number] K TOP MACHINE OPERATOR documented in this encounter Miscellaneous Notes Miscellaneous - Michael Hankins APRN, C.N.P. - 01/04/2015 1:55 PM CST Custom Result Letter 04 January 2015 WENDI ALEXANDER [id number] [facility] [id number] Dear WENDI ALEXANDER, I am happy to inform you that your recent Pap smear has been read as normal or negative. This is very reassuring. I would recommend following up with your next Pap smear in three years. Result Name Current Result NETWORK DESIGN ARCHITECT Cytology. 12/24/2014 Sincerely, MICHAEL HANKINS [address] [place] [address] Electronic Signature Electronically Signed By: MICHAEL HANKINS CNP On: 04 January 2015 This document has images extracted. Source: [facility] [employer] Document Id: [id number] Miscellaneous - Thais Yi L.P.N. - 12/24/2014 2:35 PM CST Health Assessment Health Assessment Entered On: 12/24/2014 14:38 BLACK TOP MACHINE OPERATOR Performed On: 12/24/2014 14:35 BLACK TOP MACHINE OPERATOR by THAIS YI LPN Health Assessment Complete Health Assessment Complete or Modified : Annual Health Assessment Annual Health Assessment Completed : Yes THAIS YI LPN - 12/24/2014 14:35 BLACK TOP MACHINE OPERATOR Nutrition Nutrition Risk Factors by History Adult : None THAIS YI LPN - 12/24/2014 14:35 BLACK TOP MACHINE OPERATOR Functional Current Daily Living Assistance : None THAIS YI LPN - 12/24/2014 14:35 BLACK TOP MACHINE OPERATOR Dependent Habits Tobacco Use/Currently Using : No Tobacco Use/Last 12 months : No Exposure to Tobacco Smoke : Other: Never Smoking Status : Never smoker Alcohol Use : Yes THAIS YI LPN - 12/24/2014 14:35 BLACK TOP MACHINE OPERATOR Caffeine Use Grid Caffeine Use : Current Type : Energy drinks Frequency : Weekly Amount : 1 THAIS YI LPN - 12/24/2014 14:35 BLACK TOP MACHINE OPERATOR AUDIT Tool How Often Do [...] 8 THAIS YI LPN - 12/24/2014 14:35 BLACK TOP MACHINE OPERATOR Psychosocial Domestic Abuse Concerns : None Behavioral Health Screen/Safety Assmt : No Jain Preference : No qualifying data available. THAIS YI LPN - 12/24/2014 14:35 BLACK TOP MACHINE OPERATOR Advance Directive Advanced Directives : No Advance Directive Additional Information : No THAIS YI LPN - 12/24/2014 14:35 BLACK TOP MACHINE OPERATOR Educ Needs Learning Style Preference Adult Grid Patient : Printed materials, Verbal explanation Family : Verbal explanation, Printed materials THAIS YI LPN - 12/24/2014 14:35 BLACK TOP MACHINE OPERATOR Source: [facility] POWERCHART Document Id: [id number] BLACK TOP MACHINE OPERATOR!45 K TOP MACHINE OPERATOR Miscellaneous - Thais Yi, L.P.N. - 12/24/2014 2:32 PM CST PHQ-9 PHQ-9 Entered On: 12/24/2014 14:33 BLACK TOP MACHINE OPERATOR Performed On: 12/24/2014 14:32 BLACK TOP MACHINE OPERATOR by THAIS YI LPN PHQ-9 [...] difficult THAIS YI LPN - 12/24/2014 14:32 BLACK TOP MACHINE OPERATOR Source: [facility] [employer] Document Id: [id number] BLACK TOP MACHINE OPERATOR!13 K TOP MACHINE OPERATOR Miscellaneous - Michael Hankins APRN, C.N.P. - 12/24/2014 2:27 PM CST Ambulatory Patient Summary [address] [id number] Visit Information Name: CATHERINE WENDI LUIS [facility] Number: [id number] Current Date: 12/24/2014 [...] day This is a CHANGE Routed to [address] [address] Stop Taking the Following Medications: Medication list [...] medications. Your doctor can tell you more. [place] If you have bipolar disorder, you may take a medication called lithium. This medication helps even out your mood. Possible side effects are weight gain, trembling, and nausea. If You Are Taking MAOIs, Avoid: Beans Aged cheese Chocolate Red wine Most cold medications Certain medications (ask your doctor) To Reduce the Risk of [place] Poisoning: Take only the prescribed amount of lithium. Drink plenty offluids other than coffee, tea, and soda. Limit salt in your diet. If You Have Side Effects The side effects of antidepressants are usually mild. But if you have troubling side effects, call your doctor. Changing the dosage or type of medication may help. Never stop taking medications on yourown. ?? [phone] [facility], [address] [place] [address], [place] [address]. All rights reserved. This information is not [...] if you dont have one. Go to [email or web address] and click on Create Your Account. Then, follow the directions to complete the online form. Youll be asked for your [facility] number which you can find at the top of this document. Your Goals/Additional instructions: This document has images extracted. Please consider using [employer] for all your patient education needs. Source: [facility] POWERCHART Document Id: [id number] K TOP MACHINE OPERATOR Miscellaneous - Michael Hankins APRN, C.N.P. - 12/24/2014 2:27 PM CST Ambulatory Discharge Medication List [address] [id number] Visit Information Name: WENDI ALEXANDER [facility] Number: [id number] Visit Date: 12/24/2014 [...] day This is a [place] [address] Stop Taking the Following Medications: Medication list [...] CNP Signed On:24-DEC-2014 14:27:37 Additional Information: Source: [facility] POWERCHART Document Id: [id number] K TOP MACHINE OPERATOR Miscellaneous - Thais Yi L.P.N. - 12/24/2014 2:12 PM CST Adult Operational Communication Chief Intake/History Adult Operational Communication Chief Intake/History Entered On: 12/24/2014 14:15 BLACK TOP MACHINE OPERATOR Performed On: 12/24/2014 14:12 BLACK TOP MACHINE OPERATOR by THAIS YI LPN Intake [...] kg/m2 THAIS YI LPN - 12/24/2014 14:12 BLACK TOP MACHINE OPERATOR General Info Information Given By : Patient Preferred Communication Mode : Verbal Languages : Chinese Is Patient Female and 13-50 no hysterectomy : Yes Status : Patient denies Are you ? : No THAIS YI LPN - 12/24/2014 14:12 BLACK TOP MACHINE OPERATOR Subjective Pain Symptoms : No THAIS YI LPN - 12/24/2014 14:12 BLACK TOP MACHINE OPERATOR Dependent Habits Tobacco Use/Currently Using : No Tobacco Use/Last 12 months : No Exposure to Tobacco Smoke : Other: Never Smoking Status : Never smoker THAIS YI LPN - 12/24/2014 14:12 BLACK TOP MACHINE OPERATOR Caffeine Use Grid Caffeine Use : Current Type : Energy drinks Frequency : Weekly Amount : 1 THAIS YI LPN - 12/24/2014 14:12 BLACK TOP MACHINE OPERATOR Source: [employer] POWERCHART Document Id: [id number] BLACK TOP MACHINE OPERATOR!38 K TOP MACHINE OPERATOR documented in this encounter Plan of Treatment Not on filedocumented as of this encounter Procedures Procedure Name Priority Date/Time Associated Diagnosis Comme nts PATHOLOGY NETWORK DESIGN ARCHITECT Routine 12/24/2014 12:00 AM Results for this CYTOLOGY BLACK TOP MACHINE OPERATOR procedure are i n the results section. documented in this encounter Results Pathology NETWORK DESIGN ARCHITECT Cytology (12/24/2014 12:00 AM BLACK TOP MACHINE OPERATOR) Specimen (Source) Anatomical Location Collection Method / Collectio n Time Received Time / Laterality Volume 12/24/2014 Narrative [facility] LAB - 01/04/2015 1:36 PM BLACK TOP MACHINE OPERATOR [facility] in [place] [address] [place], [place] ??[address] Patient Name: WENDI ALEXANDER Patient ID #: [id number] Collected: 12/24/2014 Address: [facility]/State/Zip: [address] [place], [place] ??[id number] Received: Reported: 12/28/2014 01/04/2015 Soc. Sec. #: ?/Age/Sex 1985 (Age: 29) ??F Physician(s): BECKY HANKINS CNP Copy To: ? [facility] ??[id number] [address] [facility], ??[place] ??[address] CYTOPATHOLOGY NETWORK DESIGN ARCHITECT REPORT FINAL CYTOLOGIC DIAGNOSIS Pap Smear - [...]
--- OUTSIDE RECORDS SUMMARY | 2022-01-11 09:46 | XMS_ITS | Encounter Summary ---
:1985 Author Organization [facility] Address [address] [place] [address] Care Team Providers Name Role Phone Unavailable Primary Care Provider Unavailable Encounter Details Date Type Department Care Team Description 03/26/2012 Hospital Encounter HX NO MAPPING Jef Casiano Jr., M.D. [address] [place], [place] [address] (Wo rk) Social History [...] How often do you attend scientologist or scientologist Never 01/31/2019 services? 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/2018 2:20 PM ACCOUNTS RECEIVABLE EXECUTIVE documented as of this encounter Plan of Treatment Not on filedocumented as of this encounter Visit Diagnoses Not on filedocumented in this encounter Additional Health Concerns Assessment Noted Time PHQ-9 Depression Total Score: 18 06/21/2009 11:24 AM C DT documented as of this encounter
--- OUTSIDE RECORDS SUMMARY | 2022-01-11 09:46 | XMS_ITS | Encounter Summary ---
:1985 Author Organization [facility] Address [address] [place] [address] Care Team Providers Name Role Phone Unavailable Primary Care Provider Unavailable Encounter Details Date Type Department Care Team Description 12/24/2014 Hospital Encounter HX NO MAPPING Kandi Alberts, TATY, C.N.P. [address] [place], [place] [phone] (Wo rk) Social History [...] How often do you attend yazidi or scientology Never 01/31/2019 services? 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/2018 2:20 PM NEWSPAPER PHOTOJOURNALIST documented as of this encounter Miscellaneous Notes Miscellaneous - Conversion, Historical Provider Ser - 12/24/2014 11:59 PM NEWSPAPER PHOTOJOURNALIST Coding Summary-Paper Based CODING DATE: 01/07/2015 FINAL [facility] STATUS: * Discharged to Home or Self [...] JOAQUIN Date Saved: 01/07/2015 05:21 pm Source: [employer] Document Id: [id number] documented in this encounter Plan of Treatment Not on filedocumented as of this encounter Visit Diagnoses Not on filedocumented in this encounter Additional Health Concerns Assessment Noted Time PHQ-9 Depression Total Score: 18 12/24/2014 2:32 PM CS T documented as of this encounter
--- OUTSIDE RECORDS SUMMARY | 2022-01-11 09:46 | XMS_ITS | Encounter Summary ---
:1985 Author Organization [facility] Address [address] [place] [address] Care Team Providers Name Role Phone Unavailable [...] at Date Recorded Female 01/11/2018 2:20 PM WATER RECLAMATION SYSTEMS OPERATOR documented as of this encounter Plan of Treatment Not on filedocumented as of this encounter Visit Diagnoses Not on filedocumented in this encounter Additional Health Concerns Assessment Noted Time PHQ-9 Depression Total Score: 18 06/21/2009 11:24 AM C DT documented as of this encounter
--- OUTSIDE RECORDS SUMMARY | 2022-01-11 09:46 | XMS_ITS | Encounter Summary ---
:1985 Author Organization [facility] Address [address] [place] [address] Care Team Providers Name Role Phone Unavailable Primary Care Provider Unavailable Encounter Details Date Type Department Care Team Description 01/20/2015 Hospital Encounter HX [facility] FB[facility] FAMILYPRA Michelle Alberts, TATY, C.N.P. [address] [place] [address] (Wo rk) Social History [...] How often do you attend shinto or buddhism Never 01/31/2019 services? 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/2018 2:20 PM DRILLING FIELD OPERATOR documented as of this encounter Last Filed Vital Signs Vital Sign Reading Time Taken Comments Blood Pressure 112/74 01/20/2015 2:27 PM DRILLING FIELD OPERATOR Pulse 68 01/20/2015 2:27 PM DRILLING FIELD OPERATOR Temperature - - Respiratory Rate 20 01/20/2015 2:27 PM DRILLING FIELD OPERATOR Oxygen Saturation - - Inhaled Oxygen Concentration - - Weight 64.5 kg (142 lb 3.2 oz) 01/20/2015 2:27 PM DRILLING FIELD OPERATOR Height 162 cm (5' 3.78) 01/20/2015 2:27 PM DRILLING FIELD OPERATOR Body Mass Index 24.58 01/20/2015 2:27 PM DRILLING FIELD OPERATOR documented in this encounter Progress Notes [...] must include the following: Cholesterol, serum, total ([address]) Lipoprotein, direct measurement, high density cholesterol (HDL cholesterol) ([address]) Triglycerides (78946). (09/05/2007), section - at term (2007), D&C [...] Ordered: OV Est Pt Level 4 - 76964 - 25 min Pain Low Back (LBP) Chronic Stable on gabapentin. Continue PT. Ordered: OV Est Pt Level 4 - 19556 - 25 min Orders: venlafaxine, 150 mg = 1 cap(s), PO, Daily, do not crush or chew with food, # 30 cap(s), 11 Refill(s), Maintenance, Pharmacy: [id number], Does not need refill today. Return Visit [facility] 30 Min Electronically Signed By: MICHAEL ALBERTS CNP On: 01/20/2015 02:48 PM Source: [facility] [employer]CHART Document Id: [id number] LING FIELD OPERATOR documented in this encounter Nursing Notes [...] medications. Your doctor can tell you more. [place] If you have bipolar disorder, you may take a medication called lithium. This medication helps even out your mood. Possible side effects are weight gain, trembling, and nausea. If You Are Taking MAOIs, Avoid: Beans Aged cheese Chocolate Red wine Most cold medications Certain medications (ask your doctor) To Reduce the Risk of [place] Poisoning: Take only the prescribed amount of lithium. Drink plenty offluids other than coffee, tea, and soda. Limit salt in your diet. If You Have Side Effects The side effects of antidepressants are usually mild. But if you have troubling side effects, call your doctor. Changing the dosage or type of medication may help. Never stop taking medications on yourown. ?? [phone] [facility], [address] [place] [address], [place] [address]. All rights reserved. This information is not intended as a substitute for professional medical care. Always follow your healthcare professional's instructions. This document has images extracted. Please consider using [employer] for all your patient education needs. Source: [facility] POWERCHART Document Id: [id number] LING FIELD OPERATOR documented in this encounter Miscellaneous Notes Miscellaneous - Thais Yi L.P.N. - 01/20/2015 2:44 PM CST PHQ-9 PHQ-9 Entered On: 01/20/2015 14:44 DRILLING FIELD OPERATOR Performed On: 01/20/2015 14:44 DRILLING FIELD OPERATOR by THAIS YI LPN PHQ-9 Little [...] difficult THAIS YI LPN - 01/20/2015 14:44 DRILLING FIELD OPERATOR Source: [facility] POWERCHART Document Id: [id number] DRILLING FIELD OPERATOR!13 LING FIELD OPERATOR Miscellaneous - Michael Alberts APRN, C.N.P. - 01/20/2015 2:36 PM CST Ambulatory Patient Summary [id number] [place], [place] [phone] Visit Information Name: WENDI ALEXANDER [facility] Number: [id number] Current Date: 01/20/2015 14:36:08 Physicians [...] food This is a CHANGE Routed to [address] [address] Stop Taking the Following Medications: Medication list [...] medications. Your doctor can tell you more. [place] If you have bipolar disorder, you may take a medication called lithium. This medication helps even out your mood. Possible side effects are weight gain, trembling, and nausea. If You Are Taking MAOIs, Avoid: Beans Aged cheese Chocolate Red wine Most cold medications Certain medications (ask your doctor) To Reduce the Risk of [place] Poisoning: Take only the prescribed amount of lithium. Drink plenty offluids other than coffee, tea, and soda. Limit salt in your diet. If You Have Side Effects The side effects of antidepressants are usually mild. But if you have troubling side effects, call your doctor. Changing the dosage or type of medication may help. Never stop taking medications on yourown. ?? [phone] Kyle Kenny, [address] [place] [address]. All rights reserved. This information is not [...] if you dont have one. Go to [email or web address] [email or web address] and click on Create Your Account. Then, follow the directions to complete the online form. Youll be asked for your [facility] number which you can find at the top of this document. Your Goals/Additional instructions: This document has images extracted. Please consider using [employer] for all your patient education needs. Source: [facility] POWERCHART Document Id: [id number] LING FIELD OPERATOR Miscellaneous - Michael Alberts APRN, C.N.P. - 01/20/2015 2:36 PM CST Ambulatory Discharge Medication List [address] [id number] Visit Information Name: CATHERINEWENDI [facility] Number: [id number] Visit Date: 01/20/2015 14:36:07 Attending [...] food This [place] [address] Stop Taking the Following Medications: Medication list [...] of emergency. Electronically Signed By: MICHAEL ALBERTS HOME HEALTH NURSE Signed On:20-JAN-2015 14:35:37 Additional Information: Source: [facility] POWERCHART Document Id: [id number] LING FIELD OPERATOR Miscellaneous - Thais Yi L.PGordonN. - 01/20/2015 2:27 PM CST Adult Building Operator Intake/History Adult Building Operator Intake/History Entered On: 01/20/2015 14:29 DRILLING FIELD OPERATOR Performed On: 01/20/2015 14:27 DRILLING FIELD OPERATOR by THAIS YI LPN Intake Chief [...] kg/m2 CALETHAIS Ortega MICK - 01/20/2015 14:27 DRILLING FIELD OPERATOR General Info Information Given By : Patient Preferred Communication Mode : Verbal Languages : Danish Is Patient Female and 13-50 no hysterectomy : Yes Status : Patient denies Are you ? : No KDTHAIS MICK - 01/20/2015 14:27 DRILLING FIELD OPERATOR Subjective Pain Symptoms : Yes KDELDONTHAIS ANGELA LPN - 01/20/2015 14:27 DRILLING FIELD OPERATOR Pain Scale Pain Scale Verbal 0-10 : Open THAIS YI MICK - 01/20/2015 14:27 DRILLING FIELD OPERATOR Pain Pain Assessment Grid Pain 1 Location : Lower back Intensity : 10 Time Pattern : Constant LAMINEMAXIMINOTHAIS Ortega ANGELA BARTON - 01/20/2015 14:27 DRILLING FIELD OPERATOR Dependent Habits Exposure to Tobacco Smoke : Other: Never Smoking Status : Never smoker Tobacco 2A : No KDELDONTHAISBERNARDINO MILLER LPN - 01/20/2015 14:27 DRILLING FIELD OPERATOR Caffeine Use Grid Caffeine Use : Current Type : Energy drinks Frequency : Weekly Amount : 1 ELDON YIBERNARDINO MILLER LPN - 01/20/2015 14:27 DRILLING FIELD OPERATOR Source: [employer] Document Id: [id number] DRILLING FIELD OPERATOR!45 LING FIELD OPERATOR documented in this encounter Plan of Treatment Not on filedocumented as of this encounter Visit Diagnoses Not on filedocumented in this encounter Additional Health Concerns Assessment Noted Time PHQ-9 Depression Total Score: 19 01/20/2015 2:44 PM CS T documented as of this encounter
--- OUTSIDE RECORDS SUMMARY | 2022-01-11 09:46 | XMS_ITS | Encounter Summary ---
:1985 Author Organization [facility] Address [address] [place] [address] Care Team Providers Name Role Phone Unavailable Primary Care Provider Unavailable Encounter Details Date Type Department Care Team Description 05/21/2012 Hospital Encounter HX [facility] Shayne Woody M.D. [address] [place], [place] [phone] (Wo rk) Social History [...] How often do you attend jainism or protestant Never 01/31/2019 services? 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/2018 2:20 PM INFORMATION SECURITY MANAGER documented as of this encounter Last [...] Body Mass Index 22.31 02/12/2012 1:41 PM INFORMATION SECURITY MANAGER documented in this encounter Progress Notes Emmy Shannon M.D. - 05/21/2012 3:15 PM CDT [id number] CHIEF COMPLAINT/REASON FOR VISIT Nausea and abdominal [...] SHANNON MD On: 05/23/2012 01:35 PM Source: [facility] MHSDOLBEYNONRADSYS Document Id: [id number] documented in this encounter Miscellaneous Notes Miscellaneous [...] 05 August 2012 10:03:00 CDT Submitted: Order:hydrocodone-acetaminophen (Aguilar 5 mg-325 mg oral tablet) 1 tab(s) PO q4hr Qty: 30 tab(s) Refills: 1 Substitutions Allowed PRN Pain Don't Print - called to pharmacy (Rx) No more than 4,000mg acetaminophen/24hrs Signed by EMILY GOMEZ MD From: TERESA SHEFIFELD To: EMILY GOMEZ MD; Sent: 08/05/2012 09:13:40 CDT Subject: Medication Refill Msg Caller is: ( ) Patient ( ) Mother ( ) Father ( ) Spouse ( ) Daughter ( ) Son ( ) Pharmacy ( ) Other: Provider: [facility]acy: [facility] fax# [phone] Name of Medications Needing Refill: Aguilar 5/325mg tab - called patient, states she has been working a lot of overtime and having incisional pain from lifting at work. 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 - 05/21/2012 4:21 PM CDT [place] [address] Visit Information Name: WENDI ODONNELL [facility] Number: [id number] Visit Date: 05/21/2012 16:21:15 Attending [...] your provider for clarification. Additional Information: Source: [facility] POWERCHART Document Id: [id number] Ori - Emmy Shannon M.D. - 05/21/2012 4:21 PM CDT [place] [address] Visit Information Name: WENDI ODONNELL [facility] Number: [id number] Visit Date: 05/21/2012 16:21:15 Attending [...] your provider for clarification. Additional Information: Source: [facility] POWERCHART Document Id: [id number] Ori - Emmy Shannon M.D. - 05/21/2012 [...] SHANNON MD - 05/21/2012 15:52 CDT Source: [facility] Document Id: [id number] CDT!5 Miscellaneous - Chika Napier RTyler - 05/21/2012 3:23 PM CDT Adult Senior Linux Systems Engineer Intake/History Adult Senior Linux Systems Engineer Intake/History Entered On: 05/21/2012 15:24 CDT Performed [...] 05/21/2012 15:23 CDT General Info Languages : Mauritanian CHIKA LEUNG - 05/21/2012 15:23 CDT Subjective Pain Symptoms : No CHIKA LEUNG - 05/21/2012 15:23 CDT Dependent Habits Tobacco Use/Currently Using : No Smoking Status : Unknown if ever smoke CHIKA LEUNG - 05/21/2012 15:23 CDT Caffeine Use Grid Caffeine Use : Current Type : Energy drinks Frequency : Weekly Amount : 1 CHIKA LEUNG - 05/21/2012 15:23 CDT Source: [facility] Document Id: [id number] CDT!24 documented in this encounter Plan of Treatment Not on filedocumented as of this encounter Visit Diagnoses Not on filedocumented in this encounter Additional Health Concerns Assessment Noted Time PHQ-9 Depression Total Score: 18 06/21/2009 11:24 AM C DT documented as of this encounter
--- OUTSIDE RECORDS SUMMARY | 2022-01-11 09:46 | XMS_ITS | Encounter Summary ---
:1985 Author Organization [facility] Address [address] [place] [address] Care Team Providers Name Role Phone Unavailable Primary Care Provider Unavailable Encounter Details Date Type Department Care Team Description 03/04/2012 Hospital Encounter HX [facility] Shayne Woody M.D. [address] [place], [place] [phone] (Wo rk) Social History [...] How often do you attend catholic or evangelical Never 01/31/2019 services? Do you [...] Date Recorded Female 01/11/2018 2:20 PM HELP DESK MANAGER documented as of this encounter Last Filed Vital Signs Vital Sign Reading Time Taken Comments Blood Pressure 102/58 03/04/2012 10:18 AM HELP DESK MANAGER Pulse - - Temperature - - Respiratory Rate - - Oxygen Saturation - - Inhaled Oxygen Concentration - - Weight 60.8 kg (134 lb 0.6 oz) 03/04/2012 10:18 AM HELP DESK MANAGER Height - - Body Mass Index 24.35 02/12/2012 1:41 PM HELP DESK MANAGER documented in this encounter Progress Notes Emmy Shannon M.D. - 03/04/2012 10:11 AM CST [id number] CHIEF COMPLAINT/REASON FOR VISIT OB followup HISTORY [...] SHANNON MD On: 03/05/2012 06:28 PM Source: [facility] MHSDOLBEYNONRADSYS Document Id: [id number] DESK MANAGER documented in this encounter Procedure Notes Conversion, Historical Provider Ser - 03/04/2012 10:24 AM CST Urine Dipstick Urine Dipstick Entered On: 03/04/2012 10:24 HELP DESK MANAGER Performed On: 03/04/2012 10:24 HELP DESK MANAGER by MARKUS FREDERICK LPN Urine Dipstick UA Protein POC : Trace UA Glucose POC : Negative MARKUS FREDERICK LPN - 03/04/2012 10:24 HELP DESK MANAGER Source: [facility] POWERCHART Document Id: [id number] documented in this encounter Miscellaneous Notes Miscellaneous - Emmy Shannon M.D. - 03/08/2012 12:17 PM CST Results Notification Document Contains Addenda Addendum by ZURDO GONZALEZ on 08 March 2012 17:06:22 HELP DESK MANAGER added to chart From: EMMY SHANNON MD To: ZURDO GONZALEZ Sent: 03/08/2012 12:17:30 HELP DESK MANAGER ! Show up: 03/08/2012 18:17:30 [facility] Subject: Results Notification Actions: Note to Nurse Source: [facility] POWERCHART Document Id: [id number] Emmy Sapp M.D. - 03/04/2012 1:23 PM CST Ambulatory Patient Summary [address] [address] Visit Information Name: WENDI ODONNELL [facility] Number: [id number] Visit Date: 03/04/2012 13:23:51 Attending [...] your provider for clarification. Additional Information: Source: [facility] POWERCHART Document Id: [id number] DESK MANAGER Emmy Sapp M.D. - 03/04/2012 1:23 PM CST Ambulatory Depart Summary [address] [address] Visit Information Name: WENDI ODONNELL [facility] Number: [id number] Visit Date: 03/04/2012 13:23:50 Attending [...] your provider for clarification. Additional Information: Source: [facility] POWERCHART Document Id: [id number] DESK MANAGER Miscellaneous - Conversion, Historical Provider Ser - 03/04/2012 10:18 AM HELP DESK MANAGER Adult Rn Case Management Intake/History Adult Rn Case Management Intake/History Entered On: 03/04/2012 10:19 HELP DESK MANAGER Performed On: 03/04/2012 10:18 HELP DESK MANAGER by MARKUS FREDERICK LPN Intake Chief Complaint [...] 60.80kg MARKUS FREDERICK LPN - 03/04/2012 10:18 HELP DESK MANAGER Subjective Pain Symptoms : No MARKUS FREDERICK LPN - 03/04/2012 10:18 HELP DESK MANAGER Dependent Habits Tobacco Use/Currently Using : No Smoking Status : Unknown if ever smoke MARKUS FREDERICK LPN - 03/04/2012 10:18 HELP DESK MANAGER Caffeine Use Grid Caffeine Use : Current Type : Energy drinks Frequency : Weekly Amount : 1 MARKUS FREDERICK MICK - 03/04/2012 10:18 HELP DESK MANAGER Allergy Allergies (Active) NKA Estimated Onset Date: Unspecified ; Created By: SOTERO COLEMAN LPN; Reaction Status: Active ; Category: Drug ; Substance: NKA ; Type: Allergy ; Updated By: SOTERO COLEMAN LPN; Source: Family ; Reviewed Date: 03/04/2012 10:18 HELP DESK MANAGER Source: [facility] POWERCHART Document Id: [id number] documented in this encounter Plan of Treatment Not on filedocumented as of this encounter Procedures Procedure Name Priority Date/Time Associated Diagnosis Comme nts GRP B STREP (S. Routine 03/04/2012 10:50 AM Resul ts for this AGALACTIAE) CULTURE HELP DESK MANAGER procedur e are in the results section. BACTERIAL CULTURE, Routine 03/04/2012 10:50 AM Re sults for this AEROBIC, URINE HELP DESK MANAGER procedure are in the results section. HX UA GLUCOSE POC Routine 03/04/2012 10:24 AM Res ults for this HELP DESK MANAGER procedure are i n the results section. HX UA GLUCOSE POC Routine 03/04/2012 10:24 AM Res ults for this HELP DESK MANAGER procedure are i n the results section. DIPSTICK, POCT, U Routine 03/04/2012 10:24 AM Res ults for this (DIPC1) HELP DESK MANAGER procedure are i n the results section. DIPSTICK, POCT, U Routine 03/04/2012 10:24 AM Res ults for this (DIPC1) HELP DESK MANAGER procedure are i n the results section. documented in this encounter Results Bacterial Culture, Aerobic, Urine (03/04/2012 10:50 AM HELP DESK MANAGER) [facility] gist Method Time Signature Bacterial POWERCHART Culture, Aerobic, Urine HXFinal See POWERCHART scanned/paper report. Test performed at [facility]. Specimen (Source) Anatomical Collection Method Collection Time Re ceived Time Location / / Volume Laterality Urine, Clean 03/04/2012 10:50 Catch AM HELP DESK MANAGER Emmy Shannon M.D. LAB MICROBIOLOGY - GENERAL O RDERABLES Performing Organization Address City/State/ZIP Code Phon e Number POWERCHART Grp B Strep (S. Agalactiae) Culture (03/04/2012 10:50 AM HELP DESK MANAGER) Patholo gist Method Time Signature Grp B Strep POWERCHART (S. agalactiae) Culture HXFinal See POWERCHART scanned/paper report. Test performed at [facility]. Specimen (Source) Anatomical Collection Method Collection Time Re ceived Time Location / / Volume Laterality Vaginal/Rectum 03/04/2012 10:50 AM HELP DESK MANAGER Emmy Shannon M.D. LAB MICROBIOLOGY - GENERAL O RDERABLES Performing Organization Address City/State/ZIP Code Phon e Number POWERCHART HX UA GLUCOSE POC (03/04/2012 10:24 AM HELP DESK MANAGER) P athologist Signature Glucose, POCT, Negative POWERCHART U Specimen (Source) Anatomical Collection Method Collection Time Re ceived Time Location / / Volume Laterality 03/04/2012 10:24 AM HELP DESK MANAGER Historical Provider LAB HISTORICAL ORDERS Performing Organization Address [facility] Code Phon e Number POWERCHART Dipstick, POCT, Urine (lab) (03/04/2012 10:24 AM HELP DESK MANAGER) P athologist Signature Protein, POCT, Trace POWERCHART U Specimen (Source) Anatomical Collection Method Collection Time Re ceived Time Location / / Volume Laterality 03/04/2012 10:24 AM HELP DESK MANAGER Historical Provider LAB POCT ORDERABLES - DEVICE Performing Organization Address [facility] Code Phon e Number POWERCHART HX UA GLUCOSE POC (03/04/2012 10:24 AM HELP DESK MANAGER) P athologist Signature Glucose, POCT, Negative POWERCHART U Specimen (Source) Anatomical Collection Method Collection Time Re ceived Time Location / / Volume Laterality 03/04/2012 10:24 AM HELP DESK MANAGER Historical Provider LAB HISTORICAL ORDERS Performing Organization Address City/State/ZIP Code Phon e Number POWERCHART Dipstick, POCT, Urine (lab) (03/04/2012 10:24 AM HELP DESK MANAGER) P athologist Signature Protein, POCT, Trace POWERCHART U Specimen (Source) Anatomical Collection Method Collection Time Re ceived Time Location / / Volume Laterality 03/04/2012 10:24 AM HELP DESK MANAGER Historical Provider LAB POCT ORDERABLES - DEVICE Performing Organization Address City/State/ZIP Code Phon e Number POWERCHART documented in this encounter Visit Diagnoses Not on filedocumented in this encounter Additional Health Concerns Assessment Noted Time PHQ-9 Depression Total Score: 18 06/21/2009 11:24 AM C DT documented as of this encounter
--- OUTSIDE RECORDS SUMMARY | 2022-01-11 09:46 | XMS_ITS | Encounter Summary ---
:1985 Author Organization [facility] Address [address] [place] [address] Care Team Providers Name Role Phone Unavailable Primary Care Provider Unavailable Encounter Details Date Type Department Care Team Description 10/02/2011 Hospital Encounter HX NO MAPPING Kyler Pantoja III, M.D. (Skip), M.P.H. [address] [place], [place] [address] (Wo rk) Social History [...] How often do you attend samaritan or jehovah's witness Never 01/31/2019 services? Do [...] Date Recorded Female 01/11/2018 2:20 PM ANIMAL CYTOLOGIST documented as of this encounter Plan of Treatment Not on filedocumented as of this encounter Visit Diagnoses Not on filedocumented in this encounter Additional Health Concerns Assessment Noted Time PHQ-9 Depression Total Score: 18 06/21/2009 11:24 AM C DT documented as of this encounter
--- OUTSIDE RECORDS SUMMARY | 2022-01-11 09:46 | XMS_ITS | Encounter Summary ---
:1985 Author Organization [facility] Address [address] [place] [address] Care Team Providers Name Role Phone Unavailable Primary Care Provider Unavailable Encounter Details Date Type Department Care Team Description 08/19/2013 Hospital Encounter HX NO MAPPING Jef Casiano Jr., M.D. [address] [place], [place] [phone] (Wo rk) Social History [...] How often do you attend hinduism or baptism Never 01/31/2019 services? 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
--- OUTSIDE RECORDS SUMMARY | 2022-01-11 09:47 | XMS_ITS | Encounter Summary ---
:1985 Author Organization [facility] Address [address] [place] [address] Care Team Providers Name Role Phone Unavailable Primary Care Provider Unavailable Encounter Details Date Type Department Care Team Description 06/21/2009 Hospital Encounter HX [facility] FBHB FAMILYPRA Michelle Hankins, TATY, C.N.P. [address] [place] [address] (Wo rk) Social History Tobacco [...] How often do you attend synagogue or oriental orthodox Never 01/31/2019 services? 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 - 06/21/2009 12:00 AM CDT [id number] IMPRESSION/REPORT/PLAN 1. Depression. Strongly encouraged her to [...] No suicidality. SJM/clf Signed Michael Hankins, MSN, METAL BUGGY OPERATOR, CDE Family Nurse Practitioner Electronically Signed By:MICHAEL HANKINS CNP On 06/22/2009 03:42 PM Source: [facility] MHSDOLBEYNONRADSYS Document Id: [id number] documented in this encounter Miscellaneous Notes Miscellaneous - Michael Hankins APRN, C.N.P. - 06/21/2009 11:53 AM CDT Ambulatory Depart Summary [address] [address] Visit Information Name: WENDI ALEXANDER Current Date: [...] to the patient and/or family, guardian/caregiver. Source: [facility] Pharmalink Document Id: [id number] Electronically signed by [facility] Surgeryadvis Senior Training And Development Rep [id number] at 07/17/2016 6:50 AM CDT Miscellaneous - Michael Hankins APRN, C.N.P. - 06/21/2009 11:24 AM CDT PHQ-9 PHQ-9 Entered On: 06/21/2009 11:26 CDT Performed On: 06/21/2009 11:24 CDT by MICHAEL HANKINS METAL BUGGY OPERATOR PHQ-9 Little interest or pleasure in doing [...] dealing with others: Very difficult MICHAEL HANKINS METAL BUGGY OPERATOR - 06/21/2009 11:24 CDT Source: [facility] Pharmalink Document Id: [id number] CDT!14 Miscellaneous - Jaquelin Sauceda Provider Ser - 06/21/2009 11:06 AM CDT Adult Web Press Operator Assistant Intake/History Document Has Been Updated Adult Web Press Operator Assistant Intake/History Entered On: 06/21/2009 11:07 CDT Performed On: 06/21/2009 11:06 CDT by SOTERO COLEMAN LPN Intake Temperature Oral: 37.0DegC(Converted to: 98.6DegF) Chief Complaint: recheck MICHAEL HANKINS METAL BUGGY OPERATOR - 06/21/2009 11:13 CDT Peripheral Pulse Rate: 80bpm Systolic Blood Pressure: 106mmHg Diastolic Blood Pressure: 60mmHg NIBP Mean: 75mmHg BP Location: Left upper extremity Actual Weight: 50.500kg(Converted to: 111.333lb) Dosing Weight Clinic: 50.50kg SOTERO COLEMAN LPN - 06/21/2009 11:06 CDT Subjective Pain Symptoms: No SOTERO COLEMAN LPN - 06/21/2009 11:06 CDT Dependent Habits Alcohol Use: Yes MICHAEL HANKINS METAL BUGGY OPERATOR - 06/21/2009 11:13 CDT Caffeine Use Grid [...] High Blood Pressure: Mother, Grandparents MICHAEL HANKINS METAL BUGGY OPERATOR - 06/21/2009 11:13 CDT Health History II Endocrine/Metabolic Past Med Hx Grid Diabetes: Mother, Grandparents MICHAEL HANKINS [facility] - 06/21/2009 11:13 CDT Psychiatric Past Medical History Grid Depression: Self, Mother, Sibling MICHAEL HANKINS [facility] - 06/21/2009 11:13 CDT Oncologic Past Medical History Grid Prostate Cancer: Grandparents MICHAEL HANKINS [facility] - 06/21/2009 11:13 CDT Source: [facility] POWERCHART Document Id: [id number] CDT!22 documented in this encounter Plan of Treatment Not on filedocumented as of this encounter Visit Diagnoses Not on filedocumented in this encounter Additional Health Concerns Assessment Noted Time PHQ-9 Depression Total Score: 18 06/21/2009 11:24 AM C DT documented as of this encounter
--- OUTSIDE RECORDS SUMMARY | 2022-01-11 09:47 | XMS_ITS | Encounter Summary ---
:[address] [facility] Address [address] [place] [address] Care Team Providers Name Role Phone Unavailable Primary Care Provider Unavailable Encounter Details Date Type Department Care Team Description 08/25/2009 Hospital Encounter HX [facility] Navi Major M.D. [address], [place] [address] (Wo rk) Social History Tobacco [...] How often do you attend orthodoxy or faith Never 01/31/2019 services? 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/2018 2:20 PM OPTICAL GLASS INSPECTOR documented as of this encounter Progress Notes Uche Barakat M.D. - 08/25/2009 12:00 AM CDT [id number] IMPRESSION/REPORT/PLAN ThinPrep is obtained. We will see [...] BARAKAT MD On 08/26/2009 02:40 PM Source: [facility] MHSDOLBEYNONRADSYS Document Id: [id number] documented in this encounter Miscellaneous Notes Miscellaneous [...] Patient ( ) ( ) Call for Hr Administrator ( ) Follow up on Results ( x ) Other: send letter PROVIDER: ( ) Call Physician ( ) Call Pharmacist ( ) Call Lab ( ) Other: Special Instructions: Comments: Source: [facility] POWERCHART Document Id: [id number] Miscellaneous - Uche Barakat M.D. - 08/31/2009 12:00 AM CDT [id number] August 31, 2009 Wendi Belle [address] [place], [place] [id number] Dear Wendi, I just want to touch [...] our office at your earliest convenience at [phone]. Sincerely, Uche Barakat M.D. Obstetrics & Gynecology BDB/mgd Source: [facility] MHSDOLBEYNONRADSYS Document Id: [id number] Miscellaneous - Conversion, Historical Provider Ser - 08/25/2009 9:33 AM CDT Adult Push Bench Operator Helper Intake/History Adult Push Bench Operator Helper Intake/History Entered On: 08/25/2009 9:34 CDT Performed [...] ; Reviewed Date: 08/25/2009 9:32 CDT Source: [facility] POWERCHART Document Id: [id number] CDT!22 documented in this encounter Plan of [...] Thin Prep, Pap (08/25/2009 9:43 AM CDT) [facility] Method Time Signature Interpretation Performed POWERCHART Comment: Test Performed by: [facility] Dpt of Lab Med and Pathology [address] [place], [place] [id number] Nuclear Reactor Technician: Delano bella III, M.D. Specimen Anatomical Collection Method Collection Time Receive d Time (Source) Location / / Volume Laterality Cervix/Endocervi 08/25/2009 9:43 AM 08/25 6:45 x CDT PM CDT Historical Provider LAB HISTORICAL ORDERS Performing Organization Address City/State/ZIP Code Phon e Number POWERCHART ThinPrep Screen HPV Reflex (08/25/2009 9:43 AM CDT) [facility] Method Time Signature Interpretation [id number] POWERCHART HXThPrep Scrn See Comment POWERCHART [facility] Comment: A. ??ThinPrep Pap Test Screen (Cervical/ Endocervical HPV Reflex): Satisfactory for evaluation. Squamous epithelial cell abnormality Low grade squamous intraepithelial lesio n. 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 Screened at [facility] Cytology Analysi s Office [address] [place] [id number] HXThPrep Scrn [facility] See Comment [facility] KEYEST Comment: RESULT: MASSIMO Arreola(ASC P) HXThPrep Scrn [facility] See Comment [facility] RCKRIST Comment: RESULT: 08/31/2009 13:30 Interpreted by: Nancy Arroyo M.D. Report electronically signed by Nancy Arroyo M.D. Transcribed by: [facility] ??08/31/2009 12:28:27 HX Spec [facility] See Comment POWERCHART Comment: A. ??ThinPrep Pap Test Screen (Cervical/ Endocervical HPV Reflex): Received blood tinged specimen in ThinPr ep vial. Test Performed by: [facility] Dpt of Lab Med and Pathology [address] [place] [address] Nuclear Reactor Technician: Delano bella III, M.D. Specimen (Source) Anatomical [...]
--- OUTSIDE RECORDS SUMMARY | 2022-01-11 09:47 | XMS_ITS | Encounter Summary ---
:1985 Author Organization [facility] Address [address] [place] [address] Care Team Providers Name Role Phone Unavailable Primary Care Provider Unavailable Encounter Details Date Type Department Care Team Description 10/02/2011 Hospital Encounter HX NO MAPPING Kyler Pantoja III, M.D. (Skip), M.P.H. [address] [place], [place] [address] (Wo rk) Social History [...] How often do you attend hindu or synagogue Never 01/31/2019 services? 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/2018 2:20 PM [employer] PARALEGAL documented as of this encounter Plan of Treatment Not on filedocumented as of this encounter Visit Diagnoses Not on filedocumented in this encounter Additional Health Concerns Assessment Noted Time PHQ-9 Depression Total Score: 18 06/21/2009 11:24 AM C DT documented as of this encounter
--- OUTSIDE RECORDS SUMMARY | 2022-01-11 09:47 | XMS_ITS | Encounter Summary ---
:1985 Author Organization [facility] Address [address] [place] [address] Care Team Providers Name Role Phone Unavailable Primary Care Provider Unavailable Encounter Details Date Type Department Care Team Description 09/14/2009 Hospital Encounter HX [facility] Navi Major M.D. [address], [place] [address] (Wo rk) Social History Tobacco [...] How often do you attend confucianism or baptism Never 01/31/2019 services? 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/2018 2:20 PM ELEVATOR EXAMINER AND ADJUSTER documented as of this encounter Progress Notes Uche Barakat M.D. - 09/14/2009 12:00 AM CDT [id number] IMPRESSION/REPORT/PLAN We will have her back in [...] BARAKAT MD On 09/27/2009 01:19 PM Source: [facility] MHSDOLBEYNONRADSYS Document Id: [id number] documented in this encounter Miscellaneous Notes Miscellaneous - Uche Barakat M.D. - 09/14/2009 2:06 PM CDT [place] [address] Visit Information Name: WILBERTHimaWENDI Current Date: 09/14/2009 14:06:58 Primary Care Provider: [facility] [phone] WENDI ALEXANDER has been given the following [...] family, guardian/caregiver. Source: [facility] POWERCHART Document Id: [id number] Electronically signed by Komal [facility] Athlete Marketing Agent [id number] at 07/17/2016 1:30 AM CDT Miscellaneous - Annabelle Godoy L.P.N. - 09/14/2009 2:00 PM CDT Reminder Msg Document Contains Addenda Addendum by ANNABELLE GODOY LPN on 13 January 2010 13:40:13 ELEVATOR EXAMINER AND ADJUSTER card sent From: ANNABELLE GODOY LPN To: ANNABELLE GODOY LPN; Sent: 09/14/2009 14:00:35 CDT Show up: 01/12/2010 14:00:00 ELEVATOR EXAMINER AND ADJUSTER Subject: Reminder Msg Due Date/Time: 02/25/2010 14:00:00 ELEVATOR EXAMINER AND ADJUSTER Please Remember to: send card to remind pt. to come in for 6 month recheck -pap PATIENT: last pap was 08/25/2009 ( ) Call Patient ( ) Ask Patient to ( ) ( ) Call Relative ( ) Schedule Patient ( ) ( ) Call for Case Briefer ( ) Follow up on Results ( ) Other: PROVIDER: ( ) Call Physician ( ) Call Pharmacist ( ) Call Lab ( ) Other: Special Instructions: Comments: Source: [facility] POWERCHART Document Id: [id number] Electronically signed by Komal [facility] Athlete Marketing Agent [id number] at 07/17/2016 1:30 AM CDT Miscellaneous - Annabelle Godoy L.P.N. - 09/14/2009 1:28 PM CDT Adult Clay Artist Intake/History Adult Clay Artist Intake/History Entered On: 09/14/2009 13:29 CDT Performed [...] ; Reviewed Date: 08/25/2009 9:32 CDT Source: [facility] Isoflux Document Id: [id number] documented in this encounter Plan of Treatment Not on filedocumented as of this encounter Visit Diagnoses Not on filedocumented in this encounter Additional Health Concerns Assessment Noted Time PHQ-9 Depression Total Score: 18 06/21/2009 11:24 AM C DT documented as of this encounter
--- OUTSIDE RECORDS SUMMARY | 2022-01-11 09:50 | XMS_ITS | Clinical Summary ---
:1985 Author Organization [facility] [place] [address] Care Team Providers Name Role Phone Luis A Lewis MD Primary Care Provider [phone] Ying Harris MD Unavailable Allergies Active [...] Acne. Phenyleph-Shark Apply topically to 0 Active Qri-Yjsp-Nsm affected area(s). (HEMORRHOIDAL) crea Apply to face [...] Encounters Date Type Specialty Care Team Description 12/27/2021 Telephone Sai Jovel MD L ab 12/07/2021 Transcribe Orders Ying Harris MD 12/06/2021 Telephone Phys, [place] Referral 11/22/2021 Telephone Phys, [place] Referral 11/18/2021 Transcribe Orders Mary Linda HUC from Last 3 Months Immunizations Name Administration [...] 0.6 oz pure alcoho l) EtOH abuse Alcohol Habits Answer Date Recorded How often do you have a drink containing alcohol? Not asked How many drinks containing alcohol do you have on Not asked a typical day when you are drinking? How often do you have six or more drinks on one Not asked occasion? Comment: EtOH abuse [id number] 12/05/2011 Sex Assigned at Date Recorded Not [...] age Completed 10/04/2010 18-79 Tdap Completed 06/30/2011 HIV for age 15-65 Completed 07/24/2011, 10/04/2010 Medical Devices Implanted Type Area Staffing Specialist Device Shelf Model / Identifier Expiration Date Ser ial / Lot Tha Lmbr 40x5.5mm Vitality Cvd Titoh - [id number] Spine [employer] [id number] / Implanted: Qty: 2 on 12/18/2018 by Olegario Sweeney MD at [facility] Spine / Results Not on filefrom Last 3 Months Insurance Payer Benefit Plan / Subscriber ID Effective Phone Address T ype Group Dates WC WORKERS WC WORKERS [id number]-Pres [phone] COMP COMP ent [address] [place] [address] [facility] [id number] 2013-Prese [address] [place] [address] MEDICA [place] MEDICA CHOICE [id number] 2015-Prese [address] [address] [place] [address] [employer] [id number] 2021-Pre [address] [facility] [address] [facility]/Dheeraj (Home) [place] [address] [place] [address] Vold,Wendi L Workers Comp Self 1985 [id number] [place] (Home) [facility] [place] [phone] Advance Directives Latest Code Status on File Code Status Date Activated Date Inactivated Comments Full Code 01/19/2020 8:08 PM 01/20/2020 8:50 PM Code Status Discussion: Not Discussed Full Code 12/18/2018 7:06 PM 12/20/2018 2:29 PM Full Code 08/19/2013 1:33 PM 08/19/2013 6:50 PM Full Code 10/02/2011 7:19 PM 10/05/2011 3:26 PM Care Teams Flooring Sales Manager Relationship Specialty Start Date End Date Luis A Lewis PCP - General Family Practice 03/07/21 MD Andrea [address] [place] [address] Ying Harris MD Referring Provider Obstetrics and Gynecology 11/22/21[address] [place] [address]
== END 2022-01-11 09:34 | disposition home or self-care (01) ==
PROVIDERS: PCP Family Medicine; Visit Provider Obstetrics & Gynecology
DX: O46.90 Antepartum hemorrhage, unspecified, unspecified trimester (principal); Z3A.13 13 weeks gestation of pregnancy
CPT/HCPCS: 76801; 84443; 86592; 86703; 86762; 86787; 86803; 86850; 86870; 86900; 86901; 87086; 87340

== ENCOUNTER 2022-01-11 13:15 | Outpatient (CLI) | payer BC, SELFPAY ==
[2022-01-11 11:48] LABS: Hepatitis B Surface Antigen* Negative (Negative)
[2022-01-11 11:59] LABS: HIV 1/2/P24 Combo Screen* Negative (Negative)
[2022-01-11 12:05] LABS: Hepatitis C Virus Antibody* Negative (Negative)
[2022-01-13 02:59] LABS: Rapid Plasma Reagin (RPR) Non Reactive (Non Reactive)
[2022-01-13 05:32] LABS: Rubella Antibody IgG 38.5 IU/mL
== END 2022-01-11 13:16 | disposition home or self-care (01) ==
PROVIDERS: PCP Family Medicine; Visit Provider Obstetrics & Gynecology
DX: O46.91 Antepartum hemorrhage, unspecified, first trimester (principal); Z3A.12 12 weeks gestation of pregnancy
CPT/HCPCS: 84443; 86592; 86703; 86762; 86787; 86803; 86850; 86870; 86880; 86900; 86901; 87086; 87340

== ENCOUNTER 2022-02-15 14:25 | Outpatient (CLI) | payer BC, SELFPAY | END 2022-02-15 14:26 | disposition home or self-care (01) | PROVIDERS: PCP Family Medicine; Visit Provider Obstetrics & Gynecology | DX: O20.9 Hemorrhage in early pregnancy, unspecified (principal); Z83.2 Family history of diseases of the blood and blood-forming organs and certain disorders involving the immune mechanism; F33.0 Major depressive disorder, recurrent, mild; F41.1 Generalized anxiety disorder; F60.3 Borderline personality disorder; L71.9 Rosacea, unspecified; O28.9 Unspecified abnormal findings on antenatal screening of mother; Z34.90 Encounter for supervision of normal pregnancy, unspecified, unspecified trimester | CPT/HCPCS: 81241; 81420; 85461; J2791 ==

== ENCOUNTER 2022-03-01 13:44 | Outpatient (CLI) | payer BC, SELFPAY | END 2022-03-01 13:45 | disposition home or self-care (01) | LOC: US 13:45 | PROVIDERS: PCP Family Medicine; Visit Provider Pediatrics Neonatal-Perinatal Medicine | DX: O09.522 Supervision of elderly multigravida, second trimester (principal); Z3A.19 19 weeks gestation of pregnancy | CPT/HCPCS: 76811 ==

== ENCOUNTER 2024-07-01 09:41 | Outpatient (CLI) | payer BC, SELFPAY | END 2024-07-01 09:42 | disposition home or self-care (01) | PROVIDERS: PCP Family Medicine; Visit Provider Family Medicine | DX: M54.16 Radiculopathy, lumbar region (principal); M51.369 Other intervertebral disc degeneration, lumbar region without mention of lumbar back pain or lower extremity pain | CPT/HCPCS: 64483; J1100; Q9966 ==